=== PATIENT | male | born 1960 | race Caucasian/White ===

== ENCOUNTER 2016-11-15 08:43 | Inpatient (IN) | payer OTHER ==
[~2016-11-15] VITALS: Ht 203.2 cm; Wt 170.2 kg
[2016-11-15] MEDS ORDERED: ALBUTEROL 0.083% NEBU SOLN 3 ML VIAL INH STA (09:38)
[2016-11-15] MEDS ORDERED: ALBUT/IPRATROP 3MG/0.5MG NEB 3 ML VIAL INH STA (09:50)
[2016-11-15] MEDS ORDERED: LVMI SC (10:02)
[2016-11-15] MEDS ORDERED: NXM/40 PO (10:02)
[2016-11-15] MEDS ORDERED: LISI20TA3 PO (10:02)
[2016-11-15] MEDS ORDERED: SUCR1TAB29 PO (10:02)
[2016-11-15] MEDS ORDERED: APIX1TAB PO (10:02)
[2016-11-15] MEDS ORDERED: ASPI81TA28 PO (10:02)
[2016-11-15] MEDS ORDERED: NIFE60TA57 PO (10:02)
[2016-11-15] MEDS ORDERED: MELATAB2 PO (10:02)
[2016-11-15] MEDS ORDERED: POTA10CA28 PO (10:02)
[2016-11-15] MEDS ORDERED: NTRGSL/4 UT (10:02)
[2016-11-15] MEDS ORDERED: PREG1CAP70 PO (10:02)
[2016-11-15] MEDS ORDERED: ACET30TA PO (10:02)
[2016-11-15] MEDS ORDERED: NVLGI/PEN SQ (10:02)
[2016-11-15] MEDS ORDERED: FRS/40 PO (10:02)
[2016-11-15] MEDS ORDERED: METO50TA16 PO (10:02)
[2016-11-15] MEDS ORDERED: FURO80TA63 PO (10:02)
--- NOTE | 2016-11-15 10:08 | DIAGNOSTIC IMAGING REPORT ---
CHEST ONE VIEW PORTABLE CLINICAL HISTORY: Respiratory distress COMPARISON STUDY: No previous studies for comparison. FINDINGS: The heart is enlarged. There is mild pulmonary vascular congestion. There is a left subclavian pacer/defibrillator. There is no lobar consolidation. There is no significant pleural fluid.[ IMPRESSION: Cardiomegaly and radiographic evidence of pulmonary vascular congestion. Electronically signed by: Richard Byrd M.D. 11/15/2016 10:07 AM Dictated Date/Time: 11/15/2016 10:06 AM
[2016-11-15 10:19] LABS: BASO ABS # 0.04 K/uL (0-0.2); COMPLETE YES; HEMATOCRIT 30.8 % (42-52); LYMPH % 24.6 %; LYMPH ABS # 0.99 K/uL (1.2-3.4); MEAN CELL VOLUME 84.8 fL (80-100); MEAN CORPUSCULAR HGB CONC 31.8 g/dl (32-36); MEAN PLATELET VOLUME 9.7 fL (7.4-10.4); MONO % 16.4 %; PLATELET COUNT 219 K/uL (130-400); RED BLOOD COUNT 3.63 M/uL (4.7-6.1); WHITE BLOOD COUNT 4.02 K/uL (4.8-10.8)
[2016-11-15 10:29] LABS: INR 1.1 (0.9-1.1); PARTIAL THROMBOPLASTIN RATIO 1.2; PROTHROMBIN TIME (PATIENT) 11.8 SECONDS (9.0-12.0)
[2016-11-15 10:31] LABS: ALT/SGPT 13 U/L (12-78); BLOOD UREA NITROGEN 67 mg/dl (7-18); BUN/CREATININE RATIO 26.7 (10-20); CALCIUM 8.2 mg/dl (8.5-10.1); CARBON DIOXIDE 25 mmol/L (21-32); CHLORIDE 102 mmol/L (98-107); GLUCOSE 93 mg/dl (70-99); POTASSIUM 4.2 mmol/L (3.5-5.1); SODIUM 137 mmol/L (136-145)
[2016-11-15 10:36] LABS: ALB/GLOB RATIO 0.5 (0.9-2); ALKALINE PHOSPHATASE 151 U/L (45-117); AST/SGOT 20 U/L (15-37)
[2016-11-15 11:49] LABS: VEN BLD GAS O2 SATURATION 88.1 %; VEN BLOOD GAS BASE EXCESS 0.1 mmol/L
--- NOTE | 2016-11-15 12:35 | DIAGNOSTIC IMAGING REPORT ---
BILATERAL LOWER EXTREMITY VENOUS DOPPLER HISTORY: Bilateral leg swelling COMPARISON STUDY: None. FINDINGS: Near occlusive thrombus seen within the right common femoral and right superficial femoral veins. The right popliteal vein appears patent. Broken flow identified within the right posterior tibial and peroneal vein suggesting additional sites of thrombus. No DVT within the left lower extremity. IMPRESSION: 1. Right lower extremity DVT as described above. 2. No left lower extremity DVT. Electronically signed by: Kike Shelton M.D. 11/15/2016 12:33 PM Dictated Date/Time: 11/15/2016 12:32 PM
[2016-11-15] MEDS ORDERED: LIDOCAINE HCL 2% JELLY 30 ML TUBE EXT ONE (12:57)
[2016-11-15] MEDS ORDERED: ACETAMINOPHEN 325 MG TAB PO PRN (13:00)
[2016-11-15] MEDS ORDERED: PNEUMOCOCCAL POLYSACCHARIDES 25 MCG/0.5 ML VIAL/SYR IM. ONE (13:00)
[2016-11-15] MEDS ORDERED: NITROGLYCERIN 0.4 MG SL PER TAB CHARGE UT PRN (13:00)
[2016-11-15] MEDS ORDERED: INFLUENZA VIRUS QUAD VACCINE 0.5 ML SYR IM. ONE (13:00)
[2016-11-15] MEDS ORDERED: MAGNESIUM HYDROXIDE SUSP 30 ML UDC PO PRN (13:00)
[2016-11-15] MEDS ORDERED: ONDANSETRON INJ 2 MG/ML 2 ML VIAL IV PRN (13:00)
[2016-11-15] MEDS ORDERED: HEPARIN 25000 UNIT/500 ML D5W ONE (13:37)
[2016-11-15] MEDS ORDERED: HEPARIN SOD 5000 UNIT/0.5 ML CARP ONE (13:37)
[2016-11-15] MEDS: SUCRALFATE 1 GM TAB PO SCH ×2 (14:00→21:44)
[2016-11-15] MEDS ORDERED: INSULIN ASPART 100 UNITS/ML 3 ML PEN SQ SCH (14:00)
[2016-11-15] MEDS ORDERED: PHARMACY GLYCEMIC MGMT CONSULT PRN (14:00)
[2016-11-15] MEDS ORDERED: GLUCOSE 10 TABS/TUBE PO PRN (14:15)
[2016-11-15] MEDS ORDERED: GLUCOSE 40% GEL 15 GM TUBE PO PRN (14:15)
[2016-11-15] MEDS ORDERED: GLUCAGON FOR INJ 1 MG VIAL SQ PRN (14:15)
[2016-11-15] MEDS ORDERED: DEXTROSE 50% 50 ML SYR IV PRN (14:15)
--- NOTE | 2016-11-15 15:04 | HISTORY & PHYSICAL EXAMINATION ---
DATE OF ADMISSION: 11/15/2016 CHIEF COMPLAINT: Shortness of breath. ADMITTING DIAGNOSES: 1. Acute on chronic systolic heart failure. 2. Extensive right leg deep venous thrombosis. HISTORY OF PRESENT ILLNESS: Mr. Perez's first visit to our facility, comes in as undersigned from [facility]. He reportedly has a significant history of chronic systolic heart failure with cardiomyopathy and AICD placement with chronic venous stasis dermatitis of the lower extremities and previous thrombophilia with a DVT and PE. He currently is on renally dosed Xarelto therapy. He presents with increased shortness of breath and found to have acute systolic heart failure and an extensive right lower extremity DVT. He is recommended for admission to help improve his symptoms. In the ER, he was having difficulty voiding and a Vivas catheter was placed. He has been at [facility] trying to improve his strength. He is a very tall gentleman, but he also has a BMI of 41. He has massive lower extremity edema with open weeping wounds, makes his ambulation challenging. PAST MEDICAL HISTORY: Asthma, heart failure as mentioned with AICD, dermatitis, chronic kidney disease stage III, ischemic cardiomyopathy, atrial fibrillation and pulmonary embolism. MEDICATIONS: Codeine as needed, Eliquis 2.5 b.i.d., aspirin 81 a day, Lipitor 40 a day, Coreg 25 b.i.d., but he has also listed metoprolol 50 b.i.d. The patient cannot tell me anything about his own medicines. Nexium 40 a day, Lasix 80 b.i.d., Levemir 35 units subQ q. 12, aspartate insulin 15 with meals, lisinopril 20 a day, nifedipine 60 a day, potassium 10 b.i.d., Lyrica 150 b.i.d., Senokot 2 tablets b.i.d., Carafate 1 gram t.i.d., ursodiol twice a day, and venlafaxine 75. SOCIAL HISTORY: The patient does have a smoking history. He quit years ago, he says. Does not drink alcohol. FAMILY HISTORY: He says is positive for mother with heart problems. He cannot provide details such as that. REVIEW OF SYSTEMS: The patient is markedly fatigued in dyskinetic. His legs are painful. There is scaliness in open areas to his legs which weep liquid. He is having suprapubic tenderness right now and he has had marked constipation for the last few days. Otherwise, 10 systems were reviewed and are negative. PHYSICAL EXAMINATION: GENERAL: He is a robust gentleman in some distress. VITAL SIGNS: His temperature is 36.5; his pulse is 61; respiration rate 20; BP 125/91; O2 sat 96% on 2 liters, it was 89% on room air. HEENT: PERRL, EOMI. Oropharynx has dry mucous membranes. NECK: Without lymphadenopathy. Trachea is midline. HEART: Distant sounds to be regular, he had no murmurs. LUNGS: Have basilar crackles, which are at the very bases, they do clear with deep inspiration. ABDOMEN: Protuberant, normoactive bowel sounds, soft. He has got suprapubic tenderness. EXTREMITIES: Massively swollen and erythematous to the inguinal fold. He states his right leg is larger than usual, both are very big. There may be some subtle differences in swelling to the right leg compared to the left. He has open areas on the right leg at the size of a dime or quarter, it varies areas that are leaking some clear serous fluid. He got marked onychomycosis to his feet and tinea to his feet. NEUROLOGIC: He is awake, alert and appropriate. Cranial nerves II-XII are intact. He can move his arms easily but his legs are still massively swollen and difficult to move. LABORATORY DATA: White count of 4, H\T\H 9.8 and 30.8, platelet count 219, BUN and creatinine 67 and 2.5, potassium 4.2, bicarb is 25. EKG shows a paced ventricular rhythm. His chest x-ray looks like mild congestive changes and a Doppler ultrasound shows an extensive clot in his right lower extremity. PLAN: 1. The patient is in mild acute systolic heart failure given his ischemic cardiomyopathy. We will to get old records to determine the degree of ventricular dysfunction. We will change his Lasix to 80 b.i.d. We will maintain his lisinopril at 20 a day, unless his renal function would worsen. 2. Regarding his extensive DVT, he is on renally dosed Eliquis. We will consult Dr. Gomes to determine if this is a Eliquis failure given the fact that it is renally dosed. We will however heparinize him fully at this point in time, and make determinations on the best long-term anticoagulate in the future, both for his atrial fibrillation. 3. Regarding his cardiac disease as mentioned, he is on 2 beta blockers on his list, he cannot tell me why. We will maintain both of them at this present time unless he has overt problems with hypotension. He does have a pacemaker to prevent bradycardia from happening. We will maintain his aspirin and Lipitor as mentioned. We will continue his lisinopril but we will hold his nifedipine as this may be exacerbating some of his lower extremity edema. He cannot once again recall why he is on those medications. 4. Regarding his diabetes, he will be placed on a diabetic diet. He will be placed on sliding scale. We will check an A1c. We will continue his Levemir and his aspartate as mentioned with meals. He likely has insulin resistance, given his size. 5. For peptic ulcer disease, although this is is not listed, he is on a PPI and Carafate. These will be maintained. 6. Regarding his constipation, we will continue his senna with MiraLax in addition. 7. Regarding his difficulty urinating and suprapubic tenderness, we will send a urine culture and a Vivas catheter will be placed. 8. Regarding his poor skin condition of his lower legs, we will get a wound care nurse consult. 9. DVT prevention is full dose heparin.
--- NOTE | 2016-11-15 15:35 | Pharmacy Progress Note ---
Glycemic Control Intl Consult Date of Service Nov 15, 2016. Scope Glycemic Pharmacist consulted by Dr Barboza on 11/15/16 for glycemic control and to write orders per [facility] inpatient glycemic control protocol Objective Weight (Kilograms): 170.200 Accuchecks BSG (last 24hrs): Test 11/15/16 09:55 Random Glucose 93 mg/dl (70-99) Laboratory Data (last 24hrs) Test 11/15/16 09:55 Anion Gap 10.0 mmol/L BUN/Creatinine Ratio 26.7 Blood Urea Nitrogen 67 mg/dl Creatinine 2.50 mg/dl Potassium Level 4.2 mmol/L Sodium Level 137 mmol/L White Blood Count 4.02 K/uL Red Blood Count 3.63 M/uL Hemoglobin 9.8 g/dL Hematocrit 30.8 % Mean Corpuscular Volume 84.8 fL Mean Corpuscular Hemoglobin 27.0 pg Mean Corpuscular Hemoglobin Concent 31.8 g/dl Platelet Count 219 K/uL Mean Platelet Volume 9.7 fL Neutrophils (%) (Auto) 48.0 % Lymphocytes (%) (Auto) 24.6 % Monocytes (%) (Auto) 16.4 % Eosinophils (%) (Auto) 10.0 % Basophils (%) (Auto) 1.0 % Neutrophils # (Auto) 1.93 K/uL Lymphocytes # (Auto) 0.99 K/uL Monocytes # (Auto) 0.66 K/uL Eosinophils # (Auto) 0.40 K/uL Basophils # (Auto) 0.04 K/uL Recent Pertinent Medications Outpatient Anti-diabetic Regimen: At home: * Novolog 15 units with meals * Levemir 35 units q12h At [facility]: * Novolog 7 units w/ meals + sliding scale * Lantus (substituted for Levemir) 25 units q12h Risk Factors for Insulin Resistance: * IVF: heparin drip mixed in dextrose * Diet: type 2 diabetes diet ordered Assessment & Plan ASSESSMENT: * ADA & AACE recommend a goal blood sugar range 140-180 mg/dl for the majority of critically ill & non-critically ill patients. However, more stringent targets may be selected in individual cases. 11/15/16 * Mr. Perez is admitted today from [facility] rehab with shortness of breath * Information regarding insulin doses was not too clear so I spoke with a nurse at [facility] to obtain further information * Patient was having frequent lows at all times of the day (50s and 60s at times) so the Lantus was reduced over time to 25 units q12h, Novolog was also reduced from 15 units w/ meals to 7 units w/ meals * I confirmed that the pt did not receive his Lantus this AM but received a total of 50 units yesterday * BSG this AM was 93 and no major stressors are on board at this time * Will base initial insulin dosing off of est total daily dose of ~70 units, giving more Levemir tonight since he did not have any yet today and then splitting BID from tomorrow AM PLAN FOR INPATIENT GLYCEMIC CONTROL: * Basal insulin with LEVEMIR 35 units x 1 tonight, then 18 units BID from tomorrow AM * Utilizing Levemir as patient is on this at home * Correctional Insulin with NOVOLOG per scale ACHS + 0200 for an overnight check in case BSG becomes significantly elevated * Goal Range: Low 120 mg/dL - High 150 mg/dL (more stringent target for patient's age) * Correction Factor: 20 mg/dL/unit * Prandial insulin per carb ratio of 1 unit per 8 grams CHO consumed * Please note that the plan above was derived based on current level of insulin resistance and hospital stress. These recommendations are appropriate for inpatient admission only. Plan of care upon discharge will need to be reassessed to avoid potential outpatient hypo/hyperglycemia. Thank you.
[2016-11-15] MEDS ORDERED: MoRPHine SULFATE 4 MG/ML 1 ML CARP\\VIAL IV ONE (16:00)
[2016-11-15] MEDS ORDERED: NURSING VERBAL MED ORDER ONE (16:00)
--- NOTE | 2016-11-15 17:14 | EMERGENCY ROOM VISIT NOTE ---
History Report prepared by Jesus: Jono Gong Under the Supervision of: Dr. Umberto Shepherd D.O. First contact with patient: 09:19 Chief Complaint: RESPIRATORY PROBLEMS Stated Complaint: SHORTNESS OF BREATH History of Present Illness The patient is a 56 year old male who presents to the Emergency Room with complaints of persistent chest pain that started a couple days ago. He notes that the pain started off as a sharp pain, and the pain is mostly with breathing. The patient also complains of shortness of breath. He cannot remember having chest pain like this before. The patient has a history of asthma and systolic congestive heart failure. He has a pacemaker and defibrillator. The patient is not normally on oxygen, and he is from [facility]. He has open sores and swelling on both legs. The patient says that the swelling is actually less than it usually is. However, his legs are darker than normal. His legs are chronically numb below the knees. His last bowel movement was 2 days ago. The patient has a history of heart attacks and blood clots. He also has stage 3 kidney disease, ischemic cardiomyopathy, and atrial fibrillation. He is on Xarelto and he states that he has not missed any doses. The patient is also being treated for bronchitis with Doxycycline currently. The patient states that his symptoms for the past couple days feel different than any other previous heart attacks or blood clots. He was a never-smoker. Per [facility], the patient's baseline creatinine is 2.2. The patient has gained 7 pounds in the past 2 days, and he has a remote history of pulmonary emboli. Source of History: patient Onset: A couple days ago Position: chest Quality: sharp Timing: other (persistent) Modifying Factors (Worsening): breathing Associated Symptoms: + SOB Note: Associated symptoms: Both legs darker than normal. Recent weight gain of 7 pounds in last 2 days. Review of Systems See HPI for pertinent positives & negatives. A total of 10 systems reviewed and were otherwise negative. Past Medical & Surgical Medical Problems: (1) Afib (2) Heart attack (3) Ischemic cardiomyopathy (4) Pulmonary embolism (5) Right leg DVT (6) Stage 3 chronic kidney disease Family History No pertinent family history Social History Smoking Status: Never Smoker Marital Status: Housing Status: assisted living ([facility]) Occupation Status: disabled Current/Historical Medications Scheduled Acetaminophen W/ Codeine (Codeine/Acetaminophen), 1 TAB PO Q6 Apixaban (Eliquis), 2.5 MG PO BID Aspirin (Aspirin Ec), 81 MG PO DAILY Atorvastatin (Lipitor), 40 MG PO HS Carvedilol (Coreg), 25 MG PO BID Esomeprazole Magnesium (Nexium), 40 MG PO DAILY Furosemide (Lasix), 1 TAB PO BID Furosemide (Lasix), 40 MG PO DAILY Insulin Aspart (Novolog Flexpen), 15 UNITS SQ TID Insulin Detemir (Levemir), 35 UNITS SC Q12 Lisinopril (Prinivil), 20 MG PO DAILY Melatonin (Melatonin Maximum Strengt), 1 TAB PO HS Metoprolol Tartrate (Lopressor) (Lopressor), 50 MG PO BID Nifedipine Ext Rel (Procardia Xl Ext Rel), 60 MG PO DAILY Nitroglycerin (Nitrostat), 0.4 MG UT PRN Potassium Chloride (Micro-K Ext Rel), 10 MEQ PO BID Pregabalin (Lyrica), 150 MG PO BID Sennosides-Docusate Sodium (Sennalax-S), 2 TABS PO BID Sucralfate (Carafate), 1 TAB PO TID Ursodiol (Ursodiol), 1 CAP PO BID Venlafaxine Hcl (Venlafaxine Extended Rel), 75 MG PO DAILY Allergies Coded Allergies: Penicillins (Unverified Allergy, Unknown, unknown, 11/15/16) Physical Exam Vital Signs Date Time Temp Pulse Resp B/P Pulse Ox O2 Delivery O2 Flow Rate FiO2 11/15/16 16:28 65 14 142/80 97 Nasal Cannula 2.0 11/15/16 15:14 64 18 155/100 94 Nasal Cannula 2.0 11/15/16 13:50 63 16 140/73 96 Nasal Cannula 2.0 11/15/16 12:25 61 11/15/16 12:20 61 20 125/91 96 Nasal Cannula 2.0 11/15/16 10:46 61 18 124/76 96 Nasal Cannula 2.0 11/15/16 09:46 60 24 128/73 96 Nasal Cannula 2.0 11/15/16 09:13 89 Room Air 11/15/16 09:05 89 Room Air 11/15/16 08:54 62 11/15/16 08:45 4 Nasal Cannula 11/15/16 08:45 36.5 66 18 119/61 89 Room Air Physical Exam GENERAL: morbidly obese, chronically ill-appearing, sitting up in bed, disheveled on nasal cannula EYE EXAM: normal conjunctiva OROPHARYNX: no exudate, no erythema, lips, buccal mucosa, and tongue normal and mucous membranes are moist NECK: supple, no nuchal rigidity, no adenopathy, non-tender LUNGS: diffuse wheezing bilaterally HEART: no murmurs, S1 normal and S2 normal, pacemaker located in left chest wall ABDOMEN: abdomen soft, non-tender, normo-active bowel sounds, no masses, no rebound or guarding. Old abdominal incisions, well-healed. BACK: Back is symmetrical on inspection and there is no deformity, no midline tenderness, no CVA tenderness. SKIN: no rashes and no bruising UPPER EXTREMITIES: upper extremities are grossly normal. LOWER EXTREMITIES: Diffuse pitting edema tracking out to buttocks. Minimal flexions in hips. Pulses in bilateral legs intact. NEURO EXAM: Normal sensorium, cranial nerves II-XII grossly intact, normal speech, no gross weakness of arms, no gross weakness of legs. No drift. Finger to nose intact. Gross sensation intact. Medical Decision & Procedures ER Provider Diagnostic Interpretation: Xray results per the radiologist and my interpretation. Other results have been interpreted by the radiologist and reviewed by me. CHEST ONE VIEW PORTABLE CLINICAL HISTORY: Respiratory distress COMPARISON STUDY: No previous studies for comparison. FINDINGS: The heart is enlarged. There is mild pulmonary vascular congestion. There is a left subclavian pacer/defibrillator. There is no lobar consolidation. There is no significant pleural fluid.[ IMPRESSION: Cardiomegaly and radiographic evidence of pulmonary vascular congestion. Electronically signed by: Richard Byrd M.D. 11/15/2016 10:07 AM Dictated Date/Time: 11/15/2016 10:06 AM BILATERAL LOWER EXTREMITY VENOUS DOPPLER HISTORY: Bilateral leg swelling COMPARISON STUDY: None. FINDINGS: Near occlusive thrombus seen within the right common femoral and right superficial femoral veins. The right popliteal vein appears patent. Broken flow identified within the right posterior tibial and peroneal vein suggesting additional sites of thrombus. No DVT within the left lower extremity. IMPRESSION: 1. Right lower extremity DVT as described above. 2. No left lower extremity DVT. Electronically signed by: Kike Shelton M.D. 11/15/2016 12:33 PM Dictated Date/Time: 11/15/2016 12:32 PM Laboratory Results 11/15/16 09:55 Red Blood Count 3.63, Mean Corpuscular Volume 84.8, Mean Corpuscular Hemoglobin 27.0, Mean Corpuscular Hemoglobin Concent 31.8, Mean Platelet Volume 9.7, Neutrophils (%) (Auto) 48.0, Lymphocytes (%) (Auto) 24.6, Monocytes (%) (Auto) 16.4, Eosinophils (%) (Auto) 10.0, Basophils (%) (Auto) 1.0, Neutrophils # (Auto ) 1.93, Lymphocytes # (Auto) 0.99, Monocytes # (Auto) 0.66, Eosinophils # (Auto ) 0.40, Basophils # (Auto) 0.04 11/15/16 09:55 Test 11/15/16 09:55 11/15/16 10:45 11/15/16 11:40 White Blood Count 4.02 K/uL (4.8-10.8) Red Blood Count 3.63 M/uL (4.7-6.1) Hemoglobin 9.8 g/dL (14.0-18.0) Hematocrit 30.8 % (42-52) Mean Corpuscular Volume 84.8 fL (80-100) Mean Corpuscular Hemoglobin 27.0 pg (25-34) Mean Corpuscular Hemoglobin Concent 31.8 g/dl (32-36) Platelet Count 219 K/uL (130-400) Mean Platelet Volume 9.7 fL (7.4-10.4) Neutrophils (%) (Auto) 48.0 % Lymphocytes (%) (Auto) 24.6 % Monocytes (%) (Auto) 16.4 % Eosinophils (%) (Auto) 10.0 % Basophils (%) (Auto) 1.0 % Neutrophils # (Auto) 1.93 K/uL (1.4-6.5) Lymphocytes # (Auto) 0.99 K/uL (1.2-3.4) Monocytes # (Auto) 0.66 K/uL (0.11-0.59) Eosinophils # (Auto) 0.40 K/uL (0-0.5) Basophils # (Auto) 0.04 K/uL (0-0.2) RDW Standard Deviation 51.0 fL (36.4-46.3) RDW Coefficient of Variation 16.2 % (11.5-14.5) Immature Granulocyte % (Auto) 0.0 % Immature Granulocyte # (Auto) 0.00 K/uL (0.00-0.02) Prothrombin Time 11.8 SECONDS (9.0-12.0) Prothromb Time International Ratio 1.1 (0.9-1.1) Activated Partial Thromboplast Time 30.1 SECONDS (21.0-31.0) Partial Thromboplastin Ratio 1.2 Anion Gap 10.0 mmol/L (3-11) Est Creatinine Clear Calc Drug Dose 58.0 ml/min Estimated GFR () 31.8 Estimated GFR (Non- 27.5 BUN/Creatinine Ratio 26.7 (10-20) Calcium Level 8.2 mg/dl (8.5-10.1) Total Bilirubin 0.4 mg/dl (0.2-1) Aspartate Amino Transf (AST/SGOT) 20 U/L (15-37) Alanine Aminotransferase (ALT/SGPT) 13 U/L (12-78) Alkaline Phosphatase 151 U/L (45-117) Troponin I < 0.015 ng/ml (0-0.045) Pro-B-Type Natriuretic Peptide 5218 pg/ml (0-900) Total Protein 7.7 gm/dl (6.4-8.2) Albumin 2.7 gm/dl (3.4-5.0) Globulin 5.0 gm/dl (2.5-4.0) Albumin/Globulin Ratio 0.5 (0.9-2) Influenza Type A Antigen Neg for Influ A (NEG) Influenza Type B Antigen Neg for Influ B (NEG) Venous Blood pH 7.34 (7.36-7.41) Venous Blood Partial Pressure CO2 49 mmHg (38.0-50.0) Venous Blood Partial Pressure O2 59 mmHg Venous Blood HCO3 26 mmol/L Venous Blood Oxygen Saturation 88.1 % Venous Blood Base Excess 0.1 mmol/L Laboratory results per my review. Medications Administered Medications (Trade) Dose Ordered Sig/Miguel Route Start Time Stop Time Status Last Admin Dose Admin Albuterol Sulfate (Ventolin 0.083% 2.5MG/3ML Neb) 2.5 mg NOW STAT INH 4/4/17 09:38 11/15/16 09:40 DC 11/15/16 09:45 2.5 MG Albuterol/ Ipratropium (Duoneb) 3 ml NOW STAT INH 11/15/16 09:50 11/15/16 09:51 DC 11/15/16 10:25 3 ML Lidocaine HCl (Xylocaine Jelly 2%) 30 ml STK-MED ONCE EXT 11/15/16 12:57 11/15/16 12:58 DC 11/15/16 12:57 30 ML Heparin Sodium/ Dextrose (Heparin 25,000 Unit/500ml D5W) 25,000 unit STK-MED ONCE .ROUTE 11/15/16 13:37 11/15/16 13:38 DC 11/15/16 13:45 25,000 UNIT Heparin Sodium (Porcine) (Heparin Sq 5000 Unit/0.5ml) 10,000 unit STK-MED ONCE .ROUTE 11/15/16 13:37 11/15/16 13:38 DC 11/15/16 13:43 10,000 UNIT Morphine Sulfate (MoRPHine SULFATE INJ) 4 mg NOW ONCE IV 11/15/16 16:00 11/15/16 16:01 DC 11/15/16 16:03 4 MG ECG Indication: chest pain Rate (beats per minute): 60 Rhythm: other (ventricular paced) Findings: LBBB, left axis deviation Comparison ECG Date: no prior available ED Course ED COURSE: Vital signs were reviewed and showed hypoxic vitals. The patients medical record was reviewed The above diagnostic studies were performed and reviewed. ED treatments and interventions as stated above. 0926: The patient was evaluated in room A12B. A complete history and physical examination was performed. 0938: Ordered Ventolin 0.083% 2.5MG/3ML Neb 2.5 mg INH. 0950: Ordered Duoneb 3 ml INH. 1121: I reevaluated and updated the patient. 1225: Ordered Heparin Sodium/Dextrose 1 ea N/A. 1244: Upon reevaluation, the patient is sitting up in bed.I discussed my findings with the patient and he understands and agrees with the treatment plan. Based on the patients age, coexisting illnesses, exam and lab findings the decision to treat as an inpatient was made. The patient remained stable while under my care. The patient will be evaluated for further management. 1245: I reviewed the patient's case with Dr. Tamra CHRISTIAN hospitalist. He will evaluate the patient for further management. Medical Decision Differential diagnoses includes but is not limited to acute coronary syndrome, myocardial infarction, pericarditis, pulmonary embolus, aortic dissection, pneumonia, pneumothorax, musculoskeletal, shingles, esophageal. Patient is a 56-year-old male who presents the ER for shortness of breath. Patient has a remote history of asthma. Upon presentation he is hypoxic at 88% . He is placed on nasal cannula. Shows a mild anemia at 10. Labs are remarkable for an elevated creatinine of 2.5. BMP was elevated at 5000. He has diffuse pitting edema on exam. Influenza AB were negative. Doppler of the right lower extremity shows extensive clot. He is currently on anticoagulation Xa inhibitor. He has not missed any doses. Unable to CT PE with his pleuritic chest pain since he has an elevated creatinine. Placed him on IV heparin bolus and drip. I do favor this is multifactorial likely a combination of CHF and possibly PEs. Discussed with vascular surgery and internal medicine. He was admitted for further workup and may need possible IVC filter. Consults Time Called: -- Consulting Physician: Dr. Tamra CHRISTIAN hospitalist Returned Call: [phone] I reviewed the patient's case with Dr. Tamra CHRISTIAN hospitalist. He will evaluate the patient for further management. Impression Primary Impression: Hypoxia Additional Impressions: Deep vein thrombosis CHF (congestive heart failure) Anemia Scribe Attestation The scribe's documentation has been prepared under my direction and personally reviewed by me in its entirety. I confirm that the note above accurately reflects all work, treatment, procedures, and medical decision making performed by me. Departure Information Dispostion Being Evaluated By Hospitalist Referrals [facility] (PCP) Patient Instructions My [facility] Problem Qualifiers Additional Impressions: Deep vein thrombosis DVT location: lower extremity Affected thrombotic vein of extremity: unspecified vein of extremity Laterality: right Chronicity: acute Qualified Codes: I82.401 - Acute embolism and thrombosis of unspecified deep veins of right lower extremity CHF (congestive heart failure) Congestive heart failure type: unspecified congestive heart failure type Congestive heart failure chronicity: acute Qualified Codes: I50.9 - Heart failure, unspecified
[2016-11-15 17:50] VITALS: BP 142/84; PULSE 64; TEMP 34.6; O2SAT 100
[2016-11-15] MEDS ORDERED: INFLUENZA ADMINISTRATION CHARGE ONE (18:15)
[2016-11-15] MEDS ORDERED: PNEUMOCOCCAL ADMINISTRATION CHARGE ONE (18:15)
[2016-11-15 18:32] VITALS: Ht 203.2 cm; Wt 170.2 kg
[2016-11-15] MEDS: INSULIN ASPART 100 UNITS/ML 3 ML PEN SC SCH ×2 (19:16→21:00)
[2016-11-15] MEDS: FUROSEMIDE INJ 80 MG in SYRINGE 0 ML IV SCH (19:20)
[2016-11-15 20:20] LABS: PARTIAL THROMBOPLASTIN RATIO 2.5
[2016-11-15] MEDS ORDERED: INSULIN DETEMIR FLEXPEN/FLEX TOUCH 100 UNITS/ML 3ML SC SCH (21:00)
[2016-11-15] MEDS: METOPROLOL TARTRATE 50 MG TAB PO SCH (21:44)
[2016-11-15] MEDS: POTASSIUM CHLORIDE 10 MEQ TABCR PO SCH (21:44)
[2016-11-15] MEDS: CARVEDILOL 25 MG TAB PO SCH (21:44)
[2016-11-15] MEDS: URSODIOL 300 MG CAP PO SCH (21:45)
[2016-11-15] MEDS: ATORVASTATIN 40 MG TAB PO SCH (21:45)
[2016-11-15] MEDS: PREGABALIN 150 MG CAP PO SCH (21:45)
[2016-11-15] MEDS: DOCUSATE SODIUM/SENNA 50/8.6MG TAB PO SCH (21:45)
[2016-11-15] MEDS: MoRPHine SULFATE 2 MG/ML CARP IV PRN (22:02)
[2016-11-15 22:57] LABS: URINE APPEARANCE CLEAR (CLEAR); URINE BILIRUBIN NEG (NEG); URINE COLOR YELLOW; URINE NITRITE NEG (NEG); URINE PH 5.5 (4.5-7.5); URINE SPECIFIC GRAVITY 1.008 (1.000-1.030); UROBILINOGEN NEG (NEG)
[2016-11-15 22:58] LABS: MANUAL MICROSCOPIC REQUIRED? YES; REVIEW REQ? NO
[2016-11-15 23:09] LABS: URINE BACTERIA 1+ (NEG)
[2016-11-15] MEDS: HEPARIN 25,000 UNIT/500ML D5W 500 ML IV PRN (23:15)
[2016-11-15 23:43] VITALS: BP 137/79; PULSE 61; TEMP 36.3; O2SAT 98
[2016-11-16] MEDS: HEPARIN 25,000 UNIT/500ML D5W 500 ML IV PRN ×3 (01:00→13:30)
[2016-11-16] MEDS ORDERED: INSULIN ASPART 100 UNITS/ML 3 ML PEN SC ONE (02:00)
[2016-11-16] MEDS ORDERED: COUGH DROP (SUGAR FREE) LOZ 24 LOZ/1 BOX ONE (02:06)
[2016-11-16] MEDS: FUROSEMIDE INJ 80 MG in SYRINGE 0 ML IV SCH ×2 (06:10→18:29)
[2016-11-16] MEDS: MoRPHine SULFATE 4 MG/ML 1 ML CARP\\VIAL IV PRN ×2 (06:19→12:04)
[2016-11-16 07:38] LABS: HEMATOCRIT 30.9 % (42-52); MEAN CELL VOLUME 86.3 fL (80-100); MEAN CORPUSCULAR HEMOGLOBIN 27.1 pg (25-34); MEAN CORPUSCULAR HGB CONC 31.4 g/dl (32-36); MEAN PLATELET VOLUME 10.2 fL (7.4-10.4); PLATELET COUNT 213 K/uL (130-400); RED BLOOD COUNT 3.58 M/uL (4.7-6.1); WHITE BLOOD COUNT 3.95 K/uL (4.8-10.8)
[2016-11-16 07:45] LABS: ESTIMATED AVERAGE GLUCOSE 166 mg/dl; HA1C FLAG Normal (Normal)
[2016-11-16 07:56] LABS: PARTIAL THROMBOPLASTIN RATIO 2.1
[2016-11-16 08:25] VITALS: BP 113/66; PULSE 63; TEMP 36.3; O2SAT 92
[2016-11-16 08:30] LABS: BUN/CREATININE RATIO 29.4 (10-20); CALCIUM 8.3 mg/dl (8.5-10.1); CREATININE 2.2 mg/dl (0.60-1.40); POTASSIUM 4.1 mmol/L (3.5-5.1)
--- NOTE | 2016-11-16 08:34 | Pharmacy Progress Note ---
Glycemic Control: Progress Nt Date of Service Nov 16, 2016. Scope Glycemic Pharmacist consulted by Dr Barboza on 11/15/16 for glycemic control and to write orders per [facility] inpatient glycemic control protocol. Objective Accuchecks BSG (last 24hrs): Test 11/15/16 09:55 11/15/16 18:26 11/15/16 21:54 11/16/16 01:53 Random Glucose 93 mg/dl (70-99) Bedside Glucose 99 mg/dl (70-99) 118 mg/dl (70-99) 90 mg/dl (70-99) Test 11/16/16 08:00 Bedside Glucose 83 mg/dl (70-99) HbA1c: Test 11/16/16 07:00 Hemoglobin A1c 7.4 % (4.5-5.6) H Recent Pertinent Medications Outpatient Anti-diabetic Regimen: At home: * Novolog 15 units with meals * Levemir 35 units q12h At [facility]: * Novolog 7 units w/ meals + sliding scale * Lantus (substituted for Levemir) 25 units q12h The patient is currently receiving: * Basal insulin: Levemir 35 units SQ x 1 dose 11/15/16 @ HS then Levemir 18 units SQ BID starting 11/16/16 AM * Correctional Insulin: Novolog Correction per scale ACHS Goal Range: Low 120 mg/dL - High 150 mg/dL Correction Factor: 20 mg/dL/unit * Prandial insulin: Per carb ratio of 1 unit per 8 grams CHO consumed Risk Factors for Insulin Resistance: * IVF/heparin infusion mixed in dextrose * Diet * Volume overload --> makes absorption of SQ insulin erratic Risk Factors for Insulin Sensitivity: * Renal impairment Assessment & Plan ASSESSMENT: 11/15/16 * Pt transferred to [facility] from [facility] rehab. Information regarding insulin doses was not too clear so [facility] spoke with a nurse at [facility] to obtain further information * Patient was having frequent lows at all times of the day (50s and 60s at times) so the Lantus was reduced over time to 25 units q12h, Novolog was also reduced from 15 units w/ meals to 7 units w/ meals * [facility] confirmed that the pt did not receive his Lantus 11/15/16 but did receive a total of 50 units NovoLog 11/14/16 * BSG below goal for inpatient targets on admission (BSG = 93mg/dl) and no major stressors are on board at this time. * Initial SQ basal bolus insulin regimen dosing based on total daily dose of ~ 70 units. Give loading dose/full 24h dose of Levemir 11/15/16 PM since he did not have any basal insulin given 11/15/16. Then, split Levemir BID 11/16/16 AM 11/16/16 * AM fasting BSG below goal range at 83mg/dl * Pt received full dose of Levemir (35 units) last evening. Pt uses 35 units SQ BID as an outpatient but has only been requiring 25 units BID (of Lantus) while at rehab hospital with frequent lows. Will hold Levemir this morning to prevent hypo. Continue basal insulin dosing of ~ 35units/day but split to 18 units SQ BID as patient is taking basal insulin BID as an outpatient. BID dosing more convenient and safe for rapid dose titrations. * A1c = 7.4% on 11/16/16 * Indicates adequate outpatient glycemic control. Patient is receiving reduced insulin doses at rehab hospital as compared to outpatient dosing (controlled diet/CHO?) * Outpatient regimen will depend on where pt D/C to PLAN FOR INPATIENT GLYCEMIC CONTROL: * HOLD Levemir this morning --> AM fasting BSG below goal range this morning @ 83mg/dl * Pt received Levemir 35units SQ x 1 dose 11/15/16 @ HS * Start Levemir 18 units SQ BID tonight @ HS * Utilizing Levemir as opposed to Lantus as patient is on this at home * LOOSEN NovoLog per scale ACHS * Goal Range: Low 120 mg/dL - High 150 mg/dL (more stringent target for patient's age) * Correction Factor: 30 mg/dL/unit (was 20) * Prandial insulin per carb ratio of 1 unit per 10 grams CHO consumed (was 8) * Add A1c to discharge instructions to be communicated to PCP * Please note that the plan above was derived based on current level of insulin resistance and hospital stress. These recommendations are appropriate for inpatient admission only. Plan of care upon discharge will need to be reassessed to avoid potential outpatient hypo/hyperglycemia. Thank you.
[2016-11-16] MEDS: PREGABALIN 150 MG CAP PO SCH ×2 (08:48→21:55)
[2016-11-16] MEDS: SUCRALFATE 1 GM TAB PO SCH ×3 (08:49→21:56)
[2016-11-16] MEDS: METOPROLOL TARTRATE 50 MG TAB PO SCH ×2 (08:49→21:58)
[2016-11-16] MEDS: VENLAFAXINE HCL XR 75 MG CAPXR PO SCH (08:49)
[2016-11-16] MEDS: DOCUSATE SODIUM/SENNA 50/8.6MG TAB PO SCH ×2 (08:49→21:59)
[2016-11-16] MEDS: LISINOPRIL 20 MG TAB PO SCH (08:50)
[2016-11-16] MEDS: CARVEDILOL 25 MG TAB PO SCH ×2 (08:50→21:58)
[2016-11-16] MEDS: URSODIOL 300 MG CAP PO SCH ×2 (08:50→21:56)
[2016-11-16] MEDS: PANTOprazole SOD 40 MG TAB PO SCH (08:50)
[2016-11-16] MEDS: ASPIRIN 81 MG ECTAB PO SCH (08:50)
[2016-11-16] MEDS: POTASSIUM CHLORIDE 10 MEQ TABCR PO SCH ×2 (08:51→21:58)
[2016-11-16] MEDS: POLYETHYLENE (MIRALAX) 17 GM PACK PO SCH (08:51)
[2016-11-16] MEDS ORDERED: INSULIN DETEMIR FLEXPEN/FLEX TOUCH 100 UNITS/ML 3ML SC SCH ×2 (09:00→21:00)
[2016-11-16] MEDS: INSULIN ASPART 100 UNITS/ML 3 ML PEN SC SCH ×4 (09:32→22:02)
--- NOTE | 2016-11-16 09:47 | Surgery Consultation ---
Consultation Date of Service Nov 16, 2016. Chief Complaint RLE DVT History of Present Illness The patient is a 56 year old male with multiple medical problems, admitted with acute systolic heart failure and RLE DVT, seen in consultation today for RLE DVT and possibly failing anticoagulation. Pt states he has been on anticoagulation of some sort since 2001 d/t atrial fib and DVT's. States in 2005 he had PE's and had an IVC filter inserted at [facility]. Never followed up to have it removed. Pt does not ambulate d/t chronic BLE pain and edema. Pt states his previous DVT's have mostly been in RLE, very few in LLE. Admits SOB , but states it is slightly improved from yesterday. Admits slightly worse BLE edema. Per staff at [facility], pt had approx 7 lbs weight gain over a few days. Pt denies BYRNES, fever, chills, chest pain, abd pain, N/V, rest pain, claudication(does not ambulate), other complaints. BLE venous US demonstrates mostly chronic DVT in RLE, although there does appear to be some areas of acute DVT. LLE neg for DVT. Vitals Vital Signs Past 12 Hours Date Time Temp Pulse Resp B/P Pulse Ox O2 Delivery O2 Flow Rate FiO2 11/16/16 08:25 36.3 63 20 113/66 92 Nasal Cannula 2.0 11/16/16 08:25 92 Nasal Cannula 2.0 11/16/16 01:30 Nasal Cannula 2.0 11/15/16 23:43 36.3 61 17 137/79 98 Nasal Cannula 2.0 Allergies Coded Allergies: Penicillins (Unverified Allergy, Unknown, unknown, 11/15/16) Home Medications Scheduled Acetaminophen W/ Codeine (Codeine/Acetaminophen), 1 TAB PO Q6 Apixaban (Eliquis), 2.5 MG PO BID Aspirin (Aspirin Ec), 81 MG PO DAILY Atorvastatin (Lipitor), 40 MG PO HS Carvedilol (Coreg), 25 MG PO BID Esomeprazole Magnesium (Nexium), 40 MG PO DAILY Furosemide (Lasix), 1 TAB PO BID Furosemide (Lasix), 40 MG PO DAILY Insulin Aspart (Novolog Flexpen), 15 UNITS SQ TID Insulin Detemir (Levemir), 35 UNITS SC Q12 Lisinopril (Prinivil), 20 MG PO DAILY Melatonin (Melatonin Maximum Strengt), 1 TAB PO HS Metoprolol Tartrate (Lopressor) (Lopressor), 50 MG PO BID Nifedipine Ext Rel (Procardia Xl Ext Rel), 60 MG PO DAILY Nitroglycerin (Nitrostat), 0.4 MG UT PRN Potassium Chloride (Micro-K Ext Rel), 10 MEQ PO BID Pregabalin (Lyrica), 150 MG PO BID Sennosides-Docusate Sodium (Sennalax-S), 2 TABS PO BID Sucralfate (Carafate), 1 TAB PO TID Ursodiol (Ursodiol), 1 CAP PO BID Venlafaxine Hcl (Venlafaxine Extended Rel), 75 MG PO DAILY Problem List Medical Problems: (1) Afib (2) Heart attack (3) Ischemic cardiomyopathy (4) Pulmonary embolism (5) Right leg DVT (6) Stage 3 chronic kidney disease Surgical / Medical History Hx Cardiac Surgery: Yes (AICD placement, IVC filters placed) Hx Abdominal Surgery: Yes (cholecystectomy) Hx Cancer Surgery: Yes (R eyelid ) Hx Thoracic Surgery: No Hx Orthopedic: Yes (spine surgery x2, hydrocephalus as , R ankle surgery ) Hx Urinary Tract Surgery: No HX Other Surgery: No Past Medical/Surgical History: CHF, Diabetes, Heart Disease, High Cholesterol, Hypertension, Kidney Disease Family History No pertinent family history + HTN and DMII Social History Smoking Status: Never Smoker Hx Alcohol Use - Type & Amnt: No Hx Substance Use -Type & Amnt: No Review of Systems Constitutional: + malaise, No chills, No fever Skin: No change in color Eyes: No visual changes ENMT: No sore throat Respiratory: + FIELDS, + orthopnea, + short of breath, No cough, No hemoptysis Cardiovascular: + edema, No chest pain, No chest pressure, No intermittent claudication, No palpitations, No syncope Gastrointestinal: No abdominal pain, No nausea, No vomiting Neurologic: + numbness, + tingling, No dizziness, No headache Physical Exam Constitutional: General Apperance: well-nourished, well-developed, obese Level of Distress: NAD, chronically ill Psychiatric: Mental Status: active & alert, normal mood, normal affect Orientation: oriented except where noted, to time, to place, to person Memory: recent memory normal, remote memory normal Head: normocephalic, atraumatic Eyes: EOM: EOMI ENMT: normal ENT inspection, hearing grossly normal, TMs normal, pharynx normal Neck: supple, trachea midline Lungs: Respiratory effort: no dyspnea Auscultation: no rales/crackles, no rhonchi, decreased breath sounds Cardiovascular: Apical Impulse: not displaced Heart Auscultation: no rubs, no gallops, pertinent finding (irregular) Peripheral Pulses: Pulses: full and equal, in all extremities except if noted Bruits: none appreciated Carotid Pulse: normal on the left, normal on the right Brachial Pulses: normal on the left, normal on the right Radial Pulse: normal on the left, normal on the right Femoral Pulse: normal on the left, normal on the right Posterior Tibialis Pulse: decreased on the left, decreased on the right Dorsalis Pedis Pulse: decreased on the left, decreased on the right Abdomen: Bowel Sounds: normal Inspection & Palpation: soft, non-distended, no tenderness, guarding & rebound Musculoskeletal: normal strength (5/5 throughout), normal tone Extremities: Upper Right: no cyanosis, no edema, no varicosities Upper Left: no cyanosis, no edema, no clubbing Lower Right: no cyanosis, no varicosities, edema Lower Left: no cyanosis, no varicosities, no palpable cord, edema Neurologic: Cranial Nerves: grossly intact Sensation: grossly intact Assessment and Plan ASSESSMENT and PLAN: DVT, possible failure eliquis Presence of IVC filter Pt already has IVC filter per pt. RLE DVT appears at least partially chronic and would not benefit from thrombolysis. Renal fxn precludes use of contrast for thrombolysis/venography. No vascular intervention recommended at this time. Further anticoagulation recs per primary team/Dr Gomes. Please call if needed.
[2016-11-16] MEDS ORDERED: NURSING DECISION MEDICATION ORDER SCH (12:15)
[2016-11-16 12:25] VITALS: BP 125/76; PULSE 66; TEMP 36.6; O2SAT 95
[2016-11-16] MEDS ORDERED: FUROSEMIDE 40 MG/4 ML VIAL IV STA (14:13)
[2016-11-16] MEDS ORDERED: FUROSEMIDE INJ 40 MG in SYRINGE 0 ML IV SCH (14:45)
[2016-11-16] MEDS: hydrOXYzine HCL 25 MG TAB PO PRN (14:50)
--- NOTE | 2016-11-16 15:57 | DIAGNOSTIC IMAGING REPORT ---
RIBS BILATERAL 8 VIEWS CLINICAL HISTORY: Bilateral rib pain COMPARISON STUDY: Chest x-ray dated 11/15/2016 FINDINGS: There is a left subclavian pacer/defibrillator present. No rib fractures are visualized. No destructive lesions are visualized on conventional radiographic imaging. There is no pneumothorax. IMPRESSION: No rib fractures identified. Electronically signed by: Richard Byrd M.D. 11/16/2016 3:55 PM Dictated Date/Time: 11/16/2016 3:54 PM
--- NOTE | 2016-11-16 15:59 | Medical Consult ---
Consultation Note Date of Service Nov 16, 2016. Consultation Note This is a 56 year old man with a complicated medical history, most notable for non-ischemic cardiomyopathy, chronic atrial fibrillation s/p Bi-V ICD insertion (2006 and 2012), and multiple episodes of blood clots with pulmonary emboli on at least one occassion (s/p fIVC filter placement at [facility]). He has been a rehabilitation patient at [facility] recently and was admitted to [facility] last PM with a diagnosis of extensive right lower extremity DVT. According to the patient, he was on warfarin for "years". He does not know who switched him to a newer agent or why, but at the time of a recent patient summary from [facility] dated 03/24/16, he was on 20 mg of rivaroxaban ( Xarelto) for "chronic afib". He believes that he was switched to apixaban ( Eliquis) during a more recent hospitalization at [facility]. He reports taking 5 mg twice daily, with no missed doses. The dose of 5 mg BID was confirmed by the pharmacy at [facility]. On review and comparison of his imaging studies, it does appear that he has chronic clot (as demonstrated by studies done at [facility] dated 04/02/16) in the right common femoral, profundus, and popliteal veins. His current clot is being read as located in the right common femoral, superficial femoral, and posterior tibial and peroneal veins. The latter locations appear to be new from the previous reads and likely represents new thrombosis. Given the new clot on full dose apixaban therapy, I consider this to be an apixaban failure. Since his doses were being administered at [facility], I do not believe compliance to be a complicating issue. While none of the clinical trials which resulted in the approval of DOACs excluded patients who were of "extreme weights", these patients were certainly not well represented in the clinical trial group. The pharmacokinetics and the effects of dosing in these populations is therefore less well established. For that reason, I use them judiciously in these populations. As far as choice of anticoagulants, his chronic renal insufficiency and weight would argue against the use of any DOAC. I would recommend beginning warfarin, 10 mg daily. According to his PCP, his last dose was 8 mg daily, however, given his history of compliance issues, this may be an overestimate of his needs. Daily INRs are indicated for now. I have discussed the case with the patient's primary care provider to make him aware of the situation and my determination in the matter.
[2016-11-16 16:10] VITALS: BP 142/75; PULSE 62; TEMP 35.8; O2SAT 93
--- NOTE | 2016-11-16 18:49 | Progress Note ---
Subjective Date of Service: Nov 16, 2016. Subjective Pt evaluation today including: conversation w/ patient, physical exam, chart review, lab review, review of studies, review of inpatient medication list ongoing R upper chest pain hurts more to breathe started fairly abruptly monday night ~2am. sat up and leaned forward and that helped some but didn't totally go away. R leg hurting more too - has chornic DVT there, but also wondered if new. ongoing edema. long standing cardiac hx. was at [facility] because he fell at home - wheelchair brake slipped and he went down - hurt R shoulder and back - does feel he's been getting better at [facility] but then SOB since monday Problem List Medical Problems: (1) Anemia Status: Acute (2) CHF (congestive heart failure) Status: Acute (3) Deep vein thrombosis Status: Acute (4) Hypoxia Status: Acute Review of Systems ros otherwise negative except for as above Objective Vital Signs Date Time Temp Pulse Resp B/P Pulse Ox O2 Delivery O2 Flow Rate FiO2 11/16/16 16:10 35.8 62 20 142/75 93 Nasal Cannula 2.0 11/16/16 12:25 36.6 66 18 125/76 95 Room Air 2.0 11/16/16 08:25 36.3 63 20 113/66 92 Nasal Cannula 2.0 11/16/16 08:25 92 Nasal Cannula 2.0 11/16/16 07:55 Nasal Cannula 2.0 11/16/16 01:30 Nasal Cannula 2.0 11/15/16 23:43 36.3 61 17 137/79 98 Nasal Cannula 2.0 Physical Exam General Appearance: no apparent distress Eyes: EOMI ENT: hearing grossly normal Neck: trachea midline Respiratory/Chest: no respiratory distress, no accessory muscle use, + decreased breath sounds, + wheezing (wet sounding wheeze R>L), + pertinent finding (R upper chest wall tender to palp) Cardiovascular: regular rate, rhythm (distnat), + pertinent finding (edema) Extremities: normal range of motion, + pedal edema Neurologic/Psychiatric: programmable logic controller assembler II-XII nml as tested, alert, normal mood/affect Skin: normal color, warm/dry Laboratory Results Last 24 Hours Test 11/15/16 19:55 11/15/16 21:54 11/15/16 22:15 11/16/16 01:53 Activated Partial Thromboplast Time 65.3 SECONDS Partial Thromboplastin Ratio 2.5 Bedside Glucose 118 mg/dl 90 mg/dl Urine Color YELLOW Urine Appearance CLEAR Urine pH 5.5 Urine Specific [place] 1.008 Urine Protein 2+ Urine Glucose (UA) NEG Urine Ketones NEG Urine Occult Blood 1+ Urine Nitrite NEG Urine Bilirubin NEG Urine Urobilinogen NEG Urine Leukocyte Esterase TRACE Urine RBC 5-10 /hpf Urine WBC 5-10 /hpf Urine Epithelial Cells 0-5 /lpf Urine Bacteria 1+ Test 11/16/16 07:00 11/16/16 08:00 11/16/16 12:08 11/16/16 17:10 White Blood Count 3.95 K/uL Red Blood Count 3.58 M/uL Hemoglobin 9.7 g/dL Hematocrit 30.9 % Mean Corpuscular Volume 86.3 fL Mean Corpuscular Hemoglobin 27.1 pg Mean Corpuscular Hemoglobin Concent 31.4 g/dl RDW Standard Deviation 51.5 fL RDW Coefficient of Variation 16.0 % Platelet Count 213 K/uL Mean Platelet Volume 10.2 fL Activated Partial Thromboplast Time 55.1 SECONDS Partial Thromboplastin Ratio 2.1 Sodium Level 142 mmol/L Potassium Level 4.1 mmol/L Chloride Level 104 mmol/L Carbon Dioxide Level 31 mmol/L Anion Gap 7.0 mmol/L Blood Urea Nitrogen 65 mg/dl Creatinine 2.20 mg/dl Est Creatinine Clear Calc Drug Dose 65.9 ml/min Estimated GFR () 37.2 Estimated GFR (Non- 32.1 BUN/Creatinine Ratio 29.4 Random Glucose 71 mg/dl Estimated Average Glucose 166 mg/dl Hemoglobin A1c 7.4 % Calcium Level 8.3 mg/dl Bedside Glucose 83 mg/dl 101 mg/dl 119 mg/dl Assessment and Plan SOB - likely multifactorial -acute decompensation of systolic CHF -probable PE acute CHF (acute on chronic systolic) -improving -additional 40mg lasix now -continue 80mg bid as ordered -follow BMP pleuritic type pain -given ongoing clotting hx and questionable efficacy w eliquis -- d/w pt ?eval further for PE -since fall - r/o rib fx. if negative, i would likely move to treat for PE regardless since he needs adequate anticoagulation for DVT -- d/w him VQ could be done if he felt compelled to have further +/- on PE but would not likely change treatment -cant' do CTA due to CKD extensive DVT -heparin -anticoag input appreciated - will resume warfarin cardiomyopathy -continue home meds, folow - decompensation treatment as above diabetes -await A1c -diabetic diet -sugars reasonable so far constipation, we will continue his senna with MiraLax in addition. urinary retention - cath drainage as necessary stasis dermatitis - wound nurse
[2016-11-16] MEDS: MoRPHine SULFATE 2 MG/ML CARP IV PRN (21:55)
[2016-11-16] MEDS: EUCERIN CR 120 GM JAR EXT SCH (21:56)
[2016-11-16] MEDS: ATORVASTATIN 40 MG TAB PO SCH (22:00)
[2016-11-16 23:05] VITALS: BP 120/74; PULSE 64; TEMP 37; O2SAT 92
[2016-11-17] MEDS: FUROSEMIDE INJ 80 MG in SYRINGE 0 ML IV SCH ×2 (06:31→18:14)
[2016-11-17 06:58] VITALS: BP 132/86; PULSE 63; TEMP 36.8; O2SAT 95
[2016-11-17] MEDS: HEPARIN 25,000 UNIT/500ML D5W 500 ML IV PRN ×4 (07:10→14:57)
[2016-11-17 07:42] LABS: PARTIAL THROMBOPLASTIN RATIO 1.8
[2016-11-17 07:50] LABS: BUN/CREATININE RATIO 27.6 (10-20); CALCIUM 8.4 mg/dl (8.5-10.1); CREATININE 2.3 mg/dl (0.60-1.40); POTASSIUM 4.2 mmol/L (3.5-5.1)
[2016-11-17] MEDS: PREGABALIN 150 MG CAP PO SCH ×2 (09:31→21:14)
[2016-11-17] MEDS: DOCUSATE SODIUM/SENNA 50/8.6MG TAB PO SCH ×2 (09:33→21:15)
[2016-11-17] MEDS: PANTOprazole SOD 40 MG TAB PO SCH (09:33)
[2016-11-17] MEDS: LISINOPRIL 20 MG TAB PO SCH (09:33)
[2016-11-17] MEDS: POLYETHYLENE (MIRALAX) 17 GM PACK PO SCH (09:33)
[2016-11-17] MEDS: POTASSIUM CHLORIDE 10 MEQ TABCR PO SCH ×2 (09:34→21:15)
[2016-11-17] MEDS: SUCRALFATE 1 GM TAB PO SCH ×3 (09:34→21:15)
[2016-11-17] MEDS: CARVEDILOL 25 MG TAB PO SCH ×2 (09:34→21:15)
[2016-11-17] MEDS: URSODIOL 300 MG CAP PO SCH ×2 (09:34→21:15)
[2016-11-17 09:35] VITALS: BP 114/67; PULSE 65; O2SAT 86
[2016-11-17] MEDS: ASPIRIN 81 MG ECTAB PO SCH (09:35)
[2016-11-17] MEDS: METOPROLOL TARTRATE 50 MG TAB PO SCH ×2 (09:35→21:15)
[2016-11-17] MEDS: VENLAFAXINE HCL XR 75 MG CAPXR PO SCH (09:35)
[2016-11-17] MEDS: EUCERIN CR 120 GM JAR EXT SCH ×2 (09:35→21:14)
[2016-11-17] MEDS: INSULIN ASPART 100 UNITS/ML 3 ML PEN SC SCH ×4 (09:38→21:25)
[2016-11-17] MEDS: INSULIN DETEMIR FLEXPEN/FLEX TOUCH 100 UNITS/ML 3ML SC SCH ×2 (09:39→21:25)
[2016-11-17 09:46] VITALS: O2SAT 94
--- NOTE | 2016-11-17 10:18 | Pharmacy Progress Note ---
Glycemic Control: Progress Nt Date of Service Nov 17, 2016. Scope Glycemic Pharmacist consulted by Dr. Barboza on 11/15/16 for glycemic control and to write orders per [facility] inpatient glycemic control protocol. Objective Accuchecks BSG (last 24hrs): Test 11/16/16 12:08 11/16/16 17:10 11/16/16 21:46 11/17/16 06:50 Bedside Glucose 101 mg/dl (70-99) 119 mg/dl (70-99) 114 mg/dl (70-99) Random Glucose 94 mg/dl (70-99) Test 11/17/16 08:25 Bedside Glucose 104 mg/dl (70-99) Laboratory Data (last 24hrs) Test 11/17/16 06:50 Anion Gap 7.0 mmol/L BUN/Creatinine Ratio 27.6 Blood Urea Nitrogen 63 mg/dl Creatinine 2.30 mg/dl Potassium Level 4.2 mmol/L Sodium Level 141 mmol/L HbA1c: Test 11/16/16 07:00 Hemoglobin A1c 7.4 % (4.5-5.6) H Recent Pertinent Medications Risk Factors for Insulin Resistance: * Fluids: Hep gtt, Lasix IVP * Diet: DM2 Assessment & Plan ASSESSMENT: * ADA & AACE recommend a goal blood sugar range 140-180 mg/dl for the majority of critically ill & non-critically ill patients. However, more stringent targets may be selected in individual cases. 11/15/16 * Pt [facility]. Information regarding insulin doses was not too clear so [facility] spoke with a nurse at [facility] to obtain further information * Patient was having frequent lows at all times of the day (50s and 60s at times) so the Lantus was reduced over time to 25 units q12h, Novolog was also reduced from 15 units w/ meals to 7 units w/ meals * [facility] confirmed that the pt did not receive his Lantus 11/15/16 but did receive a total of 50 units NovoLog 11/14/16 * BSG below goal for inpatient targets on admission (BSG = 93mg/dl) and no major stressors are on board at this time. * Initial SQ basal bolus insulin regimen dosing based on total daily dose of ~ 70 units. Give loading dose/full 24h dose of Levemir 4/4/17 PM since he did not have any basal insulin given 11/15/16. Then, split Levemir BID 11/16/16 AM 11/16/16 * AM fasting BSG below goal range at 83mg/dl * Pt received full dose of Levemir (35 units) last evening. Pt uses 35 units SQ BID as an outpatient but has only been requiring 25 units BID (of Lantus) while at rehab hospital with frequent lows. Will hold Levemir this morning to prevent hypo. Continue basal insulin dosing of ~ 35units/day but split to 18 units SQ BID as patient is taking basal insulin BID as an outpatient. BID dosing more convenient and safe for rapid dose titrations. * A1c = 7.4% on 11/16/16 * Indicates adequate outpatient glycemic control. Patient is receiving reduced insulin doses at rehab hospital as compared to outpatient dosing (controlled diet/CHO?) * Outpatient regimen will depend on where pt D/C to 11/17/16 * FBG this morning was 94 mg/dl. Therefore will reduce Levemir dose by 15 %. * Continue Novolog CF/CR which appears to be appropriate at this time. PLAN FOR INPATIENT GLYCEMIC CONTROL: * Decrease Levemir to 15 units SQ BID * Novolog ACHS * Continue correction factor of 30 mg/dl/unit * Continue carb ratio of 1 unit per 10 grams CHO consumed * Continue goal range of Low 120 mg/dL - High 150 mg/dL * Please note that the plan above was derived based on current level of insulin resistance and hospital stress. These recommendations are appropriate for inpatient admission only. Plan of care upon discharge will need to be reassessed to avoid potential outpatient hypo/hyperglycemia. Thank you.
[2016-11-17] MEDS: WARFARIN SOD 10 MG TAB PO SCH (15:37)
[2016-11-17 15:39] VITALS: BP 135/86; PULSE 65; TEMP 36.5; O2SAT 92
--- NOTE | 2016-11-17 18:57 | Progress Note ---
Subjective Date of Service: Nov 17, 2016. Subjective Pt evaluation today including: conversation w/ patient, physical exam, chart review, lab review, conversation w/ hr business partner consultant, review of inpatient medication list tired feeling better though breathing better chest pain better doesn't have thoughts on VQ to determine more clearly if PE _ again d/w him yesterday that current treatment would be unchanged. no other complaints anticipates hopefully return to [facility] tomorrow d/w dr barnes Problem List Medical Problems: (1) Anemia Status: Acute (2) CHF (congestive heart failure) Status: Acute (3) Deep vein thrombosis Status: Acute (4) Hypoxia Status: Acute Review of Systems Respiratory: + shortness of breath (improving) ros otherwise negative except for as above Objective Vital Signs Date Time Temp Pulse Resp B/P Pulse Ox O2 Delivery O2 Flow Rate FiO2 11/17/16 15:39 36.5 65 20 135/86 92 Nasal Cannula 2.0 11/17/16 15:33 Nasal Cannula 2.0 11/17/16 09:46 94 Nasal Cannula 2.0 11/17/16 09:35 65 114/67 86 Room Air 11/17/16 08:00 Nasal Cannula 2.0 11/17/16 06:58 36.8 63 16 132/86 95 Nasal Cannula 2.0 11/17/16 00:00 Nasal Cannula 2.0 11/16/16 23:05 37.0 64 18 120/74 92 Nasal Cannula 2.0 Physical Exam General Appearance: no apparent distress Eyes: EOMI ENT: hearing grossly normal Neck: trachea midline Respiratory/Chest: no respiratory distress, no accessory muscle use, + rhonchi (ongoing wet sounding rhonchi but more clear than yesterday) Extremities: + pertinent finding (ongoing venous stasis changes wounds dressed , no erythema) Neurologic/Psychiatric: insights strategist II-XII nml as tested, alert, normal mood/affect Skin: normal color Laboratory Results Last 24 Hours Test 11/16/16 21:46 11/17/16 06:50 11/17/16 08:25 11/17/16 12:20 Bedside Glucose 114 mg/dl 104 mg/dl 182 mg/dl Activated Partial Thromboplast Time 47.9 SECONDS Partial Thromboplastin Ratio 1.8 D-Dimer 690 ug/L FEU Sodium Level 141 mmol/L Potassium Level 4.2 mmol/L Chloride Level 104 mmol/L Carbon Dioxide Level 30 mmol/L Anion Gap 7.0 mmol/L Blood Urea Nitrogen 63 mg/dl Creatinine 2.30 mg/dl Est Creatinine Clear Calc Drug Dose 63.0 ml/min Estimated GFR () 35.2 Estimated GFR (Non- 30.4 BUN/Creatinine Ratio 27.6 Random Glucose 94 mg/dl Calcium Level 8.4 mg/dl Test 11/17/16 17:02 Bedside Glucose 108 mg/dl Assessment and Plan SOB - likely multifactorial -acute decompensation of systolic CHF -possible PE -improving acute CHF (acute on chronic systolic) -improving -continue 80mg bid as ordered, no need for additional today -follow BMP pleuritic type pain -xrays neg for fx -have to anticoagulate due to DVT anyway -clinically suspicious for PE, although in d/w dr barnes Ddimer not as high as would expect w PE extensive DVT -heparin --> warfarin cardiomyopathy -continue home meds, folow - decompensation treatment as above diabetes -a1c 7.4 -diabetic diet -sugars reasonable so far, no need for changes constipation, we will continue his senna with MiraLax in addition. urinary retention - cath drainage as necessary stasis dermatitis and superficial ulcers- wound nurse consult. no cellulitis at this time
[2016-11-17] MEDS: ATORVASTATIN 40 MG TAB PO SCH (21:15)
[2016-11-17] MEDS: MoRPHine SULFATE 2 MG/ML CARP IV PRN (22:22)
[2016-11-18 00:05] VITALS: BP 132/85; PULSE 63; TEMP 36.5; O2SAT 96
[2016-11-18] MEDS: hydrOXYzine HCL 25 MG TAB PO PRN (00:18)
[2016-11-18] MEDS: HEPARIN 25,000 UNIT/500ML D5W 500 ML IV PRN ×3 (01:45→09:04)
[2016-11-18] MEDS: FUROSEMIDE INJ 80 MG in SYRINGE 0 ML IV SCH (06:12)
[2016-11-18 07:16] LABS: HEMATOCRIT 31.8 % (42-52); MEAN CELL VOLUME 85.5 fL (80-100); MEAN CORPUSCULAR HEMOGLOBIN 27.2 pg (25-34); MEAN CORPUSCULAR HGB CONC 31.8 g/dl (32-36); MEAN PLATELET VOLUME 9.2 fL (7.4-10.4); PLATELET COUNT 240 K/uL (130-400); RED BLOOD COUNT 3.72 M/uL (4.7-6.1); WHITE BLOOD COUNT 6.17 K/uL (4.8-10.8)
[2016-11-18 07:35] LABS: INR 1.2 (0.9-1.1); PARTIAL THROMBOPLASTIN RATIO 1.9; PROTHROMBIN TIME (PATIENT) 12.7 SECONDS (9.0-12.0)
[2016-11-18 07:45] VITALS: BP 157/92; PULSE 63; TEMP 36.6; O2SAT 96
[2016-11-18 07:55] LABS: CALCIUM 8.6 mg/dl (8.5-10.1); CREATININE 2.4 mg/dl (0.60-1.40); POTASSIUM 4.2 mmol/L (3.5-5.1)
[2016-11-18] MEDS: POTASSIUM CHLORIDE 10 MEQ TABCR PO SCH (08:50)
[2016-11-18] MEDS: ASPIRIN 81 MG ECTAB PO SCH (08:50)
[2016-11-18] MEDS: DOCUSATE SODIUM/SENNA 50/8.6MG TAB PO SCH (08:50)
[2016-11-18] MEDS: POLYETHYLENE (MIRALAX) 17 GM PACK PO SCH (08:50)
[2016-11-18] MEDS: PANTOprazole SOD 40 MG TAB PO SCH (08:51)
[2016-11-18] MEDS: VENLAFAXINE HCL XR 75 MG CAPXR PO SCH (08:51)
[2016-11-18] MEDS: LISINOPRIL 20 MG TAB PO SCH (08:51)
[2016-11-18] MEDS: SUCRALFATE 1 GM TAB PO SCH ×2 (08:52→13:03)
[2016-11-18] MEDS: METOPROLOL TARTRATE 50 MG TAB PO SCH (08:52)
[2016-11-18] MEDS: CARVEDILOL 25 MG TAB PO SCH (08:52)
[2016-11-18] MEDS: EUCERIN CR 120 GM JAR EXT SCH (08:53)
[2016-11-18] MEDS: URSODIOL 300 MG CAP PO SCH (08:53)
[2016-11-18] MEDS: PREGABALIN 150 MG CAP PO SCH (08:56)
[2016-11-18] MEDS: INSULIN ASPART 100 UNITS/ML 3 ML PEN SC SCH ×2 (09:03→12:52)
[2016-11-18] MEDS: INSULIN DETEMIR FLEXPEN/FLEX TOUCH 100 UNITS/ML 3ML SC SCH (09:04)
[2016-11-18 10:00] VITALS: BP_SYST 183; BP_SYST 190; BP_DIAS 112; BP_DIAS 131
[2016-11-18 11:46] VITALS: BP 189/124; PULSE 75; TEMP 37; O2SAT 95
[2016-11-18 11:58] VITALS: BP 138/85; PULSE 63
[2016-11-18] MEDS ORDERED: CMD10 PO (12:14)
--- NOTE | 2016-11-18 12:20 | Discharge Instructions ---
Discharge Instructions Date of Service Nov 18, 2016. Admission Reason for Admission: Right Leg Dvt Discharge Discharge Diagnosis / Problem: shortness of breath - acute CHF >>>> CHF + small PE Discharge Goals Goal(s): Diagnostic testing, Therapeutic intervention Activity Recommendations Activity Level: Assistance Required Therapies: Physical Therapy, Occupational Therapy . Additional Information Patient informed of condition: Yes Advance Directives: No DNR: No Level of Care: Acute Rehab Communicable Disease: No Prognosis: Improving Oxygen at (LPM): 2 Instructions / Follow-Up Instructions / Follow-Up shortness of breath appearing to be mostly acute decompensation of CHF, unlikely but possible that small PE burden contributing ---would use lasix 80mg PO BID with additional 40mg mid day dosing for the next 4 days, then repeat BMP, and based on labs and clinical assessment, adjust dosing as appropriate ---with R sided pleuritic pain and new shortness of breath, there is a question of small PE as well - but with creatinine unable to get CT chest and after discussions with pt since confirmation or not wouldn't change his need for anticoagulation, we agreed not to pursue VQ. anticoagulation physician has low suspicion of much of any acute clotting -anticoagulation physician felt with body mass / renal disease NOACs likely not a safe option -transition back to coumadin - for now 10mg daily; bridge w lovenox 150mg HS (start tonight 11/18/16) -follow INR daily until therapeutic, can dc lovenox once INR > 2 (has been on heparin inpatient so will have definitely had enough overlap) Current Hospital Diet Patient's current hospital diet: Diabetes Type 2 Diet Discharge Diet Recommended Diet: Low Sodium Diet (2gm Na), Diabetes Type 2 Diet Pending Studies Studies pending at discharge: no Laboratory Results Hemoglobin A1c Test 11/16/16 07:00 Range/Units Estimated Average Glucose 166 mg/dl Hemoglobin A1c 7.4 H 4.5-5.6 % Medical Emergencies . Who to Call and When: Medical Emergencies: If at any time you feel your situation is an emergency, please call 911 immediately. . Non-Emergent Contact Non-Emergency issues call your: Primary Care Provider . . "Provider Documentation" section prepared by Umberto Chapman. Core Measure Problem Core Measures: VTE VTE Core Measures Date of VTE Diagnosis: Nov 15, 2016 Time of VTE Diagnosis: 12:32 Reason no anticoag overlap I/P: Treatment provided - N/A Reason no anticoag overlap @DC: Treatment provided - N/A
[2016-11-18] MEDS ORDERED: ENOX120I SQ (12:21)
[2016-11-18 12:54] VITALS: BP 138/85; PULSE 63; TEMP 36.6; O2SAT 96
[2016-11-18] MEDS: WARFARIN SOD 10 MG TAB PO SCH (14:42)
--- NOTE | 2016-11-18 17:09 | Discharge Summary ---
Discharge Summary Date of Service Nov 18, 2016. Discharge Summary Admission Date: Nov 15, 2016 at 13:04 Discharge Date: Nov 18, 2016 Principal Diagnosis: CHF exacerbation Immunizations: Have You Had Influenza Vaccine: Unknown Procedures: RIBS BILATERAL 8 VIEWS CLINICAL HISTORY: Bilateral rib pain COMPARISON STUDY: Chest x-ray dated 11/15/2016 FINDINGS: There is a left subclavian pacer/defibrillator present. No rib fractures are visualized. No destructive lesions are visualized on conventional radiographic imaging. There is no pneumothorax. IMPRESSION: No rib fractures identified. Electronically signed by: Richard Byrd M.D. 11/16/2016 3:55 PM Dictated Date/Time: 11/16/2016 3:54 PM BILATERAL LOWER EXTREMITY VENOUS DOPPLER HISTORY: Bilateral leg swelling COMPARISON STUDY: None. FINDINGS: Near occlusive thrombus seen within the right common femoral and right superficial femoral veins. The right popliteal vein appears patent. Broken flow identified within the right posterior tibial and peroneal vein suggesting additional sites of thrombus. No DVT within the left lower extremity. IMPRESSION: 1. Right lower extremity DVT as described above. 2. No left lower extremity DVT. Electronically signed by: Kike Shelton M.D. 11/15/2016 12:33 PM Dictated Date/Time: 11/15/2016 12:32 PM CHEST ONE VIEW PORTABLE CLINICAL HISTORY: Respiratory distress COMPARISON STUDY: No previous studies for comparison. FINDINGS: The heart is enlarged. There is mild pulmonary vascular congestion. There is a left subclavian pacer/defibrillator. There is no lobar consolidation. There is no significant pleural fluid.[ IMPRESSION: Cardiomegaly and radiographic evidence of pulmonary vascular congestion. Electronically signed by: Richard Byrd M.D. 11/15/2016 10:07 AM Dictated Date/Time: 11/15/2016 10:06 AM Last 24 Hours Test 11/17/16 21:16 11/18/16 07:04 11/18/16 08:02 11/18/16 11:53 Bedside Glucose 162 mg/dl 118 mg/dl 141 mg/dl White Blood Count 6.17 K/uL Red Blood Count 3.72 M/uL Hemoglobin 10.1 g/dL Hematocrit 31.8 % Mean Corpuscular Volume 85.5 fL Mean Corpuscular Hemoglobin 27.2 pg Mean Corpuscular Hemoglobin Concent 31.8 g/dl RDW Standard Deviation 50.4 fL RDW Coefficient of Variation 16.0 % Platelet Count 240 K/uL Mean Platelet Volume 9.2 fL Prothrombin Time 12.7 SECONDS Prothromb Time International Ratio 1.2 Activated Partial Thromboplast Time 48.5 SECONDS Partial Thromboplastin Ratio 1.9 Sodium Level 140 mmol/L Potassium Level 4.2 mmol/L Chloride Level 101 mmol/L Carbon Dioxide Level 32 mmol/L Anion Gap 7.0 mmol/L Blood Urea Nitrogen 67 mg/dl Creatinine 2.40 mg/dl Est Creatinine Clear Calc Drug Dose 60.4 ml/min Estimated GFR () 33.5 Estimated GFR (Non- 28.9 BUN/Creatinine Ratio 28.0 Random Glucose 106 mg/dl Calcium Level 8.6 mg/dl Consultations: anticoagulation Medication Reconciliation New Medications: Enoxaparin (Lovenox) 120 Mg/0.8 Ml Inj 150 MG SQ HS, #7 SYR Warfarin Sod (Coumadin) 10 Mg Tab 10 MG PO DAILY@16, #30 TAB Continued Medications: Acetaminophen W/ Codeine (Codeine/Acetaminophen) 1 Tab Tab 1 TAB PO Q6 Aspirin (Aspirin Ec) 81 Mg Tab 81 MG PO DAILY Atorvastatin (Lipitor) 40 Mg Tab 40 MG PO HS, TAB Carvedilol (Coreg) 25 Mg Tab 25 MG PO BID, TAB Esomeprazole Magnesium (Nexium) 40 Mg Capcr 40 MG PO DAILY, CAP Take prior to a meal Furosemide (Lasix) 80 Mg Tab 1 TAB PO BID for 90 Days, #180 TAB 3 Refills Furosemide (Lasix) 40 Mg Tab 40 MG PO DAILY, TAB Insulin Aspart (Novolog Flexpen) 100 Units/Ml Inj 15 UNITS SQ TID Before meals Insulin Detemir (Levemir) 100 Units/Ml Inj 35 UNITS SC Q12 Breakfast & bedtime Lisinopril (Prinivil) 20 Mg Tab 20 MG PO DAILY, TAB Melatonin (Melatonin Maximum Strengt) 5 Mg Tab 1 TAB PO HS for 30 Days, #30 TAB Metoprolol Tartrate (Lopressor) (Lopressor) 50 Mg Tab 50 MG PO BID, TAB Nifedipine Ext Rel (Procardia Xl Ext Rel) 60 Mg Tabcr 60 MG PO DAILY, TAB Nitroglycerin (Nitrostat) 0.4 Mg Tab 0.4 MG UT PRN, BTL Potassium Chloride (Micro-K Ext Rel) 10 Meq Capcr 10 MEQ PO BID, CAP Pregabalin (Lyrica) 150 Mg Cap 150 MG PO BID, CAP Sennosides-Docusate Sodium (Sennalax-S) 1 Tab Tab 2 TABS PO BID Sucralfate (Carafate) 1 Gm Tab 1 TAB PO TID, TAB Ursodiol (Ursodiol) 300 Mg Cap 1 CAP PO BID Venlafaxine Hcl (Venlafaxine Extended Rel) 75 Mg Cap 75 MG PO DAILY, CAP Discontinued Medications: Apixaban (Eliquis) 2.5 Mg Tab 2.5 MG PO BID, TAB Discharge Exam Physical Exam: General Appearance: no apparent distress Eyes: EOMI ENT: hearing grossly normal Neck: trachea midline Respiratory/Chest: no respiratory distress, no accessory muscle use, + pertinent finding (faintly coarse wet sounding very faint wheeze diffusely - far improved from wet rhonchi earlier in stay) Neurologic/Psychiatric: pantomimist II-XII nml as tested, alert, normal mood/affect Skin: normal color, + pertinent finding (leg wounds dressed no tracking erythema) Hospital Course SOB - likely multifactorial -acute decompensation of systolic CHF -possible PE (can't rule out, needs anticoagulated regardless) -improving acute CHF (acute on chronic systolic) -improving -continue 80mg bid and additional 40mg mid day for now, follow clinically follow exam, reduce once clearly back to compensated baseline -follow BMP pleuritic type pain -xrays neg for fx -have to anticoagulate due to DVT anyway -clinically mildly suspicious for PE, although in d/w dr barnes Ddimer not as high as would expect w PE extensive DVT -failed eliquis - see consults from dr barnes - between renal function and body mass, not clear that NOAC will be effecacious in his situation -lovenox --> coumadin. follow INR cardiomyopathy -continue home meds, folow - decompensation treatment as above diabetes -a1c 7.4 -diabetic dietdurin inpatient stay, no need for changes at this time constipation, we will continue his senna with MiraLax in addition. urinary retention - cath drainage as necessary follow at rehab stasis dermatitis and superficial ulcers- ongoing local wound care stable for return to [facility] Total Time Spent: Greater than 30 minutes This includes examination of the patient, discharge planning, medication reconciliation, and communication with other providers. Discharge Instructions Please refer to the electronic Patient Visit Report (Discharge Instructions) for additional information. Additional Copies To [facility]; Ke Rogers M.D.
[2016-12-06] MEDS ORDERED: DOXY100C PO (03:17)
[2016-12-14] MEDS ORDERED: ACET-749 PO (14:52)
[2016-12-14] MEDS ORDERED: NRV5 PO (14:52)
[2017-01-14] MEDS ORDERED: FRRS300 PO (20:08)
[2017-01-14] MEDS ORDERED: ACET-749 PO (20:08)
[2017-01-14] MEDS ORDERED: DXY100 PO (20:08)
[2017-01-14] MEDS ORDERED: TRAZ50TA35 PO (20:08)
[2017-04-04] MEDS ORDERED: POLY335019 PO (02:57)
[2017-04-04] MEDS ORDERED: ASPCH81X PO (03:14)
[2017-04-04] MEDS ORDERED: MULT-116 PO (03:27)
[2017-04-04] MEDS ORDERED: NTRGSL/4 UT (03:29)
[2017-04-04] MEDS ORDERED: BISA10SU38 PR (03:30)
[2017-04-04] MEDS ORDERED: VNTHFA/IN INH (03:31)
[2017-04-04] MEDS ORDERED: VENL75CA73 PO (10:02)
[2017-04-04] MEDS ORDERED: CARV25TA2 PO (10:02)
[2017-04-04] MEDS ORDERED: SENN1TAB86 PO (10:02)
[2017-04-04] MEDS ORDERED: URSO300C8 PO (10:02)
[2017-04-04] MEDS ORDERED: ATOR-24 PO (10:02)
[2017-04-07] MEDS ORDERED: DXY100 PO (15:41)
[2017-05-08] MEDS ORDERED: AMX500 PO (16:13)
[2017-05-08] MEDS ORDERED: CPR500 PO (16:13)
[2017-05-08] MEDS ORDERED: LPT40 PO (16:13)
[2017-05-29] MEDS ORDERED: LVMI SQ (13:05)
[2017-05-29] MEDS ORDERED: NVLGIPEN SC (13:05)
[2017-05-29] MEDS ORDERED: NYSP EXT (13:05)
[2017-05-29] MEDS ORDERED: FLM4 PO (13:05)
[2017-05-29] MEDS ORDERED: DRGTP25 TD (13:05)
[2017-05-29] MEDS ORDERED: LSX80 PO (13:05)
[2017-05-29] MEDS ORDERED: WARF5TAB90 PO (13:05)
[2017-05-29] MEDS ORDERED: CIPR-255 PO (13:10)
[2017-05-29] MEDS ORDERED: AMOX500C3 PO (13:10)
[2017-05-29] MEDS ORDERED: LCTX PO ×3 (13:42→13:47)
[2017-06-30] MEDS ORDERED: POTA1CAP2 PO (15:19)
[2017-07-10] MEDS ORDERED: LSX80 PO (16:08)
[2017-07-10] MEDS ORDERED: LEVO25TA PO (16:08)
[2017-07-10] MEDS ORDERED: VANC500I IV (16:08)
[2017-07-10] MEDS ORDERED: [UNRECOGNIZED DRUG - CODE] IV (16:08)
[2017-07-10] MEDS ORDERED: CMD2 PO (16:08)
== END 2016-11-18 15:37 | DRG 175 ==
LOC: ENRESERVTM → ENRESERVDT → EDBD 08:43 → C.EDA 08:44 → C.MSW 13:04
PROVIDERS: ADMIT Internal Medicine; ATTEND Family Medicine
DX: I26.99 Other pulmonary embolism without acute cor pulmonale (principal); I50.23 Acute on chronic systolic (congestive) heart failure; I13.0 Hypertensive heart and chronic kidney disease with heart failure and stage 1 through stage 4 chronic kidney disease, or unspecified chronic kidney disease; Z68.41 Body mass index [BMI] 40.0-44.9, adult; I82.401 Acute embolism and thrombosis of unspecified deep veins of right lower extremity; Z95.810 Presence of automatic (implantable) cardiac defibrillator; J45.909 Unspecified asthma, uncomplicated; E11.22 Type 2 diabetes mellitus with diabetic chronic kidney disease; I25.5 Ischemic cardiomyopathy; N18.3 Chronic kidney disease, stage 3 (moderate); I48.2 Chronic atrial fibrillation; Z79.899 Other long term (current) drug therapy; Z87.891 Personal history of nicotine dependence; E78.00 Pure hypercholesterolemia, unspecified; Z87.11 Personal history of peptic ulcer disease; Z79.01 Long term (current) use of anticoagulants; Z79.4 Long term (current) use of insulin; E66.9 Obesity, unspecified; K59.00 Constipation, unspecified; R33.9 Retention of urine, unspecified; E11.51 Type 2 diabetes mellitus with diabetic peripheral angiopathy without gangrene

== ENCOUNTER 2016-12-07 02:29 | Inpatient (IN) | payer OTHER ==
[~2016-12-07] VITALS: Ht 203.2 cm; Wt 161.8 kg
[~2016-12-07 02:29] MED LIST: ACET30TA PO; ASPI81TA28 PO; CMD10 PO; DOXY100C PO; ENOX120I SQ; FRS/40 PO; FURO80TA63 PO; LISI20TA3 PO; LVMI SC; MELATAB2 PO; METO50TA16 PO; NIFE60TA57 PO; NTRGSL/4 UT; NVLGI/PEN SQ; NXM/40 PO; POTA10CA28 PO; PREG1CAP70 PO; SUCR1TAB29 PO
[2016-12-07] MEDS ORDERED: ONDANSETRON INJ 2 MG/ML 2 ML VIAL IV STA ×2 (02:39→06:52)
--- NOTE | 2016-12-07 02:41 | EMERGENCY ROOM VISIT NOTE ---
History Report prepared by Jesus: Harvey Hanna Under the Supervision of: Dr. Jake Calabrese D.O. First contact with patient: 02:21 Chief Complaint: ABDOMINAL PAIN Stated Complaint: ABDOMINAL PAIN/NAUSEA History of Present Illness The patient is a 56 year old male who presents to the Emergency Room via EMS with complaints of diffuse abdominal pain that began two days ago. He rates his pain a 7/10 in severity. The patient is currently receiving rehab from [facility] for his right leg cellulitis. The patient's pain worsened 24 hours ago, and he was sent here for this pain now. He is experiencing nausea and dry heaving. He denies any back pain. He has a medical history of a cholecystectomy. Source of History: patient Onset: 2 days ago Position: abdomen Symptom Intensity: 7/10 Quality: sharp Timing: worsening Associated Symptoms: + nausea, No back pain Review of Systems See HPI for pertinent positives and negatives. A total of ten systems were reviewed and were otherwise negative. Past Medical & Surgical Medical Problems: (1) Afib (2) Heart attack (3) Ischemic cardiomyopathy (4) Pulmonary embolism (5) Right leg DVT (6) Stage 3 chronic kidney disease Family History Omitted secondary to age. Social History Smoking Status: Unknown if Ever Smoked Smokeless Tobacco Use: Unknown Housing Status: unknown Occupation Status: retired Current/Historical Medications Scheduled Apixaban (Eliquis), 5 MG PO Q12 Aspirin (Aspirin Chewable), 81 MG PO QAM Atorvastatin (Lipitor), 40 MG PO QPM Bacitracin (Topical) (Bacitracin), 1 APPLN TOP HS Carvedilol (Coreg), 25 MG PO Q12 Doxycycline Hyclate (Vibramycin), 1 CAP PO BID Furosemide (Lasix), 80 MG PO BID Insulin Aspart (Novolog Flexpen), UNITS SQ ACHS Insulin Aspart (Novolog Flexpen), 15 UNITS SQ TIDM Multiple Vitamins W/ Minerals (Theragran-M), 1 TAB PO QAM Pantoprazole (Protonix), 40 MG PO QPM Polyethylene Glycol 3350 (Miralax), 17 GM PO DAILY Sennosides-Docusate Sodium (Sennalax-S), 2 TABS PO HS Trazodone Hcl (Trazodone), 50 MG PO HS Ursodiol (Ursodiol), 1 CAP PO Q12 Venlafaxine Hcl (Venlafaxine Extended Rel), 75 MG PO HS Scheduled PRN Acetaminophen (Tylenol), 500 MG PO Q4 PRN for Pain or Fever Acetaminophen/Codeine (Tylenol W/Codeine #3), 1 TAB PO Q6 PRN for Pain Albuterol Hfa (Ventolin Hfa), 2 PUFFS INH Q6H PRN for Wheezing Bisacodyl (Dulcolax), 1 SUPP MI Q24H PRN for no bm past 2 days Docusate Sodium (Docusate Sodium), 1 CAP PO BID PRN for Constipation Nitroglycerin (Nitrostat), 0.4 MG UT UD PRN for Chest Pain Ondansetron Hcl (Zofran), 8 MG PO Q8 PRN for Nausea Ondansetron Hcl (Zofran), 4 MG PO Q8 PRN for Nausea Allergies Coded Allergies: Amoxicillin (Verified Allergy, Unknown, unknown, 12/07/16) Cephalosporins (Verified Allergy, Unknown, unknown, 12/07/16) Ciprofloxacin (Verified Allergy, Unknown, unknown, 12/07/16) Clindamycin (Verified Allergy, Unknown, unknown, 12/07/16) Iodinated Diagnostic Agents (Verified Allergy, Unknown, unknown, 12/07/16) Penicillins (Unverified Allergy, Unknown, unknown, 11/15/16) Uncoded Allergies: PERFLUTREN LIPID MICROSPHERES (Allergy, Unknown, unknown, 12/07/16) Physical Exam Vital Signs Date Time Temp Pulse Resp B/P Pulse Ox O2 Delivery O2 Flow Rate FiO2 12/07/16 05:11 63 20 171/95 96 Room Air 12/07/16 04:32 63 22 184/99 92 Room Air 12/07/16 03:32 67 28 188/120 100 Room Air 12/07/16 03:00 64 12/07/16 02:47 36.9 66 20 190/115 99 Room Air Physical Exam GENERAL: Morbidly obese, Awake, alert, well-appearing, in no distress HENT: Normocephalic, atraumatic. Oropharynx unremarkable. EYES: Normal conjunctiva. Sclera non-icteric. NECK: Supple. No nuchal rigidity. FROM. No JVD. RESPIRATORY: Clear to auscultation. CARDIAC: Regular rate, normal rhythm. Extremities warm and well perfused. Pulses equal. ABDOMEN: Soft, non-distended. Diffuse mild tenderness to palpation. No rebound or guarding. No masses. RECTAL: Deferred. MUSCULOSKELETAL: Chest examination reveals no tenderness. The back is symmetrical on inspection without obvious abnormality. There is no CVA tenderness to palpation. No joint edema. LOWER EXTREMITIES: Bandaged right tamayo with weeping fluid present. NEURO: Normal sensorium. No sensory or motor deficits noted. SKIN: Positive for hemostasis ulcer on bilateral lower extremities. Medical Decision & Procedures ER Provider Diagnostic Interpretation: Radiology results are stated below per my review and radiologist interpretation: CT ABDOMEN & PELVIS: No evidence of acute inflammatory process in the abdomen or pelvis. Incidental findings include: Cardiomegaly. Hepatosplenomegaly. Status post cholecystectomy. Nonspecific perinephric stranding without hydronephrosis. Exophytic right kidney cyst. No bowel obstruction or diverticulitis. Normal colonic stool burden with pelvic floor prolapse and rectocele. Unremarkable urinary bladder. 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 Extensive abdominal wall collateral vessels. Right inguinal lymphadenopathy. Lumbar spondylosis without evidence of acute osseous abnormality. Radiologist: Nathalie Fonseca M.D. Laboratory Results 12/07/16 02:40 Red Blood Count 4.17, Mean Corpuscular Volume 83.7, Mean Corpuscular Hemoglobin 27.1, Mean Corpuscular Hemoglobin Concent 32.4, Mean Platelet Volume 9.6, Neutrophils (%) (Auto) 91.3, Lymphocytes (%) (Auto) 6.0, Monocytes (%) (Auto) 1.6, Eosinophils (%) (Auto) 0.4, Basophils (%) (Auto) 0.3, Neutrophils # (Auto) 10.19, Lymphocytes # (Auto) 0.67, Monocytes # (Auto) 0.18, Eosinophils # (Auto) 0.04, Basophils # (Auto) 0.03 12/07/16 02:40 Test 12/07/16 02:40 12/07/16 02:44 12/07/16 04:27 12/07/16 04:58 White Blood Count 11.16 K/uL (4.8-10.8) Red Blood Count 4.17 M/uL (4.7-6.1) Hemoglobin 11.3 g/dL (14.0-18.0) Hematocrit 34.9 % (42-52) Mean Corpuscular Volume 83.7 fL (80-100) Mean Corpuscular Hemoglobin 27.1 pg (25-34) Mean Corpuscular Hemoglobin Concent 32.4 g/dl (32-36) Platelet Count 288 K/uL (130-400) Mean Platelet Volume 9.6 fL (7.4-10.4) Neutrophils (%) (Auto) 91.3 % Lymphocytes (%) (Auto) 6.0 % Monocytes (%) (Auto) 1.6 % Eosinophils (%) (Auto) 0.4 % Basophils (%) (Auto) 0.3 % Neutrophils # (Auto) 10.19 K/uL (1.4-6.5) Lymphocytes # (Auto) 0.67 K/uL (1.2-3.4) Monocytes # (Auto) 0.18 K/uL (0.11-0.59) Eosinophils # (Auto) 0.04 K/uL (0-0.5) Basophils # (Auto) 0.03 K/uL (0-0.2) RDW Standard Deviation 48.2 fL (36.4-46.3) RDW Coefficient of Variation 15.8 % (11.5-14.5) Immature Granulocyte % (Auto) 0.4 % Immature Granulocyte # (Auto) 0.05 K/uL (0.00-0.02) Anion Gap 6.0 mmol/L (3-11) Est Creatinine Clear Calc Drug Dose 64.1 ml/min Estimated GFR () 37.2 Estimated GFR (Non- 32.1 BUN/Creatinine Ratio 21.6 (10-20) Calcium Level 8.9 mg/dl (8.5-10.1) Total Bilirubin 0.5 mg/dl (0.2-1) Direct Bilirubin 0.2 mg/dl (0-0.2) Aspartate Amino Transf (AST/SGOT) 17 U/L (15-37) Alanine Aminotransferase (ALT/SGPT) 20 U/L (12-78) Alkaline Phosphatase 189 U/L (45-117) Total Protein 9.0 gm/dl (6.4-8.2) Albumin 3.1 gm/dl (3.4-5.0) Lipase 130 U/L (73-393) Bedside Lactic Acid Venous 1.21 mmol/L (0.90-1.70) Urine Color YELLOW Urine Appearance CLEAR (CLEAR) Urine pH 6.5 (4.5-7.5) Urine Specific [place] 1.016 (1.000-1.030) Urine Protein 3+ (NEG) Urine Glucose (UA) 1+ (NEG) Urine Ketones TRACE (NEG) Urine Occult Blood 1+ (NEG) Urine Nitrite NEG (NEG) Urine Bilirubin NEG (NEG) Urine Urobilinogen NEG (NEG) Urine Leukocyte Esterase NEG (NEG) Urine WBC (Auto) 1-5 /hpf (0-5) Urine RBC (Auto) 5-10 /hpf (0-4) Urine Hyaline Casts (Auto) 1-5 /lpf (0-5) Urine Epithelial Cells (Auto) 10-20 /lpf (0-5) Urine Bacteria (Auto) NEG (NEG) Prothrombin Time 14.7 SECONDS (9.0-12.0) Prothromb Time International Ratio 1.4 (0.9-1.1) Laboratory results reviewed by me Medications Administered Medications (Trade) Dose Ordered Sig/Miguel Route Start Time Stop Time Status Last Admin Dose Admin Ondansetron HCl (Zofran Inj) 4 mg NOW STAT IV 12/07/16 02:39 12/07/16 02:41 DC 12/07/16 02:46 4 MG Prochlorperazine Edisylate (Compazine Inj) 10 mg NOW STAT IV 12/07/16 03:17 12/07/16 03:19 DC 12/07/16 03:29 10 MG Morphine Sulfate (MoRPHine SULFATE INJ) 4 mg NOW STAT IV 12/07/16 03:17 12/07/16 03:19 DC 12/07/16 03:30 4 MG Lorazepam (Ativan Inj) 1 mg NOW STAT IV 12/07/16 04:10 12/07/16 04:11 DC 12/07/16 04:18 1 MG ECG Indication: abdominal pain, nausea Rate (beats per minute): 63 Rhythm: other (Paced Rhythm) Findings: left axis deviation, no ectopy ED Course 0221: The patient was evaluated in room A2. A complete history and physical exam was performed. 0239: Ordered Zofran Inj 4 mg IV 0317: Ordered Morphine Sulfate 4 mg IV, Compazine Inj 10 mg IV 0349: Ordered Dilaudid Inj 0.5 mg IV 0410: Ordered Ativan Inj 1 mg IV 0418: Ordered Ativan Inj 2 mg .ROUTE 0535: After reexamination, the abdomen is soft, nontender, without rebound/ rigidity/guarding. His nausea is better as well. 0545: I reevaluated the patient. Discussed results and discharge instructions: He verbalized understanding and agreement. The patient is ready for discharge. Medical Decision Differential diagnoses include but are not limited to; appendicitis, diverticulitis, PUD, biliary pathology, UTI, pancreatitis, obstruction, mesenteric ischemia, aortic pathology, infections, inflammatory bowel disease, renal colic, sepsis, and cellulitis. Repeat examination at 5:45 AM the patient's resting in no distress is no further nausea his abdomen is very soft is no rebound rigidity guarding no tenderness. He states he feels improved. I discussed the workup of the patient at bedside he will be returned to [facility] for further rehabilitation and evaluation Impression Primary Impression: Abdominal pain Additional Impression: Nausea Scribe Attestation The scribe's documentation has been prepared under my direction and personally reviewed by me in its entirety. I confirm that the note above accurately reflects all work, treatment, procedures, and medical decision making performed by me. Departure Information Dispostion Home / Self-Care Patient Instructions Abdominal Pain, My [facility] Problem Qualifiers Primary Impression: Abdominal pain Abdominal location: generalized Qualified Codes: R10.84 - Generalized abdominal pain
[2016-12-07 02:53] LABS: BASO % 0.3 %; BASO ABS # 0.03 K/uL (0-0.2); COMPLETE YES; EOS % 0.4 %; HEMATOCRIT 34.9 % (42-52); IG% 0.4 %; LYMPH ABS # 0.67 K/uL (1.2-3.4); MEAN CELL VOLUME 83.7 fL (80-100); MEAN CORPUSCULAR HEMOGLOBIN 27.1 pg (25-34); MEAN CORPUSCULAR HGB CONC 32.4 g/dl (32-36); MEAN PLATELET VOLUME 9.6 fL (7.4-10.4); MONO % 1.6 %; NEUT % 91.3 %; PLATELET COUNT 288 K/uL (130-400); RED BLOOD COUNT 4.17 M/uL (4.7-6.1); WHITE BLOOD COUNT 11.16 K/uL (4.8-10.8)
[2016-12-07] MEDS ORDERED: TRAZ50TA35 PO (03:10)
[2016-12-07] MEDS ORDERED: APIX1TAB PO (03:14)
[2016-12-07] MEDS ORDERED: BACI500O11 TOP (03:16)
[2016-12-07] MEDS ORDERED: MoRPHine SULFATE 4 MG/ML 1 ML CARP\\VIAL IV STA (03:17)
[2016-12-07] MEDS ORDERED: PROCHLORPERAZINE 5 MG/ML 2 ML VIAL IV STA ×2 (03:17→06:27)
[2016-12-07 03:21] LABS: BUN/CREATININE RATIO 21.6 (10-20); CALCIUM 8.9 mg/dl (8.5-10.1); CREATININE 2.2 mg/dl (0.60-1.40); POTASSIUM 4.7 mmol/L (3.5-5.1)
[2016-12-07] MEDS ORDERED: NVLGI/PEN SQ (03:26)
[2016-12-07] MEDS ORDERED: PANT40TA PO (03:27)
[2016-12-07] MEDS ORDERED: ONDA8TAB6 PO (03:29)
[2016-12-07] MEDS ORDERED: DOCU100C31 PO (03:30)
[2016-12-07] MEDS ORDERED: ONDA4TAB46 PO (03:30)
[2016-12-07] MEDS ORDERED: ACET-1256 PO (03:33)
[2016-12-07] MEDS ORDERED: ACET-749 PO (03:34)
[2016-12-07] MEDS ORDERED: HYDROmorphone INJ 0.5 MG/0.5 ML SYR IV STA (03:49)
[2016-12-07] MEDS ORDERED: LORAZEPAM 2 MG/ML 1 ML VIAL IV STA (04:10)
[2016-12-07] MEDS ORDERED: LORAZEPAM 2 MG/ML 1 ML VIAL ONE (04:18)
[2016-12-07 05:19] LABS: INR 1.4 (0.9-1.1); PROTHROMBIN TIME (PATIENT) 14.7 SECONDS (9.0-12.0)
[2016-12-07 05:19] LABS: URINE APPEARANCE CLEAR (CLEAR); URINE BILIRUBIN NEG (NEG); URINE COLOR YELLOW; URINE NITRITE NEG (NEG); URINE PH 6.5 (4.5-7.5); URINE SPECIFIC GRAVITY 1.016 (1.000-1.030); UROBILINOGEN NEG (NEG); ZZUR CULT IF INDIC CLEAN CATCH NO
[2016-12-07 05:21] LABS: MANUAL MICROSCOPIC REQUIRED? NO; REVIEW REQ? NO
[2016-12-07] MEDS ORDERED: HydrALAZINE HCL 20 MG/ML VIAL IV. STA (06:27)
--- NOTE | 2016-12-07 07:46 | DIAGNOSTIC IMAGING REPORT ---
CT SCAN OF THE ABDOMEN AND PELVIS WITHOUT IV CONTRAST CLINICAL HISTORY: Generalized abdominal pain. COMPARISON STUDY: No priors. TECHNIQUE: CT scan of the abdomen and pelvis is performed from the lung bases to the proximal femora. Images are reviewed in the axial, sagittal, and coronal planes. IV contrast was not administered for this examination as per the referring clinician. Note that the examination was performed in significantly suboptimal fashion without oral and IV contrast. Automated dose control exposure was utilized. CT DOSE: 2117.71 mGy.cm FINDINGS: Lung bases: The heart is markedly enlarged and without pericardial effusion. Pacemaker leads are noted. The lung bases are clear. There is a tiny hiatal hernia. Liver: The unenhanced liver is enlarged, measuring 24.3 cm in length. The liver demonstrates diffusely diminished attenuation consistent with hepatic steatosis. There is mild central intrahepatic biliary ductal dilatation. Gallbladder: Surgically absent noting clips in the gallbladder fossa. Spleen: The spleen is enlarged, measuring 15.3 cm in length. Pancreas: There is moderate fatty atrophy of the pancreas which is grossly unremarkable. Adrenal glands: Unremarkable. Kidneys: The unenhanced kidneys demonstrate cortical atrophy and are without hydronephrosis. There are no renal calculi identified. A 1.7 cm exophytic cyst arises from the right upper pole. Abdominal vasculature: The abdominal aorta is normal in course and caliber noting moderate atherosclerotic calcification. 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 An IVC filter is present within the right inferior vena cava which is diminutive and likely chronically occluded. There is also likely chronic occlusion of the right iliac veins. There are caput medusae, with lower venous collaterals identified in the right groin and perineal region. Bowel: The small bowel and colon are normal in course and caliber. The appendix is well-visualized and normal. Peritoneum: There is no intraperitoneal free air or abdominal ascites. Lymphadenopathy: There are enlarged retroperitoneal and right iliac chain lymph nodes. Retroperitoneal lymph nodes measure up to 1.4 cm in short axis. Right iliac chain nodes measure up to 1.4 cm in short axis. Pelvic viscera: The prostate gland is enlarged and heterogeneous, measuring 5.7 cm in diameter. The bladder is mildly distended. The bladder wall is thickened and trabeculated consistent with chronic outlet obstruction. Skeletal structures: The skeletal structures are osteopenic. Mild lumbosacral spondylosis is observed. Degenerative change is seen in the hips. No lytic or blastic lesions are seen. Soft tissues: There is mild body wall edema. IMPRESSION: 1. There are no acute infectious or inflammatory findings in the abdomen or pelvis. 2. Hepatomegaly and hepatic steatosis. 3. Splenomegaly. 4. Marked cardiomegaly. 5. 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 The right IVC and the right iliac veins are likely chronically occluded and there are large venous collaterals. 6. Additional findings as above. 1. Significantly suboptimal examination without oral and IV contrast. 2. Electronically signed by: Neville Izquierdo M.D. 12/07/2016 7:44 AM Dictated Date/Time: 12/07/2016 7:35 AM
[2016-12-07 08:00] VITALS: O2SAT 99; Ht 203.2 cm; Wt 161.8 kg
[2016-12-07] MEDS ORDERED: ACETAMINOPHEN 325 MG TAB PO PRN (08:45)
[2016-12-07] MEDS ORDERED: ALBUTEROL HFA 8 GM INHALER INH PRN (09:00)
[2016-12-07] MEDS ORDERED: BISACODYL 10 MG SUPP PR PRN (09:00)
[2016-12-07] MEDS ORDERED: DOCUSATE SODIUM 100 MG CAP PO PRN (09:00)
[2016-12-07] MEDS ORDERED: NITROGLYCERIN 0.4 MG SL PER TAB CHARGE UT PRN (09:00)
[2016-12-07] MEDS ORDERED: DEXTROSE 50% 50 ML SYR IV PRN (09:00)
[2016-12-07] MEDS ORDERED: GLUCAGON FOR INJ 1 MG VIAL SQ PRN (09:00)
[2016-12-07] MEDS ORDERED: PROCHLORPERAZINE INJ 10 MG in SYRINGE 8 ML IV PRN (09:00)
[2016-12-07] MEDS ORDERED: GLUCOSE 40% GEL 15 GM TUBE PO PRN (09:00)
[2016-12-07] MEDS ORDERED: GLUCOSE 10 TABS/TUBE PO PRN (09:00)
[2016-12-07] MEDS ORDERED: SODIUM CHLORIDE 0.9% 1000ML 1,000 ML IV SCH (09:00)
[2016-12-07] MEDS ORDERED: IV FLUIDS COMPLETED PRN (09:15)
[2016-12-07] MEDS ORDERED: HydrALAZINE HCL 20 MG/ML VIAL IV. PRN (09:30)
--- NOTE | 2016-12-07 09:49 | History and Physical ---
History & Physical Date & Time of Service: Dec 07, 2016 at 09:01 Chief Complaint: Abdominal Pain/Nausea Primary Care Physician: Ra Sullivan D.O. History of Present Illness Source: patient This is a 56 y/o male with PMHx of CKD stage III, Insulin-Dependent DM 2, Systolic CHF on Lasix, CAD, chronic Afib on Eliquis, HTN, Dyslipidemia and other problems as outlined below who presents to the ED from [facility] with intractable N/V x 2 days. Pt was recently admitted to [facility] [address] from -12/06 with Hyperkalemia and RLE Cellulitis. Wound culture + staph aureus. Pt was treated with IV Vanco as inpatient and discharged to [facility] on Doxycycline. Pt reports that 2 days ago he developed mild nausea. Since that time the nausea has become constant and he has been vomiting at least 4 times daily. Sxs are assoc with chills, loss of of appetite, diffuse 8/10 abd pain and dysuria. Last BM was 2 days ago. He has been taking Zofran with no relief. Pt denies fever, diaphoresis, chest pain, palpitations, SOB, wheezing, hematemesis, hematuria, worsening LE edema, calf pain, lightheadedness/ dizziness. In the ED, BP is elevated on arrival. Pt is afebrile with leukocytosis >11k. POC lactic acid 1.2. LFTs WNL. UA negative. CT abd/pelvis is negative for acute process. Pt received multiple anti-emetics in the ED and continues to have severe nausea. Pt is stable and will be admitted for further evaluation and treatment. Past Medical/Surgical History Medical Problems: (1) CAD (coronary artery disease) Status: Chronic (2) Chronic a-fib Status: Chronic (3) Diabetes mellitus, type II Status: Chronic (4) Dyslipidemia Status: Chronic (5) Heart attack Status: Resolved (6) History of pulmonary embolus (PE) Status: Chronic (7) History of stroke Status: Chronic (8) HTN (hypertension) Status: Chronic (9) Ischemic cardiomyopathy Status: Resolved (10) Obstructive hydrocephalus Status: Chronic (11) MERY (obstructive sleep apnea) Status: Chronic (12) Pulmonary embolism Status: Resolved (13) Stage 3 chronic kidney disease Status: Chronic (14) Systolic CHF Status: Chronic Surgical Problems: (1) History of cholecystectomy Permanent Comment: 08/23/16 Status: Resolved Family History No pertinent family history Social History Smoking Status: Never Smoker Alcohol Use: none Drug Use: none Marital Status: Housing status: other ([facility]) Occupational Status: retired Immunizations History of Influenza Vaccine: Unknown Multi-Drug Resistant 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 Allergies Coded Allergies: Amoxicillin (Verified Allergy, Unknown, unknown, 12/07/16) Cephalosporins (Verified Allergy, Unknown, unknown, 12/07/16) Ciprofloxacin (Verified Allergy, Unknown, unknown, 12/07/16) Clindamycin (Verified Allergy, Unknown, unknown, 12/07/16) Iodinated Diagnostic Agents (Verified Allergy, Unknown, unknown, 12/07/16) Penicillins (Unverified Allergy, Unknown, unknown, 11/15/16) Uncoded Allergies: PERFLUTREN LIPID MICROSPHERES (Allergy, Unknown, unknown, 12/07/16) Home Medications Scheduled Apixaban (Eliquis), 5 MG PO Q12 Aspirin (Aspirin Chewable), 81 MG PO QAM Atorvastatin (Lipitor), 40 MG PO QPM Bacitracin (Topical) (Bacitracin), 1 APPLN TOP HS Carvedilol (Coreg), 25 MG PO Q12 Doxycycline Hyclate (Vibramycin), 1 CAP PO BID Furosemide (Lasix), 80 MG PO BID Insulin Aspart (Novolog Flexpen), UNITS SQ ACHS Insulin Aspart (Novolog Flexpen), 15 UNITS SQ TIDM Multiple Vitamins W/ Minerals (Theragran-M), 1 TAB PO QAM Pantoprazole (Protonix), 40 MG PO QPM Polyethylene Glycol 3350 (Miralax), 17 GM PO DAILY Sennosides-Docusate Sodium (Sennalax-S), 2 TABS PO HS Trazodone Hcl (Trazodone), 50 MG PO HS Ursodiol (Ursodiol), 1 CAP PO Q12 Venlafaxine Hcl (Venlafaxine Extended Rel), 75 MG PO HS Scheduled PRN Acetaminophen (Tylenol), 500 MG PO Q4 PRN for Pain or Fever Acetaminophen/Codeine (Tylenol W/Codeine #3), 1 TAB PO Q6 PRN for Pain Albuterol Hfa (Ventolin Hfa), 2 PUFFS INH Q6H PRN for Wheezing Bisacodyl (Dulcolax), 1 SUPP OH Q24H PRN for no bm past 2 days Docusate Sodium (Docusate Sodium), 1 CAP PO BID PRN for Constipation Nitroglycerin (Nitrostat), 0.4 MG UT UD PRN for Chest Pain Ondansetron Hcl (Zofran), 8 MG PO Q8 PRN for Nausea Review of Systems Constitutional: + chills, + fatigue, + weakness, No fever, No sweats Eyes: No worsening of vision ENT: No hearing loss Respiratory: No cough Cardiovascular: No chest pain, No claudication, No edema Abdomen: + constipation, + nausea, + pain, + vomiting, No GI bleeding, No diarrhea Musculoskeletal: No calf pain, No swelling Genitourinary - Male: + dysuria, No hematuria, No urinary frequency Neurologic: + weakness Psychiatric: No depression symptoms Endocrine: + fatigue Hematologic / Lymphatic: No abnormal bleeding/bruising Physical Exam Vital Signs Date Time Temp Pulse Resp B/P Pulse Ox O2 Delivery O2 Flow Rate FiO2 12/07/16 08:00 99 Room Air 12/07/16 07:00 63 19 172/100 99 12/07/16 06:59 177/98 12/07/16 06:45 68 23 12/07/16 06:44 204/115 12/07/16 06:40 62 15 99 12/07/16 06:35 24 12/07/16 06:30 63 19 98 12/07/16 06:26 190/94 12/07/16 06:25 61 24 91 12/07/16 06:20 65 19 97 12/07/16 06:15 64 15 98 12/07/16 06:13 63 22 202/90 98 Room Air 12/07/16 06:11 202/90 12/07/16 06:10 64 16 12/07/16 06:06 68 12/07/16 05:11 63 20 171/95 96 Room Air 12/07/16 04:32 63 22 184/99 92 Room Air 12/07/16 03:32 67 28 188/120 100 Room Air 12/07/16 03:00 64 12/07/16 02:47 36.9 66 20 190/115 99 Room Air General Appearance: WD/WN, + mild distress (due to nausea), + obese, + pertinent finding (Pt is sitting up in bed with no family at bedside) Head: normocephalic, atraumatic Eyes: normal inspection ENT: hearing grossly normal Neck: supple Respiratory/Chest: chest non-tender, lungs clear, normal breath sounds, no respiratory distress Cardiovascular: regular rate, rhythm, no murmur Abdomen/GI: normal bowel sounds, soft, + tenderness (diffuse; worse in LUQ) Back: normal inspection Extremities/Musculoskelatal: + pedal edema (1+ pitting edema bilat ), + pertinent finding (chronic venous stasis skin changes; wound to RLE ) Neurologic/Psych: alert, normal mood/affect, oriented x 3 Skin: warm/dry Diagnostics Laboratory Results Results Past 24 Hours Test 12/07/16 02:40 12/07/16 02:44 12/07/16 04:27 12/07/16 04:58 Range/Units White Blood Count 11.16 4.8-10.8 K/uL Red Blood Count 4.17 4.7-6.1 M/uL Hemoglobin 11.3 14.0-18.0 g/dL Hematocrit 34.9 42-52 % Mean Corpuscular Volume 83.7 80-100 fL Mean Corpuscular Hemoglobin 27.1 25-34 pg Mean Corpuscular Hemoglobin Concent 32.4 32-36 g/dl Platelet Count 288 130-400 K/uL Mean Platelet Volume 9.6 7.4-10.4 fL Neutrophils (%) (Auto) 91.3 % Lymphocytes (%) (Auto) 6.0 % Monocytes (%) (Auto) 1.6 % Eosinophils (%) (Auto) 0.4 % Basophils (%) (Auto) 0.3 % Neutrophils # (Auto) 10.19 1.4-6.5 K/uL Lymphocytes # (Auto) 0.67 1.2-3.4 K/uL Monocytes # (Auto) 0.18 0.11-0.59 K/uL Eosinophils # (Auto) 0.04 0-0.5 K/uL Basophils # (Auto) 0.03 0-0.2 K/uL RDW Standard Deviation 48.2 36.4-46.3 fL RDW Coefficient of Variation 15.8 11.5-14.5 % Immature Granulocyte % (Auto) 0.4 % Immature Granulocyte # (Auto) 0.05 0.00-0.02 K/uL Sodium Level 144 136-145 mmol/L Potassium Level 4.7 3.5-5.1 mmol/L Chloride Level 113 98-107 mmol/L Carbon Dioxide Level 25 21-32 mmol/L Anion Gap 6.0 3-11 mmol/L Blood Urea Nitrogen 48 7-18 mg/dl Creatinine 2.20 0.60-1.40 mg/dl Est Creatinine Clear Calc Drug Dose 64.1 ml/min Estimated GFR () 37.2 Estimated GFR (Non- 32.1 BUN/Creatinine Ratio 21.6 10-20 Random Glucose 185 70-99 mg/dl Calcium Level 8.9 8.5-10.1 mg/dl Magnesium Level 1.9 1.8-2.4 mg/dl Total Bilirubin 0.5 0.2-1 mg/dl Direct Bilirubin 0.2 0-0.2 mg/dl Aspartate Amino Transf (AST/SGOT) 17 15-37 U/L Alanine Aminotransferase (ALT/SGPT) 20 12-78 U/L Alkaline Phosphatase 189 45-117 U/L Total Protein 9.0 6.4-8.2 gm/dl Albumin 3.1 3.4-5.0 gm/dl Lipase 130 73-393 U/L Bedside Lactic Acid Venous 1.21 0.90-1.70 mmol/L Urine Color YELLOW Urine Appearance CLEAR CLEAR Urine pH 6.5 4.5-7.5 Urine Specific [place] 1.016 1.000-1.030 Urine Protein 3+ NEG Urine Glucose (UA) 1+ NEG Urine Ketones TRACE NEG Urine Occult Blood 1+ NEG Urine Nitrite NEG NEG Urine Bilirubin NEG NEG Urine Urobilinogen NEG NEG Urine Leukocyte Esterase NEG NEG Urine WBC (Auto) 1-5 0-5 /hpf Urine RBC (Auto) 5-10 0-4 /hpf Urine Hyaline Casts (Auto) 1-5 0-5 /lpf Urine Epithelial Cells (Auto) 10-20 0-5 /lpf Urine Bacteria (Auto) NEG NEG Prothrombin Time 14.7 9.0-12.0 SECONDS Prothromb Time International Ratio 1.4 0.9-1.1 Microbiology Results 12/07/16 Blood Culture, Received Pending 12/07/16 Blood Culture, Received Pending Diagnostic Radiology CT ABD/PELVIS IMPRESSION: 1. There are no acute infectious or inflammatory findings in the abdomen or pelvis. 2. Hepatomegaly and hepatic steatosis. 3. Splenomegaly. 4. Marked cardiomegaly. 5. 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 The right IVC and the right iliac veins are likely chronically occluded and there are large venous collaterals. 6. Additional findings as above. 1. Significantly suboptimal examination without oral and IV contrast. EKG EKG: vent-paced rhythm at 63 bpm with no change when compared to EKG from 11/15/16 Impression Assessment and Plan INTRACTABLE NAUSEA/VOMITING pt presented from [facility] with intractable N/V assoc with diffuse abd pain -admit observation status to med/surg -pt is afebrile with leukocytosis>11k -CT abd/pelvis negative for acute process. 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 PT/OT evals placed. -Pt seen in collaboration with Dr. Salazar. Please see his addendum for further details. Thanks! Attending Addendum Pt was seen and examined. Agreed with Kayleigh FRANCIS physical exam, assessment and plan. 56 y/o male with PMHx of CKD stage III, Insulin-Dependent DM 2, Systolic CHF on Lasix, CAD, chronic Afib on Eliquis, HTN, Dyslipidemia presents to the ED from [facility] with intractable N/V started about 2 days. Pt was recently admitted to [facility] [address] from 12/03-12/06 with Hyperkalemia and RLE Cellulitis. His wound culture grew staph aureus. Received IV vanco during his admission and he was discharged to [facility] on Doxycycline. Pt said that he feels like the N/V started after he was starting on the doxy. He said that the nausea has gotten worst and associated with vomiting. Denies any chest pain, palpitation, dizziness. General- Obese, no acute respiratory distress Head- atraumatic Eyes- PERRL, EOMI ENT- oropharynx clear Neck- supple, no JVD Lungs- No wheezing Heart- regular rhythm; no murmur Abdomen- normal bowel sounds, +Tenderness Extremities- +edema, no calf tenderness, chronic venous stasis skin changes; wound to RLE Neuro- alert, oriented x 3; PERRL, EOMI; no facial palsy A/P INTRACTABLE NAUSEA/VOMITING Possible related to GI side effects from doxycycline vs viral etiology afebrile with leukocytosis mildly elevated CT abd/pelvis negative for acute process. No obstruction Continue supportive management cont IVF, anti-emetics and pain mgmt blood and urine cx-pending Lab, Imaging reviewed Please Refer to Kayleigh FRANCIS documentation for other problems. Genesis Salazar MD Advanced Directives Existing Living Will: No Existing Power of Assembly Line Supervisor: No VTE Prophylaxis VTE Risk Assessment Done? Y/N: Yes Risk Level: High
[2016-12-07 10:30] VITALS: BP 197/102; PULSE 62; TEMP 36.5; O2SAT 98
[2016-12-07] MEDS: CARVEDILOL 25 MG TAB PO SCH ×2 (11:00→22:28)
[2016-12-07] MEDS: POLYETHYLENE (MIRALAX) 17 GM PACK PO SCH (11:00)
[2016-12-07] MEDS: FUROSEMIDE 80 MG TAB PO SCH ×2 (11:00→20:00)
[2016-12-07] MEDS: DOXYCYCLINE HYCLATE 100 MG CAP PO SCH ×2 (11:00→22:27)
[2016-12-07] MEDS: APIXABAN 2.5 MG TAB PO SCH ×2 (11:00→22:31)
[2016-12-07] MEDS: URSODIOL 300 MG CAP PO SCH ×2 (11:00→22:30)
[2016-12-07] MEDS: CEROVITE ADV FORMULA TAB PO SCH (11:00)
[2016-12-07 11:38] VITALS: BP 152/76; PULSE 59
[2016-12-07] MEDS: INSULIN ASPART 100 UNITS/ML 3 ML PEN SC SCH ×3 (13:21→22:25)
[2016-12-07 15:31] VITALS: BP 194/105; PULSE 63; TEMP 36.7; O2SAT 97
[2016-12-07] MEDS: ONDANSETRON INJ 2 MG/ML 2 ML VIAL IV PRN (19:22)
[2016-12-07] MEDS: ACETAMINOPHEN/CODEINE 300/30MG TAB PO PRN (20:01)
[2016-12-07 22:00] VITALS: BP 189/109
[2016-12-07] MEDS: ATORVASTATIN 40 MG TAB PO SCH (22:29)
[2016-12-07] MEDS: VENLAFAXINE HCL XR 75 MG CAPXR PO SCH (22:29)
[2016-12-07] MEDS: DOCUSATE SODIUM/SENNA 50/8.6MG TAB PO SCH (22:34)
[2016-12-07] MEDS: TRAZODONE HCL 50 MG TAB PO SCH (22:37)
[2016-12-07] MEDS: PANTOprazole SOD 40 MG TAB PO SCH (22:37)
[2016-12-07] MEDS: ONDANSETRON 4 MG TAB PO SCH (22:38)
[2016-12-07] MEDS: BACITRACIN OINT 15 GM TUBE EXT SCH (22:38)
[2016-12-07 23:51] VITALS: BP 181/102; PULSE 63; TEMP 36.6; O2SAT 97
[2016-12-08] VITALS (8 sets, daily range): BP systolic 162–194; BP diastolic 78–94; PULSE 60–63; TEMP 36.4–36.8; O2SAT 97–99
[2016-12-08] MEDS: TRAMADOL HCL 50 MG TAB PO PRN ×2 (00:05→17:44)
[2016-12-08] MEDS: ACETAMINOPHEN/CODEINE 300/30MG TAB PO PRN ×2 (01:51→15:52)
[2016-12-08 06:17] LABS: HEMATOCRIT 32.2 % (42-52); MEAN CORPUSCULAR HEMOGLOBIN 27.2 pg (25-34); MEAN PLATELET VOLUME 9.6 fL (7.4-10.4); PLATELET COUNT 213 K/uL (130-400); RED BLOOD COUNT 3.79 M/uL (4.7-6.1); WHITE BLOOD COUNT 9.71 K/uL (4.8-10.8)
[2016-12-08 06:19] LABS: BUN/CREATININE RATIO 18.1 (10-20); CALCIUM 8.8 mg/dl (8.5-10.1)
[2016-12-08] MEDS ORDERED: HydrALAZINE HCL 20 MG/ML VIAL IV. PRN (08:00)
[2016-12-08] MEDS: URSODIOL 300 MG CAP PO SCH ×2 (08:11→20:45)
[2016-12-08] MEDS: ASPIRIN 81 MG CHEW PO SCH (08:11)
[2016-12-08] MEDS: APIXABAN 2.5 MG TAB PO SCH ×2 (08:11→20:45)
[2016-12-08] MEDS: ONDANSETRON 4 MG TAB PO SCH ×2 (08:11→20:42)
[2016-12-08] MEDS: CEROVITE ADV FORMULA TAB PO SCH (08:11)
[2016-12-08] MEDS: DOXYCYCLINE HYCLATE 100 MG CAP PO SCH ×2 (08:11→22:08)
[2016-12-08] MEDS: FUROSEMIDE 80 MG TAB PO SCH ×2 (08:11→20:42)
[2016-12-08] MEDS: CARVEDILOL 25 MG TAB PO SCH ×2 (08:12→20:44)
[2016-12-08] MEDS: POLYETHYLENE (MIRALAX) 17 GM PACK PO SCH (08:12)
[2016-12-08] MEDS: INSULIN ASPART 100 UNITS/ML 3 ML PEN SC SCH ×4 (08:18→20:48)
[2016-12-08] MEDS: AMLODIPINE BESYLATE 5 MG TAB PO SCH (10:23)
--- NOTE | 2016-12-08 12:01 | Progress Note ---
Medicine Progress Note Date & Time of Visit: Dec 08, 2016 at 11:39. Subjective Pt was seen and examined sitting at the edge of the bed with no distress Pt said that he had a bad night He said that he continues to have nausea He said that now he had a few episodes of watery diarrhea that started last night He ate his breakfast this morning He said that the Zofran does not help with the nausea denies any chest pain, palpitation and sob. Objective Last 8 Hrs Date Time Temp Pulse Resp B/P Pulse Ox O2 Delivery O2 Flow Rate FiO2 12/08/16 08:00 Room Air 12/08/16 07:25 36.5 62 20 194/85 99 Room Air Physical Exam: General- No acute respiratory distress Head- atraumatic Eyes- PERRL, EOMI ENT- oropharynx clear Neck- supple, no JVD Lungs- No wheezing, No crackles Heart- regular rhythm; no murmur Abdomen- normal bowel sounds, + diffuse tender Extremities- + edema, no calf tenderness Neuro- alert, oriented x 3; PERRL, EOMI; no facial palsy Skin- warm & dry Laboratory Results: Last 24 Hours Test 12/07/16 16:25 12/07/16 20:00 12/08/16 05:14 12/08/16 05:25 Bedside Glucose 133 mg/dl 195 mg/dl White Blood Count 9.71 K/uL Red Blood Count 3.79 M/uL Hemoglobin 10.3 g/dL Hematocrit 32.2 % Mean Corpuscular Volume 85.0 fL Mean Corpuscular Hemoglobin 27.2 pg Mean Corpuscular Hemoglobin Concent 32.0 g/dl RDW Standard Deviation 49.1 fL RDW Coefficient of Variation 16.0 % Platelet Count 213 K/uL Mean Platelet Volume 9.6 fL Sodium Level 143 mmol/L Potassium Level 4.0 mmol/L Chloride Level 112 mmol/L Carbon Dioxide Level 25 mmol/L Anion Gap 6.0 mmol/L Blood Urea Nitrogen 36 mg/dl Creatinine 2.00 mg/dl Est Creatinine Clear Calc Drug Dose 70.5 ml/min Estimated GFR () 41.7 Estimated GFR (Non- 36.0 BUN/Creatinine Ratio 18.1 Random Glucose 168 mg/dl Calcium Level 8.8 mg/dl Test 12/08/16 07:46 12/08/16 11:10 Bedside Glucose 163 mg/dl 178 mg/dl Assessment & Plan INTRACTABLE NAUSEA/VOMITING Possible related to GI side effects from doxycycline vs viral etiology afebrile with leukocytosis mildly elevated CT abd/pelvis negative for acute process. No obstruction Continue supportive management cont IVF, anti-emetics and pain mgmt blood and urine cx-pending Will try to change abx if symptoms worsening to see if that will help Pt has so many allergic in his list, make it difficult to switch the abx. 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 CKD STAGE III creatinine around baseline at 2.2 gentle IVF monitor with daily prp avoid nephrotoxic agents when able 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 hold NovoLog start ISS monitor BSG AC HS ISCHEMIC CARDIOMYOPATHY echo 2014 EF 45-50% AICD in place cont Lasix CHRONIC AFIB EKG: paced rhythm cont Eliquis DVT PROPHYLAXIS cont Eliquis CODE STATUS FULL CODE Current Inpatient Medications: Current Inpatient Medications Medications (Trade) Dose Ordered Sig/Miguel Route Start Time Stop Time Status Last Admin Dose Admin Acetaminophen (Tylenol Tab) 650 mg Q4H PRN PO 12/07/16 08:45 01/06/17 08:44 Ondansetron HCl (Zofran Inj) 4 mg Q6H PRN IV 12/07/16 08:45 01/06/17 08:44 12/07/16 19:22 4 MG Acetaminophen/ Codeine Phosphate (Tylenol w/ Codeine #3 Tab) 1 tab Q6 PRN PO 12/07/16 09:00 01/06/17 08:59 12/08/16 01:51 1 TAB Albuterol (Ventolin Hfa Inhaler) 2 puffs Q6H PRN INH 12/07/16 09:00 01/06/17 08:59 Apixaban (Eliquis Tab) 5 mg Q12 PO 12/07/16 09:00 01/06/17 08:59 4/27/17 08:11 5 MG Aspirin (Aspirin Chew) 81 mg QAM PO 12/07/16 09:00 01/06/17 08:59 12/08/16 08:11 81 MG Atorvastatin Calcium (Lipitor Tab) 40 mg QPM PO 12/07/16 21:00 01/06/17 20:59 12/07/16 22:29 40 MG Bisacodyl (Dulcolax Supp) 10 mg Q24H PRN NV 12/07/16 09:00 01/06/17 08:59 Carvedilol (Coreg Tab) 25 mg Q12 PO 12/07/16 09:00 01/06/17 08:59 12/08/16 08:12 25 MG Docusate Sodium (coLACE CAP) 100 mg BID PRN PO 12/07/16 09:00 01/06/17 08:59 Doxycycline Hyclate (Vibramycin Cap) 100 mg BID PO 12/07/16 09:00 12/13/16 23:59 12/08/16 08:11 100 MG Furosemide (Lasix Tab) 80 mg BID PO 12/07/16 09:00 01/06/17 08:59 12/08/16 08:11 80 MG Multivitamins/ Minerals (Multivitamin W/ Minerals Tab) 1 tab QAM PO 12/07/16 09:00 01/06/17 08:59 12/08/16 08:11 1 TAB Nitroglycerin (Nitrostat Tab) 0.4 mg UD PRN UT 12/07/16 09:00 01/06/17 08:59 Pantoprazole Sodium (Protonix Tab) 40 mg QPM PO 12/07/16 21:00 01/06/17 20:59 12/07/16 22:37 40 MG Senna/Docusate Sodium (Senokot S Tab) 2 tab HS PO 12/07/16 21:00 01/06/17 20:59 12/07/16 22:34 2 TAB Trazodone HCl (Desyrel Tab) 50 mg HS PO 12/07/16 21:00 01/06/17 20:59 12/07/16 22:37 50 MG Ursodiol (Actigall Cap) 300 mg Q12 PO 12/07/16 09:00 01/06/17 08:59 12/08/16 08:11 300 MG Venlafaxine HCl (effeXOR EXTENDED REL CAP) 75 mg HS PO 12/07/16 21:00 01/06/17 20:59 12/07/16 22:29 75 MG Bacitracin (Bacitracin Oint) 1 appln HS EXT 12/07/16 21:00 01/06/17 20:59 12/07/16 22:38 1 APPLN Polyethylene (Miralax Powder Packet) 17 gm QAM PO 12/07/16 09:00 01/06/17 08:59 12/08/16 08:12 17 GM Insulin Aspart (novoLOG ASPART) SLIDING SCALE If C... ACHS SC 12/07/16 11:00 01/06/17 10:59 12/08/16 08:18 8 UNITS Glucose (Glucose 40% Gel) 15-30 GRAMS 15 GRAMS... UD PRN PO 12/07/16 09:00 01/06/17 08:59 Glucose (Glucose Chew Tab) 4-8 Tablets 4 Tabl... UD PRN PO 12/07/16 09:00 01/06/17 08:59 Dextrose (Dextrose 50% 50ML Syringe) 25-50ML OF 50% DW IV FOR... UD PRN IV 12/07/16 09:00 01/06/17 08:59 Glucagon (Glucagon Inj) 1 mg UD PRN SQ 12/07/16 09:00 01/06/17 08:59 Tramadol HCl (Ultram Tab) 50 mg Q4H PRN PO 12/07/16 09:00 01/06/17 08:59 12/08/16 00:05 50 MG Miscellaneous (Iv Fluids Completed) 1 ea PRN PRN N/A 12/07/16 09:15 12/07/17 09:14 Hydralazine HCl (HydrALAZINE INJ) 10 mg Q6H PRN IV. 12/07/16 09:30 01/06/17 09:29 Ondansetron HCl (Zofran Tab) 4 mg Q12H PO 12/07/16 20:30 12/13/16 23:59 12/08/16 08:11 4 MG Hydralazine HCl (HydrALAZINE INJ) 10 mg Q6H PRN IV. 12/08/16 08:00 01/07/17 07:59 Amlodipine Besylate (Norvasc Tab) 5 mg QAM PO 12/08/16 09:30 01/07/17 09:29 12/08/16 10:23 5 MG Promethazine HCl (Phenergan Tab) 25 mg Q8H PRN PO 12/08/16 10:30 01/07/17 10:29
[2016-12-08] MEDS: PROMETHAZINE HCL 25 MG TAB PO PRN (15:41)
[2016-12-08] MEDS: ONDANSETRON INJ 2 MG/ML 2 ML VIAL IV PRN (17:44)
[2016-12-08] MEDS: ATORVASTATIN 40 MG TAB PO SCH (20:43)
[2016-12-08] MEDS: VENLAFAXINE HCL XR 75 MG CAPXR PO SCH (20:43)
[2016-12-08] MEDS: DOCUSATE SODIUM/SENNA 50/8.6MG TAB PO SCH (20:44)
[2016-12-08] MEDS: PANTOprazole SOD 40 MG TAB PO SCH (20:46)
[2016-12-08] MEDS: TRAZODONE HCL 50 MG TAB PO SCH (20:46)
[2016-12-08] MEDS: BACITRACIN OINT 15 GM TUBE EXT SCH (20:47)
[2016-12-09] MEDS: ONDANSETRON INJ 2 MG/ML 2 ML VIAL IV PRN ×2 (00:02→23:56)
[2016-12-09] MEDS: HydrALAZINE HCL 20 MG/ML VIAL IV. PRN (00:02)
[2016-12-09] MEDS: TRAMADOL HCL 50 MG TAB PO PRN ×2 (00:02→05:15)
[2016-12-09] MEDS: PROMETHAZINE HCL 25 MG TAB PO PRN ×2 (05:15→14:33)
[2016-12-09 06:30] LABS: MEAN CELL VOLUME 83.9 fL (80-100); MEAN CORPUSCULAR HEMOGLOBIN 26.9 pg (25-34); MEAN PLATELET VOLUME 9.8 fL (7.4-10.4); PLATELET COUNT 235 K/uL (130-400); RED BLOOD COUNT 4.17 M/uL (4.7-6.1); WHITE BLOOD COUNT 11.01 K/uL (4.8-10.8)
[2016-12-09 07:04] LABS: CREATININE 1.9 mg/dl (0.60-1.40)
[2016-12-09 07:05] LABS: BUN/CREATININE RATIO 15.6 (10-20); CALCIUM 8.7 mg/dl (8.5-10.1); MAGNESIUM 1.7 mg/dl (1.8-2.4); POTASSIUM 3.6 mmol/L (3.5-5.1)
[2016-12-09 07:37] VITALS: BP 179/86; PULSE 61; TEMP 36.8; O2SAT 95
[2016-12-09] MEDS: DOXYCYCLINE HYCLATE 100 MG CAP PO SCH (07:46)
[2016-12-09] MEDS: ASPIRIN 81 MG CHEW PO SCH (07:46)
[2016-12-09] MEDS: FUROSEMIDE 80 MG TAB PO SCH ×2 (07:46→21:29)
[2016-12-09] MEDS: CARVEDILOL 25 MG TAB PO SCH ×2 (07:46→21:29)
[2016-12-09] MEDS: CEROVITE ADV FORMULA TAB PO SCH (07:46)
[2016-12-09] MEDS: URSODIOL 300 MG CAP PO SCH ×2 (07:46→21:30)
[2016-12-09] MEDS: APIXABAN 2.5 MG TAB PO SCH ×2 (07:46→21:31)
[2016-12-09] MEDS: ONDANSETRON 4 MG TAB PO SCH ×2 (07:46→21:30)
[2016-12-09] MEDS: POLYETHYLENE (MIRALAX) 17 GM PACK PO SCH (07:47)
[2016-12-09] MEDS: AMLODIPINE BESYLATE 5 MG TAB PO SCH (07:47)
[2016-12-09] MEDS: INSULIN ASPART 100 UNITS/ML 3 ML PEN SC SCH ×4 (08:38→21:39)
[2016-12-09] MEDS: MAGNESIUM SULFATE 1GM / D5W 1 GM in PREMIXED IN D5W 100 ML IV SCH ×2 (10:11→10:56)
--- NOTE | 2016-12-09 13:02 | Gastrointestinal Consultation ---
Gastrointestinal Consultation Date of Consultation: Dec 09, 2016 Attending Physician: Dr. Salazar Consulting Physician: Dr. Carmona Reason for Consultation: Intractable nausea, vomiting History of Present Illness Patient is a 56 year old male patient with a hx of CHF, lower ext DVT, he is S/ P distant CVA. He has been at [facility] for generalized weakness, undergoing rehab. He was sent to [facility] for nausea, vomiting. He is currently on doxycycline for lower leg cellulitis and on a daily PPI. The pt tells us that he has had nausea/vomiting for a month, that it is worse if he lays down. He denies any hematemesis, hematochezia. He has diffuse abdominal pain and headaches. He denies diarrhea or constipation. No fevers. CT on arrival w/o any bowel abnormalities. He is S/P cholecystectomy in August. Past Medical/Surgical History Medical Problems: (1) Anemia Status: Acute (2) CHF (congestive heart failure) Status: Acute (3) Deep vein thrombosis Status: Acute (4) Hypoxia Status: Acute Past Medical History: 1. Venous insufficiency with lower limb ulcer 2. Sleep apnea. 3. Vision impairment 4. Panic disorder 5. HTN 6. Obstructive hydrocephalus 7. CVA with hemiplegia 8. Depression 9. CKD 10. CAD, heart failure 11. Gait abnormality Past Surgical History: 1. EGD 07/28/16 Dr. Rios for LUQ pain: Impression: - Normal esophagus. - Multiple fundic gland polyps. - Normal examined duodenum. - No specimens collected 2. EGD for anemia by Dr. Rios 11/10/15 - Normal esophagus. - Normal stomach. - Normal examined duodenum. - No specimens collected. 3. Colonoscopy 11/10/15 Dr. Rios: - Preparation of the colon was poor. - Stool in the entire examined colon. - Congested, erythematous and ulcerated mucosa at the hepatic flexure. Biopsied. Appearance suggestive of ischemic colitis. - The distal rectum and anal verge are normal on retroflexion view. Path: hepatic flexure bx with fragment of tubular adenoma 4. Cholecystectomy 08/23/16: path with chronic cholecystitis 5. Venous filters 1991, 1998 6. Brain canal shunt. 7. Pacemaker Family History No pertinent family history Social History Smoking Status: Never Smoker Drug Use: none Marital Status: Housing Status: unknown Occupation Status: retired Allergies Coded Allergies: Amoxicillin (Verified Allergy, Unknown, unknown, 12/07/16) Cephalosporins (Verified Allergy, Unknown, unknown, 12/07/16) Ciprofloxacin (Verified Allergy, Unknown, unknown, 12/07/16) Clindamycin (Verified Allergy, Unknown, unknown, 12/07/16) Iodinated Diagnostic Agents (Verified Allergy, Unknown, unknown, 12/07/16) Penicillins (Unverified Allergy, Unknown, unknown, 11/15/16) Uncoded Allergies: PERFLUTREN LIPID MICROSPHERES (Allergy, Unknown, unknown, 12/07/16) Current Medications Home Meds and Scripts Medications Dose Route/Sig Max Daily Dose Days Date Category Dose Instructions Tylenol W/Codeine #3 (Acetaminophen/Codeine Phosphate) 300 Mg/30 Mg Tab 1 Tab PO Q6 PRN 12/07/16 Reported max 3gm apap/24hr Tylenol (Acetaminophen) 500 Mg Tab 500 Mg PO Q4 PRN 12/07/16 Reported use for mild pain 1-3 or fever >101f max 3gm apap/24hr Ventolin Hfa (Albuterol) 200 Puffs/85512 Mcg Aers 2 Puffs INH Q6H PRN 12/07/16 Reported Dulcolax (Bisacodyl) 10 Mg Sup 1 Supp [place] Q24H PRN 12/07/16 Reported Docusate Sodium 100 Mg Cap 1 Cap PO BID PRN 12/07/16 Reported Zofran (Ondansetron HCl) 8 Mg Tab 8 Mg PO Q8 PRN 12/07/16 Reported Nitrostat (Nitroglycerin) 0.4 Mg Tab 0.4 Mg UT UD PRN 12/07/16 Reported Protonix (Pantoprazole Sodium) 40 Mg Tab 40 Mg PO QPM 12/07/16 Reported Theragran-M (Multiple Vitamins W/ Minerals) 1 Tab Tab 1 Tab PO QAM 12/07/16 Reported Novolog Flexpen (Insulin Aspart) 100 Units/Ml Inj 15 Units SQ TIDM 12/07/16 Reported give in addition to sliding scale Vibramycin (Doxycycline Hyclate) 100 Mg Cap 1 Cap PO BID 7 12/07/16 Reported stop 12/13/16 Bacitracin (Bacitracin (Topical)) 500 Unit/Gm Oin 1 Appln TOP HS 12/07/16 Reported apply to affected area Aspirin Chewable (Aspirin) 81 Mg Chew 81 Mg PO QAM 12/07/16 Reported Eliquis (Apixaban) 2.5 Mg Tab 5 Mg PO Q12 12/07/16 Reported Trazodone (Trazodone HCl) 50 Mg Tab 50 Mg PO HS 12/07/16 Reported Miralax (Polyethylene Glycol 3350) 1 Pow Pow 17 Gm PO DAILY 12/07/16 Reported Venlafaxine Extended Rel (Venlafaxine Hcl) 75 Mg Cap 75 Mg PO HS 11/15/16 Reported Ursodiol 300 Mg Cap 1 Cap PO Q12 11/15/16 Reported Sennalax-S (Sennosides-Docusate Sodium) 1 Tab Tab 2 Tabs PO HS 11/15/16 Reported Novolog Flexpen (Insulin Aspart) 100 Units/Ml Inj Units SQ ACHS 11/15/16 Reported sliding scale BSG GIVE INSULIN UNITS 70-130 0 units 131-180 2 181-240 4 241-300 6 301-350 8 351-400 10 >400 12 units and call Lipitor (Atorvastatin Calcium) 40 Mg Tab 40 Mg PO QPM 11/15/16 Reported Coreg (Carvedilol) 25 Mg Tab 25 Mg PO Q12 11/15/16 Reported Lasix (Furosemide) 80 Mg Tab 80 Mg PO BID 11/15/16 Reported take @ 0630 & 1630 Review of Systems Constitutional: + fatigue, + weakness, No chills, No fever Eyes: No worsening of vision ENT: No hearing loss Respiratory: No cough Cardiac: No chest pain Abdomen: + nausea, + pain, + vomiting, No GI bleeding, No constipation, No diarrhea Neuro: + problem reported (headaches), No memory loss Psych: No depression symptoms Heme: No abnormal bleeding/bruising Endo: + fatigue Skin: No rash Physical Exam Date Time Temp Pulse Resp B/P Pulse Ox O2 Delivery O2 Flow Rate FiO2 12/09/16 08:00 Room Air 12/09/16 07:37 36.8 61 20 179/86 95 12/08/16 23:51 Room Air 12/08/16 23:49 36.8 62 20 186/94 97 Room Air 12/08/16 22:21 162/78 12/08/16 20:41 63 193/94 12/08/16 16:00 97 Room Air 12/08/16 15:26 36.4 60 18 188/89 97 Room Air General Appearance: + mild distress (nauseated, leaning over the emesis basin) Neck: no JVD Respiratory/Chest: lungs clear Cardiovascular: regular rate, rhythm, no murmur Abdomen: normal bowel sounds, soft, + tenderness (tender over the entire abdomen but w/o guarding) Extremities: + pertinent finding (edema, icthiosis of the lower extremities. ) Neurologic/Psych: alert, normal mood/affect, oriented x 3 Skin: no jaundice Laboratory Results Last 24 Hours Test 12/08/16 16:44 12/08/16 20:12 12/09/16 05:36 12/09/16 07:42 Bedside Glucose 148 mg/dl 159 mg/dl 171 mg/dl White Blood Count 11.01 K/uL Red Blood Count 4.17 M/uL Hemoglobin 11.2 g/dL Hematocrit 35.0 % Mean Corpuscular Volume 83.9 fL Mean Corpuscular Hemoglobin 26.9 pg Mean Corpuscular Hemoglobin Concent 32.0 g/dl RDW Standard Deviation 48.1 fL RDW Coefficient of Variation 15.8 % Platelet Count 235 K/uL Mean Platelet Volume 9.8 fL Sodium Level 142 mmol/L Potassium Level 3.6 mmol/L Chloride Level 107 mmol/L Carbon Dioxide Level 27 mmol/L Anion Gap 8.0 mmol/L Blood Urea Nitrogen 30 mg/dl Creatinine 1.90 mg/dl Est Creatinine Clear Calc Drug Dose 74.2 ml/min Estimated GFR () 44.4 Estimated GFR (Non- 38.3 BUN/Creatinine Ratio 15.6 Random Glucose 168 mg/dl Calcium Level 8.7 mg/dl Magnesium Level 1.7 mg/dl Test 12/09/16 11:17 Bedside Glucose 201 mg/dl Impression Patient is a 56 year old male with persistent nausea, vomiting in the setting of multiple comorbidities: CHF, DVT, hx of CVA, hx of neuro shunt. He has also been on doxycycline as an OP which certainly can cause abdominal pain and esophagitis. Also considered is diabetic gastroparesis. Less likely are ulcer disease, gastritis, duodenitis. Plan 1. Consider neurologic and metabolic causes of nausea: will check TSH, morning cortisol level, CT of the head w/o contrast. 2. Would defer EGD because normal x 2 in 2016, one just 4 months ago. 3. If Zofran and Phenergan do not improve the nausea then would try Emend or low dose benzodiazepine (placed one time order for Emend). 4. DC doxycycline and avoid antibiotic tx of cellulitis if possible (placed the order). 5. He is on ursodiol w/o specific indication - would also stop that (did not place the order to stop - will defer to primary). I have seen,examined, and agree with the history and plan as outlined above by Ms. Marina Ott, -1 mo of nausea-no obstruction -?metabolic, drug, or systemic causes
[2016-12-09] MEDS ORDERED: FOSAPREPITANT DIMEGLUMINE INJ 150 MG in SODIUM CHLORIDE 0.9% 150ML 145 ML IV ONE (14:30)
[2016-12-09] MEDS: ACETAMINOPHEN/CODEINE 300/30MG TAB PO PRN (15:12)
--- NOTE | 2016-12-09 15:12 | DIAGNOSTIC IMAGING REPORT ---
HEAD CT NONCONTRAST CT DOSE: 823.94 mGycm HISTORY: persistent nausea, hx of hydrocephalous, distant CVA TECHNIQUE: Multiaxial CT images of the head were performed without the use of intravenous contrast. Automated exposure control was utilized for this study. Comparison: None. Findings: Bubbly secretions and a fluid level within the right maxillary sinus consistent with acute sinusitis. The mastoid or cells are clear. The calvarium and skull base are intact. There is no mass, hematoma, midline shift, acute infarct. White matter hypodensity is nonspecific but suggestive of microvascular ischemic change. The ventricles and sulci demonstrate a within normal limits. There are a few old small periventricular and cerebellar hemisphere lacunar infarcts. Impression: 1. No acute intracranial abnormality. 2. A few old small lacunar infarcts as described above. 3. Acute right maxillary sinusitis. Electronically signed by: Kike Shelton M.D. 12/09/2016 3:11 PM Dictated Date/Time: 12/09/2016 3:05 PM
[2016-12-09 15:47] VITALS: BP 190/78; PULSE 62; TEMP 36.5; O2SAT 96
[2016-12-09 16:00] VITALS: O2SAT 96
[2016-12-09 17:48] VITALS: BP 167/81; PULSE 61
[2016-12-09] MEDS ORDERED: HydrALAZINE HCL 20 MG/ML VIAL IV. PRN (18:00)
--- NOTE | 2016-12-09 18:14 | Progress Note ---
Medicine Progress Note Date & Time of Visit: Dec 09, 2016 at 18:03. Subjective Pt was seen and examined Sitting in bed with discomfort and malaise Pt said that he continues to have abdominal pain and nausea He was able to eat his food denies any chest pain, palpitation and sob Objective Last 8 Hrs Date Time Temp Pulse Resp B/P Pulse Ox O2 Delivery O2 Flow Rate FiO2 12/09/16 17:48 61 167/81 12/09/16 16:00 96 Room Air 12/09/16 15:47 36.5 62 18 190/78 96 Room Air Physical Exam: General- No acute respiratory distress Head- atraumatic Eyes- PERRL, EOMI ENT- oropharynx clear Neck- supple, no JVD Lungs- No wheezing, No crackles Heart- regular rhythm; no murmur Abdomen- normal bowel sounds, + diffuse tender Extremities- + edema, no calf tenderness Neuro- alert, oriented x 3; PERRL, EOMI; no facial palsy Skin- warm & dry Laboratory Results: Last 24 Hours Test 12/08/16 20:12 12/09/16 05:36 12/09/16 07:42 12/09/16 11:17 Bedside Glucose 159 mg/dl 171 mg/dl 201 mg/dl White Blood Count 11.01 K/uL Red Blood Count 4.17 M/uL Hemoglobin 11.2 g/dL Hematocrit 35.0 % Mean Corpuscular Volume 83.9 fL Mean Corpuscular Hemoglobin 26.9 pg Mean Corpuscular Hemoglobin Concent 32.0 g/dl RDW Standard Deviation 48.1 fL RDW Coefficient of Variation 15.8 % Platelet Count 235 K/uL Mean Platelet Volume 9.8 fL Sodium Level 142 mmol/L Potassium Level 3.6 mmol/L Chloride Level 107 mmol/L Carbon Dioxide Level 27 mmol/L Anion Gap 8.0 mmol/L Blood Urea Nitrogen 30 mg/dl Creatinine 1.90 mg/dl Est Creatinine Clear Calc Drug Dose 74.2 ml/min Estimated GFR () 44.4 Estimated GFR (Non- 38.3 BUN/Creatinine Ratio 15.6 Random Glucose 168 mg/dl Calcium Level 8.7 mg/dl Magnesium Level 1.7 mg/dl Test 12/09/16 16:33 Bedside Glucose 143 mg/dl Assessment & Plan INTRACTABLE NAUSEA/VOMITING Possible related to GI side effects from doxycycline vs viral etiology afebrile with leukocytosis mildly elevated CT abd/pelvis negative for acute process. No obstruction Continue supportive management cont IVF, anti-emetics and pain mgmt blood and urine cx- no growth Will try to change abx to IV vanco since culture was sensitive to vanco and he was taking it and transition to doxy Pt has so many allergic in his list Abx changed to IV vanco GI consulted appreciated input DIARRHEA had multiple episodes of watery diarrhea has not had any episode since yesterday HYPERTENSIVE URGENCY BP 204/115-->160s/100s start hydralazine PRN SBP>170 Amlodipine 5mg added will consider to increase to amlodipine to 10mg cont carvedilol monitor LOW MAGNESIUM Mg replaced continue monitor electrolytes RLE CELLULITIS mild leukocytosis on admission wound cx 12/03 + Staph aureus On Doxy course (to be completed 12/13/16) Will change abx to IV vanco due to GI 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 CKD STAGE III creatinine around baseline at 2.2 creatine today 1.9 monitor with daily prp avoid nephrotoxic agents when able 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 hold NovoLog start ISS monitor BSG AC HS ISCHEMIC CARDIOMYOPATHY echo 2014 EF 45-50% AICD in place cont Lasix CHRONIC AFIB EKG: paced rhythm cont Eliquis DVT PROPHYLAXIS cont Eliquis CODE STATUS FULL CODE Consultants: gastro Current Inpatient Medications: Current Inpatient Medications Medications (Trade) Dose Ordered Sig/Miguel Route Start Time Stop Time Status Last Admin Dose Admin Acetaminophen (Tylenol Tab) 650 mg Q4H PRN PO 12/07/16 08:45 01/06/17 08:44 Ondansetron HCl (Zofran Inj) 4 mg Q6H PRN IV 12/07/16 08:45 01/06/17 08:44 12/09/16 00:02 4 MG Acetaminophen/ Codeine Phosphate (Tylenol w/ Codeine #3 Tab) 1 tab Q6 PRN PO 12/07/16 09:00 01/06/17 08:59 12/09/16 15:12 1 TAB Albuterol (Ventolin Hfa Inhaler) 2 puffs Q6H PRN INH 12/07/16 09:00 01/06/17 08:59 Apixaban (Eliquis Tab) 5 mg Q12 PO 12/07/16 09:00 01/06/17 08:59 12/09/16 07:46 5 MG Aspirin (Aspirin Chew) 81 mg QAM PO 12/07/16 09:00 01/06/17 08:59 12/09/16 07:46 81 MG Atorvastatin Calcium (Lipitor Tab) 40 mg QPM PO 12/07/16 21:00 01/06/17 20:59 12/08/16 20:43 40 MG Bisacodyl (Dulcolax Supp) 10 mg Q24H PRN [place] 12/07/16 09:00 01/06/17 08:59 Carvedilol (Coreg Tab) 25 mg Q12 PO 12/07/16 09:00 01/06/17 08:59 12/09/16 07:46 25 MG Docusate Sodium (coLACE CAP) 100 mg BID PRN PO 12/07/16 09:00 01/06/17 08:59 Doxycycline Hyclate (Vibramycin Cap) 100 mg BID PO 12/07/16 09:00 12/13/16 23:59 12/09/16 07:46 100 MG Furosemide (Lasix Tab) 80 mg BID PO 12/07/16 09:00 01/06/17 08:59 12/09/16 07:46 80 MG Multivitamins/ Minerals (Multivitamin W/ Minerals Tab) 1 tab QAM PO 12/07/16 09:00 01/06/17 08:59 12/09/16 07:46 1 TAB Nitroglycerin (Nitrostat Tab) 0.4 mg UD PRN UT 12/07/16 09:00 01/06/17 08:59 Pantoprazole Sodium (Protonix Tab) 40 mg QPM PO 12/07/16 21:00 01/06/17 20:59 12/08/16 20:46 40 MG Senna/Docusate Sodium (Senokot S Tab) 2 tab HS PO 12/07/16 21:00 01/06/17 20:59 12/08/16 20:44 2 TAB Trazodone HCl (Desyrel Tab) 50 mg HS PO 12/07/16 21:00 01/06/17 20:59 12/08/16 20:46 50 MG Ursodiol (Actigall Cap) 300 mg Q12 PO 12/07/16 09:00 5/26/17 08:59 12/09/16 07:46 300 MG Venlafaxine HCl (effeXOR EXTENDED REL CAP) 75 mg HS PO 12/07/16 21:00 01/06/17 20:59 12/08/16 20:43 75 MG Bacitracin (Bacitracin Oint) 1 appln HS EXT 12/07/16 21:00 01/06/17 20:59 12/08/16 20:47 1 APPLN Polyethylene (Miralax Powder Packet) 17 gm QAM PO 12/07/16 09:00 01/06/17 08:59 12/08/16 08:12 17 GM Insulin Aspart (novoLOG ASPART) SLIDING SCALE If C... ACHS SC 12/07/16 11:00 01/06/17 10:59 12/09/16 12:39 7 UNITS Glucose (Glucose 40% Gel) 15-30 GRAMS 15 GRAMS... UD PRN PO 12/07/16 09:00 01/06/17 08:59 Glucose (Glucose Chew Tab) 4-8 Tablets 4 Tabl... UD PRN PO 12/07/16 09:00 01/06/17 08:59 Dextrose (Dextrose 50% 50ML Syringe) 25-50ML OF 50% DW IV FOR... UD PRN IV 12/07/16 09:00 01/06/17 08:59 Glucagon (Glucagon Inj) 1 mg UD PRN SQ 12/07/16 09:00 01/06/17 08:59 Tramadol HCl (Ultram Tab) 50 mg Q4H PRN PO 12/07/16 09:00 01/06/17 08:59 12/09/16 05:15 50 MG Miscellaneous (Iv Fluids Completed) 1 ea PRN PRN N/A 12/07/16 09:15 12/07/17 09:14 Ondansetron HCl (Zofran Tab) 4 mg Q12H PO 12/07/16 20:30 12/13/16 23:59 12/09/16 07:46 4 MG Amlodipine Besylate (Norvasc Tab) 5 mg QAM PO 12/08/16 09:30 01/07/17 09:29 12/09/16 07:47 5 MG Promethazine HCl (Phenergan Tab) 25 mg Q8H PRN PO 12/08/16 10:30 01/07/17 10:29 12/09/16 14:33 25 MG Hydralazine HCl (HydrALAZINE INJ) 10 mg Q4H PRN IV. 12/08/16 22:00 01/07/17 21:59 12/09/16 00:02 10 MG
[2016-12-09] MEDS: TRAZODONE HCL 50 MG TAB PO SCH (21:27)
[2016-12-09] MEDS: VENLAFAXINE HCL XR 75 MG CAPXR PO SCH (21:28)
[2016-12-09] MEDS: ATORVASTATIN 40 MG TAB PO SCH (21:28)
[2016-12-09] MEDS: BACITRACIN OINT 15 GM TUBE EXT SCH (21:31)
[2016-12-09] MEDS: DOCUSATE SODIUM/SENNA 50/8.6MG TAB PO SCH (21:31)
[2016-12-09] MEDS: PANTOprazole SOD 40 MG TAB PO SCH (21:32)
[2016-12-09] MEDS ORDERED: VANCOMYCIN CONSULT ACTIVE PRN (22:45)
[2016-12-09 23:00] VITALS: BP 165/80; PULSE 60; TEMP 36.6; O2SAT 97
[2016-12-09] MEDS ORDERED: VANCOMYCIN INJ 2,800 MG in SODIUM CHLORIDE 0.9% 500ML 500 ML IV ONE (23:00)
--- NOTE | 2016-12-09 23:14 | Pharmacy Progress Note ---
Pharmacy Antibiotic Consult Date of Service: Dec 09, 2016. Pharmacy Dosing Scope Pharmacy is consulted to initiate VANCOMYCIN IV dosing therapy, order appropriate labs and adjust drug dose/frequency. Subjective The patient is a 56 year old male admitted on Dec 08, 2016 at 12:02. Objective Height (Feet): 6 Height (Inches): 8.00 Weight (Kilograms): 161.800 Lab Results (24hrs): Laboratory Tests Test 12/09/16 05:36 BUN/Creatinine Ratio 15.6 Blood Urea Nitrogen 30 mg/dl Creatinine 1.90 mg/dl White Blood Count 11.01 K/uL Assessment & Plan 56yo male changing from DOXYCYCLINE to VANCOMYCIN for cellulitis due to adverse GI effects from DOXY. SCr 1.9 (baseline ~2.2). VANCOMYCIN: * Loading dose: VANCOMYCIN 2800mg IV X 1 dose. * Goal trough level estimate: between 15 - 20 mcg/mL. * Due to poor/fluctuating renal function, will check a random tomorrow ~1000 and dose accordingly. Pharmacy will continue to follow and will adjust dose/frequency as necessary. Thank you
[2016-12-10] MEDS: ACETAMINOPHEN/CODEINE 300/30MG TAB PO PRN ×4 (00:01→23:32)
[2016-12-10] MEDS: PROMETHAZINE HCL 25 MG TAB PO PRN ×2 (01:53→23:32)
[2016-12-10] MEDS: TRAMADOL HCL 50 MG TAB PO PRN ×3 (01:55→20:11)
[2016-12-10] MEDS: ONDANSETRON INJ 2 MG/ML 2 ML VIAL IV PRN ×3 (06:28→20:07)
[2016-12-10 06:31] LABS: HEMATOCRIT 35.2 % (42-52); MEAN CELL VOLUME 83.2 fL (80-100); MEAN CORPUSCULAR HEMOGLOBIN 26.7 pg (25-34); MEAN CORPUSCULAR HGB CONC 32.1 g/dl (32-36); MEAN PLATELET VOLUME 9.9 fL (7.4-10.4); PLATELET COUNT 213 K/uL (130-400); RED BLOOD COUNT 4.23 M/uL (4.7-6.1); WHITE BLOOD COUNT 12.63 K/uL (4.8-10.8)
[2016-12-10 07:14] LABS: BUN/CREATININE RATIO 14.8 (10-20); CREATININE 1.8 mg/dl (0.60-1.40); MAGNESIUM 1.9 mg/dl (1.8-2.4); POTASSIUM 3.3 mmol/L (3.5-5.1)
[2016-12-10 07:16] VITALS: BP 185/93; PULSE 60; TEMP 36.4; O2SAT 96
[2016-12-10 07:21] LABS: THYROID STIMULATING HORMONE 2.28 uIu/ml (0.300-4.500)
[2016-12-10] MEDS: ONDANSETRON 4 MG TAB PO SCH ×2 (09:34→20:13)
[2016-12-10] MEDS: ASPIRIN 81 MG CHEW PO SCH (09:34)
[2016-12-10] MEDS: CEROVITE ADV FORMULA TAB PO SCH (09:34)
[2016-12-10] MEDS: AMLODIPINE BESYLATE 5 MG TAB PO SCH (09:35)
[2016-12-10] MEDS: FUROSEMIDE 80 MG TAB PO SCH ×2 (09:35→20:14)
[2016-12-10] MEDS: CARVEDILOL 25 MG TAB PO SCH ×2 (09:35→20:13)
[2016-12-10] MEDS: URSODIOL 300 MG CAP PO SCH (09:35)
[2016-12-10] MEDS: APIXABAN 2.5 MG TAB PO SCH ×2 (09:36→20:13)
[2016-12-10] MEDS: HydrALAZINE HCL 20 MG/ML VIAL IV. PRN ×3 (09:38→23:39)
[2016-12-10] MEDS: POLYETHYLENE (MIRALAX) 17 GM PACK PO SCH (09:38)
[2016-12-10] MEDS: INSULIN ASPART 100 UNITS/ML 3 ML PEN SC SCH ×4 (09:39→20:58)
[2016-12-10] MEDS ORDERED: POTASSIUM CHLORIDE 20 MEQ TABCR PO ONE (10:30)
[2016-12-10 11:38] VITALS: BP 184/90
--- NOTE | 2016-12-10 11:52 | Progress Note ---
Medicine Progress Note Date & Time of Visit: Dec 10, 2016 at 11:39. Subjective Pt was seen and examined Lying in bed with no distress Pt said that he continue to have abdominal tenderness He said that he feels like his nausea started since after her gallbladder surgery in Sep he said that the medication that he was given yesterday for the nausea seems to help denies any chest pain, palpitation, dizziness and sob Objective Last 8 Hrs Date Time Temp Pulse Resp B/P Pulse Ox O2 Delivery O2 Flow Rate FiO2 12/10/16 07:16 36.4 60 20 185/93 96 Physical Exam: General- No acute respiratory distress Head- atraumatic Eyes- PERRL, EOMI ENT- oropharynx clear Neck- supple, no JVD Lungs- No wheezing, No crackles Heart- regular rhythm; no murmur Abdomen- normal bowel sounds, + diffuse tender Extremities- + edema, no calf tenderness Neuro- alert, oriented x 3; PERRL, EOMI; no facial palsy Skin- warm & dry Laboratory Results: Last 24 Hours Test 12/09/16 16:33 12/09/16 20:16 12/10/16 05:34 12/10/16 07:27 Bedside Glucose 143 mg/dl 166 mg/dl 151 mg/dl White Blood Count 12.63 K/uL Red Blood Count 4.23 M/uL Hemoglobin 11.3 g/dL Hematocrit 35.2 % Mean Corpuscular Volume 83.2 fL Mean Corpuscular Hemoglobin 26.7 pg Mean Corpuscular Hemoglobin Concent 32.1 g/dl RDW Standard Deviation 47.1 fL RDW Coefficient of Variation 15.7 % Platelet Count 213 K/uL Mean Platelet Volume 9.9 fL Sodium Level 140 mmol/L Potassium Level 3.3 mmol/L Chloride Level 105 mmol/L Carbon Dioxide Level 25 mmol/L Anion Gap 10.0 mmol/L Blood Urea Nitrogen 27 mg/dl Creatinine 1.80 mg/dl Est Creatinine Clear Calc Drug Dose 78.3 ml/min Estimated GFR () 47.4 Estimated GFR (Non- 40.9 BUN/Creatinine Ratio 14.8 Random Glucose 161 mg/dl Calcium Level 8.0 mg/dl Magnesium Level 1.9 mg/dl Thyroid Stimulating Hormone (TSH) 2.280 uIu/ml Cortisol AM Sample 36.61 mcg/dl Test 12/10/16 09:50 12/10/16 11:21 Random Vancomycin Level 23.9 mcg/ml Bedside Glucose 143 mg/dl Date/Time Source Procedure Growth Status 12/10/16 02:00 Stool C.difficile Toxin B Gene (PCR) - Final No C. difficile toxin B gene detected Complete Assessment & Plan INTRACTABLE NAUSEA/VOMITING/ABDOMINAL PAIN Possible related to GI side effects from doxycycline vs viral etiology afebrile with leukocytosis mildly elevated CT abd/pelvis negative for acute process. No obstruction Continue supportive management cont IVF, anti-emetics and pain mgmt blood and urine cx- no growth Doxycycline was discontinue GI consulted appreciated input ursodiol on hold ( pt said that he was started for his gallbladder) He had gallbladder removal surgery back on 09/30 Will get an U/S of the abdomen since he has more pain in the RUQ DIARRHEA had multiple episodes of watery diarrhea resolved HYPERTENSIVE URGENCY BP 204/115-->160s/100s start hydralazine PRN SBP>170 Amlodipine 5mg added will consider to increase to amlodipine to 10mg or add lisinopril 5 mg (or losartan since pt has many allergies to meds) Not sure if they are true allergies cont carvedilol monitor ELECTROLYTES IMBALANCE K replaced continue monitor electrolytes RLE CELLULITIS mild leukocytosis on admission wound cx 12/03 + Staph aureus was on Doxy course (to be completed 12/13/16) Abx changed to IV vanco continue wound care treatment CKD STAGE III creatinine around baseline at 2.2 creatine today 1.8 monitor with daily prp avoid nephrotoxic agents when able 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 hold NovoLog start ISS monitor BSG AC HS ISCHEMIC CARDIOMYOPATHY echo 2014 EF 45-50% AICD in place cont Lasix CHRONIC AFIB EKG: paced rhythm cont Eliquis DVT PROPHYLAXIS cont Eliquis CODE STATUS FULL CODE Consultants: gastro Current Inpatient Medications: Current Inpatient Medications Medications (Trade) Dose Ordered Sig/Miguel Route Start Time Stop Time Status Last Admin Dose Admin Acetaminophen (Tylenol Tab) 650 mg Q4H PRN PO 12/07/16 08:45 01/06/17 08:44 Ondansetron HCl (Zofran Inj) 4 mg Q6H PRN IV 12/07/16 08:45 01/06/17 08:44 12/10/16 06:28 4 MG Acetaminophen/ Codeine Phosphate (Tylenol w/ Codeine #3 Tab) 1 tab Q6 PRN PO 12/07/16 09:00 01/06/17 08:59 12/10/16 06:32 1 TAB Albuterol (Ventolin Hfa Inhaler) 2 puffs Q6H PRN INH 12/07/16 09:00 01/06/17 08:59 Apixaban (Eliquis Tab) 5 mg Q12 PO 12/07/16 09:00 01/06/17 08:59 12/10/16 09:36 5 MG Aspirin (Aspirin Chew) 81 mg QAM PO 12/07/16 09:00 01/06/17 08:59 12/10/16 09:34 81 MG Atorvastatin Calcium (Lipitor Tab) 40 mg QPM PO 12/07/16 21:00 01/06/17 20:59 12/09/16 21:28 40 MG Bisacodyl (Dulcolax Supp) 10 mg Q24H PRN [place] 12/07/16 09:00 01/06/17 08:59 Carvedilol (Coreg Tab) 25 mg Q12 PO 12/07/16 09:00 01/06/17 08:59 12/10/16 09:35 25 MG Docusate Sodium (coLACE CAP) 100 mg BID PRN PO 12/07/16 09:00 01/06/17 08:59 Furosemide (Lasix Tab) 80 mg BID PO 12/07/16 09:00 01/06/17 08:59 12/10/16 09:35 80 MG Multivitamins/ Minerals (Multivitamin W/ Minerals Tab) 1 tab QAM PO 12/07/16 09:00 01/06/17 08:59 12/10/16 09:34 1 TAB Nitroglycerin (Nitrostat Tab) 0.4 mg UD PRN UT 12/07/16 09:00 01/06/17 08:59 Pantoprazole Sodium (Protonix Tab) 40 mg QPM PO 12/07/16 21:00 01/06/17 20:59 12/09/16 21:32 40 MG Senna/Docusate Sodium (Senokot S Tab) 2 tab HS PO 12/07/16 21:00 01/06/17 20:59 12/09/16 21:31 2 TAB Trazodone HCl (Desyrel Tab) 50 mg HS PO 12/07/16 21:00 01/06/17 20:59 12/09/16 21:27 50 MG Ursodiol (Actigall Cap) 300 mg Q12 PO 12/07/16 09:00 01/06/17 08:59 Future Hold 12/10/16 09:35 300 MG Venlafaxine HCl (effeXOR EXTENDED REL CAP) 75 mg HS PO 12/07/16 21:00 01/06/17 20:59 12/09/16 21:28 75 MG Bacitracin (Bacitracin Oint) 1 appln HS EXT 12/07/16 21:00 01/06/17 20:59 12/09/16 21:31 1 APPLN Polyethylene (Miralax Powder Packet) 17 gm QAM PO 12/07/16 09:00 01/06/17 08:59 12/08/16 08:12 17 GM Insulin Aspart (novoLOG ASPART) SLIDING SCALE If C... ACHS SC 12/07/16 11:00 01/06/17 10:59 12/09/16 21:39 1 UNITS Glucose (Glucose 40% Gel) 15-30 GRAMS 15 GRAMS... UD PRN PO 12/07/16 09:00 01/06/17 08:59 Glucose (Glucose Chew Tab) 4-8 Tablets 4 Tabl... UD PRN PO 12/07/16 09:00 01/06/17 08:59 Dextrose (Dextrose 50% 50ML Syringe) 25-50ML OF 50% DW IV FOR... UD PRN IV 12/07/16 09:00 01/06/17 08:59 Glucagon (Glucagon Inj) 1 mg UD PRN SQ 12/07/16 09:00 01/06/17 08:59 Tramadol HCl (Ultram Tab) 50 mg Q4H PRN PO 12/07/16 09:00 01/06/17 08:59 12/10/16 09:34 50 MG Miscellaneous (Iv Fluids Completed) 1 ea PRN PRN N/A 12/07/16 09:15 12/07/17 09:14 Ondansetron HCl (Zofran Tab) 4 mg Q12H PO 12/07/16 20:30 12/13/16 23:59 12/10/16 09:34 4 MG Amlodipine Besylate (Norvasc Tab) 5 mg QAM PO 12/08/16 09:30 01/07/17 09:29 12/10/16 09:35 5 MG Promethazine HCl (Phenergan Tab) 25 mg Q8H PRN PO 12/08/16 10:30 01/07/17 10:29 12/10/16 01:53 25 MG Hydralazine HCl (HydrALAZINE INJ) 10 mg Q4H PRN IV. 12/08/16 22:00 01/07/17 21:59 12/10/16 09:38 10 MG Hydralazine HCl (HydrALAZINE INJ) 10 mg Q4 PRN IV. 12/09/16 18:00 01/08/17 17:59 Vancomycin HCl (Consult) 1 ea UD PRN N/A 12/09/16 22:45 01/08/17 22:44
--- NOTE | 2016-12-10 12:29 | Pharmacy Progress Note ---
Pharmacy Antibiotic Prog Note Date of Service Dec 10, 2016. Subjective The patient is currently receiving vancomycin for cellulitis infection The patient is currently on day # 2 of IV therapy Objective Height (Feet): 6 Height (Inches): 8.00 Weight (Kilograms): 161.800 Levels: Item Value Date Time Random Vancomycin Level 23.9 mcg/ml 12/10/16 0950 Lab Results (24hrs): Laboratory Tests Test 12/10/16 05:34 BUN/Creatinine Ratio 14.8 Blood Urea Nitrogen 27 mg/dl Creatinine 1.80 mg/dl White Blood Count 12.63 K/uL Assessment & Plan Patient started on vancomycin for cellulitis infection. Previously on doxycycline for wound cultures positive for staph aureus, tx to be completed 12/13. However, patient not tolerating doxycycline due to GI effects, therefore switched to vancomycin. Vancomycin: * Random vancomycin level this am was ~23 mcg/ml (goal ~15 mcg/ml for cellulitis ) * Scr remains stable today at 1.8 mg/dL (CrCl ~78 ml/min) will start MD of vancomycin 1500 mg (~9 mg/kg) iv q 14 hrs to achieve an estimated trough ~15 mcg /ml; less aggressive with MD due to elevated BMI>35 kg/m2 and risk for drug accumulation * Estimated kinetics: t1/2~10 hrs, ke~0.06 hr-1 ; will start MD when estimated level closer to ~15 mcg/ml * Will plan to collect trough prior to 1200 dose on 12/12 to ensure therapeutic Pharmacy will continue to follow and will adjust dose/frequency as necessary. Thank you
--- NOTE | 2016-12-10 13:06 | Gastroenterology Progress Note ---
Progress Note Date of Service: Dec 10, 2016 Subjective Pt evaluation today including: conversation w/ patient, physical exam, chart review, lab review, review of studies, review of inpatient medication list Nauseated this AM. He feels like the dizziness is partially the cause. Some mild generalized abd pain. Starting to feel constipated. Did have a BM yesterday. Initially had some loose stool. Dry heaves this AM. Going for an US this afternoon. Review of Systems 12 systems reviewed and negative except as noted Medications Current Inpatient Medications Medications (Trade) Dose Ordered Sig/Miguel Route Start Time Stop Time Status Last Admin Dose Admin Acetaminophen (Tylenol Tab) 650 mg Q4H PRN PO 12/07/16 08:45 01/06/17 08:44 Ondansetron HCl (Zofran Inj) 4 mg Q6H PRN IV 12/07/16 08:45 01/06/17 08:44 12/10/16 12:31 4 MG Acetaminophen/ Codeine Phosphate (Tylenol w/ Codeine #3 Tab) 1 tab Q6 PRN PO 12/07/16 09:00 01/06/17 08:59 12/10/16 12:33 1 TAB Albuterol (Ventolin Hfa Inhaler) 2 puffs Q6H PRN INH 12/07/16 09:00 01/06/17 08:59 Apixaban (Eliquis Tab) 5 mg Q12 PO 12/07/16 09:00 01/06/17 08:59 12/10/16 09:36 5 MG Aspirin (Aspirin Chew) 81 mg QAM PO 12/07/16 09:00 01/06/17 08:59 12/10/16 09:34 81 MG Atorvastatin Calcium (Lipitor Tab) 40 mg QPM PO 12/07/16 21:00 01/06/17 20:59 12/09/16 21:28 40 MG Bisacodyl (Dulcolax Supp) 10 mg Q24H PRN [place] 12/07/16 09:00 01/06/17 08:59 Carvedilol (Coreg Tab) 25 mg Q12 PO 12/07/16 09:00 01/06/17 08:59 12/10/16 09:35 25 MG Docusate Sodium (coLACE CAP) 100 mg BID PRN PO 12/07/16 09:00 01/06/17 08:59 Furosemide (Lasix Tab) 80 mg BID PO 12/07/16 09:00 01/06/17 08:59 12/10/16 09:35 80 MG Multivitamins/ Minerals (Multivitamin W/ Minerals Tab) 1 tab QAM PO 12/07/16 09:00 01/06/17 08:59 12/10/16 09:34 1 TAB Nitroglycerin (Nitrostat Tab) 0.4 mg UD PRN [place] 12/07/16 09:00 01/06/17 08:59 Pantoprazole Sodium (Protonix Tab) 40 mg QPM PO 12/07/16 21:00 01/06/17 20:59 12/09/16 21:32 40 MG Senna/Docusate Sodium (Senokot S Tab) 2 tab HS PO 12/07/16 21:00 01/06/17 20:59 12/09/16 21:31 2 TAB Trazodone HCl (Desyrel Tab) 50 mg HS PO 12/07/16 21:00 01/06/17 20:59 12/09/16 21:27 50 MG Ursodiol (Actigall Cap) 300 mg Q12 PO 12/07/16 09:00 01/06/17 08:59 Future Hold 12/10/16 09:35 300 MG Venlafaxine HCl (effeXOR EXTENDED REL CAP) 75 mg HS PO 12/07/16 21:00 01/06/17 20:59 12/09/16 21:28 75 MG Bacitracin (Bacitracin Oint) 1 appln HS EXT 12/07/16 21:00 01/06/17 20:59 12/09/16 21:31 1 APPLN Polyethylene (Miralax Powder Packet) 17 gm QAM PO 12/07/16 09:00 01/06/17 08:59 12/08/16 08:12 17 GM Insulin Aspart (novoLOG ASPART) SLIDING SCALE If C... ACHS SC 12/07/16 11:00 01/06/17 10:59 12/09/16 21:39 1 UNITS Glucose (Glucose 40% Gel) 15-30 GRAMS 15 GRAMS... UD PRN PO 12/07/16 09:00 01/06/17 08:59 Glucose (Glucose Chew Tab) 4-8 Tablets 4 Tabl... UD PRN PO 12/07/16 09:00 01/06/17 08:59 Dextrose (Dextrose 50% 50ML Syringe) 25-50ML OF 50% DW IV FOR... UD PRN IV 12/07/16 09:00 01/06/17 08:59 Glucagon (Glucagon Inj) 1 mg UD PRN SQ 12/07/16 09:00 01/06/17 08:59 Tramadol HCl (Ultram Tab) 50 mg Q4H PRN PO 12/07/16 09:00 01/06/17 08:59 12/10/16 09:34 50 MG Miscellaneous (Iv Fluids Completed) 1 ea PRN PRN N/A 12/07/16 09:15 12/07/17 09:14 Ondansetron HCl (Zofran Tab) 4 mg Q12H PO 12/07/16 20:30 12/13/16 23:59 12/10/16 09:34 4 MG Amlodipine Besylate (Norvasc Tab) 5 mg QAM PO 12/08/16 09:30 01/07/17 09:29 12/10/16 09:35 5 MG Promethazine HCl (Phenergan Tab) 25 mg Q8H PRN PO 12/08/16 10:30 01/07/17 10:29 12/10/16 01:53 25 MG Hydralazine HCl (HydrALAZINE INJ) 10 mg Q4H PRN IV. 12/08/16 22:00 01/07/17 21:59 12/10/16 09:38 10 MG Hydralazine HCl (HydrALAZINE INJ) 10 mg Q4 PRN IV. 12/09/16 18:00 01/08/17 17:59 Vancomycin HCl 1 ea 1 ea UD PRN N/A 12/09/16 22:45 01/08/17 22:44 Vancomycin HCl/ Sodium Chloride (Vancomycin Inj/ Nss 500ml) 530 ml @ 200 mls/hr Q14H IV 12/10/16 18:00 12/19/16 17:59 Objective Vital Signs Date Time Temp Pulse Resp B/P Pulse Ox O2 Delivery O2 Flow Rate FiO2 12/10/16 11:38 184/90 12/10/16 09:30 Room Air 12/10/16 07:16 36.4 60 20 185/93 96 12/10/16 01:00 Room Air 12/09/16 23:00 36.6 60 18 165/80 97 Room Air 12/09/16 17:48 61 167/81 12/09/16 16:00 96 Room Air 12/09/16 15:47 36.5 62 18 190/78 96 Room Air Physical Exam General Appearance: WD/WN, + mild distress Eyes: normal inspection, PERRL ENT: normal ENT inspection, hearing grossly normal, pharynx normal Neck: supple Respiratory/Chest: chest non-tender, lungs clear, normal breath sounds, no accessory muscle use Cardiovascular: regular rate, rhythm Abdomen: normal bowel sounds, soft, + tenderness (mild) Extremities: normal range of motion, + pedal edema, + pertinent finding ( venous stasis changes of bilateral LE, some erythema) Neurologic/Psych: home health specialist II-XII nml as tested, alert, normal mood/affect, oriented x 3 Skin: normal color, no jaundice Laboratory Results Last 24 Hours Test 12/09/16 16:33 12/09/16 20:16 12/10/16 05:34 12/10/16 07:27 Bedside Glucose 143 mg/dl 166 mg/dl 151 mg/dl White Blood Count 12.63 K/uL Red Blood Count 4.23 M/uL Hemoglobin 11.3 g/dL Hematocrit 35.2 % Mean Corpuscular Volume 83.2 fL Mean Corpuscular Hemoglobin 26.7 pg Mean Corpuscular Hemoglobin Concent 32.1 g/dl RDW Standard Deviation 47.1 fL RDW Coefficient of Variation 15.7 % Platelet Count 213 K/uL Mean Platelet Volume 9.9 fL Sodium Level 140 mmol/L Potassium Level 3.3 mmol/L Chloride Level 105 mmol/L Carbon Dioxide Level 25 mmol/L Anion Gap 10.0 mmol/L Blood Urea Nitrogen 27 mg/dl Creatinine 1.80 mg/dl Est Creatinine Clear Calc Drug Dose 78.3 ml/min Estimated GFR () 47.4 Estimated GFR (Non- 40.9 BUN/Creatinine Ratio 14.8 Random Glucose 161 mg/dl Calcium Level 8.0 mg/dl Magnesium Level 1.9 mg/dl Thyroid Stimulating Hormone (TSH) 2.280 uIu/ml Cortisol AM Sample 36.61 mcg/dl Test 12/10/16 09:50 12/10/16 11:21 Random Vancomycin Level 23.9 mcg/ml Bedside Glucose 143 mg/dl Assessment and Plan 56 yo male with multiple comorbidities including DM, h/o CVA, shunt, and CHF admitted from [facility] where he was for rehab and cellulitis. Admitted with on going nausea and vomiting. Also dizziness. His nausea is likely multifactorial. He is diabetic, has a neurologic history and a shunt and was recently on doxycycline. Doxy was stopped. - Await results of the US ordered by primary team. - Conservative mgt wiht PRN antiemetics. - Continue with PPI. - He has had several endoscopies in the recent past, last being about 4 months ago. No plan for EGD at this point. - Consider gastric emptying scan for gastroparesis once he is over this acute nausea. - Emend if needed.
[2016-12-10] MEDS ORDERED: FOSAPREPITANT DIMEGLUMINE INJ 150 MG in SODIUM CHLORIDE 0.9% 150ML 145 ML IV SCH (14:00)
[2016-12-10 14:49] VITALS: BP 174/103; PULSE 61; TEMP 36.4; O2SAT 97
[2016-12-10] MEDS: VANCOMYCIN INJ 1,500 MG in SODIUM CHLORIDE 0.9% 500ML 500 ML IV SCH (17:30)
[2016-12-10 18:05] VITALS: BP 170/79; PULSE 60
[2016-12-10] MEDS: PANTOprazole SOD 40 MG TAB PO SCH (20:13)
[2016-12-10] MEDS: VENLAFAXINE HCL XR 75 MG CAPXR PO SCH (20:13)
[2016-12-10] MEDS: ATORVASTATIN 40 MG TAB PO SCH (20:14)
[2016-12-10] MEDS: TRAZODONE HCL 50 MG TAB PO SCH (20:15)
[2016-12-10] MEDS: DOCUSATE SODIUM/SENNA 50/8.6MG TAB PO SCH (20:15)
[2016-12-10] MEDS: BACITRACIN OINT 15 GM TUBE EXT SCH (20:15)
[2016-12-10 23:15] VITALS: BP 169/86; PULSE 60; TEMP 36.7; O2SAT 97
[2016-12-11] MEDS: TRAMADOL HCL 50 MG TAB PO PRN ×2 (04:26→09:30)
[2016-12-11] MEDS: ONDANSETRON INJ 2 MG/ML 2 ML VIAL IV PRN ×2 (04:26→12:18)
[2016-12-11 04:35] VITALS: BP 164/88; PULSE 63
[2016-12-11 05:37] VITALS: BP 154/77; PULSE 65
[2016-12-11 05:45] VITALS: BP 170/87; PULSE 63
[2016-12-11] MEDS: HydrALAZINE HCL 20 MG/ML VIAL IV. PRN (05:49)
[2016-12-11] MEDS: ACETAMINOPHEN/CODEINE 300/30MG TAB PO PRN ×2 (05:50→18:43)
[2016-12-11 06:28] VITALS: BP 135/70; PULSE 66; O2SAT 97
[2016-12-11 07:01] LABS: HEMATOCRIT 36.1 % (42-52); MEAN CELL VOLUME 83.4 fL (80-100); MEAN CORPUSCULAR HEMOGLOBIN 27.3 pg (25-34); MEAN CORPUSCULAR HGB CONC 32.7 g/dl (32-36); MEAN PLATELET VOLUME 10.1 fL (7.4-10.4); PLATELET COUNT 227 K/uL (130-400); RED BLOOD COUNT 4.33 M/uL (4.7-6.1); WHITE BLOOD COUNT 11.77 K/uL (4.8-10.8)
[2016-12-11 07:28] VITALS: BP 151/76; PULSE 61; TEMP 36.8; O2SAT 93
[2016-12-11 07:40] LABS: BUN/CREATININE RATIO 13.2 (10-20); CREATININE 1.9 mg/dl (0.60-1.40); MAGNESIUM 1.7 mg/dl (1.8-2.4)
--- NOTE | 2016-12-11 09:16 | DIAGNOSTIC IMAGING REPORT ---
ABDOMEN COMPLETE (US) CLINICAL HISTORY: Abdominal pain, nausea and vomiting. COMPARISON STUDY: CT of the abdomen and pelvis December 07, 2016. FINDINGS: This study is compromised by suboptimal penetration. No hepatic lesions were identified although sensitivity is diminished. The gallbladder is surgically absent. Note is made of mild dilatation of the common bile duct, measuring 8 mm. No common bile duct calculi are identified. Spleen is at the upper limits of normal for size. The pancreatic body is normal. The head and tail are obscured. There is no hydronephrosis. The right kidney measures 13 x 5.9 x 6.2 cm and the left measures 12.5 x 7.1 x 5.9 cm. There is no ascites. The abdominal aorta was partially obscured but visualized portions are normal in caliber. IMPRESSION: 1. Mild dilatation of the common bile duct. This is likely related to prior cholecystectomy but could be correlated with obstructive liver function tests. 2. No hydronephrosis. 3. Study mildly compromised by suboptimal penetration. Electronically signed by: Sean Berrios M.D. 12/11/2016 9:14 AM Dictated Date/Time: 12/11/2016 9:10 AM
[2016-12-11] MEDS: CEROVITE ADV FORMULA TAB PO SCH (09:29)
[2016-12-11] MEDS: FUROSEMIDE 80 MG TAB PO SCH ×2 (09:30→21:29)
[2016-12-11] MEDS: AMLODIPINE BESYLATE 5 MG TAB PO SCH (09:30)
[2016-12-11] MEDS: ONDANSETRON 4 MG TAB PO SCH ×2 (09:30→21:29)
[2016-12-11] MEDS: CARVEDILOL 25 MG TAB PO SCH ×2 (09:31→21:29)
[2016-12-11] MEDS: APIXABAN 2.5 MG TAB PO SCH ×2 (09:31→21:29)
[2016-12-11] MEDS: ASPIRIN 81 MG CHEW PO SCH (09:32)
[2016-12-11] MEDS: VANCOMYCIN INJ 1,500 MG in SODIUM CHLORIDE 0.9% 500ML 500 ML IV SCH ×2 (09:34→21:47)
[2016-12-11] MEDS: INSULIN ASPART 100 UNITS/ML 3 ML PEN SC SCH ×4 (09:34→21:39)
[2016-12-11] MEDS: POLYETHYLENE (MIRALAX) 17 GM PACK PO SCH (09:34)
[2016-12-11] MEDS ORDERED: MAGNESIUM SULFATE 1GM / D5W 1 GM in PREMIXED IN D5W 100 ML IV ONE (11:00)
[2016-12-11] MEDS ORDERED: POTASSIUM CHLR 10 MEQ / WTR 40 MEQ in PREMIXED WATER 100 ML IV SCH (12:00)
[2016-12-11] MEDS: POTASSIUM CHLR 10 MEQ / WTR 10 MEQ in PREMIXED WATER 100 ML IV SCH ×4 (13:31→18:10)
[2016-12-11] MEDS ORDERED: FOSAPREPITANT DIMEGLUMINE INJ 150 MG in SODIUM CHLORIDE 0.9% 150ML 145 ML IV PRN (16:00)
--- NOTE | 2016-12-11 16:06 | Progress Note ---
Medicine Progress Note Date & Time of Visit: Dec 11, 2016 at 15:54. Subjective Pt was seen and examined sitting in bed with no distress Pt said that the nausea and abdominal pain slightly improve he said that he feels a little better today At this time denies any chest pain, palpitation and sob He wants me to call his brother or sister to let them know that he is in the hospital. Called his brother and left voicemail. Objective Last 8 Hrs Date Time Temp Pulse Resp B/P Pulse Ox O2 Delivery O2 Flow Rate FiO2 12/11/16 15:13 Room Air 12/11/16 09:40 Room Air Physical Exam: General- No acute respiratory distress Head- atraumatic Eyes- PERRL, EOMI ENT- oropharynx clear Neck- supple, no JVD Lungs- No wheezing, No crackles Heart- regular rhythm; no murmur Abdomen- normal bowel sounds, + diffuse tender Extremities- + edema, no calf tenderness Neuro- alert, oriented x 3; PERRL, EOMI; no facial palsy Skin- warm & dry Laboratory Results: Last 24 Hours Test 12/10/16 16:08 12/10/16 20:34 12/11/16 06:00 12/11/16 07:59 Bedside Glucose 143 mg/dl 154 mg/dl 153 mg/dl White Blood Count 11.77 K/uL Red Blood Count 4.33 M/uL Hemoglobin 11.8 g/dL Hematocrit 36.1 % Mean Corpuscular Volume 83.4 fL Mean Corpuscular Hemoglobin 27.3 pg Mean Corpuscular Hemoglobin Concent 32.7 g/dl RDW Standard Deviation 47.9 fL RDW Coefficient of Variation 15.8 % Platelet Count 227 K/uL Mean Platelet Volume 10.1 fL Sodium Level 140 mmol/L Potassium Level 3.0 mmol/L Chloride Level 104 mmol/L Carbon Dioxide Level 27 mmol/L Anion Gap 9.0 mmol/L Blood Urea Nitrogen 25 mg/dl Creatinine 1.90 mg/dl Est Creatinine Clear Calc Drug Dose 74.2 ml/min Estimated GFR () 44.4 Estimated GFR (Non- 38.3 BUN/Creatinine Ratio 13.2 Random Glucose 147 mg/dl Calcium Level 8.0 mg/dl Magnesium Level 1.7 mg/dl Troponin I 0.056 ng/ml Test 12/11/16 11:36 12/11/16 12:56 Bedside Glucose 209 mg/dl Troponin I 0.059 ng/ml Assessment & Plan INTRACTABLE NAUSEA/VOMITING/ABDOMINAL PAIN Possible related to GI side effects from doxycycline vs viral etiology afebrile with leukocytosis mildly elevated CT abd/pelvis negative for acute process. No obstruction Continue supportive management cont IVF, anti-emetics and pain mgmt blood and urine cx- no growth Doxycycline was discontinued GI consulted appreciated input ursodiol on hold ( pt said that he was started for his gallbladder) He had gallbladder removal surgery back on 09/30 Emend seems to help with the nausea Abdominal U/S showed mild dilatation of the common bile duct. no acute finding continue monitor possible d/c in am if symptoms improve DIARRHEA had multiple episodes of watery diarrhea resolved ELEVATED TROPONIN Troponin slightly elevated Possible related to CKD Denies any chest pain at this time continue monitor HYPERTENSIVE URGENCY BP 204/115-->160s/100s start hydralazine PRN SBP>170 Amlodipine 5mg added will consider to increase to amlodipine to 10mg or add lisinopril 5 mg (or losartan since pt has many allergies to meds) Not sure if they are true allergies cont carvedilol and amlodipine BP improved Continue monitor BP ELECTROLYTES IMBALANCE K 3.0 today K and Mg replaced continue monitor electrolytes RLE CELLULITIS mild leukocytosis on admission wound cx 12/03 + Staph aureus was on Doxy course (to be completed 12/13/16) Continue IV vanco continue wound care treatment CKD STAGE III creatinine around baseline at 2.2 creatine today 1.9 monitor with daily prp avoid nephrotoxic agents when able 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 hold NovoLog start ISS monitor BSG AC HS ISCHEMIC CARDIOMYOPATHY echo 2015 EF 45-50% AICD in place cont Lasix CHRONIC AFIB EKG: paced rhythm cont Eliquis DVT PROPHYLAXIS cont Eliquis CODE STATUS FULL CODE DISPOSITION Possible discharge tomorrow if symptoms improve I called his brother Bola and left voicemail to let him know his brother in the Hospital Consultants: gastro Current Inpatient Medications: Current Inpatient Medications Medications (Trade) Dose Ordered Sig/Miguel Route Start Time Stop Time Status Last Admin Dose Admin Acetaminophen (Tylenol Tab) 650 mg Q4H PRN PO 12/07/16 08:45 01/06/17 08:44 Ondansetron HCl (Zofran Inj) 4 mg Q6H PRN IV 12/07/16 08:45 01/06/17 08:44 12/11/16 12:18 4 MG Acetaminophen/ Codeine Phosphate (Tylenol w/ Codeine #3 Tab) 1 tab Q6 PRN PO 12/07/16 09:00 01/06/17 08:59 12/11/16 05:50 1 TAB Albuterol (Ventolin Hfa Inhaler) 2 puffs Q6H PRN INH 12/07/16 09:00 01/06/17 08:59 Apixaban (Eliquis Tab) 5 mg Q12 PO 12/07/16 09:00 01/06/17 08:59 12/11/16 09:31 5 MG Aspirin (Aspirin Chew) 81 mg QAM PO 12/07/16 09:00 01/06/17 08:59 12/11/16 09:32 81 MG Atorvastatin Calcium (Lipitor Tab) 40 mg QPM PO 12/07/16 21:00 01/06/17 20:59 12/10/16 20:14 40 MG Bisacodyl (Dulcolax Supp) 10 mg Q24H PRN SC 12/07/16 09:00 01/06/17 08:59 Carvedilol (Coreg Tab) 25 mg Q12 PO 12/07/16 09:00 01/06/17 08:59 12/11/16 09:31 25 MG Docusate Sodium (coLACE CAP) 100 mg BID PRN PO 12/07/16 09:00 01/06/17 08:59 Furosemide (Lasix Tab) 80 mg BID PO 12/07/16 09:00 01/06/17 08:59 12/11/16 09:30 80 MG Multivitamins/ Minerals (Multivitamin W/ Minerals Tab) 1 tab QAM PO 12/07/16 09:00 01/06/17 08:59 12/11/16 09:29 1 TAB Nitroglycerin (Nitrostat Tab) 0.4 mg UD PRN UT 12/07/16 09:00 01/06/17 08:59 12/11/16 05:56 0.4 MG Pantoprazole Sodium (Protonix Tab) 40 mg QPM PO 12/07/16 21:00 01/06/17 20:59 12/10/16 20:13 40 MG Senna/Docusate Sodium (Senokot S Tab) 2 tab HS PO 12/07/16 21:00 01/06/17 20:59 12/10/16 20:15 2 TAB Trazodone HCl (Desyrel Tab) 50 mg HS PO 12/07/16 21:00 01/06/17 20:59 12/10/16 20:15 50 MG Ursodiol (Actigall Cap) 300 mg Q12 PO 12/07/16 09:00 01/06/17 08:59 Future Hold 12/10/16 09:35 300 MG Venlafaxine HCl (effeXOR EXTENDED REL CAP) 75 mg HS PO 12/07/16 21:00 01/06/17 20:59 12/10/16 20:13 75 MG Bacitracin (Bacitracin Oint) 1 appln HS EXT 12/07/16 21:00 01/06/17 20:59 12/10/16 20:15 1 APPLN Polyethylene (Miralax Powder Packet) 17 gm QAM PO 12/07/16 09:00 01/06/17 08:59 12/11/16 09:34 17 GM Insulin Aspart (novoLOG ASPART) SLIDING SCALE If C... ACHS SC 12/07/16 11:00 01/06/17 10:59 12/11/16 12:22 6 UNITS Glucose (Glucose 40% Gel) 15-30 GRAMS 15 GRAMS... UD PRN PO 12/07/16 09:00 01/06/17 08:59 Glucose (Glucose Chew Tab) 4-8 Tablets 4 Tabl... UD PRN PO 12/07/16 09:00 01/06/17 08:59 Dextrose (Dextrose 50% 50ML Syringe) 25-50ML OF 50% DW IV FOR... UD PRN IV 12/07/16 09:00 01/06/17 08:59 Glucagon (Glucagon Inj) 1 mg UD PRN SQ 12/07/16 09:00 01/06/17 08:59 Tramadol HCl (Ultram Tab) 50 mg Q4H PRN PO 12/07/16 09:00 01/06/17 08:59 12/11/16 09:30 50 MG Miscellaneous (Iv Fluids Completed) 1 ea PRN PRN N/A 12/07/16 09:15 4/26/18 09:14 Ondansetron HCl (Zofran Tab) 4 mg Q12H PO 12/07/16 20:30 12/13/16 23:59 12/11/16 09:30 4 MG Amlodipine Besylate (Norvasc Tab) 5 mg QAM PO 12/08/16 09:30 01/07/17 09:29 12/11/16 09:30 5 MG Promethazine HCl (Phenergan Tab) 25 mg Q8H PRN PO 12/08/16 10:30 01/07/17 10:29 12/10/16 23:32 25 MG Hydralazine HCl (HydrALAZINE INJ) 10 mg Q4H PRN IV. 12/08/16 22:00 01/07/17 21:59 12/11/16 05:49 10 MG Hydralazine HCl (HydrALAZINE INJ) 10 mg Q4 PRN IV. 12/09/16 18:00 01/08/17 17:59 Vancomycin HCl 1 ea 1 ea UD PRN N/A 12/09/16 22:45 01/08/17 22:44 Vancomycin HCl 1500 mg/Sodium Chloride 530 ml @ 200 mls/hr Q14H IV 12/10/16 18:00 12/19/16 17:59 12/11/16 09:34 200 MLS/HR Potassium Chloride/Prmx (Kcl 10 Meq / Wtr/Premixed Water) 100 ml @ 100 mls/hr Q1H IV 12/11/16 12:00 12/11/16 15:59 12/11/16 15:03 100 MLS/HR
[2016-12-11] MEDS: OXYCODONE HCL IR 5 MG TAB (IMMEDIATE RELEASE) PO PRN ×2 (16:08→21:46)
[2016-12-11 16:12] VITALS: BP 155/84; PULSE 73; TEMP 36.6; O2SAT 95
[2016-12-11] MEDS: PROMETHAZINE HCL 25 MG TAB PO PRN (17:12)
[2016-12-11] MEDS: ATORVASTATIN 40 MG TAB PO SCH (21:29)
[2016-12-11] MEDS: BACITRACIN OINT 15 GM TUBE EXT SCH (21:29)
[2016-12-11] MEDS: TRAZODONE HCL 50 MG TAB PO SCH (21:29)
[2016-12-11] MEDS: VENLAFAXINE HCL XR 75 MG CAPXR PO SCH (21:29)
[2016-12-11] MEDS: DOCUSATE SODIUM/SENNA 50/8.6MG TAB PO SCH (21:29)
[2016-12-11] MEDS: PANTOprazole SOD 40 MG TAB PO SCH (21:29)
[2016-12-12 00:01] VITALS: BP 151/82; PULSE 63; TEMP 36.9; O2SAT 96
[2016-12-12] MEDS: ONDANSETRON INJ 2 MG/ML 2 ML VIAL IV PRN ×2 (00:12→06:43)
[2016-12-12] MEDS: ACETAMINOPHEN/CODEINE 300/30MG TAB PO PRN ×2 (00:16→06:45)
[2016-12-12] MEDS: PROMETHAZINE HCL 25 MG TAB PO PRN (04:24)
[2016-12-12] MEDS: OXYCODONE HCL IR 5 MG TAB (IMMEDIATE RELEASE) PO PRN ×3 (04:24→21:18)
[2016-12-12 05:47] LABS: HEMATOCRIT 37.8 % (42-52); MEAN CELL VOLUME 83.3 fL (80-100); MEAN CORPUSCULAR HEMOGLOBIN 27.5 pg (25-34); MEAN CORPUSCULAR HGB CONC 33.1 g/dl (32-36); MEAN PLATELET VOLUME 10.4 fL (7.4-10.4); PLATELET COUNT 203 K/uL (130-400); RED BLOOD COUNT 4.54 M/uL (4.7-6.1); WHITE BLOOD COUNT 11.81 K/uL (4.8-10.8)
[2016-12-12 06:15] LABS: BUN/CREATININE RATIO 12.8 (10-20); MAGNESIUM 1.7 mg/dl (1.8-2.4); POTASSIUM 3.2 mmol/L (3.5-5.1)
[2016-12-12 06:18] LABS: ALB/GLOB RATIO 0.6 (0.9-2)
[2016-12-12 07:32] VITALS: BP 175/95; PULSE 63; TEMP 37; O2SAT 96
[2016-12-12] MEDS ORDERED: POTASSIUM CHLORIDE 20 MEQ TABCR PO ONE (09:15)
[2016-12-12] MEDS: CARVEDILOL 25 MG TAB PO SCH ×2 (09:22→21:11)
[2016-12-12] MEDS: CEROVITE ADV FORMULA TAB PO SCH (09:22)
[2016-12-12] MEDS: APIXABAN 2.5 MG TAB PO SCH ×2 (09:22→21:08)
[2016-12-12] MEDS: FUROSEMIDE 80 MG TAB PO SCH ×2 (09:22→21:06)
[2016-12-12] MEDS: ASPIRIN 81 MG CHEW PO SCH (09:23)
[2016-12-12] MEDS: ONDANSETRON 4 MG TAB PO SCH ×2 (09:23→21:07)
[2016-12-12] MEDS: AMLODIPINE BESYLATE 5 MG TAB PO SCH (09:23)
[2016-12-12] MEDS: POLYETHYLENE (MIRALAX) 17 GM PACK PO SCH (09:24)
[2016-12-12] MEDS: INSULIN ASPART 100 UNITS/ML 3 ML PEN SC SCH ×4 (09:29→21:00)
[2016-12-12] MEDS: MAGNESIUM SULFATE 1GM / D5W 1 GM in PREMIXED IN D5W 100 ML IV SCH ×2 (09:44→10:54)
[2016-12-12] MEDS: METHYLNALTREXONE BROMIDE INJ 12 MG/0.6 ML SYR SQ SCH (09:51)
[2016-12-12 11:27] VITALS: BP 136/79; PULSE 65; TEMP 36.7; O2SAT 96
[2016-12-12] MEDS ORDERED: VANCOMYCIN TROUGH ONE (11:30)
[2016-12-12] MEDS: VANCOMYCIN INJ 1,500 MG in SODIUM CHLORIDE 0.9% 500ML 500 ML IV SCH (12:01)
--- NOTE | 2016-12-12 12:37 | Gastroenterology Progress Note ---
Progress Note Date of Service: December 12, 2016 Subjective Pt evaluation today including: conversation w/ patient, physical exam, chart review, lab review, review of studies, review of inpatient medication list Mr. Perez is a 56 yr old male with a hx of cellulitis who was on doxycycline and was admitted last week for nausea/vomiting. Though nausea is not resolved it is much improved today. Tolerating a full liquid diet. Today, no abdominal pain. Review of Systems Constitutional: No fever Respiratory: No cough Cardiac: No chest pain Abdomen: + nausea, No GI bleeding, No constipation, No diarrhea, No pain, No vomiting Male : No dysuria Neuro: No memory loss Psych: No depression symptoms Heme: No abnormal bleeding/bruising Endo: No fatigue Skin: No rash Medications Current Inpatient Medications Medications (Trade) Dose Ordered Sig/Miguel Route Start Time Stop Time Status Last Admin Dose Admin Acetaminophen (Tylenol Tab) 650 mg Q4H PRN PO 12/07/16 08:45 01/06/17 08:44 Ondansetron HCl (Zofran Inj) 4 mg Q6H PRN IV 12/07/16 08:45 01/06/17 08:44 12/12/16 06:43 4 MG Acetaminophen/ Codeine Phosphate (Tylenol w/ Codeine #3 Tab) 1 tab Q6 PRN PO 12/07/16 09:00 01/06/17 08:59 12/12/16 06:45 1 TAB Albuterol (Ventolin Hfa Inhaler) 2 puffs Q6H PRN INH 12/07/16 09:00 01/06/17 08:59 Apixaban (Eliquis Tab) 5 mg Q12 PO 12/07/16 09:00 01/06/17 08:59 12/12/16 09:22 5 MG Aspirin (Aspirin Chew) 81 mg QAM PO 12/07/16 09:00 01/06/17 08:59 12/12/16 09:23 81 MG Atorvastatin Calcium (Lipitor Tab) 40 mg QPM PO 12/07/16 21:00 01/06/17 20:59 12/11/16 21:29 40 MG Bisacodyl (Dulcolax Supp) 10 mg Q24H PRN [place] 12/07/16 09:00 01/06/17 08:59 Carvedilol (Coreg Tab) 25 mg Q12 PO 12/07/16 09:00 01/06/17 08:59 12/12/16 09:22 25 MG Docusate Sodium (coLACE CAP) 100 mg BID PRN PO 12/07/16 09:00 01/06/17 08:59 Furosemide (Lasix Tab) 80 mg BID PO 12/07/16 09:00 01/06/17 08:59 12/12/16 09:22 80 MG Multivitamins/ Minerals (Multivitamin W/ Minerals Tab) 1 tab QAM PO 12/07/16 09:00 01/06/17 08:59 12/12/16 09:22 1 TAB Nitroglycerin (Nitrostat Tab) 0.4 mg UD PRN UT 12/07/16 09:00 01/06/17 08:59 12/11/16 05:56 0.4 MG Pantoprazole Sodium (Protonix Tab) 40 mg QPM PO 12/07/16 21:00 01/06/17 20:59 12/11/16 21:29 40 MG Senna/Docusate Sodium (Senokot S Tab) 2 tab HS PO 12/07/16 21:00 01/06/17 20:59 12/11/16 21:29 2 TAB Trazodone HCl (Desyrel Tab) 50 mg HS PO 12/07/16 21:00 01/06/17 20:59 12/11/16 21:29 50 MG Ursodiol (Actigall Cap) 300 mg Q12 PO 12/07/16 09:00 01/06/17 08:59 Future Hold 12/10/16 09:35 300 MG Venlafaxine HCl (effeXOR EXTENDED REL CAP) 75 mg HS PO 12/07/16 21:00 01/06/17 20:59 12/11/16 21:29 75 MG Bacitracin (Bacitracin Oint) 1 appln HS EXT 12/07/16 21:00 01/06/17 20:59 12/11/16 21:29 1 APPLN Polyethylene (Miralax Powder Packet) 17 gm QAM PO 12/07/16 09:00 01/06/17 08:59 12/12/16 09:24 17 GM Insulin Aspart (novoLOG ASPART) SLIDING SCALE If C... ACHS SC 12/07/16 11:00 01/06/17 10:59 12/12/16 09:29 10 UNITS Glucose (Glucose 40% Gel) 15-30 GRAMS 15 GRAMS... UD PRN PO 12/07/16 09:00 01/06/17 08:59 Glucose (Glucose Chew Tab) 4-8 Tablets 4 Tabl... UD PRN PO 12/07/16 09:00 01/06/17 08:59 Dextrose (Dextrose 50% 50ML Syringe) 25-50ML OF 50% DW IV FOR... UD PRN IV 12/07/16 09:00 01/06/17 08:59 Glucagon (Glucagon Inj) 1 mg UD PRN SQ 12/07/16 09:00 01/06/17 08:59 Miscellaneous (Iv Fluids Completed) 1 ea PRN PRN N/A 12/07/16 09:15 12/07/17 09:14 Ondansetron HCl (Zofran Tab) 4 mg Q12H PO 12/07/16 20:30 12/13/16 23:59 12/12/16 09:23 4 MG Amlodipine Besylate (Norvasc Tab) 5 mg QAM PO 12/08/16 09:30 01/07/17 09:29 12/12/16 09:23 5 MG Promethazine HCl (Phenergan Tab) 25 mg Q8H PRN PO 12/08/16 10:30 01/07/17 10:29 12/12/16 04:24 25 MG Hydralazine HCl (HydrALAZINE INJ) 10 mg Q4H PRN IV. 12/08/16 22:00 01/07/17 21:59 12/11/16 05:49 10 MG Hydralazine HCl (HydrALAZINE INJ) 10 mg Q4 PRN IV. 12/09/16 18:00 01/08/17 17:59 Vancomycin HCl 1 ea 1 ea UD PRN N/A 12/09/16 22:45 01/08/17 22:44 Vancomycin HCl/ Sodium Chloride (Vancomycin Inj/ Nss 500ml) 530 ml @ 200 mls/hr Q14H IV 12/10/16 18:00 12/19/16 17:59 12/12/16 12:01 200 MLS/HR Oxycodone HCl 5 mg 5 mg Q6 PRN PO 12/11/16 16:00 12/25/16 15:59 12/12/16 09:52 5 MG Fosaprepitant/ Sodium Chloride (Emend Inj/Nss 150ml) 150 ml @ 300 mls/hr ONE PRN IV 12/11/16 16:00 Methylnaltrexone Lapaz (Relistor Inj) 12 mg Q2D SQ 12/12/16 09:00 01/11/17 08:59 12/12/16 09:51 12 MG Objective Vital Signs Date Time Temp Pulse Resp B/P Pulse Ox O2 Delivery O2 Flow Rate FiO2 12/12/16 11:27 36.7 65 16 136/79 96 Room Air 12/12/16 09:30 Room Air 12/12/16 07:32 37.0 63 16 175/95 96 Room Air 12/12/16 01:00 Room Air 12/12/16 00:01 36.9 63 20 151/82 96 Room Air 12/11/16 21:48 Room Air 12/11/16 16:12 36.6 73 20 155/84 95 Room Air 12/11/16 15:13 Room Air Physical Exam General Appearance: no apparent distress Neck: no adenopathy, no JVD Respiratory/Chest: lungs clear Cardiovascular: regular rate, rhythm, no JVD, no murmur Abdomen: non tender, soft Extremities: + pertinent finding (lower leg edmea, chronic skin changes consistent with venous stasis) Neurologic/Psych: alert, normal mood/affect, oriented x 3 Skin: no jaundice Laboratory Results Last 24 Hours Test 12/11/16 12:56 12/11/16 16:51 12/11/16 19:55 12/12/16 05:20 Troponin I 0.059 ng/ml Bedside Glucose 175 mg/dl 178 mg/dl White Blood Count 11.81 K/uL Red Blood Count 4.54 M/uL Hemoglobin 12.5 g/dL Hematocrit 37.8 % Mean Corpuscular Volume 83.3 fL Mean Corpuscular Hemoglobin 27.5 pg Mean Corpuscular Hemoglobin Concent 33.1 g/dl RDW Standard Deviation 48.4 fL RDW Coefficient of Variation 15.9 % Platelet Count 203 K/uL Mean Platelet Volume 10.4 fL Sodium Level 138 mmol/L Potassium Level 3.2 mmol/L Chloride Level 101 mmol/L Carbon Dioxide Level 27 mmol/L Anion Gap 10.0 mmol/L Blood Urea Nitrogen 26 mg/dl Creatinine 2.00 mg/dl Est Creatinine Clear Calc Drug Dose 70.5 ml/min Estimated GFR () 41.7 Estimated GFR (Non- 36.0 BUN/Creatinine Ratio 12.8 Random Glucose 167 mg/dl Calcium Level 8.0 mg/dl Magnesium Level 1.7 mg/dl Total Bilirubin 0.5 mg/dl Aspartate Amino Transf (AST/SGOT) 10 U/L Alanine Aminotransferase (ALT/SGPT) 16 U/L Alkaline Phosphatase 145 U/L Total Protein 7.5 gm/dl Albumin 2.9 gm/dl Globulin 4.6 gm/dl Albumin/Globulin Ratio 0.6 Test 12/12/16 08:02 12/12/16 11:37 12/12/16 11:38 Bedside Glucose 187 mg/dl 157 mg/dl Assessment and Plan Mr. Perez is a 56 yr old admitted with nausea, most likely caused by doxycycline, possibly also from the effect of chronic narcotic use. He is much improved. Plan 1. One dose of Relistor - if resolves the nausea, then mostly likely caused by the narcotics. 2. Would avoid doxycycline in the future. 3. Would not repeat endoscopy at this time. 4. No GI contraindication to DC. -I have seen, examined, and agree with the plan as outlined from Ms. Marina Ott above. -nausea improved-? drug interaction
--- NOTE | 2016-12-12 13:39 | Progress Note ---
Medicine Progress Note Date & Time of Visit: December 12, 2016 at 13:21. Subjective Pt was seen and examined Sitting in bed with no distress Pt said that he is feels a little better today his nausea and abdominal pain improve I called his brother for him yesterday and left voicemail He feels a little happy today because his brother called him yesterday He said that yesterday was the 1st time he spoke to him in about 10yrs. denies any chest pain, palpitation, dizziness and SOB Objective Last 8 Hrs Date Time Temp Pulse Resp B/P Pulse Ox O2 Delivery O2 Flow Rate FiO2 12/12/16 11:27 36.7 65 16 136/79 96 Room Air 12/12/16 09:30 Room Air 12/12/16 07:32 37.0 63 16 175/95 96 Room Air Physical Exam: General- No acute respiratory distress Head- atraumatic Eyes- PERRL, EOMI ENT- oropharynx clear Neck- supple, no JVD Lungs- No wheezing, No crackles Heart- regular rhythm; no murmur Abdomen- normal bowel sounds, + tenderness on palpation (improved) Extremities- + edema, no calf tenderness Neuro- alert, oriented x 3; PERRL, EOMI; no facial palsy Skin- warm & dry Laboratory Results: Last 24 Hours Test 12/11/16 16:51 12/11/16 19:55 12/12/16 05:20 12/12/16 08:02 Bedside Glucose 175 mg/dl 178 mg/dl 187 mg/dl White Blood Count 11.81 K/uL Red Blood Count 4.54 M/uL Hemoglobin 12.5 g/dL Hematocrit 37.8 % Mean Corpuscular Volume 83.3 fL Mean Corpuscular Hemoglobin 27.5 pg Mean Corpuscular Hemoglobin Concent 33.1 g/dl RDW Standard Deviation 48.4 fL RDW Coefficient of Variation 15.9 % Platelet Count 203 K/uL Mean Platelet Volume 10.4 fL Sodium Level 138 mmol/L Potassium Level 3.2 mmol/L Chloride Level 101 mmol/L Carbon Dioxide Level 27 mmol/L Anion Gap 10.0 mmol/L Blood Urea Nitrogen 26 mg/dl Creatinine 2.00 mg/dl Est Creatinine Clear Calc Drug Dose 70.5 ml/min Estimated GFR () 41.7 Estimated GFR (Non- 36.0 BUN/Creatinine Ratio 12.8 Random Glucose 167 mg/dl Calcium Level 8.0 mg/dl Magnesium Level 1.7 mg/dl Total Bilirubin 0.5 mg/dl Aspartate Amino Transf (AST/SGOT) 10 U/L Alanine Aminotransferase (ALT/SGPT) 16 U/L Alkaline Phosphatase 145 U/L Total Protein 7.5 gm/dl Albumin 2.9 gm/dl Globulin 4.6 gm/dl Albumin/Globulin Ratio 0.6 Test 12/12/16 11:37 12/12/16 11:38 Bedside Glucose 157 mg/dl Vancomycin Level Trough 31.6 mcg/ml Assessment & Plan INTRACTABLE NAUSEA/VOMITING/ABDOMINAL PAIN Possible related to GI side effects from doxycycline vs viral etiology afebrile with leukocytosis mildly elevated CT abd/pelvis negative for acute process. No obstruction Continue supportive management cont IVF, anti-emetics and pain mgmt blood and urine cx- no growth Doxycycline was discontinued GI consulted appreciated input ursodiol on hold ( pt said that he was started for his gallbladder) He had gallbladder removal surgery back on 09/30 Emend seems to help with the nausea Abdominal U/S showed mild dilatation of the common bile duct. no acute finding Doubt his symptoms are related to narcotic because he is not on any narcotic as an outpatient GI gave relistorx1 to see if it will help his symptoms Improved today Consider to D/C today DIARRHEA had multiple episodes of watery diarrhea resolved ELEVATED TROPONIN Troponin slightly elevated Possible related to CKD Denies any chest pain at this time continue monitor stable HYPERTENSIVE URGENCY BP 204/115-->160s/100s start hydralazine PRN SBP>170 Amlodipine 5mg added will consider to increase to amlodipine to 10mg or add lisinopril 5 mg (or losartan since pt has many allergies to meds) Not sure if they are true allergies cont carvedilol and amlodipine BP improved Continue monitor BP ELECTROLYTES IMBALANCE K 3.2 and Mg 1.7 K and Mg replaced continue monitor electrolytes RLE CELLULITIS mild leukocytosis on admission wound cx 12/03 + Staph aureus was on Doxy course that change to vanco due to GI upset Continue IV vanco continue wound care treatment CKD STAGE III creatinine around baseline at 2.2 creatine today 2 monitor with daily prp avoid nephrotoxic agents when able 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 hold NovoLog start ISS monitor BSG AC HS ISCHEMIC CARDIOMYOPATHY echo 2014 EF 45-50% AICD in place cont Lasix CHRONIC AFIB EKG: paced rhythm cont Eliquis DVT PROPHYLAXIS cont Eliquis CODE STATUS [facility]ITION [facility] Waiting for placement for discharge Consultants: gastro Current Inpatient Medications: Current Inpatient Medications Medications (Trade) Dose Ordered Sig/Miguel Route Start Time Stop Time Status Last Admin Dose Admin Acetaminophen (Tylenol Tab) 650 mg Q4H PRN PO 12/07/16 08:45 01/06/17 08:44 Ondansetron HCl (Zofran Inj) 4 mg Q6H PRN IV 12/07/16 08:45 01/06/17 08:44 12/12/16 06:43 4 MG Acetaminophen/ Codeine Phosphate (Tylenol w/ Codeine #3 Tab) 1 tab Q6 PRN PO 12/07/16 09:00 01/06/17 08:59 12/12/16 06:45 1 TAB Albuterol (Ventolin Hfa Inhaler) 2 puffs Q6H PRN INH 12/07/16 09:00 01/06/17 08:59 Apixaban (Eliquis Tab) 5 mg Q12 PO 12/07/16 09:00 01/06/17 08:59 12/12/16 09:22 5 MG Aspirin (Aspirin Chew) 81 mg QAM PO 12/07/16 09:00 01/06/17 08:59 12/12/16 09:23 81 MG Atorvastatin Calcium (Lipitor Tab) 40 mg QPM PO 12/07/16 21:00 01/06/17 20:59 12/11/16 21:29 40 MG Bisacodyl (Dulcolax Supp) 10 mg Q24H PRN MS 12/07/16 09:00 01/06/17 08:59 Carvedilol (Coreg Tab) 25 mg Q12 PO 12/07/16 09:00 01/06/17 08:59 12/12/16 09:22 25 MG Docusate Sodium (coLACE CAP) 100 mg BID PRN PO 12/07/16 09:00 01/06/17 08:59 Furosemide (Lasix Tab) 80 mg BID PO 12/07/16 09:00 01/06/17 08:59 12/12/16 09:22 80 MG Multivitamins/ Minerals (Multivitamin W/ Minerals Tab) 1 tab QAM PO 12/07/16 09:00 01/06/17 08:59 12/12/16 09:22 1 TAB Nitroglycerin (Nitrostat Tab) 0.4 mg UD PRN UT 12/07/16 09:00 01/06/17 08:59 12/11/16 05:56 0.4 MG Pantoprazole Sodium (Protonix Tab) 40 mg QPM PO 12/07/16 21:00 01/06/17 20:59 12/11/16 21:29 40 MG Senna/Docusate Sodium (Senokot S Tab) 2 tab HS PO 12/07/16 21:00 01/06/17 20:59 12/11/16 21:29 2 TAB Trazodone HCl (Desyrel Tab) 50 mg HS PO 12/07/16 21:00 01/06/17 20:59 12/11/16 21:29 50 MG Ursodiol (Actigall Cap) 300 mg Q12 PO 12/07/16 09:00 01/06/17 08:59 Future Hold 12/10/16 09:35 300 MG Venlafaxine HCl (effeXOR EXTENDED REL CAP) 75 mg HS PO 12/07/16 21:00 01/06/17 20:59 12/11/16 21:29 75 MG Bacitracin (Bacitracin Oint) 1 appln HS EXT 12/07/16 21:00 01/06/17 20:59 12/11/16 21:29 1 APPLN Polyethylene (Miralax Powder Packet) 17 gm QAM PO 12/07/16 09:00 01/06/17 08:59 12/12/16 09:24 17 GM Insulin Aspart (novoLOG ASPART) SLIDING SCALE If C... ACHS SC 12/07/16 11:00 01/06/17 10:59 12/12/16 13:15 14 UNITS Glucose (Glucose 40% Gel) 15-30 GRAMS 15 GRAMS... UD PRN PO 12/07/16 09:00 01/06/17 08:59 Glucose (Glucose Chew Tab) 4-8 Tablets 4 Tabl... UD PRN PO 12/07/16 09:00 01/06/17 08:59 Dextrose (Dextrose 50% 50ML Syringe) 25-50ML OF 50% DW IV FOR... UD PRN IV 12/07/16 09:00 01/06/17 08:59 Glucagon (Glucagon Inj) 1 mg UD PRN SQ 12/07/16 09:00 01/06/17 08:59 Miscellaneous (Iv Fluids Completed) 1 ea PRN PRN N/A 12/07/16 09:15 12/07/17 09:14 Ondansetron HCl (Zofran Tab) 4 mg Q12H PO 12/07/16 20:30 12/13/16 23:59 12/12/16 09:23 4 MG Amlodipine Besylate (Norvasc Tab) 5 mg QAM PO 12/08/16 09:30 01/07/17 09:29 12/12/16 09:23 5 MG Promethazine HCl (Phenergan Tab) 25 mg Q8H PRN PO 12/08/16 10:30 01/07/17 10:29 12/12/16 04:24 25 MG Hydralazine HCl (HydrALAZINE INJ) 10 mg Q4H PRN IV. 12/08/16 22:00 01/07/17 21:59 12/11/16 05:49 10 MG Hydralazine HCl (HydrALAZINE INJ) 10 mg Q4 PRN IV. 12/09/16 18:00 01/08/17 17:59 Vancomycin HCl 1 ea 1 ea UD PRN N/A 12/09/16 22:45 01/08/17 22:44 Vancomycin HCl/ Sodium Chloride (Vancomycin Inj/ Nss 500ml) 530 ml @ 200 mls/hr Q14H IV 12/10/16 18:00 12/19/16 17:59 12/12/16 12:01 200 MLS/HR Oxycodone HCl 5 mg 5 mg Q6 PRN PO 12/11/16 16:00 12/25/16 15:59 12/12/16 09:52 5 MG Fosaprepitant/ Sodium Chloride (Emend Inj/Nss 150ml) 150 ml @ 300 mls/hr ONE PRN IV 12/11/16 16:00 Methylnaltrexone Felda (Relistor Inj) 12 mg Q2D SQ 12/12/16 09:00 01/11/17 08:59 12/12/16 09:51 12 MG
--- NOTE | 2016-12-12 14:05 | Pharmacy Progress Note ---
Pharmacy Antibiotic Prog Note Date of Service December 12, 2016. Subjective The patient is currently receiving vancomycin 1500 mg IV every 14 hours. The patient is currently on day # 4 of vancomycin IV therapy. Objective Height (Feet): 6 Height (Inches): 8.00 Weight (Kilograms): 161.800 Levels: Item Value Date Time Vancomycin Level Trough 31.6 mcg/ml 12/12/16 1138 Previous dose hung 12/11@2147. Lab Results (24hrs): Laboratory Tests Test 12/12/16 05:20 BUN/Creatinine Ratio 12.8 Blood Urea Nitrogen 26 mg/dl Creatinine 2.00 mg/dl White Blood Count 11.81 K/uL Micro Results: 12/07 blood x2 NG final 12/07 urine NG 12/10 stool neg. C.Diff. Recent Pertinent Medications Item Value Date Time Vancomycin HCl 530 ml @ 200 mls/hr 12/10/16 1800 1500 mg/Sodium Q14H/IV 12/12/16 1201 Chloride Assessment & Plan This drug level is: Supratherapeutic, probably due to rising creatinine and accumulation. Dose hung 12/12 @1201 was stopped after 255 ml infused (~722 mg). Will hold further doses, check random level in am, and redose empirically when vanco level is less than 18. If renal function stabilizes, may be able to calculate new dose. Hold vancomycin for now. Goal trough level estimate: between 15-20 mcg/mL. Random level has been ordered for: 12/13/16 with am labs. Pharmacy will continue to follow and will adjust dose/frequency as necessary. Thank you
[2016-12-12 15:27] VITALS: BP 108/58; PULSE 62; TEMP 36.7; O2SAT 97
[2016-12-12] MEDS: DOCUSATE SODIUM/SENNA 50/8.6MG TAB PO SCH (21:00)
[2016-12-12] MEDS: VENLAFAXINE HCL XR 75 MG CAPXR PO SCH (21:08)
[2016-12-12] MEDS: TRAZODONE HCL 50 MG TAB PO SCH (21:08)
[2016-12-12] MEDS: PANTOprazole SOD 40 MG TAB PO SCH (21:08)
[2016-12-12 21:11] VITALS: BP 146/87; PULSE 65
[2016-12-12] MEDS: ATORVASTATIN 40 MG TAB PO SCH (21:11)
[2016-12-12] MEDS: BACITRACIN OINT 15 GM TUBE EXT SCH (21:13)
[2016-12-12 23:50] VITALS: BP 130/76; PULSE 63; TEMP 36.4; O2SAT 94
[2016-12-13] MEDS: OXYCODONE HCL IR 5 MG TAB (IMMEDIATE RELEASE) PO PRN ×2 (05:43→18:00)
[2016-12-13 06:33] LABS: CREATININE 2.1 mg/dl (0.60-1.40)
[2016-12-13 07:44] VITALS: BP 150/88; PULSE 65; TEMP 36.7; O2SAT 96
[2016-12-13] MEDS: ONDANSETRON 4 MG TAB PO SCH ×2 (08:19→20:57)
[2016-12-13] MEDS: CEROVITE ADV FORMULA TAB PO SCH (08:19)
[2016-12-13] MEDS: CARVEDILOL 25 MG TAB PO SCH ×2 (08:20→20:59)
[2016-12-13] MEDS: APIXABAN 2.5 MG TAB PO SCH ×2 (08:20→20:57)
[2016-12-13] MEDS: ASPIRIN 81 MG CHEW PO SCH (08:20)
[2016-12-13] MEDS: AMLODIPINE BESYLATE 5 MG TAB PO SCH (08:20)
[2016-12-13] MEDS: FUROSEMIDE 80 MG TAB PO SCH ×2 (08:20→20:59)
[2016-12-13] MEDS: POLYETHYLENE (MIRALAX) 17 GM PACK PO SCH (08:21)
[2016-12-13] MEDS: INSULIN ASPART 100 UNITS/ML 3 ML PEN SC SCH ×4 (08:25→21:06)
[2016-12-13 08:49] LABS: BUN/CREATININE RATIO 11.7 (10-20); CREATININE 2.2 mg/dl (0.60-1.40); MAGNESIUM 1.9 mg/dl (1.8-2.4); POTASSIUM 3.2 mmol/L (3.5-5.1)
[2016-12-13 08:52] LABS: CALCIUM 7.9 mg/dl (8.5-10.1)
[2016-12-13] MEDS ORDERED: POTASSIUM CHLORIDE 20 MEQ TABCR PO ONE (11:45)
--- NOTE | 2016-12-13 12:20 | Progress Note ---
Medicine Progress Note Date & Time of Visit: December 13, 2016 at 12:10. Subjective Pt was seen and examined Sitting at the edge of the bed watching TV Pt said that he feels good he said that he does not have any abdominal pain today he said that he had a normal BM today he only has a slight nausea this morning he tolerates his diet yesterday and today denies any chest pain, palpitation, dizziness and sob Objective Last 8 Hrs Date Time Temp Pulse Resp B/P Pulse Ox O2 Delivery O2 Flow Rate FiO2 12/13/16 08:30 Room Air 12/13/16 07:44 36.7 65 20 150/88 96 Room Air Physical Exam: General- No acute respiratory distress Head- atraumatic Eyes- PERRL, EOMI ENT- oropharynx clear Neck- supple, no JVD Lungs- No wheezing, No crackles Heart- regular rhythm; no murmur Abdomen- normal bowel sounds, nontender Extremities- + edema, no calf tenderness Neuro- alert, oriented x 3; PERRL, EOMI; no facial palsy Skin- warm & dry Laboratory Results: Last 24 Hours Test 12/12/16 17:04 12/12/16 20:19 12/13/16 05:15 12/13/16 07:14 Bedside Glucose 93 mg/dl 127 mg/dl 151 mg/dl Sodium Level 137 mmol/L Potassium Level 3.2 mmol/L Chloride Level 101 mmol/L Carbon Dioxide Level 29 mmol/L Anion Gap 7.0 mmol/L Blood Urea Nitrogen 26 mg/dl Creatinine 2.20 mg/dl Est Creatinine Clear Calc Drug Dose 64.1 ml/min Estimated GFR () 37.2 Estimated GFR (Non- 32.1 BUN/Creatinine Ratio 11.7 Random Glucose 150 mg/dl Calcium Level 7.9 mg/dl Magnesium Level 1.9 mg/dl Random Vancomycin Level 31.5 mcg/ml Test 12/13/16 11:35 Bedside Glucose 212 mg/dl Assessment & Plan INTRACTABLE NAUSEA/VOMITING/ABDOMINAL PAIN Possible related to GI side effects from doxycycline vs viral etiology afebrile with leukocytosis mildly elevated CT abd/pelvis negative for acute process. No obstruction Continue supportive management cont IVF, anti-emetics and pain mgmt blood and urine cx- no growth Doxycycline was discontinued GI consulted appreciated input ursodiol on hold ( pt said that he was started for his gallbladder) He had gallbladder removal surgery back on 09/30 Emend seems to help with the nausea Abdominal U/S showed mild dilatation of the common bile duct. no acute finding Doubt his symptoms are related to narcotic because he is not on any narcotic as an outpatient GI gave relistorx1 to see if it will help his symptoms Clinically improved No abdominal pain today tolerated diet stable to discharge DIARRHEA had multiple episodes of watery diarrhea resolved ELEVATED TROPONIN Troponin slightly elevated Possible related to CKD Denies any chest pain at this time continue monitor stable HYPERTENSIVE URGENCY BP 204/115-->160s/100s start hydralazine PRN SBP>170 Amlodipine 5mg added will consider to increase to amlodipine to 10mg or add lisinopril 5 mg (or losartan since pt has many allergies to meds) Not sure if they are true allergies cont carvedilol and amlodipine BP improved Continue monitor BP ELECTROLYTES IMBALANCE K 3.2 K replaced continue monitor electrolytes RLE CELLULITIS mild leukocytosis on admission wound cx 12/03 + Staph aureus was on Doxy course that change to Vanco due to GI upset Completed Vanco course today continue wound care treatment CKD STAGE III creatinine around baseline at 2.2 creatine today 2.2 monitor with daily prp avoid nephrotoxic agents when able 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 hold NovoLog start ISS monitor BSG AC HS ISCHEMIC CARDIOMYOPATHY echo 2014 EF 45-50% AICD in place cont Lasix CHRONIC AFIB EKG: paced rhythm cont Eliquis DVT PROPHYLAXIS cont Eliquis CODE STATUS FULL CODE DISPOSITION [facility] will not take him as per lining caser Medically stable to discharge PT/OT Waiting for placement for discharge Consultants: gastro Current Inpatient Medications: Current Inpatient Medications Medications (Trade) Dose Ordered Sig/Miguel Route Start Time Stop Time Status Last Admin Dose Admin Acetaminophen (Tylenol Tab) 650 mg Q4H PRN PO 12/07/16 08:45 01/06/17 08:44 Ondansetron HCl (Zofran Inj) 4 mg Q6H PRN IV 12/07/16 08:45 01/06/17 08:44 12/12/16 06:43 4 MG Acetaminophen/ Codeine Phosphate (Tylenol w/ Codeine #3 Tab) 1 tab Q6 PRN PO 12/07/16 09:00 01/06/17 08:59 12/12/16 06:45 1 TAB Albuterol (Ventolin Hfa Inhaler) 2 puffs Q6H PRN INH 12/07/16 09:00 01/06/17 08:59 Apixaban (Eliquis Tab) 5 mg Q12 PO 12/07/16 09:00 01/06/17 08:59 12/13/16 08:20 5 MG Aspirin (Aspirin Chew) 81 mg QAM PO 12/07/16 09:00 01/06/17 08:59 12/13/16 08:20 81 MG Atorvastatin Calcium (Lipitor Tab) 40 mg QPM PO 12/07/16 21:00 01/06/17 20:59 12/12/16 21:11 40 MG Bisacodyl (Dulcolax Supp) 10 mg Q24H PRN [place] 12/07/16 09:00 01/06/17 08:59 Carvedilol (Coreg Tab) 25 mg Q12 PO 12/07/16 09:00 01/06/17 08:59 12/13/16 08:20 25 MG Docusate Sodium (coLACE CAP) 100 mg BID PRN PO 12/07/16 09:00 01/06/17 08:59 Furosemide (Lasix Tab) 80 mg BID PO 12/07/16 09:00 01/06/17 08:59 12/13/16 08:20 80 MG Multivitamins/ Minerals (Multivitamin W/ Minerals Tab) 1 tab QAM PO 12/07/16 09:00 01/06/17 08:59 12/13/16 08:19 1 TAB Nitroglycerin (Nitrostat Tab) 0.4 mg UD PRN UT 12/07/16 09:00 01/06/17 08:59 12/11/16 05:56 0.4 MG Pantoprazole Sodium (Protonix Tab) 40 mg QPM PO 12/07/16 21:00 01/06/17 20:59 12/12/16 21:08 40 MG Senna/Docusate Sodium (Senokot S Tab) 2 tab HS PO 12/07/16 21:00 01/06/17 20:59 12/11/16 21:29 2 TAB Trazodone HCl (Desyrel Tab) 50 mg HS PO 12/07/16 21:00 01/06/17 20:59 12/12/16 21:08 50 MG Ursodiol (Actigall Cap) 300 mg Q12 PO 12/07/16 09:00 01/06/17 08:59 Future Hold 12/10/16 09:35 300 MG Venlafaxine HCl (effeXOR EXTENDED REL CAP) 75 mg HS PO 12/07/16 21:00 01/06/17 20:59 12/12/16 21:08 75 MG Bacitracin (Bacitracin Oint) 1 appln HS EXT 12/07/16 21:00 01/06/17 20:59 12/12/16 21:13 1 APPLN Polyethylene (Miralax Powder Packet) 17 gm QAM PO 12/07/16 09:00 01/06/17 08:59 12/13/16 08:21 17 GM Insulin Aspart (novoLOG ASPART) SLIDING SCALE If C... ACHS SC 12/07/16 11:00 01/06/17 10:59 12/13/16 08:25 9 UNITS Glucose (Glucose 40% Gel) 15-30 GRAMS 15 GRAMS... UD PRN PO 12/07/16 09:00 01/06/17 08:59 Glucose (Glucose Chew Tab) 4-8 Tablets 4 Tabl... UD PRN PO 12/07/16 09:00 01/06/17 08:59 Dextrose (Dextrose 50% 50ML Syringe) 25-50ML OF 50% DW IV FOR... UD PRN IV 12/07/16 09:00 01/06/17 08:59 Glucagon (Glucagon Inj) 1 mg UD PRN SQ 12/07/16 09:00 01/06/17 08:59 Miscellaneous (Iv Fluids Completed) 1 ea PRN PRN N/A 12/07/16 09:15 12/07/17 09:14 Ondansetron HCl (Zofran Tab) 4 mg Q12H PO 12/07/16 20:30 12/13/16 23:59 12/13/16 08:19 4 MG Amlodipine Besylate (Norvasc Tab) 5 mg QAM PO 12/08/16 09:30 01/07/17 09:29 12/13/16 08:20 5 MG Promethazine HCl (Phenergan Tab) 25 mg Q8H PRN PO 12/08/16 10:30 01/07/17 10:29 12/12/16 04:24 25 MG Hydralazine HCl (HydrALAZINE INJ) 10 mg Q4H PRN IV. 12/08/16 22:00 01/07/17 21:59 12/11/16 05:49 10 MG Hydralazine HCl (HydrALAZINE INJ) 10 mg Q4 PRN IV. 12/09/16 18:00 01/08/17 17:59 Vancomycin HCl 1 ea 1 ea UD PRN N/A 12/09/16 22:45 01/08/17 22:44 Vancomycin HCl/ Sodium Chloride (Vancomycin Inj/ Nss 500ml) 530 ml @ 200 mls/hr Q14H IV 12/10/16 18:00 12/19/16 17:59 Future Hold 12/12/16 12:01 200 MLS/HR Oxycodone HCl 5 mg 5 mg Q6 PRN PO 12/11/16 16:00 12/25/16 15:59 12/13/16 05:43 5 MG Fosaprepitant/ Sodium Chloride (Emend Inj/Nss 150ml) 150 ml @ 300 mls/hr ONE PRN IV 12/11/16 16:00 Methylnaltrexone Fleming (Relistor Inj) 12 mg Q2D SQ 12/12/16 09:00 01/11/17 08:59 12/12/16 09:51 12 MG
--- NOTE | 2016-12-13 14:13 | Discharge Instructions ---
Discharge Instructions Date of Service December 13, 2016. Admission Reason for Admission: Abdominal Pain, Intractable Nausea And Vomiting Discharge Discharge Diagnosis / Problem: NAUSEA/VOMITING/ABD PAIN/DIARRHEA, ELEVATED TROPONIN,ELECTROLYTES IMBALANCE Discharge Goals Goal(s): Decrease discomfort, Improve function, Improve disease control Activity Recommendations Activity Limitations: resume your previous activity (As tolerated ) . Instructions / Follow-Up Instructions / Follow-Up Please schedule follow appointment with your primary care provider once discharge from rehab Continue PT/OT Continue wound care Check BMP and Magnesium in 1 week Current Hospital Diet Patient's current hospital diet: Diabetes Type 2 Diet Discharge Diet Recommended Diet: Diabetes Type 2 Diet Pending Studies Studies pending at discharge: no Laboratory Results Hemoglobin A1c Test 11/16/16 07:00 Range/Units Estimated Average Glucose 166 mg/dl Hemoglobin A1c 7.4 H 4.5-5.6 % Medical Emergencies . Who to Call and When: Medical Emergencies: If at any time you feel your situation is an emergency, please call 911 immediately. . Non-Emergent Contact Non-Emergency issues call your: Primary Care Provider Call Non-Emergent contact if: your pain is not controlled . . "Provider Documentation" section prepared by Genesis Salazar. . VTE Core Measure Inpt VTE Proph given/why not?: Other Anticoagulation
[2016-12-13 15:35] VITALS: BP 145/80; PULSE 62; TEMP 36.6; O2SAT 98
[2016-12-13 16:25] VITALS: O2SAT 98
[2016-12-13] MEDS: PANTOprazole SOD 40 MG TAB PO SCH (20:58)
[2016-12-13] MEDS: VENLAFAXINE HCL XR 75 MG CAPXR PO SCH (20:58)
[2016-12-13] MEDS: DOCUSATE SODIUM/SENNA 50/8.6MG TAB PO SCH (20:59)
[2016-12-13] MEDS: BACITRACIN OINT 15 GM TUBE EXT SCH (21:00)
[2016-12-13] MEDS: TRAZODONE HCL 50 MG TAB PO SCH (21:00)
[2016-12-13] MEDS: ATORVASTATIN 40 MG TAB PO SCH (21:00)
[2016-12-14 00:02] VITALS: BP 146/78; PULSE 60; TEMP 36.7; O2SAT 94
[2016-12-14] MEDS: OXYCODONE HCL IR 5 MG TAB (IMMEDIATE RELEASE) PO PRN ×2 (04:36→17:07)
[2016-12-14 06:54] LABS: BUN/CREATININE RATIO 12.7 (10-20); CALCIUM 7.9 mg/dl (8.5-10.1); CREATININE 2.5 mg/dl (0.60-1.40); MAGNESIUM 1.9 mg/dl (1.8-2.4); POTASSIUM 3.5 mmol/L (3.5-5.1)
[2016-12-14 07:22] VITALS: BP 158/81; PULSE 63; TEMP 36.8; O2SAT 97
[2016-12-14] MEDS: POLYETHYLENE (MIRALAX) 17 GM PACK PO SCH (08:12)
[2016-12-14] MEDS: CARVEDILOL 25 MG TAB PO SCH (08:13)
[2016-12-14] MEDS: FUROSEMIDE 80 MG TAB PO SCH (08:13)
[2016-12-14] MEDS: AMLODIPINE BESYLATE 5 MG TAB PO SCH (08:13)
[2016-12-14] MEDS: CEROVITE ADV FORMULA TAB PO SCH (08:13)
[2016-12-14] MEDS: ASPIRIN 81 MG CHEW PO SCH (08:13)
[2016-12-14] MEDS: APIXABAN 2.5 MG TAB PO SCH (08:14)
[2016-12-14] MEDS: METHYLNALTREXONE BROMIDE INJ 12 MG/0.6 ML SYR SQ SCH (08:14)
[2016-12-14] MEDS: INSULIN ASPART 100 UNITS/ML 3 ML PEN SC SCH ×3 (08:26→17:38)
--- NOTE | 2016-12-14 10:06 | Progress Note ---
Internal Med Progress Note Date of Service: December 14, 2016. Provider Documentation: SUBJECTIVE: The patient was seen and examined Sitting on a chair Denies any complaints Ready to be discharged OBJECTIVE: Vital Signs-as noted below Exam: General-Nodistress at rest Eyes-normal ENT-normal Neck-supple Lungs-clear to ausucltate bilaterally Decreased breath sound Heart-Regular,no murmur appreciated Abdomen-Benign Extremities-trace edema bilaterally Neuro-AAOx3 Lab data as noted below. ASSESSMENT & PLAN: INTRACTABLE NAUSEA/VOMITING/ABDOMINAL PAIN Possible related to GI side effects from doxycycline vs viral etiology CT abd/pelvis negative for acute process. No obstruction Blood and urine cx- no growth had multiple episodes of watery diarrhea resolved and C Diff toxin -negative Doxycycline was discontinued GI consulted appreciated input Abdominal U/S showed mild dilatation of the common bile duct. no acute finding Doubt his symptoms are related to narcotic because he is not on any narcotic as an outpatient GI gave relistorx1 to see if it will help his symptoms Clinically much better today Ready to be discharged HYPERTENSIVE URGENCY BP 204/115-->160s/100s start hydralazine PRN SBP>170 Amlodipine 5mg added BP remains in upper end but stable Increase Amlodipine to 10mg ELEVATED TROPONIN Troponin slightly elevated Possible related to CKD Denies any chest pain at this time No ACS RLE CELLULITIS mild leukocytosis on admission wound cx 12/03 + Staph aureus was on Doxy course that change to Vanco due to GI upset Completed Vanco course continue wound care treatment CKD STAGE III creatinine around baseline at 2.2 creatine today 2.2 monitor with daily prp avoid nephrotoxic agents when able Creatinine is 2.5 on 12/14/16 -advised to drink more fluid 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 hold NovoLog start ISS monitor BSG AC HS ISCHEMIC CARDIOMYOPATHY echo 2014 EF 45-50% AICD in place cont Lasix CHRONIC AFIB EKG: paced rhythm cont Eliquis DVT PROPHYLAXIS cont Eliquis CODE STATUS [facility] 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5 3.5-5.1 mmol/L Chloride Level 102 98-107 mmol/L Carbon Dioxide Level 27 21-32 mmol/L Anion Gap 9.0 3-11 mmol/L Blood Urea Nitrogen 32 7-18 mg/dl Creatinine 2.50 0.60-1.40 mg/dl Est Creatinine Clear Calc Drug Dose 56.4 ml/min Estimated GFR () 31.8 Estimated GFR (Non- 27.5 BUN/Creatinine Ratio 12.7 10-20 Random Glucose 194 70-99 mg/dl Calcium Level 7.9 8.5-10.1 mg/dl Magnesium Level 1.9 1.8-2.4 mg/dl Test 12/14/16 07:39 Range/Units Bedside Glucose 205 70-99 mg/dl
[2016-12-14] MEDS ORDERED: AMLODIPINE BESYLATE 5 MG TAB PO ONE (10:45)
[2016-12-14 14:48] VITALS: BP 129/76; PULSE 70; TEMP 36.4; O2SAT 96
[2016-12-14] MEDS ORDERED: ACET-749 PO (14:52)
[2016-12-14] MEDS ORDERED: NRV5 PO (14:52)
[2016-12-14 17:51] VITALS: BP 129/76; PULSE 70; TEMP 36.4; O2SAT 96
--- NOTE | 2016-12-15 07:25 | Discharge Summary ---
Discharge Summary Date of Service December 15, 2016. Discharge Summary Admission Date: Dec 08, 2016 at 12:02 Discharge Date: December 14, 2016 Discharge Disposition: [facility] facility Principal Diagnosis: NAUSEA/VOMITING/ABD PAIN/DIARRHEA, ELEVATED TROPONIN,ELECTROLYTES IMBALANCE Secondary Diagnoses/Problems: Please seeH&P and Hospital Medicine Consultations: gastro Medication Reconciliation New Medications: Amlodipine Besylate (Amlodipine Besylate) 5 Mg Tab 10 MG PO QAM for 30 Days, #60 TAB Continued Medications: Acetaminophen (Tylenol) 500 Mg Tab 500 MG PO Q4 PRN for Pain or Fever use for mild pain 1-3 or fever >101f max 3gm apap/24hr Acetaminophen/Codeine (Tylenol W/Codeine #3) 300 Mg/30 Mg Tab 1 TAB PO Q6 PRN for Pain for 3 Days, #12 (This prescription has been renewed) max 3gm apap/24hr Albuterol Hfa (Ventolin Hfa) 200 Puffs/75802 Mcg Aers 2 PUFFS INH Q6H PRN for Wheezing Apixaban (Eliquis) 2.5 Mg Tab 5 MG PO Q12, TAB Aspirin (Aspirin Chewable) 81 Mg Chew 81 MG PO QAM Atorvastatin (Lipitor) 40 Mg Tab 40 MG PO QPM Bacitracin (Topical) (Bacitracin) 500 Unit/Gm Oin 1 APPLN TOP HS apply to affected area Bisacodyl (Dulcolax) 10 Mg Sup 1 SUPP [place] Q24H PRN for no bm past 2 days, SUP Carvedilol (Coreg) 25 Mg Tab 25 MG PO Q12 Docusate Sodium (Docusate Sodium) 100 Mg Cap 1 CAP PO BID PRN for Constipation, CAP Furosemide (Lasix) 80 Mg Tab 80 MG PO BID, 3 Refills take @ 0630 & 1630 Insulin Aspart (Novolog Flexpen) 100 Units/Ml Inj UNITS SQ ACHS sliding scale BSG GIVE INSULIN UNITS 70-130 0 units 131-180 2 181-240 4 241-300 6 301-350 8 351-400 10 >400 12 units and call Insulin Aspart (Novolog Flexpen) 100 Units/Ml Inj 15 UNITS SQ TIDM give in addition to sliding scale Multiple Vitamins W/ Minerals (Theragran-M) 1 Tab Tab 1 TAB PO QAM Nitroglycerin (Nitrostat) 0.4 Mg Tab 0.4 MG UT UD PRN for Chest Pain Ondansetron Hcl (Zofran) 8 Mg Tab 8 MG PO Q8 PRN for Nausea Pantoprazole (Protonix) 40 Mg Tab 40 MG PO QPM, #30 TAB Polyethylene Glycol 3350 (Miralax) 1 Pow Pow 17 GM PO DAILY, #255 GM Sennosides-Docusate Sodium (Sennalax-S) 1 Tab Tab 2 TABS PO HS Trazodone Hcl (Trazodone) 50 Mg Tab 50 MG PO HS, TAB Ursodiol (Ursodiol) 300 Mg Cap 1 CAP PO Q12 Venlafaxine Hcl (Venlafaxine Extended Rel) 75 Mg Cap 75 MG PO HS Discontinued Medications: Doxycycline Hyclate (Vibramycin) 100 Mg Cap 1 CAP PO BID for 7 Days, #14 CAP stop 12/13/16 Admission Information HPI (per Admitting provider): This is a 56 y/o male with PMHx of CKD stage III, Insulin-Dependent DM 2, Systolic CHF on Lasix, CAD, chronic Afib on Eliquis, HTN, Dyslipidemia and other problems as outlined below who presents to the ED from [facility] with intractable N/V x 2 days. Pt was recently admitted to [facility] from -12/06 with Hyperkalemia and RLE Cellulitis. Wound culture + staph aureus. Pt was treated with IV Vanco as inpatient and discharged to [facility] on Doxycycline. Pt reports that 2 days ago he developed mild nausea. Since that time the nausea has become constant and he has been vomiting at least 4 times daily. Sxs are assoc with chills, loss of of appetite, diffuse 8/10 abd pain and dysuria. Last BM was 2 days ago. He has been taking Zofran with no relief. Pt denies fever, diaphoresis, chest pain, palpitations, SOB, wheezing, hematemesis, hematuria, worsening LE edema, calf pain, lightheadedness/ dizziness. In the ED, BP is elevated on arrival. Pt is afebrile with leukocytosis >11k. POC lactic acid 1.2. LFTs WNL. UA negative. CT abd/pelvis is negative for acute process. Pt received multiple anti-emetics in the ED and continues to have severe nausea. Pt is stable and will be admitted for further evaluation and treatment. Past Medical/Surgical History Medical Problems: (1) CAD (coronary artery disease) Status: Chronic (2) Chronic a-fib Status: Chronic (3) Diabetes mellitus, type II Status: Chronic (4) Dyslipidemia Status: Chronic (5) Heart attack Status: Resolved (6) History of pulmonary embolus (PE) Status: Chronic (7) History of stroke Status: Chronic (8) HTN (hypertension) Status: Chronic (9) Ischemic cardiomyopathy Status: Resolved (10) Obstructive hydrocephalus Status: Chronic (11) MERY (obstructive sleep apnea) Status: Chronic (12) Pulmonary embolism Status: Resolved (13) Stage 3 chronic kidney disease Status: Chronic (14) Systolic CHF Status: Chronic Surgical Problems: (1) History of cholecystectomy Permanent Comment: 08/23/16 Status: Resolved Family History No pertinent family history Social History Smoking Status: Never Smoker Alcohol Use: none Drug Use: none Marital Status: Housing status: other ([facility]) Occupational Status: retired Immunizations History of Influenza Vaccine: Unknown Multi-Drug Resistant 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 Allergies Coded Allergies: Amoxicillin (Verified Allergy, Unknown, unknown, 12/07/16) Cephalosporins (Verified Allergy, Unknown, unknown, 12/07/16) Ciprofloxacin (Verified Allergy, Unknown, unknown, 12/07/16) Clindamycin (Verified Allergy, Unknown, unknown, 12/07/16) Iodinated Diagnostic Agents (Verified Allergy, Unknown, unknown, 12/07/16) Penicillins (Unverified Allergy, Unknown, unknown, 11/15/16) Uncoded Allergies: PERFLUTREN LIPID MICROSPHERES (Allergy, Unknown, unknown, 12/07/16) Home Medications Scheduled Apixaban (Eliquis), 5 MG PO Q12 Aspirin (Aspirin Chewable), 81 MG PO QAM Atorvastatin (Lipitor), 40 MG PO QPM Bacitracin (Topical) (Bacitracin), 1 APPLN TOP HS Carvedilol (Coreg), 25 MG PO Q12 Doxycycline Hyclate (Vibramycin), 1 CAP PO BID Furosemide (Lasix), 80 MG PO BID Insulin Aspart (Novolog Flexpen), UNITS SQ ACHS Insulin Aspart (Novolog Flexpen), 15 UNITS SQ TIDM Multiple Vitamins W/ Minerals (Theragran-M), 1 TAB PO QAM Pantoprazole (Protonix), 40 MG PO QPM Polyethylene Glycol 3350 (Miralax), 17 GM PO DAILY Sennosides-Docusate Sodium (Sennalax-S), 2 TABS PO HS Trazodone Hcl (Trazodone), 50 MG PO HS Ursodiol (Ursodiol), 1 CAP PO Q12 Venlafaxine Hcl (Venlafaxine Extended Rel), 75 MG PO HS Scheduled PRN Acetaminophen (Tylenol), 500 MG PO Q4 PRN for Pain or Fever Acetaminophen/Codeine (Tylenol W/Codeine #3), 1 TAB PO Q6 PRN for Pain Albuterol Hfa (Ventolin Hfa), 2 PUFFS INH Q6H PRN for Wheezing Bisacodyl (Dulcolax), 1 SUPP [place] Q24H PRN for no bm past 2 days Docusate Sodium (Docusate Sodium), 1 CAP PO BID PRN for Constipation Nitroglycerin (Nitrostat), 0.4 MG UT UD PRN for Chest Pain Ondansetron Hcl (Zofran), 8 MG PO Q8 PRN for Nausea Review of Systems Constitutional: + chills, + fatigue, + weakness, No fever, No sweats Eyes: No worsening of vision ENT: No hearing loss Respiratory: No cough Cardiovascular: No chest pain, No claudication, No edema Abdomen: + constipation, + nausea, + pain, + vomiting, No GI bleeding, No diarrhea Musculoskeletal: No calf pain, No swelling Genitourinary - Male: + dysuria, No hematuria, No urinary frequency Neurologic: + weakness Psychiatric: No depression symptoms Endocrine: + fatigue Hematologic / Lymphatic: No abnormal bleeding/bruising Physical Exam Vital Signs Date Time Temp Pulse Resp B/P Pulse Ox O2 Delivery O2 Flow Rate FiO2 12/07/16 08:00 99 Room Air 12/07/16 07:00 63 19 172/100 99 12/07/16 06:59 177/98 12/07/16 06:45 68 23 12/07/16 06:44 204/115 12/07/16 06:40 62 15 99 12/07/16 06:35 24 12/07/16 06:30 63 19 98 12/07/16 06:26 190/94 12/07/16 06:25 61 24 91 12/07/16 06:20 65 19 97 12/07/16 06:15 64 15 98 4/26/17 06:13 63 22 202/90 98 Room Air 12/07/16 06:11 202/90 12/07/16 06:10 64 16 12/07/16 06:06 68 12/07/16 05:11 63 20 171/95 96 Room Air 12/07/16 04:32 63 22 184/99 92 Room Air 12/07/16 03:32 67 28 188/120 100 Room Air 12/07/16 03:00 64 12/07/16 02:47 36.9 66 20 190/115 99 Room Air General Appearance: WD/WN, + mild distress (due to nausea), + obese, + pertinent finding (Pt is sitting up in bed with no family at bedside) Head: normocephalic, atraumatic Eyes: normal inspection ENT: hearing grossly normal Neck: supple Respiratory/Chest: chest non-tender, lungs clear, normal breath sounds, no respiratory distress Cardiovascular: regular rate, rhythm, no murmur Abdomen/GI: normal bowel sounds, soft, + tenderness (diffuse; worse in LUQ) Back: normal inspection Extremities/Musculoskelatal: + pedal edema (1+ pitting edema bilat ), + pertinent finding (chronic venous stasis skin changes; wound to RLE ) Neurologic/Psych: alert, normal mood/affect, oriented x 3 Skin: warm/dry Diagnostics Laboratory Results Results Past 24 Hours Test 12/07/16 02:40 12/07/16 02:44 12/07/16 04:27 12/07/16 04:58 Range/Units White Blood Count 11.16 4.8-10.8 K/uL Red Blood Count 4.17 4.7-6.1 M/uL Hemoglobin 11.3 14.0-18.0 g/dL Hematocrit 34.9 42-52 % Mean Corpuscular Volume 83.7 80-100 fL Mean Corpuscular Hemoglobin 27.1 25-34 pg Mean Corpuscular Hemoglobin Concent 32.4 32-36 g/dl Platelet Count 288 130-400 K/uL Mean Platelet Volume 9.6 7.4-10.4 fL Neutrophils (%) (Auto) 91.3 % Lymphocytes (%) (Auto) 6.0 % Monocytes (%) (Auto) 1.6 % Eosinophils (%) (Auto) 0.4 % Basophils (%) (Auto) 0.3 % Neutrophils # (Auto) 10.19 1.4-6.5 K/uL Lymphocytes # (Auto) 0.67 1.2-3.4 K/uL Monocytes # (Auto) 0.18 0.11-0.59 K/uL Eosinophils # (Auto) 0.04 0-0.5 K/uL Basophils # (Auto) 0.03 0-0.2 K/uL RDW Standard Deviation 48.2 36.4-46.3 fL RDW Coefficient of Variation 15.8 11.5-14.5 % Immature Granulocyte % (Auto) 0.4 % Immature Granulocyte # (Auto) 0.05 0.00-0.02 K/uL Sodium Level 144 136-145 mmol/L Potassium Level 4.7 3.5-5.1 mmol/L Chloride Level 113 98-107 mmol/L Carbon Dioxide Level 25 21-32 mmol/L Anion Gap 6.0 3-11 mmol/L Blood Urea Nitrogen 48 7-18 mg/dl Creatinine 2.20 0.60-1.40 mg/dl Est Creatinine Clear Calc Drug Dose 64.1 ml/min Estimated GFR () 37.2 Estimated GFR (Non- 32.1 BUN/Creatinine Ratio 21.6 10-20 Random Glucose 185 70-99 mg/dl Calcium Level 8.9 8.5-10.1 mg/dl Magnesium Level 1.9 1.8-2.4 mg/dl Total Bilirubin 0.5 0.2-1 mg/dl Direct Bilirubin 0.2 0-0.2 mg/dl Aspartate Amino Transf (AST/SGOT) 17 15-37 U/L Alanine Aminotransferase (ALT/SGPT) 20 12-78 U/L Alkaline Phosphatase 189 45-117 U/L Total Protein 9.0 6.4-8.2 gm/dl Albumin 3.1 3.4-5.0 gm/dl Lipase 130 73-393 U/L Bedside Lactic Acid Venous 1.21 0.90-1.70 mmol/L Urine Color YELLOW Urine Appearance CLEAR CLEAR Urine pH 6.5 4.5-7.5 Urine Specific [place] 1.016 1.000-1.030 Urine Protein 3+ NEG Urine Glucose (UA) 1+ NEG Urine Ketones TRACE NEG Urine Occult Blood 1+ NEG Urine Nitrite NEG NEG Urine Bilirubin NEG NEG Urine Urobilinogen NEG NEG Urine Leukocyte Esterase NEG NEG Urine WBC (Auto) 1-5 0-5 /hpf Urine RBC (Auto) 5-10 0-4 /hpf Urine Hyaline Casts (Auto) 1-5 0-5 /lpf Urine Epithelial Cells (Auto) 10-20 0-5 /lpf Urine Bacteria (Auto) NEG NEG Prothrombin Time 14.7 9.0-12.0 SECONDS Prothromb Time International Ratio 1.4 0.9-1.1 Microbiology Results 12/07/16 Blood Culture, Received Pending 12/07/16 Blood Culture, Received Pending Diagnostic Radiology CT ABD/PELVIS IMPRESSION: 1. There are no acute infectious or inflammatory findings in the abdomen or pelvis. 2. Hepatomegaly and hepatic steatosis. 3. Splenomegaly. 4. Marked cardiomegaly. 5. 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 The right IVC and the right iliac veins are likely chronically occluded and there are large venous collaterals. 6. Additional findings as above. 1. Significantly suboptimal examination without oral and IV contrast. EKG EKG: vent-paced rhythm at 63 bpm with no change when compared to EKG from 11/15/16 Impression Assessment and Plan INTRACTABLE NAUSEA/VOMITING pt presented from [facility] with intractable N/V assoc with diffuse abd pain -admit observation status to med/surg -pt is afebrile with leukocytosis>11k -CT abd/pelvis negative for acute process. No obstruction -electrolytes WNL; check Mag -Lipase and LFTs WNL except for elevated alk phos -UA negative -blood and urine cx-pending -cont IVF, anti-emetics and pain mgmt -monitor CONSTIPATION -last BM 2 days ago; may be contributing to abdominal discomfort -start bowel regimen -monitor HYPERTENSIVE URGENCY -BP 204/115-->160s/100s -start hydralazine PRN SBP>180 -cont carvedilol -monitor RLE CELLULITIS -mild leukocytosis; POC lactic acid 1.2 -wound cx 12/03 + Staph aureus -cont Doxy course (to be completed 12/13/16) -wound care nurse CKD STAGE III -creatinine around baseline at 2.2 -gentle IVF -monitor with daily prp and avoid nephrotoxic agents when able INSULIN-DEPENDENT DM 2 -A1C 8.2 -hold NovoLog -start ISS -monitor BSG AC HS ISCHEMIC CARDIOMYOPATHY -echo 2014 EF 45-50% -AICD in place -cont Lasix CHRONIC AFIB -EKG: paced rhythm -cont Eliquis DVT PROPHYLAXIS -cont Eliquis CODE STATUS -FULL CODE status per discussion with patient upon admission DISPO -Pt will return to [facility] upon discharge. PT/OT evals placed. -Pt seen in collaboration with Dr. Salazar. Please see his addendum for further details. Thanks! Attending Addendum Pt was seen and examined. Agreed with Kayleigh FRANCIS physical exam, assessment and plan. 56 y/o male with PMHx of CKD stage III, Insulin-Dependent DM 2, Systolic CHF on Lasix, CAD, chronic Afib on Eliquis, HTN, Dyslipidemia presents to the ED from [facility] with intractable N/V started about 2 days. Pt was recently admitted to [facility] from 12/03-12/06 with Hyperkalemia and RLE Cellulitis. His wound culture grew staph aureus. Received IV vanco during his admission and he was discharged to [facility] on Doxycycline. Pt said that he feels like the N/V started after he was starting on the doxy. He said that the nausea has gotten worst and associated with vomiting. Denies any chest pain, palpitation, dizziness. General- Obese, no acute respiratory distress Head- atraumatic Eyes- PERRL, EOMI ENT- oropharynx clear Neck- supple, no JVD Lungs- No wheezing Heart- regular rhythm; no murmur Abdomen- normal bowel sounds, +Tenderness Extremities- +edema, no calf tenderness, chronic venous stasis skin changes; wound to RLE Neuro- alert, oriented x 3; PERRL, EOMI; no facial palsy A/P INTRACTABLE NAUSEA/VOMITING Possible related to GI side effects from doxycycline vs viral etiology afebrile with leukocytosis mildly elevated CT abd/pelvis negative for acute process. No obstruction Continue supportive management cont IVF, anti-emetics and pain mgmt blood and urine cx-pending Lab, Imaging reviewed Please Refer to Kalyeigh FRANCIS documentation for other problems. Genesis Salazar MD Advanced Directives Existing Living Will: No Existing Power of Tax Compliance Manager: No VTE Prophylaxis VTE Risk Assessment Done? Y/N: Yes Risk Level: High Physical Exam (per Admitting): General Appearance: WD/WN, + mild distress (due to nausea), + obese, + pertinent finding (Pt is sitting up in bed with no family at bedside) Head: normocephalic, atraumatic Eyes: normal inspection ENT: hearing grossly normal Neck: supple Respiratory/Chest: chest non-tender, lungs clear, normal breath sounds, no respiratory distress Cardiovascular: regular rate, rhythm, no murmur Abdomen/GI: normal bowel sounds, soft, + tenderness (diffuse; worse in LUQ) Back: normal inspection Extremities/Musculoskelatal: + pedal edema (1+ pitting edema bilat ), + pertinent finding (chronic venous stasis skin changes; wound to RLE ) Neurologic/Psych: alert, normal mood/affect, oriented x 3 Skin: warm/dry Hospital Course INTRACTABLE NAUSEA/VOMITING/ABDOMINAL PAIN Possible related to GI side effects from doxycycline vs viral etiology CT abd/pelvis negative for acute process. No obstruction Blood and urine cx- no growth had multiple episodes of watery diarrhea resolved and C Diff toxin -negative Doxycycline was discontinued GI consulted appreciated input Abdominal U/S showed mild dilatation of the common bile duct. no acute finding Doubt his symptoms are related to narcotic because he is not on any narcotic as an outpatient GI gave relistorx1 to see if it will help his symptoms Clinically much better today Ready to be discharged HYPERTENSIVE URGENCY BP 204/115-->160s/100s start hydralazine PRN SBP>170 Amlodipine 5mg added BP remains in upper end but stable Increase Amlodipine to 10mg ELEVATED TROPONIN Troponin slightly elevated Possible related to CKD Denies any chest pain at this time No ACS RLE CELLULITIS mild leukocytosis on admission wound cx 12/03 + Staph aureus was on Doxy course that change to Vanco due to GI upset Completed Vanco course continue wound care treatment CKD STAGE III creatinine around baseline at 2.2 creatine today 2.2 monitor with daily prp avoid nephrotoxic agents when able Creatinine is 2.5 on 12/14/16 -advised to drink more fluid 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 hold NovoLog start ISS monitor BSG AC HS ISCHEMIC CARDIOMYOPATHY echo 2014 EF 45-50% AICD in place cont Lasix CHRONIC AFIB EKG: paced rhythm cont Eliquis DVT PROPHYLAXIS cont Eliquis CODE STATUS FULL CODE [facility]POSITION [facility] as per family service caseworker Medically stable to discharge PT/OT Waiting for placement for discharge Consultants: gastro Total time spent on discharge = 35 minutes This includes examination of the patient, discharge planning, medication reconciliation, and communication with other providers. Discharge Instructions Date of Service December 13, 2016. Admission Reason for Admission: Abdominal Pain, Intractable Nausea And Vomiting Discharge Discharge Diagnosis / Problem: NAUSEA/VOMITING/ABD PAIN/DIARRHEA, ELEVATED TROPONIN,ELECTROLYTES IMBALANCE Discharge Goals Goal(s): Decrease discomfort, Improve function, Improve disease control Activity Recommendations Activity Limitations: resume your previous activity (As tolerated ) . Instructions / Follow-Up Instructions / Follow-Up Please schedule follow appointment with your primary care provider once discharge from rehab Continue PT/OT Continue wound care Check BMP and Magnesium in 1 week Current Hospital Diet Patient's current hospital diet: Diabetes Type 2 Diet Discharge Diet Recommended Diet: Diabetes Type 2 Diet Pending Studies Studies pending at discharge: no Laboratory Results Hemoglobin A1c Test 11/16/16 07:00 Range/Units Estimated Average Glucose 166 mg/dl Hemoglobin A1c 7.4 H 4.5-5.6 % Medical Emergencies . Who to Call and When: Medical Emergencies: If at any time you feel your situation is an emergency, please call 911 immediately. . Non-Emergent Contact Non-Emergency issues call your: Primary Care Provider Call Non-Emergent contact if: your pain is not controlled . . "Provider Documentation" section prepared by Genesis Salazar. . VTE Core Measure Inpt VTE Proph given/why not?: Other Anticoagulation <Electronically signed by Drake Patel M.D.> Additional Copies To Ra Sullivan D.O.
[2017-01-14] MEDS ORDERED: DXY100 PO (20:08)
[2017-01-14] MEDS ORDERED: TRAZ50TA35 PO (20:08)
[2017-01-14] MEDS ORDERED: FRRS300 PO (20:08)
[2017-01-14] MEDS ORDERED: ACET-749 PO (20:08)
[2017-04-04] MEDS ORDERED: POLY335019 PO (02:57)
[2017-04-04] MEDS ORDERED: ASPCH81X PO (03:14)
[2017-04-04] MEDS ORDERED: MULT-116 PO (03:27)
[2017-04-04] MEDS ORDERED: NTRGSL/4 UT (03:29)
[2017-04-04] MEDS ORDERED: BISA10SU38 PR (03:30)
[2017-04-04] MEDS ORDERED: VNTHFA/IN INH (03:31)
[2017-04-04] MEDS ORDERED: ATOR-24 PO (10:02)
[2017-04-04] MEDS ORDERED: CARV25TA2 PO (10:02)
[2017-04-04] MEDS ORDERED: VENL75CA73 PO (10:02)
[2017-04-04] MEDS ORDERED: SENN1TAB86 PO (10:02)
[2017-04-04] MEDS ORDERED: URSO300C8 PO (10:02)
[2017-04-07] MEDS ORDERED: DXY100 PO (15:41)
[2017-05-08] MEDS ORDERED: LPT40 PO (16:13)
[2017-05-08] MEDS ORDERED: AMX500 PO (16:13)
[2017-05-08] MEDS ORDERED: CPR500 PO (16:13)
[2017-05-29] MEDS ORDERED: FLM4 PO (13:05)
[2017-05-29] MEDS ORDERED: NYSP EXT (13:05)
[2017-05-29] MEDS ORDERED: DRGTP25 TD (13:05)
[2017-05-29] MEDS ORDERED: LSX80 PO (13:05)
[2017-05-29] MEDS ORDERED: WARF5TAB90 PO (13:05)
[2017-05-29] MEDS ORDERED: NVLGIPEN SC (13:05)
[2017-05-29] MEDS ORDERED: LVMI SQ (13:05)
[2017-05-29] MEDS ORDERED: AMOX500C3 PO (13:10)
[2017-05-29] MEDS ORDERED: CIPR-255 PO (13:10)
[2017-05-29] MEDS ORDERED: LCTX PO ×3 (13:42→13:47)
[2017-06-30] MEDS ORDERED: POTA1CAP2 PO (15:19)
[2017-07-10] MEDS ORDERED: VANC500I IV (16:08)
[2017-07-10] MEDS ORDERED: [UNRECOGNIZED DRUG - CODE] IV (16:08)
[2017-07-10] MEDS ORDERED: LEVO25TA PO (16:08)
[2017-07-10] MEDS ORDERED: CMD2 PO (16:08)
[2017-07-10] MEDS ORDERED: LSX80 PO (16:08)
== END 2016-12-14 19:35 | DRG 392 ==
LOC: ENRESERVTM → ENRESERVDT → EDBD 02:29 → C.EDA 02:30 → C.4E 08:42 → UNDOADMOB 08:42 → EDBEDREQ 08:54 → OBSVTOIN 12-08 12:02 → INTOOBSV 12-08 12:02
PROVIDERS: ADMIT Internal Medicine; ATTEND Internal Medicine
DX: R11.2 Nausea with vomiting, unspecified (principal); L03.115 Cellulitis of right lower limb; I50.22 Chronic systolic (congestive) heart failure; I13.0 Hypertensive heart and chronic kidney disease with heart failure and stage 1 through stage 4 chronic kidney disease, or unspecified chronic kidney disease; I16.0 Hypertensive urgency; N18.3 Chronic kidney disease, stage 3 (moderate); E11.22 Type 2 diabetes mellitus with diabetic chronic kidney disease; I25.10 Atherosclerotic heart disease of native coronary artery without angina pectoris; E78.5 Hyperlipidemia, unspecified; E87.8 Other disorders of electrolyte and fluid balance, not elsewhere classified; R10.9 Unspecified abdominal pain; R79.89 Other specified abnormal findings of blood chemistry; K59.00 Constipation, unspecified; D72.829 Elevated white blood cell count, unspecified; R19.7 Diarrhea, unspecified; T36.4X5A Adverse effect of tetracyclines, initial encounter; T40.605A Adverse effect of unspecified narcotics, initial encounter; B34.9 Viral infection, unspecified; B95.61 Methicillin susceptible Staphylococcus aureus infection as the cause of diseases classified elsewhere; R53.1 Weakness; I48.2 Chronic atrial fibrillation; I25.5 Ischemic cardiomyopathy; R26.89 Other abnormalities of gait and mobility; G47.33 Obstructive sleep apnea (adult) (pediatric); F32.9 Major depressive disorder, single episode, unspecified; Z96.89 Presence of other specified functional implants; H54.7 Unspecified visual loss; Z86.718 Personal history of other venous thrombosis and embolism; I25.2 Old myocardial infarction; Z86.79 Personal history of other diseases of the circulatory system; Z87.2 Personal history of diseases of the skin and subcutaneous tissue; Z86.73 Personal history of transient ischemic attack (TIA), and cerebral infarction without residual deficits; Z87.39 Personal history of other diseases of the musculoskeletal system and connective tissue; Z86.711 Personal history of pulmonary embolism; Z95.810 Presence of automatic (implantable) cardiac defibrillator; Z79.01 Long term (current) use of anticoagulants; Z79.82 Long term (current) use of aspirin; Z79.4 Long term (current) use of insulin; Z79.899 Other long term (current) drug therapy; Z79.891 Long term (current) use of opiate analgesic; Z88.0 Allergy status to penicillin; Z88.1 Allergy status to other antibiotic agents; Z91.041 Radiographic dye allergy status; Z88.8 Allergy status to other drugs, medicaments and biological substances

== ENCOUNTER 2017-01-10 14:05 | Inpatient (IN) | payer OTHER ==
[~2017-01-10] VITALS: Ht 193 cm; Wt 194.0 kg
[~2017-01-10 14:05] MED LIST changes: +ACET-1256 PO; +ACET-749 PO; -ACET30TA PO; +APIX1TAB PO; -ASPI81TA28 PO; +BACI500O11 TOP; -CMD10 PO; +DOCU100C31 PO; -DOXY100C PO; -ENOX120I SQ; -FRS/40 PO; -LISI20TA3 PO; -LVMI SC; -MELATAB2 PO; -METO50TA16 PO; -NIFE60TA57 PO; +NRV5 PO; -NTRGSL/4 UT; -NXM/40 PO; +ONDA8TAB6 PO; +PANT40TA PO; -POTA10CA28 PO; -PREG1CAP70 PO; -SUCR1TAB29 PO; +TRAZ50TA35 PO
[2017-01-10 15:50] LABS: BASO % 0.3 %; BASO ABS # 0.02 K/uL (0-0.2); EOS % 4.5 %; HEMATOCRIT 26.9 % (42-52); IG% 0.1 %; LYMPH % 11.6 %; LYMPH ABS # 0.86 K/uL (1.2-3.4); MEAN CELL VOLUME 89.1 fL (80-100); MEAN CORPUSCULAR HEMOGLOBIN 28.5 pg (25-34); MEAN PLATELET VOLUME 9.9 fL (7.4-10.4); MONO % 6.2 %; NEUT % 77.3 %; PLATELET COUNT 149 K/uL (130-400); RED BLOOD COUNT 3.02 M/uL (4.7-6.1); WHITE BLOOD COUNT 7.41 K/uL (4.8-10.8)
--- NOTE | 2017-01-10 15:52 | DIAGNOSTIC IMAGING REPORT ---
CHEST ONE VIEW PORTABLE CLINICAL HISTORY: Weakness COMPARISON STUDY: 11/15/2016 FINDINGS: The heart is enlarged. There is a left subclavian dual-chamber central venous pacemaker present. The examination is limited from a technical standpoint in part due to the patient's large body habitus. There are suspected right apical airspace opacities. Mild vascular prominence. A follow-up PA and lateral study is recommended. IMPRESSION: 1. Technically limited study. 2. Cardiomegaly and probable mild pulmonary vascular congestion 3. Equivocal right apical airspace opacities 4. A follow-up PA and lateral study is recommended. Electronically signed by: Richard Byrd M.D. 01/10/2017 3:51 PM Dictated Date/Time: 01/10/2017 3:48 PM
[2017-01-10 16:00] LABS: INR 1.1 (0.9-1.1); PARTIAL THROMBOPLASTIN RATIO 1.2; PROTHROMBIN TIME (PATIENT) 11.7 SECONDS (9.0-12.0)
--- NOTE | 2017-01-10 16:10 | DIAGNOSTIC IMAGING REPORT ---
CT SCAN OF THE BRAIN WITHOUT IV CONTRAST CLINICAL HISTORY: Generalized weakness. COMPARISON STUDY: CT of the brain dated 12/09/2016. TECHNIQUE: Unenhanced axial CT scan of the brain is performed from the vertex to the skull base. CT DOSE: 906.34 mGycm FINDINGS: Brain parenchyma: There are age-related involutional changes noting [id number] patchy subcortical and periventricular microangiopathic change. Small chronic lacunar infarcts are identified in the cerebellar hemispheres and the left thalamus. There is no hemorrhage, mass effect, or evidence of acute territorial ischemia by CT criteria. Valenzuela-white matter is preserved. No extra-axial fluid collection is seen. Ventricles, sulci, cisterns: Prominent secondary to involutional change. Intracranial vasculature: There is atherosclerotic calcification of the cavernous carotid and vertebral arteries. Calvarium: Unremarkable. Sinuses and mastoids: The visualized paranasal sinuses are clear. The mastoid air cells are well pneumatized. Orbits: The bony orbits are grossly intact. IMPRESSION: There is no hemorrhage, mass effect, or evidence of acute territorial ischemia by CT criteria. Electronically signed by: Neville Izquierdo M.D. 01/10/2017 4:08 PM Dictated Date/Time: 01/10/2017 4:06 PM
[2017-01-10 16:19] LABS: ALT/SGPT 14 U/L (12-78); BLOOD UREA NITROGEN 63 mg/dl (7-18); BUN/CREATININE RATIO 23.5 (10-20); CALCIUM 7.9 mg/dl (8.5-10.1); CARBON DIOXIDE 30 mmol/L (21-32); CHLORIDE 104 mmol/L (98-107); GLUCOSE 153 mg/dl (70-99); MAGNESIUM 2.8 mg/dl (1.8-2.4); POTASSIUM 4.5 mmol/L (3.5-5.1); SODIUM 140 mmol/L (136-145)
[2017-01-10 16:27] LABS: ALKALINE PHOSPHATASE 175 U/L (45-117); AST/SGOT 15 U/L (15-37); CKMB/CK RATIO 4.1 (0-3.0)
[2017-01-10 16:37] LABS: MANUAL MICROSCOPIC REQUIRED? NO; REVIEW REQ? NO; URINE APPEARANCE CLEAR (CLEAR); URINE BILIRUBIN NEG (NEG); URINE COLOR YELLOW; URINE EPITHELIAL CELL AUTO 0-5 /lpf (0-5); URINE NITRITE NEG (NEG); URINE PH 6.5 (4.5-7.5); URINE SPECIFIC GRAVITY 1.012 (1.000-1.030); UROBILINOGEN NEG (NEG)
[2017-01-10 16:42] LABS: ARTERIAL BLD GAS O2 SATURATION 94.1 % (90-95); ARTERIAL BLOOD GAS BASE EXCESS 3.4 mEq/L (-9-1.8); ARTERIAL BLOOD GAS HCO3 28 mmol/L (19-24); ARTERIAL BLOOD GAS PO2 80 mm/Hg (80-95); ARTERIAL BLOOD GAS pH 7.42 (7.35-7.45)
[2017-01-10 16:43] LABS: ALLEN TEST POS (POS); O2 ADMINISTRATION ROOM AIR
--- NOTE | 2017-01-10 16:52 | EMERGENCY ROOM VISIT NOTE ---
History First contact with patient: 14:43 Chief Complaint: HYPOGLYCEMIA Stated Complaint: AMS Nursing Triage Summary: pt presents via BLS Per [facility] staff patient had a hypoglycemic episode with glucagon treatment he has been increasingly agitated in ambulance ride BSG was 199 He has bilateral leg wounds that are currently wheepy He had a 17 LB weight gain in the past week and a half History of Present Illness The patient is a 56 year old male who presents to the Emergency Room by ambulance from heart side with complaints of hypoglycemia. The patient has been confused since then making it difficult to obtain a full history. The patient stated that they found his glucose level to be in the 40s this morning and did no give any other information. On the ED call in worksheet it states that there has been problems while at [facility] controlling his blood sugars and his BSG was 266 this evening. He also has had chronic leg edema and he states that his leg pain has been worsening over the last few weeks. He also states that they found a DVT in his right leg last week. He is currently on 160mg of Lasix BID and says that fluid has been seeping from both of his legs and they are very painful. He denies any fever, chest pain, shortness of breath, cough, nausea, vomiting, diarrhea, or chills. Review of Systems See HPI for pertinent positives and negatives. A total of ten systems were reviewed and were otherwise negative. Past Medical/Surgical History Medical Problems: (1) Abdominal pain (2) CAD (coronary artery disease) (3) Chronic a-fib (4) Diabetes mellitus, type II (5) Dyslipidemia (6) Heart attack (7) History of pulmonary embolus (PE) (8) History of stroke (9) HTN (hypertension) (10) Intractable nausea and vomiting (11) Ischemic cardiomyopathy (12) Obstructive hydrocephalus (13) MERY (obstructive sleep apnea) (14) Pulmonary embolism (15) Stage 3 chronic kidney disease (16) Systolic CHF Surgical Problems: (1) History of cholecystectomy Family History No pertinent family history Social History Smoking Status: Never Smoker Drug Use: none Marital Status: Housing Status: unknown Occupation Status: retired Current/Historical Medications Scheduled Amlodipine Besylate (Amlodipine Besylate), 10 MG PO QAM Apixaban (Eliquis), 5 MG PO Q12 Aspirin (Aspirin Chewable), 81 MG PO QAM Atorvastatin (Lipitor), 40 MG PO QPM Bacitracin (Topical) (Bacitracin), 1 APPLN TOP HS Carvedilol (Coreg), 25 MG PO Q12 Furosemide (Lasix), 80 MG PO BID Insulin Aspart (Novolog Flexpen), UNITS SQ ACHS Insulin Aspart (Novolog Flexpen), 15 UNITS SQ TIDM Multiple Vitamins W/ Minerals (Theragran-M), 1 TAB PO QAM Pantoprazole (Protonix), 40 MG PO QPM Polyethylene Glycol 3350 (Miralax), 17 GM PO DAILY Sennosides-Docusate Sodium (Sennalax-S), 2 TABS PO HS Trazodone Hcl (Trazodone), 50 MG PO HS Ursodiol (Ursodiol), 1 CAP PO Q12 Venlafaxine Hcl (Venlafaxine Extended Rel), 75 MG PO HS Scheduled PRN Acetaminophen (Tylenol), 500 MG PO Q4 PRN for Pain or Fever Acetaminophen/Codeine (Tylenol W/Codeine #3), 1 TAB PO Q6 PRN for Pain Albuterol Hfa (Ventolin Hfa), 2 PUFFS INH Q6H PRN for Wheezing Bisacodyl (Dulcolax), 1 SUPP [place] Q24H PRN for no bm past 2 days Docusate Sodium (Docusate Sodium), 1 CAP PO BID PRN for Constipation Nitroglycerin (Nitrostat), 0.4 MG UT UD PRN for Chest Pain Ondansetron Hcl (Zofran), 8 MG PO Q8 PRN for Nausea Allergies Coded Allergies: Amoxicillin (Verified Allergy, Unknown, unknown, 12/07/16) Cephalosporins (Verified Allergy, Unknown, unknown, 12/07/16) Ciprofloxacin (Verified Allergy, Unknown, unknown, 12/07/16) Clindamycin (Verified Allergy, Unknown, unknown, 12/07/16) Iodinated Diagnostic Agents (Verified Allergy, Unknown, unknown, 12/07/16) Penicillins (Unverified Allergy, Unknown, unknown, 11/15/16) Uncoded Allergies: PERFLUTREN LIPID MICROSPHERES (Allergy, Unknown, unknown, 12/07/16) Physical Exam Vital Signs Date Time Temp Pulse Resp B/P Pulse Ox O2 Delivery O2 Flow Rate FiO2 01/10/17 18:05 62 12 118/80 93 Room Air 01/10/17 17:50 60 16 127/83 93 Room Air 01/10/17 16:27 62 16 126/67 93 Room Air 01/10/17 14:26 96 Room Air 01/10/17 14:18 63 01/10/17 14:15 61 18 129/75 96 Room Air Physical Exam GENERAL: Somnolent, morbidly obese, in no acute distress HENT: Normocephalic, atraumatic. Poor dentition missing multiple teeth. EYES: Normal conjunctiva. Sclera non-icteric. NECK: Supple. Trachea midline. RESPIRATORY: Decreased breath sounds CARDIAC: Irregularly irregular heart rate. No murmur, rub, or gallop ABDOMEN: Soft, non-distended. Epigastric tenderness. No rebound or guarding. No masses. RECTAL: Deferred. MUSCULOSKELETAL: Chest examination reveals no tenderness. AICD over left side of chest. The back is symmetrical on inspection without obvious abnormality. There is no CVA tenderness to palpation. LOWER EXTREMITIES: +4 pitting edema in the lower extremities, very erythematous and seeping fluids, laceration over lateral aspect of right leg below the knee. Very tender to touch. NEURO: Confused, somnolent SKIN: See above Medical Decision & Procedures Laboratory Results 01/10/17 15:28 Red Blood Count 3.02, Mean Corpuscular Volume 89.1, Mean Corpuscular Hemoglobin 28.5, Mean Corpuscular Hemoglobin Concent 32.0, Mean Platelet Volume 9.9, Neutrophils (%) (Auto) 77.3, Lymphocytes (%) (Auto) 11.6, Monocytes (%) (Auto) 6.2, Eosinophils (%) (Auto) 4.5, Basophils (%) (Auto) 0.3, Neutrophils # (Auto) 5.73, Lymphocytes # (Auto) 0.86, Monocytes # (Auto) 0.46, Eosinophils # (Auto) 0.33, Basophils # (Auto) 0.02 01/10/17 15:28 Test 01/10/17 14:25 01/10/17 15:28 01/10/17 15:34 01/10/17 16:22 Bedside Glucose 173 mg/dl (70-99) White Blood Count 7.41 K/uL (4.8-10.8) Red Blood Count 3.02 M/uL (4.7-6.1) Hemoglobin 8.6 g/dL (14.0-18.0) Hematocrit 26.9 % (42-52) Mean Corpuscular Volume 89.1 fL (80-100) Mean Corpuscular Hemoglobin 28.5 pg (25-34) Mean Corpuscular Hemoglobin Concent 32.0 g/dl (32-36) Platelet Count 149 K/uL (130-400) Mean Platelet Volume 9.9 fL (7.4-10.4) Neutrophils (%) (Auto) 77.3 % Lymphocytes (%) (Auto) 11.6 % Monocytes (%) (Auto) 6.2 % Eosinophils (%) (Auto) 4.5 % Basophils (%) (Auto) 0.3 % Neutrophils # (Auto) 5.73 K/uL (1.4-6.5) Lymphocytes # (Auto) 0.86 K/uL (1.2-3.4) Monocytes # (Auto) 0.46 K/uL (0.11-0.59) Eosinophils # (Auto) 0.33 K/uL (0-0.5) Basophils # (Auto) 0.02 K/uL (0-0.2) RDW Standard Deviation 54.4 fL (36.4-46.3) RDW Coefficient of Variation 16.7 % (11.5-14.5) Immature Granulocyte % (Auto) 0.1 % Immature Granulocyte # (Auto) 0.01 K/uL (0.00-0.02) Anisocytosis PRESENT Spherocytes 1+ Prothrombin Time 11.7 SECONDS (9.0-12.0) Prothromb Time International Ratio 1.1 (0.9-1.1) Activated Partial Thromboplast Time 31.0 SECONDS (21.0-31.0) Partial Thromboplastin Ratio 1.2 Anion Gap 6.0 mmol/L (3-11) Est Creatinine Clear Calc Drug Dose 55.4 ml/min Estimated GFR () 29.0 Estimated GFR (Non- 25.0 BUN/Creatinine Ratio 23.5 (10-20) Calcium Level 7.9 mg/dl (8.5-10.1) Magnesium Level 2.8 mg/dl (1.8-2.4) Total Bilirubin 0.7 mg/dl (0.2-1) Direct Bilirubin 0.2 mg/dl (0-0.2) Aspartate Amino Transf (AST/SGOT) 15 U/L (15-37) Alanine Aminotransferase (ALT/SGPT) 14 U/L (12-78) Alkaline Phosphatase 175 U/L (45-117) Total Creatine Kinase 134 U/L (39-308) Creatine Kinase MB 5.5 ng/ml (0.5-3.6) Creatine Kinase MB Ratio 4.1 (0-3.0) Troponin I < 0.015 ng/ml (0-0.045) Pro-B-Type Natriuretic Peptide 2807 pg/ml (0-900) Total Protein 7.1 gm/dl (6.4-8.2) Albumin 2.7 gm/dl (3.4-5.0) Lipase 58 U/L (73-393) Thyroid Stimulating Hormone (TSH) 3.870 uIu/ml (0.300-4.500) Bedside Lactic Acid Venous 0.70 mmol/L (0.90-1.70) Urine Color YELLOW Urine Appearance CLEAR (CLEAR) Urine pH 6.5 (4.5-7.5) Urine Specific [place] 1.012 (1.000-1.030) Urine Protein 2+ (NEG) Urine Glucose (UA) NEG (NEG) Urine Ketones NEG (NEG) Urine Occult Blood NEG (NEG) Urine Nitrite NEG (NEG) Urine Bilirubin NEG (NEG) Urine Urobilinogen NEG (NEG) Urine Leukocyte Esterase NEG (NEG) Urine WBC (Auto) 0 /hpf (0-5) Urine RBC (Auto) 0-4 /hpf (0-4) Urine Hyaline Casts (Auto) 1-5 /lpf (0-5) Urine Epithelial Cells (Auto) 0-5 /lpf (0-5) Urine Bacteria (Auto) NEG (NEG) Test 01/10/17 16:32 01/10/17 18:06 Arterial Blood pH 7.42 (7.35-7.45) Arterial Blood Partial Pressure CO2 44 mmHg (35-46) Arterial Blood Partial Pressure O2 80 mm/Hg (80-95) Arterial Blood HCO3 28 mmol/L (19-24) Arterial Blood Oxygen Saturation 94.1 % (90-95) Arterial Blood Base Excess 3.4 mEq/L (-9-1.8) Arterial Blood Gas Delivery ROOM AIR Mk Test POS (POS) Medical Decision Patient is a 56 year old male that presents with hypoglycemia and confusion - Differential Diagnosis: Hypoglycemia, Cellulitis, Pneumonia, Myocardial Infarction, UTI, PE, DVT, Stroke, Gastritis, Gastroenteritis, Infection, GI and other etiologies were considered Labs Ordered: CBC, PRP, Liver Profile, TSH, PT/PTT/INR, Mag, Lipase, CKMB, CPK, ProBNP, Troponin, UA Cath, Urine Culture, ABG, Lactic Acid Imaging: CT Head, CXR, ECG Placed Vivas Catheter due to confusion to collect urine - Drained 800 cc of urine in first hour Hgb 8.6 (12.5 on 12/12) - Type and Cross 2 Units of PRBC Cr/BUN - 2.7/63 --> Somewhat close to baseline Glucose improved to 152 Trop < 0.015 UA - no UTI findings identified Blood Gas - Elevated Bicarb, Normal pH CT Head - No acute findings CXR - Probably pulmonary vascular congestion CT Abdomen shows no acute findings Consulted [facility] hospitalist group and agreed to see patient for admission Impression Primary Impression: Confusion Additional Impressions: Hypoglycemia Anemia Chronic a-fib HTN (hypertension) Cellulitis Departure Information Dispostion Admitted as an inpatient Condition FAIR Referrals Roberta Xiao (PCP) Patient Instructions [facility] Problem Qualifiers Additional Impressions: Anemia Anemia type: unspecified type Qualified Codes: D64.9 - Anemia, unspecified
[2017-01-10 17:36] LABS: ANISOCYTOSIS PRESENT; COMPLETE YES; SPHEROCYTE 1+
--- NOTE | 2017-01-10 17:55 | DIAGNOSTIC IMAGING REPORT ---
CT SCAN OF THE ABDOMEN AND PELVIS WITHOUT IV CONTRAST CLINICAL HISTORY: Generalized abdominal pain. COMPARISON STUDY: Abdominal CT dated 12/07/2016. TECHNIQUE: CT scan of the abdomen and pelvis is performed from the lung bases to the proximal femora. Images are reviewed in the axial, sagittal, and coronal planes. IV contrast was not administered for this examination as per the referring clinician. Note that the examination was performed in significantly suboptimal fashion without oral and IV contrast. The Examination is also degraded by large body habitus, and by streak artifact from the body wall abutting the CT gantry. Automated dose control exposure was utilized. CT DOSE: 2557.69 mGy.cm FINDINGS: Lung bases: The heart is markedly enlarged and without pericardial effusion. Pacemaker leads are noted. There are small pleural effusions with dependent atelectasis. There is a tiny hiatal hernia. Liver: The unenhanced liver is enlarged, measuring 24 cm in length. The liver demonstrates diffusely diminished attenuation consistent with hepatic steatosis. There is mild central intrahepatic biliary ductal dilatation. Gallbladder: Surgically absent noting clips in the gallbladder fossa. Spleen: The spleen is enlarged, measuring 15.8 cm in length. Pancreas: There is near complete fatty atrophy of the pancreas which is grossly unremarkable. Adrenal glands: Unremarkable. Kidneys: The unenhanced kidneys demonstrate cortical atrophy and are without hydronephrosis. There are no renal calculi identified. A 1.7 cm exophytic cyst arises from the right upper pole. Abdominal vasculature: The abdominal aorta is normal in course and caliber noting moderate atherosclerotic calcification. 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 An IVC filter is present within the right inferior vena cava which is diminutive and likely chronically occluded. There is also likely chronic occlusion of the right iliac veins. There are caput medusae, with lower venous collaterals identified in the right groin and perineal region. Bowel: The small bowel and colon are normal in course and caliber. There is moderate colonic fecal retention. The appendix is well-visualized and normal. Peritoneum: There is no intraperitoneal free air or abdominal ascites. Lymphadenopathy: There are enlarged retroperitoneal and right iliac chain lymph nodes. Retroperitoneal lymph nodes measure up to 1.5 cm in short axis. Right iliac chain nodes measure up to 1.7 cm in short axis. Pelvic viscera: The prostate gland is enlarged and heterogeneous, measuring 5.7 cm in diameter. The bladder is decompressed around a Vivas catheter and not well evaluated. Foci of intraluminal gas are likely related to instrumentation. Skeletal structures: The skeletal structures are osteopenic. Mild lumbosacral spondylosis is observed. Degenerative change is seen in the hips. No lytic or blastic lesions are seen. Soft tissues: There is body wall edema. IMPRESSION: 1. Significantly suboptimal examination without oral and IV contrast. 2. There are no acute infectious or inflammatory findings identified in the abdomen or pelvis. 3. Small pleural effusions and body wall edema. 4. Moderate constipation. 5. Hepatomegaly and hepatic steatosis. 6. Splenomegaly. 7. Marked cardiomegaly. 8. Numerous mildly enlarged retroperitoneal and iliac chain lymph nodes are identified. These are similar in appearance to the 12/07/2016 examination. These are nonspecific and may be a reactive basis. Clinical correlation will be required. 9. Additional findings as above. Electronically signed by: Neville Izquierdo M.D. 01/10/2017 5:54 PM Dictated Date/Time: 01/10/2017 5:46 PM
--- NOTE | 2017-01-10 18:31 | History and Physical ---
History & Physical Date & Time of Service: January 10, 2017 at 18:31 Chief Complaint: AMS Primary Care Physician: Roberta Xiao History of Present Illness Source: patient This is a Morbidly obese gentleman with multiple co morbidities-chronic bilat lower ext lymphedema, chronic lower ext non healing wound , HTN, Type 2 DM , recently diagnosed with Rt lower ext DVT , sent form [facility] for confusion , hypoglycemia BSG 40 , worsening pain and drainage form lower ext wound In the ED BSG was 170 , had bilateral lower ext seeping wound with serous / foul smelling drainage no report of fever, chest pain, shortness of breath, cough, nausea, vomiting, diarrhea, or chills. Past Medical/Surgical History Medical Problems: (1) CAD (coronary artery disease) Status: Chronic (2) Chronic a-fib Status: Chronic (3) Diabetes mellitus, type II Status: Chronic (4) Dyslipidemia Status: Chronic (5) Heart attack Status: Resolved (6) History of pulmonary embolus (PE) Status: Chronic (7) History of stroke Status: Chronic (8) HTN (hypertension) Status: Chronic (9) Ischemic cardiomyopathy Status: Resolved (10) Obstructive hydrocephalus Status: Chronic (11) MERY (obstructive sleep apnea) Status: Chronic (12) Pulmonary embolism Status: Resolved (13) Stage 3 chronic kidney disease Status: Chronic (14) Systolic CHF Status: Chronic Surgical Problems: (1) History of cholecystectomy Permanent Comment: 08/23/16 Status: Resolved Family History No pertinent family history Social History Smoking Status: Never Smoker Drug Use: none Marital Status: Housing status: other Occupational Status: retired Immunizations History of Influenza Vaccine: Unknown Multi-Drug Resistant 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 Allergies Coded Allergies: Amoxicillin (Verified Allergy, Unknown, unknown, 12/07/16) Cephalosporins (Verified Allergy, Unknown, unknown, 12/07/16) Ciprofloxacin (Verified Allergy, Unknown, unknown, 12/07/16) Clindamycin (Verified Allergy, Unknown, unknown, 12/07/16) Iodinated Diagnostic Agents (Verified Allergy, Unknown, unknown, 12/07/16) Penicillins (Unverified Allergy, Unknown, unknown, 11/15/16) Perflutren (Verified Allergy, Unknown, PERFLUTREN LIPID MICROSPHERES, 01/10) Home Medications Scheduled Amlodipine Besylate (Amlodipine Besylate), 10 MG PO QAM Apixaban (Eliquis), 5 MG PO Q12 Aspirin (Aspirin Chewable), 81 MG PO QAM Atorvastatin (Lipitor), 40 MG PO QPM Bacitracin (Topical) (Bacitracin), 1 APPLN TOP HS Carvedilol (Coreg), 25 MG PO Q12 Furosemide (Lasix), 80 MG PO BID Insulin Aspart (Novolog Flexpen), UNITS SQ ACHS Insulin Aspart (Novolog Flexpen), 15 UNITS SQ TIDM Multiple Vitamins W/ Minerals (Theragran-M), 1 TAB PO QAM Pantoprazole (Protonix), 40 MG PO QPM Polyethylene Glycol 3350 (Miralax), 17 GM PO DAILY Sennosides-Docusate Sodium (Sennalax-S), 2 TABS PO HS Trazodone Hcl (Trazodone), 50 MG PO HS Ursodiol (Ursodiol), 1 CAP PO Q12 Venlafaxine Hcl (Venlafaxine Extended Rel), 75 MG PO HS Scheduled PRN Acetaminophen (Tylenol), 500 MG PO Q4 PRN for Pain or Fever Acetaminophen/Codeine (Tylenol W/Codeine #3), 1 TAB PO Q6 PRN for Pain Albuterol Hfa (Ventolin Hfa), 2 PUFFS INH Q6H PRN for Wheezing Bisacodyl (Dulcolax), 1 SUPP [place] Q24H PRN for no bm past 2 days Docusate Sodium (Docusate Sodium), 1 CAP PO BID PRN for Constipation Nitroglycerin (Nitrostat), 0.4 MG UT UD PRN for Chest Pain Ondansetron Hcl (Zofran), 8 MG PO Q8 PRN for Nausea Review of Systems review of system minimum as pt was found to be lethargic Musculoskeletal: + problem reported (lower ext pain /increase drainage /) Neurologic: + problem reported (confusion ) Endocrine: + problem reported (low blood sugar ) Physical Exam Vital Signs Date Time Temp Pulse Resp B/P Pulse Ox O2 Delivery O2 Flow Rate FiO2 01/10/17 18:16 62 01/10/17 18:05 62 12 118/80 93 Room Air 01/10/17 17:50 60 16 127/83 93 Room Air 01/10/17 16:27 62 16 126/67 93 Room Air 01/10/17 14:26 96 Room Air 01/10/17 14:18 63 01/10/17 14:15 61 18 129/75 96 Room Air General Appearance: no apparent distress Eyes: sclerae normal Respiratory/Chest: + pertinent finding (diminished ) Cardiovascular: regular rate, rhythm Abdomen/GI: non tender, soft, + pertinent finding (obese ) Extremities/Musculoskelatal: + pertinent finding (bilateral extensive lymphedema ,with serosanginous drainage ) Neurologic/Psych: + disoriented, + pertinent finding (lethergic , opens up eyes to voice ) Diagnostics Laboratory Results Results Past 24 Hours Test 01/10/17 14:25 01/10/17 15:28 01/10/17 15:34 01/10/17 16:22 Range/Units Bedside Glucose 173 70-99 mg/dl White Blood Count 7.41 4.8-10.8 K/uL Red Blood Count 3.02 4.7-6.1 M/uL Hemoglobin 8.6 14.0-18.0 g/dL Hematocrit 26.9 42-52 % Mean Corpuscular Volume 89.1 80-100 fL Mean Corpuscular Hemoglobin 28.5 25-34 pg Mean Corpuscular Hemoglobin Concent 32.0 32-36 g/dl Platelet Count 149 130-400 K/uL Mean Platelet Volume 9.9 7.4-10.4 fL Neutrophils (%) (Auto) 77.3 % Lymphocytes (%) (Auto) 11.6 % Monocytes (%) (Auto) 6.2 % Eosinophils (%) (Auto) 4.5 % Basophils (%) (Auto) 0.3 % Neutrophils # (Auto) 5.73 1.4-6.5 K/uL Lymphocytes # (Auto) 0.86 1.2-3.4 K/uL Monocytes # (Auto) 0.46 0.11-0.59 K/uL Eosinophils # (Auto) 0.33 0-0.5 K/uL Basophils # (Auto) 0.02 0-0.2 K/uL RDW Standard Deviation 54.4 36.4-46.3 fL RDW Coefficient of Variation 16.7 11.5-14.5 % Immature Granulocyte % (Auto) 0.1 % Immature Granulocyte # (Auto) 0.01 0.00-0.02 K/uL Anisocytosis PRESENT Spherocytes 1+ Prothrombin Time 11.7 9.0-12.0 SECONDS Prothromb Time International Ratio 1.1 0.9-1.1 Activated Partial Thromboplast Time 31.0 21.0-31.0 SECONDS Partial Thromboplastin Ratio 1.2 Sodium Level 140 136-145 mmol/L Potassium Level 4.5 3.5-5.1 mmol/L Chloride Level 104 98-107 mmol/L Carbon Dioxide Level 30 21-32 mmol/L Anion Gap 6.0 3-11 mmol/L Blood Urea Nitrogen 63 7-18 mg/dl Creatinine 2.70 0.60-1.40 mg/dl Est Creatinine Clear Calc Drug Dose 55.4 ml/min Estimated GFR () 29.0 Estimated GFR (Non- 25.0 BUN/Creatinine Ratio 23.5 10-20 Random Glucose 153 70-99 mg/dl Calcium Level 7.9 8.5-10.1 mg/dl Magnesium Level 2.8 1.8-2.4 mg/dl Total Bilirubin 0.7 0.2-1 mg/dl Direct Bilirubin 0.2 0-0.2 mg/dl Aspartate Amino Transf (AST/SGOT) 15 15-37 U/L Alanine Aminotransferase (ALT/SGPT) 14 12-78 U/L Alkaline Phosphatase 175 45-117 U/L Total Creatine Kinase 134 39-308 U/L Creatine Kinase MB 5.5 0.5-3.6 ng/ml Creatine Kinase MB Ratio 4.1 0-3.0 Troponin I < 0.015 0-0.045 ng/ml Pro-B-Type Natriuretic Peptide 2807 0-900 pg/ml Total Protein 7.1 6.4-8.2 gm/dl Albumin 2.7 3.4-5.0 gm/dl Lipase 58 73-393 U/L Thyroid Stimulating Hormone (TSH) 3.870 0.300-4.500 uIu/ml Bedside Lactic Acid Venous 0.70 0.90-1.70 mmol/L Urine Color YELLOW Urine Appearance CLEAR CLEAR Urine pH 6.5 4.5-7.5 Urine Specific [place] 1.012 1.000-1.030 Urine Protein 2+ NEG Urine Glucose (UA) NEG NEG Urine Ketones NEG NEG Urine Occult Blood NEG NEG Urine Nitrite NEG NEG Urine Bilirubin NEG NEG Urine Urobilinogen NEG NEG Urine Leukocyte Esterase NEG NEG Urine WBC (Auto) 0 0-5 /hpf Urine RBC (Auto) 0-4 0-4 /hpf Urine Hyaline Casts (Auto) 1-5 0-5 /lpf Urine Epithelial Cells (Auto) 0-5 0-5 /lpf Urine Bacteria (Auto) NEG NEG Test 01/10/17 16:32 01/10/17 18:06 Range/Units Arterial Blood pH 7.42 7.35-7.45 Arterial Blood Partial Pressure CO2 44 35-46 mmHg Arterial Blood Partial Pressure O2 80 80-95 mm/Hg Arterial Blood HCO3 28 19-24 mmol/L Arterial Blood Oxygen Saturation 94.1 90-95 % Arterial Blood Base Excess 3.4 -9-1.8 mEq/L Arterial Blood Gas Delivery ROOM AIR Mk Test POS POS Microbiology Results 01/10/17 Blood Culture, Received Pending 01/10/17 Blood Culture, Received Pending 01/10/17 Urine Culture, Received Pending Diagnostic Radiology CHEST XRAY : IMPRESSION: 1. Technically limited study. 2. Cardiomegaly and probable mild pulmonary vascular congestion 3. Equivocal right apical airspace opacities 4. A follow-up PA and lateral study is recommended. CT OF BRAIN WITHOUT IV CONTRAST : IMPRESSION: There is no hemorrhage, mass effect, or evidence of acute territorial ischemia by CT criteria. CT ABDOMEN/PELVIS WITH OUT IV OR ORAL CONTRAST IMPRESSION: 1. Significantly suboptimal examination without oral and IV contrast. 2. There are no acute infectious or inflammatory findings identified in the abdomen or pelvis. 3. Small pleural effusions and body wall edema. 4. Moderate constipation. 5. Hepatomegaly and hepatic steatosis. 6. Splenomegaly. 7. Marked cardiomegaly. 8. Numerous mildly enlarged retroperitoneal and iliac chain lymph nodes are identified. These are similar in appearance to the 12/07/2016 examination. These are nonspecific and may be a reactive basis. Clinical correlation will be required. 9. Additional findings as above. Impression Assessment and Plan LOWER EXT CELLULITIS : chronic bilat lower ext edema , wound previous wound culture -staph aureus pt is allergic to multiple Antibiotics will start empirically on IV Vancomycin wound care eval requested ' pt follows at with Wound clinic TYPE 2 DM : Presents with hypoglycemic episode possible due to above Hb A1c 01/07/17 7.6 insulin [facility] pharmacy consulted for glycemic management CONFUSION /CHANGED MENTAL STATUS /METABOLIC ENCEPHALOPATHY due to combination of infection /hypoglycemia monitor clinically CT head negative for acute change ANEMIA ; Hb 10.2 ( on 01/03/17 ) to 8.6 today check stool for heme occult Fe study Typed and crossed PRBC transfuse for acute drop in H&H or symptom ( hemodynamic instability ) CHRONIC ISCHEMIC CHF WITH SYSTOLIC DYSFUNCTION : EF 45-50 % S/P AICD cont Lasix DVT PROPHYLAXIS : recent hx of DVT on lower ext on Eliquis FULL CODE DISPOSITION ; return to [facility] when medically stable Level of Care Telemetry Resuscitation Status FULL RESUSCITATION VTE Prophylaxis Given or contraindicated: Other Anticoagulation (eliquis )
[2017-01-10] MEDS ORDERED: ALUMINUM/MAGNESIUM/SIMETH (MAALOX MAX) 30 ML UDC PO PRN (18:45)
[2017-01-10] MEDS ORDERED: ACETAMINOPHEN 325 MG TAB PO PRN (18:45)
[2017-01-10] MEDS ORDERED: GLUCAGON FOR INJ 1 MG VIAL SQ PRN (18:45)
[2017-01-10] MEDS ORDERED: GLUCOSE 40% GEL 15 GM TUBE PO PRN (18:45)
[2017-01-10] MEDS ORDERED: GLUCOSE 10 TABS/TUBE PO PRN (18:45)
[2017-01-10] MEDS ORDERED: DEXTROSE 50% 50 ML SYR IV PRN (18:45)
[2017-01-10] MEDS ORDERED: VANCOMYCIN INJ 1,000 MG in SODIUM CHLORIDE 0.9% 250ML 250 ML IV STA (18:46)
[2017-01-10] MEDS ORDERED: PHARMACY GLYCEMIC MGMT CONSULT SCH (18:59)
[2017-01-10] MEDS ORDERED: VANCOMYCIN INJ 2,800 MG in SODIUM CHLORIDE 0.9% 500ML 500 ML IV SCH (19:00)
[2017-01-10] MEDS ORDERED: VANCOMYCIN CONSULT ACTIVE PRN (19:00)
[2017-01-10 19:15] VITALS: Ht 193 cm; Wt 194.0 kg
[2017-01-10 20:00] VITALS: BP 169/72; PULSE 62; TEMP 36.6; O2SAT 92
[2017-01-10] MEDS: INSULIN ASPART 100 UNITS/ML 3 ML PEN SC SCH (20:26)
[2017-01-10] MEDS ORDERED: VANCOMYCIN INJ 1,000 MG in SODIUM CHLORIDE 0.9% 250ML 250 ML IV SCH (21:00)
[2017-01-10] MEDS: ACETAMINOPHEN/CODEINE 300/30MG TAB PO PRN (21:04)
--- NOTE | 2017-01-10 21:06 | EMERGENCY ROOM VISIT NOTE ---
History Report prepared by Jesus: Nahomy Riley Under the Supervision of: Dr. Donovan Mayes M.D. First contact with patient: 14:43 Chief Complaint: HYPOGLYCEMIA Stated Complaint: AMS Nursing Triage Summary: pt presents via BLS Per BLS [facility] staff patient had a hypoglycemic episode with glucagon treatment he has been increasingly agitated in ambulance ride BSG was 199 He has bilateral leg wounds that are currently wheepy He had a 17 LB weight gain in the past week and a half History of Present Illness The patient is a 56 year old male who presents to the Emergency Room with complaints of persistent hypoglycemia that began today prior to arrival. Per nursing notes the patient arrives via BLS from [facility]. The patient was found to have a blood glucose in the 40s this morning upon waking. Nursing notes report that the staff at [facility] had a difficult time arousing the patient from bed. The patient notes increased leg pain and swelling over the last several weeks and additionally notes that he was found to have a DVT on ultrasound 1 week ago. He states that he was placed on Coumadin. The patient notes abdominal pain today. He denies any headache or chest pain. The history is limited secondary to the patient's altered mental status Source of History: patient, nursing staff History Limited By: AMS Onset: prior to arrival Position: other (global) Quality: other (hypoglycemia) Timing: other (persistent) Associated Symptoms: + abdominal pain, No chest pain, No headache Review of Systems See HPI and ROS are limited secondary to the patient's altered mental status. Past Medical & Surgical Medical Problems: (1) Abdominal pain (2) CAD (coronary artery disease) (3) Chronic a-fib (4) Diabetes mellitus, type II (5) Dyslipidemia (6) Heart attack (7) History of pulmonary embolus (PE) (8) History of stroke (9) HTN (hypertension) (10) Intractable nausea and vomiting (11) Ischemic cardiomyopathy (12) Obstructive hydrocephalus (13) MERY (obstructive sleep apnea) (14) Pulmonary embolism (15) Stage 3 chronic kidney disease (16) Systolic CHF Surgical Problems: (1) History of cholecystectomy Family History No pertinent family history Social History Smoking Status: Never Smoker Drug Use: none Marital Status: Housing Status: unknown Occupation Status: retired Current/Historical Medications Scheduled Amlodipine Besylate (Amlodipine Besylate), 10 MG PO QAM Apixaban (Eliquis), 5 MG PO Q12 Aspirin (Aspirin Chewable), 81 MG PO QAM Atorvastatin (Lipitor), 40 MG PO QPM Bacitracin (Topical) (Bacitracin), 1 APPLN TOP HS Carvedilol (Coreg), 25 MG PO Q12 Furosemide (Lasix), 80 MG PO BID Insulin Aspart (Novolog Flexpen), UNITS SQ ACHS Insulin Aspart (Novolog Flexpen), 15 UNITS SQ TIDM Multiple Vitamins W/ Minerals (Theragran-M), 1 TAB PO QAM Pantoprazole (Protonix), 40 MG PO QPM Polyethylene Glycol 3350 (Miralax), 17 GM PO DAILY Sennosides-Docusate Sodium (Sennalax-S), 2 TABS PO HS Trazodone Hcl (Trazodone), 50 MG PO HS Ursodiol (Ursodiol), 1 CAP PO Q12 Venlafaxine Hcl (Venlafaxine Extended Rel), 75 MG PO HS Scheduled PRN Acetaminophen (Tylenol), 500 MG PO Q4 PRN for Pain or Fever Acetaminophen/Codeine (Tylenol W/Codeine #3), 1 TAB PO Q6 PRN for Pain Albuterol Hfa (Ventolin Hfa), 2 PUFFS INH Q6H PRN for Wheezing Bisacodyl (Dulcolax), 1 SUPP ND Q24H PRN for no bm past 2 days Docusate Sodium (Docusate Sodium), 1 CAP PO BID PRN for Constipation Nitroglycerin (Nitrostat), 0.4 MG UT UD PRN for Chest Pain Ondansetron Hcl (Zofran), 8 MG PO Q8 PRN for Nausea Allergies Coded Allergies: Amoxicillin (Verified Allergy, Unknown, unknown, 12/07/16) Cephalosporins (Verified Allergy, Unknown, unknown, 12/07/16) Ciprofloxacin (Verified Allergy, Unknown, unknown, 12/07/16) Clindamycin (Verified Allergy, Unknown, unknown, 12/07/16) Iodinated Diagnostic Agents (Verified Allergy, Unknown, unknown, 12/07/16) Penicillins (Unverified Allergy, Unknown, unknown, 11/15/16) Perflutren (Verified Allergy, Unknown, PERFLUTREN LIPID MICROSPHERES, 01/10) Physical Exam Vital Signs Date Time Temp Pulse Resp B/P Pulse Ox O2 Delivery O2 Flow Rate FiO2 01/10/17 18:33 62 14 134/84 94 Room Air 01/10/17 18:16 62 01/10/17 18:05 62 12 118/80 93 Room Air 01/10/17 17:50 60 16 127/83 93 Room Air 01/10/17 16:27 62 16 126/67 93 Room Air 01/10/17 14:26 96 Room Air 01/10/17 14:18 63 01/10/17 14:15 61 18 129/75 96 Room Air Physical Exam GENERAL: Awake, sleepy, but arousable. HENT: Normocephalic, atraumatic. Oropharynx unremarkable. EYES: Pale conjunctiva. Sclera non-icteric. NECK: Supple. No nuchal rigidity. FROM. No JVD. RESPIRATORY: Diminshed breath sounds. CARDIAC: Regular rate, normal rhythm. Extremities warm and well perfused. Pulses equal. ABDOMEN: Mild diffuse abdominal tenderness. Soft, non-distended. No rebound or guarding. No masses. RECTAL: Deferred. MUSCULOSKELETAL: Chest examination reveals no tenderness. No joint edema. LOWER EXTREMITIES: 4+ lower extremity edema, brawny discoloration to the lower extremities, skin tear on right lateral calf. Calves are equal size bilaterally and non-tender. NEURO: Normal sensorium. No sensory or motor deficits noted. SKIN: No rash or jaundice noted. Medical Decision & Procedures ER Provider Diagnostic Interpretation: Radiology results as stated below per my review and radiologist interpretation: CT SCAN OF THE BRAIN WITHOUT IV CONTRAST CLINICAL HISTORY: Generalized weakness. COMPARISON STUDY: CT of the brain dated 12/09/2016. TECHNIQUE: Unenhanced axial CT scan of the brain is performed from the vertex to the skull base. CT DOSE: 906.34 mGycm FINDINGS: Brain parenchyma: There are age-related involutional changes noting [id number] patchy subcortical and periventricular microangiopathic change. Small chronic lacunar infarcts are identified in the cerebellar hemispheres and the left thalamus. There is no hemorrhage, mass effect, or evidence of acute territorial ischemia by CT criteria. Valenzuela-white matter is preserved. No extra-axial fluid collection is seen. Ventricles, sulci, cisterns: Prominent secondary to involutional change. Intracranial vasculature: There is atherosclerotic calcification of the cavernous carotid and vertebral arteries. Calvarium: Unremarkable. Sinuses and mastoids: The visualized paranasal sinuses are clear. The mastoid air cells are well pneumatized. Orbits: The bony orbits are grossly intact. IMPRESSION: There is no hemorrhage, mass effect, or evidence of acute territorial ischemia by CT criteria. Electronically signed by: Neville Izquierdo M.D. 01/10/2017 4:08 PM Dictated Date/Time: 01/10/2017 4:06 PM CHEST ONE VIEW PORTABLE CLINICAL HISTORY: Weakness COMPARISON STUDY: 11/15/2016 FINDINGS: The heart is enlarged. There is a left subclavian dual-chamber central venous pacemaker present. The examination is limited from a technical standpoint in part due to the patient's large body habitus. There are suspected right apical airspace opacities. Mild vascular prominence. A follow-up PA and lateral study is recommended. IMPRESSION: 1. Technically limited study. 2. Cardiomegaly and probable mild pulmonary vascular congestion 3. Equivocal right apical airspace opacities 4. A follow-up PA and lateral study is recommended. Electronically signed by: Richard Byrd M.D. 01/10/2017 3:51 PM Dictated Date/Time: 01/10/2017 3:[address] SCAN OF THE ABDOMEN AND PELVIS WITHOUT IV CONTRAST CLINICAL HISTORY: Generalized abdominal pain. COMPARISON STUDY: Abdominal CT dated 12/07/2016. TECHNIQUE: CT scan of the abdomen and pelvis is performed from the lung bases to the proximal femora. Images are reviewed in the axial, sagittal, and coronal planes. IV contrast was not administered for this examination as per the referring clinician. Note that the examination was performed in significantly suboptimal fashion without oral and IV contrast. The Examination is also degraded by large body habitus, and by streak artifact from the body wall abutting the CT gantry. Automated dose control exposure was utilized. CT DOSE: 2557.69 mGy.cm FINDINGS: Lung bases: The heart is markedly enlarged and without pericardial effusion. Pacemaker leads are noted. There are small pleural effusions with dependent atelectasis. There is a tiny hiatal hernia. Liver: The unenhanced liver is enlarged, measuring 24 cm in length. The liver demonstrates diffusely diminished attenuation consistent with hepatic steatosis. There is mild central intrahepatic biliary ductal dilatation. Gallbladder: Surgically absent noting clips in the gallbladder fossa. Spleen: The spleen is enlarged, measuring 15.8 cm in length. Pancreas: There is near complete fatty atrophy of the pancreas which is grossly unremarkable. Adrenal glands: Unremarkable. Kidneys: The unenhanced kidneys demonstrate cortical atrophy and are without hydronephrosis. There are no renal calculi identified. A 1.7 cm exophytic cyst arises from the right upper pole. Abdominal vasculature: The abdominal aorta is normal in course and caliber noting moderate atherosclerotic calcification. 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 An IVC filter is present within the right inferior vena cava which is diminutive and likely chronically occluded. There is also likely chronic occlusion of the right iliac veins. There are caput medusae, with lower venous collaterals identified in the right groin and perineal region. Bowel: The small bowel and colon are normal in course and caliber. There is moderate colonic fecal retention. The appendix is well-visualized and normal. Peritoneum: There is no intraperitoneal free air or abdominal ascites. Lymphadenopathy: There are enlarged retroperitoneal and right iliac chain lymph nodes. Retroperitoneal lymph nodes measure up to 1.5 cm in short axis. Right iliac chain nodes measure up to 1.7 cm in short axis. Pelvic viscera: The prostate gland is enlarged and heterogeneous, measuring 5.7 cm in diameter. The bladder is decompressed around a Vivas catheter and not well evaluated. Foci of intraluminal gas are likely related to instrumentation. Skeletal structures: The skeletal structures are osteopenic. Mild lumbosacral spondylosis is observed. Degenerative change is seen in the hips. No lytic or blastic lesions are seen. Soft tissues: There is body wall edema. IMPRESSION: 1. Significantly suboptimal examination without oral and IV contrast. 2. There are no acute infectious or inflammatory findings identified in the abdomen or pelvis. 3. Small pleural effusions and body wall edema. 4. Moderate constipation. 5. Hepatomegaly and hepatic steatosis. 6. Splenomegaly. 7. Marked cardiomegaly. 8. Numerous mildly enlarged retroperitoneal and iliac chain lymph nodes are identified. These are similar in appearance to the 12/07/2016 examination. These are nonspecific and may be a reactive basis. Clinical correlation will be required. 9. Additional findings as above. Electronically signed by: Neville Izquierdo M.D. 01/10/2017 5:54 PM Dictated Date/Time: 01/10/2017 5:46 PM Laboratory Results 01/10/17 15:28 Red Blood Count 3.02, Mean Corpuscular Volume 89.1, Mean Corpuscular Hemoglobin 28.5, Mean Corpuscular Hemoglobin Concent 32.0, Mean Platelet Volume 9.9, Neutrophils (%) (Auto) 77.3, Lymphocytes (%) (Auto) 11.6, Monocytes (%) (Auto) 6.2, Eosinophils (%) (Auto) 4.5, Basophils (%) (Auto) 0.3, Neutrophils # (Auto) 5.73, Lymphocytes # (Auto) 0.86, Monocytes # (Auto) 0.46, Eosinophils # (Auto) 0.33, Basophils # (Auto) 0.02 01/10/17 15:28 Test 01/10/17 15:28 01/10/17 15:34 01/10/17 16:22 01/10/17 16:32 White Blood Count 7.41 K/uL (4.8-10.8) Red Blood Count 3.02 M/uL (4.7-6.1) Hemoglobin 8.6 g/dL (14.0-18.0) Hematocrit 26.9 % (42-52) Mean Corpuscular Volume 89.1 fL (80-100) Mean Corpuscular Hemoglobin 28.5 pg (25-34) Mean Corpuscular Hemoglobin Concent 32.0 g/dl (32-36) Platelet Count 149 K/uL (130-400) Mean Platelet Volume 9.9 fL (7.4-10.4) Neutrophils (%) (Auto) 77.3 % Lymphocytes (%) (Auto) 11.6 % Monocytes (%) (Auto) 6.2 % Eosinophils (%) (Auto) 4.5 % Basophils (%) (Auto) 0.3 % Neutrophils # (Auto) 5.73 K/uL (1.4-6.5) Lymphocytes # (Auto) 0.86 K/uL (1.2-3.4) Monocytes # (Auto) 0.46 K/uL (0.11-0.59) Eosinophils # (Auto) 0.33 K/uL (0-0.5) Basophils # (Auto) 0.02 K/uL (0-0.2) RDW Standard Deviation 54.4 fL (36.4-46.3) RDW Coefficient of Variation 16.7 % (11.5-14.5) Immature Granulocyte % (Auto) 0.1 % Immature Granulocyte # (Auto) 0.01 K/uL (0.00-0.02) Anisocytosis PRESENT Spherocytes 1+ Prothrombin Time 11.7 SECONDS (9.0-12.0) Prothromb Time International Ratio 1.1 (0.9-1.1) Activated Partial Thromboplast Time 31.0 SECONDS (21.0-31.0) Partial Thromboplastin Ratio 1.2 Anion Gap 6.0 mmol/L (3-11) Est Creatinine Clear Calc Drug Dose 55.4 ml/min Estimated GFR () 29.0 Estimated GFR (Non- 25.0 BUN/Creatinine Ratio 23.5 (10-20) Calcium Level 7.9 mg/dl (8.5-10.1) Magnesium Level 2.8 mg/dl (1.8-2.4) Total Bilirubin 0.7 mg/dl (0.2-1) Direct Bilirubin 0.2 mg/dl (0-0.2) Aspartate Amino Transf (AST/SGOT) 15 U/L (15-37) Alanine Aminotransferase (ALT/SGPT) 14 U/L (12-78) Alkaline Phosphatase 175 U/L (45-117) Total Creatine Kinase 134 U/L (39-308) Creatine Kinase MB 5.5 ng/ml (0.5-3.6) Creatine Kinase MB Ratio 4.1 (0-3.0) Troponin I < 0.015 ng/ml (0-0.045) Pro-B-Type Natriuretic Peptide 2807 pg/ml (0-900) Total Protein 7.1 gm/dl (6.4-8.2) Albumin 2.7 gm/dl (3.4-5.0) Lipase 58 U/L (73-393) Thyroid Stimulating Hormone (TSH) 3.870 uIu/ml (0.300-4.500) Bedside Lactic Acid Venous 0.70 mmol/L (0.90-1.70) Urine Color YELLOW Urine Appearance CLEAR (CLEAR) Urine pH 6.5 (4.5-7.5) Urine Specific [place] 1.012 (1.000-1.030) Urine Protein 2+ (NEG) Urine Glucose (UA) NEG (NEG) Urine Ketones NEG (NEG) Urine Occult Blood NEG (NEG) Urine Nitrite NEG (NEG) Urine Bilirubin NEG (NEG) Urine Urobilinogen NEG (NEG) Urine Leukocyte Esterase NEG (NEG) Urine WBC (Auto) 0 /hpf (0-5) Urine RBC (Auto) 0-4 /hpf (0-4) Urine Hyaline Casts (Auto) 1-5 /lpf (0-5) Urine Epithelial Cells (Auto) 0-5 /lpf (0-5) Urine Bacteria (Auto) NEG (NEG) Arterial Blood pH 7.42 (7.35-7.45) Arterial Blood Partial Pressure CO2 44 mmHg (35-46) Arterial Blood Partial Pressure O2 80 mm/Hg (80-95) Arterial Blood HCO3 28 mmol/L (19-24) Arterial Blood Oxygen Saturation 94.1 % (90-95) Arterial Blood Base Excess 3.4 mEq/L (-9-1.8) Arterial Blood Gas Delivery ROOM AIR Mk Test POS (POS) Laboratory results reviewed by me ECG Indication: altered mental status Rate (beats per minute): 61 Rhythm: other (paced rhythm) Findings: no acute ischemic change, no ectopy ED Course 1447: The patient was evaluated in room A12A. A complete history and physical exam was performed by the residential support worker. 165: The patient was evaluated in room A12A. A complete history and physical exam was performed. 180: The residential support worker discussed the patients case with Mauricio Bardales. She is going to evaluate the patient for further treatment. 1811: The residential support worker reevaluated the patient and he is stable. The residential support worker discussed the exam findings with the patient and discussed the treatment plan. The patient verbalized complete understanding and agreement. The patient will be evaluated for further treatment. Medical Decision Medication Reconciliation: I attest that I have personally reviewed the patient' s current medication list Prior records/ancillary studies reviewed and summarized above. Nursing notes reviewed and agree them. The patient's history was concerning for altered mental status. Differential diagnosis: Etiologies such as infection, hypoglycemia, electrolyte abnormalities, cardiac sources, intracerebral event, toxicologic, neurologic, as well as others were entertained. Physical examination: As above. The patient denied any headache, chest pain, or difficulty breathing. He does note some mild abdominal pain but is nonspecific. The patient has significant lower extremity edema. ER treatment provided: IV Lock Monitoring On reassessment the patient was stable. Diagnostics interpretation by me: ECG: Nonischemic The labs revealed a moderate anemia on CBC but no leukocytosis. Lactate was negative. The patient's BNP was mildly elevated. Cardiac markers pending. Urinalysis unremarkable. Electrolytes unremarkable. Ammonia level ordered but is pending. ABG is unremarkable. Imaging studies: X-ray and CT scans as above. The patient is sleepy but arousable quite easily. He has minimal complaints. He is not currently hypoglycemic. Diagnostic testing to this point has not yielded the exact etiology. His ammonia level is pending at the time of admission. This will need to be followed. The patient will need further management in the hospital. The patient was seen and examined with Dr. Willis, resident physician. We discussed the case and treatments ordered, reviewed the results, and determine the disposition. Please refer to the resident's note for additional details. I have been directly involved with the management and disposition as well as independently evaluated the patient as documented in this note. Consultation: A consultation was placed with the hospitalist. The case was discussed and diagnostics were reviewed. The patient was evaluated in the ER for further treatment. The chart was completed utilizing [employer] Speech voice recognition software. Grammatical errors, random word insertions, pronoun errors, and incomplete sentences are an occasional consequence of this system due to software limitations, ambient noise, and hardware issues. Any formal questions or concerns about the content, text, or information contained within the body of this dictation should be directly addressed to the physician for clarification. Consults Time Called: 1804 Consulting Physician: Mauricio Bardales Returned Call: 1809 The residential support worker discussed the patients case with Mauricio Bardales. She is going to evaluate the patient for further treatment. Impression Primary Impression: Altered mental status Additional Impression: Anemia Scribe Attestation The scribe's documentation has been prepared under my direction and personally reviewed by me in its entirety. I confirm that the note above accurately reflects all work, treatment, procedures, and medical decision making performed by me. Departure Information Dispostion Being Evaluated By Hospitalist Referrals Roberta Xiao (PCP) Problem Qualifiers Additional Impression: Anemia Anemia type: unspecified type Qualified Codes: D64.9 - Anemia, unspecified
--- NOTE | 2017-01-10 21:24 | Pharmacy Progress Note ---
Pharmacy Abx Initial Consult Date of Service January 10, 2017. Pharmacy Dosing Scope Date of Consult: 01/10/17 Consultation requested by: Dr. Ramirez Pharmacy is consulted to initiate Vanco IV/PO dosing therapy, order appropriate labs and adjust drug dose/frequency. Subjective The patient is a 56 year old male admitted on January 10, 2017 at 18:46. Objective Height (Feet): 6 Height (Inches): 4.00 Weight (Kilograms): 194.000 Vital Signs (Past 12Hrs) Vital Signs Past 12 Hours Date Time Temp Pulse Resp B/P Pulse Ox O2 Delivery O2 Flow Rate FiO2 01/10/17 20:00 36.6 62 17 169/72 92 Room Air 01/10/17 19:31 141/84 95 Room Air 01/10/17 19:30 65 18 91 01/10/17 19:15 Room Air 01/10/17 18:33 62 14 134/84 94 Room Air 01/10/17 18:16 62 01/10/17 18:05 62 12 118/80 93 Room Air 01/10/17 17:50 60 16 127/83 93 Room Air 01/10/17 16:27 62 16 126/67 93 Room Air 01/10/17 14:26 96 Room Air 01/10/17 14:18 63 01/10/17 14:15 61 18 129/75 96 Room Air Lab Results (24Hrs) Test 01/10/17 14:25 01/10/17 15:28 01/10/17 15:34 01/10/17 16:22 Bedside Glucose 173 mg/dl (70-99) White Blood Count 7.41 K/uL (4.8-10.8) Red Blood Count 3.02 M/uL (4.7-6.1) Hemoglobin 8.6 g/dL (14.0-18.0) Hematocrit 26.9 % (42-52) Mean Corpuscular Volume 89.1 fL (80-100) Mean Corpuscular Hemoglobin 28.5 pg (25-34) Mean Corpuscular Hemoglobin Concent 32.0 g/dl (32-36) Platelet Count 149 K/uL (130-400) Mean Platelet Volume 9.9 fL (7.4-10.4) Neutrophils (%) (Auto) 77.3 % Lymphocytes (%) (Auto) 11.6 % Monocytes (%) (Auto) 6.2 % Eosinophils (%) (Auto) 4.5 % Basophils (%) (Auto) 0.3 % Neutrophils # (Auto) 5.73 K/uL (1.4-6.5) Lymphocytes # (Auto) 0.86 K/uL (1.2-3.4) Monocytes # (Auto) 0.46 K/uL (0.11-0.59) Eosinophils # (Auto) 0.33 K/uL (0-0.5) Basophils # (Auto) 0.02 K/uL (0-0.2) RDW Standard Deviation 54.4 fL (36.4-46.3) RDW Coefficient of Variation 16.7 % (11.5-14.5) Immature Granulocyte % (Auto) 0.1 % Immature Granulocyte # (Auto) 0.01 K/uL (0.00-0.02) Anisocytosis PRESENT Spherocytes 1+ Prothrombin Time 11.7 SECONDS (9.0-12.0) Prothromb Time International Ratio 1.1 (0.9-1.1) Activated Partial Thromboplast Time 31.0 SECONDS (21.0-31.0) Partial Thromboplastin Ratio 1.2 Sodium Level 140 mmol/L (136-145) Potassium Level 4.5 mmol/L (3.5-5.1) Chloride Level 104 mmol/L (98-107) Carbon Dioxide Level 30 mmol/L (21-32) Anion Gap 6.0 mmol/L (3-11) Blood Urea Nitrogen 63 mg/dl (7-18) Creatinine 2.70 mg/dl (0.60-1.40) Est Creatinine Clear Calc Drug Dose 55.4 ml/min Estimated GFR () 29.0 Estimated GFR (Non- 25.0 BUN/Creatinine Ratio 23.5 (10-20) Random Glucose 153 mg/dl (70-99) Calcium Level 7.9 mg/dl (8.5-10.1) Magnesium Level 2.8 mg/dl (1.8-2.4) Total Bilirubin 0.7 mg/dl (0.2-1) Direct Bilirubin 0.2 mg/dl (0-0.2) Aspartate Amino Transf (AST/SGOT) 15 U/L (15-37) Alanine Aminotransferase (ALT/SGPT) 14 U/L (12-78) Alkaline Phosphatase 175 U/L (45-117) Total Creatine Kinase 134 U/L (39-308) Creatine Kinase MB 5.5 ng/ml (0.5-3.6) Creatine Kinase MB Ratio 4.1 (0-3.0) Troponin I < 0.015 ng/ml (0-0.045) Pro-B-Type Natriuretic Peptide 2807 pg/ml (0-900) Total Protein 7.1 gm/dl (6.4-8.2) Albumin 2.7 gm/dl (3.4-5.0) Lipase 58 U/L (73-393) Thyroid Stimulating Hormone (TSH) 3.870 uIu/ml (0.300-4.500) Bedside Lactic Acid Venous 0.70 mmol/L (0.90-1.70) Urine Color YELLOW Urine Appearance CLEAR (CLEAR) Urine pH 6.5 (4.5-7.5) Urine Specific [place] 1.012 (1.000-1.030) Urine Protein 2+ (NEG) Urine Glucose (UA) NEG (NEG) Urine Ketones NEG (NEG) Urine Occult Blood NEG (NEG) Urine Nitrite NEG (NEG) Urine Bilirubin NEG (NEG) Urine Urobilinogen NEG (NEG) Urine Leukocyte Esterase NEG (NEG) Urine WBC (Auto) 0 /hpf (0-5) Urine RBC (Auto) 0-4 /hpf (0-4) Urine Hyaline Casts (Auto) 1-5 /lpf (0-5) Urine Epithelial Cells (Auto) 0-5 /lpf (0-5) Urine Bacteria (Auto) NEG (NEG) Test 01/10/17 16:32 01/10/17 20:11 01/10/17 20:37 Arterial Blood pH 7.42 (7.35-7.45) Arterial Blood Partial Pressure CO2 44 mmHg (35-46) Arterial Blood Partial Pressure O2 80 mm/Hg (80-95) Arterial Blood HCO3 28 mmol/L (19-24) Arterial Blood Oxygen Saturation 94.1 % (90-95) Arterial Blood Base Excess 3.4 mEq/L (-9-1.8) Arterial Blood Gas Delivery ROOM AIR Mk Test POS (POS) Bedside Glucose 106 mg/dl (70-99) Micro Results Date/Time Source Procedure Growth Status 01/10/17 15:28 Blood Blood Culture Pending Received 01/10/17 15:25 Blood Blood Culture Pending Received 01/10/17 16:22 Urine,Catheterized Urine Culture Pending Received Risk Factors for Resistance * Resident in a senior care or extended-care facility * Hospitalization for 48 hours or more within the past 90 days * Antimicrobial use within the last 90 days: Vanco Assessment & Plan 56yo m p/w with b/l weeping wounds. Also admitted 2/2 to excessive weight gain within the past 2 wks. Currently, he is afebrile, RR/WBC/HR all WNL. POC lactic acid 0.70. Pt population p'kinetics: t1/2=14hrs, ke=[id number], Vd=0.6. Renal fxn looks to be elevated from baseline. Goal Vanco lvl until c/s's result is 15- 20mcg/mL. Pt currently receiving Vanco 2800mg IV x1 infsn to achieve a "peak" of roughly 24 mcg/mL. Due to his poor renal fxn and large habitus he is at a risk for Vanco accumulation and further nephron deterioration. Previous dose of 2800mg IV X1 yielded a random lvl of 23.9mcg/mL. Previous random lvl was drawn roughly 10 hrs after start of infsn. I am ordering a random lvl to be drawn on 01/11 w/ AM labs (10 hours after start of today's infsn). Pharmacy will continue to follow and will adjust dose/frequency as necessary. Thank you.
[2017-01-10] MEDS: HEPARIN SOD 5000 UNIT/0.5 ML CARP SQ SCH (22:17)
[2017-01-10] MEDS: ZOLPIDEM TARTRATE 5 MG TAB PO PRN (23:03)
[2017-01-10 23:55] VITALS: BP 127/77; PULSE 63; TEMP 36.5; O2SAT 92
[2017-01-11] MEDS: ACETAMINOPHEN/CODEINE 300/30MG TAB PO PRN ×3 (05:46→18:25)
[2017-01-11] MEDS: HEPARIN SOD 5000 UNIT/0.5 ML CARP SQ SCH ×3 (05:49→21:01)
[2017-01-11 07:26] LABS: FERRITIN 73.7 ng/ml (8.0-388.0)
[2017-01-11 07:40] VITALS: BP 149/93; PULSE 66; TEMP 37.2; O2SAT 93
[2017-01-11] MEDS: INSULIN ASPART 100 UNITS/ML 3 ML PEN SC SCH ×4 (09:14→20:18)
--- NOTE | 2017-01-11 09:15 | Pharmacy Progress Note ---
Pharmacy Abx Dose Progress Nt Date of Service January 11, 2017. Pharmacy Dosing Scope The patient is currently receiving the following antimicrobial agents per Pharmacy consult: Vancomycin IV Objective Height (Feet): 6 Height (Inches): 4.00 Weight (Kilograms): 194.000 Vital Signs (Past 12Hrs) Vital Signs Past 12 Hours Date Time Temp Pulse Resp B/P Pulse Ox O2 Delivery O2 Flow Rate FiO2 01/11/17 07:40 37.2 66 20 149/93 93 Room Air 01/11/17 00:00 Room Air 01/10/17 23:55 36.5 63 14 127/77 92 Lab Results (24Hrs) Test 01/10/17 15:28 01/10/17 15:34 01/10/17 16:22 01/10/17 16:32 White Blood Count 7.41 K/uL (4.8-10.8) Red Blood Count 3.02 M/uL (4.7-6.1) Hemoglobin 8.6 g/dL (14.0-18.0) Hematocrit 26.9 % (42-52) Mean Corpuscular Volume 89.1 fL (80-100) Mean Corpuscular Hemoglobin 28.5 pg (25-34) Mean Corpuscular Hemoglobin Concent 32.0 g/dl (32-36) Platelet Count 149 K/uL (130-400) Mean Platelet Volume 9.9 fL (7.4-10.4) Neutrophils (%) (Auto) 77.3 % Lymphocytes (%) (Auto) 11.6 % Monocytes (%) (Auto) 6.2 % Eosinophils (%) (Auto) 4.5 % Basophils (%) (Auto) 0.3 % Neutrophils # (Auto) 5.73 K/uL (1.4-6.5) Lymphocytes # (Auto) 0.86 K/uL (1.2-3.4) Monocytes # (Auto) 0.46 K/uL (0.11-0.59) Eosinophils # (Auto) 0.33 K/uL (0-0.5) Basophils # (Auto) 0.02 K/uL (0-0.2) RDW Standard Deviation 54.4 fL (36.4-46.3) RDW Coefficient of Variation 16.7 % (11.5-14.5) Immature Granulocyte % (Auto) 0.1 % Immature Granulocyte # (Auto) 0.01 K/uL (0.00-0.02) Anisocytosis PRESENT Spherocytes 1+ Prothrombin Time 11.7 SECONDS (9.0-12.0) Prothromb Time International Ratio 1.1 (0.9-1.1) Activated Partial Thromboplast Time 31.0 SECONDS (21.0-31.0) Partial Thromboplastin Ratio 1.2 Sodium Level 140 mmol/L (136-145) Potassium Level 4.5 mmol/L (3.5-5.1) Chloride Level 104 mmol/L (98-107) Carbon Dioxide Level 30 mmol/L (21-32) Anion Gap 6.0 mmol/L (3-11) Blood Urea Nitrogen 63 mg/dl (7-18) Creatinine 2.70 mg/dl (0.60-1.40) Est Creatinine Clear Calc Drug Dose 55.4 ml/min Estimated GFR () 29.0 Estimated GFR (Non- 25.0 BUN/Creatinine Ratio 23.5 (10-20) Random Glucose 153 mg/dl (70-99) Calcium Level 7.9 mg/dl (8.5-10.1) Magnesium Level 2.8 mg/dl (1.8-2.4) Total Bilirubin 0.7 mg/dl (0.2-1) Direct Bilirubin 0.2 mg/dl (0-0.2) Aspartate Amino Transf (AST/SGOT) 15 U/L (15-37) Alanine Aminotransferase (ALT/SGPT) 14 U/L (12-78) Alkaline Phosphatase 175 U/L (45-117) Total Creatine Kinase 134 U/L (39-308) Creatine Kinase MB 5.5 ng/ml (0.5-3.6) Creatine Kinase MB Ratio 4.1 (0-3.0) Troponin I < 0.015 ng/ml (0-0.045) Pro-B-Type Natriuretic Peptide 2807 pg/ml (0-900) Total Protein 7.1 gm/dl (6.4-8.2) Albumin 2.7 gm/dl (3.4-5.0) Lipase 58 U/L (73-393) Thyroid Stimulating Hormone (TSH) 3.870 uIu/ml (0.300-4.500) Bedside Lactic Acid Venous 0.70 mmol/L (0.90-1.70) Urine Color YELLOW Urine Appearance CLEAR (CLEAR) Urine pH 6.5 (4.5-7.5) Urine Specific [place] 1.012 (1.000-1.030) Urine Protein 2+ (NEG) Urine Glucose (UA) NEG (NEG) Urine Ketones NEG (NEG) Urine Occult Blood NEG (NEG) Urine Nitrite NEG (NEG) Urine Bilirubin NEG (NEG) Urine Urobilinogen NEG (NEG) Urine Leukocyte Esterase NEG (NEG) Urine WBC (Auto) 0 /hpf (0-5) Urine RBC (Auto) 0-4 /hpf (0-4) Urine Hyaline Casts (Auto) 1-5 /lpf (0-5) Urine Epithelial Cells (Auto) 0-5 /lpf (0-5) Urine Bacteria (Auto) NEG (NEG) Arterial Blood pH 7.42 (7.35-7.45) Arterial Blood Partial Pressure CO2 44 mmHg (35-46) Arterial Blood Partial Pressure O2 80 mm/Hg (80-95) Arterial Blood HCO3 28 mmol/L (19-24) Arterial Blood Oxygen Saturation 94.1 % (90-95) Arterial Blood Base Excess 3.4 mEq/L (-9-1.8) Arterial Blood Gas Delivery ROOM AIR Mk Test POS (POS) Test 01/10/17 20:11 01/10/17 20:37 01/11/17 05:30 01/11/17 07:44 Bedside Glucose 106 mg/dl (70-99) 97 mg/dl (70-99) Ammonia 40.0 umol/L (11-32) Iron Level 37 mcg/dl (35-175) Total Iron Binding Capacity 264 mcg/dl (250-450) Ferritin 73.7 ng/ml (8.0-388.0) Random Vancomycin Level 16.1 mcg/ml Micro Results Date/Time Source Procedure Growth Status 01/10/17 15:28 Blood Blood Culture Pending Received 01/10/17 15:25 Blood Blood Culture Pending Received 01/10/17 16:22 Urine,Catheterized Urine Culture Pending Received Risk Factors for Resistance * Resident in a [facility] or extended-care facility * Hospitalization for 48 hours or more within the past 90 days * Antimicrobial use within the last 90 days: Vanco Assessment & Plan Assessment 56 year old male receiving Vancomycin for treatment of B/L lower extremity cellulitis. Most recent admission in November 2016 showed patient DOES NOT follow population kinetics when dosing Vancomycin. He is even more difficult to dose this admission as he has gained nearly 33 kg, and again, presents with BART. Day # 2 of antimicrobial therapy Plan Vancomycin IV * A modified loading dose was given last night (2800 mg ~14 mg/kg IV X 1) and a 10 hr level ordered with AM labs this morning. * Random level of 16 mcg/mL is therapeutic and indicates that it is safe to re- dose patient. * Strictly based on prior admission data, initiate dose of 1750 mg IV every 24 hours. * Goal trough level for cellulitis: ~15 mcg/mL * Trough level ordered for: 01/13/17 @0930 prior to the 1000 dose. * Less than traditional dose and/or extended dosing interval selected due to likelihood of drug accumulation in obese patient/CKD. * NOTE: This dose is subject to change based on clinical response/renal function. Pharmacy will continue to follow and will adjust dose/frequency as necessary. Thank you.
--- NOTE | 2017-01-11 09:32 | Clinical Documentation Query ---
JIMMY Beckett : CLINICAL DOCUMENTATION QUERY Patient is a 56 year old male admitted for treatment of bilateral lower extremity cellulitis. BMI noted to be 52.1 kg/m*m. In order to capture this important clinical data from the EMR, the associated clinical diagnosis must be explicitly documented by the provider. As appropriate, consider documentation of this condition as suggested below. In your clinical opinion does your patient have a diagnosis of: ( x ) Obesity ( ) Other explanation of clinical findings (Please Explain) ( ) Unable to determine (Please Define) ( ) Need to Discuss ( ) Not Agree The medical record reflects the following clinical findings, treatment, and risk factors. Clinical Indicators: As above Treatment: DAHA diet Risk Factors: Age, diabetes, physical inactivity, intake> output Please clarify and document your clinical opinion in the progress notes and discharge summary. Terms such as "probable", "suspected", "likely", "questionable", "possible", or "still to be ruled out" are acceptable. IF IN AGREEMENT, YOU MUST DOCUMENT ABOVE DIAGNOSTIC STATEMENT IN DAILY PROGRESS NOTES AND DISCHARGE SUMMARY. This document is not part of the patient's record. Thank You, Santana Negrete, RN [phone]
[2017-01-11] MEDS: VANCOMYCIN INJ 1,750 MG in SODIUM CHLORIDE 0.9% 500ML 500 ML IV SCH (10:54)
--- NOTE | 2017-01-11 12:57 | Pharmacy Progress Note ---
Glycemic Control Intl Consult Date of Service January 11, 2017. Scope Glycemic Pharmacist consulted by Dr Ramirez on 01/10/17 for glycemic control and to write orders per [facility] inpatient glycemic control protocol Objective Weight (Kilograms): 194.000 Accuchecks BSG (last 24hrs): Test 01/10/17 14:25 01/10/17 15:28 01/10/17 20:11 01/11/17 07:44 Bedside Glucose 173 mg/dl (70-99) 106 mg/dl (70-99) 97 mg/dl (70-99) Random Glucose 153 mg/dl (70-99) Test 01/11/17 11:17 Bedside Glucose 108 mg/dl (70-99) Laboratory Data (last 24hrs) Test 01/10/17 15:28 Anion Gap 6.0 mmol/L BUN/Creatinine Ratio 23.5 Blood Urea Nitrogen 63 mg/dl Creatinine 2.70 mg/dl Potassium Level 4.5 mmol/L Sodium Level 140 mmol/L White Blood Count 7.41 K/uL Red Blood Count 3.02 M/uL Hemoglobin 8.6 g/dL Hematocrit 26.9 % Mean Corpuscular Volume 89.1 fL Mean Corpuscular Hemoglobin 28.5 pg Mean Corpuscular Hemoglobin Concent 32.0 g/dl Platelet Count 149 K/uL Mean Platelet Volume 9.9 fL Neutrophils (%) (Auto) 77.3 % Lymphocytes (%) (Auto) 11.6 % Monocytes (%) (Auto) 6.2 % Eosinophils (%) (Auto) 4.5 % Basophils (%) (Auto) 0.3 % Neutrophils # (Auto) 5.73 K/uL Lymphocytes # (Auto) 0.86 K/uL Monocytes # (Auto) 0.46 K/uL Eosinophils # (Auto) 0.33 K/uL Basophils # (Auto) 0.02 K/uL Recent Pertinent Medications Outpatient Anti-diabetic Regimen: * NovoLog 15 units SQ TID with meals * NovoLog SQ sliding scale with correction factor of 25mg/dL/unit * Basal insulin - unsure of name/dose/frequency (Lantus at rehab, Levemir at home per last consult) * A1c = 7.6 % 01/07/17 The patient is currently receiving: * Basal insulin: * none at this time * Bolus Insulin: * NovoLog SQ AC/HS - Goal Range: Low 100 mg/dL - High 140 mg/dL - Correction Factor: 30 mg/dL/unit - Carb ratio of 1 unit per 10 grams CHO consumed Risk Factors for Insulin Resistance: * Infection: vancomycin IV for SSTI * Diet: tolerating per carb counts Assessment & Plan ASSESSMENT: * ADA & AACE recommend a goal blood sugar range 140-180 mg/dl for the majority of critically ill & non-critically ill patients. However, more stringent targets may be selected in individual cases. A lower goal range will be utilized to promote wound healing in a non-elderly patient. 01/11/17 * Prior glycemic consultation reviewed * noted to require ~50 units of insulin per day. At that time, he was on a heparin IV infusion (mixed in D5W). * Currently, BSGs at or below goal range with minimal insulin (basal insulin not given this AM) * will add basal insulin back to regimen with dose depending on BSG * NovoLog parameter appear appropriate (base don current and historical data) * A1c is current PLAN FOR INPATIENT GLYCEMIC CONTROL: * Basal insulin: * Levemir SQ BID - 0 units if BSG is below 100mg/dL - 10 units if BSG is 100-140mg/dL - 15 units if BSG is above 140mg/dL * Bolus insulin: * NovoLog SQ AC and HS - Correction factor: 30mg/dL/unit - Carb ratio: 1 unit per every 10 g of CHO consumed - Goal range: 100-140mg/dL per above * A1c * added to discharge instructions * Please note that the plan above was derived based on current level of insulin resistance and hospital stress. These recommendations are appropriate for inpatient admission only. Plan of care upon discharge will need to be reassessed to avoid potential outpatient hypo/hyperglycemia. Thank you.
[2017-01-11 15:48] VITALS: BP 139/81; PULSE 63; TEMP 37.3; O2SAT 96
[2017-01-11] MEDS: INSULIN DETEMIR FLEXPEN/FLEX TOUCH 100 UNITS/ML 3ML SC SCH (21:01)
[2017-01-11] MEDS ORDERED: ACETAMINOPHEN 500 MG TAB PO PRN (21:30)
[2017-01-11] MEDS ORDERED: DOCUSATE SODIUM 100 MG CAP PO PRN (21:30)
[2017-01-11] MEDS ORDERED: ACETAMINOPHEN/CODEINE 300/30MG TAB PO PRN (21:30)
[2017-01-11] MEDS ORDERED: BISACODYL 10 MG SUPP PR PRN (21:30)
[2017-01-11] MEDS ORDERED: ALBUTEROL HFA 8 GM INHALER INH PRN (21:30)
[2017-01-11] MEDS ORDERED: ONDANSETRON 8 MG TAB PO PRN (21:30)
[2017-01-11] MEDS ORDERED: NITROGLYCERIN 0.4 MG SL PER TAB CHARGE UT PRN (21:30)
--- NOTE | 2017-01-11 21:42 | Progress Note ---
Internal Med Progress Note Date of Service: January 11, 2017. Provider Documentation: SUBJECTIVE: complains of pain on bilateral ankle and knee no fever or chills awake and alert conversing denies of chest pain , SOB OBJECTIVE: Vital Signs-as noted below Exam: General-morbidly obese , no sign of distress Eyes-sclera non icteric ENT-NAD Lungs-diminished breath sound Heart-regular S1/S2 Abdomen-soft ,non tender Extremities-bilateral lower ext extensive lymphadenopathy , lower ext wound , bandage present Neuro-no focal deficit , AAO x3 Lab data as noted below. ASSESSMENT & PLAN: LOWER EXT CELLULITIS : chronic bilat lower ext edema , wound infection previous wound culture -staph aureus pt is allergic to multiple Antibiotics on empirically on IV Vancomycin wound care eval requested ' pt follows at with Wound clinic TYPE 2 DM : Presents with hypoglycemic episode possible due to above Hb A1c 01/07/17 7.6 insulin SSI appreciate pharmacy consult for glycemic management CONFUSION /CHANGED MENTAL STATUS /METABOLIC ENCEPHALOPATHY due to combination of infection /hypoglycemia resolved , awake and alert now , conversing appropriately CT head negative for acute change ANEMIA ; Hb 10.2 ( on 01/03/17 ) to 8.6 check stool for heme occult Fe study -wnl added Fe supplement follow H&H CHRONIC ISCHEMIC CHF WITH SYSTOLIC DYSFUNCTION : EF 45-50 % S/P AICD cont Lasix 80 mg PO BID DVT PROPHYLAXIS : recent hx of DVT on lower ext on Eliquis FULL CODE DISPOSITION ; return to [facility] when medically stable Vital Signs: Date Time Temp Pulse Resp B/P Pulse Ox O2 Delivery O2 Flow Rate FiO2 01/11/17 17:03 Room Air 01/11/17 15:48 37.3 63 18 139/81 96 Room Air 01/11/17 08:30 Room Air 01/11/17 07:40 37.2 66 20 149/93 93 Room Air 01/11/17 00:00 Room Air 01/10/17 23:55 36.5 63 14 127/77 92 Lab Results: Results Past 24 Hours Test 01/11/17 05:30 01/11/17 07:44 01/11/17 11:17 01/11/17 16:39 Range/Units Iron Level 37 35-175 mcg/dl Total Iron Binding Capacity 264 250-450 mcg/dl Ferritin 73.7 8.0-388.0 ng/ml Random Vancomycin Level 16.1 mcg/ml Bedside Glucose 97 108 123 70-99 mg/dl Test 01/11/17 20:06 Range/Units Bedside Glucose 123 70-99 mg/dl
[2017-01-11] MEDS: FUROSEMIDE 80 MG TAB PO SCH (22:21)
[2017-01-11] MEDS: APIXABAN 2.5 MG TAB PO SCH (22:22)
--- NOTE | 2017-01-11 22:31 | DIAGNOSTIC IMAGING REPORT ---
ULTRASOUND VENOUS DOPPLER LWR EXT BILA CLINICAL HISTORY: Leg swelling COMPARISON STUDY: 11/15/2016 FINDINGS: On the left, no intraluminal thrombus is visualized. The veins were compressible from the groin to the popliteal vein. The proximal trifurcation veins of the left calf appear patent. On the right, there is nonocclusive thrombus within the common femoral vein and superficial femoral vein. The popliteal vein appeared normal. The calf veins cannot be visualized due to bandaging. The study was limited due to the patient's body habitus and leg swelling. IMPRESSION: 1. No evidence of left lower extremity DVT 2. Nonocclusive thrombus within the right common femoral vein and superficial femoral vein. The findings remain similar to the prior study dated 11/15/2016 Electronically signed by: Richard Byrd M.D. 01/11/2017 10:29 PM Dictated Date/Time: 01/11/2017 10:26 PM
[2017-01-11 23:40] VITALS: BP 157/90; PULSE 60; TEMP 37.7; O2SAT 92
[2017-01-12] MEDS: ACETAMINOPHEN/CODEINE 300/30MG TAB PO PRN ×4 (00:46→21:29)
[2017-01-12] MEDS: HEPARIN SOD 5000 UNIT/0.5 ML CARP SQ SCH ×3 (05:38→21:16)
[2017-01-12 06:32] LABS: CREATININE 2.7 mg/dl (0.60-1.40)
[2017-01-12 07:52] VITALS: BP 155/76; PULSE 65; TEMP 37.1; O2SAT 95
[2017-01-12] MEDS: APIXABAN 2.5 MG TAB PO SCH ×2 (08:18→21:12)
[2017-01-12] MEDS: URSODIOL 300 MG CAP PO SCH ×2 (08:18→21:11)
[2017-01-12] MEDS: FUROSEMIDE 80 MG TAB PO SCH ×2 (08:18→18:14)
[2017-01-12] MEDS: CEROVITE ADV FORMULA TAB PO SCH (08:19)
[2017-01-12] MEDS: ASPIRIN 81 MG ECTAB PO SCH (08:19)
[2017-01-12] MEDS: POLYETHYLENE (MIRALAX) 17 GM PACK PO SCH (08:19)
[2017-01-12] MEDS: CARVEDILOL 25 MG TAB PO SCH ×2 (08:19→21:12)
[2017-01-12] MEDS: FERROUS SULFATE 325 MG TAB PO SCH ×2 (08:19→18:13)
[2017-01-12] MEDS: INSULIN ASPART 100 UNITS/ML 3 ML PEN SC SCH ×4 (08:26→20:48)
[2017-01-12] MEDS: INSULIN DETEMIR FLEXPEN/FLEX TOUCH 100 UNITS/ML 3ML SC SCH ×2 (08:26→21:17)
[2017-01-12] MEDS: VANCOMYCIN INJ 1,750 MG in SODIUM CHLORIDE 0.9% 500ML 500 ML IV SCH (09:52)
[2017-01-12 14:38] VITALS: BP 153/80; PULSE 63; TEMP 36.6; O2SAT 93
[2017-01-12 16:00] VITALS: O2SAT 93
--- NOTE | 2017-01-12 19:34 | Progress Note ---
Internal Med Progress Note Date of Service: Jan 12, 2017. Provider Documentation: SUBJECTIVE: pain in bilateral lower ext improved no fever or chills wants to have Vivas catheter removed OBJECTIVE: Vital Signs-as noted below Exam: General-morbidly obese , no sign of distress Eyes-sclera non icteric ENT-NAD Lungs-diminished breath sound Heart-regular S1/S2 Abdomen-soft ,non tender Extremities-bilateral lower ext extensive lymphadenopathy , lower ext wound , bandage present Neuro-no focal deficit , AAO x3 Lab data as noted below. ASSESSMENT & PLAN: LOWER EXT CELLULITIS : chronic bilat lower ext edema , wound infection previous wound culture -staph aureus pt is allergic to multiple Antibiotics on empirically on IV Vancomycin wound care eval requested ' pt follows at with Wound clinic TYPE 2 DM : Presents with hypoglycemic episode possible due to above Hb A1c 01/07/17 7.6 insulin SSI appreciate pharmacy consult for glycemic management CONFUSION /CHANGED MENTAL STATUS /METABOLIC ENCEPHALOPATHY due to combination of infection /hypoglycemia resolved , awake and alert now , conversing appropriately CT head negative for acute change ANEMIA ; Hb 10.2 ( on 01/03/17 ) to 8.6 check stool for heme occult Fe study -wnl added Fe supplement follow H&H CHRONIC ISCHEMIC CHF WITH SYSTOLIC DYSFUNCTION : EF 45-50 % S/P AICD cont Lasix 80 mg PO BID DVT PROPHYLAXIS : recent hx of DVT on lower ext lower ext Doppler : IMPRESSION: 1. No evidence of left lower extremity DVT 2. Nonocclusive thrombus within the right common femoral vein and superficial femoral vein. The findings remain similar to the prior study dated 11/15/2016 on Eliquis FULL CODE DISPOSITION ; return to [facility] when medically stable Vital Signs: Date Time Temp Pulse Resp B/P (MAP) Pulse Ox O2 Delivery O2 Flow Rate FiO2 01/12/17 14:38 36.6 63 20 153/80 (104) 93 Room Air 01/12/17 08:00 Room Air 01/12/17 07:52 37.1 65 20 155/76 (102) 95 Room Air 01/12/17 00:30 Room Air 01/11/17 23:40 37.7 60 20 157/90 (112) 92 Room Air Lab Results: Results Past 24 Hours Test 01/11/17 20:06 01/12/17 05:45 01/12/17 07:38 01/12/17 11:15 Range/Units Bedside Glucose 123 102 121 70-99 mg/dl Creatinine 2.70 0.60-1.40 mg/dl Est Creatinine Clear Calc Drug Dose 55.4 ml/min Estimated GFR () 29.0 Estimated GFR (Non- 25.0 Test 01/12/17 16:29 Range/Units Bedside Glucose 124 70-99 mg/dl
[2017-01-12] MEDS: TRAZODONE HCL 50 MG TAB PO SCH (21:12)
[2017-01-12] MEDS: VENLAFAXINE HCL XR 75 MG CAPXR PO SCH (21:13)
[2017-01-12] MEDS: ATORVASTATIN 20 MG TAB PO SCH (21:13)
[2017-01-12] MEDS: DOCUSATE SODIUM/SENNA 50/8.6MG TAB PO SCH (21:13)
[2017-01-12] MEDS: PANTOprazole SOD 40 MG TAB PO SCH (21:13)
[2017-01-12] MEDS: BACITRACIN OINT 15 GM TUBE TOP SCH (21:14)
[2017-01-13 00:08] VITALS: BP 155/75; PULSE 57; TEMP 36.9; O2SAT 94
[2017-01-13] MEDS: ACETAMINOPHEN/CODEINE 300/30MG TAB PO PRN ×2 (02:16→21:28)
[2017-01-13] MEDS: ONDANSETRON INJ 2 MG/ML 2 ML VIAL IV PRN ×2 (02:54→20:19)
[2017-01-13] MEDS: HEPARIN SOD 5000 UNIT/0.5 ML CARP SQ SCH ×3 (06:01→21:30)
[2017-01-13 07:00] LABS: CREATININE 2.6 mg/dl (0.60-1.40)
[2017-01-13 07:24] VITALS: BP 138/83; PULSE 63; TEMP 36.4; O2SAT 97
[2017-01-13] MEDS: APIXABAN 2.5 MG TAB PO SCH ×2 (08:36→20:27)
[2017-01-13] MEDS: CARVEDILOL 25 MG TAB PO SCH ×2 (08:36→20:26)
[2017-01-13] MEDS: CEROVITE ADV FORMULA TAB PO SCH (08:37)
[2017-01-13] MEDS: FERROUS SULFATE 325 MG TAB PO SCH ×2 (08:37→17:04)
[2017-01-13] MEDS: POLYETHYLENE (MIRALAX) 17 GM PACK PO SCH (08:37)
[2017-01-13] MEDS: ASPIRIN 81 MG ECTAB PO SCH (08:37)
[2017-01-13] MEDS: URSODIOL 300 MG CAP PO SCH ×2 (08:37→20:27)
[2017-01-13] MEDS: FUROSEMIDE 80 MG TAB PO SCH ×2 (08:37→17:24)
[2017-01-13] MEDS: INSULIN DETEMIR FLEXPEN/FLEX TOUCH 100 UNITS/ML 3ML SC SCH ×2 (08:39→20:24)
[2017-01-13] MEDS: INSULIN ASPART 100 UNITS/ML 3 ML PEN SC SCH ×4 (08:40→20:24)
[2017-01-13] MEDS ORDERED: VANCOMYCIN TROUGH SCH (09:30)
--- NOTE | 2017-01-13 10:04 | Pharmacy Progress Note ---
Glycemic Control: Progress Nt Date of Service Jan 13, 2017. Scope Glycemic Pharmacist consulted by Dr Ramirez on 01/10/17 for glycemic control and to write orders per [facility] inpatient glycemic control protocol. Objective Accuchecks BSG (last 24hrs): Test 01/12/17 11:15 01/12/17 16:29 01/12/17 20:06 01/13/17 07:41 Bedside Glucose 121 mg/dl (70-99) 124 mg/dl (70-99) 130 mg/dl (70-99) 105 mg/dl (70-99) Laboratory Data (last 24hrs) Test 01/13/17 06:11 Creatinine 2.60 mg/dl Recent Pertinent Medications Outpatient Anti-diabetic Regimen: * All dosing verified with scanned fci MAR * NovoLog 15 units SQ TID with meals recently increased to 40 units SQ TID with meals * NovoLog SQ sliding scale with correction factor of 25mg/dL/unit * Lantus 80 units SC daily recently decreased to 65 units daily * A1c = 7.6 % 01/07/17 Risk Factors for Insulin Resistance: * Infection: vancomycin IV for SSTI * Diet: tolerating per carb counts Assessment & Plan ASSESSMENT: * 56 yo M admitted with AMS and said to have BSGs in the 40's [employer], now here tolerating reduced basal/bolus regimen * Fasting BSG consistently ~100 X 48 hours * Patient is currently receiving an average of 42 units of insulin per day * 20 units of basal insulin * 22 units of prandial/correctional insulin * BSGs ranging 102-130 over the past 24hrs * Regimen split nicely 50/50- no changes necessary at this time * ADA & AACE recommend a goal blood sugar range 140-180 mg/dl for the majority of critically ill & non-critically ill patients. However, more stringent targets may be selected in individual cases. PLAN FOR INPATIENT GLYCEMIC CONTROL: * Continue Levemir 10 units SQ BID, HOLD if BSG <100 mg/dL * Continue correction factor 30 mg/dl/unit * Continue carb ratio 1 unit per 10 grams CHO consumed * Continue goal range Low 100 mg/dL - High 140 mg/dL RECOMMENDATIONS FOR DISCHARGE: * Based on hypoglycemic event, patient will require decrease in outpatient regimen * It appears from scanned nursing documents that the patient was just recently DECREASED from Lantus 80 units to 65 units and INCREASED from Novolog 15 units with meals to 40 units with meals * Recommend further decrease in Lantus since Fasting BSG in the 40s and reduce scheduled Novolog based on inpatient data * Please note that the plan above was derived based on current level of insulin resistance and hospital stress. These recommendations are appropriate for inpatient admission only. Plan of care upon discharge will need to be reassessed to avoid potential outpatient hypo/hyperglycemia. Thank you.
[2017-01-13] MEDS: POLYETHYLENE (MIRALAX) 17 GM PACK PO PRN (10:46)
[2017-01-13] MEDS: VANCOMYCIN INJ 1,750 MG in SODIUM CHLORIDE 0.9% 500ML 500 ML IV SCH (10:46)
[2017-01-13 16:16] VITALS: BP 157/83; PULSE 63; TEMP 36.3; O2SAT 95
[2017-01-13] MEDS: DOXYCYCLINE HYCLATE 100 MG CAP PO SCH (20:21)
[2017-01-13 20:22] VITALS: BP 153/89; PULSE 66
[2017-01-13] MEDS: DOCUSATE SODIUM/SENNA 50/8.6MG TAB PO SCH (20:26)
[2017-01-13] MEDS: TRAZODONE HCL 50 MG TAB PO SCH (20:27)
[2017-01-13] MEDS: ATORVASTATIN 20 MG TAB PO SCH (20:29)
[2017-01-13] MEDS: PANTOprazole SOD 40 MG TAB PO SCH (20:29)
[2017-01-13] MEDS: BACITRACIN OINT 15 GM TUBE TOP SCH (20:29)
[2017-01-13] MEDS: VENLAFAXINE HCL XR 75 MG CAPXR PO SCH (21:23)
--- NOTE | 2017-01-14 00:35 | Progress Note ---
Internal Med Progress Note Date of Service: Jan 13, 2017. LATE ENTRY Provider Documentation: SUBJECTIVE: offers no complain no fever or chills OBJECTIVE: Vital Signs-as noted below Exam: General-morbidly obese , no sign of distress Eyes-sclera non icteric ENT-NAD Lungs-diminished breath sound Heart-regular S1/S2 Abdomen-soft ,non tender Extremities-bilateral lower ext extensive lymphadenopathy , lower ext wound , bandage present Neuro-no focal deficit , AAO x3 Lab data as noted below. ASSESSMENT & PLAN: LOWER EXT CELLULITIS : chronic bilat lower ext edema , wound infection previous wound culture -staph aureus pt is allergic to multiple Antibiotics ABx changed to PO Doxycycline complete total 10 days course wound care eval requested ' pt follows at with Wound clinic TYPE 2 DM : Presents with hypoglycemic episode possible due to above Hb A1c 01/07/17 7.6 insulin SSI appreciate pharmacy consult for glycemic management CONFUSION /CHANGED MENTAL STATUS /METABOLIC ENCEPHALOPATHY due to combination of infection /hypoglycemia resolved , awake and alert now , conversing appropriately CT head negative for acute change ANEMIA ; Hb 10.2 ( on 01/03/17 ) to 8.6 check stool for heme occult Fe study -wnl added Fe supplement follow H&H CHRONIC ISCHEMIC CHF WITH SYSTOLIC DYSFUNCTION : EF 45-50 % S/P AICD cont Lasix 80 mg PO BID DVT PROPHYLAXIS : recent hx of DVT on lower ext lower ext Doppler : IMPRESSION: 1. No evidence of left lower extremity DVT 2. Nonocclusive thrombus within the right common femoral vein and superficial femoral vein. The findings remain similar to the prior study dated 11/15/2016 on Eliquis FULL CODE DISPOSITION ; return to [facility] when medically stable Vital Signs: Date Time Temp Pulse Resp B/P (MAP) Pulse Ox O2 Delivery O2 Flow Rate FiO2 01/13/17 20:22 66 153/89 (110) 01/13/17 18:34 Room Air 01/13/17 16:16 36.3 63 16 157/83 (107) 95 Room Air 01/13/17 10:00 Room Air 01/13/17 07:24 36.4 63 18 138/83 (101) 97 Room Air 01/13/17 01:58 Room Air Lab Results: Results Past 24 Hours Test 01/13/17 06:11 01/13/17 07:41 01/13/17 10:25 01/13/17 11:37 Range/Units Creatinine 2.60 0.60-1.40 mg/dl Est Creatinine Clear Calc Drug Dose 57.5 ml/min Estimated GFR () 30.4 Estimated GFR (Non- 26.2 Bedside Glucose 105 165 70-99 mg/dl Vancomycin Level Trough 20.5 SEE COMMENT mcg/ml Test 01/13/17 16:57 01/13/17 20:18 Range/Units Bedside Glucose 137 140 70-99 mg/dl
[2017-01-14] MEDS: ONDANSETRON INJ 2 MG/ML 2 ML VIAL IV PRN ×3 (00:39→23:58)
[2017-01-14] MEDS: ZOLPIDEM TARTRATE 5 MG TAB PO PRN (00:39)
[2017-01-14 00:56] VITALS: BP 154/86; PULSE 63; TEMP 36.4; O2SAT 95
[2017-01-14] MEDS: HEPARIN SOD 5000 UNIT/0.5 ML CARP SQ SCH ×3 (06:25→20:47)
[2017-01-14 07:24] LABS: CREATININE 2.3 mg/dl (0.60-1.40)
[2017-01-14 07:51] VITALS: BP 137/79; PULSE 63; TEMP 36.6; O2SAT 96
[2017-01-14] MEDS: URSODIOL 300 MG CAP PO SCH ×2 (08:31→20:44)
[2017-01-14] MEDS: DOXYCYCLINE HYCLATE 100 MG CAP PO SCH ×2 (08:31→20:44)
[2017-01-14] MEDS: APIXABAN 2.5 MG TAB PO SCH ×2 (08:31→20:44)
[2017-01-14] MEDS: CARVEDILOL 25 MG TAB PO SCH ×2 (08:31→20:44)
[2017-01-14] MEDS: CEROVITE ADV FORMULA TAB PO SCH (09:31)
[2017-01-14] MEDS: FUROSEMIDE 80 MG TAB PO SCH ×2 (09:31→15:48)
[2017-01-14] MEDS: ASPIRIN 81 MG ECTAB PO SCH (09:31)
[2017-01-14] MEDS: FERROUS SULFATE 325 MG TAB PO SCH ×2 (09:31→15:47)
[2017-01-14] MEDS: POLYETHYLENE (MIRALAX) 17 GM PACK PO SCH (09:31)
[2017-01-14] MEDS: INSULIN ASPART 100 UNITS/ML 3 ML PEN SC SCH ×4 (09:33→20:44)
[2017-01-14] MEDS: INSULIN DETEMIR FLEXPEN/FLEX TOUCH 100 UNITS/ML 3ML SC SCH ×2 (09:34→20:47)
[2017-01-14] MEDS: ACETAMINOPHEN/CODEINE 300/30MG TAB PO PRN ×2 (09:45→15:45)
[2017-01-14] MEDS: MAGNESIUM HYDROXIDE SUSP 30 ML UDC PO PRN (15:45)
[2017-01-14] MEDS ORDERED: VANCOMYCIN INJ 1,750 MG in SODIUM CHLORIDE 0.9% 500ML 500 ML IV SCH (16:00)
[2017-01-14 16:03] VITALS: BP 125/73; PULSE 64; TEMP 36.4; O2SAT 96
--- NOTE | 2017-01-14 20:06 | Progress Note ---
Internal Med Progress Note Date of Service: Jan 14, 2017. Provider Documentation: SUBJECTIVE: feels the same , minimum pain on bilateral legs no fever or chills no SOB OBJECTIVE: Vital Signs-as noted below Exam: General-morbidly obese , no sign of distress Eyes-sclera non icteric ENT-NAD Lungs-diminished breath sound Heart-regular S1/S2 Abdomen-soft ,non tender Extremities-bilateral lower ext extensive lymphadenopathy , lower ext wound , bandage present Neuro-no focal deficit , AAO x3 Lab data as noted below. ASSESSMENT & PLAN: LOWER EXT CELLULITIS : chronic bilat lower ext edema , wound infection previous wound culture -staph aureus pt is allergic to multiple Antibiotics on PO Doxycycline complete total 10 days course wound care eval requested ' pt follows at with Wound clinic TYPE 2 DM : Presents with hypoglycemic episode possible due to above Hb A1c 01/07/17 7.6 insulin SSI appreciate pharmacy consult for glycemic management CONFUSION /CHANGED MENTAL STATUS /METABOLIC ENCEPHALOPATHY due to combination of infection /hypoglycemia resolved , awake and alert now , conversing appropriately CT head negative for acute change ANEMIA ; Hb 10.2 ( on 01/03/17 ) to 8.6 check stool for heme occult Fe study -wnl added Fe supplement follow H&H CHRONIC ISCHEMIC CHF WITH SYSTOLIC DYSFUNCTION : EF 45-50 % S/P AICD cont Lasix 80 mg PO BID DVT PROPHYLAXIS : recent hx of DVT on lower ext lower ext Doppler : IMPRESSION: 1. No evidence of left lower extremity DVT 2. Nonocclusive thrombus within the right common femoral vein and superficial femoral vein. The findings remain similar to the prior study dated 11/15/2016 on [facility] FULL CODE DISPOSITION ; possible return to [facility] tomorrow will update Social service Vital Signs: Date Time Temp Pulse Resp B/P (MAP) Pulse Ox O2 Delivery O2 Flow Rate FiO2 01/14/17 16:03 36.4 64 20 125/73 (90) 96 Room Air 01/14/17 16:00 Room Air 01/14/17 09:30 Room Air 01/14/17 07:51 36.6 63 18 137/79 (98) 96 01/14/17 00:56 36.4 63 18 154/86 (108) 95 Room Air 63 01/14/17 00:00 Room Air 01/13/17 20:22 66 153/89 (110) Lab Results: Results Past 24 Hours Test 01/13/17 20:18 01/14/17 06:34 01/14/17 07:44 01/14/17 11:53 Range/Units Bedside Glucose 140 105 144 70-99 mg/dl Creatinine 2.30 0.60-1.40 mg/dl Est Creatinine Clear Calc Drug Dose 65.0 ml/min Estimated GFR () 35.2 Estimated GFR (Non- 30.4 Test 01/14/17 16:17 Range/Units Bedside Glucose 127 70-99 mg/dl
[2017-01-14] MEDS ORDERED: FRRS300 PO (20:08)
[2017-01-14] MEDS ORDERED: ACET-749 PO (20:08)
[2017-01-14] MEDS ORDERED: TRAZ50TA35 PO (20:08)
[2017-01-14] MEDS ORDERED: DXY100 PO (20:08)
--- NOTE | 2017-01-14 20:10 | Discharge Instructions ---
Discharge Instructions Date of Service Jan 14, 2017. Admission Reason for Admission: Anemia, Cellulitis Discharge Discharge Diagnosis / Problem: BILATERAL LOWER EXTREMITY CELLULLITIS /CHRONIC LYMPHEDEMA Discharge Goals Goal(s): Decrease discomfort, Increase independence Activity Recommendations Activity Level: Assistance Required Therapies: Physical Therapy, Occupational Therapy . Additional Information Patient informed of condition: Yes Advance Directives: No DNR: No Level of Care: Skilled Communicable Disease: No Prognosis: Stable Vivas Catheter: No Instructions / Follow-Up Instructions / Follow-Up CONTINUE TO FOLLOW UP WITH PHYSICIANS AT [facility] Diet Patient's current hospital diet: Diabetes Type 2 Diet, AHA Diet (Heart Healthy) Discharge Diet Recommended Diet: AHA Diet (Heart Healthy), Diabetes Type 2 Diet Pending Studies Studies pending at discharge: no Laboratory Results Hemoglobin A1c Test 01/07/17 04:15 Range/Units Estimated Average Glucose 171 mg/dl Hemoglobin A1c 7.6 H 4.5-5.6 % Medical Emergencies . Who to Call and When: Medical Emergencies: If at any time you feel your situation is an emergency, please call 911 immediately. . Non-Emergent Contact Non-Emergency issues call your: Primary Care Provider . . "Provider Documentation" section prepared by Demi Ramirez. . Core Measure Problem Core Measures: None
[2017-01-14] MEDS: VENLAFAXINE HCL XR 75 MG CAPXR PO SCH (20:43)
[2017-01-14] MEDS: PANTOprazole SOD 40 MG TAB PO SCH (20:44)
[2017-01-14] MEDS: TRAZODONE HCL 50 MG TAB PO SCH (20:44)
[2017-01-14] MEDS: ATORVASTATIN 20 MG TAB PO SCH (20:44)
[2017-01-14] MEDS: DOCUSATE SODIUM/SENNA 50/8.6MG TAB PO SCH (20:44)
[2017-01-14] MEDS: BACITRACIN OINT 15 GM TUBE TOP SCH (20:45)
[2017-01-14 20:48] VITALS: BP 141/77; PULSE 63
[2017-01-15] MEDS: HEPARIN SOD 5000 UNIT/0.5 ML CARP SQ SCH (06:13)
[2017-01-15 07:58] VITALS: BP 123/71; PULSE 63; TEMP 36.6; O2SAT 95
[2017-01-15] MEDS: FERROUS SULFATE 325 MG TAB PO SCH (09:06)
[2017-01-15] MEDS: CEROVITE ADV FORMULA TAB PO SCH (09:06)
[2017-01-15] MEDS: DOXYCYCLINE HYCLATE 100 MG CAP PO SCH (09:06)
[2017-01-15] MEDS: ASPIRIN 81 MG ECTAB PO SCH (09:06)
[2017-01-15] MEDS: URSODIOL 300 MG CAP PO SCH (09:06)
[2017-01-15] MEDS: CARVEDILOL 25 MG TAB PO SCH (09:07)
[2017-01-15] MEDS: POLYETHYLENE (MIRALAX) 17 GM PACK PO SCH (09:07)
[2017-01-15] MEDS: FUROSEMIDE 80 MG TAB PO SCH (09:07)
[2017-01-15] MEDS: APIXABAN 2.5 MG TAB PO SCH (09:07)
[2017-01-15] MEDS: INSULIN ASPART 100 UNITS/ML 3 ML PEN SC SCH ×2 (09:11→12:44)
[2017-01-15] MEDS: INSULIN DETEMIR FLEXPEN/FLEX TOUCH 100 UNITS/ML 3ML SC SCH (09:12)
[2017-01-15] MEDS: MAGNESIUM HYDROXIDE SUSP 30 ML UDC PO PRN (09:13)
[2017-01-15] MEDS ORDERED: BISACODYL 5 MG TABEC ONE (10:32)
[2017-01-15] MEDS ORDERED: BISACODYL 5 MG TABEC PO ONE (11:00)
[2017-01-15 11:05] VITALS: BP 123/71; PULSE 63; TEMP 36.6; O2SAT 95
[2017-01-15] MEDS: POLYETHYLENE (MIRALAX) 17 GM PACK PO PRN (11:28)
[2017-01-15] MEDS: ACETAMINOPHEN/CODEINE 300/30MG TAB PO PRN (11:29)
--- NOTE | 2017-01-15 20:27 | Discharge Summary ---
Discharge Summary Date of Service Jan 15, 2017. Discharge Summary Admission Date: January 10, 2017 at 18:46 Discharge Date: Jan 15, 2017 Discharge Disposition: [facility] facility ([facility] ) Principal Diagnosis: BILATERAL LOWER EXTREMITY CELLULITIS /CHRONIC LYMPHEDEMA Procedures: lower ext Doppler : IMPRESSION: 1. No evidence of left lower extremity DVT 2. Nonocclusive thrombus within the right common femoral vein and superficial femoral vein. The findings remain similar to the prior study dated 11/15/2016 Medication Reconciliation New Medications: Doxycycline Hyclate (Doxycycline Hyclate) 100 Mg Cap 100 MG PO BID for 6 Days, CAP Ferrous Sulfate (Ferrous Sulfate) 325 Mg Tab 325 MG PO BIDM for 30 Days, TAB Continued Medications: Acetaminophen (Tylenol) 500 Mg Tab 500 MG PO Q4 PRN for Pain or Fever use for mild pain 1-3 or fever >101f max 3gm apap/24hr Acetaminophen/Codeine (Tylenol W/Codeine #3) 300 Mg/30 Mg Tab 1 TAB PO Q6 PRN for Pain for 3 Days, #12 (This prescription has been renewed) max 3gm apap/24hr Albuterol Hfa (Ventolin Hfa) 200 Puffs/20822 Mcg Aers 2 PUFFS INH Q6H PRN for Wheezing Apixaban (Eliquis) 2.5 Mg Tab 5 MG PO Q12, TAB Aspirin (Aspirin Chewable) 81 Mg Chew 81 MG PO QAM Atorvastatin (Lipitor) 40 Mg Tab 40 MG PO QPM Bacitracin (Topical) (Bacitracin) 500 Unit/Gm Oin 1 APPLN TOP HS apply to affected area Bisacodyl (Dulcolax) 10 Mg Sup 1 SUPP UT Q24H PRN for no bm past 2 days, SUP Carvedilol (Coreg) 25 Mg Tab 25 MG PO Q12 Docusate Sodium (Docusate Sodium) 100 Mg Cap 1 CAP PO BID PRN for Constipation, CAP Furosemide (Lasix) 80 Mg Tab 80 MG PO BID, 3 Refills take @ 0630 & 1630 Insulin Aspart (Novolog Flexpen) 100 Units/Ml Inj UNITS SQ ACHS sliding scale BSG GIVE INSULIN UNITS 70-130 0 units 131-180 2 181-240 4 241-300 6 301-350 8 351-400 10 >400 12 units and call Insulin Aspart (Novolog Flexpen) 100 Units/Ml Inj 15 UNITS SQ TIDM give in addition to sliding scale Multiple Vitamins W/ Minerals (Theragran-M) 1 Tab Tab 1 TAB PO QAM Nitroglycerin (Nitrostat) 0.4 Mg Tab 0.4 MG UT UD PRN for Chest Pain Ondansetron Hcl (Zofran) 8 Mg Tab 8 MG PO Q8 PRN for Nausea Pantoprazole (Protonix) 40 Mg Tab 40 MG PO QPM, #30 TAB Polyethylene Glycol 3350 (Miralax) 1 Pow Pow 17 GM PO DAILY, #255 GM Sennosides-Docusate Sodium (Sennalax-S) 1 Tab Tab 2 TABS PO HS Trazodone Hcl (Trazodone) 50 Mg Tab 50 MG PO HS, #30 TAB (This prescription has been renewed) Ursodiol (Ursodiol) 300 Mg Cap 1 CAP PO Q12 Venlafaxine Hcl (Venlafaxine Extended Rel) 75 Mg Cap 75 MG PO HS Discontinued Medications: Amlodipine Besylate (Amlodipine Besylate) 5 Mg Tab 10 MG PO QAM for 30 Days, #60 TAB Admission Information HPI (per Admitting provider): This is a Morbidly obese gentleman with multiple co morbidities-chronic bilat lower ext lymphedema, chronic lower ext non healing wound , HTN, Type 2 DM , recently diagnosed with Rt lower ext DVT , sent form [facility] for confusion , hypoglycemia BSG 40 , worsening pain and drainage form lower ext wound In the ED BSG was 170 , had bilateral lower ext seeping wound with serous / foul smelling drainage no report of fever, chest pain, shortness of breath, cough, nausea, vomiting, diarrhea, or chills. Physical Exam (per Admitting): General Appearance: no apparent distress Eyes: sclerae normal Respiratory/Chest: + pertinent finding (diminished ) Cardiovascular: regular rate, rhythm Abdomen/GI: non tender, soft, + pertinent finding (obese ) Extremities/Musculoskelatal: + pertinent finding (bilateral extensive lymphedema ,with serosanginous drainage ) Neurologic/Psych: + disoriented, + pertinent finding (lethergic , opens up eyes to voice ) Hospital Course LOWER EXT CELLULITIS : chronic bilat lower ext edema , wound infection previous wound culture -staph aureus pt is allergic to multiple Antibiotics on PO Doxycycline complete total 10 days course wound care eval requested ' pt follows at with Wound clinic Stable to be discharge to [facility] today TYPE 2 DM : Presents with hypoglycemic episode possible due to above Hb A1c 01/07/17 7.6 insulin SSI appreciate pharmacy consult for glycemic management CONFUSION /CHANGED MENTAL STATUS /METABOLIC ENCEPHALOPATHY due to combination of infection /hypoglycemia resolved , awake and alert now , conversing appropriately CT head negative for acute change ANEMIA ; Hb 10.2 ( on 01/03/17 ) to 8.6 Fe study -wnl added Fe supplement CHRONIC ISCHEMIC CHF WITH SYSTOLIC DYSFUNCTION : EF 45-50 % S/P AICD cont Lasix 80 mg PO BID DVT PROPHYLAXIS : recent hx of DVT on lower ext lower ext Doppler : IMPRESSION: 1. No evidence of left lower extremity DVT 2. Nonocclusive thrombus within the right common femoral vein and superficial femoral vein. The findings remain similar to the prior study dated 11/15/2016 on [facility] FULL CODE DISPOSITION ; return to [facility] today will update Social service Total time spent on discharge = 35MINS This includes examination of the patient, discharge planning, medication reconciliation, and communication with other providers. Discharge Instructions DI: Transfer Non Acute v4 Discharge Instructions Date of Service Jan 14, 2017. Admission Reason for Admission: Anemia, Cellulitis Discharge Discharge Diagnosis / Problem: BILATERAL LOWER EXTREMITY CELLULITIS /CHRONIC LYMPHEDEMA Discharge Goals Goal(s): Decrease discomfort, Increase independence Activity Recommendations Activity Level: Assistance Required Therapies: Physical Therapy, Occupational Therapy . Additional Information Patient informed of condition: Yes Advance Directives: No DNR: No Level of Care: Skilled Communicable Disease: No Prognosis: Stable Vivas Catheter: No Instructions / Follow-Up Instructions / Follow-Up CONTINUE TO FOLLOW UP WITH PHYSICIANS AT [facility] Current Hospital Diet Patient's current hospital diet: Diabetes Type 2 Diet, AHA Diet (Heart Healthy) Discharge Diet Recommended Diet: AHA Diet (Heart Healthy), Diabetes Type 2 Diet Pending Studies Studies pending at discharge: no Laboratory Results Hemoglobin A1c Test 01/07/17 04:15 Range/Units Estimated Average Glucose 171 mg/dl Hemoglobin A1c 7.6 H 4.5-5.6 % Medical Emergencies . Who to Call and When: Medical Emergencies: If at any time you feel your situation is an emergency, please call 911 immediately. . Non-Emergent Contact Non-Emergency issues call your: Primary Care Provider . . "Provider Documentation" section prepared by Demi Ramirez. . Core Measure Problem Core Measures: None
[2017-01-17] MEDS ORDERED: VANCOMYCIN TROUGH SCH (03:30)
[2017-04-04] MEDS ORDERED: POLY335019 PO (02:57)
[2017-04-04] MEDS ORDERED: ASPCH81X PO (03:14)
[2017-04-04] MEDS ORDERED: MULT-116 PO (03:27)
[2017-04-04] MEDS ORDERED: NTRGSL/4 UT (03:29)
[2017-04-04] MEDS ORDERED: BISA10SU38 PR (03:30)
[2017-04-04] MEDS ORDERED: VNTHFA/IN INH (03:31)
[2017-04-04] MEDS ORDERED: CARV25TA2 PO (10:02)
[2017-04-04] MEDS ORDERED: ATOR-24 PO (10:02)
[2017-04-04] MEDS ORDERED: URSO300C8 PO (10:02)
[2017-04-04] MEDS ORDERED: VENL75CA73 PO (10:02)
[2017-04-04] MEDS ORDERED: SENN1TAB86 PO (10:02)
[2017-04-07] MEDS ORDERED: DXY100 PO (15:41)
[2017-05-08] MEDS ORDERED: AMX500 PO (16:13)
[2017-05-08] MEDS ORDERED: CPR500 PO (16:13)
[2017-05-08] MEDS ORDERED: LPT40 PO (16:13)
[2017-05-29] MEDS ORDERED: LVMI SQ (13:05)
[2017-05-29] MEDS ORDERED: NYSP EXT (13:05)
[2017-05-29] MEDS ORDERED: FLM4 PO (13:05)
[2017-05-29] MEDS ORDERED: NVLGIPEN SC (13:05)
[2017-05-29] MEDS ORDERED: DRGTP25 TD (13:05)
[2017-05-29] MEDS ORDERED: LSX80 PO (13:05)
[2017-05-29] MEDS ORDERED: WARF5TAB90 PO (13:05)
[2017-05-29] MEDS ORDERED: AMOX500C3 PO (13:10)
[2017-05-29] MEDS ORDERED: CIPR-255 PO (13:10)
[2017-05-29] MEDS ORDERED: LCTX PO ×3 (13:42→13:47)
[2017-06-30] MEDS ORDERED: POTA1CAP2 PO (15:19)
[2017-07-10] MEDS ORDERED: [UNRECOGNIZED DRUG - CODE] IV (16:08)
[2017-07-10] MEDS ORDERED: LEVO25TA PO (16:08)
[2017-07-10] MEDS ORDERED: VANC500I IV (16:08)
[2017-07-10] MEDS ORDERED: LSX80 PO (16:08)
[2017-07-10] MEDS ORDERED: CMD2 PO (16:08)
== END 2017-01-15 14:13 | DRG 602 ==
LOC: ENRESERVTM → ENRESERVDT → EDBD 14:05 → C.EDA 14:06 → C.4E 18:46
PROVIDERS: ADMIT Hospitalist; ATTEND Hospitalist
DX: L03.115 Cellulitis of right lower limb (principal); G93.41 Metabolic encephalopathy; I50.22 Chronic systolic (congestive) heart failure; I13.0 Hypertensive heart and chronic kidney disease with heart failure and stage 1 through stage 4 chronic kidney disease, or unspecified chronic kidney disease; G91.1 Obstructive hydrocephalus; I82.511 Chronic embolism and thrombosis of right femoral vein; I82.891 Chronic embolism and thrombosis of other specified veins; Z68.43 Body mass index [BMI] 50.0-59.9, adult; E11.649 Type 2 diabetes mellitus with hypoglycemia without coma; L03.116 Cellulitis of left lower limb; R60.0 Localized edema; E11.21 Type 2 diabetes mellitus with diabetic nephropathy; I25.10 Atherosclerotic heart disease of native coronary artery without angina pectoris; I48.2 Chronic atrial fibrillation; E78.5 Hyperlipidemia, unspecified; I25.2 Old myocardial infarction; Z86.711 Personal history of pulmonary embolism; I25.5 Ischemic cardiomyopathy; G47.33 Obstructive sleep apnea (adult) (pediatric); N18.3 Chronic kidney disease, stage 3 (moderate); Z88.0 Allergy status to penicillin; D64.9 Anemia, unspecified; Z86.73 Personal history of transient ischemic attack (TIA), and cerebral infarction without residual deficits; Z79.4 Long term (current) use of insulin; E66.01 Morbid (severe) obesity due to excess calories

== ENCOUNTER 2017-04-04 11:07 | Inpatient (IN) | payer OTHER ==
[~2017-04-04] VITALS: Ht 203.2 cm; Wt 152.0 kg
[~2017-04-04 11:07] MED LIST changes: +ASPCH81X PO; +ATOR-24 PO; +BISA10SU38 PR; +CARV25TA2 PO; +DXY100 PO; +FRRS300 PO; +MULT-116 PO; -NRV5 PO; +NTRGSL/4 UT; +POLY335019 PO; +SENN8.6T15 PO; +URSO300C8 PO; +VENL75CA73 PO; +VNTHFA/IN INH
[2017-04-04] MEDS ORDERED: LSN25 PO (11:51)
[2017-04-04] MEDS ORDERED: LEVO25TA PO (11:51)
[2017-04-04] MEDS ORDERED: MELA5TAB19 PO (11:52)
[2017-04-04] MEDS ORDERED: POTA10CA28 PO (11:54)
[2017-04-04] MEDS ORDERED: NXM/40 PO (11:54)
[2017-04-04] MEDS ORDERED: TORS20TA2 PO ×2 (11:56→11:58)
[2017-04-04] MEDS ORDERED: TRAZ50TA35 PO (11:59)
[2017-04-04] MEDS ORDERED: APIX1TAB3 PO (12:00)
[2017-04-04] MEDS ORDERED: DOXY100C76 PO (12:10)
[2017-04-04] MEDS ORDERED: LVMI SQ (12:10)
[2017-04-04] MEDS ORDERED: NVLG SQ (12:13)
[2017-04-04] MEDS ORDERED: DRGTP12 TOP (12:15)
[2017-04-04] MEDS ORDERED: MOMLX PO (12:16)
[2017-04-04] MEDS ORDERED: GLGKIT (12:16)
[2017-04-04] MEDS ORDERED: ONDA4TAB46 PO (12:20)
[2017-04-04 12:51] LABS: BASO % 0.5 %; BASO ABS # 0.04 K/uL (0-0.2); COMPLETE YES; EOS % 2.9 %; HEMATOCRIT 30.5 % (42-52); IG% 0.3 %; LYMPH % 16.4 %; LYMPH ABS # 1.21 K/uL (1.2-3.4); MEAN CORPUSCULAR HEMOGLOBIN 25.8 pg (25-34); MEAN CORPUSCULAR HGB CONC 31.5 g/dl (32-36); MEAN PLATELET VOLUME 9.3 fL (7.4-10.4); MONO % 8.6 %; NEUT % 71.3 %; PLATELET COUNT 222 K/uL (130-400); RED BLOOD COUNT 3.72 M/uL (4.7-6.1); WHITE BLOOD COUNT 7.36 K/uL (4.8-10.8)
[2017-04-04 13:11] LABS: BUN/CREATININE RATIO 15.3 (10-20); CALCIUM 8.4 mg/dl (8.5-10.1); CREATININE 2.2 mg/dl (0.60-1.40); POTASSIUM 4.3 mmol/L (3.5-5.1)
[2017-04-04 13:13] LABS: ALB/GLOB RATIO 0.6 (0.9-2)
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
--- NOTE | 2017-04-04 15:10 | DIAGNOSTIC IMAGING REPORT ---
RIGHT TIBIA/FIBULA 2 VIEWS ROUTINE CLINICAL HISTORY: 56 years-old Male presenting with pain/swelling - r/o osseous involvement Right. TECHNIQUE: Frontal and lateral views of the right lower leg were obtained. COMPARISON: None. FINDINGS: Osteopenia limits evaluation for nondisplaced fracture. Knee joint and ankle mortise grossly intact. Irregularity of the tibial plateau likely projectional. No displaced fracture or malalignment. Diffuse subcutaneous edema noted. IMPRESSION: 1. Osteopenia. This limits evaluation for nondisplaced fracture. Within this limitation, no gross evidence of acute osseous injury. Electronically signed by: Ke Lewis M.D. 04/04/2017 3:09 PM Dictated Date/Time: 04/04/2017 3:08 PM
--- NOTE | 2017-04-04 15:12 | DIAGNOSTIC IMAGING REPORT ---
LEFT TIBIA/FIBULA 2 VIEWS ROUTINE CLINICAL HISTORY: 56 years-old Male presenting with pain/swelling - r/o osseous involvement. TECHNIQUE: Frontal and lateral views of the left lower leg were obtained. COMPARISON: None. FINDINGS: Osteopenia limits evaluation for nondisplaced fracture. Within this limitation, knee joint and ankle mortise grossly intact. Medial joint space loss at the knee consistent with degenerative change. No displaced fracture or acute malalignment. Diffuse subcutaneous edema noted. Chronic periosteal thickening along the fibula may relate to venous stasis. Prominent inferior calcaneal enthesophyte. IMPRESSION: 1. Osteopenia limits evaluation for nondisplaced fracture. Within this limitation, no evidence of acute osseous injury. 2. Medial compartment degenerative change of the knee. 3. Suggestion of venous stasis. Electronically signed by: Ke Lewis M.D. 04/04/2017 3:11 PM Dictated Date/Time: 04/04/2017 3:09 PM
--- NOTE | 2017-04-04 15:14 | DIAGNOSTIC IMAGING REPORT ---
LEFT FOOT 2 VIEWS CLINICAL HISTORY: 56 years-old Male presenting with pain/swelling - r/o osseous involvement. TECHNIQUE: Frontal and lateral views of the left foot COMPARISON: Correlation made to plain radiographs of the right foot performed same day. FINDINGS: Osteopenia. This limits evaluation for nondisplaced fracture. Within this limitation, no fracture or malalignment. Mild degenerative changes at the first metatarsophalangeal joint and interphalangeal joint of the first toe. Linear radiodensity adjacent to the tuft of the distal phalanx of the first toe may represent a foreign body. Prominent inferior calcaneal enthesophyte. Diffuse subcutaneous edema. IMPRESSION: 1. Osteopenia, which limits evaluation for nondisplaced fracture. Within the limitation, no acute osseous injury. 2. Radiodensity adjacent to the tuft of the distal phalanx of the first toe may represent foreign body. 3. Degenerative changes of the first metatarsophalangeal joint and interphalangeal joint of the first toe. Electronically signed by: Ke Lewis M.D. 04/04/2017 3:13 PM Dictated Date/Time: 04/04/2017 3:11 PM
--- NOTE | 2017-04-04 15:16 | DIAGNOSTIC IMAGING REPORT ---
RIGHT FOOT 2 VIEWS CLINICAL HISTORY: Right foot and swelling. FINDINGS: AP and crosstable lateral views of the right foot are obtained. No prior studies are available for comparison at the time of dictation. The skeletal structures are heterogeneously osteopenic. No fracture is seen. No bony erosion or periostitis is identified. Mild arthritic change is present the first metatarsophalangeal joint. There is a large plantar calcaneal enthesophyte. Degenerative spurring is seen along the dorsal aspect of the tarsal bones. Large enthesophytes are also seen at the base of the fifth metatarsal. There is marked soft tissue edema throughout the foot. A 1.4 cm thin linear metallic foreign body is seen along the medial aspect of the midfoot at the base of the first metatarsal. IMPRESSION: 1. There is diffuse soft tissue edema identified throughout the right foot. Correlate clinically for evidence of cellulitis. 2. Osteopenia, arthritic change, and large plantar heel spur as above. No acute bony abnormality is seen. 3. A 1.4 cm thin linear/metallic foreign body is present within the soft tissues of the medial midfoot. Electronically signed by: Neville Izquierdo M.D. 04/04/2017 3:15 PM Dictated Date/Time: 04/04/2017 3:11 PM
--- NOTE | 2017-04-04 15:18 | DIAGNOSTIC IMAGING REPORT ---
CHEST 1 VW FRONT-NOT PORTABLE HISTORY: Leg swelling. edema COMPARISON: Chest 01/10/2017. FINDINGS: The heart remains moderately enlarged. Left-sided pacemaker/defibrillator is again noted. No pneumothorax. No pleural effusions. Right apical density remains unchanged. This favors the overlapping anterior first rib. No new focal lung consolidations. Mild central pulmonary vascular congestion without overt edema. IMPRESSION: 1. Mild central pulmonary vascular congestion without overt edema. 2. No change in the right apical density. This favors the overlapping right anterior first rib. Nonemergent follow-up PA and lateral views the chest is recommended with apical lordotic views. 3. Stable moderate cardiomegaly. Electronically signed by: Kike Shelton M.D. 04/04/2017 3:17 PM Dictated Date/Time: 04/04/2017 3:08 PM
[2017-04-04] MEDS ORDERED: VANCOMYCIN INJ 2,250 MG in SODIUM CHLORIDE 0.9% 500ML 500 ML IV STA (16:03)
[2017-04-04] MEDS ORDERED: FUROSEMIDE 40 MG/4 ML VIAL IV STA (16:03)
[2017-04-04] MEDS ORDERED: AZTREONAM IV 2,000 MG in DEXTROSE 5% 100ML 100 ML IV STA (16:47)
[2017-04-04] MEDS ORDERED: ACETAMINOPHEN 500 MG TAB PO PRN (18:15)
[2017-04-04] MEDS ORDERED: ALBUTEROL HFA 8 GM INHALER INH PRN (18:15)
[2017-04-04] MEDS ORDERED: NITROGLYCERIN 0.4 MG SL PER TAB CHARGE UT PRN (18:15)
[2017-04-04] MEDS ORDERED: VANCOMYCIN CONSULT ACTIVE PRN (19:00)
--- NOTE | 2017-04-04 19:04 | History and Physical ---
History & Physical Date & Time of Service: Apr 04, 2017 at 18:55 Chief Complaint: Cellulitis, Chronic Afib, Htn, Diabetes Mellitis 2 Primary Care Physician: Roberta Xiao History of Present Illness Source: patient This is a 56 year old M with multiple past medical conditions that have been chronic including obesity, Diabetes, atrial fibrillation on apixaban and ICD, with recurrent episodes of lower extremity swelling and inflammation. Patient recently from senior living facility after a hospital admission from 2016 to 01/15/2017. Patient's main complaints have been recent drainage from lower extremities and leg swelling. Has been taking acetaminophen and codeine chronically for leg pains and lower back pain. In the ED, X rays of the feet did not show evidence of fractures however possible metallic fragments in feet bilaterally. Patient has poor renal function possibly precluding him from imaging studies with IV contrast. Reports multiple allergies to substances including IV antibiotics and Benadryl. Denies chest pain of shortness of breath but has elevated BNP. Also notes of 2 days or worsening visual impairments. As per ED physician, it was technically difficult to perform funduscopy however he performed bedside ultrasound which notes debris in vitreous of right eye and concerns for vitreous hemorrhage of right eye. Case discussed at length with Ophthalmology services Dr. Zamora [phone] for consultation. Past Medical/Surgical History Medical Problems: (1) CAD (coronary artery disease) Status: Chronic (2) Chronic a-fib Status: Chronic (3) Diabetes mellitus, type II Status: Chronic (4) Dyslipidemia Status: Chronic (5) Heart attack Status: Resolved (6) History of pulmonary embolus (PE) Status: Chronic (7) History of stroke Status: Chronic (8) HTN (hypertension) Status: Chronic (9) Ischemic cardiomyopathy Status: Resolved (10) Obstructive hydrocephalus Status: Chronic (11) MERY (obstructive sleep apnea) Status: Chronic (12) Pulmonary embolism Status: Resolved (13) Stage 3 chronic kidney disease Status: Chronic (14) Systolic CHF Status: Chronic Surgical Problems: (1) History of cholecystectomy Permanent Comment: 08/23/16 Status: Resolved Family History No pertinent family history Social History Smoking Status: Never Smoker Drug Use: none Marital Status: Housing status: other Occupational Status: retired Immunizations History of Influenza Vaccine: Unknown Multi-Drug Resistant 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 Allergies Coded Allergies: Amoxicillin (Verified Allergy, Unknown, unknown, 04/04/17) Cephalosporins (Verified Allergy, Unknown, unknown, 04/04/17) Ciprofloxacin (Verified Allergy, Unknown, unknown, 04/04/17) Clindamycin (Verified Allergy, Unknown, unknown, 04/04/17) Iodinated Diagnostic Agents (Verified Allergy, Unknown, unknown, 04/04/17) Penicillins (Unverified Allergy, Unknown, unknown, 04/04/17) Perflutren (Verified Allergy, Unknown, PERFLUTREN LIPID MICROSPHERES, 04/04) Home Medications Scheduled Apixaban (Eliquis), 5 MG PO BID Aspirin (Aspirin Chewable), 81 MG PO QAM Atorvastatin (Lipitor), 40 MG PO QPM Carvedilol (Coreg), 25 MG PO BID Esomeprazole Magnesium (Nexium), 40 MG PO DAILY Fentanyl (Fentanyl), 12 MCG TOP [id number] Insulin Aspart (Novolog), 15 UNITS SQ TID Insulin Detemir (Levemir), 35 UNITS SQ BID Levothyroxine Sodium (Synthroid), 25 MCG PO DAILY Lisinopril (Lisinopril), 2.5 MG PO DAILY Magnesium Hydroxide (Milk of Magnesia), 30 ML PO UD Melatonin (Melatonin), 5 MG PO HS Multiple Vitamins W/ Minerals (Theragran-M), 1 TAB PO QAM Polyethylene Glycol 3350 (Miralax), 17 GM PO DAILY Potassium Chloride (Micro-K Ext Rel), 10 MEQ PO DAILY Sennosides-Docusate Sodium (Sennalax-S), 2 TABS PO HS Torsemide (Demadex), 40 MG PO DAILY Torsemide (Demadex), 60 MG PO DAILY Trazodone Hcl (Trazodone), 50 MG PO HS Ursodiol (Ursodiol), 300 MG PO BID Venlafaxine Hcl (Venlafaxine Extended Rel), 75 MG PO DAILY Scheduled PRN Acetaminophen (Tylenol), 500 MG PO Q4 PRN for Pain or Fever Acetaminophen/Codeine (Tylenol W/Codeine #3), 1 TAB PO Q6 PRN for Pain Albuterol Hfa (Ventolin Hfa), 2 PUFFS INH Q6H PRN for Wheezing Bisacodyl (Dulcolax), 1 SUPP AK Q24H PRN for no bm past 2 days Nitroglycerin (Nitrostat), 0.4 MG UT UD PRN for Chest Pain Ondansetron Hcl (Zofran), 4-8 MG PO Q8 PRN for Nausea Miscellaneous Medications Glucagon (Glucagon Emergency Kit) Review of Systems Constitutional: No fever Eyes: + worsening of vision, + eye pain, No redness, No discharge, No diplopia ENT: No hearing loss, No sore throat Respiratory: No cough, No shortness of breath Cardiovascular: + edema, No chest pain, No palpitations Abdomen: No pain Musculoskeletal: + swelling (bilateral lower extremities) Genitourinary - Male: No hematuria Neurologic: No numbness/tingling Psychiatric: No substance abuse Hematologic / Lymphatic: No abnormal bleeding/bruising Integumentary: No rash Physical Exam Vital Signs Date Time Temp Pulse Resp B/P (MAP) Pulse Ox O2 Delivery O2 Flow Rate FiO2 04/04/17 17:49 63 16 196/113 98 Room Air 04/04/17 16:30 64 04/04/17 16:00 65 12 182/109 94 Room Air 04/04/17 15:10 62 18 162/91 97 04/04/17 15:01 38.1 111 20 124/95 98 2.0 04/04/17 12:42 63 04/04/17 12:38 68 20 146/75 95 Room Air 04/04/17 11:12 36.7 68 20 150/89 99 Room Air General Appearance: no apparent distress Head: normocephalic, atraumatic Eyes: normal inspection, PERRL, EOMI ENT: normal ENT inspection, pharynx normal Neck: supple, thyroid normal, no JVD, trachea midline Respiratory/Chest: chest non-tender, lungs clear, normal breath sounds, no respiratory distress, no accessory muscle use Cardiovascular: regular rate, rhythm Abdomen/GI: normal bowel sounds, non tender, soft Back: normal inspection Extremities/Musculoskelatal: + pertinent finding (bilateral lower extremity edema with swelling greater in the right leg than in the left) Neurologic/Psych: no motor/sensory deficits, alert, oriented x 3 Skin: + pertinent finding (lower extremities with areas of skin healing from blisters) Diagnostics Laboratory Results Results Past 24 Hours Test 04/04/17 12:35 Range/Units White Blood Count 7.36 4.8-10.8 K/uL Red Blood Count 3.72 4.7-6.1 M/uL Hemoglobin 9.6 14.0-18.0 g/dL Hematocrit 30.5 42-52 % Mean Corpuscular Volume 82.0 80-100 fL Mean Corpuscular Hemoglobin 25.8 25-34 pg Mean Corpuscular Hemoglobin Concent 31.5 32-36 g/dl Platelet Count 222 130-400 K/uL Mean Platelet Volume 9.3 7.4-10.4 fL Neutrophils (%) (Auto) 71.3 % Lymphocytes (%) (Auto) 16.4 % Monocytes (%) (Auto) 8.6 % Eosinophils (%) (Auto) 2.9 % Basophils (%) (Auto) 0.5 % Neutrophils # (Auto) 5.25 1.4-6.5 K/uL Lymphocytes # (Auto) 1.21 1.2-3.4 K/uL Monocytes # (Auto) 0.63 0.11-0.59 K/uL Eosinophils # (Auto) 0.21 0-0.5 K/uL Basophils # (Auto) 0.04 0-0.2 K/uL RDW Standard Deviation 48.8 36.4-46.3 fL RDW Coefficient of Variation 16.1 11.5-14.5 % Immature Granulocyte % (Auto) 0.3 % Immature Granulocyte # (Auto) 0.02 0.00-0.02 K/uL Sodium Level 140 136-145 mmol/L Potassium Level 4.3 3.5-5.1 mmol/L Chloride Level 106 98-107 mmol/L Carbon Dioxide Level 29 21-32 mmol/L Anion Gap 5.0 3-11 mmol/L Blood Urea Nitrogen 34 7-18 mg/dl Creatinine 2.20 0.60-1.40 mg/dl Est Creatinine Clear Calc Drug Dose 65.4 ml/min Estimated GFR () 37.2 Estimated GFR (Non- 32.1 BUN/Creatinine Ratio 15.3 10-20 Random Glucose 109 70-99 mg/dl Calcium Level 8.4 8.5-10.1 mg/dl Total Bilirubin 0.5 0.2-1 mg/dl Aspartate Amino Transf (AST/SGOT) 11 15-37 U/L Alanine Aminotransferase (ALT/SGPT) 15 12-78 U/L Alkaline Phosphatase 200 45-117 U/L Pro-B-Type Natriuretic Peptide 4695 0-900 pg/ml Total Protein 7.8 6.4-8.2 gm/dl Albumin 2.8 3.4-5.0 gm/dl Globulin 5.0 2.5-4.0 gm/dl Albumin/Globulin Ratio 0.6 0.9-2 Diagnostic Radiology CHEST 1 VW FRONT-NOT PORTABLE 1. Mild central pulmonary vascular congestion without overt edema. 2. No change in the right apical density. This favors the overlapping right anterior first rib. Nonemergent follow-up PA and lateral views the chest is recommended with apical lordotic views. 3. Stable moderate cardiomegaly. RIGHT TIBIA/FIBULA 2 VIEWS ROUTINE Osteopenia. This limits evaluation for nondisplaced fracture. Within this limitation, no gross evidence of acute osseous injury. LEFT TIBIA/FIBULA 2 VIEWS ROUTINE 1. Osteopenia limits evaluation for nondisplaced fracture. Within this limitation, no evidence of acute osseous injury. 2. Medial compartment degenerative change of the knee. 3. Suggestion of venous stasis. RIGHT FOOT 2 VIEWS 1. There is diffuse soft tissue edema identified throughout the right foot. Correlate clinically for evidence of cellulitis. 2. Osteopenia, arthritic change, and large plantar heel spur as above. No acute bony abnormality is seen. 3. A 1.4 cm thin linear/metallic foreign body is present within the soft tissues of the medial midfoot. LEFT FOOT 2 VIEWS IMPRESSION: 1. Osteopenia, which limits evaluation for nondisplaced fracture. Within the limitation, no acute osseous injury. 2. Radiodensity adjacent to the tuft of the distal phalanx of the first toe may represent foreign body. 3. Degenerative changes of the first metatarsophalangeal joint and interphalangeal joint of the first toe. Impression Assessment and Plan 56 year old M with multiple past medical conditions that have been chronic including obesity, Diabetes, atrial fibrillation on apixaban and ICD, with recurrent episodes of lower extremity swelling and inflammation with concern for cellulitis and possible metallic fragments in feet based on X ray imaging and possible vitreous hemorrhage of right eye Vision -possible right eye vitreous hemorrhage -awaiting full ophthalmology consult evaluation, at this time there does not seem to be a contraindication in continuing apixaban for history of atrial fibrillation while awaiting for possibl ophthalmology intervention Lower extremity swelling and erythema -no evidence of osteomyelitis on X ray but concern for metallic fragments vs artifact -give TDAP -has reported allergies listed for IV contrast and poor renal function, will further explore lower extremity with CT scan without contrast -changed home medications from torsemide to IV Lasix BID -Cellulitis: received 2250 mg of Vancomycin IV and 2000 mg of Aztreonam IV mg in the ER, will need to renally dose medications as GFR < 30 CKD -monitor for vancomycin toxicity, will need vancomycin troughs during hospital course -monitor urine output Cardiac -BNP > 4000 however CXR and physical exam does not suggest pulmonary congestion -continue diuretics -daily weights -continue with carvedilol and aspirin -has ICD, check EKG for this admission -continue with apixaban -continue with home dosed blood pressure medications DM -insulin, check fingerstick glucose, check HbA1c Thyroid -continue with Levothyroxine Back pain -acetaminophen vs acetaminophen with codeine prn VTE Prophylaxis VTE Risk Assessment Done? Y/N: Yes Risk Level: Moderate
[2017-04-04] MEDS ORDERED: DIPHTHERIA/TETANUS/PERTUSSIS 0.5 ML SYR/VIAL IM. ONE (19:45)
[2017-04-04] MEDS: FUROSEMIDE INJ 40 MG in SYRINGE 0 ML IV SCH (20:10)
[2017-04-04] MEDS: ACETAMINOPHEN/CODEINE 300/30MG TAB PO PRN (20:11)
[2017-04-04] MEDS: CARVEDILOL 25 MG TAB PO SCH (20:11)
[2017-04-04] MEDS: APIXABAN 2.5 MG TAB PO SCH (20:12)
[2017-04-04] MEDS: ATORVASTATIN 40 MG TAB PO SCH (20:13)
[2017-04-04] MEDS: INSULIN DETEMIR SQ SCH (20:18)
[2017-04-04] MEDS: INSULIN ASPART 100 UNITS/ML 3 ML PEN SQ SCH (20:19)
[2017-04-04 21:22] VITALS: BP 189/97; PULSE 60; TEMP 36.6; O2SAT 97; Ht 203.2 cm; Wt 152.0 kg
--- NOTE | 2017-04-04 21:27 | DIAGNOSTIC IMAGING REPORT ---
CT OF THE LEFT TIBIA AND FIBULA, ANKLE AND FOOT WITHOUT CONTRAST CLINICAL HISTORY: Left lower extremity swelling. COMPARISON STUDY: Left tibia and fibula and left foot radiograph performed earlier today. TECHNIQUE: Axial images of the left tibia and fibula, ankle and foot were obtained without IV contrast. Sagittal and coronal reconstructions were viewed. FINDINGS: Extensive subcutaneous edema of the left lower leg, ankle and foot is noted. There is no osteolysis within the visualized skeletal structures to suggest osteomyelitis. A small to moderate left knee joint effusion is noted. Osteopenia is noted. There is moderate medial compartment joint space narrowing of the left knee. No fluid collection is identified to suggest an abscess on this unenhanced exam. A 4 mm linear metallic density distal to the distal tuft of the left great toe is consistent with a foreign body. No additional foreign bodies are present. There is mild arthritis within multiple articulations of the left foot. Extensive muscular atrophy is noted. IMPRESSION: 1. No acute fracture or evidence of osteomyelitis within the left lower leg, ankle or foot. 2. 4 mm metallic foreign body distal to the distal tuft of the left great toe. 3. Extensive subcutaneous edema of the left lower leg, ankle and foot. No fluid collection identified to suggest abscess on this unenhanced exam. 4. Muscular atrophy and osteopenia which may reflect disuse osteopenia. 5. Extensive vascular calcification. Electronically signed by: Sean Berrios M.D. 04/04/2017 9:26 PM Dictated Date/Time: 04/04/2017 9:13 PM
--- NOTE | 2017-04-04 21:35 | DIAGNOSTIC IMAGING REPORT ---
CT OF THE RIGHT TIBIA AND FIBULA, ANKLE AND FOOT WITHOUT CONTRAST CLINICAL HISTORY: Right lower extremity swelling. COMPARISON STUDY: Right foot and right tibia and fibula radiographs performed earlier today. TECHNIQUE: Images of the right tibia, fibula, ankle and foot were obtained without IV contrast. Sagittal and coronal reconstructions were viewed. FINDINGS: There is extensive subcutaneous edema of the right lower leg, ankle and foot. There is no fluid collection to suggest an abscess on this unenhanced exam. Osteopenia is noted as well as extensive muscular atrophy. There is moderate vascular calcification. There is made of a 1.4 cm linear metallic density within the subcutaneous tissues along the medial right midfoot. Alignment of the right ankle is anatomic. No acute fracture is evident. There is no CT evidence for osteomyelitis within the visualized skeletal structures. IMPRESSION: 1. No acute fracture or evidence of osteomyelitis within the right lower leg, ankle or foot. 2. 1.4 cm linear metallic foreign body within the subcutaneous tissues along the medial right midfoot. 3. Extensive subcutaneous edema of the right lower leg, ankle and foot. 4. Osteopenia which may reflect disuse osteopenia. Extensive muscular atrophy. Electronically signed by: Sean Berrios M.D. 04/04/2017 9:33 PM Dictated Date/Time: 04/04/2017 9:26 PM
--- NOTE | 2017-04-04 22:52 | Pharmacy Progress Note ---
Pharmacy Antibiotic Consult Date of Service: Apr 04, 2017. Pharmacy Dosing Scope Pharmacy is consulted to initiate vancomycin IV dosing therapy, order appropriate labs and adjust drug dose/frequency. Subjective The patient is a 56 year old male admitted on Apr 04, 2017 at 17:16. Objective Height (Feet): 6 Height (Inches): 8.00 Weight (Kilograms): 168.100 Lab Results (24hrs): Test 04/04/17 12:35 04/04/17 19:02 White Blood Count 7.36 K/uL (4.8-10.8) Red Blood Count 3.72 M/uL (4.7-6.1) Hemoglobin 9.6 g/dL (14.0-18.0) Hematocrit 30.5 % (42-52) Mean Corpuscular Volume 82.0 fL (80-100) Mean Corpuscular Hemoglobin 25.8 pg (25-34) Mean Corpuscular Hemoglobin Concent 31.5 g/dl (32-36) Platelet Count 222 K/uL (130-400) Mean Platelet Volume 9.3 fL (7.4-10.4) Neutrophils (%) (Auto) 71.3 % Lymphocytes (%) (Auto) 16.4 % Monocytes (%) (Auto) 8.6 % Eosinophils (%) (Auto) 2.9 % Basophils (%) (Auto) 0.5 % Neutrophils # (Auto) 5.25 K/uL (1.4-6.5) Lymphocytes # (Auto) 1.21 K/uL (1.2-3.4) Monocytes # (Auto) 0.63 K/uL (0.11-0.59) Eosinophils # (Auto) 0.21 K/uL (0-0.5) Basophils # (Auto) 0.04 K/uL (0-0.2) RDW Standard Deviation 48.8 fL (36.4-46.3) RDW Coefficient of Variation 16.1 % (11.5-14.5) Immature Granulocyte % (Auto) 0.3 % Immature Granulocyte # (Auto) 0.02 K/uL (0.00-0.02) Sodium Level 140 mmol/L (136-145) Potassium Level 4.3 mmol/L (3.5-5.1) Chloride Level 106 mmol/L (98-107) Carbon Dioxide Level 29 mmol/L (21-32) Anion Gap 5.0 mmol/L (3-11) Blood Urea Nitrogen 34 mg/dl (7-18) Creatinine 2.20 mg/dl (0.60-1.40) Est Creatinine Clear Calc Drug Dose 65.4 ml/min Estimated GFR () 37.2 Estimated GFR (Non- 32.1 BUN/Creatinine Ratio 15.3 (10-20) Random Glucose 109 mg/dl (70-99) Calcium Level 8.4 mg/dl (8.5-10.1) Total Bilirubin 0.5 mg/dl (0.2-1) Aspartate Amino Transf (AST/SGOT) 11 U/L (15-37) Alanine Aminotransferase (ALT/SGPT) 15 U/L (12-78) Alkaline Phosphatase 200 U/L (45-117) Pro-B-Type Natriuretic Peptide 4695 pg/ml (0-900) Total Protein 7.8 gm/dl (6.4-8.2) Albumin 2.8 gm/dl (3.4-5.0) Globulin 5.0 gm/dl (2.5-4.0) Albumin/Globulin Ratio 0.6 (0.9-2) Bedside Glucose 112 mg/dl (70-99) Assessment & Plan Patient started on vancomycin and zosyn for cellulitis infection. BC x 2 are pending. Vancomycin: * LD of vancomycin 2250 mg (~13 mg/kg) x 1 given * Will start MD of vancomycin 1750 mg iv q 18 hrs to achieve an estimated trough of ~15 mcg/ml * Estimated kinetics: t1/2~14 hr, ke~0.05 hr-1, CrCl 65 ml/min * Will plan to obtain a trough prior to the 2200 on 04/06 to ensure therapeutic; note this will be before steady state since patient is at risk for drug accumulation due to elevated BMI >35 kg/m2 Pharmacy will continue to follow and will adjust dose/frequency as necessary. Thank you
[2017-04-05 00:49] VITALS: BP 172/89; PULSE 63; TEMP 36.6; O2SAT 98
[2017-04-05] MEDS: AZTREONAM IV 2,000 MG in DEXTROSE 5% 100ML 100 ML IV SCH ×3 (02:07→18:22)
[2017-04-05] MEDS: ACETAMINOPHEN/CODEINE 300/30MG TAB PO PRN ×2 (04:21→19:49)
[2017-04-05 07:26] VITALS: BP 138/85; PULSE 62; TEMP 36.7; O2SAT 96
[2017-04-05 07:49] LABS: BASO % 0.5 %; BASO ABS # 0.04 K/uL (0-0.2); COMPLETE YES; HEMATOCRIT 31.2 % (42-52); IG% 0.1 %; LYMPH % 15.5 %; LYMPH ABS # 1.17 K/uL (1.2-3.4); MEAN CELL VOLUME 83.9 fL (80-100); MEAN CORPUSCULAR HEMOGLOBIN 25.3 pg (25-34); MEAN CORPUSCULAR HGB CONC 30.1 g/dl (32-36); MEAN PLATELET VOLUME 9.6 fL (7.4-10.4); MONO % 7.8 %; NEUT % 72.1 %; PLATELET COUNT 226 K/uL (130-400); RED BLOOD COUNT 3.72 M/uL (4.7-6.1); WHITE BLOOD COUNT 7.55 K/uL (4.8-10.8)
[2017-04-05 08:13] LABS: BUN/CREATININE RATIO 14.7 (10-20); CALCIUM 8.4 mg/dl (8.5-10.1); CREATININE 2.3 mg/dl (0.60-1.40); POTASSIUM 4.2 mmol/L (3.5-5.1)
[2017-04-05 08:16] LABS: ALB/GLOB RATIO 0.5 (0.9-2)
[2017-04-05] MEDS: LEVOTHYROXINE 25 MCG TAB PO SCH (09:09)
[2017-04-05] MEDS: ASPIRIN 81 MG ECTAB PO SCH (09:09)
[2017-04-05] MEDS: POTASSIUM CHLORIDE 10 MEQ TABCR PO SCH (09:09)
[2017-04-05] MEDS: FUROSEMIDE INJ 40 MG in SYRINGE 0 ML IV SCH ×2 (09:09→19:51)
[2017-04-05] MEDS: APIXABAN 2.5 MG TAB PO SCH ×2 (09:10→19:53)
[2017-04-05] MEDS: PANTOprazole SOD 40 MG TAB PO SCH (09:10)
[2017-04-05] MEDS: VENLAFAXINE HCL XR 75 MG CAPXR PO SCH (09:10)
[2017-04-05] MEDS: CARVEDILOL 25 MG TAB PO SCH ×2 (09:10→19:52)
[2017-04-05] MEDS: LISINOPRIL 2.5 MG TAB PO SCH (09:10)
[2017-04-05] MEDS: INSULIN ASPART 100 UNITS/ML 3 ML PEN SQ SCH ×4 (09:19→21:19)
[2017-04-05] MEDS: INSULIN DETEMIR SQ SCH ×2 (09:19→21:17)
[2017-04-05] MEDS: VANCOMYCIN INJ 1,750 MG in SODIUM CHLORIDE 0.9% 500ML 500 ML IV SCH (10:46)
--- NOTE | 2017-04-05 15:05 | ECHOCARDIOGRAM REPORT ---
*NOTICE TO RECEIVING [employer] [employer] This information is strictly Confidential and protected under [place] law. [place] law prohibits you from making any further disclosure of this information unless further disclosure is expressly permitted by the written consent of the person to whom it pertains or is authorized by law. A general authorization for the release of medical or other information is not sufficient for this purpose. Hospital accepts no responsibility if the information is made available to any other person, INCLUDING THE PATIENT. Interpretation Summary * Name: MARICEL BILLY Study Date: 04/05/2017 08:12 AM BP: 172/89 mmHg * Patient Location: .[id number]\W460\S\2 HR: 63 * : 1960 (M/d/yyyy) Gender: Male Height: 78 in * Age: 56 yrs Ethnicity: [place] Weight: 370 lb * Ordering Physician: Tonny Mason * Referring Physician: Roberta Xiao * Performed By: Kelvin Feliciano RCS * * Reason For Study: CHF * BSA: 2.9 m2 * -- Conclusions -- * Left ventricular systolic function is normal. * No regional wall motion abnormalities noted. * Ejection Fraction = 55-60%. * There is mild concentric left ventricular hypertrophy. * The left atrium is severely dilated. Procedure Details * A contrast injection of Definity was performed to improve assessment of LV function. * Contrast was injected into an intravenous site in the right arm. * One vial of Definity ultrasound contrast was diluted in normal saline to a total volume of 10 ml. A total of '4' ml of solution was administered during imaging. * Lot # [id number] of Definity utilized for procedure. * Expiration date 1AUG18. Left Ventricle * The left ventricle is grossly normal size. * There is mild concentric left ventricular hypertrophy. * Ejection Fraction = 55-60%. * Left ventricular systolic function is normal. * No regional wall motion abnormalities noted. Right Ventricle * The right ventricle is not well visualized. * Right ventricular function cannot be assessed due to poor image quality. Atria * The left atrium is severely dilated. * Right atrium not well visualized. Mitral Valve * The mitral valve is grossly normal. * Evaluation of regurgitation is inadequate. Tricuspid Valve * The tricuspid valve is not well visualized. Aortic Valve * The aortic valve is not well visualized. * The aortic valve opens well. * No hemodynamically significant valvular aortic stenosis. * There is no significant aortic regurgitation. Pulmonic Valve * The pulmonary valve is not well seen, but the Doppler examination is normal without significant regurgitation or stenosis. Great Vessels * The aortic root is normal size. * The pulmonary is not well visualized. Pericardium/Pleural * There is no pericardial effusion. Great Vessels * The inferior vena cava is not well visualized. MMode 2D Measurements and Calculations IVSd 1.5 cm LVIDd 7.7 cm LVIDs 5.5 cm LVPWd 1.5 cm IVS/LVPW 1.0 FS 28.1 % EDV(Teich) 315.9 ml ESV(Teich) 149.4 ml EF(Teich) 52.7 % EDV(cubed) 455.6 ml ESV(cubed) 169.3 ml EF(cubed) 62.8 % LV mass(C)d 639.1 grams LV mass(C)dI 217.9 grams/m\S\2 SV(Teich) 166.6 ml SI(Teich) 56.8 ml/m\S\2 SV(cubed) 286.4 ml SI(cubed) 97.7 ml/m\S\2 Ao root diam 3.3 cm Ao root area 8.6 cm\S\2 LVOT diam 2.4 cm LVOT area 4.5 cm\S\2 EDV(MOD-sp4) 172.2 ml ESV(MOD-sp4) 72.2 ml EF(MOD-sp4) 58.1 % EDV(MOD-sp2) 172.5 ml ESV(MOD-sp2) 54.1 ml EF(MOD-sp2) 68.6 % SV(MOD-sp4) 100.1 ml SI(MOD-sp4) 34.1 ml/m\S\2 SV(MOD-sp2) 118.4 ml SI(MOD-sp2) 40.4 ml/m\S\2 Doppler Measurements and Calculations MV E max manisha 122.2 cm/sec MV dec time 0.19 sec Ao V2 max 101.2 cm/sec Ao max PG 4.1 mmHg Ao max PG (full) -0.58 mmHg MOON(V,A) 4.8 cm\S\2 MOON(V,D) 4.8 cm\S\2 LV V1 max PG 4.7 mmHg LV V1 max 108.2 cm/sec
--- NOTE | 2017-04-05 15:06 | Progress Note ---
Subjective Date of Service: Apr 05, 2017. Subjective Pt evaluation today including: conversation w/ patient, physical exam, lab review, review of studies, review of inpatient medication list Saw/examined the patient in room 460 He was complaining this morning about being in the hospital and wanted to sign out AMA after speaking with him, he is agreeable to the stay in the hospital Tells me his legs are both hurting due to the wounds/ulcerations Tells me he has had vision issues for a few years, but it worsened over the weekend Denies fevers/chills Problem List Medical Problems: (1) Altered mental status Status: Acute (2) Anemia Status: Acute (3) Anemia Status: Acute (4) Cellulitis Status: Acute (5) Cellulitis Status: Acute (6) CHF (congestive heart failure) Status: Acute (7) Chronic a-fib Status: Chronic (8) Confusion Status: Acute (9) Deep vein thrombosis Status: Acute (10) Diabetes mellitus, type II Status: Chronic (11) HTN (hypertension) Status: Chronic (12) Hypoglycemia Status: Acute (13) Hypoxia Status: Acute (14) Stage 3 chronic kidney disease Status: Chronic (15) Vitreous hemorrhage Status: Acute Review of Systems Constitutional: No fever, No chills Eyes: + worsening of vision Respiratory: No cough, No sputum, No shortness of breath Cardiac: + edema, No chest pain Abdomen: No pain, No nausea, No vomiting, No diarrhea Musculoskeletal: + joint pain (b/l LE pain) Medications Current Inpatient Medications Medications (Trade) Dose Ordered Sig/Miguel Route Start Time Stop Time Status Last Admin Dose Admin Acetaminophen (Tylenol Tab) 500 mg Q4 PRN PO 04/04/17 18:15 05/04/17 18:14 Albuterol (Ventolin Hfa Inhaler) 2 puffs Q6H PRN INH 04/04/17 18:15 05/04/17 18:14 Aspirin (Ecotrin Tab) 81 mg QAM PO 04/05/17 08:00 05/05/17 08:59 04/05/17 09:09 81 MG Atorvastatin Calcium (Lipitor Tab) 40 mg QPM PO 04/04/17 21:00 05/04/17 20:59 04/04/17 20:13 40 MG Carvedilol (Coreg Tab) 25 mg BID PO 04/04/17 20:00 05/04/17 20:59 04/05/17 09:10 25 MG Insulin Aspart (novoLOG ASPART) SLIDING SCALE ACHS SQ 04/04/17 22:00 05/04/17 21:59 04/05/17 13:39 6 UNITS Levothyroxine Sodium (Synthroid Tab) 25 mcg DAILYBB PO 04/05/17 06:30 05/05/17 06:29 04/05/17 09:09 25 MCG Lisinopril (Zestril Tab) 2.5 mg DAILY PO 04/05/17 08:00 05/05/17 08:59 04/05/17 09:10 2.5 MG Nitroglycerin (Nitrostat Tab) 0.4 mg UD PRN UT 04/04/17 18:15 05/04/17 18:14 Potassium Chloride (Klor-Con M10) 10 meq DAILY PO 04/05/17 08:00 05/05/17 08:59 04/05/17 09:09 10 MEQ Venlafaxine HCl (effeXOR EXTENDED REL CAP) 75 mg DAILY PO 04/05/17 08:00 05/05/17 08:59 04/05/17 09:10 75 MG Apixaban (Eliquis Tab) 5 mg BID PO 04/04/17 20:00 05/04/17 20:59 04/05/17 09:10 5 MG Pantoprazole Sodium (Protonix Tab) 40 mg DAILY PO 04/05/17 08:00 05/05/17 08:59 04/05/17 09:10 40 MG Insulin Detemir (Levemir Insulin) 35 units BID SQ 04/04/17 20:00 05/04/17 20:59 04/05/17 09:19 35 UNITS Vancomycin HCl 1750 mg/Sodium Chloride 535 ml @ 125 mls/hr Q18H IV 04/05/17 10:00 04/15/17 09:59 04/05/17 10:46 125 MLS/HR Aztreonam 2000 mg/ Dextrose 120 ml @ 100 mls/hr Q8H IV 04/05/17 02:00 04/15/17 01:59 04/05/17 10:46 100 MLS/HR Furosemide 40 mg/ Syringe 4 ml @ 4 mls/min BID IV 04/04/17 20:00 05/04/17 20:59 8/23/17 09:09 4 MLS/MIN Vancomycin HCl (Consult) 1 ea UD PRN N/A 04/04/17 19:00 05/04/17 18:59 Acetaminophen/ Codeine Phosphate (Tylenol w/ Codeine #3 Tab) 1 tab Q6 PRN PO 04/04/17 19:45 05/04/17 19:44 04/05/17 04:21 1 TAB Objective Vital Signs Date Time Temp Pulse Resp B/P (MAP) Pulse Ox O2 Delivery O2 Flow Rate FiO2 04/05/17 08:00 Room Air 04/05/17 07:26 36.7 62 17 138/85 (102) 96 Room Air 04/05/17 00:49 36.6 63 18 172/89 (116) 98 Room Air 04/05/17 00:00 Room Air 04/04/17 21:22 36.6 60 18 189/97 97 Room Air 04/04/17 17:49 63 16 196/113 98 Room Air 04/04/17 16:30 64 04/04/17 16:00 65 12 182/109 94 Room Air 04/04/17 15:10 62 18 162/91 97 04/04/17 15:01 38.1 111 20 124/95 98 2.0 Physical Exam General Appearance: + obese ENT: hearing grossly normal Respiratory/Chest: chest non-tender, lungs clear, normal breath sounds, no respiratory distress, no accessory muscle use Cardiovascular: no edema, no murmur, + irregularly irregular Abdomen: normal bowel sounds, non tender, soft Extremities: + pertinent finding (b/l LE swelling, skin tightening, warm to touch b/l, there are ulcerations noted throughout) Neurologic/Psychiatric: alert Laboratory Results Last 24 Hours Test 04/04/17 19:02 04/05/17 07:19 04/05/17 07:32 04/05/17 11:19 Bedside Glucose 112 mg/dl 127 mg/dl 123 mg/dl White Blood Count 7.55 K/uL Red Blood Count 3.72 M/uL Hemoglobin 9.4 g/dL Hematocrit 31.2 % Mean Corpuscular Volume 83.9 fL Mean Corpuscular Hemoglobin 25.3 pg Mean Corpuscular Hemoglobin Concent 30.1 g/dl Platelet Count 226 K/uL Mean Platelet Volume 9.6 fL Neutrophils (%) (Auto) 72.1 % Lymphocytes (%) (Auto) 15.5 % Monocytes (%) (Auto) 7.8 % Eosinophils (%) (Auto) 4.0 % Basophils (%) (Auto) 0.5 % Neutrophils # (Auto) 5.44 K/uL Lymphocytes # (Auto) 1.17 K/uL Monocytes # (Auto) 0.59 K/uL Eosinophils # (Auto) 0.30 K/uL Basophils # (Auto) 0.04 K/uL RDW Standard Deviation 49.1 fL RDW Coefficient of Variation 16.0 % Immature Granulocyte % (Auto) 0.1 % Immature Granulocyte # (Auto) 0.01 K/uL Sodium Level 139 mmol/L Potassium Level 4.2 mmol/L Chloride Level 106 mmol/L Carbon Dioxide Level 28 mmol/L Anion Gap 5.0 mmol/L Blood Urea Nitrogen 34 mg/dl Creatinine 2.30 mg/dl Est Creatinine Clear Calc Drug Dose 62.6 ml/min Estimated GFR () 35.2 Estimated GFR (Non- 30.4 BUN/Creatinine Ratio 14.7 Random Glucose 116 mg/dl Calcium Level 8.4 mg/dl Total Bilirubin 0.5 mg/dl Aspartate Amino Transf (AST/SGOT) 13 U/L Alanine Aminotransferase (ALT/SGPT) 12 U/L Alkaline Phosphatase 182 U/L Total Protein 7.5 gm/dl Albumin 2.6 gm/dl Globulin 4.9 gm/dl Albumin/Globulin Ratio 0.5 Assessment and Plan This is a complex 56 year old obese male with a PMH of A. fib on long-term anticoagulation, hx. of ventricular arrhythmias s/p ICD, mixed systolic- diastolic CHF and idiopathic cardiomyopathy, CKD stage 3, chronic lymphedema and recurrent cellulitis of b/l LE, insulin dependent DM2, HTN, hypothyroidism - presents with worsening cellulitic, lymphedema and worsening vision of L eye Chronic Lymphedema Bilateral Lower Extremity Cellulitis swelling of the lower extremity, chronically failed outpatient antibiotics sent over here by wound care for IV abx. allergies noted; was started on Vanco and Aztreonam wound care consult placed Vision Loss patient with chronic vision loss of R eye states his L eye is becoming worse for the past few years, but acutely worse since the weekend ophthalmology aware, recommended outpatient treatment, no acute treatment necessary - official consult pending A. Fib can continue Eliquis as per ophtho continue Coreg for rate control Chronic Mixed Systolic-Diastolic CHF Idiopathic Cardiomyopathy currently on Lasix 40mg IV due to lymphedema above will switch to oral Lasix in 1-2 days CKD stage 3 creatinine - 2.3; at or close to baseline avoid nephrotoxic agents when able Insulin dependent DM2 Levemir 35 units BID and sliding scale BSGs are stable DVT ppx Eliquis FULL CODE
[2017-04-05] MEDS ORDERED: NURSING DECISION MEDICATION ORDER SCH (15:30)
[2017-04-05 15:50] VITALS: BP 169/92; PULSE 63; TEMP 36.6; O2SAT 97
[2017-04-05 16:00] VITALS: O2SAT 97
--- NOTE | 2017-04-05 17:54 | Ophthalmology Consultation ---
Ophthalmology Consultation Date of Service: Apr 05, 2017. Requested By: [facility] History of Present Illness: 56y/o male w/ poorly controlled DM admitted for cellulitis and decreased VA OD CC: "my vision is worse" Vision: decreased Location (of CC): OD Quality/Severity: severe Duration: 5 days Timing: notice upon awaking Context: in NH on anti-coagulants for a-fib Associated Signs/Symptoms: none Modifying Factors: none No other eye complaints. Mood and Affect: normal Past Ocular History: Right Eye: 1. laser in [place] Left Eye: 1. h/o viral retinitis? Medications: see emr Relevant Past Medical History: DM, a-fib VA OD: HM OS: 20/400 IOP: 18 OD; 17 OS VF: full to count fingers OS, unable OD Motility: full OU External: The ocular adnexae are unremarkable. SLE: Lids/Lashes: wnl OU Conjunctiva/Sclera: quiet OU Cornea: clear OU Anterior Chamber: deep and quiet OU Iris: normal OU; no NVI OU Lens: +nsc OU Dilated fundus exam OD: vitreous: +++VH optic nerve: unable to visualize due to VH macula: +overlying VH vessels: wnl midperiphery: +cr scars, no RT/RD periphery: no RT/RD by copra sampler, good view temporally, superiorly and nasally, inferior dense VH poorly visualized Dilated fundus exam OS: vitreous: clear optic nerve: 0.2, +PPA, no edema/pallor/NVD macula: atrophic scar w/ fibrosis vessels: wnl midperiphery: +punched out cr scars periphery: +numerical control operator, no RT/RD Assessment and Plan: 1. Vitreous hemorrhage OD -likely due to proliferative diabetic retinopathy -will likely require anti-VEGF and laser -recommend keep head elevated, avoid straining/lifting; okay to continue anti- coag for a-fib -need to assess in clinic w/ b-scan w/in 1 week if possible for pt to be transported to clinic -unless going to be d/c soon should be transported to clinic for further eval. 2. h/o Ocular histoplasmosis (POHS) OU -h/o laser in [place] OS -OS VA poor since POHS, OD was better seeing eye until VH Follow-Up: in clinic soon Stefano Zamora,
[2017-04-05] MEDS: ATORVASTATIN 40 MG TAB PO SCH (19:52)
[2017-04-05] MEDS: EUCERIN CR 120 GM JAR EXT SCH (20:00)
[2017-04-06 00:16] VITALS: BP 165/88; PULSE 62; TEMP 36.5; O2SAT 97
[2017-04-06] MEDS: AZTREONAM IV 2,000 MG in DEXTROSE 5% 100ML 100 ML IV SCH ×3 (02:20→18:08)
[2017-04-06] MEDS: VANCOMYCIN INJ 1,750 MG in SODIUM CHLORIDE 0.9% 500ML 500 ML IV SCH (03:29)
[2017-04-06] MEDS: LEVOTHYROXINE 25 MCG TAB PO SCH ×2 (05:20→06:30)
[2017-04-06] MEDS: LORAZEPAM 1 MG TAB PO STA (05:45)
--- NOTE | 2017-04-06 06:12 | Progress Note ---
Progress Note Date of Service Apr 06, 2017. Progress Note Pt became very combative wanted to leave , does not want any IV antibiotic screaming at nursing that he was starved overnight , deprived him of food seen pt at bedside -multiple security guards at present pt is very agitated -wants to take is IV site out -( he will take it out himself if no one is doing it next few minutes ) sick of this hospital he is leaving now , will go back to [place] to his home does not care if his leg infection gets any worse , " he knows his right" threatening the Security guards for fight if they want to keep him here tried to reason with patient -to understand if anything can be done to help him , or correct anything that cause his dissatisfaction pt remains belligerent, does not want to give any reason other than this is the worse place to be none of his conversation showed evidence of competency -that he is aware of his infection and disease process and risk of leaving hospital early AM IV site taken out by Nursing ,as pt was trying to take it off himself corporate security officer asked to stay as pt found not competent to sign AMA paper psych eval requested will relay to AM attending Dr Madrid
[2017-04-06] MEDS: INSULIN ASPART 100 UNITS/ML 3 ML PEN SQ SCH ×4 (06:30→22:00)
[2017-04-06 06:35] LABS: HEMATOCRIT 32.7 % (42-52); MEAN CELL VOLUME 83.4 fL (80-100); MEAN CORPUSCULAR HEMOGLOBIN 25.5 pg (25-34); MEAN CORPUSCULAR HGB CONC 30.6 g/dl (32-36); MEAN PLATELET VOLUME 9.5 fL (7.4-10.4); PLATELET COUNT 269 K/uL (130-400); RED BLOOD COUNT 3.92 M/uL (4.7-6.1); WHITE BLOOD COUNT 8.46 K/uL (4.8-10.8)
[2017-04-06 07:03] LABS: BUN/CREATININE RATIO 13.7 (10-20); CALCIUM 8.2 mg/dl (8.5-10.1); CREATININE 2.6 mg/dl (0.60-1.40); MAGNESIUM 2.3 mg/dl (1.8-2.4)
[2017-04-06 07:30] VITALS: BP 179/101; PULSE 62; O2SAT 99
[2017-04-06 10:02] VITALS: BP 150/76; PULSE 101
[2017-04-06] MEDS ORDERED: NURSING VERBAL MED ORDER STA (11:18)
[2017-04-06] MEDS: APIXABAN 2.5 MG TAB PO SCH ×2 (11:20→21:05)
[2017-04-06] MEDS: EUCERIN CR 120 GM JAR EXT SCH ×2 (11:20→20:00)
[2017-04-06] MEDS: LISINOPRIL 2.5 MG TAB PO SCH (11:20)
[2017-04-06] MEDS: ASPIRIN 81 MG ECTAB PO SCH (11:21)
[2017-04-06] MEDS: POTASSIUM CHLORIDE 10 MEQ TABCR PO SCH (11:21)
[2017-04-06] MEDS: PANTOprazole SOD 40 MG TAB PO SCH (11:21)
[2017-04-06] MEDS: VENLAFAXINE HCL XR 75 MG CAPXR PO SCH (11:21)
[2017-04-06] MEDS: INSULIN DETEMIR SQ SCH ×2 (11:24→21:06)
[2017-04-06] MEDS: ACETAMINOPHEN/CODEINE 300/30MG TAB PO PRN ×3 (11:28→23:21)
[2017-04-06] MEDS: CARVEDILOL 25 MG TAB PO SCH ×2 (11:48→21:04)
[2017-04-06] MEDS ORDERED: FUROSEMIDE 40 MG TAB PO ONE (12:00)
--- NOTE | 2017-04-06 12:09 | Psychiatric Consultation ---
Consultation Date of Consultation Apr 06, 2017. Identifying Data 56 yo male, recently discharged from SNF, who is admitted with complaints of lower extremity pain, drainage. Consult requested to evaluate capacity to make decisions regarding discharge. Information is gathered from the patient, the electronic medical record, and both considered to be reliable. Chief Complaint "I don't want to talk to you.". History of Present Illness This is a 56 yo resident of [place], who was in our facility from 01/10/17 to and was discharged to a SNF for ongoing treatment of BLE wounds. He reports that he was discharged from that SNF despite his reports to them that his lower extremity wounds were draining, and he believed them to be infected. He was admitted to our facility on 04/04, but last night became agitated, demanding to have his IV taken out so he could go home. He was not able to be reasonable at that time and the attending felt that he did not have capacity to make decisions about discharge. We are asked to re-eval today. At the time I see the patient he is sitting on the side of the bed, manipulating the TV remote. I identify myself and he says that he does not want to talk to me and knows why I am there. I explain that I am there to determine if he is thinking clearly about wanting to leave the hospital. In that setting he is willing to answer some questions. Specifically, he is oriented to person, place, time/date and reason for admission. He is able to state the recommendations for treatment from his primary team (IV antibiotics) and his reasons for wanting to leave ("I don't like hospitals. I have had some very bad experiences."). He is able to state the possible consequences of leaving the hospital at this time ("I could lose my feet or legs."). He says that he is willing to have ABX, but wants them to be administered at home, where he lives alone in a one floor building, without steps. He says that he uses a wheelchair to get around his home to take care of himself. He denies that he is suicidal or having hallucinations. He admits to some anxiety, triggered by being in the hospital. Past Psychiatric History Current OP Treatment: no current treatment Prior OP Treatment: no prior treatment Prior Psych Hospitalizations: none Past Medical/Surgical History (1) Vitreous hemorrhage (2) Cellulitis (3) Stage 3 chronic kidney disease (4) Diabetes mellitus, type II (5) Obstructive hydrocephalus (6) Systolic CHF (7) MERY (obstructive sleep apnea) (8) History of stroke (9) CAD (coronary artery disease) (10) History of pulmonary embolus (PE) (11) HTN (hypertension) (12) Dyslipidemia (13) Chronic a-fib Allergies Allergies: Coded Allergies: Amoxicillin (Verified Allergy, Unknown, unknown, 04/04/17) Cephalosporins (Verified Allergy, Unknown, unknown, 04/04/17) Ciprofloxacin (Verified Allergy, Unknown, unknown, 04/04/17) Clindamycin (Verified Allergy, Unknown, unknown, 04/04/17) Iodinated Diagnostic Agents (Verified Allergy, Unknown, unknown, 04/04/17) Penicillins (Unverified Allergy, Unknown, unknown, 04/04/17) Perflutren (Verified Allergy, Unknown, PERFLUTREN LIPID MICROSPHERES, 04/04) Home Medications Scheduled Apixaban (Eliquis), 5 MG PO BID Aspirin (Aspirin Chewable), 81 MG PO QAM Atorvastatin (Lipitor), 40 MG PO QPM Carvedilol (Coreg), 25 MG PO BID Esomeprazole Magnesium (Nexium), 40 MG PO DAILY Fentanyl (Fentanyl), 12 MCG TOP [id number] Insulin Aspart (Novolog), 15 UNITS SQ TID Insulin Detemir (Levemir), 35 UNITS SQ BID Levothyroxine Sodium (Synthroid), 25 MCG PO DAILY Lisinopril (Lisinopril), 2.5 MG PO DAILY Magnesium Hydroxide (Milk of Magnesia), 30 ML PO UD Melatonin (Melatonin), 5 MG PO HS Multiple Vitamins W/ Minerals (Theragran-M), 1 TAB PO QAM Polyethylene Glycol 3350 (Miralax), 17 GM PO DAILY Potassium Chloride (Micro-K Ext Rel), 10 MEQ PO DAILY Sennosides-Docusate Sodium (Sennalax-S), 2 TABS PO HS Torsemide (Demadex), 40 MG PO DAILY Torsemide (Demadex), 60 MG PO DAILY Trazodone Hcl (Trazodone), 50 MG PO HS Ursodiol (Ursodiol), 300 MG PO BID Venlafaxine Hcl (Venlafaxine Extended Rel), 75 MG PO DAILY Scheduled PRN Acetaminophen (Tylenol), 500 MG PO Q4 PRN for Pain or Fever Acetaminophen/Codeine (Tylenol W/Codeine #3), 1 TAB PO Q6 PRN for Pain Albuterol Hfa (Ventolin Hfa), 2 PUFFS INH Q6H PRN for Wheezing Bisacodyl (Dulcolax), 1 SUPP UT Q24H PRN for no bm past 2 days Nitroglycerin (Nitrostat), 0.4 MG UT UD PRN for Chest Pain Ondansetron Hcl (Zofran), 4-8 MG PO Q8 PRN for Nausea Miscellaneous Medications Glucagon (Glucagon Emergency Kit) Alcohol Use Alcohol Use In Past 12 Months: No Smoking Use Smoking Status: Never Smoker Examination Physical Examination As per Dr. Madrid Vital Signs Vital Signs Past 12 Hours Date Time Temp Pulse Resp B/P (MAP) Pulse Ox O2 Delivery O2 Flow Rate FiO2 04/06/17 10:02 101 150/76 (100) 04/06/17 08:00 Room Air 04/06/17 07:30 62 20 179/101 (127) 99 Room Air 04/06/17 00:16 36.5 62 18 165/88 (113) 97 Room Air 04/06/17 00:00 Room Air Laboratory Results Last 24 Hours Test 04/05/17 16:12 04/05/17 21:14 04/06/17 06:13 04/06/17 08:22 Bedside Glucose 125 mg/dl 126 mg/dl 116 mg/dl White Blood Count 8.46 K/uL Red Blood Count 3.92 M/uL Hemoglobin 10.0 g/dL Hematocrit 32.7 % Mean Corpuscular Volume 83.4 fL Mean Corpuscular Hemoglobin 25.5 pg Mean Corpuscular Hemoglobin Concent 30.6 g/dl RDW Standard Deviation 48.5 fL RDW Coefficient of Variation 15.9 % Platelet Count 269 K/uL Mean Platelet Volume 9.5 fL Sodium Level 137 mmol/L Potassium Level 4.0 mmol/L Chloride Level 105 mmol/L Carbon Dioxide Level 27 mmol/L Anion Gap 5.0 mmol/L Blood Urea Nitrogen 36 mg/dl Creatinine 2.60 mg/dl Est Creatinine Clear Calc Drug Dose 46.9 ml/min Estimated GFR () 30.4 Estimated GFR (Non- 26.2 BUN/Creatinine Ratio 13.7 Random Glucose 110 mg/dl Calcium Level 8.2 mg/dl Magnesium Level 2.3 mg/dl Mental Examination During interview pt is: uncooperative Appearance: appropriately dressed Eye contact is: poor Motor behavior is: no abnormal motor movements Speech: normal in rate, rhythm & volume Affect: flat, irritable Mood is: irritable Thought process: goal directed Thought content: reality based without delusions Suicidal thought are: denied Homicidal thoughts are: denied Hallucinations: denies auditory, denies visual Cognition: memory grossly intact, attention grossly intact, language grossly intact Intelligence estimated to be: average Insight: poor Judgement: poor Impression / Recommendations Impression 56 yo male with many medical problems as listed above, who wants to leave the hospital to go home. We are consulted to evaluate capacity to make this decision. In my opinion, the patient has the ability to understand what is being communicated, able to communicate his wishes. He has the ability to reason and to understand the consequences of his decision. He therefore has capacity to make decisions regarding discharge. He is willing to have the IV ABX, but wants to do so at his home in [place].
--- NOTE | 2017-04-06 15:35 | Progress Note ---
Subjective Date of Service: Apr 06, 2017. Subjective Pt evaluation today including: conversation w/ patient, physical exam, lab review, review of studies, review of inpatient medication list Saw/examined the patient in room 460 Was trying to sign out AMA earlier today; was very agitated Has since calmed down. Spoke with the patient and he is agreeable to stay for IV abx. Initially refused but now agreeable to treatment Problem List Medical Problems: (1) Altered mental status Status: Acute (2) Anemia Status: Acute (3) Anemia Status: Acute (4) Cellulitis Status: Acute (5) Cellulitis Status: Acute (6) CHF (congestive heart failure) Status: Acute (7) Chronic a-fib Status: Chronic (8) Confusion Status: Acute (9) Deep vein thrombosis Status: Acute (10) Diabetes mellitus, type II Status: Chronic (11) HTN (hypertension) Status: Chronic (12) Hypoglycemia Status: Acute (13) Hypoxia Status: Acute (14) Stage 3 chronic kidney disease Status: Chronic (15) Vitreous hemorrhage Status: Acute Review of Systems Respiratory: No shortness of breath Cardiac: No chest pain Abdomen: No pain, No nausea, No vomiting, No diarrhea Musculoskeletal: + joint pain (b/l LE), + muscle pain, + swelling, + calf pain Medications Current Inpatient Medications Medications (Trade) Dose Ordered Sig/Miguel Route Start Time Stop Time Status Last Admin Dose Admin Acetaminophen (Tylenol Tab) 500 mg Q4 PRN PO 04/04/17 18:15 05/04/17 18:14 Albuterol (Ventolin Hfa Inhaler) 2 puffs Q6H PRN INH 04/04/17 18:15 05/04/17 18:14 Aspirin (Ecotrin Tab) 81 mg QAM PO 04/05/17 08:00 05/05/17 08:59 04/06/17 11:21 81 MG Atorvastatin Calcium (Lipitor Tab) 40 mg QPM PO 04/04/17 21:00 05/04/17 20:59 04/05/17 19:52 40 MG Carvedilol (Coreg Tab) 25 mg BID PO 04/04/17 20:00 05/04/17 20:59 04/06/17 11:48 25 MG Insulin Aspart (novoLOG ASPART) SLIDING SCALE ACHS SQ 04/04/17 22:00 05/04/17 21:59 04/06/17 12:46 12 UNITS Levothyroxine Sodium (Synthroid Tab) 25 mcg DAILYBB PO 04/05/17 06:30 05/05/17 06:29 04/05/17 09:09 25 MCG Lisinopril (Zestril Tab) 2.5 mg DAILY PO 04/05/17 08:00 05/05/17 08:59 04/06/17 11:20 2.5 MG Nitroglycerin (Nitrostat Tab) 0.4 mg UD PRN UT 04/04/17 18:15 05/04/17 18:14 Potassium Chloride (Klor-Con M10) 10 meq DAILY PO 04/05/17 08:00 05/05/17 08:59 04/06/17 11:21 10 MEQ Venlafaxine HCl (effeXOR EXTENDED REL CAP) 75 mg DAILY PO 04/05/17 08:00 05/05/17 08:59 04/06/17 11:21 75 MG Apixaban (Eliquis Tab) 5 mg BID PO 04/04/17 20:00 05/04/17 20:59 04/06/17 11:20 5 MG Pantoprazole Sodium (Protonix Tab) 40 mg DAILY PO 04/05/17 08:00 05/05/17 08:59 04/06/17 11:21 40 MG Insulin Detemir (Levemir Insulin) 35 units BID SQ 04/04/17 20:00 05/04/17 20:59 04/06/17 11:24 35 UNITS Vancomycin HCl 1750 mg/Sodium Chloride 535 ml @ 125 mls/hr Q18H IV 04/05/17 10:00 04/15/17 09:59 Future Hold 04/06/17 03:29 125 MLS/HR Aztreonam 2000 mg/ Dextrose 120 ml @ 100 mls/hr Q8H IV 04/05/17 02:00 04/15/17 01:59 04/06/17 02:20 100 MLS/HR Vancomycin HCl (Consult) 1 ea UD PRN N/A 04/04/17 19:00 05/04/17 18:59 Acetaminophen/ Codeine Phosphate (Tylenol w/ Codeine #3 Tab) 1 tab Q6 PRN PO 04/04/17 19:45 05/04/17 19:44 04/06/17 11:28 1 TAB Multi-Ingredient Ointment (Eucerin Unscented Cr) 1 appln BID EXT 04/05/17 20:00 05/05/17 19:59 04/06/17 11:20 1 APPLN Furosemide (Lasix Tab) 40 mg BID17 PO 04/06/17 17:00 05/06/17 16:59 Objective Vital Signs Date Time Temp Pulse Resp B/P (MAP) Pulse Ox O2 Delivery O2 Flow Rate FiO2 04/06/17 10:02 101 150/76 (100) 04/06/17 08:00 Room Air 04/06/17 07:30 62 20 179/101 (127) 99 Room Air 04/06/17 00:16 36.5 62 18 165/88 (113) 97 Room Air 04/06/17 00:00 Room Air 04/05/17 16:00 97 Room Air 2.0 04/05/17 15:50 36.6 63 20 169/92 (117) 97 Room Air Physical Exam General Appearance: no apparent distress Cardiovascular: no murmur, + irregularly irregular Extremities: + pertinent finding (chronic lymphedema; possibly overlying cellulitis, significant swelling of the L LE) Laboratory Results Last 24 Hours Test 04/05/17 16:12 04/05/17 21:14 04/06/17 06:13 04/06/17 08:22 Bedside Glucose 125 mg/dl 126 mg/dl 116 mg/dl White Blood Count 8.46 K/uL Red Blood Count 3.92 M/uL Hemoglobin 10.0 g/dL Hematocrit 32.7 % Mean Corpuscular Volume 83.4 fL Mean Corpuscular Hemoglobin 25.5 pg Mean Corpuscular Hemoglobin Concent 30.6 g/dl RDW Standard Deviation 48.5 fL RDW Coefficient of Variation 15.9 % Platelet Count 269 K/uL Mean Platelet Volume 9.5 fL Sodium Level 137 mmol/L Potassium Level 4.0 mmol/L Chloride Level 105 mmol/L Carbon Dioxide Level 27 mmol/L Anion Gap 5.0 mmol/L Blood Urea Nitrogen 36 mg/dl Creatinine 2.60 mg/dl Est Creatinine Clear Calc Drug Dose 46.9 ml/min Estimated GFR () 30.4 Estimated GFR (Non- 26.2 BUN/Creatinine Ratio 13.7 Random Glucose 110 mg/dl Calcium Level 8.2 mg/dl Magnesium Level 2.3 mg/dl Test 04/06/17 11:42 Bedside Glucose 211 mg/dl Assessment and Plan This is a complex 56 year old obese male with a PMH of A. fib on long-term anticoagulation, hx. of ventricular arrhythmias s/p ICD, mixed systolic- diastolic CHF and idiopathic cardiomyopathy, CKD stage 3, chronic lymphedema and recurrent cellulitis of b/l LE, insulin dependent DM2, HTN, hypothyroidism - presents with worsening cellulitic, lymphedema and worsening vision of L eye Patient has been trying to be discharged and sign out AMA earlier; appreciate psych input - they state he has mental capacity for medical decision making. He is agreeable to stay for now. ID consulted for abx. outpatient ophthalmology follow-up Chronic Lymphedema Bilateral Lower Extremity Cellulitis swelling of the lower extremity, chronically failed outpatient antibiotics sent over here by wound care for IV abx. allergies noted; was started on Vanco and Aztreonam wound care consult placed ID consulted Vision Loss patient with chronic vision loss of R eye states his L eye is becoming worse for the past few years, but acutely worse since the weekend ophthalmology aware, recommended outpatient treatment, no acute treatment necessary - official consult pending A. Fib can continue Eliquis as per ophtho continue Coreg for rate control Chronic Mixed Systolic-Diastolic CHF Idiopathic Cardiomyopathy currently on Lasix 40mg IV due to lymphedema above will switch to oral Lasix in 1-2 days CKD stage 3 creatinine - 2.3; at or close to baseline avoid nephrotoxic agents when able Insulin dependent DM2 Levemir 35 units BID and sliding scale BSGs are stable DVT ppx Eliquis FULL CODE
[2017-04-06 16:00] VITALS: O2SAT 99
[2017-04-06] MEDS ORDERED: hydrOXYzine HCL 25 MG TAB PO STA (16:01)
[2017-04-06] MEDS ORDERED: hydrOXYzine HCL 25 MG TAB PO PRN (16:15)
[2017-04-06 16:31] VITALS: BP 155/68; PULSE 62; TEMP 36.5; O2SAT 96
[2017-04-06] MEDS: FUROSEMIDE 40 MG TAB PO SCH (18:08)
[2017-04-06] MEDS: ATORVASTATIN 40 MG TAB PO SCH (21:05)
[2017-04-06] MEDS ORDERED: PROMETHAZINE HCL INJ 12.5 MG in SODIUM CHLORIDE 0.9% 50ML 50 ML IV PRN (21:15)
[2017-04-06] MEDS ORDERED: VANCOMYCIN TROUGH ONE (21:30)
[2017-04-06] MEDS ORDERED: VANCOMYCIN INJ 1,750 MG in SODIUM CHLORIDE 0.9% 500ML 500 ML IV SCH (23:30)
[2017-04-07 00:20] VITALS: BP 162/89; PULSE 65; TEMP 36.8; O2SAT 99
[2017-04-07] MEDS: AZTREONAM IV 2,000 MG in DEXTROSE 5% 100ML 100 ML IV SCH ×2 (02:00→10:03)
[2017-04-07 04:08] VITALS: BP 168/90; PULSE 63; TEMP 36.9; O2SAT 99
[2017-04-07] MEDS ORDERED: LORAZEPAM 1 MG TAB PO STA (04:11)
[2017-04-07] MEDS ORDERED: LORAZEPAM 1 MG TAB PO PRN (04:15)
[2017-04-07 06:28] LABS: HEMATOCRIT 30.2 % (42-52); MEAN CELL VOLUME 82.5 fL (80-100); MEAN CORPUSCULAR HEMOGLOBIN 25.4 pg (25-34); MEAN CORPUSCULAR HGB CONC 30.8 g/dl (32-36); MEAN PLATELET VOLUME 9.3 fL (7.4-10.4); PLATELET COUNT 246 K/uL (130-400); RED BLOOD COUNT 3.66 M/uL (4.7-6.1); WHITE BLOOD COUNT 8.22 K/uL (4.8-10.8)
[2017-04-07 06:57] LABS: BUN/CREATININE RATIO 16.2 (10-20); CREATININE 2.7 mg/dl (0.60-1.40)
[2017-04-07 07:48] VITALS: BP 160/83; PULSE 86; TEMP 37; O2SAT 96
[2017-04-07] MEDS: LISINOPRIL 2.5 MG TAB PO SCH (08:09)
[2017-04-07] MEDS: PANTOprazole SOD 40 MG TAB PO SCH (08:09)
[2017-04-07] MEDS: LEVOTHYROXINE 25 MCG TAB PO SCH (08:09)
[2017-04-07] MEDS: VENLAFAXINE HCL XR 75 MG CAPXR PO SCH (08:09)
[2017-04-07] MEDS: FUROSEMIDE 40 MG TAB PO SCH (08:09)
[2017-04-07] MEDS: EUCERIN CR 120 GM JAR EXT SCH (08:09)
[2017-04-07] MEDS: APIXABAN 2.5 MG TAB PO SCH (08:10)
[2017-04-07] MEDS: ASPIRIN 81 MG ECTAB PO SCH (08:10)
[2017-04-07] MEDS: CARVEDILOL 25 MG TAB PO SCH (08:10)
[2017-04-07] MEDS: ACETAMINOPHEN/CODEINE 300/30MG TAB PO PRN ×2 (08:14→14:49)
[2017-04-07] MEDS: INSULIN ASPART 100 UNITS/ML 3 ML PEN SQ SCH ×2 (08:19→12:48)
[2017-04-07] MEDS: INSULIN DETEMIR SQ SCH (08:19)
[2017-04-07] MEDS: POTASSIUM CHLORIDE 10 MEQ TABCR PO SCH (09:56)
[2017-04-07] MEDS ORDERED: VANCOMYCIN INJ 1,750 MG in SODIUM CHLORIDE 0.9% 500ML 500 ML IV SCH ×2 (10:00→23:30)
--- NOTE | 2017-04-07 10:34 | Progress Note ---
Progress Note Date of Service Apr 07, 2017. Progress Note ID Consult Dictated #[id number] A/P: 1. LE venous stasis ulcers b/l -Ct negative for osteo, currently refusing IV abx, has multiple abx allergies -If agreeable, would suggest doxy 100mg po bid x 14 days for ulceration but clear evidence of cellulitis, suspect lower extremity changes are chronic in nature -thank you
--- NOTE | 2017-04-07 11:04 | INFECT. DISEASE CONSULTATION ---
DATE OF CONSULTATION: 04/07/2017 DATE OF CONSULTATION: 04/07/2017 REQUESTING PHYSICIAN: Dr. Madrid. HISTORY OF PRESENT ILLNESS: This is a 56-year-old gentleman who was admitted from residential facility for drainage from his extremities and bilateral swelling. He does have a history of leg ulcerations. He does have metallic fragments in his feet. He did undergo imaging via CAT scan this admission which showed edema but no osteomyelitis bilaterally. There were metallic fragments noted in both lower extremities. He was started on intravenous antibiotics consisting of vancomycin and aztreonam. Blood cultures were obtained on the are no growth to date. He does have increasing creatinine from 2.2 to 2.7. His white blood cell count is 8.2. He did have a fever initially on admission; however, he has been afebrile for several days. He claims he had a reaction to his antibiotics last night and per nursing is now refusing all antibiotics. There was an episode yesterday where the patient was attempting to sign out against medical advice secondary to not wanting continued IV antibiotics. Infectious diseases was consulted for recommendations for oral therapy. He does have multiple antibiotic allergies including penicillin, cephalosporins, quinolones and clindamycin. He appears to be tolerating these antibiotics; however, is currently refusing them. He denies any fevers or chills. He denies any pain in his legs. He denies any nausea, vomiting, diarrhea or abdominal pain. He denies any cough, shortness of breath or chest pain. All remaining review of systems are reviewed and are unremarkable except or as noted. PAST MEDICAL HISTORY: Significant for coronary artery disease, AFib, type 2 diabetes, high cholesterol, history of VA, history of PE, history of CVA, hypertension, ischemic cardiomyopathy, obstructive hydrocephalus, obstructive sleep apnea, chronic kidney disease, CHF. PAST SURGICAL HISTORY: Significant for cholecystectomy. FAMILY HISTORY: Noncontributory. SOCIAL HISTORY: Negative for tobacco use, drug use or alcohol use. ALLERGIES: AGAIN INCLUDE AMOXICILLIN, CEPHALOSPORINS, QUINOLONES, CLINDAMYCIN, AND IODINE. CURRENT MEDICATIONS: Include vancomycin, Ativan, promethazine, Lasix, hydroxyzine, Eucerin ointment, aspirin, lisinopril, potassium, Effexor, Protonix, Synthroid, aztreonam, insulin, Lipitor, Coreg, Eliquis, Tylenol with codeine, Ventolin. PHYSICAL EXAMINATION: VITAL SIGNS: He is afebrile, pulse 86, respiratory rate is 20, blood pressure is 160/83, oxygen saturation is 96-99% on room air. GENERAL: He is awake, alert and oriented. He is in no acute distress. He is not combative on my examination. HEAD, EYES, EARS, NOSE, AND THROAT: Mucous membranes are moist. Extraocular muscles are intact. He does have visual impairment. HEART: Regular. LUNGS: Clear. ABDOMEN: Soft. EXTREMITIES: Lower extremities reveal chronic venous stasis changes with open ulcerations. There is no warmth. There is a chronic discoloration, but no diffuse erythema. There is no tenderness to palpation. LABORATORY STUDIES: CBC today reveals a white blood cell count of 8.2, hemoglobin 9.3, platelets 246. Chemistry panel reveals a sodium of 139, potassium 4.0, chloride 106, bicarb 24, BUN 44, creatinine 2.7, glucose is 136. Vancomycin level today is 17. Blood cultures from the are no growth to date x2. Chest x-ray in the Emergency Room showed cardiomegaly with no infiltrates. CT of the lower extremities are as above. ASSESSMENT AND PLAN: Chronic ulceration of the lower extremities although there is no distinct infection he is currently afebrile and hemodynamically stable. Certainly he could be transitioned to doxycycline 100 mg twice daily with food to complete 14-day course. If there is continued suspected infection certainly his antibiotics are limited secondary to multiple allergies. Thank you for this consultation.
--- NOTE | 2017-04-07 15:38 | Progress Note ---
Subjective Date of Service: Apr 07, 2017. Subjective Pt evaluation today including: conversation w/ patient, physical exam, lab review, review of studies, review of inpatient medication list Saw/examined the patient in room 460 Patient has been refusing IV antibiotics stating that it is not working for him He is otherwise stable; chronic lymphedema persists L eye vision is still blurred and decreased Problem List Medical Problems: (1) Altered mental status Status: Acute (2) Anemia Status: Acute (3) Anemia Status: Acute (4) Cellulitis Status: Acute (5) Cellulitis Status: Acute (6) CHF (congestive heart failure) Status: Acute (7) Chronic a-fib Status: Chronic (8) Confusion Status: Acute (9) Deep vein thrombosis Status: Acute (10) Diabetes mellitus, type II Status: Chronic (11) HTN (hypertension) Status: Chronic (12) Hypoglycemia Status: Acute (13) Hypoxia Status: Acute (14) Stage 3 chronic kidney disease Status: Chronic (15) Vitreous hemorrhage Status: Acute Review of Systems Eyes: + see HPI, + worsening of vision Respiratory: No shortness of breath Cardiac: + edema, No chest pain Musculoskeletal: + muscle pain, + swelling (b/l LE) Medications Current Inpatient Medications Medications (Trade) Dose Ordered Sig/Miguel Route Start Time Stop Time Status Last Admin Dose Admin Acetaminophen (Tylenol Tab) 500 mg Q4 PRN PO 04/04/17 18:15 05/04/17 18:14 Albuterol (Ventolin Hfa Inhaler) 2 puffs Q6H PRN INH 04/04/17 18:15 05/04/17 18:14 Aspirin (Ecotrin Tab) 81 mg QAM PO 04/05/17 08:00 05/05/17 08:59 04/07/17 08:10 81 MG Atorvastatin Calcium (Lipitor Tab) 40 mg QPM PO 04/04/17 21:00 05/04/17 20:59 04/06/17 21:05 40 MG Carvedilol (Coreg Tab) 25 mg BID PO 04/04/17 20:00 05/04/17 20:59 04/07/17 08:10 25 MG Insulin Aspart (novoLOG ASPART) SLIDING SCALE ACHS SQ 04/04/17 22:00 05/04/17 21:59 04/07/17 12:48 4 UNITS Levothyroxine Sodium (Synthroid Tab) 25 mcg DAILYBB PO 04/05/17 06:30 05/05/17 06:29 04/07/17 08:09 25 MCG Lisinopril (Zestril Tab) 2.5 mg DAILY PO 04/05/17 08:00 05/05/17 08:59 04/07/17 08:09 2.5 MG Nitroglycerin (Nitrostat Tab) 0.4 mg UD PRN UT 04/04/17 18:15 05/04/17 18:14 Potassium Chloride (Klor-Con M10) 10 meq DAILY PO 04/05/17 08:00 05/05/17 08:59 04/07/17 09:56 10 MEQ Venlafaxine HCl (effeXOR EXTENDED REL CAP) 75 mg DAILY PO 04/05/17 08:00 05/05/17 08:59 04/07/17 08:09 75 MG Apixaban (Eliquis Tab) 5 mg BID PO 04/04/17 20:00 05/04/17 20:59 04/07/17 08:10 5 MG Pantoprazole Sodium (Protonix Tab) 40 mg DAILY PO 04/05/17 08:00 05/05/17 08:59 04/07/17 08:09 40 MG Insulin Detemir (Levemir Insulin) 35 units BID SQ 04/04/17 20:00 05/04/17 20:59 04/07/17 08:19 35 UNITS Aztreonam 2000 mg/ Dextrose 120 ml @ 100 mls/hr Q8H IV 04/05/17 02:00 04/15/17 01:59 04/07/17 10:03 100 MLS/HR Vancomycin HCl (Consult) 1 ea UD PRN N/A 04/04/17 19:00 05/04/17 18:59 Acetaminophen/ Codeine Phosphate (Tylenol w/ Codeine #3 Tab) 1 tab Q6 PRN PO 04/04/17 19:45 05/04/17 19:44 04/07/17 14:49 1 TAB Multi-Ingredient Ointment (Eucerin Unscented Cr) 1 appln BID EXT 04/05/17 20:00 05/05/17 19:59 04/07/17 08:09 1 APPLN Furosemide (Lasix Tab) 40 mg BID17 PO 04/06/17 17:00 05/06/17 16:59 04/07/17 08:09 40 MG Hydroxyzine HCl (Vistaril Tab) 25 mg Q8 PRN PO 04/06/17 16:15 05/06/17 16:14 04/06/17 21:52 25 MG Promethazine HCl 12.5 mg/Sodium Chloride 50.5 ml @ 204 mls/hr Q6H PRN IV 04/06/17 21:15 05/06/17 21:14 04/06/17 21:34 204 MLS/HR Lorazepam (Ativan Tab) 1 mg TID PRN PO 04/07/17 04:15 05/07/17 04:14 Vancomycin HCl 1750 mg/Sodium Chloride 535 ml @ 200 mls/hr Q18H IV 04/07/17 10:00 04/16/17 09:59 Objective Vital Signs Date Time Temp Pulse Resp B/P (MAP) Pulse Ox O2 Delivery O2 Flow Rate FiO2 04/07/17 08:00 Room Air 04/07/17 07:48 37.0 86 20 160/83 (108) 96 Room Air 04/07/17 04:08 36.9 63 20 168/90 (116) 99 Room Air 04/07/17 00:20 36.8 65 18 162/89 (113) 99 Room Air 04/07/17 00:00 Room Air 04/06/17 16:31 36.5 62 20 155/68 (97) 96 Room Air 04/06/17 16:00 99 Room Air Physical Exam General Appearance: no apparent distress, + obese Respiratory/Chest: no respiratory distress, no accessory muscle use Cardiovascular: regular rate, rhythm Extremities: + pertinent finding (significant lymphedema noted; open ulcerations, chronic in nature) Laboratory Results Last 24 Hours Test 04/06/17 16:17 04/06/17 19:48 04/06/17 21:57 04/07/17 06:09 Bedside Glucose 127 mg/dl 139 mg/dl Vancomycin Level Trough 17.0 mcg/ml White Blood Count 8.22 K/uL Red Blood Count 3.66 M/uL Hemoglobin 9.3 g/dL Hematocrit 30.2 % Mean Corpuscular Volume 82.5 fL Mean Corpuscular Hemoglobin 25.4 pg Mean Corpuscular Hemoglobin Concent 30.8 g/dl RDW Standard Deviation 48.5 fL RDW Coefficient of Variation 16.0 % Platelet Count 246 K/uL Mean Platelet Volume 9.3 fL Sodium Level 139 mmol/L Potassium Level 4.0 mmol/L Chloride Level 106 mmol/L Carbon Dioxide Level 24 mmol/L Anion Gap 9.0 mmol/L Blood Urea Nitrogen 44 mg/dl Creatinine 2.70 mg/dl Est Creatinine Clear Calc Drug Dose 50.6 ml/min Estimated GFR () 29.0 Estimated GFR (Non- 25.0 BUN/Creatinine Ratio 16.2 Random Glucose 151 mg/dl Calcium Level 8.0 mg/dl Test 04/07/17 08:04 04/07/17 11:48 Bedside Glucose 136 mg/dl 158 mg/dl Assessment and Plan This is a complex 56 year old obese male with a PMH of Shahab almeida on long-term anticoagulation, hx. of ventricular arrhythmias s/p ICD, mixed systolic- diastolic CHF and idiopathic cardiomyopathy, CKD stage 3, chronic lymphedema and recurrent cellulitis of b/l LE, insulin dependent DM2, HTN, hypothyroidism - presents with worsening cellulitic, lymphedema and worsening vision of L eye 04/07 patient refusing most of his IV medications appreciate ID input - will switch to Doxycycline transfer back to [facility] Outpatient follow-up with Dr. Zamora, ophthalmology Patient has been trying to be discharged and sign out AMA earlier; appreciate psych input - they state he has mental capacity for medical decision making. He is agreeable to stay for now. ID consulted for abx. outpatient ophthalmology follow-up Chronic Lymphedema Bilateral Lower Extremity Cellulitis swelling of the lower extremity, chronically failed outpatient antibiotics sent over here by wound care for IV abx. allergies noted; was started on Vanco and Aztreonam wound care consult placed ID consulted Vision Loss patient with chronic vision loss of R eye states his L eye is becoming worse for the past few years, but acutely worse since the weekend ophthalmology aware, recommended outpatient treatment, no acute treatment necessary - official consult pending A. Fib can continue Eliquis as per ophtho continue Coreg for rate control Chronic Mixed Systolic-Diastolic CHF Idiopathic Cardiomyopathy currently on Lasix 40mg IV due to lymphedema above will switch to oral Lasix in 1-2 days CKD stage 3 creatinine - 2.3; at or close to baseline avoid nephrotoxic agents when able Insulin dependent DM2 Levemir 35 units BID and sliding scale BSGs are stable DVT ppx Eliquis FULL CODE
[2017-04-07] MEDS ORDERED: DXY100 PO (15:41)
--- NOTE | 2017-04-07 15:46 | Discharge Instructions ---
Discharge Instructions Date of Service Apr 07, 2017. Admission Reason for Admission: Cellulitis, Chronic Afib, Htn, Diabetes Mellitis 2 Discharge Discharge Diagnosis / Problem: Chronic Lymphedema, Cellulitic Changes, A. fib, DM2 Discharge Goals Goal(s): Decrease discomfort, Improve function, Diagnostic testing, Therapeutic intervention Activity Recommendations Activity Limitations: resume your previous activity . Instructions / Follow-Up Instructions / Follow-Up Please follow-up your primary care physician Patient must follow-up with Dr. Zamora, ophthalmology, around Monday or Monday (April 10 or April 11) You will be discharged with doxycycline 100mg twice a day for 12 days Current Hospital Diet Patient's current hospital diet: Low Sodium Diet (2gm Na), Diabetes Type 2 Diet Discharge Diet Recommended Diet: Low Sodium Diet (2gm Na), Diabetes Type 2 Diet Pending Studies Studies pending at discharge: no Laboratory Results Hemoglobin A1c Test 01/07/17 04:15 Range/Units Estimated Average Glucose 171 mg/dl Hemoglobin A1c 7.6 H 4.5-5.6 % Medical Emergencies . Who to Call and When: Medical Emergencies: If at any time you feel your situation is an emergency, please call 911 immediately. . Non-Emergent Contact Non-Emergency issues call your: Primary Care Provider . . "Provider Documentation" section prepared by Paulo Madrid. . VTE Core Measure Inpt VTE Proph given/why not?: Other Anticoagulation (Eliquis)
--- NOTE | 2017-04-07 15:48 | Discharge Summary ---
Discharge Summary Date of Service Apr 07, 2017. Discharge Summary Admission Date: Apr 04, 2017 at 17:16 Discharge Date: Apr 07, 2017 [facility]charge Disposition: [facility] facility Principal Diagnosis: Chronic Lymphedema/Venous Stasis Cellulitis A. Fib DM2 Medication Reconciliation New Medications: Doxycycline Hyclate (Doxycycline Hyclate) 100 Mg Cap 100 MG PO BID for 12 Days, #24 CAP Continued Medications: Acetaminophen (Tylenol) 500 Mg Tab 500 MG PO Q4 PRN for Pain or Fever use for mild pain 1-3 or fever >101f max 3gm apap/24hr Acetaminophen/Codeine (Tylenol W/Codeine #3) 300 Mg/30 Mg Tab 1 TAB PO Q6 PRN for Pain for 3 Days, #12 max 3gm apap/24hr Albuterol Hfa (Ventolin Hfa) 200 Puffs/01270 Mcg Aers 2 PUFFS INH Q6H PRN for Wheezing Apixaban (Eliquis) 5 Mg Tab 5 MG PO BID, TAB Aspirin (Aspirin Chewable) 81 Mg Chew 81 MG PO QAM Atorvastatin (Lipitor) 40 Mg Tab 40 MG PO QPM Bisacodyl (Dulcolax) 10 Mg Sup 1 SUPP IN Q24H PRN for no bm past 2 days, SUP Carvedilol (Coreg) 25 Mg Tab 25 MG PO BID Esomeprazole Magnesium (Nexium) 40 Mg Capcr 40 MG PO DAILY, CAP Fentanyl (Fentanyl) 12 Mcg Tdsy 12 MCG TOP CQ72HR Glucagon (Glucagon Emergency Kit) 1 Mg Kit Insulin Aspart (Novolog) 100 Units/Ml Inj 15 UNITS SQ TID Insulin Detemir (Levemir) 100 Units/Ml Inj 35 UNITS SQ BID Levothyroxine Sodium (Synthroid) 25 Mcg Tab 25 MCG PO DAILY, TAB Lisinopril (Lisinopril) 2.5 Mg Tab 2.5 MG PO DAILY Magnesium Hydroxide (Milk of Magnesia) 30 Ml Susp 30 ML PO UD Melatonin (Melatonin) 5 Mg Tab 5 MG PO HS Multiple Vitamins W/ Minerals (Theragran-M) 1 Tab Tab 1 TAB PO QAM Nitroglycerin (Nitrostat) 0.4 Mg Tab 0.4 MG UT UD PRN for Chest Pain Ondansetron Hcl (Zofran) 4 Mg Tab 4-8 MG PO Q8 PRN for Nausea, TAB Polyethylene Glycol 3350 (Miralax) 1 Pow Pow 17 GM PO DAILY, #255 GM Potassium Chloride (Micro-K Ext Rel) 10 Meq Capcr 10 MEQ PO DAILY, CAP Sennosides-Docusate Sodium (Sennalax-S) 1 Tab Tab 2 TABS PO HS Torsemide (Demadex) 20 Mg Tab 40 MG PO DAILY, TAB 1600 Torsemide (Demadex) 20 Mg Tab 60 MG PO DAILY, TAB @ 0800 Trazodone Hcl (Trazodone) 50 Mg Tab 50 MG PO HS, TAB Ursodiol (Ursodiol) 300 Mg Cap 300 MG PO BID Venlafaxine Hcl (Venlafaxine Extended Rel) 75 Mg Cap 75 MG PO DAILY Admission Information HPI (per Admitting provider): This is a 56 year old M with multiple past medical conditions that have been chronic including obesity, Diabetes, atrial fibrillation on apixaban and ICD, with recurrent episodes of lower extremity swelling and inflammation. Patient recently from intermediate facility after a hospital admission from 2016 to 01/15/2017. Patient's main complaints have been recent drainage from lower extremities and leg swelling. Has been taking acetaminophen and codeine chronically for leg pains and lower back pain. In the ED, X rays of the feet did not show evidence of fractures however possible metallic fragments in feet bilaterally. Patient has poor renal function possibly precluding him from imaging studies with IV contrast. Reports multiple allergies to substances including IV antibiotics and Benadryl. Denies chest pain of shortness of breath but has elevated BNP. Also notes of 2 days or worsening visual impairments. As per ED physician, it was technically difficult to perform funduscopy however he performed bedside ultrasound which notes debris in vitreous of right eye and concerns for vitreous hemorrhage of right eye. Case discussed at length with Ophthalmology services Dr. Zamora [phone] for consultation. Physical Exam (per Admitting): General Appearance: no apparent distress Head: normocephalic, atraumatic Eyes: normal inspection, PERRL, EOMI ENT: normal ENT inspection, pharynx normal Neck: supple, thyroid normal, no JVD, trachea midline Respiratory/Chest: chest non-tender, lungs clear, normal breath sounds, no respiratory distress, no accessory muscle use Cardiovascular: regular rate, rhythm Abdomen/GI: normal bowel sounds, non tender, soft Back: normal inspection Extremities/Musculoskelatal: + pertinent finding (bilateral lower extremity edema with swelling greater in the right leg than in the left) Neurologic/Psych: no motor/sensory deficits, alert, oriented x 3 Skin: + pertinent finding (lower extremities with areas of skin healing from blisters) Hospital Course This is a complex 56 year old obese male with a PMH of A. fib on long-term anticoagulation, hx. of ventricular arrhythmias s/p ICD, mixed systolic- diastolic CHF and idiopathic cardiomyopathy, CKD stage 3, chronic lymphedema and recurrent cellulitis of b/l LE, insulin dependent DM2, HTN, hypothyroidism - presents with worsening cellulitic, lymphedema and worsening vision of L eye 04/07 patient refusing most of his IV medications appreciate ID input - will switch to Doxycycline transfer back to [facility] Outpatient follow-up with Dr. Zamora, ophthalmology Patient has been trying to be discharged and sign out AMA earlier; appreciate psych input - they state he has mental capacity for medical decision making. He is agreeable to stay for now. ID consulted for abx. outpatient ophthalmology follow-up Chronic Lymphedema Bilateral Lower Extremity Cellulitis swelling of the lower extremity, chronically failed outpatient antibiotics sent over here by wound care for IV abx. allergies noted; was started on Vanco and Aztreonam wound care consult placed ID consulted Vision Loss patient with chronic vision loss of R eye states his L eye is becoming worse for the past few years, but acutely worse since the weekend ophthalmology aware, recommended outpatient treatment, no acute treatment necessary - official consult pending A. Fib can continue Eliquis as per ophtho continue Coreg for rate control Chronic Mixed Systolic-Diastolic CHF Idiopathic Cardiomyopathy currently on Lasix 40mg IV due to lymphedema above will switch to oral Lasix in 1-2 days CKD stage 3 creatinine - 2.3; at or close to baseline avoid nephrotoxic agents when able Insulin dependent DM2 Levemir 35 units BID and sliding scale BSGs are stable DVT ppx Eliquis FULL CODE Total time spent on discharge = 50 minutes This includes examination of the patient, discharge planning, medication reconciliation, and communication with other providers. Discharge Instructions Please follow-up your primary care physician Patient must follow-up with Dr. Zamora, ophthalmology, around Monday or Monday (April 10 or April 11) You will be discharged with doxycycline 100mg twice a day for 12 days
[2017-04-07 15:59] VITALS: BP 146/84; PULSE 61; TEMP 36.8; O2SAT 95
[2017-04-07 16:29] VITALS: BP 146/84; PULSE 61; TEMP 36.8; O2SAT 95
== END 2017-04-07 16:45 | DRG 603 ==
LOC: EDBD 11:07 → C.EDA 11:08 → C.MS4W 17:16 → ENRESERV 17:48
PROVIDERS: ADMIT Hospitalist; ATTEND Family Medicine
DX: L03.115 Cellulitis of right lower limb (principal); L97.929 Non-pressure chronic ulcer of unspecified part of left lower leg with unspecified severity; L97.919 Non-pressure chronic ulcer of unspecified part of right lower leg with unspecified severity; I50.42 Chronic combined systolic (congestive) and diastolic (congestive) heart failure; I42.9 Cardiomyopathy, unspecified; I13.0 Hypertensive heart and chronic kidney disease with heart failure and stage 1 through stage 4 chronic kidney disease, or unspecified chronic kidney disease; I89.0 Lymphedema, not elsewhere classified; L03.116 Cellulitis of left lower limb; E11.3591 Type 2 diabetes mellitus with proliferative diabetic retinopathy without macular edema, right eye; H43.11 Vitreous hemorrhage, right eye; I87.8 Other specified disorders of veins; H54.3 Unqualified visual loss, both eyes; I25.10 Atherosclerotic heart disease of native coronary artery without angina pectoris; N18.3 Chronic kidney disease, stage 3 (moderate); I25.2 Old myocardial infarction; I48.2 Chronic atrial fibrillation; E11.22 Type 2 diabetes mellitus with diabetic chronic kidney disease; E78.5 Hyperlipidemia, unspecified; E03.9 Hypothyroidism, unspecified; E66.9 Obesity, unspecified; Z79.899 Other long term (current) drug therapy; Z79.01 Long term (current) use of anticoagulants; Z79.4 Long term (current) use of insulin; Z79.82 Long term (current) use of aspirin; Z86.73 Personal history of transient ischemic attack (TIA), and cerebral infarction without residual deficits; Z86.711 Personal history of pulmonary embolism; Z95.810 Presence of automatic (implantable) cardiac defibrillator; Z68.36 Body mass index [BMI] 36.0-36.9, adult

== ENCOUNTER → 2017-04-20 | Outpatient (CLI) | payer OTHER ==
[~2017-04-20] MED LIST changes: +ACET650S10 PR; +AMOX500C3 PO; +AMX500 PO; -APIX1TAB PO; +APIX1TAB3 PO; -BACI500O11 TOP; +CIPR-255 PO; +CLR10 PO; +CPR500 PO; +DEXT40GE PO; -DOCU100C31 PO; +DRGTP12 TOP; +DRGTP25 TD; +EFF75 PO; +FLM4 PO; -FRRS300 PO; -FURO80TA63 PO; +GLGKIT; +HYDR-3124 PO; +LCTX PO; +LEVO25TA PO; +LPT40 PO; +LSN25 PO; +LSX80 PO; +LVMI SQ; +MELA5TAB19 PO; +MOML PO; +MOMLX PO; +NVLG SQ; -NVLGI/PEN SQ; +NVLGIPEN SC; +NXM/40 PO; +NYSP EXT; +ONDA4TAB46 PO; -ONDA8TAB6 PO; -PANT40TA PO; +POTA10CA28 PO; +PREG1CAP28 PO; +SODIENE PR; +TORS20TA2 PO; +WARF5TAB90 PO
[2017-04-20 09:51] LABS: BASO % 0.5 %; BASO ABS # 0.04 K/uL (0-0.2); COMPLETE YES; EOS % 3.4 %; HEMATOCRIT 30.8 % (42-52); IG% 0.3 %; LYMPH ABS # 1.39 K/uL (1.2-3.4); MEAN CELL VOLUME 83.9 fL (80-100); MEAN CORPUSCULAR HEMOGLOBIN 25.3 pg (25-34); MEAN CORPUSCULAR HGB CONC 30.2 g/dl (32-36); MEAN PLATELET VOLUME 10.3 fL (7.4-10.4); MONO % 7.4 %; NEUT % 69.4 %; PLATELET COUNT 218 K/uL (130-400); RED BLOOD COUNT 3.67 M/uL (4.7-6.1)
--- NOTE | 2017-05-05 07:36 | CODING QUERY NO DIAGNOSIS ---
TREATMENT RENDERED WITHOUT A DIAGNOSIS Alfaro BALLISTIC TECHNICIAN, To promote full compliance with coding requirements relating to patient care, physician participation is requested in all cases of interpreter deaf uncertainty. Please assist us with providing a diagnosis/symptom for the test(s) below: A diagnosis/symptom was not documented on your Order. A valid diagnosis/symptom is required to bill all insurances. Please remember that we are unable to code a diagnosis of rule out, probable, possible, questionable, or suspected. Tests that require a diagnosis: * CBC W/AUTO DIFF DIAGNOSIS: DATE OF SERVICE: 04/20/17 Provider Signature: Date: Thank you Steve Kahn [facility] Information Management Once completed, please kindly fax back to [phone] For questions please call [phone]
== END | disposition home or self-care (01) ==
LOC: C.LABUPNIT 09:33
PROVIDERS: ATTEND Nurse Practitioner Family
DX: N18.4 Chronic kidney disease, stage 4 (severe) (principal); I80.221 Phlebitis and thrombophlebitis of right popliteal vein; L03.90 Cellulitis, unspecified

== ENCOUNTER → 2017-04-23 | Outpatient (CLI) | payer OTHER ==
[~2017-04-23] MED LIST changes: -DRGTP25 TD; -FLM4 PO; -LCTX PO; -LSX80 PO; -NVLGIPEN SC; -NYSP EXT; -WARF5TAB90 PO
[2017-04-23 09:12] LABS: INR 1.1 (0.9-1.1)
== END ==
LOC: C.LABUPNIT 10:44
PROVIDERS: ATTEND Nurse Practitioner Family
DX: I82.411 Acute embolism and thrombosis of right femoral vein (principal)

== ENCOUNTER → 2017-04-24 | Outpatient (CLI) | payer OTHER ==
[2017-04-24 08:43] LABS: BLOOD UREA NITROGEN 55 mg/dl (7-18); BUN/CREATININE RATIO 17.2 (10-20); CARBON DIOXIDE 28 mmol/L (21-32); CHLORIDE 102 mmol/L (98-107); GLUCOSE 176 mg/dl (70-99); POTASSIUM 4.2 mmol/L (3.5-5.1); SODIUM 138 mmol/L (136-145)
[2017-04-24 08:46] LABS: INR 1.1 (0.9-1.1); PROTHROMBIN TIME (PATIENT) 11.8 SECONDS (9.0-12.0)
== END ==
LOC: C.LABUPNIT 08:13
PROVIDERS: ATTEND Nurse Practitioner Family
DX: I80.291 Phlebitis and thrombophlebitis of other deep vessels of right lower extremity (principal); I48.91 Unspecified atrial fibrillation; E87.6 Hypokalemia

== ENCOUNTER → 2017-04-27 | Outpatient (CLI) | payer OTHER ==
[~2017-04-27] MED LIST changes: +DRGTP25 TD; +FLM4 PO; +LCTX PO; +LSX80 PO; +NVLGIPEN SC; +NYSP EXT; +WARF5TAB90 PO
[2017-04-27 10:01] LABS: BLOOD UREA NITROGEN 63 mg/dl (7-18); CALCIUM 8.1 mg/dl (8.5-10.1); CARBON DIOXIDE 27 mmol/L (21-32); CHLORIDE 104 mmol/L (98-107); GLUCOSE 155 mg/dl (70-99); POTASSIUM 4.5 mmol/L (3.5-5.1); SODIUM 137 mmol/L (136-145)
[2017-04-27 16:37] LABS: URINE PROTIEN/CREAT RATIO 2.9 (0-0.2); URINE TOTAL PROTEIN 243.8 mg/dl (0-11.9)
== END ==
LOC: C.LABUPNIT 08:53
PROVIDERS: ATTEND Nurse Practitioner Family
DX: E11.49 Type 2 diabetes mellitus with other diabetic neurological complication (principal); N18.9 Chronic kidney disease, unspecified

== ENCOUNTER → 2017-04-28 | Outpatient (CLI) | payer OTHER ==
[2017-04-28 09:18] LABS: BLOOD UREA NITROGEN 62 mg/dl (7-18); BUN/CREATININE RATIO 18.3 (10-20); CALCIUM 8.3 mg/dl (8.5-10.1); CARBON DIOXIDE 28 mmol/L (21-32); CHLORIDE 105 mmol/L (98-107); GLUCOSE 174 mg/dl (70-99); POTASSIUM 4.8 mmol/L (3.5-5.1); SODIUM 138 mmol/L (136-145)
== END ==
LOC: C.LABUPUNI 08:28
PROVIDERS: ATTEND Nurse Practitioner Family
DX: E11.49 Type 2 diabetes mellitus with other diabetic neurological complication (principal)

== ENCOUNTER 2017-05-01 12:36 | Inpatient (IN) | payer OTHER ==
[~2017-05-01] VITALS: Ht 203.2 cm; Wt 208.6 kg
[~2017-05-01 12:36] MED LIST changes: -ACET650S10 PR; -AMOX500C3 PO; -AMX500 PO; -CIPR-255 PO; -CLR10 PO; -CPR500 PO; -DEXT40GE PO; -DRGTP25 TD; -EFF75 PO; -FLM4 PO; -HYDR-3124 PO; -LCTX PO; -LPT40 PO; -LSX80 PO; -MOML PO; -NVLGIPEN SC; -NYSP EXT; -PREG1CAP28 PO; -SODIENE PR; -WARF5TAB90 PO
[2017-05-01] MEDS ORDERED: HYDR-3124 PO (13:05)
[2017-05-01] MEDS ORDERED: PREG1CAP28 PO (13:05)
--- NOTE | 2017-05-01 13:56 | DIAGNOSTIC IMAGING REPORT ---
CHEST ONE VIEW PORTABLE CLINICAL HISTORY: Chest pain and shortness of breath COMPARISON STUDY: April 04, 2017 FINDINGS: The heart remains enlarged. There is a left subclavian dual-chamber central venous pacemaker present. There is mild central pulmonary vascular congestion. There is no overt edema. There are no pleural effusions. There is no focal pulmonary consolidation.[ IMPRESSION: Cardiomegaly and radiographic evidence of mild pulmonary vascular congestion. No evidence of focal pulmonary consolidation. Electronically signed by: Richard Byrd M.D. 05/01/2017 1:55 PM Dictated Date/Time: 05/01/2017 1:54 PM
[2017-05-01 14:00] LABS: HEMATOCRIT 27.7 % (42-52); MEAN CELL VOLUME 84.2 fL (80-100); MEAN CORPUSCULAR HEMOGLOBIN 25.8 pg (25-34); MEAN CORPUSCULAR HGB CONC 30.7 g/dl (32-36); PLATELET COUNT 242 K/uL (130-400); RED BLOOD COUNT 3.29 M/uL (4.7-6.1); WHITE BLOOD COUNT 8.47 K/uL (4.8-10.8)
[2017-05-01 14:16] LABS: INR 1.1 (0.9-1.1); PARTIAL THROMBOPLASTIN RATIO 1.3; PROTHROMBIN TIME (PATIENT) 12.3 SECONDS (9.0-12.0)
[2017-05-01 14:21] LABS: CALCIUM 8.3 mg/dl (8.5-10.1); CREATININE 3.1 mg/dl (0.60-1.40); POTASSIUM 4.3 mmol/L (3.5-5.1)
[2017-05-01 14:27] LABS: ALB/GLOB RATIO 0.5 (0.9-2); CKMB/CK RATIO 3.1 (0-3.0)
[2017-05-01] MEDS ORDERED: FUROSEMIDE 40 MG/4 ML VIAL IV STA (14:30)
[2017-05-01] MEDS ORDERED: ACETAMINOPHEN 325 MG TAB PO PRN (16:30)
[2017-05-01] MEDS ORDERED: ONDANSETRON INJ 2 MG/ML 2 ML VIAL IV PRN (16:30)
[2017-05-01] MEDS ORDERED: GLUCAGON FOR INJ 1 MG VIAL SQ PRN (16:45)
[2017-05-01] MEDS ORDERED: GLUCOSE 40% GEL 15 GM TUBE PO PRN (16:45)
[2017-05-01] MEDS ORDERED: DEXTROSE 50% 50 ML SYR IV PRN (16:45)
[2017-05-01] MEDS ORDERED: GLUCOSE 10 TABS/TUBE PO PRN (16:45)
[2017-05-01] MEDS ORDERED: LPT40 PO (17:07)
[2017-05-01] MEDS ORDERED: CLR10 PO (17:07)
[2017-05-01] MEDS ORDERED: ASPIRIN 81 MG CHEW PO STA (17:26)
[2017-05-01] MEDS ORDERED: MAGNESIUM HYDROXIDE SUSP 30 ML UDC PO PRN (17:30)
[2017-05-01] MEDS ORDERED: hydrOXYzine HCL 25 MG TAB PO PRN (17:30)
[2017-05-01] MEDS ORDERED: BISACODYL 10 MG SUPP PR PRN (17:30)
[2017-05-01] MEDS ORDERED: ALBUTEROL HFA 8 GM INHALER INH PRN (17:30)
[2017-05-01 18:57] VITALS: BP 169/100; PULSE 60; TEMP 36.4; O2SAT 96; BMI 47.0
[2017-05-01] MEDS ORDERED: NITROGLYCERIN 0.4 MG SL PER TAB CHARGE SL PRN (19:00)
--- NOTE | 2017-05-01 19:17 | EMERGENCY ROOM VISIT NOTE ---
History Report prepared by Jesus: Harvey Hanna Under the Supervision of: Dr. rTu Schaffer M.D. First contact with patient: 13:42 Chief Complaint: OTHER COMPLAINT Stated Complaint: FLUID RETENTION History of Present Illness The patient is a 56 year old male who presents to the Emergency Room with complaints of generalized edema that began a couple of weeks ago. He has a past medical history of fluid retention. At this time, he was taken off of his Lasix medication. After this, he began gaining weight in "fluid". He states he gained about 40 pounds. He is also experiencing intermittent bilateral chest tightness that began 2 weeks ago. The chest pain is worse with exertion. He notes that he is sometimes short of breath as well. He has a history of stroke and a heart attack. He states that his current chest pain does not feel like his pain with his past heart attack. He describes his past heart attack beginning with a headache, which he does not have at this time. He is currently on Eliquis for his atrial fibrillation. He notes that his leg edema is getting worse. Source of History: patient Onset: a couple of weeks ago Position: other (global) Symptom Intensity: 40 pounds Quality: other (Fluid Retention/Weight Gain) Timing: worsening Associated Symptoms: + chest pain (tightness), + SOB, No headache Note: His bilateral leg edema is worsening. Review of Systems See HPI for pertinent positives & negatives. A total of 10 systems reviewed and were otherwise negative. Past Medical & Surgical Medical Problems: (1) Abdominal pain (2) CAD (coronary artery disease) (3) CHF (congestive heart failure) (4) Chronic a-fib (5) Diabetes mellitus, type II (6) Dyslipidemia (7) Heart attack (8) History of pulmonary embolus (PE) (9) History of stroke (10) HTN (hypertension) (11) Intractable nausea and vomiting (12) Ischemic cardiomyopathy (13) Obstructive hydrocephalus (14) MERY (obstructive sleep apnea) (15) Pulmonary embolism (16) Stage 3 chronic kidney disease (17) Systolic CHF Surgical Problems: (1) History of cholecystectomy Family History No pertinent family history Social History Smoking Status: Former Smoker Smokeless Tobacco Use: No Drug Use: none Marital Status: Housing Status: unknown Occupation Status: retired Current/Historical Medications Scheduled Apixaban (Eliquis), 5 MG PO BID Atorvastatin (Atorvastatin Calcium), 40 MG PO HS Carvedilol (Coreg), 25 MG PO BID Esomeprazole Magnesium (Nexium), 40 MG PO DAILY Fentanyl (Fentanyl), 12 MCG TOP CQ72HR Insulin Aspart (Novolog), 15 UNITS SQ TIDM Insulin Detemir (Levemir), 35 UNITS SQ BID Levothyroxine Sodium (Synthroid), 25 MCG PO DAILY Loratadine (Claritin), 10 MG PO DAILY Magnesium Hydroxide (Milk of Magnesia), 30 ML PO UD Melatonin (Melatonin), 10 MG PO HS Multiple Vitamins W/ Minerals (Theragran-M), 1 TAB PO QAM Polyethylene Glycol 3350 (Miralax), 17 GM PO DAILY Pregabalin (Lyrica), 75 MG PO BID Sennosides-Docusate Sodium (Sennalax-S), 2 TABS PO HS Trazodone Hcl (Trazodone), 50 MG PO HS Ursodiol (Ursodiol), 300 MG PO BID Venlafaxine Hcl (Venlafaxine Extended Rel), 75 MG PO DAILY Scheduled PRN Acetaminophen (Tylenol), 500 MG PO Q4 PRN for Pain or Fever Acetaminophen/Codeine (Tylenol W/Codeine #3), 1 TAB PO Q6 PRN for Pain Albuterol Hfa (Ventolin Hfa), 2 PUFFS INH Q6H PRN for Wheezing Bisacodyl (Dulcolax), 1 SUPP NH Q24H PRN for no bm past 2 days Hydroxyzine Hcl (Atarax), 25 MG PO QID PRN for Itching Nitroglycerin (Nitrostat), 0.4 MG UT UD PRN for Chest Pain Ondansetron Hcl (Zofran), 4-8 MG PO Q8 PRN for Nausea Miscellaneous Medications Glucagon (Glucagon Emergency Kit) Allergies Coded Allergies: Amoxicillin (Verified Allergy, Unknown, unknown, 04/04/17) Cephalosporins (Verified Allergy, Unknown, unknown, 04/04/17) Ciprofloxacin (Verified Allergy, Unknown, unknown, 04/04/17) Clindamycin (Verified Allergy, Unknown, unknown, 04/04/17) Iodinated Diagnostic Agents (Verified Allergy, Unknown, unknown, 04/04/17) Penicillins (Unverified Allergy, Unknown, unknown, 04/04/17) Perflutren (Verified Allergy, Unknown, PERFLUTREN LIPID MICROSPHERES, 04/04) Physical Exam Vital Signs Date Time Temp Pulse Resp B/P (MAP) Pulse Ox O2 Delivery O2 Flow Rate FiO2 05/01/17 15:58 61 18 149/93 98 Room Air 05/01/17 13:58 63 16 121/69 94 Room Air 05/01/17 13:36 98 Room Air 05/01/17 12:47 36.3 61 16 138/72 96 Room Air 05/01/17 12:46 60 Physical Exam Constitutional: Vital signs reviewed. Eyes: Pupils are equal round reactive to light. Conjunctiva are noninjected. ENT: Pharynx is clear without erythema or exudate. Mucous membranes are moist. Neck supple without meningeal signs. Respiratory: Clear to auscultation bilaterally. Breath sounds are equal bilaterally. Cardiovascular: Regular rate and rhythm. No rubs or gallops. GI: Soft, distended but nontender. Bowel sounds are present. Musculoskeletal: Bilateral lower extremity edema with erythema. No significant increased warmth. There is an open ulcer to the posterior right leg without drainage. Integumentary: No cyanosis. Neurological: The patient is awake and alert. No focal deficits. Psychiatric: Normal affect. Medical Decision & Procedures ER Provider Diagnostic Interpretation: Radiology results as stated below per my review and the radiologist's interpretation: CHEST ONE VIEW PORTABLE CLINICAL HISTORY: Chest pain and shortness of breath COMPARISON STUDY: April 04, 2017 FINDINGS: The heart remains enlarged. There is a left subclavian dual-chamber central venous pacemaker present. There is mild central pulmonary vascular congestion. There is no overt edema. There are no pleural effusions. There is no focal pulmonary consolidation. IMPRESSION: Cardiomegaly and radiographic evidence of mild pulmonary vascular congestion. No evidence of focal pulmonary consolidation. Electronically signed by: Richard Byrd M.D. 05/01/2017 1:55 PM Dictated Date/Time: 05/01/2017 1:54 PM Laboratory Results 05/01/17 13:15 05/01/17 13:15 Test 05/01/17 13:15 05/01/17 14:59 Red Blood Count 3.29 M/uL (4.7-6.1) Mean Corpuscular Volume 84.2 fL (80-100) Mean Corpuscular Hemoglobin 25.8 pg (25-34) Mean Corpuscular Hemoglobin Concent 30.7 g/dl (32-36) RDW Standard Deviation 53.3 fL (36.4-46.3) RDW Coefficient of Variation 17.4 % (11.5-14.5) Mean Platelet Volume 10.0 fL (7.4-10.4) Prothrombin Time 12.3 SECONDS (9.0-12.0) Prothromb Time International Ratio 1.1 (0.9-1.1) Activated Partial Thromboplast Time 32.9 SECONDS (21.0-31.0) Partial Thromboplastin Ratio 1.3 Anion Gap 7.0 mmol/L (3-11) Est Creatinine Clear Calc Drug Dose 51.3 ml/min Estimated GFR () 24.5 Estimated GFR (Non- 21.2 BUN/Creatinine Ratio 19.0 (10-20) Calcium Level 8.3 mg/dl (8.5-10.1) Total Bilirubin 0.4 mg/dl (0.2-1) Aspartate Amino Transf (AST/SGOT) 12 U/L (15-37) Alanine Aminotransferase (ALT/SGPT) 13 U/L (12-78) Alkaline Phosphatase 213 U/L (45-117) Total Creatine Kinase 182 U/L (39-308) Creatine Kinase MB 5.6 ng/ml (0.5-3.6) Creatine Kinase MB Ratio 3.1 (0-3.0) Pro-B-Type Natriuretic Peptide 5883 pg/ml (0-900) Total Protein 7.8 gm/dl (6.4-8.2) Albumin 2.7 gm/dl (3.4-5.0) Globulin 5.1 gm/dl (2.5-4.0) Albumin/Globulin Ratio 0.5 (0.9-2) Troponin I 0.016 ng/ml (0-0.045) Laboratory results as reviewed by me. Medications Administered Medications (Trade) Dose Ordered Sig/Miguel Route Start Time Stop Time Status Last Admin Dose Admin Furosemide (Lasix Inj) 40 mg NOW STAT IV 05/01/17 14:30 05/01/17 14:31 DC 05/01/17 14:30 40 MG ECG Indication: chest pain Rate (beats per minute): 60 Rhythm: other (Ventricular paced) Findings: no ectopy, other (QRS is 200 ms) ED Course 1342: The patient was evaluated in room B7. A complete history and physical exam was performed. 1430: Ordered Lasix Inj 40 mg IV 1436: I spoke with Veena Martínez, at this time. We discussed the patient's case. She will be evaluating the patient for further management and care. Medical Decision This is a 56-year-old male who presents with chest pain, shortness breath and fluid retention. Differential diagnosis includes unstable angina, KS, CHF, pulmonary edema, pleural effusion, ascites, anasarca, lymphedema. I did perform a limited focused review of portions of the patient's old chart on the electronic medical record. The patient was treated as an inpatient here on April 04, 2017 for chronic lymphedema, cellulitis, atrial fibrillation, and diabetes. He was treated with Doxycycline. He is on Eliquis for atrial fibrillation. He also has CKD. I did evaluate the patient as noted above. The patient has a history of coronary artery disease. He is presenting with exertional chest pain intermittently. He also has fluid retention since stopping his Lasix. IV access was established. The patient was placed on a continuous gambling monitor. I did order and personally review the patient's 12-lead EKG and chest x-ray as described above. His chest x-ray demonstrates some mild congestion. I did order and review the patient's blood work as noted in the electronic medical record. Troponin is not elevated. BNP is elevated. Creatinine is at baseline. I did treat patient with Lasix IV. I did discuss the case with the hospitalist and case operator for further evaluation in the hospital. Medication Reconcilliation Current Medication List: was personally reviewed by me Blood Pressure Screening Patient's blood pressure: Elevated blood pressure Blood pressure disposition: Referred to PCP Consults Time Called: [phone] Consulting Physician: Veena Martínez Returned Call: [phone] I spoke with Veena BORJAS of the [facility] Hospitalist Service. We discussed the patient and his results. The patient will be further evaluated by her. Impression Primary Impression: Exertional chest pain Additional Impressions: Lymphedema CKD (chronic kidney disease) Anemia Anticoagulated CHF (congestive heart failure) Scribe Attestation The scribe's documentation has been prepared under my direct and personally reviewed by me in its entirety. I confirm that the note above accurately reflects all work, treatment, procedures, and medical decision making performed by me. Departure Information Dispostion Being Evaluated By Hospitalist Referrals Roberta Xiao (PCP) Patient Instructions [facility] Problem Qualifiers Additional Impressions: CKD (chronic kidney disease) Chronic kidney disease stage: unspecified stage Qualified Codes: N18.9 - Chronic kidney disease, unspecified Anemia Anemia type: unspecified type Qualified Codes: D64.9 - Anemia, unspecified CHF (congestive heart failure) Congestive heart failure type: unspecified congestive heart failure type Congestive heart failure chronicity: unspecified congestive heart failure chronicity Qualified Codes: I50.9 - Heart failure, unspecified
[2017-05-01 20:00] VITALS: O2SAT 96
[2017-05-01 20:23] VITALS: BP 152/95; PULSE 63; TEMP 36.3; O2SAT 97
[2017-05-01] MEDS ORDERED: APIXABAN 2.5 MG TAB PO SCH (21:00)
[2017-05-01] MEDS: ACETAMINOPHEN/CODEINE 300/30MG TAB PO PRN (21:09)
--- NOTE | 2017-05-01 21:19 | History and Physical ---
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 Pt follows with [facility] cardiology. Pt was recently admitted at [facility] from April 04-2016 for bilateral LE cellulitis treated with vancomycin and aztreonam, discharged on doxycycline 12 day course. Then he was placed on Bactrim from 04/22. He states bilateral LE erythema continues to worsen. He reports sores on bilateral LE for a few weeks with clear drainage. Pt was seen by nephrology Dr. Tucker on 04/26, noted to have ARF (creat was 3.7 from baseline low 2's), at which time Bactrim, torsemide 40 mg daily, lisinopril, and potassium were held. Over the past few days patient reports increasing abdominal girth and increasing bilateral LE edema. He reports associated weight gain (40 lb per patient) over past few days. He is nonambulatory but reports associated SOB and dizziness upon transfers. He reports recent exertional substernal chest pressure when "overdoing it with his exercises." No radiation of pain. First episode was yesterday, then had another episode this morning. Upon rest the discomfort subsided after 20 minutes. He reports similar discomfort in the past with CHF exacerbation. No chest pain or SOB currently. He reports dry cough for past few weeks. He notes chronic intermittent R sided abdominal pain since cholecystectomy 7 months ago. Has ongoing vision difficulty for which he has seen ophthalmology. Reports feeling tired- states he did not sleep overnight due to a loud neighbor. Pt was treated with Lasix 40 mg IV in ER and voided afterward. Denies fever, chills, diaphoresis, rhinorrhea , sore throat, orthopnea, N/V/D, appetite loss, diarrhea, dysuria, frequency, focal weakness/ numbness. Pt reports history of multiple HI's. Denies h/o cardiac catheterization. Reports having stress test last year at [facility] but unsure of results. Past Medical/Surgical History Medical Problems: (1) CAD (coronary artery disease) Status: Chronic (2) Chronic a-fib Status: Chronic (3) Chronic CHF Permanent Comment: combined systolic and diastolic Status: Chronic (4) Chronic pain Status: Chronic (5) CKD (chronic kidney disease), stage IV Status: Chronic (6) Depression Status: Chronic (7) Diabetes mellitus, type II Status: Chronic (8) Dyslipidemia Status: Chronic (9) H/o sacral fracture Status: Chronic (10) Heart attack Status: Resolved (11) History of pulmonary embolus (PE) Status: Chronic (12) History of stroke Status: Chronic (13) HTN (hypertension) Status: Chronic (14) Hx ventricular arrythmia Status: Chronic (15) Idiopathic cardiomyopathy Status: Chronic (16) Ischemic cardiomyopathy Status: Resolved (17) Lymphedema Status: Chronic (18) Obesity, morbid, BMI 40.0-49.9 Status: Chronic (19) Obstructive hydrocephalus Status: Chronic (20) MERY (obstructive sleep apnea) Status: Chronic (21) Panic disorder Status: Chronic (22) Pulmonary embolism Status: Resolved (23) Right leg DVT Status: Chronic (24) Sleep apnea Permanent Comment: not on CPAP Status: Chronic (25) Systolic CHF Status: Chronic (26) Venous insufficiency Status: Chronic (27) Vision impairment Status: Chronic Surgical Problems: (1) H/O eye surgery Status: Chronic (2) History of brain shunt Status: Chronic (3) History of cholecystectomy Permanent Comment: 08/23/16 Status: Resolved (4) S/p pacemaker defibrillator Status: Chronic (5) S/P spinal surgery Status: Chronic (6) S/p vein filter Status: Chronic Family History FH: CAD (coronary artery disease) FATHER ( of [place] late 60's) Social History Smoking Status: Former Smoker Drug Use: none Marital Status: Housing status: other Occupational Status: retired Immunizations History of Influenza Vaccine: Unknown Multi-Drug Resistant 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 Allergies Coded Allergies: Amoxicillin (Verified Allergy, Unknown, unknown, 04/04/17) Cephalosporins (Verified Allergy, Unknown, unknown, 04/04/17) Ciprofloxacin (Verified Allergy, Unknown, unknown, 04/04/17) Clindamycin (Verified Allergy, Unknown, unknown, 04/04/17) Iodinated Diagnostic Agents (Verified Allergy, Unknown, unknown, 04/04/17) Penicillins (Unverified Allergy, Unknown, unknown, 04/04/17) Perflutren (Verified Allergy, Unknown, PERFLUTREN LIPID MICROSPHERES, 04/04) Home Medications Scheduled Apixaban (Eliquis), 5 MG PO BID Atorvastatin (Atorvastatin Calcium), 40 MG PO HS Carvedilol (Coreg), 25 MG PO BID Esomeprazole Magnesium (Nexium), 40 MG PO DAILY Fentanyl (Fentanyl), 12 MCG TOP [id number] Insulin Aspart (Novolog), 15 UNITS SQ TIDM Insulin Detemir (Levemir), 35 UNITS SQ BID Levothyroxine Sodium (Synthroid), 25 MCG PO DAILY Loratadine (Claritin), 10 MG PO DAILY Magnesium Hydroxide (Milk of Magnesia), 30 ML PO UD Melatonin (Melatonin), 10 MG PO HS Multiple Vitamins W/ Minerals (Theragran-M), 1 TAB PO QAM Polyethylene Glycol 3350 (Miralax), 17 GM PO DAILY Pregabalin (Lyrica), 75 MG PO BID Sennosides-Docusate Sodium (Sennalax-S), 2 TABS PO HS Trazodone Hcl (Trazodone), 50 MG PO HS Ursodiol (Ursodiol), 300 MG PO BID Venlafaxine Hcl (Venlafaxine Extended Rel), 75 MG PO DAILY Scheduled PRN Acetaminophen (Tylenol), 500 MG PO Q4 PRN for Pain or Fever Acetaminophen/Codeine (Tylenol W/Codeine #3), 1 TAB PO Q6 PRN for Pain Albuterol Hfa (Ventolin Hfa), 2 PUFFS INH Q6H PRN for Wheezing Bisacodyl (Dulcolax), 1 SUPP WV Q24H PRN for no bm past 2 days Hydroxyzine Hcl (Atarax), 25 MG PO QID PRN for Itching Nitroglycerin (Nitrostat), 0.4 MG UT UD PRN for Chest Pain Ondansetron Hcl (Zofran), 4-8 MG PO Q8 PRN for Nausea Miscellaneous Medications Glucagon (Glucagon Emergency Kit) Review of Systems Ten systems reviewed and negative except as noted in HPI. Physical Exam Vital Signs Date Time Temp Pulse Resp B/P (MAP) Pulse Ox O2 Delivery O2 Flow Rate FiO2 05/01/17 16:52 61 16 168/92 98 05/01/17 15:58 61 18 149/93 98 Room Air 05/01/17 13:58 63 16 121/69 94 Room Air 05/01/17 13:36 98 Room Air 05/01/17 12:47 36.3 61 16 138/72 96 Room Air 05/01/17 12:46 60 General Appearance: WD/WN, + obese, + pertinent finding (mildly somnolent but awakens and answers questions appropriately) Head: normocephalic, atraumatic Eyes: normal inspection, EOMI, sclerae normal ENT: hearing grossly normal, pharynx normal Neck: supple, trachea midline, + pertinent finding (no JVD noted) Respiratory/Chest: lungs clear, no respiratory distress, + decreased breath sounds, + pertinent finding (pacemaker present) Cardiovascular: regular rate, rhythm, no murmur Abdomen/GI: normal bowel sounds, soft, + pertinent finding (obese, protuberant abdomen, mild right mid abdominal tenderness) Extremities/Musculoskelatal: no calf tenderness, + pertinent finding ( bilateral LE edema) Neurologic/Psych: normal mood/affect, oriented x 3, + pertinent finding ( somnolent but awakens and answers questions appropriately) Skin: + pertinent finding (erythema of bilateral lower legs, multiple superficial wounds on RLE- medial calf, dorsum of foot, 1st toenail bed (nail is absent), yellow foul smelling drainage) Diagnostics Laboratory Results Results Past 24 Hours Test 05/01/17 13:15 05/01/17 14:59 Range/Units White Blood Count 8.47 4.8-10.8 K/uL Red Blood Count 3.29 4.7-6.1 M/uL Hemoglobin 8.5 14.0-18.0 g/dL Hematocrit 27.7 42-52 % Mean Corpuscular Volume 84.2 80-100 fL Mean Corpuscular Hemoglobin 25.8 25-34 pg Mean Corpuscular Hemoglobin Concent 30.7 32-36 g/dl RDW Standard Deviation 53.3 36.4-46.3 fL RDW Coefficient of Variation 17.4 11.5-14.5 % Platelet Count 242 130-400 K/uL Mean Platelet Volume 10.0 7.4-10.4 fL Prothrombin Time 12.3 9.0-12.0 SECONDS Prothromb Time International Ratio 1.1 0.9-1.1 Activated Partial Thromboplast Time 32.9 21.0-31.0 SECONDS Partial Thromboplastin Ratio 1.3 Sodium Level 139 136-145 mmol/L Potassium Level 4.3 3.5-5.1 mmol/L Chloride Level 105 98-107 mmol/L Carbon Dioxide Level 27 21-32 mmol/L Anion Gap 7.0 3-11 mmol/L Blood Urea Nitrogen 59 7-18 mg/dl Creatinine 3.10 0.60-1.40 mg/dl Est Creatinine Clear Calc Drug Dose 51.3 ml/min Estimated GFR () 24.5 Estimated GFR (Non- 21.2 BUN/Creatinine Ratio 19.0 10-20 Random Glucose 228 70-99 mg/dl Calcium Level 8.3 8.5-10.1 mg/dl Total Bilirubin 0.4 0.2-1 mg/dl Aspartate Amino Transf (AST/SGOT) 12 15-37 U/L Alanine Aminotransferase (ALT/SGPT) 13 12-78 U/L Alkaline Phosphatase 213 45-117 U/L Total Creatine Kinase 182 39-308 U/L Creatine Kinase MB 5.6 0.5-3.6 ng/ml Creatine Kinase MB Ratio 3.1 0-3.0 Pro-B-Type Natriuretic Peptide 5883 0-900 pg/ml Total Protein 7.8 6.4-8.2 gm/dl Albumin 2.7 3.4-5.0 gm/dl Globulin 5.1 2.5-4.0 gm/dl Albumin/Globulin Ratio 0.5 0.9-2 Troponin I 0.016 0-0.045 ng/ml Diagnostic Radiology CHEST ONE VIEW PORTABLE CLINICAL HISTORY: Chest pain and shortness of breath COMPARISON STUDY: April 04, 2017 FINDINGS: The heart remains enlarged. There is a left subclavian dual-chamber central venous pacemaker present. There is mild central pulmonary vascular congestion. There is no overt edema. There are no pleural effusions. There is no focal pulmonary consolidation.[ IMPRESSION: Cardiomegaly and radiographic evidence of mild pulmonary vascular congestion. No evidence of focal pulmonary consolidation. EKG ventricular paced rhythm, rate 60 Impression Assessment and Plan ACUTE ON CHRONIC CHF History of CAD, h/o systolic and diastolic CHF, idiopathic cardiomyopathy per records, echo 04/05/17- EF 55-60%, mild concentric LVH, left atrium severely dilated Presents with weight gain, increasing abdominal girth and LE edema, dyspnea and dizziness on exertion, dry cough, exertional CP Was on torsemide 40 mg daily as outpatient -> discontinued 5 days ago by nephro for BART CXR shows mild pulmonary vascular congestion; Pro-BNP elevated to ~5800 Initial troponin negative; EKG shows paced rhythm 40 mg IV Lasix given in ER R/o ACS- trend serial cardiac enzymes Interrogate pacemaker Monitor daily standing weight, I/O's- Vivas ordered for but patient refused Consult cardiology- Dr. Arredondo notified Will give additional 40 mg IV Lasix tonight Reassess for further diuresis in AM BART ON CKD STAGE IV Due to outpatient Bactrim use vs. decreased renal perfusion in CHF Baseline creatinine is low 2's -> increase to 3.7 as outpatient 04/26/17 -> Bactrim, lisinopril, and torsemide held by nephro -> improved to 3.1 today Monitor for worsening renal function while on IV diuretic Consult nephrology BILATERAL LE CELLULITIS Treated with vancomycin and aztreonam inpatient April 04-2016, discharged on 12 day course of doxycycline, Bactrim added 04/22/17 -> discontinued 04/26 Has persistent bilateral LE cellulitis, failed outpatient treatment Check wound culture RLE Start vancomycin and aztreonam Consult ID Consult wound care nurse ATRIAL FIBRILLATION Rate is controlled Continue Coreg Anticoagulated on Eliquis HYPOTHYROIDISM Continue levothyroxine DM TYPE 2 Continue Detemir Novolog sliding scale VITAMIN D DEFICIENCY Start ergocalciferol HISTORY OF DVT/ PE S/p IVC filter On Eliquis Anemia-slightly lower than baseline. Likely multifactorial including phlebotomy during recent hospitalization and ACD. CODE STATUS Full code per my discussion with the patient DISPOSITION Admit to telemetry Presents from [facility]; social service consult placed Patient seen in collaboration with Dr. Reyna. Please see her addendum. ADDENDUM: I have seen and examined the patient and agree with the assessment and plan above. Axel, DO VTE Prophylaxis VTE Risk Assessment Done? Y/N: Yes Risk Level: High Given or contraindicated: Other Anticoagulation
[2017-05-01 21:28] LABS: CKMB/CK RATIO 3.5 (0-3.0)
[2017-05-01] MEDS: CARVEDILOL 25 MG TAB PO SCH (21:50)
[2017-05-01] MEDS: URSODIOL 300 MG CAP PO SCH (21:50)
[2017-05-01] MEDS: ATORVASTATIN 40 MG TAB PO SCH (21:50)
[2017-05-01] MEDS: DOCUSATE SODIUM/SENNA 50/8.6MG TAB PO SCH (21:50)
[2017-05-01] MEDS: PREGABALIN 75 MG CAP PO SCH (21:50)
[2017-05-01] MEDS: TRAZODONE HCL 50 MG TAB PO SCH (21:51)
[2017-05-01] MEDS: APIXABAN 2.5 MG TAB PO SCH (21:51)
[2017-05-01] MEDS: INSULIN DETEMIR FLEXPEN/FLEX TOUCH 100 UNITS/ML 3ML SC SCH (21:52)
[2017-05-01] MEDS: INSULIN ASPART 100 UNITS/ML 3 ML PEN SC SCH (21:55)
[2017-05-01] MEDS ORDERED: FUROSEMIDE INJ 40 MG in SYRINGE 0 ML IV STA (22:02)
[2017-05-01] MEDS ORDERED: AZTREONAM CONSULT ACTIVE PRN ×2 (22:09)
[2017-05-01] MEDS ORDERED: VANCOMYCIN CONSULT ACTIVE PRN (22:09)
[2017-05-01] MEDS ORDERED: AZTREONAM 2000 MG in DEXTROSE 5% 100 ML IV SCH (22:30)
[2017-05-01] MEDS ORDERED: VANCOMYCIN INJ 2,750 MG in SODIUM CHLORIDE 0.9% 500ML 500 ML IV SCH (23:00)
[2017-05-01] MEDS: CHECK FENTANYL PATCH PLACEMENT SCH (23:47)
[2017-05-02] VITALS (8 sets, daily range): BP systolic 130–164; BP diastolic 76–101; PULSE 60–82; TEMP 36.4–36.7; O2SAT 94–99; Ht 203.2 cm; Wt 208.6 kg
[2017-05-02 03:12] LABS: HEMATOCRIT 26.7 % (42-52); MEAN CELL VOLUME 84.5 fL (80-100); MEAN CORPUSCULAR HEMOGLOBIN 25.6 pg (25-34); MEAN CORPUSCULAR HGB CONC 30.3 g/dl (32-36); MEAN PLATELET VOLUME 9.2 fL (7.4-10.4); PLATELET COUNT 210 K/uL (130-400); RED BLOOD COUNT 3.16 M/uL (4.7-6.1)
[2017-05-02 03:39] LABS: BLOOD UREA NITROGEN 57 mg/dl (7-18); BUN/CREATININE RATIO 20.4 (10-20); CARBON DIOXIDE 28 mmol/L (21-32); CHLORIDE 107 mmol/L (98-107); GLUCOSE 248 mg/dl (70-99); MAGNESIUM 2.5 mg/dl (1.8-2.4); POTASSIUM 4.5 mmol/L (3.5-5.1); SODIUM 140 mmol/L (136-145)
[2017-05-02 03:44] LABS: CKMB/CK RATIO 4.5 (0-3.0)
[2017-05-02] MEDS: LEVOTHYROXINE 25 MCG TAB PO SCH (05:41)
[2017-05-02] MEDS: AZTREONAM 2000 MG in DEXTROSE 5% 100 ML IV SCH ×3 (05:43→20:13)
[2017-05-02] MEDS: CHECK FENTANYL PATCH PLACEMENT SCH ×2 (08:00→15:32)
--- NOTE | 2017-05-02 08:29 | Clinical Documentation Query ---
CLINICAL DOCUMENTATION QUERY 56 year old male who presents to the Emergency Room with complaints of generalized edema, weight gain, and intermittent chest tightness. The H&P states, "Acute on chronic CHF with h/o systolic and diastolic CHF. I professional information coder cannot make the assumption that the past medical history is linked to current presenting condition. In your clinical opinion is this patient being managed for: ( x ) Acute on chronic systolic and diastolic CHF treated with IV Lasix ( ) Not Agree ( ) Other explanation of clinical findings (Please Explain) ( ) Unable to determine (Please Define) ( ) Need to Discuss The medical record reflects the following clinical findings, treatment, and risk factors. Clinical Indicators: Weight gain, chest tightness, decreased breath sounds, & bilateral lower extremity edema Treatment: IV Lasix, telemetry, I/O's, daily weights, Risk Factors: Age, hx of chronic systolic and diastolic chf, afib, ckd, htn, and cardiomyopathy Please clarify and document your clinical opinion in the progress notes and discharge summary. Terms such as "probable", "suspected", "likely", "questionable", "possible", or "still to be ruled out" are acceptable. IF IN AGREEMENT, YOU MUST DOCUMENT ABOVE DIAGNOSTIC STATEMENT IN DAILY PROGRESS NOTES AND DISCHARGE SUMMARY. This document is not part of the patient's record. Thank You, Familia Grey RN [phone]
[2017-05-02] MEDS: CEROVITE ADV FORMULA TAB PO SCH (08:55)
[2017-05-02] MEDS: PANTOprazole SOD 40 MG TAB PO SCH (08:55)
[2017-05-02] MEDS: LORATADINE 10 MG TAB PO SCH (08:55)
[2017-05-02] MEDS: URSODIOL 300 MG CAP PO SCH ×2 (08:55→20:04)
[2017-05-02] MEDS: POLYETHYLENE (MIRALAX) 17 GM PACK PO SCH (08:55)
[2017-05-02] MEDS: VENLAFAXINE HCL XR 75 MG CAPXR PO SCH (08:55)
[2017-05-02] MEDS: CARVEDILOL 25 MG TAB PO SCH ×2 (08:56→20:05)
[2017-05-02] MEDS: APIXABAN 2.5 MG TAB PO SCH ×2 (08:56→20:03)
[2017-05-02] MEDS: PREGABALIN 75 MG CAP PO SCH ×2 (08:57→20:03)
[2017-05-02] MEDS ORDERED: ERGOCALCIFEROL 50,000 INTER.UNIT CAP PO SCH (09:00)
[2017-05-02] MEDS: INSULIN ASPART 100 UNITS/ML 3 ML PEN SC SCH ×4 (09:08→20:10)
[2017-05-02] MEDS: FENTANYL PATCH REMOVE & WASTE SCH (09:08)
[2017-05-02] MEDS: INSULIN DETEMIR FLEXPEN/FLEX TOUCH 100 UNITS/ML 3ML SC SCH ×2 (09:09→20:11)
[2017-05-02] MEDS: FENTANYL 12 MCG/HR TDSY TD SCH (09:10)
[2017-05-02] MEDS: ALBUMIN 25% 50 ML with FUROSEMIDE INJ 40 MG IV SCH ×6 (09:31→21:00)
--- NOTE | 2017-05-02 09:55 | Pharmacy Progress Note ---
Pharmacy Abx Initial Consult Date of Service May 02, 2017. Pharmacy Dosing Scope Date of Consult: 05/01/17 Consultation requested by: Lucien Rios PA-C Pharmacy is consulted to initiate IV VANCOMYCIN + AZTREONAM therapy, order appropriate labs and adjust drug dose/frequency. Subjective The patient is a 56 year old male admitted on May 01, 2017 at 16:27 for acute decompensated heart failure and worsening bilateral lower extremity cellulitis. Objective Height (Feet): 6 Height (Inches): 8.00 Weight (Kilograms): 209.900 Vital Signs (Past 12Hrs) Vital Signs Past 12 Hours Date Time Temp Pulse Resp B/P (MAP) Pulse Ox O2 Delivery O2 Flow Rate FiO2 05/02/17 08:00 36.5 66 14 164/96 (118) 95 05/02/17 04:00 96 Room Air 05/02/17 03:08 36.4 60 14 159/93 (115) 97 Room Air 05/02/17 00:31 36.4 63 15 161/101 (121) 94 Room Air 05/02/17 00:00 96 Room Air Lab Results (24Hrs) Laboratory Tests (24 Hours) Test 05/02/17 02:58 Total Creatine Kinase 113 U/L (39-308) White Blood Count 7.10 K/uL (4.8-10.8) Micro Results Date/Time Source Procedure Growth Status 05/01/17 00:00 Nasal MRSA DNA Surveillance Screen - Final Specimen Negative for MRSA by DNA Probe Complete 05/01/17 00:00 Drainage - Surface Leg Right Lower Gram Stain - Final Resulted 05/01/17 00:00 Drainage - Surface Leg Right Lower Wound Culture Pending Resulted Risk Factors for Resistance * Resident in a skilled nursing or extended-care facility ([facility]) * Hospitalization for 48 hours or more within the past 90 days ([facility] 04/04-) * Antimicrobial use within the last 90 days (Vancomycin, Aztreonam, Doxycycline and Bactrim) Assessment & Plan Assessment * 56 year old male ordered Vancomycin + Aztreonam for bilateral lower extremity cellulitis failing outpatient treatment. He had received Vancomycin + Aztreonam for lower ext cellulitis when admitted to the hospital 03/2017. He was transitioned to PO Doxycycline x 12 days then placed on Bactrim PO afterwards due to worsening cellulitis. Given this patient's body habitus, perhaps the doses of these PO ABX were inadequate. * He does appear to have BART, admission SCr up to 3.1, baseline ~1.9-2.2. BART possibly secondary to ADHF +/- medication induced (Bactrim) * He is afebrile, WBC not elevated, VSS * Pharmacy has dosed vancomycin for this patient on several occasions in the past. Will use data from these prior admissions to guide dosing. Plan Vancomycin IV * Loading dose: 2750 mg (14.2 mg/kg) given x 1 last night * Maintenance dose: 1750 mg IV (~9 mg/kg) every 24 hours; this dose was chosen based upon prior admits w/ BART and similar weight and SCr values. This dose has produced therapeutic troughs in the past. * Goal trough level for cellulitis : 10 to 20 mcg/mL; higher levels may be required if an organism is cultured w/ a CHUY > 1 * Trough level ordered for 05/04/17 (with 3rd maintenance dose) Aztreonam * eCrCl 50-60cc/min; no dosage reduction required unless eCrCl is less than 30cc /min. Continue 2gm IV Q 8 hrs given pt's BMI Pharmacy will continue to follow and will adjust dose/frequency as necessary. Thank you.
--- NOTE | 2017-05-02 11:08 | Medical Consult ---
Consultation Date of Consultation: May 02, 2017. Attending Physician: Tonny Mason M.D. Reason for Consultation: Bilateral lower extremity cellulitis, failure of outpatient therapy History of Present Illness 56-year-old male with complicated past medical history including diabetes mellitus, systolic and diastolic heart failure, chronic kidney disease, atrial fibrillation status post pacemaker, with chronic lower extremity lymphedema and venous stasis disease. Has had history of recurrent cellulitis and was hospitalized in March for cellulitis, treated with vancomycin and aztreonam, and discharged on doxycycline. Had worsening erythema of his legs, and was started on Bactrim April 22, but developed rising creatinine and so Bactrim was discontinued. He has developed worsening swelling and fluid retention with decreasing erythema, and has been admitted to the hospital for further management. He has been started on IV vancomycin and aztreonam. Cultures are pending. Has had chronic ulceration of his right calf. No report of significant fever. Has had some intermittent abdominal pain. Past Medical/Surgical History Medical Problems: (1) Altered mental status Status: Acute (2) Anemia Status: Acute (3) Anemia Status: Acute (4) Cellulitis Status: Acute (5) Cellulitis Status: Acute (6) CHF (congestive heart failure) Status: Acute (7) Confusion Status: Acute (8) Deep vein thrombosis Status: Acute (9) Hypoglycemia Status: Acute (10) Hypoxia Status: Acute (11) Vitreous hemorrhage Status: Acute Medical Problems: (1) CAD (coronary artery disease) (2) Chronic a-fib (3) Chronic CHF (4) Chronic pain (5) CKD (chronic kidney disease), stage IV (6) Depression (7) Diabetes mellitus, type II (8) Dyslipidemia (9) H/o sacral fracture (10) Heart attack (11) History of pulmonary embolus (PE) (12) History of stroke (13) HTN (hypertension) (14) Hx ventricular arrythmia (15) Idiopathic cardiomyopathy (16) Ischemic cardiomyopathy (17) Lymphedema (18) Obesity, morbid, BMI 40.0-49.9 (19) Obstructive hydrocephalus (20) MERY (obstructive sleep apnea) (21) Panic disorder (22) Pulmonary embolism (23) Right leg DVT (24) Sleep apnea (25) Systolic CHF (26) Venous insufficiency (27) Vision impairment Surgical Problems: (1) H/O eye surgery (2) History of brain shunt (3) History of cholecystectomy (4) S/p pacemaker defibrillator (5) S/P spinal surgery (6) S/p vein filter Family History FH: CAD (coronary artery disease) FATHER ( of [place] late 60's) Social History Smoking Status: Former Smoker Smokeless Tobacco Use: No Drug Use: none Marital Status: Housing Status: unknown Occupation Status: retired Allergies Coded Allergies: Amoxicillin (Verified Allergy, Unknown, unknown, 04/04/17) Cephalosporins (Verified Allergy, Unknown, unknown, 04/04/17) Ciprofloxacin (Verified Allergy, Unknown, unknown, 04/04/17) Clindamycin (Verified Allergy, Unknown, unknown, 04/04/17) Iodinated Diagnostic Agents (Verified Allergy, Unknown, unknown, 04/04/17) Penicillins (Unverified Allergy, Unknown, unknown, 04/04/17) Perflutren (Verified Allergy, Unknown, PERFLUTREN LIPID MICROSPHERES, 04/04) Current Inpatient Medications Current Inpatient Medications Medications (Trade) Dose Ordered Sig/Miguel Route Start Time Stop Time Status Last Admin Dose Admin Acetaminophen (Tylenol Tab) 650 mg Q4H PRN PO 05/01/17 16:30 05/31/17 16:29 Ondansetron HCl (Zofran Inj) 4 mg Q6H PRN IV 05/01/17 16:30 05/31/17 16:29 Insulin Aspart (novoLOG ASPART) SLIDING SCALE If C... ACHS SC 05/01/17 21:00 05/31/17 20:59 05/02/17 09:08 15 UNITS Glucose (Glucose 40% Gel) 15-30 GRAMS 15 GRAMS... UD PRN PO 05/01/17 16:45 05/31/17 16:44 Glucose (Glucose Chew Tab) 4-8 Tablets 4 Tabl... UD PRN PO 05/01/17 16:45 05/31/17 16:44 Dextrose (Dextrose 50% 50ML Syringe) 25-50ML OF 50% DW IV FOR... UD PRN IV 05/01/17 16:45 05/31/17 16:44 Glucagon (Glucagon Inj) 1 mg UD PRN SQ 05/01/17 16:45 05/31/17 16:44 Acetaminophen/ Codeine Phosphate (Tylenol w/ Codeine #3 Tab) 1 tab Q6 PRN PO 05/01/17 17:30 05/31/17 17:29 05/01/17 21:09 1 TAB Albuterol (Ventolin Hfa Inhaler) 2 puffs Q6H PRN INH 05/01/17 17:30 05/31/17 17:29 Atorvastatin Calcium (Lipitor Tab) 80 mg HS PO 05/01/17 21:00 05/31/17 20:59 05/01/17 21:50 80 MG Bisacodyl (Dulcolax Supp) 10 mg Q24H PRN PA 05/01/17 17:30 05/31/17 17:29 Carvedilol (Coreg Tab) 25 mg BID PO 05/01/17 21:00 05/31/17 20:59 05/02/17 08:56 25 MG Fentanyl (Duragesic Patch) 12 mcg Q3D@0900 TD 05/02/17 09:00 05/16/17 08:59 05/02/17 09:10 12 MCG Hydroxyzine HCl (Vistaril Tab) 25 mg QID PRN PO 05/01/17 17:30 05/31/17 17:29 Levothyroxine Sodium (Synthroid Tab) 25 mcg DAILYBB PO 05/02/17 06:00 06/01/17 06:59 05/02/17 05:41 25 MCG Loratadine (Claritin Tab) 10 mg DAILY PO 05/02/17 09:00 06/01/17 08:59 05/02/17 08:55 10 MG Magnesium Hydroxide (Milk Of Magnesia Susp) 30 ml DAILY PRN PO 05/01/17 17:30 05/31/17 17:29 Multivitamins/ Minerals (Multivitamin W/ Minerals Tab) 1 tab QAM PO 05/02/17 09:00 06/01/17 08:59 05/02/17 08:55 1 TAB Pregabalin (Lyrica Cap) 75 mg BID PO 05/01/17 21:00 05/31/17 20:59 05/02/17 08:57 75 MG Senna/Docusate Sodium (Senokot S Tab) 2 tab HS PO 05/01/17 21:00 05/31/17 20:59 05/01/17 21:50 2 TAB Trazodone HCl (Desyrel Tab) 50 mg HS PO 05/01/17 21:00 05/31/17 20:59 05/01/17 21:51 50 MG Ursodiol (Actigall Cap) 300 mg BID PO 05/01/17 21:00 05/31/17 20:59 05/02/17 08:55 300 MG Venlafaxine HCl (effeXOR EXTENDED REL CAP) 75 mg DAILY PO 05/02/17 09:00 06/01/17 08:59 05/02/17 08:55 75 MG Pantoprazole Sodium (Protonix Tab) 40 mg QAM PO 05/02/17 09:00 06/01/17 08:59 05/02/17 08:55 40 MG Insulin Detemir (Levemir Flexpen/ FlexTouch) 35 units BID SC 05/01/17 21:00 05/31/17 20:59 05/02/17 09:09 35 UNITS Polyethylene (Miralax Powder Packet) 17 gm QAM PO 05/02/17 09:00 06/01/17 08:59 05/02/17 08:55 17 GM Apixaban (Eliquis Tab) 5 mg BID PO 05/01/17 21:00 05/31/17 20:59 05/02/17 08:56 5 MG Miscellaneous (Fentanyl Patch Remove & Waste) 1 ea Q3D@0859 N/A 05/02/17 08:59 06/01/17 08:58 05/02/17 09:08 1 EA Miscellaneous Information (Check Fentanyl Patch Placement) 1 ea QS N/A 05/02/17 00:00 06/01/17 00:00 05/02/17 08:00 1 EA Nitroglycerin (Nitrostat Tab) 0.4 mg UD PRN SL 05/01/17 19:00 05/31/17 18:59 Ergocalciferol (Vitamin D Cap) 50,000 interunit Q7D@0900 PO 05/02/17 09:00 06/01/17 08:59 05/02/17 08:55 50,000 INTERUNIT Vancomycin HCl (Consult) 1 ea DAILY PRN N/A 05/01/17 22:09 05/31/17 22:08 Aztreonam (Consult) 1 ea DAILY PRN N/A 05/01/17 22:09 05/31/17 22:08 Aztreonam 2000 mg/ Dextrose 110 ml @ 110 mls/hr Q8 IV 05/02/17 06:00 05/12/17 05:59 05/02/17 05:43 110 MLS/HR Vancomycin HCl 1750 mg/Sodium Chloride 535 ml @ 200 mls/hr Q24H IV 05/02/17 23:00 05/12/17 22:59 Furosemide 40 mg/ Albumin Human 54 ml @ 54 mls/hr TID IV 05/02/17 09:00 05/05/17 08:59 05/02/17 09:31 54 MLS/HR Review of Systems Constitutional: + fatigue, No fever Eyes: + worsening of vision ENT: No problem reported Respiratory: + shortness of breath, + dyspnea on exertion Cardiovascular: + edema Abdomen: + pain, + nausea Musculoskeletal: + swelling Genitourinary - Male: No problem reported Neurologic: No problem reported Psychiatric: No problem reported Endocrine: No problem reported Hematologic / Lymphatic: No problem reported Integumentary: + new/changing skin lesions Allergic / Immunologic: No problem reported Physical Exam Date Time Temp Pulse Resp B/P (MAP) Pulse Ox O2 Delivery O2 Flow Rate FiO2 05/02/17 10:42 Room Air 05/02/17 08:00 Room Air 05/02/17 08:00 36.5 66 14 164/96 (118) 95 05/02/17 04:00 96 Room Air 05/02/17 03:08 36.4 60 14 159/93 (115) 97 Room Air 05/02/17 00:31 36.4 63 15 161/101 (121) 94 Room Air 05/02/17 00:00 96 Room Air 05/01/17 20:23 36.3 63 17 152/95 (114) 97 Room Air 05/01/17 20:00 96 Room Air 05/01/17 18:57 36.4 60 12 169/100 96 Room Air 05/01/17 16:52 61 16 168/92 98 05/01/17 15:58 61 18 149/93 98 Room Air 05/01/17 13:58 63 16 121/69 94 Room Air 05/01/17 13:36 98 Room Air 05/01/17 12:47 36.3 61 16 138/72 96 Room Air 05/01/17 12:46 60 General Appearance: WD/WN, no apparent distress, + obese Head: normocephalic, atraumatic Eyes: normal inspection, EOMI, sclerae normal ENT: normal ENT inspection, pharynx normal Neck: supple, no adenopathy, thyroid normal, trachea midline Respiratory/Chest: chest non-tender, lungs clear, no respiratory distress, no accessory muscle use, + decreased breath sounds Cardiovascular: regular rate, rhythm, no gallop, no murmur Abdomen/GI: normal bowel sounds, non tender Back: normal inspection, no CVA tenderness Extremities/Musculoskelatal: + inflammation, + swelling Neurologic/Psych: alert, oriented x 3 Skin: normal color, no rash, + pertinent finding (Bilateral lower extremity chronic venous stasis disease, some surrounding erythema, ulceration of right calf) Lymphatic: no adenopathy Laboratory Results RUN DATE: 05/02/17 [facility] LAB PAGE 1 RUN TIME: 075 Specimen Inquiry [id number] LOC: Naila # : [id number] AGE/SX: 56/M ROOM: 12 REG : 05/01/[address]: Nathan Recinos MD : 1960 BED: 1 DIS : STATUS: ADM IN TLOC: SPEC #: [id number] MILEY: 05/01/17-UNK STATUS: RES REQ #: [id number] RECD: 05/01/[address] [facility] [address]: Dali Rios PA-C SOURCE: DRAIN-SURF ENTR: 05/01/17-[address] [facility] [address]: Carmelita Rivas MD SPDESC: LEG Darshan Conroy MD, Thomas O. , Veena Moreno ., Cora [place] , DO Russosofiya, Nathan Mao MD ORDERED: [facility] COMMENTS: Has Specimen Been Obtained/Collected? Y Procedure Result Verified Site GRAM STAIN Final 05/02/17-5179 RESULT RARE WBCs SEEN MANY GRAM POSITIVE COCCI FEW GRAM NEGATIVE BACILLI SURFACE WOUND CULTURE PENDING Last 24 Hours Test 05/01/17 13:15 05/01/17 14:59 05/01/17 18:46 05/01/17 20:50 White Blood Count 8.47 K/uL Red Blood Count 3.29 M/uL Hemoglobin 8.5 g/dL Hematocrit 27.7 % Mean Corpuscular Volume 84.2 fL Mean Corpuscular Hemoglobin 25.8 pg Mean Corpuscular Hemoglobin Concent 30.7 g/dl RDW Standard Deviation 53.3 fL RDW Coefficient of Variation 17.4 % Platelet Count 242 K/uL Mean Platelet Volume 10.0 fL Prothrombin Time 12.3 SECONDS Prothromb Time International Ratio 1.1 Activated Partial Thromboplast Time 32.9 SECONDS Partial Thromboplastin Ratio 1.3 Sodium Level 139 mmol/L Potassium Level 4.3 mmol/L Chloride Level 105 mmol/L Carbon Dioxide Level 27 mmol/L Anion Gap 7.0 mmol/L Blood Urea Nitrogen 59 mg/dl Creatinine 3.10 mg/dl Est Creatinine Clear Calc Drug Dose 51.3 ml/min Estimated GFR () 24.5 Estimated GFR (Non- 21.2 BUN/Creatinine Ratio 19.0 Random Glucose 228 mg/dl Calcium Level 8.3 mg/dl Total Bilirubin 0.4 mg/dl Aspartate Amino Transf (AST/SGOT) 12 U/L Alanine Aminotransferase (ALT/SGPT) 13 U/L Alkaline Phosphatase 213 U/L Total Creatine Kinase 182 U/L 150 U/L Creatine Kinase MB 5.6 ng/ml 5.2 ng/ml Creatine Kinase MB Ratio 3.1 3.5 Pro-B-Type Natriuretic Peptide 5883 pg/ml Total Protein 7.8 gm/dl Albumin 2.7 gm/dl Globulin 5.1 gm/dl Albumin/Globulin Ratio 0.5 Troponin I 0.016 ng/ml < 0.015 ng/ml Bedside Glucose 308 mg/dl 259 mg/dl Test 05/02/17 02:58 05/02/17 07:03 White Blood Count 7.10 K/uL Red Blood Count 3.16 M/uL Hemoglobin 8.1 g/dL Hematocrit 26.7 % Mean Corpuscular Volume 84.5 fL Mean Corpuscular Hemoglobin 25.6 pg Mean Corpuscular Hemoglobin Concent 30.3 g/dl RDW Standard Deviation 53.2 fL RDW Coefficient of Variation 17.3 % Platelet Count 210 K/uL Mean Platelet Volume 9.2 fL Sodium Level 140 mmol/L Potassium Level 4.5 mmol/L Chloride Level 107 mmol/L Carbon Dioxide Level 28 mmol/L Anion Gap 5.0 mmol/L Blood Urea Nitrogen 57 mg/dl Creatinine 2.80 mg/dl Est Creatinine Clear Calc Drug Dose 55.7 ml/min Estimated GFR () 27.8 Estimated GFR (Non- 24.0 BUN/Creatinine Ratio 20.4 Random Glucose 248 mg/dl Calcium Level 8.0 mg/dl Magnesium Level 2.5 mg/dl Total Creatine Kinase 113 U/L Creatine Kinase MB 5.1 ng/ml Creatine Kinase MB Ratio 4.5 Troponin I < 0.015 ng/ml Bedside Glucose 209 mg/dl Patient Name: MARICEL BILLY Unit Number: [id number] Dictated: 05/01/171353 Transcribed: 05/01/171353 ARG Printed Date/Time: [~ rep prt dt]/[~ rep prt tm] [~ rep ct labl] - [~ rep ct ivnm] [facility] [place] [address] Dictated: 05/01/171353 Transcribed: 05/01/171353 ARG Printed Date/Time: [~ rep prt dt]/[~ rep prt tm] [~ rep ct labl] - [~ rep ct ivnm] DIAGNOSTIC IMAGING [~ rep ct add3]] CHEST ONE VIEW PORTABLE CLINICAL HISTORY: Chest pain and shortness of breath COMPARISON STUDY: April 04, 2017 FINDINGS: The heart remains enlarged. There is a left subclavian dual-chamber central venous pacemaker present. There is mild central pulmonary vascular congestion. There is no overt edema. There are no pleural effusions. There is no focal pulmonary consolidation.[ IMPRESSION: Cardiomegaly and radiographic evidence of mild pulmonary vascular congestion. No evidence of focal pulmonary consolidation. Electronically signed by: Richard Byrd M.D. 05/01/2017 1:55 PM Dictated Date/Time: 05/01/2017 1:54 PM The status of this report is Signed. Draft = Not yet reviewed or approved by Radiologist. Signed = Reviewed and approved by Radiologist. <AttendingPhy></AttendingPhy> <FamilyPhy>[place], Kaylor</FamilyPhy> < PrimaryPhy>[facility], Kaylor</PrimaryPhy> <UnitNumber>[id number]</UnitNumber> <VisitNumber>[id number]</VisitNumber> <PatientName>MARICEL BILLY</ PatientName> <DateOfBirth>1960</DateOfBirth> <Location>C.EDB</Location> < ServiceDate>05/01/17</ServiceDate> <MNE>ESINDI</MNE> <OrderingPhy>ED, PROTOCOL</ OrderingPhy> <OrderingPhyMNE>f rep ord dr spencer</OrderingPhyMNE> <DictatingPhyMNE> f rep dict dr spencer</DictatingPhyMNE> <CCListMNE>f rep ct mne</CCListMNE> < AdmittingPhyMNE>f pt admit dr psencer</AdmittingPhyMNE> <AttendingPhyMNE>f pt attend dr spencer</AttendingPhyMNE> <ConsultingPhyMNE>f pt consult dr spencer</ConsultingPhyMNE> <FamilyPhyMNE>f pt fam dr spencer</FamilyPhyMNE> <OtherPhyMNE>f pt other dr spencer</OtherPhyMNE> < PrimaryPhyMNE>f pt prim care dr spencer</PrimaryPhyMNE> <ReferringPhyMNE>f pt referring dr spencer</ReferringPhyMNE> Assessment & Plan Bilateral lower extremity cellulitis in the setting of chronic lymphedema and venous stasis disease. Current treatment with vancomycin and aztreonam appropriate given multiple antibiotic allergies. We will await final culture results and adjust antibiotics accordingly. Will follow.
[2017-05-02] MEDS: ACETAMINOPHEN/CODEINE 300/30MG TAB PO PRN ×3 (12:24→20:02)
--- NOTE | 2017-05-02 13:01 | Cardiology Consultation ---
Cardiology Consultation Date of Consultation: May 02, 2017 History of Present Illness Patient is a 56 year old male seen in cardiology consultation per the request of Dali Rios PA-C for cardiology assistance with management of congestive heart failure. The patient typically follows with [facility] cardiology. The patient had recent admissions in February to [facility]. Post discharge he was transferred to the [facility] for rehabilitation and then he was readmitted to [facility] in March 2017. He recently established care with nephrology was found to have progressive renal insufficiency with previous creatinine in the low 2 range increasing to above 3 mg/dL. He was transferred to the [facility] for ongoing care. On arrival he complained of progressive lower extremity edema, significant weight gain, and exertional chest pressure. Has a history of lower extremity cellulitis and was seen by infectious disease and nephrology as well as cardiology today. At present, the patient is in no distress. Past Medical/Surgical History Problem List: Medical Problems: (1) CAD (coronary artery disease) (2) Chronic a-fib (3) Chronic CHF (4) Chronic pain (5) CKD (chronic kidney disease), stage IV (6) Depression (7) Diabetes mellitus, type II (8) Dyslipidemia (9) H/o sacral fracture (10) Heart attack (11) History of pulmonary embolus (PE) (12) History of stroke (13) HTN (hypertension) (14) Hx ventricular arrythmia (15) Idiopathic cardiomyopathy (16) Ischemic cardiomyopathy (17) Lymphedema (18) Obesity, morbid, BMI 40.0-49.9 (19) Obstructive hydrocephalus (20) MERY (obstructive sleep apnea) (21) Panic disorder (22) Pulmonary embolism (23) Right leg DVT (24) Sleep apnea (25) Systolic CHF (26) Venous insufficiency (27) Vision impairment Surgical Problems: (1) H/O eye surgery (2) History of brain shunt (3) History of cholecystectomy (4) S/p pacemaker defibrillator (5) S/P spinal surgery (6) S/p vein filter History Past Medical History: 1. History of chronic combined systolic and diastolic heart failure, past history of nonischemic cardiomyopathy with left ventricular systolic dysfunction the past, however on recent echocardiogram performed at [facility] in March 2017, his ejection fraction was normal at 55-60 % 2. History of [place] biventricular AICD 3. History of permanent atrial fibrillation 4. Hyperlipidemia 5. Hypertension 6. Diabetes mellitus 7. Obesity 8. Venous insufficiency 9. Recurrent lower extremity cellulitis 10. Chronic kidney disease, previously with stage III chronic kidney disease, with recent worsening kidney function Past Surgical History: 1. Initial AICD placement apparently took place in 2006 per his chart 2. EGD 2016 Social History: Nonsmoker denies use Family History: Family history of heart disorder in his father, brother and sister, details unknown Review Of Systems See above for pertinent positives & negatives. A total of 10 systems reviewed and were otherwise negative. Allergies Coded Allergies: Amoxicillin (Verified Allergy, Unknown, unknown, 04/04/17) Cephalosporins (Verified Allergy, Unknown, unknown, 04/04/17) Ciprofloxacin (Verified Allergy, Unknown, unknown, 04/04/17) Clindamycin (Verified Allergy, Unknown, unknown, 04/04/17) Iodinated Diagnostic Agents (Verified Allergy, Unknown, unknown, 04/04/17) Penicillins (Unverified Allergy, Unknown, unknown, 04/04/17) Perflutren (Verified Allergy, Unknown, PERFLUTREN LIPID MICROSPHERES, 04/04) Medications Reported Home Medications Medications Dose Route/Sig Max Daily Dose Days Date Category Dose Instructions Claritin (Loratadine) 10 Mg Tab 10 Mg PO DAILY 05/01/17 Reported Atorvastatin Calcium (Atorvastatin) 40 Mg Tab 40 Mg PO HS 05/01/17 Reported Atarax (Hydroxyzine Hcl) 25 Mg Tab 25 Mg PO QID PRN 05/01/17 Reported Lyrica (Pregabalin) 75 Mg Cap 75 Mg PO BID 05/01/17 Reported Zofran (Ondansetron HCl) 4 Mg Tab 4-8 Mg PO Q8 PRN 04/04/17 Reported Milk of Magnesia (Magnesium Hydroxide) 30 Ml Susp 30 Ml PO UD 04/04/17 Reported Glucagon Emergency Kit (Glucagon) 1 Mg Kit 04/04/17 Reported Fentanyl 12 Mcg Tdsy 12 Mcg TOP [id number] 04/04/17 Reported Novolog (Insulin Aspart) 100 Units/Ml Inj 15 Units SQ TIDM 04/04/17 Reported Levemir (Insulin Detemir) 100 Units/Ml Inj 35 Units SQ BID 04/04/17 Reported Eliquis (Apixaban) 5 Mg Tab 5 Mg PO BID 04/04/17 Reported Trazodone (Trazodone HCl) 50 Mg Tab 50 Mg PO HS 04/04/17 Reported Nexium (Esomeprazole Magnesium) 40 Mg Capcr 40 Mg PO DAILY 04/04/17 Reported Melatonin 5 Mg Tab 10 Mg PO HS 04/04/17 Reported Synthroid (Levothyroxine Sodium) 25 Mcg Tab 25 Mcg PO DAILY 04/04/17 Reported Tylenol W/Codeine #3 (Acetaminophen/Codeine Phosphate) 300 Mg/30 Mg Tab 1 Tab PO Q6 PRN 3 01/14/17 Rx max 3gm apap/24hr Tylenol (Acetaminophen) 500 Mg Tab 500 Mg PO Q4 PRN 12/07/16 Reported use for mild pain 1-3 or fever >101f max 3gm apap/24hr Ventolin Hfa (Albuterol) 200 Puffs/93292 Mcg Aers 2 Puffs INH Q6H PRN 12/07/16 Reported Dulcolax (Bisacodyl) 10 Mg Sup 1 Supp NV Q24H PRN 12/07/16 Reported Nitrostat (Nitroglycerin) 0.4 Mg Tab 0.4 Mg UT UD PRN 12/07/16 Reported Theragran-M (Multiple Vitamins W/ Minerals) 1 Tab Tab 1 Tab PO QAM 12/07/16 Reported Miralax (Polyethylene Glycol 3350) 1 Pow Pow 17 Gm PO DAILY 12/07/16 Reported Venlafaxine Extended Rel (Venlafaxine Hcl) 75 Mg Cap 75 Mg PO DAILY 11/15/16 Reported Ursodiol 300 Mg Cap 300 Mg PO BID 11/15/16 Reported Sennalax-S (Sennosides-Docusate Sodium) 1 Tab Tab 2 Tabs PO HS 11/15/16 Reported Coreg (Carvedilol) 25 Mg Tab 25 Mg PO BID 11/15/16 Reported Physical Exam Vital Signs (Last 8hrs): Last 8 Hrs Date Time Temp Pulse Resp B/P (MAP) Pulse Ox O2 Delivery O2 Flow Rate FiO2 05/02/17 12:00 Room Air 05/02/17 10:42 Room Air 05/02/17 08:00 Room Air 05/02/17 08:00 36.5 66 14 164/96 (118) 95 General Appearance: Chronically ill in appearance. Head: Normocephalic Atraumatic. Eyes: PERRLA, EOMI, conjunctiva and sclera clear Neck: Jugular venous distention consistent with right atrial pressure elevation Respiratory: Breath sounds clear to auscultation bilaterally. No w/r/r. Cardiovascular: Reg rate and rhythm no murmurs Abdomen: Obese, abdominal distention noted consistent with fluid retention Extremities: 3+ bilateral lower extremity edema, venous stasis changes, and multiple ulcerations on the tibial areas bilaterally, feet Neuro: No focal deficits. . Data Last Resulted 05/02/17 02:58 Last Resulted 05/02/17 02:58 Past 24 Hours Test 05/01/17 13:15 05/01/17 14:59 05/01/17 20:50 05/02/17 02:58 Range/Units Creatine Kinase MB 5.6 H 5.2 H 5.1 H 0.5-3.6 ng/ml Creatine Kinase MB Ratio 3.1 H 3.5 H 4.5 H 0-3.0 Prothromb Time International Ratio 1.1 0.9-1.1 Prothrombin Time 12.3 H 9.0-12.0 SECONDS Total Creatine Kinase 182 150 113 39-308 U/L Troponin I 0.016 < 0.015 < 0.015 0-0.045 ng/ml EKG performed revealed apparently: Paced rhythm at 60 bpm consistent with the patient's history of biventricular pacemaker AICD Assessment & Plan Impression: 56-year-old male 1. Acute on chronic diastolic heart failure, RV failure 2. Normal left ventricular ejection fraction on echocardiogram performed [address] [facility] [address] 3. History of chronic persistent atrial fibrillation, biventricular AICD, followed in [place] 4. Multifactorial lower extremity edema, heart failure, venous insufficiency, with severe edema, cellulitis 5. Acute kidney insufficiency on chronic kidney disease Plan: Agree with nephrology plan for 3 times a day furosemide 40 mg with albumin. Although Vivas catheter would increase the risk of potential iatrogenic UTI, given the patient's body habitus, and gross volume overload, my personal opinion is that he would benefit from Vivas catheter placement. He previously declined this recommendation, but I'm going to have another talk with him. The patient reports recent significant 40 pound weight gain. Review of his outpatient weights and his [facility] chart include that he was at the 350 pound weight level in March 2016 and up to anywhere from 374-396 [facility]. I feel the skin infection as life-threatening especially because he has an intracardiac device and is at risk for seeding to his AICD if bacteremia develops. Jaime Brumfield, DO
--- NOTE | 2017-05-02 16:20 | NEPHROLOGY CONSULTATION ---
DATE OF CONSULTATION: 05/02/2017 ATTENDING OF RECORD: Nathan Recinos MD REASON FOR CONSULTATION: BART and volume overload. HISTORY OF PRESENT ILLNESS: This is a 56-year-old male who I recently saw for the first time in the office on 04/26 for significant CKD. The patient with diabetes since 1981 with very poor vision secondary to retinal tears. No tobacco. The patient with hypertension since 1995. The patient states he has had 9 heart attacks and 6 strokes with some weakness in the right arm. Does have a defibrillator/pacemaker which he says he has been shocked 17 times between 3 different defibrillators as well as underlying AFib as well. 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 Follows with Dr. Kraus of [facility]. The patient was born with hydrocephalus, required procedure as a baby. The patient has had a poor appetite, significant chronic lymphedema, worse in the right leg with the chronic DVT. The patient has had multiple hospitalizations in both [facility] and [facility], for chronic lymphedema, cellulitis, AFib. The patient's baseline creatinine is in the low 2s, however, went up to 3.7 on the in the setting of Bactrim. The patient's lisinopril and Bactrim were held. The prison also stopped his diuretics and rechecked his lab work. The creatinine was trending down. The patient presented to the hospital with findings of shortness of breath. The patient states he has gained 40 pounds. Weight in the hospital was 210 kilograms. Weight on 04/26 was 170 kilograms. The patient presented with findings of worsening shortness of breath and was given a dose of Lasix. The patient this morning has not required any oxygen. Lungs are clear to auscultation. The patient is not showing signs of any shortness of breath. The patient though is on antibiotics for the recurrent cellulitis. PAST MEDICAL HISTORY: Skin cancer on his eyelid and tear duct many years ago, coronary artery disease with 9 heart attacks, positive stroke x6 with weakness in the right arm, history of AFib, history of hypertension since 1995, history of diabetes since 1981 with poor vision, history of hydrocephalus as a baby, history of chronic right leg DVT requiring Eliquis. PAST SURGICAL HISTORY: Defibrillator x3, 2 spinal surgeries, procedure as a baby for his hydrocephalus, cholecystectomy, IVC filter. FAMILY HISTORY: Significant for heart disease. SOCIAL HISTORY: . No smoking, no alcohol, no drugs. REVIEW OF SYSTEMS: No fatigue. Positive 30-kilo weight gain if weights are accurate. No fevers or chills. Positive headaches. Positive shortness of breath on admission, although denied shortness of breath this morning. Positive chronic lymphedema. No chest pain. Positive nausea. Positive poor vision. Positive nocturia. Positive arthritis in the back. No seizures. No tremors. No fainting. Positive itching. CURRENT MEDICATIONS: Vancomycin 1750 mg IV q. 24 hours, fentanyl 12 mcg patch every 3 days, Claritin 10 mg daily, multivitamin daily, Effexor 75 mg daily, Protonix 40 mg daily, MiraLax 17 g daily, vitamin D 50,000 units weekly, levothyroxine 25 mcg daily, aztreonam 2 g IV q. 8, sliding scale insulin, Lipitor 80 mg at night, Coreg 25 mg p.o. b.i.d., Lyrica 75 mg p.o. b.i.d., Senokot 2 tabs at night, trazodone 50 mg at night, ursodiol 300 mg p.o. b.i.d., Eliquis 5 mg p.o. b.i.d. PHYSICAL EXAMINATION: VITAL SIGNS: Temperature 36.4, pulse 60, respiratory rate 14, blood pressure 159/93 and satting 96% on room air. I's and O's 1500 and 1325 ounces. GENERAL: Awake, alert, oriented x3, obese. EYES: No scleral icterus. ENT: Moist mucous membranes. NECK: Supple. PULMONARY: Clear to auscultation. CARDIAC: Distant heart sounds. ABDOMEN: Bowel sounds are positive, distended. EXTREMITIES: +4 nonpitting chronic edema, woody appearing. NEUROLOGICAL: Difficulty walking. DERMATOLOGIC: Some chronic wounds of his lower extremities. LABORATORY DATA: White count 7, H&H 8.1 and 26.7, platelet count is 210. Sodium level is 140, potassium 4.5, chloride 107, bicarb is 28, BUN is 57, creatinine is 2.8, glucose 248, calcium is 8, mag is 2.5. Troponin is negative x3. Albumin is 2.7. Chest x-ray shows no evidence of focal pulmonary consolidation, mild pulmonary vascular congestion. ASSESSMENT AND PLAN: 1. Acute kidney injury on chronic kidney disease stage III, baseline creatinine in the low 2s, however tends to vary quite significantly based on volume status. The patient chronically fluid overloaded with significant chronic lymphedema. No indication for emergent dialysis at this time. I would like to try albumin with Lasix to try to help mobilize the third space fluid in his lower extremities. Creatinine may worsen during diuresis. 2. Infectious disease. Defer to primary hospitalist. Difficult in the setting of chronic venous stasis changes with significant lymphedema to determine whether there is an active infection or not. Currently being treated for cellulitis, although no fevers. White count is not elevated and the legs are not warm. However, the patient does have open wounds from a significant chronic venous stasis. Respectfully defer to primary hospitalist. 3. Anemia. Hemoglobin level in the 8s. The patient had an iron sat of 13% and appears to have an iron deficiency anemia with a ferritin of 85. Could benefit from IV iron; however, will discuss further with primary hospitalist. If indeed patient has active cellulitis, perhaps we should hold off on giving IV iron at this time and just follow hemoglobin levels. 4. Renal osteodystrophy. The patient with significant vitamin D deficiency with vitamin D of 8 and PTH of 308. Started on vitamin D 50,000 units weekly, which hopefully should improve both numbers. The patient overall with significant chronic lymphedema, likely from obesity and should improve with leg elevation and albumin with IV diuretics. We will follow creatinine function numbers and discuss further with primary hospitalist. I appreciate consultation. WANG
--- NOTE | 2017-05-02 19:19 | Progress Note ---
Internal Med Progress Note Date of Service: May 02, 2017. Provider Documentation: SUBJECTIVE: patient examined sitting comfortably on room air. denies chest pain or shortness of breath. OBJECTIVE: General Appearance: obese, no acute distress Head: normocephalic, atraumatic Eyes: normal inspection, EOMI ENT: hearing grossly normal, pharynx normal Neck: supple, trachea midline Respiratory/Chest: lungs clear, no respiratory distress, CTABL, pacemaker present Cardiovascular: regular rate, rhythm, no murmur Abdomen/GI: normal bowel sounds, soft, +bowel sounds Extremities/Musculoskelatal: no calf tenderness, very edematous lower extremities bilaterally with multiple superficial wounds on RLE- medial calf, dorsum of foot, 1st toenail bed (nail is absent), some drainage Neurologic/Psych: awake and alert and oriented ASSESSMENT & PLAN: This is a 56 y/o male with PMH of HTN, 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 (EF 55-60% on 04/05/2017 echo), Afib on Eliquis, s/p AICD/pacemaker, CAD per records, history of CVA, hx RLE DVT, CKD stage IV, DM type 2, lymphedema, with hospital admission for chronic lower extremity swelling and cellulitis BILATERAL LE CELLULITIS Has persistent bilateral LE cellulitis, failed outpatient treatment Treated with vancomycin and aztreonam inpatient April 04-2016, discharged on 12 day course of doxycycline, Bactrim added 04/22/17 -04/26 continue with Vancomycin and aztreonam, ID consult following Check wound culture RLE ACUTE ON CHRONIC CHF History of CAD, h/o systolic and diastolic CHF, idiopathic cardiomyopathy per records, echo 04/05/17- EF 55-60%, mild concentric LVH, left atrium severely dilated Presents with weight gain, increasing abdominal girth and LE edema, dyspnea and dizziness on exertion, dry cough, exertional CP Was on torsemide 40 mg daily as outpatient -> discontinued 5 days ago by nephro for BART Diuresis with Lasix 40 mg IV TID with albumin BART ON CKD STAGE IV Due to outpatient Bactrim use vs. decreased renal perfusion in CHF Baseline creatinine is low 2's -> increase to 3.7 as outpatient 04/26/17 -> Bactrim, lisinopril, and torsemide held by nephro -> improved to 3.1 today Monitor for worsening renal function while on IV diuretic, this may worsen with Lasix, Nephrology consult following ATRIAL FIBRILLATION Rate is controlled Continue Coreg Anticoagulated on Eliquis Anemia- will trend Hgb for now, nephrology consult suggest that patient may benefit from IV iron but will hold off on this treatment until cellulitis improves HYPOTHYROIDISM Continue levothyroxine DM TYPE 2 Continue Detemir Novolog sliding scale HISTORY OF DVT/ PE S/p IVC filter On Eliquis VITAMIN D DEFICIENCY Start ergocalciferol CODE STATUS Full code Vital Signs: Date Time Temp Pulse Resp B/P (MAP) Pulse Ox O2 Delivery O2 Flow Rate FiO2 05/02/17 16:17 Room Air 05/02/17 16:01 36.4 63 12 139/76 (97) 96 Room Air 05/02/17 13:24 36.5 69 15 147/85 (105) 94 Room Air 05/02/17 12:00 Room Air 05/02/17 10:42 Room Air 05/02/17 08:00 Room Air 05/02/17 08:00 36.5 66 14 164/96 (118) 95 05/02/17 04:00 96 Room Air 05/02/17 03:08 36.4 60 14 159/93 (115) 97 Room Air 05/02/17 00:31 36.4 63 15 161/101 (121) 94 Room Air 05/02/17 00:00 96 Room Air 05/01/17 20:23 36.3 63 17 152/95 (114) 97 Room Air 05/01/17 20:00 96 Room Air Lab Results: Results Past 24 Hours Test 05/01/17 20:50 05/02/17 02:58 05/02/17 07:03 05/02/17 11:01 Range/Units Bedside Glucose 259 209 240 70-99 mg/dl Total Creatine Kinase 150 113 39-308 U/L Creatine Kinase MB 5.2 5.1 0.5-3.6 ng/ml Creatine Kinase MB Ratio 3.5 4.5 0-3.0 Troponin I < 0.015 < 0.015 0-0.045 ng/ml White Blood Count 7.10 4.8-10.8 K/uL Red Blood Count 3.16 4.7-6.1 M/uL Hemoglobin 8.1 14.0-18.0 g/dL Hematocrit 26.7 42-52 % Mean Corpuscular Volume 84.5 80-100 fL Mean Corpuscular Hemoglobin 25.6 25-34 pg Mean Corpuscular Hemoglobin Concent 30.3 32-36 g/dl RDW Standard Deviation 53.2 36.4-46.3 fL RDW Coefficient of Variation 17.3 11.5-14.5 % Platelet Count 210 130-400 K/uL Mean Platelet Volume 9.2 7.4-10.4 fL Sodium Level 140 136-145 mmol/L Potassium Level 4.5 3.5-5.1 mmol/L Chloride Level 107 98-107 mmol/L Carbon Dioxide Level 28 21-32 mmol/L Anion Gap 5.0 3-11 mmol/L Blood Urea Nitrogen 57 7-18 mg/dl Creatinine 2.80 0.60-1.40 mg/dl Est Creatinine Clear Calc Drug Dose 55.7 ml/min Estimated GFR () 27.8 Estimated GFR (Non- 24.0 BUN/Creatinine Ratio 20.4 10-20 Random Glucose 248 70-99 mg/dl Calcium Level 8.0 8.5-10.1 mg/dl Magnesium Level 2.5 1.8-2.4 mg/dl Test 05/02/17 15:57 Range/Units Bedside Glucose 194 70-99 mg/dl
[2017-05-02] MEDS: TRAZODONE HCL 50 MG TAB PO SCH (20:03)
[2017-05-02] MEDS: DOCUSATE SODIUM/SENNA 50/8.6MG TAB PO SCH (20:04)
[2017-05-02] MEDS ORDERED: FUROSEMIDE INJ 40 MG in SYRINGE 0 ML IV SCH (21:00)
[2017-05-02] MEDS: ATORVASTATIN 40 MG TAB PO SCH (21:08)
--- NOTE | 2017-05-02 21:08 | Cardiology Progress Note ---
Cardiology Progress Note Date of Service May 02, 2017. Cardiology Progress Note I checked up on patient's Intake and output summary. It appears pt has diuresed 3.8 Liters today based on urine output summary, having received furosemide 40 mg IV plus albumin TID as reocmmended and ordered by Dr Tucker of nephrology earlier today. There is a separate dose of furosemide 40 mg IV TID entered as well to start tonight at [address] Mason, per review of the records. I called and spoke to the nurse, no change in dose was relayed to her verbally. Given renal insufficiency and favorable clinical effect of the furosemide 40 mg IV plus albumin TID, I recommend this dose is continued and I have discontinued the second furosemide order for now because as I interpret the orders ,pt would otherwise be due for furosemide 80 mg IV TID. Will reassess clinical progress, labs, and exam tomorrow and reassess furosemide dose in collaboration with nephrology, and hospitalist medicine. Plan discussed with nursing by phone. Jaime Brumfield,
[2017-05-02] MEDS ORDERED: NURSING VERBAL MED ORDER ONE (21:15)
[2017-05-02] MEDS ORDERED: ALBUMIN HUMAN 25% 12.5 GM/50 ML VIAL IV SCH (21:30)
[2017-05-02] MEDS: VANCOMYCIN INJ 1,750 MG in SODIUM CHLORIDE 0.9% 500ML 500 ML IV SCH (22:07)
[2017-05-03] VITALS (8 sets, daily range): BP systolic 134–168; BP diastolic 71–92; PULSE 62–66; TEMP 36.4–37; O2SAT 94–100
[2017-05-03] MEDS: AZTREONAM 2000 MG in DEXTROSE 5% 100 ML IV SCH ×3 (06:08→21:43)
[2017-05-03] MEDS: LEVOTHYROXINE 25 MCG TAB PO SCH (06:08)
[2017-05-03] MEDS: INSULIN ASPART 100 UNITS/ML 3 ML PEN SC SCH ×4 (07:00→20:38)
[2017-05-03 07:13] LABS: BASO % 0.3 %; BASO ABS # 0.02 K/uL (0-0.2); EOS % 4.4 %; HEMATOCRIT 28.5 % (42-52); IG% 0.4 %; LYMPH % 11.3 %; MEAN CELL VOLUME 83.3 fL (80-100); MEAN CORPUSCULAR HEMOGLOBIN 25.4 pg (25-34); MEAN CORPUSCULAR HGB CONC 30.5 g/dl (32-36); MEAN PLATELET VOLUME 9.6 fL (7.4-10.4); MONO % 7.3 %; NEUT % 76.3 %; PLATELET COUNT 239 K/uL (130-400); RED BLOOD COUNT 3.42 M/uL (4.7-6.1)
[2017-05-03 07:43] LABS: CREATININE 2.5 mg/dl (0.60-1.40)
[2017-05-03 07:45] LABS: ANISOCYTOSIS PRESENT; COMPLETE YES
[2017-05-03] MEDS: INSULIN DETEMIR FLEXPEN/FLEX TOUCH 100 UNITS/ML 3ML SC SCH ×2 (07:55→20:35)
[2017-05-03] MEDS: CHECK FENTANYL PATCH PLACEMENT SCH ×4 (08:00→23:49)
--- NOTE | 2017-05-03 08:43 | Nephrology Progress Note ---
Nephrology Progress Note Date of Service: May 03, 2017. Subjective 56 yo male with bi-v pacemaker/defibrillator with significant chronic lower extremity edema with wounds on legs being treated for a cellulitis. responding favorably to the albumin/lasix combination. pt does eat a significant amount of food and has been asking for second plates for his meals. in retirement, not adhering to salt restriction and keeps his legs down. nurse in hospital stating he has a short temper and gets frustrated easily. pt says he is going to try to avoid the salt this week but is so hungry, its difficult. Objective Date Time Temp Pulse Resp B/P (MAP) Pulse Ox O2 Delivery O2 Flow Rate FiO2 05/03/17 07:38 36.4 63 18 151/83 (105) 98 05/03/17 04:45 37.0 63 16 137/79 (98) 97 05/03/17 04:00 Room Air 05/03/17 00:44 36.8 63 18 167/91 (116) 98 Room Air 168/89 (115) 05/02/17 23:59 Room Air 05/02/17 20:21 36.7 82 20 130/82 (98) 99 Room Air 05/02/17 20:00 Room Air 05/02/17 16:17 Room Air 05/02/17 16:01 36.4 63 12 139/76 (97) 96 Room Air 05/02/17 16:00 Room Air 05/02/17 13:24 36.5 69 15 147/85 (105) 94 Room Air 05/02/17 12:00 Room Air 05/02/17 10:42 Room Air Physical Exam: General-aaox3, obese Eyes-no scleral icterus ENT-mmm Neck-supple Lungs-cta Zkgzd-ipc-audud Abdomen-bs+/distended Extremities-+4 non-pitting edema with open wounds Neuro-nonfocal Current Inpatient Medications Medications (Trade) Dose Ordered Sig/Miguel Route Start Time Stop Time Status Last Admin Dose Admin Acetaminophen (Tylenol Tab) 650 mg Q4H PRN PO 05/01/17 16:30 05/31/17 16:29 Ondansetron HCl (Zofran Inj) 4 mg Q6H PRN IV 05/01/17 16:30 05/31/17 16:29 Insulin Aspart (novoLOG ASPART) SLIDING SCALE If C... ACHS SC 05/01/17 21:00 05/31/17 20:59 05/03/17 07:00 16 UNITS Glucose (Glucose 40% Gel) 15-30 GRAMS 15 GRAMS... UD PRN PO 05/01/17 16:45 05/31/17 16:44 Glucose (Glucose Chew Tab) 4-8 Tablets 4 Tabl... UD PRN PO 05/01/17 16:45 05/31/17 16:44 Dextrose (Dextrose 50% 50ML Syringe) 25-50ML OF 50% DW IV FOR... UD PRN IV 05/01/17 16:45 05/31/17 16:44 Glucagon (Glucagon Inj) 1 mg UD PRN SQ 05/01/17 16:45 05/31/17 16:44 Acetaminophen/ Codeine Phosphate (Tylenol w/ Codeine #3 Tab) 1 tab Q6 PRN PO 05/01/17 17:30 05/31/17 17:29 05/02/17 20:02 1 TAB Albuterol (Ventolin Hfa Inhaler) 2 puffs Q6H PRN INH 05/01/17 17:30 05/31/17 17:29 Atorvastatin Calcium (Lipitor Tab) 80 mg HS PO 05/01/17 21:00 05/31/17 20:59 05/02/17 21:08 80 MG Bisacodyl (Dulcolax Supp) 10 mg Q24H PRN WA 05/01/17 17:30 05/31/17 17:29 Carvedilol (Coreg Tab) 25 mg BID PO 05/01/17 21:00 05/31/17 20:59 05/02/17 20:05 25 MG Fentanyl (Duragesic Patch) 12 mcg Q3D@0900 TD 05/02/17 09:00 05/16/17 08:59 05/02/17 09:10 12 MCG Hydroxyzine HCl (Vistaril Tab) 25 mg QID PRN PO 05/01/17 17:30 05/31/17 17:29 Levothyroxine Sodium (Synthroid Tab) 25 mcg DAILYBB PO 05/02/17 06:00 06/01/17 06:59 05/03/17 06:08 25 MCG Loratadine (Claritin Tab) 10 mg DAILY PO 05/02/17 09:00 06/01/17 08:59 05/02/17 08:55 10 MG Magnesium Hydroxide (Milk Of Magnesia Susp) 30 ml DAILY PRN PO 05/01/17 17:30 05/31/17 17:29 05/02/17 15:39 30 ML Multivitamins/ Minerals (Multivitamin W/ Minerals Tab) 1 tab QAM PO 05/02/17 09:00 06/01/17 08:59 05/02/17 08:55 1 TAB Pregabalin (Lyrica Cap) 75 mg BID PO 05/01/17 21:00 05/31/17 20:59 05/02/17 20:03 75 MG Senna/Docusate Sodium (Senokot S Tab) 2 tab HS PO 05/01/17 21:00 05/31/17 20:59 05/02/17 20:04 2 TAB Trazodone HCl (Desyrel Tab) 50 mg HS PO 05/01/17 21:00 05/31/17 20:59 05/02/17 20:03 50 MG Ursodiol (Actigall Cap) 300 mg BID PO 05/01/17 21:00 05/31/17 20:59 05/02/17 20:04 300 MG Venlafaxine HCl (effeXOR EXTENDED REL CAP) 75 mg DAILY PO 05/02/17 09:00 06/01/17 08:59 05/02/17 08:55 75 MG Pantoprazole Sodium (Protonix Tab) 40 mg QAM PO 05/02/17 09:00 06/01/17 08:59 05/02/17 08:55 40 MG Insulin Detemir (Levemir Flexpen/ FlexTouch) 35 units BID SC 05/01/17 21:00 05/31/17 20:59 05/03/17 07:55 35 UNITS Polyethylene (Miralax Powder Packet) 17 gm QAM PO 05/02/17 09:00 06/01/17 08:59 05/02/17 08:55 17 GM Apixaban (Eliquis Tab) 5 mg BID PO 05/01/17 21:00 05/31/17 20:59 05/02/17 20:03 5 MG Miscellaneous (Fentanyl Patch Remove & Waste) 1 ea Q3D@0859 N/A 05/02/17 08:59 06/01/17 08:58 05/02/17 09:08 1 EA Miscellaneous Information (Check Fentanyl Patch Placement) 1 ea QS N/A 05/02/17 00:00 06/01/17 00:00 05/03/17 00:00 1 EA Nitroglycerin (Nitrostat Tab) 0.4 mg UD PRN SL 05/01/17 19:00 05/31/17 18:59 Ergocalciferol (Vitamin D Cap) 50,000 interunit Q7D@0900 PO 05/02/17 09:00 06/01/17 08:59 05/02/17 08:55 50,000 INTERUNIT Vancomycin HCl (Consult) 1 ea DAILY PRN N/A 05/01/17 22:09 05/31/17 22:08 Aztreonam (Consult) 1 ea DAILY PRN N/A 05/01/17 22:09 05/31/17 22:08 Aztreonam 2000 mg/ Dextrose 110 ml @ 110 mls/hr Q8 IV 05/02/17 06:00 05/12/17 05:59 05/03/17 06:08 110 MLS/HR Vancomycin HCl 1750 mg/Sodium Chloride 535 ml @ 200 mls/hr Q24H IV 05/02/17 23:00 05/12/17 22:59 05/02/17 22:07 200 MLS/HR Furosemide 40 mg/ Albumin Human 54 ml @ 54 mls/hr TID IV 05/02/17 09:00 05/05/17 08:59 05/02/17 15:31 54 MLS/HR Last 24 Hours Test 05/02/17 11:01 05/02/17 15:57 05/02/17 19:41 05/03/17 06:29 Bedside Glucose 240 mg/dl 194 mg/dl 136 mg/dl Creatinine 2.50 mg/dl Est Creatinine Clear Calc Drug Dose 65.3 ml/min Estimated GFR () 31.8 Estimated GFR (Non- 27.5 Test 05/03/17 06:54 05/03/17 07:02 White Blood Count 8.00 K/uL Red Blood Count 3.42 M/uL Hemoglobin 8.7 g/dL Hematocrit 28.5 % Mean Corpuscular Volume 83.3 fL Mean Corpuscular Hemoglobin 25.4 pg Mean Corpuscular Hemoglobin Concent 30.5 g/dl Platelet Count 239 K/uL Mean Platelet Volume 9.6 fL Neutrophils (%) (Auto) 76.3 % Lymphocytes (%) (Auto) 11.3 % Monocytes (%) (Auto) 7.3 % Eosinophils (%) (Auto) 4.4 % Basophils (%) (Auto) 0.3 % Neutrophils # (Auto) 6.12 K/uL Lymphocytes # (Auto) 0.90 K/uL Monocytes # (Auto) 0.58 K/uL Eosinophils # (Auto) 0.35 K/uL Basophils # (Auto) 0.02 K/uL RDW Standard Deviation 52.3 fL RDW Coefficient of Variation 17.4 % Immature Granulocyte % (Auto) 0.4 % Immature Granulocyte # (Auto) 0.03 K/uL Anisocytosis PRESENT Bedside Glucose 189 mg/dl Assessment & Plan BART-was 3.7 in the office, 3.1 on presentation and now 2.5. on albumin/lasix/ sodium restriction/leg elevation and responding favorably. mobilizing the third spaced fluid and urinating aggressively. discussed with patient and placed him on a 2 gram sodium diet which is important to prevent diuretic resistance. pt understanding and agreeable for me. K-adding on a bmp to make sure potassium levels are good with the aggressive diuresis. may need potassium repleted.
[2017-05-03 09:17] LABS: BUN/CREATININE RATIO 21.6 (10-20); CALCIUM 8.8 mg/dl (8.5-10.1); CREATININE 2.5 mg/dl (0.60-1.40); POTASSIUM 4.7 mmol/L (3.5-5.1)
[2017-05-03] MEDS: ALBUMIN 25% 50 ML with FUROSEMIDE INJ 40 MG IV SCH ×6 (09:19→20:25)
[2017-05-03] MEDS: URSODIOL 300 MG CAP PO SCH ×2 (09:20→20:15)
[2017-05-03] MEDS: LORATADINE 10 MG TAB PO SCH (09:21)
[2017-05-03] MEDS: CARVEDILOL 25 MG TAB PO SCH ×2 (09:22→20:15)
[2017-05-03] MEDS: VENLAFAXINE HCL XR 75 MG CAPXR PO SCH (09:23)
[2017-05-03] MEDS: APIXABAN 2.5 MG TAB PO SCH ×2 (09:24→20:16)
[2017-05-03] MEDS: PANTOprazole SOD 40 MG TAB PO SCH (09:25)
[2017-05-03] MEDS: CEROVITE ADV FORMULA TAB PO SCH (09:25)
[2017-05-03] MEDS: POLYETHYLENE (MIRALAX) 17 GM PACK PO SCH (09:25)
--- NOTE | 2017-05-03 09:33 | Cardiology Follow-Up ---
Subjective General Date of Service: May 03, 2017. Chief Complaint: follow up edema Pt evaluation today including: conversation w/ patient, physical exam, conversation w/ implementation consultant History of Present Illness The patient is a 56 year old male seen in follow up. Patient reports feeling well. He is diuresing well, using urinal bottle, with 4.3 L of urine outpt 05/02/17 and 2L so far today. Denies chest pain and shortness of breath. Renal function trending toward improvement. Creatinine 3.1-->2.8-->2.5 mg/dl. Allergies Coded Allergies: Amoxicillin (Verified Allergy, Unknown, unknown, 04/04/17) Cephalosporins (Verified Allergy, Unknown, unknown, 04/04/17) Ciprofloxacin (Verified Allergy, Unknown, unknown, 04/04/17) Clindamycin (Verified Allergy, Unknown, unknown, 04/04/17) Iodinated Diagnostic Agents (Verified Allergy, Unknown, unknown, 04/04/17) Penicillins (Unverified Allergy, Unknown, unknown, 04/04/17) Perflutren (Verified Allergy, Unknown, PERFLUTREN LIPID MICROSPHERES, 04/04) Social History Smoking Status: Former Smoker Hx Tobacco Use In Past Year?: No Hx Alcohol Use - Type And Amou: No Hx Substance Use - Type And Am: No Problem List Medical Problems: (1) Altered mental status Status: Acute (2) Anemia Status: Acute (3) Anemia Status: Acute (4) Cellulitis Status: Acute (5) Cellulitis Status: Acute (6) CHF (congestive heart failure) Status: Acute (7) Confusion Status: Acute (8) Deep vein thrombosis Status: Acute (9) Hypoglycemia Status: Acute (10) Hypoxia Status: Acute (11) Vitreous hemorrhage Status: Acute Physical Exam Vital Signs Last Vital Signs Documentation Date Time Temp Pulse Resp B/P (MAP) Pulse Ox O2 Delivery O2 Flow Rate FiO2 05/03/17 07:38 36.4 63 18 151/83 (105) 98 05/03/17 04:00 Room Air Physical Exam Constitutional: Level of Distress: NAD Head: normocephalic ENMT: normal ENT inspection Neck: supple Lungs: Auscultation: no wheezing, no rales/crackles, no rhonchi Cardiovascular: Heart Auscultation: pertinent finding (distant heart sounds, no murmur) Extremities: pertinent finding (2-3+ bilateral LE edema, with multiple ulcerations, R leg worse than left) Assessment and Plan Assessment and Plan Impression: 56-year-old male 1. Volume overload, multifactorial due to dietary nonadherence, underlying diastolic HF, renal insufficiency, venous insufficiency. 2. Normal left ventricular ejection fraction on echocardiogram performed 2016 at [facility] 3. History of chronic persistent atrial fibrillation, biventricular AICD, followed in [place] 4. Cellulitis 5. Acute kidney insufficiency on chronic kidney disease 6. Suspected underlying sleep apnea Plan: Case discussed with Dr Tucker of nephrology. Continue current dose of furosemide 40 mg IV +albumin Q 8 hours. Continue antibiotics. Low sodium diet. Continue Eliquis for stroke prophylaxis and DVT prophylaxis. Laboratory Results Last 24 Hours Test 05/02/17 11:01 05/02/17 15:57 05/02/17 19:41 05/03/17 06:29 Bedside Glucose 240 mg/dl 194 mg/dl 136 mg/dl Sodium Level 137 mmol/L Potassium Level 4.7 mmol/L Chloride Level 103 mmol/L Carbon Dioxide Level 28 mmol/L Anion Gap 6.0 mmol/L Blood Urea Nitrogen 54 mg/dl Creatinine 2.50 mg/dl Est Creatinine Clear Calc Drug Dose 65.3 ml/min Estimated GFR () 31.8 Estimated GFR (Non- 27.5 BUN/Creatinine Ratio 21.6 Random Glucose 202 mg/dl Calcium Level 8.8 mg/dl Test 05/03/17 06:54 05/03/17 07:02 White Blood Count 8.00 K/uL Red Blood Count 3.42 M/uL Hemoglobin 8.7 g/dL Hematocrit 28.5 % Mean Corpuscular Volume 83.3 fL Mean Corpuscular Hemoglobin 25.4 pg Mean Corpuscular Hemoglobin Concent 30.5 g/dl Platelet Count 239 K/uL Mean Platelet Volume 9.6 fL Neutrophils (%) (Auto) 76.3 % Lymphocytes (%) (Auto) 11.3 % Monocytes (%) (Auto) 7.3 % Eosinophils (%) (Auto) 4.4 % Basophils (%) (Auto) 0.3 % Neutrophils # (Auto) 6.12 K/uL Lymphocytes # (Auto) 0.90 K/uL Monocytes # (Auto) 0.58 K/uL Eosinophils # (Auto) 0.35 K/uL Basophils # (Auto) 0.02 K/uL RDW Standard Deviation 52.3 fL RDW Coefficient of Variation 17.4 % Immature Granulocyte % (Auto) 0.4 % Immature Granulocyte # (Auto) 0.03 K/uL Anisocytosis PRESENT Bedside Glucose 189 mg/dl
[2017-05-03] MEDS: PREGABALIN 75 MG CAP PO SCH ×2 (09:36→20:21)
--- NOTE | 2017-05-03 16:20 | Infectious Disease Progress Nt ---
Progress Note Date of Service May 03, 2017. Subjective Pt evaluation today including: conversation w/ patient, physical exam, chart review, lab review, review of studies, conversation w/ [employer] consultant, review of inpatient medication list Patient offering no new specific complaints today. Remains afebrile. Leg swelling slightly better. Tolerating antibiotic without apparent difficulty. cultures from wound growing gram-negative bacilli in streptococcal species All Other Systems: Reviewed and Negative Medications Current Inpatient Medications Medications (Trade) Dose Ordered Sig/Miguel Route Start Time Stop Time Status Last Admin Dose Admin Acetaminophen (Tylenol Tab) 650 mg Q4H PRN PO 05/01/17 16:30 05/31/17 16:29 Ondansetron HCl (Zofran Inj) 4 mg Q6H PRN IV 05/01/17 16:30 05/31/17 16:29 Insulin Aspart (novoLOG ASPART) SLIDING SCALE If C... ACHS SC 05/01/17 21:00 05/31/17 20:59 05/03/17 12:52 21 UNITS Glucose (Glucose 40% Gel) 15-30 GRAMS 15 GRAMS... UD PRN PO 05/01/17 16:45 05/31/17 16:44 Glucose (Glucose Chew Tab) 4-8 Tablets 4 Tabl... UD PRN PO 05/01/17 16:45 05/31/17 16:44 Dextrose (Dextrose 50% 50ML Syringe) 25-50ML OF 50% DW IV FOR... UD PRN IV 05/01/17 16:45 05/31/17 16:44 Glucagon (Glucagon Inj) 1 mg UD PRN SQ 05/01/17 16:45 05/31/17 16:44 Acetaminophen/ Codeine Phosphate (Tylenol w/ Codeine #3 Tab) 1 tab Q6 PRN PO 05/01/17 17:30 05/31/17 17:29 05/02/17 20:02 1 TAB Albuterol (Ventolin Hfa Inhaler) 2 puffs Q6H PRN INH 05/01/17 17:30 05/31/17 17:29 Atorvastatin Calcium (Lipitor Tab) 80 mg HS PO 05/01/17 21:00 05/31/17 20:59 05/02/17 21:08 80 MG Bisacodyl (Dulcolax Supp) 10 mg Q24H PRN DC 05/01/17 17:30 05/31/17 17:29 Carvedilol (Coreg Tab) 25 mg BID PO 05/01/17 21:00 05/31/17 20:59 05/03/17 09:22 25 MG Fentanyl (Duragesic Patch) 12 mcg Q3D@0900 TD 05/02/17 09:00 05/16/17 08:59 05/02/17 09:10 12 MCG Hydroxyzine HCl (Vistaril Tab) 25 mg QID PRN PO 05/01/17 17:30 05/31/17 17:29 Levothyroxine Sodium (Synthroid Tab) 25 mcg DAILYBB PO 05/02/17 06:00 06/01/17 06:59 05/03/17 06:08 25 MCG Loratadine (Claritin Tab) 10 mg DAILY PO 05/02/17 09:00 06/01/17 08:59 05/03/17 09:21 10 MG Magnesium Hydroxide (Milk Of Magnesia Susp) 30 ml DAILY PRN PO 05/01/17 17:30 05/31/17 17:29 05/02/17 15:39 30 ML Multivitamins/ Minerals (Multivitamin W/ Minerals Tab) 1 tab QAM PO 05/02/17 09:00 06/01/17 08:59 05/03/17 09:25 1 TAB Pregabalin (Lyrica Cap) 75 mg BID PO 05/01/17 21:00 05/31/17 20:59 05/03/17 09:36 75 MG Senna/Docusate Sodium (Senokot S Tab) 2 tab HS PO 05/01/17 21:00 05/31/17 20:59 05/02/17 20:04 2 TAB Trazodone HCl (Desyrel Tab) 50 mg HS PO 05/01/17 21:00 05/31/17 20:59 05/02/17 20:03 50 MG Ursodiol (Actigall Cap) 300 mg BID PO 05/01/17 21:00 05/31/17 20:59 05/03/17 09:20 300 MG Venlafaxine HCl (effeXOR EXTENDED REL CAP) 75 mg DAILY PO 05/02/17 09:00 06/01/17 08:59 05/03/17 09:23 75 MG Pantoprazole Sodium (Protonix Tab) 40 mg QAM PO 05/02/17 09:00 06/01/17 08:59 05/03/17 09:25 40 MG Insulin Detemir (Levemir Flexpen/ FlexTouch) 35 units BID SC 05/01/17 21:00 05/31/17 20:59 05/03/17 07:55 35 UNITS Polyethylene (Miralax Powder Packet) 17 gm QAM PO 05/02/17 09:00 06/01/17 08:59 05/03/17 09:25 17 GM Apixaban (Eliquis Tab) 5 mg BID PO 05/01/17 21:00 05/31/17 20:59 05/03/17 09:24 5 MG Miscellaneous (Fentanyl Patch Remove & Waste) 1 ea Q3D@0859 N/A 05/02/17 08:59 06/01/17 08:58 05/02/17 09:08 1 EA Miscellaneous Information (Check Fentanyl Patch Placement) 1 ea QS N/A 05/02/17 00:00 06/01/17 00:00 05/03/17 08:00 1 EA Nitroglycerin (Nitrostat Tab) 0.4 mg UD PRN SL 05/01/17 19:00 05/31/17 18:59 Ergocalciferol (Vitamin D Cap) 50,000 interunit Q7D@0900 PO 05/02/17 09:00 06/01/17 08:59 05/02/17 08:55 50,000 INTERUNIT Vancomycin HCl (Consult) 1 ea DAILY PRN N/A 05/01/17 22:09 05/31/17 22:08 Aztreonam (Consult) 1 ea DAILY PRN N/A 05/01/17 22:09 05/31/17 22:08 Aztreonam 2000 mg/ Dextrose 110 ml @ 110 mls/hr Q8 IV 05/02/17 06:00 05/12/17 05:59 05/03/17 12:52 110 MLS/HR Vancomycin HCl 1750 mg/Sodium Chloride 535 ml @ 200 mls/hr Q24H IV 05/02/17 23:00 05/12/17 22:59 05/02/17 22:07 200 MLS/HR Furosemide 40 mg/ Albumin Human 54 ml @ 54 mls/hr TID IV 05/02/17 09:00 05/05/17 08:59 05/03/17 14:27 54 MLS/HR Objective Vital Signs Date Time Temp Pulse Resp B/P (MAP) Pulse Ox O2 Delivery O2 Flow Rate FiO2 05/03/17 12:00 Room Air 05/03/17 10:22 36.6 63 18 148/71 (96) 100 Room Air 05/03/17 10:05 Room Air 05/03/17 08:00 Room Air 05/03/17 07:38 36.4 63 18 151/83 (105) 98 05/03/17 04:45 37.0 63 16 137/79 (98) 97 05/03/17 04:00 Room Air 05/03/17 00:44 36.8 63 18 167/91 (116) 98 Room Air 168/89 (115) 05/02/17 23:59 Room Air 05/02/17 20:21 36.7 82 20 130/82 (98) 99 Room Air 05/02/17 20:00 Room Air Physical Exam General Appearance: WD/WN, no apparent distress, + pertinent finding Eyes: normal inspection, sclerae normal ENT: normal ENT inspection, pharynx normal Neck: supple, no adenopathy, trachea midline Respiratory/Chest: chest non-tender, lungs clear, normal breath sounds, no respiratory distress Cardiovascular: regular rate, rhythm, no gallop, no murmur Abdomen: normal bowel sounds, non tender, soft, no organomegaly Extremities: + inflammation, + swelling Neurologic/Psychiatric: alert, oriented x 3 Skin: normal color, + pertinent finding (Bilateral lower extremity erythema, chronic venous stasis changes) Lymphatic: no adenopathy Laboratory Results RUN DATE: 05/03/17 [facility] LAB PAGE 1 RUN TIME: 1152 Specimen Inquiry PATIENT: MARICEL BILLY LOC: [facility] U # : [id number] AGE/SX: 56/M ROOM: 12 REG : 05/01/[address]: Tonny Mason M.D. : 1960 BED: 1 DIS : STATUS: ADM IN TLOC: SPEC #: [id number] MILEY: 05/01/17-UNK STATUS: RES REQ #: [id number] RECD: 05/01/[address]: Dali Rios PA-C SOURCE: DRAIN-SURF ENTR: 05/01/17 [facility] [place]: Carmelita Rivas MD SPDESC: LEG Darshan Conroy MD, Thomas O. , Veena Moreno ., [place] , [facility] Satish K., MD ORDERED: SURF WND CU/[facility] COMMENTS: Has Specimen Been Obtained/Collected? Y Procedure Result Verified Site GRAM STAIN Final 05/02/17-5339 RESULT RARE WBCs SEEN MANY GRAM POSITIVE COCCI FEW GRAM NEGATIVE BACILLI SURFACE WOUND CULTURE Preliminary 05/03/17-4462 Organism 1 GRAM NEGATIVE BACILLI QUANITY MODERATE SENS SENSITIVITY TO FOLLOW Organism 2 GRAM NEGATIVE BACILLI#2 QUANITY MODERATE SENS SENSITIVITY TO FOLLOW Organism 3 STREPTOCOCCUS SPECIES QUANITY MODERATE SENS SENSITIVITY TO FOLLOW END OF REPORT Last 24 Hours Test 05/02/17 19:41 05/03/17 06:29 05/03/17 06:54 05/03/17 07:02 Bedside Glucose 136 mg/dl 189 mg/dl Sodium Level 137 mmol/L Potassium Level 4.7 mmol/L Chloride Level 103 mmol/L Carbon Dioxide Level 28 mmol/L Anion Gap 6.0 mmol/L Blood Urea Nitrogen 54 mg/dl Creatinine 2.50 mg/dl Est Creatinine Clear Calc Drug Dose 65.3 ml/min Estimated GFR () 31.8 Estimated GFR (Non- 27.5 BUN/Creatinine Ratio 21.6 Random Glucose 202 mg/dl Calcium Level 8.8 mg/dl White Blood Count 8.00 K/uL Red Blood Count 3.42 M/uL Hemoglobin 8.7 g/dL Hematocrit 28.5 % Mean Corpuscular Volume 83.3 fL Mean Corpuscular Hemoglobin 25.4 pg Mean Corpuscular Hemoglobin Concent 30.5 g/dl Platelet Count 239 K/uL Mean Platelet Volume 9.6 fL Neutrophils (%) (Auto) 76.3 % Lymphocytes (%) (Auto) 11.3 % Monocytes (%) (Auto) 7.3 % Eosinophils (%) (Auto) 4.4 % Basophils (%) (Auto) 0.3 % Neutrophils # (Auto) 6.12 K/uL Lymphocytes # (Auto) 0.90 K/uL Monocytes # (Auto) 0.58 K/uL Eosinophils # (Auto) 0.35 K/uL Basophils # (Auto) 0.02 K/uL RDW Standard Deviation 52.3 fL RDW Coefficient of Variation 17.4 % Immature Granulocyte % (Auto) 0.4 % Immature Granulocyte # (Auto) 0.03 K/uL Anisocytosis PRESENT Test 05/03/17 11:07 Bedside Glucose 219 mg/dl Assessment and Plan Bilateral lower extremity cellulitis in the setting of chronic lymphedema and venous stasis disease. Current treatment with vancomycin and aztreonam appropriate given multiple antibiotic allergies. We will await final culture results and adjust antibiotics accordingly. Will follow.
--- NOTE | 2017-05-03 17:44 | Progress Note ---
Internal Med Progress Note Date of Service: May 03, 2017. Provider Documentation: SUBJECTIVE: patient examined sitting comfortably on room air. denies chest pain or shortness of breath. patient was informed that cultures have grew bacteria OBJECTIVE: General Appearance: obese, no acute distress Head: normocephalic, atraumatic Eyes: normal inspection, EOMI ENT: hearing grossly normal, pharynx normal Neck: supple, trachea midline Respiratory/Chest: lungs clear, no respiratory distress, CTABL, pacemaker present Cardiovascular: regular rate, rhythm, no murmur Abdomen/GI: normal bowel sounds, soft, +bowel sounds Extremities: no calf tenderness, very edematous lower extremities bilaterally with multiple superficial wounds on RLE- medial calf, dorsum of foot, 1st toenail bed (nail is absent), some drainage Neurologic/Psych: awake and alert and oriented ASSESSMENT & PLAN: This is a 56 y/o male with PMH of HTN, 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 (EF 55-60% on 04/05/2017 echo), Afib on Eliquis, s/p AICD/pacemaker, CAD per records, history of CVA, hx RLE DVT, CKD stage IV, DM type 2, lymphedema, with hospital admission for chronic lower extremity swelling and cellulitis BILATERAL LE CELLULITIS Has persistent bilateral LE cellulitis, failed outpatient treatment Treated with vancomycin and aztreonam inpatient April 04-2016, discharged on 12 day course of doxycycline, Bactrim added 04/22/17 -04/26 continue with Vancomycin and aztreonam, ID consult following Wound culture of lower extremity with gram negative bacilli GRAM STAIN Final 05/02/17-0755 RESULT RARE WBCs SEEN MANY GRAM POSITIVE COCCI FEW GRAM NEGATIVE BACILLI SURFACE WOUND CULTURE Preliminary 05/03/17-1152 Organism 1 GRAM NEGATIVE BACILLI QUANITY MODERATE SENS SENSITIVITY TO FOLLOW Organism 2 GRAM NEGATIVE BACILLI#2 QUANITY MODERATE SENS SENSITIVITY TO FOLLOW Organism 3 STREPTOCOCCUS SPECIES QUANITY MODERATE SENS SENSITIVITY TO FOLLOW ACUTE ON CHRONIC CHF History of CAD, h/o systolic and diastolic CHF, idiopathic cardiomyopathy per records, echo 04/05/17- EF 55-60%, mild concentric LVH, left atrium severely dilated Presents with weight gain, increasing abdominal girth and LE edema, dyspnea and dizziness on exertion, dry cough, exertional CP Was on torsemide 40 mg daily as outpatient which was discontinued as outpatient for BART Diuresis with Lasix 40 mg IV TID with albumin BART ON CKD STAGE IV followed by nephrology ATRIAL FIBRILLATION Rate is controlled Continue Coreg Anticoagulated on Eliquis Anemia- will trend CBC, nephrology consult suggest that patient may benefit from IV iron but will hold off on this treatment until cellulitis improves HYPOTHYROIDISM Continue levothyroxine DM TYPE 2 Continue Detemir Novolog sliding scale HISTORY OF DVT/ PE S/p IVC filter On Eliquis VITAMIN D DEFICIENCY continue with vitamin D supplements CODE STATUS Full code Vital Signs: Date Time Temp Pulse Resp B/P (MAP) Pulse Ox O2 Delivery O2 Flow Rate FiO2 05/03/17 16:00 36.6 63 16 155/74 (101) 95 Room Air 05/03/17 16:00 Room Air 05/03/17 12:00 Room Air 05/03/17 10:22 36.6 63 18 148/71 (96) 100 Room Air 05/03/17 10:05 Room Air 05/03/17 08:00 Room Air 05/03/17 07:38 36.4 63 18 151/83 (105) 98 05/03/17 04:45 37.0 63 16 137/79 (98) 97 05/03/17 04:00 Room Air 05/03/17 00:44 36.8 63 18 167/91 (116) 98 Room Air 168/89 (115) 05/02/17 23:59 Room Air 05/02/17 20:21 36.7 82 20 130/82 (98) 99 Room Air 05/02/17 20:00 Room Air Lab Results: Results Past 24 Hours Test 05/02/17 19:41 05/03/17 06:29 05/03/17 06:54 05/03/17 07:02 Range/Units Bedside Glucose 136 189 70-99 mg/dl Sodium Level 137 136-145 mmol/L Potassium Level 4.7 3.5-5.1 mmol/L Chloride Level 103 98-107 mmol/L Carbon Dioxide Level 28 21-32 mmol/L Anion Gap 6.0 3-11 mmol/L Blood Urea Nitrogen 54 7-18 mg/dl Creatinine 2.50 0.60-1.40 mg/dl Est Creatinine Clear Calc Drug Dose 65.3 ml/min Estimated GFR () 31.8 Estimated GFR (Non- 27.5 BUN/Creatinine Ratio 21.6 10-20 Random Glucose 202 70-99 mg/dl Calcium Level 8.8 8.5-10.1 mg/dl White Blood Count 8.00 4.8-10.8 K/uL Red Blood Count 3.42 4.7-6.1 M/uL Hemoglobin 8.7 14.0-18.0 g/dL Hematocrit 28.5 42-52 % Mean Corpuscular Volume 83.3 80-100 fL Mean Corpuscular Hemoglobin 25.4 25-34 pg Mean Corpuscular Hemoglobin Concent 30.5 32-36 g/dl Platelet Count 239 130-400 K/uL Mean Platelet Volume 9.6 7.4-10.4 fL Neutrophils (%) (Auto) 76.3 % Lymphocytes (%) (Auto) 11.3 % Monocytes (%) (Auto) 7.3 % Eosinophils (%) (Auto) 4.4 % Basophils (%) (Auto) 0.3 % Neutrophils # (Auto) 6.12 1.4-6.5 K/uL Lymphocytes # (Auto) 0.90 1.2-3.4 K/uL Monocytes # (Auto) 0.58 0.11-0.59 K/uL Eosinophils # (Auto) 0.35 0-0.5 K/uL Basophils # (Auto) 0.02 0-0.2 K/uL RDW Standard Deviation 52.3 36.4-46.3 fL RDW Coefficient of Variation 17.4 11.5-14.5 % Immature Granulocyte % (Auto) 0.4 % Immature Granulocyte # (Auto) 0.03 0.00-0.02 K/uL Anisocytosis PRESENT Test 05/03/17 11:07 Range/Units Bedside Glucose 219 70-99 mg/dl
[2017-05-03] MEDS: ACETAMINOPHEN/CODEINE 300/30MG TAB PO PRN (20:14)
[2017-05-03] MEDS: TRAZODONE HCL 50 MG TAB PO SCH (20:16)
[2017-05-03] MEDS: ATORVASTATIN 40 MG TAB PO SCH (20:17)
[2017-05-03] MEDS: DOCUSATE SODIUM/SENNA 50/8.6MG TAB PO SCH (20:17)
[2017-05-03] MEDS: VANCOMYCIN INJ 1,750 MG in SODIUM CHLORIDE 0.9% 500ML 500 ML IV SCH (23:48)
[2017-05-04] VITALS (8 sets, daily range): BP systolic 131–146; BP diastolic 75–91; PULSE 63–66; TEMP 36.4–36.7; O2SAT 93–97
[2017-05-04] MEDS: ACETAMINOPHEN/CODEINE 300/30MG TAB PO PRN ×2 (02:31→19:14)
[2017-05-04] MEDS: AZTREONAM 2000 MG in DEXTROSE 5% 100 ML IV SCH ×3 (05:55→20:44)
[2017-05-04] MEDS: LEVOTHYROXINE 25 MCG TAB PO SCH (05:56)
--- NOTE | 2017-05-04 07:10 | Nephrology Progress Note ---
Nephrology Progress Note Date of Service: May 04, 2017. Subjective 56 yo male with bi-v pacemaker/defibrillator with significant chronic lower extremity edema with wounds on legs being treated for a cellulitis. pt diuresing nicely. not adhering to salt restriction. last night, family/ friends visited and brought him a big mac and fries. pt was aware of the sodium load and ate it anyway. complaining of pain in his lower extremities currently. Objective Date Time Temp Pulse Resp B/P (MAP) Pulse Ox O2 Delivery O2 Flow Rate FiO2 05/04/17 04:29 36.5 65 16 140/82 (101) 94 Room Air 05/04/17 04:00 Room Air 05/04/17 00:00 Room Air 05/03/17 22:50 36.6 66 16 134/89 (104) 94 Room Air 05/03/17 20:04 36.7 62 16 163/92 (115) 94 Room Air 05/03/17 20:00 95 Room Air 05/03/17 16:00 36.6 63 16 155/74 (101) 95 Room Air 05/03/17 16:00 Room Air 05/03/17 12:00 Room Air 05/03/17 10:22 36.6 63 18 148/71 (96) 100 Room Air 05/03/17 10:05 Room Air 05/03/17 08:00 Room Air 05/03/17 07:38 36.4 63 18 151/83 (105) 98 Physical Exam: General-aaox3, obese Eyes-no scleral icterus ENT-mmm Neck-supple Lungs-clear Fneuy-ysy-znolc Abdomen-bs+/distended Extremities-+2 non-pitting edema with open wounds Neuro-nonfocal Current Inpatient Medications Medications (Trade) Dose Ordered Sig/Miguel Route Start Time Stop Time Status Last Admin Dose Admin Acetaminophen (Tylenol Tab) 650 mg Q4H PRN PO 05/01/17 16:30 05/31/17 16:29 Ondansetron HCl (Zofran Inj) 4 mg Q6H PRN IV 05/01/17 16:30 05/31/17 16:29 Insulin Aspart (novoLOG ASPART) SLIDING SCALE If C... ACHS SC 05/01/17 21:00 05/31/17 20:59 05/03/17 20:38 22 UNITS Glucose (Glucose 40% Gel) 15-30 GRAMS 15 GRAMS... UD PRN PO 05/01/17 16:45 05/31/17 16:44 Glucose (Glucose Chew Tab) 4-8 Tablets 4 Tabl... UD PRN PO 05/01/17 16:45 05/31/17 16:44 Dextrose (Dextrose 50% 50ML Syringe) 25-50ML OF 50% DW IV FOR... UD PRN IV 05/01/17 16:45 05/31/17 16:44 Glucagon (Glucagon Inj) 1 mg UD PRN SQ 05/01/17 16:45 05/31/17 16:44 Acetaminophen/ Codeine Phosphate (Tylenol w/ Codeine #3 Tab) 1 tab Q6 PRN PO 05/01/17 17:30 05/31/17 17:29 05/04/17 02:31 1 TAB Albuterol (Ventolin Hfa Inhaler) 2 puffs Q6H PRN INH 05/01/17 17:30 05/31/17 17:29 Atorvastatin Calcium (Lipitor Tab) 80 mg HS PO 05/01/17 21:00 05/31/17 20:59 05/03/17 20:17 80 MG Bisacodyl (Dulcolax Supp) 10 mg Q24H PRN NE 05/01/17 17:30 05/31/17 17:29 Carvedilol (Coreg Tab) 25 mg BID PO 05/01/17 21:00 05/31/17 20:59 05/03/17 20:15 25 MG Fentanyl (Duragesic Patch) 12 mcg Q3D@0900 TD 05/02/17 09:00 05/16/17 08:59 05/02/17 09:10 12 MCG Hydroxyzine HCl (Vistaril Tab) 25 mg QID PRN PO 05/01/17 17:30 05/31/17 17:29 Levothyroxine Sodium (Synthroid Tab) 25 mcg DAILYBB PO 05/02/17 06:00 06/01/17 06:59 05/04/17 05:56 25 MCG Loratadine (Claritin Tab) 10 mg DAILY PO 05/02/17 09:00 06/01/17 08:59 05/03/17 09:21 10 MG Magnesium Hydroxide (Milk Of Magnesia Susp) 30 ml DAILY PRN PO 05/01/17 17:30 05/31/17 17:29 05/02/17 15:39 30 ML Multivitamins/ Minerals (Multivitamin W/ Minerals Tab) 1 tab QAM PO 05/02/17 09:00 06/01/17 08:59 05/03/17 09:25 1 TAB Pregabalin (Lyrica Cap) 75 mg BID PO 05/01/17 21:00 05/31/17 20:59 05/03/17 20:21 75 MG Senna/Docusate Sodium (Senokot S Tab) 2 tab HS PO 05/01/17 21:00 05/31/17 20:59 05/03/17 20:17 2 TAB Trazodone HCl (Desyrel Tab) 50 mg HS PO 05/01/17 21:00 05/31/17 20:59 05/03/17 20:16 50 MG Ursodiol (Actigall Cap) 300 mg BID PO 05/01/17 21:00 05/31/17 20:59 05/03/17 20:15 300 MG Venlafaxine HCl (effeXOR EXTENDED REL CAP) 75 mg DAILY PO 05/02/17 09:00 06/01/17 08:59 05/03/17 09:23 75 MG Pantoprazole Sodium (Protonix Tab) 40 mg QAM PO 05/02/17 09:00 06/01/17 08:59 05/03/17 09:25 40 MG Insulin Detemir (Levemir Flexpen/ FlexTouch) 35 units BID SC 05/01/17 21:00 05/31/17 20:59 05/03/17 20:35 35 UNITS Polyethylene (Miralax Powder Packet) 17 gm QAM PO 05/02/17 09:00 06/01/17 08:59 05/03/17 09:25 17 GM Apixaban (Eliquis Tab) 5 mg BID PO 05/01/17 21:00 05/31/17 20:59 05/03/17 20:16 5 MG Miscellaneous (Fentanyl Patch Remove & Waste) 1 ea Q3D@0859 N/A 05/02/17 08:59 06/01/17 08:58 05/02/17 09:08 1 EA Miscellaneous Information (Check Fentanyl Patch Placement) 1 ea QS N/A 05/02/17 00:00 06/01/17 00:00 05/03/17 23:49 1 EA Nitroglycerin (Nitrostat Tab) 0.4 mg UD PRN SL 05/01/17 19:00 05/31/17 18:59 Ergocalciferol (Vitamin D Cap) 50,000 interunit Q7D@0900 PO 05/02/17 09:00 06/01/17 08:59 05/02/17 08:55 50,000 INTERUNIT Vancomycin HCl (Consult) 1 ea DAILY PRN N/A 05/01/17 22:09 05/31/17 22:08 Aztreonam (Consult) 1 ea DAILY PRN N/A 05/01/17 22:09 05/31/17 22:08 Aztreonam 2000 mg/ Dextrose 110 ml @ 110 mls/hr Q8 IV 05/02/17 06:00 05/12/17 05:59 05/04/17 05:55 110 MLS/HR Vancomycin HCl 1750 mg/Sodium Chloride 535 ml @ 200 mls/hr Q24H IV 05/02/17 23:00 05/12/17 22:59 05/03/17 23:48 200 MLS/HR Furosemide 40 mg/ Albumin Human 54 ml @ 54 mls/hr TID IV 05/02/17 09:00 05/05/17 08:59 05/03/17 20:25 54 MLS/HR Last 24 Hours Test 05/03/17 11:07 05/04/17 06:50 05/04/17 07:00 Bedside Glucose 219 mg/dl 195 mg/dl Assessment & Plan BART-was 3.7 in the office, 3.1 on presentation and now 2.5. on albumin/lasix/ sodium restriction/leg elevation and responding favorably. would like to continue current plan. swelling in legs is improving. perhaps having fluid shifts in the legs which is contributing to the pain. labs pending for today. legs though are improving. able to see an outline of his knee and ankle now where previously was unable to visualize this. removing about 2 liters negative a day.
[2017-05-04 07:43] LABS: BUN/CREATININE RATIO 21.7 (10-20); CREATININE 2.8 mg/dl (0.60-1.40); POTASSIUM 4.6 mmol/L (3.5-5.1)
[2017-05-04 07:44] LABS: CALCIUM 8.4 mg/dl (8.5-10.1)
[2017-05-04] MEDS: INSULIN ASPART 100 UNITS/ML 3 ML PEN SC SCH ×4 (10:15→20:49)
[2017-05-04] MEDS: CHECK FENTANYL PATCH PLACEMENT SCH ×3 (10:16→23:41)
[2017-05-04] MEDS: ALBUMIN 25% 50 ML with FUROSEMIDE INJ 40 MG IV SCH ×6 (10:19→20:39)
[2017-05-04] MEDS: URSODIOL 300 MG CAP PO SCH ×2 (10:23→20:42)
[2017-05-04] MEDS: LORATADINE 10 MG TAB PO SCH (10:24)
[2017-05-04] MEDS: CARVEDILOL 25 MG TAB PO SCH ×2 (10:25→20:43)
[2017-05-04] MEDS: VENLAFAXINE HCL XR 75 MG CAPXR PO SCH (10:26)
[2017-05-04] MEDS: APIXABAN 2.5 MG TAB PO SCH ×2 (10:27→20:42)
[2017-05-04] MEDS: POLYETHYLENE (MIRALAX) 17 GM PACK PO SCH (10:29)
[2017-05-04] MEDS: PREGABALIN 75 MG CAP PO SCH ×2 (10:30→20:49)
[2017-05-04] MEDS: CEROVITE ADV FORMULA TAB PO SCH (10:30)
[2017-05-04] MEDS: PANTOprazole SOD 40 MG TAB PO SCH (10:33)
[2017-05-04] MEDS: INSULIN DETEMIR FLEXPEN/FLEX TOUCH 100 UNITS/ML 3ML SC SCH ×2 (10:34→20:49)
--- NOTE | 2017-05-04 16:50 | Cardiology Progress Note ---
Cardiology Progress Note Date of Service May 04, 2017. Cardiology Progress Note CARDIOLOGY FOLLOWUP NOTE Patient Name: Ra Perez Date of : 1960 Date of Service: 05/04/17 Chief complaint: Follow-up edema SUBJECTIVE: Ra is seen in follow-up. He was busy speaking on the phone to a loved one. He denied any concerns on brief interview with him. Telemetry reveals ventricular paced rhythm. He continues to diuresis vigorously on his current dose of diuretic. OBJECTIVE: Physical Exam: Last Vital Signs Documentation Date Time Temp Pulse Resp B/P (MAP) Pulse Ox O2 Delivery O2 Flow Rate FiO2 05/04/17 16:27 36.6 63 16 146/82 (103) 93 Room Air General: AAOx3, No acute distress Extremities: Improving edema Data: Biventricular pacemaker AICD interrogation was reviewed today as it was scanned into his chart. The generator longevity was estimated to be 1.9 years. His biventricular paced 99% the time period and he is in atrial fibrillation greater than 99% of the time. Since the device was last checked on 02/21/17 there had been one ventricular tachycardia episode that responded to antitachycardia pacing on 05/01/17. ASSESSMENT: 56-year-old male 1. Volume overload, multifactorial due to dietary nonadherence, underlying diastolic HF, renal insufficiency, venous insufficiency. 2. Normal left ventricular ejection fraction on echocardiogram performed 2016 at [facility] Episode suggestive of sustained ventricular tachycardia that responded to antitachycardia pacing on 05/01/17 no apparent associated symptoms 3. History of chronic persistent atrial fibrillation, biventricular AICD, followed in [place] 4. Cellulitis 5. Acute kidney insufficiency on chronic kidney disease 6. Suspected underlying sleep apnea PLAN: Continue current dose of diuretic, furosemide 40 mg IV 3 times a day with albumin Continue chronic cardiac medications. Bola Brumfield DO, [facility]
--- NOTE | 2017-05-04 19:54 | Infectious Disease Progress Nt ---
Progress Note Date of Service May 04, 2017. Subjective Pt evaluation today including: conversation w/ patient, physical exam, chart review, lab review, review of studies, conversation w/ operations consultant, review of inpatient medication list Patient offers no new complaints today. States the pain and swelling in legs is better. Remains afebrile. Cultures growing Pseudomonas and Streptococcus species. All Other Systems: Reviewed and Negative Medications Current Inpatient Medications Medications (Trade) Dose Ordered Sig/Miguel Route Start Time Stop Time Status Last Admin Dose Admin Acetaminophen (Tylenol Tab) 650 mg Q4H PRN PO 05/01/17 16:30 05/31/17 16:29 Ondansetron HCl (Zofran Inj) 4 mg Q6H PRN IV 05/01/17 16:30 05/31/17 16:29 Insulin Aspart (novoLOG ASPART) SLIDING SCALE If C... ACHS SC 05/01/17 21:00 05/31/17 20:59 05/04/17 17:22 13 UNITS Glucose (Glucose 40% Gel) 15-30 GRAMS 15 GRAMS... UD PRN PO 05/01/17 16:45 05/31/17 16:44 Glucose (Glucose Chew Tab) 4-8 Tablets 4 Tabl... UD PRN PO 05/01/17 16:45 05/31/17 16:44 Dextrose (Dextrose 50% 50ML Syringe) 25-50ML OF 50% DW IV FOR... UD PRN IV 05/01/17 16:45 05/31/17 16:44 Glucagon (Glucagon Inj) 1 mg UD PRN SQ 05/01/17 16:45 05/31/17 16:44 Acetaminophen/ Codeine Phosphate (Tylenol w/ Codeine #3 Tab) 1 tab Q6 PRN PO 05/01/17 17:30 05/31/17 17:29 05/04/17 19:14 1 TAB Albuterol (Ventolin Hfa Inhaler) 2 puffs Q6H PRN INH 05/01/17 17:30 05/31/17 17:29 Atorvastatin Calcium (Lipitor Tab) 80 mg HS PO 05/01/17 21:00 05/31/17 20:59 05/03/17 20:17 80 MG Bisacodyl (Dulcolax Supp) 10 mg Q24H PRN NC 05/01/17 17:30 05/31/17 17:29 Carvedilol (Coreg Tab) 25 mg BID PO 05/01/17 21:00 05/31/17 20:59 05/04/17 10:25 25 MG Fentanyl (Duragesic Patch) 12 mcg Q3D@0900 TD 05/02/17 09:00 05/16/17 08:59 05/02/17 09:10 12 MCG Hydroxyzine HCl (Vistaril Tab) 25 mg QID PRN PO 05/01/17 17:30 05/31/17 17:29 Levothyroxine Sodium (Synthroid Tab) 25 mcg DAILYBB PO 05/02/17 06:00 06/01/17 06:59 05/04/17 05:56 25 MCG Loratadine (Claritin Tab) 10 mg DAILY PO 05/02/17 09:00 06/01/17 08:59 05/04/17 10:24 10 MG Magnesium Hydroxide (Milk Of Magnesia Susp) 30 ml DAILY PRN PO 05/01/17 17:30 05/31/17 17:29 05/02/17 15:39 30 ML Multivitamins/ Minerals (Multivitamin W/ Minerals Tab) 1 tab QAM PO 05/02/17 09:00 06/01/17 08:59 05/04/17 10:30 1 TAB Pregabalin (Lyrica Cap) 75 mg BID PO 05/01/17 21:00 05/31/17 20:59 05/04/17 10:30 75 MG Senna/Docusate Sodium (Senokot S Tab) 2 tab HS PO 05/01/17 21:00 05/31/17 20:59 05/03/17 20:17 2 TAB Trazodone HCl (Desyrel Tab) 50 mg HS PO 05/01/17 21:00 05/31/17 20:59 05/03/17 20:16 50 MG Ursodiol (Actigall Cap) 300 mg BID PO 05/01/17 21:00 05/31/17 20:59 05/04/17 10:23 300 MG Venlafaxine HCl (effeXOR EXTENDED REL CAP) 75 mg DAILY PO 05/02/17 09:00 06/01/17 08:59 05/04/17 10:26 75 MG Pantoprazole Sodium (Protonix Tab) 40 mg QAM PO 05/02/17 09:00 06/01/17 08:59 05/04/17 10:33 40 MG Insulin Detemir (Levemir Flexpen/ FlexTouch) 35 units BID SC 05/01/17 21:00 05/31/17 20:59 05/04/17 10:34 35 UNITS Polyethylene (Miralax Powder Packet) 17 gm QAM PO 05/02/17 09:00 06/01/17 08:59 05/04/17 10:29 17 GM Apixaban (Eliquis Tab) 5 mg BID PO 05/01/17 21:00 05/31/17 20:59 05/04/17 10:27 5 MG Miscellaneous (Fentanyl Patch Remove & Waste) 1 ea Q3D@0859 N/A 05/02/17 08:59 06/01/17 08:58 05/02/17 09:08 1 EA Miscellaneous Information (Check Fentanyl Patch Placement) 1 ea QS N/A 05/02/17 00:00 06/01/17 00:00 05/04/17 16:27 1 EA Nitroglycerin (Nitrostat Tab) 0.4 mg UD PRN SL 05/01/17 19:00 05/31/17 18:59 Ergocalciferol (Vitamin D Cap) 50,000 interunit Q7D@0900 PO 05/02/17 09:00 06/01/17 08:59 05/02/17 08:55 50,000 INTERUNIT Vancomycin HCl (Consult) 1 ea DAILY PRN N/A 05/01/17 22:09 05/31/17 22:08 Aztreonam (Consult) 1 ea DAILY PRN N/A 05/01/17 22:09 05/31/17 22:08 Aztreonam 2000 mg/ Dextrose 110 ml @ 110 mls/hr Q8 IV 05/02/17 06:00 05/12/17 05:59 05/04/17 12:49 110 MLS/HR Vancomycin HCl 1750 mg/Sodium Chloride 535 ml @ 200 mls/hr Q24H IV 05/02/17 23:00 05/12/17 22:59 05/03/17 23:48 200 MLS/HR Furosemide 40 mg/ Albumin Human 54 ml @ 54 mls/hr TID IV 05/02/17 09:00 05/05/17 08:59 05/04/17 14:29 54 MLS/HR Objective Vital Signs Date Time Temp Pulse Resp B/P (MAP) Pulse Ox O2 Delivery O2 Flow Rate FiO2 05/04/17 19:09 36.4 63 20 143/78 (99) 96 Room Air 05/04/17 17:08 Room Air 05/04/17 16:27 36.6 63 16 146/82 (103) 93 Room Air 05/04/17 16:00 Room Air 05/04/17 12:24 93 Room Air 05/04/17 12:00 Room Air 05/04/17 11:23 36.5 66 24 131/91 (104) 97 05/04/17 08:22 36.7 64 18 143/81 (101) 95 05/04/17 08:00 Room Air 05/04/17 04:29 36.5 65 16 140/82 (101) 94 Room Air 05/04/17 04:00 Room Air 05/04/17 00:00 Room Air 05/03/17 22:50 36.6 66 16 134/89 (104) 94 Room Air 05/03/17 20:04 36.7 62 16 163/92 (115) 94 Room Air 05/03/17 20:00 95 Room Air Physical Exam General Appearance: WD/WN, no apparent distress Eyes: normal inspection, EOMI, sclerae normal ENT: normal ENT inspection, pharynx normal Neck: supple, no adenopathy, thyroid normal, trachea midline Respiratory/Chest: chest non-tender, lungs clear, normal breath sounds, no respiratory distress Cardiovascular: regular rate, rhythm, no gallop, no murmur Abdomen: normal bowel sounds, non tender, soft, no organomegaly Extremities: no calf tenderness, + inflammation, + swelling Neurologic/Psychiatric: alert, oriented x 3 Skin: normal color, no rash, + pertinent finding ( Improving lower extremity erythema) Lymphatic: no adenopathy Laboratory Results RUN DATE: 05/04/17 [facility] PAGE 1 RUN TIME: 814 Specimen Inquiry PATIENT: MARICEL BILLY LOC: Naila U # : [id number] AGE/SX: 56/M ROOM: [facility] REG : 05/01/[address]: Tonny Mason M.D. : 1960 BED: 1 DIS : STATUS: ADM IN TLOC: SPEC #: [id number] MILEY: 05/01/17-UNK STATUS: RES REQ #: [id number] RECD: 05/01/[address] [facility] [address]: Dali Rios PA-C SOURCE: DRAIN-SURF ENTR: 05/01/[address] [facility] [address]: Carmelita Rivas [facility] LEG Darshan Conroy MD, Thomas O. , Veena Moreno ., [place]a [place] , Roberta Harper Satish K., MD ORDERED: SURF WND CU/SMR COMMENTS: Has Specimen Been Obtained/Collected? Y Procedure Result Verified Site GRAM STAIN Final 05/02/17-075 RESULT RARE WBCs SEEN MANY GRAM POSITIVE COCCI FEW GRAM NEGATIVE BACILLI SURFACE WOUND CULTURE Preliminary 05/04/17 Organism 1 GRAM NEGATIVE BACILLI QUANITY MODERATE SENS SENSITIVITY TO FOLLOW Organism 2 PSEUDOMONAS AERUGINOSA QUANITY MODERATE SENS SENSITIVITY TO FOLLOW Organism 3 STREPTOCOCCUS SPECIES QUANITY MODERATE SENS SENSITIVITY TO FOLLOW 2. PSEUDOMONAS AERUGINOSA Target Route Dose RX AB Cost M.I.C. IQ ------ ----- ------ -- ------ -------- - ------ CEFTAZIDIME S <=1 CEFEPIME S <=4 IMIPENEM S <=1 AZTREONAM S <=4 GENTAMICIN S <=4 TOBRAMYCIN S <=4 AMIKACIN S <=16 CIPROFLOXACIN S <=1 LEVOFLOXACIN S <=2 PIP/TAZO S <=16 S = SENSITIVE I = INTERMEDIATE R = RESISTANT END OF REPORT Last 24 Hours Test 05/03/17 20:27 05/04/17 06:50 05/04/17 07:00 05/04/17 11:35 Bedside Glucose 163 mg/dl 195 mg/dl 280 mg/dl Sodium Level 137 mmol/L Potassium Level 4.6 mmol/L Chloride Level 104 mmol/L Carbon Dioxide Level 27 mmol/L Anion Gap 6.0 mmol/L Blood Urea Nitrogen 61 mg/dl Creatinine 2.80 mg/dl Est Creatinine Clear Calc Drug Dose 58.1 ml/min Estimated GFR () 27.8 Estimated GFR (Non- 24.0 BUN/Creatinine Ratio 21.7 Random Glucose 214 mg/dl Calcium Level 8.4 mg/dl Test 05/04/17 16:40 Bedside Glucose 192 mg/dl Assessment and Plan Bilateral lower extremity cellulitis in the setting of chronic lymphedema and venous stasis disease. Current treatment with vancomycin and aztreonam appropriate given multiple antibiotic allergies. We will await final culture results and adjust antibiotics accordingly. Will follow.
--- NOTE | 2017-05-04 20:13 | Progress Note ---
Internal Med Progress Note Date of Service: May 04, 2017. Provider Documentation: SUBJECTIVE: patient examined laying comfortably on room air. denies chest pain or shortness of breath. 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 (EF 55-60% on 04/05/2017 echo), Afib on Eliquis, s/p AICD/pacemaker, CAD per records, history of CVA, hx RLE DVT, CKD stage IV, DM type 2, lymphedema, with hospital admission for chronic lower extremity swelling and cellulitis BILATERAL LE CELLULITIS Has persistent bilateral LE cellulitis, failed outpatient treatment Treated with vancomycin and aztreonam inpatient April 04-2016, discharged on 12 day course of doxycycline, Bactrim added 04/22/17 -04/26 continue with Vancomycin and aztreonam, ID consult following Wound culture of lower extremity with gram negative bacilli that resulted in pseudomonas and strep GRAM STAIN Final 05/02/17-075 RESULT RARE WBCs SEEN MANY GRAM POSITIVE COCCI FEW GRAM NEGATIVE BACILLI SURFACE WOUND CULTURE Preliminary 05/04/17-08 Organism 1 GRAM NEGATIVE BACILLI QUANITY MODERATE SENS SENSITIVITY TO FOLLOW Organism 2 PSEUDOMONAS AERUGINOSA QUANITY MODERATE SENS SENSITIVITY TO FOLLOW Organism 3 STREPTOCOCCUS SPECIES QUANITY MODERATE SENS SENSITIVITY TO FOLLOW 2. PSEUDOMONAS AERUGINOSA Target Route Dose RX AB Cost M.I.C. IQ ------ ----- ------ -- ------ -------- - ------ CEFTAZIDIME S <=1 CEFEPIME S <=4 IMIPENEM S <=1 AZTREONAM S <=4 GENTAMICIN S <=4 TOBRAMYCIN S <=4 AMIKACIN S <=16 CIPROFLOXACIN S <=1 LEVOFLOXACIN S <=2 PIP/TAZO S <=16 will appreciate ID consultation on further antibiotics management with culture results ACUTE ON CHRONIC CHF History of CAD, h/o systolic and diastolic CHF, idiopathic cardiomyopathy per records, echo 04/05/17- EF 55-60%, mild concentric LVH, left atrium severely dilated Presents with weight gain, increasing abdominal girth and LE edema, dyspnea and dizziness on exertion, dry cough, exertional CP Was on torsemide 40 mg daily as outpatient which was discontinued as outpatient for BART Diuresis with Lasix 40 mg IV TID with albumin BART ON CKD STAGE IV followed by nephrology ATRIAL FIBRILLATION Rate is controlled Continue Coreg Anticoagulated on Eliquis Anemia- will trend CBC, nephrology consult suggest that patient may benefit from IV iron but will hold off on this treatment until cellulitis improves HYPOTHYROIDISM Continue levothyroxine DM TYPE 2 Continue Detemir Novolog sliding scale HISTORY OF DVT/ PE S/p IVC filter On Eliquis VITAMIN D DEFICIENCY continue with vitamin D supplements CODE STATUS Full code Vital Signs: Date Time Temp Pulse Resp B/P (MAP) Pulse Ox O2 Delivery O2 Flow Rate FiO2 05/04/17 19:09 36.4 63 20 143/78 (99) 96 Room Air 05/04/17 17:08 Room Air 05/04/17 16:27 36.6 63 16 146/82 (103) 93 Room Air 05/04/17 16:00 Room Air 05/04/17 12:24 93 Room Air 05/04/17 12:00 Room Air 05/04/17 11:23 36.5 66 24 131/91 (104) 97 05/04/17 08:22 36.7 64 18 143/81 (101) 95 05/04/17 08:00 Room Air 05/04/17 04:29 36.5 65 16 140/82 (101) 94 Room Air 05/04/17 04:00 Room Air 05/04/17 00:00 Room Air 05/03/17 22:50 36.6 66 16 134/89 (104) 94 Room Air Lab Results: Results Past 24 Hours Test 05/03/17 20:27 05/04/17 06:50 05/04/17 07:00 05/04/17 11:35 Range/Units Bedside Glucose 163 195 280 70-99 mg/dl Sodium Level 137 136-145 mmol/L Potassium Level 4.6 3.5-5.1 mmol/L Chloride Level 104 98-107 mmol/L Carbon Dioxide Level 27 21-32 mmol/L Anion Gap 6.0 3-11 mmol/L Blood Urea Nitrogen 61 7-18 mg/dl Creatinine 2.80 0.60-1.40 mg/dl Est Creatinine Clear Calc Drug Dose 58.1 ml/min Estimated GFR () 27.8 Estimated GFR (Non- 24.0 BUN/Creatinine Ratio 21.7 10-20 Random Glucose 214 70-99 mg/dl Calcium Level 8.4 8.5-10.1 mg/dl Test 05/04/17 16:40 Range/Units Bedside Glucose 192 70-99 mg/dl Microbiology Results 05/04/17 Gram Stain, Received Pending 05/04/17 Wound Culture, Received Pending 05/04/17 Gram Stain, Received Pending 05/04/17 Wound Culture, Received Pending
[2017-05-04] MEDS: DOCUSATE SODIUM/SENNA 50/8.6MG TAB PO SCH (20:42)
[2017-05-04] MEDS: ATORVASTATIN 40 MG TAB PO SCH (20:42)
[2017-05-04] MEDS: TRAZODONE HCL 50 MG TAB PO SCH (20:43)
[2017-05-04] MEDS ORDERED: VANCOMYCIN TROUGH ONE (22:30)
[2017-05-04] MEDS: VANCOMYCIN INJ 1,750 MG in SODIUM CHLORIDE 0.9% 500ML 500 ML IV SCH (23:40)
[2017-05-05] VITALS (8 sets, daily range): BP systolic 138–172; BP diastolic 60–96; PULSE 61–67; TEMP 36.4–36.8; O2SAT 94–98
[2017-05-05] MEDS: AZTREONAM 2000 MG in DEXTROSE 5% 100 ML IV SCH ×2 (05:45→14:16)
[2017-05-05] MEDS: LEVOTHYROXINE 25 MCG TAB PO SCH (05:45)
--- NOTE | 2017-05-05 06:39 | Nephrology Progress Note ---
Nephrology Progress Note Date of Service: May 05, 2017. Subjective 56 yo male with bi-v pacemaker/defibrillator with significant chronic lower extremity edema with wounds on legs being treated for a cellulitis. pt oob to chair, legs wrapped. on appropriate antibiotics. continues to urinate well. pt is happy with this admission and says he understands what we are doing and that is great. Objective Date Time Temp Pulse Resp B/P (MAP) Pulse Ox O2 Delivery O2 Flow Rate FiO2 05/05/17 04:00 95 Room Air 05/05/17 03:00 36.5 63 18 154/71 (98) 98 Room Air 05/04/17 23:59 95 Room Air 05/04/17 22:48 36.6 63 22 142/75 (97) 95 Room Air 05/04/17 20:00 Room Air 05/04/17 19:09 36.4 63 20 143/78 (99) 96 Room Air 05/04/17 17:08 Room Air 05/04/17 16:27 36.6 63 16 146/82 (103) 93 Room Air 05/04/17 16:00 Room Air 05/04/17 12:24 93 Room Air 05/04/17 12:00 Room Air 05/04/17 11:23 36.5 66 24 131/91 (104) 97 05/04/17 08:22 36.7 64 18 143/81 (101) 95 05/04/17 08:00 Room Air Physical Exam: General-aaox3, obese Eyes-no scleral icterus ENT-mmm Neck-supple Lungs-cta Qqkkd-sle-pxbvq Abdomen-bs+/nondistended Extremities-+2 non-pitting edema with open wounds Neuro-nonfocal Current Inpatient Medications Medications (Trade) Dose Ordered Sig/Miguel Route Start Time Stop Time Status Last Admin Dose Admin Acetaminophen (Tylenol Tab) 650 mg Q4H PRN PO 05/01/17 16:30 05/31/17 16:29 Ondansetron HCl (Zofran Inj) 4 mg Q6H PRN IV 05/01/17 16:30 05/31/17 16:29 Insulin Aspart (novoLOG ASPART) SLIDING SCALE If C... ACHS SC 05/01/17 21:00 05/31/17 20:59 05/04/17 20:49 7 UNITS Glucose (Glucose 40% Gel) 15-30 GRAMS 15 GRAMS... UD PRN PO 05/01/17 16:45 05/31/17 16:44 Glucose (Glucose Chew Tab) 4-8 Tablets 4 Tabl... UD PRN PO 05/01/17 16:45 05/31/17 16:44 Dextrose (Dextrose 50% 50ML Syringe) 25-50ML OF 50% DW IV FOR... UD PRN IV 05/01/17 16:45 05/31/17 16:44 Glucagon (Glucagon Inj) 1 mg UD PRN SQ 05/01/17 16:45 05/31/17 16:44 Acetaminophen/ Codeine Phosphate (Tylenol w/ Codeine #3 Tab) 1 tab Q6 PRN PO 05/01/17 17:30 05/31/17 17:29 05/04/17 19:14 1 TAB Albuterol (Ventolin Hfa Inhaler) 2 puffs Q6H PRN INH 05/01/17 17:30 05/31/17 17:29 Atorvastatin Calcium (Lipitor Tab) 80 mg HS PO 05/01/17 21:00 05/31/17 20:59 05/04/17 20:42 80 MG Bisacodyl (Dulcolax Supp) 10 mg Q24H PRN SD 05/01/17 17:30 05/31/17 17:29 Carvedilol (Coreg Tab) 25 mg BID PO 05/01/17 21:00 05/31/17 20:59 05/04/17 20:43 25 MG Fentanyl (Duragesic Patch) 12 mcg Q3D@0900 TD 05/02/17 09:00 05/16/17 08:59 05/02/17 09:10 12 MCG Hydroxyzine HCl (Vistaril Tab) 25 mg QID PRN PO 05/01/17 17:30 05/31/17 17:29 Levothyroxine Sodium (Synthroid Tab) 25 mcg DAILYBB PO 05/02/17 06:00 06/01/17 06:59 05/05/17 05:45 25 MCG Loratadine (Claritin Tab) 10 mg DAILY PO 05/02/17 09:00 06/01/17 08:59 05/04/17 10:24 10 MG Magnesium Hydroxide (Milk Of Magnesia Susp) 30 ml DAILY PRN PO 05/01/17 17:30 05/31/17 17:29 05/02/17 15:39 30 ML Multivitamins/ Minerals (Multivitamin W/ Minerals Tab) 1 tab QAM PO 05/02/17 09:00 06/01/17 08:59 05/04/17 10:30 1 TAB Pregabalin (Lyrica Cap) 75 mg BID PO 05/01/17 21:00 05/31/17 20:59 05/04/17 20:49 75 MG Senna/Docusate Sodium (Senokot S Tab) 2 tab HS PO 05/01/17 21:00 05/31/17 20:59 05/04/17 20:42 2 TAB Trazodone HCl (Desyrel Tab) 50 mg HS PO 05/01/17 21:00 05/31/17 20:59 05/04/17 20:43 50 MG Ursodiol (Actigall Cap) 300 mg BID PO 05/01/17 21:00 05/31/17 20:59 05/04/17 20:42 300 MG Venlafaxine HCl (effeXOR EXTENDED REL CAP) 75 mg DAILY PO 05/02/17 09:00 06/01/17 08:59 05/04/17 10:26 75 MG Pantoprazole Sodium (Protonix Tab) 40 mg QAM PO 05/02/17 09:00 06/01/17 08:59 05/04/17 10:33 40 MG Insulin Detemir (Levemir Flexpen/ FlexTouch) 35 units BID SC 05/01/17 21:00 05/31/17 20:59 05/04/17 20:49 35 UNITS Polyethylene (Miralax Powder Packet) 17 gm QAM PO 05/02/17 09:00 06/01/17 08:59 05/04/17 10:29 17 GM Apixaban (Eliquis Tab) 5 mg BID PO 05/01/17 21:00 05/31/17 20:59 05/04/17 20:42 5 MG Miscellaneous (Fentanyl Patch Remove & Waste) 1 ea Q3D@0859 N/A 05/02/17 08:59 06/01/17 08:58 05/02/17 09:08 1 EA Miscellaneous Information (Check Fentanyl Patch Placement) 1 ea QS N/A 05/02/17 00:00 06/01/17 00:00 05/04/17 23:41 1 EA Nitroglycerin (Nitrostat Tab) 0.4 mg UD PRN SL 05/01/17 19:00 05/31/17 18:59 Ergocalciferol (Vitamin D Cap) 50,000 interunit Q7D@0900 PO 05/02/17 09:00 06/01/17 08:59 05/02/17 08:55 50,000 INTERUNIT Vancomycin HCl (Consult) 1 ea DAILY PRN N/A 05/01/17 22:09 05/31/17 22:08 Aztreonam (Consult) 1 ea DAILY PRN N/A 05/01/17 22:09 05/31/17 22:08 Aztreonam 2000 mg/ Dextrose 110 ml @ 110 mls/hr Q8 IV 05/02/17 06:00 05/12/17 05:59 05/05/17 05:45 110 MLS/HR Vancomycin HCl 1750 mg/Sodium Chloride 535 ml @ 200 mls/hr Q24H IV 05/02/17 23:00 05/12/17 22:59 05/04/17 23:40 200 MLS/HR Furosemide 40 mg/ Albumin Human 54 ml @ 54 mls/hr TID IV 05/02/17 09:00 05/05/17 08:59 05/04/17 20:39 54 MLS/HR Last 24 Hours Test 05/04/17 06:50 05/04/17 07:00 05/04/17 11:35 05/04/17 16:40 Bedside Glucose 195 mg/dl 280 mg/dl 192 mg/dl Sodium Level 137 mmol/L Potassium Level 4.6 mmol/L Chloride Level 104 mmol/L Carbon Dioxide Level 27 mmol/L Anion Gap 6.0 mmol/L Blood Urea Nitrogen 61 mg/dl Creatinine 2.80 mg/dl Est Creatinine Clear Calc Drug Dose 58.1 ml/min Estimated GFR () 27.8 Estimated GFR (Non- 24.0 BUN/Creatinine Ratio 21.7 Random Glucose 214 mg/dl Calcium Level 8.4 mg/dl Test 05/04/17 20:21 05/04/17 22:21 05/05/17 04:44 Bedside Glucose 245 mg/dl Vancomycin Level Trough 16.0 mcg/ml Date/Time Source Procedure Growth Status 05/04/17 11:30 Ulcer Toe Right 1 Gram Stain Pending Received 05/04/17 11:30 Ulcer Toe Right 1 Wound Culture Pending Received 05/04/17 11:30 Ulcer Foot Right Gram Stain Pending Received 05/04/17 11:30 Ulcer Foot Right Wound Culture Pending Received Assessment & Plan BART-was 3.7 in the office, 3.1 on presentation and now 2.8. creatinine did initially improve to 2.5 and now trending back up and is 2.8 yesterday. labs pending for this am. on albumin/lasix/sodium restriction/leg elevation and responding favorably. urinating, but appears to be slowing down and creatinine also starting to trend up as well. still with significant edema in the legs and feel we shoudl continue the albumin and lasix. question would be, should we increase the dose of the diuretics. will see the creatinine trend and discuss further with hospitalist and cardiology.
[2017-05-05 07:02] LABS: BASO % 0.4 %; BASO ABS # 0.03 K/uL (0-0.2); EOS % 4.6 %; HEMATOCRIT 27.8 % (42-52); IG% 0.1 %; LYMPH % 18.2 %; LYMPH ABS # 1.26 K/uL (1.2-3.4); MEAN CELL VOLUME 82.5 fL (80-100); MEAN CORPUSCULAR HEMOGLOBIN 24.9 pg (25-34); MEAN CORPUSCULAR HGB CONC 30.2 g/dl (32-36); MEAN PLATELET VOLUME 9.2 fL (7.4-10.4); MONO % 8.4 %; NEUT % 68.3 %; PLATELET COUNT 201 K/uL (130-400); RED BLOOD COUNT 3.37 M/uL (4.7-6.1); WHITE BLOOD COUNT 6.92 K/uL (4.8-10.8)
[2017-05-05 07:37] LABS: BUN/CREATININE RATIO 21.3 (10-20); CALCIUM 8.4 mg/dl (8.5-10.1); CREATININE 2.9 mg/dl (0.60-1.40); POTASSIUM 4.5 mmol/L (3.5-5.1)
[2017-05-05 07:52] LABS: ANISOCYTOSIS PRESENT; COMPLETE YES; TEAR DROP CELLS 1+
[2017-05-05] MEDS: CHECK FENTANYL PATCH PLACEMENT SCH ×2 (08:21→16:00)
[2017-05-05] MEDS: VENLAFAXINE HCL XR 75 MG CAPXR PO SCH (08:22)
[2017-05-05] MEDS: LORATADINE 10 MG TAB PO SCH (08:22)
[2017-05-05] MEDS: URSODIOL 300 MG CAP PO SCH ×2 (08:22→21:00)
[2017-05-05] MEDS: APIXABAN 2.5 MG TAB PO SCH ×2 (08:23→21:00)
[2017-05-05] MEDS: PANTOprazole SOD 40 MG TAB PO SCH (08:23)
[2017-05-05] MEDS: CEROVITE ADV FORMULA TAB PO SCH (08:23)
[2017-05-05] MEDS: CARVEDILOL 25 MG TAB PO SCH ×2 (08:23→21:00)
[2017-05-05] MEDS: INSULIN ASPART 100 UNITS/ML 3 ML PEN SC SCH ×4 (08:29→21:00)
[2017-05-05] MEDS: INSULIN DETEMIR FLEXPEN/FLEX TOUCH 100 UNITS/ML 3ML SC SCH ×2 (08:29→21:00)
[2017-05-05] MEDS: POLYETHYLENE (MIRALAX) 17 GM PACK PO SCH (08:32)
[2017-05-05] MEDS: PREGABALIN 75 MG CAP PO SCH ×2 (08:39→21:00)
[2017-05-05] MEDS: FENTANYL 12 MCG/HR TDSY TD SCH (08:40)
[2017-05-05] MEDS: FENTANYL PATCH REMOVE & WASTE SCH (08:45)
--- NOTE | 2017-05-05 10:18 | Pharmacy Progress Note ---
Pharmacy Abx Dose Progress Nt Date of Service May 05, 2017. Pharmacy Dosing Scope The patient is currently receiving the following antimicrobial agents per Pharmacy consult: * Vancomycin 1750mg IV every 24 hours * Aztreonam 2000 mg IV every 8 hours Objective Height (Feet): 6 Height (Inches): 8.00 Weight (Kilograms): 208.600 Vital Signs (Past 12Hrs) Vital Signs Past 12 Hours Date Time Temp Pulse Resp B/P (MAP) Pulse Ox O2 Delivery O2 Flow Rate FiO2 05/05/17 07:46 36.6 63 17 138/73 (94) 94 Room Air 05/05/17 04:00 95 Room Air 05/05/17 03:00 36.5 63 18 154/71 (98) 98 Room Air 05/04/17 23:59 95 Room Air 05/04/17 22:48 36.6 63 22 142/75 (97) 95 Room Air Lab Results (24Hrs) Laboratory Tests (24 Hours) Test 05/05/17 06:36 White Blood Count 6.92 K/uL (4.8-10.8) Red Blood Count 3.37 M/uL (4.7-6.1) L Hemoglobin 8.4 g/dL (14.0-18.0) L Hematocrit 27.8 % (42-52) L Mean Corpuscular Volume 82.5 fL (80-100) Mean Corpuscular Hemoglobin 24.9 pg (25-34) L Mean Corpuscular Hemoglobin Concent 30.2 g/dl (32-36) L Platelet Count 201 K/uL (130-400) Mean Platelet Volume 9.2 fL (7.4-10.4) Neutrophils (%) (Auto) 68.3 % Lymphocytes (%) (Auto) 18.2 % Monocytes (%) (Auto) 8.4 % Eosinophils (%) (Auto) 4.6 % Basophils (%) (Auto) 0.4 % Neutrophils # (Auto) 4.72 K/uL (1.4-6.5) Lymphocytes # (Auto) 1.26 K/uL (1.2-3.4) Monocytes # (Auto) 0.58 K/uL (0.11-0.59) Eosinophils # (Auto) 0.32 K/uL (0-0.5) Basophils # (Auto) 0.03 K/uL (0-0.2) Micro Results Date/Time Source Procedure Growth Status 05/01/17 00:00 Nasal MRSA DNA Surveillance Screen - Final Specimen Negative for MRSA by DNA Probe Complete 05/04/17 11:30 Ulcer Toe Right 1 Gram Stain - Final Resulted 05/04/17 11:30 Ulcer Toe Right 1 Wound Culture Pending Resulted 05/04/17 11:30 Ulcer Foot Right Gram Stain - Final Resulted 05/04/17 11:30 Ulcer Foot Right Wound Culture Pending Resulted 05/01/17 00:00 Drainage - Surface Leg Right Lower Gram Stain - Final Resulted 05/01/17 00:00 Wound Culture - Preliminary Enterobacter Cloacae Pseudomonas Aeruginosa Streptococcus Species Resulted Risk Factors for Resistance * Current hospitalization > 5 days * Resident in a usp or extended-care facility ([facility]) * Hospitalization for 48 hours or more within the past 90 days ([facility] 04/04-) * Antimicrobial use within the last 90 days (Vancomycin, Aztreonam, Doxycycline and Bactrim) Assessment & Plan Assessment * 56 year old male ordered Vancomycin + Aztreonam for bilateral lower extremity cellulitis failing outpatient treatment. He had received Vancomycin + Aztreonam for lower ext cellulitis when admitted to the hospital 03/2017. He was transitioned to PO Doxycycline x 12 days then placed on Bactrim PO afterwards due to worsening cellulitis. Given this patient's body habitus, perhaps the doses of these PO ABX were inadequate. * He was admitted w/ BART. SCr up to 3.1 on admission, baseline ~1.9-2.2. BART possibly secondary to ADHF +/- medication induced (Bactrim). Renal fxn had been improving initially however it appears that SCr is again trending upward ( SCR 3.1-->2.8-->2.5-->2.8-->2.9). U.O. has been good - he is receiving diuresis. * He is still afebrile, WBC continues to be within normal limits, VSS - hypertension noted at times * Pharmacy has dosed vancomycin for this patient on several occasions in the past. Data from prior admissions used to guide dosing * Culture of R lower leg drainage is growing enterobacter cloacae (sensitivity to aztreonam not reported on panel, likelihood of covering this organism ~83% per antibiogram) + ps aeruginosa (pansensitive including aztreonam) + strep species (final identification and sensitivities still pending) Plan Vancomycin IV * Trough level of 16 mcg/mL is therapeutic * Continue dose of 1750 mg IV every 24 hours * Will repeat trough level in 2 days to confirm that accumulation is not occurring given body habitus (BMI 47) and potentially worsening renal fxn * Goal trough level for skin/soft-tissue infxn : 10 to 20 mcg/mL, although a trough of 15 to 20 may be needed if strep species has high CHUY Aztreonam IV * continue 2gm IV Q 8 hours for eCrCl > 30cc/min Pharmacy will continue to follow and will adjust dose/frequency as necessary. Thank you.
--- NOTE | 2017-05-05 10:37 | Wound Consultation: Inpatient ---
Wound Consultation Date of Consultation: May 04, 2017. Attending Physician: Tonny Mason M.D. Reason for Consultation: Ulcerations and edema right lower extremity History of Present Illness Patient states she's had chronic problems with significant edema in both of his legs extending into his abdomen for many years. Patient states he has developed blister formations since back in August of this year which have been intermittent and draining at times. Patient currently denies any significant increase in pain in the lower extremities. Patient denies any fever chills or night sweats. Patient denies any new chest pain or shortness of breath. Patient states that he has noticed increased blister formation in the lower leg and foot area over the past month. Patient denies any other systemic complaints at this time. Family History FH: CAD (coronary artery disease) FATHER ( of [place] late s) Social History Smoking Status: Former Smoker Smokeless Tobacco Use: No Drug Use: none Marital Status: Housing Status: unknown Occupation Status: retired Allergies Coded Allergies: Amoxicillin (Verified Allergy, Unknown, unknown, 04/04/17) Cephalosporins (Verified Allergy, Unknown, unknown, 04/04/17) Ciprofloxacin (Verified Allergy, Unknown, unknown, 04/04/17) Clindamycin (Verified Allergy, Unknown, unknown, 04/04/17) Iodinated Diagnostic Agents (Verified Allergy, Unknown, unknown, 04/04/17) Penicillins (Unverified Allergy, Unknown, unknown, 04/04/17) Perflutren (Verified Allergy, Unknown, PERFLUTREN LIPID MICROSPHERES, 04/04) Home Medications Scheduled Apixaban (Eliquis), 5 MG PO BID Atorvastatin (Atorvastatin Calcium), 40 MG PO HS Carvedilol (Coreg), 25 MG PO BID Esomeprazole Magnesium (Nexium), 40 MG PO DAILY Fentanyl (Fentanyl), 12 MCG TOP [id number] Insulin Aspart (Novolog), 15 UNITS SQ TIDM Insulin Detemir (Levemir), 35 UNITS SQ BID Levothyroxine Sodium (Synthroid), 25 MCG PO DAILY Loratadine (Claritin), 10 MG PO DAILY Magnesium Hydroxide (Milk of Magnesia), 30 ML PO UD Melatonin (Melatonin), 10 MG PO HS Multiple Vitamins W/ Minerals (Theragran-M), 1 TAB PO QAM Polyethylene Glycol 3350 (Miralax), 17 GM PO DAILY Pregabalin (Lyrica), 75 MG PO BID Sennosides-Docusate Sodium (Sennalax-S), 2 TABS PO HS Trazodone Hcl (Trazodone), 50 MG PO HS Ursodiol (Ursodiol), 300 MG PO BID Venlafaxine Hcl (Venlafaxine Extended Rel), 75 MG PO DAILY Scheduled PRN Acetaminophen (Tylenol), 500 MG PO Q4 PRN for Pain or Fever Acetaminophen/Codeine (Tylenol W/Codeine #3), 1 TAB PO Q6 PRN for Pain Albuterol Hfa (Ventolin Hfa), 2 PUFFS INH Q6H PRN for Wheezing Bisacodyl (Dulcolax), 1 SUPP NE Q24H PRN for no bm past 2 days Hydroxyzine Hcl (Atarax), 25 MG PO QID PRN for Itching Nitroglycerin (Nitrostat), 0.4 MG UT UD PRN for Chest Pain Ondansetron Hcl (Zofran), 4-8 MG PO Q8 PRN for Nausea Miscellaneous Medications Glucagon (Glucagon Emergency Kit) Inpatient Medications Current Inpatient Medications Medications (Trade) Dose Ordered Sig/Miguel Route Start Time Stop Time Status Last Admin Dose Admin Acetaminophen (Tylenol Tab) 650 mg Q4H PRN PO 05/01/17 16:30 05/31/17 16:29 Ondansetron HCl (Zofran Inj) 4 mg Q6H PRN IV 05/01/17 16:30 05/31/17 16:29 Insulin Aspart (novoLOG ASPART) SLIDING SCALE If C... ACHS SC 05/01/17 21:00 05/31/17 20:59 05/05/17 08:29 27 UNITS Glucose (Glucose 40% Gel) 15-30 GRAMS 15 GRAMS... UD PRN PO 05/01/17 16:45 05/31/17 16:44 Glucose (Glucose Chew Tab) 4-8 Tablets 4 Tabl... UD PRN PO 05/01/17 16:45 05/31/17 16:44 Dextrose (Dextrose 50% 50ML Syringe) 25-50ML OF 50% DW IV FOR... UD PRN IV 05/01/17 16:45 05/31/17 16:44 Glucagon (Glucagon Inj) 1 mg UD PRN SQ 05/01/17 16:45 05/31/17 16:44 Acetaminophen/ Codeine Phosphate (Tylenol w/ Codeine #3 Tab) 1 tab Q6 PRN PO 05/01/17 17:30 05/31/17 17:29 05/04/17 19:14 1 TAB Albuterol (Ventolin Hfa Inhaler) 2 puffs Q6H PRN INH 05/01/17 17:30 05/31/17 17:29 Atorvastatin Calcium (Lipitor Tab) 80 mg HS PO 05/01/17 21:00 05/31/17 20:59 05/04/17 20:42 80 MG Bisacodyl (Dulcolax Supp) 10 mg Q24H PRN NE 05/01/17 17:30 05/31/17 17:29 Carvedilol (Coreg Tab) 25 mg BID PO 05/01/17 21:00 05/31/17 20:59 05/05/17 08:23 25 MG Fentanyl (Duragesic Patch) 12 mcg Q3D@0900 TD 05/02/17 09:00 05/16/17 08:59 05/05/17 08:40 12 MCG Hydroxyzine HCl (Vistaril Tab) 25 mg QID PRN PO 05/01/17 17:30 05/31/17 17:29 Levothyroxine Sodium (Synthroid Tab) 25 mcg DAILYBB PO 05/02/17 06:00 06/01/17 06:59 05/05/17 05:45 25 MCG Loratadine (Claritin Tab) 10 mg DAILY PO 05/02/17 09:00 06/01/17 08:59 05/05/17 08:22 10 MG Magnesium Hydroxide (Milk Of Magnesia Susp) 30 ml DAILY PRN PO 05/01/17 17:30 05/31/17 17:29 05/02/17 15:39 30 ML Multivitamins/ Minerals (Multivitamin W/ Minerals Tab) 1 tab QAM PO 05/02/17 09:00 06/01/17 08:59 05/05/17 08:23 1 TAB Pregabalin (Lyrica Cap) 75 mg BID PO 05/01/17 21:00 05/31/17 20:59 05/05/17 08:39 75 MG Senna/Docusate Sodium (Senokot S Tab) 2 tab HS PO 05/01/17 21:00 05/31/17 20:59 05/04/17 20:42 2 TAB Trazodone HCl (Desyrel Tab) 50 mg HS PO 05/01/17 21:00 05/31/17 20:59 05/04/17 20:43 50 MG Ursodiol (Actigall Cap) 300 mg BID PO 05/01/17 21:00 05/31/17 20:59 05/05/17 08:22 300 MG Venlafaxine HCl (effeXOR EXTENDED REL CAP) 75 mg DAILY PO 05/02/17 09:00 06/01/17 08:59 05/05/17 08:22 75 MG Pantoprazole Sodium (Protonix Tab) 40 mg QAM PO 05/02/17 09:00 06/01/17 08:59 05/05/17 08:23 40 MG Insulin Detemir (Levemir Flexpen/ FlexTouch) 35 units BID SC 05/01/17 21:00 05/31/17 20:59 05/05/17 08:29 35 UNITS Polyethylene (Miralax Powder Packet) 17 gm QAM PO 05/02/17 09:00 06/01/17 08:59 05/05/17 08:32 17 GM Apixaban (Eliquis Tab) 5 mg BID PO 05/01/17 21:00 05/31/17 20:59 05/05/17 08:23 5 MG Miscellaneous (Fentanyl Patch Remove & Waste) 1 ea Q3D@0859 N/A 05/02/17 08:59 06/01/17 08:58 05/05/17 08:45 1 EA Miscellaneous Information (Check Fentanyl Patch Placement) 1 ea QS N/A 05/02/17 00:00 06/01/17 00:00 05/05/17 08:21 1 EA Nitroglycerin (Nitrostat Tab) 0.4 mg UD PRN SL 05/01/17 19:00 05/31/17 18:59 Ergocalciferol (Vitamin D Cap) 50,000 interunit Q7D@0900 PO 05/02/17 09:00 06/01/17 08:59 05/02/17 08:55 50,000 INTERUNIT Vancomycin HCl (Consult) 1 ea DAILY PRN N/A 05/01/17 22:09 05/31/17 22:08 Aztreonam (Consult) 1 ea DAILY PRN N/A 05/01/17 22:09 05/31/17 22:08 Aztreonam 2000 mg/ Dextrose 110 ml @ 110 mls/hr Q8 IV 05/02/17 06:00 05/12/17 05:59 05/05/17 05:45 110 MLS/HR Vancomycin HCl 1750 mg/Sodium Chloride 535 ml @ 200 mls/hr Q24H IV 05/02/17 23:00 05/12/17 22:59 05/04/17 23:40 200 MLS/HR Review of Systems 10 systems were reviewed in fair entirety and positive findings were noted in the chief complaint history of present illness Physical Exam Date Time Temp Pulse Resp B/P (MAP) Pulse Ox O2 Delivery O2 Flow Rate FiO2 05/05/17 07:46 36.6 63 17 138/73 (94) 94 Room Air 05/05/17 04:00 95 Room Air 05/05/17 03:00 36.5 63 18 154/71 (98) 98 Room Air 05/04/17 23:59 95 Room Air 05/04/17 22:48 36.6 63 22 142/75 (97) 95 Room Air 05/04/17 20:00 Room Air 05/04/17 19:09 36.4 63 20 143/78 (99) 96 Room Air 05/04/17 17:08 Room Air 05/04/17 16:27 36.6 63 16 146/82 (103) 93 Room Air 05/04/17 16:00 Room Air 05/04/17 12:24 93 Room Air 05/04/17 12:00 Room Air 05/04/17 11:23 36.5 66 24 131/91 (104) 97 General: The patient is lying in a hospital bed in no distress. Alert, cooperative and appropriate to all questions. HEENT: Pupils equal and reactive to light. Sclera clear, EOM intact. Neck: Supple, No JVD noted Chest: CTA in all weber. No deformity Heart: RRR without murmurs, S3, S4, thrills, rubs or heaves Abdomen: Positive pitting edema extends to the umbilicus. No pain to palpation noted. Extremities: Marked +4 pitting edema bilateral lower extremities. There are multiple ulcerations with a pustular central appearance noted on the right lower extremity, right great toe and dorsal aspect of the right foot. The right lower extremity ulceration measures 17 x 16.5 x 0.1 cm, right great toe ulceration measures 1 x 2.1 x 0.1 cm and the ulcerations on the right dorsal foot measures 5 x 6.4 x 0.1 cm. No active drainage is noted. No periwound erythema present. No odor noted. Range of motion is limited due to edema. ABIs performed were 1.09 on the right and 1.17 on the left. Neurological: Alert and oriented x3. No focal deficits. Laboratory Results Last 24 Hours Test 05/04/17 11:35 05/04/17 16:40 05/04/17 20:21 05/04/17 22:21 Bedside Glucose 280 mg/dl 192 mg/dl 245 mg/dl Vancomycin Level Trough 16.0 mcg/ml Test 05/05/17 06:31 05/05/17 06:36 Bedside Glucose 207 mg/dl White Blood Count 6.92 K/uL Red Blood Count 3.37 M/uL Hemoglobin 8.4 g/dL Hematocrit 27.8 % Mean Corpuscular Volume 82.5 fL Mean Corpuscular Hemoglobin 24.9 pg Mean Corpuscular Hemoglobin Concent 30.2 g/dl Platelet Count 201 K/uL Mean Platelet Volume 9.2 fL Neutrophils (%) (Auto) 68.3 % Lymphocytes (%) (Auto) 18.2 % Monocytes (%) (Auto) 8.4 % Eosinophils (%) (Auto) 4.6 % Basophils (%) (Auto) 0.4 % Neutrophils # (Auto) 4.72 K/uL Lymphocytes # (Auto) 1.26 K/uL Monocytes # (Auto) 0.58 K/uL Eosinophils # (Auto) 0.32 K/uL Basophils # (Auto) 0.03 K/uL RDW Standard Deviation 53.5 fL RDW Coefficient of Variation 17.7 % Immature Granulocyte % (Auto) 0.1 % Immature Granulocyte # (Auto) 0.01 K/uL Basophilic Stippling 1+ Anisocytosis PRESENT Tear Drop Cells 1+ Sodium Level 136 mmol/L Potassium Level 4.5 mmol/L Chloride Level 103 mmol/L Carbon Dioxide Level 25 mmol/L Anion Gap 8.0 mmol/L Blood Urea Nitrogen 62 mg/dl Creatinine 2.90 mg/dl Est Creatinine Clear Calc Drug Dose 56.1 ml/min Estimated GFR () 26.6 Estimated GFR (Non- 23.0 BUN/Creatinine Ratio 21.3 Random Glucose 225 mg/dl Calcium Level 8.4 mg/dl Assessment & Plan Assessment: Severe peripheral lymphedema bilateral lower extremities Ulceration right lower extremity Ulceration right great toe Ulceration dorsal aspect right foot Plan: At this time all sites required debridement. With the patient's permission after the application of topical Xylocaine 4% the sites were debridement with a #5 curette. All blisters were deroofed and removed with underlying central slough. Animal bleeding occurred which was controlled direct pressure. No subcutaneous tissue was removed. All sites of be dressed with Aquacel Ag and gauze changed twice daily. It is recommended that the patient have a co-band light compression wrap with the patient refuses at this time. 1 layer Tubigrip will be applied. Patient will continue to be monitored during his hospital stay and reevaluated as needed on an outpatient basis upon discharge. This represented a non-excisional debridement of 314 cm.
[2017-05-05] MEDS: ACETAMINOPHEN/CODEINE 300/30MG TAB PO PRN (11:45)
--- NOTE | 2017-05-05 12:01 | Cardiology Follow-Up ---
Subjective General Date of Service: May 05, 2017. Chief Complaint: follow up edema Pt evaluation today including: conversation w/ patient, physical exam History of Present Illness The patient is a 56 year old male seen in follow up. Pt is in the recliner , enjoying his lunch with no complaints. Telemetry reveals paced ventricular rhythm. No VT noted on telemetry overnight. Allergies Coded Allergies: Amoxicillin (Verified Allergy, Unknown, unknown, 04/04/17) Cephalosporins (Verified Allergy, Unknown, unknown, 04/04/17) Ciprofloxacin (Verified Allergy, Unknown, unknown, 04/04/17) Clindamycin (Verified Allergy, Unknown, unknown, 04/04/17) Iodinated Diagnostic Agents (Verified Allergy, Unknown, unknown, 04/04/17) Penicillins (Unverified Allergy, Unknown, unknown, 04/04/17) Perflutren (Verified Allergy, Unknown, PERFLUTREN LIPID MICROSPHERES, 04/04) Social History Smoking Status: Former Smoker Hx Tobacco Use In Past Year?: No Hx Alcohol Use - Type And Amou: No Hx Substance Use - Type And Am: No Problem List Medical Problems: (1) Altered mental status Status: Acute (2) Anemia Status: Acute (3) Anemia Status: Acute (4) Cellulitis Status: Acute (5) Cellulitis Status: Acute (6) CHF (congestive heart failure) Status: Acute (7) Confusion Status: Acute (8) Deep vein thrombosis Status: Acute (9) Hypoglycemia Status: Acute (10) Hypoxia Status: Acute (11) Vitreous hemorrhage Status: Acute Physical Exam Vital Signs Last Vital Signs Documentation Date Time Temp Pulse Resp B/P (MAP) Pulse Ox O2 Delivery O2 Flow Rate FiO2 05/05/17 11:38 36.8 67 26 149/60 (89) 98 Room Air Physical Exam Constitutional: Level of Distress: NAD Head: normocephalic ENMT: normal ENT inspection Neck: supple Lungs: Auscultation: no wheezing, no rales/crackles, no rhonchi Cardiovascular: Heart Auscultation: pertinent finding (distant heart sounds, no murmur) Extremities: pertinent finding (2-3+ bilateral LE edema, with multiple ulcerations, R leg worse than left) Assessment and Plan Assessment and Plan Impression: 56-year-old male 1. Volume overload, multifactorial due to dietary nonadherence, underlying diastolic HF, renal insufficiency, venous insufficiency. 2. Normal left ventricular ejection fraction on echocardiogram performed 2016 at [facility] 3. History of chronic persistent atrial fibrillation, biventricular AICD, followed in [place] 4. Cellulitis 5. Acute kidney insufficiency on chronic kidney disease 6. Suspected underlying sleep apnea Plan: Creatinine now trending back up and not diuresing as vigorously. SBP still 130s to 140s. Agree with holding additional diuretics today, assessing renal function tomorrow , and consideration of proceeding with more furosemide, perhaps at higher dose. Continue Eliquis for stroke prophylaxis and DVT prophylaxis. Elquis dose to be reduced to 2.5 mg BID if at leas 2 of the following are present. Age >80 years, Creatining > 1.5mg/dl, or Wt <60 mg. Although pt 's creatinine is elevated , based on age and wt , 5 mg BID still seems to be the appropriate dose. Dr Singletary rounding for weekend. Jaime Brumfield DO Laboratory Results Last 24 Hours Test 05/04/17 16:40 05/04/17 20:21 05/04/17 22:21 05/05/17 06:31 Bedside Glucose 192 mg/dl 245 mg/dl 207 mg/dl Vancomycin Level Trough 16.0 mcg/ml Test 05/05/17 06:36 05/05/17 11:33 White Blood Count 6.92 K/uL Red Blood Count 3.37 M/uL Hemoglobin 8.4 g/dL Hematocrit 27.8 % Mean Corpuscular Volume 82.5 fL Mean Corpuscular Hemoglobin 24.9 pg Mean Corpuscular Hemoglobin Concent 30.2 g/dl Platelet Count 201 K/uL Mean Platelet Volume 9.2 fL Neutrophils (%) (Auto) 68.3 % Lymphocytes (%) (Auto) 18.2 % Monocytes (%) (Auto) 8.4 % Eosinophils (%) (Auto) 4.6 % Basophils (%) (Auto) 0.4 % Neutrophils # (Auto) 4.72 K/uL Lymphocytes # (Auto) 1.26 K/uL Monocytes # (Auto) 0.58 K/uL Eosinophils # (Auto) 0.32 K/uL Basophils # (Auto) 0.03 K/uL RDW Standard Deviation 53.5 fL RDW Coefficient of Variation 17.7 % Immature Granulocyte % (Auto) 0.1 % Immature Granulocyte # (Auto) 0.01 K/uL Basophilic Stippling 1+ Anisocytosis PRESENT Tear Drop Cells 1+ Sodium Level 136 mmol/L Potassium Level 4.5 mmol/L Chloride Level 103 mmol/L Carbon Dioxide Level 25 mmol/L Anion Gap 8.0 mmol/L Blood Urea Nitrogen 62 mg/dl Creatinine 2.90 mg/dl Est Creatinine Clear Calc Drug Dose 56.1 ml/min Estimated GFR () 26.6 Estimated GFR (Non- 23.0 BUN/Creatinine Ratio 21.3 Random Glucose 225 mg/dl Calcium Level 8.4 mg/dl Bedside Glucose 193 mg/dl
[2017-05-05] MEDS: CIPROFLOXACIN 400MG / D5W IV SCH (16:47)
--- NOTE | 2017-05-05 17:08 | Progress Note ---
Internal Med Progress Note Date of Service: May 05, 2017. Provider Documentation: SUBJECTIVE: patient examined laying comfortably on room air. denies chest pain or shortness of breath. patient s/p debridement of ulcers of right lower extremities and right leg in dressing. 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 Today I was called by pharmacy of wound culture of lower extremity that resulted as VRE besides pseudomonas. Have switched to Ciprofloxacin IV and Ampicillin IV as per discussion with pharmacist I have spoken with Dr. Kraus Infectious Disease physician, who was suggesting oral regimen of Ciprofloxacin and oral Amoxicillin. My preference is to transition to IV regimen for now before going to oral equivalents Will appreciate ID consultation on further antibiotics management with culture results 1. ENTEROBACTER CLOACAE Target Route Dose RX AB Cost M.I.C. IQ ------ ----- ------ -- ------ -------- - ------ TRIMET/SULFA S <=2/38 CEFOTAXIME R >32 CEFTRIAXONE R >32 CEFEPIME I 16 IMIPENEM S <=1 GENTAMICIN S <=4 TOBRAMYCIN S <=4 AMIKACIN S <=16 CIPROFLOXACIN S <=1 LEVOFLOXACIN S <=2 ERTAPENEM I 4 PIP/TAZO R >64 SURFACE WOUND CULTURE Final (continued) 05/05/17-1259 2. PSEUDOMONAS AERUGINOSA Target Route Dose RX AB Cost M.I.C. IQ ------ ----- ------ -- ------ -------- - ------ CEFTAZIDIME S <=1 CEFEPIME S <=4 IMIPENEM S <=1 AZTREONAM S <=4 GENTAMICIN S <=4 TOBRAMYCIN S <=4 AMIKACIN S <=16 CIPROFLOXACIN S <=1 LEVOFLOXACIN S <=2 PIP/TAZO S <=16 3. ENTEROCOCCUS FAECALIS Target Route Dose RX AB Cost M.I.C. IQ ------ ----- ------ -- ------ -------- - ------ AMPICILLIN S <=2 GENT SYNERGY R >500 VANCOMYCIN R * >16 PENICILLIN S 8 DAPTOMYCIN S <=0.5 STREP SYNERGY S <=1000 ACUTE ON CHRONIC CHF History of CAD, h/o systolic and diastolic CHF, idiopathic cardiomyopathy per records, echo 04/05/17- EF 55-60%, mild concentric LVH, left atrium severely dilated Presents with weight gain, increasing abdominal girth and LE edema, dyspnea and dizziness on exertion, dry cough, exertional CP Was on torsemide 40 mg daily as outpatient which was discontinued as outpatient for BART as inpatient was initially on diuresis with Lasix 40 mg IV TID with albumin will hold additional diuresis and reassess renal function BART ON CKD STAGE IV followed by nephrology ATRIAL FIBRILLATION Rate is controlled Continue Coreg Anticoagulated on Eliquis 5 mg BID: dose to be reduced to 2.5 mg BID if at least 2 of the following are present. Age >80 years, Creatining > 1.5mg/dl, or Wt <60 mg. Although pt 's creatinine is elevated , based on age and wt , 5 mg BID still seems to be the appropriate dose Anemia- will trend CBC, nephrology consult suggest that patient may benefit from IV iron but will hold off on this treatment until cellulitis improves HYPOTHYROIDISM Continue levothyroxine DM TYPE 2 Continue Detemir Novolog sliding scale HISTORY OF DVT/ PE S/p IVC filter On Eliquis VITAMIN D DEFICIENCY continue with vitamin D supplements CODE STATUS Full code Vital Signs: Date Time Temp Pulse Resp B/P (MAP) Pulse Ox O2 Delivery O2 Flow Rate FiO2 05/05/17 16:01 97 Room Air 05/05/17 15:26 36.4 66 18 147/86 (106) 97 Room Air 05/05/17 12:00 Room Air 05/05/17 11:38 36.8 67 26 149/60 (89) 98 Room Air 05/05/17 07:46 36.6 63 17 138/73 (94) 94 Room Air 05/05/17 07:30 Room Air 05/05/17 04:00 95 Room Air 05/05/17 03:00 36.5 63 18 154/71 (98) 98 Room Air 05/04/17 23:59 95 Room Air 05/04/17 22:48 36.6 63 22 142/75 (97) 95 Room Air 05/04/17 20:00 Room Air 05/04/17 19:09 36.4 63 20 143/78 (99) 96 Room Air Lab Results: Results Past 24 Hours Test 05/04/17 20:21 05/04/17 22:21 05/05/17 06:31 05/05/17 06:36 Range/Units Bedside Glucose 245 207 70-99 mg/dl Vancomycin Level Trough 16.0 SEE COMMENT mcg/ml White Blood Count 6.92 4.8-10.8 K/uL Red Blood Count 3.37 4.7-6.1 M/uL Hemoglobin 8.4 14.0-18.0 g/dL Hematocrit 27.8 42-52 % Mean Corpuscular Volume 82.5 80-100 fL Mean Corpuscular Hemoglobin 24.9 25-34 pg Mean Corpuscular Hemoglobin Concent 30.2 32-36 g/dl Platelet Count 201 130-400 K/uL Mean Platelet Volume 9.2 7.4-10.4 fL Neutrophils (%) (Auto) 68.3 % Lymphocytes (%) (Auto) 18.2 % Monocytes (%) (Auto) 8.4 % Eosinophils (%) (Auto) 4.6 % Basophils (%) (Auto) 0.4 % Neutrophils # (Auto) 4.72 1.4-6.5 K/uL Lymphocytes # (Auto) 1.26 1.2-3.4 K/uL Monocytes # (Auto) 0.58 0.11-0.59 K/uL Eosinophils # (Auto) 0.32 0-0.5 K/uL Basophils # (Auto) 0.03 0-0.2 K/uL RDW Standard Deviation 53.5 36.4-46.3 fL RDW Coefficient of Variation 17.7 11.5-14.5 % Immature Granulocyte % (Auto) 0.1 % Immature Granulocyte # (Auto) 0.01 0.00-0.02 K/uL Basophilic Stippling 1+ Anisocytosis PRESENT Tear Drop Cells 1+ Sodium Level 136 136-145 mmol/L Potassium Level 4.5 3.5-5.1 mmol/L Chloride Level 103 98-107 mmol/L Carbon Dioxide Level 25 21-32 mmol/L Anion Gap 8.0 3-11 mmol/L Blood Urea Nitrogen 62 7-18 mg/dl Creatinine 2.90 0.60-1.40 mg/dl Est Creatinine Clear Calc Drug Dose 56.1 ml/min Estimated GFR () 26.6 Estimated GFR (Non- 23.0 BUN/Creatinine Ratio 21.3 10-20 Random Glucose 225 70-99 mg/dl Calcium Level 8.4 8.5-10.1 mg/dl Test 05/05/17 11:33 05/05/17 16:34 Range/Units Bedside Glucose 193 180 70-99 mg/dl
--- NOTE | 2017-05-05 17:32 | Infectious Disease Progress Nt ---
Progress Note Date of Service May 05, 2017. Subjective Pt evaluation today including: conversation w/ patient, physical exam, chart review, lab review, review of studies, conversation w/ lean consultant, review of inpatient medication list patient states he is feeling somewhat better, leg pain improved, less short of breath. No fever. Tolerating antibiotics without apparent difficulty. All Other Systems: Reviewed and Negative Medications Current Inpatient Medications Medications (Trade) Dose Ordered Sig/Miguel Route Start Time Stop Time Status Last Admin Dose Admin Acetaminophen (Tylenol Tab) 650 mg Q4H PRN PO 05/01/17 16:30 05/31/17 16:29 Ondansetron HCl (Zofran Inj) 4 mg Q6H PRN IV 05/01/17 16:30 05/31/17 16:29 Insulin Aspart (novoLOG ASPART) SLIDING SCALE If C... ACHS SC 05/01/17 21:00 05/31/17 20:59 05/05/17 11:49 13 UNITS Glucose (Glucose 40% Gel) 15-30 GRAMS 15 GRAMS... UD PRN PO 05/01/17 16:45 05/31/17 16:44 Glucose (Glucose Chew Tab) 4-8 Tablets 4 Tabl... UD PRN PO 05/01/17 16:45 05/31/17 16:44 Dextrose (Dextrose 50% 50ML Syringe) 25-50ML OF 50% DW IV FOR... UD PRN IV 05/01/17 16:45 05/31/17 16:44 Glucagon (Glucagon Inj) 1 mg UD PRN SQ 05/01/17 16:45 05/31/17 16:44 Acetaminophen/ Codeine Phosphate (Tylenol w/ Codeine #3 Tab) 1 tab Q6 PRN PO 05/01/17 17:30 05/31/17 17:29 05/05/17 11:45 1 TAB Albuterol (Ventolin Hfa Inhaler) 2 puffs Q6H PRN INH 05/01/17 17:30 05/31/17 17:29 Atorvastatin Calcium (Lipitor Tab) 80 mg HS PO 05/01/17 21:00 05/31/17 20:59 05/04/17 20:42 80 MG Bisacodyl (Dulcolax Supp) 10 mg Q24H PRN ME 05/01/17 17:30 05/31/17 17:29 Carvedilol (Coreg Tab) 25 mg BID PO 05/01/17 21:00 05/31/17 20:59 05/05/17 08:23 25 MG Fentanyl (Duragesic Patch) 12 mcg Q3D@0900 TD 05/02/17 09:00 05/16/17 08:59 05/05/17 08:40 12 MCG Hydroxyzine HCl (Vistaril Tab) 25 mg QID PRN PO 05/01/17 17:30 05/31/17 17:29 Levothyroxine Sodium (Synthroid Tab) 25 mcg DAILYBB PO 05/02/17 06:00 06/01/17 06:59 05/05/17 05:45 25 MCG Loratadine (Claritin Tab) 10 mg DAILY PO 05/02/17 09:00 06/01/17 08:59 05/05/17 08:22 10 MG Magnesium Hydroxide (Milk Of Magnesia Susp) 30 ml DAILY PRN PO 05/01/17 17:30 05/31/17 17:29 05/02/17 15:39 30 ML Multivitamins/ Minerals (Multivitamin W/ Minerals Tab) 1 tab QAM PO 05/02/17 09:00 06/01/17 08:59 05/05/17 08:23 1 TAB Pregabalin (Lyrica Cap) 75 mg BID PO 05/01/17 21:00 05/31/17 20:59 05/05/17 08:39 75 MG Senna/Docusate Sodium (Senokot S Tab) 2 tab HS PO 05/01/17 21:00 05/31/17 20:59 05/04/17 20:42 2 TAB Trazodone HCl (Desyrel Tab) 50 mg HS PO 05/01/17 21:00 05/31/17 20:59 05/04/17 20:43 50 MG Ursodiol (Actigall Cap) 300 mg BID PO 05/01/17 21:00 05/31/17 20:59 05/05/17 08:22 300 MG Venlafaxine HCl (effeXOR EXTENDED REL CAP) 75 mg DAILY PO 05/02/17 09:00 06/01/17 08:59 05/05/17 08:22 75 MG Pantoprazole Sodium (Protonix Tab) 40 mg QAM PO 05/02/17 09:00 06/01/17 08:59 05/05/17 08:23 40 MG Insulin Detemir (Levemir Flexpen/ FlexTouch) 35 units BID SC 05/01/17 21:00 05/31/17 20:59 05/05/17 08:29 35 UNITS Polyethylene (Miralax Powder Packet) 17 gm QAM PO 05/02/17 09:00 06/01/17 08:59 05/05/17 08:32 17 GM Apixaban (Eliquis Tab) 5 mg BID PO 05/01/17 21:00 05/31/17 20:59 05/05/17 08:23 5 MG Miscellaneous (Fentanyl Patch Remove & Waste) 1 ea Q3D@0859 N/A 05/02/17 08:59 06/01/17 08:58 05/05/17 08:45 1 EA Miscellaneous Information (Check Fentanyl Patch Placement) 1 ea QS N/A 05/02/17 00:00 06/01/17 00:00 05/05/17 16:00 1 EA Nitroglycerin (Nitrostat Tab) 0.4 mg UD PRN SL 05/01/17 19:00 05/31/17 18:59 Ergocalciferol (Vitamin D Cap) 50,000 interunit Q7D@0900 PO 05/02/17 09:00 06/01/17 08:59 05/02/17 08:55 50,000 INTERUNIT Ciprofloxacin/ Dextrose 400 mg/ Prmx 200 ml @ 100 mls/hr Q12@0400,1600 IV 05/05/17 16:00 05/15/17 15:59 05/05/17 16:47 100 MLS/HR Ampicillin Sodium 1 gm/Sodium Chloride 50 ml @ 100 mls/hr Q6H IV 05/05/17 18:00 05/15/17 17:59 Objective Vital Signs Date Time Temp Pulse Resp B/P (MAP) Pulse Ox O2 Delivery O2 Flow Rate FiO2 05/05/17 16:01 97 Room Air 05/05/17 15:26 36.4 66 18 147/86 (106) 97 Room Air 05/05/17 12:00 Room Air 05/05/17 11:38 36.8 67 26 149/60 (89) 98 Room Air 05/05/17 07:46 36.6 63 17 138/73 (94) 94 Room Air 05/05/17 07:30 Room Air 05/05/17 04:00 95 Room Air 05/05/17 03:00 36.5 63 18 154/71 (98) 98 Room Air 05/04/17 23:59 95 Room Air 05/04/17 22:48 36.6 63 22 142/75 (97) 95 Room Air 05/04/17 20:00 Room Air 05/04/17 19:09 36.4 63 20 143/78 (99) 96 Room Air Physical Exam General Appearance: WD/WN, no apparent distress, + obese Eyes: normal inspection, sclerae normal ENT: normal ENT inspection, pharynx normal Neck: supple, no adenopathy, trachea midline Respiratory/Chest: chest non-tender, lungs clear, normal breath sounds, no respiratory distress Cardiovascular: regular rate, rhythm, no gallop, no murmur Abdomen: normal bowel sounds, non tender, soft, no organomegaly Extremities: non-tender, + inflammation, + swelling Neurologic/Psychiatric: alert, oriented x 3 Skin: normal color, + pertinent finding ( Improving lower extremity cellulitis ) Lymphatic: no adenopathy Laboratory Results Last 24 Hours Test 05/04/17 20:21 05/04/17 22:21 05/05/17 06:31 05/05/17 06:36 Bedside Glucose 245 mg/dl 207 mg/dl Vancomycin Level Trough 16.0 mcg/ml White Blood Count 6.92 K/uL Red Blood Count 3.37 M/uL Hemoglobin 8.4 g/dL Hematocrit 27.8 % Mean Corpuscular Volume 82.5 fL Mean Corpuscular Hemoglobin 24.9 pg Mean Corpuscular Hemoglobin Concent 30.2 g/dl Platelet Count 201 K/uL Mean Platelet Volume 9.2 fL Neutrophils (%) (Auto) 68.3 % Lymphocytes (%) (Auto) 18.2 % Monocytes (%) (Auto) 8.4 % Eosinophils (%) (Auto) 4.6 % Basophils (%) (Auto) 0.4 % Neutrophils # (Auto) 4.72 K/uL Lymphocytes # (Auto) 1.26 K/uL Monocytes # (Auto) 0.58 K/uL Eosinophils # (Auto) 0.32 K/uL Basophils # (Auto) 0.03 K/uL RDW Standard Deviation 53.5 fL RDW Coefficient of Variation 17.7 % Immature Granulocyte % (Auto) 0.1 % Immature Granulocyte # (Auto) 0.01 K/uL Basophilic Stippling 1+ Anisocytosis PRESENT Tear Drop Cells 1+ Sodium Level 136 mmol/L Potassium Level 4.5 mmol/L Chloride Level 103 mmol/L Carbon Dioxide Level 25 mmol/L Anion Gap 8.0 mmol/L Blood Urea Nitrogen 62 mg/dl Creatinine 2.90 mg/dl Est Creatinine Clear Calc Drug Dose 56.1 ml/min Estimated GFR () 26.6 Estimated GFR (Non- 23.0 BUN/Creatinine Ratio 21.3 Random Glucose 225 mg/dl Calcium Level 8.4 mg/dl Test 05/05/17 11:33 05/05/17 16:34 Bedside Glucose 193 mg/dl 180 mg/dl Assessment and Plan Bilateral lower extremity cellulitis in the setting of chronic lymphedema and venous stasis disease, with cultures growing Enterobacter, Pseudomonas, and Enterococcus. Given clinical improvement, think the patient can be transitioned to oral antibiotics with combination of amoxicillin 500 milligrams t.i.d. with ciprofloxacin. Discussed with hospitalist service. Will follow.
[2017-05-05] MEDS: AMPICILLIN IV 1 GM in SODIUM CHLOR 0.9% AD-VAN 50ML 50 ML IV SCH ×2 (18:04→23:56)
[2017-05-05] MEDS: TRAZODONE HCL 50 MG TAB PO SCH (21:00)
[2017-05-05] MEDS: DOCUSATE SODIUM/SENNA 50/8.6MG TAB PO SCH (21:00)
[2017-05-05] MEDS: ATORVASTATIN 40 MG TAB PO SCH (21:00)
[2017-05-06] MEDS: CHECK FENTANYL PATCH PLACEMENT SCH ×3 (00:06→16:19)
[2017-05-06] MEDS: CIPROFLOXACIN 400MG / D5W IV SCH ×2 (03:53→16:16)
[2017-05-06] MEDS: AMPICILLIN IV 1 GM in SODIUM CHLOR 0.9% AD-VAN 50ML 50 ML IV SCH ×2 (05:58→14:05)
[2017-05-06] MEDS: LEVOTHYROXINE 25 MCG TAB PO SCH (05:59)
[2017-05-06] MEDS: ACETAMINOPHEN/CODEINE 300/30MG TAB PO PRN ×2 (06:03→14:19)
[2017-05-06 06:25] LABS: BASO % 0.5 %; BASO ABS # 0.04 K/uL (0-0.2); EOS % 3.6 %; HEMATOCRIT 29.5 % (42-52); IG% 0.3 %; LYMPH % 13.9 %; LYMPH ABS # 1.07 K/uL (1.2-3.4); MEAN CELL VOLUME 83.6 fL (80-100); MEAN CORPUSCULAR HEMOGLOBIN 25.2 pg (25-34); MEAN CORPUSCULAR HGB CONC 30.2 g/dl (32-36); MEAN PLATELET VOLUME 9.4 fL (7.4-10.4); MONO % 6.9 %; NEUT % 74.8 %; PLATELET COUNT 217 K/uL (130-400); RED BLOOD COUNT 3.53 M/uL (4.7-6.1); WHITE BLOOD COUNT 7.72 K/uL (4.8-10.8)
[2017-05-06 06:50] LABS: COMPLETE YES
[2017-05-06 07:03] LABS: BUN/CREATININE RATIO 23.3 (10-20); CALCIUM 8.6 mg/dl (8.5-10.1); CREATININE 2.7 mg/dl (0.60-1.40); POTASSIUM 4.4 mmol/L (3.5-5.1)
[2017-05-06 07:05] LABS: ALB/GLOB RATIO 0.5 (0.9-2)
[2017-05-06 07:32] VITALS: BP 182/77; PULSE 66; TEMP 36.6; O2SAT 99
[2017-05-06 08:00] VITALS: O2SAT 99
[2017-05-06] MEDS: INSULIN DETEMIR FLEXPEN/FLEX TOUCH 100 UNITS/ML 3ML SC SCH ×2 (08:34→21:05)
[2017-05-06] MEDS: URSODIOL 300 MG CAP PO SCH ×2 (08:36→20:59)
[2017-05-06] MEDS: LORATADINE 10 MG TAB PO SCH (08:36)
[2017-05-06] MEDS: CARVEDILOL 25 MG TAB PO SCH ×2 (08:37→21:00)
[2017-05-06] MEDS: VENLAFAXINE HCL XR 75 MG CAPXR PO SCH (08:37)
[2017-05-06] MEDS: APIXABAN 2.5 MG TAB PO SCH ×2 (08:38→20:59)
[2017-05-06] MEDS: PREGABALIN 75 MG CAP PO SCH ×2 (08:38→20:57)
[2017-05-06] MEDS: CEROVITE ADV FORMULA TAB PO SCH (08:39)
[2017-05-06] MEDS: POLYETHYLENE (MIRALAX) 17 GM PACK PO SCH (08:39)
[2017-05-06] MEDS: PANTOprazole SOD 40 MG TAB PO SCH (08:39)
[2017-05-06] MEDS: INSULIN ASPART 100 UNITS/ML 3 ML PEN SC SCH ×4 (08:48→21:00)
[2017-05-06 08:52] VITALS: BP 162/84; PULSE 65
[2017-05-06 16:00] VITALS: BP 117/67; PULSE 71; TEMP 36.5; O2SAT 94
--- NOTE | 2017-05-06 17:39 | Progress Note ---
Internal Med Progress Note Date of Service: May 06, 2017. Provider Documentation: SUBJECTIVE: patient transferred from telemetry to medical wards. denies new complaints. I have explained to the patient that results of VRE and he expressed appreciation about being educated about his health OBJECTIVE: General Appearance: obese, no acute distress Head: normocephalic, atraumatic Eyes: normal inspection, EOMI ENT: hearing grossly normal, pharynx normal Neck: supple, trachea midline Respiratory/Chest: lungs clear, no respiratory distress, CTABL, pacemaker present Cardiovascular: regular rate, rhythm, no murmur Abdomen/GI: normal bowel sounds, soft, +bowel sounds Extremities: right leg in dressing, bilateral edema Neurologic/Psych: AOx3 ASSESSMENT & PLAN: This is a 56 y/o male with PMH of HTN, 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 Switched to Ciprofloxacin IV and Ampicillin IV from 05/05 to 05/06 after results of wound culture of lower extremity growing VRE besides pseudomonas. Switching to oral regimen of Ciprofloxacin and oral Amoxicillin on 05/06 as recommended by infectious disease consult Will appreciate ID consultation on further antibiotics management 1. ENTEROBACTER CLOACAE Target Route Dose RX AB Cost M.I.C. IQ ------ ----- ------ -- ------ -------- - ------ TRIMET/SULFA S <=2/38 CEFOTAXIME R >32 CEFTRIAXONE R >32 CEFEPIME I 16 IMIPENEM S <=1 GENTAMICIN S <=4 TOBRAMYCIN S <=4 AMIKACIN S <=16 CIPROFLOXACIN S <=1 LEVOFLOXACIN S <=2 ERTAPENEM I 4 PIP/TAZO R >64 SURFACE WOUND CULTURE Final (continued) 05/05/17-1259 2. PSEUDOMONAS AERUGINOSA Target Route Dose RX AB Cost M.I.C. IQ ------ ----- ------ -- ------ -------- - ------ CEFTAZIDIME S <=1 CEFEPIME S <=4 IMIPENEM S <=1 AZTREONAM S <=4 GENTAMICIN S <=4 TOBRAMYCIN S <=4 AMIKACIN S <=16 CIPROFLOXACIN S <=1 LEVOFLOXACIN S <=2 PIP/TAZO S <=16 3. ENTEROCOCCUS FAECALIS Target Route Dose RX AB Cost M.I.C. IQ ------ ----- ------ -- ------ -------- - ------ AMPICILLIN S <=2 GENT SYNERGY R >500 VANCOMYCIN R * >16 PENICILLIN S 8 DAPTOMYCIN S <=0.5 STREP SYNERGY S <=1000 ACUTE ON CHRONIC CHF History of CAD, h/o systolic and diastolic CHF, idiopathic cardiomyopathy per records, echo 04/05/17- EF 55-60%, mild concentric LVH, left atrium severely dilated Presents with weight gain, increasing abdominal girth and LE edema, dyspnea and dizziness on exertion, dry cough, exertional CP Was on torsemide 40 mg daily as outpatient which was discontinued as outpatient for BART as inpatient was initially on diuresis with Lasix 40 mg IV TID with albumin will hold additional diuresis and reassess renal function, pending nephrology recommendations BART ON CKD STAGE IV followed by nephrology ATRIAL FIBRILLATION Rate is controlled Continue Coreg Anticoagulated on Eliquis 5 mg BID: dose to be reduced to 2.5 mg BID if at least 2 of the following are present. Age >80 years, Creatinine > 1.5mg/dl, or Wt <60 mg. Although pt 's creatinine is elevated , based on age and wt , 5 mg BID still seems to be the appropriate dose Anemia- will trend CBC, nephrology consult suggest that patient may benefit from IV iron but will hold off on this treatment until cellulitis improves HYPOTHYROIDISM Continue levothyroxine DM TYPE 2 Continue Detemir Novolog sliding scale HISTORY OF DVT/ PE S/p IVC filter On Eliquis VITAMIN D DEFICIENCY continue with vitamin D supplements CODE STATUS Full code Vital Signs: Date Time Temp Pulse Resp B/P (MAP) Pulse Ox O2 Delivery O2 Flow Rate FiO2 05/06/17 16:00 36.5 71 22 117/67 (84) 94 Room Air 05/06/17 08:52 65 162/84 (110) 05/06/17 08:00 99 Room Air 05/06/17 07:32 36.6 66 20 182/77 (112) 99 Room Air 05/06/17 00:20 Room Air 05/05/17 23:56 36.4 61 18 165/81 (109) 96 Room Air 05/05/17 20:19 66 172/96 (121) 96 Room Air Lab Results: Results Past 24 Hours Test 05/05/17 20:14 05/06/17 06:00 05/06/17 07:27 05/06/17 11:23 Range/Units Bedside Glucose 172 179 167 70-99 mg/dl White Blood Count 7.72 4.8-10.8 K/uL Red Blood Count 3.53 4.7-6.1 M/uL Hemoglobin 8.9 14.0-18.0 g/dL Hematocrit 29.5 42-52 % Mean Corpuscular Volume 83.6 80-100 fL Mean Corpuscular Hemoglobin 25.2 25-34 pg Mean Corpuscular Hemoglobin Concent 30.2 32-36 g/dl Platelet Count 217 130-400 K/uL Mean Platelet Volume 9.4 7.4-10.4 fL Neutrophils (%) (Auto) 74.8 % Lymphocytes (%) (Auto) 13.9 % Monocytes (%) (Auto) 6.9 % Eosinophils (%) (Auto) 3.6 % Basophils (%) (Auto) 0.5 % Neutrophils # (Auto) 5.78 1.4-6.5 K/uL Lymphocytes # (Auto) 1.07 1.2-3.4 K/uL Monocytes # (Auto) 0.53 0.11-0.59 K/uL Eosinophils # (Auto) 0.28 0-0.5 K/uL Basophils # (Auto) 0.04 0-0.2 K/uL RDW Standard Deviation 52.9 36.4-46.3 fL RDW Coefficient of Variation 17.5 11.5-14.5 % Immature Granulocyte % (Auto) 0.3 % Immature Granulocyte # (Auto) 0.02 0.00-0.02 K/uL Basophilic Stippling 1+ Sodium Level 136 136-145 mmol/L Potassium Level 4.4 3.5-5.1 mmol/L Chloride Level 103 98-107 mmol/L Carbon Dioxide Level 25 21-32 mmol/L Anion Gap 8.0 3-11 mmol/L Blood Urea Nitrogen 63 7-18 mg/dl Creatinine 2.70 0.60-1.40 mg/dl Est Creatinine Clear Calc Drug Dose 60.2 ml/min Estimated GFR () 29.0 Estimated GFR (Non- 25.0 BUN/Creatinine Ratio 23.3 10-20 Random Glucose 161 70-99 mg/dl Calcium Level 8.6 8.5-10.1 mg/dl Total Bilirubin 0.4 0.2-1 mg/dl Aspartate Amino Transf (AST/SGOT) 13 15-37 U/L Alanine Aminotransferase (ALT/SGPT) 12 12-78 U/L Alkaline Phosphatase 202 45-117 U/L Total Protein 8.2 6.4-8.2 gm/dl Albumin 2.8 3.4-5.0 gm/dl Globulin 5.4 2.5-4.0 gm/dl Albumin/Globulin Ratio 0.5 0.9-2 Test 05/06/17 16:47 Range/Units Bedside Glucose 137 70-99 mg/dl
[2017-05-06] MEDS: AMOXICILLIN 500 MG CAP PO SCH (20:57)
[2017-05-06] MEDS: CIPROFLOXACIN 500 MG TAB PO SCH (20:57)
[2017-05-06] MEDS: TRAZODONE HCL 50 MG TAB PO SCH (20:58)
[2017-05-06] MEDS: DOCUSATE SODIUM/SENNA 50/8.6MG TAB PO SCH (20:58)
[2017-05-06] MEDS: ATORVASTATIN 40 MG TAB PO SCH (20:59)
[2017-05-06 21:00] VITALS: BP 149/87; PULSE 60
[2017-05-06] MEDS ORDERED: VANCOMYCIN TROUGH ONE (22:30)
[2017-05-06 22:38] VITALS: BP 149/87; PULSE 79; TEMP 36.3; O2SAT 93
[2017-05-07] MEDS: CHECK FENTANYL PATCH PLACEMENT SCH ×3 (00:10→16:00)
[2017-05-07] MEDS: ACETAMINOPHEN/CODEINE 300/30MG TAB PO PRN ×2 (03:36→15:10)
[2017-05-07] MEDS: LEVOTHYROXINE 25 MCG TAB PO SCH (05:42)
[2017-05-07 05:56] LABS: BASO % 0.3 %; BASO ABS # 0.03 K/uL (0-0.2); COMPLETE YES; EOS % 4.5 %; HEMATOCRIT 29.2 % (42-52); IG% 0.3 %; LYMPH % 9.1 %; LYMPH ABS # 0.92 K/uL (1.2-3.4); MEAN CELL VOLUME 82.3 fL (80-100); MEAN CORPUSCULAR HEMOGLOBIN 25.6 pg (25-34); MEAN CORPUSCULAR HGB CONC 31.2 g/dl (32-36); MEAN PLATELET VOLUME 9.3 fL (7.4-10.4); MONO % 7.8 %; PLATELET COUNT 220 K/uL (130-400); RED BLOOD COUNT 3.55 M/uL (4.7-6.1); WHITE BLOOD COUNT 10.15 K/uL (4.8-10.8)
[2017-05-07 06:30] LABS: BUN/CREATININE RATIO 24.8 (10-20); CALCIUM 8.4 mg/dl (8.5-10.1); CREATININE 2.8 mg/dl (0.60-1.40); POTASSIUM 4.4 mmol/L (3.5-5.1)
[2017-05-07 06:32] LABS: ALB/GLOB RATIO 0.5 (0.9-2)
[2017-05-07 07:24] VITALS: BP 149/82; PULSE 66; TEMP 36.7; O2SAT 95
[2017-05-07] MEDS: URSODIOL 300 MG CAP PO SCH ×2 (08:46→21:12)
[2017-05-07] MEDS: AMOXICILLIN 500 MG CAP PO SCH ×3 (08:46→21:14)
[2017-05-07] MEDS: CIPROFLOXACIN 500 MG TAB PO SCH ×2 (08:47→21:14)
[2017-05-07] MEDS: LORATADINE 10 MG TAB PO SCH (08:47)
[2017-05-07] MEDS: CARVEDILOL 25 MG TAB PO SCH ×2 (08:48→21:13)
[2017-05-07] MEDS: VENLAFAXINE HCL XR 75 MG CAPXR PO SCH (08:48)
[2017-05-07] MEDS: APIXABAN 2.5 MG TAB PO SCH ×2 (08:49→21:13)
[2017-05-07] MEDS: PREGABALIN 75 MG CAP PO SCH ×2 (08:49→21:11)
[2017-05-07] MEDS: PANTOprazole SOD 40 MG TAB PO SCH (08:49)
[2017-05-07] MEDS: CEROVITE ADV FORMULA TAB PO SCH (08:49)
[2017-05-07] MEDS: POLYETHYLENE (MIRALAX) 17 GM PACK PO SCH (08:50)
[2017-05-07 09:00] VITALS: O2SAT 95
[2017-05-07] MEDS: INSULIN ASPART 100 UNITS/ML 3 ML PEN SC SCH ×4 (09:04→21:00)
[2017-05-07] MEDS: INSULIN DETEMIR FLEXPEN/FLEX TOUCH 100 UNITS/ML 3ML SC SCH ×2 (09:05→21:12)
[2017-05-07 14:57] VITALS: BP 146/93; PULSE 64; TEMP 36.5; O2SAT 97
--- NOTE | 2017-05-07 16:59 | Progress Note ---
Internal Med Progress Note Date of Service: May 07, 2017. Provider Documentation: SUBJECTIVE: patient reporting that he is upset by small portions of his meals. otherwise denies new concerns for chest pain or shortness of breath. 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 Switched to Ciprofloxacin IV and Ampicillin IV from 05/05 to 05/06 after results of wound culture of lower extremity growing VRE besides pseudomonas. Switching to oral regimen of Ciprofloxacin and oral Amoxicillin on 05/06 as recommended by infectious disease consult Will appreciate ID consultation on further antibiotics management 1. ENTEROBACTER CLOACAE Target Route Dose RX AB Cost M.I.C. IQ ------ ----- ------ -- ------ -------- - ------ TRIMET/SULFA S <=2/38 CEFOTAXIME R >32 CEFTRIAXONE R >32 CEFEPIME I 16 IMIPENEM S <=1 GENTAMICIN S <=4 TOBRAMYCIN S <=4 AMIKACIN S <=16 CIPROFLOXACIN S <=1 LEVOFLOXACIN S <=2 ERTAPENEM I 4 PIP/TAZO R >64 SURFACE WOUND CULTURE Final (continued) 05/05/17-1259 2. PSEUDOMONAS AERUGINOSA Target Route Dose RX AB Cost M.I.C. IQ ------ ----- ------ -- ------ -------- - ------ CEFTAZIDIME S <=1 CEFEPIME S <=4 IMIPENEM S <=1 AZTREONAM S <=4 GENTAMICIN S <=4 TOBRAMYCIN S <=4 AMIKACIN S <=16 CIPROFLOXACIN S <=1 LEVOFLOXACIN S <=2 PIP/TAZO S <=16 3. ENTEROCOCCUS FAECALIS Target Route Dose RX AB Cost M.I.C. IQ ------ ----- ------ -- ------ -------- - ------ AMPICILLIN S <=2 GENT SYNERGY R >500 VANCOMYCIN R * >16 PENICILLIN S 8 DAPTOMYCIN S <=0.5 STREP SYNERGY S <=1000 ACUTE ON CHRONIC CHF History of CAD, h/o systolic and diastolic CHF, idiopathic cardiomyopathy per records, echo 04/05/17- EF 55-60%, mild concentric LVH, left atrium severely dilated Presents with weight gain, increasing abdominal girth and LE edema, dyspnea and dizziness on exertion, dry cough, exertional CP Was on torsemide 40 mg daily as outpatient which was discontinued as outpatient for BART as inpatient was initially on diuresis with Lasix 40 mg IV TID with albumin will hold additional diuresis and reassess renal function, pending nephrology recommendations BART ON CKD STAGE IV followed by nephrology ATRIAL FIBRILLATION Rate is controlled Continue Coreg Anticoagulated on Eliquis 5 mg BID: dose to be reduced to 2.5 mg BID if at least 2 of the following are present. Age >80 years, Creatinine > 1.5mg/dl, or Wt <60 mg. Although pt 's creatinine is elevated , based on age and wt , 5 mg BID still seems to be the appropriate dose Anemia- will trend CBC, nephrology consult suggest that patient may benefit from IV iron but will hold off on this treatment until cellulitis improves HYPOTHYROIDISM Continue levothyroxine DM TYPE 2 Continue Detemir Novolog sliding scale HISTORY OF DVT/ PE S/p IVC filter On Eliquis VITAMIN D DEFICIENCY continue with vitamin D supplements Diet: Heart Healthy/Low Sodium/Diabetes diet. have placed request to increase patient's meal portions CODE STATUS Full code Disposition: likely to be discharged to [facility] home when medically cleared by infectious disease service and full recommendations have been made for duration of oral antibiotic therapy Vital Signs: Date Time Temp Pulse Resp B/P (MAP) Pulse Ox O2 Delivery O2 Flow Rate FiO2 05/07/17 14:57 36.5 64 20 146/93 (110) 97 Room Air 05/07/17 09:00 95 Room Air 05/07/17 07:24 36.7 66 18 149/82 (104) 95 Room Air 05/07/17 01:21 Room Air 05/06/17 22:38 36.3 79 20 149/87 (107) 93 Room Air 05/06/17 21:00 60 149/87 (107) 05/06/17 20:00 Room Air 05/06/17 18:18 Room Air Lab Results: Results Past 24 Hours Test 05/06/17 20:02 05/07/17 05:28 05/07/17 07:36 05/07/17 11:20 Range/Units Bedside Glucose 125 98 124 70-99 mg/dl White Blood Count 10.15 4.8-10.8 K/uL Red Blood Count 3.55 4.7-6.1 M/uL Hemoglobin 9.1 14.0-18.0 g/dL Hematocrit 29.2 42-52 % Mean Corpuscular Volume 82.3 80-100 fL Mean Corpuscular Hemoglobin 25.6 25-34 pg Mean Corpuscular Hemoglobin Concent 31.2 32-36 g/dl Platelet Count 220 130-400 K/uL Mean Platelet Volume 9.3 7.4-10.4 fL Neutrophils (%) (Auto) 78.0 % Lymphocytes (%) (Auto) 9.1 % Monocytes (%) (Auto) 7.8 % Eosinophils (%) (Auto) 4.5 % Basophils (%) (Auto) 0.3 % Neutrophils # (Auto) 7.92 1.4-6.5 K/uL Lymphocytes # (Auto) 0.92 1.2-3.4 K/uL Monocytes # (Auto) 0.79 0.11-0.59 K/uL Eosinophils # (Auto) 0.46 0-0.5 K/uL Basophils # (Auto) 0.03 0-0.2 K/uL RDW Standard Deviation 52.9 36.4-46.3 fL RDW Coefficient of Variation 17.5 11.5-14.5 % Immature Granulocyte % (Auto) 0.3 % Immature Granulocyte # (Auto) 0.03 0.00-0.02 K/uL Sodium Level 137 136-145 mmol/L Potassium Level 4.4 3.5-5.1 mmol/L Chloride Level 106 98-107 mmol/L Carbon Dioxide Level 23 21-32 mmol/L Anion Gap 8.0 3-11 mmol/L Blood Urea Nitrogen 69 7-18 mg/dl Creatinine 2.80 0.60-1.40 mg/dl Est Creatinine Clear Calc Drug Dose 58.1 ml/min Estimated GFR () 27.8 Estimated GFR (Non- 24.0 BUN/Creatinine Ratio 24.8 10-20 Random Glucose 125 70-99 mg/dl Calcium Level 8.4 8.5-10.1 mg/dl Total Bilirubin 0.4 0.2-1 mg/dl Aspartate Amino Transf (AST/SGOT) 13 15-37 U/L Alanine Aminotransferase (ALT/SGPT) 13 12-78 U/L Alkaline Phosphatase 208 45-117 U/L Total Protein 8.1 6.4-8.2 gm/dl Albumin 2.8 3.4-5.0 gm/dl Globulin 5.3 2.5-4.0 gm/dl Albumin/Globulin Ratio 0.5 0.9-2 Test 05/07/17 16:27 Range/Units Bedside Glucose 141 70-99 mg/dl
[2017-05-07 19:43] VITALS: O2SAT 95
[2017-05-07] MEDS: ATORVASTATIN 40 MG TAB PO SCH (21:14)
[2017-05-07] MEDS: DOCUSATE SODIUM/SENNA 50/8.6MG TAB PO SCH (21:14)
[2017-05-07] MEDS: TRAZODONE HCL 50 MG TAB PO SCH (21:15)
[2017-05-07 22:38] VITALS: BP 179/84; PULSE 63; TEMP 36.9; O2SAT 95
[2017-05-08] MEDS: CHECK FENTANYL PATCH PLACEMENT SCH ×3 (00:23→15:57)
[2017-05-08] MEDS: ACETAMINOPHEN/CODEINE 300/30MG TAB PO PRN ×2 (02:28→12:25)
--- NOTE | 2017-05-08 06:30 | Nephrology Progress Note ---
Nephrology Progress Note Date of Service: May 08, 2017. Subjective 56 yo male with bi-v pacemaker/defibrillator with significant chronic lower extremity edema with wounds on legs being treated for a cellulitis. ID following and on appropriate antibiotics. pt appears frustrated this morning and wants to be discharged today if possible. patient has a preference to go to [facility] to get stronger and "got stuck in [facility]". Objective Date Time Temp Pulse Resp B/P (MAP) Pulse Ox O2 Delivery O2 Flow Rate FiO2 05/08/17 00:32 Room Air 05/07/17 22:38 36.9 63 20 179/84 (115) 95 Room Air 05/07/17 21:23 Room Air 05/07/17 19:43 95 Room Air 05/07/17 14:57 36.5 64 20 146/93 (110) 97 Room Air 05/07/17 09:00 95 Room Air 05/07/17 07:24 36.7 66 18 149/82 (104) 95 Room Air Physical Exam: General-aaox3, obese Eyes-no scleral icterus ENT-mmm Neck-supple Lungs-clear Yvodo-mgb-fxyhk Abdomen-bs+/nondistended Extremities-+2 non-pitting edema, legs wrapped Neuro-nonfocal Current Inpatient Medications Medications (Trade) Dose Ordered Sig/Miguel Route Start Time Stop Time Status Last Admin Dose Admin Acetaminophen (Tylenol Tab) 650 mg Q4H PRN PO 05/01/17 16:30 05/31/17 16:29 Ondansetron HCl (Zofran Inj) 4 mg Q6H PRN IV 05/01/17 16:30 05/31/17 16:29 Insulin Aspart (novoLOG ASPART) SLIDING SCALE If C... ACHS SC 05/01/17 21:00 05/31/17 20:59 05/07/17 18:42 18 UNITS Glucose (Glucose 40% Gel) 15-30 GRAMS 15 GRAMS... UD PRN PO 05/01/17 16:45 05/31/17 16:44 Glucose (Glucose Chew Tab) 4-8 Tablets 4 Tabl... UD PRN PO 05/01/17 16:45 05/31/17 16:44 Dextrose (Dextrose 50% 50ML Syringe) 25-50ML OF 50% DW IV FOR... UD PRN IV 05/01/17 16:45 05/31/17 16:44 Glucagon (Glucagon Inj) 1 mg UD PRN SQ 05/01/17 16:45 05/31/17 16:44 Acetaminophen/ Codeine Phosphate (Tylenol w/ Codeine #3 Tab) 1 tab Q6 PRN PO 05/01/17 17:30 05/31/17 17:29 05/08/17 02:28 1 TAB Albuterol (Ventolin Hfa Inhaler) 2 puffs Q6H PRN INH 05/01/17 17:30 05/31/17 17:29 Atorvastatin Calcium (Lipitor Tab) 80 mg HS PO 05/01/17 21:00 05/31/17 20:59 05/07/17 21:14 80 MG Bisacodyl (Dulcolax Supp) 10 mg Q24H PRN OR 05/01/17 17:30 05/31/17 17:29 Carvedilol (Coreg Tab) 25 mg BID PO 05/01/17 21:00 05/31/17 20:59 05/07/17 21:13 25 MG Fentanyl (Duragesic Patch) 12 mcg Q3D@0900 TD 05/02/17 09:00 05/16/17 08:59 05/05/17 08:40 12 MCG Hydroxyzine HCl (Vistaril Tab) 25 mg QID PRN PO 05/01/17 17:30 05/31/17 17:29 Levothyroxine Sodium (Synthroid Tab) 25 mcg DAILYBB PO 05/02/17 06:00 06/01/17 06:59 05/07/17 05:42 25 MCG Loratadine (Claritin Tab) 10 mg DAILY PO 05/02/17 09:00 06/01/17 08:59 05/07/17 08:47 10 MG Magnesium Hydroxide (Milk Of Magnesia Susp) 30 ml DAILY PRN PO 05/01/17 17:30 05/31/17 17:29 05/02/17 15:39 30 ML Multivitamins/ Minerals (Multivitamin W/ Minerals Tab) 1 tab QAM PO 05/02/17 09:00 06/01/17 08:59 05/07/17 08:49 1 TAB Pregabalin (Lyrica Cap) 75 mg BID PO 05/01/17 21:00 05/31/17 20:59 05/07/17 21:11 75 MG Senna/Docusate Sodium (Senokot S Tab) 2 tab HS PO 05/01/17 21:00 05/31/17 20:59 05/07/17 21:14 2 TAB Trazodone HCl (Desyrel Tab) 50 mg HS PO 05/01/17 21:00 05/31/17 20:59 05/07/17 21:15 50 MG Ursodiol (Actigall Cap) 300 mg BID PO 05/01/17 21:00 05/31/17 20:59 05/07/17 21:12 300 MG Venlafaxine HCl (effeXOR EXTENDED REL CAP) 75 mg DAILY PO 05/02/17 09:00 06/01/17 08:59 05/07/17 08:48 75 MG Pantoprazole Sodium (Protonix Tab) 40 mg QAM PO 05/02/17 09:00 06/01/17 08:59 05/07/17 08:49 40 MG Insulin Detemir (Levemir Flexpen/ FlexTouch) 35 units BID SC 05/01/17 21:00 05/31/17 20:59 05/07/17 21:12 35 UNITS Polyethylene (Miralax Powder Packet) 17 gm QAM PO 05/02/17 09:00 06/01/17 08:59 05/07/17 08:50 17 GM Apixaban (Eliquis Tab) 5 mg BID PO 05/01/17 21:00 05/31/17 20:59 05/07/17 21:13 5 MG Miscellaneous (Fentanyl Patch Remove & Waste) 1 ea Q3D@0859 N/A 05/02/17 08:59 06/01/17 08:58 05/05/17 08:45 1 EA Miscellaneous Information (Check Fentanyl Patch Placement) 1 ea QS N/A 05/02/17 00:00 06/01/17 00:00 05/08/17 00:23 1 EA Nitroglycerin (Nitrostat Tab) 0.4 mg UD PRN SL 05/01/17 19:00 05/31/17 18:59 Ergocalciferol (Vitamin D Cap) 50,000 interunit Q7D@0900 PO 05/02/17 09:00 06/01/17 08:59 05/02/17 08:55 50,000 INTERUNIT Ciprofloxacin (Cipro Tab) 500 mg BID PO 05/06/17 21:00 05/15/17 20:59 05/07/17 21:14 500 MG Amoxicillin (Amoxil Cap) 500 mg TID PO 05/06/17 21:00 05/16/17 20:59 05/07/17 21:14 500 MG Last 24 Hours Test 05/07/17 07:36 05/07/17 11:20 05/07/17 16:27 05/07/17 19:46 Bedside Glucose 98 mg/dl 124 mg/dl 141 mg/dl 112 mg/dl Test 05/08/17 04:44 Assessment & Plan BART-was 3.7 in the office, 3.1 on presentation and now in the high 2s. off diuretics with no improvement in kidney function. pt continues to have significant edema in legs. would restart lasix 40mg po bid and follow kidney function as an outpt.
[2017-05-08] MEDS: LEVOTHYROXINE 25 MCG TAB PO SCH (07:11)
[2017-05-08] MEDS: FENTANYL PATCH REMOVE & WASTE SCH (07:35)
[2017-05-08 07:43] VITALS: BP 136/80; PULSE 63; TEMP 36.6; O2SAT 98
[2017-05-08] MEDS: INSULIN ASPART 100 UNITS/ML 3 ML PEN SC SCH ×2 (07:43→12:27)
[2017-05-08] MEDS: PREGABALIN 75 MG CAP PO SCH (07:48)
[2017-05-08] MEDS: PANTOprazole SOD 40 MG TAB PO SCH (07:48)
[2017-05-08] MEDS: POLYETHYLENE (MIRALAX) 17 GM PACK PO SCH (07:48)
[2017-05-08] MEDS: AMOXICILLIN 500 MG CAP PO SCH ×2 (07:48→13:46)
[2017-05-08] MEDS: VENLAFAXINE HCL XR 75 MG CAPXR PO SCH (07:48)
[2017-05-08] MEDS: LORATADINE 10 MG TAB PO SCH (07:48)
[2017-05-08] MEDS: CEROVITE ADV FORMULA TAB PO SCH (07:48)
[2017-05-08] MEDS: APIXABAN 2.5 MG TAB PO SCH (07:49)
[2017-05-08] MEDS: URSODIOL 300 MG CAP PO SCH (07:49)
[2017-05-08] MEDS: CIPROFLOXACIN 500 MG TAB PO SCH (07:49)
[2017-05-08] MEDS: CARVEDILOL 25 MG TAB PO SCH (07:49)
[2017-05-08] MEDS: FENTANYL 12 MCG/HR TDSY TD SCH (07:49)
[2017-05-08] MEDS: INSULIN DETEMIR FLEXPEN/FLEX TOUCH 100 UNITS/ML 3ML SC SCH (07:50)
[2017-05-08 08:07] VITALS: O2SAT 98
[2017-05-08 08:19] LABS: BASO % 0.4 %; BASO ABS # 0.04 K/uL (0-0.2); EOS % 4.4 %; HEMATOCRIT 29.1 % (42-52); IG% 0.3 %; LYMPH % 14.8 %; LYMPH ABS # 1.33 K/uL (1.2-3.4); MEAN CELL VOLUME 82.4 fL (80-100); MEAN CORPUSCULAR HEMOGLOBIN 25.2 pg (25-34); MEAN CORPUSCULAR HGB CONC 30.6 g/dl (32-36); MEAN PLATELET VOLUME 9.2 fL (7.4-10.4); NEUT % 73.1 %; PLATELET COUNT 227 K/uL (130-400); RED BLOOD COUNT 3.53 M/uL (4.7-6.1); WHITE BLOOD COUNT 9.01 K/uL (4.8-10.8)
[2017-05-08 08:44] LABS: COMPLETE YES
[2017-05-08 08:50] LABS: BUN/CREATININE RATIO 25.4 (10-20); CALCIUM 8.8 mg/dl (8.5-10.1); CREATININE 2.9 mg/dl (0.60-1.40); POTASSIUM 4.4 mmol/L (3.5-5.1)
[2017-05-08] MEDS ORDERED: FUROSEMIDE 40 MG TAB PO SCH (09:00)
[2017-05-08 14:33] VITALS: BP 116/65; PULSE 65; TEMP 36.4; O2SAT 96
--- NOTE | 2017-05-08 16:02 | Progress Note ---
Internal Med Progress Note Date of Service: May 08, 2017. Provider Documentation: SUBJECTIVE: patient denies new complaints. 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 Switched to Ciprofloxacin IV and Ampicillin IV from 05/05 to 05/06 after results of wound culture of lower extremity growing VRE besides pseudomonas. Switching to oral regimen of Ciprofloxacin 500 mg BID and oral Amoxicillin 500 mg TID on 05/06 as recommended by infectious disease consult 1. ENTEROBACTER CLOACAE Target Route Dose RX AB Cost M.I.C. IQ ------ ----- ------ -- ------ -------- - ------ TRIMET/SULFA S <=2/38 CEFOTAXIME R >32 CEFTRIAXONE R >32 CEFEPIME I 16 IMIPENEM S <=1 GENTAMICIN S <=4 TOBRAMYCIN S <=4 AMIKACIN S <=16 CIPROFLOXACIN S <=1 LEVOFLOXACIN S <=2 ERTAPENEM I 4 PIP/TAZO R >64 SURFACE WOUND CULTURE Final (continued) 05/05/17-1259 2. PSEUDOMONAS AERUGINOSA Target Route Dose RX AB Cost M.I.C. IQ ------ ----- ------ -- ------ -------- - ------ CEFTAZIDIME S <=1 CEFEPIME S <=4 IMIPENEM S <=1 AZTREONAM S <=4 GENTAMICIN S <=4 TOBRAMYCIN S <=4 AMIKACIN S <=16 CIPROFLOXACIN S <=1 LEVOFLOXACIN S <=2 PIP/TAZO S <=16 3. ENTEROCOCCUS FAECALIS Target Route Dose RX AB Cost M.I.C. IQ ------ ----- ------ -- ------ -------- - ------ AMPICILLIN S <=2 GENT SYNERGY R >500 VANCOMYCIN R * >16 PENICILLIN S 8 DAPTOMYCIN S <=0.5 STREP SYNERGY S <=[address] Kraus, infectious disease doctor, patient has listed multiple drug allergies but since he has been having no known side effects currently while on oral ciprofloxacin and amoxicillin, the patient should continue this regimen for 14 more days which would end at 05/22/17 to treat multiple bacteria of the skin including VRE. CHF history with CKD History of CAD, h/o systolic and diastolic CHF, idiopathic cardiomyopathy per records, echo 04/05/17- EF 55-60%, mild concentric LVH, left atrium severely dilated Presents with weight gain, increasing abdominal girth and LE edema, dyspnea and dizziness on exertion, dry cough, exertional CP Was on torsemide 40 mg daily as outpatient which was discontinued as outpatient for BART as inpatient was initially on diuresis with Lasix 40 mg IV TID with albumin Nephrology consult note 05/08/17: would restart lasix 40mg po bid and follow kidney function as an outpt ATRIAL FIBRILLATION Rate is controlled Continue Coreg Anticoagulated on Eliquis 5 mg BID: dose to be reduced to 2.5 mg BID if at least 2 of the following are present. Age >80 years, Creatinine > 1.5mg/dl, or Wt <60 mg. Although pt 's creatinine is elevated , based on age and wt , 5 mg BID still seems to be the appropriate dose Anemia- will trend CBC, nephrology consult suggest that patient may benefit from IV iron but will hold off on this treatment until cellulitis improves HYPOTHYROIDISM Continue levothyroxine DM TYPE 2 Continue Detemir Novolog sliding scale HISTORY OF DVT/ PE S/p IVC filter On Eliquis VITAMIN D DEFICIENCY continue with vitamin D supplements Diet: Heart Healthy/Low Sodium/Diabetes diet. have placed request to increase patient's meal portions CODE STATUS Full code Disposition: medically discharged expected to return to [facility] as per case management patient should continue Oral ciprofloxacin 500 mg BID and amoxicillin 500 mg TID for 14 more days which would end at 05/22/17 to treat multiple bacteria of the skin including VRE. patient will need follow up appointment to see an outpatient medical doctor in 1 week to reassess and adjust medications as needed Vital Signs: Date Time Temp Pulse Resp B/P (MAP) Pulse Ox O2 Delivery O2 Flow Rate FiO2 05/08/17 14:33 36.4 65 20 116/65 (82) 96 Room Air 05/08/17 08:07 98 Room Air 05/08/17 08:00 Room Air 05/08/17 07:43 36.6 63 12 136/80 (98) 98 Room Air 05/08/17 00:32 Room Air 05/07/17 22:38 36.9 63 20 179/84 (115) 95 Room Air 05/07/17 21:23 Room Air 05/07/17 19:43 95 Room Air Lab Results: Results Past 24 Hours Test 05/07/17 16:27 05/07/17 19:46 05/08/17 07:11 05/08/17 08:02 Range/Units Bedside Glucose 141 112 76 70-99 mg/dl White Blood Count 9.01 4.8-10.8 K/uL Red Blood Count 3.53 4.7-6.1 M/uL Hemoglobin 8.9 14.0-18.0 g/dL Hematocrit 29.1 42-52 % Mean Corpuscular Volume 82.4 80-100 fL Mean Corpuscular Hemoglobin 25.2 25-34 pg Mean Corpuscular Hemoglobin Concent 30.6 32-36 g/dl Platelet Count 227 130-400 K/uL Mean Platelet Volume 9.2 7.4-10.4 fL Neutrophils (%) (Auto) 73.1 % Lymphocytes (%) (Auto) 14.8 % Monocytes (%) (Auto) 7.0 % Eosinophils (%) (Auto) 4.4 % Basophils (%) (Auto) 0.4 % Neutrophils # (Auto) 6.58 1.4-6.5 K/uL Lymphocytes # (Auto) 1.33 1.2-3.4 K/uL Monocytes # (Auto) 0.63 0.11-0.59 K/uL Eosinophils # (Auto) 0.40 0-0.5 K/uL Basophils # (Auto) 0.04 0-0.2 K/uL RDW Standard Deviation 53.6 36.4-46.3 fL RDW Coefficient of Variation 17.9 11.5-14.5 % Immature Granulocyte % (Auto) 0.3 % Immature Granulocyte # (Auto) 0.03 0.00-0.02 K/uL Red Blood Cell Morphology Unremarkable Sodium Level 137 136-145 mmol/L Potassium Level 4.4 3.5-5.1 mmol/L Chloride Level 105 98-107 mmol/L Carbon Dioxide Level 23 21-32 mmol/L Anion Gap 9.0 3-11 mmol/L Blood Urea Nitrogen 74 7-18 mg/dl Creatinine 2.90 0.60-1.40 mg/dl Est Creatinine Clear Calc Drug Dose 56.1 ml/min Estimated GFR () 26.6 Estimated GFR (Non- 23.0 BUN/Creatinine Ratio 25.4 10-20 Random Glucose 76 70-99 mg/dl Calcium Level 8.8 8.5-10.1 mg/dl Test 05/08/17 11:19 Range/Units Bedside Glucose 145 70-99 mg/dl
[2017-05-08] MEDS ORDERED: LPT40 PO (16:13)
[2017-05-08] MEDS ORDERED: AMX500 PO (16:13)
[2017-05-08] MEDS ORDERED: CPR500 PO (16:13)
--- NOTE | 2017-05-08 16:13 | Discharge Instructions ---
Discharge Instructions Date of Service May 08, 2017. Admission Reason for Admission: CHF Discharge Discharge Diagnosis / Problem: biltaral leg cellulituis/edema, Vanc resistant enteroccoci, CKD Discharge Goals Goal(s): Decrease discomfort, Improve function, Increase independence, Improve disease control Activity Recommendations Activity Limitations: resume your previous activity . 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 Switched to Ciprofloxacin IV and Ampicillin IV from 05/05 to 05/06 after results of wound culture of lower extremity growing VRE besides pseudomonas. Switching to oral regimen of Ciprofloxacin 500 mg BID and oral Amoxicillin 500 mg TID on 05/06 as recommended by infectious disease consult 1. ENTEROBACTER CLOACAE Target Route Dose RX AB Cost M.I.C. IQ ------ ----- ------ -- ------ -------- - ------ TRIMET/SULFA S <=2/38 CEFOTAXIME R >32 CEFTRIAXONE R >32 CEFEPIME I 16 IMIPENEM S <=1 GENTAMICIN S <=4 TOBRAMYCIN S <=4 AMIKACIN S <=16 CIPROFLOXACIN S <=1 LEVOFLOXACIN S <=2 ERTAPENEM I 4 PIP/TAZO R >64 SURFACE WOUND CULTURE Final (continued) 05/05/17-1259 2. PSEUDOMONAS AERUGINOSA Target Route Dose RX AB Cost M.I.C. IQ ------ ----- ------ -- ------ -------- - ------ CEFTAZIDIME S <=1 CEFEPIME S <=4 IMIPENEM S <=1 AZTREONAM S <=4 GENTAMICIN S <=4 TOBRAMYCIN S <=4 AMIKACIN S <=16 CIPROFLOXACIN S <=1 LEVOFLOXACIN S <=2 PIP/TAZO S <=16 3. ENTEROCOCCUS FAECALIS Target Route Dose RX AB Cost M.I.C. IQ ------ ----- ------ -- ------ -------- - ------ AMPICILLIN S <=2 GENT SYNERGY R >500 VANCOMYCIN R * >16 PENICILLIN S 8 DAPTOMYCIN S <=0.5 STREP SYNERGY S <=[address] Kraus, infectious disease doctor, patient has listed multiple drug allergies but since he has been having no known side effects currently while on oral ciprofloxacin and amoxicillin, the patient should continue this regimen for 14 more days which would end at 05/22/17 to treat multiple bacteria of the skin including VRE. CHF history with CKD History of CAD, h/o systolic and diastolic CHF, idiopathic cardiomyopathy per records, echo 04/05/17- EF 55-60%, mild concentric LVH, left atrium severely dilated Presents with weight gain, increasing abdominal girth and LE edema, dyspnea and dizziness on exertion, dry cough, exertional CP Was on torsemide 40 mg daily as outpatient which was discontinued as outpatient for BART as inpatient was initially on diuresis with Lasix 40 mg IV TID with albumin Nephrology consult note 05/08/17: would restart lasix 40mg po bid and follow kidney function as an outpt ATRIAL FIBRILLATION Rate is controlled Continue Coreg Anticoagulated on Eliquis 5 mg BID: dose to be reduced to 2.5 mg BID if at least 2 of the following are present. Age >80 years, Creatinine > 1.5mg/dl, or Wt <60 mg. Although pt 's creatinine is elevated , based on age and wt , 5 mg BID still seems to be the appropriate dose Anemia- will trend CBC, nephrology consult suggest that patient may benefit from IV iron but will hold off on this treatment until cellulitis improves HYPOTHYROIDISM Continue levothyroxine DM TYPE 2 Continue Detemir Novolog sliding scale HISTORY OF DVT/ PE S/p IVC filter On Eliquis VITAMIN D DEFICIENCY continue with vitamin D supplements Diet: Heart Healthy/Low Sodium/Diabetes diet. have placed request to increase patient's meal portions CODE STATUS Full code Disposition: medically discharged expected to return to [facility] as per case management patient should continue Oral ciprofloxacin 500 mg BID and amoxicillin 500 mg TID for 14 more days which would end at 05/22/17 to treat multiple bacteria of the skin including VRE. patient will need follow up appointment to see an outpatient medical doctor in 1 week to reassess and adjust medications as needed Current Hospital Diet Patient's current hospital diet: AHA Diet (Heart Healthy), Low Sodium Diet (2gm Na), Diabetes Type 2 Diet Discharge Diet Recommended Diet: AHA Diet (Heart Healthy), Low Sodium Diet (2gm Na), Diabetes Type 2 Diet Pending Studies Studies pending at discharge: no Laboratory Results 05/08/17 08:02 Red Blood Count 3.53, Mean Corpuscular Volume 82.4, Mean Corpuscular Hemoglobin 25.2, Mean Corpuscular Hemoglobin Concent 30.6, Mean Platelet Volume 9.2, Neutrophils (%) (Auto) 73.1, Lymphocytes (%) (Auto) 14.8, Monocytes (%) (Auto) 7.0, Eosinophils (%) (Auto) 4.4, Basophils (%) (Auto) 0.4, Neutrophils # (Auto) 6.58, Lymphocytes # (Auto) 1.33, Monocytes # (Auto) 0.63, Eosinophils # (Auto) 0.40, Basophils # (Auto) 0.04 05/08/17 08:02 Test 05/01/17 13:15 05/02/17 02:58 05/04/17 22:21 05/05/17 06:36 Prothrombin Time 12.3 SECONDS (9.0-12.0) Prothromb Time International Ratio 1.1 (0.9-1.1) Activated Partial Thromboplast Time 32.9 SECONDS (21.0-31.0) Partial Thromboplastin Ratio 1.3 Pro-B-Type Natriuretic Peptide 5883 pg/ml (0-900) Magnesium Level 2.5 mg/dl (1.8-2.4) Total Creatine Kinase 113 U/L (39-308) Creatine Kinase MB 5.1 ng/ml (0.5-3.6) Creatine Kinase MB Ratio 4.5 (0-3.0) Troponin I < 0.015 ng/ml (0-0.045) Vancomycin Level Trough 16.0 mcg/ml (SEE COMMENT) Anisocytosis PRESENT Tear Drop Cells 1+ Test 05/06/17 06:00 05/07/17 05:28 05/08/17 08:02 05/08/17 11:19 Basophilic Stippling 1+ Total Bilirubin 0.4 mg/dl (0.2-1) Aspartate Amino Transf (AST/SGOT) 13 U/L (15-37) Alanine Aminotransferase (ALT/SGPT) 13 U/L (12-78) Alkaline Phosphatase 208 U/L (45-117) Total Protein 8.1 gm/dl (6.4-8.2) Albumin 2.8 gm/dl (3.4-5.0) Globulin 5.3 gm/dl (2.5-4.0) Albumin/Globulin Ratio 0.5 (0.9-2) White Blood Count 9.01 K/uL (4.8-10.8) Red Blood Count 3.53 M/uL (4.7-6.1) Hemoglobin 8.9 g/dL (14.0-18.0) Hematocrit 29.1 % (42-52) Mean Corpuscular Volume 82.4 fL (80-100) Mean Corpuscular Hemoglobin 25.2 pg (25-34) Mean Corpuscular Hemoglobin Concent 30.6 g/dl (32-36) Platelet Count 227 K/uL (130-400) Mean Platelet Volume 9.2 fL (7.4-10.4) Neutrophils (%) (Auto) 73.1 % Lymphocytes (%) (Auto) 14.8 % Monocytes (%) (Auto) 7.0 % Eosinophils (%) (Auto) 4.4 % Basophils (%) (Auto) 0.4 % Neutrophils # (Auto) 6.58 K/uL (1.4-6.5) Lymphocytes # (Auto) 1.33 K/uL (1.2-3.4) Monocytes # (Auto) 0.63 K/uL (0.11-0.59) Eosinophils # (Auto) 0.40 K/uL (0-0.5) Basophils # (Auto) 0.04 K/uL (0-0.2) RDW Standard Deviation 53.6 fL (36.4-46.3) RDW Coefficient of Variation 17.9 % (11.5-14.5) Immature Granulocyte % (Auto) 0.3 % Immature Granulocyte # (Auto) 0.03 K/uL (0.00-0.02) Red Blood Cell Morphology Unremarkable Anion Gap 9.0 mmol/L (3-11) Est Creatinine Clear Calc Drug Dose 56.1 ml/min Estimated GFR () 26.6 Estimated GFR (Non- 23.0 BUN/Creatinine Ratio 25.4 (10-20) Calcium Level 8.8 mg/dl (8.5-10.1) Bedside Glucose 145 mg/dl (70-99) Date/Time Source Procedure Growth Status 05/01/17 00:00 Nasal MRSA DNA Surveillance Screen - Final Specimen Negative for MRSA by DNA Probe Complete 05/04/17 11:30 Ulcer Toe Right 1 Gram Stain - Final Complete 05/04/17 11:30 Wound Culture - Final Enterococcus Faecalis Alcaligenes Species Complete Medical Emergencies . Who to Call and When: Medical Emergencies: If at any time you feel your situation is an emergency, please call 911 immediately. . Non-Emergent Contact Non-Emergency issues call your: Primary Care Provider Call Non-Emergent contact if: you have a fever, your pain is unusual for you, wound has increased drainage, wound has increased redness, wound has increased pain, you have any medication questions . . "Provider Documentation" section prepared by Tonny Mason. . VTE Core Measure Inpt VTE Proph given/why not?: Other Anticoagulation
--- NOTE | 2017-05-08 16:21 | Discharge Summary ---
Discharge Summary Date of Service May 08, 2017. Discharge Summary Admission Date: May 01, 2017 at 16:27 Discharge Date: May 08, 2017 Discharge Disposition: shelter facility ([facility] side) Principal Diagnosis: bilateral lower extremity edema with cellulitis with vancomycin resistant enterococci, BART with CKD Secondary Diagnoses/Problems: Diabetes Medication Reconciliation New Medications: Amoxicillin (Amoxicillin) 500 Mg Cap 500 MG PO TID for 42 Days, #126 CAP Atorvastatin (Atorvastatin Calcium) 40 Mg Tab 80 MG PO HS for 30 Days, #30 TAB Ciprofloxacin (Ciprofloxacin HCl) 500 Mg Tab 500 MG PO BID for 14 Days, #28 TAB Continued Medications: Acetaminophen (Tylenol) 500 Mg Tab 500 MG PO Q4 PRN for Pain or Fever use for mild pain 1-3 or fever >101f max 3gm apap/24hr Acetaminophen/Codeine (Tylenol W/Codeine #3) 300 Mg/30 Mg Tab 1 TAB PO Q6 PRN for Pain for 3 Days, #12 max 3gm apap/24hr Albuterol Hfa (Ventolin Hfa) 200 Puffs/57383 Mcg Aers 2 PUFFS INH Q6H PRN for Wheezing Apixaban (Eliquis) 5 Mg Tab 5 MG PO BID, TAB Bisacodyl (Dulcolax) 10 Mg Sup 1 SUPP MN Q24H PRN for no bm past 2 days, SUP Carvedilol (Coreg) 25 Mg Tab 25 MG PO BID Esomeprazole Magnesium (Nexium) 40 Mg Capcr 40 MG PO DAILY, CAP Fentanyl (Fentanyl) 12 Mcg Tdsy 12 MCG TOP [id number] Glucagon (Glucagon Emergency Kit) 1 Mg Kit Hydroxyzine Hcl (Atarax) 25 Mg Tab 25 MG PO QID PRN for Itching, TAB Insulin Aspart (Novolog) 100 Units/Ml Inj 15 UNITS SQ TIDM Insulin Detemir (Levemir) 100 Units/Ml Inj 35 UNITS SQ BID Levothyroxine Sodium (Synthroid) 25 Mcg Tab 25 MCG PO DAILY, TAB Loratadine (Claritin) 10 Mg Tab 10 MG PO DAILY, TAB Magnesium Hydroxide (Milk of Magnesia) 30 Ml Susp 30 ML PO UD Melatonin (Melatonin) 5 Mg Tab 10 MG PO HS Multiple Vitamins W/ Minerals (Theragran-M) 1 Tab Tab 1 TAB PO QAM Nitroglycerin (Nitrostat) 0.4 Mg Tab 0.4 MG UT UD PRN for Chest Pain Ondansetron Hcl (Zofran) 4 Mg Tab 4-8 MG PO Q8 PRN for Nausea, TAB Polyethylene Glycol 3350 (Miralax) 1 Pow Pow 17 GM PO DAILY, #255 GM Pregabalin (Lyrica) 75 Mg Cap 75 MG PO BID, CAP Sennosides-Docusate Sodium (Sennalax-S) 1 Tab Tab 2 TABS PO HS Trazodone Hcl (Trazodone) 50 Mg Tab 50 MG PO HS, TAB Ursodiol (Ursodiol) 300 Mg Cap 300 MG PO BID Venlafaxine Hcl (Venlafaxine Extended Rel) 75 Mg Cap 75 MG PO DAILY Discontinued Medications: Atorvastatin (Atorvastatin Calcium) 40 Mg Tab 40 MG PO HS Admission Information HPI (per Admitting provider): This is a 56 y/o male with PMH of HTN, 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 with chief complaint of "filling with fluid". Pt follows with jas[facility] cardiology. Pt was recently admitted at [facility] from April 04-2016 for bilateral LE cellulitis treated with vancomycin and aztreonam, discharged on doxycycline 12 day course. Then he was placed on Bactrim from 04/22. He states bilateral LE erythema continues to worsen. He reports sores on bilateral LE for a few weeks with clear drainage. Pt was seen by nephrology Dr. Tucker on 04/26, noted to have ARF (creat was 3.7 from baseline low 2's), at which time Bactrim, torsemide 40 mg daily, lisinopril, and potassium were held. Over the past few days patient reports increasing abdominal girth and increasing bilateral LE edema. He reports associated weight gain (40 lb per patient) over past few days. He is nonambulatory but reports associated SOB and dizziness upon transfers. He reports recent exertional substernal chest pressure when "overdoing it with his exercises." No radiation of pain. First episode was yesterday, then had another episode this morning. Upon rest the discomfort subsided after 20 minutes. He reports similar discomfort in the past with CHF exacerbation. No chest pain or SOB currently. He reports dry cough for past few weeks. He notes chronic intermittent R sided abdominal pain since cholecystectomy 7 months ago. Has ongoing vision difficulty for which he has seen ophthalmology. Reports feeling tired- states he did not sleep overnight due to a loud neighbor. Pt was treated with Lasix 40 mg IV in ER and voided afterward. Denies fever, chills, diaphoresis, rhinorrhea , sore throat, orthopnea, N/V/D, appetite loss, diarrhea, dysuria, frequency, focal weakness/ numbness. Pt reports history of multiple MN's. Denies h/o cardiac catheterization. Reports having stress test last year at [facility] but unsure of results. Physical Exam (per Admitting): General Appearance: WD/WN, + obese, + pertinent finding (mildly somnolent but awakens and answers questions appropriately) Head: normocephalic, atraumatic Eyes: normal inspection, EOMI, sclerae normal ENT: hearing grossly normal, pharynx normal Neck: supple, trachea midline, + pertinent finding (no JVD noted) Respiratory/Chest: lungs clear, no respiratory distress, + decreased breath sounds, + pertinent finding (pacemaker present) Cardiovascular: regular rate, rhythm, no murmur Abdomen/GI: normal bowel sounds, soft, + pertinent finding (obese, protuberant abdomen, mild right mid abdominal tenderness) Extremities/Musculoskelatal: no calf tenderness, + pertinent finding ( bilateral LE edema) Neurologic/Psych: normal mood/affect, oriented x 3, + pertinent finding ( somnolent but awakens and answers questions appropriately) Skin: + pertinent finding (erythema of bilateral lower legs, multiple superficial wounds on RLE- medial calf, dorsum of foot, 1st toenail bed (nail is absent), yellow foul smelling drainage) Hospital Course This is a 56 y/o male with PMH of HTN, 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 Switched to Ciprofloxacin IV and Ampicillin IV from 05/05 to 05/06 after results of wound culture of lower extremity growing VRE besides pseudomonas. Switching to oral regimen of Ciprofloxacin 500 mg BID and oral Amoxicillin 500 mg TID on 05/06 as recommended by infectious disease consult 1. ENTEROBACTER CLOACAE Target Route Dose RX AB Cost M.I.C. IQ ------ ----- ------ -- ------ -------- - ------ TRIMET/SULFA S <=2/38 CEFOTAXIME R >32 CEFTRIAXONE R >32 CEFEPIME I 16 IMIPENEM S <=1 GENTAMICIN S <=4 TOBRAMYCIN S <=4 AMIKACIN S <=16 CIPROFLOXACIN S <=1 LEVOFLOXACIN S <=2 ERTAPENEM I 4 PIP/TAZO R >64 SURFACE WOUND CULTURE Final (continued) 05/05/17-1259 2. PSEUDOMONAS AERUGINOSA Target Route Dose RX AB Cost M.I.C. IQ ------ ----- ------ -- ------ -------- - ------ CEFTAZIDIME S <=1 CEFEPIME S <=4 IMIPENEM S <=1 AZTREONAM S <=4 GENTAMICIN S <=4 TOBRAMYCIN S <=4 AMIKACIN S <=16 CIPROFLOXACIN S <=1 LEVOFLOXACIN S <=2 PIP/TAZO S <=16 3. ENTEROCOCCUS FAECALIS Target Route Dose RX AB Cost M.I.C. IQ ------ ----- ------ -- ------ -------- - ------ AMPICILLIN S <=2 GENT SYNERGY R >500 VANCOMYCIN R * >16 PENICILLIN S 8 DAPTOMYCIN S <=0.5 STREP SYNERGY S <=[address] Kraus, infectious disease doctor, patient has listed multiple drug allergies but since he has been having no known side effects currently while on oral ciprofloxacin and amoxicillin, the patient should continue this regimen for 14 more days which would end at 05/22/17 to treat multiple bacteria of the skin including VRE. CHF history with CKD History of CAD, h/o systolic and diastolic CHF, idiopathic cardiomyopathy per records, echo 04/05/17- EF 55-60%, mild concentric LVH, left atrium severely dilated Presents with weight gain, increasing abdominal girth and LE edema, dyspnea and dizziness on exertion, dry cough, exertional CP Was on torsemide 40 mg daily as outpatient which was discontinued as outpatient for BART as inpatient was initially on diuresis with Lasix 40 mg IV TID with albumin Nephrology consult note 05/08/17: would restart lasix 40mg po bid and follow kidney function as an outpt ATRIAL FIBRILLATION Rate is controlled Continue Coreg Anticoagulated on Eliquis 5 mg BID: dose to be reduced to 2.5 mg BID if at least 2 of the following are present. Age >80 years, Creatinine > 1.5mg/dl, or Wt <60 mg. Although pt 's creatinine is elevated , based on age and wt , 5 mg BID still seems to be the appropriate dose Anemia- will trend CBC, nephrology consult suggest that patient may benefit from IV iron but will hold off on this treatment until cellulitis improves HYPOTHYROIDISM Continue levothyroxine DM TYPE 2 Continue Detemir Novolog sliding scale HISTORY OF DVT/ PE S/p IVC filter On Eliquis VITAMIN D DEFICIENCY continue with vitamin D supplements Diet: Heart Healthy/Low Sodium/Diabetes diet. have placed request to increase patient's meal portions CODE STATUS Full code Disposition: medically discharged expected to return to [facility] as per case management patient should continue Oral ciprofloxacin 500 mg BID and amoxicillin 500 mg TID for 14 more days which would end at 05/22/17 to treat multiple bacteria of the skin including VRE. patient will need follow up appointment to see an outpatient medical doctor in 1 week to reassess and adjust medications as needed Total time spent on discharge = This includes examination of the patient, discharge planning, medication reconciliation, and communication with other providers. Discharge Instructions see above
[2017-05-08 16:28] VITALS: BP 116/65; PULSE 65; TEMP 36.4; O2SAT 96
== END 2017-05-08 16:55 | DRG 570 ==
LOC: EDBD 12:36 → C.EDB 12:37 → C.2E 16:27 → ENRESERV 17:22 → C.MS2W 05-05 18:42
PROVIDERS: ADMIT Hospitalist; ATTEND Hospitalist
PROC: 0HBKXZZ Excision of Right Lower Leg Skin, External Approach (ICD-10-PCS; principal; 2017-05-05)
PROC: 0HBMXZX Excision of Right Foot Skin, External Approach, Diagnostic (ICD-10-PCS; 2017-05-05)
DX: L03.115 Cellulitis of right lower limb (principal); I50.43 Acute on chronic combined systolic (congestive) and diastolic (congestive) heart failure; I13.0 Hypertensive heart and chronic kidney disease with heart failure and stage 1 through stage 4 chronic kidney disease, or unspecified chronic kidney disease; N18.4 Chronic kidney disease, stage 4 (severe); N17.9 Acute kidney failure, unspecified; I48.1 Persistent atrial fibrillation; L97.909 Non-pressure chronic ulcer of unspecified part of unspecified lower leg with unspecified severity; L97.819 Non-pressure chronic ulcer of other part of right lower leg with unspecified severity; I42.9 Cardiomyopathy, unspecified; L03.116 Cellulitis of left lower limb; I25.10 Atherosclerotic heart disease of native coronary artery without angina pectoris; L97.519 Non-pressure chronic ulcer of other part of right foot with unspecified severity; E03.9 Hypothyroidism, unspecified; I87.8 Other specified disorders of veins; B95.2 Enterococcus as the cause of diseases classified elsewhere; E11.622 Type 2 diabetes mellitus with other skin ulcer; E11.22 Type 2 diabetes mellitus with diabetic chronic kidney disease; D64.9 Anemia, unspecified; E55.9 Vitamin D deficiency, unspecified; I89.0 Lymphedema, not elsewhere classified; Z16.21 Resistance to vancomycin; Z87.891 Personal history of nicotine dependence; Z79.01 Long term (current) use of anticoagulants; Z79.4 Long term (current) use of insulin; Z95.810 Presence of automatic (implantable) cardiac defibrillator; Z86.73 Personal history of transient ischemic attack (TIA), and cerebral infarction without residual deficits; Z86.74 Personal history of sudden cardiac arrest; Z82.49 Family history of ischemic heart disease and other diseases of the circulatory system; Z91.11 Patient's noncompliance with dietary regimen; Z86.711 Personal history of pulmonary embolism; Z86.718 Personal history of other venous thrombosis and embolism

== ENCOUNTER 2017-05-16 11:24 | Inpatient (IN) | payer OTHER ==
[~2017-05-16] VITALS: Ht 203.2 cm; Wt 193.3 kg
[~2017-05-16 11:24] MED LIST changes: +AMX500 PO; -ASPCH81X PO; -ATOR-24 PO; +CLR10 PO; +CPR500 PO; -DXY100 PO; +HYDR-3124 PO; +LPT40 PO; -LSN25 PO; -POTA10CA28 PO; +PREG1CAP28 PO; -TORS20TA2 PO
[2017-05-16] MEDS ORDERED: BUMETANIDE SOLN 1 MG/4 ML VIAL IV STA (12:10)
[2017-05-16] MEDS ORDERED: ACET-749 PO (12:15)
[2017-05-16] MEDS ORDERED: DEXT40GE PO (12:16)
[2017-05-16] MEDS ORDERED: ACET650S10 PR (12:18)
[2017-05-16] MEDS ORDERED: EFF75 PO (12:20)
[2017-05-16] MEDS ORDERED: CIPR-255 PO (12:20)
[2017-05-16] MEDS ORDERED: ATOR-24 PO (12:23)
[2017-05-16 12:24] LABS: BASO % 0.7 %; BASO ABS # 0.05 K/uL (0-0.2); HEMATOCRIT 27.6 % (42-52); IG% 0.3 %; MEAN CELL VOLUME 84.7 fL (80-100); MEAN CORPUSCULAR HEMOGLOBIN 25.5 pg (25-34); MEAN CORPUSCULAR HGB CONC 30.1 g/dl (32-36); MEAN PLATELET VOLUME 9.9 fL (7.4-10.4); MONO % 9.7 %; NEUT % 65.3 %; PLATELET COUNT 193 K/uL (130-400); RED BLOOD COUNT 3.26 M/uL (4.7-6.1); WHITE BLOOD COUNT 7.22 K/uL (4.8-10.8)
[2017-05-16] MEDS ORDERED: AMOX500C3 PO (12:25)
[2017-05-16] MEDS ORDERED: SODIENE PR (12:26)
[2017-05-16] MEDS ORDERED: MOML PO (12:27)
[2017-05-16 12:31] LABS: BUN/CREATININE RATIO 19.9 (10-20); CALCIUM 8.4 mg/dl (8.5-10.1); CREATININE 2.7 mg/dl (0.60-1.40); INR 1.2 (0.9-1.1); MAGNESIUM 2.6 mg/dl (1.8-2.4); PARTIAL THROMBOPLASTIN RATIO 1.3; PROTHROMBIN TIME (PATIENT) 12.5 SECONDS (9.0-12.0)
--- NOTE | 2017-05-16 12:35 | EMERGENCY ROOM VISIT NOTE ---
History Report prepared by Jesus: Nahomy Riley Under the Supervision of: Dr. Neville Cat M.D. First contact with patient: 12:05 Chief Complaint: EDEMA TO EXTREMITY Stated Complaint: EDEMA History of Present Illness The patient is a 56 year old male who presents to the Emergency Room with complaints of worsening bilateral lower leg edema that began three months ago. He currently rates his discomfort as a 6/10 in severity. The patient states that he does not ambulate and has not had function of his toes or feet since 1981. He states that he cannot raise his legs due to two previous spinal surgeries. The patient states that he is on diuretics, but states that only IV diuretics help to alleviate his edema. He additionally notes that he is anticoagulated due to a history of DVTs. The patient states that he was just evaluated in the hospital last week for the edema to his legs, noting that they had gotten better, but recently worsened again. He states that he follows with a heart specialist at the [facility] for his lower extremities. The patient states that he has been feeling short of breath which is new for him. He reports normal urination. The patient states that he has been feeling chilled, but denies any known fever. Source of History: patient Onset: three months ago Position: leg (bilateral) Symptom Intensity: 6/10 Quality: other (edema) Timing: worsening Associated Symptoms: + chills, + SOB, No fevers, No urinary symptoms Review of Systems See HPI for pertinent positives & negatives. A total of 10 systems reviewed and were otherwise negative. Past Medical & Surgical Medical Problems: (1) CAD (coronary artery disease) (2) Chronic a-fib (3) Chronic CHF (4) Chronic pain (5) CKD (chronic kidney disease), stage IV (6) Depression (7) Diabetes mellitus, type II (8) Dyslipidemia (9) H/o sacral fracture (10) Heart attack (11) History of pulmonary embolus (PE) (12) History of stroke (13) HTN (hypertension) (14) Hx ventricular arrythmia (15) Idiopathic cardiomyopathy (16) Ischemic cardiomyopathy (17) Lymphedema (18) Obesity, morbid, BMI 40.0-49.9 (19) Obstructive hydrocephalus (20) MERY (obstructive sleep apnea) (21) Panic disorder (22) Pulmonary embolism (23) Right leg DVT (24) Sleep apnea (25) Systolic CHF (26) Venous insufficiency (27) Vision impairment Surgical Problems: (1) H/O eye surgery (2) History of brain shunt (3) History of cholecystectomy (4) S/p pacemaker defibrillator (5) S/P spinal surgery (6) S/p vein filter Family History FH: CAD (coronary artery disease) FATHER ( of [place] late 60's) Social History Smoking Status: Former Smoker Drug Use: none Marital Status: Housing Status: unknown Occupation Status: retired Current/Historical Medications Scheduled Amoxicillin (Amoxil), 500 MG PO TID Apixaban (Eliquis), 5 MG PO BID Atorvastatin (Lipitor), 80 MG PO HS Carvedilol (Coreg), 25 MG PO BID Ciprofloxacin Hcl (Cipro), 500 MG PO BID Esomeprazole Magnesium (Nexium), 40 MG PO DAILY Fentanyl (Fentanyl), 12 MCG TOP [id number] Insulin Aspart (Novolog), 15 UNITS SQ TIDM Insulin Detemir (Levemir), 35 UNITS SQ BID Loratadine (Claritin), 10 MG PO DAILY Magnesium Hydroxide (Milk of Magnesia), 30 ML PO UD Melatonin (Melatonin), 10 MG PO HS Multiple Vitamins W/ Minerals (Theragran-M), 1 TAB PO QAM Polyethylene Glycol 3350 (Miralax), 17 GM PO DAILY Pregabalin (Lyrica), 75 MG PO BID Sennosides-Docusate Sodium (Sennalax-S), 2 TABS PO HS Sodium Phosphate/Biphosphate (Fleet Enema), 1 EA LA DAILY Trazodone Hcl (Trazodone), 50 MG PO HS Ursodiol (Ursodiol), 300 MG PO BID Venlafaxine Hcl (Effexor), 75 MG PO QAM Scheduled PRN Acetaminophen (Tylenol), 500 MG PO Q4 PRN for Pain or Fever Acetaminophen (Tylenol), 650 MG LA Q6H PRN for Pain Acetaminophen/Codeine (Tylenol W/Codeine #3), 1 TAB PO Q6H PRN for Pain Albuterol Hfa (Ventolin Hfa), 2 PUFFS INH Q6H PRN for Wheezing Bisacodyl (Dulcolax), 1 SUPP LA Q24H PRN for no bm past 2 days Dextrose (Diabetic Use) (Insta-Glucose), 1 APPLN PO UD PRN for HYPOGLYCEMIA PROTOCOL Hydroxyzine Hcl (Atarax), 25 MG PO QID PRN for Itching Magnesium Hydroxide (Milk Of Magnesia), 30 ML PO UD PRN for Constipation Nitroglycerin (Nitrostat), 0.4 MG UT UD PRN for Chest Pain Ondansetron Hcl (Zofran), 4-8 MG PO Q8 PRN for Nausea Miscellaneous Medications Glucagon (Glucagon Emergency Kit) Allergies Coded Allergies: Amoxicillin (Verified Allergy, Unknown, increased HR vs sick to stomach, pt unsure abx allergy to?, 05/05/17) Cephalosporins (Verified Allergy, Unknown, increased HR vs sick to stomach , pt unsure abx allergy to?, 05/05/17) Ciprofloxacin (Verified Allergy, Unknown, increased HR vs sick to stomach , pt unsure abx allergy to?, 05/05/17) Clindamycin (Verified Allergy, Unknown, increased HR vs sick to stomach, pt unsure abx allergy to?, 05/05/17) Iodinated Diagnostic Agents (Verified Allergy, Unknown, unknown, 04/04/17) Penicillins (Unverified Allergy, Unknown, increased HR vs sick to stomach , pt unsure abx allergy to?, 05/05/17) Perflutren (Verified Allergy, Unknown, PERFLUTREN LIPID MICROSPHERES, 04/04) Physical Exam Vital Signs Date Time Temp Pulse Resp B/P (MAP) Pulse Ox O2 Delivery O2 Flow Rate FiO2 05/16/17 13:31 149/89 05/16/17 13:24 63 10 97 05/16/17 13:01 173/107 05/16/17 12:54 60 10 93 05/16/17 12:38 60 12 173/107 96 05/16/17 12:37 173/107 05/16/17 12:30 95 Room Air 05/16/17 12:24 60 11 05/16/17 12:15 60 05/16/17 11:54 65 14 05/16/17 11:43 36.6 60 20 129/65 93 Room Air 05/16/17 11:30 129/65 Physical Exam GENERAL: Patient is in no acute distress. HEENT: No acute trauma, normocephalic atraumatic, mucous membranes moist, no nasal congestion, no scleral icterus. NECK: No stridor, no adenopathy, no meningismus, trachea is midline. LUNGS: Clear to auscultation bilaterally, no wheeze, no rhonchi, breath sounds equal. HEART: Without murmurs gallops or rubs, regular rate and rhythm. ABDOMEN: Soft, nontender, bowel sounds positive, no hernias, no peritonitis. Groin: Scrotal edema with some skin breakdown to the left hemiscrotum, mild erythema, no true cellulitis EXTREMITIES: Marked edema to both lower extremities with clear seepage of fluid. Chronic skin change, but no active cellulitis. Edema extends up to the scrotum. NEUROLOGIC: Oriented x 3, no acute motor or sensory deficits, no focal weakness. SKIN: No rash, no jaundice, no diaphoresis. Pale. Medical Decision & Procedures ER Provider Diagnostic Interpretation: Radiology results as stated below per my review and radiologist interpretation: CHEST ONE VIEW PORTABLE HISTORY: 56 years-old Male EVALUATE RESPIRATORY DISTRESS.DYSPNEA acute respiratory distress. COMPARISON: Portable chest radiograph 05/01/2017 TECHNIQUE: Portable upright AP view of the chest FINDINGS: Cardiac silhouette is moderately enlarged, unchanged. There is pulmonary vascular congestion without overt pulmonary edema. Left pectoral pacer/AICD is noted with leads appearing to be intact. There is no pneumothorax, pleural effusion or focal airspace consolidation. Bones about the chest appear grossly intact. IMPRESSION: Cardiomegaly and pulmonary vascular congestion without overt pulmonary edema or focal airspace consolidation. The above report was generated using voice recognition software. It may contain grammatical, syntax or spelling errors. Electronically signed by: Ilia Ricks M.D. 05/16/2017 12:32 PM Dictated Date/Time: 05/16/2017 12:31 PM BILATERAL LOWER EXTREMITY VENOUS DOPPLER HISTORY: Acute bilateral lower extremity edema edema. History of nonocclusive thrombus within the right common femoral and superficial femoral veins. COMPARISON STUDY: Duplex venous study 01/11/2017. FINDINGS: Study is limited secondary to patient obesity and lower extremity edema. RIGHT LOWER EXTREMITY: Nonocclusive thrombus is again seen within the common femoral and superficial femoral veins. The mid to distal superficial femoral vein and calf veins are not well seen. Otherwise, there is normal compressibility, flow, and augmentation within the right lower extremity deep venous system. LEFT LOWER EXTREMITY: There is normal compressibility, flow, and augmentation within the bilateral lower extremity deep venous systems. The calf veins are not well seen within the left lower extremity. IMPRESSION: 1. Nonocclusive thrombus redemonstrated within the right common femoral and superficial femoral veins. 2. No sonographic evidence of left lower extremity deep venous thrombosis. 3. Limited study secondary to patient obesity and soft tissue edema. Electronically signed by: Ilia Ricks M.D. 05/16/2017 2:13 PM Dictated Date/Time: 05/16/2017 2:09 PM Laboratory Results 05/16/17 11:47 Red Blood Count 3.26, Mean Corpuscular Volume 84.7, Mean Corpuscular Hemoglobin 25.5, Mean Corpuscular Hemoglobin Concent 30.1, Mean Platelet Volume 9.9, Neutrophils (%) (Auto) 65.3, Lymphocytes (%) (Auto) 18.0, Monocytes (%) (Auto) 9.7, Eosinophils (%) (Auto) 6.0, Basophils (%) (Auto) 0.7, Neutrophils # (Auto) 4.72, Lymphocytes # (Auto) 1.30, Monocytes # (Auto) 0.70, Eosinophils # (Auto) 0.43, Basophils # (Auto) 0.05 05/16/17 11:47 Test 05/16/17 11:47 05/16/17 13:07 White Blood Count 7.22 K/uL (4.8-10.8) Red Blood Count 3.26 M/uL (4.7-6.1) Hemoglobin 8.3 g/dL (14.0-18.0) Hematocrit 27.6 % (42-52) Mean Corpuscular Volume 84.7 fL (80-100) Mean Corpuscular Hemoglobin 25.5 pg (25-34) Mean Corpuscular Hemoglobin Concent 30.1 g/dl (32-36) Platelet Count 193 K/uL (130-400) Mean Platelet Volume 9.9 fL (7.4-10.4) Neutrophils (%) (Auto) 65.3 % Lymphocytes (%) (Auto) 18.0 % Monocytes (%) (Auto) 9.7 % Eosinophils (%) (Auto) 6.0 % Basophils (%) (Auto) 0.7 % Neutrophils # (Auto) 4.72 K/uL (1.4-6.5) Lymphocytes # (Auto) 1.30 K/uL (1.2-3.4) Monocytes # (Auto) 0.70 K/uL (0.11-0.59) Eosinophils # (Auto) 0.43 K/uL (0-0.5) Basophils # (Auto) 0.05 K/uL (0-0.2) RDW Standard Deviation 57.1 fL (36.4-46.3) RDW Coefficient of Variation 18.5 % (11.5-14.5) Immature Granulocyte % (Auto) 0.3 % Immature Granulocyte # (Auto) 0.02 K/uL (0.00-0.02) Hypersegmented Polys 1+ Hypochromasia PRESENT Anisocytosis PRESENT Prothrombin Time 12.5 SECONDS (9.0-12.0) Prothromb Time International Ratio 1.2 (0.9-1.1) Activated Partial Thromboplast Time 35.0 SECONDS (21.0-31.0) Partial Thromboplastin Ratio 1.3 Anion Gap 8.0 mmol/L (3-11) Est Creatinine Clear Calc Drug Dose 58.3 ml/min Estimated GFR () 29.0 Estimated GFR (Non- 25.0 BUN/Creatinine Ratio 19.9 (10-20) Calcium Level 8.4 mg/dl (8.5-10.1) Magnesium Level 2.6 mg/dl (1.8-2.4) Total Bilirubin 0.4 mg/dl (0.2-1) Aspartate Amino Transf (AST/SGOT) 14 U/L (15-37) Alanine Aminotransferase (ALT/SGPT) 12 U/L (12-78) Alkaline Phosphatase 209 U/L (45-117) Troponin I 0.027 ng/ml (0-0.045) Pro-B-Type Natriuretic Peptide 4243 pg/ml (0-900) Total Protein 8.2 gm/dl (6.4-8.2) Albumin 2.9 gm/dl (3.4-5.0) Globulin 5.3 gm/dl (2.5-4.0) Albumin/Globulin Ratio 0.5 (0.9-2) Arterial Blood pH 7.30 (7.35-7.45) Arterial Blood Partial Pressure CO2 49 mmHg (35-46) Arterial Blood Partial Pressure O2 50 mm/Hg (80-95) Arterial Blood HCO3 24 mmol/L (19-24) Arterial Blood Oxygen Saturation 78.7 % (90-95) Arterial Blood Base Excess -2.7 mEq/L (-9-1.8) Arterial Blood Gas Delivery ROOM AIR Mk Test POS (POS) Laboratory results reviewed by me. Medications Administered Medications (Trade) Dose Ordered Sig/Miguel Route Start Time Stop Time Status Last Admin Dose Admin Bumetanide (Bumex IV) 1 mg NOW STAT IV 05/16/17 12:10 05/16/17 12:14 DC 05/16/17 12:33 1 MG ECG Indication: SOB/dyspnea Rate (beats per minute): 62 Rhythm: other (ventricular pacemaker) Findings: no acute ischemic change, no ectopy ED Course 1205: The patient was evaluated in room A12B. A complete history and physical exam was performed. 1210: Ordered Bumex IV 1 mg IV. 1422: I reevaluated the patient and he is resting. I discussed the exam findings with him and I discussed the treatment plan. He verbalized complete understanding and agreement. He will be evaluated for further treatment. 1432: I discussed the patients case with Mauricio Allen. He is going to evaluate the patient for further treatment. Medical Decision The patient is a 56 year old male who presents to the ED with complaints of edema to his bilateral lower extremities. Differential diagnoses considered include DVT, renal failure, fluid overload, electrolyte imbalance, CHF, anemia, cellulitis. There is no leukocytosis. The patient is anemic but he has a history of the same. Renal panel testing shows renal failure which appears chronic. No hepatitis. A mild coagulopathy was noted consistent with his anticoagulation. ABG demonstrates a venous sample. No concerning acidosis, no concerning CO2 retention. Bilateral lower extremity ultrasound does demonstrate a chronic DVT , no acute or worsening DVT found. BNP is quite elevated consistent with fluid overload. Chest film does show some mild CHF, no pneumonia. The patient was given IV Bumex, he still has not diuresed. The patient is fluid overloaded, his legs are now weeping fluid. He has mild fluid retention to his lungs and does feel somewhat short of breath. He is still on antibiotics from the diagnosis of cellulitis with his last hospital stay. Given the worsening edema and fluid overload, admission/observation was felt warranted. I spoke to the patient and case management. The on-call hospitalist was consulted. Medication Reconcilliation Current Medication List: was personally reviewed by me Blood Pressure Screening Patient's blood pressure: Elevated blood pressure Blood pressure disposition: Elevated BP felt to be situational, Did not require urgent referral Consults Time Called: 1422 Consulting Physician: Mauricio Allen Returned Call: 1432 I discussed the patients case with Mauricio Allen. He is going to evaluate the patient for further treatment. Impression Primary Impression: Fluid overload Additional Impressions: Pedal edema Shortness of breath DVT (deep venous thrombosis) Scribe Attestation The scribe's documentation has been prepared under my direction and personally reviewed by me in its entirety. I confirm that the note above accurately reflects all work, treatment, procedures, and medical decision making performed by me. Departure Information Dispostion Being Evaluated By Hospitalist Referrals Roberta Xiao (PCP) Problem Qualifiers
[2017-05-16 12:36] LABS: ALB/GLOB RATIO 0.5 (0.9-2)
[2017-05-16 12:55] LABS: ANISOCYTOSIS PRESENT; COMPLETE YES; HYPERSEGMENTED POLYS 1+; HYPOCHROMIA PRESENT
[2017-05-16 13:32] LABS: ARTERIAL BLOOD GAS BASE EXCESS -2.7 mEq/L (-9-1.8); ARTERIAL BLOOD GAS HCO3 24 mmol/L (19-24); ARTERIAL BLOOD GAS PO2 50 mm/Hg (80-95)
[2017-05-16 13:40] LABS: ALLEN TEST POS (POS); O2 ADMINISTRATION ROOM AIR
[2017-05-16 13:53] LABS: ARTERIAL BLD GAS O2 SATURATION 78.7 % (90-95)
--- NOTE | 2017-05-16 14:14 | DIAGNOSTIC IMAGING REPORT ---
BILATERAL LOWER EXTREMITY VENOUS DOPPLER HISTORY: Acute bilateral lower extremity edema edema. History of nonocclusive thrombus within the right common femoral and superficial femoral veins. COMPARISON STUDY: Duplex venous study 01/11/2017. FINDINGS: Study is limited secondary to patient obesity and lower extremity edema. RIGHT LOWER EXTREMITY: Nonocclusive thrombus is again seen within the common femoral and superficial femoral veins. The mid to distal superficial femoral vein and calf veins are not well seen. Otherwise, there is normal compressibility, flow, and augmentation within the right lower extremity deep venous system. LEFT LOWER EXTREMITY: There is normal compressibility, flow, and augmentation within the bilateral lower extremity deep venous systems. The calf veins are not well seen within the left lower extremity. IMPRESSION: 1. Nonocclusive thrombus redemonstrated within the right common femoral and superficial femoral veins. 2. No sonographic evidence of left lower extremity deep venous thrombosis. 3. Limited study secondary to patient obesity and soft tissue edema. Electronically signed by: Ilia Ricks M.D. 05/16/2017 2:13 PM Dictated Date/Time: 05/16/2017 2:09 PM
[2017-05-16] MEDS ORDERED: ACETAMINOPHEN/CODEINE 300/30MG TAB PO ONE (15:15)
[2017-05-16 17:15] VITALS: BP 140/81; PULSE 92; TEMP 36.5; BMI 47.9
[2017-05-16] MEDS ORDERED: ONDANSETRON INJ 2 MG/ML 2 ML VIAL IV PRN (17:30)
[2017-05-16] MEDS ORDERED: GLUCOSE 10 TABS/TUBE PO PRN (17:30)
[2017-05-16] MEDS ORDERED: GLUCAGON FOR INJ 1 MG VIAL SQ PRN (17:30)
[2017-05-16] MEDS ORDERED: GLUCOSE 40% GEL 15 GM TUBE PO PRN (17:30)
[2017-05-16] MEDS ORDERED: DEXTROSE 50% 50 ML SYR IV PRN (17:30)
--- NOTE | 2017-05-16 18:01 | History and Physical ---
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 This is the patient's third admission since March for worsening BLE edema. Was admitted from Apr 04- for BLE cellulitis, treated with vanc and aztreonam. Was admitted again from Apr 22- for fluid overload, BLE cellulitis with wound cultures growing VRE. Was treated with cipro and ampicillin in-patient and then discharged to [facility] on PO Cipro and amoxicillin. Patient states that BLE improved during his past admission but once he returned to [facility], the facility did not have all of his medications. States that he went without his diuretic for a few days and during this time, noticed his legs "filling up with fluid again". Endorses sharp, aching 6/10 pain in lower legs (R>L) with swelling extending to scrotal area. Endorses a 10 pound weight gain since last admission. Receives wound care at [facility]. States that wounds have improved in the past few weeks. Per med rec and discussion with [facility], it seems that patient has not been on PO Lasix since discharged from [facility] on 05/01. Endorses exertional dyspnea when transferring from bed to wheelchair. Also endorses exertional chest pain that is centrally located, throbbing. States that he has experienced this time of pain intermittently for years. Rates CP a 1 /10. Endorses a dull abdominal pain and "feeling of fullness". Is urinating and having bowel movements normally. Denies fever, chills, diaphoresis, palpitations , orthopnea, PND, nausea, vomiting, focal LE weakness. + Chronic numbness in bilateral LE from knees down from a previous spinal surgery. + Chronic decreased visual acuity. Past Medical/Surgical History Medical Problems: (1) CAD (coronary artery disease) Status: Chronic (2) Chronic a-fib Status: Chronic (3) Chronic CHF Permanent Comment: combined systolic and diastolic Status: Chronic (4) Chronic pain Status: Chronic (5) CKD (chronic kidney disease), stage IV Status: Chronic (6) Depression Status: Chronic (7) Diabetes mellitus, type II Status: Chronic (8) Dyslipidemia Status: Chronic (9) H/o sacral fracture Status: Chronic (10) Heart attack Status: Resolved (11) History of pulmonary embolus (PE) Status: Chronic (12) History of stroke Status: Chronic (13) HTN (hypertension) Status: Chronic (14) Idiopathic cardiomyopathy Status: Chronic (15) Ischemic cardiomyopathy Status: Resolved (16) Lymphedema Status: Chronic (17) Obesity, morbid, BMI 40.0-49.9 Status: Chronic (18) Obstructive hydrocephalus Status: Chronic (19) Pulmonary embolism Status: Resolved (20) Right leg DVT Status: Chronic (21) Sleep apnea Permanent Comment: not on CPAP Status: Chronic (22) Venous insufficiency Status: Chronic Surgical Problems: (1) H/O eye surgery Status: Chronic (2) History of brain shunt Status: Chronic (3) History of cholecystectomy Permanent Comment: 08/23/16 Status: Resolved (4) S/p pacemaker defibrillator Status: Chronic (5) S/P spinal surgery Status: Chronic (6) S/p vein filter Status: Chronic Family History FH: CAD (coronary artery disease) FATHER ( of [place] late 60's) Social History Smoking Status: Never Smoker Drug Use: none Marital Status: Housing status: other Occupational Status: retired Immunizations History of Influenza Vaccine: Unknown Multi-Drug Resistant 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 Allergies Coded Allergies: Cephalosporins (Verified Allergy, Unknown, increased HR vs sick to stomach , pt unsure abx allergy to?, 05/05/17) Clindamycin (Verified Allergy, Unknown, increased HR vs sick to stomach, pt unsure abx allergy to?, 05/05/17) Iodinated Diagnostic Agents (Verified Allergy, Unknown, unknown, 04/04/17) Penicillins (Unverified Allergy, Unknown, increased HR vs sick to stomach , pt unsure abx allergy to?, 05/05/17) Perflutren (Verified Allergy, Unknown, PERFLUTREN LIPID MICROSPHERES, 04/04) Home Medications Scheduled Amoxicillin (Amoxil), 500 MG PO TID Apixaban (Eliquis), 5 MG PO BID Atorvastatin (Lipitor), 80 MG PO HS Carvedilol (Coreg), 25 MG PO BID Ciprofloxacin Hcl (Cipro), 500 MG PO BID Esomeprazole Magnesium (Nexium), 40 MG PO DAILY Fentanyl (Fentanyl), 12 MCG TOP [id number] Insulin Aspart (Novolog), 15 UNITS SQ TIDM Insulin Detemir (Levemir), 35 UNITS SQ BID Loratadine (Claritin), 10 MG PO DAILY Melatonin (Melatonin), 10 MG PO HS Multiple Vitamins W/ Minerals (Theragran-M), 1 TAB PO QAM Polyethylene Glycol 3350 (Miralax), 17 GM PO DAILY Pregabalin (Lyrica), 75 MG PO BID Sennosides-Docusate Sodium (Sennalax-S), 2 TABS PO HS Trazodone Hcl (Trazodone), 50 MG PO HS Ursodiol (Ursodiol), 300 MG PO BID Venlafaxine Hcl (Effexor), 75 MG PO QAM Scheduled PRN Acetaminophen (Tylenol), 500 MG PO Q4 PRN for Pain or Fever Acetaminophen (Tylenol), 650 MG TN Q6H PRN for Pain Acetaminophen/Codeine (Tylenol W/Codeine #3), 1 TAB PO Q6H PRN for Pain Albuterol Hfa (Ventolin Hfa), 2 PUFFS INH Q6H PRN for Wheezing Bisacodyl (Dulcolax), 1 SUPP TN Q24H PRN for no bm past 2 days Dextrose (Diabetic Use) (Insta-Glucose), 1 APPLN PO UD PRN for HYPOGLYCEMIA PROTOCOL Hydroxyzine Hcl (Atarax), 25 MG PO QID PRN for Itching Magnesium Hydroxide (Milk Of Magnesia), 30 ML PO UD PRN for Constipation Nitroglycerin (Nitrostat), 0.4 MG UT UD PRN for Chest Pain Ondansetron Hcl (Zofran), 4-8 MG PO Q8 PRN for Nausea Miscellaneous Medications Glucagon (Glucagon Emergency Kit) Review of Systems Ten systems reviewed and negative except as noted in the HPI. Physical Exam Vital Signs Date Time Temp Pulse Resp B/P (MAP) Pulse Ox O2 Delivery O2 Flow Rate FiO2 05/16/17 17:15 Room Air 05/16/17 16:32 64 18 122/75 95 Room Air 05/16/17 16:23 65 05/16/17 15:25 66 18 157/96 94 Room Air 05/16/17 13:31 149/89 05/16/17 13:24 63 10 97 05/16/17 13:01 173/107 05/16/17 12:54 60 10 93 05/16/17 12:38 60 12 173/107 96 05/16/17 12:37 173/107 05/16/17 12:30 95 Room Air 05/16/17 12:24 60 11 05/16/17 12:15 60 05/16/17 11:54 65 14 05/16/17 11:43 36.6 60 20 129/65 93 Room Air 05/16/17 11:30 129/65 General Appearance: + mild distress (Patient somnolent on exam but answered all questions appropriately.) Head: normocephalic, atraumatic Eyes: normal inspection, PERRL, EOMI, sclerae normal ENT: hearing grossly normal, pharynx normal Neck: supple, no adenopathy, trachea midline, + JVD Respiratory/Chest: chest non-tender, lungs clear, no respiratory distress, no accessory muscle use, + decreased breath sounds Cardiovascular: regular rate, rhythm, no murmur, + pertinent finding ( Diminished but palpable peripheral pulses) Abdomen/GI: normal bowel sounds, soft, + tenderness (Diffuse TTP on exam. ) Back: normal inspection, no CVA tenderness Extremities/Musculoskelatal: no calf tenderness, + swelling (Significant LE swelling, R>L, extending up to scrotal area. Tender to touch. 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 ), alert, normal mood/affect, oriented x 3 Skin: normal color, + pertinent finding (Skin hypertrophied any discolored from venous stasis. Presence of 3x3cm well-circumscribed, ulcerated lesion on L anterior tamayo with clear drainage. 1x1cm scabbed lesion on L hemiscrotum. Presence of healing wounds on bilateral posterior calf, R lateral foot. Toenails yellowed; 1st R toenail bed without nail. Darkened spots visualized on all toes distally. ) Diagnostics Laboratory Results Results Past 24 Hours Test 05/16/17 11:47 05/16/17 13:07 Range/Units White Blood Count 7.22 4.8-10.8 K/uL Red Blood Count 3.26 4.7-6.1 M/uL Hemoglobin 8.3 14.0-18.0 g/dL Hematocrit 27.6 42-52 % Mean Corpuscular Volume 84.7 80-100 fL Mean Corpuscular Hemoglobin 25.5 25-34 pg Mean Corpuscular Hemoglobin Concent 30.1 32-36 g/dl Platelet Count 193 130-400 K/uL Mean Platelet Volume 9.9 7.4-10.4 fL Neutrophils (%) (Auto) 65.3 % Lymphocytes (%) (Auto) 18.0 % Monocytes (%) (Auto) 9.7 % Eosinophils (%) (Auto) 6.0 % Basophils (%) (Auto) 0.7 % Neutrophils # (Auto) 4.72 1.4-6.5 K/uL Lymphocytes # (Auto) 1.30 1.2-3.4 K/uL Monocytes # (Auto) 0.70 0.11-0.59 K/uL Eosinophils # (Auto) 0.43 0-0.5 K/uL Basophils # (Auto) 0.05 0-0.2 K/uL RDW Standard Deviation 57.1 36.4-46.3 fL RDW Coefficient of Variation 18.5 11.5-14.5 % Immature Granulocyte % (Auto) 0.3 % Immature Granulocyte # (Auto) 0.02 0.00-0.02 K/uL Hypersegmented Polys 1+ Hypochromasia PRESENT Anisocytosis PRESENT Prothrombin Time 12.5 9.0-12.0 SECONDS Prothromb Time International Ratio 1.2 0.9-1.1 Activated Partial Thromboplast Time 35.0 21.0-31.0 SECONDS Partial Thromboplastin Ratio 1.3 Sodium Level 141 136-145 mmol/L Potassium Level 5.0 3.5-5.1 mmol/L Chloride Level 112 98-107 mmol/L Carbon Dioxide Level 21 21-32 mmol/L Anion Gap 8.0 3-11 mmol/L Blood Urea Nitrogen 54 7-18 mg/dl Creatinine 2.70 0.60-1.40 mg/dl Est Creatinine Clear Calc Drug Dose 58.3 ml/min Estimated GFR () 29.0 Estimated GFR (Non- 25.0 BUN/Creatinine Ratio 19.9 10-20 Random Glucose 119 70-99 mg/dl Calcium Level 8.4 8.5-10.1 mg/dl Magnesium Level 2.6 1.8-2.4 mg/dl Total Bilirubin 0.4 0.2-1 mg/dl Aspartate Amino Transf (AST/SGOT) 14 15-37 U/L Alanine Aminotransferase (ALT/SGPT) 12 12-78 U/L Alkaline Phosphatase 209 45-117 U/L Troponin I 0.027 0-0.045 ng/ml Pro-B-Type Natriuretic Peptide 4243 0-900 pg/ml Total Protein 8.2 6.4-8.2 gm/dl Albumin 2.9 3.4-5.0 gm/dl Globulin 5.3 2.5-4.0 gm/dl Albumin/Globulin Ratio 0.5 0.9-2 Arterial Blood pH 7.30 7.35-7.45 Arterial Blood Partial Pressure CO2 49 35-46 mmHg Arterial Blood Partial Pressure O2 50 80-95 mm/Hg Arterial Blood HCO3 24 19-24 mmol/L Arterial Blood Oxygen Saturation 78.7 90-95 % Arterial Blood Base Excess -2.7 -9-1.8 mEq/L Arterial Blood Gas Delivery ROOM AIR Mk Test POS POS Diagnostic Radiology Venous doppler: IMPRESSION: 1. Nonocclusive thrombus redemonstrated within the right common femoral and superficial femoral veins. 2. No sonographic evidence of left lower extremity deep venous thrombosis. 3. Limited study secondary to patient obesity and soft tissue edema. CXR: IMPRESSION: Cardiomegaly and pulmonary vascular congestion without overt pulmonary edema or focal airspace consolidation. EKG Ventricular-paced rhythm at 62 bpm. 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 Bilateral lower extremity swelling: -Multifactorial with h/o lymphedema, CHF, CKD, dietary non-compliance -Most likely due to a few weeks without diuretic at halfway -Increased diuretics while closely monitoring Cr 2/2 CKD -Consulted cardio, nephrology, wound care Acute on chronic systolic/diastolic HF: -Patient with recent weight gain, BLE edema, dyspnea, exertional CP -Per discussion with [facility], has not received diuretics since discharged on 05/01 -CXR with vascular congestion but no overt pulm edema -Elevated BNP of 4,243 -Received 1mg of Bumex in ER -Initiated IV Lasix 40mg BID -Mar 2017 echo with EF of 55-60%, mild concentric LVH, left atrium severely dilated -Na restricted diet, daily weights, I&Os -Appreciate input from cardio, nephro BLE cellulitis: Resolving -Multiple admissions for cellulitis in the past few months -Was found to grow VRE on last admission. Per ID, was started on Cipro, ampicillin -Was discharged on Cipro, amoxicillin and cellulitis has improved -Afebrile, no leukocytosis -Continue PO regimen -Consulted ID for further recs Exertional chest pain: -Endorses h/o similar centrally located CP on exertion -EKG without changes, initial troponin negative -Will trend troponin, continue aspirin -Cardio for further recs DM II: -Hgb a1c of 7.6 in December 2016 -Ordered hgb a1c -Continued patients home dose of Lantus. SSI. -BG checks AC HS -Diabetic education Chronic A Fib: -Continue home dose of Eliquis -Coreg for rate control CKD Stage IV: -Baseline GFR ~30, Cr 2.4 -BART on last admission with Cr of 3.7 -GFR of 25 today, Cr of 2.7 -Monitor for worsening renal function while on IV diuretic -Consult nephrology H/o R DVT/PE: -S/p IVC filter -Cont Eliquis HTN: -Stable -Continue home meds Hypothyroidism: -Continue levothyroxine DVT Ppx: Eliquis Code status: FULL PCP: Damián Dispo: SW consulted to help with discharge placement back to [facility] Level of Care Telemetry Advanced Directives Existing Living Will: No Existing Power of Algorithm Design Engineer: No Resuscitation Status FULL RESUSCITATION VTE Prophylaxis VTE Risk Assessment Done? Y/N: Yes Risk Level: Moderate Given or contraindicated: Other Anticoagulation (apixaban) Note ATTENDING ADDENDUM Record reviewed. Patient interviewed and examined in ED. Care coordinated with Cindy Olmstead PA-C. Please refer to her documentation for patient's history. Briefly, 56 YO male with history of ischemic heart disease, CHF, sleep apnea, pulmonary embolism, recent cellulitis of legs. Presented to ED with worsening lower extremity edema and dyspnea EXAM: General- no acute distress VS- as noted HEENT- anicteric Neck- + JVD Lungs- basilar rales Heart- distant heart sounds, no murmur or gallop appreciated Abdomen- obese, soft, nontender Extremities- 4 + pretibial and pedal edema; difficult to palpate pedal pulses; ischemic ulcers tips of left toes and right great toe Skin- chronic venous stasis ulcers lower extremities; 4 cm left pretibial venous stasis ulcer; 6 cm superficial ulcer right posterior calf Neuro- alert DATA: Lab studies as noted. CXR- cardiomegaly + CHF. Venous duplex - chronic nonocclusive thrombus right common femoral and superficial femoral veins. EKG performed at 11:33 reviewed and demonstrated ventricular paced rhythm at 60 / minute. . ASSESSMENT AND PLAN: CHF noted on chest x-ray. Worsening dependent edema. Diuretics had been held due to rising creatinine. Echo 04/05/17 showed LVH, LVEF 55-60%; RV was not well-visualized. Acute on chronic left ventricular diastolic heart failure + probable right- sided heart failure. CKD, volume sensitive. IV diuretics. No need to repeat echo at this time. Consult Cardiology and Nephrology. Chronic DVT RLE, history of pulmonary embolism. Continue anticoagulation with apixaban. Recent cellulitis of lower extremities, improved. Continue antibiotics. Venous stasis ulcers lower extremities. Consult Wound Care Nursing. Please refer to SILVIA Olmstead's documentation for discussion of other issues. Donovan Trevino MD
[2017-05-16] MEDS ORDERED: INFLUENZA VIRUS QUAD VACCINE 0.5 ML SYR IM. ONE (18:45)
[2017-05-16] MEDS ORDERED: INFLUENZA ADMINISTRATION CHARGE ONE (18:45)
[2017-05-16] MEDS ORDERED: BISACODYL 10 MG SUPP PR PRN (19:15)
[2017-05-16] MEDS ORDERED: ONDANSETRON 4 MG TAB PO PRN (19:15)
[2017-05-16] MEDS ORDERED: NITROGLYCERIN 0.4 MG SL PER TAB CHARGE UT PRN (19:15)
[2017-05-16] MEDS ORDERED: MAGNESIUM HYDROXIDE SUSP 30 ML UDC PO PRN (19:15)
[2017-05-16] MEDS ORDERED: ALBUTEROL HFA 8 GM INHALER INH PRN (19:15)
[2017-05-16] MEDS ORDERED: FUROSEMIDE INJ 40 MG in SYRINGE 0 ML IV SCH (21:00)
[2017-05-16] MEDS ORDERED: INSULIN GLARGINE SOLOSTAR 100 UNITS/ML 3 ML PEN SC SCH (21:00)
[2017-05-16] MEDS ORDERED: HEPARIN SOD 5000 UNIT/0.5 ML CARP SQ SCH (21:00)
[2017-05-16] MEDS ORDERED: NON-FORMULARY MEDICATION (Apixaban (Eliquis) 5 MG) PO SCH (21:00)
[2017-05-16] MEDS: INSULIN ASPART 100 UNITS/ML 3 ML PEN SC SCH (21:01)
[2017-05-16] MEDS: INSULIN GLARGINE SOLOSTAR 100 UNITS/ML 3 ML PEN SC SCH (21:02)
[2017-05-16] MEDS: ATORVASTATIN 40 MG TAB PO SCH (21:24)
[2017-05-16] MEDS: AMOXICILLIN 500 MG CAP PO SCH (21:24)
[2017-05-16] MEDS: PREGABALIN 75 MG CAP PO SCH (21:24)
[2017-05-16] MEDS: APIXABAN 2.5 MG TAB PO SCH (21:27)
[2017-05-16] MEDS: CIPROFLOXACIN 500 MG TAB PO SCH (21:27)
[2017-05-16] MEDS: TRAZODONE HCL 50 MG TAB PO SCH (21:27)
[2017-05-16] MEDS: CARVEDILOL 25 MG TAB PO SCH (21:27)
[2017-05-16] MEDS: URSODIOL 300 MG CAP PO SCH (21:27)
[2017-05-16] MEDS: DOCUSATE SODIUM/SENNA 50/8.6MG TAB PO SCH (21:27)
[2017-05-16] MEDS: ACETAMINOPHEN/CODEINE 300/30MG TAB PO PRN (22:08)
[2017-05-17] VITALS (7 sets, daily range): BP systolic 110–162; BP diastolic 76–97; PULSE 60–89; TEMP 36.3–36.8; O2SAT 92–95
[2017-05-17] MEDS: CHECK FENTANYL PATCH PLACEMENT SCH ×3 (00:32→16:00)
[2017-05-17 01:42] LABS: URINE APPEARANCE CLEAR (CLEAR); URINE BILIRUBIN NEG (NEG); URINE COLOR YELLOW; URINE EPITHELIAL CELL AUTO 0-5 /lpf (0-5); URINE NITRITE NEG (NEG); UROBILINOGEN NEG (NEG); ZZUR CULT IF INDIC CLEAN CATCH NO
[2017-05-17 01:48] LABS: MANUAL MICROSCOPIC REQUIRED? NO; REVIEW REQ? NO
[2017-05-17 06:04] LABS: HEMATOCRIT 26.4 % (42-52); MEAN CELL VOLUME 83.3 fL (80-100); MEAN CORPUSCULAR HEMOGLOBIN 24.6 pg (25-34); MEAN CORPUSCULAR HGB CONC 29.5 g/dl (32-36); MEAN PLATELET VOLUME 9.9 fL (7.4-10.4); PLATELET COUNT 166 K/uL (130-400); RED BLOOD COUNT 3.17 M/uL (4.7-6.1); WHITE BLOOD COUNT 4.88 K/uL (4.8-10.8)
[2017-05-17 06:49] LABS: BUN/CREATININE RATIO 22.4 (10-20); CALCIUM 7.8 mg/dl (8.5-10.1); CREATININE 2.5 mg/dl (0.60-1.40); POTASSIUM 4.6 mmol/L (3.5-5.1)
[2017-05-17 06:51] LABS: ALB/GLOB RATIO 0.5 (0.9-2)
[2017-05-17] MEDS: INSULIN ASPART 100 UNITS/ML 3 ML PEN SC SCH ×4 (07:00→21:00)
--- NOTE | 2017-05-17 07:49 | NEPHROLOGY CONSULTATION ---
DATE OF CONSULTATION: 05/17/2017 ATTENDING OF RECORD: Dr. Mason. REASON FOR CONSULTATION: CKD stage IV, and worsening lower extremity edema. HISTORY OF PRESENT ILLNESS: This is a 56-year-old male who was recently in the hospital in April for which I helped take care of who has had diabetes since 1981 with very poor vision secondary to retinal tears. Patient with hypertension since 1995. The patient claims he has had 9 heart attacks and 6 strokes with some residual weakness in the right arm. 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 Kraus in [place]. 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 The patient during the last admission diuresed nicely with albumin and Lasix and wounds on legs started to heal up well. The patient was discharged, but as an outpatient edema started to worsen again. The patient is back with worsening lower extremity edema, significant enough to be causing pain. PAST MEDICAL HISTORY: Heart disease, AFib, diastolic heart failure, CKD stage IV, baseline creatinine in mid 2s, type 2 diabetes, hypertension, hyperlipidemia, chronic DVT, history of strokes with residual right-sided weakness, chronic lymphedema with significant salt intake, obstructive sleep apnea. 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 FAMILY HISTORY: Significant for heart disease. SOCIAL HISTORY: No smoking. No drugs. No alcohol. CURRENT MEDICATIONS: Duragesic patch 12 mcg q. 72 hours, Claritin 10 mg a day, Effexor 75 mg daily, Protonix 40 mg daily, sliding scale insulin, amoxicillin 500 mg p.o. t.i.d., Lipitor 80 mg at night, Coreg 25 b.i.d., Cipro 500 b.i.d., Lyrica 75 b.i.d., senna 2 tabs at night, trazodone 50 mg at night, Ursodiol 300 mg p.o. b.i.d., Lasix 40 mg IV b.i.d., Lantus 35 units subQ q. 12, Eliquis 5 mg p.o. b.i.d. REVIEW OF SYSTEMS: Positive poor vision. Positive lower extremity edema pain with chronic wounds. No diarrhea or constipation. No nausea or vomiting. No dysuria, hematuria. No chest pain, no shortness of breath, no headaches. No itching. All other review of systems otherwise negative. PHYSICAL EXAMINATION: VITAL SIGNS: Temperature 36.6, pulse 64, respiratory rate 21, blood pressure 151/86, satting 92% on room air. Ins 300, outs a liter. GENERAL: Awake, alert, oriented x3, relatively large man. EYES: No scleral icterus. ENT: Moist mucous membranes. NECK: Supple. PULMONARY: Clear to auscultation. CARDIAC: Regular rate and rhythm. ABDOMEN: Bowel sounds positive, soft, nontender, nondistended. EXTREMITIES: +4 edema with open wounds. NEUROLOGIC: Residual right arm weakness, which is mild. DERM: Chronic lower extremity wounds, which patient feels are improving. LABORATORIES: White count 4, H&H 7.8 and 26.4, platelet count is 166. Sodium level 143, potassium 4.6, chloride 113, bicarbonate is 23, BUN is 56, creatinine is 2.5, glucose 74. Hemoglobin A1c 7.5. Calcium 7.8, alkaline phosphatase mildly elevated at 187, albumin is 2.5 with 2+ protein. VENOUS DOPPLER STUDY: Nonocclusive thrombus in the right common femoral and superficial femoral veins. No other DVTs. CHEST X-RAY: Cardiomegaly and pulmonary vascular congestion without overt pulmonary edema. IMPRESSION AND PLAN: 1. Chronic kidney disease stage IV in the setting of diabetes and hypertension. Creatinine is relatively stable. The patient suffers from chronic lower extremity edema with dietary nondiscretion of salt intake as one of the contributing factors of the chronic edema. During last admission we did use albumin with Lasix. The patient diuresed nicely and the swelling did improve. At times during last admission he would get frustrated and angry. Currently this morning the patient is pleasant. Will switch Lasix to albumin with Lasix. The patient does have a low albumin and 2+ protein on UA. Will check random protein to creatinine ratio to further elucidate causes of proteinuria and low albumin. 2. Anemia. We will recheck an iron level to see if the patient has iron deficiency anemia. Could also have an element of anemia of chronic kidney disease and also could be dilutional secondary to the significant volume overload. 3. Vitamin D deficiency. Does not appear patient is on vitamin D. Vitamin D levels were quite low during my one office visit with him. We will go ahead and redose a vitamin D for the patient. I appreciate the consultation.
[2017-05-17] MEDS: ERGOCALCIFEROL 50,000 INTER.UNIT CAP PO SCH (08:50)
[2017-05-17] MEDS: PANTOprazole SOD 40 MG TAB PO SCH (08:52)
[2017-05-17] MEDS: VENLAFAXINE HCL 50 MG TAB PO SCH (08:53)
[2017-05-17] MEDS: AMOXICILLIN 500 MG CAP PO SCH ×3 (08:54→19:58)
[2017-05-17] MEDS: URSODIOL 300 MG CAP PO SCH ×2 (08:54→19:57)
[2017-05-17] MEDS: APIXABAN 2.5 MG TAB PO SCH ×2 (08:54→19:58)
[2017-05-17] MEDS: LORATADINE 10 MG TAB PO SCH (09:00)
[2017-05-17] MEDS ORDERED: NON-FORMULARY MEDICATION (Esomeprazole Magnesium (Nexium) 40 MG) PO SCH (09:00)
[2017-05-17] MEDS: ALBUMIN 25% 50 ML with FUROSEMIDE INJ 80 MG IV SCH ×6 (09:05→21:25)
[2017-05-17] MEDS: CIPROFLOXACIN 500 MG TAB PO SCH ×2 (09:07→19:59)
[2017-05-17] MEDS: CARVEDILOL 25 MG TAB PO SCH ×2 (09:08→19:58)
[2017-05-17] MEDS: INSULIN GLARGINE SOLOSTAR 100 UNITS/ML 3 ML PEN SC SCH ×2 (09:09→21:27)
[2017-05-17] MEDS: PREGABALIN 75 MG CAP PO SCH ×2 (09:27→20:03)
[2017-05-17] MEDS: ACETAMINOPHEN/CODEINE 300/30MG TAB PO PRN ×2 (09:28→19:52)
--- NOTE | 2017-05-17 10:04 | Medical Consult ---
Consultation Date of Consultation: May 17, 2017. Attending Physician: Tonny Mason M.D. Reason for Consultation: Bilateral lower extremity wounds, resolving cellulitis History of Present Illness 56-year-old male well known to me from recent hospitalization with history of severe chronic lower extremity lymphedema and chronic venous stasis disease, with bouts of ulcerations and recurrent cellulitis. Multiple medical comorbidities including diabetes mellitus, systolic and diastolic heart failure , sleep apnea, atrial fibrillation. He was recently discharged for treatment of lower extremity cellulitis with cultures positive at that time for Pseudomonas, Alcaligenes, and Enterococcus on amoxicillin and ciprofloxacin. He apparently was doing well but did not get appropriate diuretic therapy and now Re presents with several days of progressively worsening lower extremity edema, scrotal edema, shortness of breath, dyspnea on exertion. No fever or chills reported. Some mild chest pain rated 1/10 in intensity. Past Medical/Surgical History Medical Problems: (1) Altered mental status Status: Acute (2) Anemia Status: Acute (3) Anemia Status: Acute (4) Cellulitis Status: Acute (5) Cellulitis Status: Acute (6) CHF (congestive heart failure) Status: Acute (7) Confusion Status: Acute (8) Deep vein thrombosis Status: Acute (9) Hypoglycemia Status: Acute (10) Hypoxia Status: Acute (11) Shortness of breath Status: Acute (12) Vitreous hemorrhage Status: Acute Social History Problems: (1) DVT (deep venous thrombosis) Status: Acute Medical Problems: (1) CAD (coronary artery disease) (2) Chronic a-fib (3) Chronic CHF (4) Chronic pain (5) CKD (chronic kidney disease), stage IV (6) Depression (7) Diabetes mellitus, type II (8) Dyslipidemia (9) H/o sacral fracture (10) Heart attack (11) History of pulmonary embolus (PE) (12) History of stroke (13) HTN (hypertension) (14) Idiopathic cardiomyopathy (15) Ischemic cardiomyopathy (16) Lymphedema (17) Obesity, morbid, BMI 40.0-49.9 (18) Obstructive hydrocephalus (19) Pulmonary embolism (20) Right leg DVT (21) Sleep apnea (22) Venous insufficiency Surgical Problems: (1) H/O eye surgery (2) History of brain shunt (3) History of cholecystectomy (4) S/p pacemaker defibrillator (5) S/P spinal surgery (6) S/p vein filter Family History FH: CAD (coronary artery disease) FATHER ( of [place] late 60's) Social History Smoking Status: Never Smoker Drug Use: none Marital Status: Housing Status: unknown Occupation Status: retired Allergies Coded Allergies: Cephalosporins (Verified Allergy, Unknown, increased HR vs sick to stomach , pt unsure abx allergy to?, 05/05/17) Clindamycin (Verified Allergy, Unknown, increased HR vs sick to stomach, pt unsure abx allergy to?, 05/05/17) Iodinated Diagnostic Agents (Verified Allergy, Unknown, unknown, 04/04/17) Penicillins (Unverified Allergy, Unknown, increased HR vs sick to stomach , pt unsure abx allergy to?, 05/05/17) Perflutren (Verified Allergy, Unknown, PERFLUTREN LIPID MICROSPHERES, 04/04) Current Inpatient Medications Current Inpatient Medications Medications (Trade) Dose Ordered Sig/Migeul Route Start Time Stop Time Status Last Admin Dose Admin Ondansetron HCl (Zofran Inj) 4 mg Q6H PRN IV 05/16/17 17:30 06/15/17 17:29 Insulin Aspart (novoLOG ASPART) SLIDING SCALE If C... ACHS SC 05/16/17 21:00 06/15/17 20:59 05/16/17 21:01 2 UNITS Glucose (Glucose 40% Gel) 15-30 GRAMS 15 GRAMS... UD PRN PO 05/16/17 17:30 06/15/17 17:29 Glucose (Glucose Chew Tab) 4-8 Tablets 4 Tabl... UD PRN PO 05/16/17 17:30 06/15/17 17:29 Dextrose (Dextrose 50% 50ML Syringe) 25-50ML OF 50% DW IV FOR... UD PRN IV 05/16/17 17:30 06/15/17 17:29 Glucagon (Glucagon Inj) 1 mg UD PRN SQ 05/16/17 17:30 06/15/17 17:29 Acetaminophen (Tylenol Tab) 500 mg Q4 PRN PO 05/16/17 19:15 06/15/17 19:14 Acetaminophen/ Codeine Phosphate (Tylenol w/ Codeine #3 Tab) 1 tab Q6H PRN PO 05/16/17 19:15 06/15/17 19:14 05/17/17 09:28 1 TAB Albuterol (Ventolin Hfa Inhaler) 2 puffs Q6H PRN INH 05/16/17 19:15 06/15/17 19:14 Amoxicillin (Amoxil Cap) 500 mg TID PO 05/16/17 21:00 05/26/17 20:59 05/17/17 08:54 500 MG Atorvastatin Calcium (Lipitor Tab) 80 mg HS PO 05/16/17 21:00 06/15/17 20:59 05/16/17 21:24 80 MG Bisacodyl (Dulcolax Supp) 10 mg Q24H PRN [place] 05/16/17 19:15 06/15/17 19:14 Carvedilol (Coreg Tab) 25 mg BID PO 05/16/17 21:00 06/15/17 20:59 05/17/17 09:08 25 MG Ciprofloxacin (Cipro Tab) 500 mg BID PO 05/16/17 21:00 05/26/17 20:59 05/17/17 09:07 500 MG Fentanyl (Duragesic Patch) 12 mcg Q72H TD 05/18/17 09:00 06/01/17 08:59 Hydroxyzine HCl (Vistaril Tab) 25 mg QID PRN PO 05/16/17 19:15 06/15/17 19:14 Loratadine (Claritin Tab) 10 mg DAILY PO 05/17/17 09:00 06/16/17 08:59 Magnesium Hydroxide (Milk Of Magnesia Susp) 30 ml UD PRN PO 05/16/17 19:15 06/15/17 19:14 Nitroglycerin (Nitrostat Tab) 0.4 mg UD PRN [place] 05/16/17 19:15 06/15/17 19:14 Ondansetron HCl (Zofran Tab) 4 mg Q8 PRN PO 05/16/17 19:15 06/15/17 19:14 Pregabalin (Lyrica Cap) 75 mg BID PO 05/16/17 21:00 06/15/17 20:59 05/17/17 09:27 75 MG Senna/Docusate Sodium (Senokot S Tab) 2 tab HS PO 05/16/17 21:00 06/15/17 20:59 05/16/17 21:27 2 TAB Trazodone HCl (Desyrel Tab) 50 mg HS PO 05/16/17 21:00 06/15/17 20:59 05/16/17 21:27 50 MG Ursodiol (Actigall Cap) 300 mg BID PO 05/16/17 21:00 06/15/17 20:59 05/17/17 08:54 300 MG Venlafaxine HCl (effeXOR TAB) 75 mg QAM PO 05/17/17 09:00 06/16/17 08:59 05/17/17 08:53 75 MG Insulin Glargine (Lantus Solostar Pen) 35 units Q12 SC 05/16/17 21:00 06/15/17 20:59 05/17/17 09:09 35 UNITS Pantoprazole Sodium (Protonix Tab) 40 mg QAM PO 05/17/17 09:00 06/16/17 08:59 05/17/17 08:52 40 MG Apixaban (Eliquis Tab) 5 mg BID PO 05/16/17 21:00 06/15/17 20:59 05/17/17 08:54 5 MG Miscellaneous (Fentanyl Patch Remove & Waste) 1 ea Q3D N/A 05/18/17 08:59 06/17/17 08:58 Miscellaneous Information (Check Fentanyl Patch Placement) 1 ea QS N/A 05/17/17 00:00 06/16/17 00:00 05/17/17 08:00 1 EA Furosemide 80 mg/ Albumin Human 58 ml @ 54 mls/hr TID IV 05/17/17 09:00 05/20/17 08:59 05/17/17 09:05 54 MLS/HR Ergocalciferol (Vitamin D Cap) 50,000 interunit DAILY PO 05/17/17 09:00 05/24/17 08:59 05/17/17 08:50 50,000 INTERUNIT Review of Systems All systems were reviewed and are negative except as per HPI Physical Exam Date Time Temp Pulse Resp B/P (MAP) Pulse Ox O2 Delivery O2 Flow Rate FiO2 05/17/17 07:32 36.3 60 20 110/76 (87) 93 Room Air 05/17/17 04:32 36.6 64 21 151/86 (107) 92 Room Air 05/17/17 04:00 Room Air 05/17/17 00:45 36.4 64 24 162/97 (118) 93 Room Air 05/16/17 23:59 Room Air 05/16/17 18:18 36.6 66 18 125/71 94 05/16/17 18:06 66 18 125/71 94 05/16/17 17:36 63 13 94 05/16/17 17:15 36.5 92 20 140/81 Room Air 05/16/17 17:06 64 22 92 05/16/17 16:36 68 20 05/16/17 16:32 64 18 122/75 95 Room Air 05/16/17 16:23 65 05/16/17 16:23 122/75 05/16/17 16:06 62 13 92 05/16/17 16:03 265/181 05/16/17 15:36 63 17 96 05/16/17 15:32 200/103 05/16/17 15:25 66 18 157/96 94 Room Air 05/16/17 15:06 63 12 98 05/16/17 15:01 157/96 05/16/17 14:36 60 12 94 05/16/17 14:31 143/77 05/16/17 14:24 141/89 05/16/17 13:31 149/89 05/16/17 13:24 63 10 97 05/16/17 13:01 173/107 05/16/17 12:54 60 10 93 05/16/17 12:38 60 12 173/107 96 05/16/17 12:37 173/107 05/16/17 12:30 95 Room Air 05/16/17 12:24 60 11 05/16/17 12:15 60 05/16/17 11:54 65 14 05/16/17 11:43 36.6 60 20 129/65 93 Room Air 05/16/17 11:30 129/65 General Appearance: WD/WN, no apparent distress, + obese Head: normocephalic, atraumatic Eyes: normal inspection, EOMI, sclerae normal ENT: normal ENT inspection, pharynx normal Neck: supple, no adenopathy, thyroid normal, trachea midline Respiratory/Chest: chest non-tender, lungs clear, normal breath sounds, no respiratory distress Cardiovascular: no gallop, no murmur, + irregularly irregular Abdomen/GI: normal bowel sounds, non tender, soft, no organomegaly Genitourinary - Male: + pertinent finding (Scrotal edema) Back: normal inspection, no CVA tenderness Extremities/Musculoskelatal: + inflammation, + swelling Neurologic/Psych: alert, oriented x 3 Skin: normal color, no rash, + pertinent finding (Chronic venous stasis changes bilaterally, has several leg ulcerations with some erythema) Lymphatic: no adenopathy Laboratory Results Last 24 Hours Test 05/16/17 11:47 05/16/17 13:07 05/16/17 19:39 05/16/17 20:08 White Blood Count 7.22 K/uL Red Blood Count 3.26 M/uL Hemoglobin 8.3 g/dL Hematocrit 27.6 % Mean Corpuscular Volume 84.7 fL Mean Corpuscular Hemoglobin 25.5 pg Mean Corpuscular Hemoglobin Concent 30.1 g/dl Platelet Count 193 K/uL Mean Platelet Volume 9.9 fL Neutrophils (%) (Auto) 65.3 % Lymphocytes (%) (Auto) 18.0 % Monocytes (%) (Auto) 9.7 % Eosinophils (%) (Auto) 6.0 % Basophils (%) (Auto) 0.7 % Neutrophils # (Auto) 4.72 K/uL Lymphocytes # (Auto) 1.30 K/uL Monocytes # (Auto) 0.70 K/uL Eosinophils # (Auto) 0.43 K/uL Basophils # (Auto) 0.05 K/uL RDW Standard Deviation 57.1 fL RDW Coefficient of Variation 18.5 % Immature Granulocyte % (Auto) 0.3 % Immature Granulocyte # (Auto) 0.02 K/uL Hypersegmented Polys 1+ Hypochromasia PRESENT Anisocytosis PRESENT Prothrombin Time 12.5 SECONDS Prothromb Time International Ratio 1.2 Activated Partial Thromboplast Time 35.0 SECONDS Partial Thromboplastin Ratio 1.3 Sodium Level 141 mmol/L Potassium Level 5.0 mmol/L Chloride Level 112 mmol/L Carbon Dioxide Level 21 mmol/L Anion Gap 8.0 mmol/L Blood Urea Nitrogen 54 mg/dl Creatinine 2.70 mg/dl Est Creatinine Clear Calc Drug Dose 58.3 ml/min Estimated GFR () 29.0 Estimated GFR (Non- 25.0 BUN/Creatinine Ratio 19.9 Random Glucose 119 mg/dl Calcium Level 8.4 mg/dl Magnesium Level 2.6 mg/dl Total Bilirubin 0.4 mg/dl Aspartate Amino Transf (AST/SGOT) 14 U/L Alanine Aminotransferase (ALT/SGPT) 12 U/L Alkaline Phosphatase 209 U/L Troponin I 0.027 ng/ml 0.023 ng/ml Pro-B-Type Natriuretic Peptide 4243 pg/ml Total Protein 8.2 gm/dl Albumin 2.9 gm/dl Globulin 5.3 gm/dl Albumin/Globulin Ratio 0.5 Arterial Blood pH 7.30 Arterial Blood Partial Pressure CO2 49 mmHg Arterial Blood Partial Pressure O2 50 mm/Hg Arterial Blood HCO3 24 mmol/L Arterial Blood Oxygen Saturation 78.7 % Arterial Blood Base Excess -2.7 mEq/L Arterial Blood Gas Delivery ROOM AIR Mk Test POS Bedside Glucose 96 mg/dl Test 05/17/17 01:10 05/17/17 01:12 05/17/17 05:31 05/17/17 06:42 Urine Color YELLOW Urine Appearance CLEAR Urine pH 5.0 Urine Specific [place] 1.020 Urine Protein 2+ Urine Glucose (UA) NEG Urine Ketones NEG Urine Occult Blood NEG Urine Nitrite NEG Urine Bilirubin NEG Urine Urobilinogen NEG Urine Leukocyte Esterase NEG Urine WBC (Auto) 1-5 /hpf Urine RBC (Auto) 0-4 /hpf Urine Hyaline Casts (Auto) 1-5 /lpf Urine Epithelial Cells (Auto) 0-5 /lpf Urine Bacteria (Auto) NEG Troponin I 0.020 ng/ml White Blood Count 4.88 K/uL Red Blood Count 3.17 M/uL Hemoglobin 7.8 g/dL Hematocrit 26.4 % Mean Corpuscular Volume 83.3 fL Mean Corpuscular Hemoglobin 24.6 pg Mean Corpuscular Hemoglobin Concent 29.5 g/dl RDW Standard Deviation 55.4 fL RDW Coefficient of Variation 18.1 % Platelet Count 166 K/uL Mean Platelet Volume 9.9 fL Sodium Level 143 mmol/L Potassium Level 4.6 mmol/L Chloride Level 113 mmol/L Carbon Dioxide Level 23 mmol/L Anion Gap 7.0 mmol/L Blood Urea Nitrogen 56 mg/dl Creatinine 2.50 mg/dl Est Creatinine Clear Calc Drug Dose 62.4 ml/min Estimated GFR () 31.8 Estimated GFR (Non- 27.5 BUN/Creatinine Ratio 22.4 Random Glucose 74 mg/dl Estimated Average Glucose 169 mg/dl Hemoglobin A1c 7.5 % Calcium Level 7.8 mg/dl Total Bilirubin 0.4 mg/dl Aspartate Amino Transf (AST/SGOT) 12 U/L Alanine Aminotransferase (ALT/SGPT) 12 U/L Alkaline Phosphatase 187 U/L Total Protein 7.4 gm/dl Albumin 2.5 gm/dl Globulin 4.9 gm/dl Albumin/Globulin Ratio 0.5 Bedside Glucose 74 mg/dl Patient Name: MARICEL BILLY Unit Number: [id number] Dictated: 05/16/171230 Transcribed: 05/16/171230 JRB Printed Date/Time: [~ rep prt dt]/[~ rep prt tm] [~ rep ct labl] - [~ rep ct ivnm] [facility] Radiology [place] [address] Dictated: 05/16/171230 Transcribed: 05/16/171230 JRB Printed Date/Time: [~ rep prt dt]/[~ rep prt tm] [~ rep ct labl] - [~ rep ct ivnm] CHEST ONE VIEW PORTABLE HISTORY: 56 years-old Male EVALUATE RESPIRATORY DISTRESS.DYSPNEA acute respiratory distress. COMPARISON: Portable chest radiograph 05/01/2017 TECHNIQUE: Portable upright AP view of the chest FINDINGS: Cardiac silhouette is moderately enlarged, unchanged. There is pulmonary vascular congestion without overt pulmonary edema. Left pectoral pacer/AICD is noted with leads appearing to be intact. There is no pneumothorax, pleural effusion or focal airspace consolidation. Bones about the chest appear grossly intact. IMPRESSION: Cardiomegaly and pulmonary vascular congestion without overt pulmonary edema or focal airspace consolidation. The above report was generated using voice recognition software. It may contain grammatical, syntax or spelling errors. Electronically signed by: Ilia Ricks M.D. 05/16/2017 12:32 PM Dictated Date/Time: 05/16/2017 12:31 PM The status of this report is Signed. Draft = Not yet reviewed or approved by Radiologist. Signed = Reviewed and approved by Radiologist. <AttendingPhy></AttendingPhy> <FamilyPhy>[facility], [place]</FamilyPhy> < PrimaryPhy>[facility] [place]</PrimaryPhy> <UnitNumber>[id number]</UnitNumber> <VisitNumber>[id number]</VisitNumber> <PatientName>MARICEL BILLY</ PatientName> <DateOfBirth>1960</DateOfBirth> <Location>[facility]</Location> < ServiceDate>05/16/17</ServiceDate> <MNE>ESINDI</MNE> <OrderingPhy>Neville Cat M.D.</OrderingPhy> <OrderingPhyMNE>f rep ord dr spencer</OrderingPhyMNE> < DictatingPhyMNE>f rep dict dr spencer</DictatingPhyMNE> <CCListMNE>f rep ct mne</ CCListMNE> <AdmittingPhyMNE>f pt admit dr spencer</AdmittingPhyMNE> <AttendingPhyMNE >f pt attend dr spencer</AttendingPhyMNE> <ConsultingPhyMNE>f pt consult dr spencer</ConsultingPhyMNE> <FamilyPhyMNE>f pt fam dr spencer</FamilyPhyMNE> <OtherPhyMNE>f pt other dr spencer</OtherPhyMNE> < PrimaryPhyMNE>f pt prim care dr spencer</PrimaryPhyMNE> <ReferringPhyMNE>f pt referring dr spencer</ReferringPhyMNE> Assessment & Plan 56-year-old male with lower extremity severe edema with leg ulcerations with recent infection with Pseudomonas, Alcaligenes, and Enterococcus. Would recommend patient being restarted on amoxicillin and ciprofloxacin, likely in the range of 7-14 days. Will follow.
--- NOTE | 2017-05-17 10:32 | CARDIOLOGY CONSULTATION ---
DATE OF CONSULTATION: 05/17/2017 CONSULTATION REQUESTED BY: Dr. Mason. REASON FOR CONSULTATION: Lower extremity edema. HISTORY OF PRESENT ILLNESS: Mr. Perez is a very pleasant, yet very medically complex 56-year-old gentleman who presented to [facility] on 05/16/2017 from the [facility] with reports of significant volume overload. The patient was recently confined to [facility] and discharged on the 08 of May after being treated for worsening renal function and acute volume overload. He was appropriately diuresed at that time; however, when he was discharged back to [facility], the patient reports that he did not receive any of his medications and his lower extremities immediately started to swell. He states that they became severely enlarged and engorged and painful with significant weeping. He also had significant abdominal distention, but states that his breathing remained okay. The patient presented to the Emergency Department, where he was found to be profoundly volume overloaded. Nephrology was consulted and he was started on albumin and Lasix, which was successful in the past. So far this a.m., he has already diuresed 1500 mL of urine with only receiving a single dose. Otherwise, he denies any chest pain, palpitations, lightheadedness, dizziness, or syncope. PAST SURGICAL HISTORY: 1. [facility] ICD placement. 2. Upper endoscopy. 3. History of eye surgery. 4. Cerebral shunt as a child. 5. Cholecystectomy. 6. Spinal surgery. 7. IVC filter placement. MEDICAL ILLNESSES: 1. Chronic combined systolic and diastolic heart failure with a history of nonischemic cardiomyopathy in the remote past. EF most recently 55%-60%. 2. Diastolic dysfunction. 3. Right-sided heart failure. 4. Obesity. 5. Permanent atrial fibrillation. 6. Hyperlipidemia. 7. Hypertension. 8. Diabetes. 9. Obesity. 10. Chronic venous insufficiency. 11. Recurrent lower extremity cellulitis. 12. Stage III to IV chronic kidney disease. FAMILY HISTORY: Remarkable for heart disorder in his father. Unable to elaborate. SOCIAL HISTORY: He denies any alcohol, tobacco or recreational drug use. He currently resides at [facility] permanently. REVIEW OF SYSTEMS: As per HPI. All other review of systems reviewed and negative at this time. ALLERGIES: 1. AMOXICILLIN. 2. CEPHALOSPORINS. 3. . 4. CLINDAMYCIN. 5. IODINATED CONTRAST AGENTS. 6. PENICILLIN. 7. PERFLUTREN. MEDICATIONS: On admission, 1. Amoxicillin 500 mg 3 times a day. 2. Atorvastatin 80 mg daily. 3. 500 mg daily. 4. Eliquis 5 mg b.i.d. 5. Coreg 25 mg b.i.d. 6. Fentanyl patch. 7. Nexium daily. 8. Trazodone at bedtime. 9. Lyrica b.i.d. 10. MiraLax daily. 11. Milk of magnesia as needed. 12. Loratadine daily. 13. Levothyroxine daily. 14. Insulin as directed. 15. Atarax as needed. PHYSICAL EXAMINATION: VITALS: Temperature 36.3, pulse 60, respiratory rate 12, and blood pressure 110/76. GENERAL: Awake, alert, and oriented x3, no acute distress. Morbidly obese. Sitting at bedside. HEENT: Normocephalic and atraumatic. Pupils equal, round, and reactive to light and accommodation. Extraocular muscles intact. Anicteric sclerae. Moist mucous membranes. Poor dentition. NECK: Difficult to assess, but no JVD and no bruit. CARDIOVASCULAR: Irregularly irregular and distant. Unable to appreciate murmurs, rubs or gallops. PULMONARY: Poor air movement bilaterally, but otherwise clear. No rales, rhonchi, or wheezing. ABDOMEN: Bowel sounds x4. Distended. No rebound, guarding, or tenderness. No organomegaly. EXTREMITIES: Profound bilateral lower extremity edema with open seeping wounds and chronic venous stasis color changes. Chest x-ray was read as cardiomegaly and pulmonary vascular congestion without overt pulmonary edema. LABORATORY STUDIES OF SIGNIFICANCE: Hemoglobin 7.8. Sodium 143, potassium 4.6, BUN 56, and creatinine 2.5. IMPRESSION: 1. Acute on chronic diastolic/right ventricular heart failure. 2. Worsening renal function. 3. Morbid obesity. 4. Persistent atrial fibrillation, rate controlled on chronic Eliquis. RECOMMENDATIONS: It was my pleasure to see Mr. Perez in reevaluation today. From a cardiac standpoint, I do not have much more to add on top of what our nephrology colleagues have already recommended. He is significantly volume overloaded, but he was not discharged home on diuretics and fluid will now be mobilized with albumin and Lasix. He will be continued on his Eliquis for cardioembolic stroke prevention as well as his Coreg. There is no need to repeat an echocardiogram at this time. WANG
--- NOTE | 2017-05-17 18:45 | Progress Note ---
Internal Med Progress Note Date of Service: May 17, 2017. Provider Documentation: SUBJECTIVE: patient seen and examined at bedside. sitting on bed. no acute complaints of pain. feet still swollen OBJECTIVE: General Appearance: no acute distress Head: normocephalic, atraumatic Eyes: normal inspection, EOMI, sclerae normal ENT: hearing grossly normal, pharynx normal Neck: supple, no adenopathy, trachea midline, + JVD Respiratory/Chest: chest non-tender, lungs clear, no respiratory distress, no accessory muscle use Cardiovascular: regular rate, rhythm Abdomen/GI: normal bowel sounds, soft Back: normal inspection, no CVA tenderness Extremities: no calf tenderness, Significant LE swelling, R>L, extending up to scrotal area Neurologic/Psych: no motor deficits Skin: Skin hypertrophied any discolored from venous stasis. Presence of 3x3cm well-circumscribed, ulcerated lesion on L anterior tamayo with clear drainage. 1x1cm scabbed lesion on L hemiscrotum. Presence of healing wounds on bilateral posterior calf, R lateral foot. Toenails yellowed; 1st R toenail bed without nail. Darkened spots visualized on all toes distally ASSESSMENT & PLAN: This is a 56yo M with a PMH of HTN, DM II, h/o chronic R DVT, idiopathic cardiomyopathy with systolic and diastolic dysfunction, s/p Pacemaker, chronic A Fib (on Eliquis), lymphedema, CKD stage IV and other medical problems listed below who presents for worsening bilateral LE edema. BLE cellulitis -recent infection with Pseudomonas, Alcaligenes, and Enterococcus. As per Id consult: patient being restarted on amoxicillin and ciprofloxacin likely in the range of 7-14 days -wound care Bilateral lower extremity swelling: -Multifactorial with h/o lymphedema, CHF, CKD, dietary non-compliance, missing diuretic at [facility] -nephrology consult will give Lasix with albumin Acute on chronic systolic/diastolic HF: -Lasix with albumin Exertional chest pain: resolved DM II: -Hgb a1c of 7.6 in December 2016 -Ordered hgb a1c -Continued patients home dose of Lantus. SSI. -BG checks AC HS -Diabetic education CKD Stage IV -monitor GFR Chronic A Fib: -Continue home dose of Eliquis; on last admission there have been cardiology recommendations to continue with Eliquis however given renal function and weight patient may benefit from coumadin, will re-discuss with the patient on risks and benefits -Coreg for rate control H/o R DVT/PE: - history of IVC filter -on Eliquis HTN: -Stable -Continue home meds Hypothyroidism: -Continue levothyroxine DVT Ppx: Eliquis Code status: FULL PCP: Damián Dispo: SW consulted to help with discharge placement back to [facility] Vital Signs: Date Time Temp Pulse Resp B/P (MAP) Pulse Ox O2 Delivery O2 Flow Rate FiO2 05/17/17 16:20 36.8 89 22 132/84 (100) 93 Room Air 05/17/17 16:00 Room Air 05/17/17 12:00 Room Air 05/17/17 11:51 36.6 63 20 141/83 (102) 95 Room Air 05/17/17 08:00 Room Air 05/17/17 07:32 36.3 60 20 110/76 (87) 93 Room Air 05/17/17 04:32 36.6 64 21 151/86 (107) 92 Room Air 05/17/17 04:00 Room Air 05/17/17 00:45 36.4 64 24 162/97 (118) 93 Room Air 05/16/17 23:59 Room Air Lab Results: Results Past 24 Hours Test 05/16/17 19:39 05/16/17 20:08 05/17/17 01:10 05/17/17 01:12 Range/Units Troponin I 0.023 0.020 0-0.045 ng/ml Bedside Glucose 96 70-99 mg/dl Urine Color YELLOW Urine Appearance CLEAR CLEAR Urine pH 5.0 4.5-7.5 Urine Specific [place] 1.020 1.000-1.030 Urine Protein 2+ NEG Urine Glucose (UA) NEG NEG Urine Ketones NEG NEG Urine Occult Blood NEG NEG Urine Nitrite NEG NEG Urine Bilirubin NEG NEG Urine Urobilinogen NEG NEG Urine Leukocyte Esterase NEG NEG Urine WBC (Auto) 1-5 0-5 /hpf Urine RBC (Auto) 0-4 0-4 /hpf Urine Hyaline Casts (Auto) 1-5 0-5 /lpf Urine Epithelial Cells (Auto) 0-5 0-5 /lpf Urine Bacteria (Auto) NEG NEG Test 05/17/17 05:31 05/17/17 06:42 05/17/17 11:12 05/17/17 16:22 Range/Units White Blood Count 4.88 4.8-10.8 K/uL Red Blood Count 3.17 4.7-6.1 M/uL Hemoglobin 7.8 14.0-18.0 g/dL Hematocrit 26.4 42-52 % Mean Corpuscular Volume 83.3 80-100 fL Mean Corpuscular Hemoglobin 24.6 25-34 pg Mean Corpuscular Hemoglobin Concent 29.5 32-36 g/dl RDW Standard Deviation 55.4 36.4-46.3 fL RDW Coefficient of Variation 18.1 11.5-14.5 % Platelet Count 166 130-400 K/uL Mean Platelet Volume 9.9 7.4-10.4 fL Sodium Level 143 136-145 mmol/L Potassium Level 4.6 3.5-5.1 mmol/L Chloride Level 113 98-107 mmol/L Carbon Dioxide Level 23 21-32 mmol/L Anion Gap 7.0 3-11 mmol/L Blood Urea Nitrogen 56 7-18 mg/dl Creatinine 2.50 0.60-1.40 mg/dl Est Creatinine Clear Calc Drug Dose 62.4 ml/min Estimated GFR () 31.8 Estimated GFR (Non- 27.5 BUN/Creatinine Ratio 22.4 10-20 Random Glucose 74 70-99 mg/dl Estimated Average Glucose 169 mg/dl Hemoglobin A1c 7.5 4.5-5.6 % Calcium Level 7.8 8.5-10.1 mg/dl Total Bilirubin 0.4 0.2-1 mg/dl Aspartate Amino Transf (AST/SGOT) 12 15-37 U/L Alanine Aminotransferase (ALT/SGPT) 12 12-78 U/L Alkaline Phosphatase 187 45-117 U/L Total Protein 7.4 6.4-8.2 gm/dl Albumin 2.5 3.4-5.0 gm/dl Globulin 4.9 2.5-4.0 gm/dl Albumin/Globulin Ratio 0.5 0.9-2 Bedside Glucose 74 116 89 70-99 mg/dl
[2017-05-17] MEDS: hydrOXYzine HCL 25 MG TAB PO PRN (19:52)
[2017-05-17] MEDS: DOCUSATE SODIUM/SENNA 50/8.6MG TAB PO SCH (19:56)
[2017-05-17] MEDS: TRAZODONE HCL 50 MG TAB PO SCH (19:56)
[2017-05-17] MEDS: ATORVASTATIN 40 MG TAB PO SCH (19:57)
[2017-05-17 22:26] LABS: URINE TOTAL PROTEIN 134.3 mg/dl (0-11.9)
[2017-05-18] VITALS (10 sets, daily range): BP systolic 122–144; BP diastolic 71–86; PULSE 63–69; TEMP 36.6–37; O2SAT 92–98; BMI 46.8
[2017-05-18] MEDS: CHECK FENTANYL PATCH PLACEMENT SCH ×4 (00:16→23:58)
[2017-05-18] MEDS: ACETAMINOPHEN/CODEINE 300/30MG TAB PO PRN ×3 (04:16→20:07)
[2017-05-18] MEDS ORDERED: ACETAMINOPHEN IV 650 MG in EMPTY BAG 0 ML IV STA (05:01)
[2017-05-18 06:49] LABS: BASO % 0.5 %; BASO ABS # 0.03 K/uL (0-0.2); EOS % 6.3 %; HEMATOCRIT 28.6 % (42-52); LYMPH % 16.7 %; LYMPH ABS # 1.01 K/uL (1.2-3.4); MEAN CELL VOLUME 82.9 fL (80-100); MEAN CORPUSCULAR HEMOGLOBIN 24.3 pg (25-34); MEAN CORPUSCULAR HGB CONC 29.4 g/dl (32-36); MEAN PLATELET VOLUME 9.6 fL (7.4-10.4); MONO % 8.8 %; NEUT % 67.7 %; PLATELET COUNT 177 K/uL (130-400); RED BLOOD COUNT 3.45 M/uL (4.7-6.1); WHITE BLOOD COUNT 6.03 K/uL (4.8-10.8)
[2017-05-18 07:31] LABS: BUN/CREATININE RATIO 19.4 (10-20); POTASSIUM 4.2 mmol/L (3.5-5.1)
[2017-05-18 07:34] LABS: ALB/GLOB RATIO 0.6 (0.9-2); FERRITIN 47.1 ng/ml (8.0-388.0)
[2017-05-18 08:29] LABS: COMPLETE YES
[2017-05-18] MEDS: URSODIOL 300 MG CAP PO SCH ×2 (09:00→20:06)
[2017-05-18] MEDS: INSULIN ASPART 100 UNITS/ML 3 ML PEN SC SCH ×4 (09:28→20:14)
[2017-05-18] MEDS: FENTANYL PATCH REMOVE & WASTE SCH (09:29)
[2017-05-18] MEDS: ALBUMIN 25% 50 ML with FUROSEMIDE INJ 80 MG IV SCH ×8 (09:33→20:24)
[2017-05-18] MEDS: AMOXICILLIN 500 MG CAP PO SCH ×3 (09:35→20:06)
[2017-05-18] MEDS: CIPROFLOXACIN 500 MG TAB PO SCH ×2 (09:36→20:07)
[2017-05-18] MEDS: LORATADINE 10 MG TAB PO SCH (09:37)
[2017-05-18] MEDS: CARVEDILOL 25 MG TAB PO SCH ×2 (09:38→20:06)
[2017-05-18] MEDS: VENLAFAXINE HCL 50 MG TAB PO SCH (09:40)
[2017-05-18] MEDS: APIXABAN 2.5 MG TAB PO SCH ×2 (09:41→20:06)
[2017-05-18] MEDS: PREGABALIN 75 MG CAP PO SCH ×2 (09:42→20:06)
[2017-05-18] MEDS: PANTOprazole SOD 40 MG TAB PO SCH (09:43)
[2017-05-18] MEDS: ERGOCALCIFEROL 50,000 INTER.UNIT CAP PO SCH (09:44)
[2017-05-18] MEDS: INSULIN GLARGINE SOLOSTAR 100 UNITS/ML 3 ML PEN SC SCH ×2 (09:44→20:18)
--- NOTE | 2017-05-18 09:45 | Cardiology Follow-Up ---
Subjective Subjective Date of Service: May 18, 2017. Pt evaluation today including: conversation w/ patient, physical exam, chart review, lab review, review of studies, review of inpatient medication list Additional Details: Pt seen and examined, siting upright over the side of the bed. Does not note any significant change compared to admission. Denies cp, sob, palpitations but with continued painful LE edema Tele reviewed: atrial fibrillation, rate controlled Problem List Medical Problems: (1) Altered mental status Status: Acute (2) Anemia Status: Acute (3) Anemia Status: Acute (4) Cellulitis Status: Acute (5) Cellulitis Status: Acute (6) CHF (congestive heart failure) Status: Acute (7) Confusion Status: Acute (8) Deep vein thrombosis Status: Acute (9) Hypoglycemia Status: Acute (10) Hypoxia Status: Acute (11) Shortness of breath Status: Acute (12) Vitreous hemorrhage Status: Acute Social History Problems: (1) DVT (deep venous thrombosis) Status: Acute Review of Systems Eyes: + see HPI, + worsening of vision Respiratory: No see HPI, No cough, No sputum, No wheezing, No shortness of breath, No dyspnea on exertion, No dyspnea at rest, No hemoptysis, No problem reported Cardiac: + edema, No see HPI, No chest pain, No orthopnea, No PND, No claudication, No palpitations, No problem reported Musculoskeletal: + muscle pain, + swelling Objective Vital Signs Last Vital Signs Documentation Date Time Temp Pulse Resp B/P (MAP) Pulse Ox O2 Delivery O2 Flow Rate FiO2 05/18/17 08:00 Room Air 05/18/17 04:18 36.7 63 22 141/86 (104) 96 Physical Exam: General Appearance: WD/WN, no apparent distress, + obese Eyes: bilateral eyes normal inspection, bilateral eyes PERRL, bilateral eyes EOMI ENT: normal ENT inspection, hearing grossly normal, pharynx normal Neck: supple, no adenopathy, thyroid normal, no JVD, no carotid bruits, trachea midline Respiratory/Chest: chest non-tender, lungs clear, normal breath sounds, no respiratory distress Cardiovascular: regular rate, rhythm, + pertinent finding (regular but distant) Abdomen: normal bowel sounds, non tender, soft, no organomegaly Extremities: non-tender, + inflammation, + swelling Neurologic/Psychiatric: corrections caseworker II-XII nml as tested, no motor/sensory deficits, alert, normal mood/affect, oriented x 3 Skin: normal color, warm/dry, no rash, + pertinent finding Lymphatic: no adenopathy Assessment and Plan 1. volume overload likely a combination of chronic right sided heart failure and renal impairment was not given diuretics as an outpatient diuresing well now will defer management to our Nephrology colleagues currently receiving albumin and lasix lytes being monitored 2. Afib persistent cont coreg and Eliquis ok to transfer to [facility] from cardiac standpoint will sign off, please call with questions or concerns
[2017-05-18] MEDS: FENTANYL 12 MCG/HR TDSY TD SCH (09:46)
--- NOTE | 2017-05-18 10:03 | Nephrology Progress Note ---
Nephrology Progress Note Date of Service: May 18, 2017. Subjective c/o R leg pain "all johnny way up" to hip; denies dyspnea, n/v, issues voiding on high dose lasix, n/v/d/c Objective Date Time Temp Pulse Resp B/P (MAP) Pulse Ox O2 Delivery O2 Flow Rate FiO2 05/18/17 08:00 Room Air 05/18/17 04:18 36.7 63 22 141/86 (104) 96 Room Air 05/18/17 04:15 95 Room Air 05/18/17 00:41 37.0 66 21 122/84 (97) 96 Room Air 05/18/17 00:10 96 Room Air 05/17/17 20:00 95 Room Air 05/17/17 19:40 36.3 67 18 133/83 (100) 95 Room Air 05/17/17 16:20 36.8 89 22 132/84 (100) 93 Room Air 05/17/17 16:00 Room Air 05/17/17 12:00 Room Air 05/17/17 11:51 36.6 63 20 141/83 (102) 95 Room Air Physical Exam: GENERAL: Awake, alert, oriented x3, relatively large man on RA leaning/listing to R on side of bed EYES: No scleral icterus. ENT: Moist mucous membranes. NECK: Supple. PULMONARY: Clear to auscultation but very diminished CARDIAC: distant irregular HS in 60s ABDOMEN: Bowel sounds positive, soft, nontender, nondistended. no trujillo EXTREMITIES: +4 edema with open wounds. R ankle wrappe NEUROLOGIC: Residual right arm weakness, which is mild. fluent speech DERM: Chronic lower extremity wounds Current Inpatient Medications Medications (Trade) Dose Ordered Sig/Miguel Route Start Time Stop Time Status Last Admin Dose Admin Ondansetron HCl (Zofran Inj) 4 mg Q6H PRN IV 05/16/17 17:30 06/15/17 17:29 Insulin Aspart (novoLOG ASPART) SLIDING SCALE If C... ACHS SC 05/16/17 21:00 06/15/17 20:59 05/17/17 17:30 8 UNITS Glucose (Glucose 40% Gel) 15-30 GRAMS 15 GRAMS... UD PRN PO 05/16/17 17:30 06/15/17 17:29 Glucose (Glucose Chew Tab) 4-8 Tablets 4 Tabl... UD PRN PO 05/16/17 17:30 06/15/17 17:29 Dextrose (Dextrose 50% 50ML Syringe) 25-50ML OF 50% DW IV FOR... UD PRN IV 05/16/17 17:30 06/15/17 17:29 Glucagon (Glucagon Inj) 1 mg UD PRN SQ 05/16/17 17:30 06/15/17 17:29 Acetaminophen (Tylenol Tab) 500 mg Q4 PRN PO 05/16/17 19:15 06/15/17 19:14 Acetaminophen/ Codeine Phosphate (Tylenol w/ Codeine #3 Tab) 1 tab Q6H PRN PO 05/16/17 19:15 06/15/17 19:14 05/18/17 04:16 1 TAB Albuterol (Ventolin Hfa Inhaler) 2 puffs Q6H PRN INH 05/16/17 19:15 06/15/17 19:14 Amoxicillin (Amoxil Cap) 500 mg TID PO 05/16/17 21:00 05/26/17 20:59 05/17/17 19:58 500 MG Atorvastatin Calcium (Lipitor Tab) 80 mg HS PO 05/16/17 21:00 06/15/17 20:59 05/17/17 19:57 80 MG Bisacodyl (Dulcolax Supp) 10 mg Q24H PRN AL 05/16/17 19:15 06/15/17 19:14 Carvedilol (Coreg Tab) 25 mg BID PO 05/16/17 21:00 06/15/17 20:59 05/17/17 19:58 25 MG Ciprofloxacin (Cipro Tab) 500 mg BID PO 05/16/17 21:00 05/26/17 20:59 05/17/17 19:59 500 MG Fentanyl (Duragesic Patch) 12 mcg Q72H TD 05/18/17 09:00 06/01/17 08:59 Hydroxyzine HCl (Vistaril Tab) 25 mg QID PRN PO 05/16/17 19:15 06/15/17 19:14 05/17/17 19:52 25 MG Loratadine (Claritin Tab) 10 mg DAILY PO 05/17/17 09:00 06/16/17 08:59 Magnesium Hydroxide (Milk Of Magnesia Susp) 30 ml UD PRN PO 05/16/17 19:15 06/15/17 19:14 Nitroglycerin (Nitrostat Tab) 0.4 mg UD PRN UT 05/16/17 19:15 06/15/17 19:14 Ondansetron HCl (Zofran Tab) 4 mg Q8 PRN PO 05/16/17 19:15 06/15/17 19:14 Pregabalin (Lyrica Cap) 75 mg BID PO 05/16/17 21:00 06/15/17 20:59 05/17/17 20:03 75 MG Senna/Docusate Sodium (Senokot S Tab) 2 tab HS PO 05/16/17 21:00 06/15/17 20:59 05/17/17 19:56 2 TAB Trazodone HCl (Desyrel Tab) 50 mg HS PO 05/16/17 21:00 06/15/17 20:59 05/17/17 19:56 50 MG Ursodiol (Actigall Cap) 300 mg BID PO 05/16/17 21:00 06/15/17 20:59 05/17/17 19:57 300 MG Venlafaxine HCl (effeXOR TAB) 75 mg QAM PO 05/17/17 09:00 06/16/17 08:59 05/17/17 08:53 75 MG Insulin Glargine (Lantus Solostar Pen) 35 units Q12 SC 05/16/17 21:00 06/15/17 20:59 05/17/17 21:27 35 UNITS Pantoprazole Sodium (Protonix Tab) 40 mg QAM PO 05/17/17 09:00 06/16/17 08:59 05/17/17 08:52 40 MG Apixaban (Eliquis Tab) 5 mg BID PO 05/16/17 21:00 06/15/17 20:59 05/17/17 19:58 5 MG Miscellaneous (Fentanyl Patch Remove & Waste) 1 ea Q3D N/A 05/18/17 08:59 06/17/17 08:58 Miscellaneous Information (Check Fentanyl Patch Placement) 1 ea QS N/A 05/17/17 00:00 06/16/17 00:00 05/18/17 00:16 1 EA Furosemide 80 mg/ Albumin Human 58 ml @ 54 mls/hr TID IV 05/17/17 09:00 05/20/17 08:59 05/17/17 21:25 54 MLS/HR Ergocalciferol (Vitamin D Cap) 50,000 interunit DAILY PO 05/17/17 09:00 05/24/17 08:59 05/17/17 08:50 50,000 INTERUNIT Last 24 Hours Test 05/17/17 11:12 05/17/17 16:22 05/17/17 20:39 05/17/17 21:20 Bedside Glucose 116 mg/dl 89 mg/dl 74 mg/dl Urine Random Creatinine 34.0 mg/dl Urine Random Total Protein 134.3 mg/dl Urine Protein/Creatinine Ratio 4.0 Test 05/18/17 06:36 05/18/17 06:45 05/18/17 07:25 White Blood Count 6.03 K/uL Red Blood Count 3.45 M/uL Hemoglobin 8.4 g/dL Hematocrit 28.6 % Mean Corpuscular Volume 82.9 fL Mean Corpuscular Hemoglobin 24.3 pg Mean Corpuscular Hemoglobin Concent 29.4 g/dl Platelet Count 177 K/uL Mean Platelet Volume 9.6 fL Neutrophils (%) (Auto) 67.7 % Lymphocytes (%) (Auto) 16.7 % Monocytes (%) (Auto) 8.8 % Eosinophils (%) (Auto) 6.3 % Basophils (%) (Auto) 0.5 % Neutrophils # (Auto) 4.08 K/uL Lymphocytes # (Auto) 1.01 K/uL Monocytes # (Auto) 0.53 K/uL Eosinophils # (Auto) 0.38 K/uL Basophils # (Auto) 0.03 K/uL RDW Standard Deviation 55.8 fL RDW Coefficient of Variation 18.4 % Immature Granulocyte % (Auto) 0.0 % Immature Granulocyte # (Auto) 0.00 K/uL Red Blood Cell Morphology Unremarkable Sodium Level 142 mmol/L Potassium Level 4.2 mmol/L Chloride Level 111 mmol/L Carbon Dioxide Level 23 mmol/L Anion Gap 8.0 mmol/L Blood Urea Nitrogen 58 mg/dl Creatinine 3.00 mg/dl Est Creatinine Clear Calc Drug Dose 51.8 ml/min Estimated GFR () 25.5 Estimated GFR (Non- 22.0 BUN/Creatinine Ratio 19.4 Random Glucose 54 mg/dl Calcium Level 8.0 mg/dl Iron Level 29 mcg/dl Total Iron Binding Capacity 292 mcg/dl Ferritin 47.1 ng/ml Total Bilirubin 0.4 mg/dl Aspartate Amino Transf (AST/SGOT) 13 U/L Alanine Aminotransferase (ALT/SGPT) 13 U/L Alkaline Phosphatase 190 U/L Total Protein 7.8 gm/dl Albumin 2.9 gm/dl Globulin 4.9 gm/dl Albumin/Globulin Ratio 0.6 Bedside Glucose 63 mg/dl 78 mg/dl Assessment & Plan 56 y/o M w/ CKD 4 from dm/htn baseline creatinine mid 2's, chronic R sided weakness after strokes, permanent a fib, chronic diastolic and R HF, chronic lymphedema, dylan, chronic dvt s/p IVC filter, s/p 2 back surgeries, surgeries for eyelid cancer and childhood hydrocephalus admitted 05/16 worsening lymphedema (per H&P no po lasix given since [facility] d/c 05/01 at outside facility). This is his 3rd admission for volume overload since late March. Volume overload -multifactorial >> lack of diuretics prior to admission w/ dietary indiscretions in setting of longstanding dm, htn, ckd4, chronic hf -agree w/ < 2gm/day Na diet; agree w/ fluid limit 1.5 L daily for now -he is 2.5L negative yesterday w/ bedscale wts trending down -continue lasix 80 mg IV tid w/ albumin, to which he has responded in past, cont daily wts, strict I/o BART on chronic kidney disease stage IV in the setting of diabetes and hypertension w/ obligate need for diuresis. BART from obligate diuretics. 4 gm proteinuria on spot ratio w/ bland sediment. -ordered spep/upep; doubt proteinuria new or from causes other than dm/htn/ obesity -cannot rule out need for dialysis this admission or in future; this was not d/ w pt today -if creat continues to worsen, may need to reduce lasix dosing/frequency -daily bmp Anemia. likely anemia of chronic kidney disease and also could be dilutional secondary to the significant volume overload. ck transferrin sat appreciate consult; will follow with you.
[2017-05-18] MEDS ORDERED: NURSING VERBAL MED ORDER ONE (13:15)
--- NOTE | 2017-05-18 13:22 | Wound Consultation: Inpatient ---
Wound Consultation Date of Consultation: May 18, 2017. Attending Physician: Tonny Mason M.D. Reason for Consultation: Multiple ulcerations bilateral lower extremities History of Present Illness Patient was recently readmitted to the hospital for management of congestive heart failure. Patient has persistent swelling of both of his lower extremities with ulcerations. Patient was seen 2 weeks prior during a hospitalization at that time. Patient states he also has pain in the left groin region. Patient states he has chronic drainage from these ulcerative sites. Patient states the right is greater than the left. Patient denies any fever chills or night sweats. Patient denies any chest pain shortness of breath abdominal discomfort nausea vomiting. Patient denies any other systemic complaints at this time. Family History FH: CAD (coronary artery disease) FATHER ( of [place] late s) Social History Smoking Status: Never Smoker Drug Use: none Marital Status: Housing Status: unknown Occupation Status: retired Allergies Coded Allergies: Cephalosporins (Verified Allergy, Unknown, increased HR vs sick to stomach , pt unsure abx allergy to?, 05/05/17) Clindamycin (Verified Allergy, Unknown, increased HR vs sick to stomach, pt unsure abx allergy to?, 05/05/17) Iodinated Diagnostic Agents (Verified Allergy, Unknown, unknown, 04/04/17) Penicillins (Unverified Allergy, Unknown, increased HR vs sick to stomach , pt unsure abx allergy to?, 05/05/17) Perflutren (Verified Allergy, Unknown, PERFLUTREN LIPID MICROSPHERES, 04/04) Home Medications Scheduled Amoxicillin (Amoxil), 500 MG PO TID Apixaban (Eliquis), 5 MG PO BID Atorvastatin (Lipitor), 80 MG PO HS Carvedilol (Coreg), 25 MG PO BID Ciprofloxacin Hcl (Cipro), 500 MG PO BID Esomeprazole Magnesium (Nexium), 40 MG PO DAILY Fentanyl (Fentanyl), 12 MCG TOP [id number] Insulin Aspart (Novolog), 15 UNITS SQ TIDM Insulin Detemir (Levemir), 35 UNITS SQ BID Loratadine (Claritin), 10 MG PO DAILY Melatonin (Melatonin), 10 MG PO HS Multiple Vitamins W/ Minerals (Theragran-M), 1 TAB PO QAM Polyethylene Glycol 3350 (Miralax), 17 GM PO DAILY Pregabalin (Lyrica), 75 MG PO BID Sennosides-Docusate Sodium (Sennalax-S), 2 TABS PO HS Trazodone Hcl (Trazodone), 50 MG PO HS Ursodiol (Ursodiol), 300 MG PO BID Venlafaxine Hcl (Effexor), 75 MG PO QAM Scheduled PRN Acetaminophen (Tylenol), 500 MG PO Q4 PRN for Pain or Fever Acetaminophen (Tylenol), 650 MG NH Q6H PRN for Pain Acetaminophen/Codeine (Tylenol W/Codeine #3), 1 TAB PO Q6H PRN for Pain Albuterol Hfa (Ventolin Hfa), 2 PUFFS INH Q6H PRN for Wheezing Bisacodyl (Dulcolax), 1 SUPP NH Q24H PRN for no bm past 2 days Dextrose (Diabetic Use) (Insta-Glucose), 1 APPLN PO UD PRN for HYPOGLYCEMIA PROTOCOL Hydroxyzine Hcl (Atarax), 25 MG PO QID PRN for Itching Magnesium Hydroxide (Milk Of Magnesia), 30 ML PO UD PRN for Constipation Nitroglycerin (Nitrostat), 0.4 MG UT UD PRN for Chest Pain Ondansetron Hcl (Zofran), 4-8 MG PO Q8 PRN for Nausea Miscellaneous Medications Glucagon (Glucagon Emergency Kit) Inpatient Medications Current Inpatient Medications Medications (Trade) Dose Ordered Sig/Miguel Route Start Time Stop Time Status Last Admin Dose Admin Ondansetron HCl (Zofran Inj) 4 mg Q6H PRN IV 05/16/17 17:30 06/15/17 17:29 Insulin Aspart (novoLOG ASPART) SLIDING SCALE If C... ACHS SC 05/16/17 21:00 06/15/17 20:59 05/18/17 09:28 5 UNITS Glucose (Glucose 40% Gel) 15-30 GRAMS 15 GRAMS... UD PRN PO 05/16/17 17:30 06/15/17 17:29 Glucose (Glucose Chew Tab) 4-8 Tablets 4 Tabl... UD PRN PO 05/16/17 17:30 06/15/17 17:29 Dextrose (Dextrose 50% 50ML Syringe) 25-50ML OF 50% DW IV FOR... UD PRN IV 05/16/17 17:30 06/15/17 17:29 Glucagon (Glucagon Inj) 1 mg UD PRN SQ 05/16/17 17:30 06/15/17 17:29 Acetaminophen (Tylenol Tab) 500 mg Q4 PRN PO 05/16/17 19:15 06/15/17 19:14 Acetaminophen/ Codeine Phosphate (Tylenol w/ Codeine #3 Tab) 1 tab Q6H PRN PO 05/16/17 19:15 06/15/17 19:14 05/18/17 11:21 1 TAB Albuterol (Ventolin Hfa Inhaler) 2 puffs Q6H PRN INH 05/16/17 19:15 06/15/17 19:14 Amoxicillin (Amoxil Cap) 500 mg TID PO 05/16/17 21:00 05/26/17 20:59 05/18/17 09:35 500 MG Atorvastatin Calcium (Lipitor Tab) 80 mg HS PO 05/16/17 21:00 06/15/17 20:59 05/17/17 19:57 80 MG Bisacodyl (Dulcolax Supp) 10 mg Q24H PRN [place] 05/16/17 19:15 06/15/17 19:14 Carvedilol (Coreg Tab) 25 mg BID PO 05/16/17 21:00 06/15/17 20:59 05/18/17 09:38 25 MG Ciprofloxacin (Cipro Tab) 500 mg BID PO 05/16/17 21:00 05/26/17 20:59 05/18/17 09:36 500 MG Fentanyl (Duragesic Patch) 12 mcg Q72H TD 05/18/17 09:00 06/01/17 08:59 05/18/17 09:46 12 MCG Hydroxyzine HCl (Vistaril Tab) 25 mg QID PRN PO 05/16/17 19:15 06/15/17 19:14 05/17/17 19:52 25 MG Loratadine (Claritin Tab) 10 mg DAILY PO 05/17/17 09:00 06/16/17 08:59 Magnesium Hydroxide (Milk Of Magnesia Susp) 30 ml UD PRN PO 05/16/17 19:15 06/15/17 19:14 Nitroglycerin (Nitrostat Tab) 0.4 mg UD PRN UT 05/16/17 19:15 06/15/17 19:14 Ondansetron HCl (Zofran Tab) 4 mg Q8 PRN PO 05/16/17 19:15 06/15/17 19:14 Pregabalin (Lyrica Cap) 75 mg BID PO 05/16/17 21:00 06/15/17 20:59 05/18/17 09:42 75 MG Senna/Docusate Sodium (Senokot S Tab) 2 tab HS PO 05/16/17 21:00 06/15/17 20:59 05/17/17 19:56 2 TAB Trazodone HCl (Desyrel Tab) 50 mg HS PO 05/16/17 21:00 06/15/17 20:59 05/17/17 19:56 50 MG Ursodiol (Actigall Cap) 300 mg BID PO 05/16/17 21:00 06/15/17 20:59 05/18/17 09:00 300 MG Venlafaxine HCl (effeXOR TAB) 75 mg QAM PO 05/17/17 09:00 06/16/17 08:59 05/18/17 09:40 75 MG Insulin Glargine (Lantus Solostar Pen) 35 units Q12 SC 05/16/17 21:00 06/15/17 20:59 05/18/17 09:44 35 UNITS Pantoprazole Sodium (Protonix Tab) 40 mg QAM PO 05/17/17 09:00 06/16/17 08:59 05/18/17 09:43 40 MG Apixaban (Eliquis Tab) 5 mg BID PO 05/16/17 21:00 06/15/17 20:59 05/18/17 09:41 5 MG Miscellaneous (Fentanyl Patch Remove & Waste) 1 ea Q3D N/A 05/18/17 08:59 06/17/17 08:58 05/18/17 09:29 1 EA Miscellaneous Information (Check Fentanyl Patch Placement) 1 ea QS N/A 05/17/17 00:00 06/16/17 00:00 05/18/17 09:29 1 EA Furosemide 80 mg/ Albumin Human 58 ml @ 54 mls/hr TID IV 05/17/17 09:00 05/20/17 08:59 05/18/17 09:33 54 MLS/HR Ergocalciferol (Vitamin D Cap) 50,000 interunit DAILY PO 05/17/17 09:00 05/24/17 08:59 05/18/17 09:44 50,000 INTERUNIT Nystatin (Mycostatin Powder) 1 appln DAILY EXT 05/18/17 12:00 06/17/17 11:59 Miscellaneous Information (Nursing Verbal Med Order) 1 ea ONE ONCE N/A 05/18/17 13:15 05/18/17 13:16 UNV Physical Exam Date Time Temp Pulse Resp B/P (MAP) Pulse Ox O2 Delivery O2 Flow Rate FiO2 05/18/17 12:00 Room Air 05/18/17 10:50 36.8 69 20 128/71 (90) 92 Room Air 05/18/17 10:43 36.7 63 22 96 05/18/17 10:19 36.7 63 22 96 05/18/17 08:00 Room Air 05/18/17 04:18 36.7 63 22 141/86 (104) 96 Room Air 05/18/17 04:15 95 Room Air 05/18/17 00:41 37.0 66 21 122/84 (97) 96 Room Air 05/18/17 00:10 96 Room Air 05/17/17 20:00 95 Room Air 05/17/17 19:40 36.3 67 18 133/83 (100) 95 Room Air 05/17/17 16:20 36.8 89 22 132/84 (100) 93 Room Air 05/17/17 16:00 Room Air General: The patient is sitting in a hospital bedss. Alert, cooperative and appropriate to all questions. HEENT: Pupils equal and reactive to light. Sclera clear, EOM intact. Neck: Supple, No JVD noted Chest: CTA in all weber. No deformity Heart: RRR without murmurs, S3, S4, thrills, rubs or heaves Extremities: Patient again demonstrates a severe +3-4 pitting edema of both lower extremities. There are multiple ulcerations noted on the right lower extremity measuring 17 x 17 in the right calf region. There is no active drainage or periwound erythema noted at this time. There is an additional ulceration of the dorsal aspect of the right foot measuring 8 x 8 cm. Minimal central sloughed no periwound erythema or active drainage noted. There is a large collapsed blister formation noted on the left anterior lower extremity measuring 17 x 9 cm. There is minimal central slough noted. No periwound erythema or active drainage present. There is no change in the patient's KELLY since prior visit 2 weeks ago. Neurological: Patient is alert oriented 3 no focal deficits noted. Laboratory Results Last 24 Hours Test 05/17/17 16:22 05/17/17 20:39 05/17/17 21:20 05/18/17 06:36 Bedside Glucose 89 mg/dl 74 mg/dl Urine Random Creatinine 34.0 mg/dl Urine Random Total Protein 134.3 mg/dl Urine Protein/Creatinine Ratio 4.0 White Blood Count 6.03 K/uL Red Blood Count 3.45 M/uL Hemoglobin 8.4 g/dL Hematocrit 28.6 % Mean Corpuscular Volume 82.9 fL Mean Corpuscular Hemoglobin 24.3 pg Mean Corpuscular Hemoglobin Concent 29.4 g/dl Platelet Count 177 K/uL Mean Platelet Volume 9.6 fL Neutrophils (%) (Auto) 67.7 % Lymphocytes (%) (Auto) 16.7 % Monocytes (%) (Auto) 8.8 % Eosinophils (%) (Auto) 6.3 % Basophils (%) (Auto) 0.5 % Neutrophils # (Auto) 4.08 K/uL Lymphocytes # (Auto) 1.01 K/uL Monocytes # (Auto) 0.53 K/uL Eosinophils # (Auto) 0.38 K/uL Basophils # (Auto) 0.03 K/uL RDW Standard Deviation 55.8 fL RDW Coefficient of Variation 18.4 % Immature Granulocyte % (Auto) 0.0 % Immature Granulocyte # (Auto) 0.00 K/uL Red Blood Cell Morphology Unremarkable Sodium Level 142 mmol/L Potassium Level 4.2 mmol/L Chloride Level 111 mmol/L Carbon Dioxide Level 23 mmol/L Anion Gap 8.0 mmol/L Blood Urea Nitrogen 58 mg/dl Creatinine 3.00 mg/dl Est Creatinine Clear Calc Drug Dose 51.8 ml/min Estimated GFR () 25.5 Estimated GFR (Non- 22.0 BUN/Creatinine Ratio 19.4 Random Glucose 54 mg/dl Calcium Level 8.0 mg/dl Iron Level 29 mcg/dl Total Iron Binding Capacity 292 mcg/dl Ferritin 47.1 ng/ml Total Bilirubin 0.4 mg/dl Aspartate Amino Transf (AST/SGOT) 13 U/L Alanine Aminotransferase (ALT/SGPT) 13 U/L Alkaline Phosphatase 190 U/L Total Protein 7.8 gm/dl Albumin 2.9 gm/dl Globulin 4.9 gm/dl Albumin/Globulin Ratio 0.6 Test 05/18/17 06:45 05/18/17 07:25 05/18/17 11:38 Bedside Glucose 63 mg/dl 78 mg/dl 78 mg/dl Assessment & Plan Assessment: Severe peripheral lymphedema bilateral lower extremities Ulceration right lower extremity Ulceration right great toe Ulceration dorsal aspect right foot Plan: At this time all sites required debridement. With the patient's permission after the application of topical Xylocaine 4%.the left lower extremity blister formation was debrided With scissors and forceps. Minimal Bleeding occurred which was controlled direct pressure. No subcutaneous tissue was removed. All sites of be dressed with Aquacel Ag and gauze changed twice daily. A coban light compression wrap was applied to the left lower extremity. The right lower extremity was not wrapped due to the presence of thrombus formation. This represented a non-excisional debridement of 63 cm.
[2017-05-18] MEDS ORDERED: GABAPENTIN 100 MG CAP PO ONE (13:45)
--- NOTE | 2017-05-18 17:08 | Progress Note ---
Internal Med Progress Note Date of Service: May 18, 2017. Provider Documentation: SUBJECTIVE: patient seen and examined at bedside. sitting on bed. periodically with pain of right lower extremity but no distress OBJECTIVE: General Appearance: no acute distress Head: normocephalic, atraumatic Eyes: normal inspection, EOMI, sclerae normal ENT: hearing grossly normal, pharynx normal Neck: supple, no adenopathy, trachea midline, + JVD Respiratory/Chest: chest non-tender, lungs clear, no respiratory distress, no accessory muscle use Cardiovascular: regular rate, rhythm Abdomen/GI: normal bowel sounds, soft Back: normal inspection, no CVA tenderness Extremities: no calf tenderness, Significant LE swelling, R>L, extending up to scrotal area Neurologic/Psych: no motor deficits Skin: Skin hypertrophied any discolored from venous stasis. Presence of 3x3cm well-circumscribed, ulcerated lesion on L anterior tamayo with clear drainage. 1x1cm scabbed lesion on L hemiscrotum. Presence of healing wounds on bilateral posterior calf, R lateral foot. 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 BLE cellulitis -recent infection with Pseudomonas, Alcaligenes, and Enterococcus. As per ID consult: patient being restarted on amoxicillin and ciprofloxacin likely in the range of 7-14 days -wound care debrided blisters on 05/18/17 Bilateral lower extremity swelling and pain -Multifactorial with h/o lymphedema, CHF, CKD, dietary non-compliance, missing diuretic at alf - DVT studies negative on 05/16/17, patient is on Eliquis already, can re scan with ultrasound for pain but unlikely to be informative for new findings, will order ultrasound today 05/18/17 -pain control with Lyrica, gabapentin, Fentanyl -nephrology consult managing swelling with Lasix and albumin Acute on chronic systolic/diastolic HF: -Lasix with albumin Exertional chest pain: resolved DM II: -Hgb a1c of 7.6 in December 2016 -Ordered hgb a1c -Continued patients home dose of Lantus. SSI. -BG checks AC HS -Diabetic education CKD Stage IV -monitor GFR Chronic A Fib: -Continue home dose of Eliquis; on last admission and this admissionthere have been cardiology recommendations to continue with Eliquis, however given renal function and weight patient may benefit from coumadin, have inquired with pharmacy on how to transition from Apixaban to Coumadin. likely will need transition with IV heparin to coumadin if patient agrees. -Coreg for heart rate control H/o R DVT/PE: - history of IVC filter -on Eliquis HTN: -Stable -Continue home meds Hypothyroidism: -Continue levothyroxine DVT Ppx: Eliquis Code status: FULL PCP: Damián Dispo: SW consulted to help with discharge placement back to [facility] Vital Signs: Date Time Temp Pulse Resp B/P (MAP) Pulse Ox O2 Delivery O2 Flow Rate FiO2 05/18/17 16:01 36.6 63 18 134/75 (94) 98 Room Air 05/18/17 12:00 Room Air 05/18/17 10:50 36.8 69 20 128/71 (90) 92 Room Air 05/18/17 10:43 36.7 63 22 96 05/18/17 10:19 36.7 63 22 96 05/18/17 08:00 Room Air 05/18/17 04:18 36.7 63 22 141/86 (104) 96 Room Air 05/18/17 04:15 95 Room Air 05/18/17 00:41 37.0 66 21 122/84 (97) 96 Room Air 05/18/17 00:10 96 Room Air 05/17/17 20:00 95 Room Air 05/17/17 19:40 36.3 67 18 133/83 (100) 95 Room Air Lab Results: Results Past 24 Hours Test 05/17/17 20:39 05/17/17 21:20 05/18/17 06:36 05/18/17 06:45 Range/Units Bedside Glucose 74 63 70-99 mg/dl Urine Random Creatinine 34.0 mg/dl Urine Random Total Protein 134.3 0-11.9 mg/dl Urine Protein/Creatinine Ratio 4.0 0-0.2 White Blood Count 6.03 4.8-10.8 K/uL Red Blood Count 3.45 4.7-6.1 M/uL Hemoglobin 8.4 14.0-18.0 g/dL Hematocrit 28.6 42-52 % Mean Corpuscular Volume 82.9 80-100 fL Mean Corpuscular Hemoglobin 24.3 25-34 pg Mean Corpuscular Hemoglobin Concent 29.4 32-36 g/dl Platelet Count 177 130-400 K/uL Mean Platelet Volume 9.6 7.4-10.4 fL Neutrophils (%) (Auto) 67.7 % Lymphocytes (%) (Auto) 16.7 % Monocytes (%) (Auto) 8.8 % Eosinophils (%) (Auto) 6.3 % Basophils (%) (Auto) 0.5 % Neutrophils # (Auto) 4.08 1.4-6.5 K/uL Lymphocytes # (Auto) 1.01 1.2-3.4 K/uL Monocytes # (Auto) 0.53 0.11-0.59 K/uL Eosinophils # (Auto) 0.38 0-0.5 K/uL Basophils # (Auto) 0.03 0-0.2 K/uL RDW Standard Deviation 55.8 36.4-46.3 fL RDW Coefficient of Variation 18.4 11.5-14.5 % Immature Granulocyte % (Auto) 0.0 % Immature Granulocyte # (Auto) 0.00 0.00-0.02 K/uL Red Blood Cell Morphology Unremarkable Sodium Level 142 136-145 mmol/L Potassium Level 4.2 3.5-5.1 mmol/L Chloride Level 111 98-107 mmol/L Carbon Dioxide Level 23 21-32 mmol/L Anion Gap 8.0 3-11 mmol/L Blood Urea Nitrogen 58 7-18 mg/dl Creatinine 3.00 0.60-1.40 mg/dl Est Creatinine Clear Calc Drug Dose 51.8 ml/min Estimated GFR () 25.5 Estimated GFR (Non- 22.0 BUN/Creatinine Ratio 19.4 10-20 Random Glucose 54 70-99 mg/dl Calcium Level 8.0 8.5-10.1 mg/dl Iron Level 29 35-175 mcg/dl Total Iron Binding Capacity 292 250-450 mcg/dl Ferritin 47.1 8.0-388.0 ng/ml Total Bilirubin 0.4 0.2-1 mg/dl Aspartate Amino Transf (AST/SGOT) 13 15-37 U/L Alanine Aminotransferase (ALT/SGPT) 13 12-78 U/L Alkaline Phosphatase 190 45-117 U/L Total Protein 7.8 6.4-8.2 gm/dl Albumin 2.9 3.4-5.0 gm/dl Globulin 4.9 2.5-4.0 gm/dl Albumin/Globulin Ratio 0.6 0.9-2 Test 05/18/17 07:10 05/18/17 07:25 05/18/17 11:38 05/18/17 13:50 Range/Units Bedside Glucose 65 78 78 70-99 mg/dl Test 05/18/17 16:37 Range/Units Bedside Glucose 115 70-99 mg/dl
--- NOTE | 2017-05-18 17:40 | Infectious Disease Progress Nt ---
Progress Note Date of Service May 18, 2017. Subjective Pt evaluation today including: conversation w/ patient, physical exam, chart review, lab review, review of studies, conversation w/ managed services sales consultant, review of inpatient medication list patient complaining of mild to moderate pain in his lower extremities. Remains afebrile. No other new systemic complaints. All Other Systems: Reviewed and Negative Medications Current Inpatient Medications Medications (Trade) Dose Ordered Sig/Miguel Route Start Time Stop Time Status Last Admin Dose Admin Ondansetron HCl (Zofran Inj) 4 mg Q6H PRN IV 05/16/17 17:30 06/15/17 17:29 Insulin Aspart (novoLOG ASPART) SLIDING SCALE If C... ACHS SC 05/16/17 21:00 06/15/17 20:59 05/18/17 13:32 8 UNITS Glucose (Glucose 40% Gel) 15-30 GRAMS 15 GRAMS... UD PRN PO 05/16/17 17:30 06/15/17 17:29 Glucose (Glucose Chew Tab) 4-8 Tablets 4 Tabl... UD PRN PO 05/16/17 17:30 06/15/17 17:29 Dextrose (Dextrose 50% 50ML Syringe) 25-50ML OF 50% DW IV FOR... UD PRN IV 05/16/17 17:30 06/15/17 17:29 Glucagon (Glucagon Inj) 1 mg UD PRN SQ 05/16/17 17:30 06/15/17 17:29 Acetaminophen (Tylenol Tab) 500 mg Q4 PRN PO 05/16/17 19:15 06/15/17 19:14 Acetaminophen/ Codeine Phosphate (Tylenol w/ Codeine #3 Tab) 1 tab Q6H PRN PO 05/16/17 19:15 06/15/17 19:14 05/18/17 11:21 1 TAB Albuterol (Ventolin Hfa Inhaler) 2 puffs Q6H PRN INH 05/16/17 19:15 06/15/17 19:14 Amoxicillin (Amoxil Cap) 500 mg TID PO 05/16/17 21:00 05/26/17 20:59 05/18/17 14:04 500 MG Atorvastatin Calcium (Lipitor Tab) 80 mg HS PO 05/16/17 21:00 06/15/17 20:59 05/17/17 19:57 80 MG Bisacodyl (Dulcolax Supp) 10 mg Q24H PRN [place] 05/16/17 19:15 06/15/17 19:14 Carvedilol (Coreg Tab) 25 mg BID PO 05/16/17 21:00 06/15/17 20:59 05/18/17 09:38 25 MG Ciprofloxacin (Cipro Tab) 500 mg BID PO 05/16/17 21:00 05/26/17 20:59 05/18/17 09:36 500 MG Fentanyl (Duragesic Patch) 12 mcg Q72H TD 05/18/17 09:00 06/01/17 08:59 05/18/17 09:46 12 MCG Hydroxyzine HCl (Vistaril Tab) 25 mg QID PRN PO 05/16/17 19:15 06/15/17 19:14 05/17/17 19:52 25 MG Loratadine (Claritin Tab) 10 mg DAILY PO 05/17/17 09:00 06/16/17 08:59 Magnesium Hydroxide (Milk Of Magnesia Susp) 30 ml UD PRN PO 05/16/17 19:15 06/15/17 19:14 Nitroglycerin (Nitrostat Tab) 0.4 mg UD PRN UT 05/16/17 19:15 06/15/17 19:14 Ondansetron HCl (Zofran Tab) 4 mg Q8 PRN PO 05/16/17 19:15 06/15/17 19:14 Pregabalin (Lyrica Cap) 75 mg BID PO 05/16/17 21:00 06/15/17 20:59 05/18/17 09:42 75 MG Senna/Docusate Sodium (Senokot S Tab) 2 tab HS PO 05/16/17 21:00 06/15/17 20:59 05/17/17 19:56 2 TAB Trazodone HCl (Desyrel Tab) 50 mg HS PO 05/16/17 21:00 06/15/17 20:59 05/17/17 19:56 50 MG Ursodiol (Actigall Cap) 300 mg BID PO 05/16/17 21:00 06/15/17 20:59 05/18/17 09:00 300 MG Venlafaxine HCl (effeXOR TAB) 75 mg QAM PO 05/17/17 09:00 06/16/17 08:59 05/18/17 09:40 75 MG Insulin Glargine (Lantus Solostar Pen) 35 units Q12 SC 05/16/17 21:00 06/15/17 20:59 05/18/17 09:44 35 UNITS Pantoprazole Sodium (Protonix Tab) 40 mg QAM PO 05/17/17 09:00 06/16/17 08:59 05/18/17 09:43 40 MG Apixaban (Eliquis Tab) 5 mg BID PO 05/16/17 21:00 06/15/17 20:59 05/18/17 09:41 5 MG Miscellaneous (Fentanyl Patch Remove & Waste) 1 ea Q3D N/A 05/18/17 08:59 06/17/17 08:58 05/18/17 09:29 1 EA Miscellaneous Information (Check Fentanyl Patch Placement) 1 ea QS N/A 05/17/17 00:00 06/16/17 00:00 05/18/17 09:29 1 EA Furosemide 80 mg/ Albumin Human 58 ml @ 54 mls/hr TID IV 05/17/17 09:00 05/20/17 08:59 05/18/17 14:03 54 MLS/HR Ergocalciferol (Vitamin D Cap) 50,000 interunit DAILY PO 05/17/17 09:00 05/24/17 08:59 05/18/17 09:44 50,000 INTERUNIT Nystatin (Mycostatin Powder) 1 appln DAILY EXT 05/18/17 12:00 06/17/17 11:59 Objective Vital Signs Date Time Temp Pulse Resp B/P (MAP) Pulse Ox O2 Delivery O2 Flow Rate FiO2 05/18/17 17:30 Room Air 05/18/17 16:01 36.6 63 18 134/75 (94) 98 Room Air 05/18/17 12:00 Room Air 05/18/17 10:50 36.8 69 20 128/71 (90) 92 Room Air 05/18/17 10:43 36.7 63 22 96 05/18/17 10:19 36.7 63 22 96 05/18/17 08:00 Room Air 05/18/17 04:18 36.7 63 22 141/86 (104) 96 Room Air 05/18/17 04:15 95 Room Air 05/18/17 00:41 37.0 66 21 122/84 (97) 96 Room Air 05/18/17 00:10 96 Room Air 05/17/17 20:00 95 Room Air 05/17/17 19:40 36.3 67 18 133/83 (100) 95 Room Air Physical Exam General Appearance: WD/WN, no apparent distress, + obese Eyes: normal inspection, EOMI, sclerae normal ENT: normal ENT inspection, pharynx normal Neck: supple, no adenopathy, thyroid normal, trachea midline Respiratory/Chest: chest non-tender, lungs clear, normal breath sounds, no respiratory distress Cardiovascular: regular rate, rhythm, no gallop, no murmur Abdomen: normal bowel sounds, non tender, soft, no organomegaly Extremities: + inflammation, + swelling Neurologic/Psychiatric: alert, oriented x 3 Skin: no rash, + pertinent finding (slightly improved LE erythema) Lymphatic: no adenopathy Laboratory Results Last 24 Hours Test 05/17/17 20:39 05/17/17 21:20 05/18/17 06:36 05/18/17 06:45 Bedside Glucose 74 mg/dl 63 mg/dl Urine Random Creatinine 34.0 mg/dl Urine Random Total Protein 134.3 mg/dl Urine Protein/Creatinine Ratio 4.0 White Blood Count 6.03 K/uL Red Blood Count 3.45 M/uL Hemoglobin 8.4 g/dL Hematocrit 28.6 % Mean Corpuscular Volume 82.9 fL Mean Corpuscular Hemoglobin 24.3 pg Mean Corpuscular Hemoglobin Concent 29.4 g/dl Platelet Count 177 K/uL Mean Platelet Volume 9.6 fL Neutrophils (%) (Auto) 67.7 % Lymphocytes (%) (Auto) 16.7 % Monocytes (%) (Auto) 8.8 % Eosinophils (%) (Auto) 6.3 % Basophils (%) (Auto) 0.5 % Neutrophils # (Auto) 4.08 K/uL Lymphocytes # (Auto) 1.01 K/uL Monocytes # (Auto) 0.53 K/uL Eosinophils # (Auto) 0.38 K/uL Basophils # (Auto) 0.03 K/uL RDW Standard Deviation 55.8 fL RDW Coefficient of Variation 18.4 % Immature Granulocyte % (Auto) 0.0 % Immature Granulocyte # (Auto) 0.00 K/uL Red Blood Cell Morphology Unremarkable Sodium Level 142 mmol/L Potassium Level 4.2 mmol/L Chloride Level 111 mmol/L Carbon Dioxide Level 23 mmol/L Anion Gap 8.0 mmol/L Blood Urea Nitrogen 58 mg/dl Creatinine 3.00 mg/dl Est Creatinine Clear Calc Drug Dose 51.8 ml/min Estimated GFR () 25.5 Estimated GFR (Non- 22.0 BUN/Creatinine Ratio 19.4 Random Glucose 54 mg/dl Calcium Level 8.0 mg/dl Iron Level 29 mcg/dl Total Iron Binding Capacity 292 mcg/dl Ferritin 47.1 ng/ml Total Bilirubin 0.4 mg/dl Aspartate Amino Transf (AST/SGOT) 13 U/L Alanine Aminotransferase (ALT/SGPT) 13 U/L Alkaline Phosphatase 190 U/L Total Protein 7.8 gm/dl Albumin 2.9 gm/dl Globulin 4.9 gm/dl Albumin/Globulin Ratio 0.6 Test 05/18/17 07:10 05/18/17 07:25 05/18/17 11:38 05/18/17 13:50 Bedside Glucose 65 mg/dl 78 mg/dl 78 mg/dl Test 05/18/17 16:37 Bedside Glucose 115 mg/dl Assessment and Plan 56-year-old male with lower extremity severe edema with leg ulcerations with recent infection with Pseudomonas, Alcaligenes, and Enterococcus. Would recommend continuing patient on amoxicillin and ciprofloxacin, likely in the range of 7-14 days. Will follow.
[2017-05-18] MEDS: NYSTATIN POWDER 15GM BTL EXT SCH (17:53)
[2017-05-18] MEDS: DOCUSATE SODIUM/SENNA 50/8.6MG TAB PO SCH (20:07)
[2017-05-18] MEDS: ATORVASTATIN 40 MG TAB PO SCH (20:08)
[2017-05-18] MEDS: TRAZODONE HCL 50 MG TAB PO SCH (20:08)
[2017-05-19] VITALS: O2SAT 95
[2017-05-19] MEDS: ACETAMINOPHEN/CODEINE 300/30MG TAB PO PRN ×3 (03:36→18:03)
[2017-05-19 06:57] LABS: BASO % 0.5 %; BASO ABS # 0.03 K/uL (0-0.2); EOS % 6.9 %; HEMATOCRIT 27.3 % (42-52); IG% 0.2 %; LYMPH ABS # 1.06 K/uL (1.2-3.4); MEAN CELL VOLUME 82.2 fL (80-100); MEAN CORPUSCULAR HEMOGLOBIN 25.6 pg (25-34); MEAN CORPUSCULAR HGB CONC 31.1 g/dl (32-36); MEAN PLATELET VOLUME 9.5 fL (7.4-10.4); MONO % 13.7 %; NEUT % 61.7 %; PLATELET COUNT 184 K/uL (130-400); RED BLOOD COUNT 3.32 M/uL (4.7-6.1); WHITE BLOOD COUNT 6.22 K/uL (4.8-10.8)
[2017-05-19 07:11] LABS: PARTIAL THROMBOPLASTIN RATIO 1.4
[2017-05-19 07:23] LABS: BUN/CREATININE RATIO 19.2 (10-20); CALCIUM 8.5 mg/dl (8.5-10.1); CREATININE 3.2 mg/dl (0.60-1.40); POTASSIUM 4.2 mmol/L (3.5-5.1)
[2017-05-19 07:26] LABS: ALB/GLOB RATIO 0.6 (0.9-2)
[2017-05-19 07:41] LABS: ANISOCYTOSIS PRESENT; COMPLETE YES; HYPOCHROMIA PRESENT; POLYCHROMASIA 1+
[2017-05-19 07:45] VITALS: BP 128/81; PULSE 64; TEMP 36.7; O2SAT 96
[2017-05-19] MEDS ORDERED: GABAPENTIN 600 MG TAB PO SCH (08:00)
[2017-05-19] MEDS: INSULIN ASPART 100 UNITS/ML 3 ML PEN SC SCH ×4 (08:48→21:00)
[2017-05-19] MEDS: NYSTATIN POWDER 15GM BTL EXT SCH (08:50)
[2017-05-19] MEDS: CHECK FENTANYL PATCH PLACEMENT SCH ×3 (08:54→23:28)
[2017-05-19] MEDS: LORATADINE 10 MG TAB PO SCH (08:54)
[2017-05-19] MEDS: URSODIOL 300 MG CAP PO SCH ×2 (08:55→20:28)
[2017-05-19] MEDS: CIPROFLOXACIN 500 MG TAB PO SCH ×2 (08:56→20:29)
[2017-05-19] MEDS: AMOXICILLIN 500 MG CAP PO SCH ×3 (08:56→20:28)
[2017-05-19] MEDS: CARVEDILOL 25 MG TAB PO SCH ×2 (08:56→20:29)
[2017-05-19] MEDS: VENLAFAXINE HCL 50 MG TAB PO SCH (08:57)
[2017-05-19] MEDS: APIXABAN 2.5 MG TAB PO SCH (08:58)
[2017-05-19] MEDS: PREGABALIN 75 MG CAP PO SCH ×2 (08:59→20:36)
[2017-05-19] MEDS: PANTOprazole SOD 40 MG TAB PO SCH (08:59)
[2017-05-19] MEDS: ERGOCALCIFEROL 50,000 INTER.UNIT CAP PO SCH (09:00)
[2017-05-19 09:10] VITALS: BP 136/86; PULSE 64; TEMP 36.5; O2SAT 95
[2017-05-19] MEDS: ALBUMIN 25% 50 ML with FUROSEMIDE INJ 80 MG IV SCH ×6 (09:14→20:21)
[2017-05-19] MEDS ORDERED: PHARMACY GLYCEMIC MGMT CONSULT SCH (10:12)
[2017-05-19] MEDS ORDERED: INSULIN GLARGINE SOLOSTAR 100 UNITS/ML 3 ML PEN SC ONE (10:15)
--- NOTE | 2017-05-19 10:22 | Pharmacy Progress Note ---
Glycemic Control Intl Consult Date of Service May 19, 2017. Scope Glycemic Pharmacist consulted by Dr Mason on 05/19/17 for glycemic control and to write orders per [facility] inpatient glycemic control protocol Objective Weight (Kilograms): 193.300 Accuchecks BSG (last 24hrs): Test 05/18/17 11:38 05/18/17 16:37 05/18/17 19:57 05/19/17 06:34 Bedside Glucose 78 mg/dl (70-99) 115 mg/dl (70-99) 95 mg/dl (70-99) Random Glucose 57 mg/dl (70-99) Test 05/19/17 07:40 05/19/17 08:31 05/19/17 08:47 05/19/17 09:05 Bedside Glucose 59 mg/dl (70-99) 51 mg/dl (70-99) 55 mg/dl (70-99) 61 mg/dl (70-99) Test 05/19/17 09:31 Bedside Glucose 71 mg/dl (70-99) Laboratory Data (last 24hrs) Test 05/19/17 06:34 Anion Gap 10.0 mmol/L BUN/Creatinine Ratio 19.2 Blood Urea Nitrogen 61 mg/dl Creatinine 3.20 mg/dl Potassium Level 4.2 mmol/L Sodium Level 140 mmol/L White Blood Count 6.22 K/uL Red Blood Count 3.32 M/uL Hemoglobin 8.5 g/dL Hematocrit 27.3 % Mean Corpuscular Volume 82.2 fL Mean Corpuscular Hemoglobin 25.6 pg Mean Corpuscular Hemoglobin Concent 31.1 g/dl Platelet Count 184 K/uL Mean Platelet Volume 9.5 fL Neutrophils (%) (Auto) 61.7 % Lymphocytes (%) (Auto) 17.0 % Monocytes (%) (Auto) 13.7 % Eosinophils (%) (Auto) 6.9 % Basophils (%) (Auto) 0.5 % Neutrophils # (Auto) 3.84 K/uL Lymphocytes # (Auto) 1.06 K/uL Monocytes # (Auto) 0.85 K/uL Eosinophils # (Auto) 0.43 K/uL Basophils # (Auto) 0.03 K/uL HbA1c Test 05/17/17 05:31 Hemoglobin A1c 7.5 % (4.5-5.6) H Recent Pertinent Medications Outpatient Anti-diabetic Regimen: * Levemir 35 units SQ BID * Novolog 15 units TID with meals * A1c = 7.5 % 05/17/17 The patient is currently receiving: * Basal insulin: Lantus 35 units every 12 hours * Correctional Insulin: Novolog Correction per scale ACHS Goal Range: Low 120 mg/dL - High 160 mg/dL Correction Factor: 20 mg/dL/unit * Prandial insulin: Per carb ratio of 1 unit per 7 grams CHO consumed Risk Factors for Insulin Resistance: * Infection: BLE cellulitis/ulcerations - PO Cipro and Amoxicillin * Diet: AHA Assessment & Plan ASSESSMENT: * 56 year old morbidly obese type 2 diabetic, admitted for BLE Cellulitis, experiencing hypogylcemia on home insulin regimen as inpatient. * Insulin regimen needs decreased to prevent further hypoglycemia * AM Fasting BSG = 51 therefore Basal insulin needs decreased - will give a reduced AM dose then reduce total daily dose starting tonight, based on BSG * BSGs trending downwards throughout the day (insulin stacking) therefore Loosen CF/CR * ADA & AACE recommend a goal blood sugar range 140-180 mg/dl for the majority of critically ill & non-critically ill patients. However, more stringent targets may be selected in individual cases. Will utilize more stringent goal of 110-140mg/dl based on patient age & comorbidities. Additionally, tighter glycemic control is warranted to facilitate wound/infection healing. PLAN FOR INPATIENT GLYCEMIC CONTROL: * DECREASE Basal insulin with LANTUS SQ BID * Lantus 15 units SQ x 1 dose this morning then * 25 units SQ BID for BSG < 180mg/dl * 35 units SQ BID for BSG 180mg/dl or greater * Correctional Insulin with NOVOLOG per scale ACHS or Q6hrs while NPO * Goal Range: Low 120 mg/dL - High 150 mg/dL * LOOSEN: Correction Factor: 30 mg/dL/unit * LOOSEN: Nutritional / Prandial insulin per carb ratio of 1 unit per 10 grams CHO consumed DISCHARGE RECOMMENDATIONS: * A1c 7.5% acceptable for patient with current comorbidities. No changes in outpatient regimen at this time. * Please note that the plan above was derived based on current level of insulin resistance and hospital stress. These recommendations are appropriate for inpatient admission only. Plan of care upon discharge will need to be reassessed to avoid potential outpatient hypo/hyperglycemia. Thank you.
[2017-05-19 13:18] VITALS: Ht 203.2 cm; Wt 193.3 kg
[2017-05-19 15:00] VITALS: BP 132/83; PULSE 77; TEMP 36.6; O2SAT 95
[2017-05-19] MEDS: ACETAMINOPHEN 500 MG TAB PO PRN ×2 (15:54→20:38)
[2017-05-19 17:12] VITALS: BP 101/66; PULSE 63; TEMP 36.2; O2SAT 92
[2017-05-19] MEDS: WARFARIN SOD 5 MG TAB PO SCH (18:03)
--- NOTE | 2017-05-19 19:09 | Progress Note ---
Internal Med Progress Note Date of Service: May 19, 2017. Provider Documentation: SUBJECTIVE: patient seen and examined at bedside. sitting on bed. periodically with pain of right lower extremity but no distress. patient could not tolerate going to ultrasound for re-imaging whether right leg DVT getting greater in size because of scrotal pain. have also discussed with patient about transitioning to warfarin from Eliquis due to chronic kidney disease. Patient agrees to IV heparin drip and bridge to coumadin. OBJECTIVE: General Appearance: no acute distress Head: normocephalic, atraumatic Eyes: normal inspection, EOMI, sclerae normal ENT: hearing grossly normal, pharynx normal Neck: supple, no adenopathy, trachea midline, + JVD Respiratory/Chest: chest non-tender, lungs clear, no respiratory distress, no accessory muscle use Cardiovascular: regular rate, rhythm Abdomen/GI: normal bowel sounds, soft Back: normal inspection, no CVA tenderness Extremities: no calf tenderness, Significant LE swelling, R>L, extending up to scrotal area Neurologic/Psych: no motor deficits Skin: chronic swelling of lower extremities with chronic skin changes and skin breaks ASSESSMENT & PLAN: This is a 56yo M with a PMH of HTN, DM II, h/o chronic R DVT, 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 BLE cellulitis -recent infection with Pseudomonas, Alcaligenes, and Enterococcus. As per ID consult: patient being restarted on amoxicillin and ciprofloxacin likely in the range of 7-14 days -wound care debrided blisters on 05/18/17 History of Right lower extremity DVT/PE: - history of IVC filter -have been on Eliquis in recent past; on last admission and this admission there have been cardiology recommendations to continue with Eliquis, however given renal function and weight patient may benefit from coumadin, have inquired with pharmacy on how to transition from Apixaban to Coumadin. -have also discussed with patient about transitioning to warfarin from Eliquis due to chronic kidney disease. Patient agrees to IV heparin drip and bridge to coumadin Bilateral lower extremity swelling and pain -Multifactorial with h/o lymphedema, CHF, CKD, dietary non-compliance, missing di[facility]tic at [facility] - DVT studies negative on 05/16/17 for more involvement of right leg DVT, could not tolerate repeat scan ordered on 05/19/17 due to scrotal discomfort -pain control with Lyrica,Fentanyl -nephrology consult managing swelling with Lasix and albumin -scrotal sling ordered Acute on chronic systolic/diastolic HF: -Lasix with albumin Chronic A Fib: -anticoagulation -Coreg for heart rate control CKD Stage IV -monitor GFR HTN: -Stable -Continue home meds Hypothyroidism: -Continue levothyroxine DM II: -Hgb a1c of 7.6 in December 2016 -Continued patients home dose of Lantus. SSI. -BG checks AC HS -Diabetic education DVT Ppx: pharmacological anticoagulation FULL CODE PCP: Damián Dispo: SW consulted to help with discharge placement back to [facility] when medically improved Vital Signs: Date Time Temp Pulse Resp B/P (MAP) Pulse Ox O2 Delivery O2 Flow Rate FiO2 05/19/17 17:12 36.2 63 20 101/66 (78) 92 Room Air 05/19/17 15:00 36.6 77 20 132/83 (99) 95 05/19/17 09:10 36.5 64 14 136/86 (103) 95 Room Air 05/19/17 08:00 Room Air 05/19/17 07:45 36.7 64 20 128/81 (97) 96 Room Air 05/19/17 00:00 95 Room Air 05/18/17 23:40 36.6 65 18 138/78 (98) 94 Room Air 05/18/17 20:21 144/80 (101) 05/18/17 19:35 Room Air Lab Results: Results Past 24 Hours Test 05/18/17 19:57 05/19/17 06:34 05/19/17 07:40 05/19/17 08:31 Range/Units Bedside Glucose 95 59 51 70-99 mg/dl White Blood Count 6.22 4.8-10.8 K/uL Red Blood Count 3.32 4.7-6.1 M/uL Hemoglobin 8.5 14.0-18.0 g/dL Hematocrit 27.3 42-52 % Mean Corpuscular Volume 82.2 80-100 fL Mean Corpuscular Hemoglobin 25.6 25-34 pg Mean Corpuscular Hemoglobin Concent 31.1 32-36 g/dl Platelet Count 184 130-400 K/uL Mean Platelet Volume 9.5 7.4-10.4 fL Neutrophils (%) (Auto) 61.7 % Lymphocytes (%) (Auto) 17.0 % Monocytes (%) (Auto) 13.7 % Eosinophils (%) (Auto) 6.9 % Basophils (%) (Auto) 0.5 % Neutrophils # (Auto) 3.84 1.4-6.5 K/uL Lymphocytes # (Auto) 1.06 1.2-3.4 K/uL Monocytes # (Auto) 0.85 0.11-0.59 K/uL Eosinophils # (Auto) 0.43 0-0.5 K/uL Basophils # (Auto) 0.03 0-0.2 K/uL RDW Standard Deviation 55.8 36.4-46.3 fL RDW Coefficient of Variation 18.3 11.5-14.5 % Immature Granulocyte % (Auto) 0.2 % Immature Granulocyte # (Auto) 0.01 0.00-0.02 K/uL Polychromasia 1+ Hypochromasia PRESENT Anisocytosis PRESENT Activated Partial Thromboplast Time 37.5 21.0-31.0 SECONDS Partial Thromboplastin Ratio 1.4 Sodium Level 140 136-145 mmol/L Potassium Level 4.2 3.5-5.1 mmol/L Chloride Level 106 98-107 mmol/L Carbon Dioxide Level 24 21-32 mmol/L Anion Gap 10.0 3-11 mmol/L Blood Urea Nitrogen 61 7-18 mg/dl Creatinine 3.20 0.60-1.40 mg/dl Est Creatinine Clear Calc Drug Dose 48.6 ml/min Estimated GFR () 23.6 Estimated GFR (Non- 20.4 BUN/Creatinine Ratio 19.2 10-20 Random Glucose 57 70-99 mg/dl Calcium Level 8.5 8.5-10.1 mg/dl Iron Level 34 35-175 mcg/dl Total Iron Binding Capacity 326 250-450 mcg/dl Transferrin 244 200-360 mg/dl Transferrin % Saturation 10 20-50 % Total Bilirubin 0.7 0.2-1 mg/dl Aspartate Amino Transf (AST/SGOT) 15 15-37 U/L Alanine Aminotransferase (ALT/SGPT) 11 12-78 U/L Alkaline Phosphatase 184 45-117 U/L Total Protein 8.6 6.4-8.2 gm/dl Albumin 3.2 3.4-5.0 gm/dl Globulin 5.4 2.5-4.0 gm/dl Albumin/Globulin Ratio 0.6 0.9-2 Test 05/19/17 08:47 05/19/17 09:05 05/19/17 09:31 05/19/17 11:20 Range/Units Bedside Glucose 55 61 71 78 70-99 mg/dl Test 05/19/17 15:58 Range/Units Bedside Glucose 79 70-99 mg/dl
[2017-05-19 19:59] LABS: BASO % 0.6 %; BASO ABS # 0.04 K/uL (0-0.2); EOS % 6.8 %; HEMATOCRIT 27.4 % (42-52); IG% 0.2 %; LYMPH ABS # 1.06 K/uL (1.2-3.4); MEAN CELL VOLUME 81.8 fL (80-100); MEAN CORPUSCULAR HEMOGLOBIN 25.7 pg (25-34); MEAN PLATELET VOLUME 9.4 fL (7.4-10.4); NEUT % 63.4 %; PLATELET COUNT 182 K/uL (130-400); RED BLOOD COUNT 3.35 M/uL (4.7-6.1); WHITE BLOOD COUNT 6.61 K/uL (4.8-10.8)
[2017-05-19 20:09] LABS: INR 1.3 (0.9-1.1); MEAN CORPUSCULAR HGB CONC 31.4 g/dl (32-36); PARTIAL THROMBOPLASTIN RATIO 1.4
--- NOTE | 2017-05-19 20:12 | Infectious Disease Progress Nt ---
Progress Note Date of Service May 19, 2017. Subjective Pt evaluation today including: conversation w/ patient, physical exam, chart review, lab review, review of studies, conversation w/ bridal stylist sales consultant, review of inpatient medication list Still with some pain in his right leg, otherwise offers no new complaints. Continues to tolerate antibiotics. No fever. All Other Systems: Reviewed and Negative Medications Current Inpatient Medications Medications (Trade) Dose Ordered Sig/Miguel Route Start Time Stop Time Status Last Admin Dose Admin Ondansetron HCl (Zofran Inj) 4 mg Q6H PRN IV 05/16/17 17:30 06/15/17 17:29 Insulin Aspart (novoLOG ASPART) SLIDING SCALE If C... ACHS SC 05/16/17 21:00 06/15/17 20:59 05/19/17 18:39 2 UNITS Glucose (Glucose 40% Gel) 15-30 GRAMS 15 GRAMS... UD PRN PO 05/16/17 17:30 06/15/17 17:29 Glucose (Glucose Chew Tab) 4-8 Tablets 4 Tabl... UD PRN PO 05/16/17 17:30 06/15/17 17:29 Dextrose (Dextrose 50% 50ML Syringe) 25-50ML OF 50% DW IV FOR... UD PRN IV 05/16/17 17:30 06/15/17 17:29 Glucagon (Glucagon Inj) 1 mg UD PRN SQ 05/16/17 17:30 06/15/17 17:29 Acetaminophen (Tylenol Tab) 500 mg Q4 PRN PO 05/16/17 19:15 06/15/17 19:14 05/19/17 15:54 500 MG Acetaminophen/ Codeine Phosphate (Tylenol w/ Codeine #3 Tab) 1 tab Q6H PRN PO 05/16/17 19:15 06/15/17 19:14 05/19/17 18:03 1 TAB Albuterol (Ventolin Hfa Inhaler) 2 puffs Q6H PRN INH 05/16/17 19:15 06/15/17 19:14 Amoxicillin (Amoxil Cap) 500 mg TID PO 05/16/17 21:00 05/26/17 20:59 05/19/17 15:25 500 MG Atorvastatin Calcium (Lipitor Tab) 80 mg HS PO 05/16/17 21:00 06/15/17 20:59 05/18/17 20:08 80 MG Bisacodyl (Dulcolax Supp) 10 mg Q24H PRN [place] 05/16/17 19:15 06/15/17 19:14 Carvedilol (Coreg Tab) 25 mg BID PO 05/16/17 21:00 06/15/17 20:59 05/19/17 08:56 25 MG Ciprofloxacin (Cipro Tab) 500 mg BID PO 05/16/17 21:00 05/26/17 20:59 05/19/17 08:56 500 MG Fentanyl (Duragesic Patch) 12 mcg Q72H TD 05/18/17 09:00 06/01/17 08:59 05/18/17 09:46 12 MCG Hydroxyzine HCl (Vistaril Tab) 25 mg QID PRN PO 05/16/17 19:15 06/15/17 19:14 05/17/17 19:52 25 MG Loratadine (Claritin Tab) 10 mg DAILY PO 05/17/17 09:00 06/16/17 08:59 Magnesium Hydroxide (Milk Of Magnesia Susp) 30 ml UD PRN PO 05/16/17 19:15 06/15/17 19:14 Nitroglycerin (Nitrostat Tab) 0.4 mg UD PRN [place] 05/16/17 19:15 06/15/17 19:14 Ondansetron HCl (Zofran Tab) 4 mg Q8 PRN PO 05/16/17 19:15 06/15/17 19:14 Pregabalin (Lyrica Cap) 75 mg BID PO 05/16/17 21:00 06/15/17 20:59 05/19/17 08:59 75 MG Senna/Docusate Sodium (Senokot S Tab) 2 tab HS PO 05/16/17 21:00 06/15/17 20:59 05/18/17 20:07 2 TAB Trazodone HCl (Desyrel Tab) 50 mg HS PO 05/16/17 21:00 06/15/17 20:59 05/18/17 20:08 50 MG Ursodiol (Actigall Cap) 300 mg BID PO 05/16/17 21:00 06/15/17 20:59 05/19/17 08:55 300 MG Venlafaxine HCl (effeXOR TAB) 75 mg QAM PO 05/17/17 09:00 06/16/17 08:59 05/19/17 08:57 75 MG Pantoprazole Sodium (Protonix Tab) 40 mg QAM PO 05/17/17 09:00 06/16/17 08:59 05/19/17 08:59 40 MG Miscellaneous (Fentanyl Patch Remove & Waste) 1 ea Q3D N/A 05/18/17 08:59 06/17/17 08:58 05/18/17 09:29 1 EA Miscellaneous Information (Check Fentanyl Patch Placement) 1 ea QS N/A 05/17/17 00:00 06/16/17 00:00 05/19/17 17:12 1 EA Furosemide 80 mg/ Albumin Human 58 ml @ 54 mls/hr TID IV 05/17/17 09:00 05/20/17 08:59 05/19/17 14:51 54 MLS/HR Ergocalciferol (Vitamin D Cap) 50,000 interunit DAILY PO 05/17/17 09:00 05/24/17 08:59 05/19/17 09:00 50,000 INTERUNIT Nystatin (Mycostatin Powder) 1 appln DAILY EXT 05/18/17 12:00 06/17/17 11:59 05/19/17 08:50 1 APPLN Miscellaneous Information (Consult Glycemic Management Pharmacy) 1 ea UD N/A 05/19/17 10:12 06/18/17 10:11 Insulin Glargine (Lantus Solostar Pen) Q12 SC 05/19/17 21:00 06/18/17 20:59 Warfarin Sodium (Coumadin Tab) 10 mg DAILY@16 PO 05/19/17 16:00 06/18/17 15:59 05/19/17 18:03 10 MG Heparin Sodium (Porcine) 51529 unit/Syringe 10 ml @ 10 mls/min TODAY@2100 ONCE IV 05/19/17 21:00 05/19/17 21:01 Heparin Sodium/ Dextrose 500 ml @ 49 mls/hr [id number] PRN IV 05/19/17 21:00 06/18/17 20:59 Objective Vital Signs Date Time Temp Pulse Resp B/P (MAP) Pulse Ox O2 Delivery O2 Flow Rate FiO2 05/19/17 17:12 36.2 63 20 101/66 (78) 92 Room Air 05/19/17 16:00 Room Air 05/19/17 15:00 36.6 77 20 132/83 (99) 95 05/19/17 09:10 36.5 64 14 136/86 (103) 95 Room Air 05/19/17 08:00 Room Air 05/19/17 07:45 36.7 64 20 128/81 (97) 96 Room Air 05/19/17 00:00 95 Room Air 05/18/17 23:40 36.6 65 18 138/78 (98) 94 Room Air 05/18/17 20:21 144/80 (101) Physical Exam General Appearance: WD/WN, no apparent distress, + obese Eyes: normal inspection, EOMI ENT: normal ENT inspection, pharynx normal Neck: supple, thyroid normal, trachea midline Respiratory/Chest: chest non-tender, lungs clear, normal breath sounds, no respiratory distress Cardiovascular: regular rate, rhythm, no gallop, no murmur Abdomen: normal bowel sounds, non tender, soft, no organomegaly Extremities: + inflammation, + swelling Neurologic/Psychiatric: alert, oriented x 3 Skin: normal color, + pertinent finding ( No worsening lower extremity erythema) Lymphatic: no adenopathy Laboratory Results Last 24 Hours Test 05/19/17 06:34 05/19/17 07:40 05/19/17 08:31 05/19/17 08:47 White Blood Count 6.22 K/uL Red Blood Count 3.32 M/uL Hemoglobin 8.5 g/dL Hematocrit 27.3 % Mean Corpuscular Volume 82.2 fL Mean Corpuscular Hemoglobin 25.6 pg Mean Corpuscular Hemoglobin Concent 31.1 g/dl Platelet Count 184 K/uL Mean Platelet Volume 9.5 fL Neutrophils (%) (Auto) 61.7 % Lymphocytes (%) (Auto) 17.0 % Monocytes (%) (Auto) 13.7 % Eosinophils (%) (Auto) 6.9 % Basophils (%) (Auto) 0.5 % Neutrophils # (Auto) 3.84 K/uL Lymphocytes # (Auto) 1.06 K/uL Monocytes # (Auto) 0.85 K/uL Eosinophils # (Auto) 0.43 K/uL Basophils # (Auto) 0.03 K/uL RDW Standard Deviation 55.8 fL RDW Coefficient of Variation 18.3 % Immature Granulocyte % (Auto) 0.2 % Immature Granulocyte # (Auto) 0.01 K/uL Polychromasia 1+ Hypochromasia PRESENT Anisocytosis PRESENT Activated Partial Thromboplast Time 37.5 SECONDS Partial Thromboplastin Ratio 1.4 Sodium Level 140 mmol/L Potassium Level 4.2 mmol/L Chloride Level 106 mmol/L Carbon Dioxide Level 24 mmol/L Anion Gap 10.0 mmol/L Blood Urea Nitrogen 61 mg/dl Creatinine 3.20 mg/dl Est Creatinine Clear Calc Drug Dose 48.6 ml/min Estimated GFR () 23.6 Estimated GFR (Non- 20.4 BUN/Creatinine Ratio 19.2 Random Glucose 57 mg/dl Calcium Level 8.5 mg/dl Iron Level 34 mcg/dl Total Iron Binding Capacity 326 mcg/dl Transferrin 244 mg/dl Transferrin % Saturation 10 % Total Bilirubin 0.7 mg/dl Aspartate Amino Transf (AST/SGOT) 15 U/L Alanine Aminotransferase (ALT/SGPT) 11 U/L Alkaline Phosphatase 184 U/L Total Protein 8.6 gm/dl Albumin 3.2 gm/dl Globulin 5.4 gm/dl Albumin/Globulin Ratio 0.6 Bedside Glucose 59 mg/dl 51 mg/dl 55 mg/dl Test 05/19/17 09:05 05/19/17 09:31 05/19/17 11:20 05/19/17 15:58 Bedside Glucose 61 mg/dl 71 mg/dl 78 mg/dl 79 mg/dl Test 05/19/17 19:48 05/19/17 19:58 05/19/17 19:59 White Blood Count 6.61 K/uL Red Blood Count 3.35 M/uL Hemoglobin 8.6 g/dL Hematocrit 27.4 % Mean Corpuscular Volume 81.8 fL Mean Corpuscular Hemoglobin 25.7 pg Mean Corpuscular Hemoglobin Concent 31.4 g/dl Platelet Count 182 K/uL Mean Platelet Volume 9.4 fL Neutrophils (%) (Auto) 63.4 % Lymphocytes (%) (Auto) 16.0 % Monocytes (%) (Auto) 13.0 % Eosinophils (%) (Auto) 6.8 % Basophils (%) (Auto) 0.6 % Neutrophils # (Auto) 4.19 K/uL Lymphocytes # (Auto) 1.06 K/uL Monocytes # (Auto) 0.86 K/uL Eosinophils # (Auto) 0.45 K/uL Basophils # (Auto) 0.04 K/uL RDW Standard Deviation 55.2 fL RDW Coefficient of Variation 18.4 % Immature Granulocyte % (Auto) 0.2 % Immature Granulocyte # (Auto) 0.01 K/uL Prothrombin Time 14.0 SECONDS Prothromb Time International Ratio 1.3 Activated Partial Thromboplast Time 36.8 SECONDS Partial Thromboplastin Ratio 1.4 Bedside Glucose 46 mg/dl Assessment and Plan 56-year-old male with lower extremity severe edema with leg ulcerations with recent infection with Pseudomonas, Alcaligenes, and Enterococcus. Would continue patient on amoxicillin and ciprofloxacin, likely in the range of 7-14 days. Will follow.
[2017-05-19 20:20] VITALS: BP 115/68; O2SAT 65
[2017-05-19 20:24] LABS: COMPLETE YES; TEAR DROP CELLS 1+
[2017-05-19] MEDS: TRAZODONE HCL 50 MG TAB PO SCH (20:33)
[2017-05-19] MEDS: ATORVASTATIN 40 MG TAB PO SCH (20:33)
[2017-05-19] MEDS: DOCUSATE SODIUM/SENNA 50/8.6MG TAB PO SCH (20:34)
[2017-05-19] MEDS: INSULIN GLARGINE SOLOSTAR 100 UNITS/ML 3 ML PEN SC SCH (21:00)
[2017-05-19] MEDS ORDERED: HEPARIN IV BOLUS 10,000 UNIT in SYRINGE 0 ML IV ONE (21:00)
[2017-05-19] MEDS: HEPARIN 25,000 UNIT/500ML D5W 500 ML IV PRN (21:55)
[2017-05-19] MEDS ORDERED: ACETAMINOPHEN 500 MG TAB PO STA (23:13)
[2017-05-19] MEDS ORDERED: TRAMADOL HCL 50 MG TAB PO STA (23:17)
[2017-05-20] MEDS: ACETAMINOPHEN/CODEINE 300/30MG TAB PO PRN ×4 (00:07→20:30)
[2017-05-20 00:19] VITALS: BP 142/84; PULSE 62; TEMP 36.5; O2SAT 94
[2017-05-20 04:08] LABS: HEMATOCRIT 26.1 % (42-52); MEAN CELL VOLUME 81.8 fL (80-100); MEAN CORPUSCULAR HEMOGLOBIN 24.8 pg (25-34); MEAN CORPUSCULAR HGB CONC 30.3 g/dl (32-36); MEAN PLATELET VOLUME 9.9 fL (7.4-10.4); PLATELET COUNT 164 K/uL (130-400); RED BLOOD COUNT 3.19 M/uL (4.7-6.1); WHITE BLOOD COUNT 6.14 K/uL (4.8-10.8)
[2017-05-20 04:30] LABS: INR 1.3 (0.9-1.1); PARTIAL THROMBOPLASTIN RATIO 3.5; PROTHROMBIN TIME (PATIENT) 14.4 SECONDS (9.0-12.0)
[2017-05-20] MEDS: HEPARIN 25,000 UNIT/500ML D5W 500 ML IV PRN ×3 (05:14→21:42)
[2017-05-20 07:51] VITALS: BP 149/75; PULSE 63; TEMP 36.4; O2SAT 95
[2017-05-20] MEDS: CHECK FENTANYL PATCH PLACEMENT SCH ×3 (08:00→23:42)
[2017-05-20] MEDS: PREGABALIN 75 MG CAP PO SCH ×2 (08:38→20:26)
[2017-05-20] MEDS: NYSTATIN POWDER 15GM BTL EXT SCH (08:39)
[2017-05-20] MEDS: ALBUMIN 25% 50 ML with FUROSEMIDE INJ 80 MG IV SCH ×2 (08:40)
[2017-05-20] MEDS: URSODIOL 300 MG CAP PO SCH ×2 (08:41→20:16)
[2017-05-20] MEDS: AMOXICILLIN 500 MG CAP PO SCH ×3 (08:42→20:16)
[2017-05-20] MEDS: CARVEDILOL 25 MG TAB PO SCH ×2 (08:43→20:16)
[2017-05-20] MEDS: CIPROFLOXACIN 500 MG TAB PO SCH ×2 (08:43→20:16)
[2017-05-20] MEDS: LORATADINE 10 MG TAB PO SCH (08:43)
[2017-05-20] MEDS: VENLAFAXINE HCL 50 MG TAB PO SCH (08:44)
[2017-05-20] MEDS: PANTOprazole SOD 40 MG TAB PO SCH (08:45)
[2017-05-20] MEDS: ERGOCALCIFEROL 50,000 INTER.UNIT CAP PO SCH (08:45)
[2017-05-20 09:00] VITALS: O2SAT 95
[2017-05-20] MEDS: INSULIN ASPART 100 UNITS/ML 3 ML PEN SC SCH ×4 (09:07→20:59)
[2017-05-20] MEDS: INSULIN GLARGINE SOLOSTAR 100 UNITS/ML 3 ML PEN SC SCH ×2 (09:08→21:02)
[2017-05-20 12:46] LABS: PARTIAL THROMBOPLASTIN RATIO 1.9
[2017-05-20 13:01] LABS: ALB/GLOB RATIO 0.6 (0.9-2); BUN/CREATININE RATIO 19.3 (10-20); CALCIUM 8.2 mg/dl (8.5-10.1); CREATININE 3.6 mg/dl (0.60-1.40); POTASSIUM 4.2 mmol/L (3.5-5.1)
[2017-05-20] MEDS: ACETAMINOPHEN 500 MG TAB PO PRN (13:14)
--- NOTE | 2017-05-20 14:20 | Progress Note ---
Internal Med Progress Note Date of Service: May 20, 2017. Provider Documentation: SUBJECTIVE: patient seen and examined at bedside. sitting on bed. he had made urine into his urinal which spilled onto the floor with his feet soaked in urine. called for nurse for janitorial staff and assist patient. patient has been on IV heparin with bridge to coumadin. patient denies chest pain or shortness of breath OBJECTIVE: General Appearance: no acute distress Head: normocephalic, atraumatic Eyes: normal inspection, EOMI, sclerae normal ENT: hearing grossly normal, pharynx normal Neck: supple, no adenopathy, trachea midline, + JVD Respiratory/Chest: chest non-tender, lungs clear, no respiratory distress, no accessory muscle use Cardiovascular: regular rate, rhythm Abdomen/GI: normal bowel sounds, soft Back: normal inspection, no CVA tenderness Extremities: no calf tenderness, Significant LE swelling, R>L, extending up to scrotal area Neurologic/Psych: no motor deficits Skin: chronic swelling of lower extremities with chronic skin changes and skin breaks in dressings ASSESSMENT & PLAN: This is a 56yo M with a PMH of HTN, DM II, h/o chronic R DVT, 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 BLE cellulitis -recent infection with Pseudomonas, Alcaligenes, and Enterococcus. As per ID consult notes on 05/19, 05/20: patient being restarted on amoxicillin and ciprofloxacin likely in the range of 7-14 days -wound care debrided blisters on 05/18/17 History of Right lower extremity DVT/PE: -history of IVC filter -have been on Eliquis in recent past; on last admission and this admission there have been cardiology recommendations to continue with Eliquis, however given renal function and weight patient may benefit from coumadin -patient have been on heparin drip with plans to bridge to coumadin to achieve therapeutic INR Bilateral lower extremity swelling and pain -Multifactorial with h/o lymphedema, CHF, CKD, dietary non-compliance, [facility]tic at [facility] - DVT studies negative on 05/16/17 for more involvement of right leg DVT, could not tolerate repeat scan ordered on 05/19/17 due to scrotal discomfort -scrotal sling ordered -pain control with Lyrica,Fentanyl -nephrology consult managing swelling with Lasix and albumin, these orders have discontinued on 05/20/17, will defer to nephrology to decide whether this high dose diuresis is required at this time given rising creatinine CKD Stage IV -monitor GFR Acute on chronic systolic/diastolic HF: -has been treated with Lasix with albumin on this admission Chronic A Fib: -anticoagulation; off Eliquis and now on IV heparin with bridge to coumadin -Coreg for heart rate control HTN: -Stable -Continue home meds Hypothyroidism: -Continue levothyroxine DM II: -have been on Lantus and short acting insulin, due to episodes of hypoglycemia, have consulted pharmacy on insulin adjustments DVT Ppx: pharmacological anticoagulation FULL CODE PCP: Damián Dispo: SW consulted to help with discharge placement back to [facility] when medically improved Vital Signs: Date Time Temp Pulse Resp B/P (MAP) Pulse Ox O2 Delivery O2 Flow Rate FiO2 05/20/17 09:00 95 Room Air 05/20/17 07:51 36.4 63 22 149/75 (99) 95 Room Air 05/20/17 00:19 36.5 62 20 142/84 (103) 94 Room Air 05/20/17 00:00 Room Air 05/19/17 20:20 115/68 (84) 65 05/19/17 20:00 Room Air 05/19/17 17:12 36.2 63 20 101/66 (78) 92 Room Air 05/19/17 16:00 Room Air 05/19/17 15:00 36.6 77 20 132/83 (99) 95 Lab Results: Results Past 24 Hours Test 05/19/17 15:58 05/19/17 19:48 05/19/17 19:59 05/19/17 20:18 Range/Units Bedside Glucose 79 46 74 70-99 mg/dl White Blood Count 6.61 4.8-10.8 K/uL Red Blood Count 3.35 4.7-6.1 M/uL Hemoglobin 8.6 14.0-18.0 g/dL Hematocrit 27.4 42-52 % Mean Corpuscular Volume 81.8 80-100 fL Mean Corpuscular Hemoglobin 25.7 25-34 pg Mean Corpuscular Hemoglobin Concent 31.4 32-36 g/dl Platelet Count 182 130-400 K/uL Mean Platelet Volume 9.4 7.4-10.4 fL Neutrophils (%) (Auto) 63.4 % Lymphocytes (%) (Auto) 16.0 % Monocytes (%) (Auto) 13.0 % Eosinophils (%) (Auto) 6.8 % Basophils (%) (Auto) 0.6 % Neutrophils # (Auto) 4.19 1.4-6.5 K/uL Lymphocytes # (Auto) 1.06 1.2-3.4 K/uL Monocytes # (Auto) 0.86 0.11-0.59 K/uL Eosinophils # (Auto) 0.45 0-0.5 K/uL Basophils # (Auto) 0.04 0-0.2 K/uL RDW Standard Deviation 55.2 36.4-46.3 fL RDW Coefficient of Variation 18.4 11.5-14.5 % Immature Granulocyte % (Auto) 0.2 % Immature Granulocyte # (Auto) 0.01 0.00-0.02 K/uL Basophilic Stippling OCCASIONAL Tear Drop Cells 1+ Prothrombin Time 14.0 9.0-12.0 SECONDS Prothromb Time International Ratio 1.3 0.9-1.1 Activated Partial Thromboplast Time 36.8 21.0-31.0 SECONDS Partial Thromboplastin Ratio 1.4 Test 05/20/17 00:10 05/20/17 03:57 05/20/17 07:37 05/20/17 12:13 Range/Units Bedside Glucose 80 114 70-99 mg/dl White Blood Count 6.14 4.8-10.8 K/uL Red Blood Count 3.19 4.7-6.1 M/uL Hemoglobin 7.9 14.0-18.0 g/dL Hematocrit 26.1 42-52 % Mean Corpuscular Volume 81.8 80-100 fL Mean Corpuscular Hemoglobin 24.8 25-34 pg Mean Corpuscular Hemoglobin Concent 30.3 32-36 g/dl RDW Standard Deviation 55.3 36.4-46.3 fL RDW Coefficient of Variation 18.4 11.5-14.5 % Platelet Count 164 130-400 K/uL Mean Platelet Volume 9.9 7.4-10.4 fL Prothrombin Time 14.4 9.0-12.0 SECONDS Prothromb Time International Ratio 1.3 0.9-1.1 Activated Partial Thromboplast Time 91.3 50.6 21.0-31.0 SECONDS Partial Thromboplastin Ratio 3.5 1.9 Sodium Level 141 136-145 mmol/L Potassium Level 4.2 3.5-5.1 mmol/L Chloride Level 108 98-107 mmol/L Carbon Dioxide Level 22 21-32 mmol/L Anion Gap 10.0 3-11 mmol/L Blood Urea Nitrogen 70 7-18 mg/dl Creatinine 3.60 0.60-1.40 mg/dl Est Creatinine Clear Calc Drug Dose 43.2 ml/min Estimated GFR () 20.5 Estimated GFR (Non- 17.7 BUN/Creatinine Ratio 19.3 10-20 Random Glucose 134 70-99 mg/dl Calcium Level 8.2 8.5-10.1 mg/dl Total Bilirubin 0.5 0.2-1 mg/dl Aspartate Amino Transf (AST/SGOT) 22 15-37 U/L Alanine Aminotransferase (ALT/SGPT) 12 12-78 U/L Alkaline Phosphatase 177 45-117 U/L Total Protein 8.1 6.4-8.2 gm/dl Albumin 3.1 3.4-5.0 gm/dl Globulin 5.0 2.5-4.0 gm/dl Albumin/Globulin Ratio 0.6 0.9-2 Test 05/20/17 12:20 Range/Units Bedside Glucose 147 70-99 mg/dl
--- NOTE | 2017-05-20 14:57 | Pharmacy Progress Note ---
Glycemic Control Progress Note Date of Service May 20, 2017. Scope Glycemic Pharmacist consulted for glycemic control to write orders per [facility] inpatient glycemic control protocol. Objective Accuchecks BSG (last 24hrs): Test 05/19/17 15:58 05/19/17 19:59 05/19/17 20:18 05/20/17 00:10 Bedside Glucose 79 mg/dl (70-99) 46 mg/dl (70-99) 74 mg/dl (70-99) 80 mg/dl (70-99) Test 05/20/17 07:37 05/20/17 12:13 05/20/17 12:20 Bedside Glucose 114 mg/dl (70-99) 147 mg/dl (70-99) Random Glucose 134 mg/dl (70-99) HbA1c: Test 05/17/17 05:31 Hemoglobin A1c 7.5 % (4.5-5.6) H Recent Pertinent Medications Outpatient Anti-diabetic Regimen: * Levemir 35 units SQ BID * Novolog 15 units TID with meals * A1c = 7.5 % 05/17/17 -- BUT PT REPORTS LOW BSGs as outpatient The patient is currently receiving: * Basal insulin with LANTUS SQ BID * Lantus 15 units SQ x 1 dose yesterday morning * 15 units SQ BID for BSG < 180mg/dl * 20 units SQ BID for BSG 180mg/dl or greater -- THIS WAS HELD LAST NIGHT FOR BSG 74MG/DL * Correctional Insulin with NOVOLOG per scale ACHS or Q6hrs while NPO * Goal Range: Low 120 mg/dL - High 150 mg/dL * Correction Factor: 30 mg/dL/unit * Nutritional / Prandial insulin per carb ratio of 1 unit per 10 grams CHO consumed Risk Factors for Insulin Resistance: * Infection: BLE cellulitis/ulcerations - PO Cipro and Amoxicillin * Diet: AHA Assessment & Plan ASSESSMENT: 05/19/17 * 56 year old morbidly obese type 2 diabetic, admitted for BLE Cellulitis, experiencing hypogylcemia on home insulin regimen as inpatient. * Insulin regimen needs decreased to prevent further hypoglycemia * AM Fasting BSG = 51 therefore Basal insulin needs decreased - will give a reduced AM dose then reduce total daily dose starting tonight, based on BSG * BSGs trending downwards throughout the day (insulin stacking) therefore Loosen CF/CR * ADA & AACE recommend a goal blood sugar range 140-180 mg/dl for the majority of critically ill & non-critically ill patients. However, more stringent targets may be selected in individual cases. Will utilize more stringent goal of 110-140mg/dl based on patient age & comorbidities. Additionally, tighter glycemic control is warranted to facilitate wound/infection healing. 05/20/17 * Blood sugars remained in the 70s yesterday, so PM dose of Lantus held, will decrease Lantus dose further to prevent hypoglycemia * Blood sugars looking much better today with reduced dose of Lantus PLAN FOR INPATIENT GLYCEMIC CONTROL: * Basal insulin with LANTUS SQ BID * 8 units SQ BID for BSG < 180mg/dl * 15 units SQ BID for BSG 180mg/dl or greater * Correctional Insulin with NOVOLOG per scale ACHS or Q6hrs while NPO * Goal Range: Low 120 mg/dL - High 150 mg/dL * Correction Factor: 30 mg/dL/unit * Nutritional / Prandial insulin per carb ratio of 1 unit per 10 grams CHO consumed DISCHARGE RECOMMENDATIONS: * Patient reports hypoglycemia as outpatient, I'd recommend that patient reduces doses of insulin to the following: * Levemir 10 units BID * Novolog 6 units SQ daily with meals and snacks * Please note that the plan above was derived based on current level of insulin resistance and hospital stress. These recommendations are appropriate for inpatient admission only. Plan of care upon discharge will need to be reassessed to avoid potential outpatient hypo/hyperglycemia. Thank you.
[2017-05-20] MEDS: hydrOXYzine HCL 25 MG TAB PO PRN (15:00)
[2017-05-20 16:00] VITALS: O2SAT 95
[2017-05-20 16:09] VITALS: BP 118/70; PULSE 63; TEMP 36.3; O2SAT 93
[2017-05-20] MEDS: WARFARIN SOD 5 MG TAB PO SCH (17:28)
[2017-05-20] MEDS: TRAZODONE HCL 50 MG TAB PO SCH (20:16)
[2017-05-20] MEDS: DOCUSATE SODIUM/SENNA 50/8.6MG TAB PO SCH (20:18)
[2017-05-20] MEDS: ATORVASTATIN 40 MG TAB PO SCH (20:18)
[2017-05-21 01:07] VITALS: BP 132/76; PULSE 59; TEMP 36.3; O2SAT 96
[2017-05-21] MEDS: ACETAMINOPHEN 500 MG TAB PO PRN (01:46)
[2017-05-21] MEDS: ACETAMINOPHEN/CODEINE 300/30MG TAB PO PRN ×3 (04:12→20:50)
[2017-05-21 07:19] LABS: INR 1.4 (0.9-1.1); PARTIAL THROMBOPLASTIN RATIO 2.2; PROTHROMBIN TIME (PATIENT) 15.4 SECONDS (9.0-12.0)
[2017-05-21 07:33] LABS: BUN/CREATININE RATIO 21.9 (10-20); CALCIUM 8.1 mg/dl (8.5-10.1); CREATININE 3.5 mg/dl (0.60-1.40); POTASSIUM 4.2 mmol/L (3.5-5.1)
[2017-05-21 07:35] LABS: ALB/GLOB RATIO 0.6 (0.9-2)
[2017-05-21 07:53] LABS: BASO % 0.4 %; BASO ABS # 0.03 K/uL (0-0.2); EOS % 5.4 %; HEMATOCRIT 27.6 % (42-52); IG% 0.3 %; LYMPH % 15.8 %; LYMPH ABS # 1.12 K/uL (1.2-3.4); MEAN CELL VOLUME 81.7 fL (80-100); MEAN CORPUSCULAR HEMOGLOBIN 24.9 pg (25-34); MEAN CORPUSCULAR HGB CONC 30.4 g/dl (32-36); MEAN PLATELET VOLUME 10.2 fL (7.4-10.4); MONO % 9.3 %; NEUT % 68.8 %; PLATELET COUNT 187 K/uL (130-400); RED BLOOD COUNT 3.38 M/uL (4.7-6.1)
[2017-05-21 08:09] VITALS: BP 116/66; PULSE 63; TEMP 36.4; O2SAT 92
[2017-05-21 08:21] LABS: COMPLETE YES; POLYCHROMASIA 1+
[2017-05-21] MEDS: INSULIN ASPART 100 UNITS/ML 3 ML PEN SC SCH ×4 (09:11→21:00)
[2017-05-21] MEDS: INSULIN GLARGINE SOLOSTAR 100 UNITS/ML 3 ML PEN SC SCH ×2 (09:12→21:34)
[2017-05-21] MEDS: HEPARIN 25,000 UNIT/500ML D5W 500 ML IV PRN ×2 (09:14→21:07)
[2017-05-21] MEDS: NYSTATIN POWDER 15GM BTL EXT SCH (09:19)
[2017-05-21] MEDS: CHECK FENTANYL PATCH PLACEMENT SCH ×2 (09:20→16:05)
[2017-05-21] MEDS: FENTANYL PATCH REMOVE & WASTE SCH (09:20)
[2017-05-21] MEDS: AMOXICILLIN 500 MG CAP PO SCH ×3 (09:21→20:51)
[2017-05-21] MEDS: URSODIOL 300 MG CAP PO SCH ×2 (09:21→20:52)
[2017-05-21] MEDS: CARVEDILOL 25 MG TAB PO SCH ×2 (09:22→20:52)
[2017-05-21] MEDS: LORATADINE 10 MG TAB PO SCH (09:22)
[2017-05-21] MEDS: CIPROFLOXACIN 500 MG TAB PO SCH ×2 (09:22→20:51)
[2017-05-21] MEDS: PREGABALIN 75 MG CAP PO SCH ×2 (09:23→20:58)
[2017-05-21] MEDS: VENLAFAXINE HCL 50 MG TAB PO SCH (09:23)
[2017-05-21] MEDS: PANTOprazole SOD 40 MG TAB PO SCH (09:24)
[2017-05-21] MEDS: ERGOCALCIFEROL 50,000 INTER.UNIT CAP PO SCH (09:24)
[2017-05-21] MEDS: hydrOXYzine HCL 25 MG TAB PO PRN (09:24)
[2017-05-21] MEDS: FENTANYL 12 MCG/HR TDSY TD SCH (09:26)
[2017-05-21] MEDS ORDERED: HYDROmorphone INJ 2 MG/ML SYR/VIAL IV STA (09:49)
[2017-05-21 14:30] VITALS: BP 136/87; PULSE 65; TEMP 36.6; O2SAT 97
[2017-05-21] MEDS: ALBUMIN 25% 50 ML with FUROSEMIDE INJ 80 MG IV SCH ×4 (14:34→20:43)
[2017-05-21 15:34] VITALS: BP 116/71; PULSE 66; TEMP 36.3; O2SAT 93
--- NOTE | 2017-05-21 18:24 | Progress Note ---
Internal Med Progress Note Date of Service: May 21, 2017. Provider Documentation: SUBJECTIVE: patient seen and examined. reports worsening scrotal swelling. denies chest pain or shortness of breath OBJECTIVE: General Appearance: no acute distress Head: normocephalic, atraumatic Eyes: normal inspection, EOMI, sclerae normal ENT: hearing grossly normal, pharynx normal Neck: supple, no adenopathy, trachea midline, no JVD Respiratory/Chest: chest non-tender, lungs clear, no respiratory distress, no accessory muscle use Cardiovascular: regular rate, rhythm Abdomen/GI: normal bowel sounds, soft Back: normal inspection, no CVA tenderness Extremities: no calf tenderness, Significant LE swelling, R>L, extending up to scrotal area, very swollen scrotum, nontender scrotum Neurologic/Psych: no motor deficits Skin: chronic swelling of lower extremities with chronic skin changes and skin breaks in dressings ASSESSMENT & PLAN: This is a 56yo M with a PMH of HTN, DM II, h/o chronic R DVT, 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 BLE cellulitis -recent infection with Pseudomonas, Alcaligenes, and Enterococcus. As per ID consult notes on 05/19, 05/20: patient being restarted on amoxicillin and ciprofloxacin likely in the range of 7-14 days -wound care debrided blisters on 05/18/17 History of Right lower extremity DVT/PE: -history of IVC filter -have been on Eliquis in recent past; on last admission and this admission there have been cardiology recommendations to continue with Eliquis, however given renal function and weight patient may benefit from coumadin -patient have been on heparin drip with plans to bridge to coumadin to achieve therapeutic INR Bilateral lower extremity swelling and pain -Multifactorial with h/o lymphedema, CHF, CKD, dietary non-compliance, missing [facility]uretic at [facility] - DVT studies negative on 05/16/17 for more involvement of right leg DVT, could not tolerate repeat scan ordered on 05/19/17 due to scrotal discomfort -scrotal sling ordered -pain control with Lyrica,Fentanyl, will add lose doses of dilaudid prn -nephrology consult managing swelling with Lasix and albumin, these orders have discontinued on 05/20/17, because of increased scrotal swelling will restart this regimen again starting 05/21/17 CKD Stage IV -monitor GFR Acute on chronic systolic/diastolic HF: -has been treated with Lasix with albumin on this admission Chronic A Fib: -anticoagulation; off Eliquis and now on IV heparin with bridge to coumadin -Coreg for heart rate control HTN: -Stable -Continue home meds Hypothyroidism: -Continue levothyroxine DM II: -have been on Lantus and short acting insulin, due to episodes of hypoglycemia, have consulted pharmacy on insulin adjustments DVT Ppx: pharmacological anticoagulation FULL CODE PCP: Damián Dispo: SW consulted to help with discharge placement back to [facility] when medically improved and INR therapeutic levels Vital Signs: Date Time Temp Pulse Resp B/P (MAP) Pulse Ox O2 Delivery O2 Flow Rate FiO2 05/21/17 16:00 Room Air 05/21/17 15:34 36.3 66 20 116/71 (86) 93 Room Air 05/21/17 14:30 36.6 65 16 136/87 (103) 97 Room Air 05/21/17 08:09 36.4 63 22 116/66 (83) 92 Room Air 05/21/17 08:00 Room Air 05/21/17 01:07 36.3 59 20 132/76 (94) 96 Room Air 05/21/17 00:15 Room Air Lab Results: Results Past 24 Hours Test 05/20/17 19:50 05/21/17 06:45 05/21/17 07:53 05/21/17 11:53 Range/Units Bedside Glucose 114 113 137 70-99 mg/dl White Blood Count 7.10 4.8-10.8 K/uL Red Blood Count 3.38 4.7-6.1 M/uL Hemoglobin 8.4 14.0-18.0 g/dL Hematocrit 27.6 42-52 % Mean Corpuscular Volume 81.7 80-100 fL Mean Corpuscular Hemoglobin 24.9 25-34 pg Mean Corpuscular Hemoglobin Concent 30.4 32-36 g/dl Platelet Count 187 130-400 K/uL Mean Platelet Volume 10.2 7.4-10.4 fL Neutrophils (%) (Auto) 68.8 % Lymphocytes (%) (Auto) 15.8 % Monocytes (%) (Auto) 9.3 % Eosinophils (%) (Auto) 5.4 % Basophils (%) (Auto) 0.4 % Neutrophils # (Auto) 4.89 1.4-6.5 K/uL Lymphocytes # (Auto) 1.12 1.2-3.4 K/uL Monocytes # (Auto) 0.66 0.11-0.59 K/uL Eosinophils # (Auto) 0.38 0-0.5 K/uL Basophils # (Auto) 0.03 0-0.2 K/uL RDW Standard Deviation 54.4 36.4-46.3 fL RDW Coefficient of Variation 18.3 11.5-14.5 % Immature Granulocyte % (Auto) 0.3 % Immature Granulocyte # (Auto) 0.02 0.00-0.02 K/uL Polychromasia 1+ Prothrombin Time 15.4 9.0-12.0 SECONDS Prothromb Time International Ratio 1.4 0.9-1.1 Activated Partial Thromboplast Time 57.8 21.0-31.0 SECONDS Partial Thromboplastin Ratio 2.2 Sodium Level 139 136-145 mmol/L Potassium Level 4.2 3.5-5.1 mmol/L Chloride Level 108 98-107 mmol/L Carbon Dioxide Level 20 21-32 mmol/L Anion Gap 11.0 3-11 mmol/L Blood Urea Nitrogen 76 7-18 mg/dl Creatinine 3.50 0.60-1.40 mg/dl Est Creatinine Clear Calc Drug Dose 44.4 ml/min Estimated GFR () 21.2 Estimated GFR (Non- 18.3 BUN/Creatinine Ratio 21.9 10-20 Random Glucose 112 70-99 mg/dl Calcium Level 8.1 8.5-10.1 mg/dl Total Bilirubin 0.6 0.2-1 mg/dl Aspartate Amino Transf (AST/SGOT) 24 15-37 U/L Alanine Aminotransferase (ALT/SGPT) 15 12-78 U/L Alkaline Phosphatase 176 45-117 U/L Total Protein 8.4 6.4-8.2 gm/dl Albumin 3.2 3.4-5.0 gm/dl Globulin 5.2 2.5-4.0 gm/dl Albumin/Globulin Ratio 0.6 0.9-2 Test 05/21/17 17:24 Range/Units Bedside Glucose 130 70-99 mg/dl
[2017-05-21] MEDS: WARFARIN SOD 5 MG TAB PO SCH (19:10)
[2017-05-21 20:41] VITALS: BP 127/77; PULSE 67
[2017-05-21] MEDS: DOCUSATE SODIUM 100 MG CAP PO SCH (20:53)
[2017-05-21] MEDS: ATORVASTATIN 40 MG TAB PO SCH (20:54)
[2017-05-21] MEDS: DOCUSATE SODIUM/SENNA 50/8.6MG TAB PO SCH (20:54)
[2017-05-21] MEDS: TRAZODONE HCL 50 MG TAB PO SCH (20:54)
[2017-05-21] MEDS: HYDROmorphone INJ 0.5 MG/0.5 ML SYR IV PRN (22:33)
[2017-05-21 23:42] VITALS: BP 122/74; PULSE 61; TEMP 36; O2SAT 91
[2017-05-22] MEDS: CHECK FENTANYL PATCH PLACEMENT SCH ×3 (01:10→15:50)
[2017-05-22] MEDS ORDERED: NURSING VERBAL MED ORDER ONE (03:00)
[2017-05-22] MEDS ORDERED: LIDOCAINE HCL 2% JELLY 30 ML TUBE EXT ONE (03:03)
[2017-05-22] MEDS: HYDROmorphone INJ 0.5 MG/0.5 ML SYR IV PRN ×4 (04:02→19:41)
[2017-05-22] MEDS: ACETAMINOPHEN/CODEINE 300/30MG TAB PO PRN ×3 (05:19→18:54)
[2017-05-22 06:17] LABS: HEMATOCRIT 24.9 % (42-52); MEAN CELL VOLUME 81.4 fL (80-100); MEAN CORPUSCULAR HEMOGLOBIN 25.5 pg (25-34); MEAN CORPUSCULAR HGB CONC 31.3 g/dl (32-36); PLATELET COUNT 152 K/uL (130-400); RED BLOOD COUNT 3.06 M/uL (4.7-6.1); WHITE BLOOD COUNT 6.64 K/uL (4.8-10.8)
[2017-05-22 06:29] LABS: PROTHROMBIN TIME (PATIENT) 22.6 SECONDS (9.0-12.0)
[2017-05-22 06:52] LABS: CALCIUM 7.9 mg/dl (8.5-10.1); CREATININE 3.4 mg/dl (0.60-1.40)
[2017-05-22 06:54] LABS: ALB/GLOB RATIO 0.6 (0.9-2)
[2017-05-22] MEDS: HEPARIN 25,000 UNIT/500ML D5W 500 ML IV PRN ×3 (07:13→20:39)
[2017-05-22 07:32] VITALS: BP 160/80; PULSE 63; TEMP 36.3; O2SAT 96
[2017-05-22] MEDS: LORATADINE 10 MG TAB PO SCH (08:00)
[2017-05-22] MEDS: URSODIOL 300 MG CAP PO SCH ×2 (08:02→20:27)
[2017-05-22] MEDS: PANTOprazole SOD 40 MG TAB PO SCH (08:03)
[2017-05-22] MEDS: CARVEDILOL 25 MG TAB PO SCH ×2 (08:03→20:21)
[2017-05-22] MEDS: AMOXICILLIN 500 MG CAP PO SCH ×3 (08:03→20:26)
[2017-05-22] MEDS: CIPROFLOXACIN 500 MG TAB PO SCH ×2 (08:03→20:29)
[2017-05-22] MEDS: SENNA 8.6 MG TAB PO SCH (08:03)
[2017-05-22] MEDS: DOCUSATE SODIUM 100 MG CAP PO SCH ×2 (08:04→20:25)
[2017-05-22] MEDS: PREGABALIN 75 MG CAP PO SCH ×2 (08:04→20:32)
[2017-05-22] MEDS: NYSTATIN POWDER 15GM BTL EXT SCH (08:05)
[2017-05-22] MEDS: ERGOCALCIFEROL 50,000 INTER.UNIT CAP PO SCH (08:05)
[2017-05-22] MEDS: VENLAFAXINE HCL 50 MG TAB PO SCH (08:05)
[2017-05-22] MEDS: INSULIN GLARGINE SOLOSTAR 100 UNITS/ML 3 ML PEN SC SCH ×2 (08:15→20:38)
[2017-05-22] MEDS: ALBUMIN 25% 50 ML with FUROSEMIDE INJ 80 MG IV SCH ×6 (08:20→20:26)
[2017-05-22] MEDS: INSULIN ASPART 100 UNITS/ML 3 ML PEN SC SCH ×4 (09:19→20:40)
[2017-05-22] MEDS ORDERED: HYDROmorphone INJ 2 MG/ML SYR/VIAL IV SCH (11:30)
--- NOTE | 2017-05-22 12:37 | DIAGNOSTIC IMAGING REPORT ---
CT SCAN OF THE ABDOMEN AND PELVIS WITHOUT CONTRAST CLINICAL HISTORY: scrotal swelling FLUID OVERLOAD. EDEMA. COMPARISON STUDY: 01/10/2017 TECHNIQUE: CT scan of the abdomen and pelvis was performed from the lung bases to the proximal femurs. Images are reviewed in the axial, sagittal, and coronal planes. IV contrast was not administered for this examination. A dose lowering technique was utilized adhering to the principles of ALARA. CT DOSE: FINDINGS: Lower chest: There are mild bibasal atelectatic changes are as enlarged Liver: The liver is enlarged. No focal masses are visualized in this noncontrast study. Gallbladder: Surgically absent Spleen: The spleen is enlarged measuring 15.5 cm Pancreas: There is fatty atrophy the pancreas. No pancreatic masses are visualized. Adrenal glands: Unremarkable. Kidneys: There is no hydronephrosis. There is 18 mm exophytic right renal mass which exceeds water attenuation and is therefore indeterminate. Bowel: There are no transition zones to indicate bowel obstruction. There is no acute diverticulitis. There are no findings to indicate acute appendicitis. Peritoneum: There is no intraperitoneal free air or abdominal ascites. Vasculature: There is no evidence for abdominal aortic aneurysm. There is an indwelling IVC filter. There are multiple enlarged venous collaterals involving the perineum, inguinal regions, gonadal vessels, and anterior abdominal wall. This may be secondary to IVC and iliac vein occlusion. Adenopathy: There are mildly enlarged aortocaval and iliac lymph nodes, similar to the preceding study. There is mild bilateral inguinal lymphadenopathy. Pelvic viscera: There is indwelling Vivas catheter. There is air within the bladder likely iatrogenic. Skeletal structures: No destructive osseous lesions are seen. IMPRESSION: 1. No evidence of bowel obstruction. No evidence of free air 2. Stable hepatosplenomegaly 3. Indwelling IVC filter. Multiple abdominal and pelvic venous collaterals 4. Stable aortocaval, iliac, and inguinal lymphadenopathy 5. Stable 18 mm right renal nodule Electronically signed by: Richard Byrd M.D. 05/22/2017 12:36 PM Dictated Date/Time: 05/22/2017 12:28 PM
--- NOTE | 2017-05-22 12:41 | DIAGNOSTIC IMAGING REPORT ---
CT SCAN OF THE RIGHT LOWER EXTREMITY WITHOUT IV CONTRAST CLINICAL HISTORY: Right leg swelling. Scrotal edema. COMPARISON STUDY: CT scan of the right lower extremity dated 04/04/2017. TECHNIQUE: CT scan of the right lower extremity is performed from the bony pelvis to the foot. Images are reviewed in the axial, sagittal, coronal planes. IV contrast was not administered for this examination. A dose lowering technique was utilized adhering to the principles of ALARA. CT DOSE: 5373.35 mGy.cm FINDINGS: The skeletal structures are osteopenic. No fracture is seen within the visualized right hemipelvis or the right lower extremity. Arthritic change is noted in the right hip, knee, and ankle joints. Arthritic change is also seen in the right foot. No bony erosion or periostitis is identified. No lytic or blastic lesions are suggested. There is marked atrophy of the right lower extremity musculature. There is diffuse subcutaneous soft tissue edema and dermal thickening seen throughout the soft tissues of the right lower extremity. No organized fluid collection is seen to suggest abscess. No subcutaneous gas is identified. There is atherosclerotic calcification of the right lower extremity vasculature. Scrotal edema and wall thickening is noted. The bladder is decompressed around a Vivas catheter. Foci of intraluminal gas are likely limited to instrumentation. The prostate gland is mildly enlarged. No free fluid is seen in the pelvis. Venous collaterals are present in the right inguinal region. Mildly enlarged right lymph nodes are nonspecific and likely on a reactive basis. There is no right pelvic sidewall adenopathy. IMPRESSION: 1. Osteopenia with no acute bony abnormality seen in the right lower extremity. 2. Diffuse subcutaneous soft tissue edema is identified with associated dermal thickening. This could be related to anasarca/fluid overload versus cellulitis. Clinical correlation will be essential. 3. There is diffuse fatty atrophy of the regional musculature. Electronically signed by: Neville Izquierdo M.D. 05/22/2017 12:40 PM Dictated Date/Time: 05/22/2017 12:29 PM
--- NOTE | 2017-05-22 12:45 | DIAGNOSTIC IMAGING REPORT ---
CT SCAN OF THE LEFT LOWER EXTREMITY WITHOUT IV CONTRAST CLINICAL HISTORY: Left leg swelling. Scrotal edema. COMPARISON STUDY: CT scan of the left lower extremity dated 04/04/2017. TECHNIQUE: CT scan of the left lower extremity is performed from the bony pelvis to the foot. Images are reviewed in the axial, sagittal, coronal planes. IV contrast was not administered for this examination. A dose lowering technique was utilized adhering to the principles of ALARA. CT DOSE: 5373.35 mGy.cm FINDINGS: The skeletal structures are osteopenic. No fracture is seen within the visualized left hemipelvis or the left lower extremity. Arthritic change is noted in the left hip, knee, and ankle joints. There is a small knee joint effusion. Arthritic change is also seen in the left foot. No bony erosion or periostitis is identified. No lytic or blastic lesions are suggested. There is marked atrophy of the left lower extremity musculature. There is diffuse subcutaneous soft tissue edema and dermal thickening seen throughout the soft tissues of the left lower extremity. No organized fluid collection is seen to suggest abscess. No subcutaneous gas is identified. There is atherosclerotic calcification of the mild lower extremity vasculature. Scrotal edema and wall thickening is noted. The bladder is decompressed around a Vivas catheter. Foci of intraluminal gas are likely limited to instrumentation. No free fluid is seen in the pelvis. Mildly enlarged left inguinal lymph nodes are nonspecific and likely on a reactive basis. There is no left pelvic sidewall adenopathy. A tiny metallic foreign body is again noted in the tip of the left first toe. IMPRESSION: 1. Osteopenia with no acute bony abnormality seen in the left lower extremity. 2. Diffuse subcutaneous soft tissue edema is identified with associated dermal thickening. This could be related to anasarca/fluid overload versus cellulitis. Clinical correlation will be essential. 3. There is diffuse fatty atrophy of the regional musculature. 4. A metallic foreign body is again seen in the tip of the first toe. Electronically signed by: Neville Izquierdo M.D. 05/22/2017 12:44 PM Dictated Date/Time: 05/22/2017 12:36 PM
--- NOTE | 2017-05-22 12:56 | DIAGNOSTIC IMAGING REPORT ---
CT OF THE CHEST WITHOUT IV CONTRAST CLINICAL HISTORY: Fluid overload. COMPARISON STUDY: Chest radiograph May 16, 2017. TECHNIQUE: Axial images of the chest were obtained without IV contrast. Images were reviewed in the axial, sagittal, and coronal planes. IV contrast was not administered for this examination. A dose lowering technique was utilized adhering to the principles of ALARA. FINDINGS: A dual lead left pacer/AICD is in place. Moderate cardiomegaly is noted. There is no pericardial effusion. No enlarged axillary, mediastinal or hilar lymph nodes are present. There is no evidence of pulmonary edema. No consolidation is present. There is no pneumothorax or pleural effusion. Mild subpleural opacities reflect atelectasis. There are a few tiny calcified nodules within the lungs. The abdomen and pelvis will be reported separately. There are no suspicious osseous lesions within the bony thorax. IMPRESSION: 1. No acute intrathoracic findings. 2. Moderate cardiomegaly. Electronically signed by: Sean Berrios M.D. 05/22/2017 12:54 PM Dictated Date/Time: 05/22/2017 12:28 PM
[2017-05-22] MEDS: ACETAMINOPHEN 500 MG TAB PO PRN (13:42)
--- NOTE | 2017-05-22 14:15 | Pharmacy Progress Note ---
Glycemic: Assessment & Plan Date of Service May 22, 2017. Assessment & Plan The patient is currently receiving ~22 units of insulin per day. BSGs ranging 120 - 150 mg/dl over the past 24hrs. * Basal insulin: Lantus 8 units every 12 hours * Correctional Insulin: Novolog Correction per scale ACHS Goal Range: Low 120 mg/dL - High 150 mg/dL Correction Factor: 30 mg/dL/unit * Prandial insulin: Per carb ratio of 1 unit per 10 grams CHO consumed Pt with "lower" HS BSG last night of 122mg/dl therefore basal insulin was held per MD. Pt did not eat lunch or dinner. However, PO intake resumed this morning. BSGs continue to improve, no changes needed to inpatient regimen at this time. Pharmacy will continue to monitor patient daily and write orders per [facility] inpatient glycemic control protocol. Thanks. * Please note that the plan above was derived based on current level of insulin resistance and hospital stress. These recommendations are appropriate for inpatient admission only. Plan of care upon discharge will need to be reassessed to avoid potential outpatient hypo/hyperglycemia.
[2017-05-22 14:22] LABS: PARTIAL THROMBOPLASTIN RATIO 2.4
[2017-05-22 15:02] VITALS: BP 136/77; PULSE 65; TEMP 36.3; O2SAT 94
[2017-05-22] MEDS: WARFARIN SOD 5 MG TAB PO SCH (15:53)
[2017-05-22 16:00] VITALS: O2SAT 94
[2017-05-22 17:38] LABS: ALBUMIN 3.6 G/DL (3.8-4.8); TOTAL PROTEIN 7.8 G/DL (6.2-8.3)
--- NOTE | 2017-05-22 17:42 | Progress Note ---
Internal Med Progress Note Date of Service: May 22, 2017. Provider Documentation: SUBJECTIVE: patient seen and examined. has been on heparin drip IV with bridge to coumadin. Today INR is 2. Continued to have leg edema and scrotal edema. overnight patient had urinary retention and now on trujillo. have scanned the patient with CT and no evidence of gas or fasciitis, continues to be fluid overloaded OBJECTIVE: General Appearance: no acute distress Head: normocephalic, atraumatic Eyes: normal inspection, EOMI, sclerae normal ENT: hearing grossly normal, pharynx normal Neck: supple, no adenopathy, trachea midline, no JVD Respiratory/Chest: chest non-tender, lungs clear, no respiratory distress, no accessory muscle use Cardiovascular: regular rate, rhythm Abdomen/GI: normal bowel sounds, soft Back: normal inspection, no CVA tenderness Extremities: no calf tenderness, Significant LE swelling, R>L, extending up to scrotal area, very swollen scrotum, nontender scrotum Neurologic/Psych: no motor deficits Skin: chronic swelling of lower extremities with chronic skin changes and skin breaks in dressings ASSESSMENT & PLAN: This is a 56yo M with a PMH of HTN, DM II, h/o chronic R DVT, 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 BLE cellulitis -recent infection with Pseudomonas, Alcaligenes, and Enterococcus. As per ID consult notes on 05/19, 05/20: patient being restarted on amoxicillin and ciprofloxacin likely in the range of 7-14 days -wound care debrided blisters on 05/18/17 History of Right lower extremity DVT/PE: -history of IVC filter -have been on Eliquis in recent past; on last admission and this admission there have been cardiology recommendations to continue with Eliquis, however given renal function and weight patient may benefit from coumadin -patient have been on heparin drip with plans to bridge to coumadin to achieve therapeutic INR, INR 2 on 05/22/17. If INR continues to be 2 to 3 on AM of Monday05/23/17 then heparin drip can be stopped Bilateral lower extremity swelling and pain -Multifactorial with h/o lymphedema, CHF, CKD, dietary non-compliance, missing diuretic at [facility] - DVT studies negative on 05/16/17 for more involvement of right leg DVT, could not tolerate repeat scan ordered on 05/19/17 due to scrotal discomfort -scrotal sling ordered, keep leg elevated -pain control with Lyrica,Fentanyl, dilaudid prn -nephrology consult managing swelling with Lasix and albumin, these orders have discontinued on 05/20/17, because of increased scrotal swelling was restarted on 05/21/17 due to leg pain and scrotal swelling -CT scans 05/22/17 no acute findings besides edema / CKD Stage IV -scrotal swelling, new urinary retention on trujillo, CT scans 05/22/17 no acute findings besides edema -urology consult placed, nephrology consult following the patient -monitor GFR Acute on chronic systolic/diastolic HF: -c/w with Lasix with albumin on this admission Chronic A Fib: -anticoagulation; off Eliquis and now on IV heparin with bridge to coumadin, INR 2 on 05/22/17, If INR continues to be 2 to 3 on AM of Monday05/23/17 then heparin drip can be stopped -Coreg for heart rate control HTN: -Stable -Continue home meds Hypothyroidism: -Continue levothyroxine DM II: -have been on Lantus and short acting insulin, due to recent episodes of hypoglycemia, have consulted pharmacy on insulin adjustments DVT Ppx: pharmacological anticoagulation FULL CODE PCP: Damián Dispo: SW consulted to help with discharge placement back to [facility] when medically improved and INR therapeutic levels stable Vital Signs: Date Time Temp Pulse Resp B/P (MAP) Pulse Ox O2 Delivery O2 Flow Rate FiO2 05/22/17 15:02 36.3 65 18 136/77 (96) 94 Room Air 05/22/17 08:00 Room Air 05/22/17 07:32 36.3 63 18 160/80 (106) 96 Room Air 05/22/17 00:00 Room Air 05/21/17 23:42 36.0 61 20 122/74 (90) 91 Room Air 05/21/17 20:41 67 127/77 (94) 05/21/17 20:00 Room Air Lab Results: Results Past 24 Hours Test 05/21/17 20:39 05/22/17 05:39 05/22/17 07:39 05/22/17 11:42 Range/Units Bedside Glucose 122 127 171 70-99 mg/dl White Blood Count 6.64 4.8-10.8 K/uL Red Blood Count 3.06 4.7-6.1 M/uL Hemoglobin 7.8 14.0-18.0 g/dL Hematocrit 24.9 42-52 % Mean Corpuscular Volume 81.4 80-100 fL Mean Corpuscular Hemoglobin 25.5 25-34 pg Mean Corpuscular Hemoglobin Concent 31.3 32-36 g/dl RDW Standard Deviation 54.7 36.4-46.3 fL RDW Coefficient of Variation 18.5 11.5-14.5 % Platelet Count 152 130-400 K/uL Mean Platelet Volume 10.0 7.4-10.4 fL Prothrombin Time 22.6 9.0-12.0 SECONDS Prothromb Time International Ratio 2.0 0.9-1.1 Activated Partial Thromboplast Time 77.6 21.0-31.0 SECONDS Partial Thromboplastin Ratio 3.0 Sodium Level 140 136-145 mmol/L Potassium Level 4.0 3.5-5.1 mmol/L Chloride Level 106 98-107 mmol/L Carbon Dioxide Level 21 21-32 mmol/L Anion Gap 13.0 3-11 mmol/L Blood Urea Nitrogen 82 7-18 mg/dl Creatinine 3.40 0.60-1.40 mg/dl Est Creatinine Clear Calc Drug Dose 45.7 ml/min Estimated GFR () 22.0 Estimated GFR (Non- 18.9 BUN/Creatinine Ratio 24.0 10-20 Random Glucose 115 70-99 mg/dl Calcium Level 7.9 8.5-10.1 mg/dl Total Bilirubin 0.5 0.2-1 mg/dl Aspartate Amino Transf (AST/SGOT) 20 15-37 U/L Alanine Aminotransferase (ALT/SGPT) 14 12-78 U/L Alkaline Phosphatase 166 45-117 U/L Total Protein 7.8 6.4-8.2 gm/dl Albumin 3.0 3.4-5.0 gm/dl Globulin 4.8 2.5-4.0 gm/dl Albumin/Globulin Ratio 0.6 0.9-2 Test 05/22/17 13:43 05/22/17 16:41 Range/Units Activated Partial Thromboplast Time 62.3 21.0-31.0 SECONDS Partial Thromboplastin Ratio 2.4 Bedside Glucose 130 70-99 mg/dl
--- NOTE | 2017-05-22 18:57 | Urology Consultation ---
History General Date of Service: May 22, 2017. Chief Complaint: urinary retention Primary Care Physician: Roberta Xiao Pt seen a urologist before?: No History of Present Illness I am asked by Dr Mason to evauate and treat patient for urinary retention. he is admitted for leg cellulitis and skin breakdown. He has severe scrotal edema. He has renal insufficiency and chronic severe LE edema. He is responding to debridement and iv abt and wound care. He was bladder scanned overnight and found to have 999mL and cathed for 1200mL. He feels like he has not voided well for a few days. he was voiding fine up to last week. Flow was fine. He has years of nocturia. He has no utis and no hematuria. Imaging Imaging: CT Laboratory Results Past 24 Hours Test 05/21/17 20:39 05/22/17 05:39 05/22/17 07:39 05/22/17 11:42 Range/Units Bedside Glucose 122 127 171 70-99 mg/dl White Blood Count 6.64 4.8-10.8 K/uL Red Blood Count 3.06 4.7-6.1 M/uL Hemoglobin 7.8 14.0-18.0 g/dL Hematocrit 24.9 42-52 % Mean Corpuscular Volume 81.4 80-100 fL Mean Corpuscular Hemoglobin 25.5 25-34 pg Mean Corpuscular Hemoglobin Concent 31.3 32-36 g/dl RDW Standard Deviation 54.7 36.4-46.3 fL RDW Coefficient of Variation 18.5 11.5-14.5 % Platelet Count 152 130-400 K/uL Mean Platelet Volume 10.0 7.4-10.4 fL Prothrombin Time 22.6 9.0-12.0 SECONDS Prothromb Time International Ratio 2.0 0.9-1.1 Activated Partial Thromboplast Time 77.6 21.0-31.0 SECONDS Partial Thromboplastin Ratio 3.0 Sodium Level 140 136-145 mmol/L Potassium Level 4.0 3.5-5.1 mmol/L Chloride Level 106 98-107 mmol/L Carbon Dioxide Level 21 21-32 mmol/L Anion Gap 13.0 3-11 mmol/L Blood Urea Nitrogen 82 7-18 mg/dl Creatinine 3.40 0.60-1.40 mg/dl Est Creatinine Clear Calc Drug Dose 45.7 ml/min Estimated GFR () 22.0 Estimated GFR (Non- 18.9 BUN/Creatinine Ratio 24.0 10-20 Random Glucose 115 70-99 mg/dl Calcium Level 7.9 8.5-10.1 mg/dl Total Bilirubin 0.5 0.2-1 mg/dl Aspartate Amino Transf (AST/SGOT) 20 15-37 U/L Alanine Aminotransferase (ALT/SGPT) 14 12-78 U/L Alkaline Phosphatase 166 45-117 U/L Total Protein 7.8 6.4-8.2 gm/dl Albumin 3.0 3.4-5.0 gm/dl Globulin 4.8 2.5-4.0 gm/dl Albumin/Globulin Ratio 0.6 0.9-2 Test 05/22/17 13:43 05/22/17 16:41 Range/Units Activated Partial Thromboplast Time 62.3 21.0-31.0 SECONDS Partial Thromboplastin Ratio 2.4 Bedside Glucose 130 70-99 mg/dl Labs were reviewed and are within normal limits unless listed below. Labs are available in the chart and at [facility] Problem List Medical Problems: (1) Altered mental status Status: Acute (2) Anemia Status: Acute (3) Anemia Status: Acute (4) Cellulitis Status: Acute (5) Cellulitis Status: Acute (6) CHF (congestive heart failure) Status: Acute (7) Confusion Status: Acute (8) Deep vein thrombosis Status: Acute (9) Hypoglycemia Status: Acute (10) Hypoxia Status: Acute (11) Shortness of breath Status: Acute (12) Vitreous hemorrhage Status: Acute Social History Problems: (1) DVT (deep venous thrombosis) Status: Acute Past History A Fib, arthritis, chronic back pain, coronary artery disease, depression, diabetes, heart disease, high cholesterol, hypertension, renal disease Family History FH: CAD (coronary artery disease) FATHER ( of [place] late 60's) Social History Hx Tobacco Use In Past Year?: No Smoking: non-smoker Alcohol: never Drug use: none Marital status: Housing status: other Occupation status: retired Immunizations History of Influenza Vaccine: Unknown History of MDRO Yes Type of MDRO: VRE Allergies Coded Allergies: Cephalosporins (Verified Allergy, Unknown, increased HR vs sick to stomach , pt unsure abx allergy to?, 05/05/17) Clindamycin (Verified Allergy, Unknown, increased HR vs sick to stomach, pt unsure abx allergy to?, 05/05/17) Iodinated Diagnostic Agents (Verified Allergy, Unknown, unknown, 04/04/17) Penicillins (Unverified Allergy, Unknown, increased HR vs sick to stomach , pt unsure abx allergy to?, 05/05/17) Perflutren (Verified Allergy, Unknown, PERFLUTREN LIPID MICROSPHERES, 04/04) Medications Home Medications: Home Meds and Scripts Medications Dose Route/Sig Max Daily Dose Days Date Category Dose Instructions Milk Of Magnesia (Magnesium Hydroxide) 30 Ml Susp 30 Ml PO UD PRN 05/16/17 Reported Amoxil (Amoxicillin) 500 Mg Cap 500 Mg PO TID 05/16/17 Reported STARTED 05/09/17 Lipitor (Atorvastatin Calcium) 40 Mg Tab 80 Mg PO HS 05/16/17 Reported UES 40MG TABS FOR 80MG DOSE Cipro (Ciprofloxacin Hcl) 500 Mg Tab 500 Mg PO BID 05/16/17 Reported STARTED 05/09. LAST DOSE TO BE GIVEN 05/23 @0800 Effexor (Venlafaxine Hcl) 75 Mg Tab 75 Mg PO QAM 05/16/17 Reported Tylenol (Acetaminophen) 650 Mg Supp 650 Mg DC Q6H PRN 05/16/17 Reported Insta-Glucose (Dextrose (Diabetic Use)) 77.4 % Gel 1 Appln PO UD PRN 05/16/17 Reported Tylenol W/Codeine #3 (Acetaminophen/Codeine Phosphate) 300 Mg/30 Mg Tab 1 Tab PO Q6H PRN 05/16/17 Reported Claritin (Loratadine) 10 Mg Tab 10 Mg PO DAILY 05/01/17 Reported Atarax (Hydroxyzine Hcl) 25 Mg Tab 25 Mg PO QID PRN 05/01/17 Reported Lyrica (Pregabalin) 75 Mg Cap 75 Mg PO BID 05/01/17 Reported Zofran (Ondansetron HCl) 4 Mg Tab 4-8 Mg PO Q8 PRN 04/04/17 Reported Glucagon Emergency Kit (Glucagon) 1 Mg Kit 04/04/17 Reported Fentanyl 12 Mcg Tdsy 12 Mcg TOP [id number] 04/04/17 Reported Novolog (Insulin Aspart) 100 Units/Ml Inj 15 Units SQ TIDM 04/04/17 Reported Levemir (Insulin Detemir) 100 Units/Ml Inj 35 Units SQ BID 04/04/17 Reported Eliquis (Apixaban) 5 Mg Tab 5 Mg PO BID 04/04/17 Reported Trazodone (Trazodone HCl) 50 Mg Tab 50 Mg PO HS 04/04/17 Reported Nexium (Esomeprazole Magnesium) 40 Mg Capcr 40 Mg PO DAILY 04/04/17 Reported Melatonin 5 Mg Tab 10 Mg PO HS 04/04/17 Reported Tylenol (Acetaminophen) 500 Mg Tab 500 Mg PO Q4 PRN 12/07/16 Reported use for mild pain 1-3 or fever >101f max 3gm apap/24hr Ventolin Hfa (Albuterol) 200 Puffs/57216 Mcg Aers 2 Puffs INH Q6H PRN 12/07/16 Reported Dulcolax (Bisacodyl) 10 Mg Sup 1 Supp DC Q24H PRN 12/07/16 Reported Nitrostat (Nitroglycerin) 0.4 Mg Tab 0.4 Mg UT UD PRN 12/07/16 Reported Theragran-M (Multiple Vitamins W/ Minerals) 1 Tab Tab 1 Tab PO QAM 12/07/16 Reported Miralax (Polyethylene Glycol 3350) 1 Pow Pow 17 Gm PO DAILY 12/07/16 Reported Ursodiol 300 Mg Cap 300 Mg PO BID 11/15/16 Reported Sennalax-S (Sennosides-Docusate Sodium) 1 Tab Tab 2 Tabs PO HS 11/15/16 Reported Coreg (Carvedilol) 25 Mg Tab 25 Mg PO BID 11/15/16 Reported Inpatient Medications: Current Inpatient Medications Medications (Trade) Dose Ordered Sig/Miguel Route Start Time Stop Time Status Last Admin Dose Admin Ondansetron HCl (Zofran Inj) 4 mg Q6H PRN IV 05/16/17 17:30 06/15/17 17:29 Insulin Aspart (novoLOG ASPART) SLIDING SCALE If C... ACHS SC 05/16/17 21:00 06/15/17 20:59 05/22/17 17:53 5 UNITS Glucose (Glucose 40% Gel) 15-30 GRAMS 15 GRAMS... UD PRN PO 05/16/17 17:30 06/15/17 17:29 Glucose (Glucose Chew Tab) 4-8 Tablets 4 Tabl... UD PRN PO 05/16/17 17:30 06/15/17 17:29 Dextrose (Dextrose 50% 50ML Syringe) 25-50ML OF 50% DW IV FOR... UD PRN IV 05/16/17 17:30 06/15/17 17:29 Glucagon (Glucagon Inj) 1 mg UD PRN SQ 05/16/17 17:30 06/15/17 17:29 Acetaminophen (Tylenol Tab) 500 mg Q4 PRN PO 05/16/17 19:15 06/15/17 19:14 05/22/17 13:42 500 MG Acetaminophen/ Codeine Phosphate (Tylenol w/ Codeine #3 Tab) 1 tab Q6H PRN PO 05/16/17 19:15 06/15/17 19:14 05/22/17 11:19 1 TAB Albuterol (Ventolin Hfa Inhaler) 2 puffs Q6H PRN INH 05/16/17 19:15 06/15/17 19:14 Amoxicillin (Amoxil Cap) 500 mg TID PO 05/16/17 21:00 05/26/17 20:59 05/22/17 13:40 500 MG Atorvastatin Calcium (Lipitor Tab) 80 mg HS PO 05/16/17 21:00 06/15/17 20:59 05/21/17 20:54 80 MG Bisacodyl (Dulcolax Supp) 10 mg Q24H PRN DC 05/16/17 19:15 06/15/17 19:14 Carvedilol (Coreg Tab) 25 mg BID PO 05/16/17 21:00 06/15/17 20:59 05/22/17 08:03 25 MG Ciprofloxacin (Cipro Tab) 500 mg BID PO 05/16/17 21:00 05/26/17 20:59 05/22/17 08:03 500 MG Fentanyl (Duragesic Patch) 12 mcg Q72H TD 05/18/17 09:00 06/01/17 08:59 05/21/17 09:26 12 MCG Hydroxyzine HCl (Vistaril Tab) 25 mg QID PRN PO 05/16/17 19:15 06/15/17 19:14 05/21/17 09:24 25 MG Loratadine (Claritin Tab) 10 mg DAILY PO 05/17/17 09:00 06/16/17 08:59 05/20/17 08:43 10 MG Magnesium Hydroxide (Milk Of Magnesia Susp) 30 ml UD PRN PO 05/16/17 19:15 06/15/17 19:14 Nitroglycerin (Nitrostat Tab) 0.4 mg UD PRN UT 05/16/17 19:15 06/15/17 19:14 Ondansetron HCl (Zofran Tab) 4 mg Q8 PRN PO 05/16/17 19:15 06/15/17 19:14 Pregabalin (Lyrica Cap) 75 mg BID PO 05/16/17 21:00 06/15/17 20:59 05/22/17 08:04 75 MG Senna/Docusate Sodium (Senokot S Tab) 2 tab HS PO 05/16/17 21:00 06/15/17 20:59 05/21/17 20:54 2 TAB Trazodone HCl (Desyrel Tab) 50 mg HS PO 05/16/17 21:00 06/15/17 20:59 05/21/17 20:54 50 MG Ursodiol (Actigall Cap) 300 mg BID PO 05/16/17 21:00 06/15/17 20:59 05/22/17 08:02 300 MG Venlafaxine HCl (effeXOR TAB) 75 mg QAM PO 05/17/17 09:00 06/16/17 08:59 05/22/17 08:05 75 MG Pantoprazole Sodium (Protonix Tab) 40 mg QAM PO 05/17/17 09:00 06/16/17 08:59 05/22/17 08:03 40 MG Miscellaneous (Fentanyl Patch Remove & Waste) 1 ea Q3D N/A 05/18/17 08:59 06/17/17 08:58 05/21/17 09:20 1 EA Miscellaneous Information (Check Fentanyl Patch Placement) 1 ea QS N/A 05/17/17 00:00 06/16/17 00:00 05/22/17 15:50 1 EA Ergocalciferol (Vitamin D Cap) 50,000 interunit DAILY PO 05/17/17 09:00 05/24/17 08:59 05/22/17 08:05 50,000 INTERUNIT Nystatin (Mycostatin Powder) 1 appln DAILY EXT 05/18/17 12:00 06/17/17 11:59 05/22/17 08:05 1 APPLN Miscellaneous Information (Consult Glycemic Management Pharmacy) 1 ea UD N/A 05/19/17 10:12 06/18/17 10:11 Insulin Glargine (Lantus Solostar Pen) Q12 SC 05/19/17 21:00 06/18/17 20:59 Future hold 05/22/17 08:15 8 UNITS Warfarin Sodium (Coumadin Tab) 10 mg DAILY@16 PO 05/19/17 16:00 06/18/17 15:59 05/22/17 15:53 10 MG Heparin Sodium/ Dextrose 500 ml @ 39 mls/hr [id number] PRN IV 05/19/17 21:00 06/18/17 20:59 05/22/17 08:14 39 MLS/HR Furosemide 80 mg/ Albumin Human 58 ml @ 54 mls/hr TID IV 05/21/17 14:00 05/24/17 13:59 05/22/17 14:24 54 MLS/HR Senna (Senokot Tab) 8.6 mg QAM PO 05/22/17 08:00 06/21/17 07:59 05/22/17 08:03 8.6 MG Docusate Sodium (coLACE CAP) 100 mg BID PO 05/21/17 20:00 06/20/17 19:59 05/22/17 08:04 100 MG Hydromorphone HCl (Dilaudid Inj) 0.5 mg Q4H PRN IV 05/22/17 05:15 06/05/17 05:14 05/22/17 15:55 0.5 MG Hydromorphone HCl (Dilaudid Inj) 2 mg TODAY@1130 IV 05/22/17 11:30 05/22/17 23:59 05/22/17 11:43 2 MG Metolazone (Zaroxolyn Tab) 2.5 mg TID@0730,1330,1930 PO 05/22/17 19:30 06/21/17 19:29 Tamsulosin HCl (Flomax Cap) 0.4 mg HS PO 05/22/17 21:00 06/21/17 20:59 UNV Review of Systems Review of Systems Constitutional: No fever, No chills, No weight loss Neurological: No dizzy Endocrine: No excessive thirst, No too hot, No too cold Gastrointestinal: No indigestion, No nausea, No vomiting Cardiovascular: + chest pain, + palpitations, + swelling ankles/feet Respiratory: + shortness of breath, + chronic cough Male : + frequent urination, + nocturia more than once/night Physical Exam Vital Signs: Vital Signs Past 12 Hours Date Time Temp Pulse Resp B/P (MAP) Pulse Ox O2 Delivery O2 Flow Rate FiO2 05/22/17 16:00 94 Room Air 05/22/17 15:02 36.3 65 18 136/77 (96) 94 Room Air 05/22/17 08:00 Room Air 05/22/17 07:32 36.3 63 18 160/80 (106) 96 Room Air Physical Exam: General Appearance: WD/WN, no apparent distress, + obese (morbidly obese) Eyes: bilateral eyes normal inspection ENT: hearing grossly normal Neck: supple, trachea midline, + JVD Respiratory/Chest: chest non-tender, no respiratory distress, no accessory muscle use Gastrointestinal: Abdomen: normal abdomen Renal: normal renal Hernia: absent hernia Genitourinary - Male: Penis: pertinent finding (buried penis due to obesity and edema. trujillo in place draining clear urine. , scrotum severe edematous and in dependent location. ) Anus / Perineum: normal anus/perineum Sphincter Tone: poor Prostate: normal prostate, size (40 grams), gr asymmetric Extremities: + pertinent finding (+ edema, + dry gangrene on toe, + blistering of skin, red tender R.L many dressings all clean. ) Neurologic/Psychiatric: alert, normal mood/affect, oriented x 3, + pertinent finding (he was VERY hard to wake up but once awake was fully oriented. ) Assessment & Plan Assessment & Plan urinary retention seems new no hydro on ct suspect due to immobility small prostate suggest void trial once more mobile. may try flomax once ready for void trial Will be interesting to see if creatinine improves any with trujillo
[2017-05-22] MEDS: METOLAZONE 2.5 MG TAB PO SCH (19:40)
--- NOTE | 2017-05-22 20:04 | Infectious Disease Progress Nt ---
Progress Note Date of Service May 22, 2017. Subjective Pt evaluation today including: conversation w/ patient, physical exam, chart review, lab review, review of studies, conversation w/ business consultant, review of inpatient medication list events reviewed. Patient developed urinary retention, Vivas catheter placed. No fever. Still with severe leg and scrotal swelling. All Other Systems: Reviewed and Negative Medications Current Inpatient Medications Medications (Trade) Dose Ordered Sig/Miguel Route Start Time Stop Time Status Last Admin Dose Admin Ondansetron HCl (Zofran Inj) 4 mg Q6H PRN IV 05/16/17 17:30 06/15/17 17:29 Insulin Aspart (novoLOG ASPART) SLIDING SCALE If C... ACHS SC 05/16/17 21:00 06/15/17 20:59 05/22/17 17:53 5 UNITS Glucose (Glucose 40% Gel) 15-30 GRAMS 15 GRAMS... UD PRN PO 05/16/17 17:30 06/15/17 17:29 Glucose (Glucose Chew Tab) 4-8 Tablets 4 Tabl... UD PRN PO 05/16/17 17:30 06/15/17 17:29 Dextrose (Dextrose 50% 50ML Syringe) 25-50ML OF 50% DW IV FOR... UD PRN IV 05/16/17 17:30 06/15/17 17:29 Glucagon (Glucagon Inj) 1 mg UD PRN SQ 05/16/17 17:30 06/15/17 17:29 Acetaminophen (Tylenol Tab) 500 mg Q4 PRN PO 05/16/17 19:15 06/15/17 19:14 05/22/17 13:42 500 MG Acetaminophen/ Codeine Phosphate (Tylenol w/ Codeine #3 Tab) 1 tab Q6H PRN PO 05/16/17 19:15 06/15/17 19:14 05/22/17 18:54 1 TAB Albuterol (Ventolin Hfa Inhaler) 2 puffs Q6H PRN INH 05/16/17 19:15 06/15/17 19:14 Amoxicillin (Amoxil Cap) 500 mg TID PO 05/16/17 21:00 05/26/17 20:59 05/22/17 13:40 500 MG Atorvastatin Calcium (Lipitor Tab) 80 mg HS PO 05/16/17 21:00 06/15/17 20:59 05/21/17 20:54 80 MG Bisacodyl (Dulcolax Supp) 10 mg Q24H PRN [place] 05/16/17 19:15 06/15/17 19:14 Carvedilol (Coreg Tab) 25 mg BID PO 05/16/17 21:00 06/15/17 20:59 05/22/17 08:03 25 MG Ciprofloxacin (Cipro Tab) 500 mg BID PO 05/16/17 21:00 05/26/17 20:59 05/22/17 08:03 500 MG Fentanyl (Duragesic Patch) 12 mcg Q72H TD 05/18/17 09:00 06/01/17 08:59 05/21/17 09:26 12 MCG Hydroxyzine HCl (Vistaril Tab) 25 mg QID PRN PO 05/16/17 19:15 06/15/17 19:14 05/21/17 09:24 25 MG Loratadine (Claritin Tab) 10 mg DAILY PO 05/17/17 09:00 06/16/17 08:59 05/20/17 08:43 10 MG Magnesium Hydroxide (Milk Of Magnesia Susp) 30 ml UD PRN PO 05/16/17 19:15 06/15/17 19:14 Nitroglycerin (Nitrostat Tab) 0.4 mg UD PRN [place] 05/16/17 19:15 06/15/17 19:14 Ondansetron HCl (Zofran Tab) 4 mg Q8 PRN PO 05/16/17 19:15 06/15/17 19:14 Pregabalin (Lyrica Cap) 75 mg BID PO 05/16/17 21:00 06/15/17 20:59 05/22/17 08:04 75 MG Senna/Docusate Sodium (Senokot S Tab) 2 tab HS PO 05/16/17 21:00 06/15/17 20:59 05/21/17 20:54 2 TAB Trazodone HCl (Desyrel Tab) 50 mg HS PO 05/16/17 21:00 06/15/17 20:59 05/21/17 20:54 50 MG Ursodiol (Actigall Cap) 300 mg BID PO 05/16/17 21:00 06/15/17 20:59 05/22/17 08:02 300 MG Venlafaxine HCl (effeXOR TAB) 75 mg QAM PO 05/17/17 09:00 06/16/17 08:59 05/22/17 08:05 75 MG Pantoprazole Sodium (Protonix Tab) 40 mg QAM PO 05/17/17 09:00 06/16/17 08:59 05/22/17 08:03 40 MG Miscellaneous (Fentanyl Patch Remove & Waste) 1 ea Q3D N/A 05/18/17 08:59 06/17/17 08:58 05/21/17 09:20 1 EA Miscellaneous Information (Check Fentanyl Patch Placement) 1 ea QS N/A 05/17/17 00:00 06/16/17 00:00 05/22/17 15:50 1 EA Ergocalciferol (Vitamin D Cap) 50,000 interunit DAILY PO 05/17/17 09:00 05/24/17 08:59 05/22/17 08:05 50,000 INTERUNIT Nystatin (Mycostatin Powder) 1 appln DAILY EXT 05/18/17 12:00 06/17/17 11:59 05/22/17 08:05 1 APPLN Miscellaneous Information (Consult Glycemic Management Pharmacy) 1 ea UD N/A 05/19/17 10:12 06/18/17 10:11 Insulin Glargine (Lantus Solostar Pen) Q12 SC 05/19/17 21:00 06/18/17 20:59 Future hold 05/22/17 08:15 8 UNITS Warfarin Sodium (Coumadin Tab) 10 mg DAILY@16 PO 05/19/17 16:00 06/18/17 15:59 05/22/17 15:53 10 MG Heparin Sodium/ Dextrose 500 ml @ 39 mls/hr [id number] PRN IV 05/19/17 21:00 06/18/17 20:59 05/22/17 08:14 39 MLS/HR Furosemide 80 mg/ Albumin Human 58 ml @ 54 mls/hr TID IV 05/21/17 14:00 05/24/17 13:59 05/22/17 14:24 54 MLS/HR Senna (Senokot Tab) 8.6 mg QAM PO 05/22/17 08:00 06/21/17 07:59 05/22/17 08:03 8.6 MG Docusate Sodium (coLACE CAP) 100 mg BID PO 05/21/17 20:00 06/20/17 19:59 05/22/17 08:04 100 MG Hydromorphone HCl (Dilaudid Inj) 0.5 mg Q4H PRN IV 05/22/17 05:15 06/05/17 05:14 05/22/17 19:41 0.5 MG Hydromorphone HCl (Dilaudid Inj) 2 mg TODAY@1130 IV 05/22/17 11:30 05/22/17 23:59 05/22/17 11:43 2 MG Metolazone (Zaroxolyn Tab) 2.5 mg TID@0730,1330,1930 PO 05/22/17 19:30 06/21/17 19:29 05/22/17 19:40 2.5 MG Tamsulosin HCl (Flomax Cap) 0.4 mg HS PO 05/22/17 21:00 06/21/17 20:59 Objective Vital Signs Date Time Temp Pulse Resp B/P (MAP) Pulse Ox O2 Delivery O2 Flow Rate FiO2 05/22/17 16:00 94 Room Air 05/22/17 15:02 36.3 65 18 136/77 (96) 94 Room Air 05/22/17 08:00 Room Air 05/22/17 07:32 36.3 63 18 160/80 (106) 96 Room Air 05/22/17 00:00 Room Air 05/21/17 23:42 36.0 61 20 122/74 (90) 91 Room Air 05/21/17 20:41 67 127/77 (94) Physical Exam General Appearance: WD/WN, no apparent distress, + obese Eyes: normal inspection, EOMI, sclerae normal ENT: normal ENT inspection, pharynx normal Neck: supple, no adenopathy, thyroid normal, trachea midline Respiratory/Chest: chest non-tender, lungs clear, normal breath sounds, no respiratory distress Cardiovascular: no gallop, no murmur, + irregularly irregular Abdomen: normal bowel sounds, non tender, soft, no organomegaly Extremities: + inflammation, + swelling Neurologic/Psychiatric: alert, oriented x 3 Skin: normal color, no rash Lymphatic: no adenopathy Laboratory Results Last 24 Hours Test 05/21/17 20:39 05/22/17 05:39 05/22/17 07:39 05/22/17 11:42 Bedside Glucose 122 mg/dl 127 mg/dl 171 mg/dl White Blood Count 6.64 K/uL Red Blood Count 3.06 M/uL Hemoglobin 7.8 g/dL Hematocrit 24.9 % Mean Corpuscular Volume 81.4 fL Mean Corpuscular Hemoglobin 25.5 pg Mean Corpuscular Hemoglobin Concent 31.3 g/dl RDW Standard Deviation 54.7 fL RDW Coefficient of Variation 18.5 % Platelet Count 152 K/uL Mean Platelet Volume 10.0 fL Prothrombin Time 22.6 SECONDS Prothromb Time International Ratio 2.0 Activated Partial Thromboplast Time 77.6 SECONDS Partial Thromboplastin Ratio 3.0 Sodium Level 140 mmol/L Potassium Level 4.0 mmol/L Chloride Level 106 mmol/L Carbon Dioxide Level 21 mmol/L Anion Gap 13.0 mmol/L Blood Urea Nitrogen 82 mg/dl Creatinine 3.40 mg/dl Est Creatinine Clear Calc Drug Dose 45.7 ml/min Estimated GFR () 22.0 Estimated GFR (Non- 18.9 BUN/Creatinine Ratio 24.0 Random Glucose 115 mg/dl Calcium Level 7.9 mg/dl Total Bilirubin 0.5 mg/dl Aspartate Amino Transf (AST/SGOT) 20 U/L Alanine Aminotransferase (ALT/SGPT) 14 U/L Alkaline Phosphatase 166 U/L Total Protein 7.8 gm/dl Albumin 3.0 gm/dl Globulin 4.8 gm/dl Albumin/Globulin Ratio 0.6 Test 05/22/17 13:43 05/22/17 16:41 Activated Partial Thromboplast Time 62.3 SECONDS Partial Thromboplastin Ratio 2.4 Bedside Glucose 130 mg/dl Assessment and Plan 56-year-old male with lower extremity severe edema with leg ulcerations with recent infection with Pseudomonas, Alcaligenes, and Enterococcus. Would continue patient on amoxicillin and ciprofloxacin, likely in the range of 7-14 days. Will follow.
[2017-05-22] MEDS: DOCUSATE SODIUM/SENNA 50/8.6MG TAB PO SCH (20:22)
[2017-05-22] MEDS: TAMSULOSIN HCL 0.4 MG CAP PO SCH (20:24)
[2017-05-22] MEDS: TRAZODONE HCL 50 MG TAB PO SCH (20:28)
[2017-05-22] MEDS: ATORVASTATIN 40 MG TAB PO SCH (20:29)
[2017-05-23 00:17] VITALS: BP 151/86; PULSE 63; TEMP 36.7; O2SAT 95
[2017-05-23] MEDS: CHECK FENTANYL PATCH PLACEMENT SCH ×3 (00:25→16:00)
[2017-05-23] MEDS: HYDROmorphone INJ 0.5 MG/0.5 ML SYR IV PRN ×6 (03:08→23:46)
[2017-05-23] MEDS: ACETAMINOPHEN/CODEINE 300/30MG TAB PO PRN ×3 (05:46→20:13)
[2017-05-23 06:14] LABS: INR 4.2 (0.9-1.1); PROTHROMBIN TIME (PATIENT) 47.5 SECONDS (9.0-12.0)
[2017-05-23] MEDS: HEPARIN 25,000 UNIT/500ML D5W 500 ML IV PRN (06:56)
[2017-05-23 07:42] VITALS: BP 137/80; PULSE 64; TEMP 36.8; O2SAT 93
[2017-05-23] MEDS: PREGABALIN 75 MG CAP PO SCH ×2 (07:58→20:13)
[2017-05-23] MEDS: ALBUMIN 25% 50 ML with FUROSEMIDE INJ 80 MG IV SCH ×6 (07:58→21:11)
[2017-05-23] MEDS: METOLAZONE 2.5 MG TAB PO SCH ×3 (07:59→20:01)
[2017-05-23] MEDS: CARVEDILOL 25 MG TAB PO SCH ×2 (07:59→20:06)
[2017-05-23] MEDS: AMOXICILLIN 500 MG CAP PO SCH ×3 (07:59→20:07)
[2017-05-23] MEDS: PANTOprazole SOD 40 MG TAB PO SCH (07:59)
[2017-05-23] MEDS: LORATADINE 10 MG TAB PO SCH (07:59)
[2017-05-23] MEDS: URSODIOL 300 MG CAP PO SCH ×2 (08:00→20:04)
[2017-05-23] MEDS: ERGOCALCIFEROL 50,000 INTER.UNIT CAP PO SCH (08:00)
[2017-05-23] MEDS: CIPROFLOXACIN 500 MG TAB PO SCH ×2 (08:00→20:03)
[2017-05-23] MEDS: DOCUSATE SODIUM 100 MG CAP PO SCH ×2 (08:00→20:02)
[2017-05-23] MEDS: SENNA 8.6 MG TAB PO SCH (08:00)
[2017-05-23] MEDS: VENLAFAXINE HCL 50 MG TAB PO SCH (08:00)
[2017-05-23] MEDS: NYSTATIN POWDER 15GM BTL EXT SCH (08:01)
[2017-05-23] MEDS: INSULIN GLARGINE SOLOSTAR 100 UNITS/ML 3 ML PEN SC SCH ×2 (08:04→21:20)
[2017-05-23] MEDS: INSULIN ASPART 100 UNITS/ML 3 ML PEN SC SCH ×4 (09:04→21:00)
[2017-05-23 09:44] LABS: BUN/CREATININE RATIO 23.9 (10-20); CALCIUM 8.2 mg/dl (8.5-10.1); CREATININE 3.2 mg/dl (0.60-1.40); POTASSIUM 3.9 mmol/L (3.5-5.1)
[2017-05-23] MEDS ORDERED: NURSING VERBAL MED ORDER ONE ×2 (10:30→23:30)
[2017-05-23 10:50] LABS: ALBUMIN % 60.34 %; ALPHA-2-GLOBULIN % 4.93 %; BETA GLOBULIN % 12.28 %; CREATININE UR 50 MG/DL (20-370); GAMMA GLOBULIN % 21.35 %
[2017-05-23] MEDS: hydrOXYzine HCL 25 MG TAB PO PRN (13:46)
[2017-05-23 15:40] VITALS: BP 129/73; PULSE 64; TEMP 36.6; O2SAT 95
[2017-05-23] MEDS ORDERED: AMOXICILLIN CONSULT PHARMACY STA (16:23)
[2017-05-23] MEDS ORDERED: CIPROFLOXACIN CONSULT ACTIVE PRN ×2 (17:15)
--- NOTE | 2017-05-23 19:07 | Infectious Disease Progress Nt ---
Progress Note Date of Service May 23, 2017. Subjective Pt evaluation today including: conversation w/ patient, physical exam, chart review, lab review, review of studies, conversation w/ crm consultant, review of inpatient medication list still with some pain in his right leg. Otherwise no new complaints. Remains afebrile. All Other Systems: Reviewed and Negative Medications Current Inpatient Medications Medications (Trade) Dose Ordered Sig/Miguel Route Start Time Stop Time Status Last Admin Dose Admin Ondansetron HCl (Zofran Inj) 4 mg Q6H PRN IV 05/16/17 17:30 06/15/17 17:29 Insulin Aspart (novoLOG ASPART) SLIDING SCALE If C... ACHS SC 05/16/17 21:00 06/15/17 20:59 05/23/17 17:59 4 UNITS Glucose (Glucose 40% Gel) 15-30 GRAMS 15 GRAMS... UD PRN PO 05/16/17 17:30 06/15/17 17:29 Glucose (Glucose Chew Tab) 4-8 Tablets 4 Tabl... UD PRN PO 05/16/17 17:30 06/15/17 17:29 Dextrose (Dextrose 50% 50ML Syringe) 25-50ML OF 50% DW IV FOR... UD PRN IV 05/16/17 17:30 06/15/17 17:29 Glucagon (Glucagon Inj) 1 mg UD PRN SQ 05/16/17 17:30 06/15/17 17:29 Acetaminophen (Tylenol Tab) 500 mg Q4 PRN PO 05/16/17 19:15 06/15/17 19:14 05/22/17 13:42 500 MG Acetaminophen/ Codeine Phosphate (Tylenol w/ Codeine #3 Tab) 1 tab Q6H PRN PO 05/16/17 19:15 06/15/17 19:14 05/23/17 11:46 1 TAB Albuterol (Ventolin Hfa Inhaler) 2 puffs Q6H PRN INH 05/16/17 19:15 06/15/17 19:14 Amoxicillin (Amoxil Cap) 500 mg TID PO 05/16/17 21:00 05/26/17 20:59 05/23/17 13:17 500 MG Atorvastatin Calcium (Lipitor Tab) 80 mg HS PO 05/16/17 21:00 06/15/17 20:59 05/22/17 20:29 80 MG Bisacodyl (Dulcolax Supp) 10 mg Q24H PRN [place] 05/16/17 19:15 06/15/17 19:14 Carvedilol (Coreg Tab) 25 mg BID PO 05/16/17 21:00 06/15/17 20:59 05/23/17 07:59 25 MG Ciprofloxacin (Cipro Tab) 500 mg BID PO 05/16/17 21:00 05/26/17 20:59 05/23/17 08:00 500 MG Fentanyl (Duragesic Patch) 12 mcg Q72H TD 05/18/17 09:00 06/01/17 08:59 05/21/17 09:26 12 MCG Hydroxyzine HCl (Vistaril Tab) 25 mg QID PRN PO 05/16/17 19:15 06/15/17 19:14 05/23/17 13:46 25 MG Loratadine (Claritin Tab) 10 mg DAILY PO 05/17/17 09:00 06/16/17 08:59 05/23/17 07:59 10 MG Magnesium Hydroxide (Milk Of Magnesia Susp) 30 ml UD PRN PO 05/16/17 19:15 06/15/17 19:14 Nitroglycerin (Nitrostat Tab) 0.4 mg UD PRN UT 05/16/17 19:15 06/15/17 19:14 Ondansetron HCl (Zofran Tab) 4 mg Q8 PRN PO 05/16/17 19:15 06/15/17 19:14 Pregabalin (Lyrica Cap) 75 mg BID PO 05/16/17 21:00 06/15/17 20:59 05/23/17 07:58 75 MG Senna/Docusate Sodium (Senokot S Tab) 2 tab HS PO 05/16/17 21:00 06/15/17 20:59 05/22/17 20:22 2 TAB Trazodone HCl (Desyrel Tab) 50 mg HS PO 05/16/17 21:00 06/15/17 20:59 05/22/17 20:28 50 MG Ursodiol (Actigall Cap) 300 mg BID PO 05/16/17 21:00 06/15/17 20:59 05/23/17 08:00 300 MG Venlafaxine HCl (effeXOR TAB) 75 mg QAM PO 05/17/17 09:00 06/16/17 08:59 05/23/17 08:00 75 MG Pantoprazole Sodium (Protonix Tab) 40 mg QAM PO 05/17/17 09:00 06/16/17 08:59 05/23/17 07:59 40 MG Miscellaneous (Fentanyl Patch Remove & Waste) 1 ea Q3D N/A 05/18/17 08:59 06/17/17 08:58 05/21/17 09:20 1 EA Miscellaneous Information (Check Fentanyl Patch Placement) 1 ea QS N/A 05/17/17 00:00 06/16/17 00:00 05/23/17 16:00 1 EA Ergocalciferol (Vitamin D Cap) 50,000 interunit DAILY PO 05/17/17 09:00 05/24/17 08:59 05/23/17 08:00 50,000 INTERUNIT Nystatin (Mycostatin Powder) 1 appln DAILY EXT 05/18/17 12:00 06/17/17 11:59 05/23/17 08:01 1 APPLN Miscellaneous Information (Consult Glycemic Management Pharmacy) 1 ea UD N/A 05/19/17 10:12 06/18/17 10:11 Insulin Glargine (Lantus Solostar Pen) Q12 SC 05/19/17 21:00 06/18/17 20:59 Future hold 05/23/17 08:04 8 UNITS Warfarin Sodium (Coumadin Tab) 10 mg DAILY@16 PO 05/19/17 16:00 06/18/17 15:59 Future hold 05/22/17 15:53 10 MG Furosemide 80 mg/ Albumin Human 58 ml @ 54 mls/hr TID IV 05/21/17 14:00 05/24/17 13:59 05/23/17 14:04 54 MLS/HR Senna (Senokot Tab) 8.6 mg QAM PO 05/22/17 08:00 06/21/17 07:59 05/23/17 08:00 8.6 MG Docusate Sodium (coLACE CAP) 100 mg BID PO 05/21/17 20:00 06/20/17 19:59 05/23/17 08:00 100 MG Hydromorphone HCl (Dilaudid Inj) 0.5 mg Q4H PRN IV 05/22/17 05:15 06/05/17 05:14 05/23/17 18:01 0.5 MG Metolazone (Zaroxolyn Tab) 2.5 mg TID@0730,1330,1930 PO 05/22/17 19:30 06/21/17 19:29 05/23/17 13:17 2.5 MG Tamsulosin HCl (Flomax Cap) 0.4 mg HS PO 05/22/17 21:00 06/21/17 20:59 05/22/17 20:24 0.4 MG Ciprofloxacin (Consult) 1 ea UD PRN N/A 05/23/17 17:15 06/22/17 17:14 Objective Vital Signs Date Time Temp Pulse Resp B/P (MAP) Pulse Ox O2 Delivery O2 Flow Rate FiO2 05/23/17 16:04 Room Air 05/23/17 15:40 36.6 64 16 129/73 (91) 95 Room Air 05/23/17 08:51 Room Air 05/23/17 07:42 36.8 64 16 137/80 (99) 93 Room Air 05/23/17 00:17 36.7 63 20 151/86 (107) 95 Room Air 05/23/17 00:15 Room Air Physical Exam General Appearance: WD/WN, no apparent distress Eyes: normal inspection, EOMI, sclerae normal ENT: normal ENT inspection, pharynx normal Neck: supple, no adenopathy, trachea midline Respiratory/Chest: chest non-tender, lungs clear, normal breath sounds, no respiratory distress Cardiovascular: regular rate, rhythm, no gallop, no murmur Abdomen: normal bowel sounds, non tender, soft, no organomegaly Extremities: no calf tenderness, + inflammation, + swelling Neurologic/Psychiatric: alert, oriented x 3 ( Is not fingers are Magic) Skin: normal color, no rash, + pertinent finding ( leg slightly improved) Lymphatic: no adenopathy Laboratory Results Last 24 Hours Test 05/22/17 20:03 05/23/17 05:37 05/23/17 08:02 05/23/17 12:00 Bedside Glucose 136 mg/dl 121 mg/dl 159 mg/dl Prothrombin Time 47.5 SECONDS Prothromb Time International Ratio 4.2 Activated Partial Thromboplast Time 77.6 SECONDS Partial Thromboplastin Ratio 3.0 Sodium Level 141 mmol/L Potassium Level 3.9 mmol/L Chloride Level 108 mmol/L Carbon Dioxide Level 24 mmol/L Anion Gap 9.0 mmol/L Blood Urea Nitrogen 76 mg/dl Creatinine 3.20 mg/dl Est Creatinine Clear Calc Drug Dose 48.6 ml/min Estimated GFR () 23.6 Estimated GFR (Non- 20.4 BUN/Creatinine Ratio 23.9 Random Glucose 118 mg/dl Calcium Level 8.2 mg/dl Test 05/23/17 17:03 Bedside Glucose 119 mg/dl Assessment and Plan 56-year-old male with lower extremity severe edema with leg ulcerations with recent infection with Pseudomonas, Alcaligenes, and Enterococcus. Would continue patient on amoxicillin and ciprofloxacin, likely in the range of 7-14 days. Will follow.
--- NOTE | 2017-05-23 19:49 | Progress Note ---
Internal Med Progress Note Date of Service: May 23, 2017. Provider Documentation: SUBJECTIVE: resting comfortably complains of pain in right leg afebrile denies sob or cough no nausea OBJECTIVE: Vital Signs-as noted below Exam: General-alert and awake. Not in distress. Obese ENT-normal hearing Neck-no neck masses Lungs-cta b/l no wheezing or crackles Heart-s1 and s2 heard regular rate and rhythm no murmurs Abdomen-soft bowel sounds present non tender no distension Extremities-lower extremities in dressing. lower extremity edema present Neuro-alert and awake moves extremities Lab data as noted below. 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 BLE cellulitis HAd recent infection with Pseudomonas, Alcaligenes, and Enterococcus.Id recommends cipro and amoxicillin for 7-14 days course. History of Right lower extremity DVT/PE: history of IVC filter eiliquis has been changed to Coumadin secondary to worsening renal function iv heparin stopped as inr is 4.2 today. coumadin on hold. Bilateral lower extremity swelling and pain Multifactorial with h/o lymphedema, CHF, CKD, dietary non-compliance, missing diuretic at residential As per " DVT studies negative on 05/16/17 for more involvement of right leg DVT, could not tolerate repeat scan ordered on 05/19/17 due to scrotal discomfort" scrotal sling ordered, pain control with Lyrica,Fentanyl, dilaudid prn IV Lasix and albumin as per nephrology Arf ? on CKD Stage IV Management as per nephro f/u labs. Urinary retention has [facility] on board and appreciate inputs Acute on chronic systolic/diastolic HF: on iv Lasix with albumin will monitor Chronic A Fib: o coreg coumadin held for inr 4.2 HTN: stable on home meds Hypothyroidism: on levothyroxine DM II: on lantus and niss appreciate pharmacy inputs DVT Ppx:inr 4.2 FULL CODE Dispo: To be determined SW consulted to help with discharge placement back to [facility] when medically improved and INR therapeutic levels stable Vital Signs: Date Time Temp Pulse Resp B/P (MAP) Pulse Ox O2 Delivery O2 Flow Rate FiO2 10/10/17 16:04 Room Air 05/23/17 15:40 36.6 64 16 129/73 (91) 95 Room Air 05/23/17 08:51 Room Air 05/23/17 07:42 36.8 64 16 137/80 (99) 93 Room Air 05/23/17 00:17 36.7 63 20 151/86 (107) 95 Room Air 05/23/17 00:15 Room Air Lab Results: Results Past 24 Hours Test 05/22/17 20:03 05/23/17 05:37 05/23/17 08:02 05/23/17 12:00 Range/Units Bedside Glucose 136 121 159 70-99 mg/dl Prothrombin Time 47.5 9.0-12.0 SECONDS Prothromb Time International Ratio 4.2 0.9-1.1 Activated Partial Thromboplast Time 77.6 21.0-31.0 SECONDS Partial Thromboplastin Ratio 3.0 Sodium Level 141 136-145 mmol/L Potassium Level 3.9 3.5-5.1 mmol/L Chloride Level 108 98-107 mmol/L Carbon Dioxide Level 24 21-32 mmol/L Anion Gap 9.0 3-11 mmol/L Blood Urea Nitrogen 76 7-18 mg/dl Creatinine 3.20 0.60-1.40 mg/dl Est Creatinine Clear Calc Drug Dose 48.6 ml/min Estimated GFR () 23.6 Estimated GFR (Non- 20.4 BUN/Creatinine Ratio 23.9 10-20 Random Glucose 118 70-99 mg/dl Calcium Level 8.2 8.5-10.1 mg/dl Test 05/23/17 17:03 Range/Units Bedside Glucose 119 70-99 mg/dl
[2017-05-23] MEDS: TRAZODONE HCL 50 MG TAB PO SCH (20:02)
[2017-05-23] MEDS: ATORVASTATIN 40 MG TAB PO SCH (20:03)
[2017-05-23] MEDS: DOCUSATE SODIUM/SENNA 50/8.6MG TAB PO SCH (20:06)
[2017-05-23] MEDS: TAMSULOSIN HCL 0.4 MG CAP PO SCH (20:06)
[2017-05-23 20:09] VITALS: BP 122/79; PULSE 65
[2017-05-24] VITALS (8 sets, daily range): BP systolic 137–162; BP diastolic 75–95; PULSE 62–69; TEMP 36.7–37.1; O2SAT 93–95
[2017-05-24] MEDS: CHECK FENTANYL PATCH PLACEMENT SCH ×3 (00:21→16:10)
[2017-05-24] MEDS: HYDROmorphone INJ 0.5 MG/0.5 ML SYR IV PRN ×2 (03:10→06:43)
[2017-05-24] MEDS: ACETAMINOPHEN/CODEINE 300/30MG TAB PO PRN (04:07)
[2017-05-24 07:00] LABS: BASO % 0.5 %; BASO ABS # 0.05 K/uL (0-0.2); EOS % 3.5 %; HEMATOCRIT 26.4 % (42-52); IG% 0.2 %; LYMPH % 9.7 %; LYMPH ABS # 0.89 K/uL (1.2-3.4); MEAN CELL VOLUME 80.5 fL (80-100); MEAN CORPUSCULAR HGB CONC 31.1 g/dl (32-36); MEAN PLATELET VOLUME 10.2 fL (7.4-10.4); MONO % 8.9 %; NEUT % 77.2 %; PLATELET COUNT 183 K/uL (130-400); RED BLOOD COUNT 3.28 M/uL (4.7-6.1); WHITE BLOOD COUNT 9.13 K/uL (4.8-10.8)
[2017-05-24 07:15] LABS: PROTHROMBIN TIME (PATIENT) 77.3 SECONDS (9.0-12.0)
[2017-05-24 07:21] LABS: INR 6.7 (0.9-1.1)
[2017-05-24 07:27] LABS: ANISOCYTOSIS PRESENT; COMPLETE YES; HYPOCHROMIA PRESENT
[2017-05-24 07:31] LABS: BUN/CREATININE RATIO 25.4 (10-20); CALCIUM 8.7 mg/dl (8.5-10.1); CREATININE 3.3 mg/dl (0.60-1.40); MAGNESIUM 2.3 mg/dl (1.8-2.4); POTASSIUM 3.8 mmol/L (3.5-5.1)
[2017-05-24] MEDS ORDERED: HYDROmorphone INJ 1 MG/ML SYR ONE (07:54)
[2017-05-24] MEDS: METOLAZONE 2.5 MG TAB PO SCH ×3 (07:59→19:43)
[2017-05-24] MEDS ORDERED: HYDROmorphone INJ 1 MG/ML SYR IV PRN (08:00)
[2017-05-24] MEDS: NYSTATIN POWDER 15GM BTL EXT SCH (08:00)
[2017-05-24] MEDS: AMOXICILLIN 500 MG CAP PO SCH ×3 (08:00→19:44)
[2017-05-24] MEDS: LORATADINE 10 MG TAB PO SCH (08:00)
[2017-05-24] MEDS: CIPROFLOXACIN 500 MG TAB PO SCH ×2 (08:01→19:45)
[2017-05-24] MEDS: VENLAFAXINE HCL 50 MG TAB PO SCH (08:02)
[2017-05-24] MEDS: DOCUSATE SODIUM 100 MG CAP PO SCH ×2 (08:02→19:46)
[2017-05-24] MEDS: CARVEDILOL 25 MG TAB PO SCH ×2 (08:02→19:46)
[2017-05-24] MEDS: PANTOprazole SOD 40 MG TAB PO SCH (08:03)
[2017-05-24] MEDS: PREGABALIN 75 MG CAP PO SCH ×2 (08:03→20:12)
[2017-05-24] MEDS: SENNA 8.6 MG TAB PO SCH (08:03)
[2017-05-24] MEDS: ERGOCALCIFEROL 50,000 INTER.UNIT CAP PO SCH (08:04)
[2017-05-24] MEDS: URSODIOL 300 MG CAP PO SCH ×2 (08:05→19:44)
--- NOTE | 2017-05-24 09:17 | DIAGNOSTIC IMAGING REPORT ---
RIGHT LOWER EXTREMITY VENOUS DOPPLER HISTORY: severe right lower extremity pain COMPARISON STUDY: Venous Doppler 05/16/2017. FINDINGS: There is again noted nonocclusive thrombus seen within the right common femoral vein and proximal to mid superficial femoral vein. The patient was unable to complete the remaining examination to evaluate the distal superficial femoral vein, popliteal vein, calf vessels. IMPRESSION: No significant change in the nonocclusive thrombus within the right common femoral and superficial femoral veins. The remaining distal venous structures were not visualized as the patient was unable to complete the examination. Electronically signed by: Kike Shelton M.D. 05/24/2017 9:16 AM Dictated Date/Time: 05/24/2017 9:11 AM
[2017-05-24] MEDS: INSULIN ASPART 100 UNITS/ML 3 ML PEN SC SCH ×4 (09:40→20:16)
[2017-05-24] MEDS: INSULIN GLARGINE SOLOSTAR 100 UNITS/ML 3 ML PEN SC SCH ×2 (09:41→20:17)
[2017-05-24] MEDS: ALBUMIN 25% 50 ML with FUROSEMIDE INJ 80 MG IV SCH ×2 (09:46)
[2017-05-24] MEDS: FENTANYL PATCH REMOVE & WASTE SCH (09:54)
[2017-05-24] MEDS: FENTANYL 12 MCG/HR TDSY TD SCH (09:55)
[2017-05-24] MEDS ORDERED: HYDROmorphone INJ 2 MG/ML SYR/VIAL ONE (10:46)
[2017-05-24] MEDS: HYDROmorphone INJ 2 MG/ML SYR/VIAL IV PRN ×3 (10:48→20:12)
--- NOTE | 2017-05-24 13:00 | Nephrology Progress Note ---
Nephrology Progress Note Date of Service: May 24, 2017. Subjective screaming w/ ongoing R leg pain even worse than other days > reeval underway including vascular; denies dyspnea, n/v/d/c Objective Date Time Temp Pulse Resp B/P (MAP) Pulse Ox O2 Delivery O2 Flow Rate FiO2 05/24/17 11:15 36.7 66 12 142/80 (100) 94 Room Air 05/24/17 09:45 36.9 67 12 137/78 (97) 05/24/17 08:00 Room Air 05/24/17 07:54 36.7 63 20 158/95 (116) 95 Room Air 05/24/17 00:10 36.9 69 16 150/81 (104) 95 Room Air 05/24/17 00:00 Room Air 05/23/17 20:09 65 122/79 (93) 05/23/17 20:00 Room Air 05/23/17 16:04 Room Air 05/23/17 15:40 36.6 64 16 129/73 (91) 95 Room Air Physical Exam: GENERAL: alert, oriented x3, relatively large man on RA lying back in severe pain when wakened EYES: No scleral icterus. ENT: Moist mucous membranes. NECK: Supple. PULMONARY: Clear to auscultation but very diminished CARDIAC: distant irregular HS in 60s ABDOMEN: Bowel sounds positive, soft, nontender, nondistended. + trujillo EXTREMITIES: +2-3 edema with open wounds. R ankle wrapped NEUROLOGIC: Residual right arm weakness, which is mild. fluent speech DERM: Chronic lower extremity wounds Current Inpatient Medications Medications (Trade) Dose Ordered Sig/Miguel Route Start Time Stop Time Status Last Admin Dose Admin Ondansetron HCl (Zofran Inj) 4 mg Q6H PRN IV 05/16/17 17:30 06/15/17 17:29 Insulin Aspart (novoLOG ASPART) SLIDING SCALE If C... ACHS SC 05/16/17 21:00 06/15/17 20:59 05/24/17 09:40 8 UNITS Glucose (Glucose 40% Gel) 15-30 GRAMS 15 GRAMS... UD PRN PO 05/16/17 17:30 06/15/17 17:29 Glucose (Glucose Chew Tab) 4-8 Tablets 4 Tabl... UD PRN PO 05/16/17 17:30 06/15/17 17:29 Dextrose (Dextrose 50% 50ML Syringe) 25-50ML OF 50% DW IV FOR... UD PRN IV 05/16/17 17:30 06/15/17 17:29 Glucagon (Glucagon Inj) 1 mg UD PRN SQ 05/16/17 17:30 06/15/17 17:29 Acetaminophen (Tylenol Tab) 500 mg Q4 PRN PO 05/16/17 19:15 06/15/17 19:14 05/22/17 13:42 500 MG Acetaminophen/ Codeine Phosphate (Tylenol w/ Codeine #3 Tab) 1 tab Q6H PRN PO 05/16/17 19:15 06/15/17 19:14 05/24/17 04:07 1 TAB Albuterol (Ventolin Hfa Inhaler) 2 puffs Q6H PRN INH 05/16/17 19:15 06/15/17 19:14 Amoxicillin (Amoxil Cap) 500 mg TID PO 05/16/17 21:00 05/26/17 20:59 05/24/17 08:00 500 MG Atorvastatin Calcium (Lipitor Tab) 80 mg HS PO 05/16/17 21:00 06/15/17 20:59 05/23/17 20:03 80 MG Bisacodyl (Dulcolax Supp) 10 mg Q24H PRN HI 05/16/17 19:15 06/15/17 19:14 Carvedilol (Coreg Tab) 25 mg BID PO 05/16/17 21:00 06/15/17 20:59 05/24/17 08:02 25 MG Ciprofloxacin (Cipro Tab) 500 mg BID PO 05/16/17 21:00 05/26/17 20:59 05/24/17 08:01 500 MG Fentanyl (Duragesic Patch) 12 mcg Q72H TD 05/18/17 09:00 06/01/17 08:59 05/24/17 09:55 12 MCG Hydroxyzine HCl (Vistaril Tab) 25 mg QID PRN PO 05/16/17 19:15 06/15/17 19:14 05/23/17 13:46 25 MG Loratadine (Claritin Tab) 10 mg DAILY PO 05/17/17 09:00 06/16/17 08:59 05/23/17 07:59 10 MG Magnesium Hydroxide (Milk Of Magnesia Susp) 30 ml UD PRN PO 05/16/17 19:15 06/15/17 19:14 Nitroglycerin (Nitrostat Tab) 0.4 mg UD PRN UT 05/16/17 19:15 06/15/17 19:14 Ondansetron HCl (Zofran Tab) 4 mg Q8 PRN PO 05/16/17 19:15 06/15/17 19:14 Pregabalin (Lyrica Cap) 75 mg BID PO 05/16/17 21:00 06/15/17 20:59 05/24/17 08:03 75 MG Senna/Docusate Sodium (Senokot S Tab) 2 tab HS PO 05/16/17 21:00 06/15/17 20:59 05/23/17 20:06 2 TAB Trazodone HCl (Desyrel Tab) 50 mg HS PO 05/16/17 21:00 06/15/17 20:59 05/23/17 20:02 50 MG Ursodiol (Actigall Cap) 300 mg BID PO 05/16/17 21:00 06/15/17 20:59 05/24/17 08:05 300 MG Venlafaxine HCl (effeXOR TAB) 75 mg QAM PO 05/17/17 09:00 06/16/17 08:59 05/24/17 08:02 75 MG Pantoprazole Sodium (Protonix Tab) 40 mg QAM PO 05/17/17 09:00 06/16/17 08:59 05/24/17 08:03 40 MG Miscellaneous (Fentanyl Patch Remove & Waste) 1 ea Q3D N/A 05/18/17 08:59 06/17/17 08:58 05/24/17 09:54 1 EA Miscellaneous Information (Check Fentanyl Patch Placement) 1 ea QS N/A 05/17/17 00:00 06/16/17 00:00 05/24/17 08:00 1 EA Nystatin (Mycostatin Powder) 1 appln DAILY EXT 05/18/17 12:00 06/17/17 11:59 05/24/17 08:00 1 APPLN Miscellaneous Information (Consult Glycemic Management Pharmacy) 1 ea UD N/A 05/19/17 10:12 06/18/17 10:11 Insulin Glargine (Lantus Solostar Pen) Q12 SC 05/19/17 21:00 06/18/17 20:59 Future hold 05/24/17 09:41 8 UNITS Warfarin Sodium (Coumadin Tab) 10 mg DAILY@16 PO 05/19/17 16:00 06/18/17 15:59 Future hold 05/22/17 15:53 10 MG Furosemide 80 mg/ Albumin Human 58 ml @ 54 mls/hr TID IV 05/21/17 14:00 05/24/17 13:59 05/24/17 09:46 54 MLS/HR Senna (Senokot Tab) 8.6 mg QAM PO 05/22/17 08:00 06/21/17 07:59 05/24/17 08:03 8.6 MG Docusate Sodium (coLACE CAP) 100 mg BID PO 05/21/17 20:00 06/20/17 19:59 05/24/17 08:02 100 MG Metolazone (Zaroxolyn Tab) 2.5 mg TID@0730,1330,1930 PO 05/22/17 19:30 06/21/17 19:29 05/24/17 07:59 2.5 MG Tamsulosin HCl (Flomax Cap) 0.4 mg HS PO 05/22/17 21:00 06/21/17 20:59 05/23/17 20:06 0.4 MG Ciprofloxacin (Consult) 1 ea UD PRN N/A 05/23/17 17:15 06/22/17 17:14 Hydromorphone HCl (Dilaudid Inj) 1.5 mg Q2H PRN IV 05/24/17 10:30 06/06/17 23:29 05/24/17 10:48 1.5 MG Last 24 Hours Test 05/23/17 17:03 05/23/17 19:57 05/24/17 06:35 05/24/17 07:43 Bedside Glucose 119 mg/dl 144 mg/dl 136 mg/dl White Blood Count 9.13 K/uL Red Blood Count 3.28 M/uL Hemoglobin 8.2 g/dL Hematocrit 26.4 % Mean Corpuscular Volume 80.5 fL Mean Corpuscular Hemoglobin 25.0 pg Mean Corpuscular Hemoglobin Concent 31.1 g/dl Platelet Count 183 K/uL Mean Platelet Volume 10.2 fL Neutrophils (%) (Auto) 77.2 % Lymphocytes (%) (Auto) 9.7 % Monocytes (%) (Auto) 8.9 % Eosinophils (%) (Auto) 3.5 % Basophils (%) (Auto) 0.5 % Neutrophils # (Auto) 7.04 K/uL Lymphocytes # (Auto) 0.89 K/uL Monocytes # (Auto) 0.81 K/uL Eosinophils # (Auto) 0.32 K/uL Basophils # (Auto) 0.05 K/uL RDW Standard Deviation 53.6 fL RDW Coefficient of Variation 18.2 % Immature Granulocyte % (Auto) 0.2 % Immature Granulocyte # (Auto) 0.02 K/uL Hypochromasia PRESENT Basophilic Stippling 1+ Anisocytosis PRESENT Prothrombin Time 77.3 SECONDS Prothromb Time International Ratio 6.7 Sodium Level 139 mmol/L Potassium Level 3.8 mmol/L Chloride Level 105 mmol/L Carbon Dioxide Level 27 mmol/L Anion Gap 7.0 mmol/L Blood Urea Nitrogen 84 mg/dl Creatinine 3.30 mg/dl Est Creatinine Clear Calc Drug Dose 47.1 ml/min Estimated GFR () 22.8 Estimated GFR (Non- 19.6 BUN/Creatinine Ratio 25.4 Random Glucose 132 mg/dl Calcium Level 8.7 mg/dl Magnesium Level 2.3 mg/dl Test 05/24/17 11:39 Bedside Glucose 131 mg/dl Assessment & Plan 56 y/o M w/ CKD 4 from dm/htn baseline creatinine mid 2's, chronic R sided weakness after strokes, permanent a fib, chronic diastolic and R HF, chronic lymphedema, dylan, chronic dvt s/p IVC filter, s/p 2 back surgeries, surgeries for eyelid cancer and childhood hydrocephalus admitted 05/16 worsening lymphedema (per H&P no po lasix given since [facility] d/c 05/01 at outside facility). This is his 3rd admission for volume overload since late March. Volume overload, improving -multifactorial >> lack of diuretics prior to admission w/ dietary indiscretions in setting of longstanding dm, htn, ckd4, chronic hf -cont w/ < 2gm/day Na diet; fluid limit 1.5 L daily for now -markedly negative yesterday, past few days -continue lasix 80 mg IV tid now w/o albumin, to which he has responded in past , cont daily wts, strict I/o BART on chronic kidney disease stage IV in the setting of diabetes and hypertension w/ obligate need for diuresis. BART from obligate diuretics. 4 gm proteinuria on spot ratio w/ bland sediment. -spep/upep unremarkable; doubt proteinuria new or from causes other than dm/htn/ obesity -cannot rule out need for dialysis this admission or in future; this was not d/ w pt so far however -if creat continues to worsen, may need to reduce lasix dosing/frequency but for now wound healing/ lessening edema remains priority -daily bmp Anemia. likely anemia of chronic kidney disease and also could be dilutional secondary to the significant volume overload. low iron stores and will give iv venofer appreciate consult; will follow with you. care coordinated w/ dr Jorge.
--- NOTE | 2017-05-24 14:18 | Surgery Consultation ---
Consultation Date of Service May 24, 2017. Chief Complaint DVT, leg pain History of Present Illness The patient is a 56 year old male with multiple medical problems, including hx of DVT and IVC filter insertion in remote past, seen in consultation today for severe BLE pain. Pt currently difficult to remain awake d/t recently being medicated for pain, and unable to offer any hx presently. Vascular service has been consulted on this pt in past. 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 Pt appears to be sleeping, then awakes and cries out in pain. Awakens to voice, but then falls back to sleep. Per records, pt admitted with cellulitis multiple times over past 2 months. Pain has been difficult to control. Per RN, pain management consultation was also placed today d/t requiring significant narcotic pain medication. Vitals Vital Signs Past 12 Hours Date Time Temp Pulse Resp B/P (MAP) Pulse Ox O2 Delivery O2 Flow Rate FiO2 05/24/17 11:15 36.7 66 12 142/80 (100) 94 Room Air 05/24/17 09:45 36.9 67 12 137/78 (97) 05/24/17 08:00 Room Air 05/24/17 07:54 36.7 63 20 158/95 (116) 95 Room Air Allergies Coded Allergies: Cephalosporins (Verified Allergy, Unknown, increased HR vs sick to stomach , pt unsure abx allergy to?, 05/05/17) Clindamycin (Verified Allergy, Unknown, increased HR vs sick to stomach, pt unsure abx allergy to?, 05/05/17) Iodinated Diagnostic Agents (Verified Allergy, Unknown, unknown, 04/04/17) Penicillins (Unverified Allergy, Unknown, increased HR vs sick to stomach , pt unsure abx allergy to?, 05/05/17) Perflutren (Verified Allergy, Unknown, PERFLUTREN LIPID MICROSPHERES, 04/04) Home Medications Scheduled Amoxicillin (Amoxil), 500 MG PO TID Apixaban (Eliquis), 5 MG PO BID Atorvastatin (Lipitor), 80 MG PO HS Carvedilol (Coreg), 25 MG PO BID Ciprofloxacin Hcl (Cipro), 500 MG PO BID Esomeprazole Magnesium (Nexium), 40 MG PO DAILY Fentanyl (Fentanyl), 12 MCG TOP [id number] Insulin Aspart (Novolog), 15 UNITS SQ TIDM Insulin Detemir (Levemir), 35 UNITS SQ BID Loratadine (Claritin), 10 MG PO DAILY Melatonin (Melatonin), 10 MG PO HS Multiple Vitamins W/ Minerals (Theragran-M), 1 TAB PO QAM Polyethylene Glycol 3350 (Miralax), 17 GM PO DAILY Pregabalin (Lyrica), 75 MG PO BID Sennosides-Docusate Sodium (Sennalax-S), 2 TABS PO HS Trazodone Hcl (Trazodone), 50 MG PO HS Ursodiol (Ursodiol), 300 MG PO BID Venlafaxine Hcl (Effexor), 75 MG PO QAM Scheduled PRN Acetaminophen (Tylenol), 500 MG PO Q4 PRN for Pain or Fever Acetaminophen (Tylenol), 650 MG SC Q6H PRN for Pain Acetaminophen/Codeine (Tylenol W/Codeine #3), 1 TAB PO Q6H PRN for Pain Albuterol Hfa (Ventolin Hfa), 2 PUFFS INH Q6H PRN for Wheezing Bisacodyl (Dulcolax), 1 SUPP SC Q24H PRN for no bm past 2 days Dextrose (Diabetic Use) (Insta-Glucose), 1 APPLN PO UD PRN for HYPOGLYCEMIA PROTOCOL Hydroxyzine Hcl (Atarax), 25 MG PO QID PRN for Itching Magnesium Hydroxide (Milk Of Magnesia), 30 ML PO UD PRN for Constipation Nitroglycerin (Nitrostat), 0.4 MG UT UD PRN for Chest Pain Ondansetron Hcl (Zofran), 4-8 MG PO Q8 PRN for Nausea Miscellaneous Medications Glucagon (Glucagon Emergency Kit) Problem List Medical Problems: (1) CAD (coronary artery disease) (2) Chronic a-fib (3) Chronic CHF (4) Chronic pain (5) CKD (chronic kidney disease), stage IV (6) Depression (7) Diabetes mellitus, type II (8) Dyslipidemia (9) H/o sacral fracture (10) Heart attack (11) History of pulmonary embolus (PE) (12) History of stroke (13) HTN (hypertension) (14) Idiopathic cardiomyopathy (15) Ischemic cardiomyopathy (16) Lymphedema (17) Obesity, morbid, BMI 40.0-49.9 (18) Obstructive hydrocephalus (19) Pulmonary embolism (20) Right leg DVT (21) Sleep apnea (22) Venous insufficiency Surgical Problems: (1) H/O eye surgery (2) History of brain shunt (3) History of cholecystectomy (4) S/p pacemaker defibrillator (5) S/P spinal surgery (6) S/p vein filter Surgical / Medical History Hx Cardiac Surgery: Yes (AICD, IVC filters) Hx Abdominal Surgery: Yes (kierra) Hx Cancer Surgery: Yes (R eyelid) Hx Thoracic Surgery: No Hx Orthopedic: Yes (spine surgery x2, hydrocephalus as , R ankle surg) Hx Urinary Tract Surgery: No Past Medical/Surgical History: CHF, Diabetes, Heart Disease, High Cholesterol, Hypertension Family History FH: CAD (coronary artery disease) FATHER ( of [place] late 60's) Social History Smoking Status: Never Smoker Hx Tobacco Use In Past Year?: No Hx Alcohol Use - Type & Amnt: No Hx Substance Use -Type & Amnt: No Review of Systems Additional Comments: Pt unable to stay awake to answer questions. Physical Exam Constitutional: General Apperance: well-nourished, well-developed, obese Level of Distress: NAD (sleeping), chronically ill Psychiatric: Mental Status: lethargic Head: normocephalic, atraumatic Eyes: EOM: EOMI ENMT: normal ENT inspection, hearing grossly normal Neck: supple, trachea midline Lungs: Respiratory effort: no dyspnea Auscultation: no wheezing, no rales/crackles, no rhonchi Cardiovascular: Apical Impulse: not displaced Heart Auscultation: no rubs, no gallops, pertinent finding (irregular) Peripheral Pulses: Pulses: full and equal, in all extremities except if noted Bruits: none appreciated Carotid Pulse: normal on the left, normal on the right Brachial Pulses: normal on the left, normal on the right Radial Pulse: normal on the left, normal on the right Femoral Pulse: normal on the left, normal on the right Posterior Tibialis Pulse: decreased on the right, pertinent finding (LLE foot wrapped in dressing) Dorsalis Pedis Pulse: decreased on the right, pertinent finding (LLE foot wrapped in dressing) Abdomen: Bowel Sounds: normal Inspection & Palpation: soft, non-distended Musculoskeletal: normal strength (5/5 throughout), normal tone Extremities: Upper Right: no cyanosis, no edema, no varicosities, no palpable cord Upper Left: no cyanosis, no edema, no varicosities Lower Right: no cyanosis, no varicosities, edema Lower Left: no cyanosis, no varicosities, edema (+4 pitting from thigh to toes), pertinent finding (toes with blood blisters noted to tips, appear dry, without erythema) Assessment and Plan ASSESSMENT and PLAN: BLE pain Hx DVT BLE Hx IVC filter insertion IVC and iliac v occlusion- chronic Pt not candidate for vascular surgery intervention, as all venous concerns are chronic. Feet appear well perfused and pt is nonambulatory. No indications for vascular surgery intervention at this time. Please call if needed.
[2017-05-24] MEDS: FUROSEMIDE INJ 80 MG in SYRINGE 0 ML IV SCH ×2 (14:34→20:18)
[2017-05-24] MEDS: IRON SUCROSE INJ 300 MG in SODIUM CHLORIDE 0.9% 250ML 250 ML IV SCH (14:35)
[2017-05-24] MEDS ORDERED: IRON SUCROSE INJ 300 MG in SODIUM CHLORIDE 0.9% 100ML 100 ML IV SCH (15:00)
[2017-05-24] MEDS: WARFARIN SOD 5 MG TAB PO SCH (15:00)
--- NOTE | 2017-05-24 18:04 | Progress Note ---
Internal Med Progress Note Date of Service: May 24, 2017. Provider Documentation: SUBJECTIVE: was screaming with pain of his right lower extremity has chronic pain but got worse today required high doses of iv Dilaudid currently somewhat drowsy bu arousable and says pain is ok now afebrile ate lunch no sob OBJECTIVE: Vital Signs-as noted below Exam: General-alert and awake. Not in distress. Obese ENT-normal hearing Neck-no neck masses Lungs-cta b/l no wheezing or crackles Heart-s1 and s2 heard regular rate and rhythm no murmurs Abdomen-soft bowel sounds present non tender no distension Extremities-lower extremities in dressing. b/l lower extremity edema present . Right lower ext pedal pulse present on doppler Neuro-alert and awake moves extremities Lab data as noted below. 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 BLE cellulitis HAd recent infection with Pseudomonas, Alcaligenes, and Enterococcus.Id recommends cipro and amoxicillin for 7-14 days course. History of Right lower extremity DVT/PE: history of IVC filter eiliquis has been changed to Coumadin secondary to worsening renal function iv heparin was stopped yesterday. inr is 6.7 today. Coumadin on hold. Bilateral lower extremity swelling and pain Multifactorial with h/o lymphedema, CHF, CKD, dietary non-compliance, missing diuretic at care home As per " DVT studies negative on 05/16/17 for more involvement of right leg DVT, could not tolerate repeat scan ordered on 05/19/17 due to scrotal discomfort" scrotal sling ordered, pain control with Lyrica,Fentanyl, dilaudid prn IV Lasix as per nephrology today pain got worse. pedal pulse heard on bed side doppler seen by vascular and no intervention recommenced await pain management to help with pain. currently requiring iv Dilaudid Arf ? on CKD Stage IV Management as per nephro f/u labs. Urinary retention has trujillo urology on board and appreciate inputs Acute on chronic systolic/diastolic HF: on iv Lasix will monitor Chronic A Fib: on coreg coumadin held for inr 6.7 HTN: stable on home meds Hypothyroidism: on levothyroxine DM II: on lantus and niss appreciate pharmacy inputs DVT Ppx:inr 6.7 FULL CODE Dispo: To be determined SW consulted to help with discharge placement back to [facility] when medically improved . Vital Signs: Date Time Temp Pulse Resp B/P (MAP) Pulse Ox O2 Delivery O2 Flow Rate FiO2 05/24/17 16:06 37.1 64 18 158/75 (102) 93 Room Air 05/24/17 11:15 36.7 66 12 142/80 (100) 94 Room Air 05/24/17 09:45 36.9 67 12 137/78 (97) 05/24/17 08:00 Room Air 05/24/17 07:54 36.7 63 20 158/95 (116) 95 Room Air 05/24/17 00:10 36.9 69 16 150/81 (104) 95 Room Air 05/24/17 00:00 Room Air 05/23/17 20:09 65 122/79 (93) 05/23/17 20:00 Room Air Lab Results: Results Past 24 Hours Test 05/23/17 19:57 05/24/17 06:35 05/24/17 07:43 05/24/17 11:39 Range/Units Bedside Glucose 144 136 131 70-99 mg/dl White Blood Count 9.13 4.8-10.8 K/uL Red Blood Count 3.28 4.7-6.1 M/uL Hemoglobin 8.2 14.0-18.0 g/dL Hematocrit 26.4 42-52 % Mean Corpuscular Volume 80.5 80-100 fL Mean Corpuscular Hemoglobin 25.0 25-34 pg Mean Corpuscular Hemoglobin Concent 31.1 32-36 g/dl Platelet Count 183 130-400 K/uL Mean Platelet Volume 10.2 7.4-10.4 fL Neutrophils (%) (Auto) 77.2 % Lymphocytes (%) (Auto) 9.7 % Monocytes (%) (Auto) 8.9 % Eosinophils (%) (Auto) 3.5 % Basophils (%) (Auto) 0.5 % Neutrophils # (Auto) 7.04 1.4-6.5 K/uL Lymphocytes # (Auto) 0.89 1.2-3.4 K/uL Monocytes # (Auto) 0.81 0.11-0.59 K/uL Eosinophils # (Auto) 0.32 0-0.5 K/uL Basophils # (Auto) 0.05 0-0.2 K/uL RDW Standard Deviation 53.6 36.4-46.3 fL RDW Coefficient of Variation 18.2 11.5-14.5 % Immature Granulocyte % (Auto) 0.2 % Immature Granulocyte # (Auto) 0.02 0.00-0.02 K/uL Hypochromasia PRESENT Basophilic Stippling 1+ Anisocytosis PRESENT Prothrombin Time 77.3 9.0-12.0 SECONDS Prothromb Time International Ratio 6.7 0.9-1.1 Sodium Level 139 136-145 mmol/L Potassium Level 3.8 3.5-5.1 mmol/L Chloride Level 105 98-107 mmol/L Carbon Dioxide Level 27 21-32 mmol/L Anion Gap 7.0 3-11 mmol/L Blood Urea Nitrogen 84 7-18 mg/dl Creatinine 3.30 0.60-1.40 mg/dl Est Creatinine Clear Calc Drug Dose 47.1 ml/min Estimated GFR () 22.8 Estimated GFR (Non- 19.6 BUN/Creatinine Ratio 25.4 10-20 Random Glucose 132 70-99 mg/dl Calcium Level 8.7 8.5-10.1 mg/dl Magnesium Level 2.3 1.8-2.4 mg/dl Test 05/24/17 16:29 Range/Units Bedside Glucose 145 70-99 mg/dl
[2017-05-24] MEDS: TAMSULOSIN HCL 0.4 MG CAP PO SCH (19:47)
[2017-05-24] MEDS: TRAZODONE HCL 50 MG TAB PO SCH (19:47)
[2017-05-24] MEDS: DOCUSATE SODIUM/SENNA 50/8.6MG TAB PO SCH (19:48)
[2017-05-24] MEDS: ATORVASTATIN 40 MG TAB PO SCH (19:48)
--- NOTE | 2017-05-24 20:09 | Infectious Disease Progress Nt ---
Progress Note Date of Service May 24, 2017. Subjective Pt evaluation today including: conversation w/ patient, physical exam, chart review, lab review, review of studies, conversation w/ professional services consultant, review of inpatient medication list No new complaints today. Pain in legs about the same. Remains afebrile. Continues tolerating antibiotics. All Other Systems: Reviewed and Negative Medications Current Inpatient Medications Medications (Trade) Dose Ordered Sig/Miguel Route Start Time Stop Time Status Last Admin Dose Admin Ondansetron HCl (Zofran Inj) 4 mg Q6H PRN IV 05/16/17 17:30 06/15/17 17:29 Insulin Aspart (novoLOG ASPART) SLIDING SCALE If C... ACHS SC 05/16/17 21:00 06/15/17 20:59 05/24/17 12:53 5 UNITS Glucose (Glucose 40% Gel) 15-30 GRAMS 15 GRAMS... UD PRN PO 05/16/17 17:30 06/15/17 17:29 Glucose (Glucose Chew Tab) 4-8 Tablets 4 Tabl... UD PRN PO 05/16/17 17:30 06/15/17 17:29 Dextrose (Dextrose 50% 50ML Syringe) 25-50ML OF 50% DW IV FOR... UD PRN IV 05/16/17 17:30 06/15/17 17:29 Glucagon (Glucagon Inj) 1 mg UD PRN SQ 05/16/17 17:30 06/15/17 17:29 Acetaminophen (Tylenol Tab) 500 mg Q4 PRN PO 05/16/17 19:15 06/15/17 19:14 05/22/17 13:42 500 MG Acetaminophen/ Codeine Phosphate (Tylenol w/ Codeine #3 Tab) 1 tab Q6H PRN PO 05/16/17 19:15 06/15/17 19:14 05/24/17 04:07 1 TAB Albuterol (Ventolin Hfa Inhaler) 2 puffs Q6H PRN INH 05/16/17 19:15 06/15/17 19:14 Amoxicillin (Amoxil Cap) 500 mg TID PO 05/16/17 21:00 05/26/17 20:59 05/24/17 19:44 500 MG Atorvastatin Calcium (Lipitor Tab) 80 mg HS PO 05/16/17 21:00 06/15/17 20:59 05/24/17 19:48 80 MG Bisacodyl (Dulcolax Supp) 10 mg Q24H PRN [place] 05/16/17 19:15 06/15/17 19:14 Carvedilol (Coreg Tab) 25 mg BID PO 05/16/17 21:00 06/15/17 20:59 05/24/17 19:46 25 MG Ciprofloxacin (Cipro Tab) 500 mg BID PO 05/16/17 21:00 05/26/17 20:59 05/24/17 19:45 500 MG Fentanyl (Duragesic Patch) 12 mcg Q72H TD 05/18/17 09:00 06/01/17 08:59 05/24/17 09:55 12 MCG Hydroxyzine HCl (Vistaril Tab) 25 mg QID PRN PO 05/16/17 19:15 06/15/17 19:14 05/23/17 13:46 25 MG Loratadine (Claritin Tab) 10 mg DAILY PO 05/17/17 09:00 06/16/17 08:59 05/23/17 07:59 10 MG Magnesium Hydroxide (Milk Of Magnesia Susp) 30 ml UD PRN PO 05/16/17 19:15 06/15/17 19:14 Nitroglycerin (Nitrostat Tab) 0.4 mg UD PRN [place] 05/16/17 19:15 06/15/17 19:14 Ondansetron HCl (Zofran Tab) 4 mg Q8 PRN PO 05/16/17 19:15 06/15/17 19:14 Pregabalin (Lyrica Cap) 75 mg BID PO 05/16/17 21:00 06/15/17 20:59 05/24/17 08:03 75 MG Senna/Docusate Sodium (Senokot S Tab) 2 tab HS PO 05/16/17 21:00 06/15/17 20:59 05/24/17 19:48 2 TAB Trazodone HCl (Desyrel Tab) 50 mg HS PO 05/16/17 21:00 06/15/17 20:59 05/24/17 19:47 50 MG Ursodiol (Actigall Cap) 300 mg BID PO 05/16/17 21:00 06/15/17 20:59 05/24/17 19:44 300 MG Venlafaxine HCl (effeXOR TAB) 75 mg QAM PO 05/17/17 09:00 06/16/17 08:59 05/24/17 08:02 75 MG Pantoprazole Sodium (Protonix Tab) 40 mg QAM PO 05/17/17 09:00 06/16/17 08:59 05/24/17 08:03 40 MG Miscellaneous (Fentanyl Patch Remove & Waste) 1 ea Q3D N/A 05/18/17 08:59 06/17/17 08:58 05/24/17 09:54 1 EA Miscellaneous Information (Check Fentanyl Patch Placement) 1 ea QS N/A 05/17/17 00:00 06/16/17 00:00 05/24/17 16:10 1 EA Nystatin (Mycostatin Powder) 1 appln DAILY EXT 05/18/17 12:00 06/17/17 11:59 05/24/17 08:00 1 APPLN Miscellaneous Information (Consult Glycemic Management Pharmacy) 1 ea UD N/A 05/19/17 10:12 06/18/17 10:11 Insulin Glargine (Lantus Solostar Pen) Q12 SC 05/19/17 21:00 06/18/17 20:59 Future hold 05/24/17 09:41 8 UNITS Warfarin Sodium (Coumadin Tab) 10 mg DAILY@16 PO 05/19/17 16:00 06/18/17 15:59 Future hold 05/22/17 15:53 10 MG Senna (Senokot Tab) 8.6 mg QAM PO 05/22/17 08:00 06/21/17 07:59 05/24/17 08:03 8.6 MG Docusate Sodium (coLACE CAP) 100 mg BID PO 05/21/17 20:00 06/20/17 19:59 05/24/17 19:46 100 MG Metolazone (Zaroxolyn Tab) 2.5 mg TID@0730,1330,1930 PO 05/22/17 19:30 06/21/17 19:29 05/24/17 19:43 2.5 MG Tamsulosin HCl (Flomax Cap) 0.4 mg HS PO 05/22/17 21:00 06/21/17 20:59 05/24/17 19:47 0.4 MG Ciprofloxacin (Consult) 1 ea UD PRN N/A 05/23/17 17:15 06/22/17 17:14 Hydromorphone HCl (Dilaudid Inj) 1.5 mg Q2H PRN IV 05/24/17 10:30 06/06/17 23:29 05/24/17 12:54 1.5 MG Furosemide 80 mg/ Syringe 8 ml @ 4 mls/min TID IV 05/24/17 14:00 06/23/17 13:59 05/24/17 14:34 4 MLS/MIN Iron Sucrose 300 mg/Sodium Chloride 265 ml @ 177 mls/hr DAILY IV 05/24/17 15:00 05/27/17 07:00 05/24/17 14:35 177 MLS/HR Objective Vital Signs Date Time Temp Pulse Resp B/P (MAP) Pulse Ox O2 Delivery O2 Flow Rate FiO2 05/24/17 19:42 62 162/88 (112) 05/24/17 16:06 37.1 64 18 158/75 (102) 93 Room Air 05/24/17 11:15 36.7 66 12 142/80 (100) 94 Room Air 05/24/17 09:45 36.9 67 12 137/78 (97) 05/24/17 08:00 Room Air 05/24/17 07:54 36.7 63 20 158/95 (116) 95 Room Air 05/24/17 00:10 36.9 69 16 150/81 (104) 95 Room Air 05/24/17 00:00 Room Air 05/23/17 20:09 65 122/79 (93) Physical Exam General Appearance: WD/WN, no apparent distress, + obese Eyes: normal inspection, EOMI, sclerae normal ENT: normal ENT inspection, pharynx normal Neck: supple, no adenopathy, trachea midline Respiratory/Chest: chest non-tender, lungs clear, normal breath sounds, no respiratory distress Cardiovascular: no gallop, no murmur, + irregularly irregular Abdomen: normal bowel sounds, non tender, soft, no organomegaly Extremities: + inflammation, + swelling Neurologic/Psychiatric: alert, oriented x 3 Skin: normal color, no rash, + pertinent finding ( Leg ulcerations slightly better) Lymphatic: no adenopathy Laboratory Results Last 24 Hours Test 05/24/17 06:35 05/24/17 07:43 05/24/17 11:39 05/24/17 16:29 White Blood Count 9.13 K/uL Red Blood Count 3.28 M/uL Hemoglobin 8.2 g/dL Hematocrit 26.4 % Mean Corpuscular Volume 80.5 fL Mean Corpuscular Hemoglobin 25.0 pg Mean Corpuscular Hemoglobin Concent 31.1 g/dl Platelet Count 183 K/uL Mean Platelet Volume 10.2 fL Neutrophils (%) (Auto) 77.2 % Lymphocytes (%) (Auto) 9.7 % Monocytes (%) (Auto) 8.9 % Eosinophils (%) (Auto) 3.5 % Basophils (%) (Auto) 0.5 % Neutrophils # (Auto) 7.04 K/uL Lymphocytes # (Auto) 0.89 K/uL Monocytes # (Auto) 0.81 K/uL Eosinophils # (Auto) 0.32 K/uL Basophils # (Auto) 0.05 K/uL RDW Standard Deviation 53.6 fL RDW Coefficient of Variation 18.2 % Immature Granulocyte % (Auto) 0.2 % Immature Granulocyte # (Auto) 0.02 K/uL Hypochromasia PRESENT Basophilic Stippling 1+ Anisocytosis PRESENT Prothrombin Time 77.3 SECONDS Prothromb Time International Ratio 6.7 Sodium Level 139 mmol/L Potassium Level 3.8 mmol/L Chloride Level 105 mmol/L Carbon Dioxide Level 27 mmol/L Anion Gap 7.0 mmol/L Blood Urea Nitrogen 84 mg/dl Creatinine 3.30 mg/dl Est Creatinine Clear Calc Drug Dose 47.1 ml/min Estimated GFR () 22.8 Estimated GFR (Non- 19.6 BUN/Creatinine Ratio 25.4 Random Glucose 132 mg/dl Calcium Level 8.7 mg/dl Magnesium Level 2.3 mg/dl Bedside Glucose 136 mg/dl 131 mg/dl 145 mg/dl Assessment and Plan 56-year-old male with lower extremity severe edema with leg ulcerations with recent infection with Pseudomonas, Alcaligenes, and Enterococcus. patient be continued on oral antibiotics, likely 2-3 more weeks. Will follow.
[2017-05-25 00:18] VITALS: BP 140/73; PULSE 64; TEMP 36.7; O2SAT 93
[2017-05-25] MEDS: CHECK FENTANYL PATCH PLACEMENT SCH ×3 (00:22→15:47)
[2017-05-25] MEDS: HYDROmorphone INJ 2 MG/ML SYR/VIAL IV PRN ×7 (00:30→18:50)
[2017-05-25 06:23] LABS: BASO % 0.3 %; BASO ABS # 0.04 K/uL (0-0.2); EOS % 2.1 %; HEMATOCRIT 26.4 % (42-52); IG% 0.3 %; LYMPH % 8.3 %; LYMPH ABS # 0.97 K/uL (1.2-3.4); MEAN CELL VOLUME 80.7 fL (80-100); MEAN CORPUSCULAR HEMOGLOBIN 25.1 pg (25-34); MEAN CORPUSCULAR HGB CONC 31.1 g/dl (32-36); MONO % 9.5 %; NEUT % 79.5 %; PLATELET COUNT 192 K/uL (130-400); RED BLOOD COUNT 3.27 M/uL (4.7-6.1); WHITE BLOOD COUNT 11.63 K/uL (4.8-10.8)
[2017-05-25 06:39] LABS: BUN/CREATININE RATIO 25.4 (10-20); CALCIUM 8.4 mg/dl (8.5-10.1); CREATININE 3.4 mg/dl (0.60-1.40); MAGNESIUM 2.2 mg/dl (1.8-2.4); POTASSIUM 3.7 mmol/L (3.5-5.1)
[2017-05-25 06:45] LABS: ANISOCYTOSIS PRESENT; COMPLETE YES; HYPOCHROMIA PRESENT
--- NOTE | 2017-05-25 07:10 | Nephrology Progress Note ---
Nephrology Progress Note Date of Service: May 25, 2017. Subjective 56 yo male with chronic lymphedema/recurrent cellulitis with underlying ckd stage 4 who is tolerating the aggressive diuresis. legs are much improved. wounds healing up well. pt complaining of bilateral lower extremity pain right> left. Objective Date Time Temp Pulse Resp B/P (MAP) Pulse Ox O2 Delivery O2 Flow Rate FiO2 05/25/17 00:18 36.7 64 20 140/73 (95) 93 Room Air 05/25/17 00:00 Room Air 05/24/17 21:00 93 Room Air 05/24/17 20:15 158/76 (103) 05/24/17 19:42 62 162/88 (112) 05/24/17 16:06 37.1 64 18 158/75 (102) 93 Room Air 05/24/17 11:15 36.7 66 12 142/80 (100) 94 Room Air 05/24/17 09:45 36.9 67 12 137/78 (97) 05/24/17 08:00 Room Air 05/24/17 07:54 36.7 63 20 158/95 (116) 95 Room Air Physical Exam: General-aaox3 Eyes-no scleral icterus ENT-mmm Neck-supple Lungs-cta Heart-rrr Abdomen-bs+ s/nt/nd Extremities-left leg wrapped, wrinkles in the skin Neuro-nonfocal Current Inpatient Medications Medications (Trade) Dose Ordered Sig/Miguel Route Start Time Stop Time Status Last Admin Dose Admin Ondansetron HCl (Zofran Inj) 4 mg Q6H PRN IV 05/16/17 17:30 06/15/17 17:29 Insulin Aspart (novoLOG ASPART) SLIDING SCALE If C... ACHS SC 05/16/17 21:00 06/15/17 20:59 05/24/17 20:16 2 UNITS Glucose (Glucose 40% Gel) 15-30 GRAMS 15 GRAMS... UD PRN PO 05/16/17 17:30 06/15/17 17:29 Glucose (Glucose Chew Tab) 4-8 Tablets 4 Tabl... UD PRN PO 05/16/17 17:30 06/15/17 17:29 Dextrose (Dextrose 50% 50ML Syringe) 25-50ML OF 50% DW IV FOR... UD PRN IV 05/16/17 17:30 06/15/17 17:29 Glucagon (Glucagon Inj) 1 mg UD PRN SQ 05/16/17 17:30 06/15/17 17:29 Acetaminophen (Tylenol Tab) 500 mg Q4 PRN PO 05/16/17 19:15 06/15/17 19:14 05/22/17 13:42 500 MG Acetaminophen/ Codeine Phosphate (Tylenol w/ Codeine #3 Tab) 1 tab Q6H PRN PO 05/16/17 19:15 06/15/17 19:14 05/24/17 04:07 1 TAB Albuterol (Ventolin Hfa Inhaler) 2 puffs Q6H PRN INH 05/16/17 19:15 06/15/17 19:14 Amoxicillin (Amoxil Cap) 500 mg TID PO 05/16/17 21:00 05/26/17 20:59 05/24/17 19:44 500 MG Atorvastatin Calcium (Lipitor Tab) 80 mg HS PO 05/16/17 21:00 06/15/17 20:59 05/24/17 19:48 80 MG Bisacodyl (Dulcolax Supp) 10 mg Q24H PRN [place] 05/16/17 19:15 06/15/17 19:14 Carvedilol (Coreg Tab) 25 mg BID PO 05/16/17 21:00 06/15/17 20:59 05/24/17 19:46 25 MG Ciprofloxacin (Cipro Tab) 500 mg BID PO 05/16/17 21:00 05/26/17 20:59 05/24/17 19:45 500 MG Fentanyl (Duragesic Patch) 12 mcg Q72H TD 05/18/17 09:00 06/01/17 08:59 05/24/17 09:55 12 MCG Hydroxyzine HCl (Vistaril Tab) 25 mg QID PRN PO 05/16/17 19:15 06/15/17 19:14 05/23/17 13:46 25 MG Loratadine (Claritin Tab) 10 mg DAILY PO 05/17/17 09:00 06/16/17 08:59 05/23/17 07:59 10 MG Magnesium Hydroxide (Milk Of Magnesia Susp) 30 ml UD PRN PO 05/16/17 19:15 06/15/17 19:14 Nitroglycerin (Nitrostat Tab) 0.4 mg UD PRN [place] 05/16/17 19:15 06/15/17 19:14 Ondansetron HCl (Zofran Tab) 4 mg Q8 PRN PO 05/16/17 19:15 06/15/17 19:14 Pregabalin (Lyrica Cap) 75 mg BID PO 05/16/17 21:00 06/15/17 20:59 05/24/17 20:12 75 MG Senna/Docusate Sodium (Senokot S Tab) 2 tab HS PO 05/16/17 21:00 06/15/17 20:59 05/24/17 19:48 2 TAB Trazodone HCl (Desyrel Tab) 50 mg HS PO 05/16/17 21:00 06/15/17 20:59 05/24/17 19:47 50 MG Ursodiol (Actigall Cap) 300 mg BID PO 05/16/17 21:00 06/15/17 20:59 05/24/17 19:44 300 MG Venlafaxine HCl (effeXOR TAB) 75 mg QAM PO 05/17/17 09:00 06/16/17 08:59 05/24/17 08:02 75 MG Pantoprazole Sodium (Protonix Tab) 40 mg QAM PO 05/17/17 09:00 06/16/17 08:59 05/24/17 08:03 40 MG Miscellaneous (Fentanyl Patch Remove & Waste) 1 ea Q3D N/A 05/18/17 08:59 06/17/17 08:58 05/24/17 09:54 1 EA Miscellaneous Information (Check Fentanyl Patch Placement) 1 ea QS N/A 05/17/17 00:00 06/16/17 00:00 05/25/17 00:22 1 EA Nystatin (Mycostatin Powder) 1 appln DAILY EXT 05/18/17 12:00 06/17/17 11:59 05/24/17 08:00 1 APPLN Miscellaneous Information (Consult Glycemic Management Pharmacy) 1 ea UD N/A 05/19/17 10:12 06/18/17 10:11 Insulin Glargine (Lantus Solostar Pen) Q12 SC 05/19/17 21:00 06/18/17 20:59 Future hold 05/24/17 20:17 10 UNITS Warfarin Sodium (Coumadin Tab) 10 mg DAILY@16 PO 05/19/17 16:00 06/18/17 15:59 Future hold 05/22/17 15:53 10 MG Senna (Senokot Tab) 8.6 mg QAM PO 05/22/17 08:00 06/21/17 07:59 05/24/17 08:03 8.6 MG Docusate Sodium (coLACE CAP) 100 mg BID PO 05/21/17 20:00 06/20/17 19:59 05/24/17 19:46 100 MG Metolazone (Zaroxolyn Tab) 2.5 mg TID@0730,1330,1930 PO 05/22/17 19:30 06/21/17 19:29 05/24/17 19:43 2.5 MG Tamsulosin HCl (Flomax Cap) 0.4 mg HS PO 05/22/17 21:00 06/21/17 20:59 05/24/17 19:47 0.4 MG Ciprofloxacin (Consult) 1 ea UD PRN N/A 05/23/17 17:15 06/22/17 17:14 Hydromorphone HCl (Dilaudid Inj) 1.5 mg Q2H PRN IV 05/24/17 10:30 06/06/17 23:29 05/25/17 05:14 1.5 MG Furosemide 80 mg/ Syringe 8 ml @ 4 mls/min TID IV 05/24/17 14:00 06/23/17 13:59 05/24/17 20:18 4 MLS/MIN Iron Sucrose 300 mg/Sodium Chloride 265 ml @ 177 mls/hr DAILY IV 05/24/17 15:00 05/27/17 07:00 05/24/17 14:35 177 MLS/HR Last 24 Hours Test 05/24/17 07:43 05/24/17 11:39 05/24/17 16:29 05/24/17 20:10 Bedside Glucose 136 mg/dl 131 mg/dl 145 mg/dl 196 mg/dl Test 05/25/17 05:50 White Blood Count 11.63 K/uL Red Blood Count 3.27 M/uL Hemoglobin 8.2 g/dL Hematocrit 26.4 % Mean Corpuscular Volume 80.7 fL Mean Corpuscular Hemoglobin 25.1 pg Mean Corpuscular Hemoglobin Concent 31.1 g/dl Platelet Count 192 K/uL Mean Platelet Volume 10.0 fL Neutrophils (%) (Auto) 79.5 % Lymphocytes (%) (Auto) 8.3 % Monocytes (%) (Auto) 9.5 % Eosinophils (%) (Auto) 2.1 % Basophils (%) (Auto) 0.3 % Neutrophils # (Auto) 9.23 K/uL Lymphocytes # (Auto) 0.97 K/uL Monocytes # (Auto) 1.11 K/uL Eosinophils # (Auto) 0.25 K/uL Basophils # (Auto) 0.04 K/uL RDW Standard Deviation 53.6 fL RDW Coefficient of Variation 18.1 % Immature Granulocyte % (Auto) 0.3 % Immature Granulocyte # (Auto) 0.03 K/uL Hypochromasia PRESENT Anisocytosis PRESENT Sodium Level 140 mmol/L Potassium Level 3.7 mmol/L Chloride Level 105 mmol/L Carbon Dioxide Level 27 mmol/L Anion Gap 8.0 mmol/L Blood Urea Nitrogen 86 mg/dl Creatinine 3.40 mg/dl Est Creatinine Clear Calc Drug Dose 45.7 ml/min Estimated GFR () 22.0 Estimated GFR (Non- 18.9 BUN/Creatinine Ratio 25.4 Random Glucose 134 mg/dl Calcium Level 8.4 mg/dl Magnesium Level 2.2 mg/dl Assessment & Plan ckd stage 4-despite aggressive diuresis-creatinine relatively stable. broad range of 2.7 to 3.6. ok with current diuretics of lasix 80 iv tid and metolazone. edema much improved with pronounced wrinkles of the legs from improved edema. Iron deficiency anemia-hg levels are stable, iron levels are low. on venofer to try to help raise his blood counts.
[2017-05-25 07:18] VITALS: BP 132/74; PULSE 64; TEMP 36.8; O2SAT 94
[2017-05-25] MEDS: METOLAZONE 2.5 MG TAB PO SCH ×3 (07:20→20:19)
[2017-05-25] MEDS: LORATADINE 10 MG TAB PO SCH (08:11)
[2017-05-25] MEDS: CIPROFLOXACIN 500 MG TAB PO SCH ×2 (08:11→20:20)
[2017-05-25] MEDS: URSODIOL 300 MG CAP PO SCH ×2 (08:11→20:21)
[2017-05-25] MEDS: AMOXICILLIN 500 MG CAP PO SCH ×3 (08:11→20:21)
[2017-05-25] MEDS: PREGABALIN 75 MG CAP PO SCH ×2 (08:11→20:28)
[2017-05-25] MEDS: PANTOprazole SOD 40 MG TAB PO SCH (08:11)
[2017-05-25] MEDS: FUROSEMIDE INJ 80 MG in SYRINGE 0 ML IV SCH ×3 (08:12→20:20)
[2017-05-25] MEDS: SENNA 8.6 MG TAB PO SCH (08:12)
[2017-05-25] MEDS: NYSTATIN POWDER 15GM BTL EXT SCH (08:12)
[2017-05-25] MEDS: DOCUSATE SODIUM 100 MG CAP PO SCH ×2 (08:12→20:19)
[2017-05-25] MEDS: VENLAFAXINE HCL 50 MG TAB PO SCH (08:12)
[2017-05-25] MEDS: IRON SUCROSE INJ 300 MG in SODIUM CHLORIDE 0.9% 250ML 250 ML IV SCH (08:12)
[2017-05-25 08:39] LABS: PROTHROMBIN TIME (PATIENT) 65.3 SECONDS (9.0-12.0)
[2017-05-25] MEDS: CARVEDILOL 25 MG TAB PO SCH ×2 (08:55→20:22)
[2017-05-25] MEDS: INSULIN ASPART 100 UNITS/ML 3 ML PEN SC SCH ×4 (08:56→20:24)
[2017-05-25] MEDS: INSULIN GLARGINE SOLOSTAR 100 UNITS/ML 3 ML PEN SC SCH ×2 (08:57→20:39)
[2017-05-25 09:00] LABS: INR 5.7 (0.9-1.1)
--- NOTE | 2017-05-25 09:30 | Pharmacy Progress Note ---
Glycemic: Assessment & Plan Date of Service May 25, 2017. Assessment & Plan The patient is currently receiving 33 units of insulin per day. BSGs ranging 134 - 196 mg/dl over the past 24hrs. * Basal insulin: Lantus 8-10 units every 12 hours * Correctional Insulin: Novolog Correction per scale ACHS Goal Range: Low 120 mg/dL - High 150 mg/dL Correction Factor: 30 mg/dL/unit * Prandial insulin: Per carb ratio of 1 unit per 10 grams CHO consumed BSGs continue to improve, no changes needed to inpatient regimen at this time. Pharmacy will continue to monitor patient daily and write orders per [facility] inpatient glycemic control protocol. Thanks. DISCHARGE RECOMMENDATIONS: * Please refer to note from 05/20/17
--- NOTE | 2017-05-25 10:34 | Pain Management Consultation ---
Pain Management Consultation Date of Consultation May 25, 2017. Reason for Consultation Lower extremity pain History Mr. Perez has been seen in consultation for bilateral lower extremity swelling and pain, right greater than left. There is a significant history of chronic DVT and he is chronically on Eliquis. Patient describes a deep aching pain in the legs and the worst area is along the right medial lower leg. Patient does report a mild improvement in the leg swelling since admission but states that the pain is unchanged. He rates his pain an 8/10 currently. At [facility] he is chronically on Lyrica 75mg BID, Fentanyl patch 12mcg/hr, and Tylenol #3 for breakthrough pain which was previously effective but not any longer. He has been using IV Dilaudid for breakthrough pain since admission which has been providing moderate relief. Patient denies any confusion, constipation, nausea, vomiting. Case discussed with Dr. Hernandez Past Medical/Surgical History (1) Obstructive hydrocephalus (2) Diabetes mellitus, type II (3) CKD (chronic kidney disease), stage IV (4) Depression (5) History of stroke (6) CAD (coronary artery disease) (7) Sleep apnea (8) Venous insufficiency (9) History of pulmonary embolus (PE) (10) Right leg DVT (11) Obesity, morbid, BMI 40.0-49.9 (12) Lymphedema (13) HTN (hypertension) (14) Chronic CHF (15) H/o sacral fracture (16) Chronic pain (17) Dyslipidemia (18) Idiopathic cardiomyopathy (19) Chronic a-fib (20) Lower extremity edema (21) Shortness of breath (22) History of cholecystectomy (23) History of brain shunt (24) H/O eye surgery (25) S/p pacemaker defibrillator (26) S/P spinal surgery (27) S/p vein filter Family History FH: CAD (coronary artery disease) FATHER ( of [place] late 60's) Social / Work History Smokeless Tobacco Use: No Alcohol Use: none Drug Use: none Marital Status: Housing Status: assisted living, other Occupation: retired Allergies Coded Allergies: Cephalosporins (Verified Allergy, Unknown, increased HR vs sick to stomach , pt unsure abx allergy to?, 05/05/17) Clindamycin (Verified Allergy, Unknown, increased HR vs sick to stomach, pt unsure abx allergy to?, 05/05/17) Iodinated Diagnostic Agents (Verified Allergy, Unknown, unknown, 04/04/17) Penicillins (Unverified Allergy, Unknown, increased HR vs sick to stomach , pt unsure abx allergy to?, 05/05/17) Perflutren (Verified Allergy, Unknown, PERFLUTREN LIPID MICROSPHERES, 04/04) Medications Current Inpatient Medications Medications (Trade) Dose Ordered Sig/Miguel Route Start Time Stop Time Status Last Admin Dose Admin Ondansetron HCl (Zofran Inj) 4 mg Q6H PRN IV 05/16/17 17:30 06/15/17 17:29 Insulin Aspart (novoLOG ASPART) SLIDING SCALE If C... ACHS SC 05/16/17 21:00 06/15/17 20:59 05/25/17 08:56 6 UNITS Glucose (Glucose 40% Gel) 15-30 GRAMS 15 GRAMS... UD PRN PO 05/16/17 17:30 06/15/17 17:29 Glucose (Glucose Chew Tab) 4-8 Tablets 4 Tabl... UD PRN PO 05/16/17 17:30 06/15/17 17:29 Dextrose (Dextrose 50% 50ML Syringe) 25-50ML OF 50% DW IV FOR... UD PRN IV 05/16/17 17:30 06/15/17 17:29 Glucagon (Glucagon Inj) 1 mg UD PRN SQ 05/16/17 17:30 06/15/17 17:29 Acetaminophen (Tylenol Tab) 500 mg Q4 PRN PO 05/16/17 19:15 06/15/17 19:14 05/22/17 13:42 500 MG Acetaminophen/ Codeine Phosphate (Tylenol w/ Codeine #3 Tab) 1 tab Q6H PRN PO 05/16/17 19:15 06/15/17 19:14 05/24/17 04:07 1 TAB Albuterol (Ventolin Hfa Inhaler) 2 puffs Q6H PRN INH 05/16/17 19:15 06/15/17 19:14 Amoxicillin (Amoxil Cap) 500 mg TID PO 05/16/17 21:00 05/26/17 20:59 05/25/17 08:11 500 MG Atorvastatin Calcium (Lipitor Tab) 80 mg HS PO 05/16/17 21:00 06/15/17 20:59 05/24/17 19:48 80 MG Bisacodyl (Dulcolax Supp) 10 mg Q24H PRN [place] 05/16/17 19:15 06/15/17 19:14 Carvedilol (Coreg Tab) 25 mg BID PO 05/16/17 21:00 06/15/17 20:59 05/25/17 08:55 25 MG Ciprofloxacin (Cipro Tab) 500 mg BID PO 05/16/17 21:00 05/26/17 20:59 05/25/17 08:11 500 MG Fentanyl (Duragesic Patch) 12 mcg Q72H TD 05/18/17 09:00 06/01/17 08:59 05/24/17 09:55 12 MCG Hydroxyzine HCl (Vistaril Tab) 25 mg QID PRN PO 05/16/17 19:15 06/15/17 19:14 05/23/17 13:46 25 MG Loratadine (Claritin Tab) 10 mg DAILY PO 05/17/17 09:00 06/16/17 08:59 05/25/17 08:11 10 MG Magnesium Hydroxide (Milk Of Magnesia Susp) 30 ml UD PRN PO 05/16/17 19:15 06/15/17 19:14 Nitroglycerin (Nitrostat Tab) 0.4 mg UD PRN [place] 05/16/17 19:15 06/15/17 19:14 Ondansetron HCl (Zofran Tab) 4 mg Q8 PRN PO 05/16/17 19:15 06/15/17 19:14 Pregabalin (Lyrica Cap) 75 mg BID PO 05/16/17 21:00 06/15/17 20:59 05/25/17 08:11 75 MG Senna/Docusate Sodium (Senokot S Tab) 2 tab HS PO 05/16/17 21:00 06/15/17 20:59 05/24/17 19:48 2 TAB Trazodone HCl (Desyrel Tab) 50 mg HS PO 05/16/17 21:00 06/15/17 20:59 05/24/17 19:47 50 MG Ursodiol (Actigall Cap) 300 mg BID PO 05/16/17 21:00 06/15/17 20:59 05/25/17 08:11 300 MG Venlafaxine HCl (effeXOR TAB) 75 mg QAM PO 05/17/17 09:00 06/16/17 08:59 05/25/17 08:12 75 MG Pantoprazole Sodium (Protonix Tab) 40 mg QAM PO 05/17/17 09:00 06/16/17 08:59 05/25/17 08:11 40 MG Miscellaneous (Fentanyl Patch Remove & Waste) 1 ea Q3D N/A 05/18/17 08:59 06/17/17 08:58 05/24/17 09:54 1 EA Miscellaneous Information (Check Fentanyl Patch Placement) 1 ea QS N/A 05/17/17 00:00 06/16/17 00:00 05/25/17 08:05 1 EA Nystatin (Mycostatin Powder) 1 appln DAILY EXT 05/18/17 12:00 06/17/17 11:59 05/25/17 08:12 1 APPLN Miscellaneous Information (Consult Glycemic Management Pharmacy) 1 ea UD N/A 05/19/17 10:12 06/18/17 10:11 Insulin Glargine (Lantus Solostar Pen) Q12 SC 05/19/17 21:00 06/18/17 20:59 Future hold 05/25/17 08:57 8 UNITS Warfarin Sodium (Coumadin Tab) 10 mg DAILY@16 PO 05/19/17 16:00 06/18/17 15:59 Future hold 05/22/17 15:53 10 MG Senna (Senokot Tab) 8.6 mg QAM PO 05/22/17 08:00 06/21/17 07:59 05/25/17 08:12 8.6 MG Docusate Sodium (coLACE CAP) 100 mg BID PO 05/21/17 20:00 06/20/17 19:59 05/25/17 08:12 100 MG Metolazone (Zaroxolyn Tab) 2.5 mg TID@0730,1330,1930 PO 05/22/17 19:30 06/21/17 19:29 05/25/17 07:20 2.5 MG Tamsulosin HCl (Flomax Cap) 0.4 mg HS PO 05/22/17 21:00 06/21/17 20:59 05/24/17 19:47 0.4 MG Ciprofloxacin (Consult) 1 ea UD PRN N/A 05/23/17 17:15 06/22/17 17:14 Hydromorphone HCl (Dilaudid Inj) 1.5 mg Q2H PRN IV 05/24/17 10:30 06/06/17 23:29 05/25/17 07:19 1.5 MG Furosemide 80 mg/ Syringe 8 ml @ 4 mls/min TID IV 05/24/17 14:00 06/23/17 13:59 05/25/17 08:12 4 MLS/MIN Iron Sucrose 300 mg/Sodium Chloride 265 ml @ 177 mls/hr DAILY IV 05/24/17 15:00 05/27/17 07:00 05/25/17 08:12 177 MLS/HR Review of Systems Denies any constitutional, cardiac, pulmonary, neurological, GI, , extremity, endocrine, neuro, ENT, dermatological, or musculoskeletal complaints other than stated in HPI Physical Exam Height & Weight: Height 6 feet, 8.00 inches. Weight 193.300 (Kilograms) 426 (Pounds) Last Vital Signs Documentation Date Time Temp Pulse Resp B/P (MAP) Pulse Ox O2 Delivery O2 Flow Rate FiO2 05/25/17 08:00 Room Air 05/25/17 07:18 36.8 64 20 132/74 (93) 94 Exam: GENERAL: Mr. Perez is a 56 y/o white male that is morbidly obese and appears much older than his stated age. Speech and cognition is intact. Mood and affect is appropriate. Does not appear in acute distress. HEAD: Normocephalic; atraumatic. EYES: Pupils are round, equal, and reactive to light; EOM intact. ENT: No external ear discharge or lesions. No rhinorrhea or epistaxis. No mucosal lesions. CHEST: Regular chest respiration and excursion. EXTREMITIES: There is marked edema of the lower extremities. The left lower leg is wrapped with sue wrap. The right leg is diffusely tender. There is mild wrinkling noted. NEURO: CN II-XII grossly intact with no focal deficits noted. AAO x 3. Laboratory Laboratory Results (Last CBC): 05/25/17 05:50 Red Blood Count 3.27 L, Mean Corpuscular Volume 80.7, Mean Corpuscular Hemoglobin 25.1, Mean Corpuscular Hemoglobin Concent 31.1 L, Mean Platelet Volume 10.0, Neutrophils (%) (Auto) 79.5, Lymphocytes (%) (Auto) 8.3, Monocytes (%) (Auto) 9.5, Eosinophils (%) (Auto) 2.1, Basophils (%) (Auto) 0.3, Neutrophils # (Auto) 9.23 H, Lymphocytes # (Auto) 0.97 L, Monocytes # (Auto) 1.11 H, Eosinophils # (Auto) 0.25, Basophils # (Auto) 0.04 Imaging Other Findings RIGHT LOWER EXTREMITY VENOUS DOPPLER HISTORY: severe right lower extremity pain COMPARISON STUDY: Venous Doppler 05/16/2017. FINDINGS: There is again noted nonocclusive thrombus seen within the right common femoral vein and proximal to mid superficial femoral vein. The patient was unable to complete the remaining examination to evaluate the distal superficial femoral vein, popliteal vein, calf vessels. IMPRESSION: No significant change in the nonocclusive thrombus within the right common femoral and superficial femoral veins. The remaining distal venous structures were not visualized as the patient was unable to complete the examination. Electronically signed by: Kike Shelton M.D. 05/24/2017 9:16 AM Assessment 1. Marked edema of the bilateral lower extremities. 2. Pain of the lower extremities, right greater than left. 3. Morbid obesity. 4. Chronic DVT's requiring chronic anticoagulation on Coumadin 5. Stage 4 chronic kidney disease 6. Diabetes Mellitus Recommendations 1. Fentanyl patch was increased to 25mcg/hr for increased pain relief 2. Continue Tylenol #3 for breakthrough pain 3. Dilaudid IV was decreased from 1.5 mg x 2 hrs down to 1 mg x 2 hrs. 4. Would plan to further decrease the Dilaudid IV interval time if the Fentanyl patch increase is effective.
[2017-05-25] MEDS: FENTANYL PATCH REMOVE & WASTE SCH (10:40)
[2017-05-25] MEDS: FENTANYL 25 MCG/HR TDSY TD SCH (10:41)
--- NOTE | 2017-05-25 11:53 | Infectious Disease Progress Nt ---
Progress Note Date of Service May 25, 2017. Subjective Pt evaluation today including: conversation w/ patient, physical exam, chart review, lab review, review of studies, conversation w/ organizational consultant, review of inpatient medication list Continues to complain of leg pain. Pain management consultation noted. Diuresis has improved leg swelling. No fever. All Other Systems: Reviewed and Negative Medications Current Inpatient Medications Medications (Trade) Dose Ordered Sig/Miguel Route Start Time Stop Time Status Last Admin Dose Admin Ondansetron HCl (Zofran Inj) 4 mg Q6H PRN IV 05/16/17 17:30 06/15/17 17:29 Insulin Aspart (novoLOG ASPART) SLIDING SCALE If C... ACHS SC 05/16/17 21:00 06/15/17 20:59 05/25/17 08:56 6 UNITS Glucose (Glucose 40% Gel) 15-30 GRAMS 15 GRAMS... UD PRN PO 05/16/17 17:30 06/15/17 17:29 Glucose (Glucose Chew Tab) 4-8 Tablets 4 Tabl... UD PRN PO 05/16/17 17:30 06/15/17 17:29 Dextrose (Dextrose 50% 50ML Syringe) 25-50ML OF 50% DW IV FOR... UD PRN IV 05/16/17 17:30 06/15/17 17:29 Glucagon (Glucagon Inj) 1 mg UD PRN SQ 05/16/17 17:30 06/15/17 17:29 Acetaminophen (Tylenol Tab) 500 mg Q4 PRN PO 05/16/17 19:15 06/15/17 19:14 05/22/17 13:42 500 MG Acetaminophen/ Codeine Phosphate (Tylenol w/ Codeine #3 Tab) 1 tab Q6H PRN PO 05/16/17 19:15 06/15/17 19:14 05/24/17 04:07 1 TAB Albuterol (Ventolin Hfa Inhaler) 2 puffs Q6H PRN INH 05/16/17 19:15 06/15/17 19:14 Amoxicillin (Amoxil Cap) 500 mg TID PO 05/16/17 21:00 05/26/17 20:59 05/25/17 08:11 500 MG Atorvastatin Calcium (Lipitor Tab) 80 mg HS PO 05/16/17 21:00 06/15/17 20:59 05/24/17 19:48 80 MG Bisacodyl (Dulcolax Supp) 10 mg Q24H PRN NC 05/16/17 19:15 06/15/17 19:14 Carvedilol (Coreg Tab) 25 mg BID PO 05/16/17 21:00 06/15/17 20:59 05/25/17 08:55 25 MG Ciprofloxacin (Cipro Tab) 500 mg BID PO 05/16/17 21:00 05/26/17 20:59 05/25/17 08:11 500 MG Hydroxyzine HCl (Vistaril Tab) 25 mg QID PRN PO 05/16/17 19:15 06/15/17 19:14 05/23/17 13:46 25 MG Loratadine (Claritin Tab) 10 mg DAILY PO 05/17/17 09:00 06/16/17 08:59 05/25/17 08:11 10 MG Magnesium Hydroxide (Milk Of Magnesia Susp) 30 ml UD PRN PO 05/16/17 19:15 06/15/17 19:14 Nitroglycerin (Nitrostat Tab) 0.4 mg UD PRN UT 05/16/17 19:15 06/15/17 19:14 Ondansetron HCl (Zofran Tab) 4 mg Q8 PRN PO 05/16/17 19:15 06/15/17 19:14 Pregabalin (Lyrica Cap) 75 mg BID PO 05/16/17 21:00 06/15/17 20:59 05/25/17 08:11 75 MG Senna/Docusate Sodium (Senokot S Tab) 2 tab HS PO 05/16/17 21:00 06/15/17 20:59 05/24/17 19:48 2 TAB Trazodone HCl (Desyrel Tab) 50 mg HS PO 05/16/17 21:00 06/15/17 20:59 05/24/17 19:47 50 MG Ursodiol (Actigall Cap) 300 mg BID PO 05/16/17 21:00 06/15/17 20:59 05/25/17 08:11 300 MG Venlafaxine HCl (effeXOR TAB) 75 mg QAM PO 05/17/17 09:00 06/16/17 08:59 05/25/17 08:12 75 MG Pantoprazole Sodium (Protonix Tab) 40 mg QAM PO 05/17/17 09:00 06/16/17 08:59 05/25/17 08:11 40 MG Miscellaneous (Fentanyl Patch Remove & Waste) 1 ea Q3D N/A 05/18/17 08:59 06/17/17 08:58 05/24/17 09:54 1 EA Nystatin (Mycostatin Powder) 1 appln DAILY EXT 05/18/17 12:00 06/17/17 11:59 05/25/17 08:12 1 APPLN Miscellaneous Information (Consult Glycemic Management Pharmacy) 1 ea UD N/A 05/19/17 10:12 06/18/17 10:11 Insulin Glargine (Lantus Solostar Pen) Q12 SC 05/19/17 21:00 06/18/17 20:59 Future hold 05/25/17 08:57 8 UNITS Warfarin Sodium (Coumadin Tab) 10 mg DAILY@16 PO 05/19/17 16:00 06/18/17 15:59 Future hold 05/22/17 15:53 10 MG Senna (Senokot Tab) 8.6 mg QAM PO 05/22/17 08:00 06/21/17 07:59 05/25/17 08:12 8.6 MG Docusate Sodium (coLACE CAP) 100 mg BID PO 05/21/17 20:00 06/20/17 19:59 05/25/17 08:12 100 MG Metolazone (Zaroxolyn Tab) 2.5 mg TID@0730,1330,1930 PO 05/22/17 19:30 06/21/17 19:29 05/25/17 07:20 2.5 MG Tamsulosin HCl (Flomax Cap) 0.4 mg HS PO 05/22/17 21:00 06/21/17 20:59 05/24/17 19:47 0.4 MG Ciprofloxacin (Consult) 1 ea UD PRN N/A 05/23/17 17:15 06/22/17 17:14 Furosemide 80 mg/ Syringe 8 ml @ 4 mls/min TID IV 05/24/17 14:00 06/23/17 13:59 05/25/17 08:12 4 MLS/MIN Iron Sucrose 300 mg/Sodium Chloride 265 ml @ 177 mls/hr DAILY IV 05/24/17 15:00 05/27/17 07:00 05/25/17 08:12 177 MLS/HR Hydromorphone HCl (Dilaudid Inj) 1 mg Q2H PRN IV 05/25/17 10:15 06/06/17 23:29 05/25/17 10:41 1 MG Fentanyl (Duragesic Patch) 25 mcg Q72H TD 05/25/17 10:45 06/08/17 10:44 05/25/17 10:41 25 MCG Miscellaneous (Fentanyl Patch Remove & Waste) 1 ea Q3D N/A 05/25/17 10:44 06/24/17 10:43 05/25/17 10:40 1 EA Miscellaneous Information (Check Fentanyl Patch Placement) 1 ea QS N/A 05/25/17 16:00 06/24/17 15:59 Objective Vital Signs Date Time Temp Pulse Resp B/P (MAP) Pulse Ox O2 Delivery O2 Flow Rate FiO2 05/25/17 08:00 Room Air 05/25/17 07:18 36.8 64 20 132/74 (93) 94 Room Air 05/25/17 00:18 36.7 64 20 140/73 (95) 93 Room Air 05/25/17 00:00 Room Air 05/24/17 21:00 93 Room Air 05/24/17 20:15 158/76 (103) 05/24/17 19:42 62 162/88 (112) 05/24/17 16:06 37.1 64 18 158/75 (102) 93 Room Air Physical Exam General Appearance: WD/WN, no apparent distress, + obese Eyes: normal inspection, sclerae normal ENT: normal ENT inspection, pharynx normal Neck: supple, thyroid normal, trachea midline Respiratory/Chest: chest non-tender, lungs clear, normal breath sounds, no respiratory distress Cardiovascular: no gallop, no murmur, + irregularly irregular Abdomen: normal bowel sounds, non tender, soft Extremities: + inflammation, + swelling (. Check) Neurologic/Psychiatric: alert, oriented x 3 Skin: normal color, + pertinent finding ( leg infection improving) Lymphatic: no adenopathy Laboratory Results Last 24 Hours Test 05/24/17 16:29 05/24/17 20:10 10/12/17 05:50 05/25/17 07:56 Bedside Glucose 145 mg/dl 196 mg/dl White Blood Count 11.63 K/uL Red Blood Count 3.27 M/uL Hemoglobin 8.2 g/dL Hematocrit 26.4 % Mean Corpuscular Volume 80.7 fL Mean Corpuscular Hemoglobin 25.1 pg Mean Corpuscular Hemoglobin Concent 31.1 g/dl Platelet Count 192 K/uL Mean Platelet Volume 10.0 fL Neutrophils (%) (Auto) 79.5 % Lymphocytes (%) (Auto) 8.3 % Monocytes (%) (Auto) 9.5 % Eosinophils (%) (Auto) 2.1 % Basophils (%) (Auto) 0.3 % Neutrophils # (Auto) 9.23 K/uL Lymphocytes # (Auto) 0.97 K/uL Monocytes # (Auto) 1.11 K/uL Eosinophils # (Auto) 0.25 K/uL Basophils # (Auto) 0.04 K/uL RDW Standard Deviation 53.6 fL RDW Coefficient of Variation 18.1 % Immature Granulocyte % (Auto) 0.3 % Immature Granulocyte # (Auto) 0.03 K/uL Hypochromasia PRESENT Anisocytosis PRESENT Sodium Level 140 mmol/L Potassium Level 3.7 mmol/L Chloride Level 105 mmol/L Carbon Dioxide Level 27 mmol/L Anion Gap 8.0 mmol/L Blood Urea Nitrogen 86 mg/dl Creatinine 3.40 mg/dl Est Creatinine Clear Calc Drug Dose 45.7 ml/min Estimated GFR () 22.0 Estimated GFR (Non- 18.9 BUN/Creatinine Ratio 25.4 Random Glucose 134 mg/dl Calcium Level 8.4 mg/dl Magnesium Level 2.2 mg/dl Prothrombin Time 65.3 SECONDS Prothromb Time International Ratio 5.7 Test 05/25/17 08:15 Bedside Glucose 151 mg/dl Assessment and Plan 56-year-old male with lower extremity severe edema with leg ulcerations with recent infection with Pseudomonas, Alcaligenes, and Enterococcus. Patient to continue on oral antibiotics to promote better healing. Will follow.
[2017-05-25] MEDS: ACETAMINOPHEN/CODEINE 300/30MG TAB PO PRN (13:52)
[2017-05-25 14:58] VITALS: BP 143/84; PULSE 62; TEMP 36.8; O2SAT 98
[2017-05-25] MEDS: WARFARIN SOD 5 MG TAB PO SCH (15:47)
--- NOTE | 2017-05-25 18:03 | Progress Note ---
Internal Med Progress Note Date of Service: May 25, 2017. Provider Documentation: SUBJECTIVE: resting comfortably says pain in his right leg is same afebrile eating ok moved bowels no nausea no sob OBJECTIVE: Vital Signs-as noted below Exam: General-alert and awake. Not in distress. Obese ENT-normal hearing Neck-no neck masses Lungs-cta b/l no wheezing or crackles Heart-s1 and s2 heard regular rate and rhythm no murmurs Abdomen-soft bowel sounds present non tender no distension Extremities-lower extremities in dressing. b/l lower extremity edema present . Right lower ext pedal pulse present on doppler Neuro-alert and awake moves extremities Lab data as noted below. 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 BLE cellulitis HAd recent infection with Pseudomonas, Alcaligenes, and Enterococcus.Id recommends cipro and amoxicillin for 7-14 days course. stable History of Right lower extremity DVT/PE: history of IVC filter eiliquis has been changed to Coumadin secondary to worsening renal function inr 5.7 today. Coumadin on hold. Bilateral lower extremity swelling and pain Multifactorial with h/o lymphedema, CHF, CKD, dietary non-compliance, missing diuretic at assisted As per " DVT studies negative on 05/16/17 for more involvement of right leg DVT, could not tolerate repeat scan ordered on 05/19/17 due to scrotal discomfort" scrotal sling ordered, pain control with Lyrica,Fentanyl, dilaudid prn IV Lasix as per nephrology 05/24/17 pain got worse. pedal pulse heard on bed side Doppler seen by vascular and no intervention recommenced appreciate pain management inputs will monitor Arf ? on CKD Stage IV Management as per nephro f/u labs. Urinary retention has [facility] u[facility] on board and appreciate inputs Acute on chronic systolic/diastolic HF: on iv Lasix will monitor Chronic A Fib: on coreg Coumadin held for inr 6.7 HTN: stable on home meds Hypothyroidism: on levothyroxine DM II: on Lantus and iss appreciate pharmacy inputs DVT Ppx:inr 6.7 FULL CODE Dispo: To be determined SW consulted to help with discharge placement back to [facility] when medically improved . Vital Signs: Date Time Temp Pulse Resp B/P (MAP) Pulse Ox O2 Delivery O2 Flow Rate FiO2 05/25/17 16:00 Room Air 05/25/17 14:58 36.8 62 20 143/84 (103) 98 Room Air 05/25/17 08:00 Room Air 05/25/17 07:18 36.8 64 20 132/74 (93) 94 Room Air 05/25/17 00:18 36.7 64 20 140/73 (95) 93 Room Air 05/25/17 00:00 Room Air 05/24/17 21:00 93 Room Air 05/24/17 20:15 158/76 (103) 05/24/17 19:42 62 162/88 (112) Lab Results: Results Past 24 Hours Test 05/24/17 20:10 05/25/17 05:50 05/25/17 07:56 05/25/17 08:15 Range/Units Bedside Glucose 196 151 70-99 mg/dl White Blood Count 11.63 4.8-10.8 K/uL Red Blood Count 3.27 4.7-6.1 M/uL Hemoglobin 8.2 14.0-18.0 g/dL Hematocrit 26.4 42-52 % Mean Corpuscular Volume 80.7 80-100 fL Mean Corpuscular Hemoglobin 25.1 25-34 pg Mean Corpuscular Hemoglobin Concent 31.1 32-36 g/dl Platelet Count 192 130-400 K/uL Mean Platelet Volume 10.0 7.4-10.4 fL Neutrophils (%) (Auto) 79.5 % Lymphocytes (%) (Auto) 8.3 % Monocytes (%) (Auto) 9.5 % Eosinophils (%) (Auto) 2.1 % Basophils (%) (Auto) 0.3 % Neutrophils # (Auto) 9.23 1.4-6.5 K/uL Lymphocytes # (Auto) 0.97 1.2-3.4 K/uL Monocytes # (Auto) 1.11 0.11-0.59 K/uL Eosinophils # (Auto) 0.25 0-0.5 K/uL Basophils # (Auto) 0.04 0-0.2 K/uL RDW Standard Deviation 53.6 36.4-46.3 fL RDW Coefficient of Variation 18.1 11.5-14.5 % Immature Granulocyte % (Auto) 0.3 % Immature Granulocyte # (Auto) 0.03 0.00-0.02 K/uL Hypochromasia PRESENT Anisocytosis PRESENT Sodium Level 140 136-145 mmol/L Potassium Level 3.7 3.5-5.1 mmol/L Chloride Level 105 98-107 mmol/L Carbon Dioxide Level 27 21-32 mmol/L Anion Gap 8.0 3-11 mmol/L Blood Urea Nitrogen 86 7-18 mg/dl Creatinine 3.40 0.60-1.40 mg/dl Est Creatinine Clear Calc Drug Dose 45.7 ml/min Estimated GFR () 22.0 Estimated GFR (Non- 18.9 BUN/Creatinine Ratio 25.4 10-20 Random Glucose 134 70-99 mg/dl Calcium Level 8.4 8.5-10.1 mg/dl Magnesium Level 2.2 1.8-2.4 mg/dl Prothrombin Time 65.3 9.0-12.0 SECONDS Prothromb Time International Ratio 5.7 0.9-1.1 Test 05/25/17 11:56 05/25/17 16:36 Range/Units Bedside Glucose 203 154 70-99 mg/dl
--- NOTE | 2017-05-25 18:12 | DIAGNOSTIC IMAGING REPORT ---
R LOWER EXTREMITY WITHOUT CLINICAL HISTORY: 56 years-old Male presenting with severe pain. TECHNIQUE: Multidetector CT of the right lower leg was performed without the use of intravenous contrast. IV contrast: None. A dose lowering technique was used consistent with the principles of ALARA (as low as reasonably achievable). COMPARISON: 05/22/2017. CT DOSE (mGy.cm): The estimated cumulative dose is 815.84 mGy.cm. FINDINGS: Broke Worker topogram: Unremarkable. Diffuse subcutaneous fat infiltration along the entire visualized right lower leg into the foot. No evidence of subcutaneous gas to suggest necrotizing fasciitis. Diffuse fatty atrophy of the musculature. No significant interfascial fluid. No focal fluid collection. Superficial venous varicosities noted. Evaluation for patency of the vessels is not possible in the absence of intravenous contrast. Atherosclerosis noted. Osteopenia. Osteopenia limits evaluation for nondisplaced fracture. Apparent irregular radiolucency transversely oriented across the body of the calcaneus (series 500 image 48). While this may be due to heterogeneous mineralization in the setting of osteopenia, nondisplaced fracture is difficult to exclude. Knee joint congruent. Mild lateral subluxation of the patella. No nathan evidence of osseous erosion. IMPRESSION: 1. Apparent irregular radiolucency transversely oriented across the body of the calcaneus. While this may be due to heterogeneous mineralization in setting of osteopenia, nondisplaced fracture is difficult to exclude. If there is clinical concern, further evaluation with dedicated noncontrast MR of the hindfoot recommended. 2. Diffuse subcutaneous infiltration could be consistent with anasarca or severe cellulitis. No subcutaneous gas to suggest necrotizing fasciitis. No evidence of abscess. 3. Diffuse fatty atrophy of the musculature. 4. Osteopenia. Electronically signed by: Ke Lewis M.D. 05/25/2017 6:11 PM Dictated Date/Time: 05/25/2017 6:02 PM
[2017-05-25] MEDS: TRAZODONE HCL 50 MG TAB PO SCH (20:18)
[2017-05-25] MEDS: ATORVASTATIN 40 MG TAB PO SCH (20:19)
[2017-05-25] MEDS: TAMSULOSIN HCL 0.4 MG CAP PO SCH (20:22)
[2017-05-25] MEDS: DOCUSATE SODIUM/SENNA 50/8.6MG TAB PO SCH (20:23)
[2017-05-25] MEDS: HYDROmorphone INJ 1 MG/ML SYR IV PRN (21:45)
[2017-05-26 00:06] VITALS: BP 131/76; PULSE 64; TEMP 36.8; O2SAT 94
[2017-05-26] MEDS: HYDROmorphone INJ 1 MG/ML SYR IV PRN ×6 (01:00→17:50)
[2017-05-26] MEDS: ACETAMINOPHEN/CODEINE 300/30MG TAB PO PRN ×3 (04:36→21:32)
[2017-05-26 04:37] VITALS: PULSE 63; O2SAT 97
[2017-05-26] MEDS: hydrOXYzine HCL 25 MG TAB PO PRN ×2 (04:53→21:22)
[2017-05-26 06:48] LABS: BASO % 0.5 %; BASO ABS # 0.06 K/uL (0-0.2); EOS % 4.8 %; HEMATOCRIT 26.4 % (42-52); IG% 0.3 %; LYMPH ABS # 1.29 K/uL (1.2-3.4); MEAN CELL VOLUME 80.5 fL (80-100); MEAN CORPUSCULAR HEMOGLOBIN 24.7 pg (25-34); MEAN CORPUSCULAR HGB CONC 30.7 g/dl (32-36); MEAN PLATELET VOLUME 9.8 fL (7.4-10.4); MONO % 8.7 %; NEUT % 74.7 %; PLATELET COUNT 214 K/uL (130-400); RED BLOOD COUNT 3.28 M/uL (4.7-6.1); WHITE BLOOD COUNT 11.71 K/uL (4.8-10.8)
[2017-05-26 07:01] LABS: INR 5.4 (0.9-1.1); PROTHROMBIN TIME (PATIENT) 61.7 SECONDS (9.0-12.0)
[2017-05-26 07:11] LABS: COMPLETE YES; HYPOCHROMIA PRESENT
[2017-05-26 07:25] LABS: CALCIUM 8.4 mg/dl (8.5-10.1); CREATININE 3.5 mg/dl (0.60-1.40); MAGNESIUM 2.2 mg/dl (1.8-2.4); POTASSIUM 3.5 mmol/L (3.5-5.1)
[2017-05-26 07:45] VITALS: BP 160/84; PULSE 64
[2017-05-26] MEDS: IRON SUCROSE INJ 300 MG in SODIUM CHLORIDE 0.9% 250ML 250 ML IV SCH (07:47)
[2017-05-26] MEDS: METOLAZONE 2.5 MG TAB PO SCH (07:47)
[2017-05-26] MEDS: CIPROFLOXACIN 500 MG TAB PO SCH ×2 (07:47→21:22)
[2017-05-26] MEDS: AMOXICILLIN 500 MG CAP PO SCH ×3 (07:47→21:23)
[2017-05-26] MEDS: URSODIOL 300 MG CAP PO SCH ×2 (07:47→21:21)
[2017-05-26] MEDS: DOCUSATE SODIUM 100 MG CAP PO SCH ×2 (07:48→21:21)
[2017-05-26] MEDS: VENLAFAXINE HCL 50 MG TAB PO SCH (07:48)
[2017-05-26] MEDS: CARVEDILOL 25 MG TAB PO SCH ×2 (07:48→21:22)
[2017-05-26] MEDS: LORATADINE 10 MG TAB PO SCH (07:48)
[2017-05-26] MEDS: PREGABALIN 75 MG CAP PO SCH ×2 (07:49→21:22)
[2017-05-26] MEDS: PANTOprazole SOD 40 MG TAB PO SCH (07:49)
[2017-05-26] MEDS: SENNA 8.6 MG TAB PO SCH (07:49)
[2017-05-26] MEDS: INSULIN GLARGINE SOLOSTAR 100 UNITS/ML 3 ML PEN SC SCH ×2 (07:52→21:27)
[2017-05-26] MEDS: CHECK FENTANYL PATCH PLACEMENT SCH ×4 (08:04→23:53)
[2017-05-26 08:10] VITALS: BP 138/77; PULSE 60; TEMP 36.6; O2SAT 94
[2017-05-26] MEDS: INSULIN ASPART 100 UNITS/ML 3 ML PEN SC SCH ×4 (09:30→21:27)
--- NOTE | 2017-05-26 09:33 | Pain Management Progress Note ---
Pain Management Progress Note Date of Service May 26, 2017. Subjective Mr. Perez continues to report low back/buttock, and leg pain, right greater than left. Fentanyl patch was increased from 12mcg/hr to 25mcg/hr yesterday. He is unsure if it provided any pain relief. He does continue to use IV Dilaudid which is helping the pain slightly. He rates his pain a 10/10 currently. Case discussed with Dr. Hernandez Objective Vital Signs: Last Vital Signs Documentation Date Time Temp Pulse Resp B/P (MAP) Pulse Ox O2 Delivery O2 Flow Rate FiO2 05/26/17 08:10 36.6 60 19 138/77 (97) 94 Room Air Physical Exam: GENERAL: Mr. Perez is a 56 y/o white male that is morbidly obese and appears much older than his stated age. Speech and cognition is intact. Mood and affect is appropriate. Does not appear in acute distress. EXTREMITIES: There is marked edema of the lower extremities. The left lower leg is wrapped with sue wrap. The right leg is diffusely tender. There is mild wrinkling noted. NEURO: CN II-XII grossly intact with no focal deficits noted. AAO x 3. Laboratory Laboratory Findings 05/26/17 06:27 Red Blood Count 3.28 L, Mean Corpuscular Volume 80.5, Mean Corpuscular Hemoglobin 24.7 L, Mean Corpuscular Hemoglobin Concent 30.7 L, Mean Platelet Volume 9.8, Neutrophils (%) (Auto) 74.7, Lymphocytes (%) (Auto) 11.0, Monocytes (%) (Auto) 8.7, Eosinophils (%) (Auto) 4.8, Basophils (%) (Auto) 0.5, Neutrophils # (Auto) 8.74 H, Lymphocytes # (Auto) 1.29, Monocytes # (Auto) 1.02 H, Eosinophils # (Auto) 0.56 H, Basophils # (Auto) 0.06 Assessment 1. Marked edema of the bilateral lower extremities. 2. Pain of the lower extremities, right greater than left. 3. Morbid obesity. 4. Chronic DVT's requiring chronic anticoagulation on Coumadin 5. Stage 4 chronic kidney disease 6. Diabetes Mellitus Recommendations 1. Continue Fentanyl patch at 25mcg/hr 2. Patient has been instructed to take Tylenol #3 for breakthrough pain. 3. He has been instructed to use the IV Dilaudid only if the Fentanyl and Tylenol #3 are not providing adequate pain relief. He is understanding. 4. Do not recommend any changes to Lyrica due to the patient's stage 4 kidney disease.
[2017-05-26] MEDS: FUROSEMIDE INJ 80 MG in SYRINGE 0 ML IV SCH ×2 (09:37→21:20)
--- NOTE | 2017-05-26 10:03 | Pharmacy Progress Note ---
Glycemic Control Progress Note Date of Service May 26, 2017. Scope Glycemic Pharmacist consulted for glycemic control to write orders per [facility] inpatient glycemic control protocol. Objective Accuchecks BSG (last 24hrs): Test 05/25/17 11:56 05/25/17 16:36 05/25/17 19:44 05/26/17 06:27 Bedside Glucose 203 mg/dl (70-99) 154 mg/dl (70-99) 145 mg/dl (70-99) Random Glucose 125 mg/dl (70-99) Test 05/26/17 07:48 Bedside Glucose 119 mg/dl (70-99) HbA1c: Test 05/17/17 05:31 Hemoglobin A1c 7.5 % (4.5-5.6) H Recent Pertinent Medications The patient is currently receiving: * Basal insulin: Lantus 8 units every 12 hours * Correctional Insulin: Novolog Correction per scale ACHS Goal Range: Low 120 mg/dL - High 150 mg/dL Correction Factor: 30 mg/dL/unit * Prandial insulin: Per carb ratio of 1 unit per 10 grams CHO consumed Outpatient Anti-Diabetic Meds Basal Insulin Bolus Insulin Assessment & Plan ASSESSMENT: * Patient is currently receiving an average of 30 units of insulin per day * 16 units of basal insulin * 14 units of prandial/correctional insulin * BSGs ranging 119 - 203 mg/dl over the past 24hrs * Changes needed to insulin regimen: * AM Fasting BSG = 119 mg/dl. This is in goal range for patient based on inpatient targets and co-morbidities. No changes needed to basal insulin * Post-prandial BSGs are elevated/BSGs rise throughout the day therefore need to tighten CF/CR * Total daily dose is evenly distributed 50%:50% basal:prandial to prevent hypo /hyperglycemia & is yielding adequate glycemic control PLAN FOR INPATIENT GLYCEMIC CONTROL: * Basal insulin * Lantus 8 units SQ BID * Bolus insulin * NovoLog per scale ACHS or Q6hrs while NPO * Goal Range: Low 110 mg/dL - High 140 mg/dL * Correction Factor: 30 mg/dL/unit * Nutritional / Prandial insulin per carb ratio of 1 unit per 9 grams CHO consumed * Please note that the plan above was derived based on current level of insulin resistance and hospital stress. These recommendations are appropriate for inpatient admission only. Plan of care upon discharge will need to be reassessed to avoid potential outpatient hypo/hyperglycemia. Thank you.
[2017-05-26] MEDS: NYSTATIN POWDER 15GM BTL EXT SCH (12:45)
[2017-05-26 15:36] VITALS: BP 130/77; PULSE 63; TEMP 36.5; O2SAT 94
[2017-05-26] MEDS: WARFARIN SOD 5 MG TAB PO SCH (15:45)
--- NOTE | 2017-05-26 16:08 | Progress Note ---
Internal Med Progress Note Date of Service: May 26, 2017. Provider Documentation: SUBJECTIVE: says pain in his right leg is same afebrile denies chest pain or sob moving bowels ok no nausea OBJECTIVE: Vital Signs-as noted below Exam: General-alert and awake. Not in distress. Obese ENT-normal hearing Neck-no neck masses Lungs-cta b/l no wheezing or crackles Heart-s1 and s2 heard regular rate and rhythm no murmurs Abdomen-soft bowel sounds present non tender no distension Extremities-lower extremities in dressing. b/l lower extremity edema present . Right lower ext pedal pulse present on doppler Neuro-alert and awake moves extremities Lab data as noted below. 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 BLE cellulitis HAd recent infection with Pseudomonas, Alcaligenes, and Enterococcus.Id recommends cipro and amoxicillin for 7-14 days course. stable History of Right lower extremity DVT/PE: history of IVC filter eiliquis has been changed to Coumadin secondary to worsening renal function inr 5.4 today. Coumadin on hold. Bilateral lower extremity swelling and pain Multifactorial with h/o lymphedema, CHF, CKD, dietary non-compliance, missing diuretic at skilled nursing As per " DVT studies negative on 05/16/17 for more involvement of right leg DVT, could not tolerate repeat scan ordered on 05/19/17 due to scrotal discomfort" scrotal sling ordered, pain control with Lyrica,Fentanyl, dilaudid prn IV Lasix as per nephrology 05/24/17 pain got worse. pedal pulse heard on bed side Doppler seen by vascular and no intervention recommenced appreciate pain management inputs will monitor Right calcaneus non displaced fracture? on ct scan cannot get MRI as patient has pace maker consulted ortho CKD Stage IV Management as per nephro f/u labs. Urinary retention has [facility] u[facility] on board and appreciate inputs Acute on chronic systolic/diastolic HF: on iv Lasix will monitor Chronic A Fib: on coreg Coumadin held for inr 5.4 HTN: stable on home meds Hypothyroidism: on levothyroxine DM II: on Lantus and iss appreciate pharmacy inputs DVT Ppx:inr 5.4 FULL CODE Dispo: To be determined SW consulted to help with discharge placement back to [facility] when medically improved . Vital Signs: Date Time Temp Pulse Resp B/P (MAP) Pulse Ox O2 Delivery O2 Flow Rate FiO2 05/26/17 15:36 36.5 63 18 130/77 (94) 94 Room Air 05/26/17 13:24 Room Air 05/26/17 08:10 36.6 60 19 138/77 (97) 94 Room Air 05/26/17 07:45 64 160/84 (109) 05/26/17 04:37 63 97 Room Air 05/26/17 01:24 Room Air 05/26/17 00:06 36.8 64 18 131/76 (94) 94 Room Air Lab Results: Results Past 24 Hours Test 05/25/17 16:36 05/25/17 19:44 05/26/17 06:27 05/26/17 07:48 Range/Units Bedside Glucose 154 145 119 70-99 mg/dl White Blood Count 11.71 4.8-10.8 K/uL Red Blood Count 3.28 4.7-6.1 M/uL Hemoglobin 8.1 14.0-18.0 g/dL Hematocrit 26.4 42-52 % Mean Corpuscular Volume 80.5 80-100 fL Mean Corpuscular Hemoglobin 24.7 25-34 pg Mean Corpuscular Hemoglobin Concent 30.7 32-36 g/dl Platelet Count 214 130-400 K/uL Mean Platelet Volume 9.8 7.4-10.4 fL Neutrophils (%) (Auto) 74.7 % Lymphocytes (%) (Auto) 11.0 % Monocytes (%) (Auto) 8.7 % Eosinophils (%) (Auto) 4.8 % Basophils (%) (Auto) 0.5 % Neutrophils # (Auto) 8.74 1.4-6.5 K/uL Lymphocytes # (Auto) 1.29 1.2-3.4 K/uL Monocytes # (Auto) 1.02 0.11-0.59 K/uL Eosinophils # (Auto) 0.56 0-0.5 K/uL Basophils # (Auto) 0.06 0-0.2 K/uL RDW Standard Deviation 53.5 36.4-46.3 fL RDW Coefficient of Variation 18.1 11.5-14.5 % Immature Granulocyte % (Auto) 0.3 % Immature Granulocyte # (Auto) 0.04 0.00-0.02 K/uL Hypochromasia PRESENT Prothrombin Time 61.7 9.0-12.0 SECONDS Prothromb Time International Ratio 5.4 0.9-1.1 Sodium Level 140 136-145 mmol/L Potassium Level 3.5 3.5-5.1 mmol/L Chloride Level 101 98-107 mmol/L Carbon Dioxide Level 27 21-32 mmol/L Anion Gap 12.0 3-11 mmol/L Blood Urea Nitrogen 94 7-18 mg/dl Creatinine 3.50 0.60-1.40 mg/dl Est Creatinine Clear Calc Drug Dose 44.4 ml/min Estimated GFR () 21.2 Estimated GFR (Non- 18.3 BUN/Creatinine Ratio 27.0 10-20 Random Glucose 125 70-99 mg/dl Calcium Level 8.4 8.5-10.1 mg/dl Magnesium Level 2.2 1.8-2.4 mg/dl Test 05/26/17 12:00 Range/Units Bedside Glucose 135 70-99 mg/dl
--- NOTE | 2017-05-26 16:51 | Orthopedic Consultation ---
Orthopedic Consultation Date of Consultation: May 26, 2017. Attending Physician: Patrick Jorge MD Reason for Consultation: Possible right calcaneus fracture History of Present Illness 56-year-old male with numerous past medical problems is been admitted several times the last several months for treatment of bilateral lower extremity cellulitis and edema. He has had several CT scans and lower extremities. Recent CT scan of the right demonstrated osteopenia and there was a question of a calcaneus fracture. He denies any pain in this region currently. Past Medical/Surgical History Medical Problems: (1) Altered mental status Status: Acute (2) Anemia Status: Acute (3) Anemia Status: Acute (4) Cellulitis Status: Acute (5) Cellulitis Status: Acute (6) CHF (congestive heart failure) Status: Acute (7) Confusion Status: Acute (8) Deep vein thrombosis Status: Acute (9) Hypoglycemia Status: Acute (10) Hypoxia Status: Acute (11) Shortness of breath Status: Acute (12) Vitreous hemorrhage Status: Acute Social History Problems: (1) DVT (deep venous thrombosis) Status: Acute Family History FH: CAD (coronary artery disease) FATHER ( of [place] late s) Social History Smoking Status: Never Smoker Smokeless Tobacco Use: No Alcohol Use: none Drug Use: none Marital Status: Housing Status: unknown Occupation Status: retired Allergies Coded Allergies: Cephalosporins (Verified Allergy, Unknown, increased HR vs sick to stomach , pt unsure abx allergy to?, 05/05/17) Clindamycin (Verified Allergy, Unknown, increased HR vs sick to stomach, pt unsure abx allergy to?, 05/05/17) Iodinated Diagnostic Agents (Verified Allergy, Unknown, unknown, 04/04/17) Penicillins (Unverified Allergy, Unknown, increased HR vs sick to stomach , pt unsure abx allergy to?, 05/05/17) Perflutren (Verified Allergy, Unknown, PERFLUTREN LIPID MICROSPHERES, 04/04) Home Medications Scheduled Amoxicillin (Amoxil), 500 MG PO TID Apixaban (Eliquis), 5 MG PO BID Atorvastatin (Lipitor), 80 MG PO HS Carvedilol (Coreg), 25 MG PO BID Ciprofloxacin Hcl (Cipro), 500 MG PO BID Esomeprazole Magnesium (Nexium), 40 MG PO DAILY Fentanyl (Fentanyl), 12 MCG TOP [id number] Insulin Aspart (Novolog), 15 UNITS SQ TIDM Insulin Detemir (Levemir), 35 UNITS SQ BID Loratadine (Claritin), 10 MG PO DAILY Melatonin (Melatonin), 10 MG PO HS Multiple Vitamins W/ Minerals (Theragran-M), 1 TAB PO QAM Polyethylene Glycol 3350 (Miralax), 17 GM PO DAILY Pregabalin (Lyrica), 75 MG PO BID Sennosides-Docusate Sodium (Sennalax-S), 2 TABS PO HS Trazodone Hcl (Trazodone), 50 MG PO HS Ursodiol (Ursodiol), 300 MG PO BID Venlafaxine Hcl (Effexor), 75 MG PO QAM Scheduled PRN Acetaminophen (Tylenol), 500 MG PO Q4 PRN for Pain or Fever Acetaminophen (Tylenol), 650 MG OK Q6H PRN for Pain Acetaminophen/Codeine (Tylenol W/Codeine #3), 1 TAB PO Q6H PRN for Pain Albuterol Hfa (Ventolin Hfa), 2 PUFFS INH Q6H PRN for Wheezing Bisacodyl (Dulcolax), 1 SUPP OK Q24H PRN for no bm past 2 days Dextrose (Diabetic Use) (Insta-Glucose), 1 APPLN PO UD PRN for HYPOGLYCEMIA PROTOCOL Hydroxyzine Hcl (Atarax), 25 MG PO QID PRN for Itching Magnesium Hydroxide (Milk Of Magnesia), 30 ML PO UD PRN for Constipation Nitroglycerin (Nitrostat), 0.4 MG UT UD PRN for Chest Pain Ondansetron Hcl (Zofran), 4-8 MG PO Q8 PRN for Nausea Miscellaneous Medications Glucagon (Glucagon Emergency Kit) Current Inpatient Medications Current Inpatient Medications Medications (Trade) Dose Ordered Sig/Miguel Route Start Time Stop Time Status Last Admin Dose Admin Ondansetron HCl (Zofran Inj) 4 mg Q6H PRN IV 05/16/17 17:30 06/15/17 17:29 Insulin Aspart (novoLOG ASPART) SLIDING SCALE If C... ACHS SC 05/16/17 21:00 06/15/17 20:59 05/26/17 12:51 3 UNITS Glucose (Glucose 40% Gel) 15-30 GRAMS 15 GRAMS... UD PRN PO 05/16/17 17:30 06/15/17 17:29 Glucose (Glucose Chew Tab) 4-8 Tablets 4 Tabl... UD PRN PO 05/16/17 17:30 06/15/17 17:29 Dextrose (Dextrose 50% 50ML Syringe) 25-50ML OF 50% DW IV FOR... UD PRN IV 05/16/17 17:30 06/15/17 17:29 Glucagon (Glucagon Inj) 1 mg UD PRN SQ 05/16/17 17:30 06/15/17 17:29 Acetaminophen (Tylenol Tab) 500 mg Q4 PRN PO 05/16/17 19:15 06/15/17 19:14 05/22/17 13:42 500 MG Acetaminophen/ Codeine Phosphate (Tylenol w/ Codeine #3 Tab) 1 tab Q6H PRN PO 05/16/17 19:15 06/15/17 19:14 05/26/17 12:46 1 TAB Albuterol (Ventolin Hfa Inhaler) 2 puffs Q6H PRN INH 05/16/17 19:15 06/15/17 19:14 Amoxicillin (Amoxil Cap) 500 mg TID PO 05/16/17 21:00 06/01/17 20:59 05/26/17 12:44 500 MG Atorvastatin Calcium (Lipitor Tab) 80 mg HS PO 05/16/17 21:00 06/15/17 20:59 05/25/17 20:19 80 MG Bisacodyl (Dulcolax Supp) 10 mg Q24H PRN OK 05/16/17 19:15 06/15/17 19:14 Carvedilol (Coreg Tab) 25 mg BID PO 05/16/17 21:00 06/15/17 20:59 05/26/17 07:48 25 MG Ciprofloxacin (Cipro Tab) 500 mg BID PO 05/16/17 21:00 06/01/17 20:59 05/26/17 07:47 500 MG Hydroxyzine HCl (Vistaril Tab) 25 mg QID PRN PO 05/16/17 19:15 06/15/17 19:14 05/26/17 04:53 25 MG Loratadine (Claritin Tab) 10 mg DAILY PO 05/17/17 09:00 06/16/17 08:59 05/26/17 07:48 10 MG Magnesium Hydroxide (Milk Of Magnesia Susp) 30 ml UD PRN PO 05/16/17 19:15 06/15/17 19:14 Nitroglycerin (Nitrostat Tab) 0.4 mg UD PRN UT 05/16/17 19:15 06/15/17 19:14 Ondansetron HCl (Zofran Tab) 4 mg Q8 PRN PO 05/16/17 19:15 06/15/17 19:14 Pregabalin (Lyrica Cap) 75 mg BID PO 05/16/17 21:00 06/15/17 20:59 05/26/17 07:49 75 MG Senna/Docusate Sodium (Senokot S Tab) 2 tab HS PO 05/16/17 21:00 06/15/17 20:59 05/25/17 20:23 2 TAB Trazodone HCl (Desyrel Tab) 50 mg HS PO 05/16/17 21:00 06/15/17 20:59 05/25/17 20:18 50 MG Ursodiol (Actigall Cap) 300 mg BID PO 05/16/17 21:00 06/15/17 20:59 05/26/17 07:47 300 MG Venlafaxine HCl (effeXOR TAB) 75 mg QAM PO 05/17/17 09:00 06/16/17 08:59 05/26/17 07:48 75 MG Pantoprazole Sodium (Protonix Tab) 40 mg QAM PO 05/17/17 09:00 06/16/17 08:59 05/26/17 07:49 40 MG Miscellaneous (Fentanyl Patch Remove & Waste) 1 ea Q3D N/A 05/18/17 08:59 06/17/17 08:58 05/24/17 09:54 1 EA Nystatin (Mycostatin Powder) 1 appln DAILY EXT 05/18/17 12:00 06/17/17 11:59 05/26/17 12:45 1 APPLN Miscellaneous Information (Consult Glycemic Management Pharmacy) 1 ea UD N/A 05/19/17 10:12 06/18/17 10:11 Insulin Glargine (Lantus Solostar Pen) Q12 SC 05/19/17 21:00 06/18/17 20:59 Future hold 05/26/17 07:52 8 UNITS Warfarin Sodium (Coumadin Tab) 10 mg DAILY@16 PO 05/19/17 16:00 06/18/17 15:59 Future hold 05/22/17 15:53 10 MG Senna (Senokot Tab) 8.6 mg QAM PO 05/22/17 08:00 06/21/17 07:59 05/26/17 07:49 8.6 MG Docusate Sodium (coLACE CAP) 100 mg BID PO 05/21/17 20:00 06/20/17 19:59 05/26/17 07:48 100 MG Tamsulosin HCl (Flomax Cap) 0.4 mg HS PO 05/22/17 21:00 06/21/17 20:59 05/25/17 20:22 0.4 MG Ciprofloxacin (Consult) 1 ea UD PRN N/A 05/23/17 17:15 06/22/17 17:14 Iron Sucrose 300 mg/Sodium Chloride 265 ml @ 177 mls/hr DAILY IV 05/24/17 15:00 05/27/17 07:00 05/26/17 07:47 177 MLS/HR Fentanyl (Duragesic Patch) 25 mcg Q72H TD 05/25/17 10:45 06/08/17 10:44 05/25/17 10:41 25 MCG Miscellaneous (Fentanyl Patch Remove & Waste) 1 ea Q3D N/A 05/25/17 10:44 06/24/17 10:43 05/25/17 10:40 1 EA Miscellaneous Information (Check Fentanyl Patch Placement) 1 ea QS N/A 05/25/17 16:00 06/24/17 15:59 05/26/17 15:45 1 EA Hydromorphone HCl (Dilaudid Inj) 1 mg Q2H PRN IV 05/25/17 19:45 06/06/17 23:29 05/26/17 09:30 1 MG Furosemide 80 mg/ Syringe 8 ml @ 4 mls/min BID IV 05/26/17 20:00 06/23/17 13:59 Review of Systems Right lower extremity: No tenderness palpation to calcaneus. He has chronic skin changes consistent with chronic lower extremity edema. He is able to move the toes. Decreased sensation dorsum of the foot. Physical Exam Date Time Temp Pulse Resp B/P (MAP) Pulse Ox O2 Delivery O2 Flow Rate FiO2 05/26/17 15:36 36.5 63 18 130/77 (94) 94 Room Air 05/26/17 13:24 Room Air 05/26/17 08:10 36.6 60 19 138/77 (97) 94 Room Air 05/26/17 07:45 64 160/84 (109) 05/26/17 04:37 63 97 Room Air 05/26/17 01:24 Room Air 05/26/17 00:06 36.8 64 18 131/76 (94) 94 Room Air General Appearance: WD/WN Head: normocephalic Neck: supple Respiratory/Chest: chest non-tender Extremities/Musculoskelatal: + pedal edema Laboratory Results Last 24 Hours Test 05/25/17 19:44 05/26/17 06:27 05/26/17 07:48 05/26/17 12:00 Bedside Glucose 145 mg/dl 119 mg/dl 135 mg/dl White Blood Count 11.71 K/uL Red Blood Count 3.28 M/uL Hemoglobin 8.1 g/dL Hematocrit 26.4 % Mean Corpuscular Volume 80.5 fL Mean Corpuscular Hemoglobin 24.7 pg Mean Corpuscular Hemoglobin Concent 30.7 g/dl Platelet Count 214 K/uL Mean Platelet Volume 9.8 fL Neutrophils (%) (Auto) 74.7 % Lymphocytes (%) (Auto) 11.0 % Monocytes (%) (Auto) 8.7 % Eosinophils (%) (Auto) 4.8 % Basophils (%) (Auto) 0.5 % Neutrophils # (Auto) 8.74 K/uL Lymphocytes # (Auto) 1.29 K/uL Monocytes # (Auto) 1.02 K/uL Eosinophils # (Auto) 0.56 K/uL Basophils # (Auto) 0.06 K/uL RDW Standard Deviation 53.5 fL RDW Coefficient of Variation 18.1 % Immature Granulocyte % (Auto) 0.3 % Immature Granulocyte # (Auto) 0.04 K/uL Hypochromasia PRESENT Prothrombin Time 61.7 SECONDS Prothromb Time International Ratio 5.4 Sodium Level 140 mmol/L Potassium Level 3.5 mmol/L Chloride Level 101 mmol/L Carbon Dioxide Level 27 mmol/L Anion Gap 12.0 mmol/L Blood Urea Nitrogen 94 mg/dl Creatinine 3.50 mg/dl Est Creatinine Clear Calc Drug Dose 44.4 ml/min Estimated GFR () 21.2 Estimated GFR (Non- 18.3 BUN/Creatinine Ratio 27.0 Random Glucose 125 mg/dl Calcium Level 8.4 mg/dl Magnesium Level 2.2 mg/dl Assessment & Plan The CT scan reduction demonstrates some lucency within the calcaneus. There is question of whether this was secondary to osteopenia or secondary fracture. He had a CT scan of the lower extremity done 2 days prior. There is no mention of fracturing this seen CT scan report. He also has a similar finding on the contralateral calcaneus which is incidentally seen on the right leg CT scan. He is not really having any pain to this region. It is my opinion that the CT scan is industrial relations representative of osteopenic change and not a fracture. He may use the leg as tolerated. Thank you for the consultation. We will sign off.
--- NOTE | 2017-05-26 17:29 | Infectious Disease Progress Nt ---
Progress Note Date of Service May 26, 2017. Subjective Pt evaluation today including: conversation w/ patient, physical exam, chart review, lab review, review of studies, conversation w/ banking consultant, review of inpatient medication list Leg pain about the same. Orthopedic consultation noted. Remains afebrile, tolerating antibiotics without apparent difficulty. All Other Systems: Reviewed and Negative Medications Current Inpatient Medications Medications (Trade) Dose Ordered Sig/Miguel Route Start Time Stop Time Status Last Admin Dose Admin Ondansetron HCl (Zofran Inj) 4 mg Q6H PRN IV 05/16/17 17:30 06/15/17 17:29 Insulin Aspart (novoLOG ASPART) SLIDING SCALE If C... ACHS SC 05/16/17 21:00 06/15/17 20:59 05/26/17 12:51 3 UNITS Glucose (Glucose 40% Gel) 15-30 GRAMS 15 GRAMS... UD PRN PO 05/16/17 17:30 06/15/17 17:29 Glucose (Glucose Chew Tab) 4-8 Tablets 4 Tabl... UD PRN PO 05/16/17 17:30 06/15/17 17:29 Dextrose (Dextrose 50% 50ML Syringe) 25-50ML OF 50% DW IV FOR... UD PRN IV 05/16/17 17:30 06/15/17 17:29 Glucagon (Glucagon Inj) 1 mg UD PRN SQ 05/16/17 17:30 06/15/17 17:29 Acetaminophen (Tylenol Tab) 500 mg Q4 PRN PO 05/16/17 19:15 06/15/17 19:14 05/22/17 13:42 500 MG Acetaminophen/ Codeine Phosphate (Tylenol w/ Codeine #3 Tab) 1 tab Q6H PRN PO 05/16/17 19:15 06/15/17 19:14 05/26/17 12:46 1 TAB Albuterol (Ventolin Hfa Inhaler) 2 puffs Q6H PRN INH 05/16/17 19:15 06/15/17 19:14 Amoxicillin (Amoxil Cap) 500 mg TID PO 05/16/17 21:00 06/01/17 20:59 05/26/17 12:44 500 MG Atorvastatin Calcium (Lipitor Tab) 80 mg HS PO 05/16/17 21:00 06/15/17 20:59 05/25/17 20:19 80 MG Bisacodyl (Dulcolax Supp) 10 mg Q24H PRN [place] 05/16/17 19:15 06/15/17 19:14 Carvedilol (Coreg Tab) 25 mg BID PO 05/16/17 21:00 06/15/17 20:59 05/26/17 07:48 25 MG Ciprofloxacin (Cipro Tab) 500 mg BID PO 05/16/17 21:00 06/01/17 20:59 05/26/17 07:47 500 MG Hydroxyzine HCl (Vistaril Tab) 25 mg QID PRN PO 05/16/17 19:15 06/15/17 19:14 05/26/17 04:53 25 MG Loratadine (Claritin Tab) 10 mg DAILY PO 05/17/17 09:00 06/16/17 08:59 05/26/17 07:48 10 MG Magnesium Hydroxide (Milk Of Magnesia Susp) 30 ml UD PRN PO 05/16/17 19:15 06/15/17 19:14 Nitroglycerin (Nitrostat Tab) 0.4 mg UD PRN UT 05/16/17 19:15 06/15/17 19:14 Ondansetron HCl (Zofran Tab) 4 mg Q8 PRN PO 05/16/17 19:15 06/15/17 19:14 Pregabalin (Lyrica Cap) 75 mg BID PO 05/16/17 21:00 06/15/17 20:59 05/26/17 07:49 75 MG Senna/Docusate Sodium (Senokot S Tab) 2 tab HS PO 05/16/17 21:00 06/15/17 20:59 05/25/17 20:23 2 TAB Trazodone HCl (Desyrel Tab) 50 mg HS PO 05/16/17 21:00 06/15/17 20:59 05/25/17 20:18 50 MG Ursodiol (Actigall Cap) 300 mg BID PO 05/16/17 21:00 06/15/17 20:59 05/26/17 07:47 300 MG Venlafaxine HCl (effeXOR TAB) 75 mg QAM PO 05/17/17 09:00 06/16/17 08:59 05/26/17 07:48 75 MG Pantoprazole Sodium (Protonix Tab) 40 mg QAM PO 05/17/17 09:00 06/16/17 08:59 05/26/17 07:49 40 MG Miscellaneous (Fentanyl Patch Remove & Waste) 1 ea Q3D N/A 05/18/17 08:59 06/17/17 08:58 05/24/17 09:54 1 EA Nystatin (Mycostatin Powder) 1 appln DAILY EXT 05/18/17 12:00 06/17/17 11:59 05/26/17 12:45 1 APPLN Miscellaneous Information (Consult Glycemic Management Pharmacy) 1 ea UD N/A 05/19/17 10:12 06/18/17 10:11 Insulin Glargine (Lantus Solostar Pen) Q12 SC 05/19/17 21:00 06/18/17 20:59 Future hold 05/26/17 07:52 8 UNITS Warfarin Sodium (Coumadin Tab) 10 mg DAILY@16 PO 05/19/17 16:00 06/18/17 15:59 Future hold 05/22/17 15:53 10 MG Senna (Senokot Tab) 8.6 mg QAM PO 05/22/17 08:00 06/21/17 07:59 05/26/17 07:49 8.6 MG Docusate Sodium (coLACE CAP) 100 mg BID PO 05/21/17 20:00 06/20/17 19:59 05/26/17 07:48 100 MG Tamsulosin HCl (Flomax Cap) 0.4 mg HS PO 05/22/17 21:00 06/21/17 20:59 05/25/17 20:22 0.4 MG Ciprofloxacin (Consult) 1 ea UD PRN N/A 05/23/17 17:15 06/22/17 17:14 Iron Sucrose 300 mg/Sodium Chloride 265 ml @ 177 mls/hr DAILY IV 05/24/17 15:00 05/27/17 07:00 05/26/17 07:47 177 MLS/HR Fentanyl (Duragesic Patch) 25 mcg Q72H TD 05/25/17 10:45 06/08/17 10:44 05/25/17 10:41 25 MCG Miscellaneous (Fentanyl Patch Remove & Waste) 1 ea Q3D N/A 05/25/17 10:44 06/24/17 10:43 05/25/17 10:40 1 EA Miscellaneous Information (Check Fentanyl Patch Placement) 1 ea QS N/A 05/25/17 16:00 06/24/17 15:59 05/26/17 15:45 1 EA Hydromorphone HCl (Dilaudid Inj) 1 mg Q2H PRN IV 05/25/17 19:45 06/06/17 23:29 05/26/17 09:30 1 MG Furosemide 80 mg/ Syringe 8 ml @ 4 mls/min BID IV 05/26/17 20:00 06/23/17 13:59 Objective Vital Signs Date Time Temp Pulse Resp B/P (MAP) Pulse Ox O2 Delivery O2 Flow Rate FiO2 05/26/17 15:36 36.5 63 18 130/77 (94) 94 Room Air 05/26/17 13:24 Room Air 05/26/17 08:10 36.6 60 19 138/77 (97) 94 Room Air 05/26/17 07:45 64 160/84 (109) 05/26/17 04:37 63 97 Room Air 05/26/17 01:24 Room Air 05/26/17 00:06 36.8 64 18 131/76 (94) 94 Room Air Physical Exam General Appearance: WD/WN, no apparent distress, + obese Eyes: normal inspection, EOMI, sclerae normal ENT: normal ENT inspection, pharynx normal Neck: supple, no adenopathy, thyroid normal, trachea midline Respiratory/Chest: chest non-tender, lungs clear, normal breath sounds, no respiratory distress Cardiovascular: regular rate, rhythm, no gallop, no murmur Abdomen: normal bowel sounds, non tender, soft, no organomegaly Extremities: no calf tenderness, + inflammation, + swelling Neurologic/Psychiatric: alert, oriented x 3 Skin: normal color, no rash Laboratory Results Last 24 Hours Test 05/25/17 19:44 05/26/17 06:27 05/26/17 07:48 05/26/17 12:00 Bedside Glucose 145 mg/dl 119 mg/dl 135 mg/dl White Blood Count 11.71 K/uL Red Blood Count 3.28 M/uL Hemoglobin 8.1 g/dL Hematocrit 26.4 % Mean Corpuscular Volume 80.5 fL Mean Corpuscular Hemoglobin 24.7 pg Mean Corpuscular Hemoglobin Concent 30.7 g/dl Platelet Count 214 K/uL Mean Platelet Volume 9.8 fL Neutrophils (%) (Auto) 74.7 % Lymphocytes (%) (Auto) 11.0 % Monocytes (%) (Auto) 8.7 % Eosinophils (%) (Auto) 4.8 % Basophils (%) (Auto) 0.5 % Neutrophils # (Auto) 8.74 K/uL Lymphocytes # (Auto) 1.29 K/uL Monocytes # (Auto) 1.02 K/uL Eosinophils # (Auto) 0.56 K/uL Basophils # (Auto) 0.06 K/uL RDW Standard Deviation 53.5 fL RDW Coefficient of Variation 18.1 % Immature Granulocyte % (Auto) 0.3 % Immature Granulocyte # (Auto) 0.04 K/uL Hypochromasia PRESENT Prothrombin Time 61.7 SECONDS Prothromb Time International Ratio 5.4 Sodium Level 140 mmol/L Potassium Level 3.5 mmol/L Chloride Level 101 mmol/L Carbon Dioxide Level 27 mmol/L Anion Gap 12.0 mmol/L Blood Urea Nitrogen 94 mg/dl Creatinine 3.50 mg/dl Est Creatinine Clear Calc Drug Dose 44.4 ml/min Estimated GFR () 21.2 Estimated GFR (Non- 18.3 BUN/Creatinine Ratio 27.0 Random Glucose 125 mg/dl Calcium Level 8.4 mg/dl Magnesium Level 2.2 mg/dl Test 05/26/17 16:40 Bedside Glucose 133 mg/dl Assessment and Plan 56-year-old male with lower extremity severe edema with leg ulcerations with recent infection with Pseudomonas, Alcaligenes, and Enterococcus. patient be continued on oral antibiotics, likely 2-3 more weeks. Will follow.
[2017-05-26] MEDS: DOCUSATE SODIUM/SENNA 50/8.6MG TAB PO SCH (21:20)
[2017-05-26] MEDS: ATORVASTATIN 40 MG TAB PO SCH (21:21)
[2017-05-26] MEDS: TRAZODONE HCL 50 MG TAB PO SCH (21:22)
[2017-05-26] MEDS: TAMSULOSIN HCL 0.4 MG CAP PO SCH (21:23)
[2017-05-26 23:42] VITALS: BP 143/72; PULSE 63; TEMP 36.8; O2SAT 90
[2017-05-27] MEDS: ACETAMINOPHEN/CODEINE 300/30MG TAB PO PRN ×3 (05:27→20:37)
[2017-05-27 06:00] LABS: INR 4.3 (0.9-1.1); PROTHROMBIN TIME (PATIENT) 48.4 SECONDS (9.0-12.0)
[2017-05-27 07:45] VITALS: BP 119/68; PULSE 63; TEMP 36.4; O2SAT 98
[2017-05-27] MEDS: AMOXICILLIN 500 MG CAP PO SCH ×3 (08:48→20:40)
[2017-05-27] MEDS: URSODIOL 300 MG CAP PO SCH ×2 (08:48→20:40)
[2017-05-27] MEDS: FUROSEMIDE INJ 80 MG in SYRINGE 0 ML IV SCH ×2 (08:48→20:37)
[2017-05-27] MEDS: PANTOprazole SOD 40 MG TAB PO SCH (08:48)
[2017-05-27] MEDS: DOCUSATE SODIUM 100 MG CAP PO SCH ×2 (08:48→20:40)
[2017-05-27] MEDS: LORATADINE 10 MG TAB PO SCH (08:48)
[2017-05-27] MEDS: CARVEDILOL 25 MG TAB PO SCH ×2 (08:48→20:42)
[2017-05-27] MEDS: SENNA 8.6 MG TAB PO SCH (08:48)
[2017-05-27] MEDS: VENLAFAXINE HCL 50 MG TAB PO SCH (08:49)
[2017-05-27] MEDS: CIPROFLOXACIN 500 MG TAB PO SCH ×2 (08:49→20:40)
[2017-05-27] MEDS: NYSTATIN POWDER 15GM BTL EXT SCH (08:50)
[2017-05-27] MEDS: CHECK FENTANYL PATCH PLACEMENT SCH ×2 (08:50→17:39)
[2017-05-27] MEDS: PREGABALIN 75 MG CAP PO SCH ×2 (08:57→20:40)
[2017-05-27] MEDS: INSULIN ASPART 100 UNITS/ML 3 ML PEN SC SCH ×4 (08:57→20:49)
[2017-05-27] MEDS: INSULIN GLARGINE SOLOSTAR 100 UNITS/ML 3 ML PEN SC SCH ×2 (08:57→20:49)
[2017-05-27] MEDS ORDERED: AMOXICILLIN CONSULT PHARMACY PRN (11:45)
--- NOTE | 2017-05-27 13:10 | Pharmacy Progress Note ---
Glycemic: Assessment & Plan Date of Service May 27, 2017. Assessment & Plan The patient is currently receiving 32 units of insulin per day. BSGs ranging 114 - 199 mg/dl over the past 24hrs. * Basal insulin: Lantus 8-10 units every 12 hours * Correctional Insulin: Novolog Correction per scale ACHS Goal Range: Low 110 mg/dL - High 140 mg/dL Correction Factor: 30 mg/dL/unit * Prandial insulin: Per carb ratio of 1 unit per 9 grams CHO consumed BSGs continue to improve. Will change Lantus to a set dose of 9 units BID instead of the current dosing range. Pharmacy will continue to monitor patient daily and write orders per [facility] inpatient glycemic control protocol. Thanks. DISCHARGE RECOMMENDATIONS: * Please refer to note on 05/20
[2017-05-27] MEDS: WARFARIN SOD 5 MG TAB PO SCH (15:15)
[2017-05-27 15:28] VITALS: BP 117/70; PULSE 67; TEMP 37.1; O2SAT 93
--- NOTE | 2017-05-27 17:02 | Progress Note ---
Internal Med Progress Note Date of Service: May 27, 2017. Provider Documentation: SUBJECTIVE: says pain in his right leg is somewhat better today afebrile no chest pain or sob eating ok no other complaints OBJECTIVE: Vital Signs-as noted below Exam: General-alert and awake. Not in distress. Obese ENT-normal hearing Neck-no neck masses Lungs-cta b/l no wheezing or crackles Heart-s1 and s2 heard regular rate and rhythm no murmurs Abdomen-soft bowel sounds present non tender no distension Extremities-lower extremities in dressing. b/l lower extremity edema present . Right lower ext pedal pulse present on doppler Neuro-alert and awake moves extremities Lab data as noted below. 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 BLE cellulitis HAd recent infection with Pseudomonas, Alcaligenes, and Enterococcus.Id recommends cipro and amoxicillin for 7-14 days course. stable History of Right lower extremity DVT/PE: history of IVC filter eiliquis has been changed to Coumadin secondary to worsening renal function inr 4.3 today. Coumadin on hold. Bilateral lower extremity swelling and pain Multifactorial with h/o lymphedema, CHF, CKD, dietary non-compliance, missing diuretic at [facility] As per " DVT studies negative on 05/16/17 for more involvement of right leg DVT, could not tolerate repeat scan ordered on 05/19/17 due to scrotal discomfort" scrotal sling ordered, pain control with Lyrica,Fentanyl, dilaudid prn IV Lasix as per nephrology 05/24/17 pain got worse. pedal pulse heard on bed side Doppler seen by vascular and no intervention recommenced appreciate pain management inputs will monitor Right calcaneus non displaced fracture? on ct scan cannot get MRI as patient has pace maker consulted ortho- not consistent with fracture as per ortho CKD Stage IV Management as per nephro f/u labs. Urinary retention has [facility] on board and appreciate inputs Acute on chronic systolic/diastolic HF: on iv Lasix will monitor Chronic A Fib: on coreg Coumadin held for inr 4.3 HTN: stable on home meds Hypothyroidism: on levothyroxine DM II: on Lantus and iss appreciate pharmacy inputs DVT Ppx:inr 5.4 FULL CODE Dispo: possible d/c on Monday SW consulted to help with discharge placement back to [facility] when medically improved . Vital Signs: Date Time Temp Pulse Resp B/P (MAP) Pulse Ox O2 Delivery O2 Flow Rate FiO2 05/27/17 15:55 Room Air 05/27/17 15:28 37.1 67 20 117/70 (86) 93 Room Air 05/27/17 09:00 Room Air 05/27/17 07:45 36.4 63 18 119/68 (85) 98 Room Air 05/27/17 00:00 Room Air 05/26/17 23:42 36.8 63 18 143/72 (95) 90 Room Air Lab Results: Results Past 24 Hours Test 05/26/17 20:12 05/27/17 05:16 05/27/17 07:37 05/27/17 11:36 Range/Units Bedside Glucose 199 114 157 70-99 mg/dl Prothrombin Time 48.4 9.0-12.0 SECONDS Prothromb Time International Ratio 4.3 0.9-1.1 Test 05/27/17 16:31 Range/Units Bedside Glucose 114 70-99 mg/dl
[2017-05-27] MEDS: DOCUSATE SODIUM/SENNA 50/8.6MG TAB PO SCH (20:40)
[2017-05-27] MEDS: ATORVASTATIN 40 MG TAB PO SCH (20:40)
[2017-05-27] MEDS: TAMSULOSIN HCL 0.4 MG CAP PO SCH (20:40)
[2017-05-27] MEDS: TRAZODONE HCL 50 MG TAB PO SCH (20:40)
[2017-05-27] MEDS: HYDROmorphone INJ 1 MG/ML SYR IV PRN (22:36)
[2017-05-27 23:25] VITALS: BP 123/67; PULSE 62; TEMP 36.7; O2SAT 95
[2017-05-28] MEDS: CHECK FENTANYL PATCH PLACEMENT SCH ×4 (00:14→23:52)
[2017-05-28] MEDS: ACETAMINOPHEN/CODEINE 300/30MG TAB PO PRN ×4 (04:45→23:15)
[2017-05-28] MEDS: HYDROmorphone INJ 1 MG/ML SYR IV PRN ×5 (05:18→23:51)
[2017-05-28 06:50] LABS: INR 3.1 (0.9-1.1); PROTHROMBIN TIME (PATIENT) 34.9 SECONDS (9.0-12.0)
[2017-05-28 07:10] LABS: CALCIUM 8.3 mg/dl (8.5-10.1); CREATININE 3.8 mg/dl (0.60-1.40); POTASSIUM 3.4 mmol/L (3.5-5.1)
[2017-05-28 07:32] VITALS: BP 119/74; PULSE 63; TEMP 36.7; O2SAT 94
[2017-05-28] MEDS ORDERED: POTASSIUM CHLORIDE 10 MEQ TABCR PO ONE (07:45)
[2017-05-28] MEDS: NYSTATIN POWDER 15GM BTL EXT SCH (08:43)
[2017-05-28] MEDS: FUROSEMIDE INJ 80 MG in SYRINGE 0 ML IV SCH (08:44)
[2017-05-28] MEDS: AMOXICILLIN 500 MG CAP PO SCH ×3 (08:44→19:29)
[2017-05-28] MEDS: CIPROFLOXACIN 500 MG TAB PO SCH ×2 (08:44→19:29)
[2017-05-28] MEDS: URSODIOL 300 MG CAP PO SCH ×2 (08:44→19:29)
[2017-05-28] MEDS: CARVEDILOL 25 MG TAB PO SCH ×2 (08:45→19:30)
[2017-05-28] MEDS: DOCUSATE SODIUM 100 MG CAP PO SCH ×2 (08:45→19:29)
[2017-05-28] MEDS: VENLAFAXINE HCL 50 MG TAB PO SCH (08:45)
[2017-05-28] MEDS: LORATADINE 10 MG TAB PO SCH (08:45)
[2017-05-28] MEDS: PANTOprazole SOD 40 MG TAB PO SCH (08:46)
[2017-05-28] MEDS: PREGABALIN 75 MG CAP PO SCH ×2 (08:46→19:29)
[2017-05-28] MEDS: SENNA 8.6 MG TAB PO SCH (08:49)
[2017-05-28] MEDS: INSULIN ASPART 100 UNITS/ML 3 ML PEN SC SCH ×4 (08:55→20:58)
[2017-05-28] MEDS: INSULIN GLARGINE SOLOSTAR 100 UNITS/ML 3 ML PEN SC SCH ×2 (08:56→20:58)
[2017-05-28] MEDS: FENTANYL 25 MCG/HR TDSY TD SCH (10:05)
--- NOTE | 2017-05-28 10:08 | Nephrology Progress Note ---
Nephrology Progress Note Date of Service: May 28, 2017. Subjective 56 yo male with chronic lymphedema/recurrent cellulitis with underlying ckd stage 4 who is tolerating the aggressive diuresis. legs are improving. has some chronic leg pains. would like trujillo out. l Objective Date Time Temp Pulse Resp B/P (MAP) Pulse Ox O2 Delivery O2 Flow Rate FiO2 05/28/17 07:32 36.7 63 18 119/74 (89) 94 Room Air 05/28/17 00:05 Room Air 05/27/17 23:25 36.7 62 18 123/67 (85) 95 Room Air 05/27/17 19:33 Room Air 05/27/17 15:55 Room Air 05/27/17 15:28 37.1 67 20 117/70 (86) 93 Room Air Physical Exam: General-aaox3 Eyes-no scleral icterus ENT-mmm Neck-supple Lungs-clear Heart-regular Abdomen-bs+ s/nt/nd Extremities-left leg wrapped, still with significant edema but overall much improved Neuro-nonfocal Current Inpatient Medications Medications (Trade) Dose Ordered Sig/Miguel Route Start Time Stop Time Status Last Admin Dose Admin Ondansetron HCl (Zofran Inj) 4 mg Q6H PRN IV 05/16/17 17:30 06/15/17 17:29 Insulin Aspart (novoLOG ASPART) SLIDING SCALE If C... ACHS SC 05/16/17 21:00 06/15/17 20:59 05/28/17 08:55 5 UNITS Glucose (Glucose 40% Gel) 15-30 GRAMS 15 GRAMS... UD PRN PO 05/16/17 17:30 06/15/17 17:29 Glucose (Glucose Chew Tab) 4-8 Tablets 4 Tabl... UD PRN PO 05/16/17 17:30 06/15/17 17:29 Dextrose (Dextrose 50% 50ML Syringe) 25-50ML OF 50% DW IV FOR... UD PRN IV 05/16/17 17:30 06/15/17 17:29 Glucagon (Glucagon Inj) 1 mg UD PRN SQ 05/16/17 17:30 06/15/17 17:29 Acetaminophen (Tylenol Tab) 500 mg Q4 PRN PO 05/16/17 19:15 11/2/17 19:14 05/22/17 13:42 500 MG Acetaminophen/ Codeine Phosphate (Tylenol w/ Codeine #3 Tab) 1 tab Q6H PRN PO 05/16/17 19:15 06/15/17 19:14 05/28/17 04:45 1 TAB Albuterol (Ventolin Hfa Inhaler) 2 puffs Q6H PRN INH 05/16/17 19:15 06/15/17 19:14 Amoxicillin (Amoxil Cap) 500 mg TID PO 05/16/17 21:00 06/01/17 20:59 05/28/17 08:44 500 MG Atorvastatin Calcium (Lipitor Tab) 80 mg HS PO 05/16/17 21:00 06/15/17 20:59 05/27/17 20:40 80 MG Bisacodyl (Dulcolax Supp) 10 mg Q24H PRN NE 05/16/17 19:15 06/15/17 19:14 Carvedilol (Coreg Tab) 25 mg BID PO 05/16/17 21:00 06/15/17 20:59 05/28/17 08:45 25 MG Ciprofloxacin (Cipro Tab) 500 mg BID PO 05/16/17 21:00 06/01/17 20:59 05/28/17 08:44 500 MG Hydroxyzine HCl (Vistaril Tab) 25 mg QID PRN PO 05/16/17 19:15 06/15/17 19:14 05/26/17 21:22 25 MG Loratadine (Claritin Tab) 10 mg DAILY PO 05/17/17 09:00 06/16/17 08:59 05/28/17 08:45 10 MG Magnesium Hydroxide (Milk Of Magnesia Susp) 30 ml UD PRN PO 05/16/17 19:15 06/15/17 19:14 Nitroglycerin (Nitrostat Tab) 0.4 mg UD PRN UT 05/16/17 19:15 06/15/17 19:14 Ondansetron HCl (Zofran Tab) 4 mg Q8 PRN PO 05/16/17 19:15 06/15/17 19:14 Pregabalin (Lyrica Cap) 75 mg BID PO 05/16/17 21:00 06/15/17 20:59 05/28/17 08:46 75 MG Senna/Docusate Sodium (Senokot S Tab) 2 tab HS PO 05/16/17 21:00 06/15/17 20:59 05/27/17 20:40 2 TAB Trazodone HCl (Desyrel Tab) 50 mg HS PO 05/16/17 21:00 06/15/17 20:59 05/27/17 20:40 50 MG Ursodiol (Actigall Cap) 300 mg BID PO 05/16/17 21:00 06/15/17 20:59 05/28/17 08:44 300 MG Venlafaxine HCl (effeXOR TAB) 75 mg QAM PO 05/17/17 09:00 06/16/17 08:59 05/28/17 08:45 75 MG Pantoprazole Sodium (Protonix Tab) 40 mg QAM PO 05/17/17 09:00 06/16/17 08:59 05/28/17 08:46 40 MG Nystatin (Mycostatin Powder) 1 appln DAILY EXT 05/18/17 12:00 06/17/17 11:59 05/28/17 08:43 1 APPLN Miscellaneous Information (Consult Glycemic Management Pharmacy) 1 ea UD N/A 05/19/17 10:12 06/18/17 10:11 Warfarin Sodium (Coumadin Tab) 10 mg DAILY@16 PO 05/19/17 16:00 06/18/17 15:59 Future hold 05/22/17 15:53 10 MG Senna (Senokot Tab) 8.6 mg QAM PO 05/22/17 08:00 06/21/17 07:59 05/28/17 08:49 8.6 MG Docusate Sodium (coLACE CAP) 100 mg BID PO 05/21/17 20:00 06/20/17 19:59 05/28/17 08:45 100 MG Tamsulosin HCl (Flomax Cap) 0.4 mg HS PO 05/22/17 21:00 06/21/17 20:59 05/27/17 20:40 0.4 MG Ciprofloxacin (Consult) 1 ea UD PRN N/A 05/23/17 17:15 06/22/17 17:14 Fentanyl (Duragesic Patch) 25 mcg Q72H TD 05/25/17 10:45 06/08/17 10:44 05/25/17 10:41 25 MCG Miscellaneous (Fentanyl Patch Remove & Waste) 1 ea Q3D N/A 05/25/17 10:44 06/24/17 10:43 05/25/17 10:40 1 EA Miscellaneous Information (Check Fentanyl Patch Placement) 1 ea QS N/A 05/25/17 16:00 06/24/17 15:59 05/28/17 08:58 1 EA Hydromorphone HCl (Dilaudid Inj) 1 mg Q2H PRN IV 05/25/17 19:45 06/06/17 23:29 05/28/17 05:18 1 MG Miscellaneous Information (Pharmacy Consult) 1 ea UD PRN N/A 05/27/17 11:45 06/26/17 11:44 Insulin Glargine (Lantus Solostar Pen) 9 units Q12 SC 05/27/17 21:00 06/26/17 20:59 05/28/17 08:56 9 UNITS Last 24 Hours Test 05/27/17 11:36 05/27/17 16:31 05/27/17 19:57 05/28/17 05:47 Bedside Glucose 157 mg/dl 114 mg/dl 141 mg/dl Prothrombin Time 34.9 SECONDS Prothromb Time International Ratio 3.1 Sodium Level 139 mmol/L Potassium Level 3.4 mmol/L Chloride Level 101 mmol/L Carbon Dioxide Level 28 mmol/L Anion Gap 10.0 mmol/L Blood Urea Nitrogen 114 mg/dl Creatinine 3.80 mg/dl Est Creatinine Clear Calc Drug Dose 40.9 ml/min Estimated GFR () 19.2 Estimated GFR (Non- 16.6 BUN/Creatinine Ratio 30.0 Random Glucose 117 mg/dl Calcium Level 8.3 mg/dl Test 05/28/17 07:58 Bedside Glucose 110 mg/dl Assessment & Plan ckd stage 4-diuresing aggessively. creatinine trending up. to switch to oral diuretics and remove trujillo. ok from renal perspective to go home tomorrow. .
[2017-05-28] MEDS: FENTANYL PATCH REMOVE & WASTE SCH (10:10)
[2017-05-28 15:03] VITALS: BP 146/85; PULSE 63; TEMP 36.5; O2SAT 94
--- NOTE | 2017-05-28 16:24 | Progress Note ---
Internal Med Progress Note Date of Service: May 28, 2017. Provider Documentation: SUBJECTIVE: says pain in his right leg is better today afebrile trujillo taken out today no complaints OBJECTIVE: Vital Signs-as noted below Exam: General-alert and awake. Not in distress. Obese ENT-normal hearing Neck-no neck masses Lungs-cta b/l no wheezing or crackles Heart-s1 and s2 heard regular rate and rhythm no murmurs Abdomen-soft bowel sounds present non tender no distension Extremities-lower extremities in dressing. b/l lower extremity edema present . Right lower ext pedal pulse present on doppler Neuro-alert and awake moves extremities Lab data as noted below. 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 BLE cellulitis HAd recent infection with Pseudomonas, Alcaligenes, and Enterococcus.Id recommends cipro and amoxicillin for 7-14 days course.#12 stable History of Right lower extremity DVT/PE: history of IVC filter eiliquis has been changed to Coumadin secondary to worsening renal function inr 3.1today. Coumadin on hold. Bilateral lower extremity swelling and pain Multifactorial with h/o lymphedema, CHF, CKD, dietary non-compliance, [facility] As per " DVT studies negative on 05/16/17 for more involvement of right leg DVT, could not tolerate repeat scan ordered on 05/19/17 due to scrotal discomfort" scrotal sling ordered, pain control with Lyrica,Fentanyl, dilaudid prn IV Lasix as per nephrology 05/24/17 pain got worse. pedal pulse heard on bed side Doppler seen by vascular and no intervention recommenced appreciate pain management inputs pain better now will monitor Right calcaneus non displaced fracture? on ct scan cannot get MRI as patient has pace maker consulted ortho- not consistent with fracture as per ortho CKD Stage IV Management as per nephro f/u labs. Urinary retention has turjillo urology on board and appreciate inputs trujillo removed today Acute on chronic systolic/diastolic HF: on iv Lasix will monitor Chronic A Fib: on coreg Coumadin held for inr 3.1 HTN: stable on home meds Hypothyroidism: on levothyroxine DM II: on Lantus and iss appreciate pharmacy inputs DVT Ppx:inr 3.1 FULL CODE Dispo: possible d/c on Monday SW consulted to help with discharge placement back to [facility] when medically improved . Vital Signs: Date Time Temp Pulse Resp B/P (MAP) Pulse Ox O2 Delivery O2 Flow Rate FiO2 05/28/17 15:03 36.5 63 16 146/85 (105) 94 Room Air 05/28/17 10:28 Room Air 05/28/17 07:32 36.7 63 18 119/74 (89) 94 Room Air 05/28/17 00:05 Room Air 05/27/17 23:25 36.7 62 18 123/67 (85) 95 Room Air 05/27/17 19:33 Room Air Lab Results: Results Past 24 Hours Test 05/27/17 16:31 05/27/17 19:57 05/28/17 05:47 05/28/17 07:58 Range/Units Bedside Glucose 114 141 110 70-99 mg/dl Prothrombin Time 34.9 9.0-12.0 SECONDS Prothromb Time International Ratio 3.1 0.9-1.1 Sodium Level 139 136-145 mmol/L Potassium Level 3.4 3.5-5.1 mmol/L Chloride Level 101 98-107 mmol/L Carbon Dioxide Level 28 21-32 mmol/L Anion Gap 10.0 3-11 mmol/L Blood Urea Nitrogen 114 7-18 mg/dl Creatinine 3.80 0.60-1.40 mg/dl Est Creatinine Clear Calc Drug Dose 40.9 ml/min Estimated GFR () 19.2 Estimated GFR (Non- 16.6 BUN/Creatinine Ratio 30.0 10-20 Random Glucose 117 70-99 mg/dl Calcium Level 8.3 8.5-10.1 mg/dl Test 05/28/17 11:12 Range/Units Bedside Glucose 114 70-99 mg/dl
[2017-05-28] MEDS: WARFARIN SOD 5 MG TAB PO SCH (17:14)
[2017-05-28] MEDS: FUROSEMIDE 80 MG TAB PO SCH (17:14)
[2017-05-28] MEDS: ATORVASTATIN 40 MG TAB PO SCH (19:29)
[2017-05-28] MEDS: DOCUSATE SODIUM/SENNA 50/8.6MG TAB PO SCH (19:29)
[2017-05-28] MEDS: TRAZODONE HCL 50 MG TAB PO SCH (19:29)
[2017-05-28] MEDS: hydrOXYzine HCL 25 MG TAB PO PRN (19:29)
[2017-05-28] MEDS: TAMSULOSIN HCL 0.4 MG CAP PO SCH (19:30)
[2017-05-28 23:41] VITALS: BP 113/71; PULSE 64; TEMP 36.6; O2SAT 92
[2017-05-29] MEDS: ACETAMINOPHEN/CODEINE 300/30MG TAB PO PRN ×2 (04:56→10:56)
[2017-05-29] MEDS: HYDROmorphone INJ 1 MG/ML SYR IV PRN ×2 (05:04→08:50)
[2017-05-29 05:46] LABS: INR 3.3 (0.9-1.1); PROTHROMBIN TIME (PATIENT) 36.8 SECONDS (9.0-12.0)
[2017-05-29 07:12] VITALS: BP 133/64; PULSE 64; TEMP 36.7; O2SAT 94
[2017-05-29 07:49] LABS: BUN/CREATININE RATIO 32.2 (10-20); CALCIUM 8.5 mg/dl (8.5-10.1); CREATININE 3.67 mg/dl (0.60-1.40); POTASSIUM 3.3 mmol/L (3.5-5.1)
[2017-05-29 07:54] LABS: BASO % 0.4 %; BASO ABS # 0.04 K/uL (0-0.2); EOS % 5.9 %; HEMATOCRIT 27.2 % (42-52); IG% 0.2 %; LYMPH % 9.8 %; LYMPH ABS # 1.01 K/uL (1.2-3.4); MEAN CELL VOLUME 80.5 fL (80-100); MEAN CORPUSCULAR HEMOGLOBIN 24.6 pg (25-34); MEAN CORPUSCULAR HGB CONC 30.5 g/dl (32-36); MONO % 8.9 %; NEUT % 74.8 %; PLATELET COUNT 277 K/uL (130-400); RED BLOOD COUNT 3.38 M/uL (4.7-6.1); WHITE BLOOD COUNT 10.31 K/uL (4.8-10.8)
[2017-05-29 08:16] LABS: ANISOCYTOSIS PRESENT; COMPLETE YES; HYPERSEGMENTED POLYS 1+; HYPOCHROMIA PRESENT
--- NOTE | 2017-05-29 08:43 | Pharmacy Progress Note ---
Glycemic Control Progress Note Date of Service May 29, 2017. Scope Glycemic Pharmacist consulted for glycemic control to write orders per [facility] inpatient glycemic control protocol. Objective Accuchecks BSG (last 24hrs): Test 05/28/17 11:12 05/28/17 16:51 05/28/17 20:06 05/29/17 05:26 Bedside Glucose 114 mg/dl (70-99) 147 mg/dl (70-99) 148 mg/dl (70-99) Random Glucose 129 mg/dl (70-99) Test 05/29/17 07:39 Bedside Glucose 133 mg/dl (70-99) HbA1c: Test 05/17/17 05:31 Hemoglobin A1c 7.5 % (4.5-5.6) H Recent Pertinent Medications The patient is currently receiving: * Basal insulin: Lantus 9 units every 12 hours * Correctional Insulin: Novolog Correction per scale ACHS Goal Range: Low 110 mg/dL - High 140 mg/dL Correction Factor: 30 mg/dL/unit * Prandial insulin: Per carb ratio of 1 unit per 9 grams CHO consumed Outpatient Anti-Diabetic Meds Levemir 35 units twice daily Novolog 15 units TID with meals Assessment & Plan ASSESSMENT: * See progress note from 05/27/17 for more background info, in short: * Pt receiving SQ basal bolus insulin regimen for hyperglycemia secondary to baseline DM (outpatient regimen on hold), infection (cellulitis currently on oral ciprofloxacin and amoxicillin). * Patient is currently receiving an average of 40 units of insulin per day * 18 units of basal insulin * 22 units of prandial/correctional insulin * BSGs ranging 110 - 148 mg/dl over the past 24hrs * Changes needed to insulin regimen: * AM Fasting BSG = 133 mg/dl. This is in slightly above goal range for patient based on inpatient targets and co-morbidities. The patient's fasting blood sugar was increased from yesterday's blood sugar of 110 mg/dL. Increase Lantus slightly by 10% today to accommodate. * Post-prandial BSGs appear to remain steady. Blood sugars do increase throughout the day indicating that the carbohydrate ratio may not be aggressive enough for the patient. Will tighten parameters slightly. * Total daily dose = ~40 units. This dosing is yielding adequate glycemic control - will tighten as appropriate. PLAN FOR INPATIENT GLYCEMIC CONTROL: * INCREASING Lantus to 10 units SQ BID * TIGHTENING correction factor to 25 mg/dl/unit * TIGHTENING carb ratio to 1 unit per 8 grams CHO consumed * Continuing goal range to Low 110 mg/dL - High 140 mg/dL RECOMMENDATIONS FOR DISCHARGE: * Please refer to note from 05/20/17 Thank you.
[2017-05-29] MEDS: PREGABALIN 75 MG CAP PO SCH (08:49)
[2017-05-29] MEDS: SENNA 8.6 MG TAB PO SCH (08:53)
[2017-05-29] MEDS: VENLAFAXINE HCL 50 MG TAB PO SCH (08:53)
[2017-05-29] MEDS: AMOXICILLIN 500 MG CAP PO SCH ×2 (08:54→12:49)
[2017-05-29] MEDS: CIPROFLOXACIN 500 MG TAB PO SCH (08:55)
[2017-05-29] MEDS: LORATADINE 10 MG TAB PO SCH (08:55)
[2017-05-29] MEDS: FUROSEMIDE 80 MG TAB PO SCH (08:55)
[2017-05-29] MEDS: URSODIOL 300 MG CAP PO SCH (08:55)
[2017-05-29] MEDS: DOCUSATE SODIUM 100 MG CAP PO SCH (08:55)
[2017-05-29] MEDS: PANTOprazole SOD 40 MG TAB PO SCH (08:56)
[2017-05-29] MEDS: NYSTATIN POWDER 15GM BTL EXT SCH (08:57)
[2017-05-29] MEDS: CHECK FENTANYL PATCH PLACEMENT SCH (08:58)
[2017-05-29] MEDS ORDERED: INSULIN GLARGINE SOLOSTAR 100 UNITS/ML 3 ML PEN SC SCH (09:00)
[2017-05-29] MEDS: CARVEDILOL 25 MG TAB PO SCH (09:01)
[2017-05-29] MEDS: INSULIN ASPART 100 UNITS/ML 3 ML PEN SC SCH ×2 (09:16→12:57)
[2017-05-29] MEDS ORDERED: POTASSIUM CHLORIDE 10 MEQ TABCR PO STA (09:53)
[2017-05-29] MEDS ORDERED: WARF5TAB90 PO (13:05)
[2017-05-29] MEDS ORDERED: NVLGIPEN SC (13:05)
[2017-05-29] MEDS ORDERED: LVMI SQ (13:05)
[2017-05-29] MEDS ORDERED: DRGTP25 TD (13:05)
[2017-05-29] MEDS ORDERED: FLM4 PO (13:05)
[2017-05-29] MEDS ORDERED: NYSP EXT (13:05)
[2017-05-29] MEDS ORDERED: LSX80 PO (13:05)
[2017-05-29] MEDS ORDERED: AMOX500C3 PO (13:10)
[2017-05-29] MEDS ORDERED: CIPR-255 PO (13:10)
--- NOTE | 2017-05-29 13:12 | Discharge Instructions ---
Discharge Instructions Date of Service May 29, 2017. Admission Reason for Admission: Lower Extremity Edema, Sob Discharge Discharge Diagnosis / Problem: LOWER EXTREMITY EDEMA, CELLULITIS, LOWER EXTREMITY PAIN Discharge Goals Goal(s): Decrease discomfort Activity Recommendations Activity Level: Assistance Required, Bedside Commode Therapies: Physical Therapy, Occupational Therapy . Additional Information Patient informed of condition: Yes Advance Directives: Yes DNR: No Level of Care: Skilled Communicable Disease: No Prognosis: Stable Vivas Catheter: No Instructions / Follow-Up Instructions / Follow-Up FOLLOWUP WITH FAMILY DOCTOR IN ONE WEEK FOLLOWUP WITH NEPHROLOGY OR IN 2-3 WEEKS. FOLLOWUP WITH INFECTIOUS DISEASE AN WOUND CLINIC IN 1-2 WEEKS. LAB: CBC AND BMP AND VITAMIN D LEVELS IN ONE WEEK AND FOLLOW RESULTS WITH FAMILY DOCTOR AND NEPHROLOGY. LAB: PT/INR DAILY AND ADJUST COUMADIN DOSING KINDLY CLOSELY FOLLOW BLOOD SUGARS AND ADJUST INSULIN REGIMEN. HOLD COUMADIN TODAY AND RESTART TOMORROW BASED ON LAB: PT/INR. Current Hospital Diet Patient's current hospital diet: Low Sodium Diet (2gm Na), AHA Diet (Heart Healthy) Discharge Diet Recommended Diet: AHA Diet (Heart Healthy), Low Sodium Diet (2gm Na) Pending Studies Studies pending at discharge: no Physician Orders On Transfer Special Precautions: FALL AND ASPIRATION PRECAUTIONS Vital Signs: EVERY 8HRS Laboratory Results Hemoglobin A1c Test 05/17/17 05:31 Range/Units Estimated Average Glucose 169 mg/dl Hemoglobin A1c 7.5 H 4.5-5.6 % Medical Emergencies . Who to Call and When: Medical Emergencies: If at any time you feel your situation is an emergency, please call 911 immediately. . Non-Emergent Contact Non-Emergency issues call your: Primary Care Provider . . "Provider Documentation" section prepared by Patrick Jorge. . Core Measure Problem Core Measures: None
[2017-05-29 13:22] VITALS: BP 133/64; PULSE 64; TEMP 36.7; O2SAT 94
--- NOTE | 2017-05-29 13:25 | Progress Note ---
Internal Med Progress Note Date of Service: May 29, 2017. Provider Documentation: SUBJECTIVE: SITTING ON THE EDGE OF THE BED SAYS PAIN IN HIS LEG IS BETTER CONTROLLED AFEBRILE NO CHEST PAIN OR SOB OK FOR DISCHARGE OBJECTIVE: Vital Signs-as noted below Exam: General-alert and awake. Not in distress. Obese ENT-normal hearing Neck-no neck masses Lungs-cta b/l no wheezing or crackles Heart-s1 and s2 heard regular rate and rhythm no murmurs Abdomen-soft bowel sounds present non tender no distension Extremities-lower extremities in dressing. b/l lower extremity chronic edema present . Right lower ext pedal pulse present on doppler Neuro-alert and awake moves extremities Lab data as noted below. 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 BLE cellulitis HAd recent infection with Pseudomonas, Alcaligenes, and Enterococcus.Id recommends cipro and amoxicillin for 7-14 days course.#13 ID recommends 2-3 more weeks of abx. followup with ID/wound clinic History of Right lower extremity DVT/PE: history of IVC filter eiliquis has been changed to Coumadin secondary to worsening renal function inr 3.1today. monitor inrr daily and adjust Coumadin dosing. Bilateral lower extremity swelling and pain Multifactorial with h/o lymphedema, CHF, CKD, dietary non-compliance, missing diuretic at care home venous doppler on 05/24/17: No significant change in the nonocclusive thrombus within the right common femoral and superficial femoral veins pain control with Lyrica,Fentanyl, dilaudid prn IV Lasix as per nephrology for edema 05/24/17 pain got worse. pedal pulse heard on bed side Doppler seen by vascular and no intervention recommenced appreciate pain management inputs fentanyl patch increased to 25mcg q 72hrs pain better now will monitor Right calcaneus non displaced fracture? on ct scan cannot get MRI as patient has pace maker consulted ortho- not consistent with fracture as per ortho CKD Stage IV Management as per nephro cr 3.6 on discharge discharging on lasix 80mg bid follow lab: bmp in one week and follow results with pcp and nephrology followup with nephrology in 2-3 weeks Urinary retention has trujillo urology on board and appreciate inputs started on Flomax trujillo removed yesterday and voiding fine Acute on chronic systolic/diastolic HF: on iv Lasix stable discarding on lasix 80mg bid Chronic A Fib: on coreg stopped eliquis secondary to renal failure Coumadin held for inr 3.3 adjust Coumadin dosing HTN: stable on coreg Hypothyroidism: on levothyroxine DM II: discharged on levemir 15units bid and iss close monitor and adjust insulin regimen DVT Ppx:inr 3.3 FULL CODE Dispo: discharge to [facility] Vital Signs: Date Time Temp Pulse Resp B/P (MAP) Pulse Ox O2 Delivery O2 Flow Rate FiO2 05/29/17 07:12 36.7 64 16 133/64 (87) 94 Room Air 05/29/17 00:30 Room Air 05/28/17 23:41 36.6 64 20 113/71 (85) 92 Room Air 05/28/17 20:42 Room Air 05/28/17 15:03 36.5 63 16 146/85 (105) 94 Room Air Lab Results: Results Past 24 Hours Test 05/28/17 16:51 05/28/17 20:06 05/29/17 05:26 05/29/17 07:39 Range/Units Bedside Glucose 147 148 133 70-99 mg/dl White Blood Count 10.31 4.8-10.8 K/uL Red Blood Count 3.38 4.7-6.1 M/uL Hemoglobin 8.3 14.0-18.0 g/dL Hematocrit 27.2 42-52 % Mean Corpuscular Volume 80.5 80-100 fL Mean Corpuscular Hemoglobin 24.6 25-34 pg Mean Corpuscular Hemoglobin Concent 30.5 32-36 g/dl Platelet Count 277 130-400 K/uL Mean Platelet Volume 10.0 7.4-10.4 fL Neutrophils (%) (Auto) 74.8 % Lymphocytes (%) (Auto) 9.8 % Monocytes (%) (Auto) 8.9 % Eosinophils (%) (Auto) 5.9 % Basophils (%) (Auto) 0.4 % Neutrophils # (Auto) 7.71 1.4-6.5 K/uL Lymphocytes # (Auto) 1.01 1.2-3.4 K/uL Monocytes # (Auto) 0.92 0.11-0.59 K/uL Eosinophils # (Auto) 0.61 0-0.5 K/uL Basophils # (Auto) 0.04 0-0.2 K/uL RDW Standard Deviation 52.8 36.4-46.3 fL RDW Coefficient of Variation 18.2 11.5-14.5 % Immature Granulocyte % (Auto) 0.2 % Immature Granulocyte # (Auto) 0.02 0.00-0.02 K/uL Hypersegmented Polys 1+ Hypochromasia PRESENT Basophilic Stippling 1+ Anisocytosis PRESENT Prothrombin Time 36.8 9.0-12.0 SECONDS Prothromb Time International Ratio 3.3 0.9-1.1 Sodium Level 138 136-145 mmol/L Potassium Level 3.3 3.5-5.1 mmol/L Chloride Level 99 98-107 mmol/L Carbon Dioxide Level 28 21-32 mmol/L Anion Gap 10.0 3-11 mmol/L Blood Urea Nitrogen 118 7-18 mg/dl Creatinine 3.67 0.60-1.40 mg/dl Est Creatinine Clear Calc Drug Dose 42.4 ml/min Estimated GFR () 20.0 Estimated GFR (Non- 17.3 BUN/Creatinine Ratio 32.2 10-20 Random Glucose 129 70-99 mg/dl Calcium Level 8.5 8.5-10.1 mg/dl Test 05/29/17 11:44 Range/Units Bedside Glucose 145 70-99 mg/dl
--- NOTE | 2017-05-29 13:37 | Discharge Summary ---
Discharge Summary Date of Service May 29, 2017. Discharge Summary Admission Date: May 16, 2017 at 17:24 Discharge Date: May 29, 2017 Discharge Disposition: alf facility Principal Diagnosis: B/L LOWER EXTREMITY EDEMA CELLULITIS ARF/CKD STAGE 4 ACUTE ON CHRONIC SYSTOLIC/DIASTOLIC CHF URINARY RETENTION Secondary Diagnoses/Problems: (1) CAD (coronary artery disease) Status: Chronic (2) Chronic a-fib Status: Chronic (3) Chronic CHF Permanent Comment: combined systolic and diastolic Status: Chronic (4) Chronic pain Status: Chronic (5) CKD (chronic kidney disease), stage IV Status: Chronic (6) Depression Status: Chronic (7) Diabetes mellitus, type II Status: Chronic (8) Dyslipidemia Status: Chronic (9) H/o sacral fracture Status: Chronic (10) Heart attack Status: Resolved (11) History of pulmonary embolus (PE) Status: Chronic (12) History of stroke Status: Chronic (13) HTN (hypertension) Status: Chronic (14) Idiopathic cardiomyopathy Status: Chronic (15) Ischemic cardiomyopathy Status: Resolved (16) Lymphedema Status: Chronic (17) Obesity, morbid, BMI 40.0-49.9 Status: Chronic (18) Obstructive hydrocephalus Status: Chronic (19) Pulmonary embolism Status: Resolved (20) Right leg DVT Status: Chronic (21) Sleep apnea Permanent Comment: not on CPAP Status: Chronic (22) Venous insufficiency Status: Chronic Procedures: VENOUS DOPPLER 05/16/17: 1. Nonocclusive thrombus redemonstrated within the right common femoral and superficial femoral veins. 2. No sonographic evidence of left lower extremity deep venous thrombosis. 3. Limited study secondary to patient obesity and soft tissue edema. CT SCAN LEFT LOWER EXTREMITY 17: 1. Osteopenia with no acute bony abnormality seen in the left lower extremity. 2. Diffuse subcutaneous soft tissue edema is identified with associated dermal thickening. This could be related to anasarca/fluid overload versus cellulitis. Clinical correlation will be essential. 3. There is diffuse fatty atrophy of the regional musculature. 4. A metallic foreign body is again seen in the tip of the first toe. CT SCAN RIGHT LOWER EXTREMITY 05/22/17: 1. Osteopenia with no acute bony abnormality seen in the right lower extremity. 2. Diffuse subcutaneous soft tissue edema is identified with associated dermal thickening. This could be related to anasarca/fluid overload versus cellulitis. Clinical correlation will be essential. 3. There is diffuse fatty atrophy of the regional musculature. CT CHEST 05/22/17: 1. No acute intrathoracic findings. 2. Moderate cardiomegaly. CT ABD/PELVIS: 1. No evidence of bowel obstruction. No evidence of free air 2. Stable hepatosplenomegaly 3. Indwelling IVC filter. Multiple abdominal and pelvic venous collaterals 4. Stable aortocaval, iliac, and inguinal lymphadenopathy 5. Stable 18 mm right renal nodule RIGHT LOWER EXT US 05/24/17: No significant change in the nonocclusive thrombus within the right common femoral and superficial femoral veins. The remaining distal venous structures were not visualized as the patient was unable to complete the examination. RIGHT LOWER EXTREMITY CT 05/25/17: 1. Apparent irregular radiolucency transversely oriented across the body of the calcaneus. While this may be due to heterogeneous mineralization in setting of osteopenia, nondisplaced fracture is difficult to exclude. If there is clinical concern, further evaluation with dedicated noncontrast MR of the hindfoot recommended. 2. Diffuse subcutaneous infiltration could be consistent with anasarca or severe cellulitis. No subcutaneous gas to suggest necrotizing fasciitis. No evidence of abscess. 3. Diffuse fatty atrophy of the musculature. 4. Osteopenia. Consultations: NEPHROLOGY CARDIOLOGY ID WOUND UROLOGY Pending Studies/Follow-Up: LAB: CBC AND BMP IN ONE WEEK PT/INR DAILY Medication Reconciliation New Medications: Warfarin Sodium (Coumadin) 5 Mg Tab 5 MG PO DAILY, #30 TAB 1 Refill Fentanyl (Fentanyl) 25 Mcg Tdsy 25 MCG TD Q72H, #10 Furosemide (Furosemide) 80 Mg Tab 80 MG PO BID17, #60 TAB 1 Refill Insulin Aspart (Novolog Flexpen) 100 Units/Ml Inj 0 UNITS SC ACHS, #1 2 Refills INSULIN NOVOLOG SLIDING SCALE BLOOD SUGARS GOAL RANGE 110-140MG/DL CORRCTION FACTOR = 25MG/DL/UNIT CARB RATIO = 1 UNIT PER 10 GRAM CHO CONSUMED Nystatin (Nystop) 45 Appln/15 Gm Powd 1 APPLN EXT DAILY, #1 2 Refills Tamsulosin HCl (Tamsulosin HCl) 0.4 Mg Cap 0.4 MG PO HS, #30 CAP 2 Refills Changed Medications: Ciprofloxacin Hcl (Cipro) 500 Mg Tab 500 MG PO BID for 15 Days, TAB (Changed from: STARTED 05/09. LAST DOSE TO BE GIVEN 05/23 @0800) STARTED 05/09. Insulin Detemir (Levemir) 100 Units/Ml Inj 15 UNITS SQ BID, #1 1 Refill (Changed from: 35 UNITS; Refills: ) Continued Medications: Acetaminophen (Tylenol) 500 Mg Tab 500 MG PO Q4 PRN for Pain or Fever use for mild pain 1-3 or fever >101f max 3gm apap/24hr Acetaminophen/Codeine (Tylenol W/Codeine #3) 300 Mg/30 Mg Tab 1 TAB PO Q6H PRN for Pain, TAB Albuterol Hfa (Ventolin Hfa) 200 Puffs/34978 Mcg Aers 2 PUFFS INH Q6H PRN for Wheezing Amoxicillin (Amoxil) 500 Mg Cap 500 MG PO TID for 15 Days (This prescription has been renewed) STARTED 05/09/17 Atorvastatin (Lipitor) 40 Mg Tab 80 MG PO HS, TAB UES 40MG TABS FOR 80MG DOSE Bisacodyl (Dulcolax) 10 Mg Sup 1 SUPP AZ Q24H PRN for no bm past 2 days, SUP Carvedilol (Coreg) 25 Mg Tab 25 MG PO BID Dextrose (Diabetic Use) (Insta-Glucose) 77.4 % Gel 1 APPLN PO UD PRN for HYPOGLYCEMIA PROTOCOL Esomeprazole Magnesium (Nexium) 40 Mg Capcr 40 MG PO DAILY, CAP Glucagon (Glucagon Emergency Kit) 1 Mg Kit Hydroxyzine Hcl (Atarax) 25 Mg Tab 25 MG PO QID PRN for Itching, TAB Loratadine (Claritin) 10 Mg Tab 10 MG PO DAILY, TAB Magnesium Hydroxide (Milk Of Magnesia) 30 Ml Susp 30 ML PO UD PRN for Constipation, ML Melatonin (Melatonin) 5 Mg Tab 10 MG PO HS Multiple Vitamins W/ Minerals (Theragran-M) 1 Tab Tab 1 TAB PO QAM Nitroglycerin (Nitrostat) 0.4 Mg Tab 0.4 MG UT UD PRN for Chest Pain Ondansetron Hcl (Zofran) 4 Mg Tab 4-8 MG PO Q8 PRN for Nausea, TAB Polyethylene Glycol 3350 (Miralax) 1 Pow Pow 17 GM PO DAILY, #255 GM Pregabalin (Lyrica) 75 Mg Cap 75 MG PO BID, CAP Sennosides-Docusate Sodium (Sennalax-S) 1 Tab Tab 2 TABS PO HS Trazodone Hcl (Trazodone) 50 Mg Tab 50 MG PO HS, TAB Ursodiol (Ursodiol) 300 Mg Cap 300 MG PO BID Venlafaxine Hcl (Effexor) 75 Mg Tab 75 MG PO QAM, TAB Discontinued Medications: Acetaminophen (Tylenol) 650 Mg Supp 650 MG AZ Q6H PRN for Pain Apixaban (Eliquis) 5 Mg Tab 5 MG PO BID, TAB Fentanyl (Fentanyl) 12 Mcg Tdsy 12 MCG TOP [id number] Insulin Aspart (Novolog) 100 Units/Ml Inj 15 UNITS SQ TIDM Admission Information HPI (per Admitting provider): This is a 56yo M with a PMH of HTN, DM II, h/o chronic R DVT, idiopathic cardiomyopathy with systolic and diastolic dysfunction, s/p Pacemaker, chronic A Fib (on Eliquis), lymphedema, CKD stage IV and other medical problems listed below who presents for worsening bilateral LE edema. This is the patient's third admission since March for worsening BLE edema. Was admitted from Apr 04- for BLE cellulitis, treated with vanc and aztreonam. Was admitted again from Apr 22 for fluid overload, BLE cellulitis with wound cultures growing VRE. Was treated with cipro and ampicillin in-patient and then discharged to [facility] on PO Cipro and amoxicillin. Patient states that BLE improved during his past admission but once he returned to [facility], the facility did not have all of his medications. States that he went without his diuretic for a few days and during this time, noticed his legs "filling up with fluid again". Endorses sharp, aching 6/10 pain in lower legs (R>L) with swelling extending to scrotal area. Endorses a 10 pound weight gain since last admission. Receives wound care at [facility]. States that wounds have improved in the past few weeks. Per med rec and discussion with [facility], it seems that patient has not been on PO Lasix since discharged from [facility] on 05/01. Endorses exertional dyspnea when transferring from bed to wheelchair. Also endorses exertional chest pain that is centrally located, throbbing. States that he has experienced this time of pain intermittently for years. Rates CP a 1 /10. Endorses a dull abdominal pain and "feeling of fullness". Is urinating and having bowel movements normally. Denies fever, chills, diaphoresis, palpitations , orthopnea, PND, nausea, vomiting, focal LE weakness. + Chronic numbness in bilateral LE from knees down from a previous spinal surgery. + Chronic decreased visual acuity. Physical Exam (per Admitting): General Appearance: + mild distress (Patient somnolent on exam but answered all questions appropriately.) Head: normocephalic, atraumatic Eyes: normal inspection, PERRL, EOMI, sclerae normal ENT: hearing grossly normal, pharynx normal Neck: supple, no adenopathy, trachea midline, + JVD Respiratory/Chest: chest non-tender, lungs clear, no respiratory distress, no accessory muscle use, + decreased breath sounds Cardiovascular: regular rate, rhythm, no murmur, + pertinent finding ( Diminished but palpable peripheral pulses) Abdomen/GI: normal bowel sounds, soft, + tenderness (Diffuse TTP on exam. ) Back: normal inspection, no CVA tenderness Extremities/Musculoskelatal: no calf tenderness, + swelling (Significant LE swelling, R>L, extending up to scrotal area. Tender to touch. ) Neurologic/Psych: sheet rock applicator II-XII nml as tested, no motor/sensory deficits ( Chronic sensory loss in bilateral LE from knees down. ), alert, normal mood/ affect, oriented x 3 Skin: normal color, + pertinent finding (Skin hypertrophied any discolored from venous stasis. Presence of 3x3cm well-circumscribed, ulcerated lesion on L anterior tamayo with clear drainage. 1x1cm scabbed lesion on L hemiscrotum. Presence of healing wounds on bilateral posterior calf, R lateral foot. Toenails yellowed; 1st R toenail bed without nail. Darkened spots visualized on all toes distally. ) Hospital Course This is a 56yo M with a PMH of HTN, DM II, h/o chronic R DVT, 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 BLE cellulitis HAd recent infection with Pseudomonas, Alcaligenes, and Enterococcus.Id recommends cipro and amoxicillin for 7-14 days course.#13 ID recommends 2-3 more weeks of abx. followup with ID/wound clinic History of Right lower extremity DVT/PE: history of IVC filter eiliquis has been changed to Coumadin secondary to worsening renal function inr 3.3today. monitor inr daily and adjust Coumadin dosing. Bilateral lower extremity swelling and pain Multifactorial with h/o lymphedema, CHF, CKD, dietary non-compliance, missing diuretic at correction venous doppler on 05/24/17: No significant change in the nonocclusive thrombus within the right common femoral and superficial femoral veins pain control with Lyrica,Fentanyl, dilaudid prn IV Lasix as per nephrology for edema 05/24/17 pain got worse. pedal pulse heard on bed side Doppler seen by vascular and no intervention recommenced appreciate pain management inputs fentanyl patch increased to 25mcg q 72hrs pain better now will monitor Right calcaneus non displaced fracture? on ct scan cannot get MRI as patient has pace maker consulted ortho- not consistent with fracture as per ortho CKD Stage IV Management as per nephro cr 3.6 on discharge discharging on lasix 80mg bid follow lab: bmp in one week and follow results with pcp and nephrology followup with nephrology in 2-3 weeks Urinary retention has [facility] on board and appreciate inputs started on Flomax trujillo removed yesterday and voiding fine Acute on chronic systolic/diastolic HF: on iv Lasix stable discarding on lasix 80mg bid Chronic A Fib: on coreg stopped eliquis secondary to renal failure Coumadin held for inr 3.3 adjust Coumadin dosing HTN: stable on coreg Hypothyroidism: on levothyroxine DM II: discharged on levemir 15units bid and iss close monitor and adjust insulin regimen DVT Ppx:inr 3.3 FULL CODE Dispo: [facility] Total time spent on discharge = 45MINUTES This includes examination of the patient, discharge planning, medication reconciliation, and communication with other providers. Discharge Instructions Please take this sheet to every appointment for the next month Discharge Instructions Date of Service May 29, 2017. Admission Reason for Admission: Lower Extremity Edema, Sob Discharge Discharge Diagnosis / Problem: LOWER EXTREMITY EDEMA, CELLULITIS, LOWER EXTREMITY PAIN Discharge Goals Goal(s): Decrease discomfort Activity Recommendations Activity Level: Assistance Required, Bedside Commode Therapies: Physical Therapy, Occupational Therapy . Additional Information Patient informed of condition: Yes Advance Directives: Yes DNR: No Level of Care: Skilled Communicable Disease: No Prognosis: Stable Trujillo Catheter: No Instructions / Follow-Up Instructions / Follow-Up FOLLOWUP WITH FAMILY DOCTOR IN ONE WEEK FOLLOWUP WITH NEPHROLOGY OR IN 2-3 WEEKS. FOLLOWUP WITH INFECTIOUS DISEASE AN WOUND CLINIC IN 1-2 WEEKS. LAB: CBC AND BMP IN ONE WEEK AND FOLLOW RESULTS WITH FAMILY DOCTOR AND NEPHROLOGY. LAB: PT/INR DAILY AND ADJUST COUMADIN DOSING KINDLY CLOSELY FOLLOW BLOOD SUGARS AND ADJUST INSULIN REGIMEN. HOLD COUMADIN TODAY AND RESTART TOMORROW BASED ON LAB: PT/INR. Current Hospital Diet Patient's current hospital diet: Low Sodium Diet (2gm Na), AHA Diet (Heart Healthy) Discharge Diet Recommended Diet: AHA Diet (Heart Healthy), Low Sodium Diet (2gm Na) Pending Studies Studies pending at discharge: no Physician Orders On Transfer Special Precautions: FALL AND ASPIRATION PRECAUTIONS Vital Signs: EVERY 8HRS Laboratory Results Hemoglobin A1c Test 05/17/17 05:31 Range/Units Estimated Average Glucose 169 mg/dl Hemoglobin A1c 7.5 H 4.5-5.6 % Medical Emergencies . Who to Call and When: Medical Emergencies: If at any time you feel your situation is an emergency, please call 911 immediately. . Non-Emergent Contact Non-Emergency issues call your: Primary Care Provider . . "Provider Documentation" section prepared by Patrick Jorge. . Core Measure Problem Core Measures: None <Electronically signed by Patrick Jorge MD>
[2017-05-29] MEDS ORDERED: LCTX PO ×3 (13:42→13:47)
== END 2017-05-29 14:40 | DRG 291 ==
LOC: EDBD 11:24 → C.EDA 11:25 → C.2E 17:24 → EDBEDREQ 17:55 → ENRESERV 18:06 → CANRESERV 05-18 09:14 → ENRESERV 05-18 09:14 → EDBEDREQ 05-18 09:22 → ENRESERV 05-18 09:50 → C.4E 05-18 11:02
PROVIDERS: ADMIT Hospitalist; ATTEND Internal Medicine
DX: I13.0 Hypertensive heart and chronic kidney disease with heart failure and stage 1 through stage 4 chronic kidney disease, or unspecified chronic kidney disease (principal); I50.43 Acute on chronic combined systolic (congestive) and diastolic (congestive) heart failure; N18.4 Chronic kidney disease, stage 4 (severe); L03.90 Cellulitis, unspecified; N17.9 Acute kidney failure, unspecified; I25.10 Atherosclerotic heart disease of native coronary artery without angina pectoris; I48.2 Chronic atrial fibrillation; G89.29 Other chronic pain; G47.33 Obstructive sleep apnea (adult) (pediatric); F41.0 Panic disorder [episodic paroxysmal anxiety]; E78.5 Hyperlipidemia, unspecified; E03.9 Hypothyroidism, unspecified; F32.9 Major depressive disorder, single episode, unspecified; E66.01 Morbid (severe) obesity due to excess calories; D64.9 Anemia, unspecified; E55.9 Vitamin D deficiency, unspecified; Z86.711 Personal history of pulmonary embolism; Z79.4 Long term (current) use of insulin; Z87.891 Personal history of nicotine dependence; Z95.810 Presence of automatic (implantable) cardiac defibrillator; Z90.49 Acquired absence of other specified parts of digestive tract

== ENCOUNTER → 2017-05-30 | Outpatient (CLI) | payer OTHER ==
[~2017-05-30] MED LIST changes: +AMOX500C3 PO; -AMX500 PO; -APIX1TAB3 PO; +ATOR-24 PO; +CIPR-255 PO; -CPR500 PO; +DEXT40GE PO; -DRGTP12 TOP; +DRGTP25 TD; +EFF75 PO; +FLM4 PO; +LCTX PO; -LEVO25TA PO; -LPT40 PO; +LSX80 PO; +MOML PO; -MOMLX PO; -NVLG SQ; +NVLGIPEN SC; +NYSP EXT; -VENL75CA73 PO; +WARF5TAB90 PO
[2017-05-30 11:06] LABS: HEMATOCRIT 28.3 % (42-52); MEAN CELL VOLUME 80.9 fL (80-100); MEAN CORPUSCULAR HEMOGLOBIN 25.1 pg (25-34); MEAN CORPUSCULAR HGB CONC 31.1 g/dl (32-36); MEAN PLATELET VOLUME 10.2 fL (7.4-10.4); PLATELET COUNT 305 K/uL (130-400); PROTHROMBIN TIME (PATIENT) 67.8 SECONDS (9.0-12.0); WHITE BLOOD COUNT 12.09 K/uL (4.8-10.8)
[2017-05-30 11:09] LABS: INR 5.9 (0.9-1.1)
[2017-05-30 11:11] LABS: ALT/SGPT 14 U/L (12-78); AST/SGOT 16 U/L (15-37); BLOOD UREA NITROGEN 117 mg/dl (7-18); BUN/CREATININE RATIO 32.3 (10-20); CALCIUM 8.2 mg/dl (8.5-10.1); CARBON DIOXIDE 27 mmol/L (21-32); CHLORIDE 98 mmol/L (98-107); CREATININE 3.63 mg/dl (0.60-1.40); GLUCOSE 149 mg/dl (70-99); POTASSIUM 3.5 mmol/L (3.5-5.1); SODIUM 136 mmol/L (136-145)
[2017-05-30 11:13] LABS: ALB/GLOB RATIO 0.6 (0.9-2); ALKALINE PHOSPHATASE 151 U/L (45-117)
== END ==
LOC: C.LABUPNIT 10:20
PROVIDERS: ATTEND Nurse Practitioner Family
DX: N18.9 Chronic kidney disease, unspecified (principal); L03.116 Cellulitis of left lower limb; I48.2 Chronic atrial fibrillation

== ENCOUNTER → 2017-05-31 | Outpatient (CLI) | payer OTHER ==
[2017-05-31 09:14] LABS: PROTHROMBIN TIME (PATIENT) 64.3 SECONDS (9.0-12.0)
[2017-05-31 09:43] LABS: INR 5.6 (0.9-1.1)
== END ==
LOC: C.LABUPNIT 08:25
PROVIDERS: ATTEND Nurse Practitioner Family
DX: N18.9 Chronic kidney disease, unspecified (principal)

== ENCOUNTER → 2017-06-01 | Outpatient (CLI) | payer OTHER ==
[~2017-06-01] MED LIST changes: +CMD2 PO; +CMD3 PO; +LEVO25TA PO; +POTA1CAP2 PO; +SENN1TAB86 PO; -SENN8.6T15 PO; +VANC500I IV; +[UNRECOGNIZED DRUG - CODE] IV
[2017-06-01 08:56] LABS: PROTHROMBIN TIME (PATIENT) 45.5 SECONDS (9.0-12.0)
--- NOTE | 2017-06-05 14:34 | CODING QUERY NO DIAGNOSIS ---
TREATMENT RENDERED WITHOUT A DIAGNOSIS To promote full compliance with coding requirements relating to patient care, physician participation is requested in all cases of music arranger uncertainty. Please assist us with providing a diagnosis/symptom for the test(s) below: A diagnosis/symptom was not documented on your Order. A valid diagnosis/symptom is required to bill all insurances. Please remember that we are unable to code a diagnosis of rule out, probable, possible, questionable, or suspected. Tests that require a diagnosis: * PT/INR DIAGNOSIS: Provider Signature: Date: Thank you Betty Montoya [employer] Once completed, please kindly fax back to [phone] For questions please call [phone]
== END ==
LOC: C.LABUPNIT 08:30
PROVIDERS: ATTEND Nurse Practitioner Family
DX: E03.9 Hypothyroidism, unspecified (principal)

== ENCOUNTER → 2017-06-02 | Outpatient (CLI) | payer OTHER ==
[~2017-06-02] MED LIST changes: -CMD2 PO; -CMD3 PO; -LEVO25TA PO; -POTA1CAP2 PO; -SENN1TAB86 PO; +SENN8.6T15 PO; -VANC500I IV; -[UNRECOGNIZED DRUG - CODE] IV
[2017-06-02 08:38] LABS: HEMATOCRIT 25.6 % (42-52); MEAN CORPUSCULAR HEMOGLOBIN 25.3 pg (25-34); MEAN CORPUSCULAR HGB CONC 31.6 g/dl (32-36); MEAN PLATELET VOLUME 10.5 fL (7.4-10.4); PLATELET COUNT 241 K/uL (130-400); WHITE BLOOD COUNT 8.23 K/uL (4.8-10.8)
[2017-06-02 08:45] LABS: ALT/SGPT 15 U/L (12-78); BLOOD UREA NITROGEN 119 mg/dl (7-18); CALCIUM 7.7 mg/dl (8.5-10.1); CARBON DIOXIDE 28 mmol/L (21-32); CHLORIDE 98 mmol/L (98-107); CREATININE 3.41 mg/dl (0.60-1.40); GLUCOSE 147 mg/dl (70-99); SODIUM 135 mmol/L (136-145)
[2017-06-02 08:48] LABS: PROTHROMBIN TIME (PATIENT) 33.5 SECONDS (9.0-12.0)
[2017-06-02 08:56] LABS: ALB/GLOB RATIO 0.6 (0.9-2); ALKALINE PHOSPHATASE 170 U/L (45-117); AST/SGOT 16 U/L (15-37)
== END ==
LOC: C.LABUPNIT 08:28
PROVIDERS: ATTEND Nurse Practitioner Family
DX: N18.9 Chronic kidney disease, unspecified (principal); E03.9 Hypothyroidism, unspecified; I50.9 Heart failure, unspecified

== ENCOUNTER → 2017-06-05 | Outpatient (CLI) | payer OTHER ==
[~2017-06-05] MED LIST changes: +SENN1TAB86 PO; -SENN8.6T15 PO
[2017-06-05 09:28] LABS: BLOOD UREA NITROGEN 107 mg/dl (7-18); BUN/CREATININE RATIO 37.4 (10-20); CALCIUM 8.2 mg/dl (8.5-10.1); CARBON DIOXIDE 29 mmol/L (21-32); CHLORIDE 98 mmol/L (98-107); CREATININE 2.86 mg/dl (0.60-1.40); GLUCOSE 330 mg/dl (70-99); POTASSIUM 3.2 mmol/L (3.5-5.1); SODIUM 136 mmol/L (136-145)
[2017-06-05 09:29] LABS: INR 1.4 (0.9-1.1); PROTHROMBIN TIME (PATIENT) 15.5 SECONDS (9.0-12.0)
[2017-06-05 09:39] LABS: BETA-HYDROXYBUTYRATE 0.94 mg/dL (0.2-2.81)
== END ==
LOC: C.LABUPNIT 09:03
PROVIDERS: ATTEND Nurse Practitioner Family
DX: N18.9 Chronic kidney disease, unspecified (principal)

== ENCOUNTER → 2017-06-07 | Outpatient (CLI) | payer OTHER ==
[2017-06-07 08:03] LABS: MEAN CELL VOLUME 80.5 fL (80-100); MEAN CORPUSCULAR HEMOGLOBIN 25.5 pg (25-34); MEAN CORPUSCULAR HGB CONC 31.6 g/dl (32-36); MEAN PLATELET VOLUME 10.3 fL (7.4-10.4); PLATELET COUNT 288 K/uL (130-400); RED BLOOD COUNT 3.85 M/uL (4.7-6.1); WHITE BLOOD COUNT 12.69 K/uL (4.8-10.8)
[2017-06-07 08:15] LABS: INR 1.5 (0.9-1.1); PROTHROMBIN TIME (PATIENT) 15.9 SECONDS (9.0-12.0)
[2017-06-07 08:22] LABS: BLOOD UREA NITROGEN 97 mg/dl (7-18); BUN/CREATININE RATIO 37.1 (10-20); CALCIUM 8.2 mg/dl (8.5-10.1); CARBON DIOXIDE 30 mmol/L (21-32); CHLORIDE 97 mmol/L (98-107); CREATININE 2.61 mg/dl (0.60-1.40); GLUCOSE 384 mg/dl (70-99); POTASSIUM 3.3 mmol/L (3.5-5.1); SODIUM 136 mmol/L (136-145)
[2017-06-07 08:33] LABS: BETA-HYDROXYBUTYRATE 0.76 mg/dL (0.2-2.81)
== END | disposition home or self-care (01) ==
LOC: C.LABUPNIT 07:52
PROVIDERS: ATTEND Nurse Practitioner Family
DX: N18.9 Chronic kidney disease, unspecified (principal)

== ENCOUNTER → 2017-06-19 | Outpatient (CLI) | payer OTHER ==
[~2017-06-19] MED LIST changes: +CMD3 PO; +LEVO25TA PO; +POTA1CAP2 PO
[2017-06-19 09:04] LABS: INR 2.6 (0.9-1.1); PROTHROMBIN TIME (PATIENT) 29.1 SECONDS (9.0-12.0)
== END ==
LOC: C.LABUPNIT 08:27
PROVIDERS: ATTEND Nurse Practitioner Family
DX: N18.6 End stage renal disease (principal)

== ENCOUNTER → 2017-06-22 | Outpatient (CLI) | payer OTHER ==
[~2017-06-22] MED LIST changes: -CMD3 PO; -LEVO25TA PO; -POTA1CAP2 PO
[2017-06-22 09:47] LABS: POTASSIUM 3.6 mmol/L (3.5-5.1)
[2017-06-22 09:53] LABS: INR 4.6 (0.9-1.1); PROTHROMBIN TIME (PATIENT) 52.9 SECONDS (9.0-12.0)
[2017-06-22 10:02] LABS: CHOLESTEROL/HDL RATIO 2.9
== END ==
LOC: C.LABUPNIT 08:57
PROVIDERS: ATTEND Nurse Practitioner Family
DX: N18.9 Chronic kidney disease, unspecified (principal)

== ENCOUNTER → 2017-06-23 | Outpatient (CLI) | payer OTHER ==
[~2017-06-23] MED LIST changes: +CMD2 PO; +CMD3 PO; +LEVO25TA PO; +POTA1CAP2 PO; +VANC500I IV; +[UNRECOGNIZED DRUG - CODE] IV
[2017-06-23 09:30] LABS: INR 4.8 (0.9-1.1); PROTHROMBIN TIME (PATIENT) 55.4 SECONDS (9.0-12.0)
== END ==
LOC: C.LABUPNIT 09:04
PROVIDERS: ATTEND Nurse Practitioner Family
DX: Z01.89 Encounter for other specified special examinations (principal)

== ENCOUNTER → 2017-06-24 | Outpatient (CLI) | payer OTHER ==
[~2017-06-24] MED LIST changes: +ACET-1311 PO; -ACET-749 PO; +ACET300T3 PO; +AZTR1INJ5 IV; +CMD/25 PO; +CMD4 PO; +EFFSR/75 PO; +FNTTP25 TD; +FRS/40 PO; +LEVO50TA6 PO; +MCTP EXT; +TAMS0.4C38 PO; +VANC1CAP3 IV; +[UNRECOGNIZED DRUG - CODE] IVF
== END ==
LOC: C.LABUPNIT 09:56
PROVIDERS: ATTEND Nurse Practitioner Family
DX: Z01.89 Encounter for other specified special examinations (principal)

== ENCOUNTER → 2017-06-26 | Outpatient (CLI) | payer OTHER ==
[~2017-06-26] MED LIST changes: -ACET-1311 PO; +ACET-749 PO; -ACET300T3 PO; -AZTR1INJ5 IV; -CMD/25 PO; -CMD2 PO; -CMD4 PO; -EFFSR/75 PO; -FNTTP25 TD; -FRS/40 PO; -LEVO50TA6 PO; -MCTP EXT; -TAMS0.4C38 PO; -VANC1CAP3 IV; -VANC500I IV; -[UNRECOGNIZED DRUG - CODE] IV; -[UNRECOGNIZED DRUG - CODE] IVF
[2017-06-26 10:27] LABS: INR 3.1 (0.9-1.1); PROTHROMBIN TIME (PATIENT) 34.6 SECONDS (9.0-12.0)
== END ==
LOC: C.LABUPNIT 09:08
PROVIDERS: ATTEND Nurse Practitioner Family
DX: N18.9 Chronic kidney disease, unspecified (principal)

== ENCOUNTER → 2017-06-28 | Outpatient (CLI) | payer OTHER ==
[2017-06-28 09:12] LABS: BLOOD UREA NITROGEN 75 mg/dl (7-18); BUN/CREATININE RATIO 24.5 (10-20); CARBON DIOXIDE 25 mmol/L (21-32); CHLORIDE 102 mmol/L (98-107); CREATININE 3.06 mg/dl (0.60-1.40); GLUCOSE 139 mg/dl (70-99); INR 2.6 (0.9-1.1); POTASSIUM 4.8 mmol/L (3.5-5.1); PROTHROMBIN TIME (PATIENT) 28.8 SECONDS (9.0-12.0); SODIUM 137 mmol/L (136-145)
[2017-06-28 09:13] LABS: PHOSPHORUS 4.9 mg/dl (2.5-4.9)
== END | disposition home or self-care (01) ==
LOC: C.LABUPNIT 08:40
PROVIDERS: ATTEND Nurse Practitioner Family
DX: N18.9 Chronic kidney disease, unspecified (principal)

== ENCOUNTER 2017-06-30 08:36 | Inpatient (IN) | payer OTHER ==
[~2017-06-30] VITALS: Ht 203.2 cm; Wt 198.3 kg
[~2017-06-30 08:36] MED LIST changes: -CMD3 PO; -LEVO25TA PO; -POTA1CAP2 PO
[2017-06-30 12:15] VITALS: BP 137/92; PULSE 68; TEMP 36.5; O2SAT 95; Ht 203.2 cm; Wt 198.3 kg
--- NOTE | 2017-06-30 12:32 | History and Physical ---
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 Patient is a direct admission from Dr. Tucker with an elevated Cr of 3.06 and a reported 30 pound weight gain since his last clinic visit. This is the patient's fourth admission since March for worsening BLE edema and cellulitis. Was admitted from Apr 04- for BLE cellulitis, treated with vanc and aztreonam. Was admitted again from Apr 22- for fluid overload, BLE cellulitis with wound cultures growing VRE. Was treated with cipro and ampicillin in-patient and then discharged to [facility] on PO Cipro and amoxicillin. During this most recent admission from May 16-, patient's wounds grew pseudomonas, alcaligenes, and enterococcus and was treated with amoxicillin and cipro. Patient endorses an aching pain in lower legs (R>L) with swelling extending to scrotal area. Per chart review, patient has gained 10 pounds since last admission. Receives wound care at [facility]. Denies fever, chills, diaphoresis, palpitations, orthopnea, PND, nausea, vomiting, focal LE weakness. + Chronic numbness in bilateral LE from knees down from a previous spinal surgery. + Chronic decreased visual acuity. Past Medical/Surgical History Medical Problems: (1) CAD (coronary artery disease) Status: Chronic (2) Chronic a-fib Status: Chronic (3) Chronic CHF Permanent Comment: combined systolic and diastolic Status: Chronic (4) Chronic pain Status: Chronic (5) CKD (chronic kidney disease), stage IV Status: Chronic (6) Depression Status: Chronic (7) Diabetes mellitus, type II Status: Chronic (8) Dyslipidemia Status: Chronic (9) H/o sacral fracture Status: Chronic (10) Heart attack Status: Resolved (11) History of pulmonary embolus (PE) Status: Chronic (12) History of stroke Status: Chronic (13) HTN (hypertension) Status: Chronic (14) Idiopathic cardiomyopathy Status: Chronic (15) Ischemic cardiomyopathy Status: Resolved (16) Lymphedema Status: Chronic (17) Obesity, morbid, BMI 40.0-49.9 Status: Chronic (18) Obstructive hydrocephalus Status: Chronic (19) Pulmonary embolism Status: Resolved (20) Right leg DVT Status: Chronic (21) Sleep apnea Permanent Comment: not on CPAP Status: Chronic (22) Venous insufficiency Status: Chronic Surgical Problems: (1) H/O eye surgery Status: Chronic (2) History of brain shunt Status: Chronic (3) History of cholecystectomy Permanent Comment: 08/23/16 Status: Resolved (4) S/p pacemaker defibrillator Status: Chronic (5) S/P spinal surgery Status: Chronic (6) S/p vein filter Status: Chronic Family History FH: CAD (coronary artery disease) FATHER ( of [place] late 60's) Social History Smoking Status: Never Smoker Drug Use: none Marital Status: Housing status: assisted living, other Occupational Status: retired Immunizations History of Influenza Vaccine: Unknown Multi-Drug Resistant 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 Allergies Coded Allergies: Cephalosporins (Verified Allergy, Unknown, increased HR vs sick to stomach , pt unsure abx allergy to?, 05/05/17) Clindamycin (Verified Allergy, Unknown, increased HR vs sick to stomach, pt unsure abx allergy to?, 05/05/17) Iodinated Diagnostic Agents (Verified Allergy, Unknown, unknown, 04/04/17) Penicillins (Unverified Allergy, Unknown, increased HR vs sick to stomach , pt unsure abx allergy to?, 05/05/17) Perflutren (Verified Allergy, Unknown, PERFLUTREN LIPID MICROSPHERES, 04/04) Home Medications Scheduled Atorvastatin (Lipitor), 80 MG PO HS Carvedilol (Coreg), 25 MG PO BID Esomeprazole Magnesium (Nexium), 40 MG PO DAILY Fentanyl (Fentanyl), 25 MCG TD Q72H Furosemide (Furosemide), 80 MG PO BID17 Insulin Aspart (Novolog Flexpen), 0 UNITS SC ACHS Insulin Detemir (Levemir), 15 UNITS SQ BID Lactobacillus Acidophilus (Lactinex), 2 TAB PO BID Levothyroxine Sodium (Synthroid), 25 MCG PO DAILY Loratadine (Claritin), 10 MG PO DAILY Melatonin (Melatonin), 10 MG PO HS Multiple Vitamins W/ Minerals (Theragran-M), 1 TAB PO QAM Nystatin (Nystop), 1 APPLN EXT DAILY Polyethylene Glycol 3350 (Miralax), 17 GM PO DAILY Potassium Chloride (Potassium Chloride Er), 1 CAP PO DAILY Pregabalin (Lyrica), 75 MG PO BID Sennosides-Docusate Sodium (Sennalax-S), 2 TABS PO HS Tamsulosin HCl (Tamsulosin HCl), 0.4 MG PO HS Trazodone Hcl (Trazodone), 50 MG PO HS Ursodiol (Ursodiol), 300 MG PO BID Venlafaxine Hcl (Effexor), 75 MG PO QAM Warfarin Sod (Coumadin), 1 TAB PO DAILY Scheduled PRN Acetaminophen (Tylenol), 500 MG PO Q4 PRN for Pain or Fever Acetaminophen/Codeine (Tylenol W/Codeine #3), 1 TAB PO Q6H PRN for Pain Albuterol Hfa (Ventolin Hfa), 2 PUFFS INH Q6H PRN for Wheezing Bisacodyl (Dulcolax), 1 SUPP AL Q24H PRN for no bm past 2 days Dextrose (Diabetic Use) (Insta-Glucose), 1 APPLN PO UD PRN for HYPOGLYCEMIA PROTOCOL Hydroxyzine Hcl (Atarax), 25 MG PO QID PRN for Itching Magnesium Hydroxide (Milk Of Magnesia), 30 ML PO UD PRN for Constipation Nitroglycerin (Nitrostat), 0.4 MG UT UD PRN for Chest Pain Ondansetron Hcl (Zofran), 4-8 MG PO Q8 PRN for Nausea Miscellaneous Medications Glucagon (Glucagon Emergency Kit) Review of Systems Ten systems reviewed and negative except as noted in the HPI. Physical Exam General Appearance: WD/WN, no apparent distress (Sleepy but cooperative ), + obese Head: normocephalic, atraumatic Eyes: normal inspection, PERRL, sclerae normal ENT: normal ENT inspection, hearing grossly normal, pharynx normal (moist mucous membranes ) Neck: supple, thyroid normal, trachea midline Respiratory/Chest: chest non-tender, lungs clear, normal breath sounds, no respiratory distress, no accessory muscle use Cardiovascular: regular rate, rhythm, no murmur, normal peripheral pulses Abdomen/GI: normal bowel sounds, non tender, soft, no organomegaly Extremities/Musculoskelatal: + pertinent finding (Significant edema to thigh bilaterally. RLE > LLE. Skin hypertrophied any discolored from venous stasis. Presence of wounds in various healing stages on bilat. LE with yellow sloughing tissue. Toenails yellowed; 1st R toenail bed without nail. 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 Overall, no significant change compared the prior study. 2. Severe subcutaneous edema and skin thickening throughout the visualized right lower leg and foot. This favors diffuse edema or a cellulitis. No soft tissue gas identified. 3. No bony destruction to suggest osteomyelitis at this time. 4. Diffuse osteopenia and complete fatty atrophy of the visualized muscles of the right lower extremity are again noted. 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 Bilateral lower extremity swelling: -Multifactorial with h/o lymphedema, CHF, CKD, dietary non-compliance -10 pound weight gain since last discharged on 05/29 -Per nephro recs, initiated IV lasix 80 BID with albumin Severe BLE cellulitis: -H/o chronic LE cellulitis with antibiotic resistance, RLE > LLE -Grew pseudomonas, alcaligenes, and enterococcus on last admission -History of VRE -Treated with ampicillin and cipro -Afebrile, no leukocytosis -General surgery consulted: -No evidence of abscess formation, drainable fluid collection, or necrotizing fascitis on CT of lower extremity -No acute general surgical intervention required -Given the extent of edema, cellulitis and now evidence of patchy gangrenous tissue of the Right foot and toes would recommend orthopaedic and vascular surgery consult for possible right lower extremity amputation -Infectious disease consulted: -Given multiple resistant organisms documented in the past, recommend combination of daptomycin and imipenem. Recommend vascular surgery consultation. -Vascular surgery consulted: No vascular intervention at this time. Will see patient on Monday. -Ortho consulted Chronic systolic/diastolic HF: -Denies CP, SOB -CXR pending -10 lb wt gain since last admission, mainly in legs -Receiving 80mg IV Lasix BID with albumin -Mar 2017 echo with EF of 55-60%, mild concentric LVH, left atrium severely dilated -Na restricted diet, daily weights, I&Os DM II: -Hgb a1c of 7.7 in May 2017 -Glycemic consult placed -BG checks AC HS Chronic A Fib: -Continue home dose of coumadin -INR slightly elevated at 3.3 but will continue coumadin in the setting of chronic DVT -Recheck INR in AM and assess -Coreg for rate control BART on CKD Stage IV: -Baseline GFR ~30, Cr 2.4 -Today GFR of 23.5, Cr 2.85 -Monitor for worsening renal function while on IV diuretic -Consult nephrology H/o R DVT/PE: -S/p IVC filter -Cont coumadin HTN: -Stable -Continue home meds Hypothyroidism: -TSH elevated to 6.3 -Check T4 -Continue levothyroxine DVT Ppx: Coumadin Code status: FULL PCP: Damián Dispo: SW consulted to help with discharge placement back to [facility] Dr. Mason, Attending Physician Addendum: I have seen and examined the patient with SILVIA Olmstead and agree with the assessment and plan and would like to comment: This is a 56 year old Patient with recurrent hospitalizations with recent hospitalization in March, April, May in 2016 generally for chronic lower extremity swelling secondary to fluid overload from high salt intake and chronic kidney disease and minimal ambulation. 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 Patients right lower extremity with known history of DVT for which patient has been on coumadin is significantly worse in appearance compared to last hospital presentation in May 2017 as now the skin is very erythematous and raw looking in appearance. Patients lower extremities has had prior wound cultures of VRE and more recently in May 2017 with Pseudomonas, Alcaligenes, and Enterococcus for which patient was discharged on ciprofloxacin and amoxicillin . I am concerned about further leg complications on this hospital admission and requested CT lower extremity without contrast, general surgery and orthopedic consultation and vascular surgery to evaluate the right leg, pulse dopplers of lower extremities, wound care consultation blood cultures, infectious disease consultation, and pharmacy consult for hyperglycemic control for history of diabetes on insulin to further assist in the inpatient evaluation. Will follow nephology service recommendations on IV Lasix. Will need daily weights. Will monitor patient on telemetry for now. EKG and chest x ray ordered. Patient has history of pacemaker and IVC filter. INR on admission mildly elevated 3.4 with ideal target INR 2 to 3. Patient also have iron deficiency anemia, and vitamin D deficiency. History of urinary retention requiring trujillo on last hospital admission but patient reports urination improved after discharge and no longer on trujillo. History of Hypothyroidism on Levothyroxine with TSH of 6 Check T4 levels and may need thyroid medication adjustments CT lower extremity as below 1. Overall, no significant change compared the prior study. 2. Severe subcutaneous edema and skin thickening throughout the visualized right lower leg and foot. This favors diffuse edema or a cellulitis. No soft tissue gas identified. 3. No bony destruction to suggest osteomyelitis at this time. 4. Diffuse osteopenia and complete fatty atrophy of the visualized muscles of the right lower extremity are again noted. General Surgery consultation recommended othropedics to discuss with patient about possible amputation because of recurrent leg complications but amputation is not urgent Infectious disease consult recommend combination of daptomycin and imipenem Have discussed with Vascular surgery Dr. Roy about patients leg. Vascular surgery will follow but no acute vascular interventions for now Level of Care Telemetry Resuscitation Status FULL RESUSCITATION VTE Prophylaxis VTE Risk Assessment Done? Y/N: Yes Risk Level: Moderate Given or contraindicated: Warfarin (Coumadin) Social Service Consult Lives in [place]
[2017-06-30 13:01] LABS: BASO % 0.2 %; BASO ABS # 0.02 K/uL (0-0.2); EOS % 6.1 %; IG% 0.4 %; LYMPH % 15.7 %; LYMPH ABS # 1.31 K/uL (1.2-3.4); MEAN CELL VOLUME 82.8 fL (80-100); MEAN CORPUSCULAR HEMOGLOBIN 25.7 pg (25-34); MEAN PLATELET VOLUME 9.4 fL (7.4-10.4); MONO % 7.8 %; NEUT % 69.8 %; PLATELET COUNT 210 K/uL (130-400); RED BLOOD COUNT 3.38 M/uL (4.7-6.1); WHITE BLOOD COUNT 8.34 K/uL (4.8-10.8)
[2017-06-30 13:09] LABS: INR 3.4 (0.9-1.1); PROTHROMBIN TIME (PATIENT) 38.1 SECONDS (9.0-12.0)
[2017-06-30 13:28] LABS: ALB/GLOB RATIO 0.4 (0.9-2); BUN/CREATININE RATIO 28.3 (10-20); CREATININE 2.85 mg/dl (0.60-1.40); POTASSIUM 4.3 mmol/L (3.5-5.1)
[2017-06-30 13:29] LABS: MEAN CORPUSCULAR HGB CONC 31.1 g/dl (32-36)
[2017-06-30 14:05] LABS: ANISOCYTOSIS PRESENT; COMPLETE YES; HYPERSEGMENTED POLYS 1+; HYPOCHROMIA PRESENT
--- NOTE | 2017-06-30 14:17 | DIAGNOSTIC IMAGING REPORT ---
RIGHT LOWER LEG CT CT DOSE: 1716.60 mGy.cm HISTORY: Right lower leg swelling. rule out compartment compartment syndrome,fasicitis,gas,abscess TECHNIQUE: Multiaxial CT images of the right lower leg were performed and reformatted in the sagittal and coronal plane without the use of contrast. A dose lowering technique was utilized adhering to the principles of ALARA. COMPARISON: Right lower leg CT 05/25/2017. FINDINGS: There is severe subcutaneous edema and skin thickening throughout the visualized right lower leg and foot. This is not significantly change compared to the prior study. There is no soft tissue gas identified at this time. Evaluation for an abscess is limited due to the lack of intravenous contrast. However, no loculated fluid collections identified. There is complete fatty atrophy of the visualized muscles of the right lower extremity. Small right knee effusion. No edema or fat stranding within the muscular compartments to suggest a fasciitis or myositis. Cortical thickening at the bases of the third and fourth metatarsals remains unchanged and may be due to an old fracture. There is also mild periosteal thickening at the mid to distal fibula which could be due to the chronic stasis. No acute fracture or dislocation within the visualized osseous structures. No bony destruction to suggest osteomyelitis at this time. Plantar heel spur. IMPRESSION: 1. Overall, no significant change compared the prior study. 2. Severe subcutaneous edema and skin thickening throughout the visualized right lower leg and foot. This favors diffuse edema or a cellulitis. No soft tissue gas identified. 3. No bony destruction to suggest osteomyelitis at this time. 4. Diffuse osteopenia and complete fatty atrophy of the visualized muscles of the right lower extremity are again noted. Electronically signed by: Kike Shelton M.D. 06/30/2017 2:16 PM Dictated Date/Time: 06/30/2017 2:07 PM
[2017-06-30] MEDS ORDERED: GLUCOSE 40% GEL 15 GM TUBE PO PRN (14:30)
[2017-06-30] MEDS ORDERED: GLUCAGON FOR INJ 1 MG VIAL SQ PRN (14:30)
[2017-06-30] MEDS ORDERED: DEXTROSE 50% 50 ML SYR IV PRN (14:30)
[2017-06-30] MEDS ORDERED: GLUCOSE 10 TABS/TUBE PO PRN (14:30)
[2017-06-30] MEDS ORDERED: PHARMACY GLYCEMIC MGMT CONSULT PRN (14:43)
--- NOTE | 2017-06-30 14:50 | Surgery Consultation ---
Consultation Date of Consultation: Jun 30, 2017. Attending Physician: Tonny Mason M.D. 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 Our services were consulted for chronic bilateral lower extremity edema, cellulitis, and chronic wounds. He had a CT scan on last admission on 05/25/2017 which showed severe right lower extremity edema vs cellulitis with no evidence of subcutaneous gas or abscess collection. He had since had a repeat CT scan which shows no change since previous and again no evidence of necrotizing fascitis, abscess, or osteomyelitis. This is the patient's fourth admission since March for worsening BLE edema and cellulitis. Was admitted from Apr 04- for BLE cellulitis, treated with vanc and aztreonam. Was admitted again from Apr 22- for fluid overload, BLE cellulitis with wound cultures growing VRE. Was treated with cipro and ampicillin in-patient and then discharged to [facility] on PO Cipro and amoxicillin. During this most recent admission from May 16-, patient's wounds grew pseudomonas, alcaligenes, and enterococcus and was treated with amoxicillin and cipro. Has been seen by wound care and vascular surgery in the past. No history obtained as patient going in and out of sleep during examination. Does not give a history (Betty Reilly PA-C) Past Medical/Surgical History Medical Problems: (1) CAD (coronary artery disease) Status: Chronic (2) Chronic a-fib Status: Chronic (3) Chronic CHF Permanent Comment: combined systolic and diastolic Status: Chronic (4) Chronic pain Status: Chronic (5) CKD (chronic kidney disease), stage IV Status: Chronic (6) Depression Status: Chronic (7) Diabetes mellitus, type II Status: Chronic (8) Dyslipidemia Status: Chronic (9) H/o sacral fracture Status: Chronic (10) Heart attack Status: Resolved (11) History of pulmonary embolus (PE) Status: Chronic (12) History of stroke Status: Chronic (13) HTN (hypertension) Status: Chronic (14) Idiopathic cardiomyopathy Status: Chronic (15) Ischemic cardiomyopathy Status: Resolved (16) Lymphedema Status: Chronic (17) Obesity, morbid, BMI 40.0-49.9 Status: Chronic (18) Obstructive hydrocephalus Status: Chronic (19) Pulmonary embolism Status: Resolved (20) Right leg DVT Status: Chronic (21) Sleep apnea Permanent Comment: not on CPAP Status: Chronic (22) Venous insufficiency Status: Chronic Surgical History: (1) H/O eye surgery Status: Chronic (2) History of brain shunt Status: Chronic (3) History of cholecystectomy Permanent Comment: 08/23/16 Status: Resolved (4) S/p pacemaker defibrillator Status: Chronic (5) S/P spinal surgery Status: Chronic (6) S/p vein filter Status: Chronic (Betty Reilly PA-C) Family History FH: CAD (coronary artery disease) FATHER ( of [place] late 60's) (Betty Reilly PA-C) FH: CAD (coronary artery disease) FATHER ( of [place] late 60's) (Cherry Bhakta MD) Social History Smoking Status: Never Smoker Drug Use: none Marital Status: Housing Status: unknown Occupation Status: retired (Betty Reilly PA-C) Allergies Coded Allergies: Cephalosporins (Verified Allergy, Unknown, increased HR vs sick to stomach , pt unsure abx allergy to?, 05/05/17) Clindamycin (Verified Allergy, Unknown, increased HR vs sick to stomach, pt unsure abx allergy to?, 05/05/17) Iodinated Diagnostic Agents (Verified Allergy, Unknown, unknown, 04/04/17) Penicillins (Unverified Allergy, Unknown, increased HR vs sick to stomach , pt unsure abx allergy to?, 05/05/17) Perflutren (Verified Allergy, Unknown, PERFLUTREN LIPID MICROSPHERES, 04/04) Home Medications Scheduled Amoxicillin (Amoxil), 500 MG PO TID Atorvastatin (Lipitor), 80 MG PO HS Carvedilol (Coreg), 25 MG PO BID Ciprofloxacin Hcl (Cipro), 500 MG PO BID Esomeprazole Magnesium (Nexium), 40 MG PO DAILY Fentanyl (Fentanyl), 25 MCG TD Q72H Furosemide (Furosemide), 80 MG PO BID17 Insulin Aspart (Novolog Flexpen), 0 UNITS SC ACHS Insulin Detemir (Levemir), 15 UNITS SQ BID Lactobacillus Acidophilus (Lactinex), 2 TAB PO BID Loratadine (Claritin), 10 MG PO DAILY Melatonin (Melatonin), 10 MG PO HS Multiple Vitamins W/ Minerals (Theragran-M), 1 TAB PO QAM Nystatin (Nystop), 1 APPLN EXT DAILY Polyethylene Glycol 3350 (Miralax), 17 GM PO DAILY Pregabalin (Lyrica), 75 MG PO BID Sennosides-Docusate Sodium (Sennalax-S), 2 TABS PO HS Tamsulosin HCl (Tamsulosin HCl), 0.4 MG PO HS Trazodone Hcl (Trazodone), 50 MG PO HS Ursodiol (Ursodiol), 300 MG PO BID Venlafaxine Hcl (Effexor), 75 MG PO QAM Warfarin Sodium (Coumadin), 5 MG PO DAILY Scheduled PRN Acetaminophen (Tylenol), 500 MG PO Q4 PRN for Pain or Fever Acetaminophen/Codeine (Tylenol W/Codeine #3), 1 TAB PO Q6H PRN for Pain Albuterol Hfa (Ventolin Hfa), 2 PUFFS INH Q6H PRN for Wheezing Bisacodyl (Dulcolax), 1 SUPP NC Q24H PRN for no bm past 2 days Dextrose (Diabetic Use) (Insta-Glucose), 1 APPLN PO UD PRN for HYPOGLYCEMIA PROTOCOL Hydroxyzine Hcl (Atarax), 25 MG PO QID PRN for Itching Magnesium Hydroxide (Milk Of Magnesia), 30 ML PO UD PRN for Constipation Nitroglycerin (Nitrostat), 0.4 MG UT UD PRN for Chest Pain Ondansetron Hcl (Zofran), 4-8 MG PO Q8 PRN for Nausea Miscellaneous Medications Glucagon (Glucagon Emergency Kit) Current Inpatient Medications Current Inpatient Medications Medications (Trade) Dose Ordered Sig/Miguel Route Start Time Stop Time Status Last Admin Dose Admin Furosemide 80 mg/ Albumin Human 58 ml @ 54 mls/hr BID@0900,2100 IV 06/30/17 21:00 07/03/17 20:59 Influenza Virus Vaccine Quadrival (Flucelvax Quad Vaccine) 0.5 ml ONCE ONCE IM. 06/30/17 18:00 06/30/17 18:01 Glucose (Glucose 40% Gel) 15-30 GRAMS 15 GRAMS... UD PRN PO 06/30/17 14:30 07/30/17 14:29 UNV Glucose (Glucose Chew Tab) 4-8 Tablets 4 Tabl... UD PRN PO 06/30/17 14:30 07/30/17 14:29 UNV Dextrose (Dextrose 50% 50ML Syringe) 25-50ML OF 50% DW IV FOR... UD PRN IV 06/30/17 14:30 07/30/17 14:29 UNV Glucagon (Glucagon Inj) 1 mg UD PRN SQ 06/30/17 14:30 07/30/17 14:29 UNV Miscellaneous Information (Consult Glycemic Management Pharmacy) 1 ea NOW STAT N/A 06/30/17 14:26 06/30/17 14:27 UNV (Betty Reilly, SILVIA-C) Review of Systems Patient sleeping on encounter and does not give much of a history. Most of history obtained from previous hospital medical records. (Betty Reilly PA-C) Physical Exam Date Time Temp Pulse Resp B/P (MAP) Pulse Ox O2 Delivery O2 Flow Rate FiO2 06/30/17 12:15 36.5 68 20 137/92 95 Room Air General Appearance: no apparent distress, + obese Head: normocephalic, atraumatic Respiratory/Chest: no respiratory distress, no accessory muscle use Extremities/Musculoskelatal: + inflammation, + pedal edema, + swelling, + pertinent finding (RLE with severe pitting edema to level of the upper thigh with erythema and warm to touch. Areas of patchy gangrene of the right anterior foot and toes. Chronic seeping wounds. No evidence of abscess formation. LLE with edema to the level of the knee with an effusion of the knee , Patchy gangrenous areas of the left foot, not as severe as the RLE.) Neurologic/Psych: alert (Betty Reilly PA-C) Laboratory Results Last 24 Hours Test 06/30/17 12:31 11/17/17 14:20 White Blood Count 8.34 K/uL Red Blood Count 3.38 M/uL Hemoglobin 8.7 g/dL Hematocrit 28.0 % Mean Corpuscular Volume 82.8 fL Mean Corpuscular Hemoglobin 25.7 pg Mean Corpuscular Hemoglobin Concent 31.1 g/dl Platelet Count 210 K/uL Mean Platelet Volume 9.4 fL Neutrophils (%) (Auto) 69.8 % Lymphocytes (%) (Auto) 15.7 % Monocytes (%) (Auto) 7.8 % Eosinophils (%) (Auto) 6.1 % Basophils (%) (Auto) 0.2 % Neutrophils # (Auto) 5.82 K/uL Lymphocytes # (Auto) 1.31 K/uL Monocytes # (Auto) 0.65 K/uL Eosinophils # (Auto) 0.51 K/uL Basophils # (Auto) 0.02 K/uL RDW Standard Deviation 59.1 fL RDW Coefficient of Variation 19.8 % Immature Granulocyte % (Auto) 0.4 % Immature Granulocyte # (Auto) 0.03 K/uL Hypersegmented Polys 1+ Hypochromasia PRESENT Anisocytosis PRESENT Prothrombin Time 38.1 SECONDS Prothromb Time International Ratio 3.4 Sodium Level 137 mmol/L Potassium Level 4.3 mmol/L Chloride Level 103 mmol/L Carbon Dioxide Level 23 mmol/L Anion Gap 11.0 mmol/L Blood Urea Nitrogen 81 mg/dl Creatinine 2.85 mg/dl Est Creatinine Clear Calc Drug Dose 55.4 ml/min Estimated GFR () 27.2 Estimated GFR (Non- 23.4 BUN/Creatinine Ratio 28.3 Random Glucose 197 mg/dl Calcium Level 8.0 mg/dl Total Bilirubin 0.4 mg/dl Aspartate Amino Transf (AST/SGOT) 13 U/L Alanine Aminotransferase (ALT/SGPT) 12 U/L Alkaline Phosphatase 212 U/L Total Protein 7.5 gm/dl Albumin 2.2 gm/dl Globulin 5.3 gm/dl Albumin/Globulin Ratio 0.[address] DOSE: 1716.60 mGy.cm HISTORY: Right lower leg swelling. rule out compartment compartment syndrome,fasicitis,gas,abscess TECHNIQUE: Multiaxial CT images of the right lower leg were performed and reformatted in the sagittal and coronal plane without the use of contrast. A dose lowering technique was utilized adhering to the principles of ALARA. COMPARISON: Right lower leg CT 05/25/2017. FINDINGS: There is severe subcutaneous edema and skin thickening throughout the visualized right lower leg and foot. This is not significantly change compared to the prior study. There is no soft tissue gas identified at this time. Evaluation for an abscess is limited due to the lack of intravenous contrast. However, no loculated fluid collections identified. There is complete fatty atrophy of the visualized muscles of the right lower extremity. Small right knee effusion. No edema or fat stranding within the muscular compartments to suggest a fasciitis or myositis. Cortical thickening at the bases of the third and fourth metatarsals remains unchanged and may be due to an old fracture. There is also mild periosteal thickening at the mid to distal fibula which could be due to the chronic stasis. No acute fracture or dislocation within the visualized osseous structures. No bony destruction to suggest osteomyelitis at this time. Plantar heel spur. IMPRESSION: 1. Overall, no significant change compared the prior study. 2. Severe subcutaneous edema and skin thickening throughout the visualized right lower leg and foot. This favors diffuse edema or a cellulitis. No soft tissue gas identified. 3. No bony destruction to suggest osteomyelitis at this time. 4. Diffuse osteopenia and complete fatty atrophy of the visualized muscles of the right lower extremity are again noted. 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 Continue current medical management and wound care Our services signing off at this time, thank you for consultation Dr. Bhakta has seen and examined patient, agrees with above. (Betty Reilly ., PA-C) Pt seen and examined with SILVIA [place]. Agree with the assessment and plan as above. 56 yr man with BMI 48, multiple medical comorbidities and refractory, progressive right lower extremity cellulitis with underlying venous insufficiency and profound edema. Right leg is warm to mid thigh, erythematous, foul smelling, edematous, open weeping wounds with scattered areas of small gangrenous changes (worst on foot). Left leg also manifests edema and skin breakdown/ weeping over tamayo but no sign of cellulitis. CT reviewed - no drainable fluid, no evidence of necrotizing fascitis, no osteomyelitis. He has refractory profound cellulitis complicated by multiple medical allergies and is compliance with treatment. While there is no urgency ( no evidence of sepsis), I think he may end up requiring an amputation on the right side. It is reasonable to try local wound care and detention IV abx, leg elevation first. I would recommend ortho consult for discussion of option of amputation. ID consult for antibiotic management given his multiple allergies. Will sign off. Discussed personally with Dr. Mason. Of note, pt was not interested in discussion of options (kept closing his eyes). (Cherry Bhakta MD)
--- NOTE | 2017-06-30 15:03 | Medical Consult ---
Consultation Date of Consultation: Jun 30, 2017. Attending Physician: Tonny Mason M.D. Reason for Consultation: BLE cellulitis History of Present Illness 56-year-old male well known to me from previous hospitalizations, with history of chronic kidney disease, chronic lower extremity edema, and recurrent cellulitis, treated for cellulitis of leg ulcerations with positive cultures for Pseudomonas, Enterobacter, Enterococcus, and Alcaligenes. He was treated with IV and oral antibiotics, but now returns with progressive weight gain, leg swelling, and worsening erythema especially of his right leg and foot. Denies any significant fevers. CT scan of the right leg and foot, read by me, shows evidence of cellulitis and chronic skin changes, but no obvious drainable collection or osteomyelitis. Patient currently being treated with daptomycin and imipenem. Cultures are pending. Past Medical/Surgical History Medical Problems: (1) Altered mental status Status: Acute (2) Anemia Status: Acute (3) Anemia Status: Acute (4) Cellulitis Status: Acute (5) Cellulitis Status: Acute (6) CHF (congestive heart failure) Status: Acute (7) Confusion Status: Acute (8) Deep vein thrombosis Status: Acute (9) Hypoglycemia Status: Acute (10) Hypoxia Status: Acute (11) Shortness of breath Status: Acute (12) Vitreous hemorrhage Status: Acute Social History Problems: (1) DVT (deep venous thrombosis) Status: Acute Medical Problems: (1) CAD (coronary artery disease) (2) Chronic a-fib (3) Chronic CHF (4) Chronic pain (5) CKD (chronic kidney disease), stage IV (6) Depression (7) Diabetes mellitus, type II (8) Dyslipidemia (9) H/o sacral fracture (10) Heart attack (11) History of pulmonary embolus (PE) (12) History of stroke (13) HTN (hypertension) (14) Idiopathic cardiomyopathy (15) Ischemic cardiomyopathy (16) Lymphedema (17) Obesity, morbid, BMI 40.0-49.9 (18) Obstructive hydrocephalus (19) Pulmonary embolism (20) Right leg DVT (21) Sleep apnea (22) Venous insufficiency Surgical Problems: (1) H/O eye surgery (2) History of brain shunt (3) History of cholecystectomy (4) S/p pacemaker defibrillator (5) S/P spinal surgery (6) S/p vein filter Family History FH: CAD (coronary artery disease) FATHER ( of [place] late 60's) Social History Smoking Status: Never Smoker Drug Use: none Marital Status: Housing Status: unknown Occupation Status: retired Allergies Coded Allergies: Cephalosporins (Verified Allergy, Unknown, increased HR vs sick to stomach , pt unsure abx allergy to?, 05/05/17) Clindamycin (Verified Allergy, Unknown, increased HR vs sick to stomach, pt unsure abx allergy to?, 05/05/17) Iodinated Diagnostic Agents (Verified Allergy, Unknown, unknown, 04/04/17) Penicillins (Unverified Allergy, Unknown, increased HR vs sick to stomach , pt unsure abx allergy to?, 05/05/17) Perflutren (Verified Allergy, Unknown, PERFLUTREN LIPID MICROSPHERES, 04/04) Current Inpatient Medications Current Inpatient Medications Medications (Trade) Dose Ordered Sig/Miguel Route Start Time Stop Time Status Last Admin Dose Admin Furosemide 80 mg/ Albumin Human 58 ml @ 54 mls/hr BID@0900,2100 IV 06/30/17 21:00 07/03/17 20:59 Influenza Virus Vaccine Quadrival (Flucelvax Quad Vaccine) 0.5 ml ONCE ONCE IM. 06/30/17 18:00 06/30/17 18:01 Glucose (Glucose 40% Gel) 15-30 GRAMS 15 GRAMS... UD PRN PO 06/30/17 14:30 07/30/17 14:29 Glucose (Glucose Chew Tab) 4-8 Tablets 4 Tabl... UD PRN PO 06/30/17 14:30 07/30/17 14:29 Dextrose (Dextrose 50% 50ML Syringe) 25-50ML OF 50% DW IV FOR... UD PRN IV 06/30/17 14:30 07/30/17 14:29 Glucagon (Glucagon Inj) 1 mg UD PRN SQ 06/30/17 14:30 07/30/17 14:29 Miscellaneous Information (Consult Glycemic Management Pharmacy) 1 ea UD PRN N/A 06/30/17 14:43 07/30/17 14:42 Insulin Aspart (novoLOG ASPART) SLIDING SCALE ACHS SC 06/30/17 16:15 07/30/17 16:14 Insulin Detemir (Levemir Flexpen/ FlexTouch) 10 units BID SC 06/30/17 21:00 07/30/17 20:59 Review of Systems All systems were reviewed and are negative except as per HPI Physical Exam Date Time Temp Pulse Resp B/P (MAP) Pulse Ox O2 Delivery O2 Flow Rate FiO2 06/30/17 12:15 36.5 68 20 137/92 95 Room Air General Appearance: WD/WN, no apparent distress Head: normocephalic, atraumatic Eyes: normal inspection, EOMI, sclerae normal ENT: normal ENT inspection, hearing grossly normal, pharynx normal Neck: supple, no adenopathy, thyroid normal, trachea midline Respiratory/Chest: chest non-tender, lungs clear, normal breath sounds, no respiratory distress Cardiovascular: regular rate, rhythm, no gallop, no murmur Abdomen/GI: normal bowel sounds, non tender, soft, no organomegaly Back: normal inspection, no CVA tenderness Extremities/Musculoskelatal: + inflammation, + slow capillary refill, + swelling Neurologic/Psych: alert, oriented x 3 Skin: normal color, no rash, + pertinent finding (Bilateral lower extremity cellulitis with early gangrenous changes right foot, few areas of gangrene left foot) Laboratory Results Date/Time Source Procedure Growth Status 06/30/17 12:40 Blood Blood Culture Pending Received 06/30/17 12:31 Blood Blood Culture Pending Received 06/30/17 11:55 Nasal MRSA DNA Surveillance Screen - Final Specimen Positive for MRSA by DNA Probe Complete Last 24 Hours Test 06/30/17 12:31 White Blood Count 8.34 K/uL Red Blood Count 3.38 M/uL Hemoglobin 8.7 g/dL Hematocrit 28.0 % Mean Corpuscular Volume 82.8 fL Mean Corpuscular Hemoglobin 25.7 pg Mean Corpuscular Hemoglobin Concent 31.1 g/dl Platelet Count 210 K/uL Mean Platelet Volume 9.4 fL Neutrophils (%) (Auto) 69.8 % Lymphocytes (%) (Auto) 15.7 % Monocytes (%) (Auto) 7.8 % Eosinophils (%) (Auto) 6.1 % Basophils (%) (Auto) 0.2 % Neutrophils # (Auto) 5.82 K/uL Lymphocytes # (Auto) 1.31 K/uL Monocytes # (Auto) 0.65 K/uL Eosinophils # (Auto) 0.51 K/uL Basophils # (Auto) 0.02 K/uL RDW Standard Deviation 59.1 fL RDW Coefficient of Variation 19.8 % Immature Granulocyte % (Auto) 0.4 % Immature Granulocyte # (Auto) 0.03 K/uL Hypersegmented Polys 1+ Hypochromasia PRESENT Anisocytosis PRESENT Prothrombin Time 38.1 SECONDS Prothromb Time International Ratio 3.4 Sodium Level 137 mmol/L Potassium Level 4.3 mmol/L Chloride Level 103 mmol/L Carbon Dioxide Level 23 mmol/L Anion Gap 11.0 mmol/L Blood Urea Nitrogen 81 mg/dl Creatinine 2.85 mg/dl Est Creatinine Clear Calc Drug Dose 55.4 ml/min Estimated GFR () 27.2 Estimated GFR (Non- 23.4 BUN/Creatinine Ratio 28.3 Random Glucose 197 mg/dl Calcium Level 8.0 mg/dl Total Bilirubin 0.4 mg/dl Aspartate Amino Transf (AST/SGOT) 13 U/L Alanine Aminotransferase (ALT/SGPT) 12 U/L Alkaline Phosphatase 212 U/L Total Protein 7.5 gm/dl Albumin 2.2 gm/dl Globulin 5.3 gm/dl Albumin/Globulin Ratio 0.4 Patient Name: MARICEL BILLY Unit Number: [id number] Dictated: 06/30/171406 Transcribed: 06/30/171406 [employer] Printed Date/Time: [~ rep prt dt]/[~ rep prt tm] [~ rep ct labl] - [~ rep ct ivnm] [facility] [place] [address] Dictated: 06/30/171406 Transcribed: 06/30/171406 [employer] Printed Date/Time: [~ rep prt dt]/[~ rep prt tm] [~ rep ct labl] - [~ rep ct ivnm] RIGHT LOWER LEG CT CT DOSE: 1716.60 mGy.cm HISTORY: Right lower leg swelling. rule out compartment compartment syndrome,fasicitis,gas,abscess TECHNIQUE: Multiaxial CT images of the right lower leg were performed and reformatted in the sagittal and coronal plane without the use of contrast. A dose lowering technique was utilized adhering to the principles of ALARA. COMPARISON: Right lower leg CT 05/25/2017. FINDINGS: There is severe subcutaneous edema and skin thickening throughout the visualized right lower leg and foot. This is not significantly change compared to the prior study. There is no soft tissue gas identified at this time. Evaluation for an abscess is limited due to the lack of intravenous contrast. However, no loculated fluid collections identified. There is complete fatty atrophy of the visualized muscles of the right lower extremity. Small right knee effusion. No edema or fat stranding within the muscular compartments to suggest a fasciitis or myositis. Cortical thickening at the bases of the third and fourth metatarsals remains unchanged and may be due to an old fracture. There is also mild periosteal thickening at the mid to distal fibula which could be due to the chronic stasis. No acute fracture or dislocation within the visualized osseous structures. No bony destruction to suggest osteomyelitis at this time. Plantar heel spur. IMPRESSION: 1. Overall, no significant change compared the prior study. 2. Severe subcutaneous edema and skin thickening throughout the visualized right lower leg and foot. This favors diffuse edema or a cellulitis. No soft tissue gas identified. 3. No bony destruction to suggest osteomyelitis at this time. 4. Diffuse osteopenia and complete fatty atrophy of the visualized muscles of the right lower extremity are again noted. Electronically signed by: Kike Shelton M.D. 06/30/2017 2:16 PM Dictated Date/Time: 06/30/2017 2:07 PM The status of this report is Signed. Draft = Not yet reviewed or approved by Radiologist. Signed = Reviewed and approved by Radiologist. <AttendingPhy>Tonny Mason M.D.</AttendingPhy> <FamilyPhy>[facility] [place]< /FamilyPhy> <PrimaryPhy>[facility] [place]</PrimaryPhy> <UnitNumber>[id number]< /UnitNumber> <VisitNumber>[id number]</VisitNumber> <PatientName>MARICEL BILLY</PatientName> <DateOfBirth>1960</DateOfBirth> <Location>[facility]</ Location> <ServiceDate></ServiceDate> <MNE>ESINDI</MNE> <OrderingPhy>Tonny Mason M.D.</OrderingPhy> <OrderingPhyMNE>f rep ord dr spencer</OrderingPhyMNE> < DictatingPhyMNE>f rep dict dr spencer</DictatingPhyMNE> <CCListMNE>f rep ct johanna</ CCListMNE> <AdmittingPhyMNE>f pt admit dr spencer</AdmittingPhyMNE> <AttendingPhyMNE >f pt attend dr spencer</AttendingPhyMNE> <ConsultingPhyMNE>f pt consult dr spencer</ConsultingPhyMNE> <FamilyPhyMNE>f pt fam dr spencer</FamilyPhyMNE> <OtherPhyMNE>f pt other dr spencer</OtherPhyMNE> < PrimaryPhyMNE>f pt prim care dr spencer</PrimaryPhyMNE> <ReferringPhyMNE>f pt referring dr spencer</ReferringPhyMNE> Assessment & Plan 56-year-old male with recurrent lower extremity cellulitis, severe chronic lower extremity lymphedema, diabetes mellitus presents with recurrent severe cellulitis, possibly with early vascular ischemia. Given multiple resistant organisms documented in the past, broad-spectrum coverage appropriate, and would recommend combination of daptomycin and imipenem. Recommend vascular surgery consultation. Will discuss with all involved. Will follow.
--- NOTE | 2017-06-30 15:13 | Pharmacy Progress Note ---
Glycemic Control Intl Consult Date of Service Jun 30, 2017. Scope Glycemic Pharmacist consulted by Dr Mason on 06/30/17 for glycemic control and to write orders per [facility] inpatient glycemic control protocol Objective Weight (Kilograms): 198.300 Accuchecks BSG (last 24hrs): Test 06/30/17 12:31 Random Glucose 197 mg/dl (70-99) Laboratory Data (last 24hrs) Test 06/30/17 12:31 Anion Gap 11.0 mmol/L BUN/Creatinine Ratio 28.3 Blood Urea Nitrogen 81 mg/dl Creatinine 2.85 mg/dl Potassium Level 4.3 mmol/L Sodium Level 137 mmol/L White Blood Count 8.34 K/uL Red Blood Count 3.38 M/uL Hemoglobin 8.7 g/dL Hematocrit 28.0 % Mean Corpuscular Volume 82.8 fL Mean Corpuscular Hemoglobin 25.7 pg Mean Corpuscular Hemoglobin Concent 31.1 g/dl Platelet Count 210 K/uL Mean Platelet Volume 9.4 fL Neutrophils (%) (Auto) 69.8 % Lymphocytes (%) (Auto) 15.7 % Monocytes (%) (Auto) 7.8 % Eosinophils (%) (Auto) 6.1 % Basophils (%) (Auto) 0.2 % Neutrophils # (Auto) 5.82 K/uL Lymphocytes # (Auto) 1.31 K/uL Monocytes # (Auto) 0.65 K/uL Eosinophils # (Auto) 0.51 K/uL Basophils # (Auto) 0.02 K/uL HbA1c 7.7% on 06/09/17 * However, this result is likely somewhat unreliable d/t anemia and recent blood transfusions Recent Pertinent Medications Outpatient Anti-diabetic Regimen: * Levemir 15 units SQ BID * NovoLog 110-140 * CF = 25 * CR = 10 Risk Factors for Insulin Resistance: * Infection * Volume overload * Diet Assessment & Plan ASSESSMENT: * 56yo T2DM male well known to pharmacy from previous admissions/glycemic consults * Outpatient control of diabetes seems adequate per A1c but result may be somewhat unreliable d/t anemia and recent blood transfusions. * Pt reports SMBG with values usually 90-120. Pt had been at [facility] s/p admit where they managed BSGs * Pt verbalized understanding of survival skills and declined need for any additional written info. * Typically, patient requires less than outpatient doses of insulin for admission d/t decreased PO intake as compared to outpatient * Will initiate SQ basal bolus insulin regimen per May admission and titrate based on BSG trends * Tight glycemic control crucial for wound healing. * Also, recommend zinc, vitamin C and protein supplementation to promote wound healing in wound care patients * Zinc: 50 mg elemental zinc (e.g., 220 mg zinc sulfate) PO three times per day until wound healed. * Vitamin C: 500-3000mg/day depending on whether it causes soft stool, then back off * Protein: may consult dietary for protein supplement recommendation. Could consider boost glucose control supplement PLAN FOR INPATIENT GLYCEMIC CONTROL: * Basal insulin * Levemir 10 units SQ BID * Bolus insulin * NovoLog per scale ACHS or Q6hrs while NPO * Goal Range: Low 110 mg/dL - High 140 mg/dL * Correction Factor: 25 mg/dL/unit * Nutritional / Prandial insulin per carb ratio of 1 unit per 8 grams CHO consumed * Please note that the plan above was derived based on current level of insulin resistance and hospital stress. These recommendations are appropriate for inpatient admission only. Plan of care upon discharge will need to be reassessed to avoid potential outpatient hypo/hyperglycemia. Thank you.
[2017-06-30 15:19] VITALS: BP 136/52; PULSE 60; TEMP 36.5; O2SAT 99
[2017-06-30] MEDS ORDERED: LEVO25TA PO (15:19)
[2017-06-30] MEDS ORDERED: POTA1CAP2 PO ×2 (15:19)
[2017-06-30] MEDS ORDERED: CMD3 PO (15:19)
[2017-06-30] MEDS ORDERED: ONDANSETRON 4 MG TAB PO PRN (15:30)
[2017-06-30] MEDS ORDERED: hydrOXYzine HCL 25 MG TAB PO PRN (15:30)
[2017-06-30] MEDS ORDERED: NITROGLYCERIN 0.4 MG SL PER TAB CHARGE UT PRN (15:30)
[2017-06-30] MEDS ORDERED: MAGNESIUM HYDROXIDE SUSP 30 ML UDC PO PRN (15:30)
[2017-06-30] MEDS ORDERED: ALBUTEROL HFA 8 GM INHALER INH PRN (15:30)
[2017-06-30] MEDS ORDERED: FENTANYL 25 MCG/HR TDSY TD SCH (16:00)
[2017-06-30] MEDS: INSULIN ASPART 100 UNITS/ML 3 ML PEN SC SCH ×2 (17:20→20:42)
[2017-06-30] MEDS ORDERED: INFLUENZA ADMINISTRATION CHARGE ONE (18:00)
[2017-06-30] MEDS ORDERED: INFLUENZA VIRUS QUAD VACCINE 0.5 ML SYR IM. ONE (18:00)
--- NOTE | 2017-06-30 18:06 | DIAGNOSTIC IMAGING REPORT ---
CHEST ONE VIEW PORTABLE HISTORY: Lower extremity edema. History of pulmonary edema. COMPARISON: Chest 05/16/2017. FINDINGS: The cardiac silhouette remains moderately enlarged. Left-sided pacemaker/defibrillator. No pneumothorax. No pleural effusions. There is mild central pulmonary vascular congestion without overt edema. No focal lung consolidations to suggest pneumonia. IMPRESSION: 1. Stable cardiomegaly. 2. Mild central pulmonary vascular congestion without overt edema. Electronically signed by: Kike Shelton M.D. 06/30/2017 6:05 PM Dictated Date/Time: 06/30/2017 6:04 PM
[2017-06-30] MEDS ORDERED: DAPTOMYCIN CONSULT ACTIVE PRN ×2 (18:35)
[2017-06-30] MEDS ORDERED: IMIPENEM/CILASTATIN CONSULT ACTIVE PRN (18:45)
[2017-06-30 19:00] VITALS: BP 121/71; PULSE 66; TEMP 36.7; O2SAT 95
--- NOTE | 2017-06-30 19:59 | NEPHROLOGY CONSULTATION ---
DATE OF CONSULTATION: 06/30/2017 ATTENDING OF RECORD: Dr. Tonny Mason. REASON FOR CONSULTATION: BART and worsening lymphedema. HISTORY OF PRESENT ILLNESS: This is a 56-year-old male who has had several hospitalizations in both [facility] and [facility] for chronic lymphedema, recurrent cellulitis who has had diabetes since 1981 with very poor vision secondary to retinal tears. The patient with hypertension since 1995, has significant heart disease and vascular disease with multiple heart attacks and strokes with some residual right arm weakness, also has a defibrillator/pacemaker which has gone off several times as well as underlying atrial fibrillation. 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 The patient was born with hydrocephalus and did require a shunt as a baby. The patient during last admission was diuresed excessively with albumin and Lasix. The patient has gained a significant amount of weight and has worsening weeping and ulceration of the right lower extremity with a creatinine that is trending up and now into 3s. The patient is being admitted for antibiotics as well as albumin with Lasix to try to mobilize the fluid better. PAST MEDICAL HISTORY: Diabetes, poor vision, hypertension, coronary artery disease with history of PR as well as atrial fibrillation, history of strokes, vascular disease, chronic lower extremity DVT, history of eyelid cancer, hydrocephalous as a child, obstructive sleep apnea. PAST SURGICAL HISTORY: Eye surgery for cancer of the eyelid, brain shunt as a child secondary hydrocephalus, cholecystectomy, pacemaker/defibrillator, 2 back surgeries, IVC filter. FAMILY HISTORY: Significant for heart disease. SOCIAL HISTORY: No smoking, no alcohol, no drugs. He is currently a resident at [facility]. REVIEW OF SYSTEMS: Positive poor vision. Positive lower extremity edema. The patient states he avoids salts. He has a chronic wound and chronic lymphedema. No diarrhea or constipation. No dysuria or hematuria. No chest pain or shortness of breath. No dysphagia. No rash or itching. All other review of systems otherwise negative. CURRENT MEDICATIONS: Fentanyl patch every 3 days, Coumadin 3 mg daily, Claritin 10 mg daily, Effexor 75 mg daily, Protonix 40 mg daily, potassium 10 mEq daily, Synthroid 25 mcg daily, Lasix with albumin 80 IV b.i.d., Lipitor 80 mg at night, Coreg 25 mg p.o. b.i.d., Lyrica 75 mg p.o. b.i.d., senna 2 tabs at night, Flomax 0.4 mg at night, trazodone 50 mg at night, Ursodiol 300 mg p.o. b.i.d., fentanyl patch 25 mcg q. 72 hours. PHYSICAL EXAMINATION: VITAL SIGNS: Temperature 36.5, pulse 60, respiratory rate 24, blood pressure 136/52, satting 99% on room air. GENERAL: Awake, alert, oriented x3. EYES: Scleral icterus. HEENT: Moist mucous membranes. NECK: Supple. PULMONARY: Clear to auscultation. CARDIAC: Regular rate. ABDOMEN: Bowel sounds positive, soft, nontender. EXTREMITIES: Right leg with significant weeping, +4 edema. Left leg, +3 edema. NEUROLOGICALLY: Does have some residual right-sided weakness. DERMATOLOGIC: Chronic weeping ulcers of the lower extremities. LABORATORY DATA: White count is 8. H&H 8.7 and 28, platelet count is 210. Sodium is 137, potassium is 4.3, chloride is 103, bicarb is 23, BUN is 81, creatinine is 2.85, glucose 214 and calcium is 8, albumin is 2.2. TSH 6.3. INR is 3.4. Blood cultures are pending. Lower extremity CT shows severe subcutaneous edema and severe thickening throughout the visualized right lower leg and foot that favors diffuse edema, no soft tissue gas identified, no bony destruction to suggest osteomyelitis. ASSESSMENT AND PLAN: 1. Chronic kidney disease stage IV with creatinine now at 2.85 which stands to vary based on diuretics which are required to help maintain his chronic lymphedema with worsening lower extremity ulceration and weeping suggestive of cellulitis. No indications for emergent dialysis at this time. I have initiated Lasix with albumin 80 IV b.i.d. During previous admission, the patient was on 80 IV t.i.d. and diuresed quite well. May need to titrate up dose of diuretic depending on response. Okay with creatinine trending up since medically necessary to remove fluid. 2. Anemia. Hemoglobin level 8.7. We will check an iron saturation and ferritin and may benefit from IV iron during this hospital course. 3. Hypokalemia. Potassium levels stable on potassium supplement. Given the significant diuresis, potassium level is likely to drop and we will follow levels and dose accordingly. Chronic recurrent lower extremity cellulitis. Infectious disease recommending daptomycin and imipenem and recommending vascular surgery consultation. I appreciate consultation.
[2017-06-30] MEDS: DAPTOMYCIN IV SCH (20:26)
[2017-06-30] MEDS: PREGABALIN 75 MG CAP PO SCH (20:29)
[2017-06-30] MEDS: ATORVASTATIN 40 MG TAB PO SCH (20:31)
[2017-06-30] MEDS: TAMSULOSIN HCL 0.4 MG CAP PO SCH (20:31)
[2017-06-30] MEDS: URSODIOL 300 MG CAP PO SCH (20:32)
[2017-06-30] MEDS: CARVEDILOL 25 MG TAB PO SCH (20:33)
[2017-06-30] MEDS: TRAZODONE HCL 50 MG TAB PO SCH (20:33)
[2017-06-30] MEDS: DOCUSATE SODIUM/SENNA 50/8.6MG TAB PO SCH (20:35)
[2017-06-30] MEDS: ACETAMINOPHEN/CODEINE 300/30MG TAB PO PRN (20:42)
[2017-06-30] MEDS: IMIPENEM/CILASTATIN IV 500 MG in D5W 100ML IV SCH (20:42)
[2017-06-30] MEDS: INSULIN DETEMIR FLEXPEN/FLEX TOUCH 100 UNITS/ML 3ML SC SCH (20:43)
[2017-06-30] MEDS: ALBUMIN 25% 50 ML with FUROSEMIDE INJ 80 MG IV SCH ×2 (20:49)
[2017-06-30 22:56] VITALS: BP 127/79; PULSE 63; TEMP 36.7; O2SAT 98
[2017-07-01] VITALS (8 sets, daily range): BP systolic 116–128; BP diastolic 64–75; PULSE 63–66; TEMP 36.3–36.7; O2SAT 92–98
[2017-07-01] MEDS: CHECK FENTANYL PATCH PLACEMENT SCH ×3 (00:07→15:44)
[2017-07-01] MEDS: IMIPENEM/CILASTATIN IV 500 MG in D5W 100ML IV SCH ×3 (04:08→20:35)
[2017-07-01 05:33] LABS: BASO % 0.4 %; BASO ABS # 0.03 K/uL (0-0.2); EOS % 6.5 %; HEMATOCRIT 27.4 % (42-52); IG% 0.3 %; LYMPH % 17.5 %; LYMPH ABS # 1.32 K/uL (1.2-3.4); MEAN CELL VOLUME 83.3 fL (80-100); MEAN CORPUSCULAR HEMOGLOBIN 25.2 pg (25-34); MEAN CORPUSCULAR HGB CONC 30.3 g/dl (32-36); MEAN PLATELET VOLUME 9.4 fL (7.4-10.4); MONO % 10.2 %; NEUT % 65.1 %; PLATELET COUNT 204 K/uL (130-400); RED BLOOD COUNT 3.29 M/uL (4.7-6.1); WHITE BLOOD COUNT 7.53 K/uL (4.8-10.8)
[2017-07-01 05:44] LABS: INR 3.7 (0.9-1.1); PROTHROMBIN TIME (PATIENT) 42.2 SECONDS (9.0-12.0)
[2017-07-01] MEDS: LEVOTHYROXINE 25 MCG TAB PO SCH (05:45)
[2017-07-01 06:03] LABS: BUN/CREATININE RATIO 27.4 (10-20); CALCIUM 7.8 mg/dl (8.5-10.1); CREATININE 2.88 mg/dl (0.60-1.40); POTASSIUM 4.1 mmol/L (3.5-5.1)
[2017-07-01 06:10] LABS: ALB/GLOB RATIO 0.4 (0.9-2); FERRITIN 134.7 ng/ml (8.0-388.0)
[2017-07-01 06:28] LABS: ANISOCYTOSIS PRESENT; COMPLETE YES; HYPOCHROMIA PRESENT
[2017-07-01] MEDS: NYSTATIN POWDER 15GM BTL EXT SCH (08:46)
[2017-07-01] MEDS: ALBUMIN 25% 50 ML with FUROSEMIDE INJ 80 MG IV SCH ×4 (08:47→18:12)
[2017-07-01] MEDS: URSODIOL 300 MG CAP PO SCH ×2 (08:48→20:45)
[2017-07-01] MEDS: VENLAFAXINE HCL 37.5 MG TAB PO SCH (08:48)
[2017-07-01] MEDS: CARVEDILOL 25 MG TAB PO SCH ×2 (08:48→20:45)
[2017-07-01] MEDS: PANTOprazole SOD 40 MG TAB PO SCH (08:48)
[2017-07-01] MEDS: LORATADINE 10 MG TAB PO SCH (08:49)
[2017-07-01] MEDS: INSULIN ASPART 100 UNITS/ML 3 ML PEN SC SCH ×4 (08:50→20:46)
[2017-07-01] MEDS: INSULIN DETEMIR FLEXPEN/FLEX TOUCH 100 UNITS/ML 3ML SC SCH ×2 (08:51→20:40)
[2017-07-01] MEDS: PREGABALIN 75 MG CAP PO SCH ×2 (08:58→20:44)
[2017-07-01] MEDS ORDERED: POTASSIUM CHLORIDE 10 MEQ TABCR PO SCH (09:00)
[2017-07-01] MEDS: ACETAMINOPHEN/CODEINE 300/30MG TAB PO PRN ×2 (09:14→15:23)
--- NOTE | 2017-07-01 11:18 | Progress Note ---
Medicine Progress Note Date & Time of Visit: Jul 01, 2017 at 10:48. Subjective Pt was seen and examined Lying in bed with no distress Pt said that he is having some pain in his back and his leg Denies any chest pain, palpitation, dizziness, fever and SOB Objective Last 8 Hrs Date Time Temp Pulse Resp B/P (MAP) Pulse Ox O2 Delivery O2 Flow Rate FiO2 07/01/17 08:00 Room Air 07/01/17 07:48 36.4 63 18 116/64 (81) 96 Room Air 07/01/17 04:00 98 Room Air 07/01/17 03:43 36.4 64 16 125/74 (91) 98 Room Air Physical Exam: General- No acute distress Head- atraumatic Eyes- PERRL, EOMI ENT- oropharynx clear Neck- supple, no JVD Lungs- clear to auscultation and percussion Heart- regular rhythm; no murmur Abdomen- normal bowel sounds, soft Extremities-B/L LE Edema R>L.discoloration skin/toes nail.gangrenous of right big toes,darkened spots in all toes toes.wound with yellowish sloughing tissue. Neuro- alert, oriented x 3; PERRL, EOMI; no facial palsy Skin- warm & dry Laboratory Results: Last 24 Hours Test 06/30/17 12:31 06/30/17 16:02 06/30/17 19:47 06/30/17 19:49 White Blood Count 8.34 K/uL Red Blood Count 3.38 M/uL Hemoglobin 8.7 g/dL Hematocrit 28.0 % Mean Corpuscular Volume 82.8 fL Mean Corpuscular Hemoglobin 25.7 pg Mean Corpuscular Hemoglobin Concent 31.1 g/dl Platelet Count 210 K/uL Mean Platelet Volume 9.4 fL Neutrophils (%) (Auto) 69.8 % Lymphocytes (%) (Auto) 15.7 % Monocytes (%) (Auto) 7.8 % Eosinophils (%) (Auto) 6.1 % Basophils (%) (Auto) 0.2 % Neutrophils # (Auto) 5.82 K/uL Lymphocytes # (Auto) 1.31 K/uL Monocytes # (Auto) 0.65 K/uL Eosinophils # (Auto) 0.51 K/uL Basophils # (Auto) 0.02 K/uL RDW Standard Deviation 59.1 fL RDW Coefficient of Variation 19.8 % Immature Granulocyte % (Auto) 0.4 % Immature Granulocyte # (Auto) 0.03 K/uL Hypersegmented Polys 1+ Hypochromasia PRESENT Anisocytosis PRESENT Prothrombin Time 38.1 SECONDS Prothromb Time International Ratio 3.4 Sodium Level 137 mmol/L Potassium Level 4.3 mmol/L Chloride Level 103 mmol/L Carbon Dioxide Level 23 mmol/L Anion Gap 11.0 mmol/L Blood Urea Nitrogen 81 mg/dl Creatinine 2.85 mg/dl Est Creatinine Clear Calc Drug Dose 55.4 ml/min Estimated GFR () 27.2 Estimated GFR (Non- 23.4 BUN/Creatinine Ratio 28.3 Random Glucose 197 mg/dl Calcium Level 8.0 mg/dl Total Bilirubin 0.4 mg/dl Aspartate Amino Transf (AST/SGOT) 13 U/L Alanine Aminotransferase (ALT/SGPT) 12 U/L Alkaline Phosphatase 212 U/L Total Protein 7.5 gm/dl Albumin 2.2 gm/dl Globulin 5.3 gm/dl Albumin/Globulin Ratio 0.4 Thyroid Stimulating Hormone (TSH) 6.340 uIu/ml Bedside Glucose 214 mg/dl 130 mg/dl Free Thyroxine 1.07 ng/dl Thyroxine (T4) 3.5 mcg/dl Test 07/01/17 05:21 White Blood Count 7.53 K/uL Red Blood Count 3.29 M/uL Hemoglobin 8.3 g/dL Hematocrit 27.4 % Mean Corpuscular Volume 83.3 fL Mean Corpuscular Hemoglobin 25.2 pg Mean Corpuscular Hemoglobin Concent 30.3 g/dl Platelet Count 204 K/uL Mean Platelet Volume 9.4 fL Neutrophils (%) (Auto) 65.1 % Lymphocytes (%) (Auto) 17.5 % Monocytes (%) (Auto) 10.2 % Eosinophils (%) (Auto) 6.5 % Basophils (%) (Auto) 0.4 % Neutrophils # (Auto) 4.90 K/uL Lymphocytes # (Auto) 1.32 K/uL Monocytes # (Auto) 0.77 K/uL Eosinophils # (Auto) 0.49 K/uL Basophils # (Auto) 0.03 K/uL RDW Standard Deviation 60.3 fL RDW Coefficient of Variation 19.8 % Immature Granulocyte % (Auto) 0.3 % Immature Granulocyte # (Auto) 0.02 K/uL Hypochromasia PRESENT Anisocytosis PRESENT Prothrombin Time 42.2 SECONDS Prothromb Time International Ratio 3.7 Sodium Level 138 mmol/L Potassium Level 4.1 mmol/L Chloride Level 104 mmol/L Carbon Dioxide Level 25 mmol/L Anion Gap 9.0 mmol/L Blood Urea Nitrogen 79 mg/dl Creatinine 2.88 mg/dl Est Creatinine Clear Calc Drug Dose 54.8 ml/min Estimated GFR () 26.8 Estimated GFR (Non- 23.2 BUN/Creatinine Ratio 27.4 Random Glucose 105 mg/dl Calcium Level 7.8 mg/dl Magnesium Level 2.0 mg/dl Iron Level 21 mcg/dl Total Iron Binding Capacity 174 mcg/dl Transferrin 142 mg/dl Transferrin % Saturation 11 % Ferritin 134.7 ng/ml Total Bilirubin 0.4 mg/dl Aspartate Amino Transf (AST/SGOT) 12 U/L Alanine Aminotransferase (ALT/SGPT) 11 U/L Alkaline Phosphatase 174 U/L Total Protein 7.5 gm/dl Albumin 2.1 gm/dl Globulin 5.4 gm/dl Albumin/Globulin Ratio 0.4 Date/Time Source Procedure Growth Status 06/30/17 12:40 Blood Blood Culture Pending Received 06/30/17 12:31 Blood Blood Culture Pending Received 06/30/17 11:55 Nasal MRSA DNA Surveillance Screen - Final Specimen Positive for MRSA by DNA Probe Complete Assessment & Plan This is a 56yo M with a PMH of HTN, DM II, h/o chronic R DVT, 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 Bilateral lower extremity swelling: Multifactorial with h/o lymphedema, CHF, CKD, DM type 2 Continue IV lasix 80 BID with albumin Monitor I/O nephrology on board Severe BLE cellulitis: H/o chronic LE cellulitis with antibiotic resistance, RLE > LLE Grew multiple resistant organisms in the past Multiple hospital admission Worsening as per patient CT LE showed No evidence of abscess formation, drainable fluid collection, or necrotizing fascitis Surgery was consulted and no surgical intervention at this time from surgery team Vascular surgery consulted no intervention at this time. Infectious disease on board recommended combination of daptomycin and imipenem Ortho consulted- Pending Wound care consult Continue daily wound care Chronic systolic/diastolic HF: Asymptomatic CXR showed mild central pulmonary vascular congestion without overt edema. Continue 80mg IV Lasix BID with albumin Last Echo in Mar 2017 showed EF of 55-60%, mild concentric LVH, left atrium severely dilated Will start on fluid restriction Daily I/O DM II: Hgb a1c of 7.7 in May 2017 On levemir Continue Insulin coverage Continue monitor BS Chronic A Fib: rate is controlled INR 3.7 today Will hold today dose Continue monitor lNR BART on CKD Stage IV: Creatine on admission 2.85 Baseline GFR ~30, Cr 2.4 Creatine 2.88 Mostly creatine will worsening due to IV lasix Consult nephrology Continue monitor BMP H/o R DVT/PE: S/p IVC filter Hold today dose coumadin INR 3.7 HTN: Stable Continue home meds Hypothyroidism: TSH elevated to 6.3 Will increase levothyroxine DVT px on coumadin INR 3.7 today CODE STATUS FULL CODE Consultants: Nephro Ortho Surgery Vascular surgery wound care Current Inpatient Medications: Current Inpatient Medications Medications (Trade) Dose Ordered Sig/Miguel Route Start Time Stop Time Status Last Admin Dose Admin Furosemide 80 mg/ Albumin Human 58 ml @ 54 mls/hr BID@0900,2100 IV 06/30/17 21:00 07/03/17 20:59 07/01/17 08:47 54 MLS/HR Glucose (Glucose 40% Gel) 15-30 GRAMS 15 GRAMS... UD PRN PO 06/30/17 14:30 07/30/17 14:29 Glucose (Glucose Chew Tab) 4-8 Tablets 4 Tabl... UD PRN PO 06/30/17 14:30 07/30/17 14:29 Dextrose (Dextrose 50% 50ML Syringe) 25-50ML OF 50% DW IV FOR... UD PRN IV 06/30/17 14:30 07/30/17 14:29 Glucagon (Glucagon Inj) 1 mg UD PRN SQ 06/30/17 14:30 07/30/17 14:29 Miscellaneous Information (Consult Glycemic Management Pharmacy) 1 ea UD PRN N/A 06/30/17 14:43 07/30/17 14:42 Insulin Aspart (novoLOG ASPART) SLIDING SCALE ACHS SC 06/30/17 16:15 07/30/17 16:14 07/01/17 08:50 5 UNITS Insulin Detemir (Levemir Flexpen/ FlexTouch) 10 units BID SC 06/30/17 21:00 07/30/17 20:59 07/01/17 08:51 10 UNITS Acetaminophen/ Codeine Phosphate (Tylenol w/ Codeine #3 Tab) 1 tab Q6H PRN PO 06/30/17 15:30 07/30/17 15:29 07/01/17 09:14 1 TAB Albuterol (Ventolin Hfa Inhaler) 2 puffs Q6H PRN INH 06/30/17 15:30 07/30/17 15:29 Atorvastatin Calcium (Lipitor Tab) 80 mg HS PO 06/30/17 21:00 07/30/17 20:59 06/30/17 20:31 80 MG Carvedilol (Coreg Tab) 25 mg BID PO 06/30/17 21:00 07/30/17 20:59 07/01/17 08:48 25 MG Hydroxyzine HCl (Vistaril Tab) 25 mg QID PRN PO 06/30/17 15:30 07/30/17 15:29 Levothyroxine Sodium (Synthroid Tab) 25 mcg DAILYBB PO 07/01/17 06:00 07/31/17 05:59 07/01/17 05:45 25 MCG Loratadine (Claritin Tab) 10 mg DAILY PO 07/01/17 09:00 07/31/17 08:59 07/01/17 08:49 10 MG Magnesium Hydroxide (Milk Of Magnesia Susp) 30 ml DAILY PRN PO 06/30/17 15:30 07/30/17 15:29 Nitroglycerin (Nitrostat Tab) 0.4 mg UD PRN UT 06/30/17 15:30 07/30/17 15:29 Nystatin (Mycostatin Powder) 1 appln DAILY EXT 07/01/17 09:00 07/31/17 08:59 07/01/17 08:46 1 APPLN Ondansetron HCl (Zofran Tab) 4 mg Q8 PRN PO 06/30/17 15:30 07/30/17 15:29 Pregabalin (Lyrica Cap) 75 mg BID PO 06/30/17 21:00 07/30/17 20:59 07/01/17 08:58 75 MG Senna/Docusate Sodium (Senokot S Tab) 2 tab HS PO 06/30/17 21:00 07/30/17 20:59 06/30/17 20:35 2 TAB Tamsulosin HCl (Flomax Cap) 0.4 mg HS PO 06/30/17 21:00 07/30/17 20:59 06/30/17 20:31 0.4 MG Trazodone HCl (Desyrel Tab) 50 mg HS PO 06/30/17 21:00 07/30/17 20:59 06/30/17 20:33 50 MG Ursodiol (Actigall Cap) 300 mg BID PO 06/30/17 21:00 07/30/17 20:59 07/01/17 08:48 300 MG Venlafaxine HCl (effeXOR TAB) 75 mg QAM PO 07/01/17 09:00 07/31/17 08:59 07/01/17 08:48 75 MG Pantoprazole Sodium (Protonix Tab) 40 mg DAILY PO 07/01/17 09:00 07/31/17 08:59 07/01/17 08:48 40 MG Potassium Chloride (Klor-Con M10) 10 meq DAILY PO 07/01/17 09:00 07/31/17 08:59 07/01/17 08:48 10 MEQ Miscellaneous Information (Check Fentanyl Patch Placement) 1 ea QS N/A 07/01/17 00:00 07/31/17 00:00 07/01/17 08:00 1 EA Fentanyl (Duragesic Patch) 25 mcg Q72H TD 07/03/17 08:00 07/17/17 07:59 Miscellaneous (Fentanyl Patch Remove & Waste) 1 ea Q3D@0759 N/A 07/03/17 07:59 08/02/17 07:58 Daptomycin (Consult) 1 ea UD PRN N/A 06/30/17 18:35 07/30/17 18:34 Daptomycin 800 mg/ Syringe 16 ml @ 8 mls/min Q24H IV 06/30/17 19:00 07/10/17 18:59 06/30/17 20:26 8 MLS/MIN Imipenem/ Cilastatin Sodium 500 mg/Dextrose 110 ml @ 110 mls/hr Q8H IV 06/30/17 20:00 07/10/17 19:59 07/01/17 04:08 110 MLS/HR Imipenem/ Cilastatin Sodium (Consult) 1 ea UD PRN N/A 06/30/17 18:45 07/30/17 18:44
--- NOTE | 2017-07-01 12:41 | Pharmacy Progress Note ---
Glycemic: Assessment & Plan Date of Service Jul 01, 2017. Assessment & Plan The patient is currently receiving ~40 units of insulin per day. BSGs ranging 105 - 214 mg/dl over the past 24hrs. * Basal insulin: Lantus 10 units every 12 hours * Correctional Insulin: Novolog Correction per scale ACHS Goal Range: Low 110 mg/dL - High 140 mg/dL Correction Factor: 25 mg/dL/unit * Prandial insulin: Per carb ratio of 1 unit per 8 grams CHO consumed BSGs continue to improve, no changes needed to inpatient regimen at this time. Pharmacy will continue to monitor patient daily and write orders per [facility] inpatient glycemic control protocol. Thanks. * Please note that the plan above was derived based on current level of insulin resistance and hospital stress. These recommendations are appropriate for inpatient admission only. Plan of care upon discharge will need to be reassessed to avoid potential outpatient hypo/hyperglycemia.
--- NOTE | 2017-07-01 13:25 | Orthopedic Consultation ---
Orthopedic Consultation Date of Consultation: Jul 01, 2017. Attending Physician: Tonny Mason M.D. Reason for Consultation: Bilateral lower shoulder cellulitis and chronic wounds History of Present Illness 56-year-old male who is recently been admitted for volume overload. He has chronic venous stasis and lower extremity edema bilaterally. He is being treated with local wound care. He is on broad-spectrum antibiotics. Recently had a large extremity CT scan which was negative for fluid collection Past Medical/Surgical History Medical Problems: (1) Altered mental status Status: Acute (2) Anemia Status: Acute (3) Anemia Status: Acute (4) Cellulitis Status: Acute (5) Cellulitis Status: Acute (6) CHF (congestive heart failure) Status: Acute (7) Confusion Status: Acute (8) Deep vein thrombosis Status: Acute (9) Hypoglycemia Status: Acute (10) Hypoxia Status: Acute (11) Shortness of breath Status: Acute (12) Vitreous hemorrhage Status: Acute Social History Problems: (1) DVT (deep venous thrombosis) Status: Acute Family History FH: CAD (coronary artery disease) FATHER ( of [place] late 60s) Social History Smoking Status: Never Smoker Drug Use: none Marital Status: Housing Status: unknown Occupation Status: retired Allergies Coded Allergies: Cephalosporins (Verified Allergy, Unknown, increased HR vs sick to stomach , pt unsure abx allergy to?, 05/05/17) Clindamycin (Verified Allergy, Unknown, increased HR vs sick to stomach, pt unsure abx allergy to?, 05/05/17) Iodinated Diagnostic Agents (Verified Allergy, Unknown, unknown, 04/04/17) Penicillins (Unverified Allergy, Unknown, increased HR vs sick to stomach , pt unsure abx allergy to?, 05/05/17) Perflutren (Verified Allergy, Unknown, PERFLUTREN LIPID MICROSPHERES, 04/04) Home Medications Scheduled Atorvastatin (Lipitor), 80 MG PO HS Carvedilol (Coreg), 25 MG PO BID Esomeprazole Magnesium (Nexium), 40 MG PO DAILY Fentanyl (Fentanyl), 25 MCG TD Q72H Furosemide (Furosemide), 80 MG PO BID17 Insulin Aspart (Novolog Flexpen), 0 UNITS SC ACHS Insulin Detemir (Levemir), 15 UNITS SQ BID Lactobacillus Acidophilus (Lactinex), 2 TAB PO BID Levothyroxine Sodium (Synthroid), 25 MCG PO DAILY Loratadine (Claritin), 10 MG PO DAILY Melatonin (Melatonin), 10 MG PO HS Multiple Vitamins W/ Minerals (Theragran-M), 1 TAB PO QAM Nystatin (Nystop), 1 APPLN EXT DAILY Polyethylene Glycol 3350 (Miralax), 17 GM PO DAILY Potassium Chloride (Potassium Chloride Er), 1 CAP PO DAILY Pregabalin (Lyrica), 75 MG PO BID Sennosides-Docusate Sodium (Sennalax-S), 2 TABS PO HS Tamsulosin HCl (Tamsulosin HCl), 0.4 MG PO HS Trazodone Hcl (Trazodone), 50 MG PO HS Ursodiol (Ursodiol), 300 MG PO BID Venlafaxine Hcl (Effexor), 75 MG PO QAM Warfarin Sod (Coumadin), 1 TAB PO DAILY Scheduled PRN Acetaminophen (Tylenol), 500 MG PO Q4 PRN for Pain or Fever Acetaminophen/Codeine (Tylenol W/Codeine #3), 1 TAB PO Q6H PRN for Pain Albuterol Hfa (Ventolin Hfa), 2 PUFFS INH Q6H PRN for Wheezing Bisacodyl (Dulcolax), 1 SUPP SD Q24H PRN for no bm past 2 days Dextrose (Diabetic Use) (Insta-Glucose), 1 APPLN PO UD PRN for HYPOGLYCEMIA PROTOCOL Hydroxyzine Hcl (Atarax), 25 MG PO QID PRN for Itching Magnesium Hydroxide (Milk Of Magnesia), 30 ML PO UD PRN for Constipation Nitroglycerin (Nitrostat), 0.4 MG UT UD PRN for Chest Pain Ondansetron Hcl (Zofran), 4-8 MG PO Q8 PRN for Nausea Miscellaneous Medications Glucagon (Glucagon Emergency Kit) Current Inpatient Medications Current Inpatient Medications Medications (Trade) Dose Ordered Sig/Miguel Route Start Time Stop Time Status Last Admin Dose Admin Furosemide 80 mg/ Albumin Human 58 ml @ 54 mls/hr BID@0900,2100 IV 06/30/17 21:00 07/03/17 20:59 07/01/17 08:47 54 MLS/HR Glucose (Glucose 40% Gel) 15-30 GRAMS 15 GRAMS... UD PRN PO 06/30/17 14:30 07/30/17 14:29 Glucose (Glucose Chew Tab) 4-8 Tablets 4 Tabl... UD PRN PO 06/30/17 14:30 07/30/17 14:29 Dextrose (Dextrose 50% 50ML Syringe) 25-50ML OF 50% DW IV FOR... UD PRN IV 06/30/17 14:30 07/30/17 14:29 Glucagon (Glucagon Inj) 1 mg UD PRN SQ 06/30/17 14:30 07/30/17 14:29 Miscellaneous Information (Consult Glycemic Management Pharmacy) 1 ea UD PRN N/A 06/30/17 14:43 07/30/17 14:42 Insulin Aspart (novoLOG ASPART) SLIDING SCALE ACHS SC 06/30/17 16:15 07/30/17 16:14 07/01/17 12:38 8 UNITS Insulin Detemir (Levemir Flexpen/ FlexTouch) 10 units BID SC 06/30/17 21:00 07/30/17 20:59 07/01/17 08:51 10 UNITS Acetaminophen/ Codeine Phosphate (Tylenol w/ Codeine #3 Tab) 1 tab Q6H PRN PO 06/30/17 15:30 07/30/17 15:29 07/01/17 09:14 1 TAB Albuterol (Ventolin Hfa Inhaler) 2 puffs Q6H PRN INH 06/30/17 15:30 07/30/17 15:29 Atorvastatin Calcium (Lipitor Tab) 80 mg HS PO 06/30/17 21:00 07/30/17 20:59 06/30/17 20:31 80 MG Carvedilol (Coreg Tab) 25 mg BID PO 06/30/17 21:00 07/30/17 20:59 07/01/17 08:48 25 MG Hydroxyzine HCl (Vistaril Tab) 25 mg QID PRN PO 06/30/17 15:30 07/30/17 15:29 Levothyroxine Sodium (Synthroid Tab) 25 mcg DAILYBB PO 07/01/17 06:00 07/31/17 05:59 07/01/17 05:45 25 MCG Loratadine (Claritin Tab) 10 mg DAILY PO 07/01/17 09:00 07/31/17 08:59 07/01/17 08:49 10 MG Magnesium Hydroxide (Milk Of Magnesia Susp) 30 ml DAILY PRN PO 06/30/17 15:30 07/30/17 15:29 Nitroglycerin (Nitrostat Tab) 0.4 mg UD PRN UT 06/30/17 15:30 07/30/17 15:29 Nystatin (Mycostatin Powder) 1 appln DAILY EXT 07/01/17 09:00 07/31/17 08:59 07/01/17 08:46 1 APPLN Ondansetron HCl (Zofran Tab) 4 mg Q8 PRN PO 06/30/17 15:30 07/30/17 15:29 Pregabalin (Lyrica Cap) 75 mg BID PO 06/30/17 21:00 07/30/17 20:59 07/01/17 08:58 75 MG Senna/Docusate Sodium (Senokot S Tab) 2 tab HS PO 06/30/17 21:00 07/30/17 20:59 06/30/17 20:35 2 TAB Tamsulosin HCl (Flomax Cap) 0.4 mg HS PO 06/30/17 21:00 07/30/17 20:59 06/30/17 20:31 0.4 MG Trazodone HCl (Desyrel Tab) 50 mg HS PO 06/30/17 21:00 07/30/17 20:59 06/30/17 20:33 50 MG Ursodiol (Actigall Cap) 300 mg BID PO 06/30/17 21:00 07/30/17 20:59 07/01/17 08:48 300 MG Venlafaxine HCl (effeXOR TAB) 75 mg QAM PO 07/01/17 09:00 07/31/17 08:59 07/01/17 08:48 75 MG Pantoprazole Sodium (Protonix Tab) 40 mg DAILY PO 07/01/17 09:00 07/31/17 08:59 07/01/17 08:48 40 MG Potassium Chloride (Klor-Con M10) 10 meq DAILY PO 07/01/17 09:00 07/31/17 08:59 07/01/17 08:48 10 MEQ Miscellaneous Information (Check Fentanyl Patch Placement) 1 ea QS N/A 07/01/17 00:00 07/31/17 00:00 07/01/17 08:00 1 EA Fentanyl (Duragesic Patch) 25 mcg Q72H TD 07/03/17 08:00 07/17/17 07:59 Miscellaneous (Fentanyl Patch Remove & Waste) 1 ea Q3D@0759 N/A 07/03/17 07:59 08/02/17 07:58 Daptomycin (Consult) 1 ea UD PRN N/A 06/30/17 18:35 07/30/17 18:34 Daptomycin 800 mg/ Syringe 16 ml @ 8 mls/min Q24H IV 06/30/17 19:00 07/10/17 18:59 06/30/17 20:26 8 MLS/MIN Imipenem/ Cilastatin Sodium 500 mg/Dextrose 110 ml @ 110 mls/hr Q8H IV 06/30/17 20:00 07/10/17 19:59 07/01/17 12:32 110 MLS/HR Imipenem/ Cilastatin Sodium (Consult) 1 ea UD PRN N/A 06/30/17 18:45 07/30/17 18:44 Physical Exam Date Time Temp Pulse Resp B/P (MAP) Pulse Ox O2 Delivery O2 Flow Rate FiO2 07/01/17 11:27 36.7 65 20 119/71 (87) 98 07/01/17 08:00 Room Air 07/01/17 07:48 36.4 63 18 116/64 (81) 96 Room Air 07/01/17 04:00 98 Room Air 07/01/17 03:43 36.4 64 16 125/74 (91) 98 Room Air 07/01/17 00:01 98 Room Air 06/30/17 22:56 36.7 63 20 127/79 (95) 98 Room Air 06/30/17 20:13 Room Air 06/30/17 19:00 36.7 66 20 121/71 (88) 95 Room Air 06/30/17 16:00 Room Air 06/30/17 15:19 36.5 60 24 136/52 (80) 99 Room Air Bilateral lower extremities have significant edema. There is venous stasis changes in both legs. He complains of both legs being cold constantly. Distal pulses are not palpable likely secondary to edema. Right lower shoulder and he has more erythema and edema than the left. He is able to move the leg but has minimal motion at the foot or ankle bilaterally. There is fibrinous exudate from a number of areas throughout the lower extremity particularly medially. No fluctuance is appreciated. No purulent drainage is seen General Appearance: no apparent distress Head: normocephalic Eyes: normal inspection ENT: normal ENT inspection Neck: supple Respiratory/Chest: chest non-tender Laboratory Results Last 24 Hours Test 06/30/17 16:02 06/30/17 19:47 06/30/17 19:49 07/01/17 05:21 Bedside Glucose 214 mg/dl 130 mg/dl Free Thyroxine 1.07 ng/dl Thyroxine (T4) 3.5 mcg/dl White Blood Count 7.53 K/uL Red Blood Count 3.29 M/uL Hemoglobin 8.3 g/dL Hematocrit 27.4 % Mean Corpuscular Volume 83.3 fL Mean Corpuscular Hemoglobin 25.2 pg Mean Corpuscular Hemoglobin Concent 30.3 g/dl Platelet Count 204 K/uL Mean Platelet Volume 9.4 fL Neutrophils (%) (Auto) 65.1 % Lymphocytes (%) (Auto) 17.5 % Monocytes (%) (Auto) 10.2 % Eosinophils (%) (Auto) 6.5 % Basophils (%) (Auto) 0.4 % Neutrophils # (Auto) 4.90 K/uL Lymphocytes # (Auto) 1.32 K/uL Monocytes # (Auto) 0.77 K/uL Eosinophils # (Auto) 0.49 K/uL Basophils # (Auto) 0.03 K/uL RDW Standard Deviation 60.3 fL RDW Coefficient of Variation 19.8 % Immature Granulocyte % (Auto) 0.3 % Immature Granulocyte # (Auto) 0.02 K/uL Hypochromasia PRESENT Anisocytosis PRESENT Prothrombin Time 42.2 SECONDS Prothromb Time International Ratio 3.7 Sodium Level 138 mmol/L Potassium Level 4.1 mmol/L Chloride Level 104 mmol/L Carbon Dioxide Level 25 mmol/L Anion Gap 9.0 mmol/L Blood Urea Nitrogen 79 mg/dl Creatinine 2.88 mg/dl Est Creatinine Clear Calc Drug Dose 54.8 ml/min Estimated GFR () 26.8 Estimated GFR (Non- 23.2 BUN/Creatinine Ratio 27.4 Random Glucose 105 mg/dl Calcium Level 7.8 mg/dl Magnesium Level 2.0 mg/dl Iron Level 21 mcg/dl Total Iron Binding Capacity 174 mcg/dl Transferrin 142 mg/dl Transferrin % Saturation 11 % Ferritin 134.7 ng/ml Total Bilirubin 0.4 mg/dl Aspartate Amino Transf (AST/SGOT) 12 U/L Alanine Aminotransferase (ALT/SGPT) 11 U/L Alkaline Phosphatase 174 U/L Total Protein 7.5 gm/dl Albumin 2.1 gm/dl Globulin 5.4 gm/dl Albumin/Globulin Ratio 0.4 Test 07/01/17 11:06 Bedside Glucose 145 mg/dl Assessment & Plan Bilateral lower extremity cellulitis and chronic lymphedema CT scan is negative for any drainable abscess. I don't appreciate any currently draining wounds. I don't appreciate anything that I would recommend surgical intervention for at this time. I agree with the recommendation for evaluation by vascular surgery. And while I don't necessarily feel the patient requires an amputation at this time, if he were to require one I would defer to vascular surgery for this as that is not a procedure that I perform.
--- NOTE | 2017-07-01 13:30 | Nephrology Progress Note ---
Nephrology Progress Note Date of Service: Jul 01, 2017. Subjective some uop; feels he is getting fluid off; declines trujillo; some fatigue; stable chronic back pain; no n/v or constipation or dyspnea Objective Date Time Temp Pulse Resp B/P (MAP) Pulse Ox O2 Delivery O2 Flow Rate FiO2 07/01/17 11:27 36.7 65 20 119/71 (87) 98 07/01/17 08:00 Room Air 07/01/17 07:48 36.4 63 18 116/64 (81) 96 Room Air 07/01/17 04:00 98 Room Air 07/01/17 03:43 36.4 64 16 125/74 (91) 98 Room Air 07/01/17 00:01 98 Room Air 06/30/17 22:56 36.7 63 20 127/79 (95) 98 Room Air 06/30/17 20:13 Room Air 06/30/17 19:00 36.7 66 20 121/71 (88) 95 Room Air 06/30/17 16:00 Room Air 06/30/17 15:19 36.5 60 24 136/52 (80) 99 Room Air Physical Exam: GENERAL: Awake, alert, oriented x3. lying on R side EYES: Scleral icterus. HEENT: Moist mucous membranes. NECK: Supple. PULMONARY: Clear to auscultation. CARDIAC: Regular rate. ABDOMEN: Bowel sounds positive, soft, nontender. no trujillo EXTREMITIES: Right leg with significant weeping/induration/redness, +4 edema. Left leg, +3 edema. NEUROLOGICALLY: Does have some residual right-sided weakness. DERMATOLOGIC: Chronic weeping ulcers BL lower extremities. Current Inpatient Medications Medications (Trade) Dose Ordered Sig/Miguel Route Start Time Stop Time Status Last Admin Dose Admin Furosemide 80 mg/ Albumin Human 58 ml @ 54 mls/hr BID@0900,2100 IV 06/30/17 21:00 07/03/17 20:59 07/01/17 08:47 54 MLS/HR Glucose (Glucose 40% Gel) 15-30 GRAMS 15 GRAMS... UD PRN PO 06/30/17 14:30 07/30/17 14:29 Glucose (Glucose Chew Tab) 4-8 Tablets 4 Tabl... UD PRN PO 06/30/17 14:30 07/30/17 14:29 Dextrose (Dextrose 50% 50ML Syringe) 25-50ML OF 50% DW IV FOR... UD PRN IV 06/30/17 14:30 07/30/17 14:29 Glucagon (Glucagon Inj) 1 mg UD PRN SQ 06/30/17 14:30 07/30/17 14:29 Miscellaneous Information (Consult Glycemic Management Pharmacy) 1 ea UD PRN N/A 06/30/17 14:43 07/30/17 14:42 Insulin Aspart (novoLOG ASPART) SLIDING SCALE ACHS SC 06/30/17 16:15 07/30/17 16:14 07/01/17 12:38 8 UNITS Insulin Detemir (Levemir Flexpen/ FlexTouch) 10 units BID SC 06/30/17 21:00 07/30/17 20:59 07/01/17 08:51 10 UNITS Acetaminophen/ Codeine Phosphate (Tylenol w/ Codeine #3 Tab) 1 tab Q6H PRN PO 06/30/17 15:30 07/30/17 15:29 07/01/17 09:14 1 TAB Albuterol (Ventolin Hfa Inhaler) 2 puffs Q6H PRN INH 06/30/17 15:30 07/30/17 15:29 Atorvastatin Calcium (Lipitor Tab) 80 mg HS PO 06/30/17 21:00 07/30/17 20:59 06/30/17 20:31 80 MG Carvedilol (Coreg Tab) 25 mg BID PO 06/30/17 21:00 07/30/17 20:59 07/01/17 08:48 25 MG Hydroxyzine HCl (Vistaril Tab) 25 mg QID PRN PO 06/30/17 15:30 07/30/17 15:29 Levothyroxine Sodium (Synthroid Tab) 25 mcg DAILYBB PO 07/01/17 06:00 07/31/17 05:59 07/01/17 05:45 25 MCG Loratadine (Claritin Tab) 10 mg DAILY PO 07/01/17 09:00 07/31/17 08:59 07/01/17 08:49 10 MG Magnesium Hydroxide (Milk Of Magnesia Susp) 30 ml DAILY PRN PO 06/30/17 15:30 07/30/17 15:29 Nitroglycerin (Nitrostat Tab) 0.4 mg UD PRN UT 06/30/17 15:30 07/30/17 15:29 Nystatin (Mycostatin Powder) 1 appln DAILY EXT 07/01/17 09:00 07/31/17 08:59 07/01/17 08:46 1 APPLN Ondansetron HCl (Zofran Tab) 4 mg Q8 PRN PO 06/30/17 15:30 07/30/17 15:29 Pregabalin (Lyrica Cap) 75 mg BID PO 06/30/17 21:00 07/30/17 20:59 07/01/17 08:58 75 MG Senna/Docusate Sodium (Senokot S Tab) 2 tab HS PO 06/30/17 21:00 07/30/17 20:59 06/30/17 20:35 2 TAB Tamsulosin HCl (Flomax Cap) 0.4 mg HS PO 06/30/17 21:00 07/30/17 20:59 06/30/17 20:31 0.4 MG Trazodone HCl (Desyrel Tab) 50 mg HS PO 06/30/17 21:00 07/30/17 20:59 06/30/17 20:33 50 MG Ursodiol (Actigall Cap) 300 mg BID PO 06/30/17 21:00 07/30/17 20:59 07/01/17 08:48 300 MG Venlafaxine HCl (effeXOR TAB) 75 mg QAM PO 07/01/17 09:00 07/31/17 08:59 07/01/17 08:48 75 MG Pantoprazole Sodium (Protonix Tab) 40 mg DAILY PO 07/01/17 09:00 07/31/17 08:59 07/01/17 08:48 40 MG Potassium Chloride (Klor-Con M10) 10 meq DAILY PO 07/01/17 09:00 07/31/17 08:59 07/01/17 08:48 10 MEQ Miscellaneous Information (Check Fentanyl Patch Placement) 1 ea QS N/A 07/01/17 00:00 07/31/17 00:00 07/01/17 08:00 1 EA Fentanyl (Duragesic Patch) 25 mcg Q72H TD 07/03/17 08:00 07/17/17 07:59 Miscellaneous (Fentanyl Patch Remove & Waste) 1 ea Q3D@0759 N/A 07/03/17 07:59 08/02/17 07:58 Daptomycin (Consult) 1 ea UD PRN N/A 06/30/17 18:35 07/30/17 18:34 Daptomycin 800 mg/ Syringe 16 ml @ 8 mls/min Q24H IV 06/30/17 19:00 07/10/17 18:59 06/30/17 20:26 8 MLS/MIN Imipenem/ Cilastatin Sodium 500 mg/Dextrose 110 ml @ 110 mls/hr Q8H IV 06/30/17 20:00 07/10/17 19:59 07/01/17 12:32 110 MLS/HR Imipenem/ Cilastatin Sodium (Consult) 1 ea UD PRN N/A 06/30/17 18:45 07/30/17 18:44 Last 24 Hours Test 06/30/17 16:02 06/30/17 19:47 06/30/17 19:49 07/01/17 05:21 Bedside Glucose 214 mg/dl 130 mg/dl Free Thyroxine 1.07 ng/dl Thyroxine (T4) 3.5 mcg/dl White Blood Count 7.53 K/uL Red Blood Count 3.29 M/uL Hemoglobin 8.3 g/dL Hematocrit 27.4 % Mean Corpuscular Volume 83.3 fL Mean Corpuscular Hemoglobin 25.2 pg Mean Corpuscular Hemoglobin Concent 30.3 g/dl Platelet Count 204 K/uL Mean Platelet Volume 9.4 fL Neutrophils (%) (Auto) 65.1 % Lymphocytes (%) (Auto) 17.5 % Monocytes (%) (Auto) 10.2 % Eosinophils (%) (Auto) 6.5 % Basophils (%) (Auto) 0.4 % Neutrophils # (Auto) 4.90 K/uL Lymphocytes # (Auto) 1.32 K/uL Monocytes # (Auto) 0.77 K/uL Eosinophils # (Auto) 0.49 K/uL Basophils # (Auto) 0.03 K/uL RDW Standard Deviation 60.3 fL RDW Coefficient of Variation 19.8 % Immature Granulocyte % (Auto) 0.3 % Immature Granulocyte # (Auto) 0.02 K/uL Hypochromasia PRESENT Anisocytosis PRESENT Prothrombin Time 42.2 SECONDS Prothromb Time International Ratio 3.7 Sodium Level 138 mmol/L Potassium Level 4.1 mmol/L Chloride Level 104 mmol/L Carbon Dioxide Level 25 mmol/L Anion Gap 9.0 mmol/L Blood Urea Nitrogen 79 mg/dl Creatinine 2.88 mg/dl Est Creatinine Clear Calc Drug Dose 54.8 ml/min Estimated GFR () 26.8 Estimated GFR (Non- 23.2 BUN/Creatinine Ratio 27.4 Random Glucose 105 mg/dl Calcium Level 7.8 mg/dl Magnesium Level 2.0 mg/dl Iron Level 21 mcg/dl Total Iron Binding Capacity 174 mcg/dl Transferrin 142 mg/dl Transferrin % Saturation 11 % Ferritin 134.7 ng/ml Total Bilirubin 0.4 mg/dl Aspartate Amino Transf (AST/SGOT) 12 U/L Alanine Aminotransferase (ALT/SGPT) 11 U/L Alkaline Phosphatase 174 U/L Total Protein 7.5 gm/dl Albumin 2.1 gm/dl Globulin 5.4 gm/dl Albumin/Globulin Ratio 0.4 Test 07/01/17 11:06 Bedside Glucose 145 mg/dl Assessment & Plan 56-year-old male w/ chronic R>>L lymphedema, recurrent cellulitis, DM w/ visual impairment, HTN, s/p multiple [place] and strokes w/ residual R arm weakness, w/ afib and defib/pacer, MERY, chronic LLE DVT, CKD 4 admitted 06/30 for diuresis and IV abtx. Some concern for gangrene R great toe >> ortho following. 1. Chronic kidney disease stage IV with creatinine now at 2.9 which stands to vary based on obligate diuretics. No indications for emergent dialysis at this time. Will increase lasix to 80 IV thrice daily 0600, noon, 1800 to not disrupt sleep and avoid trujillo; ok w/ creatinine trending up if need be; limit po fluids to 1.5L daily; <2 gm/day Na diet; strict I/O; daily bmp 2. Anemia. w/ low iron stores >> not in transfusion range; will give 100 mg IV iron x 3 to help replete; will consider procrit 3. Hypokalemia. Potassium levels stable on potassium supplement for now but will increase to 10 mEq bid po given increase in lasix Appreciate consult; will follow with you. Care coordinated w/ Dr. Salazar
[2017-07-01] MEDS: POTASSIUM CHLORIDE 10 MEQ TABCR PO SCH (15:21)
[2017-07-01] MEDS: IRON SUCROSE INJ 100 MG in SODIUM CHLORIDE 0.9% 100ML 100 ML IV SCH (15:44)
[2017-07-01] MEDS ORDERED: WARFARIN SOD 3 MG TAB PO SCH (16:00)
--- NOTE | 2017-07-01 19:44 | Infectious Disease Progress Nt ---
Progress Note Date of Service Jul 01, 2017. Subjective Pt evaluation today including: conversation w/ patient, physical exam, chart review, lab review, review of studies, conversation w/ internal control consultant, review of inpatient medication list Pain in right leg slightly better with diuresis. Remains afebrile. Appears to be tolerating his antibiotic without apparent difficulty. Blood cultures remain negative to date. All Other Systems: Reviewed and Negative Medications Current Inpatient Medications Medications (Trade) Dose Ordered Sig/Miguel Route Start Time Stop Time Status Last Admin Dose Admin Glucose (Glucose 40% Gel) 15-30 GRAMS 15 GRAMS... UD PRN PO 06/30/17 14:30 07/30/17 14:29 Glucose (Glucose Chew Tab) 4-8 Tablets 4 Tabl... UD PRN PO 06/30/17 14:30 07/30/17 14:29 Dextrose (Dextrose 50% 50ML Syringe) 25-50ML OF 50% DW IV FOR... UD PRN IV 06/30/17 14:30 07/30/17 14:29 Glucagon (Glucagon Inj) 1 mg UD PRN SQ 06/30/17 14:30 07/30/17 14:29 Miscellaneous Information (Consult Glycemic Management Pharmacy) 1 ea UD PRN N/A 06/30/17 14:43 07/30/17 14:42 Insulin Aspart (novoLOG ASPART) SLIDING SCALE ACHS SC 06/30/17 16:15 07/30/17 16:14 07/01/17 16:42 4 UNITS Insulin Detemir (Levemir Flexpen/ FlexTouch) 10 units BID SC 06/30/17 21:00 07/30/17 20:59 07/01/17 08:51 10 UNITS Acetaminophen/ Codeine Phosphate (Tylenol w/ Codeine #3 Tab) 1 tab Q6H PRN PO 06/30/17 15:30 07/30/17 15:29 07/01/17 15:23 1 TAB Albuterol (Ventolin Hfa Inhaler) 2 puffs Q6H PRN INH 06/30/17 15:30 07/30/17 15:29 Atorvastatin Calcium (Lipitor Tab) 80 mg HS PO 06/30/17 21:00 07/30/17 20:59 06/30/17 20:31 80 MG Carvedilol (Coreg Tab) 25 mg BID PO 06/30/17 21:00 12/17/17 20:59 07/01/17 08:48 25 MG Hydroxyzine HCl (Vistaril Tab) 25 mg QID PRN PO 06/30/17 15:30 07/30/17 15:29 Levothyroxine Sodium (Synthroid Tab) 25 mcg DAILYBB PO 07/01/17 06:00 07/31/17 05:59 07/01/17 05:45 25 MCG Loratadine (Claritin Tab) 10 mg DAILY PO 07/01/17 09:00 07/31/17 08:59 07/01/17 08:49 10 MG Magnesium Hydroxide (Milk Of Magnesia Susp) 30 ml DAILY PRN PO 06/30/17 15:30 07/30/17 15:29 Nitroglycerin (Nitrostat Tab) 0.4 mg UD PRN UT 06/30/17 15:30 07/30/17 15:29 Nystatin (Mycostatin Powder) 1 appln DAILY EXT 07/01/17 09:00 07/31/17 08:59 07/01/17 08:46 1 APPLN Ondansetron HCl (Zofran Tab) 4 mg Q8 PRN PO 06/30/17 15:30 07/30/17 15:29 Pregabalin (Lyrica Cap) 75 mg BID PO 06/30/17 21:00 07/30/17 20:59 07/01/17 08:58 75 MG Senna/Docusate Sodium (Senokot S Tab) 2 tab HS PO 06/30/17 21:00 07/30/17 20:59 06/30/17 20:35 2 TAB Tamsulosin HCl (Flomax Cap) 0.4 mg HS PO 06/30/17 21:00 07/30/17 20:59 06/30/17 20:31 0.4 MG Trazodone HCl (Desyrel Tab) 50 mg HS PO 06/30/17 21:00 07/30/17 20:59 06/30/17 20:33 50 MG Ursodiol (Actigall Cap) 300 mg BID PO 06/30/17 21:00 07/30/17 20:59 07/01/17 08:48 300 MG Venlafaxine HCl (effeXOR TAB) 75 mg QAM PO 07/01/17 09:00 07/31/17 08:59 07/01/17 08:48 75 MG Pantoprazole Sodium (Protonix Tab) 40 mg DAILY PO 07/01/17 09:00 07/31/17 08:59 07/01/17 08:48 40 MG Miscellaneous Information (Check Fentanyl Patch Placement) 1 ea QS N/A 07/01/17 00:00 07/31/17 00:00 07/01/17 15:44 1 EA Fentanyl (Duragesic Patch) 25 mcg Q72H TD 07/03/17 08:00 07/17/17 07:59 Miscellaneous (Fentanyl Patch Remove & Waste) 1 ea Q3D@0759 N/A 07/03/17 07:59 08/02/17 07:58 Daptomycin (Consult) 1 ea UD PRN N/A 06/30/17 18:35 07/30/17 18:34 Daptomycin 800 mg/ Syringe 16 ml @ 8 mls/min Q24H IV 06/30/17 19:00 07/10/17 18:59 06/30/17 20:26 8 MLS/MIN Imipenem/ Cilastatin Sodium 500 mg/Dextrose 110 ml @ 110 mls/hr Q8H IV 06/30/17 20:00 07/10/17 19:59 07/01/17 12:32 110 MLS/HR Imipenem/ Cilastatin Sodium (Consult) 1 ea UD PRN N/A 06/30/17 18:45 07/30/17 18:44 Furosemide 80 mg/ Albumin Human 58 ml @ 54 mls/hr TID@0600,1200,1800 IV 07/01/17 18:00 07/04/17 17:59 07/01/17 18:12 54 MLS/HR Potassium Chloride (Klor-Con M10) 10 meq BIDM PO 07/01/17 16:45 07/31/17 16:44 07/01/17 15:21 10 MEQ Iron Sucrose 100 mg/Sodium Chloride 105 ml @ 420 mls/hr Q24H IV 07/01/17 16:00 07/03/17 16:14 07/01/17 15:44 420 MLS/HR Objective Vital Signs Date Time Temp Pulse Resp B/P (MAP) Pulse Ox O2 Delivery O2 Flow Rate FiO2 07/01/17 19:33 36.3 66 20 128/73 (91) 94 Room Air 07/01/17 16:00 Room Air 07/01/17 15:29 36.6 64 26 121/75 (90) 98 Room Air 07/01/17 12:00 Room Air 07/01/17 11:27 36.7 65 20 119/71 (87) 98 07/01/17 08:00 Room Air 07/01/17 07:48 36.4 63 18 116/64 (81) 96 Room Air 07/01/17 04:00 98 Room Air 07/01/17 03:43 36.4 64 16 125/74 (91) 98 Room Air 07/01/17 00:01 98 Room Air 06/30/17 22:56 36.7 63 20 127/79 (95) 98 Room Air 06/30/17 20:13 Room Air Laboratory Results RUN DATE: 06/30/17 [facility] LAB PAGE 1 RUN TIME: 1354 Specimen Inquiry PATIENT: MARICEL BILLY LOC: CNeli U # : [id number] AGE/SX: 56/M ROOM: E219 REG : 06/30/[address]: Tonny Mason M.D. : 1960 BED: 1 DIS : STATUS: ADM IN TLOC: SPEC #: [id number] MILEY: 06/30/17 STATUS: COMP REQ #: [id number] RECD: 06/30/17 [facility] DR: Veena Ascencio CRNP SOURCE: NASAL ENTR: 06/30/[address] [facility] [address]: Roberta Xiao [facility]: Tonny Mason M.D. ORDERED: MRSA DNA COMMENTS: Has Specimen Been Obtained/Collected? Y Procedure Result Verified Site MRSA DNA (NASAL SWAB) Final 06/30/17-1354 Specimen Positive for MRSA by DNA Probe RESULTS WERE ALSO CALLED TO [facility] INFECTION CONTROL ANSWERING MACHINE ON 06/30/17 BY [facility].Phoned results to RACHID PINTO on 06/30/17 at 1352 by Alanna Austin. Results were verbalized back to [facility]. Last 24 Hours Test 06/30/17 19:47 06/30/17 19:49 07/01/17 05:21 07/01/17 11:06 Bedside Glucose 130 mg/dl 145 mg/dl Free Thyroxine 1.07 ng/dl Thyroxine (T4) 3.5 mcg/dl White Blood Count 7.53 K/uL Red Blood Count 3.29 M/uL Hemoglobin 8.3 g/dL Hematocrit 27.4 % Mean Corpuscular Volume 83.3 fL Mean Corpuscular Hemoglobin 25.2 pg Mean Corpuscular Hemoglobin Concent 30.3 g/dl Platelet Count 204 K/uL Mean Platelet Volume 9.4 fL Neutrophils (%) (Auto) 65.1 % Lymphocytes (%) (Auto) 17.5 % Monocytes (%) (Auto) 10.2 % Eosinophils (%) (Auto) 6.5 % Basophils (%) (Auto) 0.4 % Neutrophils # (Auto) 4.90 K/uL Lymphocytes # (Auto) 1.32 K/uL Monocytes # (Auto) 0.77 K/uL Eosinophils # (Auto) 0.49 K/uL Basophils # (Auto) 0.03 K/uL RDW Standard Deviation 60.3 fL RDW Coefficient of Variation 19.8 % Immature Granulocyte % (Auto) 0.3 % Immature Granulocyte # (Auto) 0.02 K/uL Hypochromasia PRESENT Anisocytosis PRESENT Prothrombin Time 42.2 SECONDS Prothromb Time International Ratio 3.7 Sodium Level 138 mmol/L Potassium Level 4.1 mmol/L Chloride Level 104 mmol/L Carbon Dioxide Level 25 mmol/L Anion Gap 9.0 mmol/L Blood Urea Nitrogen 79 mg/dl Creatinine 2.88 mg/dl Est Creatinine Clear Calc Drug Dose 54.8 ml/min Estimated GFR () 26.8 Estimated GFR (Non- 23.2 BUN/Creatinine Ratio 27.4 Random Glucose 105 mg/dl Calcium Level 7.8 mg/dl Magnesium Level 2.0 mg/dl Iron Level 21 mcg/dl Total Iron Binding Capacity 174 mcg/dl Transferrin 142 mg/dl Transferrin % Saturation 11 % Ferritin 134.7 ng/ml Total Bilirubin 0.4 mg/dl Aspartate Amino Transf (AST/SGOT) 12 U/L Alanine Aminotransferase (ALT/SGPT) 11 U/L Alkaline Phosphatase 174 U/L Total Protein 7.5 gm/dl Albumin 2.1 gm/dl Globulin 5.4 gm/dl Albumin/Globulin Ratio 0.4 Test 07/01/17 16:00 Bedside Glucose 97 mg/dl Patient Name: MARICEL BILLY Unit Number: [id number] Dictated: 06/30/171406 Transcribed: 06/30/171406 [place] Printed Date/Time: [~ rep prt dt]/[~ rep prt tm] [~ rep ct labl] - [~ rep ct ivnm] [facility] [place] [address] Dictated: 06/30/171406 Transcribed: 06/30/171406 [facility] Printed Date/Time: [~ rep prt dt]/[~ rep prt tm] [~ rep ct labl] - [~ rep ct ivnm] RIGHT LOWER LEG CT CT DOSE: 1716.60 mGy.cm HISTORY: Right lower leg swelling. rule out compartment compartment syndrome,fasicitis,gas,abscess TECHNIQUE: Multiaxial CT images of the right lower leg were performed and reformatted in the sagittal and coronal plane without the use of contrast. A dose lowering technique was utilized adhering to the principles of ALARA. COMPARISON: Right lower leg CT 05/25/2017. FINDINGS: There is severe subcutaneous edema and skin thickening throughout the visualized right lower leg and foot. This is not significantly change compared to the prior study. There is no soft tissue gas identified at this time. Evaluation for an abscess is limited due to the lack of intravenous contrast. However, no loculated fluid collections identified. There is complete fatty atrophy of the visualized muscles of the right lower extremity. Small right knee effusion. No edema or fat stranding within the muscular compartments to suggest a fasciitis or myositis. Cortical thickening at the bases of the third and fourth metatarsals remains unchanged and may be due to an old fracture. There is also mild periosteal thickening at the mid to distal fibula which could be due to the chronic stasis. No acute fracture or dislocation within the visualized osseous structures. No bony destruction to suggest osteomyelitis at this time. Plantar heel spur. IMPRESSION: 1. Overall, no significant change compared the prior study. 2. Severe subcutaneous edema and skin thickening throughout the visualized right lower leg and foot. This favors diffuse edema or a cellulitis. No soft tissue gas identified. 3. No bony destruction to suggest osteomyelitis at this time. 4. Diffuse osteopenia and complete fatty atrophy of the visualized muscles of the right lower extremity are again noted. Electronically signed by: Kike Shelton M.D. 06/30/2017 2:16 PM Dictated Date/Time: 06/30/2017 2:07 PM The status of this report is Signed. Draft = Not yet reviewed or approved by Radiologist. Signed = Reviewed and approved by Radiologist. <AttendingPhy>Tonny Mason M.D.</AttendingPhy> <FamilyPhy>[facility] [place]< /FamilyPhy> <PrimaryPhy>[facility] [place]</PrimaryPhy> <UnitNumber>[id number]< /UnitNumber> <VisitNumber>[id number]</VisitNumber> <PatientName>MARICEL BILLY</PatientName> <DateOfBirth>1960</DateOfBirth> <Location>C.[facility]</ Location> <ServiceDate></ServiceDate> <MNE>ESINDI</MNE> <OrderingPhy>Tonny Mason M.D.</OrderingPhy> <OrderingPhyMNE>f rep ord dr spencer</OrderingPhyMNE> < DictatingPhyMNE>f rep dict dr spencer</DictatingPhyMNE> <CCListMNE>f rep ct mne</ CCListMNE> <AdmittingPhyMNE>f pt admit dr spencer</AdmittingPhyMNE> <AttendingPhyMNE >f pt attend dr spencer</AttendingPhyMNE> <ConsultingPhyMNE>f pt consult dr spencer</ConsultingPhyMNE> <FamilyPhyMNE>f pt fam dr spencer</FamilyPhyMNE> <OtherPhyMNE>f pt other dr spencer</OtherPhyMNE> < PrimaryPhyMNE>f pt prim care dr spencer</PrimaryPhyMNE> <ReferringPhyMNE>f pt referring dr spencer</ReferringPhyMNE> Assessment and Plan 56-year-old male with recurrent lower extremity cellulitis, severe chronic lower extremity lymphedema, diabetes mellitus presents with recurrent severe cellulitis, possibly with early vascular ischemia. Given multiple resistant organisms documented in the past, broad-spectrum coverage appropriate, and would recommend combination of daptomycin and imipenem. Recommend vascular surgery consultation. Will discuss with all involved. Will follow.
[2017-07-01] MEDS: DAPTOMYCIN IV SCH (20:35)
[2017-07-01] MEDS: DOCUSATE SODIUM/SENNA 50/8.6MG TAB PO SCH (20:43)
[2017-07-01] MEDS: TRAZODONE HCL 50 MG TAB PO SCH (20:44)
[2017-07-01] MEDS: TAMSULOSIN HCL 0.4 MG CAP PO SCH (20:44)
[2017-07-01] MEDS: ATORVASTATIN 40 MG TAB PO SCH (20:44)
[2017-07-02] MEDS: CHECK FENTANYL PATCH PLACEMENT SCH ×4 (00:04→23:53)
[2017-07-02] MEDS: ACETAMINOPHEN/CODEINE 300/30MG TAB PO PRN ×3 (00:19→21:18)
[2017-07-02 03:26] VITALS: BP 123/73; PULSE 68; TEMP 36.6; O2SAT 94
[2017-07-02] MEDS: IMIPENEM/CILASTATIN IV 500 MG in D5W 100ML IV SCH ×3 (04:05→21:29)
[2017-07-02] MEDS: LEVOTHYROXINE 25 MCG TAB PO SCH (06:03)
[2017-07-02] MEDS: ALBUMIN 25% 50 ML with FUROSEMIDE INJ 80 MG IV SCH ×6 (06:03→19:33)
[2017-07-02 06:24] LABS: INR 3.8 (0.9-1.1); PROTHROMBIN TIME (PATIENT) 42.9 SECONDS (9.0-12.0)
[2017-07-02 08:00] VITALS: BP 104/66; PULSE 80; TEMP 36.6; O2SAT 93
[2017-07-02 08:33] LABS: BUN/CREATININE RATIO 27.4 (10-20); CALCIUM 8.3 mg/dl (8.5-10.1); CREATININE 2.87 mg/dl (0.60-1.40)
[2017-07-02 08:40] LABS: MEAN CELL VOLUME 82.8 fL (80-100); MEAN CORPUSCULAR HEMOGLOBIN 25.4 pg (25-34); MEAN CORPUSCULAR HGB CONC 30.7 g/dl (32-36); MEAN PLATELET VOLUME 9.6 fL (7.4-10.4); PLATELET COUNT 242 K/uL (130-400); RED BLOOD COUNT 3.38 M/uL (4.7-6.1); WHITE BLOOD COUNT 7.99 K/uL (4.8-10.8)
[2017-07-02] MEDS: PREGABALIN 75 MG CAP PO SCH ×2 (09:05→21:28)
[2017-07-02] MEDS: CARVEDILOL 25 MG TAB PO SCH ×2 (09:06→21:21)
[2017-07-02] MEDS: URSODIOL 300 MG CAP PO SCH ×2 (09:06→21:22)
[2017-07-02] MEDS: PANTOprazole SOD 40 MG TAB PO SCH (09:06)
[2017-07-02] MEDS: NYSTATIN POWDER 15GM BTL EXT SCH (09:06)
[2017-07-02] MEDS: VENLAFAXINE HCL 37.5 MG TAB PO SCH (09:06)
[2017-07-02] MEDS: LORATADINE 10 MG TAB PO SCH (09:06)
[2017-07-02] MEDS: POTASSIUM CHLORIDE 10 MEQ TABCR PO SCH ×2 (09:07→17:30)
[2017-07-02] MEDS: INSULIN DETEMIR FLEXPEN/FLEX TOUCH 100 UNITS/ML 3ML SC SCH ×2 (09:11→21:28)
[2017-07-02] MEDS: INSULIN ASPART 100 UNITS/ML 3 ML PEN SC SCH ×4 (09:11→21:00)
[2017-07-02] MEDS ORDERED: NURSING VERBAL MED ORDER ONE (10:30)
[2017-07-02] MEDS: POLYETHYLENE (MIRALAX) 17 GM PACK PO SCH (10:49)
[2017-07-02 11:02] VITALS: BP 104/66; PULSE 80; TEMP 36.6; O2SAT 93
--- NOTE | 2017-07-02 13:54 | Progress Note ---
Medicine Progress Note Date & Time of Visit: Jul 02, 2017 at 11:41. Subjective Pt was seen and examined Sitting at the edge of the bed with no distress Pt said that the swelling seems to improve in the leg He said that now he is able to lift and move his legs where before he was unable to do it He said that wound slightly improve Denies any chest pain, palpitation, dizziness and SOB Objective Last 8 Hrs Date Time Temp Pulse Resp B/P (MAP) Pulse Ox O2 Delivery O2 Flow Rate FiO2 07/02/17 11:02 36.6 80 22 93 07/02/17 08:00 36.6 80 22 104/66 (79) 93 Room Air 07/02/17 08:00 Room Air Physical Exam: General- No acute distress Head- atraumatic Eyes- PERRL, EOMI ENT- oropharynx clear Neck- supple, no JVD Lungs- clear to auscultation and percussion Heart- regular rhythm; no murmur Abdomen- normal bowel sounds, soft Extremities-B/L LE Edema R>L.discoloration skin/toes nail.gangrenous of right big toes,darkened spots in all toes toes.wound with yellowish sloughing tissue. Neuro- alert, oriented x 3; PERRL, EOMI; no facial palsy Skin- warm & dry Laboratory Results: Last 24 Hours Test 07/01/17 16:00 07/01/17 19:57 07/02/17 05:51 07/02/17 06:43 Bedside Glucose 97 mg/dl 129 mg/dl 100 mg/dl White Blood Count 7.99 K/uL Red Blood Count 3.38 M/uL Hemoglobin 8.6 g/dL Hematocrit 28.0 % Mean Corpuscular Volume 82.8 fL Mean Corpuscular Hemoglobin 25.4 pg Mean Corpuscular Hemoglobin Concent 30.7 g/dl RDW Standard Deviation 59.3 fL RDW Coefficient of Variation 19.8 % Platelet Count 242 K/uL Mean Platelet Volume 9.6 fL Prothrombin Time 42.9 SECONDS Prothromb Time International Ratio 3.8 Sodium Level 141 mmol/L Potassium Level 4.0 mmol/L Chloride Level 104 mmol/L Carbon Dioxide Level 26 mmol/L Anion Gap 11.0 mmol/L Blood Urea Nitrogen 79 mg/dl Creatinine 2.87 mg/dl Est Creatinine Clear Calc Drug Dose 55.0 ml/min Estimated GFR () 26.9 Estimated GFR (Non- 23.3 BUN/Creatinine Ratio 27.4 Random Glucose 103 mg/dl Calcium Level 8.3 mg/dl Test 07/02/17 11:34 Bedside Glucose 129 mg/dl Assessment & Plan This is a 56yo M with a PMH of HTN, DM II, h/o chronic R DVT, 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 Bilateral lower extremity swelling: Multifactorial with h/o lymphedema, CHF, CKD, DM type 2 Continue IV lasix 80 BID with albumin Monitor I/O nephrology on board 07/02 Lasix changed to 80mg TID Continue monitor I/Os Has been 2L negative On 1.5L fluid restriction Continue monitor renal function Severe BLE cellulitis: H/o chronic LE cellulitis with antibiotic resistance, RLE > LLE Grew multiple resistant organisms in the past Multiple hospital admission Worsening as per patient CT LE showed No evidence of abscess formation, drainable fluid collection, or necrotizing fascitis Surgery was consulted and no surgical intervention at this time from surgery team Vascular surgery consulted waiting for input Infectious disease on board recommended combination of daptomycin and imipenem Ortho consulted recommended no surgical intervention at this time Wound care consult Continue daily wound care Chronic systolic/diastolic HF: Asymptomatic CXR showed mild central pulmonary vascular congestion without overt edema. Continue 80mg IV Lasix TID with albumin Last Echo in Mar 2017 showed EF of 55-60%, mild concentric LVH, left atrium severely dilated Continue 1.5L fluid restriction Continue Daily I/O DM II: Hgb a1c of 7.7 in May 2017 On levemir Continue Insulin coverage Continue monitor BS Chronic A Fib: rate is controlled INR 3.8 today Continue holding Coumadin Continue monitor lNR BART on CKD Stage IV: Creatine on admission 2.85 Baseline GFR ~30, Cr 2.4 Creatine 2.87 Mostly creatine will worsening due to IV lasix Consult nephrology Continue monitor BMP Stable H/o R DVT/PE: S/p IVC filter Hold today dose coumadin INR 3.8 HTN: Stable Continue home meds Hypothyroidism: TSH elevated to 6.3 Levothyroxine increased to 37.5 DVT px Coumadin on hold INR 3.8 today CODE STATUS FULL CODE DISPOSITION Continue IV abx Will transfer to medical Consultants: Nephro Ortho Surgery Vascular surgery wound care Current Inpatient Medications: Current Inpatient Medications Medications (Trade) Dose Ordered Sig/Miguel Route Start Time Stop Time Status Last Admin Dose Admin Glucose (Glucose 40% Gel) 15-30 GRAMS 15 GRAMS... UD PRN PO 06/30/17 14:30 07/30/17 14:29 Glucose (Glucose Chew Tab) 4-8 Tablets 4 Tabl... UD PRN PO 06/30/17 14:30 07/30/17 14:29 Dextrose (Dextrose 50% 50ML Syringe) 25-50ML OF 50% DW IV FOR... UD PRN IV 06/30/17 14:30 07/30/17 14:29 Glucagon (Glucagon Inj) 1 mg UD PRN SQ 06/30/17 14:30 07/30/17 14:29 Miscellaneous Information (Consult Glycemic Management Pharmacy) 1 ea UD PRN N/A 06/30/17 14:43 07/30/17 14:42 Insulin Aspart (novoLOG ASPART) SLIDING SCALE ACHS SC 06/30/17 16:15 07/30/17 16:14 07/02/17 12:39 3 UNITS Insulin Detemir (Levemir Flexpen/ FlexTouch) 10 units BID SC 06/30/17 21:00 07/30/17 20:59 07/02/17 09:11 10 UNITS Acetaminophen/ Codeine Phosphate (Tylenol w/ Codeine #3 Tab) 1 tab Q6H PRN PO 06/30/17 15:30 07/30/17 15:29 07/02/17 09:05 1 TAB Albuterol (Ventolin Hfa Inhaler) 2 puffs Q6H PRN INH 06/30/17 15:30 07/30/17 15:29 Atorvastatin Calcium (Lipitor Tab) 80 mg HS PO 06/30/17 21:00 07/30/17 20:59 07/01/17 20:44 80 MG Carvedilol (Coreg Tab) 25 mg BID PO 06/30/17 21:00 07/30/17 20:59 07/02/17 09:06 25 MG Hydroxyzine HCl (Vistaril Tab) 25 mg QID PRN PO 06/30/17 15:30 07/30/17 15:29 07/02/17 09:06 25 MG Levothyroxine Sodium (Synthroid Tab) 25 mcg DAILYBB PO 07/01/17 06:00 07/31/17 05:59 07/02/17 06:03 25 MCG Loratadine (Claritin Tab) 10 mg DAILY PO 07/01/17 09:00 07/31/17 08:59 07/02/17 09:06 10 MG Magnesium Hydroxide (Milk Of Magnesia Susp) 30 ml DAILY PRN PO 06/30/17 15:30 07/30/17 15:29 Nitroglycerin (Nitrostat Tab) 0.4 mg UD PRN UT 06/30/17 15:30 07/30/17 15:29 Nystatin (Mycostatin Powder) 1 appln DAILY EXT 07/01/17 09:00 07/31/17 08:59 07/02/17 09:06 1 APPLN Ondansetron HCl (Zofran Tab) 4 mg Q8 PRN PO 06/30/17 15:30 07/30/17 15:29 Pregabalin (Lyrica Cap) 75 mg BID PO 06/30/17 21:00 07/30/17 20:59 07/02/17 09:05 75 MG Senna/Docusate Sodium (Senokot S Tab) 2 tab HS PO 06/30/17 21:00 07/30/17 20:59 07/01/17 20:43 2 TAB Tamsulosin HCl (Flomax Cap) 0.4 mg HS PO 06/30/17 21:00 07/30/17 20:59 07/01/17 20:44 0.4 MG Trazodone HCl (Desyrel Tab) 50 mg HS PO 06/30/17 21:00 07/30/17 20:59 07/01/17 20:44 50 MG Ursodiol (Actigall Cap) 300 mg BID PO 06/30/17 21:00 07/30/17 20:59 07/02/17 09:06 300 MG Venlafaxine HCl (effeXOR TAB) 75 mg QAM PO 07/01/17 09:00 07/31/17 08:59 07/02/17 09:06 75 MG Pantoprazole Sodium (Protonix Tab) 40 mg DAILY PO 07/01/17 09:00 07/31/17 08:59 07/02/17 09:06 40 MG Miscellaneous Information (Check Fentanyl Patch Placement) 1 ea QS N/A 07/01/17 00:00 07/31/17 00:00 07/02/17 09:07 1 EA Fentanyl (Duragesic Patch) 25 mcg Q72H TD 07/03/17 08:00 07/17/17 07:59 Miscellaneous (Fentanyl Patch Remove & Waste) 1 ea Q3D@0759 N/A 07/03/17 07:59 08/02/17 07:58 Daptomycin (Consult) 1 ea UD PRN N/A 06/30/17 18:35 07/30/17 18:34 Daptomycin 800 mg/ Syringe 16 ml @ 8 mls/min Q24H IV 06/30/17 19:00 07/10/17 18:59 07/01/17 20:35 8 MLS/MIN Imipenem/ Cilastatin Sodium 500 mg/Dextrose 110 ml @ 110 mls/hr Q8H IV 06/30/17 20:00 07/10/17 19:59 07/02/17 04:05 110 MLS/HR Imipenem/ Cilastatin Sodium (Consult) 1 ea UD PRN N/A 06/30/17 18:45 07/30/17 18:44 Furosemide 80 mg/ Albumin Human 58 ml @ 54 mls/hr TID@0600,1200,1800 IV 07/01/17 18:00 07/04/17 17:59 Future hold 07/02/17 12:20 54 MLS/HR Potassium Chloride (Klor-Con M10) 10 meq BIDM PO 07/01/17 16:45 07/31/17 16:44 07/02/17 09:07 10 MEQ Iron Sucrose 100 mg/Sodium Chloride 105 ml @ 420 mls/hr Q24H IV 07/01/17 16:00 07/03/17 16:14 07/01/17 15:44 420 MLS/HR Polyethylene (Miralax Powder Packet) 17 gm QAM PO 07/02/17 11:00 08/01/17 10:59 07/02/17 10:49 17 GM
[2017-07-02 14:36] VITALS: BP 132/76; PULSE 64; TEMP 36.4; O2SAT 96
[2017-07-02] MEDS: IRON SUCROSE INJ 100 MG in SODIUM CHLORIDE 0.9% 100ML 100 ML IV SCH (16:07)
[2017-07-02] MEDS: MUPIROCIN 2% OINT 22 GM TUBE EXT SCH (21:19)
[2017-07-02] MEDS: DAPTOMYCIN IV SCH (21:19)
[2017-07-02] MEDS: TRAZODONE HCL 50 MG TAB PO SCH (21:21)
[2017-07-02] MEDS: TAMSULOSIN HCL 0.4 MG CAP PO SCH (21:22)
[2017-07-02] MEDS: ATORVASTATIN 40 MG TAB PO SCH (21:22)
[2017-07-02] MEDS: DOCUSATE SODIUM/SENNA 50/8.6MG TAB PO SCH (21:23)
[2017-07-02 21:33] VITALS: BP 139/76; PULSE 69; PULSE 80; TEMP 36.8; O2SAT 96
[2017-07-02 22:57] VITALS: O2SAT 96
[2017-07-03] MEDS: IMIPENEM/CILASTATIN IV 500 MG in D5W 100ML IV SCH ×3 (05:34→21:14)
[2017-07-03] MEDS: LEVOTHYROXINE 25 MCG TAB PO SCH (05:36)
[2017-07-03] MEDS: ALBUMIN 25% 50 ML with FUROSEMIDE INJ 80 MG IV SCH ×6 (05:36→18:15)
[2017-07-03] MEDS: ACETAMINOPHEN/CODEINE 300/30MG TAB PO PRN ×3 (05:39→19:42)
[2017-07-03 07:19] VITALS: BP 101/56; PULSE 63; TEMP 36.9; O2SAT 96
[2017-07-03] MEDS: FENTANYL PATCH REMOVE & WASTE SCH (07:59)
[2017-07-03 08:00] VITALS: O2SAT 96
[2017-07-03 08:10] LABS: HEMATOCRIT 31.3 % (42-52); MEAN CELL VOLUME 82.8 fL (80-100); MEAN CORPUSCULAR HEMOGLOBIN 25.1 pg (25-34); MEAN CORPUSCULAR HGB CONC 30.4 g/dl (32-36); MEAN PLATELET VOLUME 9.4 fL (7.4-10.4); PLATELET COUNT 246 K/uL (130-400); RED BLOOD COUNT 3.78 M/uL (4.7-6.1); WHITE BLOOD COUNT 7.39 K/uL (4.8-10.8)
[2017-07-03 08:21] LABS: INR 3.7 (0.9-1.1); PROTHROMBIN TIME (PATIENT) 41.8 SECONDS (9.0-12.0)
[2017-07-03 08:35] LABS: BUN/CREATININE RATIO 25.6 (10-20); CALCIUM 8.5 mg/dl (8.5-10.1); CREATININE 2.93 mg/dl (0.60-1.40); POTASSIUM 3.8 mmol/L (3.5-5.1)
[2017-07-03] MEDS: CHECK FENTANYL PATCH PLACEMENT SCH ×3 (09:00→23:53)
--- NOTE | 2017-07-03 09:00 | Pharmacy Progress Note ---
Glycemic Control Progress Note Date of Service Jul 03, 2017. Scope Glycemic Pharmacist consulted for glycemic control to write orders per [facility] inpatient glycemic control protocol. Objective Accuchecks BSG (last 24hrs): Test 07/02/17 11:34 07/02/17 17:23 07/02/17 20:34 07/03/17 07:57 Bedside Glucose 129 mg/dl (70-99) 110 mg/dl (70-99) 139 mg/dl (70-99) Random Glucose 108 mg/dl (70-99) Recent Pertinent Medications The patient is currently receiving: * Basal insulin: Lantus 10 units every 12 hours * Correctional Insulin: Novolog Correction per scale ACHS Goal Range: Low 110 mg/dL - High 140 mg/dL Correction Factor: 25 mg/dL/unit * Prandial insulin: Per carb ratio of 1 unit per 8 grams CHO consumed Outpatient Anti-Diabetic Meds Levemir 15 units twice daily plus Novolog (CF of 25 mg/dL/unit and CR of 1 unit per every 10 grams of carbohydrates) Assessment & Plan ASSESSMENT: * See progress note from 06/30/17 for more background info, in short: * Pt receiving SQ basal bolus insulin regimen for hyperglycemia secondary to baseline DM (outpatient regimen on hold), infection (diabetic foot infection currently on Primaxin and Cubicin) * Patient is currently receiving an average of 30 units of insulin per day * 20 units of basal insulin * 10 units of prandial/correctional insulin * BSGs ranging 100 - 139 mg/dl over the past 24hrs * Changes needed to insulin regimen: * AM Fasting BSG = 108 mg/dl. This is within goal range for patient based on inpatient targets and co-morbidities. This is similar to yesterday's fasting blood sugar of 100 mg/dL and the previous day's as well. Continue current regimen as providing adequate fasting blood sugars. * Post-prandial BSGs are in range therefore no changes needed to CF/CR. * Total daily dose = ~30-40 units. Continue current regimen PLAN FOR INPATIENT GLYCEMIC CONTROL: * Continuing Lantus 10 units SQ BID * Continuing correction factor of 25 mg/dl/unit * Continuing carb ratio of 1 unit per 8 grams CHO consumed * Continuing goal range of Low 110 mg/dL - High 140 mg/dL RECOMMENDATIONS FOR DISCHARGE: * Patient's HbA1C goal is around 7.5-8.0% according to Elements of Diabetes Care Scoring Scale....currently Hb1C is at goal so therefore continue current regimen at home. * Please note that the plan above was derived based on current level of insulin resistance and hospital stress. These recommendations are appropriate for inpatient admission only. Plan of care upon discharge will need to be reassessed to avoid potential outpatient hypo/hyperglycemia. Thank you.
[2017-07-03] MEDS: INSULIN ASPART 100 UNITS/ML 3 ML PEN SC SCH ×4 (09:06→21:25)
[2017-07-03] MEDS: INSULIN DETEMIR FLEXPEN/FLEX TOUCH 100 UNITS/ML 3ML SC SCH ×2 (09:07→21:26)
[2017-07-03] MEDS: FENTANYL 25 MCG/HR TDSY TD SCH (09:09)
[2017-07-03] MEDS: POLYETHYLENE (MIRALAX) 17 GM PACK PO SCH (09:14)
[2017-07-03] MEDS: VENLAFAXINE HCL 37.5 MG TAB PO SCH (09:15)
[2017-07-03] MEDS: CARVEDILOL 25 MG TAB PO SCH ×2 (09:15→19:43)
[2017-07-03] MEDS: URSODIOL 300 MG CAP PO SCH ×2 (09:16→19:33)
[2017-07-03] MEDS: PANTOprazole SOD 40 MG TAB PO SCH (09:17)
[2017-07-03] MEDS: NYSTATIN POWDER 15GM BTL EXT SCH (09:17)
[2017-07-03] MEDS: MUPIROCIN 2% OINT 22 GM TUBE EXT SCH ×2 (09:17→19:30)
[2017-07-03] MEDS: POTASSIUM CHLORIDE 10 MEQ TABCR PO SCH ×2 (09:17→17:31)
[2017-07-03] MEDS: LORATADINE 10 MG TAB PO SCH (09:18)
[2017-07-03] MEDS: PREGABALIN 75 MG CAP PO SCH ×2 (09:24→19:41)
--- NOTE | 2017-07-03 10:19 | Medical Consult ---
Consultation Note Date of Service Jul 03, 2017. Consultation Note Chief Complaint Cellulitis, Hx DVT, leg pain History of Present Illness The patient is a 56 year old male with multiple medical problems, including hx of DVT and IVC filter insertion in remote past, seen in consultation today for severe RLE pain/infection. Pt admits multiple infections in RLE in past. Vascular service has been consulted on this pt in past. 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 Per records, pt admitted with cellulitis multiple times over past few months. Pain has been difficult to control. Pt states has tried unna boots in past, as well as PATRICIA wraps to BLE for edema, but they cause him to have worsening heart failure. Allergies Coded Allergies: Cephalosporins (Verified Allergy, Unknown, increased HR vs sick to stomach , pt unsure abx allergy to?, 05/05/17) Clindamycin (Verified Allergy, Unknown, increased HR vs sick to stomach, pt unsure abx allergy to?, 05/05/17) Iodinated Diagnostic Agents (Verified Allergy, Unknown, unknown, 04/04/17) Penicillins (Unverified Allergy, Unknown, increased HR vs sick to stomach , pt unsure abx allergy to?, 05/05/17) Perflutren (Verified Allergy, Unknown, PERFLUTREN LIPID MICROSPHERES, 04/04) Home Medications Scheduled Amoxicillin (Amoxil), 500 MG PO TID Apixaban (Eliquis), 5 MG PO BID Atorvastatin (Lipitor), 80 MG PO HS Carvedilol (Coreg), 25 MG PO BID Ciprofloxacin Hcl (Cipro), 500 MG PO BID Esomeprazole Magnesium (Nexium), 40 MG PO DAILY Fentanyl (Fentanyl), 12 MCG TOP [id number] Insulin Aspart (Novolog), 15 UNITS SQ TIDM Insulin Detemir (Levemir), 35 UNITS SQ BID Loratadine (Claritin), 10 MG PO DAILY Melatonin (Melatonin), 10 MG PO HS Multiple Vitamins W/ Minerals (Theragran-M), 1 TAB PO QAM Polyethylene Glycol 3350 (Miralax), 17 GM PO DAILY Pregabalin (Lyrica), 75 MG PO BID Sennosides-Docusate Sodium (Sennalax-S), 2 TABS PO HS Trazodone Hcl (Trazodone), 50 MG PO HS Ursodiol (Ursodiol), 300 MG PO BID Venlafaxine Hcl (Effexor), 75 MG PO QAM Scheduled PRN Acetaminophen (Tylenol), 500 MG PO Q4 PRN for Pain or Fever Acetaminophen (Tylenol), 650 MG NV Q6H PRN for Pain Acetaminophen/Codeine (Tylenol W/Codeine #3), 1 TAB PO Q6H PRN for Pain Albuterol Hfa (Ventolin Hfa), 2 PUFFS INH Q6H PRN for Wheezing Bisacodyl (Dulcolax), 1 SUPP NV Q24H PRN for no bm past 2 days Dextrose (Diabetic Use) (Insta-Glucose), 1 APPLN PO UD PRN for HYPOGLYCEMIA PROTOCOL Hydroxyzine Hcl (Atarax), 25 MG PO QID PRN for Itching Magnesium Hydroxide (Milk Of Magnesia), 30 ML PO UD PRN for Constipation Nitroglycerin (Nitrostat), 0.4 MG UT UD PRN for Chest Pain Ondansetron Hcl (Zofran), 4-8 MG PO Q8 PRN for Nausea Miscellaneous Medications Glucagon (Glucagon Emergency Kit) Problem List Medical Problems: (1) CAD (coronary artery disease) (2) Chronic a-fib (3) Chronic CHF (4) Chronic pain (5) CKD (chronic kidney disease), stage IV (6) Depression (7) Diabetes mellitus, type II (8) Dyslipidemia (9) H/o sacral fracture (10) Heart attack (11) History of pulmonary embolus (PE) (12) History of stroke (13) HTN (hypertension) (14) Idiopathic cardiomyopathy (15) Ischemic cardiomyopathy (16) Lymphedema (17) Obesity, morbid, BMI 40.0-49.9 (18) Obstructive hydrocephalus (19) Pulmonary embolism (20) Right leg DVT (21) Sleep apnea (22) Venous insufficiency Surgical Problems: (1) H/O eye surgery (2) History of brain shunt (3) History of cholecystectomy (4) S/p pacemaker defibrillator (5) S/P spinal surgery (6) S/p vein filter Surgical / Medical History Hx Cardiac Surgery: Yes (AICD, IVC filters) Hx Abdominal Surgery: Yes (kierra) Hx Cancer Surgery: Yes (R eyelid) Hx Thoracic Surgery: No Hx Orthopedic: Yes (spine surgery x2, hydrocephalus as , R ankle surg) Hx Urinary Tract Surgery: No Past Medical/Surgical History: CHF, Diabetes, Heart Disease, High Cholesterol, Hypertension Family History FH: CAD (coronary artery disease) FATHER ( of [place] late 60's) Social History Smoking Status: Never Smoker Hx Tobacco Use In Past Year?: No Hx Alcohol Use - Type & Amnt: No Hx Substance Use -Type & Amnt: No ROS: Vascular Con v2 Review of Systems Additional Comments: Pt unable to stay awake to answer questions. Exam: Vascular Con v2 Physical Exam Constitutional: General Apperance: well-nourished, well-developed, obese Level of Distress: NAD (sleeping), chronically ill Psychiatric: Mental Status: lethargic Head: normocephalic, atraumatic Eyes: EOM: EOMI ENMT: normal ENT inspection, hearing grossly normal Neck: supple, trachea midline Lungs: Respiratory effort: no dyspnea Auscultation: no wheezing, no rales/crackles, no rhonchi Cardiovascular: Apical Impulse: not displaced Heart Auscultation: no rubs, no gallops, pertinent finding (irregular) Peripheral Pulses: Pulses: full and equal, in all extremities except if noted Bruits: none appreciated Carotid Pulse: normal on the left, normal on the right Brachial Pulses: normal on the left, normal on the right Radial Pulse: normal on the left, normal on the right Femoral Pulse: normal on the left, normal on the right Posterior Tibialis Pulse: Nonpalpable BLE d/t edema, toes pink, warm, + brisk cap refill. Dorsalis Pedis Pulse: Nonpalpable BLE d/t edema, toes pink, warm, + brisk cap refill Abdomen: Bowel Sounds: normal Inspection & Palpation: soft, non-distended Musculoskeletal: normal strength (5/5 throughout), normal tone Extremities: Upper Right: no cyanosis, no edema, no varicosities, no palpable cord Upper Left: no cyanosis, no edema, no varicosities Lower Right: no cyanosis, no varicosities, +4 edema, with skin sloughing, and shallow open areas, + erythema and mild odor. Lower Left: no cyanosis, no varicosities, +4 edema, medial heel with pressure blister. tamayo area with moderate erythema, A&P: Vascular Con v2 Assessment and Plan ASSESSMENT and PLAN: BLE pain/cellulitis Hx DVT BLE Hx IVC filter insertion IVC and iliac v occlusion- chronic Pt not candidate for vascular surgery intervention, as all venous concerns are chronic. Feet appear well perfused and pt is nonambulatory. No indications for vascular surgery intervention at this time. DO recommend pt to have thin gauze dressings placed to open areas and then have PATRICIA wraps to RLE at least, change q day or sooner if saturated. L heel needs protection with waffle boots vs heel elevation. Please call if needed.
--- NOTE | 2017-07-03 11:33 | Infectious Disease Progress Nt ---
Progress Note Date of Service Jul 03, 2017. Subjective Pt evaluation today including: conversation w/ patient, physical exam, chart review, lab review, review of studies, conversation w/ nurse consultant, review of inpatient medication list Vascular surgery follow-up noted. No intervention planned. Patient states leg swelling slightly better. Remains afebrile. Blood cultures remain negative. All Other Systems: Reviewed and Negative Medications Current Inpatient Medications Medications (Trade) Dose Ordered Sig/Miguel Route Start Time Stop Time Status Last Admin Dose Admin Glucose (Glucose 40% Gel) 15-30 GRAMS 15 GRAMS... UD PRN PO 06/30/17 14:30 07/30/17 14:29 Glucose (Glucose Chew Tab) 4-8 Tablets 4 Tabl... UD PRN PO 06/30/17 14:30 07/30/17 14:29 Dextrose (Dextrose 50% 50ML Syringe) 25-50ML OF 50% DW IV FOR... UD PRN IV 06/30/17 14:30 07/30/17 14:29 Glucagon (Glucagon Inj) 1 mg UD PRN SQ 06/30/17 14:30 07/30/17 14:29 Miscellaneous Information (Consult Glycemic Management Pharmacy) 1 ea UD PRN N/A 06/30/17 14:43 07/30/17 14:42 Insulin Aspart (novoLOG ASPART) SLIDING SCALE ACHS SC 06/30/17 16:15 07/30/17 16:14 07/03/17 09:06 3 UNITS Insulin Detemir (Levemir Flexpen/ FlexTouch) 10 units BID SC 06/30/17 21:00 07/30/17 20:59 07/03/17 09:07 10 UNITS Acetaminophen/ Codeine Phosphate (Tylenol w/ Codeine #3 Tab) 1 tab Q6H PRN PO 06/30/17 15:30 07/30/17 15:29 07/03/17 05:39 1 TAB Albuterol (Ventolin Hfa Inhaler) 2 puffs Q6H PRN INH 06/30/17 15:30 07/30/17 15:29 Atorvastatin Calcium (Lipitor Tab) 80 mg HS PO 06/30/17 21:00 07/30/17 20:59 07/02/17 21:22 80 MG Carvedilol (Coreg Tab) 25 mg BID PO 06/30/17 21:00 07/30/17 20:59 07/03/17 09:15 25 MG Hydroxyzine HCl (Vistaril Tab) 25 mg QID PRN PO 06/30/17 15:30 07/30/17 15:29 07/02/17 09:06 25 MG Levothyroxine Sodium (Synthroid Tab) 25 mcg DAILYBB PO 07/01/17 06:00 07/31/17 05:59 07/03/17 05:36 25 MCG Loratadine (Claritin Tab) 10 mg DAILY PO 07/01/17 09:00 07/31/17 08:59 07/03/17 09:18 10 MG Magnesium Hydroxide (Milk Of Magnesia Susp) 30 ml DAILY PRN PO 06/30/17 15:30 07/30/17 15:29 Nitroglycerin (Nitrostat Tab) 0.4 mg UD PRN UT 06/30/17 15:30 07/30/17 15:29 Nystatin (Mycostatin Powder) 1 appln DAILY EXT 07/01/17 09:00 07/31/17 08:59 07/03/17 09:17 1 APPLN Ondansetron HCl (Zofran Tab) 4 mg Q8 PRN PO 06/30/17 15:30 07/30/17 15:29 Pregabalin (Lyrica Cap) 75 mg BID PO 06/30/17 21:00 07/30/17 20:59 07/03/17 09:24 75 MG Senna/Docusate Sodium (Senokot S Tab) 2 tab HS PO 06/30/17 21:00 07/30/17 20:59 07/02/17 21:23 2 TAB Tamsulosin HCl (Flomax Cap) 0.4 mg HS PO 06/30/17 21:00 07/30/17 20:59 07/02/17 21:22 0.4 MG Trazodone HCl (Desyrel Tab) 50 mg HS PO 06/30/17 21:00 07/30/17 20:59 07/02/17 21:21 50 MG Ursodiol (Actigall Cap) 300 mg BID PO 06/30/17 21:00 07/30/17 20:59 07/03/17 09:16 300 MG Venlafaxine HCl (effeXOR TAB) 75 mg QAM PO 07/01/17 09:00 07/31/17 08:59 07/03/17 09:15 75 MG Pantoprazole Sodium (Protonix Tab) 40 mg DAILY PO 07/01/17 09:00 07/31/17 08:59 07/03/17 09:17 40 MG Miscellaneous Information (Check Fentanyl Patch Placement) 1 ea QS N/A 07/01/17 00:00 07/31/17 00:00 07/03/17 09:00 1 EA Fentanyl (Duragesic Patch) 25 mcg Q72H TD 07/03/17 08:00 07/17/17 07:59 07/03/17 09:09 25 MCG Miscellaneous (Fentanyl Patch Remove & Waste) 1 ea Q3D@0759 N/A 07/03/17 07:59 08/02/17 07:58 07/03/17 07:59 1 EA Daptomycin (Consult) 1 ea UD PRN N/A 06/30/17 18:35 07/30/17 18:34 Daptomycin 800 mg/ Syringe 16 ml @ 8 mls/min Q24H IV 06/30/17 19:00 07/10/17 18:59 07/02/17 21:19 8 MLS/MIN Imipenem/ Cilastatin Sodium 500 mg/Dextrose 110 ml @ 110 mls/hr Q8H IV 06/30/17 20:00 07/10/17 19:59 07/03/17 05:34 110 MLS/HR Imipenem/ Cilastatin Sodium (Consult) 1 ea UD PRN N/A 06/30/17 18:45 07/30/17 18:44 Furosemide 80 mg/ Albumin Human 58 ml @ 54 mls/hr TID@0600,1200,1800 IV 07/01/17 18:00 07/04/17 17:59 Future hold 07/03/17 05:36 54 MLS/HR Potassium Chloride (Klor-Con M10) 10 meq BIDM PO 07/01/17 16:45 07/31/17 16:44 07/03/17 09:17 10 MEQ Iron Sucrose 100 mg/Sodium Chloride 105 ml @ 420 mls/hr Q24H IV 07/01/17 16:00 07/03/17 16:14 07/02/17 16:07 420 MLS/HR Polyethylene (Miralax Powder Packet) 17 gm QAM PO 07/02/17 11:00 08/01/17 10:59 07/03/17 09:14 17 GM Mupirocin (Bactroban 2% Oint) 1 appln BID EXT 07/02/17 21:00 07/07/17 20:59 07/03/17 09:17 1 APPLN Objective Vital Signs Date Time Temp Pulse Resp B/P (MAP) Pulse Ox O2 Delivery O2 Flow Rate FiO2 07/03/17 07:19 36.9 63 22 101/56 (71) 96 Room Air 07/02/17 22:57 96 Room Air 07/02/17 21:33 36.8 69 18 139/76 (97) 96 Room Air 80 07/02/17 16:00 Room Air 07/02/17 14:36 36.4 64 16 132/76 (94) 96 Room Air Physical Exam General Appearance: WD/WN, no apparent distress, + obese Eyes: normal inspection, sclerae normal ENT: normal ENT inspection, pharynx normal Neck: supple, no adenopathy, trachea midline Respiratory/Chest: chest non-tender, lungs clear, normal breath sounds, no respiratory distress Cardiovascular: regular rate, rhythm, no gallop, no murmur Abdomen: normal bowel sounds, non tender, soft, no organomegaly Extremities: + inflammation, + swelling Neurologic/Psychiatric: alert, oriented x 3 Skin: normal color, + pertinent finding (Slightly improved right foot and lower leg) Lymphatic: no adenopathy Laboratory Results Last 24 Hours Test 07/02/17 11:34 07/02/17 17:23 07/02/17 20:34 07/03/17 07:57 Bedside Glucose 129 mg/dl 110 mg/dl 139 mg/dl White Blood Count 7.39 K/uL Red Blood Count 3.78 M/uL Hemoglobin 9.5 g/dL Hematocrit 31.3 % Mean Corpuscular Volume 82.8 fL Mean Corpuscular Hemoglobin 25.1 pg Mean Corpuscular Hemoglobin Concent 30.4 g/dl RDW Standard Deviation 59.3 fL RDW Coefficient of Variation 19.6 % Platelet Count 246 K/uL Mean Platelet Volume 9.4 fL Prothrombin Time 41.8 SECONDS Prothromb Time International Ratio 3.7 Sodium Level 138 mmol/L Potassium Level 3.8 mmol/L Chloride Level 103 mmol/L Carbon Dioxide Level 25 mmol/L Anion Gap 10.0 mmol/L Blood Urea Nitrogen 75 mg/dl Creatinine 2.93 mg/dl Est Creatinine Clear Calc Drug Dose 53.9 ml/min Estimated GFR () 26.3 Estimated GFR (Non- 22.7 BUN/Creatinine Ratio 25.6 Random Glucose 108 mg/dl Calcium Level 8.5 mg/dl Assessment and Plan 56-year-old male with recurrent lower extremity cellulitis, severe chronic lower extremity lymphedema, diabetes mellitus presents with recurrent severe cellulitis. patient be continued on broad-spectrum antibiotics, with length of therapy to be determined by clinical response. Will follow.
[2017-07-03 15:43] VITALS: BP 110/62; PULSE 63; TEMP 36.5; O2SAT 97
[2017-07-03] MEDS ORDERED: FENTANYL PATCH REMOVE & WASTE SCH (15:59)
--- NOTE | 2017-07-03 17:23 | Nephrology Progress Note ---
Nephrology Progress Note Date of Service: Jul 03, 2017. Subjective cont to feel he is getting fluid off; declines trujillo; ongoing fatigue; stable chronic back pain; no n/v or constipation or dyspnea; seen on rounds at 0930 today Objective Date Time Temp Pulse Resp B/P (MAP) Pulse Ox O2 Delivery O2 Flow Rate FiO2 07/03/17 15:43 36.5 63 18 110/62 (78) 97 Room Air 07/03/17 08:00 96 Room Air 07/03/17 07:19 36.9 63 22 101/56 (71) 96 Room Air 07/02/17 22:57 96 Room Air 07/02/17 21:33 36.8 69 18 139/76 (97) 96 Room Air 80 Physical Exam: GENERAL: Awake, alert, oriented x3. lying on L side EYES: Scleral icterus. HEENT: Moist mucous membranes. NECK: Supple. PULMONARY: Clear to auscultation. CARDIAC: Regular rate. ABDOMEN: Bowel sounds positive, soft, nontender. no trujillo EXTREMITIES: Right leg with significant weeping/induration/redness, +4 edema. Left leg, +3 edema. unable to tell on exam if lessening NEUROLOGICALLY: Does have some residual right-sided weakness. DERMATOLOGIC: Chronic weeping ulcers BL lower extremities. Current Inpatient Medications Medications (Trade) Dose Ordered Sig/Miguel Route Start Time Stop Time Status Last Admin Dose Admin Glucose (Glucose 40% Gel) 15-30 GRAMS 15 GRAMS... UD PRN PO 06/30/17 14:30 07/30/17 14:29 Glucose (Glucose Chew Tab) 4-8 Tablets 4 Tabl... UD PRN PO 06/30/17 14:30 07/30/17 14:29 Dextrose (Dextrose 50% 50ML Syringe) 25-50ML OF 50% DW IV FOR... UD PRN IV 06/30/17 14:30 07/30/17 14:29 Glucagon (Glucagon Inj) 1 mg UD PRN SQ 06/30/17 14:30 07/30/17 14:29 Miscellaneous Information (Consult Glycemic Management Pharmacy) 1 ea UD PRN N/A 06/30/17 14:43 07/30/17 14:42 Insulin Aspart (novoLOG ASPART) SLIDING SCALE ACHS SC 06/30/17 16:15 07/30/17 16:14 07/03/17 12:43 5 UNITS Insulin Detemir (Levemir Flexpen/ FlexTouch) 10 units BID SC 06/30/17 21:00 07/30/17 20:59 07/03/17 09:07 10 UNITS Acetaminophen/ Codeine Phosphate (Tylenol w/ Codeine #3 Tab) 1 tab Q6H PRN PO 06/30/17 15:30 07/30/17 15:29 07/03/17 12:44 1 TAB Albuterol (Ventolin Hfa Inhaler) 2 puffs Q6H PRN INH 06/30/17 15:30 07/30/17 15:29 Atorvastatin Calcium (Lipitor Tab) 80 mg HS PO 06/30/17 21:00 07/30/17 20:59 07/02/17 21:22 80 MG Carvedilol (Coreg Tab) 25 mg BID PO 06/30/17 21:00 07/30/17 20:59 07/03/17 09:15 25 MG Hydroxyzine HCl (Vistaril Tab) 25 mg QID PRN PO 06/30/17 15:30 07/30/17 15:29 07/02/17 09:06 25 MG Levothyroxine Sodium (Synthroid Tab) 25 mcg DAILYBB PO 07/01/17 06:00 07/31/17 05:59 07/03/17 05:36 25 MCG Loratadine (Claritin Tab) 10 mg DAILY PO 07/01/17 09:00 07/31/17 08:59 07/03/17 09:18 10 MG Magnesium Hydroxide (Milk Of Magnesia Susp) 30 ml DAILY PRN PO 06/30/17 15:30 07/30/17 15:29 Nitroglycerin (Nitrostat Tab) 0.4 mg UD PRN UT 06/30/17 15:30 07/30/17 15:29 Nystatin (Mycostatin Powder) 1 appln DAILY EXT 07/01/17 09:00 07/31/17 08:59 07/03/17 09:17 1 APPLN Ondansetron HCl (Zofran Tab) 4 mg Q8 PRN PO 06/30/17 15:30 07/30/17 15:29 Pregabalin (Lyrica Cap) 75 mg BID PO 06/30/17 21:00 07/30/17 20:59 07/03/17 09:24 75 MG Senna/Docusate Sodium (Senokot S Tab) 2 tab HS PO 06/30/17 21:00 07/30/17 20:59 07/02/17 21:23 2 TAB Tamsulosin HCl (Flomax Cap) 0.4 mg HS PO 06/30/17 21:00 07/30/17 20:59 07/02/17 21:22 0.4 MG Trazodone HCl (Desyrel Tab) 50 mg HS PO 06/30/17 21:00 07/30/17 20:59 07/02/17 21:21 50 MG Ursodiol (Actigall Cap) 300 mg BID PO 06/30/17 21:00 07/30/17 20:59 07/03/17 09:16 300 MG Venlafaxine HCl (effeXOR TAB) 75 mg QAM PO 07/01/17 09:00 07/31/17 08:59 07/03/17 09:15 75 MG Pantoprazole Sodium (Protonix Tab) 40 mg DAILY PO 07/01/17 09:00 07/31/17 08:59 07/03/17 09:17 40 MG Miscellaneous Information (Check Fentanyl Patch Placement) 1 ea QS N/A 07/01/17 00:00 07/31/17 00:00 07/03/17 16:00 1 EA Fentanyl (Duragesic Patch) 25 mcg Q72H TD 07/03/17 08:00 07/17/17 07:59 07/03/17 09:09 25 MCG Miscellaneous (Fentanyl Patch Remove & Waste) 1 ea Q3D@0759 N/A 07/03/17 07:59 08/02/17 07:58 07/03/17 07:59 1 EA Daptomycin (Consult) 1 ea UD PRN N/A 06/30/17 18:35 07/30/17 18:34 Daptomycin 800 mg/ Syringe 16 ml @ 8 mls/min Q24H IV 06/30/17 19:00 07/10/17 18:59 07/02/17 21:19 8 MLS/MIN Imipenem/ Cilastatin Sodium 500 mg/Dextrose 110 ml @ 110 mls/hr Q8H IV 06/30/17 20:00 07/10/17 19:59 07/03/17 12:37 110 MLS/HR Imipenem/ Cilastatin Sodium (Consult) 1 ea UD PRN N/A 06/30/17 18:45 07/30/17 18:44 Furosemide 80 mg/ Albumin Human 58 ml @ 54 mls/hr TID@0600,1200,1800 IV 07/01/17 18:00 07/04/17 17:59 Future hold 07/03/17 12:32 54 MLS/HR Potassium Chloride (Klor-Con M10) 10 meq BIDM PO 07/01/17 16:45 07/31/17 16:44 07/03/17 09:17 10 MEQ Polyethylene (Miralax Powder Packet) 17 gm QAM PO 07/02/17 11:00 08/01/17 10:59 07/03/17 09:14 17 GM Mupirocin (Bactroban 2% Oint) 1 appln BID EXT 07/02/17 21:00 07/07/17 20:59 07/03/17 09:17 1 APPLN Last 24 Hours Test 07/02/17 17:23 07/02/17 20:34 07/03/17 07:57 07/03/17 11:46 Bedside Glucose 110 mg/dl 139 mg/dl 111 mg/dl White Blood Count 7.39 K/uL Red Blood Count 3.78 M/uL Hemoglobin 9.5 g/dL Hematocrit 31.3 % Mean Corpuscular Volume 82.8 fL Mean Corpuscular Hemoglobin 25.1 pg Mean Corpuscular Hemoglobin Concent 30.4 g/dl RDW Standard Deviation 59.3 fL RDW Coefficient of Variation 19.6 % Platelet Count 246 K/uL Mean Platelet Volume 9.4 fL Prothrombin Time 41.8 SECONDS Prothromb Time International Ratio 3.7 Sodium Level 138 mmol/L Potassium Level 3.8 mmol/L Chloride Level 103 mmol/L Carbon Dioxide Level 25 mmol/L Anion Gap 10.0 mmol/L Blood Urea Nitrogen 75 mg/dl Creatinine 2.93 mg/dl Est Creatinine Clear Calc Drug Dose 53.9 ml/min Estimated GFR () 26.3 Estimated GFR (Non- 22.7 BUN/Creatinine Ratio 25.6 Random Glucose 108 mg/dl Calcium Level 8.5 mg/dl Test 07/03/17 16:46 Bedside Glucose 129 mg/dl Assessment & Plan 56-year-old male w/ chronic R>>L lymphedema, recurrent cellulitis, DM w/ visual impairment, HTN, s/p multiple IL and strokes w/ residual R arm weakness, w/ afib and defib/pacer, MERY, chronic LLE DVT, CKD 4 admitted 06/30 for diuresis and IV abtx. Some concern for gangrene R great toe >> ortho following. 1. Chronic kidney disease stage IV with creatinine now at 2.9 which stands to vary based on obligate diuretics but has been remarkably stable. No indications for emergent dialysis at this time. Cont increased lasix w/ albumin 80 mg IV thrice daily 0600, noon, 1800 to not disrupt sleep and avoid trujillo; ok w/ creatinine trending up if need be; limit po fluids to 1.5L daily; < 2 gm/day Na diet; strict I/O; daily bmp 2. Anemia. w/ low iron stores >> not in transfusion range; to get 3rd 100 mg IV iron today to help replete; will consider procrit; recheck iron stores in am 3. Hypokalemia. Potassium levels stable on recently increased potassium supplement for now Appreciate consult; will follow with you. Care coordinated w/ Dr. Salazar
[2017-07-03] MEDS: IRON SUCROSE INJ 100 MG in SODIUM CHLORIDE 0.9% 100ML 100 ML IV SCH (17:31)
[2017-07-03 18:33] VITALS: O2SAT 96
[2017-07-03] MEDS: DAPTOMYCIN IV SCH (18:42)
--- NOTE | 2017-07-03 18:46 | Progress Note ---
Medicine Progress Note Date & Time of Visit: Jul 03, 2017 at 18:34. Subjective Pt was seen and examined Lying in bed with no distress Pt said that he feels ok he said that the swelling in his legs seem to improve Denies any chest pain, palpitation, dizziness and SOB Objective Last 8 Hrs Date Time Temp Pulse Resp B/P (MAP) Pulse Ox O2 Delivery O2 Flow Rate FiO2 07/03/17 15:43 36.5 63 18 110/62 (78) 97 Room Air Physical Exam: General- No acute distress Head- atraumatic Eyes- PERRL, EOMI ENT- oropharynx clear Neck- supple, no JVD Lungs- clear to auscultation and percussion Heart- regular rhythm; no murmur Abdomen- normal bowel sounds, soft Extremities-B/L LE Edema R>L.discoloration skin/toes nail.gangrenous of right big toes,darkened spots in all toes toes.wound with yellowish sloughing tissue. Neuro- alert, oriented x 3; PERRL, EOMI; no facial palsy Skin- warm & dry Laboratory Results: Last 24 Hours Test 07/02/17 20:34 07/03/17 07:57 07/03/17 11:46 07/03/17 16:46 Bedside Glucose 139 mg/dl 111 mg/dl 129 mg/dl White Blood Count 7.39 K/uL Red Blood Count 3.78 M/uL Hemoglobin 9.5 g/dL Hematocrit 31.3 % Mean Corpuscular Volume 82.8 fL Mean Corpuscular Hemoglobin 25.1 pg Mean Corpuscular Hemoglobin Concent 30.4 g/dl RDW Standard Deviation 59.3 fL RDW Coefficient of Variation 19.6 % Platelet Count 246 K/uL Mean Platelet Volume 9.4 fL Prothrombin Time 41.8 SECONDS Prothromb Time International Ratio 3.7 Sodium Level 138 mmol/L Potassium Level 3.8 mmol/L Chloride Level 103 mmol/L Carbon Dioxide Level 25 mmol/L Anion Gap 10.0 mmol/L Blood Urea Nitrogen 75 mg/dl Creatinine 2.93 mg/dl Est Creatinine Clear Calc Drug Dose 53.9 ml/min Estimated GFR () 26.3 Estimated GFR (Non- 22.7 BUN/Creatinine Ratio 25.6 Random Glucose 108 mg/dl Calcium Level 8.5 mg/dl Assessment & Plan This is a 56yo M with a PMH of HTN, DM II, h/o chronic R DVT, 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 Bilateral lower extremity swelling: Multifactorial with h/o lymphedema, CHF, CKD, DM type 2 Continue IV lasix 80 BID with albumin Monitor I/O nephrology on board 07/03 Continue lasix 80mg TID Continue monitor I/Os Has been 2L negative On 1.5L fluid restriction Continue monitor renal function LE swelling slightly improves Severe BLE cellulitis: H/o chronic LE cellulitis with antibiotic resistance, RLE > LLE Grew multiple resistant organisms in the past Multiple hospital admission Worsening as per patient CT LE showed No evidence of abscess formation, drainable fluid collection, or necrotizing fascitis Surgery was consulted and no surgical intervention at this time from surgery team Vascular surgery consulted, No surgical intervention; recommended PATRICIA wrap Infectious disease on board recommended combination of daptomycin and imipenem Ortho consulted recommended no surgical intervention at this time Wound care consult Continue daily wound care Chronic systolic/diastolic HF: Asymptomatic CXR showed mild central pulmonary vascular congestion without overt edema. Continue 80mg IV Lasix TID with albumin Last Echo in Mar 2017 showed EF of 55-60%, mild concentric LVH, left atrium severely dilated Continue 1.5L fluid restriction Continue Daily I/O DM II: Hgb a1c of 7.7 in May 2017 On levemir Continue Insulin coverage Continue monitor BS Chronic A Fib: rate is controlled INR 3.8 today Continue holding Coumadin Continue monitor lNR BART on CKD Stage IV: Creatine on admission 2.85 Baseline GFR ~30, Cr 2.4 Creatine 2.9 Mostly creatine will worsening due to IV lasix Consult nephrology Continue monitor BMP Stable H/o R DVT/PE: S/p IVC filter Hold today dose coumadin INR 3.7 HTN: Stable Continue home meds Hypothyroidism: TSH elevated to 6.3 Levothyroxine increased to 37.5 DVT px Coumadin on hold INR 3.7 today CODE STATUS FULL CODE DISPOSITION Discharge once medically stable Consultants: Nephro Ortho Surgery Vascular surgery wound care Current Inpatient Medications: Current Inpatient Medications Medications (Trade) Dose Ordered Sig/Miguel Route Start Time Stop Time Status Last Admin Dose Admin Glucose (Glucose 40% Gel) 15-30 GRAMS 15 GRAMS... UD PRN PO 06/30/17 14:30 07/30/17 14:29 Glucose (Glucose Chew Tab) 4-8 Tablets 4 Tabl... UD PRN PO 06/30/17 14:30 07/30/17 14:29 Dextrose (Dextrose 50% 50ML Syringe) 25-50ML OF 50% DW IV FOR... UD PRN IV 06/30/17 14:30 07/30/17 14:29 Glucagon (Glucagon Inj) 1 mg UD PRN SQ 06/30/17 14:30 07/30/17 14:29 Miscellaneous Information (Consult Glycemic Management Pharmacy) 1 ea UD PRN N/A 06/30/17 14:43 07/30/17 14:42 Insulin Aspart (novoLOG ASPART) SLIDING SCALE ACHS SC 06/30/17 16:15 07/30/17 16:14 07/03/17 17:35 8 UNITS Insulin Detemir (Levemir Flexpen/ FlexTouch) 10 units BID SC 06/30/17 21:00 07/30/17 20:59 07/03/17 09:07 10 UNITS Acetaminophen/ Codeine Phosphate (Tylenol w/ Codeine #3 Tab) 1 tab Q6H PRN PO 06/30/17 15:30 07/30/17 15:29 07/03/17 12:44 1 TAB Albuterol (Ventolin Hfa Inhaler) 2 puffs Q6H PRN INH 06/30/17 15:30 07/30/17 15:29 Atorvastatin Calcium (Lipitor Tab) 80 mg HS PO 06/30/17 21:00 07/30/17 20:59 07/02/17 21:22 80 MG Carvedilol (Coreg Tab) 25 mg BID PO 06/30/17 21:00 07/30/17 20:59 07/03/17 09:15 25 MG Hydroxyzine HCl (Vistaril Tab) 25 mg QID PRN PO 06/30/17 15:30 07/30/17 15:29 07/02/17 09:06 25 MG Levothyroxine Sodium (Synthroid Tab) 25 mcg DAILYBB PO 07/01/17 06:00 07/31/17 05:59 07/03/17 05:36 25 MCG Loratadine (Claritin Tab) 10 mg DAILY PO 07/01/17 09:00 07/31/17 08:59 07/03/17 09:18 10 MG Magnesium Hydroxide (Milk Of Magnesia Susp) 30 ml DAILY PRN PO 06/30/17 15:30 07/30/17 15:29 Nitroglycerin (Nitrostat Tab) 0.4 mg UD PRN UT 06/30/17 15:30 07/30/17 15:29 Nystatin (Mycostatin Powder) 1 appln DAILY EXT 07/01/17 09:00 07/31/17 08:59 07/03/17 09:17 1 APPLN Ondansetron HCl (Zofran Tab) 4 mg Q8 PRN PO 06/30/17 15:30 07/30/17 15:29 Pregabalin (Lyrica Cap) 75 mg BID PO 06/30/17 21:00 07/30/17 20:59 07/03/17 09:24 75 MG Senna/Docusate Sodium (Senokot S Tab) 2 tab HS PO 06/30/17 21:00 07/30/17 20:59 07/02/17 21:23 2 TAB Tamsulosin HCl (Flomax Cap) 0.4 mg HS PO 06/30/17 21:00 07/30/17 20:59 07/02/17 21:22 0.4 MG Trazodone HCl (Desyrel Tab) 50 mg HS PO 06/30/17 21:00 07/30/17 20:59 07/02/17 21:21 50 MG Ursodiol (Actigall Cap) 300 mg BID PO 06/30/17 21:00 07/30/17 20:59 07/03/17 09:16 300 MG Venlafaxine HCl (effeXOR TAB) 75 mg QAM PO 07/01/17 09:00 07/31/17 08:59 07/03/17 09:15 75 MG Pantoprazole Sodium (Protonix Tab) 40 mg DAILY PO 07/01/17 09:00 07/31/17 08:59 07/03/17 09:17 40 MG Miscellaneous Information (Check Fentanyl Patch Placement) 1 ea QS N/A 07/01/17 00:00 07/31/17 00:00 07/03/17 16:00 1 EA Fentanyl (Duragesic Patch) 25 mcg Q72H TD 07/03/17 08:00 07/17/17 07:59 07/03/17 09:09 25 MCG Miscellaneous (Fentanyl Patch Remove & Waste) 1 ea Q3D@0759 N/A 07/03/17 07:59 08/02/17 07:58 07/03/17 07:59 1 EA Daptomycin (Consult) 1 ea UD PRN N/A 06/30/17 18:35 07/30/17 18:34 Daptomycin 800 mg/ Syringe 16 ml @ 8 mls/min Q24H IV 06/30/17 19:00 07/10/17 18:59 07/02/17 21:19 8 MLS/MIN Imipenem/ Cilastatin Sodium 500 mg/Dextrose 110 ml @ 110 mls/hr Q8H IV 06/30/17 20:00 07/10/17 19:59 07/03/17 12:37 110 MLS/HR Imipenem/ Cilastatin Sodium (Consult) 1 ea UD PRN N/A 06/30/17 18:45 07/30/17 18:44 Furosemide 80 mg/ Albumin Human 58 ml @ 54 mls/hr TID@0600,1200,1800 IV 07/01/17 18:00 07/04/17 17:59 Future hold 07/03/17 18:15 54 MLS/HR Potassium Chloride (Klor-Con M10) 10 meq BIDM PO 07/01/17 16:45 07/31/17 16:44 07/03/17 17:31 10 MEQ Polyethylene (Miralax Powder Packet) 17 gm QAM PO 07/02/17 11:00 08/01/17 10:59 07/03/17 09:14 17 GM Mupirocin (Bactroban 2% Oint) 1 appln BID EXT 07/02/17 21:00 07/07/17 20:59 07/03/17 09:17 1 APPLN
[2017-07-03] MEDS ORDERED: WARFARIN SOD 2 MG TAB PO ONE (19:15)
[2017-07-03] MEDS: TRAZODONE HCL 50 MG TAB PO SCH (19:32)
[2017-07-03] MEDS: ATORVASTATIN 40 MG TAB PO SCH (19:32)
[2017-07-03] MEDS: DOCUSATE SODIUM/SENNA 50/8.6MG TAB PO SCH (19:33)
[2017-07-03] MEDS: TAMSULOSIN HCL 0.4 MG CAP PO SCH (19:44)
[2017-07-04] VITALS (7 sets, daily range): BP systolic 120–138; BP diastolic 64–82; PULSE 61–108; TEMP 36.4–37; O2SAT 90–98
[2017-07-04] MEDS: IMIPENEM/CILASTATIN IV 500 MG in D5W 100ML IV SCH ×3 (04:41→22:35)
[2017-07-04] MEDS: LEVOTHYROXINE 25 MCG TAB PO SCH (05:40)
[2017-07-04] MEDS: ALBUMIN 25% 50 ML with FUROSEMIDE INJ 80 MG IV SCH ×6 (05:41→20:26)
[2017-07-04] MEDS: NYSTATIN POWDER 15GM BTL EXT SCH (07:52)
[2017-07-04] MEDS: POTASSIUM CHLORIDE 10 MEQ TABCR PO SCH ×2 (07:52→17:23)
[2017-07-04] MEDS: VENLAFAXINE HCL 37.5 MG TAB PO SCH (07:52)
[2017-07-04] MEDS: PANTOprazole SOD 40 MG TAB PO SCH (07:53)
[2017-07-04] MEDS: POLYETHYLENE (MIRALAX) 17 GM PACK PO SCH (07:53)
[2017-07-04] MEDS: LORATADINE 10 MG TAB PO SCH (07:53)
[2017-07-04] MEDS: MUPIROCIN 2% OINT 22 GM TUBE EXT SCH ×2 (07:53→20:00)
[2017-07-04] MEDS: URSODIOL 300 MG CAP PO SCH ×2 (07:53→20:41)
[2017-07-04] MEDS: CARVEDILOL 25 MG TAB PO SCH ×2 (07:54→20:40)
[2017-07-04] MEDS: PREGABALIN 75 MG CAP PO SCH ×2 (08:00→20:58)
[2017-07-04 08:04] LABS: BASO % 0.6 %; BASO ABS # 0.04 K/uL (0-0.2); EOS % 5.6 %; HEMATOCRIT 27.6 % (42-52); IG% 0.3 %; LYMPH % 16.5 %; LYMPH ABS # 1.12 K/uL (1.2-3.4); MEAN CELL VOLUME 82.6 fL (80-100); MEAN CORPUSCULAR HEMOGLOBIN 25.4 pg (25-34); MEAN CORPUSCULAR HGB CONC 30.8 g/dl (32-36); MEAN PLATELET VOLUME 9.5 fL (7.4-10.4); MONO % 8.8 %; NEUT % 68.2 %; PLATELET COUNT 213 K/uL (130-400); RED BLOOD COUNT 3.34 M/uL (4.7-6.1); WHITE BLOOD COUNT 6.79 K/uL (4.8-10.8)
[2017-07-04 08:13] LABS: INR 5.1 (0.9-1.1)
[2017-07-04 08:33] LABS: ANISOCYTOSIS PRESENT; COMPLETE YES
[2017-07-04 08:36] LABS: BUN/CREATININE RATIO 27.1 (10-20); CALCIUM 8.4 mg/dl (8.5-10.1); CREATININE 2.77 mg/dl (0.60-1.40); POTASSIUM 3.6 mmol/L (3.5-5.1)
[2017-07-04] MEDS: INSULIN ASPART 100 UNITS/ML 3 ML PEN SC SCH ×4 (08:57→20:52)
[2017-07-04] MEDS: INSULIN DETEMIR FLEXPEN/FLEX TOUCH 100 UNITS/ML 3ML SC SCH ×2 (08:58→20:53)
[2017-07-04] MEDS: CHECK FENTANYL PATCH PLACEMENT SCH ×2 (09:00→16:54)
--- NOTE | 2017-07-04 15:17 | CONSULTATION REPORT ---
DATE OF CONSULTATION: 07/04/2017 REASON FOR CONSULTATION: Ulcerations and edema both lower extremities. Sacral wound. HISTORY OF PRESENT ILLNESS: This 56-year-old gentleman with a complex medical history including hypertension, diabetes, chronic right DVT, cardiomyopathy, chronic AFib and chronic lymphedema was admitted for cellulitis and chronic bilateral lower extremity wounds. He is currently being followed by infectious disease. Surgical, vascular and orthopedic consultations have been made. Recommendations have been reviewed. He is not felt to be a surgical candidate. The patient states that he has had chronic problems with significant edema of both his lower extremities for many years. He has had problems with recurrent blisters for 9-10 months and this is his fourth admission, since March, for worsening bilateral lower extremity edema and cellulitis. He states that he has not been putting anything on the wounds but did have wraps placed as an outpatient. He is unsure if this has provided any improvement. He at this time complains of bilateral lower leg pain, right greater than left. He also is complaining of pain in his buttocks area related to some open wounds. PREVIOUS MEDICAL HISTORY: Significant for coronary artery disease, chronic AFib, chronic CHF, chronic pain, chronic kidney disease stage IV, depression, diabetes type 2, dyslipidemia, sacral fracture, PE, stroke, hypertension, idiopathic cardiomyopathy, ischemic cardiomyopathy, lymphedema, obesity, obstructive hydrocephalus, right leg DVT, sleep apnea, venous insufficiency. PREVIOUS SURGICAL HISTORY: Status post eye surgery, SELF SEALING FUEL TANK REPAIRER shunt, cholecystectomy, pacemaker defibrillator insertion, spinal surgery and IVC filter placement. FAMILY HISTORY: Significant for coronary artery disease and hypertension. SOCIAL HISTORY: The patient currently is living in assisted living. He denies cigarette or alcohol use. MEDICATIONS: PRN: acetaminophen, Tylenol with codeine, albuterol, Dulcolax,and Atarax. Lipitor 80 mg at bedtime, Coreg 25 mg b.i.d., Nexium 40 mg daily, fentanyl 25 mcg topical q. 72 hours, furosemide 80 mg b.i.d., NovoLog FlexPen per sliding scale, Levemir 15 units subQ b.i.d., Lactinex 2 tablets b.i.d., Synthroid 25 mcg daily, Claritin 10 mg daily, melatonin 10 mg at bedtime, multivitamin q.a.m., Nitrostat 0.4 mg p.r.n., Nystatin powder to lower extremities daily, Lyrica 75 mg b.i.d., trazodone 50 mg at bedtime, ursodiol 300 mg b.i.d., Effexor 75 mg q.a.m., Coumadin 3 mg daily, daptomycin IV, imipenem IV. ALLERGIES: Cephalosporins, Clindamycin,PCN, Iodinated Diagnostic agents, Perflutren PHYSICAL EXAMINATION: GENERAL: Reveals a pleasant 56-year-old gentleman who appears older than stated age, in no acute distress. VITAL SIGNS: Temperature 36.4, pulse 61, respiratory rate 20 and unlabored, O2 sat 98% on room air, blood pressure 130/75. HEAD, EYES, EARS, NOSE, AND THROAT: Normocephalic, atraumatic. Pupils appear equal and reactive to light. Extraocular muscles are intact. NECK: Supple, nontender. LUNGS: Clear without wheezing, rhonchi, or rales. HEART: Regular rate and rhythm, distant. ABDOMEN: Morbidly obese, soft, nontender. EXTREMITIES: The patient has significant lower extremity edema, right lower extremity greater than left lower extremity. Legs are erythematous with venous stasis changes. The right lower extremity has a scattering of ulcers measuring in total 29 x 56 cm. Left lower extremity has scattered lesions measuring 5 x 10 cm. The wounds are covered with slough. Scant odor noted. No active drainage. In addition, patient has deep tissue injuries to the left and right heels. Left heel measures 3 x 4 cm, right heel measures 1.5 x 4 cm. There are no open wounds. Right foot is markedly edematous and erythematous and has a hypertrophic dermatitis noted along the intertriginous areas of the toes. The patient's pulses are diminished. ABIs have not been performed. NEUROLOGIC: No focal deficits on limited exam. BUTTOCKS: The patient has scattered stage II pressure ulcers on the sacral area. ASSESSMENT: 1. Severe peripheral lymphedema bilateral lower extremities with ulcerations, right and left lower extremities. 2. Cellulitis Both lower extremities 3. Stage II pressure ulcers sacral area. PLAN: At this time, the ulcerative sites of both lower extremities require debridement. With the patient's permission and after the application of topical Xylocaine, the sites were debrided with a #5 curette of slough and eschar. No bleeding occurred. The sites will be dressed with Aquacel AG and gauze changed twice daily. Because of the deep tissue injuries to the heels I recommend that the patient not be wrapped in Sage wraps. We will forego compression dressings at this time. He is to wear the waffle boots that were at his bedside. Regarding his sacral wounds they did not require debridement, but will be dressed with Aquacel AG and Optifoam changed daily. The other dressings are to be changed twice a day and p.r.n. The patient will continue to be monitored during his hospital stay and reevaluated as needed on an outpatient basis upon discharge. This represents a nonexcisional debridement of 1674 squared cm. Would also recommend a Dermatology referral to further assess his foot dermatitis. Thank you for this consultation. WANG
[2017-07-04] MEDS: ACETAMINOPHEN/CODEINE 300/30MG TAB PO PRN (17:23)
--- NOTE | 2017-07-04 17:25 | Nephrology Progress Note ---
Nephrology Progress Note Date of Service: Jul 04, 2017. Subjective seen on rounds this am 10am; cont to feel he is getting fluid off; declines trujillo; stable chronic back pain; noconstipation or dyspnea Objective Date Time Temp Pulse Resp B/P (MAP) Pulse Ox O2 Delivery O2 Flow Rate FiO2 07/04/17 16:00 Room Air 07/04/17 15:20 37.0 62 16 120/64 (82) 90 Room Air 07/04/17 10:00 Room Air 07/04/17 07:28 36.4 61 20 130/75 (93) 98 Room Air 07/04/17 00:13 36.9 108 20 132/80 (97) 97 Room Air 07/04/17 00:00 96 Room Air 07/03/17 18:33 96 Room Air Physical Exam: GENERAL: Awake, alert, oriented x3. sitting up on edge of bed EYES: Scleral icterus. HEENT: dry mucous membranes. NECK: Supple. PULMONARY: Clear to auscultationbut diminished CARDIAC: Regular rate. ABDOMEN: Bowel sounds positive, soft, nontender. no trujillo EXTREMITIES: Right leg with significant weeping/induration/redness, +4 edema. Left leg, +3 edema. unable to tell on exam if lessening NEUROLOGICALLY: +residual right-sided weakness. DERMATOLOGIC: Chronic weeping ulcers BL lower extremities. Current Inpatient Medications Medications (Trade) Dose Ordered Sig/Miguel Route Start Time Stop Time Status Last Admin Dose Admin Glucose (Glucose 40% Gel) 15-30 GRAMS 15 GRAMS... UD PRN PO 06/30/17 14:30 07/30/17 14:29 Glucose (Glucose Chew Tab) 4-8 Tablets 4 Tabl... UD PRN PO 06/30/17 14:30 07/30/17 14:29 Dextrose (Dextrose 50% 50ML Syringe) 25-50ML OF 50% DW IV FOR... UD PRN IV 06/30/17 14:30 07/30/17 14:29 Glucagon (Glucagon Inj) 1 mg UD PRN SQ 06/30/17 14:30 07/30/17 14:29 Miscellaneous Information (Consult Glycemic Management Pharmacy) 1 ea UD PRN N/A 06/30/17 14:43 07/30/17 14:42 Insulin Aspart (novoLOG ASPART) SLIDING SCALE ACHS SC 06/30/17 16:15 07/30/17 16:14 07/04/17 13:24 14 UNITS Insulin Detemir (Levemir Flexpen/ FlexTouch) 10 units BID SC 06/30/17 21:00 07/30/17 20:59 07/04/17 08:58 10 UNITS Acetaminophen/ Codeine Phosphate (Tylenol w/ Codeine #3 Tab) 1 tab Q6H PRN PO 06/30/17 15:30 07/30/17 15:29 07/03/17 19:42 1 TAB Albuterol (Ventolin Hfa Inhaler) 2 puffs Q6H PRN INH 06/30/17 15:30 07/30/17 15:29 Atorvastatin Calcium (Lipitor Tab) 80 mg HS PO 06/30/17 21:00 07/30/17 20:59 07/03/17 19:32 80 MG Carvedilol (Coreg Tab) 25 mg BID PO 06/30/17 21:00 07/30/17 20:59 07/04/17 07:54 25 MG Hydroxyzine HCl (Vistaril Tab) 25 mg QID PRN PO 06/30/17 15:30 07/30/17 15:29 07/02/17 09:06 25 MG Loratadine (Claritin Tab) 10 mg DAILY PO 07/01/17 09:00 07/31/17 08:59 07/04/17 07:53 10 MG Magnesium Hydroxide (Milk Of Magnesia Susp) 30 ml DAILY PRN PO 06/30/17 15:30 07/30/17 15:29 Nitroglycerin (Nitrostat Tab) 0.4 mg UD PRN UT 06/30/17 15:30 07/30/17 15:29 Nystatin (Mycostatin Powder) 1 appln DAILY EXT 07/01/17 09:00 07/31/17 08:59 07/04/17 07:52 1 APPLN Ondansetron HCl (Zofran Tab) 4 mg Q8 PRN PO 06/30/17 15:30 07/30/17 15:29 Pregabalin (Lyrica Cap) 75 mg BID PO 06/30/17 21:00 07/30/17 20:59 07/04/17 08:00 75 MG Senna/Docusate Sodium (Senokot S Tab) 2 tab HS PO 06/30/17 21:00 07/30/17 20:59 07/03/17 19:33 2 TAB Tamsulosin HCl (Flomax Cap) 0.4 mg HS PO 06/30/17 21:00 07/30/17 20:59 07/03/17 19:44 0.4 MG Trazodone HCl (Desyrel Tab) 50 mg HS PO 06/30/17 21:00 07/30/17 20:59 07/03/17 19:32 50 MG Ursodiol (Actigall Cap) 300 mg BID PO 06/30/17 21:00 07/30/17 20:59 07/04/17 07:53 300 MG Venlafaxine HCl (effeXOR TAB) 75 mg QAM PO 07/01/17 09:00 07/31/17 08:59 07/04/17 07:52 75 MG Pantoprazole Sodium (Protonix Tab) 40 mg DAILY PO 07/01/17 09:00 07/31/17 08:59 07/04/17 07:53 40 MG Miscellaneous Information (Check Fentanyl Patch Placement) 1 ea QS N/A 07/01/17 00:00 07/31/17 00:00 07/04/17 16:54 1 EA Fentanyl (Duragesic Patch) 25 mcg Q72H TD 07/03/17 08:00 07/17/17 07:59 07/03/17 09:09 25 MCG Miscellaneous (Fentanyl Patch Remove & Waste) 1 ea Q3D@0759 N/A 07/03/17 07:59 08/02/17 07:58 07/03/17 07:59 1 EA Daptomycin (Consult) 1 ea UD PRN N/A 06/30/17 18:35 07/30/17 18:34 Daptomycin 800 mg/ Syringe 16 ml @ 8 mls/min Q24H IV 06/30/17 19:00 07/10/17 18:59 07/03/17 18:42 8 MLS/MIN Imipenem/ Cilastatin Sodium 500 mg/Dextrose 110 ml @ 110 mls/hr Q8H IV 06/30/17 20:00 07/10/17 19:59 07/04/17 13:23 110 MLS/HR Imipenem/ Cilastatin Sodium (Consult) 1 ea UD PRN N/A 06/30/17 18:45 07/30/17 18:44 Furosemide 80 mg/ Albumin Human 58 ml @ 54 mls/hr TID@0600,1200,1800 IV 07/01/17 18:00 07/04/17 17:59 Future hold 07/04/17 12:16 54 MLS/HR Potassium Chloride (Klor-Con M10) 10 meq BIDM PO 07/01/17 16:45 07/31/17 16:44 07/04/17 07:52 10 MEQ Polyethylene (Miralax Powder Packet) 17 gm QAM PO 07/02/17 11:00 08/01/17 10:59 07/04/17 07:53 17 GM Mupirocin (Bactroban 2% Oint) 1 appln BID EXT 07/02/17 21:00 07/07/17 20:59 07/04/17 07:53 1 APPLN Levothyroxine Sodium (Synthroid Tab) 37.5 mcg DAILYBB PO 07/04/17 06:30 07/31/17 05:59 07/04/17 05:40 37.5 MCG Last 24 Hours Test 07/03/17 19:29 07/04/17 07:29 07/04/17 07:47 07/04/17 11:33 Bedside Glucose 184 mg/dl 97 mg/dl 279 mg/dl White Blood Count 6.79 K/uL Red Blood Count 3.34 M/uL Hemoglobin 8.5 g/dL Hematocrit 27.6 % Mean Corpuscular Volume 82.6 fL Mean Corpuscular Hemoglobin 25.4 pg Mean Corpuscular Hemoglobin Concent 30.8 g/dl Platelet Count 213 K/uL Mean Platelet Volume 9.5 fL Neutrophils (%) (Auto) 68.2 % Lymphocytes (%) (Auto) 16.5 % Monocytes (%) (Auto) 8.8 % Eosinophils (%) (Auto) 5.6 % Basophils (%) (Auto) 0.6 % Neutrophils # (Auto) 4.63 K/uL Lymphocytes # (Auto) 1.12 K/uL Monocytes # (Auto) 0.60 K/uL Eosinophils # (Auto) 0.38 K/uL Basophils # (Auto) 0.04 K/uL RDW Standard Deviation 59.1 fL RDW Coefficient of Variation 19.5 % Immature Granulocyte % (Auto) 0.3 % Immature Granulocyte # (Auto) 0.02 K/uL Anisocytosis PRESENT Prothrombin Time 58.0 SECONDS Prothromb Time International Ratio 5.1 Sodium Level 139 mmol/L Potassium Level 3.6 mmol/L Chloride Level 104 mmol/L Carbon Dioxide Level 25 mmol/L Anion Gap 10.0 mmol/L Blood Urea Nitrogen 75 mg/dl Creatinine 2.77 mg/dl Est Creatinine Clear Calc Drug Dose 57.0 ml/min Estimated GFR () 28.1 Estimated GFR (Non- 24.3 BUN/Creatinine Ratio 27.1 Random Glucose 98 mg/dl Calcium Level 8.4 mg/dl Iron Level 32 mcg/dl Total Iron Binding Capacity 170 mcg/dl Transferrin 135 mg/dl Transferrin % Saturation 17 % Test 07/04/17 16:20 Bedside Glucose 286 mg/dl Date/Time Source Procedure Growth Status 07/04/17 11:30 Ulcer Foot Right Gram Stain - Final Resulted 07/04/17 11:30 Ulcer Foot Right Wound Culture Pending Resulted Assessment & Plan 56-year-old male w/ chronic R>>L lymphedema, recurrent cellulitis, DM w/ visual impairment, HTN, s/p multiple CA and strokes w/ residual R arm weakness, w/ afib and defib/pacer, MERY, chronic LLE DVT, CKD 4 admitted 06/30 for diuresis and IV abtx. Some concern for gangrene R great toe >> ortho following. 1. Chronic kidney disease stage IV with creatinine now at 2.9 which should vary based on obligate diuretics but has been remarkably stable. No indications for emergent dialysis at this time. Cont increased lasix w/ albumin 80 mg IV thrice daily 0600, noon, 1800 to not disrupt sleep and avoid trujillo; ok w/ creatinine trending up if need be; cont to limit po fluids to 1.5L daily; <2 gm/day Na diet; strict I/O; daily bmp 2. Anemia. w/ low iron stores >> not in transfusion range; after 300 mg IV iron t satn up to 17%; will give another 200 mg IV today and tomorrow; then could consider procrit though with clotting hx may need to have extensive discussion of risks/benefits 3. Hypokalemia. Potassium levels stable on recently increased potassium supplement for now Appreciate consult; will follow with you. Care coordinated w/ Dr. Salazar
--- NOTE | 2017-07-04 17:42 | Infectious Disease Progress Nt ---
Progress Note Date of Service Jul 04, 2017. Subjective Pt evaluation today including: conversation w/ patient, physical exam, chart review, lab review, review of studies, conversation w/ communication consultant, review of inpatient medication list patient offering no new specific complaints today. Remains afebrile. Wound care consultation noted. All Other Systems: Reviewed and Negative Medications Current Inpatient Medications Medications (Trade) Dose Ordered Sig/Miguel Route Start Time Stop Time Status Last Admin Dose Admin Glucose (Glucose 40% Gel) 15-30 GRAMS 15 GRAMS... UD PRN PO 06/30/17 14:30 07/30/17 14:29 Glucose (Glucose Chew Tab) 4-8 Tablets 4 Tabl... UD PRN PO 06/30/17 14:30 07/30/17 14:29 Dextrose (Dextrose 50% 50ML Syringe) 25-50ML OF 50% DW IV FOR... UD PRN IV 06/30/17 14:30 07/30/17 14:29 Glucagon (Glucagon Inj) 1 mg UD PRN SQ 06/30/17 14:30 07/30/17 14:29 Miscellaneous Information (Consult Glycemic Management Pharmacy) 1 ea UD PRN N/A 06/30/17 14:43 07/30/17 14:42 Insulin Aspart (novoLOG ASPART) SLIDING SCALE ACHS SC 06/30/17 16:15 07/30/17 16:14 07/04/17 13:24 14 UNITS Insulin Detemir (Levemir Flexpen/ FlexTouch) 10 units BID SC 06/30/17 21:00 07/30/17 20:59 07/04/17 08:58 10 UNITS Acetaminophen/ Codeine Phosphate (Tylenol w/ Codeine #3 Tab) 1 tab Q6H PRN PO 06/30/17 15:30 07/30/17 15:29 07/04/17 17:23 1 TAB Albuterol (Ventolin Hfa Inhaler) 2 puffs Q6H PRN INH 06/30/17 15:30 07/30/17 15:29 Atorvastatin Calcium (Lipitor Tab) 80 mg HS PO 06/30/17 21:00 07/30/17 20:59 07/03/17 19:32 80 MG Carvedilol (Coreg Tab) 25 mg BID PO 06/30/17 21:00 07/30/17 20:59 07/04/17 07:54 25 MG Hydroxyzine HCl (Vistaril Tab) 25 mg QID PRN PO 06/30/17 15:30 07/30/17 15:29 07/02/17 09:06 25 MG Loratadine (Claritin Tab) 10 mg DAILY PO 07/01/17 09:00 07/31/17 08:59 07/04/17 07:53 10 MG Magnesium Hydroxide (Milk Of Magnesia Susp) 30 ml DAILY PRN PO 06/30/17 15:30 07/30/17 15:29 Nitroglycerin (Nitrostat Tab) 0.4 mg UD PRN UT 06/30/17 15:30 07/30/17 15:29 Nystatin (Mycostatin Powder) 1 appln DAILY EXT 07/01/17 09:00 07/31/17 08:59 07/04/17 07:52 1 APPLN Ondansetron HCl (Zofran Tab) 4 mg Q8 PRN PO 06/30/17 15:30 07/30/17 15:29 Pregabalin (Lyrica Cap) 75 mg BID PO 06/30/17 21:00 07/30/17 20:59 07/04/17 08:00 75 MG Senna/Docusate Sodium (Senokot S Tab) 2 tab HS PO 06/30/17 21:00 07/30/17 20:59 07/03/17 19:33 2 TAB Tamsulosin HCl (Flomax Cap) 0.4 mg HS PO 06/30/17 21:00 07/30/17 20:59 07/03/17 19:44 0.4 MG Trazodone HCl (Desyrel Tab) 50 mg HS PO 06/30/17 21:00 07/30/17 20:59 07/03/17 19:32 50 MG Ursodiol (Actigall Cap) 300 mg BID PO 06/30/17 21:00 07/30/17 20:59 07/04/17 07:53 300 MG Venlafaxine HCl (effeXOR TAB) 75 mg QAM PO 07/01/17 09:00 07/31/17 08:59 07/04/17 07:52 75 MG Pantoprazole Sodium (Protonix Tab) 40 mg DAILY PO 07/01/17 09:00 07/31/17 08:59 07/04/17 07:53 40 MG Miscellaneous Information (Check Fentanyl Patch Placement) 1 ea QS N/A 07/01/17 00:00 07/31/17 00:00 07/04/17 16:54 1 EA Fentanyl (Duragesic Patch) 25 mcg Q72H TD 07/03/17 08:00 07/17/17 07:59 07/03/17 09:09 25 MCG Miscellaneous (Fentanyl Patch Remove & Waste) 1 ea Q3D@0759 N/A 07/03/17 07:59 08/02/17 07:58 07/03/17 07:59 1 EA Daptomycin (Consult) 1 ea UD PRN N/A 06/30/17 18:35 07/30/17 18:34 Daptomycin 800 mg/ Syringe 16 ml @ 8 mls/min Q24H IV 06/30/17 19:00 07/10/17 18:59 07/03/17 18:42 8 MLS/MIN Imipenem/ Cilastatin Sodium 500 mg/Dextrose 110 ml @ 110 mls/hr Q8H IV 06/30/17 20:00 07/10/17 19:59 07/04/17 13:23 110 MLS/HR Imipenem/ Cilastatin Sodium (Consult) 1 ea UD PRN N/A 06/30/17 18:45 07/30/17 18:44 Furosemide 80 mg/ Albumin Human 58 ml @ 54 mls/hr TID@0600,1200,1800 IV 07/01/17 18:00 07/04/17 17:59 Future hold 07/04/17 12:16 54 MLS/HR Potassium Chloride (Klor-Con M10) 10 meq BIDM PO 07/01/17 16:45 07/31/17 16:44 07/04/17 17:23 10 MEQ Polyethylene (Miralax Powder Packet) 17 gm QAM PO 07/02/17 11:00 08/01/17 10:59 07/04/17 07:53 17 GM Mupirocin (Bactroban 2% Oint) 1 appln BID EXT 07/02/17 21:00 07/07/17 20:59 07/04/17 07:53 1 APPLN Levothyroxine Sodium (Synthroid Tab) 37.5 mcg DAILYBB PO 07/04/17 06:30 07/31/17 05:59 07/04/17 05:40 37.5 MCG Iron Sucrose 100 mg/Sodium Chloride 105 ml @ 420 mls/hr TODAY@1999 IV 07/04/17 20:00 07/04/17 20:14 Iron Sucrose 100 mg/Sodium Chloride 105 ml @ 420 mls/hr ONE ONCE IV 07/05/17 08:00 07/05/17 08:14 Objective Vital Signs Date Time Temp Pulse Resp B/P (MAP) Pulse Ox O2 Delivery O2 Flow Rate FiO2 07/04/17 16:00 Room Air 07/04/17 15:20 37.0 62 16 120/64 (82) 90 Room Air 07/04/17 10:00 Room Air 07/04/17 07:28 36.4 61 20 130/75 (93) 98 Room Air 07/04/17 00:13 36.9 108 20 132/80 (97) 97 Room Air 07/04/17 00:00 96 Room Air 07/03/17 18:33 96 Room Air Physical Exam General Appearance: WD/WN, no apparent distress, + obese Eyes: normal inspection, EOMI, sclerae normal ENT: normal ENT inspection, pharynx normal Neck: supple, no adenopathy, thyroid normal, trachea midline Respiratory/Chest: chest non-tender, lungs clear, normal breath sounds, no respiratory distress Cardiovascular: regular rate, rhythm, no gallop, no murmur Abdomen: normal bowel sounds, non tender, soft, no organomegaly Extremities: + inflammation, + swelling Neurologic/Psychiatric: alert, oriented x 3 Skin: normal color, + pertinent finding ( Right lower extremity erythema and swelling) Lymphatic: no adenopathy Laboratory Results RUN DATE: 07/04/17 [facility] LAB PAGE 1 RUN TIME: 1441 Specimen Inquiry PATIENT: MARICEL BILLY LOC: [facility]re U # : [id number] AGE/SX: 56/M ROOM: E423 REG : 06/30/[address]: Genesis Salazar M.D. : 1960 BED: 1 DIS : STATUS: ADM IN TLOC: SPEC #: [id number] MILEY: 07/04/17 STATUS: RES REQ #: [id number] RECD: 07/04/[address]: Hilary Curran,D.O. SOURCE: ULCER ENTR: 07/04/[address] [facility] [address]: Darshan Kraus MD SPDESC: FOOT RIGHT Genesis Salazar M.D. Duncan, Mona D., MD Oncu, Neema Gaines, Ke Starr M.D. Shaw, Mark R., Wilfred Cox M.D. [facility], Tonny Atkins M.D. ORDERED: SURF ADILENED CU/ANASTASIIA COMMENTS: Has Specimen Been Obtained/Collected? Y Procedure Result Verified Site GRAM STAIN Final 07/04/17-1441 RESULT NO WBCs SEEN NO ORGANISMS SEEN SURFACE WOUND CULTURE PENDING END OF REPORT Last 24 Hours Test 07/03/17 19:29 07/04/17 07:29 07/04/17 07:47 07/04/17 11:33 Bedside Glucose 184 mg/dl 97 mg/dl 279 mg/dl White Blood Count 6.79 K/uL Red Blood Count 3.34 M/uL Hemoglobin 8.5 g/dL Hematocrit 27.6 % Mean Corpuscular Volume 82.6 fL Mean Corpuscular Hemoglobin 25.4 pg Mean Corpuscular Hemoglobin Concent 30.8 g/dl Platelet Count 213 K/uL Mean Platelet Volume 9.5 fL Neutrophils (%) (Auto) 68.2 % Lymphocytes (%) (Auto) 16.5 % Monocytes (%) (Auto) 8.8 % Eosinophils (%) (Auto) 5.6 % Basophils (%) (Auto) 0.6 % Neutrophils # (Auto) 4.63 K/uL Lymphocytes # (Auto) 1.12 K/uL Monocytes # (Auto) 0.60 K/uL Eosinophils # (Auto) 0.38 K/uL Basophils # (Auto) 0.04 K/uL RDW Standard Deviation 59.1 fL RDW Coefficient of Variation 19.5 % Immature Granulocyte % (Auto) 0.3 % Immature Granulocyte # (Auto) 0.02 K/uL Anisocytosis PRESENT Prothrombin Time 58.0 SECONDS Prothromb Time International Ratio 5.1 Sodium Level 139 mmol/L Potassium Level 3.6 mmol/L Chloride Level 104 mmol/L Carbon Dioxide Level 25 mmol/L Anion Gap 10.0 mmol/L Blood Urea Nitrogen 75 mg/dl Creatinine 2.77 mg/dl Est Creatinine Clear Calc Drug Dose 57.0 ml/min Estimated GFR () 28.1 Estimated GFR (Non- 24.3 BUN/Creatinine Ratio 27.1 Random Glucose 98 mg/dl Calcium Level 8.4 mg/dl Iron Level 32 mcg/dl Total Iron Binding Capacity 170 mcg/dl Transferrin 135 mg/dl Transferrin % Saturation 17 % Test 07/04/17 16:20 Bedside Glucose 286 mg/dl Assessment and Plan 56-year-old male with recurrent lower extremity cellulitis, severe chronic lower extremity lymphedema, diabetes mellitus presents with recurrent severe cellulitis. patient be continued on broad-spectrum antibiotics, with length of therapy to be determined by clinical response. Will follow.
[2017-07-04] MEDS: DAPTOMYCIN IV SCH (18:10)
--- NOTE | 2017-07-04 19:06 | Progress Note ---
Medicine Progress Note Date & Time of Visit: Jul 04, 2017 at 16:49. Subjective Pt was seen and examined Sitting at the edge of the bed with no distress Pt said that he feels fine He had debridement done today by the wound care team Denies any fever, palpitation, dizziness and SOB Objective Last 8 Hrs Date Time Temp Pulse Resp B/P (MAP) Pulse Ox O2 Delivery O2 Flow Rate FiO2 07/04/17 16:00 Room Air 07/04/17 15:20 37.0 62 16 120/64 (82) 90 Room Air Physical Exam: General- No acute distress Head- atraumatic Eyes- PERRL, EOMI ENT- oropharynx clear Neck- supple, no JVD Lungs- clear to auscultation and percussion Heart- regular rhythm; no murmur Abdomen- normal bowel sounds, soft Extremities-B/L LE Edema R>L.discoloration skin/toes nail.gangrenous of right big toes,darkened spots in all toes toes. Dressing in Right leg Neuro- alert, oriented x 3; PERRL, EOMI; no facial palsy Skin- warm & dry Laboratory Results: Last 24 Hours Test 07/03/17 19:29 07/04/17 07:29 07/04/17 07:47 07/04/17 11:33 Bedside Glucose 184 mg/dl 97 mg/dl 279 mg/dl White Blood Count 6.79 K/uL Red Blood Count 3.34 M/uL Hemoglobin 8.5 g/dL Hematocrit 27.6 % Mean Corpuscular Volume 82.6 fL Mean Corpuscular Hemoglobin 25.4 pg Mean Corpuscular Hemoglobin Concent 30.8 g/dl Platelet Count 213 K/uL Mean Platelet Volume 9.5 fL Neutrophils (%) (Auto) 68.2 % Lymphocytes (%) (Auto) 16.5 % Monocytes (%) (Auto) 8.8 % Eosinophils (%) (Auto) 5.6 % Basophils (%) (Auto) 0.6 % Neutrophils # (Auto) 4.63 K/uL Lymphocytes # (Auto) 1.12 K/uL Monocytes # (Auto) 0.60 K/uL Eosinophils # (Auto) 0.38 K/uL Basophils # (Auto) 0.04 K/uL RDW Standard Deviation 59.1 fL RDW Coefficient of Variation 19.5 % Immature Granulocyte % (Auto) 0.3 % Immature Granulocyte # (Auto) 0.02 K/uL Anisocytosis PRESENT Prothrombin Time 58.0 SECONDS Prothromb Time International Ratio 5.1 Sodium Level 139 mmol/L Potassium Level 3.6 mmol/L Chloride Level 104 mmol/L Carbon Dioxide Level 25 mmol/L Anion Gap 10.0 mmol/L Blood Urea Nitrogen 75 mg/dl Creatinine 2.77 mg/dl Est Creatinine Clear Calc Drug Dose 57.0 ml/min Estimated GFR () 28.1 Estimated GFR (Non- 24.3 BUN/Creatinine Ratio 27.1 Random Glucose 98 mg/dl Calcium Level 8.4 mg/dl Iron Level 32 mcg/dl Total Iron Binding Capacity 170 mcg/dl Transferrin 135 mg/dl Transferrin % Saturation 17 % Test 07/04/17 16:20 Bedside Glucose 286 mg/dl Date/Time Source Procedure Growth Status 07/04/17 11:30 Ulcer Foot Right Gram Stain - Final Resulted 07/04/17 11:30 Ulcer Foot Right Wound Culture Pending Resulted Assessment & Plan This is a 56yo M with a PMH of HTN, DM II, h/o chronic R DVT, 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 Bilateral lower extremity swelling: Multifactorial with h/o lymphedema, CHF, CKD, DM type 2 Continue IV lasix 80 BID with albumin Monitor I/O nephrology on board 07/04 On Lasix 80mg BID Continue monitor I/Os Has been 5L negative On 1.5L fluid restriction Continue monitor renal function LE swelling slightly improves Nephrology on board Severe BLE cellulitis: H/o chronic LE cellulitis with antibiotic resistance, RLE > LLE Grew multiple resistant organisms in the past Multiple hospital admission Worsening as per patient CT LE showed No evidence of abscess formation, drainable fluid collection, or necrotizing fascitis Surgery was consulted and no surgical intervention at this time from surgery team Vascular surgery consulted, No surgical intervention; recommended PATRICIA wrap Infectious disease on board recommended combination of daptomycin and imipenem Ortho consulted recommended no surgical intervention at this time Wound care consult s/p debridement of the ulcerative sites by wound care physician Continue daily wound care Chronic systolic/diastolic HF: Asymptomatic CXR showed mild central pulmonary vascular congestion without overt edema. Continue 80mg IV Lasix TID with albumin Last Echo in Mar 2017 showed EF of 55-60%, mild concentric LVH, left atrium severely dilated Continue 1.5L fluid restriction Continue Daily I/O -5L output DM II: Hgb a1c of 7.7 in May 2017 On levemir Continue Insulin coverage Continue monitor BS Chronic A Fib: rate is controlled INR 5.1 today holding Coumadin Continue monitor lNR BART on CKD Stage IV: Creatine on admission 2.85 Baseline GFR ~30, Cr 2.4 Creatine 2.7 Mostly creatine will worsening due to IV lasix Consult nephrology Continue monitor BMP Stable H/o R DVT/PE: S/p IVC filter Hold today dose coumadin INR 5.1 HTN: Stable Continue home meds Hypothyroidism: TSH elevated to 6.3 Levothyroxine increased to 37.5 DVT px Coumadin on hold INR 5.1 today CODE STATUS FULL CODE DISPOSITION Discharge once medically stable Consultants: Nephro Ortho Surgery Vascular surgery wound care Procedures: S/P wound debridement Current Inpatient Medications: Current Inpatient Medications Medications (Trade) Dose Ordered Sig/Miguel Route Start Time Stop Time Status Last Admin Dose Admin Glucose (Glucose 40% Gel) 15-30 GRAMS 15 GRAMS... UD PRN PO 06/30/17 14:30 07/30/17 14:29 Glucose (Glucose Chew Tab) 4-8 Tablets 4 Tabl... UD PRN PO 06/30/17 14:30 07/30/17 14:29 Dextrose (Dextrose 50% 50ML Syringe) 25-50ML OF 50% DW IV FOR... UD PRN IV 06/30/17 14:30 07/30/17 14:29 Glucagon (Glucagon Inj) 1 mg UD PRN SQ 06/30/17 14:30 07/30/17 14:29 Miscellaneous Information (Consult Glycemic Management Pharmacy) 1 ea UD PRN N/A 06/30/17 14:43 07/30/17 14:42 Insulin Aspart (novoLOG ASPART) SLIDING SCALE ACHS SC 06/30/17 16:15 07/30/17 16:14 07/04/17 18:08 19 UNITS Insulin Detemir (Levemir Flexpen/ FlexTouch) 10 units BID SC 06/30/17 21:00 07/30/17 20:59 07/04/17 08:58 10 UNITS Acetaminophen/ Codeine Phosphate (Tylenol w/ Codeine #3 Tab) 1 tab Q6H PRN PO 06/30/17 15:30 07/30/17 15:29 07/04/17 17:23 1 TAB Albuterol (Ventolin Hfa Inhaler) 2 puffs Q6H PRN INH 06/30/17 15:30 07/30/17 15:29 Atorvastatin Calcium (Lipitor Tab) 80 mg HS PO 06/30/17 21:00 07/30/17 20:59 07/03/17 19:32 80 MG Carvedilol (Coreg Tab) 25 mg BID PO 06/30/17 21:00 07/30/17 20:59 07/04/17 07:54 25 MG Hydroxyzine HCl (Vistaril Tab) 25 mg QID PRN PO 06/30/17 15:30 07/30/17 15:29 07/02/17 09:06 25 MG Loratadine (Claritin Tab) 10 mg DAILY PO 07/01/17 09:00 07/31/17 08:59 07/04/17 07:53 10 MG Magnesium Hydroxide (Milk Of Magnesia Susp) 30 ml DAILY PRN PO 06/30/17 15:30 07/30/17 15:29 Nitroglycerin (Nitrostat Tab) 0.4 mg UD PRN UT 06/30/17 15:30 07/30/17 15:29 Nystatin (Mycostatin Powder) 1 appln DAILY EXT 07/01/17 09:00 07/31/17 08:59 07/04/17 07:52 1 APPLN Ondansetron HCl (Zofran Tab) 4 mg Q8 PRN PO 06/30/17 15:30 07/30/17 15:29 Pregabalin (Lyrica Cap) 75 mg BID PO 06/30/17 21:00 07/30/17 20:59 07/04/17 08:00 75 MG Senna/Docusate Sodium (Senokot S Tab) 2 tab HS PO 06/30/17 21:00 07/30/17 20:59 07/03/17 19:33 2 TAB Tamsulosin HCl (Flomax Cap) 0.4 mg HS PO 06/30/17 21:00 07/30/17 20:59 07/03/17 19:44 0.4 MG Trazodone HCl (Desyrel Tab) 50 mg HS PO 06/30/17 21:00 07/30/17 20:59 07/03/17 19:32 50 MG Ursodiol (Actigall Cap) 300 mg BID PO 06/30/17 21:00 07/30/17 20:59 07/04/17 07:53 300 MG Venlafaxine HCl (effeXOR TAB) 75 mg QAM PO 07/01/17 09:00 07/31/17 08:59 07/04/17 07:52 75 MG Pantoprazole Sodium (Protonix Tab) 40 mg DAILY PO 07/01/17 09:00 07/31/17 08:59 07/04/17 07:53 40 MG Miscellaneous Information (Check Fentanyl Patch Placement) 1 ea QS N/A 07/01/17 00:00 07/31/17 00:00 07/04/17 16:54 1 EA Fentanyl (Duragesic Patch) 25 mcg Q72H TD 07/03/17 08:00 07/17/17 07:59 07/03/17 09:09 25 MCG Miscellaneous (Fentanyl Patch Remove & Waste) 1 ea Q3D@0759 N/A 07/03/17 07:59 08/02/17 07:58 07/03/17 07:59 1 EA Daptomycin (Consult) 1 ea UD PRN N/A 06/30/17 18:35 07/30/17 18:34 Daptomycin 800 mg/ Syringe 16 ml @ 8 mls/min Q24H IV 06/30/17 19:00 07/10/17 18:59 07/04/17 18:10 8 MLS/MIN Imipenem/ Cilastatin Sodium 500 mg/Dextrose 110 ml @ 110 mls/hr Q8H IV 06/30/17 20:00 07/10/17 19:59 07/04/17 13:23 110 MLS/HR Imipenem/ Cilastatin Sodium (Consult) 1 ea UD PRN N/A 06/30/17 18:45 07/30/17 18:44 Potassium Chloride (Klor-Con M10) 10 meq BIDM PO 07/01/17 16:45 07/31/17 16:44 07/04/17 17:23 10 MEQ Polyethylene (Miralax Powder Packet) 17 gm QAM PO 07/02/17 11:00 08/01/17 10:59 07/04/17 07:53 17 GM Mupirocin (Bactroban 2% Oint) 1 appln BID EXT 07/02/17 21:00 07/07/17 20:59 07/04/17 07:53 1 APPLN Levothyroxine Sodium (Synthroid Tab) 37.5 mcg DAILYBB PO 07/04/17 06:30 07/31/17 05:59 07/04/17 05:40 37.5 MCG Iron Sucrose 100 mg/Sodium Chloride 105 ml @ 420 mls/hr TODAY@1999 IV 07/04/17 20:00 07/04/17 20:14 Iron Sucrose 100 mg/Sodium Chloride 105 ml @ 420 mls/hr ONE ONCE IV 07/05/17 08:00 07/05/17 08:14
[2017-07-04] MEDS ORDERED: IRON SUCROSE INJ 100 MG in SODIUM CHLORIDE 0.9% 100ML 100 ML IV SCH (20:00)
[2017-07-04] MEDS: TAMSULOSIN HCL 0.4 MG CAP PO SCH (20:40)
[2017-07-04] MEDS: ATORVASTATIN 40 MG TAB PO SCH (20:41)
[2017-07-04] MEDS: DOCUSATE SODIUM/SENNA 50/8.6MG TAB PO SCH (20:42)
[2017-07-04] MEDS: TRAZODONE HCL 50 MG TAB PO SCH (22:07)
[2017-07-05] MEDS: CHECK FENTANYL PATCH PLACEMENT SCH ×4 (00:23→22:53)
[2017-07-05] MEDS: IMIPENEM/CILASTATIN IV 500 MG in D5W 100ML IV SCH ×3 (05:27→20:19)
[2017-07-05] MEDS: ALBUMIN 25% 50 ML with FUROSEMIDE INJ 80 MG IV SCH ×6 (06:46→18:10)
[2017-07-05 06:50] VITALS: BP 150/79; PULSE 65
[2017-07-05] MEDS: LEVOTHYROXINE 25 MCG TAB PO SCH (07:17)
[2017-07-05 07:51] LABS: MEAN CELL VOLUME 82.9 fL (80-100); MEAN CORPUSCULAR HEMOGLOBIN 25.4 pg (25-34); MEAN CORPUSCULAR HGB CONC 30.7 g/dl (32-36); MEAN PLATELET VOLUME 9.2 fL (7.4-10.4); PLATELET COUNT 232 K/uL (130-400); RED BLOOD COUNT 3.62 M/uL (4.7-6.1); WHITE BLOOD COUNT 8.45 K/uL (4.8-10.8)
[2017-07-05 07:52] VITALS: BP 136/82; PULSE 62; TEMP 36.6; O2SAT 96
[2017-07-05 07:58] LABS: PROTHROMBIN TIME (PATIENT) 33.9 SECONDS (9.0-12.0)
[2017-07-05] MEDS ORDERED: IRON SUCROSE INJ 100 MG in SODIUM CHLORIDE 0.9% 100ML 100 ML IV ONE (08:00)
[2017-07-05 08:22] LABS: BUN/CREATININE RATIO 28.1 (10-20); CALCIUM 8.6 mg/dl (8.5-10.1); CREATININE 2.74 mg/dl (0.60-1.40); POTASSIUM 3.9 mmol/L (3.5-5.1)
[2017-07-05] MEDS: ACETAMINOPHEN/CODEINE 300/30MG TAB PO PRN ×2 (08:50→15:43)
[2017-07-05] MEDS: LORATADINE 10 MG TAB PO SCH (08:51)
[2017-07-05] MEDS: PREGABALIN 75 MG CAP PO SCH ×2 (08:51→20:18)
[2017-07-05] MEDS: PANTOprazole SOD 40 MG TAB PO SCH (08:51)
[2017-07-05] MEDS: VENLAFAXINE HCL 37.5 MG TAB PO SCH (08:51)
[2017-07-05] MEDS: POLYETHYLENE (MIRALAX) 17 GM PACK PO SCH (08:52)
[2017-07-05] MEDS: CARVEDILOL 25 MG TAB PO SCH ×2 (08:52→20:06)
[2017-07-05] MEDS: POTASSIUM CHLORIDE 10 MEQ TABCR PO SCH ×2 (08:52→17:42)
[2017-07-05] MEDS: URSODIOL 300 MG CAP PO SCH ×2 (08:52→20:06)
[2017-07-05] MEDS: NYSTATIN POWDER 15GM BTL EXT SCH (08:53)
[2017-07-05] MEDS: MUPIROCIN 2% OINT 22 GM TUBE EXT SCH ×2 (08:58→20:20)
[2017-07-05] MEDS: INSULIN ASPART 100 UNITS/ML 3 ML PEN SC SCH ×4 (09:02→20:19)
[2017-07-05] MEDS: INSULIN DETEMIR FLEXPEN/FLEX TOUCH 100 UNITS/ML 3ML SC SCH ×2 (09:03→20:22)
[2017-07-05] MEDS ORDERED: INSULIN GLARGINE SOLOSTAR 100 UNITS/ML 3 ML PEN SC ONE (12:15)
[2017-07-05] MEDS ORDERED: INSULIN DETEMIR FLEXPEN/FLEX TOUCH 100 UNITS/ML 3ML SC ONE (12:30)
--- NOTE | 2017-07-05 15:11 | Pharmacy Progress Note ---
Glycemic Control Progress Note Date of Service Jul 05, 2017. Scope Glycemic Pharmacist consulted for glycemic control to write orders per [facility] inpatient glycemic control protocol. Objective Accuchecks BSG (last 24hrs): Test 07/04/17 16:20 07/04/17 20:06 07/05/17 07:34 07/05/17 08:16 Bedside Glucose 286 mg/dl (70-99) 162 mg/dl (70-99) 94 mg/dl (70-99) Random Glucose 101 mg/dl (70-99) Test 07/05/17 11:59 Bedside Glucose 166 mg/dl (70-99) Recent Pertinent Medications The patient is currently receiving: * Basal insulin: Levemir 10 units every 12 hours * Correctional Insulin: Novolog Correction per scale ACHS Goal Range: Low 110 mg/dL - High 140 mg/dL Correction Factor: 20 mg/dL/unit * Prandial insulin: Per carb ratio of 1 unit per 6 grams CHO consumed Outpatient Anti-Diabetic Meds Levemir 15 units BID + Novolog Assessment & Plan ASSESSMENT: * See progress note from 06/30/17 for more background info, in short: * Pt receiving SQ basal bolus insulin regimen for hyperglycemia secondary to baseline DM (outpatient regimen on hold), infection (diabetic foot infection currently on Primaxin and Cubicin) * Patient is currently receiving an average of 40-50 units of insulin per day * 20 units of basal insulin * 37 units of prandial/correctional insulin * BSGs ranging 97-286 mg/dl over the past 24hrs * Changes needed to insulin regimen: * AM Fasting BSG = 94 mg/dl. This is within goal range for patient based on inpatient targets and co-morbidities. This is similar to yesterday's fasting blood sugar of 100 mg/dL and the previous day's as well. HOWEVER at lunch both yesterday and today, the patient had a large increase in blood sugar. Suspect that patient requires more basal insulin during the day but not at night. Therefore gave additional Levemir this morning and increased to total of 15 units in the morning. Unsure if this will effect the amount of basal that the patient requires in the evening so left a scale for today. * Post-prandial BSGs are elevated. Tightened slightly. * Total daily dose = ~50 units. Adjusted regimen appropriately. PLAN FOR INPATIENT GLYCEMIC CONTROL: * INCREASING Lantus to 15 units SQ in the morning and then 5-10 units in the evening * TIGHTENING correction factor to 20 mg/dl/unit * TIGHTENING carb ratio to 1 unit per 6 grams CHO consumed * Continuing goal range of Low 110 mg/dL - High 140 mg/dL RECOMMENDATIONS FOR DISCHARGE: * Patient's HbA1C goal is around 7.5-8.0% according to Elements of Diabetes Care Scoring Scale....currently Hb1C is at goal so therefore continue current regimen at home. Thank you.
[2017-07-05 15:30] VITALS: BP 113/71; PULSE 62; TEMP 36.2; O2SAT 94
[2017-07-05 18:11] VITALS: BP 137/76; PULSE 63
--- NOTE | 2017-07-05 19:47 | Progress Note ---
Medicine Progress Note Date & Time of Visit: Jul 05, 2017 at 17:42. Subjective Pt was seen and examined Sitting at the edge of the bed with no distress Pt said that he feels fine Denies any chest pain, palpitation, dizziness and SOB Objective Last 8 Hrs Date Time Temp Pulse Resp B/P (MAP) Pulse Ox O2 Delivery O2 Flow Rate FiO2 07/05/17 18:11 63 137/76 (96) 07/05/17 16:00 Room Air 07/05/17 15:30 36.2 62 18 113/71 (85) 94 Room Air Physical Exam: General- No acute distress Head- atraumatic Eyes- PERRL, EOMI ENT- oropharynx clear Neck- supple, no JVD Lungs- clear to auscultation and percussion Heart- regular rhythm; no murmur Abdomen- normal bowel sounds, soft Extremities-B/L LE Edema R>L.discoloration skin/toes nail.gangrenous of right big toes,darkened spots in all toes toes. Dressing in Right leg Neuro- alert, oriented x 3; PERRL, EOMI; no facial palsy Skin- warm & dry Laboratory Results: Last 24 Hours Test 07/04/17 20:06 07/05/17 07:34 07/05/17 08:16 07/05/17 11:59 Bedside Glucose 162 mg/dl 94 mg/dl 166 mg/dl White Blood Count 8.45 K/uL Red Blood Count 3.62 M/uL Hemoglobin 9.2 g/dL Hematocrit 30.0 % Mean Corpuscular Volume 82.9 fL Mean Corpuscular Hemoglobin 25.4 pg Mean Corpuscular Hemoglobin Concent 30.7 g/dl RDW Standard Deviation 60.1 fL RDW Coefficient of Variation 19.7 % Platelet Count 232 K/uL Mean Platelet Volume 9.2 fL Prothrombin Time 33.9 SECONDS Prothromb Time International Ratio 3.0 Sodium Level 138 mmol/L Potassium Level 3.9 mmol/L Chloride Level 104 mmol/L Carbon Dioxide Level 24 mmol/L Anion Gap 9.0 mmol/L Blood Urea Nitrogen 77 mg/dl Creatinine 2.74 mg/dl Est Creatinine Clear Calc Drug Dose 57.6 ml/min Estimated GFR () 28.5 Estimated GFR (Non- 24.6 BUN/Creatinine Ratio 28.1 Random Glucose 101 mg/dl Calcium Level 8.6 mg/dl Test 07/05/17 16:34 Bedside Glucose 110 mg/dl Assessment & Plan This is a 56yo M with a PMH of HTN, DM II, h/o chronic R DVT, 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 Bilateral lower extremity swelling: Multifactorial with h/o lymphedema, CHF, CKD, DM type 2 Continue IV lasix 80 BID with albumin Monitor I/O nephrology on board 07/05 Continue Lasix 80mg TID Continue monitor I/Os Has been 5L negative On 1.5L fluid restriction Continue monitor renal function LE swelling slightly improves Nephrology on board Severe BLE cellulitis: H/o chronic LE cellulitis with antibiotic resistance, RLE > LLE Grew multiple resistant organisms in the past Multiple hospital admission Worsening as per patient CT LE showed No evidence of abscess formation, drainable fluid collection, or necrotizing fascitis Surgery was consulted and no surgical intervention at this time from surgery team Vascular surgery consulted, No surgical intervention; recommended PATRICIA wrap Infectious disease on board recommended combination of daptomycin and imipenem Ortho consulted recommended no surgical intervention at this time Wound care consult s/p debridement of the ulcerative sites by wound care physician yesterday Preliminary wound cx grew gram negative bacilli Continue daily wound care Chronic systolic/diastolic HF: Asymptomatic CXR showed mild central pulmonary vascular congestion without overt edema. Continue 80mg IV Lasix TID with albumin Last Echo in Mar 2017 showed EF of 55-60%, mild concentric LVH, left atrium severely dilated Continue 1.5L fluid restriction continue monitor BMP Continue Daily I/O -5L output DM II: Hgb a1c of 7.7 in May 2017 On levemir Continue Insulin coverage Continue monitor BS Chronic A Fib: rate is controlled INR 3 today Resume coumadin Continue monitor lNR BART on CKD Stage IV: Creatine on admission 2.85 Baseline GFR ~30, Cr 2.4 Creatine 2.7 Mostly creatine will worsening due to IV lasix Consult nephrology Continue monitor BMP Stable H/o R DVT/PE: S/p IVC filter Today coumadin resumed INR 3.0 HTN: Stable Continue home meds Hypothyroidism: TSH elevated to 6.3 Levothyroxine increased to 37.5 DVT px on Coumadin INR 3.0 today CODE STATUS FULL CODE DISPOSITION Discharge once medically stable Consultants: Nephro Ortho Surgery Vascular surgery wound care Procedures: S/P wound debridement Current Inpatient Medications: Current Inpatient Medications Medications (Trade) Dose Ordered Sig/Miguel Route Start Time Stop Time Status Last Admin Dose Admin Glucose (Glucose 40% Gel) 15-30 GRAMS 15 GRAMS... UD PRN PO 06/30/17 14:30 07/30/17 14:29 Glucose (Glucose Chew Tab) 4-8 Tablets 4 Tabl... UD PRN PO 06/30/17 14:30 07/30/17 14:29 Dextrose (Dextrose 50% 50ML Syringe) 25-50ML OF 50% DW IV FOR... UD PRN IV 06/30/17 14:30 07/30/17 14:29 Glucagon (Glucagon Inj) 1 mg UD PRN SQ 06/30/17 14:30 07/30/17 14:29 Miscellaneous Information (Consult Glycemic Management Pharmacy) 1 ea UD PRN N/A 06/30/17 14:43 07/30/17 14:42 Insulin Aspart (novoLOG ASPART) SLIDING SCALE ACHS SC 06/30/17 16:15 07/30/17 16:14 07/05/17 17:45 10 UNITS Acetaminophen/ Codeine Phosphate (Tylenol w/ Codeine #3 Tab) 1 tab Q6H PRN PO 06/30/17 15:30 07/30/17 15:29 07/05/17 15:43 1 TAB Albuterol (Ventolin Hfa Inhaler) 2 puffs Q6H PRN INH 06/30/17 15:30 07/30/17 15:29 Atorvastatin Calcium (Lipitor Tab) 80 mg HS PO 06/30/17 21:00 07/30/17 20:59 07/04/17 20:41 80 MG Carvedilol (Coreg Tab) 25 mg BID PO 06/30/17 21:00 07/30/17 20:59 07/05/17 08:52 25 MG Hydroxyzine HCl (Vistaril Tab) 25 mg QID PRN PO 06/30/17 15:30 07/30/17 15:29 07/02/17 09:06 25 MG Loratadine (Claritin Tab) 10 mg DAILY PO 07/01/17 09:00 07/31/17 08:59 07/05/17 08:51 10 MG Magnesium Hydroxide (Milk Of Magnesia Susp) 30 ml DAILY PRN PO 06/30/17 15:30 07/30/17 15:29 Nitroglycerin (Nitrostat Tab) 0.4 mg UD PRN UT 06/30/17 15:30 07/30/17 15:29 Nystatin (Mycostatin Powder) 1 appln DAILY EXT 07/01/17 09:00 07/31/17 08:59 07/05/17 08:53 1 APPLN Ondansetron HCl (Zofran Tab) 4 mg Q8 PRN PO 06/30/17 15:30 07/30/17 15:29 Pregabalin (Lyrica Cap) 75 mg BID PO 06/30/17 21:00 07/30/17 20:59 07/05/17 08:51 75 MG Senna/Docusate Sodium (Senokot S Tab) 2 tab HS PO 06/30/17 21:00 07/30/17 20:59 07/04/17 20:42 2 TAB Tamsulosin HCl (Flomax Cap) 0.4 mg HS PO 06/30/17 21:00 07/30/17 20:59 07/04/17 20:40 0.4 MG Trazodone HCl (Desyrel Tab) 50 mg HS PO 06/30/17 21:00 07/30/17 20:59 07/04/17 22:07 50 MG Ursodiol (Actigall Cap) 300 mg BID PO 06/30/17 21:00 07/30/17 20:59 07/05/17 08:52 300 MG Venlafaxine HCl (effeXOR TAB) 75 mg QAM PO 07/01/17 09:00 07/31/17 08:59 07/05/17 08:51 75 MG Pantoprazole Sodium (Protonix Tab) 40 mg DAILY PO 07/01/17 09:00 07/31/17 08:59 07/05/17 08:51 40 MG Miscellaneous Information (Check Fentanyl Patch Placement) 1 ea QS N/A 07/01/17 00:00 07/31/17 00:00 07/05/17 16:00 1 EA Fentanyl (Duragesic Patch) 25 mcg Q72H TD 07/03/17 08:00 07/17/17 07:59 07/03/17 09:09 25 MCG Miscellaneous (Fentanyl Patch Remove & Waste) 1 ea Q3D@0759 N/A 07/03/17 07:59 08/02/17 07:58 07/03/17 07:59 1 EA Daptomycin (Consult) 1 ea UD PRN N/A 06/30/17 18:35 07/30/17 18:34 Daptomycin 800 mg/ Syringe 16 ml @ 8 mls/min Q24H IV 06/30/17 19:00 07/10/17 18:59 07/04/17 18:10 8 MLS/MIN Imipenem/ Cilastatin Sodium 500 mg/Dextrose 110 ml @ 110 mls/hr Q8H IV 06/30/17 20:00 07/10/17 19:59 07/05/17 13:31 110 MLS/HR Imipenem/ Cilastatin Sodium (Consult) 1 ea UD PRN N/A 06/30/17 18:45 07/30/17 18:44 Potassium Chloride (Klor-Con M10) 10 meq BIDM PO 07/01/17 16:45 07/31/17 16:44 07/05/17 17:42 10 MEQ Polyethylene (Miralax Powder Packet) 17 gm QAM PO 07/02/17 11:00 08/01/17 10:59 07/05/17 08:52 17 GM Mupirocin (Bactroban 2% Oint) 1 appln BID EXT 07/02/17 21:00 07/07/17 20:59 07/05/17 08:58 1 APPLN Levothyroxine Sodium (Synthroid Tab) 37.5 mcg DAILYBB PO 07/04/17 06:30 07/31/17 05:59 07/05/17 07:17 37.5 MCG Furosemide 80 mg/ Albumin Human 58 ml @ 54 mls/hr TID@0600,1200,1800 IV 07/04/17 19:30 07/07/17 19:29 07/05/17 18:10 54 MLS/HR Insulin Detemir (Levemir Flexpen/ FlexTouch) 15 units QAM SC 07/06/17 08:00 08/05/17 07:59 Insulin Detemir (Levemir Flexpen/ FlexTouch) SEE PROTOCOL TEXT PLEASE HS SC 07/05/17 21:00 08/04/17 20:59
[2017-07-05] MEDS ORDERED: WARFARIN SOD 2 MG TAB PO ONE (20:00)
[2017-07-05] MEDS: DAPTOMYCIN IV SCH (20:04)
[2017-07-05] MEDS: ATORVASTATIN 40 MG TAB PO SCH (20:07)
[2017-07-05] MEDS: DOCUSATE SODIUM/SENNA 50/8.6MG TAB PO SCH (20:07)
[2017-07-05] MEDS: TAMSULOSIN HCL 0.4 MG CAP PO SCH (20:07)
[2017-07-05] MEDS: TRAZODONE HCL 50 MG TAB PO SCH (20:07)
[2017-07-05 23:31] VITALS: BP 150/78; PULSE 70; TEMP 36.5; O2SAT 94
[2017-07-06] MEDS: ACETAMINOPHEN/CODEINE 300/30MG TAB PO PRN ×3 (02:05→16:14)
[2017-07-06] MEDS: IMIPENEM/CILASTATIN IV 500 MG in D5W 100ML IV SCH ×2 (04:46→11:19)
[2017-07-06] MEDS: LEVOTHYROXINE 25 MCG TAB PO SCH (05:42)
[2017-07-06] MEDS: ALBUMIN 25% 50 ML with FUROSEMIDE INJ 80 MG IV SCH ×6 (05:43→18:09)
[2017-07-06 06:44] LABS: INR 2.1 (0.9-1.1); PROTHROMBIN TIME (PATIENT) 23.4 SECONDS (9.0-12.0)
[2017-07-06 07:18] LABS: BUN/CREATININE RATIO 28.2 (10-20); CALCIUM 8.1 mg/dl (8.5-10.1); CREATININE 2.73 mg/dl (0.60-1.40); POTASSIUM 3.7 mmol/L (3.5-5.1)
[2017-07-06 07:38] VITALS: BP 148/78; PULSE 63; TEMP 36.7; O2SAT 97
[2017-07-06] MEDS: FENTANYL PATCH REMOVE & WASTE SCH (07:59)
[2017-07-06] MEDS: CHECK FENTANYL PATCH PLACEMENT SCH ×3 (08:00→23:43)
[2017-07-06] MEDS: VENLAFAXINE HCL 37.5 MG TAB PO SCH (09:07)
[2017-07-06] MEDS: LORATADINE 10 MG TAB PO SCH (09:08)
[2017-07-06] MEDS: CARVEDILOL 25 MG TAB PO SCH ×2 (09:08→19:42)
[2017-07-06] MEDS: URSODIOL 300 MG CAP PO SCH ×2 (09:08→19:42)
[2017-07-06] MEDS: POLYETHYLENE (MIRALAX) 17 GM PACK PO SCH (09:09)
[2017-07-06] MEDS: PANTOprazole SOD 40 MG TAB PO SCH (09:09)
[2017-07-06] MEDS: INSULIN ASPART 100 UNITS/ML 3 ML PEN SC SCH ×4 (09:19→21:00)
[2017-07-06] MEDS: INSULIN DETEMIR FLEXPEN/FLEX TOUCH 100 UNITS/ML 3ML SC SCH ×2 (09:20→21:16)
[2017-07-06] MEDS: PREGABALIN 75 MG CAP PO SCH ×2 (09:21→19:53)
[2017-07-06] MEDS: MUPIROCIN 2% OINT 22 GM TUBE EXT SCH ×2 (09:24→19:40)
[2017-07-06] MEDS: NYSTATIN POWDER 15GM BTL EXT SCH (09:24)
[2017-07-06] MEDS: FENTANYL 25 MCG/HR TDSY TD SCH (09:27)
[2017-07-06] MEDS: POTASSIUM CHLORIDE 10 MEQ TABCR PO SCH ×2 (12:23→18:09)
[2017-07-06] MEDS: AZTREONAM IV 2,000 MG in DEXTROSE 5% 100ML 100 ML IV SCH ×2 (12:40→19:42)
[2017-07-06 16:04] VITALS: BP 148/76; PULSE 63; TEMP 36.5; O2SAT 95
[2017-07-06] MEDS: WARFARIN SOD 2 MG TAB PO SCH (16:13)
--- NOTE | 2017-07-06 18:57 | Progress Note ---
Medicine Progress Note Date & Time of Visit: Jul 06, 2017 at 18:52. Subjective Pt was seen and examined Sitting at the edge of the bed with no distress Denies any chest pain, palpitation and SOB Objective Last 8 Hrs Date Time Temp Pulse Resp B/P (MAP) Pulse Ox O2 Delivery O2 Flow Rate FiO2 07/06/17 16:04 36.5 63 18 148/76 (100) 95 Room Air Physical Exam: General- No acute distress Head- atraumatic Eyes- PERRL, EOMI ENT- oropharynx clear Neck- supple, no JVD Lungs- clear to auscultation and percussion Heart- regular rhythm; no murmur Abdomen- normal bowel sounds, soft Extremities-B/L LE Edema R>L.discoloration skin/toes nail.gangrenous of right big toes,darkened spots in all toes toes. Dressing in Right leg Neuro- alert, oriented x 3; PERRL, EOMI; no facial palsy Skin- warm & dry Laboratory Results: Last 24 Hours Test 07/05/17 20:16 07/06/17 05:38 07/06/17 07:44 07/06/17 11:20 Bedside Glucose 139 mg/dl 254 mg/dl 106 mg/dl Prothrombin Time 23.4 SECONDS Prothromb Time International Ratio 2.1 Sodium Level 138 mmol/L Potassium Level 3.7 mmol/L Chloride Level 102 mmol/L Carbon Dioxide Level 24 mmol/L Anion Gap 12.0 mmol/L Blood Urea Nitrogen 77 mg/dl Creatinine 2.73 mg/dl Est Creatinine Clear Calc Drug Dose 57.8 ml/min Estimated GFR () 28.6 Estimated GFR (Non- 24.7 BUN/Creatinine Ratio 28.2 Random Glucose 92 mg/dl Calcium Level 8.1 mg/dl Total Creatine Kinase 100 U/L Chemistry Specimen Hemolysis Test 07/06/17 16:19 Bedside Glucose 103 mg/dl Assessment & Plan This is a 56yo M with a PMH of HTN, DM II, h/o chronic R DVT, 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 Bilateral lower extremity swelling: Multifactorial with h/o lymphedema, CHF, CKD, DM type 2 Continue IV lasix 80 BID with albumin Monitor I/O nephrology on board 07/05 Continue Lasix 80mg TID Continue monitor I/Os On 1.5L fluid restriction Continue monitor renal function LE swelling slightly improves Nephrology on board Severe BLE cellulitis: H/o chronic LE cellulitis with antibiotic resistance, RLE > LLE Grew multiple resistant organisms in the past Multiple hospital admission Worsening as per patient CT LE showed No evidence of abscess formation, drainable fluid collection, or necrotizing fascitis Surgery was consulted and no surgical intervention at this time from surgery team Vascular surgery consulted, No surgical intervention; recommended PATRICIA wrap Infectious disease on board recommended combination of daptomycin and imipenem Ortho consulted recommended no surgical intervention at this time Wound care consult s/p debridement of the ulcerative sites by wound care physician yesterday Preliminary wound cx grew gram negative bacilli Continue daily wound care Chronic systolic/diastolic HF: Asymptomatic CXR showed mild central pulmonary vascular congestion without overt edema. Continue 80mg IV Lasix TID with albumin Last Echo in Mar 2017 showed EF of 55-60%, mild concentric LVH, left atrium severely dilated Continue 1.5L fluid restriction continue monitor BMP Continue Daily I/O -5L output DM II: Hgb a1c of 7.7 in May 2017 On levemir Continue Insulin coverage Continue monitor BS Chronic A Fib: rate is controlled INR 2.1 today coumadin 2mg Continue monitor lNR BART on CKD Stage IV: Creatine on admission 2.85 Baseline GFR ~30, Cr 2.4 Creatine 2.7 Mostly creatine will worsening due to IV lasix Consult nephrology Continue monitor BMP Stable H/o R DVT/PE: S/p IVC filter Today coumadin resumed INR 3.0 HTN: Stable Continue home meds Hypothyroidism: TSH elevated to 6.3 Levothyroxine increased to 37.5 DVT px on Coumadin INR 2.1 today CODE STATUS FULL CODE DISPOSITION Discharge once medically stable Consultants: Nephro Ortho Surgery Vascular surgery wound care Procedures: S/P wound debridement Current Inpatient Medications: Current Inpatient Medications Medications (Trade) Dose Ordered Sig/Miguel Route Start Time Stop Time Status Last Admin Dose Admin Glucose (Glucose 40% Gel) 15-30 GRAMS 15 GRAMS... UD PRN PO 06/30/17 14:30 07/30/17 14:29 Glucose (Glucose Chew Tab) 4-8 Tablets 4 Tabl... UD PRN PO 06/30/17 14:30 07/30/17 14:29 Dextrose (Dextrose 50% 50ML Syringe) 25-50ML OF 50% DW IV FOR... UD PRN IV 06/30/17 14:30 07/30/17 14:29 Glucagon (Glucagon Inj) 1 mg UD PRN SQ 06/30/17 14:30 07/30/17 14:29 Miscellaneous Information (Consult Glycemic Management Pharmacy) 1 ea UD PRN N/A 06/30/17 14:43 07/30/17 14:42 Insulin Aspart (novoLOG ASPART) SLIDING SCALE ACHS SC 06/30/17 16:15 07/30/17 16:14 07/06/17 18:16 12 UNITS Acetaminophen/ Codeine Phosphate (Tylenol w/ Codeine #3 Tab) 1 tab Q6H PRN PO 06/30/17 15:30 07/30/17 15:29 07/06/17 16:14 1 TAB Albuterol (Ventolin Hfa Inhaler) 2 puffs Q6H PRN INH 06/30/17 15:30 07/30/17 15:29 Atorvastatin Calcium (Lipitor Tab) 80 mg HS PO 06/30/17 21:00 07/30/17 20:59 07/05/17 20:07 80 MG Carvedilol (Coreg Tab) 25 mg BID PO 06/30/17 21:00 07/30/17 20:59 07/06/17 09:08 25 MG Hydroxyzine HCl (Vistaril Tab) 25 mg QID PRN PO 06/30/17 15:30 07/30/17 15:29 07/02/17 09:06 25 MG Loratadine (Claritin Tab) 10 mg DAILY PO 07/01/17 09:00 07/31/17 08:59 07/06/17 09:08 10 MG Magnesium Hydroxide (Milk Of Magnesia Susp) 30 ml DAILY PRN PO 06/30/17 15:30 07/30/17 15:29 Nitroglycerin (Nitrostat Tab) 0.4 mg UD PRN UT 06/30/17 15:30 07/30/17 15:29 Nystatin (Mycostatin Powder) 1 appln DAILY EXT 07/01/17 09:00 07/31/17 08:59 07/06/17 09:24 1 APPLN Ondansetron HCl (Zofran Tab) 4 mg Q8 PRN PO 06/30/17 15:30 07/30/17 15:29 Pregabalin (Lyrica Cap) 75 mg BID PO 06/30/17 21:00 07/30/17 20:59 07/06/17 09:21 75 MG Senna/Docusate Sodium (Senokot S Tab) 2 tab HS PO 06/30/17 21:00 07/30/17 20:59 07/05/17 20:07 2 TAB Tamsulosin HCl (Flomax Cap) 0.4 mg HS PO 06/30/17 21:00 07/30/17 20:59 07/05/17 20:07 0.4 MG Trazodone HCl (Desyrel Tab) 50 mg HS PO 06/30/17 21:00 07/30/17 20:59 07/05/17 20:07 50 MG Ursodiol (Actigall Cap) 300 mg BID PO 06/30/17 21:00 07/30/17 20:59 07/06/17 09:08 300 MG Venlafaxine HCl (effeXOR TAB) 75 mg QAM PO 07/01/17 09:00 07/31/17 08:59 07/06/17 09:07 75 MG Pantoprazole Sodium (Protonix Tab) 40 mg DAILY PO 07/01/17 09:00 07/31/17 08:59 07/06/17 09:09 40 MG Miscellaneous Information (Check Fentanyl Patch Placement) 1 ea QS N/A 07/01/17 00:00 07/31/17 00:00 07/06/17 16:07 1 EA Fentanyl (Duragesic Patch) 25 mcg Q72H TD 07/03/17 08:00 07/17/17 07:59 07/06/17 09:27 25 MCG Miscellaneous (Fentanyl Patch Remove & Waste) 1 ea Q3D@0759 N/A 07/03/17 07:59 08/02/17 07:58 07/06/17 07:59 1 EA Daptomycin (Consult) 1 ea UD PRN N/A 06/30/17 18:35 07/30/17 18:34 Daptomycin 800 mg/ Syringe 16 ml @ 8 mls/min Q24H IV 06/30/17 19:00 07/10/17 18:59 07/05/17 20:04 8 MLS/MIN Potassium Chloride (Klor-Con M10) 10 meq BIDM PO 07/01/17 16:45 07/31/17 16:44 07/06/17 18:09 10 MEQ Polyethylene (Miralax Powder Packet) 17 gm QAM PO 07/02/17 11:00 08/01/17 10:59 07/06/17 09:09 17 GM Mupirocin (Bactroban 2% Oint) 1 appln BID EXT 07/02/17 21:00 07/07/17 20:59 07/06/17 09:24 1 APPLN Levothyroxine Sodium (Synthroid Tab) 37.5 mcg DAILYBB PO 07/04/17 06:30 07/31/17 05:59 07/06/17 05:42 37.5 MCG Furosemide 80 mg/ Albumin Human 58 ml @ 54 mls/hr TID@0600,1200,1800 IV 07/04/17 19:30 07/07/17 19:29 07/06/17 18:09 54 MLS/HR Insulin Detemir (Levemir Flexpen/ FlexTouch) 15 units QAM SC 07/06/17 08:00 08/05/17 07:59 07/06/17 09:20 15 UNITS Insulin Detemir (Levemir Flexpen/ FlexTouch) SEE PROTOCOL TEXT PLEASE HS SC 07/05/17 21:00 08/04/17 20:59 07/05/17 20:22 5 UNITS Warfarin Sodium (Coumadin Tab) 2 mg DAILY@16 PO 07/06/17 16:00 08/05/17 15:59 07/06/17 16:13 2 MG Aztreonam 2000 mg/ Dextrose 110 ml @ 110 mls/hr Q8H IV 07/06/17 12:00 07/16/17 11:59 07/06/17 12:40 110 MLS/HR
[2017-07-06] MEDS: DAPTOMYCIN IV SCH (19:39)
[2017-07-06] MEDS: ATORVASTATIN 40 MG TAB PO SCH (19:42)
[2017-07-06] MEDS: TRAZODONE HCL 50 MG TAB PO SCH (19:42)
[2017-07-06] MEDS: DOCUSATE SODIUM/SENNA 50/8.6MG TAB PO SCH (19:42)
[2017-07-06] MEDS: TAMSULOSIN HCL 0.4 MG CAP PO SCH (19:42)
[2017-07-06 23:08] VITALS: BP 134/78; PULSE 65; TEMP 36.3; O2SAT 96
[2017-07-07] VITALS (8 sets, daily range): BP systolic 128–144; BP diastolic 68–78; PULSE 62–68; TEMP 36.4–36.8; O2SAT 94–96
[2017-07-07] MEDS: AZTREONAM IV 2,000 MG in DEXTROSE 5% 100ML 100 ML IV SCH ×3 (04:40→19:28)
[2017-07-07] MEDS: LEVOTHYROXINE 25 MCG TAB PO SCH (05:25)
[2017-07-07] MEDS: ACETAMINOPHEN/CODEINE 300/30MG TAB PO PRN ×4 (05:29→22:53)
[2017-07-07] MEDS: ALBUMIN 25% 50 ML with FUROSEMIDE INJ 80 MG IV SCH ×6 (06:19→18:19)
[2017-07-07 06:47] LABS: INR 1.9 (0.9-1.1); PROTHROMBIN TIME (PATIENT) 20.7 SECONDS (9.0-12.0)
[2017-07-07 06:56] LABS: BUN/CREATININE RATIO 29.3 (10-20); CALCIUM 8.1 mg/dl (8.5-10.1); CREATININE 2.61 mg/dl (0.60-1.40); POTASSIUM 3.6 mmol/L (3.5-5.1)
[2017-07-07] MEDS: PANTOprazole SOD 40 MG TAB PO SCH (09:31)
[2017-07-07] MEDS: LORATADINE 10 MG TAB PO SCH (09:31)
[2017-07-07] MEDS: CARVEDILOL 25 MG TAB PO SCH ×2 (09:32→19:28)
[2017-07-07] MEDS: URSODIOL 300 MG CAP PO SCH ×2 (09:32→19:27)
[2017-07-07] MEDS: VENLAFAXINE HCL 37.5 MG TAB PO SCH (09:32)
[2017-07-07] MEDS: POTASSIUM CHLORIDE 10 MEQ TABCR PO SCH ×2 (09:33→18:06)
[2017-07-07] MEDS: POLYETHYLENE (MIRALAX) 17 GM PACK PO SCH (09:33)
[2017-07-07] MEDS: NYSTATIN POWDER 15GM BTL EXT SCH (09:34)
[2017-07-07] MEDS: MUPIROCIN 2% OINT 22 GM TUBE EXT SCH ×2 (09:35→19:28)
[2017-07-07] MEDS: INSULIN ASPART 100 UNITS/ML 3 ML PEN SC SCH ×4 (09:45→21:00)
[2017-07-07] MEDS: PREGABALIN 75 MG CAP PO SCH ×2 (09:46→19:26)
[2017-07-07] MEDS: INSULIN DETEMIR FLEXPEN/FLEX TOUCH 100 UNITS/ML 3ML SC SCH ×2 (09:46→22:09)
[2017-07-07] MEDS: CHECK FENTANYL PATCH PLACEMENT SCH ×2 (09:49→15:34)
--- NOTE | 2017-07-07 14:55 | Pharmacy Progress Note ---
Glycemic Control Progress Note Date of Service Jul 07, 2017. Scope Glycemic Pharmacist consulted for glycemic control to write orders per [facility] inpatient glycemic control protocol. Objective Accuchecks BSG (last 24hrs): Test 07/06/17 16:19 07/06/17 20:05 07/07/17 05:59 07/07/17 07:10 Bedside Glucose 103 mg/dl (70-99) 115 mg/dl (70-99) 108 mg/dl (70-99) Random Glucose 98 mg/dl (70-99) Test 07/07/17 11:42 Bedside Glucose 118 mg/dl (70-99) Recent Pertinent Medications The patient is currently receiving: * Basal insulin: Levemir 15 units SQ in the morning and 5 units in the evening * Correctional Insulin: Novolog Correction per scale ACHS Goal Range: Low 110 mg/dL - High 140 mg/dL Correction Factor: 20 mg/dL/unit * Prandial insulin: Per carb ratio of 1 unit per 6 grams CHO consumed Outpatient Anti-Diabetic Meds Levemir 15 units SQ BID + Novolog Assessment & Plan ASSESSMENT: * See progress note from 06/30/17 for more background info, in short: * Pt receiving SQ basal bolus insulin regimen for hyperglycemia secondary to baseline DM (outpatient regimen on hold), infection (diabetic foot infection currently on Cubicin and Azactam) * Patient is currently receiving an average of 50 units of insulin per day * 20 units of basal insulin * 31 units of prandial/correctional insulin * BSGs ranging 92-115 mg/dl over the past 24hrs * Changes needed to insulin regimen: * AM Fasting BSG = 108 mg/dl. This is within goal range for patient based on inpatient targets and co-morbidities. Several days ago, adjustment was made to have more basal at breakfast. Yesterday post-prandial blood sugars were more appropriately controlled continue current regimen. * Post-prandial BSGs are within goal range - continue current regimen. * Total daily dose = ~50 units. PLAN FOR INPATIENT GLYCEMIC CONTROL: * Continue Levemir 15 units SQ in the morning and then 5-10 units in the evening * Continue correction factor to 20 mg/dl/unit * Continue carb ratio to 1 unit per 6 grams CHO consumed * Continuing goal range of Low 110 mg/dL - High 140 mg/dL RECOMMENDATIONS FOR DISCHARGE: * Patient's HbA1C goal is around 7.5-8.0% according to Elements of Diabetes Care Scoring Scale....currently Hb1C is at goal so therefore continue current regimen at home. Thank you.
[2017-07-07] MEDS: WARFARIN SOD 2 MG TAB PO SCH (15:34)
--- NOTE | 2017-07-07 16:57 | Progress Note ---
Medicine Progress Note Date & Time of Visit: Jul 07, 2017 at 16:51. Subjective Pt was seen and examined Lying in bed with no distress Pt said that he feels fine Denies any chest pain, palpitation, dizziness and SOB Objective Last 8 Hrs Date Time Temp Pulse Resp B/P (MAP) Pulse Ox O2 Delivery O2 Flow Rate FiO2 07/07/17 15:42 36.5 18 131/73 (92) 94 Room Air 07/07/17 15:40 96 Room Air 07/07/17 14:28 64 131/68 (89) 07/07/17 12:50 68 128/74 (92) Physical Exam: General- No acute distress Head- atraumatic Eyes- PERRL, EOMI ENT- oropharynx clear Neck- supple, no JVD Lungs- clear to auscultation and percussion Heart- regular rhythm; no murmur Abdomen- normal bowel sounds, soft Extremities-B/L LE Edema R>L.discoloration skin/toes nail.gangrenous of right big toes,darkened spots in all toes toes. Dressing in Right leg Neuro- alert, oriented x 3; PERRL, EOMI; no facial palsy Skin- warm & dry Laboratory Results: Last 24 Hours Test 07/06/17 20:05 07/07/17 05:59 07/07/17 07:10 07/07/17 11:42 Bedside Glucose 115 mg/dl 108 mg/dl 118 mg/dl Prothrombin Time 20.7 SECONDS Prothromb Time International Ratio 1.9 Sodium Level 136 mmol/L Potassium Level 3.6 mmol/L Chloride Level 102 mmol/L Carbon Dioxide Level 24 mmol/L Anion Gap 10.0 mmol/L Blood Urea Nitrogen 76 mg/dl Creatinine 2.61 mg/dl Est Creatinine Clear Calc Drug Dose 60.5 ml/min Estimated GFR () 30.2 Estimated GFR (Non- 26.1 BUN/Creatinine Ratio 29.3 Random Glucose 98 mg/dl Calcium Level 8.1 mg/dl Assessment & Plan This is a 56yo M with a PMH of HTN, DM II, h/o chronic R DVT, 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 Bilateral lower extremity swelling: Multifactorial with h/o lymphedema, CHF, CKD, DM type 2 Continue IV lasix 80 BID with albumin Monitor I/O nephrology on board 07/07 Continue Lasix 80mg TID negative 7L Continue monitor I/Os On 1.5L fluid restriction Continue monitor renal function LE swelling slightly improves Nephrology on board Severe BLE cellulitis: H/o chronic LE cellulitis with antibiotic resistance, RLE > LLE Grew multiple resistant organisms in the past Multiple hospital admission Worsening as per patient CT LE showed No evidence of abscess formation, drainable fluid collection, or necrotizing fascitis Surgery was consulted and no surgical intervention at this time from surgery team Vascular surgery consulted, No surgical intervention; recommended PATRICIA wrap Infectious disease on board recommended combination of daptomycin and imipenem Ortho consulted recommended no surgical intervention at this time Wound care consult s/p debridement of the ulcerative sites by wound care physician yesterday Preliminary wound cx grew gram negative bacilli Continue daily wound care Chronic systolic/diastolic HF: Asymptomatic CXR showed mild central pulmonary vascular congestion without overt edema. Continue 80mg IV Lasix TID with albumin Last Echo in Mar 2017 showed EF of 55-60%, mild concentric LVH, left atrium severely dilated Continue 1.5L fluid restriction continue monitor BMP Continue Daily I/O -7L output DM II: Hgb a1c of 7.7 in May 2017 On levemir subq Continue Insulin coverage Continue monitor BS Chronic A Fib: rate is controlled INR 1.9 today coumadin 2mg Continue monitor lNR BART on CKD Stage IV: Creatine on admission 2.85 Baseline GFR ~30, Cr 2.4 Creatine 2.6 Mostly creatine will worsening due to IV lasix Consult nephrology Continue monitor BMP Stable H/o R DVT/PE: S/p IVC filter Today coumadin resumed INR 1.9 HTN: Stable Continue home meds Hypothyroidism: TSH elevated to 6.3 Levothyroxine increased to 37.5 Check TSH in 4-6 weeks DVT px on Coumadin INR 1.9 today CODE STATUS FULL CODE DISPOSITION Discharge once medically stable Consultants: Nephro Ortho Surgery Vascular surgery wound care Procedures: S/P wound debridement Current Inpatient Medications: Current Inpatient Medications Medications (Trade) Dose Ordered Sig/Miguel Route Start Time Stop Time Status Last Admin Dose Admin Glucose (Glucose 40% Gel) 15-30 GRAMS 15 GRAMS... UD PRN PO 06/30/17 14:30 07/30/17 14:29 Glucose (Glucose Chew Tab) 4-8 Tablets 4 Tabl... UD PRN PO 06/30/17 14:30 07/30/17 14:29 Dextrose (Dextrose 50% 50ML Syringe) 25-50ML OF 50% DW IV FOR... UD PRN IV 06/30/17 14:30 07/30/17 14:29 Glucagon (Glucagon Inj) 1 mg UD PRN SQ 06/30/17 14:30 07/30/17 14:29 Miscellaneous Information (Consult Glycemic Management Pharmacy) 1 ea UD PRN N/A 06/30/17 14:43 07/30/17 14:42 Insulin Aspart (novoLOG ASPART) SLIDING SCALE ACHS SC 06/30/17 16:15 07/30/17 16:14 07/07/17 13:32 6 UNITS Acetaminophen/ Codeine Phosphate (Tylenol w/ Codeine #3 Tab) 1 tab Q6H PRN PO 06/30/17 15:30 07/30/17 15:29 07/07/17 13:36 1 TAB Albuterol (Ventolin Hfa Inhaler) 2 puffs Q6H PRN INH 06/30/17 15:30 07/30/17 15:29 Atorvastatin Calcium (Lipitor Tab) 80 mg HS PO 06/30/17 21:00 07/30/17 20:59 07/06/17 19:42 80 MG Carvedilol (Coreg Tab) 25 mg BID PO 06/30/17 21:00 07/30/17 20:59 07/07/17 09:32 25 MG Hydroxyzine HCl (Vistaril Tab) 25 mg QID PRN PO 06/30/17 15:30 07/30/17 15:29 07/02/17 09:06 25 MG Loratadine (Claritin Tab) 10 mg DAILY PO 07/01/17 09:00 07/31/17 08:59 07/07/17 09:31 10 MG Magnesium Hydroxide (Milk Of Magnesia Susp) 30 ml DAILY PRN PO 06/30/17 15:30 07/30/17 15:29 Nitroglycerin (Nitrostat Tab) 0.4 mg UD PRN UT 06/30/17 15:30 07/30/17 15:29 Nystatin (Mycostatin Powder) 1 appln DAILY EXT 07/01/17 09:00 07/31/17 08:59 07/07/17 09:34 1 APPLN Ondansetron HCl (Zofran Tab) 4 mg Q8 PRN PO 06/30/17 15:30 07/30/17 15:29 Pregabalin (Lyrica Cap) 75 mg BID PO 06/30/17 21:00 07/30/17 20:59 07/07/17 09:46 75 MG Senna/Docusate Sodium (Senokot S Tab) 2 tab HS PO 06/30/17 21:00 07/30/17 20:59 07/06/17 19:42 2 TAB Tamsulosin HCl (Flomax Cap) 0.4 mg HS PO 06/30/17 21:00 07/30/17 20:59 07/06/17 19:42 0.4 MG Trazodone HCl (Desyrel Tab) 50 mg HS PO 06/30/17 21:00 07/30/17 20:59 07/06/17 19:42 50 MG Ursodiol (Actigall Cap) 300 mg BID PO 06/30/17 21:00 07/30/17 20:59 07/07/17 09:32 300 MG Venlafaxine HCl (effeXOR TAB) 75 mg QAM PO 07/01/17 09:00 07/31/17 08:59 07/07/17 09:32 75 MG Pantoprazole Sodium (Protonix Tab) 40 mg DAILY PO 07/01/17 09:00 07/31/17 08:59 07/07/17 09:31 40 MG Miscellaneous Information (Check Fentanyl Patch Placement) 1 ea QS N/A 07/01/17 00:00 07/31/17 00:00 07/07/17 15:34 1 EA Fentanyl (Duragesic Patch) 25 mcg Q72H TD 07/03/17 08:00 07/17/17 07:59 07/06/17 09:27 25 MCG Miscellaneous (Fentanyl Patch Remove & Waste) 1 ea Q3D@0759 N/A 07/03/17 07:59 08/02/17 07:58 07/06/17 07:59 1 EA Daptomycin (Consult) 1 ea UD PRN N/A 06/30/17 18:35 07/30/17 18:34 Daptomycin 800 mg/ Syringe 16 ml @ 8 mls/min Q24H IV 06/30/17 19:00 07/10/17 18:59 07/06/17 19:39 8 MLS/MIN Potassium Chloride (Klor-Con M10) 10 meq BIDM PO 07/01/17 16:45 07/31/17 16:44 07/07/17 09:33 10 MEQ Polyethylene (Miralax Powder Packet) 17 gm QAM PO 07/02/17 11:00 08/01/17 10:59 07/07/17 09:33 17 GM Mupirocin (Bactroban 2% Oint) 1 appln BID EXT 07/02/17 21:00 07/07/17 20:59 07/07/17 09:35 1 APPLN Levothyroxine Sodium (Synthroid Tab) 37.5 mcg DAILYBB PO 07/04/17 06:30 07/31/17 05:59 07/07/17 05:25 37.5 MCG Furosemide 80 mg/ Albumin Human 58 ml @ 54 mls/hr TID@0600,1200,1800 IV 07/04/17 19:30 07/07/17 19:29 07/07/17 12:57 54 MLS/HR Insulin Detemir (Levemir Flexpen/ FlexTouch) 15 units QAM SC 07/06/17 08:00 08/05/17 07:59 07/07/17 09:46 15 UNITS Insulin Detemir (Levemir Flexpen/ FlexTouch) SEE PROTOCOL TEXT PLEASE HS SC 07/05/17 21:00 08/04/17 20:59 07/06/17 21:16 5 UNITS Warfarin Sodium (Coumadin Tab) 2 mg DAILY@16 PO 07/06/17 16:00 08/05/17 15:59 07/07/17 15:34 2 MG Aztreonam 2000 mg/ Dextrose 110 ml @ 110 mls/hr Q8H IV 07/06/17 12:00 07/16/17 11:59 07/07/17 11:36 110 MLS/HR
[2017-07-07] MEDS: DAPTOMYCIN IV SCH (19:28)
[2017-07-07] MEDS: DOCUSATE SODIUM/SENNA 50/8.6MG TAB PO SCH (22:04)
[2017-07-07] MEDS: ATORVASTATIN 40 MG TAB PO SCH (22:05)
[2017-07-07] MEDS: TRAZODONE HCL 50 MG TAB PO SCH (22:05)
[2017-07-07] MEDS: TAMSULOSIN HCL 0.4 MG CAP PO SCH (22:05)
[2017-07-08] MEDS: CHECK FENTANYL PATCH PLACEMENT SCH ×3 (00:02→16:00)
[2017-07-08] MEDS: AZTREONAM IV 2,000 MG in DEXTROSE 5% 100ML 100 ML IV SCH ×3 (04:28→22:15)
[2017-07-08 06:54] LABS: INR 2.2 (0.9-1.1); PROTHROMBIN TIME (PATIENT) 24.1 SECONDS (9.0-12.0)
[2017-07-08] MEDS: LEVOTHYROXINE 25 MCG TAB PO SCH (07:15)
[2017-07-08 07:20] LABS: BUN/CREATININE RATIO 28.9 (10-20); CALCIUM 7.9 mg/dl (8.5-10.1); CREATININE 2.71 mg/dl (0.60-1.40); POTASSIUM 3.5 mmol/L (3.5-5.1)
[2017-07-08] MEDS: INSULIN ASPART 100 UNITS/ML 3 ML PEN SC SCH ×4 (08:00→22:17)
[2017-07-08 10:19] VITALS: BP 156/79; PULSE 63; TEMP 36.6; O2SAT 98
[2017-07-08] MEDS: LORATADINE 10 MG TAB PO SCH (10:20)
[2017-07-08] MEDS: PANTOprazole SOD 40 MG TAB PO SCH (10:20)
[2017-07-08] MEDS: CARVEDILOL 25 MG TAB PO SCH ×2 (10:21→22:16)
[2017-07-08] MEDS: URSODIOL 300 MG CAP PO SCH ×2 (10:21→22:15)
[2017-07-08] MEDS: POTASSIUM CHLORIDE 10 MEQ TABCR PO SCH ×2 (10:21→17:00)
[2017-07-08] MEDS: NYSTATIN POWDER 15GM BTL EXT SCH (10:22)
[2017-07-08] MEDS: POLYETHYLENE (MIRALAX) 17 GM PACK PO SCH (10:22)
[2017-07-08] MEDS: VENLAFAXINE HCL 37.5 MG TAB PO SCH (10:22)
[2017-07-08] MEDS: INSULIN DETEMIR FLEXPEN/FLEX TOUCH 100 UNITS/ML 3ML SC SCH ×2 (10:32→22:16)
[2017-07-08] MEDS: PREGABALIN 75 MG CAP PO SCH ×2 (10:33→22:16)
[2017-07-08] MEDS: ACETAMINOPHEN/CODEINE 300/30MG TAB PO PRN (10:35)
[2017-07-08] MEDS: WARFARIN SOD 2 MG TAB PO SCH (16:00)
--- NOTE | 2017-07-08 19:15 | Progress Note ---
Medicine Progress Note Date & Time of Visit: Jul 08, 2017 at 12:12. Subjective Pt was seen and examined Lying in bed with no distress Pt is not too happy because of his diet He said that he cannot get what he wants to eat He refused to take his meds if his diet does not change to regular Denies any chest pain, palpitation, dizziness and SOB Objective Physical Exam: General- No acute distress Head- atraumatic Eyes- PERRL, EOMI ENT- oropharynx clear Neck- supple, no JVD Lungs- clear to auscultation and percussion Heart- regular rhythm; no murmur Abdomen- normal bowel sounds, soft Extremities-B/L LE Edema R>L.discoloration skin/toes nail.gangrenous of right big toes,darkened spots in all toes toes. Dressing in Right leg Neuro- alert, oriented x 3; PERRL, EOMI; no facial palsy Skin- warm & dry Laboratory Results: Last 24 Hours Test 07/07/17 20:28 07/08/17 06:22 07/08/17 07:51 07/08/17 11:34 Bedside Glucose 103 mg/dl 102 mg/dl 103 mg/dl Prothrombin Time 24.1 SECONDS Prothromb Time International Ratio 2.2 Sodium Level 135 mmol/L Potassium Level 3.5 mmol/L Chloride Level 102 mmol/L Carbon Dioxide Level 25 mmol/L Anion Gap 8.0 mmol/L Blood Urea Nitrogen 78 mg/dl Creatinine 2.71 mg/dl Est Creatinine Clear Calc Drug Dose 58.2 ml/min Estimated GFR () 28.9 Estimated GFR (Non- 24.9 BUN/Creatinine Ratio 28.9 Random Glucose 106 mg/dl Calcium Level 7.9 mg/dl Assessment & Plan This is a 56yo M with a PMH of HTN, DM II, h/o chronic R DVT, 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 Bilateral lower extremity swelling: Multifactorial with h/o lymphedema, CHF, CKD, DM type 2 Continue IV lasix 80 BID with albumin Monitor I/O nephrology on board 07/08 Continue Lasix 80mg TID negative 9L Continue monitor I/Os On 1.5L fluid restriction Continue monitor renal function LE swelling slightly improves Nephrology on board Clinically stable Severe BLE cellulitis: H/o chronic LE cellulitis with antibiotic resistance, RLE > LLE Grew multiple resistant organisms in the past Multiple hospital admission Worsening as per patient CT LE showed No evidence of abscess formation, drainable fluid collection, or necrotizing fascitis Surgery was consulted and no surgical intervention at this time from surgery team Vascular surgery consulted, No surgical intervention; recommended PATRICIA wrap Infectious disease on board recommended combination of daptomycin and imipenem Ortho consulted recommended no surgical intervention at this time Wound care consult s/p debridement of the ulcerative sites by wound care physician yesterday Preliminary wound cx grew gram negative bacilli Continue daily wound care Chronic systolic/diastolic HF: Asymptomatic CXR showed mild central pulmonary vascular congestion without overt edema. Continue 80mg IV Lasix TID with albumin Last Echo in Mar 2017 showed EF of 55-60%, mild concentric LVH, left atrium severely dilated Continue 1.5L fluid restriction continue monitor BMP Continue Daily I/O -9L output DM II: Hgb a1c of 7.7 in May 2017 On Levemir subq Continue Insulin coverage Continue monitor BS Chronic A Fib: rate is controlled INR 2.2 today Coumadin 2mg Continue monitor lNR BART on CKD Stage IV: Creatine on admission 2.85 Baseline GFR ~30, Cr 2.4 Creatine 2.7 Mostly creatine will worsening due to IV lasix Consult nephrology Continue monitor BMP Stable H/o R DVT/PE: S/p IVC filter Today coumadin resumed INR 1.9 HTN: Stable Continue home meds Hypothyroidism: TSH elevated to 6.3 Levothyroxine increased to 37.5 Check TSH in 4-6 weeks DVT px on Coumadin INR 2.2 today CODE STATUS FULL CODE DISPOSITION Discharge once medically stable Consultants: Nephro Ortho Surgery Vascular surgery wound care Procedures: S/P wound debridement Current Inpatient Medications: Current Inpatient Medications Medications (Trade) Dose Ordered Sig/Miguel Route Start Time Stop Time Status Last Admin Dose Admin Glucose (Glucose 40% Gel) 15-30 GRAMS 15 GRAMS... UD PRN PO 06/30/17 14:30 07/30/17 14:29 Glucose (Glucose Chew Tab) 4-8 Tablets 4 Tabl... UD PRN PO 06/30/17 14:30 07/30/17 14:29 Dextrose (Dextrose 50% 50ML Syringe) 25-50ML OF 50% DW IV FOR... UD PRN IV 06/30/17 14:30 07/30/17 14:29 Glucagon (Glucagon Inj) 1 mg UD PRN SQ 06/30/17 14:30 07/30/17 14:29 Miscellaneous Information (Consult Glycemic Management Pharmacy) 1 ea UD PRN N/A 06/30/17 14:43 07/30/17 14:42 Insulin Aspart (novoLOG ASPART) SLIDING SCALE ACHS SC 06/30/17 16:15 07/30/17 16:14 07/07/17 18:16 11 UNITS Acetaminophen/ Codeine Phosphate (Tylenol w/ Codeine #3 Tab) 1 tab Q6H PRN PO 06/30/17 15:30 07/30/17 15:29 07/08/17 10:35 1 TAB Albuterol (Ventolin Hfa Inhaler) 2 puffs Q6H PRN INH 06/30/17 15:30 07/30/17 15:29 Atorvastatin Calcium (Lipitor Tab) 80 mg HS PO 06/30/17 21:00 07/30/17 20:59 07/07/17 22:05 80 MG Carvedilol (Coreg Tab) 25 mg BID PO 06/30/17 21:00 07/30/17 20:59 07/08/17 10:21 25 MG Hydroxyzine HCl (Vistaril Tab) 25 mg QID PRN PO 06/30/17 15:30 07/30/17 15:29 07/02/17 09:06 25 MG Loratadine (Claritin Tab) 10 mg DAILY PO 07/01/17 09:00 07/31/17 08:59 07/08/17 10:20 10 MG Magnesium Hydroxide (Milk Of Magnesia Susp) 30 ml DAILY PRN PO 06/30/17 15:30 07/30/17 15:29 Nitroglycerin (Nitrostat Tab) 0.4 mg UD PRN UT 06/30/17 15:30 07/30/17 15:29 Nystatin (Mycostatin Powder) 1 appln DAILY EXT 07/01/17 09:00 07/31/17 08:59 07/08/17 10:22 1 APPLN Ondansetron HCl (Zofran Tab) 4 mg Q8 PRN PO 06/30/17 15:30 07/30/17 15:29 Pregabalin (Lyrica Cap) 75 mg BID PO 06/30/17 21:00 07/30/17 20:59 07/08/17 10:33 75 MG Senna/Docusate Sodium (Senokot S Tab) 2 tab HS PO 06/30/17 21:00 07/30/17 20:59 07/07/17 22:04 2 TAB Tamsulosin HCl (Flomax Cap) 0.4 mg HS PO 06/30/17 21:00 07/30/17 20:59 07/07/17 22:05 0.4 MG Trazodone HCl (Desyrel Tab) 50 mg HS PO 06/30/17 21:00 07/30/17 20:59 07/07/17 22:05 50 MG Ursodiol (Actigall Cap) 300 mg BID PO 06/30/17 21:00 07/30/17 20:59 07/08/17 10:21 300 MG Venlafaxine HCl (effeXOR TAB) 75 mg QAM PO 07/01/17 09:00 07/31/17 08:59 07/08/17 10:22 75 MG Pantoprazole Sodium (Protonix Tab) 40 mg DAILY PO 07/01/17 09:00 07/31/17 08:59 07/08/17 10:20 40 MG Miscellaneous Information (Check Fentanyl Patch Placement) 1 ea QS N/A 07/01/17 00:00 07/31/17 00:00 07/08/17 10:23 1 EA Fentanyl (Duragesic Patch) 25 mcg Q72H TD 07/03/17 08:00 07/17/17 07:59 07/06/17 09:27 25 MCG Miscellaneous (Fentanyl Patch Remove & Waste) 1 ea Q3D@0759 N/A 07/03/17 07:59 08/02/17 07:58 07/06/17 07:59 1 EA Daptomycin (Consult) 1 ea UD PRN N/A 06/30/17 18:35 07/30/17 18:34 Daptomycin 800 mg/ Syringe 16 ml @ 8 mls/min Q24H IV 06/30/17 19:00 07/10/17 18:59 07/07/17 19:28 8 MLS/MIN Potassium Chloride (Klor-Con M10) 10 meq BIDM PO 07/01/17 16:45 07/31/17 16:44 07/08/17 10:21 10 MEQ Polyethylene (Miralax Powder Packet) 17 gm QAM PO 07/02/17 11:00 08/01/17 10:59 07/08/17 10:22 17 GM Levothyroxine Sodium (Synthroid Tab) 37.5 mcg DAILYBB PO 07/04/17 06:30 07/31/17 05:59 07/08/17 07:15 37.5 MCG Insulin Detemir (Levemir Flexpen/ FlexTouch) 15 units QAM SC 07/06/17 08:00 08/05/17 07:59 07/08/17 10:32 15 UNITS Warfarin Sodium (Coumadin Tab) 2 mg DAILY@16 PO 07/06/17 16:00 08/05/17 15:59 07/07/17 15:34 2 MG Aztreonam 2000 mg/ Dextrose 110 ml @ 110 mls/hr Q8H IV 07/06/17 12:00 07/16/17 11:59 07/08/17 04:28 110 MLS/HR Insulin Detemir (Levemir Flexpen/ FlexTouch) 5 units HS SC 07/08/17 21:00 08/07/17 20:59
[2017-07-08] MEDS: DAPTOMYCIN IV SCH (22:15)
[2017-07-08] MEDS: ATORVASTATIN 40 MG TAB PO SCH (22:16)
[2017-07-08] MEDS: TAMSULOSIN HCL 0.4 MG CAP PO SCH (22:16)
[2017-07-08] MEDS: TRAZODONE HCL 50 MG TAB PO SCH (22:16)
[2017-07-08] MEDS: DOCUSATE SODIUM/SENNA 50/8.6MG TAB PO SCH (22:16)
[2017-07-09] MEDS: AZTREONAM IV 2,000 MG in DEXTROSE 5% 100ML 100 ML IV SCH ×3 (04:51→21:24)
[2017-07-09] MEDS: POLYETHYLENE (MIRALAX) 17 GM PACK PO SCH (08:00)
[2017-07-09] MEDS: INSULIN ASPART 100 UNITS/ML 3 ML PEN SC SCH ×4 (08:00→21:34)
[2017-07-09] MEDS: ACETAMINOPHEN/CODEINE 300/30MG TAB PO PRN ×2 (08:31→16:35)
[2017-07-09] MEDS: POTASSIUM CHLORIDE 10 MEQ TABCR PO SCH ×2 (08:37→16:36)
[2017-07-09] MEDS: CARVEDILOL 25 MG TAB PO SCH ×2 (08:38→21:31)
[2017-07-09] MEDS: LORATADINE 10 MG TAB PO SCH (08:38)
[2017-07-09] MEDS: VENLAFAXINE HCL 37.5 MG TAB PO SCH (08:38)
[2017-07-09] MEDS: LEVOTHYROXINE 25 MCG TAB PO SCH (08:39)
[2017-07-09] MEDS: NYSTATIN POWDER 15GM BTL EXT SCH (08:40)
[2017-07-09] MEDS: PANTOprazole SOD 40 MG TAB PO SCH (08:41)
[2017-07-09] MEDS: URSODIOL 300 MG CAP PO SCH ×2 (08:41→21:35)
[2017-07-09 08:44] VITALS: BP 134/82; PULSE 68; TEMP 36.8; O2SAT 98
[2017-07-09] MEDS: CHECK FENTANYL PATCH PLACEMENT SCH ×3 (08:44→16:40)
--- NOTE | 2017-07-09 08:44 | Pharmacy Progress Note ---
Pharmacy Glycemic Sign Off Nt Date of Service Jul 09, 2017. Assessment & Plan ASSESSMENT: * Pharmacy was consulted by Dr Mason on 06/30/17 for glycemic control and to write orders per [facility] inpatient glycemic control protocol. * Major changes made by pharmacy to antidiabetic regimen include: * titration of Levemir to 15 units in the morning and 5 units in the evening ( home regimen is 15 twice daily) * tightening of Novolog parameters * Patient has been receiving/requiring 45 units of insulin per day for adequate glycemic control * BSGs ranging 98 - 118 mg/dl * Regimen has only required minor adjustments over the past 48hrs to achieve this level of control * ALSO patient has refused all Accuchecks and insulin since yesterday at lunch - cannot adequately control patient's blood sugar without values or patient not taking insulin * Please see recommendations for outpatient antidiabetic regimen below. If patient agrees to resume therapy this is an excellent regimen for him. PLAN FOR INPATIENT GLYCEMIC CONTROL: No changes needed to current regimen. * Continue basal insulin with Lantus 15 units SQ in the morning and 5 units in the evening * Continue NovoLog per scale ACHS/Q6hrs while NPO * Goal range = 110- 140 mg/dl * CF = 20 mg/dl/unit * CR = 1 unit for ever 6 g CHO consumed * Pharmacy is signing off of glycemic consult and will no longer be making adjustments to inpatient regimen. Please feel free to re-consult if needed. Thank you. DISCHARGE RECOMMENDATIONS: * A1c 7.7 % on 06/09/17 * Reasonable to continue home regimen (all this was communicate to Dr Salazar via telephone call prior to sign off)
[2017-07-09] MEDS: PREGABALIN 75 MG CAP PO SCH ×2 (12:05→21:29)
[2017-07-09] MEDS: FENTANYL 25 MCG/HR TDSY TD SCH (12:07)
[2017-07-09] MEDS: INSULIN DETEMIR FLEXPEN/FLEX TOUCH 100 UNITS/ML 3ML SC SCH ×2 (12:11→21:46)
[2017-07-09] MEDS: FENTANYL PATCH REMOVE & WASTE SCH (12:12)
[2017-07-09] MEDS: FUROSEMIDE 80 MG TAB PO SCH (16:33)
[2017-07-09] MEDS: WARFARIN SOD 2 MG TAB PO SCH (16:34)
[2017-07-09 16:40] VITALS: BP 135/67; PULSE 60; TEMP 36.5; O2SAT 98
--- NOTE | 2017-07-09 17:48 | Progress Note ---
Medicine Progress Note Date & Time of Visit: Jul 09, 2017 at 17:44. Subjective Pt was seen and examined Denies any complaints Objective Last 8 Hrs Date Time Temp Pulse Resp B/P (MAP) Pulse Ox O2 Delivery O2 Flow Rate FiO2 07/09/17 16:40 36.5 60 16 135/67 (89) 98 Room Air 07/09/17 15:53 Room Air Physical Exam: General- No acute distress Head- atraumatic Eyes- PERRL, EOMI ENT- oropharynx clear Neck- supple, no JVD Lungs- clear to auscultation and percussion Heart- regular rhythm; no murmur Abdomen- normal bowel sounds, soft Extremities-B/L LE Edema R>L.discoloration skin/toes nail.gangrenous of right big toes,darkened spots in all toes toes. 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 Bilateral lower extremity swelling: Multifactorial with h/o lymphedema, CHF, CKD, DM type 2 Continue IV lasix 80 BID with albumin Monitor I/O nephrology on board 07/08 Continue Lasix 80mg TID negative 10.5L Continue monitor I/Os On 1.5L fluid restriction Continue monitor renal function LE swelling slightly improves Nephrology on board Clinically stable Will change Lasix to oral 80mg TID in am Severe BLE cellulitis: H/o chronic LE cellulitis with antibiotic resistance, RLE > LLE Grew multiple resistant organisms in the past Multiple hospital admission Worsening as per patient CT LE showed No evidence of abscess formation, drainable fluid collection, or necrotizing fascitis Surgery was consulted and no surgical intervention at this time from surgery team Vascular surgery consulted, No surgical intervention; recommended PATRICIA wrap Infectious disease on board recommended combination of daptomycin and imipenem Ortho consulted recommended no surgical intervention at this time Wound care consult s/p debridement of the ulcerative sites by wound care physician yesterday Preliminary wound cx grew gram negative bacilli Continue daily wound care Follow up with wound care as an outpatient Chronic systolic/diastolic HF: Asymptomatic CXR showed mild central pulmonary vascular congestion without overt edema. Continue 80mg IV Lasix TID with albumin Last Echo in Mar 2017 showed EF of 55-60%, mild concentric LVH, left atrium severely dilated Continue 1.5L fluid restriction continue monitor BMP Continue Daily I/O -10.5L output DM II: Hgb a1c of 7.7 in May 2017 On Levemir subq Continue Insulin coverage Continue monitor BS Chronic A Fib: rate is controlled INR 2.2 Coumadin 2mg Continue monitor lNR BART on CKD Stage IV: Creatine on admission 2.85 Baseline GFR ~30, Cr 2.4 Creatine 2.7 Mostly creatine will worsening due to IV lasix Consult nephrology Continue monitor BMP Stable H/o R DVT/PE: S/p IVC filter On Coumadin INR 2.2 HTN: Stable Continue home meds Hypothyroidism: TSH elevated to 6.3 Levothyroxine increased to 37.5 Check TSH in 4-6 weeks DVT px on Coumadin INR 2.2 CODE STATUS FULL CODE DISPOSITION Discharge once medically stable Consultants: Nephro Ortho Surgery Vascular surgery wound care Procedures: S/P wound debridement Current Inpatient Medications: Current Inpatient Medications Medications (Trade) Dose Ordered Sig/Miguel Route Start Time Stop Time Status Last Admin Dose Admin Glucose (Glucose 40% Gel) 15-30 GRAMS 15 GRAMS... UD PRN PO 06/30/17 14:30 07/30/17 14:29 Glucose (Glucose Chew Tab) 4-8 Tablets 4 Tabl... UD PRN PO 06/30/17 14:30 07/30/17 14:29 Dextrose (Dextrose 50% 50ML Syringe) 25-50ML OF 50% DW IV FOR... UD PRN IV 06/30/17 14:30 07/30/17 14:29 Glucagon (Glucagon Inj) 1 mg UD PRN SQ 06/30/17 14:30 07/30/17 14:29 Insulin Aspart (novoLOG ASPART) SLIDING SCALE ACHS SC 06/30/17 16:15 07/30/17 16:14 07/09/17 13:03 9 UNITS Acetaminophen/ Codeine Phosphate (Tylenol w/ Codeine #3 Tab) 1 tab Q6H PRN PO 06/30/17 15:30 07/30/17 15:29 07/09/17 16:35 1 TAB Albuterol (Ventolin Hfa Inhaler) 2 puffs Q6H PRN INH 06/30/17 15:30 07/30/17 15:29 Atorvastatin Calcium (Lipitor Tab) 80 mg HS PO 06/30/17 21:00 07/30/17 20:59 07/07/17 22:05 80 MG Carvedilol (Coreg Tab) 25 mg BID PO 06/30/17 21:00 07/30/17 20:59 07/09/17 08:38 25 MG Hydroxyzine HCl (Vistaril Tab) 25 mg QID PRN PO 06/30/17 15:30 07/30/17 15:29 07/02/17 09:06 25 MG Loratadine (Claritin Tab) 10 mg DAILY PO 07/01/17 09:00 07/31/17 08:59 07/09/17 08:38 10 MG Magnesium Hydroxide (Milk Of Magnesia Susp) 30 ml DAILY PRN PO 06/30/17 15:30 07/30/17 15:29 Nitroglycerin (Nitrostat Tab) 0.4 mg UD PRN UT 06/30/17 15:30 07/30/17 15:29 Nystatin (Mycostatin Powder) 1 appln DAILY EXT 07/01/17 09:00 07/31/17 08:59 07/09/17 08:40 1 APPLN Ondansetron HCl (Zofran Tab) 4 mg Q8 PRN PO 06/30/17 15:30 07/30/17 15:29 Pregabalin (Lyrica Cap) 75 mg BID PO 06/30/17 21:00 07/30/17 20:59 07/09/17 12:05 75 MG Senna/Docusate Sodium (Senokot S Tab) 2 tab HS PO 06/30/17 21:00 07/30/17 20:59 07/07/17 22:04 2 TAB Tamsulosin HCl (Flomax Cap) 0.4 mg HS PO 06/30/17 21:00 07/30/17 20:59 07/07/17 22:05 0.4 MG Trazodone HCl (Desyrel Tab) 50 mg HS PO 06/30/17 21:00 07/30/17 20:59 07/07/17 22:05 50 MG Ursodiol (Actigall Cap) 300 mg BID PO 06/30/17 21:00 07/30/17 20:59 07/09/17 08:41 300 MG Venlafaxine HCl (effeXOR TAB) 75 mg QAM PO 07/01/17 09:00 07/31/17 08:59 07/09/17 08:38 75 MG Pantoprazole Sodium (Protonix Tab) 40 mg DAILY PO 07/01/17 09:00 07/31/17 08:59 07/09/17 08:41 40 MG Miscellaneous Information (Check Fentanyl Patch Placement) 1 ea QS N/A 07/01/17 00:00 07/31/17 00:00 07/09/17 16:40 1 EA Fentanyl (Duragesic Patch) 25 mcg Q72H TD 07/03/17 08:00 07/17/17 07:59 07/09/17 12:07 25 MCG Miscellaneous (Fentanyl Patch Remove & Waste) 1 ea Q3D@0759 N/A 07/03/17 07:59 08/02/17 07:58 07/09/17 12:12 1 EA Daptomycin (Consult) 1 ea UD PRN N/A 06/30/17 18:35 07/30/17 18:34 Daptomycin 800 mg/ Syringe 16 ml @ 8 mls/min Q24H IV 06/30/17 19:00 07/10/17 18:59 07/07/17 19:28 8 MLS/MIN Potassium Chloride (Klor-Con M10) 10 meq BIDM PO 07/01/17 16:45 07/31/17 16:44 07/09/17 16:36 10 MEQ Polyethylene (Miralax Powder Packet) 17 gm QAM PO 07/02/17 11:00 08/01/17 10:59 07/08/17 10:22 17 GM Levothyroxine Sodium (Synthroid Tab) 37.5 mcg DAILYBB PO 07/04/17 06:30 07/31/17 05:59 07/09/17 08:39 37.5 MCG Insulin Detemir (Levemir Flexpen/ FlexTouch) 15 units QAM SC 07/06/17 08:00 08/05/17 07:59 07/09/17 12:11 15 UNITS Warfarin Sodium (Coumadin Tab) 2 mg DAILY@16 PO 07/06/17 16:00 08/05/17 15:59 07/09/17 16:34 2 MG Aztreonam 2000 mg/ Dextrose 110 ml @ 110 mls/hr Q8H IV 07/06/17 12:00 07/16/17 11:59 07/09/17 12:05 110 MLS/HR Insulin Detemir (Levemir Flexpen/ FlexTouch) 5 units HS SC 07/08/17 21:00 08/07/17 20:59 Furosemide (Lasix Tab) 80 mg BID17 PO 07/09/17 17:00 08/08/17 16:59 07/09/17 16:33 80 MG
[2017-07-09] MEDS: DAPTOMYCIN IV SCH (18:04)
[2017-07-09] MEDS: ATORVASTATIN 40 MG TAB PO SCH (21:30)
[2017-07-09] MEDS: TAMSULOSIN HCL 0.4 MG CAP PO SCH (21:31)
[2017-07-09] MEDS: TRAZODONE HCL 50 MG TAB PO SCH (21:31)
[2017-07-09] MEDS: DOCUSATE SODIUM/SENNA 50/8.6MG TAB PO SCH (21:35)
[2017-07-09 23:59] VITALS: BP 159/89; PULSE 63; TEMP 36.4; O2SAT 99
[2017-07-10] MEDS: CHECK FENTANYL PATCH PLACEMENT SCH ×3 (01:13→16:26)
[2017-07-10] MEDS: AZTREONAM IV 2,000 MG in DEXTROSE 5% 100ML 100 ML IV SCH ×2 (05:32→12:07)
[2017-07-10] MEDS: LEVOTHYROXINE 25 MCG TAB PO SCH (05:44)
[2017-07-10 07:05] VITALS: BP 161/88; PULSE 64; TEMP 36.6; O2SAT 94
[2017-07-10 08:06] LABS: INR 1.9 (0.9-1.1); PROTHROMBIN TIME (PATIENT) 20.5 SECONDS (9.0-12.0)
[2017-07-10 08:23] LABS: BUN/CREATININE RATIO 31.5 (10-20); CALCIUM 8.3 mg/dl (8.5-10.1); CREATININE 2.29 mg/dl (0.60-1.40); POTASSIUM 3.5 mmol/L (3.5-5.1)
--- NOTE | 2017-07-10 08:42 | Nephrology Progress Note ---
Nephrology Progress Note Date of Service: Jul 10, 2017. Subjective 56 yo male with chronic lymphedema with ckd and chronic ulcers with cellulitis. legs are much improved but continue to have open wounds and drainage. off iv diuretics and now on oral diuretics. blood cultures were negative. currently on dapto and aztreonam. Objective Date Time Temp Pulse Resp B/P (MAP) Pulse Ox O2 Delivery O2 Flow Rate FiO2 07/10/17 07:05 36.6 64 18 161/88 (112) 94 Room Air 07/10/17 00:00 Room Air 07/09/17 23:59 36.4 63 18 159/89 (112) 99 Room Air 07/09/17 20:00 Room Air 07/09/17 16:40 36.5 60 16 135/67 (89) 98 Room Air 07/09/17 15:53 Room Air 07/09/17 09:00 Room Air 07/09/17 08:44 36.8 68 18 134/82 (99) 98 Room Air Physical Exam: General-aaox3 Eyes-no scleral icterus ENT-mmm Neck-supple Lungs-cta Bgsjm-riv-yigfdqv heart sounds Abdomen-bs+ s/nt/nd Extremities-+1 edema with weeping Neuro-nonfocal Current Inpatient Medications Medications (Trade) Dose Ordered Sig/Miguel Route Start Time Stop Time Status Last Admin Dose Admin Glucose (Glucose 40% Gel) 15-30 GRAMS 15 GRAMS... UD PRN PO 06/30/17 14:30 07/30/17 14:29 Glucose (Glucose Chew Tab) 4-8 Tablets 4 Tabl... UD PRN PO 06/30/17 14:30 07/30/17 14:29 Dextrose (Dextrose 50% 50ML Syringe) 25-50ML OF 50% DW IV FOR... UD PRN IV 06/30/17 14:30 07/30/17 14:29 Glucagon (Glucagon Inj) 1 mg UD PRN SQ 06/30/17 14:30 07/30/17 14:29 Insulin Aspart (novoLOG ASPART) SLIDING SCALE ACHS SC 06/30/17 16:15 07/30/17 16:14 07/09/17 18:12 9 UNITS Acetaminophen/ Codeine Phosphate (Tylenol w/ Codeine #3 Tab) 1 tab Q6H PRN PO 06/30/17 15:30 07/30/17 15:29 07/09/17 16:35 1 TAB Albuterol (Ventolin Hfa Inhaler) 2 puffs Q6H PRN INH 06/30/17 15:30 07/30/17 15:29 Atorvastatin Calcium (Lipitor Tab) 80 mg HS PO 06/30/17 21:00 07/30/17 20:59 07/09/17 21:30 80 MG Carvedilol (Coreg Tab) 25 mg BID PO 06/30/17 21:00 07/30/17 20:59 07/09/17 21:31 25 MG Hydroxyzine HCl (Vistaril Tab) 25 mg QID PRN PO 06/30/17 15:30 07/30/17 15:29 07/02/17 09:06 25 MG Loratadine (Claritin Tab) 10 mg DAILY PO 07/01/17 09:00 07/31/17 08:59 07/09/17 08:38 10 MG Magnesium Hydroxide (Milk Of Magnesia Susp) 30 ml DAILY PRN PO 06/30/17 15:30 07/30/17 15:29 Nitroglycerin (Nitrostat Tab) 0.4 mg UD PRN UT 06/30/17 15:30 07/30/17 15:29 Nystatin (Mycostatin Powder) 1 appln DAILY EXT 07/01/17 09:00 07/31/17 08:59 07/09/17 08:40 1 APPLN Ondansetron HCl (Zofran Tab) 4 mg Q8 PRN PO 06/30/17 15:30 07/30/17 15:29 Pregabalin (Lyrica Cap) 75 mg BID PO 06/30/17 21:00 07/30/17 20:59 07/09/17 21:29 75 MG Senna/Docusate Sodium (Senokot S Tab) 2 tab HS PO 06/30/17 21:00 07/30/17 20:59 07/09/17 21:35 2 TAB Tamsulosin HCl (Flomax Cap) 0.4 mg HS PO 06/30/17 21:00 07/30/17 20:59 07/09/17 21:31 0.4 MG Trazodone HCl (Desyrel Tab) 50 mg HS PO 06/30/17 21:00 07/30/17 20:59 07/09/17 21:31 50 MG Ursodiol (Actigall Cap) 300 mg BID PO 06/30/17 21:00 07/30/17 20:59 07/09/17 21:35 300 MG Venlafaxine HCl (effeXOR TAB) 75 mg QAM PO 07/01/17 09:00 07/31/17 08:59 07/09/17 08:38 75 MG Pantoprazole Sodium (Protonix Tab) 40 mg DAILY PO 07/01/17 09:00 07/31/17 08:59 07/09/17 08:41 40 MG Miscellaneous Information (Check Fentanyl Patch Placement) 1 ea QS N/A 07/01/17 00:00 07/31/17 00:00 07/10/17 01:13 1 EA Fentanyl (Duragesic Patch) 25 mcg Q72H TD 07/03/17 08:00 07/17/17 07:59 07/09/17 12:07 25 MCG Miscellaneous (Fentanyl Patch Remove & Waste) 1 ea Q3D@0759 N/A 07/03/17 07:59 08/02/17 07:58 07/09/17 12:12 1 EA Daptomycin (Consult) 1 ea UD PRN N/A 06/30/17 18:35 07/30/17 18:34 Daptomycin 800 mg/ Syringe 16 ml @ 8 mls/min Q24H IV 06/30/17 19:00 07/10/17 18:59 07/09/17 18:04 8 MLS/MIN Potassium Chloride (Klor-Con M10) 10 meq BIDM PO 07/01/17 16:45 07/31/17 16:44 07/09/17 16:36 10 MEQ Polyethylene (Miralax Powder Packet) 17 gm QAM PO 07/02/17 11:00 08/01/17 10:59 07/08/17 10:22 17 GM Levothyroxine Sodium (Synthroid Tab) 37.5 mcg DAILYBB PO 07/04/17 06:30 07/31/17 05:59 07/10/17 05:44 37.5 MCG Insulin Detemir (Levemir Flexpen/ FlexTouch) 15 units QAM SC 07/06/17 08:00 08/05/17 07:59 07/09/17 12:11 15 UNITS Warfarin Sodium (Coumadin Tab) 2 mg DAILY@16 PO 07/06/17 16:00 08/05/17 15:59 07/09/17 16:34 2 MG Aztreonam 2000 mg/ Dextrose 110 ml @ 110 mls/hr Q8H IV 07/06/17 12:00 07/16/17 11:59 07/10/17 05:32 110 MLS/HR Insulin Detemir (Levemir Flexpen/ FlexTouch) 5 units HS SC 07/08/17 21:00 08/07/17 20:59 07/09/17 21:46 5 UNITS Furosemide (Lasix Tab) 80 mg BID17 PO 07/09/17 17:00 08/08/17 16:59 07/09/17 16:33 80 MG Last 24 Hours Test 07/09/17 11:49 07/09/17 16:52 07/10/17 00:08 07/10/17 07:32 Bedside Glucose 94 mg/dl 106 mg/dl Sodium Level 139 mmol/L Potassium Level 3.5 mmol/L Chloride Level 105 mmol/L Carbon Dioxide Level 23 mmol/L Anion Gap 11.0 mmol/L Blood Urea Nitrogen 72 mg/dl Creatinine 2.29 mg/dl Est Creatinine Clear Calc Drug Dose 68.9 ml/min Estimated GFR () 35.4 Estimated GFR (Non- 30.5 BUN/Creatinine Ratio 31.5 Random Glucose 102 mg/dl Calcium Level 8.3 mg/dl Prothrombin Time 20.5 SECONDS Prothromb Time International Ratio 1.9 Test 07/10/17 07:57 Bedside Glucose 105 mg/dl Assessment & Plan lymphedema-chronic issue-on oral diuretics now. diuresed nicely while here. will discuss further with hospitalist. creatinine relatively stable in the 2s. question if we should continue iv diuretics for now. pt has a propensity to regain fluid out of the hospital. came in on 80 po bid. may need higher dose of 160 bid as outpt. either way, would do twice a week labs looking at potassium and creatinine trend and follow weights to try to control swelling as outpt.
[2017-07-10] MEDS: LORATADINE 10 MG TAB PO SCH (09:27)
[2017-07-10] MEDS: URSODIOL 300 MG CAP PO SCH (09:27)
[2017-07-10] MEDS: CARVEDILOL 25 MG TAB PO SCH (09:27)
[2017-07-10] MEDS: POLYETHYLENE (MIRALAX) 17 GM PACK PO SCH (09:28)
[2017-07-10] MEDS: POTASSIUM CHLORIDE 10 MEQ TABCR PO SCH ×2 (09:28→18:16)
[2017-07-10] MEDS: VENLAFAXINE HCL 37.5 MG TAB PO SCH (09:28)
[2017-07-10] MEDS: PANTOprazole SOD 40 MG TAB PO SCH (09:28)
[2017-07-10] MEDS: PREGABALIN 75 MG CAP PO SCH (09:28)
[2017-07-10] MEDS: NYSTATIN POWDER 15GM BTL EXT SCH (09:29)
[2017-07-10] MEDS: FUROSEMIDE 80 MG TAB PO SCH ×2 (09:29→18:17)
[2017-07-10] MEDS: ACETAMINOPHEN/CODEINE 300/30MG TAB PO PRN (09:30)
[2017-07-10] MEDS: INSULIN ASPART 100 UNITS/ML 3 ML PEN SC SCH ×3 (09:34→18:27)
[2017-07-10] MEDS: INSULIN DETEMIR FLEXPEN/FLEX TOUCH 100 UNITS/ML 3ML SC SCH (09:34)
[2017-07-10] MEDS ORDERED: VANCOMYCIN INJ 2,750 MG in SODIUM CHLORIDE 0.9% 500ML 500 ML IV ONE (13:00)
[2017-07-10] MEDS ORDERED: VANCOMYCIN CONSULT ACTIVE PRN (13:00)
--- NOTE | 2017-07-10 13:02 | Pharmacy Progress Note ---
Pharmacy Abx Dose Short Note Date of Service Jul 10, 2017. Assessment & Plan Assessment Dr. Salazar requesting change from IV Daptomycin to IV Vancom[facility]. Per ID's note, pt with recurrent lower extremity cellulitis/severe chronic lower extremity lymphedema. Plan is to continue broad spectrum antibiotics at discharge. Plan Vancomycin * Pt known to kinetics service from prior admission in April 2017 * Scr has been trending above noted baseline of 2.2 mg/dL this entire admission but as of midnight, trended down to 2.29 mg/dL * Pt at risk of drug accumulation for BMI >35 and CKD * Load pt with Vancomycin 2750 mg IV X 1 * Continue dose of 2000 mg IV every 24 hours @1400 * Goal trough level for severe cellulitis: ~15 mcg/mL * Pt to be discharged tomorrow so no trough level will be entered in the computer. Recommend checking level on 07/13 @1330 prior to 1400 dose. Pharmacy will continue to follow and will adjust dose/frequency as necessary. Thank you. .
--- NOTE | 2017-07-10 14:46 | Infectious Disease Progress Nt ---
Progress Note Date of Service Jul 10, 2017. Subjective Pt evaluation today including: conversation w/ patient, physical exam, chart review, lab review, review of studies, conversation w/ senior internet sales consultant, review of inpatient medication list Recent events reviewed. Offers no new complaints. Has remained afebrile. Tolerating Abx. All Other Systems: Reviewed and Negative Medications Current Inpatient Medications Medications (Trade) Dose Ordered Sig/Miguel Route Start Time Stop Time Status Last Admin Dose Admin Glucose (Glucose 40% Gel) 15-30 GRAMS 15 GRAMS... UD PRN PO 06/30/17 14:30 07/30/17 14:29 Glucose (Glucose Chew Tab) 4-8 Tablets 4 Tabl... UD PRN PO 06/30/17 14:30 07/30/17 14:29 Dextrose (Dextrose 50% 50ML Syringe) 25-50ML OF 50% DW IV FOR... UD PRN IV 06/30/17 14:30 07/30/17 14:29 Glucagon (Glucagon Inj) 1 mg UD PRN SQ 06/30/17 14:30 07/30/17 14:29 Insulin Aspart (novoLOG ASPART) SLIDING SCALE ACHS SC 06/30/17 16:15 07/30/17 16:14 07/10/17 12:44 7 UNITS Acetaminophen/ Codeine Phosphate (Tylenol w/ Codeine #3 Tab) 1 tab Q6H PRN PO 06/30/17 15:30 07/30/17 15:29 07/10/17 09:30 1 TAB Albuterol (Ventolin Hfa Inhaler) 2 puffs Q6H PRN INH 06/30/17 15:30 07/30/17 15:29 Atorvastatin Calcium (Lipitor Tab) 80 mg HS PO 06/30/17 21:00 07/30/17 20:59 07/09/17 21:30 80 MG Carvedilol (Coreg Tab) 25 mg BID PO 06/30/17 21:00 07/30/17 20:59 07/10/17 09:27 25 MG Hydroxyzine HCl (Vistaril Tab) 25 mg QID PRN PO 06/30/17 15:30 07/30/17 15:29 07/02/17 09:06 25 MG Loratadine (Claritin Tab) 10 mg DAILY PO 07/01/17 09:00 07/31/17 08:59 07/10/17 09:27 10 MG Magnesium Hydroxide (Milk Of Magnesia Susp) 30 ml DAILY PRN PO 06/30/17 15:30 07/30/17 15:29 Nitroglycerin (Nitrostat Tab) 0.4 mg UD PRN UT 06/30/17 15:30 07/30/17 15:29 Nystatin (Mycostatin Powder) 1 appln DAILY EXT 07/01/17 09:00 07/31/17 08:59 07/10/17 09:29 1 APPLN Ondansetron HCl (Zofran Tab) 4 mg Q8 PRN PO 06/30/17 15:30 07/30/17 15:29 Pregabalin (Lyrica Cap) 75 mg BID PO 06/30/17 21:00 07/30/17 20:59 07/10/17 09:28 75 MG Senna/Docusate Sodium (Senokot S Tab) 2 tab HS PO 06/30/17 21:00 07/30/17 20:59 07/09/17 21:35 2 TAB Tamsulosin HCl (Flomax Cap) 0.4 mg HS PO 06/30/17 21:00 07/30/17 20:59 07/09/17 21:31 0.4 MG Trazodone HCl (Desyrel Tab) 50 mg HS PO 06/30/17 21:00 07/30/17 20:59 07/09/17 21:31 50 MG Ursodiol (Actigall Cap) 300 mg BID PO 06/30/17 21:00 07/30/17 20:59 07/10/17 09:27 300 MG Venlafaxine HCl (effeXOR TAB) 75 mg QAM PO 07/01/17 09:00 07/31/17 08:59 07/10/17 09:28 75 MG Pantoprazole Sodium (Protonix Tab) 40 mg DAILY PO 07/01/17 09:00 07/31/17 08:59 07/10/17 09:28 40 MG Miscellaneous Information (Check Fentanyl Patch Placement) 1 ea QS N/A 07/01/17 00:00 07/31/17 00:00 07/10/17 09:25 1 EA Fentanyl (Duragesic Patch) 25 mcg Q72H TD 07/03/17 08:00 07/17/17 07:59 07/09/17 12:07 25 MCG Miscellaneous (Fentanyl Patch Remove & Waste) 1 ea Q3D@0759 N/A 07/03/17 07:59 08/02/17 07:58 07/09/17 12:12 1 EA Potassium Chloride (Klor-Con M10) 10 meq BIDM PO 07/01/17 16:45 07/31/17 16:44 07/10/17 09:28 10 MEQ Polyethylene (Miralax Powder Packet) 17 gm QAM PO 07/02/17 11:00 08/01/17 10:59 07/10/17 09:28 17 GM Levothyroxine Sodium (Synthroid Tab) 37.5 mcg DAILYBB PO 07/04/17 06:30 07/31/17 05:59 07/10/17 05:44 37.5 MCG Insulin Detemir (Levemir Flexpen/ FlexTouch) 15 units QAM SC 07/06/17 08:00 08/05/17 07:59 07/10/17 09:34 15 UNITS Warfarin Sodium (Coumadin Tab) 2 mg DAILY@16 PO 07/06/17 16:00 08/05/17 15:59 07/09/17 16:34 2 MG Aztreonam 2000 mg/ Dextrose 110 ml @ 110 mls/hr Q8H IV 07/06/17 12:00 07/16/17 11:59 07/10/17 12:07 110 MLS/HR Insulin Detemir (Levemir Flexpen/ FlexTouch) 5 units HS SC 07/08/17 21:00 08/07/17 20:59 07/09/17 21:46 5 UNITS Furosemide (Lasix Tab) 80 mg BID17 PO 07/09/17 17:00 08/08/17 16:59 07/10/17 09:29 80 MG Vancomycin HCl (Consult) 1 ea UD PRN N/A 07/10/17 13:00 08/09/17 12:59 Vancomycin HCl 2750 mg/Sodium Chloride 555 ml @ 200 mls/hr NOW ONCE IV 07/10/17 13:00 07/10/17 15:46 07/10/17 13:29 200 MLS/HR Vancomycin HCl 2000 mg/Sodium Chloride 540 ml @ 200 mls/hr Q24H IV 07/11/17 14:00 07/21/17 13:59 Objective Vital Signs Date Time Temp Pulse Resp B/P (MAP) Pulse Ox O2 Delivery O2 Flow Rate FiO2 07/10/17 10:29 Room Air 07/10/17 07:05 36.6 64 18 161/88 (112) 94 Room Air 07/10/17 00:00 Room Air 07/09/17 23:59 36.4 63 18 159/89 (112) 99 Room Air 07/09/17 20:00 Room Air 07/09/17 16:40 36.5 60 16 135/67 (89) 98 Room Air 07/09/17 15:53 Room Air Physical Exam General Appearance: WD/WN, no apparent distress Eyes: normal inspection, PERRL, sclerae normal ENT: normal ENT inspection, hearing grossly normal, pharynx normal Neck: supple, no adenopathy, trachea midline Respiratory/Chest: chest non-tender, lungs clear, normal breath sounds, no respiratory distress Cardiovascular: regular rate, rhythm, no gallop, no murmur Abdomen: normal bowel sounds, non tender, soft, no organomegaly Extremities: + inflammation, + swelling Neurologic/Psychiatric: alert, oriented x 3 Skin: normal color, no rash, + pertinent finding (erythema legs imroving.) Lymphatic: no adenopathy Laboratory Results RUN DATE: 07/06/17 [facility] LAB PAGE 1 RUN TIME: 1154 Specimen Inquiry PATIENT: MARICEL BILLY LOC: Emre U # : [id number] AGE/SX: 56/M ROOM: [facility] REG : 06/30/[address]: Genesis Salazar M.D. : 1960 BED: 1 DIS : STATUS: ADM IN TLOC: SPEC #: [id number] MILEY: 07/04/17 STATUS: COMP REQ #: [id number] RECD: 07/04/[address]: Hilary CurranD.O. SOURCE: ULCER ENTR: 07/04/[address]: Darshan Kraus MD SPDESC: FOOT RIGHT Genesis Salazar M.D. Duncan, Mona D., Oncu, Neema Gaines, Ke Starr M.D. Shaw, Mark R., Wilfred Cox M.D. [facility] - tattnallRoberta Gary K., M.D. ORDERED: SURF D CU/[facility] COMMENTS: Has Specimen Been Obtained/Collected? Y Procedure Result Verified Site GRAM STAIN Final 07/04/17-1441 RESULT NO WBCs SEEN NO ORGANISMS SEEN SURFACE WOUND CULTURE Final 07/06/17 Organism 1 PSEUDOMONAS AERUGINOSA QUANITY FEW SENS SENSITIVITY TO FOLLOW +MIXWOUND PLUS LOW COUNTS OF PROBABLE SKIN YOLANDA 1. PSEUDOMONAS AERUGINOSA Target Route Dose RX AB Cost M.I.C. IQ ------ ----- ------ -- ------ -------- - ------ CEFTAZIDIME S 4 CEFEPIME S <=4 IMIPENEM R >8 AZTREONAM S 8 GENTAMICIN S <=4 TOBRAMYCIN S <=4 AMIKACIN S <=16 CIPROFLOXACIN S <=1 LEVOFLOXACIN S <=2 PIP/TAZO S <=16 S = SENSITIVE I = INTERMEDIATE R = RESISTANT END OF REPORT Last 24 Hours Test 07/09/17 16:52 07/09/17 19:59 07/10/17 00:08 07/10/17 07:32 Bedside Glucose 106 mg/dl 86 mg/dl Sodium Level 139 mmol/L Potassium Level 3.5 mmol/L Chloride Level 105 mmol/L Carbon Dioxide Level 23 mmol/L Anion Gap 11.0 mmol/L Blood Urea Nitrogen 72 mg/dl Creatinine 2.29 mg/dl Est Creatinine Clear Calc Drug Dose 68.9 ml/min Estimated GFR () 35.4 Estimated GFR (Non- 30.5 BUN/Creatinine Ratio 31.5 Random Glucose 102 mg/dl Calcium Level 8.3 mg/dl Prothrombin Time 20.5 SECONDS Prothromb Time International Ratio 1.9 Test 07/10/17 07:57 07/10/17 11:27 Bedside Glucose 105 mg/dl 123 mg/dl Assessment and Plan 56-year-old male with recurrent lower extremity cellulitis, severe chronic lower extremity lymphedema, diabetes mellitus presents with recurrent severe cellulitis with culture of wound positive for Pseudomonas. Would continue on current IV Abx for 2 weeks. Will follow.
--- NOTE | 2017-07-10 15:33 | DIAGNOSTIC IMAGING REPORT ---
CHEST ONE VIEW PORTABLE HISTORY: PICC placement COMPARISON: Chest 06/30/2017. FINDINGS: Interval placement of a right PICC. The tip extends towards the midline and likely resides within the distal left brachiocephalic vein. This could also reside within the azygos vein. The heart remains enlarged. Left-sided pacemaker. No pleural effusions. No pneumothorax. No evidence for pulmonary edema. IMPRESSION: The right PICC extends towards the midline and likely resides within the distal left brachiocephalic vein or azygos vein. The should be pulled back by 4 cm and repositioned. Electronically signed by: Kike Shelton M.D. 07/10/2017 3:32 PM Dictated Date/Time: 07/10/2017 3:29 PM
--- NOTE | 2017-07-10 15:57 | Progress Note ---
Medicine Progress Note Date & Time of Visit: Jul 10, 2017 at 15:44. Subjective Pt was seen and examined Lying in bed with no distress Pt said that he feels fine Continue to diuresis well he would like to be discharged He denies any chest pain, palpitation, dizziness and SOB Objective Last 8 Hrs Date Time Temp Pulse Resp B/P (MAP) Pulse Ox O2 Delivery O2 Flow Rate FiO2 07/10/17 10:29 Room Air Physical Exam: General- No acute distress Head- atraumatic Eyes- PERRL, EOMI ENT- oropharynx clear Neck- supple, no JVD Lungs- clear to auscultation and percussion Heart- regular rhythm; no murmur Abdomen- normal bowel sounds, soft Extremities-B/L LE Edema R>L.discoloration skin/toes nail.gangrenous of right big toes,darkened spots in all toes toes. Dressing in Right leg Neuro- alert, oriented x 3; PERRL, EOMI; no facial palsy Skin- warm & dry Laboratory Results: Last 24 Hours Test 07/09/17 16:52 07/09/17 19:59 07/10/17 00:08 07/10/17 07:32 Bedside Glucose 106 mg/dl 86 mg/dl Sodium Level 139 mmol/L Potassium Level 3.5 mmol/L Chloride Level 105 mmol/L Carbon Dioxide Level 23 mmol/L Anion Gap 11.0 mmol/L Blood Urea Nitrogen 72 mg/dl Creatinine 2.29 mg/dl Est Creatinine Clear Calc Drug Dose 68.9 ml/min Estimated GFR () 35.4 Estimated GFR (Non- 30.5 BUN/Creatinine Ratio 31.5 Random Glucose 102 mg/dl Calcium Level 8.3 mg/dl Prothrombin Time 20.5 SECONDS Prothromb Time International Ratio 1.9 Test 07/10/17 07:57 07/10/17 11:27 Bedside Glucose 105 mg/dl 123 mg/dl Assessment & Plan This is a 56yo M with a PMH of HTN, DM II, h/o chronic R DVT, 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 Bilateral lower extremity swelling: Multifactorial with h/o lymphedema, CHF, CKD, DM type 2 Continue IV lasix 80 BID with albumin Monitor I/O nephrology on board 07/10 Will change lasix to 120mg BID negative 10L Continue1.5L fluid restriction Continue monitor renal function LE swelling slightly improves Nephrology on board Case discussed with Dr. Tucker to continue Lasix at 120mg BID and check BMP twice weekly Clinically stable Severe BLE cellulitis: H/o chronic LE cellulitis with antibiotic resistance, RLE > LLE Grew multiple resistant organisms in the past Multiple hospital admission Worsening as per patient CT LE showed No evidence of abscess formation, drainable fluid collection, or necrotizing fascitis Surgery was consulted and no surgical intervention at this time from surgery team Vascular surgery consulted, No surgical intervention; recommended PATRICIA wrap Infectious disease on board recommended combination of daptomycin and imipenem Ortho consulted recommended no surgical intervention at this time Wound care consult s/p debridement of the ulcerative sites by wound care physician yesterday wound cx grew pseudomonas Continue daily wound care Follow up with wound care as an outpatient Dapto will change to IV Vanco on discharge case discussed with ID and recommended to discharge on IV Vanco and Azactam Chronic systolic/diastolic HF: Asymptomatic CXR showed mild central pulmonary vascular congestion without overt edema. Continue diuresis Will discharge on lasix 120mg BID Last Echo in Mar 2017 showed EF of 55-60%, mild concentric LVH, left atrium severely dilated Continue 1.5L fluid restriction continue monitor BMP twice weekly Continue Daily I/O -10L output DM II: Hgb a1c of 7.7 in May 2017 On Levemir subq Continue Insulin coverage Continue monitor BS Chronic A Fib: rate is controlled INR 1.9 Coumadin 2mg Continue monitor lNR BART on CKD Stage IV: Creatine on admission 2.85 Baseline GFR ~30, Cr 2.4 Creatine 2.2 today Mostly creatine will worsening due to IV lasix Consult nephrology Continue monitor BMP Stable H/o R DVT/PE: S/p IVC filter On Coumadin INR 1.9 HTN: Stable Continue home meds Hypothyroidism: TSH elevated to 6.3 Levothyroxine increased to 37.5 Check TSH in 4-6 weeks DVT px on Coumadin INR 1.9 CODE STATUS FULL CODE DISPOSITION Discharge today to SNF Continue follow with wound care Continue fluid restriction to 1.5 L daily Continue monitor INR Check BMP twice a week to monitor renal function Continue IV antibiotic with IV Varco and Azactam Follow a heathy diabetic diet by limited concentrated sugar intake Consultants: Nephro Ortho Surgery Vascular surgery wound care Procedures: S/P wound debridement Current Inpatient Medications: Current Inpatient Medications Medications (Trade) Dose Ordered Sig/Miguel Route Start Time Stop Time Status Last Admin Dose Admin Glucose (Glucose 40% Gel) 15-30 GRAMS 15 GRAMS... UD PRN PO 06/30/17 14:30 07/30/17 14:29 Glucose (Glucose Chew Tab) 4-8 Tablets 4 Tabl... UD PRN PO 06/30/17 14:30 07/30/17 14:29 Dextrose (Dextrose 50% 50ML Syringe) 25-50ML OF 50% DW IV FOR... UD PRN IV 06/30/17 14:30 07/30/17 14:29 Glucagon (Glucagon Inj) 1 mg UD PRN SQ 06/30/17 14:30 07/30/17 14:29 Insulin Aspart (novoLOG ASPART) SLIDING SCALE ACHS SC 06/30/17 16:15 07/30/17 16:14 07/10/17 12:44 7 UNITS Acetaminophen/ Codeine Phosphate (Tylenol w/ Codeine #3 Tab) 1 tab Q6H PRN PO 06/30/17 15:30 07/30/17 15:29 07/10/17 09:30 1 TAB Albuterol (Ventolin Hfa Inhaler) 2 puffs Q6H PRN INH 06/30/17 15:30 07/30/17 15:29 Atorvastatin Calcium (Lipitor Tab) 80 mg HS PO 06/30/17 21:00 07/30/17 20:59 07/09/17 21:30 80 MG Carvedilol (Coreg Tab) 25 mg BID PO 06/30/17 21:00 07/30/17 20:59 07/10/17 09:27 25 MG Hydroxyzine HCl (Vistaril Tab) 25 mg QID PRN PO 06/30/17 15:30 07/30/17 15:29 07/02/17 09:06 25 MG Loratadine (Claritin Tab) 10 mg DAILY PO 07/01/17 09:00 07/31/17 08:59 07/10/17 09:27 10 MG Magnesium Hydroxide (Milk Of Magnesia Susp) 30 ml DAILY PRN PO 06/30/17 15:30 07/30/17 15:29 Nitroglycerin (Nitrostat Tab) 0.4 mg UD PRN UT 06/30/17 15:30 07/30/17 15:29 Nystatin (Mycostatin Powder) 1 appln DAILY EXT 07/01/17 09:00 07/31/17 08:59 07/10/17 09:29 1 APPLN Ondansetron HCl (Zofran Tab) 4 mg Q8 PRN PO 06/30/17 15:30 07/30/17 15:29 Pregabalin (Lyrica Cap) 75 mg BID PO 06/30/17 21:00 07/30/17 20:59 07/10/17 09:28 75 MG Senna/Docusate Sodium (Senokot S Tab) 2 tab HS PO 06/30/17 21:00 07/30/17 20:59 07/09/17 21:35 2 TAB Tamsulosin HCl (Flomax Cap) 0.4 mg HS PO 06/30/17 21:00 07/30/17 20:59 07/09/17 21:31 0.4 MG Trazodone HCl (Desyrel Tab) 50 mg HS PO 06/30/17 21:00 07/30/17 20:59 07/09/17 21:31 50 MG Ursodiol (Actigall Cap) 300 mg BID PO 06/30/17 21:00 07/30/17 20:59 07/10/17 09:27 300 MG Venlafaxine HCl (effeXOR TAB) 75 mg QAM PO 07/01/17 09:00 07/31/17 08:59 07/10/17 09:28 75 MG Pantoprazole Sodium (Protonix Tab) 40 mg DAILY PO 07/01/17 09:00 07/31/17 08:59 07/10/17 09:28 40 MG Miscellaneous Information (Check Fentanyl Patch Placement) 1 ea QS N/A 07/01/17 00:00 07/31/17 00:00 07/10/17 09:25 1 EA Fentanyl (Duragesic Patch) 25 mcg Q72H TD 07/03/17 08:00 07/17/17 07:59 07/09/17 12:07 25 MCG Miscellaneous (Fentanyl Patch Remove & Waste) 1 ea Q3D@0759 N/A 07/03/17 07:59 08/02/17 07:58 07/09/17 12:12 1 EA Potassium Chloride (Klor-Con M10) 10 meq BIDM PO 07/01/17 16:45 07/31/17 16:44 07/10/17 09:28 10 MEQ Polyethylene (Miralax Powder Packet) 17 gm QAM PO 07/02/17 11:00 08/01/17 10:59 07/10/17 09:28 17 GM Levothyroxine Sodium (Synthroid Tab) 37.5 mcg DAILYBB PO 07/04/17 06:30 07/31/17 05:59 07/10/17 05:44 37.5 MCG Insulin Detemir (Levemir Flexpen/ FlexTouch) 15 units QAM SC 07/06/17 08:00 08/05/17 07:59 07/10/17 09:34 15 UNITS Warfarin Sodium (Coumadin Tab) 2 mg DAILY@16 PO 07/06/17 16:00 08/05/17 15:59 07/09/17 16:34 2 MG Aztreonam 2000 mg/ Dextrose 110 ml @ 110 mls/hr Q8H IV 07/06/17 12:00 07/16/17 11:59 07/10/17 12:07 110 MLS/HR Insulin Detemir (Levemir Flexpen/ FlexTouch) 5 units HS SC 07/08/17 21:00 08/07/17 20:59 07/09/17 21:46 5 UNITS Furosemide (Lasix Tab) 80 mg BID17 PO 07/09/17 17:00 08/08/17 16:59 07/10/17 09:29 80 MG Vancomycin HCl (Consult) 1 ea UD PRN N/A 07/10/17 13:00 08/09/17 12:59 Vancomycin HCl 2750 mg/Sodium Chloride 555 ml @ 200 mls/hr NOW ONCE IV 07/10/17 13:00 07/10/17 15:46 07/10/17 13:29 200 MLS/HR Vancomycin HCl 2000 mg/Sodium Chloride 540 ml @ 200 mls/hr Q24H IV 07/11/17 14:00 07/21/17 13:59 Heparin Sodium (Porcine) (Heparin 10 Unit/ ml 5 ml Flush) 5 ml PRN PRN FLUSH 07/10/17 15:15 08/09/17 15:14
[2017-07-10] MEDS ORDERED: LEVO25TA PO ×2 (16:08)
[2017-07-10] MEDS ORDERED: VANC500I IV ×2 (16:08)
[2017-07-10] MEDS ORDERED: CMD2 PO ×2 (16:08)
[2017-07-10] MEDS ORDERED: [UNRECOGNIZED DRUG - CODE] IV ×2 (16:08)
[2017-07-10] MEDS ORDERED: LSX80 PO ×2 (16:08)
--- NOTE | 2017-07-10 16:19 | Discharge Instructions ---
Discharge Instructions Date of Service Jul 10, 2017. Admission Reason for Admission: Volume Overload, Gauragn Discharge Discharge Diagnosis / Problem: Bilateral lower extremity swelling, B/L Lower Ext cellulitis Discharge Goals Goal(s): Decrease discomfort, Improve function, Improve disease control Activity Recommendations Activity Limitations: resume your previous activity (As tolerated) . Instructions / Follow-Up Instructions / Follow-Up Discharge today to Follow up with your primary care provider Continue follow with wound care Daily wound care with aquacel AG, cover with optifoam Continue fluid restriction to 1.5 L daily Continue monitor INR Check BMP twice a week to monitor renal function Continue IV antibiotic with Vanco and Azactam for 2 weeks Check Vanco level on 07/13 @ 1330 prior to 1400 oclock dose Follow a heathy diabetic diet by limited concentrated sugar intake No sue wraps to be used in the lower extremities Current Hospital Diet Patient's current hospital diet: Low Sodium Diet (2gm Na), Diabetes Type 2 Diet Discharge Diet Recommended Diet: Low Sodium Diet (2gm Na), Diabetes Type 2 Diet Procedures Procedures Performed: Wound debridement Pending Studies Studies pending at discharge: no Laboratory Results Hemoglobin A1c Test 06/09/17 04:05 Range/Units Estimated Average Glucose 174 mg/dl Hemoglobin A1c 7.7 H 4.5-5.6 % Lipid Panel Test 06/22/17 05:15 Range/Units Triglycerides Level 118 0-150 mg/dl Cholesterol Level 60 0-200 mg/dl HDL Cholesterol 21 mg/dl Cholesterol/HDL Ratio 2.9 LDL Cholesterol, Calculated 15 mg/dl Medical Emergencies . Who to Call and When: Medical Emergencies: If at any time you feel your situation is an emergency, please call 911 immediately. . Non-Emergent Contact Non-Emergency issues call your: Primary Care Provider Call Non-Emergent contact if: temperature is above 101, you have any medication questions . . "Provider Documentation" section prepared by Genesis Salazar. . VTE Core Measure Inpt VTE Proph given/why not?: Warfarin (Coumadin)
--- NOTE | 2017-07-10 16:24 | Discharge Summary ---
Discharge Summary Date of Service Jul 10, 2017. Discharge Summary Admission Date: Jun 30, 2017 at 11:31 Discharge Disposition: [facility] facility Principal Diagnosis: Bilateral lower extremity cellulitis Secondary Diagnoses/Problems: Bilateral lower extremity swelling DM type 2 Chronic systolic heart failure BART on CKD Stage IV Hypothyroidism Hx PE/DVT Chronic Afib HTN Procedures: S/P wound debridement [~ rep ct add3]] RIGHT LOWER LEG CT CT DOSE: 1716.60 mGy.cm HISTORY: Right lower leg swelling. rule out compartment compartment syndrome,fasicitis,gas,abscess TECHNIQUE: Multiaxial CT images of the right lower leg were performed and reformatted in the sagittal and coronal plane without the use of contrast. A dose lowering technique was utilized adhering to the principles of ALARA. COMPARISON: Right lower leg CT 05/25/2017. FINDINGS: There is severe subcutaneous edema and skin thickening throughout the visualized right lower leg and foot. This is not significantly change compared to the prior study. There is no soft tissue gas identified at this time. Evaluation for an abscess is limited due to the lack of intravenous contrast. However, no loculated fluid collections identified. There is complete fatty atrophy of the visualized muscles of the right lower extremity. Small right knee effusion. No edema or fat stranding within the muscular compartments to suggest a fasciitis or myositis. Cortical thickening at the bases of the third and fourth metatarsals remains unchanged and may be due to an old fracture. There is also mild periosteal thickening at the mid to distal fibula which could be due to the chronic stasis. No acute fracture or dislocation within the visualized osseous structures. No bony destruction to suggest osteomyelitis at this time. Plantar heel spur. IMPRESSION: 1. Overall, no significant change compared the prior study. 2. Severe subcutaneous edema and skin thickening throughout the visualized right lower leg and foot. This favors diffuse edema or a cellulitis. No soft tissue gas identified. 3. No bony destruction to suggest osteomyelitis at this time. 4. Diffuse osteopenia and complete fatty atrophy of the visualized muscles of the right lower extremity are again noted. Electronically signed by: Kike Shelton M.D. 06/30/2017 2:16 PM Dictated Date/Time: 06/30/2017 2:07 PM Consultations: Nephro Ortho Surgery Vascular surgery wound care Medication Reconciliation New Medications: Aztreonam (Aztreonam) 2 Gm Inj 2 GM IV Q8H for 14 Days Vancomycin Hcl In Dextrose (Vancomycin Hcl In Dextros) 1 Inj Inj 2 GM IV DAILY@1400 for 14 Days Changed Medications: Furosemide (Furosemide) 80 Mg Tab 120 MG PO BID17 for 30 Days, TAB 1 Refill (Changed from: 80 MG; Removed Quantity ) Levothyroxine Sodium (Synthroid) 25 Mcg Tab 37.5 MCG PO DAILY for 30 Days, TAB (Changed from: 25 MCG) Warfarin Sod (Coumadin) 2 Mg Tab 2 MG PO DAILY for 30 Days (Changed from: Warfarin Sod (Coumadin) 3 Mg Tab 1 Tab PO DAILY) Continued Medications: Acetaminophen (Tylenol) 500 Mg Tab 500 MG PO Q4 PRN for Pain or Fever use for mild pain 1-3 or fever >101f max 3gm apap/24hr Acetaminophen/Codeine (Tylenol W/Codeine #3) 300 Mg/30 Mg Tab 1 TAB PO Q6H PRN for Pain, TAB Albuterol Hfa (Ventolin Hfa) 200 Puffs/58466 Mcg Aers 2 PUFFS INH Q6H PRN for Wheezing Atorvastatin (Lipitor) 40 Mg Tab 80 MG PO HS, TAB UES 40MG TABS FOR 80MG DOSE Bisacodyl (Dulcolax) 10 Mg Sup 1 SUPP UT Q24H PRN for no bm past 2 days, SUP Carvedilol (Coreg) 25 Mg Tab 25 MG PO BID Dextrose (Diabetic Use) (Insta-Glucose) 77.4 % Gel 1 APPLN PO UD PRN for HYPOGLYCEMIA PROTOCOL Esomeprazole Magnesium (Nexium) 40 Mg Capcr 40 MG PO DAILY, CAP Fentanyl (Fentanyl) 25 Mcg Tdsy 25 MCG TD Q72H, #10 Glucagon (Glucagon Emergency Kit) 1 Mg Kit Hydroxyzine Hcl (Atarax) 25 Mg Tab 25 MG PO QID PRN for Itching, TAB Insulin Aspart (Novolog Flexpen) 100 Units/Ml Inj 0 UNITS SC ACHS, #1 2 Refills INSULIN NOVOLOG SLIDING SCALE BLOOD SUGARS GOAL RANGE 110-140MG/DL CORRCTION FACTOR = 25MG/DL/UNIT CARB RATIO = 1 UNIT PER 10 GRAM CHO CONSUMED Insulin Detemir (Levemir) 100 Units/Ml Inj 15 UNITS SQ BID, #1 1 Refill Lactobacillus Acidophilus (Lactinex) Tab 2 TAB PO BID for 20 Days, TAB Loratadine (Claritin) 10 Mg Tab 10 MG PO DAILY, TAB Magnesium Hydroxide (Milk Of Magnesia) 30 Ml Susp 30 ML PO UD PRN for Constipation, ML Melatonin (Melatonin) 5 Mg Tab 10 MG PO HS Multiple Vitamins W/ Minerals (Theragran-M) 1 Tab Tab 1 TAB PO QAM Nitroglycerin (Nitrostat) 0.4 Mg Tab 0.4 MG UT UD PRN for Chest Pain Nystatin (Nystop) 45 Appln/15 Gm Powd 1 APPLN EXT DAILY, #1 2 Refills Ondansetron Hcl (Zofran) 4 Mg Tab 4-8 MG PO Q8 PRN for Nausea, TAB Polyethylene Glycol 3350 (Miralax) 1 Pow Pow 17 GM PO DAILY, #255 GM Potassium Chloride (Potassium Chloride Er) 10 Meq Cap 1 CAP PO DAILY for 90 Days, #90 CAP 1 Refill Pregabalin (Lyrica) 75 Mg Cap 75 MG PO BID, CAP Sennosides-Docusate Sodium (Sennalax-S) 1 Tab Tab 2 TABS PO HS Tamsulosin HCl (Tamsulosin HCl) 0.4 Mg Cap 0.4 MG PO HS, #30 CAP 2 Refills Trazodone Hcl (Trazodone) 50 Mg Tab 50 MG PO HS, TAB Ursodiol (Ursodiol) 300 Mg Cap 300 MG PO BID Venlafaxine Hcl (Effexor) 75 Mg Tab 75 MG PO QAM, TAB Admission Information HPI (per Admitting provider): This is a 56yo M with a PMH of HTN, DM II, h/o chronic R DVT, 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 Patient is a direct admission from Dr. Tucker with an elevated Cr of 3.06 and a reported 30 pound weight gain since his last clinic visit. This is the patient's fourth admission since March for worsening BLE edema and cellulitis. Was admitted from Apr 04 for BLE cellulitis, treated with vanc and aztreonam. Was admitted again from Apr 22- for fluid overload, BLE cellulitis with wound cultures growing VRE. Was treated with cipro and ampicillin in-patient and then discharged to [facility] on PO Cipro and amoxicillin. During this most recent admission from May 16-, patient's wounds grew pseudomonas, alcaligenes, and enterococcus and was treated with amoxicillin and cipro. Patient endorses an aching pain in lower legs (R>L) with swelling extending to scrotal area. Per chart review, patient has gained 10 pounds since last admission. Receives wound care at [facility]. Denies fever, chills, diaphoresis, palpitations, orthopnea, PND, nausea, vomiting, focal LE weakness. + Chronic numbness in bilateral LE from knees down from a previous spinal surgery. + Chronic decreased visual acuity. Physical Exam (per Admitting): General Appearance: WD/WN, no apparent distress (Sleepy but cooperative ), + obese Head: normocephalic, atraumatic Eyes: normal inspection, PERRL, sclerae normal ENT: normal ENT inspection, hearing grossly normal, pharynx normal (moist mucous membranes ) Neck: supple, thyroid normal, trachea midline Respiratory/Chest: chest non-tender, lungs clear, normal breath sounds, no respiratory distress, no accessory muscle use Cardiovascular: regular rate, rhythm, no murmur, normal peripheral pulses Abdomen/GI: normal bowel sounds, non tender, soft, no organomegaly Extremities/Musculoskelatal: + pertinent finding (Significant edema to thigh bilaterally. RLE > LLE. Skin hypertrophied any discolored from venous stasis. Presence of wounds in various healing stages on bilat. LE with yellow sloughing tissue. Toenails yellowed; 1st R toenail bed without nail. 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 Bilateral lower extremity swelling: Multifactorial with h/o lymphedema, CHF, CKD, DM type 2 Continue IV lasix 80 BID with albumin Monitor I/O nephrology on board 07/10 Will change lasix to 120mg BID negative 10L Continue1.5L fluid restriction Continue monitor renal function LE swelling slightly improves Nephrology on board Case discussed with Dr. Tucker to continue Lasix at 120mg BID and check BMP twice weekly Clinically stable Severe BLE cellulitis: H/o chronic LE cellulitis with antibiotic resistance, RLE > LLE Grew multiple resistant organisms in the past Multiple hospital admission Worsening as per patient CT LE showed No evidence of abscess formation, drainable fluid collection, or necrotizing fascitis Surgery was consulted and no surgical intervention at this time from surgery team Vascular surgery consulted, No surgical intervention; recommended PATRICIA wrap Infectious disease on board recommended combination of daptomycin and imipenem Ortho consulted recommended no surgical intervention at this time Wound care consult s/p debridement of the ulcerative sites by wound care physician yesterday wound cx grew pseudomonas Continue daily wound care Follow up with wound care as an outpatient Dapto will change to IV Vanco on discharge case discussed with ID and recommended to discharge on IV Vanco and Azactam Chronic systolic/diastolic HF: Asymptomatic CXR showed mild central pulmonary vascular congestion without overt edema. Continue diuresis Will discharge on lasix 120mg BID Last Echo in Mar 2017 showed EF of 55-60%, mild concentric LVH, left atrium severely dilated Continue 1.5L fluid restriction continue monitor BMP twice weekly Continue Daily I/O -10L output DM II: Hgb a1c of 7.7 in May 2017 On Levemir subq Continue Insulin coverage Continue monitor BS Chronic A Fib: rate is controlled INR 1.9 Coumadin 2mg Continue monitor lNR BART on CKD Stage IV: Creatine on admission 2.85 Baseline GFR ~30, Cr 2.4 Creatine 2.2 today Mostly creatine will worsening due to IV lasix Consult nephrology Continue monitor BMP Stable H/o R DVT/PE: S/p IVC filter On Coumadin INR 1.9 HTN: Stable Continue home meds Hypothyroidism: TSH elevated to 6.3 Levothyroxine increased to 37.5 Check TSH in 4-6 weeks DVT px on Coumadin INR 1.9 CODE STATUS FULL CODE DISPOSITION Discharge today to SNF Continue follow with wound care Continue fluid restriction to 1.5 L daily Continue monitor INR Check BMP twice a week to monitor renal function Continue IV antibiotic with IV Varco and Azactam Follow a heathy diabetic diet by limited concentrated sugar intake Total time spent on discharge = 40 minutes This includes examination of the patient, discharge planning, medication reconciliation, and communication with other providers. Discharge Instructions Discharge Instructions Date of Service Jul 10, 2017. Admission Reason for Admission: Volume Overload, Bart Discharge Discharge Diagnosis / Problem: Bilateral lower extremity swelling, B/L Lower Ext cellulitis Discharge Goals Goal(s): Decrease discomfort, Improve function, Improve disease control Activity Recommendations Activity Limitations: resume your previous activity (As tolerated) . Instructions / Follow-Up Instructions / Follow-Up Discharge today to [facility] Follow up with your primary care provider Continue follow with wound care Daily wound care with aquacel AG, cover with optifoam Continue fluid restriction to 1.5 L daily Continue monitor INR Check BMP twice a week to monitor renal function Continue IV antibiotic with Vanco and Azactam for 2 weeks Check Vanco level on 07/13 @ 1330 prior to 1400 oclock dose Follow a heathy diabetic diet by limited concentrated sugar intake No patricia wraps to be used in the lower extremities Current Hospital Diet Patient's current hospital diet: Low Sodium Diet (2gm Na), Diabetes Type 2 Diet Discharge Diet Recommended Diet: Low Sodium Diet (2gm Na), Diabetes Type 2 Diet Procedures Procedures Performed: Wound debridement Pending Studies Studies pending at discharge: no Laboratory Results Hemoglobin A1c Test 06/09/17 04:05 Range/Units Estimated Average Glucose 174 mg/dl Hemoglobin A1c 7.7 H 4.5-5.6 % Lipid Panel Test 06/22/17 05:15 Range/Units Triglycerides Level 118 0-150 mg/dl Cholesterol Level 60 0-200 mg/dl HDL Cholesterol 21 mg/dl Cholesterol/HDL Ratio 2.9 LDL Cholesterol, Calculated 15 mg/dl Medical Emergencies . Who to Call and When: Medical Emergencies: If at any time you feel your situation is an emergency, please call 911 immediately. . Non-Emergent Contact Non-Emergency issues call your: Primary Care Provider Call Non-Emergent contact if: temperature is above 101, you have any medication questions . . "Provider Documentation" section prepared by Genesis Salazar. . VTE Core Measure Inpt VTE Proph given/why not?: Warfarin (Coumadin) Additional Copies To Roberta Xiao
--- NOTE | 2017-07-10 16:26 | DIAGNOSTIC IMAGING REPORT ---
CHEST ONE VIEW PORTABLE CLINICAL HISTORY: 56 years-old Male presenting with picc placement. TECHNIQUE: Portable upright AP view of the chest was obtained. COMPARISON: 07/10/2017 at 3:17 PM. FINDINGS: Right upper extremity PICC now terminates appropriately in the upper SVC. Left-sided implanted cardiac defibrillator with leads to the right atrium, coronary sinus, and right ventricular apex. Cardiac silhouette enlarged though less prominent than on prior exam. Mild prominence of pulmonary vasculature and mild bronchial wall thickening evident, unchanged. Lungs and pleural spaces clear. Osseous structures normal. Upper abdomen normal. IMPRESSION: 1. Appropriately positioned right upper extremity PICC terminating in upper SVC. 2. Cardiomegaly with possible mild volume overload, unchanged. Electronically signed by: Ke Lewis M.D. 07/10/2017 4:25 PM Dictated Date/Time: 07/10/2017 4:23 PM
[2017-07-10] MEDS: WARFARIN SOD 2 MG TAB PO SCH (16:27)
[2017-07-10 16:41] VITALS: BP 163/79; PULSE 65; TEMP 36.5; O2SAT 100
[2017-07-10 19:02] VITALS: BP 163/79; PULSE 65; TEMP 36.5; O2SAT 100
[2017-07-11] MEDS ORDERED: VANCOMYCIN INJ 2,000 MG in SODIUM CHLORIDE 0.9% 500ML 500 ML IV SCH (14:00)
== END 2017-07-10 19:35 | DRG 603 ==
LOC: UNDOADMIN 11:31 → C.2T 11:31 → EDBEDREQSVC 07-02 10:16 → ENRESERV 07-02 10:25 → C.2T 07-02 11:14 → C.MS2W 07-02 11:14 → C.4E 07-02 22:24 → C.MS2W 07-02 22:24
PROVIDERS: ADMIT Hospitalist; ATTEND Internal Medicine
PROC: 0HDLXZZ Extraction of Left Lower Leg Skin, External Approach (ICD-10-PCS; principal; 2017-07-04)
PROC: 0HDKXZZ Extraction of Right Lower Leg Skin, External Approach (ICD-10-PCS; principal; 2017-07-04)
PROC: 02HV33Z Insertion of Infusion Device into Superior Vena Cava, Percutaneous Approach (ICD-10-PCS; 2017-07-10)
DX: L03.115 Cellulitis of right lower limb (principal); I13.0 Hypertensive heart and chronic kidney disease with heart failure and stage 1 through stage 4 chronic kidney disease, or unspecified chronic kidney disease; I50.42 Chronic combined systolic (congestive) and diastolic (congestive) heart failure; N18.4 Chronic kidney disease, stage 4 (severe); L97.919 Non-pressure chronic ulcer of unspecified part of right lower leg with unspecified severity; L97.929 Non-pressure chronic ulcer of unspecified part of left lower leg with unspecified severity; I96 Gangrene, not elsewhere classified; I42.9 Cardiomyopathy, unspecified; Z68.42 Body mass index [BMI] 45.0-49.9, adult; L03.116 Cellulitis of left lower limb; B96.5 Pseudomonas (aeruginosa) (mallei) (pseudomallei) as the cause of diseases classified elsewhere; I89.0 Lymphedema, not elsewhere classified; I87.8 Other specified disorders of veins; E11.22 Type 2 diabetes mellitus with diabetic chronic kidney disease; I48.2 Chronic atrial fibrillation; I25.10 Atherosclerotic heart disease of native coronary artery without angina pectoris; I25.2 Old myocardial infarction; I69.331 Monoplegia of upper limb following cerebral infarction affecting right dominant side; L89.152 Pressure ulcer of sacral region, stage 2; F32.9 Major depressive disorder, single episode, unspecified; E87.5 Hyperkalemia; G89.29 Other chronic pain; E03.9 Hypothyroidism, unspecified; E66.01 Morbid (severe) obesity due to excess calories; Z79.899 Other long term (current) drug therapy; Z79.01 Long term (current) use of anticoagulants; Z79.4 Long term (current) use of insulin; Z79.891 Long term (current) use of opiate analgesic; Z91.11 Patient's noncompliance with dietary regimen; Z16.24 Resistance to multiple antibiotics; Z95.0 Presence of cardiac pacemaker; Z86.718 Personal history of other venous thrombosis and embolism; Z95.828 Presence of other vascular implants and grafts; Z86.711 Personal history of pulmonary embolism; Z82.49 Family history of ischemic heart disease and other diseases of the circulatory system

== ENCOUNTER → 2017-06-30 | Outpatient (CLI) | payer OTHER ==
[2017-06-30 08:50] LABS: INR 3.1 (0.9-1.1); PROTHROMBIN TIME (PATIENT) 35.1 SECONDS (9.0-12.0)
[2017-06-30 08:51] LABS: BLOOD UREA NITROGEN 80 mg/dl (7-18); BUN/CREATININE RATIO 26.5 (10-20); CALCIUM 7.7 mg/dl (8.5-10.1); CARBON DIOXIDE 23 mmol/L (21-32); CHLORIDE 104 mmol/L (98-107); CREATININE 3.02 mg/dl (0.60-1.40); GLUCOSE 169 mg/dl (70-99); POTASSIUM 4.2 mmol/L (3.5-5.1); SODIUM 138 mmol/L (136-145)
== END | disposition home or self-care (01) ==
LOC: C.LABUPNIT 08:15
PROVIDERS: ATTEND Nurse Practitioner Family
DX: I25.10 Atherosclerotic heart disease of native coronary artery without angina pectoris (principal)

== ENCOUNTER → 2017-07-11 | Outpatient (CLI) | payer OTHER ==
[~2017-07-11] MED LIST changes: +CMD2 PO; +CMD3 PO; +LEVO25TA PO; +POTA1CAP2 PO; +VANC500I IV; +[UNRECOGNIZED DRUG - CODE] IV
[2017-07-11 08:51] LABS: HEMATOCRIT 29.4 % (42-52); MEAN CELL VOLUME 84.7 fL (80-100); MEAN CORPUSCULAR HEMOGLOBIN 25.4 pg (25-34); MEAN CORPUSCULAR HGB CONC 29.9 g/dl (32-36); MEAN PLATELET VOLUME 9.9 fL (7.4-10.4); PLATELET COUNT 226 K/uL (130-400); RED BLOOD COUNT 3.47 M/uL (4.7-6.1)
[2017-07-11 09:03] LABS: ALT/SGPT 14 U/L (12-78); BLOOD UREA NITROGEN 70 mg/dl (7-18); BUN/CREATININE RATIO 26.8 (10-20); CALCIUM 8.2 mg/dl (8.5-10.1); CARBON DIOXIDE 24 mmol/L (21-32); CHLORIDE 104 mmol/L (98-107); CREATININE 2.59 mg/dl (0.60-1.40); GLUCOSE 167 mg/dl (70-99); POTASSIUM 3.4 mmol/L (3.5-5.1); SODIUM 137 mmol/L (136-145)
[2017-07-11 09:06] LABS: ALB/GLOB RATIO 0.5 (0.9-2); ALKALINE PHOSPHATASE 175 U/L (45-117); AST/SGOT 30 U/L (15-37)
== END ==
LOC: C.LABUPNIT 08:36
PROVIDERS: ATTEND Nurse Practitioner Family
DX: N18.4 Chronic kidney disease, stage 4 (severe) (principal)

== ENCOUNTER → 2017-07-12 | Outpatient (CLI) | payer OTHER ==
[~2017-07-12] MED LIST changes: -AMOX500C3 PO; -CIPR-255 PO; -CMD3 PO; -WARF5TAB90 PO
[2017-07-12 08:14] LABS: INR 1.3 (0.9-1.1); PROTHROMBIN TIME (PATIENT) 13.8 SECONDS (9.0-12.0)
== END ==
LOC: C.LABUPNIT 07:57
PROVIDERS: ATTEND Nurse Practitioner Family
DX: N18.9 Chronic kidney disease, unspecified (principal)

== ENCOUNTER → 2017-07-13 | Outpatient (CLI) | payer OTHER ==
[~2017-07-13] MED LIST changes: +ACET-1311 PO; -ACET-749 PO; +ACET300T3 PO; +AMOX500C3 PO; +AZTR1INJ5 IV; +CIPR-255 PO; +CMD/25 PO; +CMD3 PO; +CMD4 PO; +EFFSR/75 PO; +FNTTP25 TD; +FRS/40 PO; +LEVO50TA6 PO; +MCTP EXT; +TAMS0.4C38 PO; +VANC1CAP3 IV; +WARF5TAB90 PO; +[UNRECOGNIZED DRUG - CODE] IVF
== END ==
LOC: C.LABUPNIT 13:59
PROVIDERS: ATTEND Nurse Practitioner Family
DX: R69 Illness, unspecified (principal); B95.61 Methicillin susceptible Staphylococcus aureus infection as the cause of diseases classified elsewhere

== ENCOUNTER → 2017-07-14 | Outpatient (CLI) | payer OTHER ==
[~2017-07-14] MED LIST changes: -ACET-1311 PO; +ACET-749 PO; -ACET300T3 PO; -AMOX500C3 PO; -AZTR1INJ5 IV; -CIPR-255 PO; -CMD/25 PO; -CMD3 PO; -CMD4 PO; -EFFSR/75 PO; -FNTTP25 TD; -FRS/40 PO; -LEVO50TA6 PO; -MCTP EXT; -TAMS0.4C38 PO; -VANC1CAP3 IV; -WARF5TAB90 PO; -[UNRECOGNIZED DRUG - CODE] IVF
[2017-07-14 05:54] LABS: INR 1.3 (0.9-1.1); PROTHROMBIN TIME (PATIENT) 13.7 SECONDS (9.0-12.0)
== END ==
LOC: C.LABUPNIT 10:04
PROVIDERS: ATTEND Nurse Practitioner Family
DX: I48.91 Unspecified atrial fibrillation (principal)

== ENCOUNTER → 2017-07-15 | Outpatient (CLI) | payer OTHER ==
[~2017-07-15] MED LIST changes: +ACET-1311 PO; +AZTR1INJ5 IV; +CMD4 PO; +EFFSR/75 PO; +FNTTP25 TD; +FRS/40 PO; +LEVO50TA6 PO; +TAMS0.4C38 PO; +VANC1CAP3 IV; +[UNRECOGNIZED DRUG - CODE] IVF
[2017-07-15 08:57] LABS: BASO % 0.5 %; BASO ABS # 0.04 K/uL (0-0.2); EOS % 5.4 %; HEMATOCRIT 27.6 % (42-52); HEMOGLOBIN 8.4 g/dL (14.0-18.0); IG# 0.01 K/uL (0.00-0.02); LYMPH % 13.7 %; LYMPH ABS # 1.01 K/uL (1.2-3.4); MEAN CELL VOLUME 84.9 fL (80-100); MEAN CORPUSCULAR HEMOGLOBIN 25.8 pg (25-34); MEAN CORPUSCULAR HGB CONC 30.4 g/dl (32-36); MEAN PLATELET VOLUME 9.8 fL (7.4-10.4); MONO % 6.3 %; MONO ABS # 0.46 K/uL (0.11-0.59); NEUT ABS # 5.44 K/uL (1.4-6.5); PLATELET COUNT 208 K/uL (130-400); RED CELL DISTRIBUTION WIDTH SD 59.4 fL (36.4-46.3); WHITE BLOOD COUNT 7.36 K/uL (4.8-10.8)
[2017-07-15 09:03] LABS: BLOOD UREA NITROGEN 64 mg/dl (7-18); CALCIUM 8.3 mg/dl (8.5-10.1); CARBON DIOXIDE 25 mmol/L (21-32); CREATININE 2.18 mg/dl (0.60-1.40); GLUCOSE 81 mg/dl (70-99); POTASSIUM 3.6 mmol/L (3.5-5.1); SODIUM 140 mmol/L (136-145)
--- NOTE | 2017-08-21 11:18 | CODING QUERY NO DIAGNOSIS ---
TREATMENT RENDERED WITHOUT A DIAGNOSIS To promote full compliance with coding requirements relating to patient care, physician participation is requested in all cases of street openings inspector uncertainty. Please assist us with providing a diagnosis/symptom for the test(s) below: A diagnosis/symptom was not documented on your Order. A valid diagnosis/symptom is required to bill all insurances. Please remember that we are unable to code a diagnosis of rule out, probable, possible, questionable, or suspected. Tests that require a diagnosis: * CBC W/ AUTO DIFF DIAGNOSIS: * PARTIAL RENAL PROFILE DIAGNOSIS: Provider Signature: Date: Thank you Betty Montoya [employer] Information Management Once completed, please kindly fax back to [phone] For questions please call [phone]
== END ==
LOC: C.LABUPNIT 10:19
PROVIDERS: ATTEND Nurse Practitioner Family
DX: L03.116 Cellulitis of left lower limb (principal); N18.3 Chronic kidney disease, stage 3 (moderate)

== ENCOUNTER → 2017-07-16 | Outpatient (CLI) | payer OTHER ==
[~2017-07-16] MED LIST changes: +CMD/25 PO; +CMD3 PO; +MCTP EXT
== END ==
LOC: C.LABUPNIT 14:00
PROVIDERS: ATTEND Nurse Practitioner Family
DX: Z51.81 Encounter for therapeutic drug level monitoring (principal)

== ENCOUNTER → 2017-07-18 | Outpatient (CLI) | payer OTHER ==
[~2017-07-18] MED LIST changes: -ACET-1311 PO; -AZTR1INJ5 IV; -CMD/25 PO; -CMD3 PO; -CMD4 PO; -EFFSR/75 PO; -FNTTP25 TD; -FRS/40 PO; -LEVO50TA6 PO; -MCTP EXT; -TAMS0.4C38 PO; -VANC1CAP3 IV; -[UNRECOGNIZED DRUG - CODE] IVF
[2017-07-18 09:28] LABS: BASO % 1.6 %; BASO ABS # 0.12 K/uL (0-0.2); EOS % 6.4 %; HEMATOCRIT 28.5 % (42-52); IG% 0.1 %; LYMPH % 16.6 %; LYMPH ABS # 1.23 K/uL (1.2-3.4); MEAN CELL VOLUME 86.4 fL (80-100); MEAN CORPUSCULAR HEMOGLOBIN 25.5 pg (25-34); MEAN CORPUSCULAR HGB CONC 29.5 g/dl (32-36); MEAN PLATELET VOLUME 9.9 fL (7.4-10.4); MONO % 9.9 %; NEUT % 65.4 %; PLATELET COUNT 223 K/uL (130-400); WHITE BLOOD COUNT 7.39 K/uL (4.8-10.8)
[2017-07-18 09:36] LABS: ALT/SGPT 13 U/L (12-78); BLOOD UREA NITROGEN 64 mg/dl (7-18); BUN/CREATININE RATIO 24.8 (10-20); CALCIUM 8.2 mg/dl (8.5-10.1); CARBON DIOXIDE 24 mmol/L (21-32); CHLORIDE 108 mmol/L (98-107); CREATININE 2.56 mg/dl (0.60-1.40); GLUCOSE 108 mg/dl (70-99); POTASSIUM 3.5 mmol/L (3.5-5.1); SODIUM 141 mmol/L (136-145)
[2017-07-18 09:39] LABS: ALB/GLOB RATIO 0.4 (0.9-2); ALKALINE PHOSPHATASE 145 U/L (45-117); AST/SGOT 13 U/L (15-37)
[2017-07-18 09:55] LABS: ANISOCYTOSIS PRESENT; COMPLETE YES; ECHINOCYTES 1+; HYPOCHROMIA PRESENT
[2017-07-18 10:13] LABS: INR 1.7 (0.9-1.1); PROTHROMBIN TIME (PATIENT) 18.1 SECONDS (9.0-12.0)
== END ==
LOC: C.LABUPNIT 08:50
PROVIDERS: ATTEND Nurse Practitioner Family
DX: N18.4 Chronic kidney disease, stage 4 (severe) (principal); E87.6 Hypokalemia; I80.291 Phlebitis and thrombophlebitis of other deep vessels of right lower extremity; B95.61 Methicillin susceptible Staphylococcus aureus infection as the cause of diseases classified elsewhere

== ENCOUNTER → 2017-07-19 | Outpatient (CLI) | payer OTHER | LOC: C.LABUPNIT 08:50 | PROVIDERS: ATTEND Nurse Practitioner Family | DX: L03.116 Cellulitis of left lower limb (principal) ==

== ENCOUNTER → 2017-07-20 | Outpatient (CLI) | payer OTHER ==
[2017-07-20 09:17] LABS: FERRITIN 173.9 ng/ml (8.0-388.0)
[2017-07-20 09:18] LABS: INR 3.7 (0.9-1.1); PROTHROMBIN TIME (PATIENT) 38.2 SECONDS (9.0-12.0)
[2017-07-20 09:40] LABS: ESTIMATED AVERAGE GLUCOSE 169 mg/dl; HA1C FLAG Normal (Normal)
== END ==
LOC: C.LABUPNIT 08:41
PROVIDERS: ATTEND Nurse Practitioner Family
DX: E11.49 Type 2 diabetes mellitus with other diabetic neurological complication (principal); B95.61 Methicillin susceptible Staphylococcus aureus infection as the cause of diseases classified elsewhere; N18.4 Chronic kidney disease, stage 4 (severe); E11.22 Type 2 diabetes mellitus with diabetic chronic kidney disease

== ENCOUNTER → 2017-07-21 | Outpatient (CLI) | payer OTHER ==
[2017-07-21 09:42] LABS: HEMATOCRIT 24.6 % (42-52)
[2017-07-21 09:56] LABS: PROTHROMBIN TIME (PATIENT) 63.3 SECONDS (9.0-12.0)
[2017-07-21 10:18] LABS: INR 6.2 (0.9-1.1)
== END ==
LOC: C.LABUPNIT 08:55
PROVIDERS: ATTEND Nurse Practitioner Family
DX: I25.10 Atherosclerotic heart disease of native coronary artery without angina pectoris (principal)

== ENCOUNTER → 2017-07-23 | Outpatient (CLI) | payer OTHER ==
[2017-07-23 22:09] LABS: INR 3.3 (0.9-1.1); PROTHROMBIN TIME (PATIENT) 34.1 SECONDS (9.0-12.0)
== END ==
LOC: C.LABSPEC 09:36
PROVIDERS: ATTEND Nurse Practitioner Family
DX: I48.91 Unspecified atrial fibrillation (principal); B95.61 Methicillin susceptible Staphylococcus aureus infection as the cause of diseases classified elsewhere

== ENCOUNTER → 2017-07-25 | Outpatient (CLI) | payer OTHER ==
[2017-07-25 14:08] LABS: BLOOD UREA NITROGEN 52 mg/dl (7-18); BUN/CREATININE RATIO 21.6 (10-20); CALCIUM 7.6 mg/dl (8.5-10.1); CARBON DIOXIDE 19 mmol/L (21-32); CHLORIDE 113 mmol/L (98-107); CREATININE 2.42 mg/dl (0.60-1.40); GLUCOSE 126 mg/dl (70-99); POTASSIUM 3.5 mmol/L (3.5-5.1); SODIUM 141 mmol/L (136-145); TOTAL IRON BINDING CAPACITY 200 mcg/dl (250-450)
[2017-07-25 14:12] LABS: INR 2.1 (0.9-1.1); PROTHROMBIN TIME (PATIENT) 21.5 SECONDS (9.0-12.0)
== END ==
LOC: C.LABUPNIT 13:38
PROVIDERS: ATTEND Nurse Practitioner Family
DX: N18.4 Chronic kidney disease, stage 4 (severe) (principal)

== ENCOUNTER → 2017-07-27 | Outpatient (CLI) | payer OTHER ==
[~2017-07-27] MED LIST changes: -VANC500I IV
[2017-07-27 09:17] LABS: INR 2.1 (0.9-1.1); PROTHROMBIN TIME (PATIENT) 22.1 SECONDS (9.0-12.0)
== END | disposition home or self-care (01) ==
LOC: C.LABUPNIT 08:44
PROVIDERS: ATTEND Nurse Practitioner Family
DX: I82.91 Chronic embolism and thrombosis of unspecified vein (principal)

== ENCOUNTER → 2017-07-29 | Outpatient (CLI) | payer OTHER ==
[~2017-07-29] MED LIST changes: -[UNRECOGNIZED DRUG - CODE] IV
== END ==
LOC: C.LABUPNIT 10:29
PROVIDERS: ATTEND Nurse Practitioner Family
DX: B95.61 Methicillin susceptible Staphylococcus aureus infection as the cause of diseases classified elsewhere (principal)

== ENCOUNTER → 2017-07-30 | Outpatient (CLI) | payer OTHER ==
[~2017-07-30] MED LIST changes: +ACET-1311 PO; -ACET-749 PO; +ACET300T3 PO; +AZTR1INJ5 IV; +CMD/25 PO; +CMD3 PO; +CMD4 PO; +EFFSR/75 PO; +FNTTP25 TD; +FRS/40 PO; +LEVO50TA6 PO; +MCTP EXT; +TAMS0.4C38 PO; +VANC1CAP3 IV; +[UNRECOGNIZED DRUG - CODE] IVF
--- NOTE | 2017-08-04 08:42 | CODING QUERY NO DIAGNOSIS ---
TREATMENT RENDERED WITHOUT A DIAGNOSIS : 59 To promote full compliance with coding requirements relating to patient care, physician participation is requested in all cases of health information coder uncertainty. Please assist us with providing a diagnosis/symptom for the test(s) below: A diagnosis/symptom was not documented on your Order. A valid diagnosis/symptom is required to bill all insurances. Please remember that we are unable to code a diagnosis of rule out, probable, possible, questionable, or suspected. Tests that require a diagnosis: DOS: 07/30/17 * VANCOMYCIN TROUGH DIAGNOSIS: Provider Signature: Date: Thank you Patricia [facility] Information Management Once completed, please kindly fax back to [phone] For questions please call [phone]
== END ==
LOC: C.LABUPNIT 11:33
PROVIDERS: ATTEND Nurse Practitioner Family
DX: L03.116 Cellulitis of left lower limb (principal)

== ENCOUNTER → 2017-07-31 | Outpatient (CLI) | payer OTHER ==
[~2017-07-31] MED LIST changes: -ACET-1311 PO; +ACET-749 PO; -ACET300T3 PO; -AZTR1INJ5 IV; -CMD/25 PO; -CMD3 PO; -CMD4 PO; -EFFSR/75 PO; -FNTTP25 TD; -FRS/40 PO; -LEVO50TA6 PO; -MCTP EXT; -TAMS0.4C38 PO; -VANC1CAP3 IV; -[UNRECOGNIZED DRUG - CODE] IVF
[2017-07-31 08:58] LABS: PROTHROMBIN TIME (PATIENT) 72.5 SECONDS (9.0-12.0)
[2017-07-31 09:19] LABS: INR 7.2 (0.9-1.1)
== END ==
LOC: C.LABUPNIT 08:33
PROVIDERS: ATTEND Nurse Practitioner Family
DX: B95.61 Methicillin susceptible Staphylococcus aureus infection as the cause of diseases classified elsewhere (principal); I73.9 Peripheral vascular disease, unspecified

== ENCOUNTER 2017-08-01 15:06 | Inpatient (IN) | payer OTHER ==
[~2017-08-01] VITALS: Ht 203.2 cm; Wt 159.8 kg
[~2017-08-01 15:06] MED LIST changes: -VANC500I IV; -[UNRECOGNIZED DRUG - CODE] IV
[2017-08-01 17:25] VITALS: BP 122/67; PULSE 64; TEMP 36.6; O2SAT 98; Ht 203.2 cm; Wt 159.8 kg
--- NOTE | 2017-08-01 18:15 | History and Physical ---
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 Patient is a direct admission from Dr. Tucker. This is the patient's fifth admission since March 2017 for worsening BLE edema Patient was last discharged from [facility] on 06/30/17 after hospitalization primarily for bilateral lower extremity edema requiring IV diuresis Patient has multiple co-morbid conditions including persistent infections vs colonizations of lower extremity superficial lymphatic drainage vs serosanguineous fluids from blisters or ulcers. Because patient has had cardiac defibrillator, there is always concern that his cardiac defibrillator will become infected and patient has on repeated hospitalizations been followed by infectious disease service Patient's diuresis also complicated by acute kidney injury on CKD For these reasons of poor renal function and history of thromboembolism, patient has been on coumadin over other joint terminal attack controller anticoagulation medications Past Medical/Surgical History Medical Problems: (1) CAD (coronary artery disease) Status: Chronic (2) Chronic a-fib Status: Chronic (3) Chronic CHF Permanent Comment: combined systolic and diastolic Status: Chronic (4) Chronic pain Status: Chronic (5) CKD (chronic kidney disease), stage IV Status: Chronic (6) Depression Status: Chronic (7) Diabetes mellitus, type II Status: Chronic (8) Dyslipidemia Status: Chronic (9) H/o sacral fracture Status: Chronic (10) Heart attack Status: Resolved (11) History of pulmonary embolus (PE) Status: Chronic (12) History of stroke Status: Chronic (13) HTN (hypertension) Status: Chronic (14) Idiopathic cardiomyopathy Status: Chronic (15) Ischemic cardiomyopathy Status: Resolved (16) Lymphedema Status: Chronic (17) Obesity, morbid, BMI 40.0-49.9 Status: Chronic (18) Obstructive hydrocephalus Status: Chronic (19) Pulmonary embolism Status: Resolved (20) Right leg DVT Status: Chronic (21) Sleep apnea Permanent Comment: not on CPAP Status: Chronic (22) Venous insufficiency Status: Chronic Surgical Problems: (1) H/O eye surgery Status: Chronic (2) History of brain shunt Status: Chronic (3) History of cholecystectomy Permanent Comment: 08/23/16 Status: Resolved (4) S/p pacemaker defibrillator Status: Chronic (5) S/P spinal surgery Status: Chronic (6) S/p vein filter Status: Chronic Family History FH: CAD (coronary artery disease) FATHER ( of [place] late 60's) Social History Smoking Status: Never Smoker Drug Use: none Marital Status: Housing status: assisted living, other Occupational Status: disabled Immunizations History of Influenza Vaccine: Unknown Multi-Drug Resistant 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, MRSA Allergies Coded Allergies: Cephalosporins (Verified Allergy, Unknown, increased HR vs sick to stomach , pt unsure abx allergy to?, 05/05/17) Clindamycin (Verified Allergy, Unknown, increased HR vs sick to stomach, pt unsure abx allergy to?, 05/05/17) Iodinated Diagnostic Agents (Verified Allergy, Unknown, unknown, 04/04/17) Penicillins (Unverified Allergy, Unknown, increased HR vs sick to stomach , pt unsure abx allergy to?, 05/05/17) Perflutren (Verified Allergy, Unknown, PERFLUTREN LIPID MICROSPHERES, 04/04) Home Medications Scheduled Atorvastatin (Lipitor), 80 MG PO HS Carvedilol (Coreg), 25 MG PO BID Esomeprazole Magnesium (Nexium), 40 MG PO DAILY Fentanyl (Fentanyl), 25 MCG TD Q72H Furosemide (Furosemide), 120 MG PO BID17 Insulin Aspart (Novolog Flexpen), 0 UNITS SC ACHS Insulin Detemir (Levemir), 15 UNITS SQ BID Lactobacillus Acidophilus (Lactinex), 2 TAB PO BID Levothyroxine Sodium (Synthroid), 37.5 MCG PO DAILY Loratadine (Claritin), 10 MG PO DAILY Melatonin (Melatonin), 10 MG PO HS Multiple Vitamins W/ Minerals (Theragran-M), 1 TAB PO QAM Nystatin (Nystop), 1 APPLN EXT DAILY Polyethylene Glycol 3350 (Miralax), 17 GM PO DAILY Potassium Chloride (Potassium Chloride Er), 1 CAP PO DAILY Pregabalin (Lyrica), 75 MG PO BID Sennosides-Docusate Sodium (Sennalax-S), 2 TABS PO HS Tamsulosin HCl (Tamsulosin HCl), 0.4 MG PO HS Trazodone Hcl (Trazodone), 50 MG PO HS Ursodiol (Ursodiol), 300 MG PO BID Venlafaxine Hcl (Effexor), 75 MG PO QAM Warfarin Sod (Coumadin), 2 MG PO DAILY Scheduled PRN Acetaminophen (Tylenol), 500 MG PO Q4 PRN for Pain or Fever Acetaminophen/Codeine (Tylenol W/Codeine #3), 1 TAB PO Q6H PRN for Pain Albuterol Hfa (Ventolin Hfa), 2 PUFFS INH Q6H PRN for Wheezing Bisacodyl (Dulcolax), 1 SUPP AL Q24H PRN for no bm past 2 days Dextrose (Diabetic Use) (Insta-Glucose), 1 APPLN PO UD PRN for HYPOGLYCEMIA PROTOCOL Hydroxyzine Hcl (Atarax), 25 MG PO QID PRN for Itching Magnesium Hydroxide (Milk Of Magnesia), 30 ML PO UD PRN for Constipation Nitroglycerin (Nitrostat), 0.4 MG UT UD PRN for Chest Pain Ondansetron Hcl (Zofran), 4-8 MG PO Q8 PRN for Nausea Miscellaneous Medications Glucagon (Glucagon Emergency Kit) Review of Systems Patient lethargic, drowsy, and would not answer questions on review of systems Physical Exam Vital Signs Date Time Temp Pulse Resp B/P (MAP) Pulse Ox O2 Delivery O2 Flow Rate FiO2 08/01/17 17:25 36.6 64 18 122/67 98 Room Air General Appearance: + pertinent finding (lethargic) Head: normocephalic, atraumatic Eyes: normal inspection, EOMI Neck: no JVD, trachea midline Respiratory/Chest: chest non-tender, lungs clear, normal breath sounds, no respiratory distress, no accessory muscle use Cardiovascular: regular rate, rhythm, no JVD, + pertinent finding (3+ bilateral lower extremity edema) Abdomen/GI: normal bowel sounds, non tender, soft Extremities/Musculoskelatal: + pertinent finding (3+ bilateral lower extremity edema) Neurologic/Psych: + pertinent finding (lethargic, drowsy) Skin: + pertinent finding (right leg in guaze dressing) Impression Assessment and Plan Bilateral lower extremity swelling: Lasix 60 mg IV BID ordered will need nephrology consult to adjust diuresis, likely will need Lasix and albumin again on this hospital stay History of chronic Bilateral lower extremity cellulitis: On last admission / discharge in June 30, 20172016 wound cx grew pseudomonas and ID recommended to discharge on IV Vanco and Azactam blood cultures ordered on this admission on 08/01/17 legs likely will need wound care consult and likely will need wound cultures obtained, wound care consult requested Chronic systolic/diastolic HF: Echo in Mar 2017 showed EF of 55-60%, mild concentric LVH, left atrium severely dilated IV Lasix, fluid restriction, daily weights, monitor urine output DM II: Hgb a1c of 7.7 in 05/2017 on insulin, continue and insulin and have requested pharmacy glycemic control Chronic A Fib: On coumadin and monitor lNR, outpatient labs on 08/01/17 is 4.1, will hold coumadin for tonight but unclear whether patient may have taken Coumadin earlier , will need repeat INR on 08/02/17 in the AM CKD Stage IV: monitor GFR while on IV Lasix, monitor urine output H/o R DVT/PE: history of IVC filter On Coumadin INR 1.9 HTN: carvedilol Hypothyroidism: continue Levothyroxine to 37.5 mcg DVT px on Coumadin Level of Care Telemetry Advanced Directives Existing Living Will: No Existing Power of Static Balancer: No
[2017-08-01 18:46] LABS: BASO % 0.9 %; BASO ABS # 0.07 K/uL (0-0.2); IG% 0.3 %; LYMPH % 9.6 %; LYMPH ABS # 0.71 K/uL (1.2-3.4); MEAN CELL VOLUME 85.6 fL (80-100); MEAN PLATELET VOLUME 10.1 fL (7.4-10.4); MONO % 10.4 %; NEUT % 70.8 %; PLATELET COUNT 178 K/uL (130-400); RED BLOOD COUNT 2.92 M/uL (4.7-6.1); WHITE BLOOD COUNT 7.38 K/uL (4.8-10.8)
[2017-08-01 18:53] LABS: MEAN CORPUSCULAR HGB CONC 30.4 g/dl (32-36)
[2017-08-01 18:59] LABS: PROTHROMBIN TIME (PATIENT) 30.6 SECONDS (9.0-12.0)
[2017-08-01] MEDS ORDERED: NON-FORMULARY MEDICATION (Dextrose (Diabetic Use) (Insta-Glucose) 1 APPLN) PO PRN (19:00)
[2017-08-01] MEDS ORDERED: MAGNESIUM HYDROXIDE SUSP 30 ML UDC PO PRN (19:00)
[2017-08-01] MEDS ORDERED: ALBUTEROL HFA 8 GM INHALER INH PRN (19:00)
[2017-08-01] MEDS ORDERED: PHARMACY GLYCEMIC MGMT CONSULT PRN (19:12)
[2017-08-01] MEDS ORDERED: GLUCOSE 10 TABS/TUBE PO PRN (19:30)
[2017-08-01] MEDS ORDERED: DEXTROSE 50% 50 ML SYR IV PRN (19:30)
[2017-08-01] MEDS ORDERED: GLUCOSE 40% GEL 15 GM TUBE PO PRN (19:30)
[2017-08-01] MEDS ORDERED: GLUCAGON FOR INJ 1 MG VIAL SQ PRN (19:30)
[2017-08-01 19:45] LABS: ALB/GLOB RATIO 0.4 (0.9-2); BUN/CREATININE RATIO 23.2 (10-20); CALCIUM 7.2 mg/dl (8.5-10.1); CREATININE 3.19 mg/dl (0.60-1.40); MAGNESIUM 2.2 mg/dl (1.8-2.4); POTASSIUM 3.5 mmol/L (3.5-5.1)
[2017-08-01 19:47] LABS: ANISOCYTOSIS PRESENT; COMPLETE YES; POLYCHROMASIA 1+
[2017-08-01] MEDS: TAMSULOSIN HCL 0.4 MG CAP PO SCH (20:45)
[2017-08-01] MEDS: LACTOBACILLUS ACIDOPHILUS (FLORANEX) TAB PO SCH (20:46)
[2017-08-01] MEDS: ATORVASTATIN 40 MG TAB PO SCH (20:46)
[2017-08-01] MEDS: CARVEDILOL 25 MG TAB PO SCH (20:47)
[2017-08-01] MEDS: URSODIOL 300 MG CAP PO SCH (20:47)
[2017-08-01] MEDS: PREGABALIN 75 MG CAP PO SCH (20:49)
[2017-08-01] MEDS ORDERED: NON-FORMULARY MEDICATION (Melatonin 10 MG) PO SCH (21:00)
[2017-08-01] MEDS ORDERED: FUROSEMIDE INJ 60 MG in SYRINGE 0 ML IV SCH (21:00)
[2017-08-01] MEDS: INSULIN ASPART 100 UNITS/ML 3 ML PEN SC SCH (21:00)
[2017-08-01] MEDS ORDERED: INSULIN DETEMIR FLEXPEN/FLEX TOUCH 100 UNITS/ML 3ML SC SCH (21:30)
[2017-08-01 23:45] VITALS: BP 112/66; PULSE 61; TEMP 37; O2SAT 97
[2017-08-02 03:21] VITALS: BP 114/71; PULSE 60; TEMP 37; O2SAT 98
[2017-08-02] MEDS: hydrOXYzine HCL 25 MG TAB PO PRN ×2 (05:32→13:20)
[2017-08-02] MEDS: LEVOTHYROXINE 75 MCG TAB PO SCH (05:34)
[2017-08-02 06:50] VITALS: BP 151/81; PULSE 62; TEMP 36.5; O2SAT 95
[2017-08-02 08:04] LABS: INR 3.1 (0.9-1.1); PROTHROMBIN TIME (PATIENT) 31.5 SECONDS (9.0-12.0)
[2017-08-02] MEDS: PREGABALIN 75 MG CAP PO SCH ×2 (08:32→22:27)
[2017-08-02] MEDS: VENLAFAXINE HCL XR 75 MG CAPXR PO SCH (08:33)
[2017-08-02] MEDS: PANTOprazole SOD 40 MG TAB PO SCH (08:33)
[2017-08-02] MEDS: CARVEDILOL 25 MG TAB PO SCH ×2 (08:33→22:26)
[2017-08-02] MEDS: POTASSIUM CHLORIDE 10 MEQ TABCR PO SCH (08:34)
[2017-08-02] MEDS: LACTOBACILLUS ACIDOPHILUS (FLORANEX) TAB PO SCH ×2 (08:34→15:48)
[2017-08-02] MEDS: POLYETHYLENE (MIRALAX) 17 GM PACK PO SCH (08:34)
[2017-08-02] MEDS: CEROVITE ADV FORMULA TAB PO SCH (08:35)
[2017-08-02] MEDS: INSULIN ASPART 100 UNITS/ML 3 ML PEN SC SCH ×4 (08:38→22:24)
[2017-08-02] MEDS: URSODIOL 300 MG CAP PO SCH ×2 (08:39→22:26)
[2017-08-02] MEDS: INSULIN DETEMIR FLEXPEN/FLEX TOUCH 100 UNITS/ML 3ML SC SCH ×3 (08:39→22:28)
--- NOTE | 2017-08-02 08:45 | Clinical Documentation Query ---
TIMA Rojas : CLINICAL DOCUMENTATION QUERY Patient is a 56 year old male admitted for treatment of worsening bilateral lower extremity edema. Noted to have "blisters or ulcers" and a "right leg in guaze dressing". Wound clinic note from 07/27/17 included documentation of the following: "1.: stage II pressure ulcer sacrum right foot and toe 2.: venous ulcers bilateral lower extremities 3.: unstageable pressure ulcer right heel" WOCN was consulted for "wound care". No documented wounds exist. Please clarify. In your clinical opinion is this patient being managed for: ( ) Pressure ulcer of sacrum, right foot, right great toe, stage 2; venous stasis ulcers of bilateral lower extremities, unstageable/at least stage 3 pressure ulcer of right heel. ( ) Not Agree ( ) Other explanation of clinical findings (Please Explain) ( ) Unable to determine (Please Define) ( ) Need to Discuss The medical record reflects the following clinical findings, treatment, and risk factors. Clinical Indicators: As above Treatment: WOCN consultation Risk Factors: Age, venous insufficiency, immobility, CKD stage 4, morbid obesity Please clarify and document your clinical opinion in the progress notes and discharge summary. Terms such as "probable", "suspected", "likely", "questionable", "possible", or "still to be ruled out" are acceptable. IF IN AGREEMENT, YOU MUST DOCUMENT ABOVE DIAGNOSTIC STATEMENT IN DAILY PROGRESS NOTES AND DISCHARGE SUMMARY. This document is not part of the patient's record. Thank You, Santana Negrete, ABHISHEK [phone]
--- NOTE | 2017-08-02 09:03 | NEPHROLOGY CONSULTATION ---
DATE OF CONSULTATION: 08/02/2017 DATE OF CONSULTATION: 08/02/2017 ATTENDING OF RECORD: Dr. Mason. REASON FOR CONSULTATION: BART and volume overload. HISTORY OF PRESENT ILLNESS: This is a 56-year-old male who has cardiomyopathy as well as a pacemaker with underlying atrial fibrillation who has significant lymphedema who has had multiple admissions in the past for cellulitis and worsening lower extremity edema. The patient had a 20 pound weight gain over the past week with worsening shortness of breath and was directly admitted from [facility] to [facility]. The patient is cold, shortness of breath is somewhat better this morning compared to yesterday. He continues to have significant lower extremity edema and overall poor vision. PAST MEDICAL HISTORY: Coronary artery disease, chronic AFib, CKD stage IV, type 2 diabetes, hyperlipidemia, history of DVT/PE on Coumadin, ischemic cardiomyopathy, lymphedema, hydrocephalus, sleep apnea. PAST SURGICAL HISTORY: Brain shunt, AICD, IVC filter, spinal surgery. FAMILY HISTORY: Significant for heart disease. SOCIAL HISTORY: No smoking. No drugs, no alcohol. CURRENT MEDICATIONS: Coumadin 2 mg daily, multivitamin daily, Effexor 75 mg daily, Protonix 40 mg daily, MiraLax 17 grams daily, potassium 10 mEq daily, levothyroxine 37.5 mcg daily, Lasix 60 mg IV b.i.d., Lipitor 80 mg at night, Coreg 25 mg p.o. b.i.d., Lyrica 75 mg p.o. b.i.d., Flomax 0.4 mg at night. REVIEW OF SYSTEMS: Positive poor vision. Positive shortness of breath. Positive lymphedema. No chest pain, no nausea or vomiting, no headaches. Positive cold. No fevers or chills. All other review of systems otherwise negative. PHYSICAL EXAMINATION: VITAL SIGNS: Temperature 36.5, pulse 62, respiration rate is 20, blood pressure 151/81, satting 95% on room air. GENERAL: Awake, alert, oriented x3, obese. EYES: No scleral icterus. EARS, NOSE, THROAT: Moist mucous membranes. NECK: Supple. PULMONARY: Decreased breath sounds at the bases. CARDIAC: Regular rate and rhythm. ABDOMEN: Bowel sounds positive, distended. EXTREMITIES: +3 to 4 nonpitting edema. NEUROLOGICALLY: Nonfocal. DERMATOLOGIC: Has some chronic skin changes in the lower extremities with some erythema, worse on the right leg. LABORATORY DATA: White count 7, H&H 7.6 and 25, platelet count 178. Sodium level 138, potassium 3.5, chloride is 112, bicarbonate is 20, BUN 74, creatinine is 3.19, glucose 125, calcium 7.2, mag is 2.2, albumin is 2.1. INR is 3.1. Blood cultures are pending. IMPRESSION AND PLAN: 1. Acute kidney injury on chronic kidney disease stage IV with a creatinine now up to 3.2, baseline in the 2s with worsening lower extremity edema as well as symptoms of shortness of breath. The patient is currently on Lasix 60 mg IV b.i.d. I would like to increase that to 80 mg IV t.i.d. and recommend a Vivas catheter if not already in. The previous hospitalizations the patient was not excited about having a Vivas catheter placed. 2. Anemia. The patient has had iron deficiency anemia requiring IV iron in the past. Would like to check iron sats and ferritin to see if the patient would benefit from IV iron. 3. Infectious disease. Blood cultures are pending. No fevers, no white count. Question if the patient is having underlying cellulitis of the lower extremities. Defer to the primary hospitalist. 4. Hypokalemia. Potassium level is 3.5. Currently on oral potassium supplementation; however, will be increasing the diuretics, so will monitor potassium levels closely. 5. Hypocalcemia. Calcium level 7.2 with albumin of 2.1, so normalizes. Will check ionized calcium tomorrow and replete p.r.n. I appreciate consultation. WANG
[2017-08-02] MEDS: FUROSEMIDE INJ 80 MG in SYRINGE 0 ML IV SCH ×3 (10:11→22:26)
[2017-08-02 10:45] VITALS: BP 159/82; PULSE 110; TEMP 36.4; O2SAT 93
--- NOTE | 2017-08-02 11:46 | Pharmacy Progress Note ---
Glycemic Control Intl Consult Date of Service Aug 02, 2017. Scope Glycemic Pharmacist consulted by Dr Mason on 08/01/17 for glycemic control and to write orders per [facility] inpatient glycemic control protocol Objective Weight (Kilograms): 188.000 Accuchecks BSG (last 24hrs): Test 08/01/17 18:28 08/01/17 21:26 08/02/17 06:18 Random Glucose 134 mg/dl (70-99) Bedside Glucose 125 mg/dl (70-99) 80 mg/dl (70-99) Laboratory Data (last 24hrs) Test 08/01/17 18:28 Anion Gap 6.0 mmol/L BUN/Creatinine Ratio 23.2 Blood Urea Nitrogen 74 mg/dl Creatinine 3.19 mg/dl Potassium Level 3.5 mmol/L Sodium Level 138 mmol/L White Blood Count 7.38 K/uL Red Blood Count 2.92 M/uL Hemoglobin 7.6 g/dL Hematocrit 25.0 % Mean Corpuscular Volume 85.6 fL Mean Corpuscular Hemoglobin 26.0 pg Mean Corpuscular Hemoglobin Concent 30.4 g/dl Platelet Count 178 K/uL Mean Platelet Volume 10.1 fL Neutrophils (%) (Auto) 70.8 % Lymphocytes (%) (Auto) 9.6 % Monocytes (%) (Auto) 10.4 % Eosinophils (%) (Auto) 8.0 % Basophils (%) (Auto) 0.9 % Neutrophils # (Auto) 5.22 K/uL Lymphocytes # (Auto) 0.71 K/uL Monocytes # (Auto) 0.77 K/uL Eosinophils # (Auto) 0.59 K/uL Basophils # (Auto) 0.07 K/uL Recent Pertinent Medications Outpatient Anti-diabetic Regimen: * Levemir 15u BID, Novolog ACHS CF:25/CR:10. Goal BSGs 110-140 * A1c = 7.5 % 07/20/17 The patient is currently receiving: * Basal insulin: Levemir 10u BID * Correctional Insulin: Novolog Correction per scale ACHS Goal Range: Low 110 mg/dL - High 140 mg/dL Correction Factor: 25 mg/dL/unit * Prandial insulin: Per carb ratio of 1 unit per 8 grams CHO consumed Risk Factors for Insulin Resistance: * Infection: chronic b/l extremity cellulitis * IVF: Lasix 60mg IV BID * Diet: T2DM Assessment & Plan ASSESSMENT: * Mr. Perez is a 56yo M well known to the pharmacy glycemic service from previous admissions. He is being admitted for volume overload w/ recurrent b/l LE cellulitis. Preceding data suggests he requires less basal insulin while admitted as compared to his outpatient regimen. Further data shows a slightly tighter carb ratio (8) yields euglycemia compared to his outpatient CR of 10. PLAN FOR INPATIENT GLYCEMIC CONTROL: * Will initiate Levemir scale (BSG</=140 give 8u and >140 give 10u) at 0900 and 1615 for 08/02 only, to mitigate future fasting BSG lows. May trial Levemir scale BID on subsequent days VS 10uQAM & 8uHS. This AMs fasting BSG may indicate the 10u he got last night may have been too heavy handed. * Correctional Insulin with NOVOLOG per scale ACHS * Goal Range: Low 110 mg/dL - High 140 mg/dL * Correction Factor: 25 mg/dL/unit * Nutritional / Prandial insulin per carb ratio of 1 unit per 8 grams CHO consumed * This CF/CR from previous admissions provided good control, will continue this regimen and titrate as clinically indicated. * Please note that the plan above was derived based on current level of insulin resistance and hospital stress. These recommendations are appropriate for inpatient admission only. Plan of care upon discharge will need to be reassessed to avoid potential outpatient hypo/hyperglycemia. Thank you.
--- NOTE | 2017-08-02 14:45 | Progress Note ---
Medicine Progress Note Date & Time of Visit: Aug 02, 2017 at 14:27. Subjective Pt was seen and examined Sitting in bed with no distress Pt said that he feels fine Denies any chest pain, palpitation, dizziness and SOB Objective Last 8 Hrs Date Time Temp Pulse Resp B/P (MAP) Pulse Ox O2 Delivery O2 Flow Rate FiO2 08/02/17 12:00 Room Air 08/02/17 10:45 36.4 110 20 159/82 (107) 93 Room Air 08/02/17 08:00 Room Air 08/02/17 06:50 36.5 62 20 151/81 (104) 95 Room Air Physical Exam: General- No acute distress Head- atraumatic Eyes- PERRL, EOMI ENT- oropharynx clear Neck- supple, no JVD Lungs- No wheezing Heart- regular rhythm Abdomen- normal bowel sounds, Nontender Extremities- B/L edema, leg wrap with dressing Neuro- alert, oriented x 3; PERRL, EOMI; no facial palsy Skin- warm & dry Laboratory Results: Last 24 Hours Test 08/01/17 18:28 08/01/17 21:26 08/02/17 06:18 08/02/17 07:39 White Blood Count 7.38 K/uL Red Blood Count 2.92 M/uL Hemoglobin 7.6 g/dL Hematocrit 25.0 % Mean Corpuscular Volume 85.6 fL Mean Corpuscular Hemoglobin 26.0 pg Mean Corpuscular Hemoglobin Concent 30.4 g/dl Platelet Count 178 K/uL Mean Platelet Volume 10.1 fL Neutrophils (%) (Auto) 70.8 % Lymphocytes (%) (Auto) 9.6 % Monocytes (%) (Auto) 10.4 % Eosinophils (%) (Auto) 8.0 % Basophils (%) (Auto) 0.9 % Neutrophils # (Auto) 5.22 K/uL Lymphocytes # (Auto) 0.71 K/uL Monocytes # (Auto) 0.77 K/uL Eosinophils # (Auto) 0.59 K/uL Basophils # (Auto) 0.07 K/uL RDW Standard Deviation 64.2 fL RDW Coefficient of Variation 20.4 % Immature Granulocyte % (Auto) 0.3 % Immature Granulocyte # (Auto) 0.02 K/uL Nucleated RBC Absolute Count (auto) 0.06 K/uL Nucleated Red Blood Cells % 0.8 % Polychromasia 1+ Anisocytosis PRESENT Prothrombin Time 30.6 SECONDS 31.5 SECONDS Prothromb Time International Ratio 3.0 3.1 Sodium Level 138 mmol/L Potassium Level 3.5 mmol/L Chloride Level 112 mmol/L Carbon Dioxide Level 20 mmol/L Anion Gap 6.0 mmol/L Blood Urea Nitrogen 74 mg/dl Creatinine 3.19 mg/dl Est Creatinine Clear Calc Drug Dose 48.6 ml/min Estimated GFR () 23.7 Estimated GFR (Non- 20.5 BUN/Creatinine Ratio 23.2 Random Glucose 134 mg/dl Calcium Level 7.2 mg/dl Magnesium Level 2.2 mg/dl Total Bilirubin 0.3 mg/dl Aspartate Amino Transf (AST/SGOT) 12 U/L Alanine Aminotransferase (ALT/SGPT) 11 U/L Alkaline Phosphatase 150 U/L Total Protein 7.8 gm/dl Albumin 2.1 gm/dl Globulin 5.7 gm/dl Albumin/Globulin Ratio 0.4 Bedside Glucose 125 mg/dl 80 mg/dl Test 08/02/17 11:24 Bedside Glucose 101 mg/dl Date/Time Source Procedure Growth Status 08/01/17 18:57 Blood Blood Culture Pending Received 08/01/17 18:46 Blood Blood Culture Pending Received Assessment & Plan Bilateral lower extremity swelling: Multifactorial with h/o lymphedema, CHF, CKD, DM type 2 Lasix increased to 80 TID Refused trujillo to monitor I/O 1.5L fluid restriction Continue monitor renal function Nephrology on board B/L LE wound Multiple hospital admission Grew multiple resistant organisms in the past Continue daily wound caret Was discharged on IV Vanco and Azactam in the last admission Wound has been improved since last admission Chronic systolic/diastolic HF Asymptomatic. Last Echo in Mar 2017 showed EF of 55-60%, mild concentric LVH, left atrium severely dilated Continue IV Lasix 80mg TID Continue 1.5L fluid restriction continue monitor BMP twice weekly Continue Daily I/O DM II: Hgb a1c of 7.7 in May 2017 On Levemir subq Continue Insulin coverage Continue monitor BS Chronic A Fib: rate is controlled INR 3,1 Coumadin 2mg Continue monitor lNR BART on CKD Stage IV: Creatine on admission 3.19 Baseline GFR ~30, Cr 2.4 Mostly creatine will worsening due to IV lasix Consult nephrology Continue monitor BMP Stable H/o R DVT/PE: S/p IVC filter On Coumadin INR 3.1 HTN: Stable Continue home meds Hypothyroidism: Levothyroxine increased to 37.5 Will check TSH DVT px on Coumadin INR 3.1 Current Inpatient Medications: Current Inpatient Medications Medications (Trade) Dose Ordered Sig/Miguel Route Start Time Stop Time Status Last Admin Dose Admin Albuterol (Ventolin Hfa Inhaler) 2 puffs Q6H PRN INH 08/01/17 19:00 08/31/17 18:59 Atorvastatin Calcium (Lipitor Tab) 80 mg HS PO 08/01/17 21:00 08/31/17 20:59 08/01/17 20:46 80 MG Carvedilol (Coreg Tab) 25 mg BID PO 08/01/17 21:00 08/31/17 20:59 08/02/17 08:33 25 MG Hydroxyzine HCl (Vistaril Tab) 25 mg QID PRN PO 08/01/17 19:00 08/31/17 18:59 08/02/17 13:20 25 MG Insulin Aspart (novoLOG ASPART) ACHS SC 08/01/17 21:00 08/31/17 20:59 08/02/17 12:16 4 UNITS Lactobacillus Acidophilus (Floranex Tab) 2 tab BIDM PO 08/01/17 21:00 08/31/17 20:59 08/02/17 08:34 2 TAB Levothyroxine Sodium (Synthroid Tab) 37.5 mcg DAILYBB PO 08/02/17 06:00 09/01/17 05:59 08/02/17 05:34 37.5 MCG Magnesium Hydroxide (Milk Of Magnesia Susp) 30 ml UD PRN PO 08/01/17 19:00 08/31/17 18:59 Multivitamins/ Minerals (Multivitamin W/ Minerals Tab) 1 tab QAM PO 08/02/17 09:00 09/01/17 08:59 08/02/17 08:35 1 TAB Pregabalin (Lyrica Cap) 75 mg BID PO 08/01/17 21:00 08/31/17 20:59 08/02/17 08:32 75 MG Tamsulosin HCl (Flomax Cap) 0.4 mg HS PO 08/01/17 21:00 08/31/17 20:59 08/01/17 20:45 0.4 MG Ursodiol (Actigall Cap) 300 mg BID PO 08/01/17 21:00 08/31/17 20:59 08/02/17 08:39 300 MG Venlafaxine HCl (effeXOR EXTENDED REL CAP) 75 mg QAM PO 08/02/17 09:00 09/01/17 08:59 08/02/17 08:33 75 MG Warfarin Sodium (Coumadin Tab) 2 mg DAILY@1600 PO 08/02/17 16:00 09/01/17 15:59 Pantoprazole Sodium (Protonix Tab) 40 mg DAILY PO 08/02/17 09:00 09/01/17 08:59 08/02/17 08:33 40 MG Polyethylene (Miralax Powder Packet) 17 gm DAILY PO 08/02/17 09:00 09/01/17 08:59 Potassium Chloride (Klor-Con M10) 10 meq DAILY PO 08/02/17 09:00 09/01/17 08:59 08/02/17 08:34 10 MEQ Miscellaneous Information (Consult Glycemic Management Pharmacy) 1 ea UD PRN N/A 08/01/17 19:12 08/31/17 19:11 Glucose (Glucose 40% Gel) 15-30 GRAMS 15 GRAMS... UD PRN PO 08/01/17 19:30 08/31/17 19:29 Glucose (Glucose Chew Tab) 4-8 Tablets 4 Tabl... UD PRN PO 08/01/17 19:30 08/31/17 19:29 Dextrose (Dextrose 50% 50ML Syringe) 25-50ML OF 50% DW IV FOR... UD PRN IV 08/01/17 19:30 08/31/17 19:29 Glucagon (Glucagon Inj) 1 mg UD PRN SQ 08/01/17 19:30 08/31/17 19:29 Insulin Detemir (Levemir Flexpen/ FlexTouch) SEE PROTOCOL TEXT DAILY@0900,1615 SC 08/02/17 09:00 08/02/17 18:00 08/02/17 08:39 8 UNITS Furosemide 80 mg/ Syringe 8 ml @ 4 mls/min TID IV 08/02/17 09:00 08/31/17 20:59 08/02/17 13:22 4 MLS/MIN Insulin Detemir (Levemir Flexpen/ FlexTouch) 10 units DAILY@0900 RI 08/03/17 09:00 09/02/17 08:59 Insulin Detemir (Levemir Flexpen/ FlexTouch) 5 units HS RI 08/02/17 21:00 09/01/17 20:59
[2017-08-02] MEDS: WARFARIN SOD 2 MG TAB PO SCH (15:48)
[2017-08-02 16:00] VITALS: O2SAT 94
[2017-08-02] MEDS ORDERED: NURSING VERBAL MED ORDER ONE (18:00)
[2017-08-02 19:21] VITALS: BP 143/87; PULSE 63; TEMP 36.5; O2SAT 97
[2017-08-02] MEDS ORDERED: FENTANYL 25 MCG/HR TDSY TD SCH (19:30)
[2017-08-02] MEDS: ATORVASTATIN 40 MG TAB PO SCH (22:26)
[2017-08-02] MEDS: TAMSULOSIN HCL 0.4 MG CAP PO SCH (22:26)
[2017-08-02 23:42] VITALS: BP 139/85; PULSE 62; TEMP 36.8; O2SAT 95
[2017-08-03] VITALS (7 sets, daily range): BP systolic 133–176; BP diastolic 75–109; PULSE 60–65; TEMP 36.2–36.8; O2SAT 92–97
[2017-08-03] MEDS ORDERED: CHECK FENTANYL PATCH PLACEMENT SCH
[2017-08-03] MEDS: CHECK FENTANYL PATCH PLACEMENT SCH ×3 (00:10→16:00)
[2017-08-03] MEDS: hydrOXYzine HCL 25 MG TAB PO PRN ×2 (02:08→08:27)
[2017-08-03] MEDS: ACETAMINOPHEN/CODEINE 300/30MG TAB PO PRN ×2 (02:08→17:15)
[2017-08-03] MEDS: LEVOTHYROXINE 75 MCG TAB PO SCH (05:45)
[2017-08-03 06:21] LABS: HEMATOCRIT 25.6 % (42-52); MEAN CELL VOLUME 85.6 fL (80-100); MEAN CORPUSCULAR HEMOGLOBIN 25.8 pg (25-34); MEAN CORPUSCULAR HGB CONC 30.1 g/dl (32-36); PLATELET COUNT 196 K/uL (130-400); RED BLOOD COUNT 2.99 M/uL (4.7-6.1); WHITE BLOOD COUNT 5.21 K/uL (4.8-10.8)
[2017-08-03 06:28] LABS: INR 2.9 (0.9-1.1); PROTHROMBIN TIME (PATIENT) 30.1 SECONDS (9.0-12.0)
--- NOTE | 2017-08-03 06:52 | Nephrology Progress Note ---
Nephrology Progress Note Date of Service: Aug 03, 2017. Subjective 56 yo male with volume overload and destiny with chronic wounds. currently on lasix 80 iv tid and urinating very well. pt continues to respectfully refuse the trujillo catheter. pt though breathing better and abdominal distention also improved. Objective Date Time Temp Pulse Resp B/P (MAP) Pulse Ox O2 Delivery O2 Flow Rate FiO2 08/03/17 04:00 Room Air 08/03/17 03:46 36.8 63 22 133/75 (94) 94 Room Air 08/03/17 00:00 Room Air 08/02/17 23:42 36.8 62 16 139/85 (103) 95 Room Air 08/02/17 20:00 Room Air 08/02/17 19:21 36.5 63 24 143/87 (105) 97 Nasal Cannula 08/02/17 16:00 94 Room Air 08/02/17 12:00 Room Air 08/02/17 10:45 36.4 110 20 159/82 (107) 93 Room Air 08/02/17 08:00 Room Air 08/02/17 06:50 36.5 62 20 151/81 (104) 95 Room Air Physical Exam: General-aaox3, obese Eyes-no scleral icterus ENT-mmm Neck-supple Lungs-decreased at bases Heart-rate controlled Abdomen-bs+, distended Extremities-+2 edema with chronic wounds Neuro-nonfocal Current Inpatient Medications Medications (Trade) Dose Ordered Sig/Miguel Route Start Time Stop Time Status Last Admin Dose Admin Albuterol (Ventolin Hfa Inhaler) 2 puffs Q6H PRN INH 08/01/17 19:00 08/31/17 18:59 Atorvastatin Calcium (Lipitor Tab) 80 mg HS PO 08/01/17 21:00 08/31/17 20:59 08/02/17 22:26 80 MG Carvedilol (Coreg Tab) 25 mg BID PO 08/01/17 21:00 08/31/17 20:59 08/02/17 22:26 25 MG Hydroxyzine HCl (Vistaril Tab) 25 mg QID PRN PO 08/01/17 19:00 18 18:59 08/03/17 02:08 25 MG Insulin Aspart (novoLOG ASPART) ACHS SC 08/01/17 21:00 08/31/17 20:59 12/20/17 18:44 5 UNITS Lactobacillus Acidophilus (Floranex Tab) 2 tab BIDM PO 08/01/17 21:00 08/31/17 20:59 08/02/17 15:48 2 TAB Levothyroxine Sodium (Synthroid Tab) 37.5 mcg DAILYBB PO 08/02/17 06:00 09/01/17 05:59 08/03/17 05:45 37.5 MCG Magnesium Hydroxide (Milk Of Magnesia Susp) 30 ml UD PRN PO 08/01/17 19:00 08/31/17 18:59 Multivitamins/ Minerals (Multivitamin W/ Minerals Tab) 1 tab QAM PO 08/02/17 09:00 09/01/17 08:59 08/02/17 08:35 1 TAB Pregabalin (Lyrica Cap) 75 mg BID PO 08/01/17 21:00 08/31/17 20:59 08/02/17 22:27 75 MG Tamsulosin HCl (Flomax Cap) 0.4 mg HS PO 08/01/17 21:00 08/31/17 20:59 08/02/17 22:26 0.4 MG Ursodiol (Actigall Cap) 300 mg BID PO 08/01/17 21:00 08/31/17 20:59 08/02/17 22:26 300 MG Venlafaxine HCl (effeXOR EXTENDED REL CAP) 75 mg QAM PO 08/02/17 09:00 09/01/17 08:59 08/02/17 08:33 75 MG Warfarin Sodium (Coumadin Tab) 2 mg DAILY@1600 PO 08/02/17 16:00 09/01/17 15:59 08/02/17 15:48 2 MG Pantoprazole Sodium (Protonix Tab) 40 mg DAILY PO 08/02/17 09:00 09/01/17 08:59 08/02/17 08:33 40 MG Polyethylene (Miralax Powder Packet) 17 gm DAILY PO 08/02/17 09:00 09/01/17 08:59 Potassium Chloride (Klor-Con M10) 10 meq DAILY PO 08/02/17 09:00 09/01/17 08:59 08/02/17 08:34 10 MEQ Miscellaneous Information (Consult Glycemic Management Pharmacy) 1 ea UD PRN N/A 08/01/17 19:12 08/31/17 19:11 Glucose (Glucose 40% Gel) 15-30 GRAMS 15 GRAMS... UD PRN PO 08/01/17 19:30 08/31/17 19:29 Glucose (Glucose Chew Tab) 4-8 Tablets 4 Tabl... UD PRN PO 08/01/17 19:30 08/31/17 19:29 Dextrose (Dextrose 50% 50ML Syringe) 25-50ML OF 50% DW IV FOR... UD PRN IV 08/01/17 19:30 08/31/17 19:29 Glucagon (Glucagon Inj) 1 mg UD PRN SQ 08/01/17 19:30 08/31/17 19:29 Furosemide 80 mg/ Syringe 8 ml @ 4 mls/min TID IV 08/02/17 09:00 08/31/17 20:59 08/02/17 22:26 4 MLS/MIN Insulin Detemir (Levemir Flexpen/ FlexTouch) 10 units DAILY@0900 SC 08/03/17 09:00 09/02/17 08:59 Insulin Detemir (Levemir Flexpen/ FlexTouch) 5 units HS SC 08/02/17 21:00 09/01/17 20:59 08/02/17 22:28 5 UNITS Acetaminophen/ Codeine Phosphate (Tylenol w/ Codeine #3 Tab) 1 tab Q6H PRN PO 08/02/17 17:12 09/01/17 17:11 08/03/17 02:08 1 TAB Fentanyl (Duragesic Patch) 25 mcg Q3D@1930 TD 08/02/17 19:30 08/16/17 19:29 08/02/17 22:27 25 MCG Miscellaneous (Fentanyl Patch Remove & Waste) 1 ea Q3D@1929 N/A 08/05/17 19:29 09/04/17 19:28 Miscellaneous Information (Check Fentanyl Patch Placement) 1 ea QS N/A 08/03/17 00:00 09/02/17 00:00 08/03/17 00:10 1 EA Last 24 Hours Test 08/02/17 07:39 08/02/17 11:24 08/02/17 16:07 08/02/17 20:48 Prothrombin Time 31.5 SECONDS Prothromb Time International Ratio 3.1 Bedside Glucose 101 mg/dl 95 mg/dl 108 mg/dl Test 08/03/17 04:44 08/03/17 05:28 Transferrin % Saturation % White Blood Count 5.21 K/uL Red Blood Count 2.99 M/uL Hemoglobin 7.7 g/dL Hematocrit 25.6 % Mean Corpuscular Volume 85.6 fL Mean Corpuscular Hemoglobin 25.8 pg Mean Corpuscular Hemoglobin Concent 30.1 g/dl RDW Standard Deviation 63.7 fL RDW Coefficient of Variation 20.3 % Platelet Count 196 K/uL Mean Platelet Volume 10.0 fL Prothrombin Time 30.1 SECONDS Prothromb Time International Ratio 2.9 Ionized Calcium 0.99 mmol/l Assessment & Plan volume overload-continue the lasix 80 iv tid and follow potassium and creatinine trend. volume status appears to be improving. less abdominal distention, more comfortable breathing, legs appear more defined. continue wound care on his chronic wounds. encouraged trujillo however pt continues to decline it. albumin is 2.1, if creatinine continues to worsen, consider giving iv albumin as well to try to mobilize extra fluids. for now, continue current diuretics with no changes.
[2017-08-03 06:59] LABS: BUN/CREATININE RATIO 22.7 (10-20); CALCIUM 7.5 mg/dl (8.5-10.1); CREATININE 3.21 mg/dl (0.60-1.40); POTASSIUM 3.4 mmol/L (3.5-5.1)
[2017-08-03 07:04] LABS: FERRITIN 122.5 ng/ml (8.0-388.0)
[2017-08-03] MEDS: LACTOBACILLUS ACIDOPHILUS (FLORANEX) TAB PO SCH ×2 (08:27→17:08)
[2017-08-03] MEDS: CEROVITE ADV FORMULA TAB PO SCH (08:27)
[2017-08-03] MEDS: FUROSEMIDE INJ 80 MG in SYRINGE 0 ML IV SCH ×2 (08:27→13:50)
[2017-08-03] MEDS: PANTOprazole SOD 40 MG TAB PO SCH (08:27)
[2017-08-03] MEDS: VENLAFAXINE HCL XR 75 MG CAPXR PO SCH (08:28)
[2017-08-03] MEDS: URSODIOL 300 MG CAP PO SCH ×2 (08:28→20:30)
[2017-08-03] MEDS: POTASSIUM CHLORIDE 10 MEQ TABCR PO SCH (08:29)
[2017-08-03] MEDS: POLYETHYLENE (MIRALAX) 17 GM PACK PO SCH (08:29)
[2017-08-03] MEDS: INSULIN ASPART 100 UNITS/ML 3 ML PEN SC SCH ×4 (08:32→20:38)
[2017-08-03] MEDS: INSULIN DETEMIR FLEXPEN/FLEX TOUCH 100 UNITS/ML 3ML SC SCH ×2 (08:32→20:38)
[2017-08-03] MEDS: CARVEDILOL 25 MG TAB PO SCH ×2 (08:32→20:31)
[2017-08-03] MEDS: PREGABALIN 75 MG CAP PO SCH ×2 (08:32→20:33)
[2017-08-03] MEDS: WARFARIN SOD 2 MG TAB PO SCH (17:08)
--- NOTE | 2017-08-03 17:57 | Progress Note ---
Medicine Progress Note Date & Time of Visit: Aug 03, 2017 at 10:51. Subjective Pt was seen and examined Sitting at the edge of the bed with no distress Pt said that he feels ok denies any chest pain, palpitation, dizziness and SOB Objective Last 8 Hrs Date Time Temp Pulse Resp B/P (MAP) Pulse Ox O2 Delivery O2 Flow Rate FiO2 08/03/17 15:20 36.4 63 24 169/94 (119) 93 Nasal Cannula 08/03/17 12:00 Room Air 08/03/17 12:00 36.3 61 16 161/78 (105) 97 Physical Exam: General- No acute distress Head- atraumatic Eyes- PERRL, EOMI ENT- oropharynx clear Neck- supple, no JVD Lungs- No wheezing Heart- regular rhythm Abdomen- normal bowel sounds, Nontender Extremities- +B/L edema, leg wrap with dressing Neuro- alert, oriented x 3; PERRL, EOMI; no facial palsy Skin- warm & dry Laboratory Results: Last 24 Hours Test 08/02/17 20:48 08/03/17 05:28 08/03/17 06:47 08/03/17 11:06 Bedside Glucose 108 mg/dl 87 mg/dl 178 mg/dl White Blood Count 5.21 K/uL Red Blood Count 2.99 M/uL Hemoglobin 7.7 g/dL Hematocrit 25.6 % Mean Corpuscular Volume 85.6 fL Mean Corpuscular Hemoglobin 25.8 pg Mean Corpuscular Hemoglobin Concent 30.1 g/dl RDW Standard Deviation 63.7 fL RDW Coefficient of Variation 20.3 % Platelet Count 196 K/uL Mean Platelet Volume 10.0 fL Prothrombin Time 30.1 SECONDS Prothromb Time International Ratio 2.9 Sodium Level 141 mmol/L Potassium Level 3.4 mmol/L Chloride Level 113 mmol/L Carbon Dioxide Level 20 mmol/L Anion Gap 8.0 mmol/L Blood Urea Nitrogen 73 mg/dl Creatinine 3.21 mg/dl Est Creatinine Clear Calc Drug Dose 43.6 ml/min Estimated GFR () 23.5 Estimated GFR (Non- 20.3 BUN/Creatinine Ratio 22.7 Random Glucose 85 mg/dl Calcium Level 7.5 mg/dl Ionized Calcium 0.99 mmol/l Iron Level 30 mcg/dl Total Iron Binding Capacity 177 mcg/dl Transferrin 158 mg/dl Transferrin % Saturation 14 % Ferritin 122.5 ng/ml Test 08/03/17 16:20 Bedside Glucose 101 mg/dl Assessment & Plan Bilateral lower extremity swelling: Multifactorial with h/o lymphedema, CHF, CKD, DM type 2 Refused trujillo to monitor I/O On 1L fluid restriction Continue lasix 80mg TID Continue monitor renal function Nephrology on board B/L LE wound Multiple hospital admission Grew multiple resistant organisms in the past Continue daily wound care Was discharged on IV Vanco and Azactam in the last admission Wound has been improved since last admission stable Multiple pressure ulcers in sacrum/ B/L LE has been stable Continue daily wound care Chronic Anemia Hb 7.7 Continue monitor CBC Will transfuse if hgb drops below 7 Chronic systolic/diastolic HF Asymptomatic. Last Echo in Mar 2017 showed EF of 55-60%, mild concentric LVH, left atrium severely dilated Continue IV Lasix 80mg TID Continue 1.5L fluid restriction continue monitor BMP twice weekly Continue Daily I/O DM II: Hgb a1c of 7.7 in May 2017 On Levemir subq Continue Insulin coverage Continue monitor BS Chronic A Fib: rate is controlled INR 3,1 Coumadin 2mg Continue monitor lNR BART on CKD Stage IV: Creatine on admission 3.19 Baseline GFR ~30, Cr 2.4 Creatine 3.21 today Mostly creatine will worsening due to IV lasix If creatine worsening, will add albumin with the lasix as per nephro Consult nephrology Continue monitor BMP Stable H/o R DVT/PE: S/p IVC filter On Coumadin INR 2.9 HTN: Stable Continue home meds Hypothyroidism: Levothyroxine increased to 37.5 Will check TSH DVT px on Coumadin INR 2.9 Consultants: Nephro Current Inpatient Medications: Current Inpatient Medications Medications (Trade) Dose Ordered Sig/Miguel Route Start Time Stop Time Status Last Admin Dose Admin Albuterol (Ventolin Hfa Inhaler) 2 puffs Q6H PRN INH 08/01/17 19:00 08/31/17 18:59 Atorvastatin Calcium (Lipitor Tab) 80 mg HS PO 08/01/17 21:00 08/31/17 20:59 08/02/17 22:26 80 MG Carvedilol (Coreg Tab) 25 mg BID PO 08/01/17 21:00 08/31/17 20:59 08/03/17 08:32 25 MG Hydroxyzine HCl (Vistaril Tab) 25 mg QID PRN PO 08/01/17 19:00 08/31/17 18:59 08/03/17 08:27 25 MG Insulin Aspart (novoLOG ASPART) ACHS SC 08/01/17 21:00 08/31/17 20:59 08/03/17 11:37 9 UNITS Lactobacillus Acidophilus (Floranex Tab) 2 tab BIDM PO 08/01/17 21:00 08/31/17 20:59 08/03/17 17:08 2 TAB Levothyroxine Sodium (Synthroid Tab) 37.5 mcg DAILYBB PO 08/02/17 06:00 09/01/17 05:59 08/03/17 05:45 37.5 MCG Magnesium Hydroxide (Milk Of Magnesia Susp) 30 ml UD PRN PO 08/01/17 19:00 08/31/17 18:59 Multivitamins/ Minerals (Multivitamin W/ Minerals Tab) 1 tab QAM PO 08/02/17 09:00 09/01/17 08:59 08/03/17 08:27 1 TAB Pregabalin (Lyrica Cap) 75 mg BID PO 08/01/17 21:00 08/31/17 20:59 08/03/17 08:32 75 MG Tamsulosin HCl (Flomax Cap) 0.4 mg HS PO 08/01/17 21:00 08/31/17 20:59 08/02/17 22:26 0.4 MG Ursodiol (Actigall Cap) 300 mg BID PO 08/01/17 21:00 08/31/17 20:59 08/03/17 08:28 300 MG Venlafaxine HCl (effeXOR EXTENDED REL CAP) 75 mg QAM PO 08/02/17 09:00 09/01/17 08:59 08/03/17 08:28 75 MG Warfarin Sodium (Coumadin Tab) 2 mg DAILY@1600 PO 08/02/17 16:00 09/01/17 15:59 08/03/17 17:08 2 MG Pantoprazole Sodium (Protonix Tab) 40 mg DAILY PO 08/02/17 09:00 09/01/17 08:59 08/03/17 08:27 40 MG Polyethylene (Miralax Powder Packet) 17 gm DAILY PO 08/02/17 09:00 09/01/17 08:59 08/03/17 08:29 17 GM Potassium Chloride (Klor-Con M10) 10 meq DAILY PO 08/02/17 09:00 09/01/17 08:59 08/03/17 08:29 10 MEQ Miscellaneous Information (Consult Glycemic Management Pharmacy) 1 ea UD PRN N/A 08/01/17 19:12 08/31/17 19:11 Glucose (Glucose 40% Gel) 15-30 GRAMS 15 GRAMS... UD PRN PO 08/01/17 19:30 08/31/17 19:29 Glucose (Glucose Chew Tab) 4-8 Tablets 4 Tabl... UD PRN PO 08/01/17 19:30 08/31/17 19:29 Dextrose (Dextrose 50% 50ML Syringe) 25-50ML OF 50% DW IV FOR... UD PRN IV 08/01/17 19:30 08/31/17 19:29 Glucagon (Glucagon Inj) 1 mg UD PRN SQ 08/01/17 19:30 08/31/17 19:29 Furosemide 80 mg/ Syringe 8 ml @ 4 mls/min TID IV 08/02/17 09:00 08/31/17 20:59 08/03/17 13:50 4 MLS/MIN Insulin Detemir (Levemir Flexpen/ FlexTouch) 10 units DAILY@0900 SC 08/03/17 09:00 09/02/17 08:59 08/03/17 08:32 10 UNITS Insulin Detemir (Levemir Flexpen/ FlexTouch) 5 units HS SC 08/02/17 21:00 09/01/17 20:59 08/02/17 22:28 5 UNITS Acetaminophen/ Codeine Phosphate (Tylenol w/ Codeine #3 Tab) 1 tab Q6H PRN PO 08/02/17 17:12 09/01/17 17:11 08/03/17 17:15 1 TAB Fentanyl (Duragesic Patch) 25 mcg Q3D@1930 TD 08/02/17 19:30 08/16/17 19:29 08/02/17 22:27 25 MCG Miscellaneous (Fentanyl Patch Remove & Waste) 1 ea Q3D@1929 N/A 08/05/17 19:29 1/22/18 19:28 Miscellaneous Information (Check Fentanyl Patch Placement) 1 ea QS N/A 08/03/17 00:00 09/02/17 00:00 08/03/17 16:00 1 EA
[2017-08-03] MEDS: TAMSULOSIN HCL 0.4 MG CAP PO SCH (20:32)
[2017-08-03] MEDS: ATORVASTATIN 40 MG TAB PO SCH (20:33)
[2017-08-03] MEDS ORDERED: ALTEPLASE, RECOMBINANT 1 MG/ML 2 ML VIAL IV ONE (21:30)
[2017-08-04 00:01] VITALS: BP 171/90; PULSE 64; TEMP 36.5; O2SAT 96
[2017-08-04] MEDS: CHECK FENTANYL PATCH PLACEMENT SCH ×3 (00:08→16:00)
[2017-08-04] MEDS: FUROSEMIDE INJ 80 MG in SYRINGE 0 ML IV SCH ×4 (01:25→19:46)
[2017-08-04] MEDS: ACETAMINOPHEN/CODEINE 300/30MG TAB PO PRN ×2 (03:36→19:46)
[2017-08-04] MEDS: LEVOTHYROXINE 75 MCG TAB PO SCH (05:49)
[2017-08-04 07:12] LABS: HEMATOCRIT 26.6 % (42-52); MEAN CELL VOLUME 85.5 fL (80-100); MEAN CORPUSCULAR HEMOGLOBIN 25.4 pg (25-34); MEAN CORPUSCULAR HGB CONC 29.7 g/dl (32-36); MEAN PLATELET VOLUME 10.2 fL (7.4-10.4); PLATELET COUNT 211 K/uL (130-400); RED BLOOD COUNT 3.11 M/uL (4.7-6.1); WHITE BLOOD COUNT 5.22 K/uL (4.8-10.8)
[2017-08-04 07:19] LABS: INR 3.3 (0.9-1.1); PROTHROMBIN TIME (PATIENT) 33.4 SECONDS (9.0-12.0)
[2017-08-04 07:33] VITALS: BP 175/90; PULSE 64; TEMP 36.4; O2SAT 93
[2017-08-04 07:34] LABS: BUN/CREATININE RATIO 24.2 (10-20); CALCIUM 7.7 mg/dl (8.5-10.1); CREATININE 3.13 mg/dl (0.60-1.40); POTASSIUM 3.3 mmol/L (3.5-5.1)
[2017-08-04] MEDS: URSODIOL 300 MG CAP PO SCH ×2 (08:00→19:49)
[2017-08-04] MEDS: VENLAFAXINE HCL XR 75 MG CAPXR PO SCH (08:01)
[2017-08-04] MEDS: CEROVITE ADV FORMULA TAB PO SCH (08:01)
[2017-08-04] MEDS: LACTOBACILLUS ACIDOPHILUS (FLORANEX) TAB PO SCH ×2 (08:01→17:40)
[2017-08-04] MEDS: CARVEDILOL 25 MG TAB PO SCH ×2 (08:01→19:49)
[2017-08-04] MEDS: POLYETHYLENE (MIRALAX) 17 GM PACK PO SCH (08:01)
[2017-08-04] MEDS: PREGABALIN 75 MG CAP PO SCH ×2 (08:01→19:46)
[2017-08-04] MEDS: POTASSIUM CHLORIDE 10 MEQ TABCR PO SCH (08:01)
[2017-08-04] MEDS: PANTOprazole SOD 40 MG TAB PO SCH (08:01)
[2017-08-04] MEDS: hydrOXYzine HCL 25 MG TAB PO PRN (08:02)
[2017-08-04] MEDS: INSULIN ASPART 100 UNITS/ML 3 ML PEN SC SCH ×4 (08:13→20:39)
[2017-08-04] MEDS: INSULIN DETEMIR FLEXPEN/FLEX TOUCH 100 UNITS/ML 3ML SC SCH ×2 (08:14→20:42)
[2017-08-04] MEDS ORDERED: POTASSIUM CHLORIDE 20 MEQ TABCR PO ONE (09:30)
--- NOTE | 2017-08-04 09:52 | Nephrology Progress Note ---
Nephrology Progress Note Date of Service: Aug 04, 2017. Subjective 56 yo male with volume overload and destiny with chronic wounds. currently on lasix 80 iv tid and urinating very well. pt usually during hospital admission starts to get frustrated and wants to leave the hospital. i feel we have reached this part of the admission. pt would like to leave today. pt breathing better and abdomen less distended. Objective Date Time Temp Pulse Resp B/P (MAP) Pulse Ox O2 Delivery O2 Flow Rate FiO2 08/04/17 07:33 36.4 64 20 175/90 (118) 93 Room Air 08/04/17 00:01 36.5 64 18 171/90 (117) 96 Room Air 08/04/17 00:00 Room Air 08/03/17 21:00 Room Air 08/03/17 20:29 36.2 60 16 137/78 (97) 92 Room Air 08/03/17 19:36 36.5 65 20 94 08/03/17 19:00 36.8 63 29 158/84 (108) 92 Room Air 08/03/17 16:00 Room Air 08/03/17 15:20 36.4 63 24 169/94 (119) 93 Nasal Cannula 08/03/17 12:00 Room Air 08/03/17 12:00 36.3 61 16 161/78 (105) 97 Physical Exam: General-aaox3, obese Eyes-no scleral icterus ENT-mmm Neck-supple Lungs-cta Heart-rate controlled Abdomen-bs+, less distended Extremities-+2 edema with chronic wounds Neuro-nonfocal Current Inpatient Medications Medications (Trade) Dose Ordered Sig/Miguel Route Start Time Stop Time Status Last Admin Dose Admin Albuterol (Ventolin Hfa Inhaler) 2 puffs Q6H PRN INH 08/01/17 19:00 08/31/17 18:59 Atorvastatin Calcium (Lipitor Tab) 80 mg HS PO 08/01/17 21:00 08/31/17 20:59 08/03/17 20:33 80 MG Carvedilol (Coreg Tab) 25 mg BID PO 08/01/17 21:00 08/31/17 20:59 08/04/17 08:01 25 MG Hydroxyzine HCl (Vistaril Tab) 25 mg QID PRN PO 08/01/17 19:00 08/31/17 18:59 08/04/17 08:02 25 MG Insulin Aspart (novoLOG ASPART) ACHS SC 08/01/17 21:00 08/31/17 20:59 08/04/17 08:13 5 UNITS Lactobacillus Acidophilus (Floranex Tab) 2 tab BIDM PO 08/01/17 21:00 08/31/17 20:59 08/04/17 08:01 2 TAB Levothyroxine Sodium (Synthroid Tab) 37.5 mcg DAILYBB PO 08/02/17 06:00 09/01/17 05:59 08/04/17 05:49 37.5 MCG Magnesium Hydroxide (Milk Of Magnesia Susp) 30 ml UD PRN PO 08/01/17 19:00 08/31/17 18:59 Multivitamins/ Minerals (Multivitamin W/ Minerals Tab) 1 tab QAM PO 08/02/17 09:00 09/01/17 08:59 08/04/17 08:01 1 TAB Pregabalin (Lyrica Cap) 75 mg BID PO 08/01/17 21:00 08/31/17 20:59 08/04/17 08:01 75 MG Tamsulosin HCl (Flomax Cap) 0.4 mg HS PO 08/01/17 21:00 08/31/17 20:59 08/03/17 20:32 0.4 MG Ursodiol (Actigall Cap) 300 mg BID PO 08/01/17 21:00 08/31/17 20:59 08/04/17 08:00 300 MG Venlafaxine HCl (effeXOR EXTENDED REL CAP) 75 mg QAM PO 08/02/17 09:00 09/01/17 08:59 08/04/17 08:01 75 MG Warfarin Sodium (Coumadin Tab) 2 mg DAILY@1600 PO 08/02/17 16:00 09/01/17 15:59 08/03/17 17:08 2 MG Pantoprazole Sodium (Protonix Tab) 40 mg DAILY PO 08/02/17 09:00 09/01/17 08:59 08/04/17 08:01 40 MG Polyethylene (Miralax Powder Packet) 17 gm DAILY PO 08/02/17 09:00 09/01/17 08:59 08/04/17 08:01 17 GM Potassium Chloride (Klor-Con M10) 10 meq DAILY PO 08/02/17 09:00 09/01/17 08:59 08/04/17 08:01 10 MEQ Miscellaneous Information (Consult Glycemic Management Pharmacy) 1 ea UD PRN N/A 08/01/17 19:12 08/31/17 19:11 Glucose (Glucose 40% Gel) 15-30 GRAMS 15 GRAMS... UD PRN PO 08/01/17 19:30 08/31/17 19:29 Glucose (Glucose Chew Tab) 4-8 Tablets 4 Tabl... UD PRN PO 08/01/17 19:30 08/31/17 19:29 Dextrose (Dextrose 50% 50ML Syringe) 25-50ML OF 50% DW IV FOR... UD PRN IV 08/01/17 19:30 08/31/17 19:29 Glucagon (Glucagon Inj) 1 mg UD PRN SQ 08/01/17 19:30 08/31/17 19:29 Furosemide 80 mg/ Syringe 8 ml @ 4 mls/min TID IV 08/02/17 09:00 08/31/17 20:59 08/04/17 09:35 4 MLS/MIN Insulin Detemir (Levemir Flexpen/ FlexTouch) 10 units DAILY@0900 SC 08/03/17 09:00 09/02/17 08:59 08/04/17 08:14 8 UNITS Insulin Detemir (Levemir Flexpen/ FlexTouch) 5 units HS SC 08/02/17 21:00 09/01/17 20:59 08/03/17 20:38 5 UNITS Acetaminophen/ Codeine Phosphate (Tylenol w/ Codeine #3 Tab) 1 tab Q6H PRN PO 08/02/17 17:12 09/01/17 17:11 08/04/17 03:36 1 TAB Fentanyl (Duragesic Patch) 25 mcg Q3D@1930 TD 08/02/17 19:30 08/16/17 19:29 08/02/17 22:27 25 MCG Miscellaneous (Fentanyl Patch Remove & Waste) 1 ea Q3D@1929 N/A 08/05/17 19:29 09/04/17 19:28 Miscellaneous Information (Check Fentanyl Patch Placement) 1 ea QS N/A 08/03/17 00:00 09/02/17 00:00 08/04/17 08:14 1 EA Heparin Sodium (Porcine) (Heparin 10 Unit/ ml 5 ml Flush) 5 ml PRN PRN FLUSH 08/04/17 00:15 09/03/17 00:14 08/04/17 09:35 5 ML Iron Sucrose 100 mg/Sodium Chloride 105 ml @ 420 mls/hr DAILY IV 08/04/17 09:45 08/06/17 08:14 UNV Last 24 Hours Test 08/03/17 11:06 08/03/17 16:20 08/03/17 20:37 08/04/17 06:39 Bedside Glucose 178 mg/dl 101 mg/dl 103 mg/dl White Blood Count 5.22 K/uL Red Blood Count 3.11 M/uL Hemoglobin 7.9 g/dL Hematocrit 26.6 % Mean Corpuscular Volume 85.5 fL Mean Corpuscular Hemoglobin 25.4 pg Mean Corpuscular Hemoglobin Concent 29.7 g/dl RDW Standard Deviation 64.0 fL RDW Coefficient of Variation 20.3 % Platelet Count 211 K/uL Mean Platelet Volume 10.2 fL Prothrombin Time 33.4 SECONDS Prothromb Time International Ratio 3.3 Sodium Level 142 mmol/L Potassium Level 3.3 mmol/L Chloride Level 111 mmol/L Carbon Dioxide Level 22 mmol/L Anion Gap 9.0 mmol/L Blood Urea Nitrogen 76 mg/dl Creatinine 3.13 mg/dl Est Creatinine Clear Calc Drug Dose 44.8 ml/min Estimated GFR () 24.3 Estimated GFR (Non- 20.9 BUN/Creatinine Ratio 24.2 Random Glucose 88 mg/dl Calcium Level 7.7 mg/dl Test 08/04/17 07:59 Bedside Glucose 98 mg/dl Assessment & Plan volume overload-continue the lasix 80 iv tid while an inpatient. pt would benefit from continued iv diuretics however would like to go home today. will discuss further with the hospitalist. anemia-iron deficiency-started pt on venofer 100mg iv daily for next three days. will likely only get one dose given than he wants to leave today. would send back to [facility] with lasix 160mg po bid and recheck bmp again next week. ok with creatinine in the low 3s since likely new baseline.
[2017-08-04] MEDS: IRON SUCROSE INJ 100 MG in SODIUM CHLORIDE 0.9% 100ML 100 ML IV SCH (11:24)
--- NOTE | 2017-08-04 13:05 | Pharmacy Progress Note ---
Pharmacy Glycemic Short Note 2 Date of Service Aug 04, 2017. OUTPATIENT ANTIDIABETIC REGIMEN: * Levemir 15 units SQ BID * Novolog SSI ACHS * HbA1c: 7.5% (07/20/17) ASSESSMENT: * Mr Perez is a 56yo diabetic male admitted with cellulitis and volume overload. He is well known to the pharmacy glycemic management service from past admissions. * BSGs have been well-controlled thus far during admission. Pt has received 26 units/day for the past two days, with BSGs ranging from 85-178mg/dL. * No changes required at this time. PLAN FOR INPATIENT GLYCEMIC CONTROL: * Basal insulin * Lantus 10 units SQ qAM, 5 units SQ qPM * Bolus insulin * NovoLog per scale ACHS or Q6hrs while NPO * Goal Range: Low 110 mg/dL - High 140 mg/dL * Correction Factor: 25 mg/dL/unit * Nutritional / Prandial insulin per carb ratio of 1 unit per 8 grams CHO consumed PLAN FOR DISCHARGE: * Current A1c (7.5%) indicates sub-optimal outpatient glycemic control. * May consider adjusting insulin regimen on discharge, in order to provide additional coverage.
[2017-08-04 15:25] VITALS: BP 124/69; PULSE 66; TEMP 36.4; O2SAT 96
[2017-08-04 16:00] VITALS: O2SAT 96
[2017-08-04] MEDS: WARFARIN SOD 2 MG TAB PO SCH (16:49)
--- NOTE | 2017-08-04 18:25 | Progress Note ---
Medicine Progress Note Date & Time of Visit: Aug 04, 2017 at 12:16. Subjective Pt was seen and examined Sitting in bed with no distress Pt said that he feels fine he would like to go back to SNF today [facility] said that they cannot take him until tomorrow Denies any chest pain, palpitation, dizziness and SOB Objective Last 8 Hrs Date Time Temp Pulse Resp B/P (MAP) Pulse Ox O2 Delivery O2 Flow Rate FiO2 08/04/17 16:00 96 Room Air 08/04/17 15:25 36.4 66 16 124/69 (87) 96 Room Air 08/04/17 11:00 Room Air Physical Exam: General- No acute distress Head- atraumatic Eyes- PERRL, EOMI ENT- oropharynx clear Neck- supple, no JVD Lungs- No wheezing Heart- regular rhythm Abdomen- normal bowel sounds, Nontender Extremities- +B/L edema, leg wrap with dressing Neuro- alert, oriented x 3; PERRL, EOMI; no facial palsy Skin- warm & dry Laboratory Results: Last 24 Hours Test 08/03/17 20:37 08/04/17 06:39 08/04/17 07:59 08/04/17 11:07 Bedside Glucose 103 mg/dl 98 mg/dl 112 mg/dl White Blood Count 5.22 K/uL Red Blood Count 3.11 M/uL Hemoglobin 7.9 g/dL Hematocrit 26.6 % Mean Corpuscular Volume 85.5 fL Mean Corpuscular Hemoglobin 25.4 pg Mean Corpuscular Hemoglobin Concent 29.7 g/dl RDW Standard Deviation 64.0 fL RDW Coefficient of Variation 20.3 % Platelet Count 211 K/uL Mean Platelet Volume 10.2 fL Prothrombin Time 33.4 SECONDS Prothromb Time International Ratio 3.3 Sodium Level 142 mmol/L Potassium Level 3.3 mmol/L Chloride Level 111 mmol/L Carbon Dioxide Level 22 mmol/L Anion Gap 9.0 mmol/L Blood Urea Nitrogen 76 mg/dl Creatinine 3.13 mg/dl Est Creatinine Clear Calc Drug Dose 44.8 ml/min Estimated GFR () 24.3 Estimated GFR (Non- 20.9 BUN/Creatinine Ratio 24.2 Random Glucose 88 mg/dl Calcium Level 7.7 mg/dl Test 08/04/17 16:06 Bedside Glucose 113 mg/dl Assessment & Plan Bilateral lower extremity swelling: Multifactorial with h/o lymphedema, CHF, CKD, DM type 2 Refused trujillo to monitor I/O On 1L fluid restriction Continue lasix 80mg TID Continue monitor renal function Clinically improved Nephrology on board If decides to leave tomorrow, will change Lasix to 160mg BID as per Nephrology will need to monitor BMP B/L LE wound Multiple hospital admission Grew multiple resistant organisms in the past Continue daily wound care Was discharged on IV Vanco and Azactam in the last admission Wound has been improved since last admission stable Multiple pressure ulcers in sacrum/ B/L LE has been stable Continue daily wound care Chronic Anemia Hb 7.9 On IV venofer Continue monitor CBC Will transfuse if hgb drops below 7 Chronic systolic/diastolic HF Asymptomatic. Last Echo in Mar 2017 showed EF of 55-60%, mild concentric LVH, left atrium severely dilated Continue IV Lasix 80mg TID Continue 1L fluid restriction continue monitor BMP twice weekly Continue Daily I/O HYPOKALEMIA K replaced Monitor BMP DM II: Hgb a1c of 7.7 in May 2017 On Levemir subq Continue Insulin coverage Continue monitor BS Chronic A Fib: rate is controlled INR 3.3 Coumadin 2mg Continue monitor lNR BART on CKD Stage IV: Creatine on admission 3.19 Baseline GFR ~30, Cr 2.4 Creatine 3.13 today Seems that is his new baseline Mostly creatine will worsening due to IV lasix If creatine worsening, will add albumin with the lasix as per nephro Consult nephrology Continue monitor BMP Stable H/o R DVT/PE: S/p IVC filter On Coumadin INR 3.3 HTN: Stable Continue home meds Hypothyroidism: Levothyroxine increased to 37.5 Will check TSH DVT px on Coumadin INR 3.3 DISPOSITION Might want to discharge tomorrow to [facility] Consultants: Nephro Current Inpatient Medications: Current Inpatient Medications Medications (Trade) Dose Ordered Sig/Miguel Route Start Time Stop Time Status Last Admin Dose Admin Albuterol (Ventolin Hfa Inhaler) 2 puffs Q6H PRN INH 08/01/17 19:00 08/31/17 18:59 Atorvastatin Calcium (Lipitor Tab) 80 mg HS PO 08/01/17 21:00 08/31/17 20:59 08/03/17 20:33 80 MG Carvedilol (Coreg Tab) 25 mg BID PO 08/01/17 21:00 08/31/17 20:59 08/04/17 08:01 25 MG Hydroxyzine HCl (Vistaril Tab) 25 mg QID PRN PO 08/01/17 19:00 08/31/17 18:59 08/04/17 08:02 25 MG Insulin Aspart (novoLOG ASPART) ACHS SC 08/01/17 21:00 08/31/17 20:59 08/04/17 17:47 3 UNITS Lactobacillus Acidophilus (Floranex Tab) 2 tab BIDM PO 08/01/17 21:00 08/31/17 20:59 08/04/17 17:40 2 TAB Levothyroxine Sodium (Synthroid Tab) 37.5 mcg DAILYBB PO 08/02/17 06:00 09/01/17 05:59 08/04/17 05:49 37.5 MCG Magnesium Hydroxide (Milk Of Magnesia Susp) 30 ml UD PRN PO 08/01/17 19:00 08/31/17 18:59 Multivitamins/ Minerals (Multivitamin W/ Minerals Tab) 1 tab QAM PO 08/02/17 09:00 09/01/17 08:59 08/04/17 08:01 1 TAB Pregabalin (Lyrica Cap) 75 mg BID PO 08/01/17 21:00 08/31/17 20:59 08/04/17 08:01 75 MG Tamsulosin HCl (Flomax Cap) 0.4 mg HS PO 08/01/17 21:00 08/31/17 20:59 08/03/17 20:32 0.4 MG Ursodiol (Actigall Cap) 300 mg BID PO 08/01/17 21:00 08/31/17 20:59 08/04/17 08:00 300 MG Venlafaxine HCl (effeXOR EXTENDED REL CAP) 75 mg QAM PO 08/02/17 09:00 09/01/17 08:59 08/04/17 08:01 75 MG Warfarin Sodium (Coumadin Tab) 2 mg DAILY@1600 PO 08/02/17 16:00 09/01/17 15:59 08/04/17 16:49 2 MG Pantoprazole Sodium (Protonix Tab) 40 mg DAILY PO 08/02/17 09:00 09/01/17 08:59 08/04/17 08:01 40 MG Polyethylene (Miralax Powder Packet) 17 gm DAILY PO 08/02/17 09:00 09/01/17 08:59 08/04/17 08:01 17 GM Potassium Chloride (Klor-Con M10) 10 meq DAILY PO 08/02/17 09:00 09/01/17 08:59 08/04/17 08:01 10 MEQ Miscellaneous Information (Consult Glycemic Management Pharmacy) 1 ea UD PRN N/A 08/01/17 19:12 08/31/17 19:11 Glucose (Glucose 40% Gel) 15-30 GRAMS 15 GRAMS... UD PRN PO 08/01/17 19:30 08/31/17 19:29 Glucose (Glucose Chew Tab) 4-8 Tablets 4 Tabl... UD PRN PO 08/01/17 19:30 08/31/17 19:29 Dextrose (Dextrose 50% 50ML Syringe) 25-50ML OF 50% DW IV FOR... UD PRN IV 08/01/17 19:30 08/31/17 19:29 Glucagon (Glucagon Inj) 1 mg UD PRN SQ 08/01/17 19:30 08/31/17 19:29 Furosemide 80 mg/ Syringe 8 ml @ 4 mls/min TID IV 08/02/17 09:00 08/31/17 20:59 08/04/17 14:06 4 MLS/MIN Insulin Detemir (Levemir Flexpen/ FlexTouch) 10 units DAILY@0900 SC 08/03/17 09:00 09/02/17 08:59 08/04/17 08:14 8 UNITS Insulin Detemir (Levemir Flexpen/ FlexTouch) 5 units HS SC 08/02/17 21:00 09/01/17 20:59 08/03/17 20:38 5 UNITS Acetaminophen/ Codeine Phosphate (Tylenol w/ Codeine #3 Tab) 1 tab Q6H PRN PO 08/02/17 17:12 09/01/17 17:11 08/04/17 03:36 1 TAB Fentanyl (Duragesic Patch) 25 mcg Q3D@1930 TD 08/02/17 19:30 08/16/17 19:29 08/02/17 22:27 25 MCG Miscellaneous (Fentanyl Patch Remove & Waste) 1 ea Q3D@1929 N/A 08/05/17 19:29 09/04/17 19:28 Miscellaneous Information (Check Fentanyl Patch Placement) 1 ea QS N/A 08/03/17 00:00 09/02/17 00:00 08/04/17 16:00 1 EA Heparin Sodium (Porcine) (Heparin 10 Unit/ ml 5 ml Flush) 5 ml PRN PRN FLUSH 08/04/17 00:15 09/03/17 00:14 08/04/17 14:06 5 ML Iron Sucrose 100 mg/Sodium Chloride 105 ml @ 420 mls/hr Q24H IV 08/04/17 11:00 08/06/17 11:14 08/04/17 11:24 420 MLS/HR
[2017-08-04] MEDS: ATORVASTATIN 40 MG TAB PO SCH (20:42)
[2017-08-04] MEDS: TAMSULOSIN HCL 0.4 MG CAP PO SCH (20:42)
[2017-08-04 23:23] VITALS: BP 156/82; PULSE 63; TEMP 36.8; O2SAT 96
[2017-08-05] MEDS: CHECK FENTANYL PATCH PLACEMENT SCH ×2 (00:26→08:57)
[2017-08-05 05:58] LABS: HEMATOCRIT 26.3 % (42-52); MEAN CELL VOLUME 85.9 fL (80-100); MEAN CORPUSCULAR HEMOGLOBIN 25.8 pg (25-34); MEAN PLATELET VOLUME 9.8 fL (7.4-10.4); PLATELET COUNT 203 K/uL (130-400); RED BLOOD COUNT 3.06 M/uL (4.7-6.1); WHITE BLOOD COUNT 5.46 K/uL (4.8-10.8)
[2017-08-05] MEDS: LEVOTHYROXINE 75 MCG TAB PO SCH (06:17)
[2017-08-05 06:25] LABS: BUN/CREATININE RATIO 21.2 (10-20); CALCIUM 7.8 mg/dl (8.5-10.1); CREATININE 3.07 mg/dl (0.60-1.40); POTASSIUM 3.3 mmol/L (3.5-5.1)
[2017-08-05 07:25] VITALS: BP 174/104; PULSE 64; TEMP 36.8; O2SAT 96
[2017-08-05] MEDS ORDERED: POTASSIUM CHLORIDE 20 MEQ TABCR PO ONE (08:45)
[2017-08-05] MEDS: CARVEDILOL 25 MG TAB PO SCH (09:00)
[2017-08-05] MEDS: URSODIOL 300 MG CAP PO SCH (09:00)
[2017-08-05] MEDS: LACTOBACILLUS ACIDOPHILUS (FLORANEX) TAB PO SCH (09:00)
[2017-08-05] MEDS: VENLAFAXINE HCL XR 75 MG CAPXR PO SCH (09:00)
[2017-08-05] MEDS: FUROSEMIDE INJ 80 MG in SYRINGE 0 ML IV SCH ×2 (09:00→13:43)
[2017-08-05] MEDS: POTASSIUM CHLORIDE 10 MEQ TABCR PO SCH (09:00)
[2017-08-05] MEDS: POLYETHYLENE (MIRALAX) 17 GM PACK PO SCH (09:01)
[2017-08-05] MEDS: PANTOprazole SOD 40 MG TAB PO SCH (09:01)
[2017-08-05] MEDS: hydrOXYzine HCL 25 MG TAB PO PRN (09:01)
[2017-08-05] MEDS: PREGABALIN 75 MG CAP PO SCH (09:01)
[2017-08-05] MEDS: CEROVITE ADV FORMULA TAB PO SCH (09:01)
[2017-08-05] MEDS: INSULIN ASPART 100 UNITS/ML 3 ML PEN SC SCH ×2 (09:03→12:36)
[2017-08-05] MEDS: INSULIN DETEMIR FLEXPEN/FLEX TOUCH 100 UNITS/ML 3ML SC SCH (09:04)
[2017-08-05] MEDS: ACETAMINOPHEN/CODEINE 300/30MG TAB PO PRN (09:15)
--- NOTE | 2017-08-05 10:33 | Pharmacy Progress Note ---
Glycemic Control Progress Note Date of Service Aug 05, 2017. Scope Glycemic Pharmacist consulted for glycemic control to write orders per [facility] inpatient glycemic control protocol. Objective Accuchecks BSG (last 24hrs): Test 08/04/17 11:07 08/04/17 16:06 08/04/17 20:27 08/05/17 05:19 Bedside Glucose 112 mg/dl (70-99) 113 mg/dl (70-99) 123 mg/dl (70-99) Random Glucose 97 mg/dl (70-99) Test 08/05/17 07:45 Bedside Glucose 96 mg/dl (70-99) HbA1c: 7.5% 07/20/17 Recent Pertinent Medications The patient is currently receiving: * Basal insulin: Levemir SQ BID: 8-10 units in the AM (8 units if 140 or less, 10 units if greater than 140) + 5 units in the PM * Correctional Insulin: Novolog Correction per scale ACHS Goal Range: Low 110 mg/dL - High 140 mg/dL Correction Factor: 25 mg/dL/unit * Prandial insulin: Per carb ratio of 1 unit per 8 grams CHO consumed * Oral Agents: None currently Outpatient Anti-Diabetic Meds * Levemir 15 units SQ BID * Novolog SSI ACHS * HbA1c: 7.5% (07/20/17) Assessment & Plan ASSESSMENT: 08/05/17 * BSGs have ranged 88-123 over the last 24 hours * He has been requiring 26-28 units per day while tolerating a diet, lower doses than his outpatient regimen provided * Fasting BSG 96 this AM w/ 13 units Levemir on board - will continue the same doses for now * Post-prandial BSGs well controlled the last 2 days with current Novolog order PLAN FOR INPATIENT GLYCEMIC CONTROL: * Continuing Levemir SQ BID: 8 units in the AM + 5 units in the PM * Continuing correction factor of 25 mg/dl/unit * Continuing carb ratio of 1 unit per 8 grams CHO consumed * Continuing goal range Low 110 mg/dL - High 140 mg/dL * Please note that the plan above was derived based on current level of insulin resistance and hospital stress. These recommendations are appropriate for inpatient admission only. Plan of care upon discharge will need to be reassessed to avoid potential outpatient hypo/hyperglycemia. Thank you.
[2017-08-05] MEDS: IRON SUCROSE INJ 100 MG in SODIUM CHLORIDE 0.9% 100ML 100 ML IV SCH (10:59)
--- NOTE | 2017-08-05 12:54 | Progress Note ---
Medicine Progress Note Date & Time of Visit: Aug 05, 2017 at 12:53. Subjective Pt was seen and examined Sitting in bed with no distress Pt said that he feels fine He wants to go back to [facility] today Denies any chest pain, palpitation, dizziness and sob Objective Last 8 Hrs Date Time Temp Pulse Resp B/P (MAP) Pulse Ox O2 Delivery O2 Flow Rate FiO2 08/05/17 09:55 Room Air 08/05/17 07:25 36.8 64 18 174/104 (127) 96 Room Air Physical Exam: General- No acute distress Head- atraumatic Eyes- PERRL, EOMI ENT- oropharynx clear Neck- supple, no JVD Lungs- No wheezing Heart- regular rhythm Abdomen- normal bowel sounds, Nontender Extremities- +B/L edema, leg wrap with dressing Neuro- alert, oriented x 3; PERRL, EOMI; no facial palsy Skin- warm & dry Laboratory Results: Last 24 Hours Test 08/04/17 16:06 08/04/17 20:27 08/05/17 05:19 08/05/17 07:45 Bedside Glucose 113 mg/dl 123 mg/dl 96 mg/dl White Blood Count 5.46 K/uL Red Blood Count 3.06 M/uL Hemoglobin 7.9 g/dL Hematocrit 26.3 % Mean Corpuscular Volume 85.9 fL Mean Corpuscular Hemoglobin 25.8 pg Mean Corpuscular Hemoglobin Concent 30.0 g/dl RDW Standard Deviation 64.0 fL RDW Coefficient of Variation 20.7 % Platelet Count 203 K/uL Mean Platelet Volume 9.8 fL Sodium Level 143 mmol/L Potassium Level 3.3 mmol/L Chloride Level 111 mmol/L Carbon Dioxide Level 22 mmol/L Anion Gap 10.0 mmol/L Blood Urea Nitrogen 65 mg/dl Creatinine 3.07 mg/dl Est Creatinine Clear Calc Drug Dose 45.6 ml/min Estimated GFR () 24.8 Estimated GFR (Non- 21.4 BUN/Creatinine Ratio 21.2 Random Glucose 97 mg/dl Calcium Level 7.8 mg/dl Test 08/05/17 11:22 Bedside Glucose 107 mg/dl Assessment & Plan Bilateral lower extremity swelling: Multifactorial with h/o lymphedema, CHF, CKD, DM type 2 Refused trujillo to monitor I/O On 1L fluid restriction Continue lasix 80mg TID Continue monitor renal function Clinically improved Nephrology on board If decides to leave tomorrow, will change Lasix to 160mg BID as per Nephrology will need to monitor BMP B/L LE wound Multiple hospital admission Grew multiple resistant organisms in the past Continue daily wound care Was discharged on IV Vanco and Azactam in the last admission Wound has been improved since last admission stable Multiple pressure ulcers in sacrum/ B/L LE has been stable Continue daily wound care Chronic Anemia Hb 7.9 On IV venofer Continue monitor CBC Will transfuse if hgb drops below 7 Chronic systolic/diastolic HF Asymptomatic. Last Echo in Mar 2017 showed EF of 55-60%, mild concentric LVH, left atrium severely dilated Continue IV Lasix 80mg TID Continue 1L fluid restriction continue monitor BMP twice weekly will discharge on oral lasix 160mg BID Continue Daily I/O HYPOKALEMIA K replaced Monitor BMP DM II: Hgb a1c of 7.7 in May 2017 On Levemir subq Continue Insulin coverage Continue monitor BS Chronic A Fib: rate is controlled INR 3.3 Coumadin 2mg Continue monitor lNR BART on CKD Stage IV: Creatine on admission 3.19 Baseline GFR ~30, Cr 2.4 Creatine 3.13 today Seems that is his new baseline Mostly creatine will worsening due to IV lasix If creatine worsening, will add albumin with the lasix as per nephro Consult nephrology Continue monitor BMP Stable H/o R DVT/PE: S/p IVC filter On Coumadin INR 3.3 HTN: Stable Continue home meds Hypothyroidism: Levothyroxine increased to 37.5 Will check TSH DVT px on Coumadin INR 3.3 DISPOSITION Will discharge today to [facility] Consultants: Nephro Current Inpatient Medications: Current Inpatient Medications Medications (Trade) Dose Ordered Sig/Miguel Route Start Time Stop Time Status Last Admin Dose Admin Albuterol (Ventolin Hfa Inhaler) 2 puffs Q6H PRN INH 08/01/17 19:00 08/31/17 18:59 Atorvastatin Calcium (Lipitor Tab) 80 mg HS PO 08/01/17 21:00 08/31/17 20:59 08/04/17 20:42 80 MG Carvedilol (Coreg Tab) 25 mg BID PO 08/01/17 21:00 08/31/17 20:59 08/05/17 09:00 25 MG Hydroxyzine HCl (Vistaril Tab) 25 mg QID PRN PO 08/01/17 19:00 08/31/17 18:59 08/05/17 09:01 25 MG Insulin Aspart (novoLOG ASPART) ACHS SC 08/01/17 21:00 08/31/17 20:59 08/05/17 12:36 5 UNITS Lactobacillus Acidophilus (Floranex Tab) 2 tab BIDM PO 08/01/17 21:00 08/31/17 20:59 08/05/17 09:00 2 TAB Levothyroxine Sodium (Synthroid Tab) 37.5 mcg DAILYBB PO 08/02/17 06:00 09/01/17 05:59 08/05/17 06:17 37.5 MCG Magnesium Hydroxide (Milk Of Magnesia Susp) 30 ml UD PRN PO 08/01/17 19:00 08/31/17 18:59 Multivitamins/ Minerals (Multivitamin W/ Minerals Tab) 1 tab QAM PO 08/02/17 09:00 09/01/17 08:59 08/05/17 09:01 1 TAB Pregabalin (Lyrica Cap) 75 mg BID PO 08/01/17 21:00 08/31/17 20:59 08/05/17 09:01 75 MG Tamsulosin HCl (Flomax Cap) 0.4 mg HS PO 08/01/17 21:00 08/31/17 20:59 08/04/17 20:42 0.4 MG Ursodiol (Actigall Cap) 300 mg BID PO 08/01/17 21:00 08/31/17 20:59 08/05/17 09:00 300 MG Venlafaxine HCl (effeXOR EXTENDED REL CAP) 75 mg QAM PO 08/02/17 09:00 09/01/17 08:59 08/05/17 09:00 75 MG Warfarin Sodium (Coumadin Tab) 2 mg DAILY@1600 PO 08/02/17 16:00 09/01/17 15:59 08/04/17 16:49 2 MG Pantoprazole Sodium (Protonix Tab) 40 mg DAILY PO 08/02/17 09:00 09/01/17 08:59 08/05/17 09:01 40 MG Polyethylene (Miralax Powder Packet) 17 gm DAILY PO 08/02/17 09:00 09/01/17 08:59 08/05/17 09:01 17 GM Potassium Chloride (Klor-Con M10) 10 meq DAILY PO 08/02/17 09:00 09/01/17 08:59 08/05/17 09:00 10 MEQ Miscellaneous Information (Consult Glycemic Management Pharmacy) 1 ea UD PRN N/A 08/01/17 19:12 08/31/17 19:11 Glucose (Glucose 40% Gel) 15-30 GRAMS 15 GRAMS... UD PRN PO 08/01/17 19:30 08/31/17 19:29 Glucose (Glucose Chew Tab) 4-8 Tablets 4 Tabl... UD PRN PO 08/01/17 19:30 08/31/17 19:29 Dextrose (Dextrose 50% 50ML Syringe) 25-50ML OF 50% DW IV FOR... UD PRN IV 08/01/17 19:30 08/31/17 19:29 Glucagon (Glucagon Inj) 1 mg UD PRN SQ 08/01/17 19:30 08/31/17 19:29 Furosemide 80 mg/ Syringe 8 ml @ 4 mls/min TID IV 08/02/17 09:00 08/31/17 20:59 08/05/17 09:00 4 MLS/MIN Insulin Detemir (Levemir Flexpen/ FlexTouch) 5 units HS SC 08/02/17 21:00 09/01/17 20:59 08/04/17 20:42 5 UNITS Acetaminophen/ Codeine Phosphate (Tylenol w/ Codeine #3 Tab) 1 tab Q6H PRN PO 08/02/17 17:12 09/01/17 17:11 08/05/17 09:15 1 TAB Fentanyl (Duragesic Patch) 25 mcg Q3D@1930 TD 08/02/17 19:30 08/16/17 19:29 08/02/17 22:27 25 MCG Miscellaneous (Fentanyl Patch Remove & Waste) 1 ea Q3D@1929 N/A 08/05/17 19:29 09/04/17 19:28 Miscellaneous Information (Check Fentanyl Patch Placement) 1 ea QS N/A 08/03/17 00:00 09/02/17 00:00 08/05/17 08:57 1 EA Heparin Sodium (Porcine) (Heparin 10 Unit/ ml 5 ml Flush) 5 ml PRN PRN FLUSH 08/04/17 00:15 09/03/17 00:14 08/05/17 12:36 5 ML Iron Sucrose 100 mg/Sodium Chloride 105 ml @ 420 mls/hr Q24H IV 08/04/17 11:00 08/06/17 11:14 08/05/17 10:59 420 MLS/HR Insulin Detemir (Levemir Flexpen/ FlexTouch) 8 units DAILY@0900 SC 08/06/17 09:00 09/05/17 08:59
[2017-08-05 12:56] VITALS: BP 174/104; PULSE 64; TEMP 36.8; O2SAT 96
[2017-08-05] MEDS ORDERED: LSX80 PO (13:21)
--- NOTE | 2017-08-05 13:28 | Discharge Instructions ---
Discharge Instructions Date of Service Aug 05, 2017. Admission Reason for Admission: Cellulitis, Volume Overload, Lower Extremity Edema Discharge Discharge Diagnosis / Problem: B/L LE edema, Chronic systolic/diastolic HF, B/ L LE wound Discharge Goals Goal(s): Decrease discomfort, Improve function, Improve disease control Activity Recommendations Activity Limitations: resume your previous activity (as tolerated) . Instructions / Follow-Up Instructions / Follow-Up Follow up with your provider at [facility] Lasix increased to 160mg twice daily On Fluid restriction to 1L daily Monitor BMP twice weekly to check electrolytes and renal function Continue Coumadin Check INR tomorrow Fall precaution Continue physical therapy and Occupational therapy Continue daily wound care Monitor blood sugar and titrate insulin as needed Current Hospital Diet Patient's current hospital diet: Low Sodium Diet (2gm Na), AHA Diet (Heart Healthy), Diabetes Type 2 Diet Discharge Diet Recommended Diet: AHA Diet (Heart Healthy), Low Sodium Diet (2gm Na), Diabetes Type 2 Diet Pending Studies Studies pending at discharge: no Laboratory Results Hemoglobin A1c Test 07/20/17 04:15 Range/Units Estimated Average Glucose 169 mg/dl Hemoglobin A1c 7.5 H 4.5-5.6 % Lipid Panel Test 06/22/17 05:15 Range/Units Triglycerides Level 118 0-150 mg/dl Cholesterol Level 60 0-200 mg/dl HDL Cholesterol 21 mg/dl Cholesterol/HDL Ratio 2.9 LDL Cholesterol, Calculated 15 mg/dl Medical Emergencies . Who to Call and When: Medical Emergencies: If at any time you feel your situation is an emergency, please call 911 immediately. . Non-Emergent Contact Non-Emergency issues call your: Primary Care Provider Call Non-Emergent contact if: you have a fever, you have any medication questions . . "Provider Documentation" section prepared by Genesis Salazar. . VTE Core Measure Inpt VTE Proph given/why not?: Warfarin (Coumadin)
[2017-08-05] MEDS ORDERED: LVMI SQ (14:02)
[2017-08-05] MEDS ORDERED: FENTANYL PATCH REMOVE & WASTE SCH ×2 (17:15→19:29)
[2017-08-06] MEDS ORDERED: INSULIN DETEMIR FLEXPEN/FLEX TOUCH 100 UNITS/ML 3ML SC SCH (09:00)
--- NOTE | 2017-08-06 18:10 | Discharge Summary ---
Discharge Summary Date of Service Aug 06, 2017. Discharge Summary Admission Date: Aug 01, 2017 at 17:17 Discharge Date: Aug 05, 2017 Discharge Disposition: half-way facility Principal Diagnosis: B/L LE edema Secondary Diagnoses/Problems: Chronic systolic/diastolic HF B/L LE wound BART on CKD STAGE 4 Multiple pressure ulcers in sacrum/ B/L LE Chronic anemia HTN AFIB H/o R DVT/PE Hypokalemia Consultations: Nephro Medication Reconciliation Changed Medications: Furosemide (Furosemide) 80 Mg Tab 160 MG PO BID17 for 30 Days, TAB 1 Refill (Changed from: 120 MG) Insulin Detemir (Levemir) 100 Units/Ml Inj 10 UNITS SQ BID, #1 1 Refill (Changed from: 15 UNITS) Continued Medications: Acetaminophen (Tylenol) 500 Mg Tab 500 MG PO Q4 PRN for Pain or Fever use for mild pain 1-3 or fever >101f max 3gm apap/24hr Acetaminophen/Codeine (Tylenol W/Codeine #3) 300 Mg/30 Mg Tab 1 TAB PO Q6H PRN for Pain, TAB Albuterol Hfa (Ventolin Hfa) 200 Puffs/84391 Mcg Aers 2 PUFFS INH Q6H PRN for Wheezing Atorvastatin (Lipitor) 40 Mg Tab 80 MG PO HS, TAB UES 40MG TABS FOR 80MG DOSE Bisacodyl (Dulcolax) 10 Mg Sup 1 SUPP TX Q24H PRN for no bm past 2 days, SUP Carvedilol (Coreg) 25 Mg Tab 25 MG PO BID Dextrose (Diabetic Use) (Insta-Glucose) 77.4 % Gel 1 APPLN PO UD PRN for HYPOGLYCEMIA PROTOCOL Esomeprazole Magnesium (Nexium) 40 Mg Capcr 40 MG PO DAILY, CAP Fentanyl (Fentanyl) 25 Mcg Tdsy 25 MCG TD Q72H, #10 Glucagon (Glucagon Emergency Kit) 1 Mg Kit Hydroxyzine Hcl (Atarax) 25 Mg Tab 25 MG PO QID PRN for Itching, TAB Insulin Aspart (Novolog Flexpen) 100 Units/Ml Inj 0 UNITS SC ACHS, #1 2 Refills INSULIN NOVOLOG SLIDING SCALE BLOOD SUGARS GOAL RANGE 110-140MG/DL CORRCTION FACTOR = 25MG/DL/UNIT CARB RATIO = 1 UNIT PER 10 GRAM CHO CONSUMED Lactobacillus Acidophilus (Lactinex) Tab 2 TAB PO BID for 20 Days, TAB Levothyroxine Sodium (Synthroid) 25 Mcg Tab 37.5 MCG PO DAILY for 30 Days, TAB Loratadine (Claritin) 10 Mg Tab 10 MG PO DAILY, TAB Magnesium Hydroxide (Milk Of Magnesia) 30 Ml Susp 30 ML PO UD PRN for Constipation, ML Melatonin (Melatonin) 5 Mg Tab 10 MG PO HS Multiple Vitamins W/ Minerals (Theragran-M) 1 Tab Tab 1 TAB PO QAM Nitroglycerin (Nitrostat) 0.4 Mg Tab 0.4 MG UT UD PRN for Chest Pain Nystatin (Nystop) 45 Appln/15 Gm Powd 1 APPLN EXT DAILY, #1 2 Refills Ondansetron Hcl (Zofran) 4 Mg Tab 4-8 MG PO Q8 PRN for Nausea, TAB Polyethylene Glycol 3350 (Miralax) 1 Pow Pow 17 GM PO DAILY, #255 GM Potassium Chloride (Potassium Chloride Er) 10 Meq Cap 2 CAP PO DAILY for 30 Days, CAP 1 Refill Pregabalin (Lyrica) 75 Mg Cap 75 MG PO BID, CAP Sennosides-Docusate Sodium (Sennalax-S) 1 Tab Tab 2 TABS PO HS Tamsulosin HCl (Tamsulosin HCl) 0.4 Mg Cap 0.4 MG PO HS, #30 CAP 2 Refills Trazodone Hcl (Trazodone) 50 Mg Tab 50 MG PO HS, TAB Ursodiol (Ursodiol) 300 Mg Cap 300 MG PO BID Venlafaxine Hcl (Effexor) 75 Mg Tab 75 MG PO QAM, TAB Warfarin Sod (Coumadin) 2 Mg Tab 2 MG PO DAILY for 30 Days Admission Information HPI (per Admitting provider): This is a 56yo M with a PMH of HTN, DM II, h/o chronic R DVT, 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 Patient is a direct admission from Dr. Tucker. This is the patient's fifth admission since March 2017 for worsening BLE edema Patient was last discharged from [facility] on 06/30/17 after hospitalization primarily for bilateral lower extremity edema requiring IV diuresis Patient has multiple co-morbid conditions including persistent infections vs colonizations of lower extremity superficial lymphatic drainage vs serosanguineous fluids from blisters or ulcers. Because patient has had cardiac defibrillator, there is always concern that his cardiac defibrillator will become infected and patient has on repeated hospitalizations been followed by infectious disease service Patient's diuresis also complicated by acute kidney injury on CKD For these reasons of poor renal function and history of thromboembolism, patient has been on coumadin over other shelter anticoagulation medications Physical Exam (per Admitting): General Appearance: + pertinent finding (lethargic) Head: normocephalic, atraumatic Eyes: normal inspection, EOMI Neck: no JVD, trachea midline Respiratory/Chest: chest non-tender, lungs clear, normal breath sounds, no respiratory distress, no accessory muscle use Cardiovascular: regular rate, rhythm, no JVD, + pertinent finding (3+ bilateral lower extremity edema) Abdomen/GI: normal bowel sounds, non tender, soft Extremities/Musculoskelatal: + pertinent finding (3+ bilateral lower extremity edema) Neurologic/Psych: + pertinent finding (lethargic, drowsy) Skin: + pertinent finding (right leg in guaze dressing) Hospital Course Bilateral lower extremity swelling: Multifactorial with h/o lymphedema, CHF, CKD, DM type 2 Refused trujillo to monitor I/O On 1L fluid restriction Continue lasix 80mg TID Continue monitor renal function Clinically improved Nephrology on board If decides to leave tomorrow, will change Lasix to 160mg BID as per Nephrology will need to monitor BMP B/L LE wound Multiple hospital admission Grew multiple resistant organisms in the past Continue daily wound care Was discharged on IV Vanco and Azactam in the last admission Wound has been improved since last admission stable Multiple pressure ulcers in sacrum/ B/L LE has been stable Continue daily wound care Chronic Anemia Hb 7.9 On IV venofer Continue monitor CBC Will transfuse if hgb drops below 7 Chronic systolic/diastolic HF Asymptomatic. Last Echo in Mar 2017 showed EF of 55-60%, mild concentric LVH, left atrium severely dilated Continue IV Lasix 80mg TID Continue 1L fluid restriction continue monitor BMP twice weekly will discharge on oral lasix 160mg BID Continue Daily I/O HYPOKALEMIA K replaced Monitor BMP DM II: Hgb a1c of 7.7 in May 2017 On Levemir subq Continue Insulin coverage Continue monitor BS Chronic A Fib: rate is controlled INR 3.3 Coumadin 2mg Continue monitor lNR BART on CKD Stage IV: Creatine on admission 3.19 Baseline GFR ~30, Cr 2.4 Creatine 3.13 today Seems that is his new baseline Mostly creatine will worsening due to IV lasix If creatine worsening, will add albumin with the lasix as per nephro Consult nephrology Continue monitor BMP Stable H/o R DVT/PE: S/p IVC filter On Coumadin INR 3.3 HTN: Stable Continue home meds Hypothyroidism: Levothyroxine increased to 37.5 Will check TSH DVT px on Coumadin INR 3.3 DISPOSITION Will discharge today to [facility] Total time spent on discharge = 35 minutes This includes examination of the patient, discharge planning, medication reconciliation, and communication with other providers. Discharge Instructions Discharge Instructions Date of Service Aug 05, 2017. Admission Reason for Admission: Cellulitis, Volume Overload, Lower Extremity Edema Discharge Discharge Diagnosis / Problem: B/L LE edema, Chronic systolic/diastolic HF, B/ L LE wound Discharge Goals Goal(s): Decrease discomfort, Improve function, Improve disease control Activity Recommendations Activity Limitations: resume your previous activity (as tolerated) . Instructions / Follow-Up Instructions / Follow-Up Follow up with your provider at [facility] Lasix increased to 160mg twice daily On Fluid restriction to 1L daily Monitor BMP twice weekly to check electrolytes and renal function Continue Coumadin Check INR tomorrow Fall precaution Continue physical therapy and Occupational therapy Continue daily wound care Monitor blood sugar and titrate insulin as needed Current Hospital Diet Patient's current hospital diet: Low Sodium Diet (2gm Na), AHA Diet (Heart Healthy), Diabetes Type 2 Diet Discharge Diet Recommended Diet: AHA Diet (Heart Healthy), Low Sodium Diet (2gm Na), Diabetes Type 2 Diet Pending Studies Studies pending at discharge: no Laboratory Results Hemoglobin A1c Test 07/20/17 04:15 Range/Units Estimated Average Glucose 169 mg/dl Hemoglobin A1c 7.5 H 4.5-5.6 % Lipid Panel Test 06/22/17 05:15 Range/Units Triglycerides Level 118 0-150 mg/dl Cholesterol Level 60 0-200 mg/dl HDL Cholesterol 21 mg/dl Cholesterol/HDL Ratio 2.9 LDL Cholesterol, Calculated 15 mg/dl Medical Emergencies . Who to Call and When: Medical Emergencies: If at any time you feel your situation is an emergency, please call 911 immediately. . Non-Emergent Contact Non-Emergency issues call your: Primary Care Provider Call Non-Emergent contact if: you have a fever, you have any medication questions . . "Provider Documentation" section prepared by Genesis Salazar. . VTE Core Measure Inpt VTE Proph given/why not?: Warfarin (Coumadin) Additional Copies To Roberta Xiao
== END 2017-08-05 14:47 | DRG 948 ==
LOC: C.2T 17:17 → ENRESERV 08-02 14:55 → C.2E 08-02 15:35 → ENRESERV 08-03 18:54 → C.4E 08-03 19:57
PROVIDERS: ADMIT Hospitalist; ATTEND Internal Medicine
DX: R60.0 Localized edema (principal); I50.42 Chronic combined systolic (congestive) and diastolic (congestive) heart failure; N18.4 Chronic kidney disease, stage 4 (severe); Z68.42 Body mass index [BMI] 45.0-49.9, adult; N17.9 Acute kidney failure, unspecified; I25.10 Atherosclerotic heart disease of native coronary artery without angina pectoris; I48.2 Chronic atrial fibrillation; F32.9 Major depressive disorder, single episode, unspecified; E11.9 Type 2 diabetes mellitus without complications; E78.5 Hyperlipidemia, unspecified; E66.01 Morbid (severe) obesity due to excess calories; E87.6 Hypokalemia; E83.51 Hypocalcemia; E03.9 Hypothyroidism, unspecified; Z86.711 Personal history of pulmonary embolism; B95.61 Methicillin susceptible Staphylococcus aureus infection as the cause of diseases classified elsewhere; I73.9 Peripheral vascular disease, unspecified; L03.116 Cellulitis of left lower limb; I82.91 Chronic embolism and thrombosis of unspecified vein

== ENCOUNTER → 2017-08-01 | Outpatient (CLI) | payer OTHER ==
[~2017-08-01] MED LIST changes: +VANC500I IV; +[UNRECOGNIZED DRUG - CODE] IV
[2017-08-01 10:04] LABS: BLOOD UREA NITROGEN 72 mg/dl (7-18); BUN/CREATININE RATIO 22.4 (10-20); CALCIUM 7.2 mg/dl (8.5-10.1); CARBON DIOXIDE 20 mmol/L (21-32); CHLORIDE 112 mmol/L (98-107); CREATININE 3.21 mg/dl (0.60-1.40); GLUCOSE 150 mg/dl (70-99); POTASSIUM 3.4 mmol/L (3.5-5.1); SODIUM 141 mmol/L (136-145)
[2017-08-01 10:14] LABS: INR 4.1 (0.9-1.1); PROTHROMBIN TIME (PATIENT) 41.4 SECONDS (9.0-12.0)
== END ==
LOC: C.LABUPNIT 09:07
PROVIDERS: ATTEND Nurse Practitioner Family
DX: L03.116 Cellulitis of left lower limb (principal); I82.91 Chronic embolism and thrombosis of unspecified vein

== ENCOUNTER → 2017-08-08 | Outpatient (CLI) | payer OTHER ==
[~2017-08-08] MED LIST changes: +AZTR1INJ5 IV; +VANC1CAP3 IV
[2017-08-08 09:00] LABS: BASO % 0.7 %; BASO ABS # 0.04 K/uL (0-0.2); EOS % 8.9 %; EOS ABS # 0.53 K/uL (0-0.5); HEMATOCRIT 26.7 % (42-52); HEMOGLOBIN 8.1 g/dL (14.0-18.0); IG# 0.01 K/uL (0.00-0.02); LYMPH % 18.1 %; LYMPH ABS # 1.08 K/uL (1.2-3.4); MEAN CELL VOLUME 86.4 fL (80-100); MEAN CORPUSCULAR HEMOGLOBIN 26.2 pg (25-34); MEAN CORPUSCULAR HGB CONC 30.3 g/dl (32-36); MONO % 6.5 %; MONO ABS # 0.39 K/uL (0.11-0.59); NEUT % 65.6 %; NEUT ABS # 3.92 K/uL (1.4-6.5); PLATELET COUNT 195 K/uL (130-400); RED CELL DISTRIBUTION WIDTH CV 20.7 % (11.5-14.5); RED CELL DISTRIBUTION WIDTH SD 64.9 fL (36.4-46.3); WHITE BLOOD COUNT 5.97 K/uL (4.8-10.8)
[2017-08-08 09:06] LABS: ALBUMIN 2.3 gm/dl (3.4-5.0); AST/SGOT 12 U/L (15-37); BLOOD UREA NITROGEN 52 mg/dl (7-18); CALCIUM 7.7 mg/dl (8.5-10.1); CARBON DIOXIDE 24 mmol/L (21-32); CREATININE 2.14 mg/dl (0.60-1.40); GLUCOSE 145 mg/dl (70-99); POTASSIUM 3.8 mmol/L (3.5-5.1); SODIUM 139 mmol/L (136-145)
[2017-08-08 09:09] LABS: ALKALINE PHOSPHATASE 157 U/L (45-117); ALT/SGPT 10 U/L (12-78)
[2017-08-08 09:12] LABS: INR 4.1 (0.9-1.1)
--- NOTE | 2017-08-11 08:49 | CODING QUERY NO DIAGNOSIS ---
TREATMENT RENDERED WITHOUT A DIAGNOSIS Angelina BORJAS, To promote full compliance with coding requirements relating to patient care, physician participation is requested in all cases of technical maintenance specialist uncertainty. Please assist us with providing a diagnosis/symptom for the test(s) below: A diagnosis/symptom was not documented on your Order. A valid diagnosis/symptom is required to bill all insurances. Please remember that we are unable to code a diagnosis of rule out, probable, possible, questionable, or suspected. Tests that require a diagnosis: * CBC W/AUTO DIFF DIAGNOSIS: * CMP DIAGNOSIS: * PROTHROMBIN TIME DIAGNOSIS: DATE OF SERVICE: 08/08/17 Provider Signature: Date: Thank you [facility] Information Management Once completed, please kindly fax back to [phone] For questions please call [phone]
== END | disposition home or self-care (01) ==
LOC: C.LABUPNIT 08:33
PROVIDERS: ATTEND Nurse Practitioner Family
DX: E11.49 Type 2 diabetes mellitus with other diabetic neurological complication (principal); I25.10 Atherosclerotic heart disease of native coronary artery without angina pectoris

== ENCOUNTER → 2017-08-09 | Outpatient (CLI) | payer OTHER ==
[~2017-08-09] MED LIST changes: +ACET-1311 PO; -ACET-749 PO; +ACET300T3 PO; +CMD/25 PO; +CMD3 PO; +CMD4 PO; +EFFSR/75 PO; +FNTTP25 TD; +FRS/40 PO; +LEVO50TA6 PO; +MCTP EXT; +TAMS0.4C38 PO; +[UNRECOGNIZED DRUG - CODE] IVF
[2017-08-09 08:40] LABS: HEMATOCRIT 26.8 % (42-52); MEAN CELL VOLUME 87.3 fL (80-100); MEAN CORPUSCULAR HEMOGLOBIN 26.1 pg (25-34); MEAN CORPUSCULAR HGB CONC 29.9 g/dl (32-36); MEAN PLATELET VOLUME 9.9 fL (7.4-10.4); PLATELET COUNT 190 K/uL (130-400); RED CELL DISTRIBUTION WIDTH CV 20.8 % (11.5-14.5); RED CELL DISTRIBUTION WIDTH SD 65.7 fL (36.4-46.3); WHITE BLOOD COUNT 5.83 K/uL (4.8-10.8)
[2017-08-09 08:49] LABS: BLOOD UREA NITROGEN 49 mg/dl (7-18); CALCIUM 7.6 mg/dl (8.5-10.1); CARBON DIOXIDE 26 mmol/L (21-32); CREATININE 2.42 mg/dl (0.60-1.40); GLUCOSE 150 mg/dl (70-99); POTASSIUM 3.6 mmol/L (3.5-5.1); SODIUM 141 mmol/L (136-145)
[2017-08-09 08:56] LABS: INR 3.1 (0.9-1.1)
== END ==
LOC: C.LABUPNIT 08:24
PROVIDERS: ATTEND Nurse Practitioner Family
DX: I25.10 Atherosclerotic heart disease of native coronary artery without angina pectoris (principal)

== ENCOUNTER → 2017-08-11 | Outpatient (CLI) | payer OTHER ==
[2017-08-11 08:46] LABS: INR 1.6 (0.9-1.1)
== END ==
LOC: C.LABUPNIT 08:20
PROVIDERS: ATTEND Nurse Practitioner Family
DX: N18.4 Chronic kidney disease, stage 4 (severe) (principal)

== ENCOUNTER → 2017-08-15 | Outpatient (CLI) | payer OTHER ==
[~2017-08-15] MED LIST changes: +ACET-749 PO; -ACET300T3 PO
[2017-08-15 08:19] LABS: INR 1.4 (0.9-1.1)
[2017-08-15 08:22] LABS: ALBUMIN 2.6 gm/dl (3.4-5.0); ALT/SGPT 11 U/L (12-78); AST/SGOT 12 U/L (15-37); BLOOD UREA NITROGEN 55 mg/dl (7-18); CALCIUM 7.9 mg/dl (8.5-10.1); CARBON DIOXIDE 26 mmol/L (21-32); CREATININE 2.63 mg/dl (0.60-1.40); GLUCOSE 168 mg/dl (70-99); POTASSIUM 3.9 mmol/L (3.5-5.1); SODIUM 139 mmol/L (136-145); TOTAL PROTEIN 8.3 gm/dl (6.4-8.2)
[2017-08-15 08:23] LABS: ALKALINE PHOSPHATASE 181 U/L (45-117)
[2017-08-15 08:28] LABS: HEMATOCRIT 28.4 % (42-52); HEMOGLOBIN 8.4 g/dL (14.0-18.0); MEAN CELL VOLUME 88.5 fL (80-100); MEAN CORPUSCULAR HEMOGLOBIN 26.2 pg (25-34); MEAN CORPUSCULAR HGB CONC 29.6 g/dl (32-36); MEAN PLATELET VOLUME 10.8 fL (7.4-10.4); PLATELET COUNT 205 K/uL (130-400); RED CELL DISTRIBUTION WIDTH CV 19.9 % (11.5-14.5); RED CELL DISTRIBUTION WIDTH SD 65.1 fL (36.4-46.3); WHITE BLOOD COUNT 4.94 K/uL (4.8-10.8)
== END | disposition home or self-care (01) ==
LOC: C.LABUPNIT 07:43
PROVIDERS: ATTEND Nurse Practitioner Family
DX: Z01.89 Encounter for other specified special examinations (principal)

== ENCOUNTER → 2017-08-17 | Outpatient (CLI) | payer OTHER ==
[~2017-08-17] MED LIST changes: -CMD/25 PO; -CMD3 PO; -MCTP EXT
[2017-08-17 09:04] LABS: INR 1.6 (0.9-1.1)
--- NOTE | 2017-08-19 07:09 | CODING QUERY NO DIAGNOSIS ---
TREATMENT RENDERED WITHOUT A DIAGNOSIS To promote full compliance with coding requirements relating to patient care, physician participation is requested in all cases of electrical systems designer uncertainty. Please assist us with providing a diagnosis/symptom for the test(s) below: A diagnosis/symptom was not documented on your Order. A valid diagnosis/symptom is required to bill all insurances. Please remember that we are unable to code a diagnosis of rule out, probable, possible, questionable, or suspected. Tests that require a diagnosis: DOS: 08/17/16 * PT/INR DIAGNOSIS: Provider Signature: Date: Thank you Hilary [facility] Information Management Once completed, please kindly fax back to [phone] For questions please call [phone]
== END ==
LOC: C.LABUPNIT 08:44
PROVIDERS: ATTEND Nurse Practitioner Family
DX: Z86.11 Personal history of tuberculosis (principal)

== ENCOUNTER → 2017-08-19 | Outpatient (CLI) | payer OTHER ==
[~2017-08-19] MED LIST changes: -ACET-1311 PO; -AZTR1INJ5 IV; -CMD4 PO; -EFFSR/75 PO; -FNTTP25 TD; -FRS/40 PO; -LEVO50TA6 PO; -TAMS0.4C38 PO; -VANC1CAP3 IV; -[UNRECOGNIZED DRUG - CODE] IVF
[2017-08-19 06:48] LABS: INR 2.1 (0.9-1.1)
== END ==
LOC: C.LABUPNIT 08:26
PROVIDERS: ATTEND Nurse Practitioner Family
DX: Z86.11 Personal history of tuberculosis (principal)

== ENCOUNTER → 2017-08-22 | Outpatient (CLI) | payer OTHER ==
[2017-08-22 10:05] LABS: BLOOD UREA NITROGEN 58 mg/dl (7-18); CARBON DIOXIDE 26 mmol/L (21-32); CREATININE 2.46 mg/dl (0.60-1.40); GLUCOSE 138 mg/dl (70-99); POTASSIUM 3.5 mmol/L (3.5-5.1); SODIUM 137 mmol/L (136-145)
== END ==
LOC: C.LABUPNIT 08:14
PROVIDERS: ATTEND Nurse Practitioner Family
DX: E11.49 Type 2 diabetes mellitus with other diabetic neurological complication (principal)

== ENCOUNTER → 2017-08-25 | Outpatient (CLI) | payer OTHER ==
[~2017-08-25] MED LIST changes: +AZTR1INJ5 IV; +VANC1CAP3 IV
[2017-08-25 08:37] LABS: INR 3.7 (0.9-1.1)
== END ==
LOC: C.LABUPNIT 08:07
PROVIDERS: ATTEND Nurse Practitioner Family
DX: I50.9 Heart failure, unspecified (principal); Z86.11 Personal history of tuberculosis

== ENCOUNTER 2017-08-29 18:18 | Inpatient (IN) | payer OTHER ==
[~2017-08-29] VITALS: Ht 182.9 cm; Wt 180.3 kg
[~2017-08-29 18:18] MED LIST changes: -ACET-1311 PO; -CMD/25 PO; -CMD3 PO; -CMD4 PO; -EFFSR/75 PO; -FNTTP25 TD; -FRS/40 PO; -LEVO50TA6 PO; -MCTP EXT; -TAMS0.4C38 PO; -[UNRECOGNIZED DRUG - CODE] IVF
[2017-08-29] MEDS ORDERED: CMD4 PO (18:41)
[2017-08-29] MEDS ORDERED: FNTTP25 TD (18:46)
[2017-08-29] MEDS ORDERED: LEVO50TA6 PO (18:50)
--- NOTE | 2017-08-29 18:59 | DIAGNOSTIC IMAGING REPORT ---
CHEST ONE VIEW PORTABLE CLINICAL HISTORY: Evaluate Fever/Sepsis COMPARISON STUDY: 07/10/2017 FINDINGS: Cardiomegaly. Congestive heart failure. Implantable cardiac pacemaker/defibrillator. The right PICC catheter has been removed. IMPRESSION: Congestive heart failure The above report was generated using voice recognition software. It may contain grammatical, syntax or spelling errors. Electronically signed by: Asa Hutton M.D. 08/29/2017 6:57 PM Dictated Date/Time: 08/29/2017 6:57 PM
[2017-08-29] MEDS ORDERED: TAMS0.4C38 PO (19:04)
[2017-08-29] MEDS ORDERED: FRS/40 PO (19:14)
[2017-08-29] MEDS ORDERED: [UNRECOGNIZED DRUG - CODE] IVF (19:20)
[2017-08-29 19:24] LABS: BASO % 0.6 %; BASO ABS # 0.04 K/uL (0-0.2); EOS % 5.6 %; EOS ABS # 0.36 K/uL (0-0.5); HEMATOCRIT 28.2 % (42-52); HEMOGLOBIN 8.6 g/dL (14.0-18.0); IG# 0.02 K/uL (0.00-0.02); LYMPH % 10.7 %; LYMPH ABS # 0.69 K/uL (1.2-3.4); MEAN CELL VOLUME 84.2 fL (80-100); MEAN CORPUSCULAR HEMOGLOBIN 25.7 pg (25-34); MEAN CORPUSCULAR HGB CONC 30.5 g/dl (32-36); MEAN PLATELET VOLUME 9.7 fL (7.4-10.4); MONO % 10.8 %; NEUT ABS # 4.65 K/uL (1.4-6.5); PLATELET COUNT 215 K/uL (130-400); RED CELL DISTRIBUTION WIDTH CV 18.4 % (11.5-14.5); RED CELL DISTRIBUTION WIDTH SD 57.8 fL (36.4-46.3); WHITE BLOOD COUNT 6.46 K/uL (4.8-10.8)
[2017-08-29] MEDS ORDERED: LCTX PO (19:24)
[2017-08-29] MEDS ORDERED: LVMI SQ (19:26)
[2017-08-29 19:37] LABS: INR 3.1 (0.9-1.1)
[2017-08-29] MEDS ORDERED: ACET-1311 PO (19:39)
[2017-08-29 19:41] LABS: ALBUMIN 2.4 gm/dl (3.4-5.0); ALT/SGPT 9 U/L (12-78); AST/SGOT 15 U/L (15-37); BLOOD UREA NITROGEN 74 mg/dl (7-18); CALCIUM 7.9 mg/dl (8.5-10.1); CARBON DIOXIDE 24 mmol/L (21-32); GLUCOSE 109 mg/dl (70-99); LIPASE 57 U/L (73-393); POTASSIUM 3.8 mmol/L (3.5-5.1); SODIUM 139 mmol/L (136-145)
[2017-08-29 19:44] LABS: ALKALINE PHOSPHATASE 168 U/L (45-117); TOTAL PROTEIN 8.3 gm/dl (6.4-8.2)
[2017-08-29] MEDS ORDERED: SODIUM CHLORIDE 0.9% 500ML 500 ML IV STA (20:12)
--- NOTE | 2017-08-29 20:17 | EMERGENCY ROOM VISIT NOTE ---
History Report prepared by Jesus: Chloe Antony Under the Supervision of: Dr. Star Little M.D. First contact with patient: 18:21 Stated Complaint: LETHARGIC, ABNORMAL LABS History of Present Illness The patient is a 56 year old male who presents to the Emergency Room with complaints of worsening fatigue starting earlier today. The patient currently resides at [facility]. He was sent to the ED today for worsening renal failure based on labs from today. The patient has been more lethargic today. He states that he is just tired. He feels the same as he did yesterday. He has been peeing. He complains of tailbone pain and leg pain. He is currently being treated for cellulitis in his leg. He has some abdominal pain which is new. He denies any SOB, headache, or dizziness. His last bowel movement was a couple days ago. His leg swelling is at baseline. Source of History: patient, nursing staff Onset: earlier today Position: other (global) Quality: other (fatigue) Timing: worsening Associated Symptoms: + abdominal pain, No headache, No SOB Note: Pt reports tailbone pain, leg pain. Pt denies dizziness. Review of Systems See HPI for pertinent positives and negatives. A total of ten systems were reviewed and were otherwise negative. Past Medical & Surgical Medical Problems: (1) ARF (acute renal failure) (2) CAD (coronary artery disease) (3) Chronic a-fib (4) Chronic CHF (5) Chronic pain (6) CKD (chronic kidney disease), stage IV (7) Depression (8) Diabetes mellitus, type II (9) Dyslipidemia (10) H/o sacral fracture (11) Heart attack (12) History of pulmonary embolus (PE) (13) History of stroke (14) HTN (hypertension) (15) Idiopathic cardiomyopathy (16) Ischemic cardiomyopathy (17) Lymphedema (18) Obesity, morbid, BMI 40.0-49.9 (19) Obstructive hydrocephalus (20) Pulmonary embolism (21) Right leg DVT (22) Sleep apnea (23) Venous insufficiency Surgical Problems: (1) H/O eye surgery (2) History of brain shunt (3) History of cholecystectomy (4) S/p pacemaker defibrillator (5) S/P spinal surgery (6) S/p vein filter Family History FH: CAD (coronary artery disease) FATHER ( of [place] late 60's) Social History Smoking Status: Never Smoker Drug Use: none Marital Status: Occupation Status: disabled Current/Historical Medications Scheduled Atorvastatin (Lipitor), 80 MG PO HS Aztreonam (Aztreonam), 1 GM IV Q8H Carvedilol (Coreg), 25 MG PO BID Esomeprazole Magnesium (Nexium), 40 MG PO DAILY Fentanyl (Fentanyl), 25 MCG TD CQ72HR Furosemide (Lasix), 160 MG PO BID Heparin Sod (Porcine) (Heparin Lock Flush), 3 ML IVF BID Insulin Aspart (Novolog Flexpen), 0 UNITS SC ACHS Insulin Detemir (Levemir), 10 UNITS SQ BID Lactobacillus Acidophilus (Lactinex), 2 TAB PO BID Levothyroxine Sodium (Levothyroxine Sodium), 37.5 MCG PO DAILY Loratadine (Claritin), 10 MG PO DAILY Melatonin (Melatonin), 10 MG PO HS Multiple Vitamins W/ Minerals (Theragran-M), 1 TAB PO QAM Polyethylene Glycol 3350 (Miralax), 17 GM PO DAILY Potassium Chloride (Potassium Chloride Er), 10 MEQ PO DAILY Pregabalin (Lyrica), 75 MG PO BID Sennosides-Docusate Sodium (Sennalax-S), 2 TABS PO HS Tamsulosin Hcl (Flomax), 0.4 MG PO HS Trazodone Hcl (Trazodone), 50 MG PO HS Ursodiol (Ursodiol), 300 MG PO BID Vancomycin Hcl (Vancomycin), 2 GM IV q48hr Venlafaxine HCl (Venlafaxine HCl ER), 75 MG PO DAILY Warfarin Sod (Coumadin), 4 MG PO DAILY Scheduled PRN Acetaminophen (Tylenol), 650 MG PO Q6H PRN for Pain or Fever Acetaminophen/Codeine (Tylenol W/Codeine #3), 1 TAB PO Q6H PRN for Pain Albuterol Hfa (Ventolin Hfa), 2 PUFFS INH Q6H PRN for Wheezing Hydroxyzine Hcl (Atarax), 25 MG PO QID PRN for Itching Magnesium Hydroxide (Milk Of Magnesia), 30 ML PO UD PRN for Constipation Nitroglycerin (Nitrostat), 0.4 MG UT UD PRN for Chest Pain Ondansetron Hcl (Zofran), 4 MG PO Q8 PRN for Nausea Allergies Coded Allergies: Cephalosporins (Verified Allergy, Unknown, increased HR vs sick to stomach , pt unsure abx allergy to?, 05/05/17) Clindamycin (Verified Allergy, Unknown, increased HR vs sick to stomach, pt unsure abx allergy to?, 05/05/17) Iodinated Diagnostic Agents (Verified Allergy, Unknown, unknown, 04/04/17) Penicillins (Unverified Allergy, Unknown, increased HR vs sick to stomach , pt unsure abx allergy to?, 05/05/17) Perflutren (Verified Allergy, Unknown, PERFLUTREN LIPID MICROSPHERES, 04/04) Physical Exam Vital Signs Date Time Temp Pulse Resp B/P (MAP) Pulse Ox O2 Delivery O2 Flow Rate FiO2 08/29/17 21:05 63 20 143/73 99 Nasal Cannula 2.0 08/29/17 20:03 60 22 142/71 98 Nasal Cannula 2.0 08/29/17 19:16 60 08/29/17 19:04 97 Room Air 08/29/17 18:49 36.7 61 20 148/76 97 Room Air Physical Exam GENERAL: Chronically ill-appearing, fatigued, in no distress HENT: Normocephalic, atraumatic. Dry cracked mucous membranes. EYES: Normal conjunctiva. Sclera non-icteric. NECK: Supple. No nuchal rigidity. FROM. No JVD. RESPIRATORY: Diminished at the bases. Clear to auscultation. CARDIAC: Regular rate, normal rhythm. Extremities warm and well perfused. Pulses equal. ABDOMEN: Obese abdomen. Soft, non-distended. Mild epigastric tenderness to palpation. No peritoneal signs. No rebound or guarding. No masses. RECTAL: Deferred. MUSCULOSKELETAL: Chest examination reveals no tenderness. The back is symmetrical on inspection without obvious abnormality. There is no CVA tenderness to palpation. No joint edema. LOWER EXTREMITIES: 4+ bilateral lower extremity pitting edema with erythema. Weeping cellulitis. Several blackened areas on his left toe and 2nd phalanx on the left foot. NEURO: Normal sensorium. No sensory or motor deficits noted. SKIN: No rash or jaundice noted. Medical Decision & Procedures ER Provider Diagnostic Interpretation: Radiology results as stated below per my review and radiologist interpretation: CHEST ONE VIEW PORTABLE CLINICAL HISTORY: Evaluate Fever/Sepsis COMPARISON STUDY: 07/10/2017 FINDINGS: Cardiomegaly. Congestive heart failure. Implantable cardiac pacemaker/defibrillator. The right PICC catheter has been removed. IMPRESSION: Congestive heart failure The above report was generated using voice recognition software. It may contain grammatical, syntax or spelling errors. Electronically signed by: Asa Hutton M.D. 08/29/2017 6:57 PM Dictated Date/Time: 08/29/2017 6:57 PM HEAD WITHOUT CONTRAST (CT) CT DOSE: 1023.01 mGy.cm HISTORY: Mental status change ams TECHNIQUE: Multiaxial CT images of the head were performed without the use of intravenous contrast. A dose lowering technique was utilized adhering to the principles of ALARA. Comparison: 01/10/2017 Findings: The paranasal sinuses and mastoid air cells are clear. The calvarium and skull base are intact. The ventricles and sulci are within normal limits. There is no mass, hematoma, midline shift, or acute infarct. Impression: No acute intracranial abnormality. The above report was generated using voice recognition software. It may contain grammatical, syntax or spelling errors. Electronically signed by: Asa Hutton M.D. 08/29/2017 8:47 PM Dictated Date/Time: 08/29/2017 8:46 PM ABD/PELVIS NO IV OR ORAL CONT CT DOSE: 2472.74 mGy.cm HISTORY: Pain abd pain TECHNIQUE: Multiaxial CT images of the abdomen and pelvis were performed without contrast. A dose lowering technique was utilized adhering to the principles of ALARA. COMPARISON STUDY: 05/22/2017 FINDINGS: Lung bases are clear. Stable hepatosplenomegaly. Unchanging fatty replacement of the pancreas. Cholecystectomy. Inferior vena caval filter present and unchanged in location. Mild bladder distention. Nonobstructive bowel pattern throughout. Several small renal cysts. No evidence for hydronephrosis. Several stable abdominal pelvic and inguinal nodes as compared to the prior exam. No new or progressive disease. Developing and are slightly progressive body wall anasarca. Multiple vascular collaterals within the subcutaneous tissues are noted and appear stable. Small bilateral effusions of the hips unchanged in the prior exam. IMPRESSION: 1. Developing body wall anasarca. Stable venous collaterals throughout the abdomen and pelvic wall regions 2. Otherwise unchanged evaluation of the abdomen and pelvis compared to the prior study. 3. Incidental findings are considered stable with no new or progressive intra-abdominal or pelvic finding. The above report was generated using voice recognition software. It may contain grammatical, syntax or spelling errors. Electronically signed by: Asa Hutton M.D. 08/29/2017 8:53 PM Dictated Date/Time: 08/29/2017 8:48 PM Laboratory Results 08/29/17 18:59 Red Blood Count 3.35, Mean Corpuscular Volume 84.2, Mean Corpuscular Hemoglobin 25.7, Mean Corpuscular Hemoglobin Concent 30.5, Mean Platelet Volume 9.7, Neutrophils (%) (Auto) 72.0, Lymphocytes (%) (Auto) 10.7, Monocytes (%) (Auto) 10.8, Eosinophils (%) (Auto) 5.6, Basophils (%) (Auto) 0.6, Neutrophils # (Auto ) 4.65, Lymphocytes # (Auto) 0.69, Monocytes # (Auto) 0.70, Eosinophils # (Auto ) 0.36, Basophils # (Auto) 0.04 08/29/17 18:59 Test 08/29/17 18:59 08/29/17 19:30 08/29/17 21:00 White Blood Count 6.46 K/uL (4.8-10.8) Red Blood Count 3.35 M/uL (4.7-6.1) Hemoglobin 8.6 g/dL (14.0-18.0) Hematocrit 28.2 % (42-52) Mean Corpuscular Volume 84.2 fL (80-100) Mean Corpuscular Hemoglobin 25.7 pg (25-34) Mean Corpuscular Hemoglobin Concent 30.5 g/dl (32-36) Platelet Count 215 K/uL (130-400) Mean Platelet Volume 9.7 fL (7.4-10.4) Neutrophils (%) (Auto) 72.0 % Lymphocytes (%) (Auto) 10.7 % Monocytes (%) (Auto) 10.8 % Eosinophils (%) (Auto) 5.6 % Basophils (%) (Auto) 0.6 % Neutrophils # (Auto) 4.65 K/uL (1.4-6.5) Lymphocytes # (Auto) 0.69 K/uL (1.2-3.4) Monocytes # (Auto) 0.70 K/uL (0.11-0.59) Eosinophils # (Auto) 0.36 K/uL (0-0.5) Basophils # (Auto) 0.04 K/uL (0-0.2) RDW Standard Deviation 57.8 fL (36.4-46.3) RDW Coefficient of Variation 18.4 % (11.5-14.5) Immature Granulocyte % (Auto) 0.3 % Immature Granulocyte # (Auto) 0.02 K/uL (0.00-0.02) 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 PRESENT Prothrombin Time 31.4 SECONDS (9.0-12.0) Prothromb Time International Ratio 3.1 (0.9-1.1) Venous Blood pH 7.35 (7.36-7.41) Venous Blood Partial Pressure CO2 46 mmHg (38.0-50.0) Venous Blood Partial Pressure O2 48 mmHg Venous Blood HCO3 25 mmol/L Venous Blood Oxygen Saturation 79.0 % Venous Blood Base Excess -1.0 mEq/L Anion Gap 10.0 mmol/L (3-11) Est Creatinine Clear Calc Drug Dose 52.4 ml/min Estimated GFR () 29.0 Estimated GFR (Non- 25.0 BUN/Creatinine Ratio 27.3 (10-20) Lactic Acid Level 0.9 mmol/L (0.4-2.0) Calcium Level 7.9 mg/dl (8.5-10.1) Magnesium Level 2.3 mg/dl (1.8-2.4) Total Bilirubin 0.5 mg/dl (0.2-1) Direct Bilirubin 0.2 mg/dl (0-0.2) Aspartate Amino Transf (AST/SGOT) 15 U/L (15-37) Alanine Aminotransferase (ALT/SGPT) 9 U/L (12-78) Alkaline Phosphatase 168 U/L (45-117) Ammonia 27.8 umol/L (11-32) Troponin I < 0.015 ng/ml (0-0.045) Pro-B-Type Natriuretic Peptide 7679 pg/ml (0-900) Total Protein 8.3 gm/dl (6.4-8.2) Albumin 2.4 gm/dl (3.4-5.0) Lipase 57 U/L (73-393) Thyroid Stimulating Hormone (TSH) 9.850 uIu/ml (0.300-4.500) Free Thyroxine 1.11 ng/dl (0.80-1.60) Total Triiodothyronine 0.68 ng/ml (0.60-1.81) Influenza Type A Antigen Neg for Influ A (NEG) Influenza Type B Antigen Neg for Influ B (NEG) Urine Color YELLOW Urine Appearance CLEAR (CLEAR) Urine pH 5.0 (4.5-7.5) Urine Specific [place] 1.016 (1.000-1.030) Urine Protein 1+ (NEG) Urine Glucose (UA) NEG (NEG) Urine Ketones NEG (NEG) Urine Occult Blood NEG (NEG) Urine Nitrite NEG (NEG) Urine Bilirubin NEG (NEG) Urine Urobilinogen NEG (NEG) Urine Leukocyte Esterase NEG (NEG) Urine WBC (Auto) 1-5 /hpf (0-5) Urine RBC (Auto) 0-4 /hpf (0-4) Urine Hyaline Casts (Auto) 1-5 /lpf (0-5) Urine Epithelial Cells (Auto) 5-10 /lpf (0-5) Urine Bacteria (Auto) NEG (NEG) Urine Opiates Screen POS (NEG) Urine Methadone, Qualitative NEG (NEG) Urine Barbiturates NEG (NEG) Urine Phencyclidine (PCP) Level NEG (NEG) Ur Amphetamine/Methamphetamine NEG (NEG) MDMA (Ecstasy) Screen NEG (NEG) Urine Benzodiazepines Screen NEG (NEG) Urine Cocaine Metabolite NEG (NEG) Urine Marijuana (THC) NEG (NEG) Laboratory results reviewed by me Medications Administered Medications (Trade) Dose Ordered Sig/Miguel Route Start Time Stop Time Status Last Admin Dose Admin Sodium Chloride 500 ml @ 125 mls/hr Q4H STAT IV 08/29/17 20:12 08/29/17 20:28 DC 08/29/17 20:12 125 MLS/HR Naloxone HCl (Narcan Inj) 0.4 mg NOW STAT IV 08/29/17 20:18 08/29/17 20:34 DC 08/29/17 20:48 0.4 MG ECG Indication: altered mental status Rate (beats per minute): 60 Rhythm: other (ventricular paced) Findings: no acute ischemic change, other (normal axis) Comparison ECG Date: 30-Jun-2017 Change: Similar to prior. ED Course 1829: The patient was evaluated in room B11B. A complete history and physical exam was performed. 2017: I discussed the patient with Mauricio Charles - He will evaluate the patient for further treatment. Medical Decision I reviewed the patient's past medical history, medications, and the nursing notes as described above. Differential diagnosis: sepsis, pneumonia, bronchitis, UTI, cellulitis, dehydration, electrolyte abnormality, acute on chronic renal failure, encephalopathy. The patient is a 56-year-old gentleman with a past medical history of CKD, cardiomyopathy, DVT on Coumadin who presents emergency Department with worsening malaise and renal function from her side nursing home facility per hpi. On arrival the patient is likely ill and fatigued appearing but in no acute distress, afebrile stable vital signs. Labs notable for persistently elevated BUNs recently in the 70s. Creatinine is 2.7 at the patient's recent baseline. Otherwise labs unremarkable including WBC and lactate within normal limits. Chest x-ray with question of venous congestion/heart failure however the patient has no respiratory symptoms and is saturating normally on room air at this time. Given the patient's uremia and altered mental status with BUN/Cr > 20 will attempt gentle IV fluid hydration considering the patient still urinates. CT head ordered and pending. Given the patient's impaired mental status in the setting of his elevated BUNs admission is reasonable for further evaluation and possible consideration of dialysis considering his extensive peripheral edema/cellulitis. Patient is currently on aztreonam and vancomycin for his cellulitis. Case discussed with Mauricio Gonsalves hospitalist will admit the patient for further management. Medication Reconcilliation Current Medication List: was personally reviewed by me Blood Pressure Screening Patient's blood pressure: Elevated blood pressure Referred to hospitalist. Consults Time Called: 2012 Consulting Physician: Mauricio Charles Returned Call: 2016 I discussed the patient with him - He will evaluate the patient for further treatment. Impression Primary Impression: Elevated BUN Additional Impressions: Uremic encephalopathy Cellulitis Acute on chronic renal failure Scribe Attestation The scribe's documentation has been prepared under my direction and personally reviewed by me in its entirety. I confirm that the note above accurately reflects all work, treatment, procedures, and medical decision making performed by me. Departure Information Dispostion Being Evaluated By Hospitalist Referrals Roberta Xiao (PCP) Problem Qualifiers
[2017-08-29] MEDS ORDERED: NALOXONE HCL 0.4 MG/1 ML VIAL/CARP IV STA (20:18)
[2017-08-29 20:35] LABS: INFLUENZA B ANTIGEN Neg for Influ B (NEG)
--- NOTE | 2017-08-29 20:48 | DIAGNOSTIC IMAGING REPORT ---
HEAD WITHOUT CONTRAST (CT) CT DOSE: 1023.01 mGy.cm HISTORY: Mental status change ams TECHNIQUE: Multiaxial CT images of the head were performed without the use of intravenous contrast. A dose lowering technique was utilized adhering to the principles of ALARA. Comparison: 01/10/2017 Findings: The paranasal sinuses and mastoid air cells are clear. The calvarium and skull base are intact. The ventricles and sulci are within normal limits. There is no mass, hematoma, midline shift, or acute infarct. Impression: No acute intracranial abnormality. The above report was generated using voice recognition software. It may contain grammatical, syntax or spelling errors. Electronically signed by: Asa Hutton M.D. 08/29/2017 8:47 PM Dictated Date/Time: 08/29/2017 8:46 PM
--- NOTE | 2017-08-29 20:54 | DIAGNOSTIC IMAGING REPORT ---
ABD/PELVIS NO IV OR ORAL CONT CT DOSE: 2472.74 mGy.cm HISTORY: Pain abd pain TECHNIQUE: Multiaxial CT images of the abdomen and pelvis were performed without contrast. A dose lowering technique was utilized adhering to the principles of ALARA. COMPARISON STUDY: 05/22/2017 FINDINGS: Lung bases are clear. Stable hepatosplenomegaly. Unchanging fatty replacement of the pancreas. Cholecystectomy. Inferior vena caval filter present and unchanged in location. Mild bladder distention. Nonobstructive bowel pattern throughout. Several small renal cysts. No evidence for hydronephrosis. Several stable abdominal pelvic and inguinal nodes as compared to the prior exam. No new or progressive disease. Developing and are slightly progressive body wall anasarca. Multiple vascular collaterals within the subcutaneous tissues are noted and appear stable. Small bilateral effusions of the hips unchanged in the prior exam. IMPRESSION: 1. Developing body wall anasarca. Stable venous collaterals throughout the abdomen and pelvic wall regions 2. Otherwise unchanged evaluation of the abdomen and pelvis compared to the prior study. 3. Incidental findings are considered stable with no new or progressive intra-abdominal or pelvic finding. The above report was generated using voice recognition software. It may contain grammatical, syntax or spelling errors. Electronically signed by: Asa Hutton M.D. 08/29/2017 8:53 PM Dictated Date/Time: 08/29/2017 8:48 PM
[2017-08-29] MEDS ORDERED: FUROSEMIDE INJ 100 MG in SYRINGE 0 ML IV STA (21:13)
[2017-08-29] MEDS ORDERED: FUROSEMIDE 40 MG/4 ML VIAL IV STA (21:17)
[2017-08-29] MEDS ORDERED: ALBUMIN HUMAN 25% 12.5 GM/50 ML VIAL IV STA (21:30)
--- NOTE | 2017-08-29 21:34 | History and Physical ---
History & Physical Date & Time of Service: Aug 29, 2017 at 21:01 Chief Complaint: Lethargic, Abnormal Labs Primary Care Physician: Roberta Xiao History of Present Illness Source: patient, clinic records, hospital records, care home Pt is 56 y/o M with PMH HTN, DM II, cardiomyopathy systolic & diastolic dysfunction, pacer, chronic DVT, chronic a-fib on coumadin, CKD IV, lymphedema, bilateral LE cellulitis on aztreonam, Hx back pain on fentanyl patch presented to ER from [facility] for lethargy and altered mental status. Per [facility] staff report pt has not been eating and drinking and refuses some medications recently. When I saw pt he is lying supine in no apparent distress and he refused to talk to follow commands. ER nursing staff report pt just was awake, alert and following commands and swearing at nursing staff, refusing to urinate and refusing catheter prior to my exam. Pt with recent admission on 08/01/17-08/05/17 for LE cellulitis and volume overload. In ER pt afebrile, P: 60, R: 20, BP: 142/71. 98% on 2L. Hgb: 8.6 (~baseline). Cr: 2.7 (was 2.6 on 08/15/17 and 2.4 on 08/09/17). INR: 3.1. CXR: CHF. Pt given 500ml NSS in ER. Past Medical/Surgical History Medical Problems: (1) CAD (coronary artery disease) Status: Chronic (2) Chronic a-fib Status: Chronic (3) Chronic CHF Permanent Comment: combined systolic and diastolic Status: Chronic (4) Chronic pain Status: Chronic (5) CKD (chronic kidney disease), stage IV Status: Chronic (6) Depression Status: Chronic (7) Diabetes mellitus, type II Status: Chronic (8) Dyslipidemia Status: Chronic (9) H/o sacral fracture Status: Chronic (10) Heart attack Status: Resolved (11) History of pulmonary embolus (PE) Status: Chronic (12) History of stroke Status: Chronic (13) HTN (hypertension) Status: Chronic (14) Idiopathic cardiomyopathy Status: Chronic (15) Ischemic cardiomyopathy Status: Resolved (16) Lymphedema Status: Chronic (17) Obesity, morbid, BMI 40.0-49.9 Status: Chronic (18) Obstructive hydrocephalus Status: Chronic (19) Pulmonary embolism Status: Resolved (20) Right leg DVT Status: Chronic (21) Sleep apnea Permanent Comment: not on CPAP Status: Chronic (22) Venous insufficiency Status: Chronic Surgical Problems: (1) H/O eye surgery Status: Chronic (2) History of brain shunt Status: Chronic (3) History of cholecystectomy Permanent Comment: 08/23/16 Status: Resolved (4) S/p pacemaker defibrillator Status: Chronic (5) S/P spinal surgery Status: Chronic (6) S/p vein filter Status: Chronic Family History FH: CAD (coronary artery disease) FATHER ( of [place] late 60's) Social History Smoking Status: Never Smoker Drug Use: none Marital Status: Housing status: assisted living, other Occupational Status: disabled Immunizations History of Influenza Vaccine: Unknown Multi-Drug Resistant 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, MRSA Allergies Coded Allergies: Cephalosporins (Verified Allergy, Unknown, increased HR vs sick to stomach , pt unsure abx allergy to?, 05/05/17) Clindamycin (Verified Allergy, Unknown, increased HR vs sick to stomach, pt unsure abx allergy to?, 05/05/17) Iodinated Diagnostic Agents (Verified Allergy, Unknown, unknown, 04/04/17) Penicillins (Unverified Allergy, Unknown, increased HR vs sick to stomach , pt unsure abx allergy to?, 05/05/17) Perflutren (Verified Allergy, Unknown, PERFLUTREN LIPID MICROSPHERES, 04/04) Home Medications Scheduled Atorvastatin (Lipitor), 80 MG PO HS Aztreonam (Aztreonam), 1 GM IV Q8H Carvedilol (Coreg), 25 MG PO BID Esomeprazole Magnesium (Nexium), 40 MG PO DAILY Fentanyl (Fentanyl), 25 MCG TD [id number] Furosemide (Lasix), 160 MG PO BID Heparin Sod (Porcine) (Heparin Lock Flush), 3 ML IVF BID Insulin Aspart (Novolog Flexpen), 0 UNITS SC ACHS Insulin Detemir (Levemir), 10 UNITS SQ BID Lactobacillus Acidophilus (Lactinex), 2 TAB PO BID Levothyroxine Sodium (Levothyroxine Sodium), 37.5 MCG PO DAILY Loratadine (Claritin), 10 MG PO DAILY Melatonin (Melatonin), 10 MG PO HS Multiple Vitamins W/ Minerals (Theragran-M), 1 TAB PO QAM Polyethylene Glycol 3350 (Miralax), 17 GM PO DAILY Potassium Chloride (Potassium Chloride Er), 10 MEQ PO DAILY Pregabalin (Lyrica), 75 MG PO BID Sennosides-Docusate Sodium (Sennalax-S), 2 TABS PO HS Tamsulosin Hcl (Flomax), 0.4 MG PO HS Trazodone Hcl (Trazodone), 50 MG PO HS Ursodiol (Ursodiol), 300 MG PO BID Vancomycin Hcl (Vancomycin), 2 GM IV q48hr Venlafaxine HCl (Venlafaxine HCl ER), 75 MG PO DAILY Warfarin Sod (Coumadin), 4 MG PO DAILY Scheduled PRN Acetaminophen (Tylenol), 650 MG PO Q6H PRN for Pain or Fever Acetaminophen/Codeine (Tylenol W/Codeine #3), 1 TAB PO Q6H PRN for Pain Albuterol Hfa (Ventolin Hfa), 2 PUFFS INH Q6H PRN for Wheezing Hydroxyzine Hcl (Atarax), 25 MG PO QID PRN for Itching Magnesium Hydroxide (Milk Of Magnesia), 30 ML PO UD PRN for Constipation Nitroglycerin (Nitrostat), 0.4 MG UT UD PRN for Chest Pain Ondansetron Hcl (Zofran), 4 MG PO Q8 PRN for Nausea Review of Systems unable to further obtain secondary to pt refusing to speak Physical Exam Vital Signs Date Time Temp Pulse Resp B/P (MAP) Pulse Ox O2 Delivery O2 Flow Rate FiO2 08/29/17 20:03 60 22 142/71 98 Nasal Cannula 2.0 08/29/17 19:16 60 08/29/17 19:04 97 Room Air 08/29/17 18:49 36.7 61 20 148/76 97 Room Air General Appearance: + obese, + pertinent finding (lying supine in bed with eyes closed. refusing to follow commands and will not talk) Head: normocephalic, atraumatic Eyes: PERRL, sclerae normal, + pertinent finding (unable to test EOMs as pt uncooperative) ENT: pharynx normal Neck: supple, trachea midline Respiratory/Chest: chest non-tender, no respiratory distress, no accessory muscle use, + decreased breath sounds (bases) Cardiovascular: regular rate, rhythm Abdomen/GI: normal bowel sounds, + pertinent finding (obese, soft, no apparent tenderness to palpation, inferior abdomen with erythema) Extremities/Musculoskelatal: + pertinent finding (bilateral extremities with severe edema and erythema extending proximally to abdomen, with areas of skin sloughing and yellow/clear weeping) Neurologic/Psych: + pertinent finding (pt will not follow commands or speak or open eyes) Skin: + pertinent finding (see above) Diagnostics Laboratory Results Results Past 24 Hours Test 08/29/17 18:59 08/29/17 19:30 Range/Units White Blood Count 6.46 4.8-10.8 K/uL Red Blood Count 3.35 4.7-6.1 M/uL Hemoglobin 8.6 14.0-18.0 g/dL Hematocrit 28.2 42-52 % Mean Corpuscular Volume 84.2 80-100 fL Mean Corpuscular Hemoglobin 25.7 25-34 pg Mean Corpuscular Hemoglobin Concent 30.5 32-36 g/dl Platelet Count 215 130-400 K/uL Mean Platelet Volume 9.7 7.4-10.4 fL Neutrophils (%) (Auto) 72.0 % Lymphocytes (%) (Auto) 10.7 % Monocytes (%) (Auto) 10.8 % Eosinophils (%) (Auto) 5.6 % Basophils (%) (Auto) 0.6 % Neutrophils # (Auto) 4.65 1.4-6.5 K/uL Lymphocytes # (Auto) 0.69 1.2-3.4 K/uL Monocytes # (Auto) 0.70 0.11-0.59 K/uL Eosinophils # (Auto) 0.36 0-0.5 K/uL Basophils # (Auto) 0.04 0-0.2 K/uL RDW Standard Deviation 57.8 36.4-46.3 fL RDW Coefficient of Variation 18.4 11.5-14.5 % Immature Granulocyte % (Auto) 0.3 % Immature Granulocyte # (Auto) 0.02 0.00-0.02 K/uL 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 PRESENT Prothrombin Time 31.4 9.0-12.0 SECONDS Prothromb Time International Ratio 3.1 0.9-1.1 Venous Blood pH 7.35 7.36-7.41 Venous Blood Partial Pressure CO2 46 38.0-50.0 mmHg Venous Blood Partial Pressure O2 48 mmHg Venous Blood HCO3 25 mmol/L Venous Blood Oxygen Saturation 79.0 % Venous Blood Base Excess -1.0 mEq/L Sodium Level 139 136-145 mmol/L Potassium Level 3.8 3.5-5.1 mmol/L Chloride Level 104 98-107 mmol/L Carbon Dioxide Level 24 21-32 mmol/L Anion Gap 10.0 3-11 mmol/L Blood Urea Nitrogen 74 7-18 mg/dl Creatinine 2.70 0.60-1.40 mg/dl Est Creatinine Clear Calc Drug Dose 52.4 ml/min Estimated GFR () 29.0 Estimated GFR (Non- 25.0 BUN/Creatinine Ratio 27.3 10-20 Random Glucose 109 70-99 mg/dl Lactic Acid Level 0.9 0.4-2.0 mmol/L Calcium Level 7.9 8.5-10.1 mg/dl Total Bilirubin 0.5 0.2-1 mg/dl Direct Bilirubin 0.2 0-0.2 mg/dl Aspartate Amino Transf (AST/SGOT) 15 15-37 U/L Alanine Aminotransferase (ALT/SGPT) 9 12-78 U/L Alkaline Phosphatase 168 45-117 U/L Ammonia 27.8 11-32 umol/L Troponin I < 0.015 0-0.045 ng/ml Pro-B-Type Natriuretic Peptide 7679 0-900 pg/ml Total Protein 8.3 6.4-8.2 gm/dl Albumin 2.4 3.4-5.0 gm/dl Lipase 57 73-393 U/L Influenza Type A Antigen Neg for Influ A NEG Influenza Type B Antigen Neg for Influ B NEG Microbiology Results 08/29/17 Blood Culture, Received Pending 08/29/17 Blood Culture, Received Pending Diagnostic Radiology CXR: FINDINGS: Cardiomegaly. Congestive heart failure. Implantable cardiac pacemaker/defibrillator. The right PICC catheter has been removed. CT HEAD: Impression: No acute intracranial abnormality. CT ABD/PELVIS: IMPRESSION: 1. Developing body wall anasarca. Stable venous collaterals throughout the abdomen and pelvic wall regions 2. Otherwise unchanged evaluation of the abdomen and pelvis compared to the prior study. 3. Incidental findings are considered stable with no new or progressive intra-abdominal or pelvic finding. Impression Assessment and Plan LETHARGY, ALTERED MENTAL STATUS Pt presented from [facility] with reports of pt not eating and drinking and reported lethargy and altered mental status. Negative CT head. Pt refuses to interact with this provider, reported by ER nursing staff pt was just alert and yelling at staff. He has fentanyl patch on. Narcan was ordered to evaluate if altered mental status from opioid overdose. Tox screen ordered BILATERAL LE WOUNDS Pt on aztreonam IV. CHRONIC SYSTOLIC & DIASTOLIC HF Pt on lasix 160mg BID. Recent admission on 08/01/17-08/05/17 for volume overload CKD IV Cr 2.7 (was 2.6 on 08/15/17 and 2/4 on 08/09/17) HYPOTHYROIDISM TSH added DM II Pt on Levemir 10 U BID per [facility] med rec DISPOSITION -admit med/surg -Pt has POLST full code Pt was seen with Dr Lim. See addendum Refer to further assessment & plan and DVT prophylaxis by attending Dr Lim Level of Care Med/Surg Assessment/Plan IM ATTENDING : Patient seen and examined. Preceding documentation by Ms. Brynn Lancaster PA-C, reviewed. Limited history obtained form patient secondary to uncooperative state. FINAL ASSESSMENT AND PLAN as follows: 1. Acute renal failure on chronic renal insufficiency. Patient presents with signs of volume overload. 2. Questionable encephalopathy feigned or real Irate behavior/speech at the ER as per [employer] DIRECTOR alternating "playing possum" with some providers. home narcotics/neuro-psychotropics possibly contributory. 3. Chronic diastolic heart failure px congested. 4. Chronic LE cellulitis cellulitis Slow response to outpatient IV Vancomycin, Aztreonam treatment started last month Antibiotic courses to be continued for another 3 weeks following recent outpx ID ffup eval not worse as per [facility] RN, although patient has been refusing prescribed leg wraps the last few days. 5. hx CAD/CVA as per records 6. AF status post pacemaker, paced rhythm. INR slightly supra-therapeutic. 7. History of pulmonary embolism and deep venous thrombosis as per records on coumadin sp IVC filter placement. 8. HTN , stable 9. Obstructive hydrocephalus status sp brain shunt as per records. 10. Chronic anemia secondary to CKD, hemoglobin at baseline. 11. DM2, reasonable control as of recent inpatient hemoglobin A1c of 7.5 last 07/2017. 12. Chronic pain on Fentanyl patch No Fentanyl patch as per [employer] DIRECTOR. Fentanyl patch was held 2 days ago as per care home med rec. GMF Lasix albumin combo for now. Follow renal function, fluid restriction. Strict IOs, daily weights Nephrology consult RE ARF on CRI (Patient known to Dr. Tucker.) Hold home neuro-psychotropics for sedation/confusion. Appropriate to hold Fentanyl patch given "encephalopathy." (Touchbase w/ care home provider prior to resuming Fentanyl patch once patient more awake given medication reconciliation discrepancy - patient's fentanyl patch has been off for 2 days as per care home med rec.) May benefit from Psych consult if the patient continues w/ difficult, uncooperative behavior. Basal insulin, ISS BG goal 140-180. DVT prophylaxis, Coumadin INR goal 2-3 Full code as per patient's existing POLST form.
[2017-08-29] MEDS ORDERED: GLUCOSE 10 TABS/TUBE PO PRN (21:45)
[2017-08-29] MEDS ORDERED: PROCHLORPERAZINE INJ 5 MG in SYRINGE 4 ML IV PRN (21:45)
[2017-08-29] MEDS ORDERED: GLUCAGON FOR INJ 1 MG VIAL SQ PRN (21:45)
[2017-08-29] MEDS ORDERED: GLUCOSE 40% GEL 15 GM TUBE PO PRN (21:45)
[2017-08-29] MEDS ORDERED: DEXTROSE 50% 50 ML SYR IV PRN (21:45)
[2017-08-29] MEDS ORDERED: ACETAMINOPHEN 325 MG TAB PO PRN (21:45)
[2017-08-29] MEDS ORDERED: ALBUT/IPRATROP 3MG/0.5MG NEB 3 ML VIAL INH PRN (22:00)
[2017-08-29 22:37] VITALS: O2SAT 99; BMI 57.0
[2017-08-29] MEDS ORDERED: EFFSR/75 PO (22:40)
[2017-08-29] MEDS ORDERED: INSULIN ASPART 100 UNITS/ML 3 ML PEN SC ONE (23:00)
[2017-08-29] MEDS ORDERED: VANCOMYCIN CONSULT ACTIVE PRN (23:00)
[2017-08-29] MEDS ORDERED: POTASSIUM CHLORIDE 10 MEQ TABCR PO ONE (23:00)
[2017-08-29] MEDS ORDERED: VANCOMYCIN INJ 2,750 MG in SODIUM CHLORIDE 0.9% 500ML 500 ML IV SCH (23:00)
[2017-08-29] MEDS: PREGABALIN 75 MG CAP PO SCH (23:00)
[2017-08-29] MEDS ORDERED: AZTREONAM CONSULT ACTIVE PRN (23:00)
[2017-08-29] MEDS: TRAZODONE HCL 50 MG TAB PO SCH (23:00)
[2017-08-29 23:25] VITALS: BP 161/78; PULSE 59; TEMP 36.6; O2SAT 100
[2017-08-29] MEDS: AZTREONAM 2000 MG in DEXTROSE 5% 100 ML IV SCH (23:35)
--- NOTE | 2017-08-29 23:40 | HISTORY & PHYSICAL EXAMINATION ---
DATE OF ADMISSION: 08/29/2017 IM ATTENDING : Patient seen and examined. Preceding documentation by Ms. Brynn Lancaster PA-C, reviewed. Limited history obtained form patient secondary to uncooperative state. FINAL ASSESSMENT AND PLAN as follows: 1. Acute renal failure on chronic renal insufficiency. Patient presents with signs of volume overload. 2. Questionable encephalopathy feigned or real Irate behavior/speech at the ER as per [employer] TRA[employer]ER alternating "playing possum" with some providers. home narcotics/neuro-psychotropics possibly contributory. 3. Chronic diastolic heart failure px congested. 4. Chronic LE cellulitis cellulitis Slow response to outpatient IV Vancomycin, Aztreonam treatment started last month Antibiotic courses to be continued for another 3 weeks following recent outpx ID ffup eval not worse as per [facility] RN, although patient has been refusing prescribed leg wraps the last few days. 5. hx CAD/CVA as per records 6. AF status post pacemaker, paced rhythm. INR slightly supra-therapeutic. 7. History of pulmonary embolism and deep venous thrombosis as per records on coumadin sp IVC filter placement. 8. HTN , stable 9. Obstructive hydrocephalus status sp brain shunt as per records. 10. Chronic anemia secondary to CKD, hemoglobin at baseline. 11. DM2, reasonable control as of recent inpatient hemoglobin A1c of 7.5 last 07/2017. 12. Chronic pain on Fentanyl patch No Fentanyl patch as per [employer]. Fentanyl patch was held 2 days ago as per retirement med rec. GMF Lasix albumin combo for now. Follow renal function, fluid restriction. Strict IOs, daily weights Nephrology consult RE ARF on CRI (Patient known to Dr. Tucker.) Hold home neuro-psychotropics for sedation/confusion. Appropriate to hold Fentanyl patch given "encephalopathy." (Touchbase w/ retirement provider prior to resuming Fentanyl patch once patient more awake given medication reconciliation discrepancy - patient's fentanyl patch has been off for 2 days as per retirement med rec.) May benefit from Psych consult if the patient continues w/ difficult, uncooperative behavior. Basal insulin, ISS BG goal 140-180. DVT prophylaxis, Coumadin INR goal 2-3 Full code as per patient's existing POLST form. MTDD
[2017-08-30] MEDS: LEVOTHYROXINE 75 MCG TAB PO SCH (06:13)
--- NOTE | 2017-08-30 06:39 | Clinical Documentation Query ---
CLINICAL DOCUMENTATION QUERY 56 year old male who presents to the Emergency Room with complaints of worsening fatigue and AMS. Patient by CXR has CHF and was treated with IV Lasix in ED. In your clinical opinion is this patient being managed for: ( ) Acute on chronic Systolic and Diastolic CHF treated and resolved with RX in ED ( ) Acute on chronic Diastolic CHF ( ) Not Agree ( ) Other explanation of clinical findings (Please Explain) ( ) Unable to determine (Please Define) ( ) Need to Discuss The medical record reflects the following clinical findings, treatment, and risk factors. Clinical Indicators: Diminished lung sounds, CXR showing cardiomegaly with CHF. Treatment: IV Lasix, Risk Factors: Age, CAD, Cardiomyopathy with systolic and diastolic dysfunction, Afib, CKD Please clarify and document your clinical opinion in the progress notes and discharge summary. Terms such as "probable", "suspected", "likely", "questionable", "possible", or "still to be ruled out" are acceptable. IF IN AGREEMENT, YOU MUST DOCUMENT ABOVE DIAGNOSTIC STATEMENT IN DAILY PROGRESS NOTES AND DISCHARGE SUMMARY. This document is not part of the patient's record. Thank You, Familia Grey, ABHISHEK [phone]
[2017-08-30 07:38] VITALS: BP 140/77; PULSE 62; TEMP 36.3; O2SAT 90
[2017-08-30 08:00] VITALS: O2SAT 90
[2017-08-30 08:10] LABS: BASO % 1.2 %; BASO ABS # 0.06 K/uL (0-0.2); EOS % 7.4 %; EOS ABS # 0.36 K/uL (0-0.5); HEMATOCRIT 29.5 % (42-52); HEMOGLOBIN 8.9 g/dL (14.0-18.0); IG# 0.01 K/uL (0.00-0.02); LYMPH % 12.1 %; LYMPH ABS # 0.59 K/uL (1.2-3.4); MEAN CORPUSCULAR HEMOGLOBIN 25.4 pg (25-34); MEAN CORPUSCULAR HGB CONC 30.2 g/dl (32-36); MEAN PLATELET VOLUME 9.7 fL (7.4-10.4); MONO % 12.8 %; MONO ABS # 0.62 K/uL (0.11-0.59); NEUT % 66.3 %; NEUT ABS # 3.22 K/uL (1.4-6.5); PLATELET COUNT 222 K/uL (130-400); RED CELL DISTRIBUTION WIDTH CV 18.1 % (11.5-14.5); RED CELL DISTRIBUTION WIDTH SD 55.9 fL (36.4-46.3); WHITE BLOOD COUNT 4.86 K/uL (4.8-10.8)
[2017-08-30 08:16] LABS: INR 3.6 (0.9-1.1)
[2017-08-30] MEDS: LORATADINE 10 MG TAB PO SCH (08:27)
[2017-08-30] MEDS: CEROVITE ADV FORMULA TAB PO SCH (08:27)
[2017-08-30] MEDS: LACTOBACILLUS ACIDOPHILUS (FLORANEX) TAB PO SCH ×2 (08:27→17:43)
[2017-08-30] MEDS: CARVEDILOL 25 MG TAB PO SCH ×2 (08:27→22:01)
[2017-08-30] MEDS: URSODIOL 300 MG CAP PO SCH ×2 (08:27→22:01)
[2017-08-30] MEDS: PANTOprazole SOD 40 MG TAB PO SCH (08:27)
[2017-08-30] MEDS: POLYETHYLENE (MIRALAX) 17 GM PACK PO SCH (08:28)
[2017-08-30] MEDS: VENLAFAXINE HCL XR 75 MG CAPXR PO SCH (08:29)
[2017-08-30] MEDS: AZTREONAM 2000 MG in DEXTROSE 5% 100 ML IV SCH ×2 (08:34→15:43)
[2017-08-30 08:37] LABS: CALCIUM 8.3 mg/dl (8.5-10.1); CREATININE 2.37 mg/dl (0.60-1.40); POTASSIUM 3.4 mmol/L (3.5-5.1)
[2017-08-30] MEDS: INSULIN DETEMIR FLEXPEN/FLEX TOUCH 100 UNITS/ML 3ML SC SCH (08:40)
[2017-08-30] MEDS: INSULIN ASPART 100 UNITS/ML 3 ML PEN SC SCH ×4 (08:40→21:00)
[2017-08-30] MEDS: PREGABALIN 75 MG CAP PO SCH ×2 (08:47→22:19)
[2017-08-30] MEDS ORDERED: POTASSIUM CHLORIDE 20 MEQ TABCR PO ONE (09:30)
--- NOTE | 2017-08-30 09:49 | NEPHROLOGY CONSULTATION ---
DATE OF CONSULTATION: 08/30/2017 ATTENDING OF RECORD: Genesis Salazar MD REASON FOR CONSULTATION: CKD and volume overload. HISTORY OF PRESENT ILLNESS: This is a 56-year-old male who has multiple hospitalizations to multiple hospitals for significant lymphedema with chronic wounds over the lower extremities with underlying cardiomyopathy, diabetes, CKD, AFib with pacemaker, DVTs with recurrent lower extremity cellulitis who presented with altered mental status and fatigue. In the ER, labs were relatively stable. The patient was given 500 mL of normal saline in the Emergency Room. The patient's white count was 6, creatinine 2.7 and this morning, it is down to 2.37. Thyroid levels were good at 1.11. Toxicology screen was negative. Urine was bland. Flu was negative and VBG blood gas had a pH of 7.35, pCO2 of 46, pO2 of 48 and a bicarbonate of 25. Abdominal pelvis CT shows a body wall anasarca. Head CT was negative. Chest x-ray suggestive of congestive heart failure. Currently on aztreonam 2 grams IV q. 8. PAST MEDICAL AND SURGICAL HISTORY: AFib, heart disease, CKD stage IV, type 2 diabetes, depression, hyperlipidemia, history of DVT, history of stroke, chronic lymphedema, obstructive hydrocephalus as a child status post surgery, sleep apnea, cholecystectomy, AICD/pacemaker, IVC filter in the past. FAMILY HISTORY: Significant for heart disease. SOCIAL HISTORY: No smoking, no alcohol, no drugs. Lives in [place]. HOME MEDICATIONS: Significant for Coreg 25 b.i.d., Lasix 160 mg p.o. b.i.d., potassium 10 mEq daily. CURRENT MEDICATIONS: Lipitor 80 mg at night, senna 2 tabs at night, Flomax 0.4 mg at night, Coreg 25 p.o. b.i.d., Claritin 10 mg daily, multivitamin daily, Ursodiol 300 mg p.o. b.i.d., Effexor 75 mg daily, Protonix 40 mg daily, MiraLax 17 grams daily, Levemir insulin 5 units daily, levothyroxine 37.5 mcg daily, aztreonam 2 grams IV q. 8, Lyrica 75 mg p.o. b.i.d. REVIEW OF SYSTEMS: The patient this morning appears to be at his normal baseline mental status. No significant complaints other than he is complaining that he is on a fluid restriction at the assisted and he has noticed a decrease in urination. He does get short of breath with overexertion. No chest pain. No nausea or vomiting. Does have poor vision. No dysphagia. No itching. Does have chronic swelling in the lower extremities, although it appears better now than in the past with the chronic wounds. All other review of systems otherwise negative. PHYSICAL EXAMINATION: VITAL SIGNS: Temperature is 36.3, pulse is 62, respiratory rate is 22, blood pressure is 140/77, satting 90% on room air. GENERAL: Awake, alert, oriented x3. EYES: No scleral icterus. ENT: Moist mucous membranes. NECK: Supple. PULMONARY: Decreased breath sounds at the bases. CARDIAC: Distant heart sounds. ABDOMEN: Bowel sounds positive, soft, nontender. EXTREMITIES: +2 edema, right greater than left with some chronic wounds over the lower extremities. NEUROLOGICALLY: Nonfocal. DERMATOLOGIC: Chronic wounds. LABORATORY DATA: Laboratories have been reviewed. IMPRESSION AND PLAN: Chronic kidney disease stage IV. The creatinine varies based on volume status. It was 2.7 yesterday and is now down to 2.37. The patient was actually given fluids yesterday and currently not on any diuretics. Edema in the lower extremities is much better compared to previous admissions. Blood pressure is stable. Pulse is well controlled. Screening for signs of infection, blood cultures are pending. Urine looked bland. Chest x-ray was unrevealing for any infiltrates, only suggestive of mild congestive heart failure. In my opinion, we would continue the current diuretics with albumin to continue to mobilize extra volume while continuing screening for infection and in my opinion, knowing him from previous hospitalizations, he appears to be at baseline mental status. However, we will respectfully defer to primary hospitalist and consider neuro evaluation if he continues to have altered mental status. I appreciate consultation. WANG
[2017-08-30 13:29] VITALS: Ht 182.9 cm; Wt 180.3 kg
--- NOTE | 2017-08-30 13:37 | Pharmacy Progress Note ---
Pharmacy Abx Dose Short Note Date of Service Aug 30, 2017. Assessment & Plan Vanco/Aztreonam for AMS/leg wounds. Pt is known to the pharmacy kinetic team. Renal fxn is similar to previous admissions. Will initiate Vanco 1750 (9mg/kg) Q24. This yielded therapeutic troughs in the past. Trough ordered for 09/02/17 @ 0130. Goal trough: 15-20mcg/mL while BC x2 are pending. Pharmacy will continue to follow and will adjust dose/frequency as necessary. Thank you.
[2017-08-30 14:43] VITALS: BP 166/91; PULSE 63; TEMP 36.5; O2SAT 99
--- NOTE | 2017-08-30 14:50 | Progress Note ---
Medicine Progress Note Date & Time of Visit: Aug 30, 2017 at 14:34. Subjective Pt was seen and examined Sitting in bed with no distress Pt said that he was very upset yesterday at the facility He said that they did not want to listen to what he had to say He said that he did not want to participate in anything yesterday Pt said that he feels fine He said that his leg seems much better compare previous time he got admitted Denies any chest pain, palpitation, dizziness and SOB Objective Last 8 Hrs Date Time Temp Pulse Resp B/P (MAP) Pulse Ox O2 Delivery O2 Flow Rate FiO2 08/30/17 08:00 90 Room Air 08/30/17 07:38 36.3 62 22 140/77 (98) 90 Room Air Physical Exam: General- No acute distress Head- atraumatic Eyes- PERRL, EOMI ENT- oropharynx clear Neck- supple, no JVD Lungs- clear to auscultation Heart- regular rhythm Abdomen- normal bowel sounds, soft Extremities-+edema, no calf tenderness, B/L LE wound sipping and dry crusting Neuro- alert, oriented x 3; PERRL, EOMI Skin- warm & dry Laboratory Results: Last 24 Hours Test 08/29/17 18:59 08/29/17 19:30 08/29/17 21:00 08/29/17 23:28 White Blood Count 6.46 K/uL Red Blood Count 3.35 M/uL Hemoglobin 8.6 g/dL Hematocrit 28.2 % Mean Corpuscular Volume 84.2 fL Mean Corpuscular Hemoglobin 25.7 pg Mean Corpuscular Hemoglobin Concent 30.5 g/dl Platelet Count 215 K/uL Mean Platelet Volume 9.7 fL Neutrophils (%) (Auto) 72.0 % Lymphocytes (%) (Auto) 10.7 % Monocytes (%) (Auto) 10.8 % Eosinophils (%) (Auto) 5.6 % Basophils (%) (Auto) 0.6 % Neutrophils # (Auto) 4.65 K/uL Lymphocytes # (Auto) 0.69 K/uL Monocytes # (Auto) 0.70 K/uL Eosinophils # (Auto) 0.36 K/uL Basophils # (Auto) 0.04 K/uL RDW Standard Deviation 57.8 fL RDW Coefficient of Variation 18.4 % Immature Granulocyte % (Auto) 0.3 % Immature Granulocyte # (Auto) 0.02 K/uL 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 PRESENT Prothrombin Time 31.4 SECONDS Prothromb Time International Ratio 3.1 Venous Blood pH 7.35 Venous Blood Partial Pressure CO2 46 mmHg Venous Blood Partial Pressure O2 48 mmHg Venous Blood HCO3 25 mmol/L Venous Blood Oxygen Saturation 79.0 % Venous Blood Base Excess -1.0 mEq/L Sodium Level 139 mmol/L Potassium Level 3.8 mmol/L Chloride Level 104 mmol/L Carbon Dioxide Level 24 mmol/L Anion Gap 10.0 mmol/L Blood Urea Nitrogen 74 mg/dl Creatinine 2.70 mg/dl Est Creatinine Clear Calc Drug Dose 52.4 ml/min Estimated GFR () 29.0 Estimated GFR (Non- 25.0 BUN/Creatinine Ratio 27.3 Random Glucose 109 mg/dl Lactic Acid Level 0.9 mmol/L Calcium Level 7.9 mg/dl Magnesium Level 2.3 mg/dl Total Bilirubin 0.5 mg/dl Direct Bilirubin 0.2 mg/dl Aspartate Amino Transf (AST/SGOT) 15 U/L Alanine Aminotransferase (ALT/SGPT) 9 U/L Alkaline Phosphatase 168 U/L Ammonia 27.8 umol/L Troponin I < 0.015 ng/ml Pro-B-Type Natriuretic Peptide 7679 pg/ml Total Protein 8.3 gm/dl Albumin 2.4 gm/dl Lipase 57 U/L Thyroid Stimulating Hormone (TSH) 9.850 uIu/ml Free Thyroxine 1.11 ng/dl Total Triiodothyronine 0.68 ng/ml Influenza Type A Antigen Neg for Influ A Influenza Type B Antigen Neg for Influ B Urine Color YELLOW Urine Appearance CLEAR Urine pH 5.0 Urine Specific [place] 1.016 Urine Protein 1+ Urine Glucose (UA) NEG Urine Ketones NEG Urine Occult Blood NEG Urine Nitrite NEG Urine Bilirubin NEG Urine Urobilinogen NEG Urine Leukocyte Esterase NEG Urine WBC (Auto) 1-5 /hpf Urine RBC (Auto) 0-4 /hpf Urine Hyaline Casts (Auto) 1-5 /lpf Urine Epithelial Cells (Auto) 5-10 /lpf Urine Bacteria (Auto) NEG Urine Opiates Screen POS Urine Methadone, Qualitative NEG Urine Barbiturates NEG Urine Phencyclidine (PCP) Level NEG Ur Amphetamine/Methamphetamine NEG MDMA (Ecstasy) Screen NEG Urine Benzodiazepines Screen NEG Urine Cocaine Metabolite NEG Urine Marijuana (THC) NEG Bedside Glucose 105 mg/dl Test 08/30/17 07:25 08/30/17 07:48 08/30/17 09:56 08/30/17 11:32 Bedside Glucose 98 mg/dl 135 mg/dl White Blood Count 4.86 K/uL Red Blood Count 3.51 M/uL Hemoglobin 8.9 g/dL Hematocrit 29.5 % Mean Corpuscular Volume 84.0 fL Mean Corpuscular Hemoglobin 25.4 pg Mean Corpuscular Hemoglobin Concent 30.2 g/dl Platelet Count 222 K/uL Mean Platelet Volume 9.7 fL Neutrophils (%) (Auto) 66.3 % Lymphocytes (%) (Auto) 12.1 % Monocytes (%) (Auto) 12.8 % Eosinophils (%) (Auto) 7.4 % Basophils (%) (Auto) 1.2 % Neutrophils # (Auto) 3.22 K/uL Lymphocytes # (Auto) 0.59 K/uL Monocytes # (Auto) 0.62 K/uL Eosinophils # (Auto) 0.36 K/uL Basophils # (Auto) 0.06 K/uL RDW Standard Deviation 55.9 fL RDW Coefficient of Variation 18.1 % Immature Granulocyte % (Auto) 0.2 % Immature Granulocyte # (Auto) 0.01 K/uL Hypochromasia PRESENT Prothrombin Time 36.4 SECONDS Prothromb Time International Ratio 3.6 Sodium Level 140 mmol/L Potassium Level 3.4 mmol/L Chloride Level 106 mmol/L Carbon Dioxide Level 25 mmol/L Anion Gap 10.0 mmol/L Blood Urea Nitrogen 73 mg/dl Creatinine 2.37 mg/dl Est Creatinine Clear Calc Drug Dose 59.7 ml/min Estimated GFR () 34.0 Estimated GFR (Non- 29.3 BUN/Creatinine Ratio 30.6 Random Glucose 102 mg/dl Calcium Level 8.3 mg/dl Random Vancomycin Level 29.0 mcg/ml Date/Time Source Procedure Growth Status 08/29/17 19:12 Blood Blood Culture Pending Received 08/29/17 18:59 Blood Blood Culture Pending Received Assessment & Plan Altered mental status? Seems like pt was upset and did not want to cooperate he seems to be at is baseline Bilateral lower extremity swelling: Multifactorial with h/o lymphedema, CHF, CKD, DM type 2 Refused trujillo to monitor I/O On 1L fluid restriction Will start on Lasix 80mg BID Continue albumin Continue monitor renal function Clinically improved Nephrology on board will need to monitor BMP B/L LE wound Multiple hospital admission Grew multiple resistant organisms in the past Continue daily wound care Wound has been improved since last admission Starting on Azactam and vanco Blood cx pending stable Multiple pressure ulcers in sacrum/ B/L LE has been stable Continue daily wound care Chronic Anemia Hb 8.9 Continue monitor CBC Stable Chronic systolic/diastolic HF Asymptomatic. Last Echo in Mar 2017 showed EF of 55-60%, mild concentric LVH, left atrium severely dilated Starting on Lasix 80mg BID Continue 1L fluid restriction continue monitor BMP twice weekly HYPOKALEMIA K3.4 K replaced Monitor BMP DM II: Hgb a1c of 7.7 in May 2017 On Levemir subq Continue Insulin coverage Continue monitor BS Chronic A Fib: Rate is controlled INR 3.6 decrease Coumadin to 1 mg Continue monitor lNR BART on CKD Stage IV: Creatine on admission 2.7 Baseline GFR ~30, Cr 2.4 Creatine 2.3 today Continue monitor BMP Stable H/o R DVT/PE: S/p IVC filter On Coumadin INR 3.6 HTN: Stable Continue home meds Hypothyroidism: Levothyroxine increased to 37.5 Stable DVT px on Coumadin INR 3.6 CODE STATUS FULL CODE Current Inpatient Medications: Current Inpatient Medications Medications (Trade) Dose Ordered Sig/Miguel Route Start Time Stop Time Status Last Admin Dose Admin Acetaminophen (Tylenol Tab) 650 mg Q4H PRN PO 08/29/17 21:45 09/28/17 21:44 Insulin Aspart (novoLOG ASPART) SLIDING SCALE If C... ACHS SC 08/30/17 06:30 09/29/17 06:59 Glucose (Glucose 40% Gel) 15-30 GRAMS 15 GRAMS... UD PRN PO 08/29/17 21:45 09/28/17 21:44 Glucose (Glucose Chew Tab) 4-8 Tablets 4 Tabl... UD PRN PO 08/29/17 21:45 09/28/17 21:44 Dextrose (Dextrose 50% 50ML Syringe) 25-50ML OF 50% DW IV FOR... UD PRN IV 08/29/17 21:45 09/28/17 21:44 Glucagon (Glucagon Inj) 1 mg UD PRN SQ 08/29/17 21:45 09/28/17 21:44 Atorvastatin Calcium (Lipitor Tab) 80 mg HS PO 08/30/17 21:00 09/29/17 20:59 Carvedilol (Coreg Tab) 25 mg BID PO 08/30/17 09:00 09/29/17 08:59 08/30/17 08:27 25 MG Lactobacillus Acidophilus (Floranex Tab) 2 tab BIDM PO 08/30/17 08:00 09/29/17 07:59 08/30/17 08:27 2 TAB Levothyroxine Sodium (Synthroid Tab) 37.5 mcg DAILYBB PO 08/30/17 06:30 09/29/17 06:29 Loratadine (Claritin Tab) 10 mg DAILY PO 08/30/17 09:00 09/29/17 08:59 08/30/17 08:27 10 MG Multivitamins/ Minerals (Multivitamin W/ Minerals Tab) 1 tab QAM PO 08/30/17 09:00 09/29/17 08:59 08/30/17 08:27 1 TAB Pregabalin (Lyrica Cap) 75 mg BID PO 08/29/17 23:00 09/28/17 22:59 08/30/17 08:47 75 MG Senna/Docusate Sodium (Senokot S Tab) 2 tab HS PO 08/30/17 21:00 09/29/17 20:59 Tamsulosin HCl (Flomax Cap) 0.4 mg HS PO 08/30/17 21:00 09/29/17 20:59 Trazodone HCl (Desyrel Tab) 50 mg HS PO 08/29/17 23:00 09/28/17 22:59 Ursodiol (Actigall Cap) 300 mg BID PO 08/30/17 09:00 09/29/17 08:59 08/30/17 08:27 300 MG Venlafaxine HCl (effeXOR EXTENDED REL CAP) 75 mg QAM PO 08/30/17 09:00 09/29/17 08:59 08/30/17 08:29 75 MG Pantoprazole Sodium (Protonix Tab) 40 mg QAM PO 08/30/17 09:00 09/29/17 08:59 08/30/17 08:27 40 MG Polyethylene (Miralax Powder Packet) 17 gm QAM PO 08/30/17 09:00 09/29/17 08:59 08/30/17 08:28 17 GM Insulin Detemir (Levemir Flexpen/ FlexTouch) 5 units DAILY SC 08/30/17 09:00 09/29/17 08:59 08/30/17 08:40 5 UNITS Aztreonam (Consult) 1 ea UD PRN N/A 08/29/17 23:00 09/28/17 22:59 Tramadol HCl (Ultram Tab) 25 mg Q6H PRN PO 08/29/17 21:45 09/28/17 21:44 Prochlorperazine Edisylate 5 mg/ Syringe 5 ml @ 5 mls/min Q6H PRN IV 08/29/17 21:45 09/28/17 21:44 Albuterol/ Ipratropium (Duoneb) 3 ml Q2H PRN INH 08/29/17 22:00 09/28/17 21:59 Aztreonam 2000 mg/ Dextrose 110 ml @ 110 mls/hr Q8H IV 08/30/17 00:00 09/09/17 00:00 08/30/17 08:34 110 MLS/HR Miscellaneous Information (Consult) 1 ea UD PRN N/A 08/29/17 23:00 09/28/17 22:59 Heparin Sodium (Porcine) (Heparin 10 Unit/ ml 5 ml Flush) 5 ml PRN PRN FLUSH 08/30/17 01:30 09/29/17 01:29 08/30/17 03:23 5 ML Vancomycin HCl 1750 mg/Sodium Chloride 535 ml @ 200 mls/hr DAILY@0200 IV 08/31/17 02:00 09/10/17 01:59
[2017-08-30] MEDS ORDERED: NURSING VERBAL MED ORDER ONE (15:30)
[2017-08-30] MEDS ORDERED: MICONAZOLE NITRATE POWDER 43 GM EXT PRN (15:30)
[2017-08-30 16:00] VITALS: O2SAT 99
[2017-08-30] MEDS ORDERED: WARFARIN SOD 1 MG TAB PO ONE (16:30)
[2017-08-30 20:30] VITALS: O2SAT 99
[2017-08-30] MEDS: FUROSEMIDE INJ 80 MG in SYRINGE 0 ML IV SCH (21:57)
[2017-08-30] MEDS: ATORVASTATIN 40 MG TAB PO SCH (22:00)
[2017-08-30] MEDS: TAMSULOSIN HCL 0.4 MG CAP PO SCH (22:00)
[2017-08-30] MEDS: DOCUSATE SODIUM/SENNA 50/8.6MG TAB PO SCH (22:00)
[2017-08-30] MEDS: TRAZODONE HCL 50 MG TAB PO SCH (22:00)
[2017-08-30 23:24] VITALS: BP 144/75; PULSE 62; TEMP 36.6; O2SAT 92
[2017-08-31] MEDS: AZTREONAM 2000 MG in DEXTROSE 5% 100 ML IV SCH ×3 (00:18→16:07)
[2017-08-31] MEDS: VANCOMYCIN INJ 1,750 MG in SODIUM CHLORIDE 0.9% 500ML 500 ML IV SCH (02:00)
[2017-08-31] MEDS: LEVOTHYROXINE 75 MCG TAB PO SCH (05:48)
[2017-08-31 06:39] LABS: HEMATOCRIT 29.6 % (42-52); MEAN CELL VOLUME 84.1 fL (80-100); MEAN CORPUSCULAR HEMOGLOBIN 25.6 pg (25-34); MEAN CORPUSCULAR HGB CONC 30.4 g/dl (32-36); PLATELET COUNT 207 K/uL (130-400); RED CELL DISTRIBUTION WIDTH CV 18.4 % (11.5-14.5); RED CELL DISTRIBUTION WIDTH SD 56.4 fL (36.4-46.3)
[2017-08-31 06:56] LABS: INR 5.6 (0.9-1.1)
[2017-08-31 07:12] LABS: CALCIUM 8.2 mg/dl (8.5-10.1); CREATININE 2.32 mg/dl (0.60-1.40); POTASSIUM 3.7 mmol/L (3.5-5.1)
[2017-08-31 07:34] VITALS: BP 179/93; PULSE 63; TEMP 36.4; O2SAT 94
[2017-08-31] MEDS: URSODIOL 300 MG CAP PO SCH ×2 (07:42→21:29)
[2017-08-31] MEDS: LACTOBACILLUS ACIDOPHILUS (FLORANEX) TAB PO SCH ×2 (07:42→16:07)
[2017-08-31] MEDS: POLYETHYLENE (MIRALAX) 17 GM PACK PO SCH (07:42)
[2017-08-31] MEDS: VENLAFAXINE HCL XR 75 MG CAPXR PO SCH (07:43)
[2017-08-31] MEDS: CEROVITE ADV FORMULA TAB PO SCH (07:43)
[2017-08-31] MEDS: PANTOprazole SOD 40 MG TAB PO SCH (07:43)
[2017-08-31] MEDS: LORATADINE 10 MG TAB PO SCH (07:43)
[2017-08-31] MEDS: CARVEDILOL 25 MG TAB PO SCH ×2 (07:43→21:29)
[2017-08-31] MEDS: PREGABALIN 75 MG CAP PO SCH ×2 (07:47→21:27)
[2017-08-31] MEDS: INSULIN ASPART 100 UNITS/ML 3 ML PEN SC SCH ×4 (08:16→21:00)
[2017-08-31] MEDS: INSULIN DETEMIR FLEXPEN/FLEX TOUCH 100 UNITS/ML 3ML SC SCH (08:16)
[2017-08-31] MEDS: FUROSEMIDE INJ 80 MG in SYRINGE 0 ML IV SCH ×2 (09:00→21:36)
[2017-08-31] MEDS: ALBUMIN HUMAN 25% 12.5 GM/50 ML VIAL IV SCH (09:14)
[2017-08-31 10:30] VITALS: BP 175/85; PULSE 75; TEMP 36.4; O2SAT 94
[2017-08-31] MEDS: FENTANYL PATCH REMOVE & WASTE SCH (11:33)
[2017-08-31] MEDS: FENTANYL 25 MCG/HR TDSY TD SCH (11:38)
[2017-08-31] MEDS ORDERED: HydrALAZINE HCL 20 MG/ML VIAL IV. PRN (11:45)
[2017-08-31] MEDS ORDERED: OXYCODONE/ACETAMINOPHEN 5-325 TAB PO ONE (12:00)
[2017-08-31 12:34] VITALS: BP 148/71
--- NOTE | 2017-08-31 15:27 | Nephrology Progress Note ---
Nephrology Progress Note Date of Service: Aug 31, 2017. Subjective 56-year-old male with significant lymphedema with chronic wounds over the lower extremities with underlying cardiomyopathy, diabetes, CKD, AFib with pacemaker, and DVTs with recurrent lower extremity cellulitis. Today patient is seated comfortably getting his wound dressings changed. Patient states that his wounds and edema are looking better. reports good urine output and better mental status. He is aware of where he is but is unsure of the day of the week. He denies any SOB, nausea, or chest pain. Objective Date Time Temp Pulse Resp B/P (MAP) Pulse Ox O2 Delivery O2 Flow Rate FiO2 08/31/17 12:34 148/71 (96) 08/31/17 10:30 36.4 75 18 175/85 (115) 94 Room Air 08/31/17 08:00 Room Air 08/31/17 07:34 36.4 63 20 179/93 (121) 94 Room Air 08/31/17 00:40 Room Air 08/30/17 23:24 36.6 62 16 144/75 (98) 92 Room Air 08/30/17 20:30 99 Room Air 08/30/17 16:00 99 Room Air Physical Exam: General: Alert, no distress, well nourished and well developed Head: Normocephalic, No masses, lesions, tenderness, or abnormalities ENT: no scleral icterus, moist mucosal membranes Neck: Supple Heart: Regular rate and rhythm, no murmurs, no gallops Lungs: clear to auscultation Abdomen: +ascites, +Bowel Sounds Extremities: marked edema b/l le 3+ RLE and 2+ LLE. multiple wounds both sides. per wound care edema in LLE much improved but right is still edematous and wound more exacerbated. Neuro Exam: Alert and oriented x 3 with fluent speech, no focal motor/sensory deficits Current Inpatient Medications Medications (Trade) Dose Ordered Sig/Miguel Route Start Time Stop Time Status Last Admin Dose Admin Acetaminophen (Tylenol Tab) 650 mg Q4H PRN PO 08/29/17 21:45 09/28/17 21:44 Insulin Aspart (novoLOG ASPART) SLIDING SCALE If C... ACHS SC 08/30/17 06:30 09/29/17 06:59 08/31/17 12:12 4 UNITS Glucose (Glucose 40% Gel) 15-30 GRAMS 15 GRAMS... UD PRN PO 08/29/17 21:45 09/28/17 21:44 Glucose (Glucose Chew Tab) 4-8 Tablets 4 Tabl... UD PRN PO 08/29/17 21:45 09/28/17 21:44 Dextrose (Dextrose 50% 50ML Syringe) 25-50ML OF 50% DW IV FOR... UD PRN IV 08/29/17 21:45 09/28/17 21:44 Glucagon (Glucagon Inj) 1 mg UD PRN SQ 08/29/17 21:45 09/28/17 21:44 Atorvastatin Calcium (Lipitor Tab) 80 mg HS PO 08/30/17 21:00 09/29/17 20:59 08/30/17 22:00 80 MG Carvedilol (Coreg Tab) 25 mg BID PO 08/30/17 09:00 09/29/17 08:59 08/31/17 07:43 25 MG Lactobacillus Acidophilus (Floranex Tab) 2 tab BIDM PO 08/30/17 08:00 09/29/17 07:59 08/31/17 07:42 2 TAB Levothyroxine Sodium (Synthroid Tab) 37.5 mcg DAILYBB PO 08/30/17 06:30 09/29/17 06:29 08/31/17 05:48 37.5 MCG Loratadine (Claritin Tab) 10 mg DAILY PO 08/30/17 09:00 09/29/17 08:59 08/31/17 07:43 10 MG Multivitamins/ Minerals (Multivitamin W/ Minerals Tab) 1 tab QAM PO 08/30/17 09:00 09/29/17 08:59 08/31/17 07:43 1 TAB Pregabalin (Lyrica Cap) 75 mg BID PO 08/29/17 23:00 09/28/17 22:59 08/31/17 07:47 75 MG Senna/Docusate Sodium (Senokot S Tab) 2 tab HS PO 08/30/17 21:00 09/29/17 20:59 08/30/17 22:00 2 TAB Tamsulosin HCl (Flomax Cap) 0.4 mg HS PO 08/30/17 21:00 09/29/17 20:59 08/30/17 22:00 0.4 MG Trazodone HCl (Desyrel Tab) 50 mg HS PO 08/29/17 23:00 09/28/17 22:59 08/30/17 22:00 50 MG Ursodiol (Actigall Cap) 300 mg BID PO 08/30/17 09:00 09/29/17 08:59 08/31/17 07:42 300 MG Venlafaxine HCl (effeXOR EXTENDED REL CAP) 75 mg QAM PO 08/30/17 09:00 09/29/17 08:59 08/31/17 07:43 75 MG Pantoprazole Sodium (Protonix Tab) 40 mg QAM PO 08/30/17 09:00 09/29/17 08:59 08/31/17 07:43 40 MG Polyethylene (Miralax Powder Packet) 17 gm QAM PO 08/30/17 09:00 09/29/17 08:59 08/31/17 07:42 17 GM Insulin Detemir (Levemir Flexpen/ FlexTouch) 5 units DAILY SC 08/30/17 09:00 09/29/17 08:59 08/31/17 08:16 5 UNITS Aztreonam (Consult) 1 ea UD PRN N/A 08/29/17 23:00 09/28/17 22:59 Tramadol HCl (Ultram Tab) 25 mg Q6H PRN PO 08/29/17 21:45 09/28/17 21:44 Prochlorperazine Edisylate 5 mg/ Syringe 5 ml @ 5 mls/min Q6H PRN IV 08/29/17 21:45 09/28/17 21:44 Albuterol/ Ipratropium (Duoneb) 3 ml Q2H PRN INH 08/29/17 22:00 09/28/17 21:59 Aztreonam 2000 mg/ Dextrose 110 ml @ 110 mls/hr Q8H IV 08/30/17 00:00 09/09/17 00:00 08/31/17 07:48 110 MLS/HR Miscellaneous Information (Consult) 1 ea UD PRN N/A 08/29/17 23:00 09/28/17 22:59 Heparin Sodium (Porcine) (Heparin 10 Unit/ ml 5 ml Flush) 5 ml PRN PRN FLUSH 08/30/17 01:30 09/29/17 01:29 08/30/17 03:23 5 ML Vancomycin HCl 1750 mg/Sodium Chloride 535 ml @ 200 mls/hr DAILY@0200 IV 08/31/17 02:00 09/10/17 01:59 08/31/17 02:00 200 MLS/HR Furosemide 80 mg/ Syringe 8 ml @ 4 mls/min BID IV 08/30/17 21:00 09/29/17 20:59 08/31/17 09:00 4 MLS/MIN Albumin Human (Albumin 25%) 12.5 gm DAILY IV 08/31/17 09:00 09/03/17 08:59 08/31/17 09:14 12.5 GM Miconazole Nitrate (Desenex Powder) 1 appln BID PRN EXT 08/30/17 15:30 09/29/17 15:29 Fentanyl (Duragesic Patch) 25 mcg Q3D@0900 TD 08/31/17 12:00 09/14/17 11:59 08/31/17 11:38 25 MCG Miscellaneous (Fentanyl Patch Remove & Waste) 1 ea Q3D@0859 N/A 08/31/17 11:59 09/30/17 11:58 Miscellaneous Information (Check Fentanyl Patch Placement) 1 ea QS N/A 08/31/17 16:00 09/30/17 15:59 Hydralazine HCl (HydrALAZINE INJ) 10 mg Q6 PRN IV. 08/31/17 11:45 09/30/17 11:44 08/31/17 11:38 10 MG Last 24 Hours Test 08/30/17 16:52 08/30/17 20:24 08/31/17 06:17 08/31/17 07:57 Bedside Glucose 135 mg/dl 151 mg/dl 132 mg/dl White Blood Count 6.30 K/uL Red Blood Count 3.52 M/uL Hemoglobin 9.0 g/dL Hematocrit 29.6 % Mean Corpuscular Volume 84.1 fL Mean Corpuscular Hemoglobin 25.6 pg Mean Corpuscular Hemoglobin Concent 30.4 g/dl RDW Standard Deviation 56.4 fL RDW Coefficient of Variation 18.4 % Platelet Count 207 K/uL Mean Platelet Volume 10.0 fL Prothrombin Time 56.5 SECONDS Prothromb Time International Ratio 5.6 Sodium Level 142 mmol/L Potassium Level 3.7 mmol/L Chloride Level 107 mmol/L Carbon Dioxide Level 25 mmol/L Anion Gap 10.0 mmol/L Blood Urea Nitrogen 71 mg/dl Creatinine 2.32 mg/dl Est Creatinine Clear Calc Drug Dose 60.2 ml/min Estimated GFR () 34.9 Estimated GFR (Non- 30.1 BUN/Creatinine Ratio 30.4 Random Glucose 126 mg/dl Calcium Level 8.2 mg/dl Test 08/31/17 11:55 Bedside Glucose 173 mg/dl Other Studies: 08/30/17 08/31/17 09/01/17 08:00 08:00 08:00 Intake Total 830 ml 345 ml Output Total 950 ml 1450 ml Balance -120 ml -1105 ml Assessment & Plan CKD stage IV. normal creatinine for patient is 2's to low 3's. patient is holding relatively steady since yesterday at 2.32 despite diuretic use. Will continue to utilize both lasix and albumin for continued improvement of volume status. edema is improved compared to previous hospital visits. This patient was seen and treated with direct collaboration with Dr. Tucker. Thank you for the opportunity to participate in this patient's care. Appreciate the Consult. ATTENDING NOTE: I performed a history and physical examination of the patient, including specifically on history-pt edema improving but still with significant edema, on physical exam-+edema right>left, and my impression and plan are ckd stage 4- continue current diuretics with albumin and ok if creatinine trends up. I have discussed the patient's management with Keri Acosta PA-C, Please refer to above note for the documented findings and plan of care. Neema Tucker DO
[2017-08-31] MEDS: CHECK FENTANYL PATCH PLACEMENT SCH (16:06)
[2017-08-31 16:36] VITALS: BP 130/75; PULSE 64; TEMP 36.7; O2SAT 92
--- NOTE | 2017-08-31 19:47 | Progress Note ---
Medicine Progress Note Date & Time of Visit: Aug 31, 2017 at 13:44. Subjective Pt was seen and examined Sitting in bed with no distress Pt said that he feels fine Denies any complaints Objective Last 8 Hrs Date Time Temp Pulse Resp B/P (MAP) Pulse Ox O2 Delivery O2 Flow Rate FiO2 08/31/17 16:36 36.7 64 18 130/75 (93) 92 Room Air 08/31/17 16:00 Room Air 08/31/17 12:34 148/71 (96) Physical Exam: General- No acute distress Head- atraumatic Eyes- PERRL, EOMI ENT- oropharynx clear Neck- supple, no JVD Lungs- clear to auscultation Heart- regular rhythm Abdomen- normal bowel sounds, soft Extremities-+edema, no calf tenderness, B/L LE wound sipping and dry crusting Neuro- alert, oriented x 3; PERRL, EOMI Skin- warm & dry Laboratory Results: Last 24 Hours Test 08/30/17 20:24 08/31/17 06:17 08/31/17 07:57 08/31/17 11:55 Bedside Glucose 151 mg/dl 132 mg/dl 173 mg/dl White Blood Count 6.30 K/uL Red Blood Count 3.52 M/uL Hemoglobin 9.0 g/dL Hematocrit 29.6 % Mean Corpuscular Volume 84.1 fL Mean Corpuscular Hemoglobin 25.6 pg Mean Corpuscular Hemoglobin Concent 30.4 g/dl RDW Standard Deviation 56.4 fL RDW Coefficient of Variation 18.4 % Platelet Count 207 K/uL Mean Platelet Volume 10.0 fL Prothrombin Time 56.5 SECONDS Prothromb Time International Ratio 5.6 Sodium Level 142 mmol/L Potassium Level 3.7 mmol/L Chloride Level 107 mmol/L Carbon Dioxide Level 25 mmol/L Anion Gap 10.0 mmol/L Blood Urea Nitrogen 71 mg/dl Creatinine 2.32 mg/dl Est Creatinine Clear Calc Drug Dose 60.2 ml/min Estimated GFR () 34.9 Estimated GFR (Non- 30.1 BUN/Creatinine Ratio 30.4 Random Glucose 126 mg/dl Calcium Level 8.2 mg/dl Test 08/31/17 16:21 Bedside Glucose 159 mg/dl Assessment & Plan Altered mental status? Seems like pt was upset and did not want to cooperate he seems to be at is baseline Resolved Bilateral lower extremity swelling: Multifactorial with h/o lymphedema, CHF, CKD, DM type 2 Refused trujillo to monitor I/O On 1L fluid restriction Continue Lasix 80mg BID Continue albumin Continue monitor renal function Clinically improved Nephrology on board Continue monitor BMP B/L LE wound Multiple hospital admission Grew multiple resistant organisms in the past Continue daily wound care Wound has been improved since last admission Continue Azactam and vanco Blood cx pending stable Multiple pressure ulcers in sacrum/ B/L LE has been stable Continue daily wound care Chronic Anemia Hb 9 Continue monitor CBC Stable Chronic systolic/diastolic HF Asymptomatic. Last Echo in Mar 2017 showed EF of 55-60%, mild concentric LVH, left atrium severely dilated Continue Lasix 80mg BID Continue 1L fluid restriction continue monitor BMP twice weekly HYPOKALEMIA K3.7 K replaced Monitor BMP DM II: Hgb a1c of 7.7 in May 2017 On Levemir subq Continue Insulin coverage Continue monitor BS Chronic A Fib: Rate is controlled INR 5.6 hold coumadin Continue monitor lNR BART on CKD Stage IV: Creatine on admission 2.7 Baseline GFR ~30, Cr 2.4 Creatine 2.3 today Continue monitor BMP Stable H/o R DVT/PE: Hold Coumadin INR 5.6 HTN: Stable Continue home meds Hypothyroidism: Levothyroxine increased to 37.5 Stable DVT px Hold Coumadin INR 5.6 CODE STATUS FULL CODE Current Inpatient Medications: Current Inpatient Medications Medications (Trade) Dose Ordered Sig/Migeul Route Start Time Stop Time Status Last Admin Dose Admin Acetaminophen (Tylenol Tab) 650 mg Q4H PRN PO 08/29/17 21:45 09/28/17 21:44 Insulin Aspart (novoLOG ASPART) SLIDING SCALE If C... ACHS SC 08/30/17 06:30 09/29/17 06:59 08/31/17 17:08 2 UNITS Glucose (Glucose 40% Gel) 15-30 GRAMS 15 GRAMS... UD PRN PO 08/29/17 21:45 09/28/17 21:44 Glucose (Glucose Chew Tab) 4-8 Tablets 4 Tabl... UD PRN PO 08/29/17 21:45 09/28/17 21:44 Dextrose (Dextrose 50% 50ML Syringe) 25-50ML OF 50% DW IV FOR... UD PRN IV 08/29/17 21:45 2/15/18 21:44 Glucagon (Glucagon Inj) 1 mg UD PRN SQ 08/29/17 21:45 09/28/17 21:44 Atorvastatin Calcium (Lipitor Tab) 80 mg HS PO 08/30/17 21:00 09/29/17 20:59 08/30/17 22:00 80 MG Carvedilol (Coreg Tab) 25 mg BID PO 08/30/17 09:00 09/29/17 08:59 08/31/17 07:43 25 MG Lactobacillus Acidophilus (Floranex Tab) 2 tab BIDM PO 08/30/17 08:00 09/29/17 07:59 08/31/17 16:07 2 TAB Levothyroxine Sodium (Synthroid Tab) 37.5 mcg DAILYBB PO 08/30/17 06:30 09/29/17 06:29 08/31/17 05:48 37.5 MCG Loratadine (Claritin Tab) 10 mg DAILY PO 08/30/17 09:00 09/29/17 08:59 08/31/17 07:43 10 MG Multivitamins/ Minerals (Multivitamin W/ Minerals Tab) 1 tab QAM PO 08/30/17 09:00 09/29/17 08:59 08/31/17 07:43 1 TAB Pregabalin (Lyrica Cap) 75 mg BID PO 08/29/17 23:00 09/28/17 22:59 08/31/17 07:47 75 MG Senna/Docusate Sodium (Senokot S Tab) 2 tab HS PO 08/30/17 21:00 09/29/17 20:59 08/30/17 22:00 2 TAB Tamsulosin HCl (Flomax Cap) 0.4 mg HS PO 08/30/17 21:00 09/29/17 20:59 08/30/17 22:00 0.4 MG Trazodone HCl (Desyrel Tab) 50 mg HS PO 08/29/17 23:00 09/28/17 22:59 08/30/17 22:00 50 MG Ursodiol (Actigall Cap) 300 mg BID PO 08/30/17 09:00 09/29/17 08:59 08/31/17 07:42 300 MG Venlafaxine HCl (effeXOR EXTENDED REL CAP) 75 mg QAM PO 08/30/17 09:00 09/29/17 08:59 08/31/17 07:43 75 MG Pantoprazole Sodium (Protonix Tab) 40 mg QAM PO 08/30/17 09:00 09/29/17 08:59 08/31/17 07:43 40 MG Polyethylene (Miralax Powder Packet) 17 gm QAM PO 08/30/17 09:00 09/29/17 08:59 08/31/17 07:42 17 GM Insulin Detemir (Levemir Flexpen/ FlexTouch) 5 units DAILY SC 08/30/17 09:00 09/29/17 08:59 08/31/17 08:16 5 UNITS Aztreonam (Consult) 1 ea UD PRN N/A 08/29/17 23:00 09/28/17 22:59 Tramadol HCl (Ultram Tab) 25 mg Q6H PRN PO 08/29/17 21:45 09/28/17 21:44 Prochlorperazine Edisylate 5 mg/ Syringe 5 ml @ 5 mls/min Q6H PRN IV 08/29/17 21:45 09/28/17 21:44 Albuterol/ Ipratropium (Duoneb) 3 ml Q2H PRN INH 08/29/17 22:00 09/28/17 21:59 Aztreonam 2000 mg/ Dextrose 110 ml @ 110 mls/hr Q8H IV 08/30/17 00:00 09/09/17 00:00 08/31/17 16:07 110 MLS/HR Miscellaneous Information (Consult) 1 ea UD PRN N/A 08/29/17 23:00 09/28/17 22:59 Heparin Sodium (Porcine) (Heparin 10 Unit/ ml 5 ml Flush) 5 ml PRN PRN FLUSH 08/30/17 01:30 09/29/17 01:29 08/30/17 03:23 5 ML Vancomycin HCl 1750 mg/Sodium Chloride 535 ml @ 200 mls/hr DAILY@0200 IV 08/31/17 02:00 09/10/17 01:59 08/31/17 02:00 200 MLS/HR Furosemide 80 mg/ Syringe 8 ml @ 4 mls/min BID IV 08/30/17 21:00 09/29/17 20:59 08/31/17 09:00 4 MLS/MIN Albumin Human (Albumin 25%) 12.5 gm DAILY IV 08/31/17 09:00 09/03/17 08:59 08/31/17 09:14 12.5 GM Miconazole Nitrate (Desenex Powder) 1 appln BID PRN EXT 08/30/17 15:30 09/29/17 15:29 Fentanyl (Duragesic Patch) 25 mcg Q3D@0900 TD 08/31/17 12:00 09/14/17 11:59 08/31/17 11:38 25 MCG Miscellaneous (Fentanyl Patch Remove & Waste) 1 ea Q3D@0859 N/A 08/31/17 11:59 09/30/17 11:58 Miscellaneous Information (Check Fentanyl Patch Placement) 1 ea QS N/A 08/31/17 16:00 09/30/17 15:59 08/31/17 16:06 1 EA Hydralazine HCl (HydrALAZINE INJ) 10 mg Q6 PRN IV. 08/31/17 11:45 09/30/17 11:44 08/31/17 11:38 10 MG
[2017-08-31] MEDS: ATORVASTATIN 40 MG TAB PO SCH (21:27)
[2017-08-31] MEDS: OXYCODONE/ACETAMINOPHEN 5-325 TAB PO PRN (21:27)
[2017-08-31] MEDS: DOCUSATE SODIUM/SENNA 50/8.6MG TAB PO SCH (21:28)
[2017-08-31] MEDS: TAMSULOSIN HCL 0.4 MG CAP PO SCH (21:28)
[2017-08-31] MEDS: TRAZODONE HCL 50 MG TAB PO SCH (21:29)
[2017-08-31] MEDS ORDERED: LORATADINE 10 MG TAB PO ONE (21:45)
[2017-08-31] MEDS ORDERED: hydrOXYzine HCL 25 MG TAB PO ONE (22:00)
[2017-08-31 23:07] VITALS: BP 129/78; PULSE 65; TEMP 36.8; O2SAT 94
[2017-09-01] MEDS: AZTREONAM 2000 MG in DEXTROSE 5% 100 ML IV SCH ×4 (00:09→23:26)
[2017-09-01] MEDS: CHECK FENTANYL PATCH PLACEMENT SCH ×4 (00:09→23:13)
[2017-09-01] MEDS: VANCOMYCIN INJ 1,750 MG in SODIUM CHLORIDE 0.9% 500ML 500 ML IV SCH (02:21)
[2017-09-01] MEDS: LEVOTHYROXINE 75 MCG TAB PO SCH (05:39)
--- NOTE | 2017-09-01 06:41 | DIAGNOSTIC IMAGING REPORT ---
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 A dose lowering technique was utilized adhering to the principles of ALARA. Comparison: 08/29/2017 Findings: The paranasal sinuses and mastoid air cells are clear. The calvarium and skull base are intact. The ventricles and sulci are within normal limits. There is no mass, hematoma, midline shift, or acute infarct. Moderate chronic small vessel change of the periventricular and deep white matter regions. This is unchanged from the prior study. Impression: Chronic and age-related change. No acute process. The above report was generated using voice recognition software. It may contain grammatical, syntax or spelling errors. Electronically signed by: Asa Hutton M.D. 09/01/2017 6:39 AM Dictated Date/Time: 09/01/2017 6:38 AM
--- NOTE | 2017-09-01 07:16 | DIAGNOSTIC IMAGING REPORT ---
CT NECK HISTORY: neck pain TECHNIQUE: Multiaxial CT images of the neck were performed without the use of intravenous contrast. COMPARISON STUDY: None. FINDINGS: The visualized brain parenchyma and orbits are unremarkable. The thyroid gland is mildly enlarged and slightly heterogeneous. Left-sided dual-chamber pacemaker wires are partially visualized. The mucosal airway surfaces are intact. Prevertebral soft tissues and the epiglottis are normal in thickness. The unenhanced parotid and submandibular glands are symmetric. No significant cervical lymphadenopathy. No masses or loculated fluid collections identified on this noncontrast study. The lungs are clear. Degenerative changes seen within the cervical spine most pronounced at the C4-C5 and C5-C6 level. No fractures identified. Mild mucosal thickening within the maxillary sinuses. The mastoid air cells are clear. IMPRESSION: Degenerative changes seen within the cervical spine at C4-C5 and C5-C6. Otherwise, no significant abnormality identified within the neck. Electronically signed by: Kike Shelton M.D. 09/01/2017 7:15 AM Dictated Date/Time: 09/01/2017 7:11 AM
[2017-09-01 07:30] VITALS: BP 155/82; PULSE 63; TEMP 36.4; O2SAT 96
[2017-09-01] MEDS: URSODIOL 300 MG CAP PO SCH ×2 (07:36→21:53)
[2017-09-01] MEDS: PANTOprazole SOD 40 MG TAB PO SCH (07:36)
[2017-09-01] MEDS: CARVEDILOL 25 MG TAB PO SCH ×2 (07:36→21:54)
[2017-09-01] MEDS: LACTOBACILLUS ACIDOPHILUS (FLORANEX) TAB PO SCH ×2 (07:37→15:48)
[2017-09-01] MEDS: LORATADINE 10 MG TAB PO SCH (07:37)
[2017-09-01] MEDS: CEROVITE ADV FORMULA TAB PO SCH (07:37)
[2017-09-01] MEDS: POLYETHYLENE (MIRALAX) 17 GM PACK PO SCH (07:37)
[2017-09-01] MEDS: PREGABALIN 75 MG CAP PO SCH ×2 (07:37→21:54)
[2017-09-01] MEDS: VENLAFAXINE HCL XR 75 MG CAPXR PO SCH (07:38)
[2017-09-01] MEDS: OXYCODONE/ACETAMINOPHEN 5-325 TAB PO PRN (07:39)
[2017-09-01] MEDS: ALBUMIN HUMAN 25% 12.5 GM/50 ML VIAL IV SCH (07:39)
[2017-09-01] MEDS: FUROSEMIDE INJ 80 MG in SYRINGE 0 ML IV SCH ×3 (07:48→21:53)
[2017-09-01 08:19] LABS: INR 3.7 (0.9-1.1)
[2017-09-01 08:42] LABS: CALCIUM 8.3 mg/dl (8.5-10.1); CREATININE 2.32 mg/dl (0.60-1.40); POTASSIUM 3.4 mmol/L (3.5-5.1)
[2017-09-01] MEDS: INSULIN ASPART 100 UNITS/ML 3 ML PEN SC SCH ×4 (08:43→21:00)
[2017-09-01] MEDS: INSULIN DETEMIR FLEXPEN/FLEX TOUCH 100 UNITS/ML 3ML SC SCH (08:44)
[2017-09-01 08:53] VITALS: BP 124/76; PULSE 64; TEMP 36.4; O2SAT 95
[2017-09-01] MEDS ORDERED: POTASSIUM CHLORIDE 20 MEQ TABCR PO STA (10:33)
--- NOTE | 2017-09-01 10:39 | Nephrology Progress Note ---
Nephrology Progress Note Date of Service: Sep 01, 2017. Subjective 56-year-old male with significant lymphedema with chronic wounds over the lower extremities with underlying cardiomyopathy, diabetes, CKD, AFib with pacemaker, and DVTs with recurrent lower extremity cellulitis. Patient is seated comfortably with feet down. states that they were just like that because he was just eating. reports that he does try to have them up when he can. with c/d dressings. continues to have good urine output. Oriented appropriately. He denies any SOB, nausea, or chest pain. Objective Date Time Temp Pulse Resp B/P (MAP) Pulse Ox O2 Delivery O2 Flow Rate FiO2 09/01/17 08:53 36.4 64 18 124/76 (92) 95 Room Air 09/01/17 08:00 Room Air 09/01/17 07:30 36.4 63 16 155/82 (106) 96 09/01/17 00:30 Room Air 08/31/17 23:07 36.8 65 18 129/78 (95) 94 Room Air 08/31/17 20:30 Room Air 08/31/17 16:36 36.7 64 18 130/75 (93) 92 Room Air 08/31/17 16:00 Room Air 08/31/17 12:34 148/71 (96) 08/31/17 10:30 36.4 75 18 175/85 (115) 94 Room Air Physical Exam: General: Alert, no distress, well nourished and well developed Head: Normocephalic, No masses, lesions, tenderness, or abnormalities ENT: no scleral icterus, moist mucosal membranes Neck: Supple Heart: Regular rate and rhythm, no murmurs, no gallops Lungs: clear to auscultation Abdomen: +ascites, +Bowel Sounds Extremities: marked edema b/l le 3+ RLE and 2+ LLE. multiple wounds both sides. unchanged since yesterday. Neuro Exam: Alert and oriented x 3 with fluent speech, no focal motor/sensory deficits Current Inpatient Medications Medications (Trade) Dose Ordered Sig/Miguel Route Start Time Stop Time Status Last Admin Dose Admin Acetaminophen (Tylenol Tab) 650 mg Q4H PRN PO 08/29/17 21:45 09/28/17 21:44 Insulin Aspart (novoLOG ASPART) SLIDING SCALE If C... ACHS SC 08/30/17 06:30 09/29/17 06:59 09/01/17 08:43 3 UNITS Glucose (Glucose 40% Gel) 15-30 GRAMS 15 GRAMS... UD PRN PO 08/29/17 21:45 09/28/17 21:44 Glucose (Glucose Chew Tab) 4-8 Tablets 4 Tabl... UD PRN PO 08/29/17 21:45 09/28/17 21:44 Dextrose (Dextrose 50% 50ML Syringe) 25-50ML OF 50% DW IV FOR... UD PRN IV 08/29/17 21:45 09/28/17 21:44 Glucagon (Glucagon Inj) 1 mg UD PRN SQ 08/29/17 21:45 09/28/17 21:44 Atorvastatin Calcium (Lipitor Tab) 80 mg HS PO 08/30/17 21:00 09/29/17 20:59 08/31/17 21:27 80 MG Carvedilol (Coreg Tab) 25 mg BID PO 08/30/17 09:00 09/29/17 08:59 09/01/17 07:36 25 MG Lactobacillus Acidophilus (Floranex Tab) 2 tab BIDM PO 08/30/17 08:00 09/29/17 07:59 09/01/17 07:37 2 TAB Levothyroxine Sodium (Synthroid Tab) 37.5 mcg DAILYBB PO 08/30/17 06:30 09/29/17 06:29 09/01/17 05:39 37.5 MCG Loratadine (Claritin Tab) 10 mg DAILY PO 08/30/17 09:00 09/29/17 08:59 09/01/17 07:37 10 MG Multivitamins/ Minerals (Multivitamin W/ Minerals Tab) 1 tab QAM PO 08/30/17 09:00 09/29/17 08:59 09/01/17 07:37 1 TAB Pregabalin (Lyrica Cap) 75 mg BID PO 08/29/17 23:00 09/28/17 22:59 09/01/17 07:37 75 MG Senna/Docusate Sodium (Senokot S Tab) 2 tab HS PO 08/30/17 21:00 09/29/17 20:59 08/31/17 21:28 2 TAB Tamsulosin HCl (Flomax Cap) 0.4 mg HS PO 08/30/17 21:00 09/29/17 20:59 08/31/17 21:28 0.4 MG Trazodone HCl (Desyrel Tab) 50 mg HS PO 08/29/17 23:00 09/28/17 22:59 08/31/17 21:29 50 MG Ursodiol (Actigall Cap) 300 mg BID PO 08/30/17 09:00 09/29/17 08:59 09/01/17 07:36 300 MG Venlafaxine HCl (effeXOR EXTENDED REL CAP) 75 mg QAM PO 08/30/17 09:00 09/29/17 08:59 09/01/17 07:38 75 MG Pantoprazole Sodium (Protonix Tab) 40 mg QAM PO 08/30/17 09:00 09/29/17 08:59 09/01/17 07:36 40 MG Polyethylene (Miralax Powder Packet) 17 gm QAM PO 08/30/17 09:00 09/29/17 08:59 09/01/17 07:37 17 GM Insulin Detemir (Levemir Flexpen/ FlexTouch) 5 units DAILY SC 08/30/17 09:00 09/29/17 08:59 09/01/17 08:44 5 UNITS Aztreonam (Consult) 1 ea UD PRN N/A 08/29/17 23:00 09/28/17 22:59 Tramadol HCl (Ultram Tab) 25 mg Q6H PRN PO 08/29/17 21:45 09/28/17 21:44 Prochlorperazine Edisylate 5 mg/ Syringe 5 ml @ 5 mls/min Q6H PRN IV 08/29/17 21:45 09/28/17 21:44 Albuterol/ Ipratropium (Duoneb) 3 ml Q2H PRN INH 08/29/17 22:00 09/28/17 21:59 Aztreonam 2000 mg/ Dextrose 110 ml @ 110 mls/hr Q8H IV 08/30/17 00:00 09/09/17 00:00 09/01/17 08:42 110 MLS/HR Miscellaneous Information (Consult) 1 ea UD PRN N/A 08/29/17 23:00 09/28/17 22:59 Heparin Sodium (Porcine) (Heparin 10 Unit/ ml 5 ml Flush) 5 ml PRN PRN FLUSH 08/30/17 01:30 09/29/17 01:29 08/30/17 03:23 5 ML Vancomycin HCl 1750 mg/Sodium Chloride 535 ml @ 200 mls/hr DAILY@0200 IV 08/31/17 02:00 09/10/17 01:59 09/01/17 02:21 200 MLS/HR Furosemide 80 mg/ Syringe 8 ml @ 4 mls/min BID IV 08/30/17 21:00 09/29/17 20:59 09/01/17 07:48 4 MLS/MIN Albumin Human (Albumin 25%) 12.5 gm DAILY IV 08/31/17 09:00 09/03/17 08:59 09/01/17 07:39 12.5 GM Miconazole Nitrate (Desenex Powder) 1 appln BID PRN EXT 08/30/17 15:30 09/29/17 15:29 Fentanyl (Duragesic Patch) 25 mcg Q3D@0900 TD 08/31/17 12:00 09/14/17 11:59 08/31/17 11:38 25 MCG Miscellaneous (Fentanyl Patch Remove & Waste) 1 ea Q3D@0859 N/A 08/31/17 11:59 09/30/17 11:58 Miscellaneous Information (Check Fentanyl Patch Placement) 1 ea QS N/A 08/31/17 16:00 09/30/17 15:59 09/01/17 07:37 1 EA Hydralazine HCl (HydrALAZINE INJ) 10 mg Q6 PRN IV. 08/31/17 11:45 09/30/17 11:44 08/31/17 11:38 10 MG Oxycodone/ Acetaminophen (Percocet 5-325mg Tab) pain not relieved by tylenol Q6H PRN PO 08/31/17 20:15 09/14/17 20:14 09/01/17 07:39 2 TAB Last 24 Hours Test 08/31/17 11:55 08/31/17 16:21 08/31/17 20:15 09/01/17 07:42 Bedside Glucose 173 mg/dl 159 mg/dl 159 mg/dl 126 mg/dl Test 09/01/17 07:44 Prothrombin Time 37.8 SECONDS Prothromb Time International Ratio 3.7 Sodium Level 141 mmol/L Potassium Level 3.4 mmol/L Chloride Level 107 mmol/L Carbon Dioxide Level 23 mmol/L Anion Gap 12.0 mmol/L Blood Urea Nitrogen 69 mg/dl Creatinine 2.32 mg/dl Est Creatinine Clear Calc Drug Dose 60.2 ml/min Estimated GFR () 34.9 Estimated GFR (Non- 30.1 BUN/Creatinine Ratio 29.6 Random Glucose 127 mg/dl Calcium Level 8.3 mg/dl Other Studies: 08/31/17 09/01/17 09/02/17 08:00 08:00 08:00 Intake Total 830 ml 985 ml Output Total 950 ml 1675 ml Balance -120 ml -690 ml Assessment & Plan CKD stage IV. normal creatinine for patient is 2's to low 3's. patient is unchanged since yesterday at 2.32 despite diuretic use. Will continue to utilize both lasix and albumin for continued improvement of volume status. will monitor kidney function. continues to net lose fluid although difficult to assess visually because of large body habitus. edema is improved compared to previous hospital visits. Hypokalemia. Potassium 3.4. would continue to replete. received 20meQ potassium two days ago. refused dose yesterday per nurse note. will attempt to give again today and continue to follow. This patient was seen and treated with direct collaboration with Dr. Tucker. Thank you for the opportunity to participate in this patient's care. Appreciate the Consult. ATTENDING NOTE: I performed a history and physical examination of the patient, including specifically on history- pt comfortable,on physical exam-chronic lower extremity edema with erythema, and my impression and plan are ckd with lymphedema-continue diuretics and consider increasing the dose to help optimize volume status of the chronic lymphedema and continue to replete potassium. I have discussed the patient's management with Keri Acosta PA-C, Please refer to above note for the documented findings and plan of care. Neema Tucker DO
[2017-09-01] MEDS ORDERED: NURSING VERBAL MED ORDER ONE ×2 (13:45→17:45)
[2017-09-01] MEDS ORDERED: POTASSIUM CHLORIDE 20 MEQ TABCR PO ONE (14:00)
[2017-09-01 15:54] VITALS: BP 150/72; PULSE 65; TEMP 36.5; O2SAT 95
[2017-09-01] MEDS: OXYCODONE HCL IR 5 MG TAB (IMMEDIATE RELEASE) PO PRN (17:50)
--- NOTE | 2017-09-01 18:57 | Progress Note ---
Medicine Progress Note Date & Time of Visit: Sep 01, 2017 at 13:48. Subjective Pt was seen and examined Sitting at the edge of the bed with no distress Pt was not very happy today because he thought he was going back to [facility] today denies any complaint Objective Last 8 Hrs Date Time Temp Pulse Resp B/P (MAP) Pulse Ox O2 Delivery O2 Flow Rate FiO2 09/01/17 16:00 Room Air 09/01/17 15:54 36.5 65 16 150/72 (98) 95 Room Air 09/01/17 12:35 36.4 64 18 95 Room Air Physical Exam: General- No acute distress Head- atraumatic Eyes- PERRL, EOMI ENT- oropharynx clear Neck- supple, no JVD Lungs- clear to auscultation Heart- regular rhythm Abdomen- normal bowel sounds, soft Extremities-+edema, no calf tenderness, B/L LE wound sipping and dry crusting Neuro- alert, oriented x 3; PERRL, EOMI Skin- warm & dry Laboratory Results: Last 24 Hours Test 08/31/17 20:15 09/01/17 07:42 09/01/17 07:44 09/01/17 11:54 Bedside Glucose 159 mg/dl 126 mg/dl 170 mg/dl Prothrombin Time 37.8 SECONDS Prothromb Time International Ratio 3.7 Sodium Level 141 mmol/L Potassium Level 3.4 mmol/L Chloride Level 107 mmol/L Carbon Dioxide Level 23 mmol/L Anion Gap 12.0 mmol/L Blood Urea Nitrogen 69 mg/dl Creatinine 2.32 mg/dl Est Creatinine Clear Calc Drug Dose 60.2 ml/min Estimated GFR () 34.9 Estimated GFR (Non- 30.1 BUN/Creatinine Ratio 29.6 Random Glucose 127 mg/dl Calcium Level 8.3 mg/dl Test 09/01/17 16:31 Bedside Glucose 161 mg/dl Assessment & Plan Altered mental status? Seems like pt was upset and did not want to cooperate he seems to be at is baseline Resolved Bilateral lower extremity swelling: Multifactorial with h/o lymphedema, CHF, CKD, DM type 2 Refused trujillo to monitor I/O On 1L fluid restriction Increase Lasix 80mg TID Continue albumin Continue monitor renal function Clinically improved Nephrology on board case discussed with Dr. Tucker recommended to continue IV diuretic Continue monitor BMP B/L LE wound Multiple hospital admission Grew multiple resistant organisms in the past Continue daily wound care Wound has been improved since last admission Continue Azactam and vanco Blood cx no growth stable Multiple pressure ulcers in sacrum/ B/L LE has been stable Continue daily wound care Chronic Anemia Hb 9 Continue monitor CBC Stable Chronic systolic/diastolic HF Asymptomatic. Last Echo in Mar 2017 showed EF of 55-60%, mild concentric LVH, left atrium severely dilated Lasix Increased to 80mg TID Continue 1L fluid restriction continue monitor BMP twice weekly HYPOKALEMIA K3.4 K replaced Monitor BMP DM II: Hgb a1c of 7.7 in May 2017 On Levemir subq Continue Insulin coverage Continue monitor BS Chronic A Fib: Rate is controlled Hold coumadin INR 3.7 Continue monitor lNR BART on CKD Stage IV: Creatine on admission 2.7 Baseline GFR ~30, Cr 2.4 Creatine 2.3 today Continue monitor BMP Stable H/o R DVT/PE: Hold Coumadin INR 3.7 HTN: Stable Continue home meds Hypothyroidism: Levothyroxine increased to 37.5 Stable DVT px Hold Coumadin INR 3.7 CODE STATUS FULL CODE Consultants: Nephro Current Inpatient Medications: Current Inpatient Medications Medications (Trade) Dose Ordered Sig/Miguel Route Start Time Stop Time Status Last Admin Dose Admin Acetaminophen (Tylenol Tab) 650 mg Q4H PRN PO 08/29/17 21:45 09/28/17 21:44 Insulin Aspart (novoLOG ASPART) SLIDING SCALE If C... ACHS SC 08/30/17 06:30 09/29/17 06:59 09/01/17 17:05 4 UNITS Glucose (Glucose 40% Gel) 15-30 GRAMS 15 GRAMS... UD PRN PO 08/29/17 21:45 09/28/17 21:44 Glucose (Glucose Chew Tab) 4-8 Tablets 4 Tabl... UD PRN PO 08/29/17 21:45 09/28/17 21:44 Dextrose (Dextrose 50% 50ML Syringe) 25-50ML OF 50% DW IV FOR... UD PRN IV 08/29/17 21:45 09/28/17 21:44 Glucagon (Glucagon Inj) 1 mg UD PRN SQ 08/29/17 21:45 09/28/17 21:44 Atorvastatin Calcium (Lipitor Tab) 80 mg HS PO 08/30/17 21:00 09/29/17 20:59 08/31/17 21:27 80 MG Carvedilol (Coreg Tab) 25 mg BID PO 08/30/17 09:00 09/29/17 08:59 09/01/17 07:36 25 MG Lactobacillus Acidophilus (Floranex Tab) 2 tab BIDM PO 08/30/17 08:00 09/29/17 07:59 09/01/17 15:48 2 TAB Levothyroxine Sodium (Synthroid Tab) 37.5 mcg DAILYBB PO 08/30/17 06:30 09/29/17 06:29 09/01/17 05:39 37.5 MCG Loratadine (Claritin Tab) 10 mg DAILY PO 08/30/17 09:00 09/29/17 08:59 09/01/17 07:37 10 MG Multivitamins/ Minerals (Multivitamin W/ Minerals Tab) 1 tab QAM PO 08/30/17 09:00 09/29/17 08:59 09/01/17 07:37 1 TAB Pregabalin (Lyrica Cap) 75 mg BID PO 08/29/17 23:00 09/28/17 22:59 09/01/17 07:37 75 MG Senna/Docusate Sodium (Senokot S Tab) 2 tab HS PO 08/30/17 21:00 09/29/17 20:59 08/31/17 21:28 2 TAB Tamsulosin HCl (Flomax Cap) 0.4 mg HS PO 08/30/17 21:00 09/29/17 20:59 08/31/17 21:28 0.4 MG Trazodone HCl (Desyrel Tab) 50 mg HS PO 08/29/17 23:00 09/28/17 22:59 08/31/17 21:29 50 MG Ursodiol (Actigall Cap) 300 mg BID PO 08/30/17 09:00 09/29/17 08:59 09/01/17 07:36 300 MG Venlafaxine HCl (effeXOR EXTENDED REL CAP) 75 mg QAM PO 08/30/17 09:00 09/29/17 08:59 09/01/17 07:38 75 MG Pantoprazole Sodium (Protonix Tab) 40 mg QAM PO 08/30/17 09:00 09/29/17 08:59 09/01/17 07:36 40 MG Polyethylene (Miralax Powder Packet) 17 gm QAM PO 08/30/17 09:00 09/29/17 08:59 09/01/17 07:37 17 GM Insulin Detemir (Levemir Flexpen/ FlexTouch) 5 units DAILY SC 08/30/17 09:00 09/29/17 08:59 09/01/17 08:44 5 UNITS Aztreonam (Consult) 1 ea UD PRN N/A 08/29/17 23:00 09/28/17 22:59 Tramadol HCl (Ultram Tab) 25 mg Q6H PRN PO 08/29/17 21:45 09/28/17 21:44 Prochlorperazine Edisylate 5 mg/ Syringe 5 ml @ 5 mls/min Q6H PRN IV 08/29/17 21:45 09/28/17 21:44 Albuterol/ Ipratropium (Duoneb) 3 ml Q2H PRN INH 08/29/17 22:00 09/28/17 21:59 Aztreonam 2000 mg/ Dextrose 110 ml @ 110 mls/hr Q8H IV 08/30/17 00:00 09/09/17 00:00 09/01/17 15:48 110 MLS/HR Miscellaneous Information (Consult) 1 ea UD PRN N/A 08/29/17 23:00 09/28/17 22:59 Heparin Sodium (Porcine) (Heparin 10 Unit/ ml 5 ml Flush) 5 ml PRN PRN FLUSH 08/30/17 01:30 09/29/17 01:29 09/01/17 14:20 5 ML Vancomycin HCl 1750 mg/Sodium Chloride 535 ml @ 200 mls/hr DAILY@0200 IV 08/31/17 02:00 09/10/17 01:59 09/01/17 02:21 200 MLS/HR Albumin Human (Albumin 25%) 12.5 gm DAILY IV 08/31/17 09:00 09/03/17 08:59 09/01/17 07:39 12.5 GM Miconazole Nitrate (Desenex Powder) 1 appln BID PRN EXT 08/30/17 15:30 09/29/17 15:29 Fentanyl (Duragesic Patch) 25 mcg Q3D@0900 TD 08/31/17 12:00 09/14/17 11:59 08/31/17 11:38 25 MCG Miscellaneous (Fentanyl Patch Remove & Waste) 1 ea Q3D@0859 N/A 08/31/17 11:59 09/30/17 11:58 Miscellaneous Information (Check Fentanyl Patch Placement) 1 ea QS N/A 08/31/17 16:00 09/30/17 15:59 09/01/17 15:43 1 EA Hydralazine HCl (HydrALAZINE INJ) 10 mg Q6 PRN IV. 08/31/17 11:45 09/30/17 11:44 08/31/17 11:38 10 MG Furosemide 80 mg/ Syringe 8 ml @ 4 mls/min TID IV 09/01/17 14:00 09/29/17 20:59 09/01/17 13:49 4 MLS/MIN Oxycodone HCl (Roxicodone Immediate Rel Tab) 5 mg Q8H PRN PO 09/01/17 18:00 09/15/17 17:59 09/01/17 17:50 5 MG
[2017-09-01] MEDS: TRAZODONE HCL 50 MG TAB PO SCH (21:53)
[2017-09-01] MEDS: TAMSULOSIN HCL 0.4 MG CAP PO SCH (21:53)
[2017-09-01] MEDS: DOCUSATE SODIUM/SENNA 50/8.6MG TAB PO SCH (21:54)
[2017-09-01] MEDS: ATORVASTATIN 40 MG TAB PO SCH (21:54)
[2017-09-01 23:22] VITALS: BP 139/80; PULSE 63; TEMP 36.2; O2SAT 94
[2017-09-01] MEDS: TRAMADOL HCL 50 MG TAB PO PRN (23:33)
[2017-09-02] VITALS (9 sets, daily range): BP systolic 121–165; BP diastolic 72–91; PULSE 61–66; TEMP 36.3–36.4; O2SAT 93–99
[2017-09-02] MEDS ORDERED: VANCOMYCIN TROUGH ONE (01:30)
[2017-09-02] MEDS: OXYCODONE HCL IR 5 MG TAB (IMMEDIATE RELEASE) PO PRN ×3 (02:42→20:25)
[2017-09-02] MEDS: VANCOMYCIN INJ 1,750 MG in SODIUM CHLORIDE 0.9% 500ML 500 ML IV SCH (02:45)
[2017-09-02] MEDS: LEVOTHYROXINE 75 MCG TAB PO SCH (05:25)
[2017-09-02 07:44] LABS: BASO ABS # 0.06 K/uL (0-0.2); EOS % 6.8 %; HEMATOCRIT 28.4 % (42-52); HEMOGLOBIN 8.6 g/dL (14.0-18.0); IG# 0.02 K/uL (0.00-0.02); LYMPH % 13.3 %; LYMPH ABS # 0.78 K/uL (1.2-3.4); MEAN CELL VOLUME 84.5 fL (80-100); MEAN CORPUSCULAR HEMOGLOBIN 25.6 pg (25-34); MEAN CORPUSCULAR HGB CONC 30.3 g/dl (32-36); MEAN PLATELET VOLUME 9.2 fL (7.4-10.4); MONO % 10.9 %; MONO ABS # 0.64 K/uL (0.11-0.59); NEUT % 67.7 %; NEUT ABS # 3.95 K/uL (1.4-6.5); PLATELET COUNT 201 K/uL (130-400); RED CELL DISTRIBUTION WIDTH CV 18.4 % (11.5-14.5); RED CELL DISTRIBUTION WIDTH SD 57.5 fL (36.4-46.3); WHITE BLOOD COUNT 5.85 K/uL (4.8-10.8)
[2017-09-02 07:54] LABS: INR 2.5 (0.9-1.1)
[2017-09-02 08:17] LABS: CALCIUM 8.1 mg/dl (8.5-10.1); CREATININE 2.24 mg/dl (0.60-1.40); POTASSIUM 3.5 mmol/L (3.5-5.1)
[2017-09-02] MEDS: ALBUMIN HUMAN 25% 12.5 GM/50 ML VIAL IV SCH (09:19)
[2017-09-02] MEDS: CHECK FENTANYL PATCH PLACEMENT SCH ×2 (09:27→16:00)
[2017-09-02] MEDS: URSODIOL 300 MG CAP PO SCH ×2 (09:34→20:15)
[2017-09-02] MEDS: LACTOBACILLUS ACIDOPHILUS (FLORANEX) TAB PO SCH ×2 (09:34→17:01)
[2017-09-02] MEDS: LORATADINE 10 MG TAB PO SCH (09:35)
[2017-09-02] MEDS: CARVEDILOL 25 MG TAB PO SCH ×2 (09:35→20:14)
[2017-09-02] MEDS: CEROVITE ADV FORMULA TAB PO SCH (09:36)
[2017-09-02] MEDS: VENLAFAXINE HCL XR 75 MG CAPXR PO SCH (09:36)
[2017-09-02] MEDS: PREGABALIN 75 MG CAP PO SCH ×2 (09:36→20:25)
[2017-09-02] MEDS: PANTOprazole SOD 40 MG TAB PO SCH (09:37)
[2017-09-02] MEDS: POLYETHYLENE (MIRALAX) 17 GM PACK PO SCH (09:37)
[2017-09-02] MEDS: INSULIN ASPART 100 UNITS/ML 3 ML PEN SC SCH ×4 (09:47→20:15)
[2017-09-02] MEDS: INSULIN DETEMIR FLEXPEN/FLEX TOUCH 100 UNITS/ML 3ML SC SCH (09:48)
[2017-09-02] MEDS: AZTREONAM 2000 MG in DEXTROSE 5% 100 ML IV SCH ×2 (10:56→17:02)
[2017-09-02] MEDS: FUROSEMIDE INJ 80 MG in SYRINGE 0 ML IV SCH ×3 (10:56→20:25)
--- NOTE | 2017-09-02 13:02 | Pharmacy Progress Note ---
Pharmacy Abx Dose Progress Nt Date of Service Sep 02, 2017. Pharmacy Dosing Scope The patient is currently receiving the following antimicrobial agents per Pharmacy consult: Vancomycin 1750 mg IV every 24 hours and Aztreonam 2 grams IV every 8 hrs Objective Height (Feet): 6 Height (Inches): 0.00 Weight (Kilograms): 185.100 Vital Signs (Past 12Hrs) Vital Signs Past 12 Hours Date Time Temp Pulse Resp B/P (MAP) Pulse Ox O2 Delivery O2 Flow Rate FiO2 09/02/17 11:09 62 139/74 (95) 09/02/17 09:15 66 121/72 (88) 09/02/17 07:39 36.4 65 20 138/78 (98) 93 Room Air Lab Results (24Hrs) Laboratory Tests (24 Hours) Test 09/02/17 07:30 White Blood Count 5.85 K/uL (4.8-10.8) Red Blood Count 3.36 M/uL (4.7-6.1) L Hemoglobin 8.6 g/dL (14.0-18.0) L Hematocrit 28.4 % (42-52) L Mean Corpuscular Volume 84.5 fL (80-100) Mean Corpuscular Hemoglobin 25.6 pg (25-34) Mean Corpuscular Hemoglobin Concent 30.3 g/dl (32-36) L Platelet Count 201 K/uL (130-400) Mean Platelet Volume 9.2 fL (7.4-10.4) Neutrophils (%) (Auto) 67.7 % Lymphocytes (%) (Auto) 13.3 % Monocytes (%) (Auto) 10.9 % Eosinophils (%) (Auto) 6.8 % Basophils (%) (Auto) 1.0 % Neutrophils # (Auto) 3.95 K/uL (1.4-6.5) Lymphocytes # (Auto) 0.78 K/uL (1.2-3.4) L Monocytes # (Auto) 0.64 K/uL (0.11-0.59) H Eosinophils # (Auto) 0.40 K/uL (0-0.5) Basophils # (Auto) 0.06 K/uL (0-0.2) Micro Results Date/Time Source Procedure Growth Status 08/29/17 19:12 Blood Blood Culture - Preliminary NO GROWTH TO DATE. Resulted 08/29/17 18:59 Blood Blood Culture - Preliminary NO GROWTH TO DATE. Resulted Risk Factors for Resistance * Resident in a [facility] or extended-care facility * Current hospitalization > 5 days * History of infection - chronic LE cellulitis/lymphedema Assessment & Plan Assessment 56 year old male with B leg wounds, chronic LE cellulitis/lymphedema receiving IV Vancomycin and IV Aztreonam for treatment of B cellulitis * Blood cultures negative to date, afebrile * Renal function - serum creatinine stable * Patient with h/o VRE * ID following noting improvement on IV Vancomycin Day # 4/ of antimicrobial therapy Plan Vancomycin IV * Trough level of 27.6 mcg/mL is supratherapeutic thus will need to widen the dosing interval * Change to 1750 mg IV every 36 hours * Goal trough level for cellulitis: 13 to 20 mcg/mL * Trough level ordered for: 09/05/17 prior to the 0200 hours dose Pharmacy will continue to follow and will adjust dose/frequency as necessary. Thank you.
[2017-09-02] MEDS ORDERED: WARFARIN SOD 2.5 MG TAB PO ONE (16:50)
--- NOTE | 2017-09-02 16:50 | Progress Note ---
Medicine Progress Note Date & Time of Visit: Sep 02, 2017 at 16:46. Subjective Pt was seen and examined Sitting in bed with no distress Denies any complaints Objective Last 8 Hrs Date Time Temp Pulse Resp B/P (MAP) Pulse Ox O2 Delivery O2 Flow Rate FiO2 09/02/17 15:49 93 Room Air 09/02/17 15:23 36.3 61 20 165/91 (115) 99 Room Air 09/02/17 11:09 62 139/74 (95) 09/02/17 09:15 66 121/72 (88) Physical Exam: General- No acute distress Head- atraumatic Eyes- PERRL, EOMI ENT- oropharynx clear Neck- supple, no JVD Lungs- clear to auscultation Heart- regular rhythm Abdomen- normal bowel sounds, soft Extremities-+edema, no calf tenderness, B/L LE wound sipping and dry crusting Neuro- alert, oriented x 3; PERRL, EOMI Skin- warm & dry Laboratory Results: Last 24 Hours Test 09/01/17 20:22 09/02/17 01:31 09/02/17 07:30 09/02/17 07:33 Bedside Glucose 177 mg/dl 108 mg/dl Vancomycin Level Trough 27.6 mcg/ml White Blood Count 5.85 K/uL Red Blood Count 3.36 M/uL Hemoglobin 8.6 g/dL Hematocrit 28.4 % Mean Corpuscular Volume 84.5 fL Mean Corpuscular Hemoglobin 25.6 pg Mean Corpuscular Hemoglobin Concent 30.3 g/dl Platelet Count 201 K/uL Mean Platelet Volume 9.2 fL Neutrophils (%) (Auto) 67.7 % Lymphocytes (%) (Auto) 13.3 % Monocytes (%) (Auto) 10.9 % Eosinophils (%) (Auto) 6.8 % Basophils (%) (Auto) 1.0 % Neutrophils # (Auto) 3.95 K/uL Lymphocytes # (Auto) 0.78 K/uL Monocytes # (Auto) 0.64 K/uL Eosinophils # (Auto) 0.40 K/uL Basophils # (Auto) 0.06 K/uL RDW Standard Deviation 57.5 fL RDW Coefficient of Variation 18.4 % Immature Granulocyte % (Auto) 0.3 % Immature Granulocyte # (Auto) 0.02 K/uL Anisocytosis PRESENT Prothrombin Time 26.1 SECONDS Prothromb Time International Ratio 2.5 Sodium Level 142 mmol/L Potassium Level 3.5 mmol/L Chloride Level 107 mmol/L Carbon Dioxide Level 23 mmol/L Anion Gap 11.0 mmol/L Blood Urea Nitrogen 66 mg/dl Creatinine 2.24 mg/dl Est Creatinine Clear Calc Drug Dose 62.1 ml/min Estimated GFR () 36.4 Estimated GFR (Non- 31.4 BUN/Creatinine Ratio 29.4 Random Glucose 109 mg/dl Calcium Level 8.1 mg/dl Test 09/02/17 11:17 Bedside Glucose 173 mg/dl Assessment & Plan Altered mental status? Seems like pt was upset and did not want to cooperate he seems to be at is baseline Resolved Bilateral lower extremity swelling: Multifactorial with h/o lymphedema, CHF, CKD, DM type 2 Refused trujillo to monitor I/O On 1.2 L fluid restriction Continue Lasix 80mg TID Continue albumin Continue monitor renal function Clinically improved Nephrology on board case discussed with Dr. Rivas recommended to continue IV diuretic Continue monitor BMP B/L LE wound Multiple hospital admission Grew multiple resistant organisms in the past Continue daily wound care Wound has been improved since last admission Continue Azactam and vanco Blood cx no growth stable Multiple pressure ulcers in sacrum/ B/L LE has been stable Continue daily wound care Chronic Anemia Hb 8.6 Continue monitor CBC Stable Chronic systolic/diastolic HF Asymptomatic. Last Echo in Mar 2017 showed EF of 55-60%, mild concentric LVH, left atrium severely dilated Lasix Increased to 80mg TID Continue 1L fluid restriction continue monitor BMP twice weekly HYPOKALEMIA K3.5 K replaced Monitor BMP DM II: Hgb a1c of 7.7 in May 2017 On Levemir subq Continue Insulin coverage Continue monitor BS Chronic A Fib: Rate is controlled Resume coumadin INR 2.5 Continue monitor lNR BART on CKD Stage IV: Creatine on admission 2.7 Baseline GFR ~30, Cr 2.4 Creatine 2.2 today Continue monitor BMP Stable H/o R DVT/PE: Resume Coumadin INR 2.5 HTN: Stable Continue home meds Hypothyroidism: Levothyroxine increased to 37.5 Stable DVT px Resume Coumadin INR 2.5 CODE STATUS FULL CODE Consultants: Nephro Current Inpatient Medications: Current Inpatient Medications Medications (Trade) Dose Ordered Sig/Miguel Route Start Time Stop Time Status Last Admin Dose Admin Acetaminophen (Tylenol Tab) 650 mg Q4H PRN PO 08/29/17 21:45 09/28/17 21:44 Insulin Aspart (novoLOG ASPART) SLIDING SCALE If C... ACHS SC 08/30/17 06:30 09/29/17 06:59 09/02/17 12:37 4 UNITS Glucose (Glucose 40% Gel) 15-30 GRAMS 15 GRAMS... UD PRN PO 08/29/17 21:45 09/28/17 21:44 Glucose (Glucose Chew Tab) 4-8 Tablets 4 Tabl... UD PRN PO 08/29/17 21:45 09/28/17 21:44 Dextrose (Dextrose 50% 50ML Syringe) 25-50ML OF 50% DW IV FOR... UD PRN IV 08/29/17 21:45 09/28/17 21:44 Glucagon (Glucagon Inj) 1 mg UD PRN SQ 08/29/17 21:45 09/28/17 21:44 Atorvastatin Calcium (Lipitor Tab) 80 mg HS PO 08/30/17 21:00 09/29/17 20:59 09/01/17 21:54 80 MG Carvedilol (Coreg Tab) 25 mg BID PO 08/30/17 09:00 09/29/17 08:59 09/02/17 09:35 25 MG Lactobacillus Acidophilus (Floranex Tab) 2 tab BIDM PO 08/30/17 08:00 09/29/17 07:59 09/02/17 09:34 2 TAB Levothyroxine Sodium (Synthroid Tab) 37.5 mcg DAILYBB PO 08/30/17 06:30 09/29/17 06:29 09/02/17 05:25 37.5 MCG Loratadine (Claritin Tab) 10 mg DAILY PO 08/30/17 09:00 09/29/17 08:59 09/02/17 09:35 10 MG Multivitamins/ Minerals (Multivitamin W/ Minerals Tab) 1 tab QAM PO 08/30/17 09:00 09/29/17 08:59 09/02/17 09:36 1 TAB Pregabalin (Lyrica Cap) 75 mg BID PO 08/29/17 23:00 09/28/17 22:59 09/02/17 09:36 75 MG Senna/Docusate Sodium (Senokot S Tab) 2 tab HS PO 08/30/17 21:00 09/29/17 20:59 09/01/17 21:54 2 TAB Tamsulosin HCl (Flomax Cap) 0.4 mg HS PO 08/30/17 21:00 09/29/17 20:59 09/01/17 21:53 0.4 MG Trazodone HCl (Desyrel Tab) 50 mg HS PO 08/29/17 23:00 09/28/17 22:59 09/01/17 21:53 50 MG Ursodiol (Actigall Cap) 300 mg BID PO 08/30/17 09:00 09/29/17 08:59 09/02/17 09:34 300 MG Venlafaxine HCl (effeXOR EXTENDED REL CAP) 75 mg QAM PO 08/30/17 09:00 09/29/17 08:59 09/02/17 09:36 75 MG Pantoprazole Sodium (Protonix Tab) 40 mg QAM PO 08/30/17 09:00 09/29/17 08:59 09/02/17 09:37 40 MG Polyethylene (Miralax Powder Packet) 17 gm QAM PO 08/30/17 09:00 09/29/17 08:59 09/02/17 09:37 17 GM Insulin Detemir (Levemir Flexpen/ FlexTouch) 5 units DAILY SC 08/30/17 09:00 09/29/17 08:59 09/02/17 09:48 5 UNITS Aztreonam (Consult) 1 ea UD PRN N/A 08/29/17 23:00 09/28/17 22:59 Tramadol HCl (Ultram Tab) 25 mg Q6H PRN PO 08/29/17 21:45 09/28/17 21:44 09/01/17 23:33 25 MG Prochlorperazine Edisylate 5 mg/ Syringe 5 ml @ 5 mls/min Q6H PRN IV 08/29/17 21:45 09/28/17 21:44 Albuterol/ Ipratropium (Duoneb) 3 ml Q2H PRN INH 08/29/17 22:00 09/28/17 21:59 Aztreonam 2000 mg/ Dextrose 110 ml @ 110 mls/hr Q8H IV 08/30/17 00:00 09/09/17 00:00 09/02/17 10:56 110 MLS/HR Miscellaneous Information (Consult) 1 ea UD PRN N/A 08/29/17 23:00 09/28/17 22:59 Heparin Sodium (Porcine) (Heparin 10 Unit/ ml 5 ml Flush) 5 ml PRN PRN FLUSH 08/30/17 01:30 09/29/17 01:29 09/02/17 12:40 5 ML Albumin Human (Albumin 25%) 12.5 gm DAILY IV 08/31/17 09:00 09/03/17 08:59 09/02/17 09:19 12.5 GM Miconazole Nitrate (Desenex Powder) 1 appln BID PRN EXT 08/30/17 15:30 09/29/17 15:29 Fentanyl (Duragesic Patch) 25 mcg Q3D@0900 TD 08/31/17 12:00 09/14/17 11:59 08/31/17 11:38 25 MCG Miscellaneous (Fentanyl Patch Remove & Waste) 1 ea Q3D@0859 N/A 08/31/17 11:59 09/30/17 11:58 Miscellaneous Information (Check Fentanyl Patch Placement) 1 ea QS N/A 08/31/17 16:00 09/30/17 15:59 09/02/17 09:27 1 EA Hydralazine HCl (HydrALAZINE INJ) 10 mg Q6 PRN IV. 08/31/17 11:45 09/30/17 11:44 08/31/17 11:38 10 MG Furosemide 80 mg/ Syringe 8 ml @ 4 mls/min TID IV 09/01/17 14:00 09/29/17 20:59 09/02/17 10:56 4 MLS/MIN Oxycodone HCl (Roxicodone Immediate Rel Tab) 5 mg Q8H PRN PO 09/01/17 18:00 09/15/17 17:59 09/02/17 11:00 5 MG Vancomycin HCl 1750 mg/Sodium Chloride 535 ml @ 200 mls/hr Q36H IV 09/03/17 14:00 09/10/17 01:59
[2017-09-02] MEDS: ATORVASTATIN 40 MG TAB PO SCH (20:13)
[2017-09-02] MEDS: DOCUSATE SODIUM/SENNA 50/8.6MG TAB PO SCH (20:14)
[2017-09-02] MEDS: TAMSULOSIN HCL 0.4 MG CAP PO SCH (20:14)
[2017-09-02] MEDS: TRAZODONE HCL 50 MG TAB PO SCH (20:14)
[2017-09-03 00:25] VITALS: BP 165/89; PULSE 63; TEMP 36.8; O2SAT 95
[2017-09-03] MEDS: CHECK FENTANYL PATCH PLACEMENT SCH ×4 (00:27→23:44)
[2017-09-03] MEDS: AZTREONAM 2000 MG in DEXTROSE 5% 100 ML IV SCH ×4 (00:27→23:44)
[2017-09-03] MEDS: TRAMADOL HCL 50 MG TAB PO PRN (00:28)
[2017-09-03 01:08] VITALS: O2SAT 93
[2017-09-03] MEDS: OXYCODONE HCL IR 5 MG TAB (IMMEDIATE RELEASE) PO PRN ×2 (04:29→13:51)
[2017-09-03] MEDS: LEVOTHYROXINE 75 MCG TAB PO SCH (06:41)
[2017-09-03 07:30] VITALS: BP 149/89; PULSE 63; TEMP 36.5; O2SAT 96
[2017-09-03 07:58] LABS: HEMATOCRIT 29.3 % (42-52); HEMOGLOBIN 8.8 g/dL (14.0-18.0); MEAN CELL VOLUME 84.2 fL (80-100); MEAN CORPUSCULAR HEMOGLOBIN 25.3 pg (25-34); MEAN PLATELET VOLUME 9.6 fL (7.4-10.4); PLATELET COUNT 208 K/uL (130-400); RED CELL DISTRIBUTION WIDTH CV 18.2 % (11.5-14.5); RED CELL DISTRIBUTION WIDTH SD 56.1 fL (36.4-46.3); WHITE BLOOD COUNT 6.58 K/uL (4.8-10.8)
[2017-09-03 08:33] LABS: CALCIUM 8.3 mg/dl (8.5-10.1); CREATININE 2.04 mg/dl (0.60-1.40); POTASSIUM 3.3 mmol/L (3.5-5.1)
[2017-09-03] MEDS: LACTOBACILLUS ACIDOPHILUS (FLORANEX) TAB PO SCH ×2 (08:52→17:16)
[2017-09-03] MEDS: CEROVITE ADV FORMULA TAB PO SCH (08:52)
[2017-09-03] MEDS: LORATADINE 10 MG TAB PO SCH (08:52)
[2017-09-03] MEDS: CARVEDILOL 25 MG TAB PO SCH ×2 (08:53→21:48)
[2017-09-03] MEDS: PANTOprazole SOD 40 MG TAB PO SCH (08:54)
[2017-09-03] MEDS: POLYETHYLENE (MIRALAX) 17 GM PACK PO SCH (08:55)
[2017-09-03] MEDS: URSODIOL 300 MG CAP PO SCH ×2 (08:55→21:45)
[2017-09-03] MEDS: VENLAFAXINE HCL XR 75 MG CAPXR PO SCH (09:05)
[2017-09-03] MEDS: PREGABALIN 75 MG CAP PO SCH ×2 (09:08→21:43)
[2017-09-03] MEDS: FENTANYL 25 MCG/HR TDSY TD SCH (09:13)
[2017-09-03] MEDS: FENTANYL PATCH REMOVE & WASTE SCH (09:17)
[2017-09-03] MEDS: INSULIN ASPART 100 UNITS/ML 3 ML PEN SC SCH ×4 (09:21→21:48)
[2017-09-03] MEDS: FUROSEMIDE INJ 80 MG in SYRINGE 0 ML IV SCH ×3 (09:22→21:54)
[2017-09-03] MEDS: INSULIN DETEMIR FLEXPEN/FLEX TOUCH 100 UNITS/ML 3ML SC SCH (09:23)
[2017-09-03] MEDS ORDERED: VANCOMYCIN INJ 1,750 MG in SODIUM CHLORIDE 0.9% 500ML 500 ML IV SCH (14:00)
[2017-09-03 15:57] VITALS: BP 161/85; PULSE 63; TEMP 36.2; O2SAT 96
[2017-09-03] MEDS: WARFARIN SOD 2.5 MG TAB PO SCH (16:07)
--- NOTE | 2017-09-03 19:42 | Progress Note ---
Medicine Progress Note Date & Time of Visit: Sep 03, 2017 at 14:35. Subjective Pt was seen and examined Sitting in bed with no distress Denies any complaints Objective Last 8 Hrs Date Time Temp Pulse Resp B/P (MAP) Pulse Ox O2 Delivery O2 Flow Rate FiO2 09/03/17 16:10 Room Air 09/03/17 15:57 36.2 63 18 161/85 (110) 96 Room Air Physical Exam: General- No acute distress Head- atraumatic Eyes- PERRL, EOMI ENT- oropharynx clear Neck- supple, no JVD Lungs- clear to auscultation Heart- regular rhythm Abdomen- normal bowel sounds, soft Extremities-+edema, no calf tenderness, B/L LE wound sipping and dry crusting Neuro- alert, oriented x 3; PERRL, EOMI Skin- warm & dry Laboratory Results: Last 24 Hours Test 09/02/17 20:08 09/03/17 07:38 09/03/17 07:41 09/03/17 11:06 Bedside Glucose 146 mg/dl 122 mg/dl 168 mg/dl White Blood Count 6.58 K/uL Red Blood Count 3.48 M/uL Hemoglobin 8.8 g/dL Hematocrit 29.3 % Mean Corpuscular Volume 84.2 fL Mean Corpuscular Hemoglobin 25.3 pg Mean Corpuscular Hemoglobin Concent 30.0 g/dl RDW Standard Deviation 56.1 fL RDW Coefficient of Variation 18.2 % Platelet Count 208 K/uL Mean Platelet Volume 9.6 fL Prothrombin Time 20.7 SECONDS Prothromb Time International Ratio 2.0 Sodium Level 141 mmol/L Potassium Level 3.3 mmol/L Chloride Level 106 mmol/L Carbon Dioxide Level 24 mmol/L Anion Gap 11.0 mmol/L Blood Urea Nitrogen 61 mg/dl Creatinine 2.04 mg/dl Est Creatinine Clear Calc Drug Dose 68.1 ml/min Estimated GFR () 40.7 Estimated GFR (Non- 35.1 BUN/Creatinine Ratio 29.9 Random Glucose 126 mg/dl Calcium Level 8.3 mg/dl Test 09/03/17 16:08 Bedside Glucose 177 mg/dl Assessment & Plan Altered mental status? Seems like pt was upset and did not want to cooperate he seems to be at is baseline Resolved Bilateral lower extremity swelling: Multifactorial with h/o lymphedema, CHF, CKD, DM type 2 Refused trujillo to monitor I/O On 1.2 L fluid restriction Continue Lasix 80mg TID Continue albumin Continue monitor renal function Clinically improved Nephrology on board case discussed with Dr. Rivas recommended to continue IV diuretic Continue monitor BMP B/L LE wound Multiple hospital admission Grew multiple resistant organisms in the past Continue daily wound care Wound has been improved since last admission Continue Azactam and vanco Blood cx no growth stable Multiple pressure ulcers in sacrum/ B/L LE has been stable Continue daily wound care Chronic Anemia Hb 8.8 Continue monitor CBC Stable Chronic systolic/diastolic HF Asymptomatic. Last Echo in Mar 2017 showed EF of 55-60%, mild concentric LVH, left atrium severely dilated Lasix Increased to 80mg TID Continue 1L fluid restriction continue monitor BMP twice weekly HYPOKALEMIA K3.3 K replaced Monitor BMP DM II: Hgb a1c of 7.7 in May 2017 On Levemir subq Continue Insulin coverage Continue monitor BS Chronic A Fib: Rate is controlled Continue coumadin INR 2 Continue monitor lNR BART on CKD Stage IV: Creatine on admission 2.7 Baseline GFR ~30, Cr 2.4 Creatine 2.02 today Continue monitor BMP Stable H/o R DVT/PE: Continue Coumadin INR 2 HTN: Stable Continue home meds Hypothyroidism: Levothyroxine increased to 37.5 Stable DVT px Continue Coumadin INR 2. CODE STATUS FULL CODE DISPOSITION Will discharge home tomorrow Consultants: Nephro Current Inpatient Medications: Current Inpatient Medications Medications (Trade) Dose Ordered Sig/Miguel Route Start Time Stop Time Status Last Admin Dose Admin Acetaminophen (Tylenol Tab) 650 mg Q4H PRN PO 08/29/17 21:45 09/28/17 21:44 09/03/17 16:07 650 MG Insulin Aspart (novoLOG ASPART) SLIDING SCALE If C... ACHS SC 08/30/17 06:30 09/29/17 06:59 09/03/17 17:20 3 UNITS Glucose (Glucose 40% Gel) 15-30 GRAMS 15 GRAMS... UD PRN PO 08/29/17 21:45 09/28/17 21:44 Glucose (Glucose Chew Tab) 4-8 Tablets 4 Tabl... UD PRN PO 08/29/17 21:45 09/28/17 21:44 Dextrose (Dextrose 50% 50ML Syringe) 25-50ML OF 50% DW IV FOR... UD PRN IV 08/29/17 21:45 09/28/17 21:44 Glucagon (Glucagon Inj) 1 mg UD PRN SQ 08/29/17 21:45 09/28/17 21:44 Atorvastatin Calcium (Lipitor Tab) 80 mg HS PO 08/30/17 21:00 09/29/17 20:59 09/02/17 20:13 80 MG Carvedilol (Coreg Tab) 25 mg BID PO 08/30/17 09:00 09/29/17 08:59 09/03/17 08:53 25 MG Lactobacillus Acidophilus (Floranex Tab) 2 tab BIDM PO 08/30/17 08:00 09/29/17 07:59 09/03/17 17:16 2 TAB Levothyroxine Sodium (Synthroid Tab) 37.5 mcg DAILYBB PO 08/30/17 06:30 09/29/17 06:29 09/03/17 06:41 37.5 MCG Loratadine (Claritin Tab) 10 mg DAILY PO 08/30/17 09:00 09/29/17 08:59 09/03/17 08:52 10 MG Multivitamins/ Minerals (Multivitamin W/ Minerals Tab) 1 tab QAM PO 08/30/17 09:00 09/29/17 08:59 09/03/17 08:52 1 TAB Pregabalin (Lyrica Cap) 75 mg BID PO 08/29/17 23:00 09/28/17 22:59 09/03/17 09:08 75 MG Senna/Docusate Sodium (Senokot S Tab) 2 tab HS PO 08/30/17 21:00 09/29/17 20:59 09/02/17 20:14 2 TAB Tamsulosin HCl (Flomax Cap) 0.4 mg HS PO 08/30/17 21:00 09/29/17 20:59 09/02/17 20:14 0.4 MG Trazodone HCl (Desyrel Tab) 50 mg HS PO 08/29/17 23:00 09/28/17 22:59 09/02/17 20:14 50 MG Ursodiol (Actigall Cap) 300 mg BID PO 08/30/17 09:00 09/29/17 08:59 09/03/17 08:55 300 MG Venlafaxine HCl (effeXOR EXTENDED REL CAP) 75 mg QAM PO 08/30/17 09:00 09/29/17 08:59 09/03/17 09:05 75 MG Pantoprazole Sodium (Protonix Tab) 40 mg QAM PO 08/30/17 09:00 09/29/17 08:59 09/03/17 08:54 40 MG Polyethylene (Miralax Powder Packet) 17 gm QAM PO 08/30/17 09:00 09/29/17 08:59 09/03/17 08:55 17 GM Insulin Detemir (Levemir Flexpen/ FlexTouch) 5 units DAILY SC 08/30/17 09:00 09/29/17 08:59 09/03/17 09:23 5 UNITS Aztreonam (Consult) 1 ea UD PRN N/A 08/29/17 23:00 09/28/17 22:59 Tramadol HCl (Ultram Tab) 25 mg Q6H PRN PO 08/29/17 21:45 09/28/17 21:44 09/03/17 00:28 25 MG Prochlorperazine Edisylate 5 mg/ Syringe 5 ml @ 5 mls/min Q6H PRN IV 08/29/17 21:45 09/28/17 21:44 Albuterol/ Ipratropium (Duoneb) 3 ml Q2H PRN INH 08/29/17 22:00 09/28/17 21:59 Aztreonam 2000 mg/ Dextrose 110 ml @ 110 mls/hr Q8H IV 08/30/17 00:00 09/09/17 00:00 09/03/17 17:16 110 MLS/HR Miscellaneous Information (Consult) 1 ea UD PRN N/A 08/29/17 23:00 09/28/17 22:59 Heparin Sodium (Porcine) (Heparin 10 Unit/ ml 5 ml Flush) 5 ml PRN PRN FLUSH 08/30/17 01:30 09/29/17 01:29 09/03/17 19:29 5 ML Miconazole Nitrate (Desenex Powder) 1 appln BID PRN EXT 08/30/17 15:30 09/29/17 15:29 09/02/17 17:37 1 APPLN Fentanyl (Duragesic Patch) 25 mcg Q3D@0900 TD 08/31/17 12:00 09/14/17 11:59 09/03/17 09:13 25 MCG Miscellaneous (Fentanyl Patch Remove & Waste) 1 ea Q3D@0859 N/A 08/31/17 11:59 09/30/17 11:58 09/03/17 09:17 1 EA Miscellaneous Information (Check Fentanyl Patch Placement) 1 ea QS N/A 08/31/17 16:00 09/30/17 15:59 09/03/17 16:06 1 EA Hydralazine HCl (HydrALAZINE INJ) 10 mg Q6 PRN IV. 08/31/17 11:45 09/30/17 11:44 08/31/17 11:38 10 MG Furosemide 80 mg/ Syringe 8 ml @ 4 mls/min TID IV 09/01/17 14:00 09/29/17 20:59 09/03/17 13:52 4 MLS/MIN Oxycodone HCl (Roxicodone Immediate Rel Tab) 5 mg Q8H PRN PO 09/01/17 18:00 09/15/17 17:59 09/03/17 13:51 5 MG Vancomycin HCl 1750 mg/Sodium Chloride 535 ml @ 200 mls/hr Q36H IV 09/03/17 14:00 09/10/17 01:59 09/03/17 13:52 200 MLS/HR Warfarin Sodium (Coumadin Tab) 2.5 mg DAILY@16 PO 09/03/17 16:00 10/03/17 15:59 09/03/17 16:07 2.5 MG
[2017-09-03] MEDS ORDERED: POTASSIUM CHLORIDE 20 MEQ TABCR PO ONE (20:15)
[2017-09-03 20:24] VITALS: O2SAT 93
[2017-09-03] MEDS: DOCUSATE SODIUM/SENNA 50/8.6MG TAB PO SCH (21:43)
[2017-09-03] MEDS: ATORVASTATIN 40 MG TAB PO SCH (21:44)
[2017-09-03] MEDS: TAMSULOSIN HCL 0.4 MG CAP PO SCH (21:44)
[2017-09-03] MEDS: TRAZODONE HCL 50 MG TAB PO SCH (21:44)
[2017-09-03 23:10] VITALS: BP 166/72; PULSE 62; TEMP 36.2; O2SAT 96
[2017-09-04 01:03] VITALS: O2SAT 93
[2017-09-04] MEDS: OXYCODONE HCL IR 5 MG TAB (IMMEDIATE RELEASE) PO PRN ×2 (01:21→13:19)
[2017-09-04] MEDS: LEVOTHYROXINE 75 MCG TAB PO SCH (05:39)
[2017-09-04] MEDS: INSULIN ASPART 100 UNITS/ML 3 ML PEN SC SCH ×2 (06:30→12:15)
[2017-09-04 08:00] VITALS: O2SAT 93
[2017-09-04] MEDS: CHECK FENTANYL PATCH PLACEMENT SCH ×2 (08:00→15:40)
[2017-09-04 08:22] VITALS: BP 145/81; PULSE 63; TEMP 36.4; O2SAT 94
[2017-09-04 08:30] LABS: INR 1.9 (0.9-1.1)
[2017-09-04 08:48] LABS: CALCIUM 8.5 mg/dl (8.5-10.1); CREATININE 2.04 mg/dl (0.60-1.40); POTASSIUM 3.5 mmol/L (3.5-5.1)
[2017-09-04] MEDS: FUROSEMIDE INJ 80 MG in SYRINGE 0 ML IV SCH ×2 (08:48→13:24)
[2017-09-04] MEDS: CEROVITE ADV FORMULA TAB PO SCH (08:49)
[2017-09-04] MEDS: LORATADINE 10 MG TAB PO SCH (08:49)
--- NOTE | 2017-09-04 08:49 | Nephrology Progress Note ---
Nephrology Progress Note Date of Service: Sep 04, 2017. Subjective 56 yo male with chronic lymphedema and recurrent cellulitis. on iv antibiotics and diuretics. pt pleasant and wants to go back to [facility] today. pt feels his legs are better. Objective Date Time Temp Pulse Resp B/P (MAP) Pulse Ox O2 Delivery O2 Flow Rate FiO2 09/04/17 08:22 36.4 63 20 145/81 (102) 94 09/04/17 01:03 93 Room Air 2.0 09/03/17 23:10 36.2 62 20 166/72 (103) 96 Room Air 09/03/17 20:24 93 Room Air 2.0 09/03/17 16:10 Room Air 09/03/17 15:57 36.2 63 18 161/85 (110) 96 Room Air Physical Exam: General-aaox3 Eyes-no scleral icterus ENT-mmm Neck-supple Lungs-cta Heart-rrr Abdomen-bs+ soft, nondistended Extremities-right leg +3 to 4 edema with erythema-wrapped, left leg +1 edema- wrapped Neuro-nonfocal Current Inpatient Medications Medications (Trade) Dose Ordered Sig/Miguel Route Start Time Stop Time Status Last Admin Dose Admin Acetaminophen (Tylenol Tab) 650 mg Q4H PRN PO 08/29/17 21:45 09/28/17 21:44 09/03/17 16:07 650 MG Insulin Aspart (novoLOG ASPART) SLIDING SCALE If C... ACHS SC 08/30/17 06:30 09/29/17 06:59 09/03/17 17:20 3 UNITS Glucose (Glucose 40% Gel) 15-30 GRAMS 15 GRAMS... UD PRN PO 08/29/17 21:45 09/28/17 21:44 Glucose (Glucose Chew Tab) 4-8 Tablets 4 Tabl... UD PRN PO 08/29/17 21:45 09/28/17 21:44 Dextrose (Dextrose 50% 50ML Syringe) 25-50ML OF 50% DW IV FOR... UD PRN IV 08/29/17 21:45 09/28/17 21:44 Glucagon (Glucagon Inj) 1 mg UD PRN SQ 08/29/17 21:45 09/28/17 21:44 Atorvastatin Calcium (Lipitor Tab) 80 mg HS PO 08/30/17 21:00 2/16/18 20:59 09/03/17 21:44 80 MG Carvedilol (Coreg Tab) 25 mg BID PO 08/30/17 09:00 09/29/17 08:59 09/03/17 21:48 25 MG Lactobacillus Acidophilus (Floranex Tab) 2 tab BIDM PO 08/30/17 08:00 09/29/17 07:59 09/03/17 17:16 2 TAB Levothyroxine Sodium (Synthroid Tab) 37.5 mcg DAILYBB PO 08/30/17 06:30 09/29/17 06:29 09/04/17 05:39 37.5 MCG Loratadine (Claritin Tab) 10 mg DAILY PO 08/30/17 09:00 09/29/17 08:59 09/03/17 08:52 10 MG Multivitamins/ Minerals (Multivitamin W/ Minerals Tab) 1 tab QAM PO 08/30/17 09:00 09/29/17 08:59 09/03/17 08:52 1 TAB Pregabalin (Lyrica Cap) 75 mg BID PO 08/29/17 23:00 09/28/17 22:59 09/03/17 21:43 75 MG Senna/Docusate Sodium (Senokot S Tab) 2 tab HS PO 08/30/17 21:00 09/29/17 20:59 09/03/17 21:43 2 TAB Tamsulosin HCl (Flomax Cap) 0.4 mg HS PO 08/30/17 21:00 09/29/17 20:59 09/03/17 21:44 0.4 MG Trazodone HCl (Desyrel Tab) 50 mg HS PO 08/29/17 23:00 09/28/17 22:59 09/03/17 21:44 50 MG Ursodiol (Actigall Cap) 300 mg BID PO 08/30/17 09:00 09/29/17 08:59 09/03/17 21:45 300 MG Venlafaxine HCl (effeXOR EXTENDED REL CAP) 75 mg QAM PO 08/30/17 09:00 09/29/17 08:59 09/03/17 09:05 75 MG Pantoprazole Sodium (Protonix Tab) 40 mg QAM PO 08/30/17 09:00 09/29/17 08:59 09/03/17 08:54 40 MG Polyethylene (Miralax Powder Packet) 17 gm QAM PO 08/30/17 09:00 09/29/17 08:59 09/03/17 08:55 17 GM Insulin Detemir (Levemir Flexpen/ FlexTouch) 5 units DAILY SC 08/30/17 09:00 09/29/17 08:59 09/03/17 09:23 5 UNITS Aztreonam (Consult) 1 ea UD PRN N/A 08/29/17 23:00 09/28/17 22:59 Tramadol HCl (Ultram Tab) 25 mg Q6H PRN PO 08/29/17 21:45 09/28/17 21:44 09/03/17 00:28 25 MG Prochlorperazine Edisylate 5 mg/ Syringe 5 ml @ 5 mls/min Q6H PRN IV 08/29/17 21:45 09/28/17 21:44 Albuterol/ Ipratropium (Duoneb) 3 ml Q2H PRN INH 08/29/17 22:00 09/28/17 21:59 Aztreonam 2000 mg/ Dextrose 110 ml @ 110 mls/hr Q8H IV 08/30/17 00:00 09/09/17 00:00 09/03/17 23:44 110 MLS/HR Miscellaneous Information (Consult) 1 ea UD PRN N/A 08/29/17 23:00 09/28/17 22:59 Heparin Sodium (Porcine) (Heparin 10 Unit/ ml 5 ml Flush) 5 ml PRN PRN FLUSH 08/30/17 01:30 09/29/17 01:29 09/03/17 23:44 5 ML Miconazole Nitrate (Desenex Powder) 1 appln BID PRN EXT 08/30/17 15:30 09/29/17 15:29 09/02/17 17:37 1 APPLN Fentanyl (Duragesic Patch) 25 mcg Q3D@0900 TD 08/31/17 12:00 09/14/17 11:59 09/03/17 09:13 25 MCG Miscellaneous (Fentanyl Patch Remove & Waste) 1 ea Q3D@0859 N/A 08/31/17 11:59 09/30/17 11:58 09/03/17 09:17 1 EA Miscellaneous Information (Check Fentanyl Patch Placement) 1 ea QS N/A 08/31/17 16:00 09/30/17 15:59 09/03/17 23:44 1 EA Hydralazine HCl (HydrALAZINE INJ) 10 mg Q6 PRN IV. 08/31/17 11:45 09/30/17 11:44 08/31/17 11:38 10 MG Furosemide 80 mg/ Syringe 8 ml @ 4 mls/min TID IV 09/01/17 14:00 09/29/17 20:59 09/03/17 21:54 4 MLS/MIN Oxycodone HCl (Roxicodone Immediate Rel Tab) 5 mg Q8H PRN PO 09/01/17 18:00 09/15/17 17:59 09/04/17 01:21 5 MG Vancomycin HCl 1750 mg/Sodium Chloride 535 ml @ 200 mls/hr Q36H IV 09/03/17 14:00 09/10/17 01:59 09/03/17 13:52 200 MLS/HR Warfarin Sodium (Coumadin Tab) 2.5 mg DAILY@16 PO 09/03/17 16:00 10/03/17 15:59 09/03/17 16:07 2.5 MG Last 24 Hours Test 09/03/17 11:06 09/03/17 16:08 09/03/17 20:29 09/04/17 07:45 Bedside Glucose 168 mg/dl 177 mg/dl 152 mg/dl 127 mg/dl Test 09/04/17 07:59 Prothrombin Time 20.0 SECONDS Prothromb Time International Ratio 1.9 Assessment & Plan CKD stage IV. despite aggressive diuresis-creatinine actually has improved from 2.7 to 2. labs pending for today. continue aggressive oral diuretics upon discharge 160mg po bid. Hypokalemia. continue to replete potassium. continue home dose of potassium upon discharge. recheck bmp again on . continue to try to control his chronic lymphedema and chronic cellulilitis. difficult situation.
[2017-09-04] MEDS: VENLAFAXINE HCL XR 75 MG CAPXR PO SCH (08:50)
[2017-09-04] MEDS: PANTOprazole SOD 40 MG TAB PO SCH (08:50)
[2017-09-04] MEDS: URSODIOL 300 MG CAP PO SCH (08:50)
[2017-09-04] MEDS: LACTOBACILLUS ACIDOPHILUS (FLORANEX) TAB PO SCH (08:50)
[2017-09-04] MEDS: POLYETHYLENE (MIRALAX) 17 GM PACK PO SCH (08:51)
[2017-09-04] MEDS: CARVEDILOL 25 MG TAB PO SCH (08:51)
[2017-09-04] MEDS: INSULIN DETEMIR FLEXPEN/FLEX TOUCH 100 UNITS/ML 3ML SC SCH (09:01)
[2017-09-04] MEDS: PREGABALIN 75 MG CAP PO SCH (09:01)
[2017-09-04] MEDS: AZTREONAM 2000 MG in DEXTROSE 5% 100 ML IV SCH (09:02)
--- NOTE | 2017-09-04 15:38 | Progress Note ---
Medicine Progress Note Date & Time of Visit: Sep 04, 2017 at 15:31. Subjective Pt was seen and examined Sitting in bed with no distress Pt said that he feels fine Denies any chest pain, palpitation, dizziness and SOB Objective Last 8 Hrs Date Time Temp Pulse Resp B/P (MAP) Pulse Ox O2 Delivery O2 Flow Rate FiO2 09/04/17 08:22 36.4 63 20 145/81 (102) 94 09/04/17 08:00 93 Room Air Physical Exam: General- No acute distress Head- atraumatic Eyes- PERRL, EOMI ENT- oropharynx clear Neck- supple, no JVD Lungs- clear to auscultation Heart- regular rhythm Abdomen- normal bowel sounds, soft Extremities-+edema, no calf tenderness, B/L LE wound sipping and dry crusting Neuro- alert, oriented x 3; PERRL, EOMI Skin- warm & dry Laboratory Results: Last 24 Hours Test 09/03/17 16:08 09/03/17 20:29 09/04/17 07:45 09/04/17 07:59 Bedside Glucose 177 mg/dl 152 mg/dl 127 mg/dl Prothrombin Time 20.0 SECONDS Prothromb Time International Ratio 1.9 Sodium Level 140 mmol/L Potassium Level 3.5 mmol/L Chloride Level 106 mmol/L Carbon Dioxide Level 26 mmol/L Anion Gap 9.0 mmol/L Blood Urea Nitrogen 59 mg/dl Creatinine 2.04 mg/dl Est Creatinine Clear Calc Drug Dose 67.1 ml/min Estimated GFR () 40.7 Estimated GFR (Non- 35.1 BUN/Creatinine Ratio 28.9 Random Glucose 124 mg/dl Calcium Level 8.5 mg/dl Test 09/04/17 11:36 Bedside Glucose 144 mg/dl Assessment & Plan Altered mental status? Seems like pt was upset and did not want to cooperate he seems to be at is baseline Resolved Bilateral lower extremity swelling: Multifactorial with h/o lymphedema, CHF, CKD, DM type 2 Refused trujillo to monitor I/O On 1.2 L fluid restriction Continue Lasix 80mg TID Continue albumin Continue monitor renal function Clinically improved Nephrology on board case discussed with Dr. Rivas recommended to continue IV diuretic Continue monitor BMP 09/04 Diuresis well on IV lasix 80mg TID Will discharge on Lasix 160mg PO BID Check BMP on Case discussed with nephrology Avoid nephrotoxic agents Continue fluid restriction B/L LE wound Multiple hospital admission Grew multiple resistant organisms in the past Continue daily wound care Wound has been improved since last admission On IV Azactam and vanco Blood cx no growth stable Multiple pressure ulcers in sacrum/ B/L LE has been stable Continue daily wound care Chronic Anemia Hb 8.8 Continue monitor CBC Stable Chronic systolic/diastolic HF Asymptomatic. Last Echo in Mar 2017 showed EF of 55-60%, mild concentric LVH, left atrium severely dilated received lasix 80mg TID Will discharge on lasix 160mg BID Continue 1L fluid restriction continue monitor BMP twice weekly HYPOKALEMIA K 3.5 K replaced Monitor BMP DM II: Hgb a1c of 7.7 in May 2017 On Levemir subq Continue Insulin coverage Continue monitor BS Chronic A Fib: Rate is controlled Continue coumadin INR 1.9 Continue monitor lNR BART on CKD Stage IV: Creatine on admission 2.7 Baseline GFR ~30, Cr 2.4 Creatine 2.05 today Continue monitor BMP Stable H/o R DVT/PE: Continue Coumadin INR 1.9 HTN: Stable Continue home meds Hypothyroidism: Levothyroxine increased to 37.5 Stable DVT px Continue Coumadin INR 1.9 CODE STATUS FULL CODE DISPOSITION Will discharge home today Consultants: Nephro Current Inpatient Medications: Current Inpatient Medications Medications (Trade) Dose Ordered Sig/Miguel Route Start Time Stop Time Status Last Admin Dose Admin Acetaminophen (Tylenol Tab) 650 mg Q4H PRN PO 08/29/17 21:45 09/28/17 21:44 09/03/17 16:07 650 MG Insulin Aspart (novoLOG ASPART) SLIDING SCALE If C... ACHS SC 08/30/17 06:30 09/29/17 06:59 09/04/17 12:15 4 UNITS Glucose (Glucose 40% Gel) 15-30 GRAMS 15 GRAMS... UD PRN PO 08/29/17 21:45 09/28/17 21:44 Glucose (Glucose Chew Tab) 4-8 Tablets 4 Tabl... UD PRN PO 08/29/17 21:45 09/28/17 21:44 Dextrose (Dextrose 50% 50ML Syringe) 25-50ML OF 50% DW IV FOR... UD PRN IV 08/29/17 21:45 09/28/17 21:44 Glucagon (Glucagon Inj) 1 mg UD PRN SQ 08/29/17 21:45 09/28/17 21:44 Atorvastatin Calcium (Lipitor Tab) 80 mg HS PO 08/30/17 21:00 09/29/17 20:59 09/03/17 21:44 80 MG Carvedilol (Coreg Tab) 25 mg BID PO 08/30/17 09:00 09/29/17 08:59 09/04/17 08:51 25 MG Lactobacillus Acidophilus (Floranex Tab) 2 tab BIDM PO 08/30/17 08:00 09/29/17 07:59 09/04/17 08:50 2 TAB Levothyroxine Sodium (Synthroid Tab) 37.5 mcg DAILYBB PO 08/30/17 06:30 09/29/17 06:29 09/04/17 05:39 37.5 MCG Loratadine (Claritin Tab) 10 mg DAILY PO 08/30/17 09:00 09/29/17 08:59 09/04/17 08:49 10 MG Multivitamins/ Minerals (Multivitamin W/ Minerals Tab) 1 tab QAM PO 08/30/17 09:00 09/29/17 08:59 09/04/17 08:49 1 TAB Pregabalin (Lyrica Cap) 75 mg BID PO 08/29/17 23:00 09/28/17 22:59 09/04/17 09:01 75 MG Senna/Docusate Sodium (Senokot S Tab) 2 tab HS PO 08/30/17 21:00 09/29/17 20:59 09/03/17 21:43 2 TAB Tamsulosin HCl (Flomax Cap) 0.4 mg HS PO 08/30/17 21:00 09/29/17 20:59 09/03/17 21:44 0.4 MG Trazodone HCl (Desyrel Tab) 50 mg HS PO 08/29/17 23:00 09/28/17 22:59 09/03/17 21:44 50 MG Ursodiol (Actigall Cap) 300 mg BID PO 08/30/17 09:00 09/29/17 08:59 09/04/17 08:50 300 MG Venlafaxine HCl (effeXOR EXTENDED REL CAP) 75 mg QAM PO 08/30/17 09:00 09/29/17 08:59 09/04/17 08:50 75 MG Pantoprazole Sodium (Protonix Tab) 40 mg QAM PO 08/30/17 09:00 09/29/17 08:59 09/04/17 08:50 40 MG Polyethylene (Miralax Powder Packet) 17 gm QAM PO 08/30/17 09:00 09/29/17 08:59 09/04/17 08:51 17 GM Insulin Detemir (Levemir Flexpen/ FlexTouch) 5 units DAILY SC 08/30/17 09:00 09/29/17 08:59 09/04/17 09:01 5 UNITS Aztreonam (Consult) 1 ea UD PRN N/A 08/29/17 23:00 09/28/17 22:59 Tramadol HCl (Ultram Tab) 25 mg Q6H PRN PO 08/29/17 21:45 09/28/17 21:44 09/03/17 00:28 25 MG Prochlorperazine Edisylate 5 mg/ Syringe 5 ml @ 5 mls/min Q6H PRN IV 08/29/17 21:45 09/28/17 21:44 Albuterol/ Ipratropium (Duoneb) 3 ml Q2H PRN INH 08/29/17 22:00 09/28/17 21:59 Aztreonam 2000 mg/ Dextrose 110 ml @ 110 mls/hr Q8H IV 08/30/17 00:00 09/09/17 00:00 09/04/17 09:02 110 MLS/HR Miscellaneous Information (Consult) 1 ea UD PRN N/A 08/29/17 23:00 09/28/17 22:59 Heparin Sodium (Porcine) (Heparin 10 Unit/ ml 5 ml Flush) 5 ml PRN PRN FLUSH 08/30/17 01:30 09/29/17 01:29 09/03/17 23:44 5 ML Miconazole Nitrate (Desenex Powder) 1 appln BID PRN EXT 08/30/17 15:30 09/29/17 15:29 09/02/17 17:37 1 APPLN Fentanyl (Duragesic Patch) 25 mcg Q3D@0900 TD 08/31/17 12:00 09/14/17 11:59 09/03/17 09:13 25 MCG Miscellaneous (Fentanyl Patch Remove & Waste) 1 ea Q3D@0859 N/A 08/31/17 11:59 09/30/17 11:58 09/03/17 09:17 1 EA Miscellaneous Information (Check Fentanyl Patch Placement) 1 ea QS N/A 08/31/17 16:00 09/30/17 15:59 09/04/17 08:00 1 EA Hydralazine HCl (HydrALAZINE INJ) 10 mg Q6 PRN IV. 08/31/17 11:45 09/30/17 11:44 08/31/17 11:38 10 MG Furosemide 80 mg/ Syringe 8 ml @ 4 mls/min TID IV 09/01/17 14:00 09/29/17 20:59 09/04/17 13:24 4 MLS/MIN Oxycodone HCl (Roxicodone Immediate Rel Tab) 5 mg Q8H PRN PO 09/01/17 18:00 09/15/17 17:59 09/04/17 13:19 5 MG Vancomycin HCl 1750 mg/Sodium Chloride 535 ml @ 200 mls/hr Q36H IV 09/03/17 14:00 09/10/17 01:59 09/03/17 13:52 200 MLS/HR Warfarin Sodium (Coumadin Tab) 2.5 mg DAILY@16 PO 09/03/17 16:00 10/03/17 15:59 09/03/17 16:07 2.5 MG
[2017-09-04] MEDS ORDERED: MCTP EXT (15:44)
[2017-09-04] MEDS ORDERED: CMD/25 PO (15:44)
[2017-09-04] MEDS: WARFARIN SOD 2.5 MG TAB PO SCH (15:49)
--- NOTE | 2017-09-04 15:54 | Discharge Instructions ---
Discharge Instructions Date of Service Sep 04, 2017. Admission Reason for Admission: Arf (Acute Renal Failure) Discharge Discharge Diagnosis / Problem: Altered mental status ? Bilateral lower extremity swelling,b/l LE wound Discharge Goals Goal(s): Decrease discomfort, Improve function, Improve disease control Activity Recommendations Activity Limitations: resume your previous activity (as tolerated) . Instructions / Follow-Up Instructions / Follow-Up Follow up with your provider at [facility] Lasix increased to 160mg twice daily On Fluid restriction to 1L daily Check BMP on Continue Coumadin 3 mg daily Check INR Fall precaution Continue physical therapy and Occupational therapy Continue daily wound care Follow up with the wound care clinic Continue IV azactam and Vanco for another 5 days Monitor blood sugar and titrate insulin as needed Current Hospital Diet Patient's current hospital diet: Diabetes Type 2 Diet Discharge Diet Recommended Diet: Diabetes Type 2 Diet Pending Studies Studies pending at discharge: no Laboratory Results Hemoglobin A1c Test 07/20/17 04:15 Range/Units Estimated Average Glucose 169 mg/dl Hemoglobin A1c 7.5 H 4.5-5.6 % Lipid Panel Test 06/22/17 05:15 Range/Units Triglycerides Level 118 0-150 mg/dl Cholesterol Level 60 0-200 mg/dl HDL Cholesterol 21 mg/dl Cholesterol/HDL Ratio 2.9 LDL Cholesterol, Calculated 15 mg/dl Medical Emergencies . Who to Call and When: Medical Emergencies: If at any time you feel your situation is an emergency, please call 911 immediately. . Non-Emergent Contact Non-Emergency issues call your: Primary Care Provider Call Non-Emergent contact if: you have any medication questions . . "Provider Documentation" section prepared by Genesis Salazar. . VTE Core Measure Inpt VTE Proph given/why not?: Warfarin (Coumadin)
[2017-09-04] MEDS ORDERED: CMD3 PO (15:56)
--- NOTE | 2017-09-04 18:05 | Discharge Summary ---
Discharge Summary Date of Service Sep 04, 2017. Discharge Summary Admission Date: Aug 29, 2017 at 21:12 Discharge Date: Sep 04, 2017 Discharge Disposition: longterm facility Principal Diagnosis: Altered mental status? Secondary Diagnoses/Problems: Bilateral lower extremity swelling BART on CKD Stage IV B/L LE wound Multiple pressure ulcers in sacrum/ B/L LE Chronic systolic/diastolic HF HYPOKALEMIA HYPOTHYROIDISM Procedures: 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 A dose lowering technique was utilized adhering to the principles of ALARA. Comparison: 08/29/2017 Findings: The paranasal sinuses and mastoid air cells are clear. The calvarium and skull base are intact. The ventricles and sulci are within normal limits. There is no mass, hematoma, midline shift, or acute infarct. Moderate chronic small vessel change of the periventricular and deep white matter regions. This is unchanged from the prior study. Impression: Chronic and age-related change. No acute process. The above report was generated using voice recognition software. It may contain grammatical, syntax or spelling errors. Electronically signed by: Asa Hutton M.D. 09/01/2017 6:39 AM Dictated Date/Time: 09/01/2017 6:38 AM [~ rep ct add3]] CT NECK HISTORY: neck pain TECHNIQUE: Multiaxial CT images of the neck were performed without the use of intravenous contrast. COMPARISON STUDY: None. FINDINGS: The visualized brain parenchyma and orbits are unremarkable. The thyroid gland is mildly enlarged and slightly heterogeneous. Left-sided dual-chamber pacemaker wires are partially visualized. The mucosal airway surfaces are intact. Prevertebral soft tissues and the epiglottis are normal in thickness. The unenhanced parotid and submandibular glands are symmetric. No significant cervical lymphadenopathy. No masses or loculated fluid collections identified on this noncontrast study. The lungs are clear. Degenerative changes seen within the cervical spine most pronounced at the C4-C5 and C5-C6 level. No fractures identified. Mild mucosal thickening within the maxillary sinuses. The mastoid air cells are clear. IMPRESSION: Degenerative changes seen within the cervical spine at C4-C5 and C5-C6. Otherwise, no significant abnormality identified within the neck. Electronically signed by: Kike Shelton M.D. 09/01/2017 7:15 AM Dictated Date/Time: 09/01/2017 7:11 AM ABD/PELVIS NO IV OR ORAL CONT CT DOSE: 2472.74 mGy.cm HISTORY: Pain abd pain TECHNIQUE: Multiaxial CT images of the abdomen and pelvis were performed without contrast. A dose lowering technique was utilized adhering to the principles of ALARA. COMPARISON STUDY: 05/22/2017 FINDINGS: Lung bases are clear. Stable hepatosplenomegaly. Unchanging fatty replacement of the pancreas. Cholecystectomy. Inferior vena caval filter present and unchanged in location. Mild bladder distention. Nonobstructive bowel pattern throughout. Several small renal cysts. No evidence for hydronephrosis. Several stable abdominal pelvic and inguinal nodes as compared to the prior exam. No new or progressive disease. Developing and are slightly progressive body wall anasarca. Multiple vascular collaterals within the subcutaneous tissues are noted and appear stable. Small bilateral effusions of the hips unchanged in the prior exam. IMPRESSION: 1. Developing body wall anasarca. Stable venous collaterals throughout the abdomen and pelvic wall regions 2. Otherwise unchanged evaluation of the abdomen and pelvis compared to the prior study. 3. Incidental findings are considered stable with no new or progressive intra-abdominal or pelvic finding. The above report was generated using voice recognition software. It may contain grammatical, syntax or spelling errors. Electronically signed by: Asa Hutton M.D. 08/29/2017 8:53 PM Dictated Date/Time: 08/29/2017 8:48 PM Consultations: Nephro Medication Reconciliation New Medications: Miconazole Nitrate (Desenex Shake Powder) 43 Appln/43 Gm Powd 1 APPLN EXT BID PRN for Affected Skin Folds for 30 Days Changed Medications: Warfarin Sod (Coumadin) 3 Mg Tab 1 TAB PO DAILY for 30 Days (Changed from: Warfarin Sod (Coumadin) 2.5 Mg Tab 1 Tab PO DAILY 30 Days #30 TAB Ref 3) Continued Medications: Acetaminophen (Tylenol) 325 Mg Tab 650 MG PO Q6H PRN for Pain or Fever, TAB MAX APAP = 3GM/24HRS Acetaminophen/Codeine (Tylenol W/Codeine #3) 300 Mg/30 Mg Tab 1 TAB PO Q6H PRN for Pain, TAB Albuterol Hfa (Ventolin Hfa) 200 Puffs/25109 Mcg Aers 2 PUFFS INH Q6H PRN for Wheezing Atorvastatin (Lipitor) 40 Mg Tab 80 MG PO HS, TAB Aztreonam (Aztreonam) 1 Gm Inj 1 GM IV Q8H Carvedilol (Coreg) 25 Mg Tab 25 MG PO BID Esomeprazole Magnesium (Nexium) 40 Mg Capcr 40 MG PO DAILY, CAP Fentanyl (Fentanyl) 25 Mcg Tdsy 25 MCG TD [id number] Furosemide (Lasix) 40 Mg Tab 160 MG PO BID, TAB 4 TABLET DOSE TWICE DAILY Heparin Sod (Porcine) (Heparin Lock Flush) 5 Ml Inj 3 ML IVF BID USE 3ML INTRAVENOUSLY TWO TIMES A DAY FOR MIDLINE NON-VALVED MAINTENENCE. FLUSH EACH LUMEN EVERY 12 HOURS WITH 10 ML NORMAL SALINE & 3ML HEPARIN. Hydroxyzine Hcl (Atarax) 25 Mg Tab 25 MG PO QID PRN for Itching, TAB Insulin Aspart (Novolog Flexpen) 100 Units/Ml Inj 0 UNITS SC ACHS, #1 2 Refills INSULIN NOVOLOG SLIDING SCALE BLOOD SUGARS GOAL RANGE 110-140MG/DL CORRCTION FACTOR = 25MG/DL/UNIT CARB RATIO = 1 UNIT PER 10 GRAM CHO CONSUMED Insulin Detemir (Levemir) 100 Units/Ml Inj 8 UNITS SQ BID Lactobacillus Acidophilus (Lactinex) Tab 2 TAB PO BID, TAB Levothyroxine Sodium (Levothyroxine Sodium) 50 Mcg Tab 37.5 MCG PO DAILY, TAB 1.5 TABLET DOSE DAILY Loratadine (Claritin) 10 Mg Tab 10 MG PO DAILY, TAB Magnesium Hydroxide (Milk Of Magnesia) 30 Ml Susp 30 ML PO UD PRN for Constipation, ML Melatonin (Melatonin) 5 Mg Tab 10 MG PO HS Multiple Vitamins W/ Minerals (Theragran-M) 1 Tab Tab 1 TAB PO QAM Nitroglycerin (Nitrostat) 0.4 Mg Tab 0.4 MG UT UD PRN for Chest Pain Ondansetron Hcl (Zofran) 4 Mg Tab 4 MG PO Q8 PRN for Nausea, TAB Polyethylene Glycol 3350 (Miralax) 1 Pow Pow 17 GM PO DAILY HOLD FOR LOOSE STOOLS Potassium Chloride (Potassium Chloride Er) 10 Meq Cap 10 MEQ PO DAILY Pregabalin (Lyrica) 75 Mg Cap 75 MG PO BID, CAP Sennosides-Docusate Sodium (Sennalax-S) 1 Tab Tab 2 TABS PO HS Tamsulosin Hcl (Flomax) 0.4 Mg Cap 0.4 MG PO HS, CAP Trazodone Hcl (Trazodone) 50 Mg Tab 50 MG PO HS, TAB Ursodiol (Ursodiol) 300 Mg Cap 300 MG PO BID Vancomycin Hcl (Vancomycin) 250 Mg Cap 2 GM IV q48hr Venlafaxine HCl (Venlafaxine HCl ER) 75 Mg Capcr 75 MG PO DAILY Admission Information HPI (per Admitting provider): Pt is 56 y/o M with PMH HTN, DM II, cardiomyopathy systolic & diastolic dysfunction, pacer, chronic DVT, chronic a-fib on coumadin, CKD IV, lymphedema, bilateral LE cellulitis on aztreonam, Hx back pain on fentanyl patch presented to ER from [facility] for lethargy and altered mental status. Per [facility] staff report pt has not been eating and drinking and refuses some medications recently. When I saw pt he is lying supine in no apparent distress and he refused to talk to follow commands. ER nursing staff report pt just was awake, alert and following commands and swearing at nursing staff, refusing to urinate and refusing catheter prior to my exam. Pt with recent admission on 08/01/17-08/05/17 for LE cellulitis and volume overload. In ER pt afebrile, P: 60, R: 20, BP: 142/71. 98% on 2L. Hgb: 8.6 (~baseline). Cr: 2.7 (was 2.6 on 08/15/17 and 2.4 on 08/09/17). INR: 3.1. CXR: CHF. Pt given 500ml NSS in ER. Physical Exam (per Admitting): General Appearance: + obese, + pertinent finding (lying supine in bed with eyes closed. refusing to follow commands and will not talk) Head: normocephalic, atraumatic Eyes: PERRL, sclerae normal, + pertinent finding (unable to test EOMs as pt uncooperative) ENT: pharynx normal Neck: supple, trachea midline Respiratory/Chest: chest non-tender, no respiratory distress, no accessory muscle use, + decreased breath sounds (bases) Cardiovascular: regular rate, rhythm Abdomen/GI: normal bowel sounds, + pertinent finding (obese, soft, no apparent tenderness to palpation, inferior abdomen with erythema) Extremities/Musculoskelatal: + pertinent finding (bilateral extremities with severe edema and erythema extending proximally to abdomen, with areas of skin sloughing and yellow/clear weeping) Neurologic/Psych: + pertinent finding (pt will not follow commands or speak or open eyes) Skin: + pertinent finding (see above) Hospital Course Altered mental status? Seems like pt was upset and did not want to cooperate he seems to be at is baseline Resolved Bilateral lower extremity swelling: Multifactorial with h/o lymphedema, CHF, CKD, DM type 2 Refused trujillo to monitor I/O On 1.2 L fluid restriction Continue Lasix 80mg TID Continue albumin Continue monitor renal function Clinically improved Nephrology on board case discussed with Dr. Rivas recommended to continue IV diuretic Continue monitor BMP 09/04 Diuresis well on IV lasix 80mg TID Will discharge on Lasix 160mg PO BID Check BMP on Case discussed with nephrology Avoid nephrotoxic agents Continue fluid restriction B/L LE wound Multiple hospital admission Grew multiple resistant organisms in the past Continue daily wound care Wound has been improved since last admission On IV Azactam and vanco Blood cx no growth stable Multiple pressure ulcers in sacrum/ B/L LE has been stable Continue daily wound care Chronic Anemia Hb 8.8 Continue monitor CBC Stable Chronic systolic/diastolic HF Asymptomatic. Last Echo in Mar 2017 showed EF of 55-60%, mild concentric LVH, left atrium severely dilated received lasix 80mg TID Will discharge on lasix 160mg BID Continue 1L fluid restriction continue monitor BMP twice weekly HYPOKALEMIA K 3.5 K replaced Monitor BMP DM II: Hgb a1c of 7.7 in May 2017 On Levemir subq Continue Insulin coverage Continue monitor BS Chronic A Fib: Rate is controlled Continue coumadin INR 1.9 Continue monitor lNR BART on CKD Stage IV: Creatine on admission 2.7 Baseline GFR ~30, Cr 2.4 Creatine 2.05 today Continue monitor BMP Stable H/o R DVT/PE: Continue Coumadin INR 1.9 HTN: Stable Continue home meds Hypothyroidism: Levothyroxine increased to 37.5 Stable DVT px Continue Coumadin INR 1.9 CODE STATUS FULL CODE DISPOSITION Will discharge home today Total time spent on discharge = 35 minutes This includes examination of the patient, discharge planning, medication reconciliation, and communication with other providers. Discharge Instructions Discharge Instructions Date of Service Sep 04, 2017. Admission Reason for Admission: Arf (Acute Renal Failure) Discharge Discharge Diagnosis / Problem: Altered mental status ? Bilateral lower extremity swelling,b/l LE wound Discharge Goals Goal(s): Decrease discomfort, Improve function, Improve disease control Activity Recommendations Activity Limitations: resume your previous activity (as tolerated) . Instructions / Follow-Up Instructions / Follow-Up Follow up with your provider at [facility] Lasix increased to 160mg twice daily On Fluid restriction to 1L daily Check BMP on Continue Coumadin 3 mg daily Check INR Fall precaution Continue physical therapy and Occupational therapy Continue daily wound care Follow up with the wound care clinic Continue IV azactam and Vanco for another 5 days Monitor blood sugar and titrate insulin as needed Current Hospital Diet Patient's current hospital diet: Diabetes Type 2 Diet Discharge Diet Recommended Diet: Diabetes Type 2 Diet Pending Studies Studies pending at discharge: no Laboratory Results Hemoglobin A1c Test 07/20/17 04:15 Range/Units Estimated Average Glucose 169 mg/dl Hemoglobin A1c 7.5 H 4.5-5.6 % Lipid Panel Test 06/22/17 05:15 Range/Units Triglycerides Level 118 0-150 mg/dl Cholesterol Level 60 0-200 mg/dl HDL Cholesterol 21 mg/dl Cholesterol/HDL Ratio 2.9 LDL Cholesterol, Calculated 15 mg/dl Medical Emergencies . Who to Call and When: Medical Emergencies: If at any time you feel your situation is an emergency, please call 911 immediately. . Non-Emergent Contact Non-Emergency issues call your: Primary Care Provider Call Non-Emergent contact if: you have any medication questions . . "Provider Documentation" section prepared by Genesis Salazar. . VTE Core Measure Inpt VTE Proph given/why not?: Warfarin (Coumadin) Signed: Signed: The status of this report is Draft * If report status is Draft, the document has not been finalized by the responsible provider. [facility] HospitalRoberta arriaza
[2017-09-05] MEDS ORDERED: VANCOMYCIN TROUGH ONE (01:30)
== END 2017-09-04 16:20 | DRG 682 ==
LOC: EDBD 18:18 → C.EDB 18:20 → C.MS2W 21:12 → ENRESERV 21:35
PROVIDERS: ADMIT Internal Medicine; ATTEND Internal Medicine
DX: N17.9 Acute kidney failure, unspecified (principal); G93.40 Encephalopathy, unspecified; I50.32 Chronic diastolic (congestive) heart failure; Z68.43 Body mass index [BMI] 50.0-59.9, adult; E87.6 Hypokalemia; N18.4 Chronic kidney disease, stage 4 (severe); R41.82 Altered mental status, unspecified; I25.10 Atherosclerotic heart disease of native coronary artery without angina pectoris; I48.2 Chronic atrial fibrillation; F32.9 Major depressive disorder, single episode, unspecified; E11.9 Type 2 diabetes mellitus without complications; E66.01 Morbid (severe) obesity due to excess calories; E78.5 Hyperlipidemia, unspecified; G47.30 Sleep apnea, unspecified; Z86.711 Personal history of pulmonary embolism; Z90.49 Acquired absence of other specified parts of digestive tract; Z79.4 Long term (current) use of insulin; Z79.01 Long term (current) use of anticoagulants

== ENCOUNTER → 2017-08-29 | Outpatient (CLI) | payer OTHER ==
[~2017-08-29] MED LIST changes: +ACET-1311 PO; +CMD/25 PO; +CMD3 PO; +CMD4 PO; +EFFSR/75 PO; +FNTTP25 TD; +FRS/40 PO; +LEVO50TA6 PO; +MCTP EXT; +TAMS0.4C38 PO; +[UNRECOGNIZED DRUG - CODE] IVF
[2017-08-29 09:43] LABS: BLOOD UREA NITROGEN 73 mg/dl (7-18); CALCIUM 7.8 mg/dl (8.5-10.1); CARBON DIOXIDE 26 mmol/L (21-32); CREATININE 2.94 mg/dl (0.60-1.40); GLUCOSE 105 mg/dl (70-99); SODIUM 135 mmol/L (136-145)
== END ==
LOC: C.LABUPNIT 07:41
PROVIDERS: ATTEND Nurse Practitioner Family
DX: N18.4 Chronic kidney disease, stage 4 (severe) (principal); B95.61 Methicillin susceptible Staphylococcus aureus infection as the cause of diseases classified elsewhere

== ENCOUNTER → 2017-09-05 | Outpatient (CLI) | payer OTHER ==
[~2017-09-05] MED LIST changes: -ACET-1256 PO; +ACET-1311 PO; -BISA10SU38 PR; -CMD2 PO; +CMD3 PO; -DEXT40GE PO; -DRGTP25 TD; -EFF75 PO; +EFFSR/75 PO; -FLM4 PO; +FNTTP25 TD; +FRS/40 PO; -GLGKIT; -LEVO25TA PO; +LEVO50TA6 PO; -LSX80 PO; +MCTP EXT; -NYSP EXT; +TAMS0.4C38 PO; +[UNRECOGNIZED DRUG - CODE] IVF
[2017-09-05 08:58] LABS: BASO ABS # 0.07 K/uL (0-0.2); EOS % 7.1 %; EOS ABS # 0.51 K/uL (0-0.5); HEMATOCRIT 28.5 % (42-52); HEMOGLOBIN 8.6 g/dL (14.0-18.0); IG# 0.02 K/uL (0.00-0.02); LYMPH ABS # 1.01 K/uL (1.2-3.4); MEAN CELL VOLUME 84.3 fL (80-100); MEAN CORPUSCULAR HEMOGLOBIN 25.4 pg (25-34); MEAN CORPUSCULAR HGB CONC 30.2 g/dl (32-36); MEAN PLATELET VOLUME 9.7 fL (7.4-10.4); MONO % 7.7 %; MONO ABS # 0.56 K/uL (0.11-0.59); NEUT % 69.9 %; NEUT ABS # 5.06 K/uL (1.4-6.5); PLATELET COUNT 199 K/uL (130-400); RED CELL DISTRIBUTION WIDTH CV 18.2 % (11.5-14.5); RED CELL DISTRIBUTION WIDTH SD 56.1 fL (36.4-46.3); WHITE BLOOD COUNT 7.23 K/uL (4.8-10.8)
[2017-09-05 09:07] LABS: ALBUMIN 2.2 gm/dl (3.4-5.0); ALT/SGPT 9 U/L (12-78); BLOOD UREA NITROGEN 60 mg/dl (7-18); CALCIUM 8.1 mg/dl (8.5-10.1); CARBON DIOXIDE 26 mmol/L (21-32); CREATININE 2.01 mg/dl (0.60-1.40); GLUCOSE 155 mg/dl (70-99); POTASSIUM 3.1 mmol/L (3.5-5.1); SODIUM 138 mmol/L (136-145)
[2017-09-05 09:10] LABS: ALKALINE PHOSPHATASE 155 U/L (45-117); AST/SGOT 14 U/L (15-37); INR 1.8 (0.9-1.1); TOTAL PROTEIN 7.9 gm/dl (6.4-8.2)
== END ==
LOC: C.LABUPNIT 08:44
PROVIDERS: ATTEND Nurse Practitioner Family
DX: N18.4 Chronic kidney disease, stage 4 (severe) (principal); I48.2 Chronic atrial fibrillation

== ENCOUNTER → 2017-09-07 | Outpatient (CLI) | payer OTHER ==
[2017-09-07 08:47] LABS: BLOOD UREA NITROGEN 57 mg/dl (7-18); CARBON DIOXIDE 24 mmol/L (21-32); CREATININE 1.94 mg/dl (0.60-1.40); GLUCOSE 181 mg/dl (70-99); POTASSIUM 3.5 mmol/L (3.5-5.1); SODIUM 139 mmol/L (136-145)
[2017-09-07 09:43] LABS: INR 1.6 (0.9-1.1)
== END ==
LOC: C.LABUPNIT 08:16
PROVIDERS: ATTEND Nurse Practitioner Family
DX: R79.1 Abnormal coagulation profile (principal); E83.39 Other disorders of phosphorus metabolism

== ENCOUNTER → 2017-09-08 | Outpatient (CLI) | payer OTHER | LOC: C.LABUPNIT 08:30 | PROVIDERS: ATTEND Nurse Practitioner Family | DX: R69 Illness, unspecified (principal); B95.61 Methicillin susceptible Staphylococcus aureus infection as the cause of diseases classified elsewhere ==

== ENCOUNTER → 2017-09-11 | Outpatient (CLI) | payer OTHER ==
[2017-09-11 08:54] LABS: HEMATOCRIT 28.1 % (42-52); HEMOGLOBIN 8.4 g/dL (14.0-18.0); MEAN CELL VOLUME 84.6 fL (80-100); MEAN CORPUSCULAR HEMOGLOBIN 25.3 pg (25-34); MEAN CORPUSCULAR HGB CONC 29.9 g/dl (32-36); MEAN PLATELET VOLUME 9.9 fL (7.4-10.4); PLATELET COUNT 220 K/uL (130-400); RED CELL DISTRIBUTION WIDTH CV 18.5 % (11.5-14.5); RED CELL DISTRIBUTION WIDTH SD 57.8 fL (36.4-46.3); WHITE BLOOD COUNT 6.16 K/uL (4.8-10.8)
[2017-09-11 09:04] LABS: INR 1.8 (0.9-1.1)
== END ==
LOC: C.LAB 08:19
PROVIDERS: ATTEND Nurse Practitioner Family
DX: E11.49 Type 2 diabetes mellitus with other diabetic neurological complication (principal); I73.9 Peripheral vascular disease, unspecified; Z86.31 Personal history of diabetic foot ulcer

== ENCOUNTER → 2017-09-14 | Outpatient (CLI) | payer OTHER ==
[2017-09-14 08:43] LABS: INR 3.5 (0.9-1.1)
[2017-09-14 08:44] LABS: BLOOD UREA NITROGEN 54 mg/dl (7-18); CARBON DIOXIDE 23 mmol/L (21-32); CREATININE 2.13 mg/dl (0.60-1.40); GLUCOSE 177 mg/dl (70-99); POTASSIUM 3.7 mmol/L (3.5-5.1); SODIUM 140 mmol/L (136-145)
[2017-09-14 08:45] LABS: PHOSPHORUS 3.7 mg/dl (2.5-4.9)
== END ==
LOC: C.LABUPNIT 08:06
PROVIDERS: ATTEND Nurse Practitioner Family
DX: N18.4 Chronic kidney disease, stage 4 (severe) (principal)

== ENCOUNTER → 2017-09-15 | Outpatient (CLI) | payer OTHER ==
[2017-09-15 08:53] LABS: INR 3.3 (0.9-1.1)
== END ==
LOC: C.LABUPNIT 08:02
PROVIDERS: ATTEND Nurse Practitioner Family
DX: N18.4 Chronic kidney disease, stage 4 (severe) (principal)

== ENCOUNTER → 2017-09-16 | Outpatient (CLI) | payer OTHER ==
[2017-09-16 07:00] LABS: INR 2.8 (0.9-1.1)
== END | disposition home or self-care (01) ==
LOC: C.LABUPNIT 10:42
PROVIDERS: ATTEND Nurse Practitioner Family
DX: Z86.711 Personal history of pulmonary embolism (principal)

== ENCOUNTER → 2017-09-18 | Outpatient (CLI) | payer OTHER ==
[2017-09-18 08:43] LABS: HEMATOCRIT 28.6 % (42-52); HEMOGLOBIN 8.6 g/dL (14.0-18.0); MEAN CELL VOLUME 84.4 fL (80-100); MEAN CORPUSCULAR HEMOGLOBIN 25.4 pg (25-34); MEAN CORPUSCULAR HGB CONC 30.1 g/dl (32-36); MEAN PLATELET VOLUME 10.1 fL (7.4-10.4); PLATELET COUNT 215 K/uL (130-400); RED CELL DISTRIBUTION WIDTH CV 18.5 % (11.5-14.5); RED CELL DISTRIBUTION WIDTH SD 57.4 fL (36.4-46.3); WHITE BLOOD COUNT 6.65 K/uL (4.8-10.8)
[2017-09-18 08:49] LABS: INR 3.2 (0.9-1.1)
== END ==
LOC: C.LABUPNIT 08:17
PROVIDERS: ATTEND Nurse Practitioner Family
DX: N18.4 Chronic kidney disease, stage 4 (severe) (principal)

== ENCOUNTER → 2017-09-20 | Outpatient (CLI) | payer OTHER ==
[2017-09-20 09:57] LABS: INR 2.8 (0.9-1.1)
== END ==
LOC: C.LABUPNIT 09:02
PROVIDERS: ATTEND Nurse Practitioner Family
DX: Z51.81 Encounter for therapeutic drug level monitoring (principal); R79.1 Abnormal coagulation profile; Z79.2 Long term (current) use of antibiotics

== ENCOUNTER → 2017-09-21 | Outpatient (CLI) | payer OTHER ==
[2017-09-21 09:48] LABS: INR 2.7 (0.9-1.1)
[2017-09-21 09:50] LABS: BLOOD UREA NITROGEN 57 mg/dl (7-18); CARBON DIOXIDE 26 mmol/L (21-32); CREATININE 2.09 mg/dl (0.60-1.40); GLUCOSE 123 mg/dl (70-99); POTASSIUM 3.8 mmol/L (3.5-5.1); SODIUM 140 mmol/L (136-145)
== END ==
LOC: C.LABUPNIT 09:08
PROVIDERS: ATTEND Nurse Practitioner Family
DX: Z51.81 Encounter for therapeutic drug level monitoring (principal); R79.1 Abnormal coagulation profile; R79.89 Other specified abnormal findings of blood chemistry; Z79.2 Long term (current) use of antibiotics

== ENCOUNTER → 2017-09-23 | Outpatient (CLI) | payer OTHER ==
[2017-09-23 06:48] LABS: INR 2.2 (0.9-1.1)
== END | disposition home or self-care (01) ==
LOC: C.LABUPNIT 12:57
PROVIDERS: ATTEND Nurse Practitioner Family
DX: I10 Essential (primary) hypertension (principal)